=== PATIENT | female | born 1985 | race African-American/Black ===

== ENCOUNTER 2018-01-03 11:06 | Emergency (ER) | payer OTHER ==
[2018-01-03] MEDS ORDERED: METHYLPREDNISOLONE 125 MG INJ ONE (12:24)
[2018-01-03] MEDS ORDERED: LORAZEPAM 1 MG TABLET ONE (12:24)
[2018-01-03] MEDS ORDERED: MECLIZINE HCL 12.5 MG TAB ONE (12:24)
[2018-01-03] MEDS ORDERED: NA CHLORIDE 0.9% 1,000 ML ONE (12:25)
[2018-01-03 12:39] LABS: Absolute Monocytes 0.4 K/uL (0.1-1.3); Absolute Neutrophil 3.3 K/uL (1.8-8.0); Basophils % 0.8 % (0-1.3); Eosinophils % 1.5 % (0-4.4); Hematocrit 39.7 % (36.0-45.0); Lymphocytes % 34.4 % (15.3-44.8); MCH 28.7 pg (27.0-35.0); MPV 7.8 fL (7.6-11.3); Monocytes % 6.8 % (3.3-12.3); RBC Red Blood Cell Count 4.56 M/uL (3.86-4.86)
[2018-01-03 12:57] LABS: Potassium 4.1 mEq/L (3.6-5.0)
[2018-01-03 13:03] LABS: Protime INR 1.14
[2018-01-03 13:04] LABS: Albumin 3.5 g/dL (3.2-5.5); Bilirubin Direct 0.2 mg/dL (0-0.2); Bilirubin Total 0.8 mg/dL (0.3-1.2); Magnesium 1.6 mg/dL (1.8-2.5); Protein, Total 7.7 g/dL (6.0-8.3)
[2018-01-03] MEDS ORDERED: MAGNESIUM SULFATE 1 gm IVPB 1 GM/100 ML BAG IV ONE (13:15)
[2018-01-03] MEDS ORDERED: DIPHENHYDRAMINE 50 MG/ML VIAL ONE (13:47)
[2018-01-03] MEDS ORDERED: KETOROLAC 30 MG/ML INJ ONE (13:48)
[2018-01-03 14:21] LABS: Urine Blood NEGATIVE (NEG); Urine Glucose NEGATIVE (NEG); Urine Protein TRACE (NEG); Urine Specific Gravity 1.015 (1.005-1.030); Urine pH 8.5 (5.0-7.0)
--- NOTE | 2018-01-03 15:12 | EDPHYS ---
Physician Documentation [facility] Name: Alie Gee Age: 32 yrs Sex: Female : 1985 Arrival Date: 01/03/2018 Time: 11:10 Bed 19 Private MD: Karel Davis E ED Physician Behzad Valencia HPI: 01/03 11:56 This 32 yrs old Black Female presents to ER via Wheelchair with complaints of Chest ma2 Pain. 11:56 The patient or guardian reports chest pain that is located primarily in the anterior ma2 chest wall. The pain does not radiate. Associated signs and symptoms: Pertinent positives: vertigo . The chest pain is described as sharp. Duration: The patient or guardian reports a single episode, that is still ongoing, constant for 2 months, chest pain is only when she turn hear to the right, . The patient has experienced similar episodes in the past. hx of bipolar SP, and vertigo here with vertigo . 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 - Social history:: Smoking status: Patient uses tobacco products, smokes one-half pack cigarettes per day, Patient/guardian denies using alcohol, street drugs, The patient lives with family. - Ebola Screening: : Patient negative for fever greater than or equal to 101.5 degrees Fahrenheit, and additional compatible Ebola Virus Disease symptoms Patient denies exposure to infectious person Patient denies travel to an Ebola-affected area in the 21 days before illness onset No symptoms or risks identified at this time. - Family history:: not pertinent. ROS: 11:56 Cardiovascular: Positive for chest pain. ma2 11:56 MS/extremity: Positive for contusion, swelling, Negative for 11:56 All other systems are negative. 16:09 Eyes: Negative for injury, pain, redness, and discharge. ma2 Exam: 11:56 Constitutional: This is a well developed, well nourished patient who is awake, alert, ma2 and in no acute distress. Head/Face: Normocephalic, atraumatic. Chest/axilla: Normal chest wall appearance and motion. Nontender with no deformity. No lesions are appreciated. Cardiovascular: Regular rate and rhythm with a normal S1 and S2. No gallops, murmurs, or rubs. Normal PMI, no JVD. No pulse deficits. Respiratory: Lungs have equal breath sounds bilaterally, clear to auscultation and percussion. No rales, rhonchi or wheezes noted. No increased work of breathing, no retractions or nasal flaring. Abdomen/GI: Soft, non-tender, with normal bowel sounds. No distension or tympany. No guarding or rebound. No evidence of tenderness throughout. MS/ Extremity: Pulses equal, no cyanosis. Neurovascular intact. Full, normal range of motion. Neuro: Awake and alert, GCS 15, oriented to person, place, time, and situation. Cranial nerves II-XII grossly intact. Motor strength 5/5 in all extremities. Sensory grossly intact. Cerebellar exam normal. Normal gait. Vital Signs: 11:25 BP 105 / 80; Pulse 100; Resp 18 S; Temp 98.2; Pulse Ox 98% on R/A; Weight 117.93 kg; iw Height 5 ft. 6 in. (167.64 cm); Pain 8/10; 12:48 BP 114 / 52; Pulse 82; Resp 19; Pulse Ox 99% on R/A; em 13:15 BP 110 / 64; Pulse 93; Resp 18; Pulse Ox 100% on R/A; Pain 7/10; em 14:34 BP 126 / 61; Pulse 84; Resp 16; Pulse Ox 99% on R/A; Pain 5/10; em 15:35 BP 96 / 61; Pulse 88; Resp 18; Pulse Ox 97% on R/A; em 11:25 Body Mass Index 41.96 (117.93 kg, 167.64 cm) iw MDM: 11:42 Patient medically screened. ma2 11:56 Differential diagnosis: abnormal EKG, anxiety, chest wall pain, Cholelithiasis ma2 costochondritis, gastritis, gastroesophageal reflux disease (GERD), myocarditis, peptic ulcer disease, vertigo. HEART Score: History: Slightly Suspicious (0), ECG: Normal (0), Age: > or = 65 years (2), Risk Factors: > or = 3 Risk factors for atherosclerotic disease (2), Troponin:. 15:09 Data reviewed: vital signs, nurses notes, EMS record, retirement records. ED course: ana still having vertigo despite medication will admit to observation. 16:09 ED course: I attempted to Admit to Dr. Gunn for symptomatic BPV, Dr. Gunn saw the ana patient and her symptoms has resolved, able to walk . 01/03 11:55 Order name: Basic Metabolic Panel; Complete Time: 13:11 ak01/03 11:55 Order name: BNP; Complete Time: 13:11 ak01/03 11:55 Order name: CBC with Diff; Complete Time: 12:58 01/03 11:55 Order name: LFT's; Complete Time: 13:11 ak01/03 11:55 Order name: Magnesium; Complete Time: 13:11 01/03 11:55 Order name: PT-INR; Complete Time: 13:11 01/03 11:55 Order name: Ptt, Activated; Complete Time: 13:11 01/03 11:55 Order name: Troponin (emerg Dept Use Only); Complete Time: 14:23 01/03 13:30 Order name: Urine Dipstick--Ancillary (enter results); Complete Time: 14:23 01/03 13:30 Order name: Urine --Ancillary (enter results); Complete Time: 14:23 01/03 11:55 Order name: EKG; Complete Time: 11:56 01/03 11:55 Order name: Cardiac monitoring; Complete Time: 12:13 01/03 11:55 Order name: EKG - Nurse/Tech; Complete Time: 12:13 01/03 11:55 Order name: IV Saline Lock; Complete Time: 12:13 01/03 11:55 Order name: Labs collected and sent; Complete Time: 12:13 ak01/03 11:55 Order name: O2 Per Protocol; Complete Time: 12:13 01/03 11:55 Order name: O2 Sat Monitoring; Complete Time: 12:13 01/03 11:55 Order name: Urine Dipstick-Ancillary (obtain specimen); Complete Time: 12:37 ma2 Administered Medications: 12:37 Drug: NS 0.9% 1000 ml Route: IV; Rate: 1 bolus; Site: right antecubital; iw 16:00 Follow up: IV Status: Completed infusion; IV Intake: 1000ml em 12:37 Drug: Ativan 2 mg Route: PO; iw 14:00 Follow up: Response: No adverse reaction em 12:37 Drug: Meclizine 50 mg Route: PO; iw 14:01 Follow up: Response: No adverse reaction em 12:37 Drug: MethylPrednisoLONE 125 mg Route: IVP; Site: right antecubital; iw 14:01 Follow up: Response: No adverse reaction em 13:19 Drug: Magnesium Sulfate 1 grams Route: IVPB; Infused Over: 1 hrs; Site: right em antecubital; 16:00 Follow up: Response: No adverse reaction; IV Intake: 100ml em 16:00 Follow up: IV Status: Completed infusion; IV Intake: 100ml em 13:50 Drug: TORadol 30 mg Route: IVP; Site: right antecubital; iw 14:41 Follow up: Response: No adverse reaction; Pain is decreased em 13:50 Drug: Benadryl 25 mg Route: IVP; Site: right antecubital; iw 14:40 Follow up: Response: No adverse reaction em Disposition: 16:09 Chart complete. ma2 Disposition: 01/03/18 16:13 Discharged to Home. Impression: Other peripheral vertigo, left ear. - Condition is Stable. - Discharge Instructions: Vertigo, [id number]. - Prescriptions for Meclizine 25 mg Oral Tablet - take 1 tablet by ORAL route every 8 hours As needed; 30 tablet. - Medication Reconciliation Form, Thank You Letter, Antibiotic Education, Prescription Opioid Use form. - Follow up: Private Physician; When: Tomorrow; Reason: Continuance of care. - Problem is new. - Symptoms are resolved. Signatures: Dispatcher [employer] Dick Barron, MANAGER FLOOR MANAGER FLOOR em Ashli Torres, RN RN iw Behzad Valencia MD MD ma2 Corrections: (The following items were deleted from the chart) 16:12 15:11 Hospitalization Ordered by Jez Prezas DO for Observation. Preliminary ma2 diagnosis is Benign paroxysmal vertigo, left ear. Bed requested for Telemetry/MedSurg (observation). Status is Observation. Condition is Stable. Problem is new. Symptoms have improved. UTI on Admission? No. ma2 16:40 16:13 01/03/2018 16:13 Discharged to Home. Impression: Other peripheral vertigo, left em ear. Condition is Stable. Forms are Medication Reconciliation Form, Thank You Letter, Antibiotic Education, Prescription Opioid Use. Follow up: Private Physician; When: Tomorrow; Reason: Continuance of care. Problem is new. Symptoms are resolved. ma2
--- NOTE | 2018-01-03 15:12 | ER ---
Nurse's Notes [facility] Name: Alie Gee Age: 32 yrs Sex: Female : 1985 Arrival Date: 01/03/2018 Time: 11:10 Bed 19 Private MD: Karel Davis E Diagnosis: Other peripheral vertigo, left ear Presentation: 01/03 11:20 Presenting complaint: Patient states: I was diagnosed with vertigo 3 months ago, now iw her head feels "full", hard to breathe, feels pressure in frontal are, stabbing pain in chest, hears humming on left ear, states that her doctor thinks she has a tumor but is supposed to have an MRI on January 08. Transition of care: patient was not received from another setting of care. Onset of symptoms was January 03, 2018. Risk Assessment: Do you want to hurt yourself or someone else? Patient reports no desire to harm self or others. Initial Sepsis Screen: Does the patient meet any 2 criteria? No. Patient's initial sepsis screen is negative. Does the patient have a suspected source of infection? No. Patient's initial sepsis screen is negative. Care prior to arrival: None. 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 - Social history:: Smoking status: Patient uses tobacco products, smokes one-half pack cigarettes per day, Patient/guardian denies using alcohol, street drugs, The patient lives with family. - Ebola Screening: : Patient negative for fever greater than or equal to 101.5 degrees Fahrenheit, and additional compatible Ebola Virus Disease symptoms Patient denies exposure to infectious person Patient denies travel to an Ebola-affected area in the 21 days before illness onset No symptoms or risks identified at this time. - Family history:: not pertinent. Screenin:14 Abuse screen: Denies threats or abuse. Denies injuries from another. Nutritional iw screening: No deficits noted. Tuberculosis screening: No symptoms or risk factors identified. 14:02 Fall Risk None identified. em Assessment: 12:40 General: Appears in no apparent distress. uncomfortable, Behavior is cooperative, flat. em Pain: Complains of pain in chest Pain radiates to right sternocleidomastoid Pain currently is 8 out of 10 on a pain scale. Pain began 1 day ago. Neuro: Level of Consciousness is awake, alert, obeys commands, Oriented to person, place, time, situation. Cardiovascular: Capillary refill < 3 seconds Patient's skin is warm and dry. Respiratory: Airway is patent Respiratory effort is even, unlabored, Respiratory pattern is regular, symmetrical. GI: Abdomen is obese. : No signs and/or symptoms were reported regarding the genitourinary system. EENT: No signs and/or symptoms were reported regarding the EENT system. Derm: Skin is intact, Skin is pink, warm \\T\\ dry. Musculoskeletal: Range of motion: intact in all extremities. 12:55 Reassessment: I agree with above assessment by Dick Hernandez LVN. iw 13:15 Reassessment: Patient appears in no apparent distress at this time. Patient and/or em family updated on plan of care and expected duration. Pain level reassessed. Dr. Valencia at bedside discussing POC Patient states symptoms have not improved. 13:25 Reassessment: Patient appears in no apparent distress at this time. Patient and/or em family updated on plan of care and expected duration. Pain level reassessed. Patient is alert, oriented x 3, equal unlabored respirations, skin warm/dry/pink. ambulated to restroom, tolerated well. 14:30 Reassessment: Patient appears in no apparent distress at this time. Patient and/or em family updated on plan of care and expected duration. Pain level reassessed. Patient is alert, oriented x 3, equal unlabored respirations, skin warm/dry/pink. rates pain 5/10, was resting comfortably, eyes closed and difficult to arouse Patient states feeling better. 15:30 Reassessment: Patient appears in no apparent distress at this time. Patient and/or em family updated on plan of care and expected duration. Pain level reassessed. Patient is alert, oriented x 3, equal unlabored respirations, skin warm/dry/pink. ambulated to restroom, tolerated well. 15:50 Reassessment: Patient appears in no apparent distress at this time. Patient and/or em family updated on plan of care and expected duration. Pain level reassessed. Patient is alert, oriented x 3, equal unlabored respirations, skin warm/dry/pink. Dr. Gunn at bedside discussing POC. 16:15 Reassessment: Patient appears in no apparent distress at this time. pt upset about not em having MRI, refused orthostatics. Vital Signs: 11:25 BP 105 / 80; Pulse 100; Resp 18 S; Temp 98.2; Pulse Ox 98% on R/A; Weight 117.93 kg; iw Height 5 ft. 6 in. (167.64 cm); Pain 8/10; 12:48 BP 114 / 52; Pulse 82; Resp 19; Pulse Ox 99% on R/A; em 13:15 BP 110 / 64; Pulse 93; Resp 18; Pulse Ox 100% on R/A; Pain 7/10; em 14:34 BP 126 / 61; Pulse 84; Resp 16; Pulse Ox 99% on R/A; Pain 5/10; em 15:35 BP 96 / 61; Pulse 88; Resp 18; Pulse Ox 97% on R/A; em 11:25 Body Mass Index 41.96 (117.93 kg, 167.64 cm) iw ED Course: 11:10 Patient arrived in ED. mr 11:10 Karel Davis MD is Private Physician. mr 11:24 Triage completed. iw 11:25 Arm band placed on. iw 11:42 Behzad Valencia MD is Attending Physician. ma2 11:57 Dick Hernandez LVN is Primary Nurse. em 12:13 Initial lab(s) drawn, by me, sent to lab. Inserted saline lock: 20 gauge in right iw antecubital area, using aseptic technique. Blood collected. Patient maintains SpO2 saturation greater than 95% on room air. 12:17 EKG done, by ED staff, reviewed by Behzad Valencia MD. mh5 12:40 Patient has correct armband on for positive identification. Bed in low position. Call em light in reach. scrap drop engineer on. Pulse ox on. NIBP on. 14:02 No provider procedures requiring assistance completed. em 15:10 Jez Gunn DO is Hospitalizing Provider. ma2 16:30 IV discontinued, intact, bleeding controlled, No redness/swelling at site. Pressure em dressing applied. Administered Medications: 12:37 Drug: NS 0.9% 1000 ml Route: IV; Rate: 1 bolus; Site: right antecubital; iw 16:00 Follow up: IV Status: Completed infusion; IV Intake: 1000ml em 12:37 Drug: Ativan 2 mg Route: PO; iw 14:00 Follow up: Response: No adverse reaction em 12:37 Drug: Meclizine 50 mg Route: PO; iw 14:01 Follow up: Response: No adverse reaction em 12:37 Drug: MethylPrednisoLONE 125 mg Route: IVP; Site: right antecubital; iw 14:01 Follow up: Response: No adverse reaction em 13:19 Drug: Magnesium Sulfate 1 grams Route: IVPB; Infused Over: 1 hrs; Site: right em antecubital; 16:00 Follow up: Response: No adverse reaction; IV Intake: 100ml em 16:00 Follow up: IV Status: Completed infusion; IV Intake: 100ml em 13:50 Drug: TORadol 30 mg Route: IVP; Site: right antecubital; iw 14:41 Follow up: Response: No adverse reaction; Pain is decreased em 13:50 Drug: Benadryl 25 mg Route: IVP; Site: right antecubital; iw 14:40 Follow up: Response: No adverse reaction em Intake: 16:00 IV: 1000ml; Total: 1000ml. em 16:00 IV: 100ml; Total: 1100ml. em 16:00 IV: 100ml; Total: 1200ml. em Outcome: 15:11 Decision to Hospitalize by Provider. ma2 16:13 Discharge ordered by MD. ma2 16:31 Discharged to home ambulatory. em 16:31 Condition: good 16:31 Discharge instructions given to patient, Instructed on discharge instructions, follow up and referral plans. Demonstrated understanding of instructions, follow-up care, medications, Prescriptions given X 1. 16:40 Patient left the ED. em Signatures: Lena Carcamo, Dick, MANAGER PROCUREMENT MANAGER PROCUREMENT em Ashli Torres, TOLU RN Lena Franks [facility] Behzad Valencia MD MD ma2 Corrections: (The following items were deleted from the chart) 16:04 14:41 Reassessment: Patient appears in no apparent distress at this time. em em
--- NOTE | 2018-01-04 12:46 | EKG ---
Test Date: 2018-01-03 Test Time: 13:46:19 Support Service Tech: JIMENEZ MEASUREMENT RESULTS: Intervals: Rate: 82 ID: [id number] QRSD: 86 QT: 386 QTc: 450 Jeffrey: P: 60 ID: [id number] QRS: 63 T: 33 INTERPRETIVE STATEMENTS: Normal sinus rhythm Normal ECG Compared to ECG 01/03/2018 12:02:56 No significant changes Electronically Signed On 01-04-18 12:43:48 CDT by Tito Ricardo
--- NOTE | 2018-01-04 12:46 | EKG ---
Test Date: 2018-01-03 Test Time: 12:02:56 Materials And Corrosion Engineer: JIMENEZ MEASUREMENT RESULTS: Intervals: Rate: 90 WI: 146 QRSD: 82 QT: 362 QTc: 442 Gonzales: P: 64 WI: 146 QRS: 62 T: 22 INTERPRETIVE STATEMENTS: Normal sinus rhythm Normal ECG Compared to ECG 09/03/2015 18:38:22 No significant changes Electronically Signed On 01-04-18 12:43:50 CDT by Tito Ricardo
== END 2018-01-03 16:40 | disposition home or self-care (01) ==
LOC: ER 11:06
DX: H81.392 Other peripheral vertigo, left ear (principal); F17.210 Nicotine dependence, cigarettes, uncomplicated; F31.9 Bipolar disorder, unspecified; F20.9 Schizophrenia, unspecified
CPT/HCPCS: 36415; 80048; 80076; 81003; 81025; 83735; 83880; 84484; 85025; 85610; 85730; 93005; 96361; 96365; 96366; 96375; 99285; J2930; J3475; J7030

== ENCOUNTER 2021-11-25 14:48 | Emergency (ER) | payer OTHER ==
--- OUTSIDE RECORDS SUMMARY | 2021-11-25 14:52 | XMS REPORT | Continuity of Care Document ---
:1985 Author Organization [facility] t Address [address] [place] [address] Care Team Providers Name Role Phone Pcp, Does Not Have A Primary Care Physician Deuce WHITMORE Attending Clinician Unavailable Haim RICHARD, S Attending Clinician Simi RICHARD L Attending Clinician Mayra MENDEZ Attending Clinician Unavailable Payers Payer Name Policy Type Policy Number Effective Date Expiration Date Deuce paniagua [facility] [id number] 2017 00:00:00 Problems Condition Condition Condition Status Onset Resolution Last Treating Co mments Source Name Details Category Date Date Treatment Clinician Date Hemorrhagi Hemorrhagi Disease Active U nivers c ovarian c ovarian 3-30 ity of cyst cyst 00:00: [place] [address] Medical Branch Obesity Obesity Disease Active Univers (BMI (BMI 4-27 ity of 30-39.9) 30-39.9) 00:00: [place] [facility] Fibromyalg Fibromyalg Disease Active U nivers ia ia 3-10 ity of syndrome syndrome 00:00: [place] [address] Medical Branch 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 00:00: [place] virus 2) virus 2) 00 Medica l infection infection Bran ch Muscle Muscle Disease Active 2019-08 Univers spasms of spasms of 1-13 ity of both lower [place] extremit[place] extremitie 00 Me dical s s Branch Need for Need for Disease Active 2020-0 Unive rs prophylact prophylact 8- it y of ic ic 00:00: [place] vaccinatio vaccinatio 00 Me dical n against n against Bran ch hepatitis hepatitis A and A and hepatitis hepatitis B B Virilizati Virilizati Disease Active 2020-0 U nivers on on 03-13 ity of 00:00: [place] [facility] Shortness Shortness Disease Active 2020-0 Uni vers of breath of breath 5-01 ity of 00:00: [place] [facility] Acneiform Acneiform Disease Active 2020-0 Uni vers rash rash 4-21 ity of 00:00: [place] [facility] Current Current Disease Active 2020-0 Univers smoker smoker 3-27 ity of 00:00: [place] [facility] Medication Medication Disease Active 2020-0 U nivers care plan care plan 3-24 ity of discussed discussed 00:00: Donna edwards with with 00 Medical patient patient Branch Former Former Disease Active 2020-0 Univers smoker smoker 3-20 ity of 00:00: [place] 00 Medical Branch Menetrier' Menetrier' Disease Active 2020-0 U nivers s disease s disease 3-20 ity of 00:00: [place] [facility] 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, coma, 2-01 ity of chronic chronic 00:00: [place] 00 Medical Branch Right Right Disease Active 2020-0 Univers lower lower 1-22 ity of quadrant quadrant 00:00: [place] abdominal abdominal 00 Medi norma pain pain Branch Bronchitis Bronchitis Disease Active 2020-0 U nivers 1-22 ity of 00:00: [place] 00 Medical Branch Substernal Substernal Disease Active 2020-0 U nivers chest pain chest pain 1-22 it y of 00:00: [place] 00 Medical Branch Cysts of Cysts of Disease Active 2020-0 Unive rs both both 1-08 ity of ovaries ovaries 00:00: [place] 00 Medical Branch Primary Primary Disease Active 2020-0 Univers insomnia insomnia 1-03 ity of 00:00: [place] 00 Medical Branch Bipolar 1 Bipolar 1 Disease Active 2019 Uni vers disorder disorder 2-16 ity of 00:00: [place] 00 Medical Branch Nausea and Nausea and Disease Active 2019- U nivers vomiting vomiting 2-16 ity of in adult in adult 00:00: [place] patient patient 00 Medical Branch Anxiety Anxiety Disease Active 2018-08 Univers 2-16 ity of 00:00: [place] 00 Medical Branch Current Current Disease Active 2018-08 Univers moderate moderate 2-16 ity of episode of episode of [place] major major 00 Medical depressive depressive Br anch disorder, disorder, unspecifie unspecifie d whether d whether recurrent recurrent Cigarette Cigarette Disease Active 2018-08 Uni vers nicotine nicotine 2-16 ity of dependence dependence 00:[place] with other with other 00 Me dical nicotine-i nicotine-i Br anch nduced nduced disorder disorder Schizophre Schizophre Disease Active 2018-08 U nivers era with era with 2-16 ity of prominent prominent 00:[place] negative negative 00 Medica l symptoms symptoms Branch IVDU IVDU Disease Active 2018-08 Univers (intraveno (intraveno 2-16 it y of us drug us drug 00:00: [place] user) user) 00 Medical Branch Morbid Morbid Disease Active 2018-08 Univers obesity obesity 0-17 ity of with body with body 00:[place] mass index mass index 00 Me dical (BMI) of (BMI) of Branch 40.0 to 40.0 to 49.9 49.9 Allergies, Adverse Reactions, Alerts Allergy Allergy Status Severity Reaction(s) Onset Inactive Treating Comm ents Source Name Type Date Date Clinician NO KNOWN Drug Active Univers ALLERGIE Class ity of S [facility] Social History Social Habit Start Date Stop Date Quantity Comments Source History SDNE University o f Alcohol Frequency [facility] edical Branch History [facility] University o f Alcohol Std Drinks [facility] History [facility] University o f Alcohol Binge [place] [facility] History of tobacco Cigarette Smoker [facility] [place] [facility] Exposure to Unable to assess Univers ity of SARS-CoV-2 (event) [facility] Alcohol intake 2021-11-23 2021-11-23 Current drinker Unive rsity of 00:00:00 00:00:00 of alcohol [facility] (finding) [place] Alcohol Comment 2021-10-03 2021-10-03 every weekend Univer sity of 00:00:00 00:00:00 [facility] Tobacco Comment 2021-10-03 2021-10-03 Vape Universit y of 00:00:00 00:00:00 [facility] Cigarettes smoked 2017-08-27 2017-08-27 Univers ity of current (pack per 00:00:00 00:00:00 ) - Reported Branch Cigarette 2017-08-27 2017-08-27 University of pack-years 00:00:00 00:00:00 [facility] Tobacco use and 2017-08-27 2017-08-27 Current user Univers ity of exposure 00:00:00 00:00:00 [facility] Sex [birth year] Universit y of 00:00:00 00:00:00 [facility] Smoking Status Start Date Stop Date Source Current every day smoker 2017-08-27 00:00:00 Uni versity of [facility] Medications Ordered Filled Start Stop Current Ordering Indication Dosage Frequency Signature Comments Components Source Medication Medication Date Date Medication? Clinician (SIG) Name Name ketorolac No 30mg 30 mg, Unive rs (TORADOL) 11-24 Slow IV ity of injection 09:45: 09:19 Push, [place] 30 mg 00 :00 ONCE, 1 Medical dose, On [facility] 11/24/21 at 0445, Routine
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 11/24/21 at 0030, Routine ondansetron 2021- No 4mg 4 mg, Slow Univers (ZOFRAN 11-24 IV Push, ity of (PF)) 04:30: 03:45 ONCE, 1 [place] injection 4 00 :00 dose, On Medi norma mg Sat [place] 11/23/21 at 2330, UZMA FENTanyl PF 2021- No 50ug 50 mcg, Un anju (SUBLIMAZE 11-24- Slow IV ity o f (PF)) 04:30: 03:45 [place], [place] injection 00 :00 ONCE, 1 Medical 50 mcg dose, On Branch 11/23/21 at 2330, Routine iopamidol 2021- No [id number] 100mL 100 mL, Univers (ISOVUE 11-24 Intravenou ity o f 370-500 mL) 04:19: 04:19 s, ONCE, 1 [place] injection 00 :00 dose, On Medica l 100 mL Sat Branch 11/23/21 at 2330, Routine ketorolac Yes [id number] 10mg Take 1 Univers 10 mg - [id number] tablet by ity of tablet 00:00: mouth [place] 00 every 6 Medical (six) Branch hours as needed for Alternate with [place] for pain scale 4-6. HYDROcodone Yes [id number] 1{tbl} Take 1 Un anju -acetaminop 4-17 tablet by ity of hen (NORCO) 00:00: mouth [place] 10-325 mg 00 every 6 Medical tablet (six) Branch hours as needed for Pain (scale 7-10). Indication s: acute pain ibuprofen Yes [id number] 800mg Take 1 Univers 800 mg 3-31 tablet by ity of tablet 00:00: mouth [place] 00 every 8 Medical (eight) Branch hours. oxyCODONE-a 0 Yes [id number] 1{tbl} Take 1 Un anju cetaminophe 3-31 tablet by ity of n 5-325 mg 00:00: mouth [place] per tablet 00 every 6 Medica l (six) Branch hours as needed for Pain (scale 4-6). Indication s: acute pain ibuprofen Yes [id number] 800mg Take 1 Univers 800 mg 3-31 tablet by ity of tablet 00:00: mouth [place] 00 every 8 Medical (eight) Branch hours. oxyCODONE-a 0 Yes [id number] 1{tbl} Take 1 Un anju cetaminophe 3-31 tablet by ity of n 5-325 mg 00:00: mouth [place] per tablet 00 every 6 Medica l (six) Branch hours as needed for Pain (scale 4-6). Indication s: acute pain ibuprofen Yes [id number] 800mg Take 1 Univers 800 mg 3-31 tablet by ity of tablet 00:00: mouth [place] 00 every 8 Medical (eight) Branch hours. oxyCODONE-a Yes [id number] 1{tbl} Take 1 Un anju cetaminophe 3-31 tablet by ity of n 5-325 mg 00:00: mouth [place] per tablet 00 every 6 Medica l (six) Branch hours as needed for Pain (scale 4-6). Indication s: acute pain chlorhexidi Yes Univer s ne 0.12 % 1-03 ity of mouthwash 00:00: [place] [facility] chlorhexidi Yes Univer s ne 0.12 % 1-03 ity of mouthwash 00:00: [place] [facility] chlorhexidi Yes Univer s ne 0.12 % 1-03 ity of mouthwash 00:00: [place] 00 Medical Branch DULOXETINE Yes [id number] TAKE 1 Univers 20 mg 6-22 CAPSULE BY ity of capsule 00:00: MOUTH [place] 00 TWICE Medical DAILY Branch DULOXETINE Yes [id number] TAKE 1 Univers 20 mg 6-22 CAPSULE BY ity of capsule 00:00: MOUTH [place] 00 TWICE Medical DAILY Branch DULOXETINE Yes [id number] TAKE 1 Univers 20 mg 6-22 CAPSULE BY ity of capsule 00:00: MOUTH [place] 00 TWICE Medical DAILY Branch glecaprevir Yes [id number] 3{tbl} Take 3 Univers -pibrentasv 3-21 tablets by it y of ir 00:00: mouth [place] (MAVYRET) 00 daily. Medical 100-40 mg Branch buPROPion Yes [id number] 150mg Take 1 Univers SR 3-21 tablet by ity of (WELLBUTRIN 00:00: mouth [place] SR) 150 mg 00 daily. Medical SR tablet Branch benzoyl Yes [id number] Apply to Univers peroxide 3-21 area(s) 2 ity of (ACNE 00:00: (two) [place] FOAMING 00 times Medical WASH) 10 % daily. Branch external wash albuterol Yes [id number] 2{puff} Inhale 2 Univers 90 3-21 Puffs ity of mcg/actuati 00:00: every 4 [place] as on inhaler 00 (four) Medical hours as Branch needed for Wheezing or Shortness of Breath. albuterol Yes [id number] 2.5mg Inhale 3 Univers 2.5 mg /3 3-21 mL every 4 ity of mL (0.083 00:00: (four) [place] %) 00 hours as Medical nebulizer needed for Bran ch solution Wheezing or Shortness of Breath. valACYclovi Yes [id number] 1g Take 1 Univers r 1 gram 3-21 tablet by ity of tablet 00:00: mouth [place] 00 daily. Medical Branch meclizine Yes [id number] 25mg Take 1 U nivers 25 mg 3-21 tablet by ity of tablet 00:00: mouth 3 [place] 00 (three) Medical times Branch daily as needed for Dizziness. glecaprevir Yes [id number] 3{tbl} Take 3 Univers -pibrentasv 3-21 tablets by it y of ir 00:00: mouth [place] (MAVYRET) 00 daily. Medical 100-40 mg Branch buPROPion Yes [id number] 150mg Take 1 Univers SR 3-21 tablet by ity of (WELLBUTRIN 00:00: mouth [place] SR) 150 mg 00 daily. Medical SR tablet Branch benzoyl Yes [id number] Apply to Univers peroxide 3-21 area(s) 2 ity of (ACNE 00:00: (two) [place] FOAMING 00 times Medical WASH) 10 % daily. Branch external wash albuterol Yes [id number] 2{puff} Inhale 2 Univers 90 3-21 Puffs ity of mcg/actuati 00:00: every 4 [place] as on inhaler 00 (four) Medical hours as Branch needed for Wheezing or Shortness of Breath. albuterol Yes [id number] 2.5mg Inhale 3 Univers 2.5 mg /3 3-21 mL every 4 ity of mL (0.083 00:00: (four) [place] %) 00 hours as Medical nebulizer needed for Bran ch solution Wheezing or Shortness of Breath. valACYclovi Yes [id number] 1g Take 1 Univers r 1 gram 3-21 tablet by ity of tablet 00:00: mouth [place] 00 daily. Medical Branch meclizine Yes [id number] 25mg Take 1 U nivers 25 mg 3-21 tablet by ity of tablet 00:00: mouth 3 [place] 00 (three) Medical times Branch daily as needed for Dizziness. glecaprevir Yes [id number] 3{tbl} Take 3 Univers -pibrentasv 3-21 tablets by it y of ir 00:00: mouth [place] (MAVYRET) 00 daily. Medical 100-40 mg Branch buPROPion Yes [id number] 150mg Take 1 Univers SR 3-21 tablet by ity of (WELLBUTRIN 00:00: mouth [place] SR) 150 mg 00 daily. Medical SR tablet Branch benzoyl Yes [id number] Apply to Univers peroxide 3-21 area(s) 2 ity of (ACNE 00:00: (two) [place] FOAMING 00 times Medical WASH) 10 % daily. Branch external wash albuterol Yes [id number] 2{puff} Inhale 2 Univers 90 3-21 Puffs ity of mcg/actuati 00:00: every 4 [place] as on inhaler 00 (four) Medical hours as Branch needed for Wheezing or Shortness of Breath. albuterol Yes [id number] 2.5mg Inhale 3 Univers 2.5 mg /3 3-21 mL every 4 ity of mL (0.083 00:00: (four) [place] %) 00 hours as Medical nebulizer needed for Bran ch solution Wheezing or Shortness of Breath. valACYclovi Yes [id number] 1g Take 1 Univers r 1 gram 3-21 tablet by ity of tablet 00:00: mouth [place] 00 daily. Medical Branch meclizine Yes [id number] 25mg Take 1 U nivers 25 mg 3-21 tablet by ity of tablet 00:00: mouth 3 [place] 00 (three) Medical times Branch daily as needed for Dizziness. topiramate Yes 50mg Take 1 Unive rs 50 mg 3-18 tablet by ity of tablet 00:00: mouth 2 [place] 00 (two) Medical times Branch daily. topiramate 2021-0 Yes 50mg Take 1 Unive rs 50 mg 3-18 tablet by ity of tablet 00:00: mouth 2 [place] 00 (two) Medical times Branch daily. topiramate 2020-0 Yes 50mg Take 1 Unive rs 50 mg 3-18 tablet by ity of tablet 00:00: mouth 2 [place] 00 (two) Medical times Branch daily. fluticasone 2020-0 Yes [id number] 1{puff} Inhale 1 Univers propionate 1-08 Puff every ity of 110 00:00: 12 [place] mcg/actuati 00 (twelve) Medi norma on inhaler hours. Branch carBAMazepi 2020-0 Yes [id number] 400mg Take 1 Univers ne 400 mg 1-08 tablet by ity o f 12 hr 00:00: mouth 2 [place] tablet 00 (two) Medical times Branch daily. triamcinolo 2020-0 Yes [id number] Apply to Univers ne 1-08 area(s) 2 ity of acetonide 00:00: (two) [place] 0.1 % cream 00 times Medical daily. Branch tretinoin Yes [id number] 1g Apply 1 g Univers 0.075 % 1-08 to area(s) ity of Crea 00:00: at [place] 00 bedtime. Medical Branch doxepin 50 2020-0 Yes [id number] 50mg Take 1 Un anju mg capsule 1-08 capsule by ity of 00:00: mouth at [place] 00 bedtime. Medical Branch ipratropium 0 Yes [id number] .5mg Inhale 2.5 Univers 0.02 % 1-08 mL every 8 ity of nebulizer 00:00: (eight) [place] solution 00 hours as Medical needed for Branch Wheezing or Shortness of Breath. fluticasone 2020-0 Yes [id number] 1{puff} Inhale 1 Univers propionate 1-08 Puff every ity of 110 00:00: 12 [place] mcg/actuati 00 (twelve) Medi norma on inhaler hours. Branch carBAMazepi 2020-0 Yes [id number] 400mg Take 1 Univers ne 400 mg 1-08 tablet by ity o f 12 hr 00:00: mouth 2 [place] tablet 00 (two) Medical times Branch daily. triamcinolo 2020-0 Yes [id number] Apply to Univers ne 1-08 area(s) 2 ity of acetonide 00:00: (two) [place] 0.1 % cream 00 times Medical daily. Branch tretinoin 2020-0 Yes [id number] 1g Apply 1 g Univers 0.075 % 1-08 to area(s) ity of Crea 00:00: at [place] 00 bedtime. Medical Branch doxepin 50 2020-0 Yes [id number] 50mg Take 1 Un anju mg capsule 1-08 capsule by ity of 00:00: mouth at [place] 00 bedtime. Medical Branch ipratropium 2020-0 Yes [id number] .5mg Inhale 2.5 Univers 0.02 % 1-08 mL every 8 ity of nebulizer 00:00: (eight) [place] solution 00 hours as Medical needed for Branch Wheezing or Shortness of Breath. fluticasone 2020-0 Yes [id number] 1{puff} Inhale 1 Univers propionate 1-08 Puff every ity of 110 00:00: 12 [place] mcg/actuati 00 (twelve) Medi norma on inhaler hours. Branch carBAMazepi 0 Yes [id number] 400mg Take 1 Univers ne 400 mg 1-08 tablet by ity o f 12 hr 00:00: mouth 2 [place] tablet 00 (two) Medical times Branch daily. triamcinolo 2020-0 Yes [id number] Apply to Univers ne 1-08 area(s) 2 ity of acetonide 00:00: (two) [place] 0.1 % cream 00 times Medical daily. Branch tretinoin 2020-0 Yes [id number] 1g Apply 1 g Univers 0.075 % 1-08 to area(s) ity of Crea 00:00: at [place] 00 bedtime. Medical Branch doxepin 50 2020-0 Yes [id number] 50mg Take 1 Un anju mg capsule 1-08 capsule by ity of 00:00: mouth at [place] 00 bedtime. Medical Branch ipratropium 2020-0 Yes [id number] .5mg Inhale 2.5 Univers 0.02 % 1-08 mL every 8 ity of nebulizer 00:00: (eight) [place] solution 00 hours as Medical needed for Branch Wheezing or Shortness of Breath. Immunizations Ordered Filled Immunization Date Status Comments [facility] e Immunization Name Name SARS-COV-2 COVID-19 2020-11-14 Completed Unive rsity of MODERNA VACCINE 00:00:00 [facility] ical Branch SARS-COV-2 COVID-19 2020-11-14 Completed Unive rsity of MODERNA VACCINE 00:00:00 [facility] ical Branch SARS-COV-2 COVID-19 2020-11-14 Completed Unive rsity of MODERNA VACCINE 00:00:00 [facility] [place] [facility] SARS-COV-2 COVID-19 2020-10-17 Completed Unive rsity of MODERNA VACCINE 00:00:00 [facility] [place] [facility] SARS-COV-2 COVID-19 2020-10-17 Completed Unive rsity of MODERNA VACCINE 00:00:00 [facility] Branch SARS-COV-2 COVID-19 2020-10-17 Completed Unive rsity of MODERNA VACCINE 00:00:00 [facility] Vital Signs Vital Name Observation Time Observation Value Comments Source Systolic blood 2021-11-24 09:19:00 125 mm[Hg] Univer sity of pressure [facility] Diastolic blood 2021-11-24 09:19:00 81 mm[Hg] Unive rsity of pressure [facility] Heart rate 2021-11-24 09:19:00 67 /min [facility] Respiratory rate 2021-11-24 09:19:00 19 /min [facility] [place] [facility] Oxygen saturation in 2021-11-24 09:19:00 99 /min [facility] Arterial blood by [facility] Pulse oximetry [place] Body temperature 2021-11-24 03:00:00 36.78 Jodi [facility] [place] [facility] Body height 2021-11-24 03:00:00 165.1 cm [facility] Body weight 2021-11-24 03:00:00 97.523 kg [facility] BMI 2021-11-24 03:00:00 35.78 kg/m2 [facility] Systolic blood 2021-11-21 21:13:00 127 mm[Hg] Univer sity of pressure [facility] Diastolic blood 2021-11-21 21:13:00 91 mm[Hg] Unive rsity of pressure [facility] Respiratory rate 2021-11-21 20:50:00 18 /min [facility] Body height 2021-11-21 20:50:00 165.1 cm [facility] Body weight 2021-11-21 20:50:00 97.523 kg [facility] BMI 2021-11-21 20:50:00 35.78 kg/m2 [facility] Heart rate 2021-11-21 20:50:00 81 /min [facility] Body temperature 2021-11-21 20:50:00 37 Jodi [facility] Procedures Procedure Date / Time Performed Performing Clinician Sour e US OVARY TORSION 2021-11-24 08:01:43 Arianna Whitmore [facility] CT ABDOMEN PELVIS W 2021-11-24 04:24:09 Arianna Whitmore [facility] CONTRAST [facility] POCT TEST 2021-11-24 03:18:00 Arianna Whitmore [facility] LIPASE 2021-11-24 03:17:00 Arianna Whitmore [facility] COMP. METABOLIC PANEL 2021-11-24 03:17:00 Arianna Whitmore [facility] ([id number]) [facility] CBC WITH DIFF 2021-11-24 03:17:00 Arianna Whitmore [facility] URINALYSIS 2021-11-24 03:17:00 Arianna Whitmore [facility] NOTICE OF PRIVACY 2021-11-24 02:50:34 Doctor Unassigned, No [facility] PRACTICES Name [facility] CONSENT/REFUSAL FOR 2021-11-24 02:50:13 Doctor Unassigned, [facility] AND [facility] Branch TREATMENT Encounters Start End Encounter Admission Attending Care Care Encounter Source Date/Time Date/Time Type Type Clinicians Facility Department ID 2021-11-23 2021-11-24 Emergency X ASYA WHITMORE ERT [id number] Univers 22:04:00 04:27:00 ARIANNA [facility] [place] [facility] 2021-11-23 2021-11-24 Emergency ASYA Whitmore [id number] Univers 22:04:00 04:27:00 Arianna OROZCO [id number] ity of [facility] [id number] [facility] [id number] [facility] 084 Branch 2021-11-21 2021-11-21 [facility] [id number] Univers 15:30:00 16:15:19 Visit Brittany OROZCO [id number] ity of [facility] [id number] [facility] [id number] Mt dical NAL 134 Branch BUILDING 2021-11-21 2021-11-21 Outpatient R [facility] [id number] [facility] 15:30:00 16:15:19 BRITTANY isaacs [facility] Results Test Description Test Time Test Comments Results Result Comments Source Complete Metabolic Panel 2021-11-24 03:45:37 Test Item Value Reference Range Interpretation Comme nts NA (test code = 7980374312) 140 mmol/L 135-145 K (test code = 8633540946) 3.8 mmol/L 3.5-5.0 CL (test code = 9517451019) 104 mmol/L 98-108 CO2 TOTAL (test code = 24 mmol/L 23-31 3957667503) AGAP (test code = 9557407306) 2-16 BUN (test code = 5197849230) 12 mg/dL 7-23 GLUCOSE (test code = 0612116268) 94 mg/dL 70-110 CREATININE (test code = 0.92 mg/dL 0.50-1.04 3874137847) TOTAL BILI (test code = 1.0 mg/dL 0.1-1.1 6259279854) CALCIUM (test code = 8203455355) 8.9 mg/dL 8.6-10.6 T PROTEIN (test code = 8.1 g/dL 6.3-8.2 9541044846) ALBUMIN (test code = 3800430403) 4.8 g/dL 3.5-5.0 ALK PHOS (test code = 4905288720) 68 U/L 34-122 ALTv (test code = 1742-6) 19 U/L 5-35 AST(SGOT) (test code = 32 U/L 13-40 3298885023) eGFR (test code = 8618281454) mL/min/1.73m2 TYRON (test code = TYRON) Association of Glomerular Filtration Rate (GFR) and Staging of Kidney Disease* + +--------- + ----+| GFR (mL/min/1.73 m2) ?| With Kidney Damage ?| ?Without Kidney Damage+ +--- + +| ?>90 ?| ?Stage one ?| ? Normal ?+ +-------- + -----+| ?60-89 ?| ?Stage two ?| ? Decreased GFR ? + +--------- + ----+| ?30-59 ?| ?Stage three ?| ? Stage three ? + +--------- + ----+| ?15-29 ?| ?Stage four ? | ? Stage four ?+ +-------- + -----+| ?<15 (or dialysis) ? ?| ?Stage five ? | ? Stage five ?+ +-------- + -----+ *Each stage assumes the associated GFR level has been in effect for at least three months. ?Stages 1 to 5, with or without kidney disease, indicate chronic kidney disease. Notes: Determination of stages one and two (with eGFR >59mL/min/1.73 m2) requires estimation of kidney damage for at least three months as defined by structural or functional abnormalities of the kidney, manifested by either:Pathological abnormalities or Markers of kidney damage (including abnormalities in the composition of the blood or urine or abnormalities in imaging tests). [facility] [id number] 03:44:57 Test Item Value Reference Range Interpretation Comments LIPASE (test code = 2534388397) 64 U/L 0-220 Lab Interpretation (test code = Normal 93079-6) [facility] with [id number] 03:36:15 Test Item Value Reference Range Interpretation Comments WBC (test code = See_Comment [Automated 4403-2) message] The sy stem which generated this result transmitted reference range : 4.30 - 11.10 10*3/?L. The reference range was not used to interpret this result as normal/abnormal . RBC (test code = See_Comment [Automated 789-8) message] The sy stem which generated this result transmitted reference range : 3.93 - 5.25 10*6/?L. The reference range was not used to interpret this result as normal/abnormal . HGB (test code = 12.9 g/dL 11.6-15.0 718-7) HCT (test code = 38.1 % 35.7-45.2 4544-3) MCV (test code = 91.4 fL 80.6-95.5 787-2) MCH (test code = 30.9 pg 25.9-32.8 785-6) MCHC (test code = 33.9 g/dL 31.6-35.1 786-4) RDW-SD (test code = 39.5 fL 39.0-49.9 34054-1) RDW-CV (test code = 11.7 % 12.0-15.5 L 788-0) PLT (test code = See_Comment [Automated 777-3) message] The sy stem which generated this result transmitted reference range : 166 - 358 10*3/ ?L. The reference r jose was not used to interpret this result as normal/abnormal . MPV (test code = 9.2 fL 9.5-12.9 L 90347-3) NRBC/100 WBC (test See_Comment [Automat ed code = [id number]) message] The system which generated this result transmitted reference range : 0.0 - 10.0 /100 WBCs. The refer ence range was not u sed to interpret th is result as normal/abnormal . NRBC x10^3 (test code <0.01 See_Comment [Auto mated = [id number]) message] The s ystem which generated this result transmitted reference range : 10*3/?L. The reference range was not used to interpret this result as normal/abnormal . GRAN MAT (NEUT) % 42.4 % (test code = 770-8) IMM GRAN % (test code 0.80 % = [id number]) LYMPH % (test code = 45.8 % 736-9) MONO % (test code = 9.7 % 5905-5) EOS % (test code = 0.5 % 713-8) BASO % (test code = 0.8 % 706-2) GRAN MAT x10^3(ANC) 2.62 10*3/uL 1.88-7.09 (test code = 6774752063) IMM GRAN x10^3 (test 0.05 10*3/uL 0.00-0.06 code = 6203040511) LYMPH x10^3 (test code 2.83 10*3/uL 1.32-3.29 = 731-0) MONO x10^3 (test code 0.60 10*3/uL 0.33-0.92 = 742-7) EOS x10^3 (test code = 0.03 10*3/uL 0.03-0.39 711-2) BASO x10^3 (test code 0.05 10*3/uL 0.01-0.07 = 704-7) Lab Interpretation Abnormal (test code = 50461-1) [id number] Test Item Value Reference Range Interpretation Comments POCT PREG (test code = 1605) negative On board controls acceptable with positive C Line (test code = 3574) POCT PREG LOT # (test code = 3575) [id number] POCT PREG TEST DATE (test 05-09-2023 code = 3576) Lab Interpretation (test code = Normal 18261-0) [facility]"
[2021-11-25] MEDS ORDERED: ONDANSETRON 4 MG/2 ML VIAL ONE (16:22)
[2021-11-25] MEDS ORDERED: NA CHLORIDE 0.9% 1,000 ML ONE (16:22)
[2021-11-25] MEDS ORDERED: MORPHINE 2 MG/ML SYR ONE (16:22)
[2021-11-25 16:37] LABS: Absolute Lymphocytes (CBC) 2.1 K/uL (0.7-4.9); Hematocrit 35.8 % (36.0-45.0); Lymphocytes % 41.8 % (15.3-44.8); MPV 7.6 fL (7.6-11.3); RBC Red Blood Cell Count 3.89 M/uL (3.86-4.86)
[2021-11-25 16:58] LABS: ALT/SGPT 23 U/L (12-78); AST/SGOT 17 U/L (15-37); Albumin 3.5 g/dL (3.4-5.0); Alkaline Phosphatase 60 U/L (45-117); BUN Blood Urea Nitrogen 9 mg/dL (7-18); Bicarbonate 27 mmol/L (21-32); Bilirubin Total 0.4 mg/dL (0.2-1.0); Glucose Level 86 mg/dL (74-106); Lipase 87 U/L (73-393); Potassium 3.8 mmol/L (3.5-5.1); Protein, Total 7.3 g/dL (6.4-8.2); Sodium Level 141 mmol/L (136-145)
[2021-11-25 17:41] LABS: Urine Blood 1+ (Negative); Urine Glucose Trace (Negative); Urine Protein Negative (Negative); Urine Specific Gravity 1.025 (1.005-1.030)
[2021-11-25] MEDS ORDERED: KETOROLAC 30 MG/ML INJ ONE (17:47)
[2021-11-25 17:52] LABS: Urine Bacteria <20 /HPF (<20); Urine Mucus 1+ /HPF (NONE SEEN); Urine RBC <5 /HPF (NONE SEEN)
[2021-11-25 18:12] LABS: Urine Specific Gravity/Preg 1.025 (1.005-1.030)
--- NOTE | 2021-11-25 18:15 | RAD REPORT ---
EXAM DESCRIPTION: CTAbdomen Pelvis W Contrast - 11/25/2021 5:59 pm CLINICAL HISTORY: Abdominal pain. RLQ abdominal pain COMPARISON: No comparisons TECHNIQUE: Biphasic CT imaging of the abdomen and pelvis was performed with 100 ml non-ionic IV cont rast. All CT scans are performed using dose optimization technique as appropriate and may include automated exposure control or mA/KV adjustment according to patient size. FINDINGS: The lung bases are clear. The liver, spleen, pancreas, adrenal glands and kidneys are within normal limits. No bowel obstruction, free air, intra-abdominal free fluid or abscess. The appendix is normal. No e vidence of significant lymphadenopathy. No suspicious bony findings. Mild pelvic free fluid is noted which may be related to recent cyst rupture. Several right ovarian ob long shape cystic structures also noted largest measuring 3.4 cm. IMPRESSION: Small right ovarian oblong shaped cystic structures seen with mild free fluid the pelvis . These findings may indicate recent cyst rupture.
--- NOTE | 2021-11-25 19:20 | RAD REPORT ---
EXAM DESCRIPTION: US - Transvaginal Study Probe - 11/25/2021 7:10 pm CLINICAL HISTORY: right lower abdomen pain Pelvic pain. COMPARISON: No comparisons FINDINGS: The uterus is normal in size, shape and echotexture. The uterus measures 11.4 x 6.5 x 4.6 cm. The endometrial stripe measures 9 mm, normal. Both ovaries are normal in size, shape and echotexture. The right ovary measures 4.9 x 3.1 x 2.5 cm. The left ovary measures 2.9 x 2.0 x 1.7 cm. Several right ovarian follicles are noted the largest m easuring 2.5 cm. No adnexal masses. Normal Doppler blood flow was demonstrated to both ovaries. Mild pelvic free fluid. IMPRESSION: Several right ovarian follicles noted, largest measuring 2.5 cm.
[2021-11-25] MEDS ORDERED: MORPHINE 4 MG/ML SYR ONE (19:57)
[2021-11-25] MEDS ORDERED: CEFTRIAXONE 1000 MG/VIAL ONE (20:32)
[2021-11-25] MEDS ORDERED: AZITHROMYCIN 250 MG TAB ONE (20:32)
[2021-11-25] MEDS ORDERED: NA CHLORIDE 0.9% 50 ML ONE (20:32)
--- NOTE | 2021-11-25 20:35 | ER ---
Nurse's Notes [facility] Name: Alie Gee Age: 36 yrs Sex: Female : 1985 Arrival Date: 11/25/2021 Time: 14:50 Bed 6 Private MD: Diagnosis: Female pelvic inflammatory disease, unspecified Presentation: 11/25 15:56 Chief complaint: Patient states: RLQ pain x 2 days, denies N/V/D or constipation, also ph denies fever or chills. Chief complaint: Patient states: SO states that pt was seen at [facility] 2 days ago and dx w/ ruptured ovarian cyst. Coronavirus screen: Vaccine status: Patient reports receiving the 2nd dose of the covid vaccine. Ebola Screen: No symptoms or risks identified at this time. Initial Sepsis Screen: Does the patient meet any 2 criteria? No. Patient's initial sepsis screen is negative. Does the patient have a suspected source of infection? No. Patient's initial sepsis screen is negative. Risk Assessment: Do you want to hurt yourself or someone else? Patient reports no desire to harm self or others. Onset of symptoms was November 25, 2021. 15:56 Method Of Arrival: Ambulatory ph 15:56 Acuity: CAROLYN 3 ph Triage Assessment: 15:59 General: Appears in no apparent distress. Behavior is calm, cooperative, appropriate ph for age. Pain: Complains of pain in right lower quadrant. Neuro: No deficits noted. Musculoskeletal: No deficits noted. 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 - Social history:: Smoking status: Patient reports the use of cigarette tobacco products, smokes one-half pack cigarettes per day. Screenin:13 Abuse screen: Denies threats or abuse. Nutritional screening: No deficits noted. ap3 Tuberculosis screening: No symptoms or risk factors identified. Fall Risk None identified. Assessment: 16:14 GI: Bowel sounds present X 4 quads. Abd is soft X 4 quads Abdomen is tender to ap3 palpation in right lower quadrant. 17:46 Reassessment: Patient and/or family updated on plan of care and expected duration. Pain ap3 level reassessed. Patient is alert, oriented x 3, equal unlabored respirations, skin warm/dry/pink. Patient states symptoms have not improved. 18:31 Reassessment: Patient and/or family updated on plan of care and expected duration. Pain ap3 level reassessed. Patient is alert, oriented x 3, equal unlabored respirations, skin warm/dry/pink. 18:44 Reassessment: ultrasound at the bedside. ap3 19:35 Reassessment: Patient and/or family updated on plan of care and expected duration. Pain sm5 level reassessed. Patient is alert, oriented x 3, equal unlabored respirations, skin warm/dry/pink. 20:51 Reassessment: No changes from previously documented assessment. sm5 Vital Signs: 15:56 BP 113 / 82; Pulse 68; Resp 18; Temp 99.0; Pulse Ox 100% on R/A; Weight 96.62 kg; ph Height 5 ft. 5 in. (165.10 cm); 17:46 BP 139 / 74; Pulse 71; ap3 19:33 BP 151 / 100; Pulse 55; Resp 17; Pulse Ox 100% on R/A; sm5 20:51 BP 147 / 87; Pulse 56; Resp 16; Pulse Ox 99% on R/A; sm5 15:56 Body Mass Index 35.44 (96.62 kg, 165.10 cm) ph ED Course: 14:50 Patient arrived in ED. ds1 15:07 Eligio Jackson PA is PHCP. cp 15:07 Miky Rashid DO is Attending Physician. cp 15:59 Triage completed. ph 15:59 Arm band placed on Patient placed in an exam room. ph 16:02 Sonal Cuba, TOLU is Primary Nurse. jh6 16:14 Patient has correct armband on for positive identification. Bed in low position. Call ap3 light in reach. Side rails up X 1. Adult w/ patient. 16:25 Inserted saline lock: 20 gauge in right antecubital area, using aseptic technique. ap3 Blood collected. 18:01 CT Abd/Pelvis - IV Contrast Only In Process Unspecified. EDMS 18:32 Nurse Practitioner and/or Physician Ur Coordinator to see patient. ap3 19:11 Transvaginal Study Probe In Process Unspecified. EDMS 20:21 Wet Prep Sent. sm5 20:21 GC (GONORR/CHLAMYDIA) Probe Sent. sm5 20:21 Assist provider with pelvic exam: Set up pelvic tray. Performed by Eligio ALMAGUER 5 Specimens sent to lab. Patient tolerated well. 20:32 Theo Brown MD is Attending Physician. cp 20:32 Roxanna Cox MD is Referral Physician. cp 20:51 IV discontinued, intact, bleeding controlled, No redness/swelling at site. Pressure sm5 dressing applied. Administered Medications: 16:34 Drug: morphine 2 mg Route: IVP; Site: right antecubital; ap3 17:41 Follow up: Response: No adverse reaction; Pain is unchanged, physician notified ap3 16:35 Drug: NS 0.9% 1000 ml Route: IV; Rate: 1 bolus; Site: right antecubital; ap3 16:35 Drug: Zofran (Ondansetron) 4 mg Route: IVP; Site: right antecubital; ap3 17:41 Follow up: Response: No adverse reaction ap3 17:46 Drug: Ketorolac 15 mg Route: IVP; Site: right antecubital; ap3 18:43 Follow up: Response: No adverse reaction ap3 19:56 Drug: morphine 4 mg Route: IVP; Site: right antecubital; sm5 20:52 Follow up: Response: Pain is unchanged, physician notified sm5 20:39 Drug: Rocephin (cefTRIAXone) 1 grams Route: IV; Rate: calculated rate; Site: right sm5 antecubital; 20:49 Follow up: Response: No adverse reaction; IV Status: Completed infusion; IV Intake: [id number] 20:39 Drug: Zithromax (azithromycin) 1 grams Route: PO; sm5 20:52 Follow up: Response: No adverse reaction sm5 20:39 Drug: HYDROcodone-acetaminophen 10 mg-325 mg 1 tabs Route: PO; sm5 20:52 Follow up: Response: Medication administered at discharge. sm5 Intake: 20:49 IV: 50ml; Total: 50ml. sm5 Outcome: 20:34 Discharge ordered by . cp 20:51 Discharged to home ambulatory, with family. sm5 20:51 Condition: stable 20:51 Discharge instructions given to patient, family, Instructed on discharge instructions, follow up and referral plans. no drinking with medication, medication usage, Demonstrated understanding of instructions, follow-up care, medications, Prescriptions given X 4. 20:53 Patient left the ED. sm5 Signatures: Dispatcher [employer] EDWI Esme Graves ds1 Shayy Baires, RN RN Eligio Sol PA PA cp Prokisch, Amanda, RN RN ap3 Sonal Cuba RN RN jh6 Jayda Lopez RN RN sm5 Corrections: (The following items were deleted from the chart) 16:34 16:14 No provider procedures requiring assistance completed. ap3 ap3
--- NOTE | 2021-11-25 20:35 | EDPHYS ---
Physician Documentation [facility] Name: Alie Gee Age: 36 yrs Sex: Female : 1985 Arrival Date: 11/25/2021 Time: 14:50 Bed 6 Private MD: ED Physician Theo Brown HPI: 11/25 16:20 This 36 yrs old Black Female presents to ER via Ambulatory with complaints of Abdominal cp Pain. 16:20 The patient presents with abdominal pain right lower quadrant. cp 16:20 Onset: The symptoms/episode began/occurred 2 day(s) ago. cp 16:20 The symptoms do not radiate. cp 16:20 Associated signs and symptoms: Pertinent positives: vaginal discharge, vaginal cp bleeding, Pertinent negatives: anorexia, blood in stools, constipation, dysuria, fever, hematuria, nausea, vomiting. The symptoms are described as constant. 16:20 The patient has been recently seen by a physician: in [facility], [place], 2 day(s) ago, with cp similar presenting complaints, and apparently given a diagnosis of ruptured ovarian cyst. 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 - Social history:: Smoking status: Patient reports the use of cigarette tobacco products, smokes one-half pack cigarettes per day. ROS: 16:30 Abdomen/GI: Positive for abdominal pain, of the right lower quadrant, Negative for cp vomiting, diarrhea, constipation. 16:30 Eyes: Negative for injury, pain, redness, and discharge. cp 16:30 Constitutional: Negative for body aches, chills, fever, poor PO intake. 16:30 ENT: Negative for drainage from ear(s), ear pain, sore throat, difficulty swallowing, difficulty handling secretions. 16:30 Cardiovascular: Negative for chest pain, palpitations. 16:30 Respiratory: Negative for cough, shortness of breath, wheezing. 16:30 Back: Positive for radiated pain, of the low back area, Negative for injury or acute deformity. 16:30 : Positive for vaginal bleeding, vaginal discharge, Negative for urinary symptoms. 16:30 All other systems are negative. Exam: 16:35 Constitutional: The patient appears in no acute distress, alert, awake, cp non-diaphoretic, non-toxic, well developed, well nourished, uncomfortable. 16:35 Head/Face: Normocephalic, atraumatic. cp 16:35 Eyes: Periorbital structures: appear normal, Conjunctiva: normal, no exudate, no injection, Sclera: no appreciated abnormality, Lids and lashes: appear normal, bilaterally. 16:35 ENT: External ear(s): are unremarkable, Nose: is normal, Mouth: Lips: moist, Oral mucosa: moist, Posterior pharynx: Airway: no evidence of obstruction, patent. 16:35 Chest/axilla: Inspection: normal. 16:35 Cardiovascular: Rate: normal, Rhythm: regular. 16:35 Respiratory: the patient does not display signs of respiratory distress, Respirations: normal, no use of accessory muscles, no retractions, labored breathing, is not present, Breath sounds: are clear throughout, no decreased breath sounds, no stridor, no wheezing. 16:35 Abdomen/GI: Inspection: abdomen appears normal, Bowel sounds: active, all quadrants, Palpation: soft, in all quadrants, severe abdominal tenderness, in the right lower quadrant, rebound tenderness, is not appreciated, voluntary guarding, is elicited in the right lower quadrant. 16:35 Back: pain, that is moderate, of the low back area, ROM is painful, with all movement. 16:35 Neuro: Orientation: to person, place \T\ time. Mentation: is normal, Motor: moves all fours, strength is normal, Sensation: is normal. 19:30 : Pelvic Exam: External exam: is normal, Speculum exam: no bleeding is noted, no cp tissue in cervix is seen, no tissue in vagina is seen, bimanual exam reveals cervical motion tenderness, discharge, white, the nurse was present for the exam, Sexual behavior: the patient is sexually active. 19:30 Skin: cellulitis, is not appreciated, no rash present. cp Vital Signs: 15:56 BP 113 / 82; Pulse 68; Resp 18; Temp 99.0; Pulse Ox 100% on R/A; Weight 96.62 kg; ph Height 5 ft. 5 in. (165.10 cm); 17:46 BP 139 / 74; Pulse 71; ap3 19:33 BP 151 / 100; Pulse 55; Resp 17; Pulse Ox 100% on R/A; sm5 20:51 BP 147 / 87; Pulse 56; Resp 16; Pulse Ox 99% on R/A; sm5 15:56 Body Mass Index 35.44 (96.62 kg, 165.10 cm) ph MDM: 16:11 Patient medically screened. cp 17:00 Differential diagnosis: appendicitis, non-specific abd pain, Ovarian Torsion, Pelvic cp Inflammatory Disease, Pyelonephritis, Tubal Ovarian Abcess, Ureterolithiasis, urinary tract infection. 20:33 Data reviewed: vital signs, nurses notes, lab test result(s), radiologic studies, CT cp scan, ultrasound. 20:33 Counseling: I had a detailed discussion with the patient and/or guardian regarding: the cp historical points, exam findings, and any diagnostic results supporting the discharge/admit diagnosis, lab results, radiology results, the need for outpatient follow up, an OB/Gyne specialist, to return to the emergency department if symptoms worsen or persist or if there are any questions or concerns that arise at home. Response to treatment: the patient's symptoms have markedly improved after treatment, VSS. Radiology studies negative for surgical findings. Pain improved with meds. Will discharge to home for continued monitoring. 11/25 16:14 Order name: CBC with Diff; Complete Time: 17:11 cp 11/25 17:11 Interpretation: Normal except: HCT 35.8; MCV 92.2. cp 11/25 16:14 Order name: CMP; Complete Time: 17:11 cp 11/25 16:14 Order name: Lipase; Complete Time: 17:11 cp 11/25 16:14 Order name: Urine Microscopic Only; Complete Time: 18:30 cp 11/25 18:30 Interpretation: Normal except: SQEPI 5-10. cp 11/25 17:40 Order name: Urine --Ancillary (enter results); Complete Time: 18:30 bd 11/25 17:41 Order name: Urine Dipstick-Ancillary; Complete Time: 18:30 EDMS 11/25 18:30 Interpretation: Normal except: UBLD 1+. cp 11/25 16:14 Order name: CT Abd/Pelvis - IV Contrast Only; Complete Time: 18:30 cp 11/25 18:34 Order name: GC (GONORR/CHLAMYDIA) Probe cp 04/18 18:34 Order name: Wet Prep cp 11/25 18:42 Order name: Transvaginal Study Probe; Complete Time: 19:39 EDMS 11/25 19:39 Interpretation: Report reviewed. 11/25 16:14 Order name: IV Saline Lock; Complete Time: 16:35 cp 11/25 16:14 Order name: Labs collected and sent; Complete Time: 16:35 cp 11/25 16:14 Order name: Urine Dipstick-Ancillary (obtain specimen); Complete Time: 17:41 cp 11/25 16:14 Order name: Urine Test (obtain specimen); Complete Time: 17:41 cp 11/25 18:34 Order name: Pelvic Exam Setup; Complete Time: 18:36 cp Administered Medications: 16:34 Drug: morphine 2 mg Route: IVP; Site: right antecubital; ap3 17:41 Follow up: Response: No adverse reaction; Pain is unchanged, physician notified ap3 16:35 Drug: NS 0.9% 1000 ml Route: IV; Rate: 1 bolus; Site: right antecubital; ap3 16:35 Drug: Zofran (Ondansetron) 4 mg Route: IVP; Site: right antecubital; ap3 17:41 Follow up: Response: No adverse reaction ap3 17:46 Drug: Ketorolac 15 mg Route: IVP; Site: right antecubital; ap3 18:43 Follow up: Response: No adverse reaction ap3 19:56 Drug: morphine 4 mg Route: IVP; Site: right antecubital; sm5 20:52 Follow up: Response: Pain is unchanged, physician notified 5 20:39 Drug: Rocephin (cefTRIAXone) 1 grams Route: IV; Rate: calculated rate; Site: right sm5 antecubital; 20:49 Follow up: Response: No adverse reaction; IV Status: Completed infusion; IV Intake: [id number] 20:39 Drug: Zithromax (azithromycin) 1 grams Route: PO; sm5 20:52 Follow up: Response: No adverse reaction sm5 20:39 Drug: HYDROcodone-acetaminophen 10 mg-325 mg 1 tabs Route: PO; sm5 20:52 Follow up: Response: Medication administered at discharge. cox monett Disposition: 22:30 Co-signature as Attending Physician, Theo Brown MD I agree with the assessment and kdr plan of care. Disposition Summary: 11/25/21 20:34 Discharge Ordered Location: Home cp Problem: new cp Symptoms: have improved cp Condition: Stable cp Diagnosis - Female pelvic inflammatory disease, unspecified cp Followup: cp - With: Roxanna Cox MD - When: 2 - 3 days - Reason: Recheck today's complaints Discharge Instructions: - Pelvic Inflammatory Disease cp - Pelvic Pain, Female cp - Discharge Summary Sheet ap3 Forms: - SBAR form ap3 - Medication Reconciliation Form cp - Thank You Letter cp - Antibiotic Education cp - Prescription Opioid Use cp Prescriptions: - Naprosyn 500 mg Oral Tablet - take 1 tablet by ORAL route 2 times per day take with food; 20 tablet; Refills: cp 0, Product Selection Permitted - Doxycycline Hyclate 100 mg Oral Tablet - take 1 tablet by ORAL route every 12 hours; 20 tablet; Refills: 0, Product cp Selection Permitted - Metronidazole 500 mg Oral Tablet - take 1 tablet by ORAL route every 8 hours; 30 tablet; Refills: 0, Product cp Selection Permitted - Tylenol-Codeine #3 300 mg-30 mg Oral - take 2 tablet by ORAL route every 8-10 hours; 15 tablet; Refills: 0, Product cp Selection Permitted Signatures: Dispatcher [employer] EDMS Theo Brown MD MD kdr Hall, Patricia RN RN ph Eligio Jackson PA PA cp Malena Zayas RN RN ap3 Jayda Lopez RN RN sm5 Corrections: (The following items were deleted from the chart) 18:42 18:31 Transvaginal Ob+US.RAD.BRZ ordered. EDDC EDMS 11/26 20:40 11/25 16:30 Abdomen/GI: Positive for abdominal pain, of the right lower quadrant and cp left lower quadrant, Negative for vomiting, diarrhea, constipation, cp
[2021-11-25] MEDS ORDERED: HYDROCODONE/APAP 10/325 TAB ONE (20:39)
[2021-11-26 03:15] VITALS: TEMP 99
[2021-11-26 03:19] VITALS: BP 147/87; O2SAT 99
== END 2021-11-25 20:53 | disposition home or self-care (01) ==
LOC: ER 14:48
DX: N73.9 Female pelvic inflammatory disease, unspecified (principal); F17.210 Nicotine dependence, cigarettes, uncomplicated
CPT/HCPCS: 85025; 36415; 81025; 87210; 83690; 80053; 87590; 87490; 74177; 76830; 96375; 96374; 99284; Q9967; J2270; J7030; J2405; 81003; 81015

== ENCOUNTER 2023-01-15 20:04 | Emergency (ER) | payer OTHER ==
--- OUTSIDE RECORDS SUMMARY | 2023-01-15 20:22 | XMS REPORT | Continuity of Care Document ---
:1985 Author Organization [facility] t Address [address] [facility] [address] [place] [address] Care Team Providers Name Role Phone PCP, PATIENT DOES NOT HAVE A Primary Care Physician Unavaila CHEIKH Ortiz Attending Clinician Unavailable FRANNIE SMITH Attending Clinician Unavailable DENISE CORTEZ Attending Clinician Unavailable Only, Aurelio Flores Test Attending Clinician Unavailable Unknown, Attending Attending Clinician Unavailable NII BONILLA Attending Clinician Unavailable Nii Bonilla MD Attending Clinician [phone] CIARRA FRANK Attending Clinician Unavailable Ernesto Zhuya S Attending Clinician ADELINE WILLIAM Attending Clinician Unavailable LIZANDRO DEL TORO Attending Clinician Unavailable Lizandro Rodriguez Attending Clinician BRITTANY BELCHER Attending Clinician Unavailable AUGUSTO ESTRADA Attending Clinician Unavailable NATALIE ALMENDAREZ Attending Clinician Unavailable Natalie Mills Attending Clinician Nurse, Aurelio Flores [facility] Attending Clinician Unavailable Francis Valentin Attending Clinician FRANCIS BOWER Attending Clinician Unavailable Xochitl Kaur RN Attending Clinician Unavailable SHANNAN STEWARD Attending Clinician Unavailable Shannan Avina Attending Clinician Provider, Ang [facility] Attending Clinician Unavailable Vaccine, Ang Db Cbc Fam Attending Clinician Unavailable Dominic Peralta DO Attending Clinician DOMINIC PERALTA Attending Clinician Unavailable Sera Martinez Attending Clinician SERA WORTHY Attending Clinician Unavailable ARIANNA WHITMORE Attending Clinician Unavailable Arianna Whitmore MD Attending Clinician Brittany Belcher MD Attending Clinician Micheal Mayer DO Attending Clinician GAMALIEL GREER III Attending Clinician Unavailable Susana DANIELS Attending Clinician Unavailable Susana Avelar Attending Clinician Doctor Unassigned, [facility] [place] Attending Clinician Unavailable Provider, Urgent Care Day Attending Clinician Unavailable JOJO MINOR Attending Clinician Unavailable Iván SHIRLEY, Jojo Attending Clinician Malena Garcia MD Attending Clinician Tomasa Chaidez Attending Clinician Mode MOTLEY, Kaley Roberts Attending Clinician Unavailable TOMASA WILLIAM Attending Clinician Unavailable TRUPTI COOPER Attending Clinician Unavailable VIDYA BUENO Attending Clinician Unavailable VIDYA BUENO Attending Clinician Unavailable TORY SAMPSON Attending Clinician Unavailable KEHINDE PATTERSON Attending Clinician Unavailable RAYO VAUGHN Attending Clinician Unavailable IVAN ROBERTSON Attending Clinician Unavailable AGUSTO DARLING Attending Clinician Unavailable AGUSTO DARLING Attending Clinician Unavailable NEAL OROZCO Attending Clinician Unavailable ANTONETTE ONRMAN Attending Clinician Unavailable ALBA VALENTINE Attending Clinician Unavailable Cheikh Boyle MD Attending Clinician [facility], Adc Cardio Fac Attending Clinician Unavailable 2, Adc Cardio Fac Room Attending Clinician Unavailable Rafael RICHARD, Nicanor Attending Clinician Frannie Smith PA-C Attending Clinician Melisa Perez PT Attending Clinician Unavailable Kyle Ortiz MD Attending Clinician MICHEAL MAYER Attending Clinician Unavailable Gamaliel Johnson MD Attending Clinician Filomena Torres DO Attending Clinician NII BONILLA Admitting Clinician Unavailable CIARRA FRANK Admitting Clinician Unavailable NATALIE ALMENDAREZ Admitting Clinician Unavailable ARIANNA WHITMORE Admitting Clinician Unavailable BRITTANY BELCHER Admitting Clinician Unavailable Brittany Belcher MD Admitting Clinician Susana DANIELS Admitting Clinician Unavailable CHEIKH BOYLE Admitting Clinician Unavailable MICHEAL MAYER Admitting Clinician Unavailable Payers Payer Name Policy Type Policy Number Effective Date Expiration Date Deuce paniagua [facility] NATASHA [id number] 2017 00:00:00 Problems Condition Condition Condition Status Onset Resolution Last Treating Co mments Source Name Details Category Date Date Treatment Clinician Date Hemorrhagi Hemorrhagi Disease Active U nivers c ovarian c ovarian 3-30 ity of cyst cyst 00:00: [place] [address] Medical Branch Obesity Obesity Disease Active Univers (BMI (BMI 4-27 ity of 30-39.9) 30-39.9) 00:00: [address] Branch Fibromyalg Fibromyalg Disease Active U nivers ia ia 3-10 ity of syndrome syndrome 00:00: [address] Branch 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 00:00: [place] virus 2) virus 2) 00 Medica l infection infection Bran ch Muscle Muscle Disease Active 2019-08 Univers spasms of spasms of 1-13 ity of both lower both lower 00:[place] extremit[place] extremitie 00 Me dical s s Branch Need for Need for Disease Active Unive rs prophylact prophylact 03-15 it y of ic ic 00:00: [place] vaccinatio vaccinatio 00 Me dical n against n against Bran ch hepatitis hepatitis A and A and hepatitis hepatitis B B Virilizati Virilizati Disease Active 2020- U nivers on on 03-13 ity of 00:00: [place] 00 Medical Branch Shortness Shortness Disease Active 2020-0 Uni vers of breath of breath 5-01 ity of 00:00: [place] 00 Medical Branch Acneiform Acneiform Disease Active 2020-0 Uni vers rash rash 4-21 ity of 00:00: [place] 00 Medical Branch Current Current Disease Active 2020-0 Univers smoker smoker 3-27 ity of 00:00: [place] 00 Medical Branch Medication Medication Disease Active 2020-0 U nivers care plan care plan 3-24 ity of discussed discussed 00:00: Donna edwards with with 00 Medical patient patient Branch Former Former Disease Active 2020-0 Univers smoker smoker 3-20 ity of 00:00: [place] 00 Medical Branch Menetrier' Menetrier' Disease Active 2020-0 U nivers s disease s disease 3-20 ity of 00:00: [place] Medical Branch 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, coma, 2-01 ity of chronic chronic 00:00: [place] 00 Medical Branch Right Right Disease Active 2020-0 Univers lower lower 1-22 ity of quadrant quadrant 00:00: [place] abdominal abdominal 00 Medi norma pain pain Branch Bronchitis Bronchitis Disease Active 2020-0 U nivers 1-22 ity of 00:00: [place] 00 Medical Branch Substernal Substernal Disease Active 2020-0 U nivers chest pain chest pain 1-22 it y of 00:00: [place] 00 Medical Branch Cysts of Cysts of Disease Active 2020-0 Unive rs both both 1-08 ity of ovaries ovaries 00:00: [place] 00 Medical Branch Primary Primary Disease Active 2020-0 Univers insomnia insomnia 1-03 ity of 00:00: [place] Medical Branch Bipolar 1 Bipolar 1 Disease Active 2019- Uni vers disorder disorder 2-16 ity of 00:00: [place] 00 Medical Branch Nausea and Nausea and Disease Active 2019- U nivers vomiting vomiting 2-16 ity of in adult in adult 00:00: [place] patient patient 00 Medical Branch Anxiety Anxiety Disease Active 2019- Univers 2-16 ity of 00:00: [place] 00 Medical Branch Current Current Disease Active 2019- Univers moderate moderate 2-16 ity of episode [...] Active Univers ALLERGIE Class ity of S [facility] Social History Social Habit Start Date Stop Date Quantity Comments Source History SDWV University o f Alcohol Frequency [facility] Branch History [place] University o f Alcohol Std Drinks [facility] History [facility] University o f Alcohol Binge [facility] Branch History of tobacco Cigarette Smoker University of use [facility] Exposure to 2022-08-06 2022-08-16 Not sure University of SARS-CoV-2 (event) 00:00:00 11:23:00 [facility] Alcohol intake 2022-05-12 2022-05-12 Current drinker Unive rsity of 00:00:00 00:00:00 of alcohol [facility] (finding) [place] Tobacco Comment 2022-02-17 2022-02-17 Vape Universit y of 00:00:00 00:00:00 [facility] Cigarettes smoked 2022-02-17 2022-02-17 Univers ity of current (pack per 00:00:00 00:00:00 [facility] ) - Reported Branch Cigarette 2022-02-17 2022-02-17 University of pack-years 00:00:00 00:00:00 [facility] Tobacco use and 2022-02-17 2022-02-17 User of Universit y of exposure 00:00:00 00:00:00 smokeless [facility] Alcohol Comment 2021-10-03 2021-10-03 every weekend Univer sity of 00:00:00 00:00:00 [facility] Sex [birth year] Universit y of 00:00:00 00:00:00 [facility] Smoking Status Start Date Stop Date Source Smokes tobacco daily 2022-02-17 00:00:00 [facility] ity [facility] Medications Ordered Filled Start Stop Current Ordering Indication Dosage Frequency Signature Comments Components Source Medication Medication Date Date Medication? Clinician (SIG) Name Name neomycin-po Yes [id number] 4[drp] Place 4 Univers lymyxin-hyd 8-15 Drops in ity of rocortisone 00:00: right ear [place] otic 00 4 (four) Medical solution times Branch daily. neomycin-po Yes [id number] 4[drp] Place 4 Univers lymyxin-hyd 8-15 Drops in ity of rocortisone 00:00: right ear [place] otic 00 4 (four) Medical solution times Branch daily. neomycin-po Yes [id number] 4[drp] Place 4 Univers lymyxin-hyd 8-15 Drops in ity of rocortisone 00:00: right ear [place] otic 00 4 (four) Medical solution times Branch daily. neomycin-po Yes [id number] 4[drp] Place 4 Univers lymyxin-hyd 8-15 Drops in ity of rocortisone 00:00: right [place] otic 00 4 (four) Medical solution times Branch daily. amoxicillin 2021- No [id number] 875mg Take 1 Univers 875 mg 8-15 - tablet by ity of tablet 00:00: 04:59 mouth in [place] 00 :00 the [facility] morning Branch and 1 tablet in the evening. Do all this for 7 days. iopamidol 2021- No [id number] 55mL 55 mL, Univers (ISOVUE 02-18 Intravenou ity o f 370-500 mL) 01:45: 01:45 s, ONCE, 1 [place] injection 00 :00 dose, On Medica l 55 mL Mon Branch 02/17/22 at 2045, Routine ketorolac 2021- No 15mg 15 mg, Unive rs (TORADOL) 02-18 Slow IV ity of injection 01:45: 01:15 Push, [place] 15 mg 00 :00 ONCE, 1 Medical dose, On Branch 02/17/22 at 2045, UZMA HYDROcodone 2021- No 1{tbl} 1 tablet, Univers -acetaminop 02-18 Oral, ONCE i ty of hen (NORCO) 01:00: 00:20 NOW, 1 [place] as 10-325 mg 00 :00 dose, On Medica l tablet 1 Mon Branch tablet 02/17/22 at 2000, Routine ibuprofen 2021-0 Yes [id number] 600mg Take 1 Univers 600 mg 7-11 tablet by ity of tablet 00:00: mouth [place] 00 every 6 Medical (six) Branch hours as needed for Pain (scale 4-6). ibuprofen 2021-0 Yes [id number] 600mg Take 1 Univers 600 mg 7-11 tablet by ity of tablet 00:00: mouth [place] 00 every 6 Medical (six) Branch hours as needed for Pain (scale 4-6). ibuprofen 2021-0 Yes [id number] 600mg Take 1 Univers 600 mg 7-11 tablet by ity of tablet 00:00: mouth [place] 00 every 6 Medical (six) Branch hours as needed for Pain (scale 4-6). ibuprofen 2021-0 Yes [id number] 600mg Take 1 Univers 600 mg 7-11 tablet by ity of tablet 00:00: mouth [place] 00 every 6 Medical (six) Branch hours as needed for Pain (scale 4-6). ibuprofen 2021-0 Yes [id number] 600mg Take 1 Univers 600 mg 7-11 tablet by ity of tablet 00:00: mouth [place] 00 every 6 Medical (six) Branch hours as needed for Pain (scale 4-6). ketorolac 0 2021- No 30mg 30 mg, Unive rs (TORADOL) 11-24 Slow IV ity of injection 09:45: 09:19 Push, [place] 30 mg 00 :00 ONCE, 1 Medical dose, On Branch 11/24/21 at 0445, Routine
pricing/signage team member approving Restricted medication : ARIANNA WHITMORE morpHINE 2021-2021- No 4mg 4 mg, Slow Un anju injection 11-24 IV Push, ity of mg 08:15: 08:03 ONCE, 1 [place] 00 :00 dose, On Medical Sun Branch 11/24/21 at 0315, STAT FENTanyl PF 2021- No 50ug 50 mcg, Un anju (SUBLIMAZE 11-24 Slow IV ity o f (PF)) 05:16: 05:20 Push, [place] injection 00 :00 ONCE, 1 Medical 50 mcg dose, On Branch 11/24/21 at 0030, Routine ondansetron 2021- No 4mg 4 mg, Slow Univers (ZOFRAN 11-24 IV Push, ity of (PF)) 04:30: 03:45 ONCE, 1 [place] injection 4 00 :00 dose, On Medi norma mg Sat Branch 11/23/21 at 2330, UZMA FENTanyl PF 2021- No 50ug 50 mcg, Un anju (SUBLIMAZE 11-24 Slow IV ity o f (PF)) 04:30: 03:45 [place], [place] injection 00 :00 ONCE, 1 Medical 50 mcg dose, On Branch 11/23/21 at 2330, Routine iopamidol 2021- No [id number] 100mL 100 mL, Univers (ISOVUE 11-24 Intravenou ity o f 370-500 mL) 04:19: 04:19 s, ONCE, 1 [place] injection 00 :00 dose, On Medica l 100 mL Sat Branch 11/23/21 at 2330, Routine ketorolac 2021-0 Yes [id number] 10mg Take 1 Univers 10 mg 4-17 [id number] tablet by ity of tablet 00:00: mouth [place] 00 every 6 Medical (six) Branch hours as needed for Alternate with [place] for pain scale 4-6. HYDROcodone 2021-0 Yes [id number] 1{tbl} Take 1 Un anju -acetaminop 4-17 tablet by ity of hen (NORCO) 00:00: mouth [place] 10-325 mg 00 every 6 Medical tablet (six) Branch hours as needed for Pain (scale 7-10). Indication s: acute pain ketorolac 2021-0 Yes [id number] 10mg Take 1 Univers 10 mg 4-17 [id number] tablet by ity of tablet 00:00: mouth [place] 00 every 6 Medical (six) Branch hours as needed for Alternate with [place] for pain scale 4-6. HYDROcodone 2022-0 Yes [id number] 1{tbl} Take 1 Un anju -acetaminop 4-17 tablet by ity of hen (NORCO) 00:00: mouth [place] 10-325 mg 00 every 6 Medical tablet (six) Branch hours as needed for Pain (scale 7-10). Indication s: acute pain ketorolac 2022-0 Yes [id number] 10mg Take 1 Univers 10 mg 4-17 [id number] tablet by ity of tablet 00:00: mouth [place] 00 every 6 Medical (six) Branch hours as needed for Alternate with [place] for pain scale 4-6. HYDROcodone 2022-0 Yes [id number] 1{tbl} Take 1 Un anju -acetaminop 4-17 tablet by ity of hen (NORCO) 00:00: mouth [place] 10-325 mg 00 every 6 Medical tablet (six) Branch hours as needed for Pain (scale 7-10). Indication s: acute pain ketorolac 2022-0 Yes [id number] 10mg Take 1 Univers 10 mg 4-17 [id number] tablet by ity of tablet 00:00: mouth [place] 00 every 6 Medical (six) Branch hours as needed for Alternate with [place] for pain scale 4-6. HYDROcodone 2022-0 Yes [id number] 1{tbl} Take 1 Un anju -acetaminop 4-17 tablet by ity of hen (NORCO) 00:00: mouth [place] 10-325 mg 00 every 6 Medical tablet (six) Branch hours as needed for Pain (scale 7-10). Indication s: acute pain ketorolac 2022-0 Yes [id number] 10mg Take 1 Univers 10 mg 4-17 [id number] tablet by ity of tablet 00:00: mouth [place] 00 every 6 Medical (six) Branch hours as needed for Alternate with [place] for pain scale 4-6. HYDROcodone 2022-0 Yes [id number] 1{tbl} Take 1 Un anju -acetaminop 4-17 tablet by ity of hen (NORCO) 00:00: mouth [place] 10-325 mg 00 every 6 Medical tablet (six) Branch hours as needed for Pain (scale 7-10). Indication s: acute pain ketorolac 2022-0 Yes [id number] 10mg Take 1 Univers 10 mg 4-17 [id number] tablet by ity of tablet 00:00: mouth [place] 00 every 6 Medical (six) Branch hours as needed for Alternate with [place] for pain scale 4-6. HYDROcodone 2022-0 Yes [id number] 1{tbl} Take 1 Un anju -acetaminop 4-17 tablet by ity of hen (NORCO) 00:00: mouth [place] 10-325 mg 00 every 6 Medical tablet (six) Branch hours as needed for Pain (scale 7-10). Indication s: acute pain ketorolac 2022-0 Yes [id number] 10mg Take 1 Univers 10 mg 4-17 [id number] tablet by ity of tablet 00:00: mouth [place] 00 every 6 Medical (six) Branch hours as needed for Alternate with [place] for pain scale 4-6. HYDROcodone 2022-0 Yes [id number] 1{tbl} Take 1 Un anju -acetaminop 4-17 tablet by ity of hen (NORCO) 00:00: mouth [place] 10-325 mg 00 every 6 Medical tablet (six) Branch hours as needed for Pain (scale 7-10). Indication s: acute pain ketorolac 2022-0 Yes [id number] 10mg Take 1 Univers 10 mg 4-17 [id number] tablet by ity of tablet 00:00: mouth [place] 00 every 6 Medical (six) Branch hours as needed for Alternate with [place] for pain scale 4-6. HYDROcodone 2022-0 Yes [id number] 1{tbl} Take 1 Un anju -acetaminop 4-17 tablet by ity of hen (NORCO) 00:00: mouth [place] 10-325 mg 00 every 6 Medical tablet (six) Branch hours as needed for Pain (scale 7-10). Indication s: acute pain ketorolac 2022-0 Yes [id number] 10mg Take 1 Univers 10 mg 4-17 [id number] tablet by ity of tablet 00:00: mouth [place] 00 every 6 Medical (six) Branch hours as needed for Alternate with [place] for pain scale 4-6. HYDROcodone 2022-0 Yes [id number] 1{tbl} Take 1 Un anju -acetaminop 4-17 tablet by ity of hen (NORCO) 00:00: mouth [place] 10-325 mg 00 every 6 Medical tablet (six) Branch hours as needed for Pain (scale 7-10). Indication s: acute pain ketorolac 2022-0 Yes [id number] 10mg Take 1 Univers 10 mg 4-17 [id number] tablet by ity of tablet 00:00: mouth [place] 00 every 6 Medical (six) Branch hours as needed for Alternate with [place] for pain scale 4-6. HYDROcodone 2022-0 Yes [id number] 1{tbl} Take 1 Un anju -acetaminop 4-17 tablet by ity of hen (NORCO) 00:00: mouth [place] 10-325 mg 00 every 6 Medical tablet (six) Branch hours as needed for Pain (scale 7-10). Indication s: acute pain ketorolac 2022-0 Yes [id number] 10mg Take 1 Univers 10 mg 4-17 [id number] tablet by ity of tablet 00:00: mouth [place] 00 every 6 Medical (six) Branch hours as needed for Alternate with [place] for pain scale 4-6. HYDROcodone 2022-0 Yes [id number] 1{tbl} Take 1 Un anju -acetaminop 4-17 tablet by ity of hen (NORCO) 00:00: mouth [place] 10-325 mg 00 every 6 Medical tablet (six) Branch hours as needed for Pain (scale 7-10). Indication s: acute pain ketorolac 2022-0 Yes [id number] 10mg Take 1 Univers 10 mg 4-17 [id number] tablet by ity of tablet 00:00: mouth [place] 00 every 6 Medical (six) Branch hours as needed for Alternate with [place] for pain scale 4-6. HYDROcodone 2022-0 Yes [id number] 1{tbl} Take 1 Un anju -acetaminop 4-17 tablet by ity of hen (NORCO) 00:00: mouth [place] 10-325 mg 00 every 6 Medical tablet (six) Branch hours as needed for Pain (scale 7-10). Indication s: acute pain ketorolac 2022-0 Yes [id number] 10mg Take 1 Univers 10 mg 4-17 [id number] tablet by ity of tablet 00:00: mouth [place] 00 every 6 Medical (six) Branch hours as needed for Alternate with [place] for pain scale 4-6. HYDROcodone 2022-0 Yes [id number] 1{tbl} Take 1 Un anju -acetaminop 4-17 tablet by ity of hen (NORCO) 00:00: mouth [place] 10-325 mg 00 every 6 Medical tablet (six) Branch hours as needed for Pain (scale 7-10). Indication s: acute pain ibuprofen 2021-0 Yes [id number] 800mg Take 1 Univers 800 mg 3-31 tablet by ity of tablet 00:00: mouth [place] 00 every 8 Medical (eight) Branch hours. oxyCODONE-a 2021-0 Yes [id number] 1{tbl} Take 1 Un anuj cetaminophe 3-31 tablet by ity of n 5-325 mg 00:00: mouth [place] per tablet 00 every 6 Medica l (six) Branch hours as needed for Pain (scale 4-6). Indication s: acute pain ibuprofen 2021-0 Yes [id number] 800mg Take 1 Univers 800 mg 3-31 tablet by ity of tablet 00:00: mouth [place] 00 every 8 Medical (eight) Branch hours. oxyCODONE-a 2021-0 Yes [id number] 1{tbl} Take 1 Un anju cetaminophe 3-31 tablet by ity of n 5-325 mg 00:00: mouth [place] per tablet 00 every 6 Medica l (six) Branch hours as needed for Pain (scale 4-6). Indication s: acute pain ibuprofen Yes [id number] 800mg Take 1 Univers 800 mg 3-31 tablet by ity of tablet 00:00: mouth [place] 00 every 8 Medical (eight) Branch hours. oxyCODONE-a 2021-0 Yes [id number] 1{tbl} Take 1 Un anju cetaminophe 3-31 tablet by ity of n 5-325 mg 00:00: mouth [place] per tablet 00 every 6 Medica l (six) Branch hours as needed for Pain (scale 4-6). Indication s: acute pain ibuprofen 2021-0 Yes [id number] 800mg Take 1 Univers 800 mg 3-31 tablet by ity of tablet 00:00: mouth [place] 00 every 8 Medical (eight) Branch hours. oxyCODONE-a 2021-0 Yes [id number] 1{tbl} Take 1 Un anju cetaminophe 3-31 tablet by ity of n 5-325 mg 00:00: mouth [place] per tablet 00 every 6 Medica l (six) Branch hours as needed for Pain (scale 4-6). Indication s: acute pain ibuprofen 2022-0 Yes [id number] 800mg Take 1 Univers 800 mg 3-31 [...] 4-6). Indication s: acute pain ibuprofen Yes [id number] 800mg Take 1 Univers 800 mg 3-31 [...] 4-6). Indication s: acute pain ibuprofen Yes [id number] 800mg Take 1 Univers 800 mg 3-31 [...] (scale 4-6). Indication s: acute pain ibuprofen 0 Yes [id number] 800mg Take 1 Univers 800 mg 3-31 tablet by ity of tablet 00:00: mouth [place] 00 every 8 Medical (eight) Branch hours. oxyCODONE-a 2021-0 Yes [id number] 1{tbl} Take 1 Un anju cetaminophe 3-31 tablet by ity of n 5-325 mg 00:00: mouth [place] per tablet 00 every 6 Medica l (six) Branch hours as needed for Pain (scale 4-6). Indication s: acute pain ibuprofen 0 Yes [id number] 800mg Take 1 Univers 800 mg 3-31 [...] 4-6). Indication s: acute pain ibuprofen Yes [id number] 800mg Take 1 Univers 800 mg 3-31 [...] 4-6). Indication s: acute pain ibuprofen Yes [id number] 800mg Take 1 Univers 800 mg 3-31 [...] 4-6). Indication s: acute pain ibuprofen Yes [id number] 800mg Take 1 Univers 800 mg 3-31 [...] 4-6). Indication s: acute pain ibuprofen Yes [id number] 800mg Take 1 Univers 800 mg 3-31 [...] 4-6). Indication s: acute pain ibuprofen Yes [id number] 800mg Take 1 Univers 800 mg 3-31 [...] 4-6). Indication s: acute pain ibuprofen Yes [id number] 800mg Take 1 Univers 800 mg 3-31 [...] 0.12 % 1-03 ity of mouthwash 00:00: Medical Branch chlorhexidi Yes Univer s ne 0.12 % 1-03 ity of mouthwash 00:00: Medical Branch chlorhexidi Yes Univer s ne 0.12 % 1-03 ity of mouthwash 00:00: Medical Branch chlorhexidi Yes Univer s ne 0.12 % 1-03 ity of mouthwash 00:00: Medical Branch chlorhexidi Yes Univer s ne 0.12 % 1-03 ity of mouthwash 00:00: Medical Branch chlorhexidi Yes Univer s ne 0.12 % 1-03 ity of mouthwash 00:00: Medical Branch chlorhexidi Yes Univer s ne 0.12 % 1-03 ity of mouthwash 00:00: [place] 00 Medical Branch chlorhexidi 2021-0 Yes Univer s ne 0.12 % 1-03 ity of mouthwash 00:00: [place] Medical Branch chlorhexidi 2021-0 Yes Univer s ne 0.12 % 1-03 ity of mouthwash 00:00: [place] Medical Branch chlorhexidi 2021-0 Yes Univer s ne 0.12 % 1-03 ity of mouthwash 00:00: [place] Medical Branch chlorhexidi 2021-0 Yes Univer s ne 0.12 % 1-03 ity of mouthwash 00:00: [place] Medical Branch chlorhexidi 2021-0 Yes Univer s ne 0.12 % 1-03 ity of mouthwash 00:00: [place] Medical Branch chlorhexidi 2021-0 Yes Univer s ne 0.12 % 1-03 ity of mouthwash 00:00: [place] Medical Branch chlorhexidi 2021-0 Yes Univer s ne 0.12 % 1-03 ity of mouthwash 00:00: [place] Medical Branch chlorhexidi 0 Yes Univer s ne 0.12 % 1-03 ity of mouthwash 00:00: [place] [facility] Branch DULOXETINE 2020-0 Yes [id number] TAKE 1 Univers 20 mg 6-22 CAPSULE BY ity of capsule 00:00: MOUTH [place] TWICE Medical DAILY Branch DULOXETINE 2020-0 Yes [id number] TAKE 1 Univers 20 mg 6-22 CAPSULE BY ity of capsule 00:00: MOUTH [place] TWICE Medical DAILY Branch DULOXETINE 2020-0 Yes [id number] TAKE 1 Univers 20 mg 6-22 CAPSULE BY ity of capsule 00:00: MOUTH [place] TWICE Medical DAILY Branch DULOXETINE 2020-0 Yes [id number] TAKE 1 Univers 20 mg 6-22 CAPSULE BY ity of capsule 00:00: MOUTH [place] TWICE Medical DAILY Branch DULOXETINE 2020-0 Yes [id number] TAKE 1 Univers 20 mg 6-22 CAPSULE BY ity of capsule 00:00: MOUTH [place] TWICE Medical DAILY Branch DULOXETINE 2020-0 Yes [id number] TAKE 1 Univers 20 mg 6-22 CAPSULE BY ity of capsule 00:00: MOUTH [place] TWICE Medical DAILY Branch DULOXETINE 2020-0 Yes [id number] TAKE 1 Univers 20 mg 6-22 CAPSULE BY ity of capsule 00:00: MOUTH [place] 00 TWICE Medical DAILY Branch DULOXETINE 2020-0 Yes [id number] TAKE 1 Univers 20 mg 6-22 CAPSULE BY ity of capsule 00:00: MOUTH [place] 00 TWICE Medical DAILY Branch DULOXETINE 2020-0 Yes [id number] TAKE 1 Univers 20 mg 6-22 CAPSULE BY ity of capsule 00:00: MOUTH [place] 00 TWICE Medical DAILY Branch DULOXETINE 2020-0 Yes [id number] TAKE 1 Univers 20 mg 6-22 CAPSULE BY ity of capsule 00:00: MOUTH [place] 00 TWICE Medical DAILY Branch DULOXETINE 2020-0 Yes [id number] TAKE 1 Univers 20 mg 6-22 CAPSULE BY ity of capsule 00:00: MOUTH [place] TWICE Medical DAILY Branch DULOXETINE 2020-0 Yes [id number] TAKE 1 Univers 20 mg 6-22 CAPSULE BY ity of capsule 00:00: MOUTH [place] TWICE Medical DAILY Branch DULOXETINE 2020-0 Yes [id number] TAKE 1 Univers 20 mg 6-22 CAPSULE BY ity of capsule 00:00: MOUTH [place] 00 TWICE Medical DAILY Branch DULOXETINE 2020-0 Yes [id number] TAKE 1 Univers 20 mg 6-22 CAPSULE BY ity of capsule 00:00: MOUTH [place] 00 TWICE Medical DAILY Branch DULOXETINE 2020-0 Yes [id number] TAKE 1 [facility] 20 mg 6-22 CAPSULE BY ity of capsule 00:00: MOUTH [place] 00 TWICE Medical DAILY Branch glecaprevir 2020-0 Yes [id number] 3{tbl} Take 3 [facility] -pibrentasv 3-21 tablets by it y of ir 00:00: mouth [place] (MAVYRET) 00 daily. Medical 100-40 mg Branch buPROPion 0 Yes [id number] 150mg Take 1 [facility] SR 3-21 tablet by ity of (WELLBUTRIN 00:00: mouth [place] SR) 150 mg 00 daily. Medical SR tablet Branch benzoyl Yes [id number] Apply to U nivers peroxide 3-21 area(s) 2 ity of (ACNE 00:00: (two) [place] FOAMING 00 times Medical WASH) 10 % daily. Branch external wash albuterol 2020-0 Yes [id number] 2{puff} Inhale 2 [facility] 90 3-21 Puffs ity of mcg/actuati 00:00: every 4 [place] as on inhaler 00 (four) Medical hours as Branch needed for Wheezing or Shortness of Breath. albuterol Yes [id number] 2.5mg Inhale 3 [facility] 2.5 mg /3 3-21 mL every 4 ity of mL (0.083 00:00: (four) [place] %) 00 hours as Medical nebulizer needed for Bran ch solution Wheezing or Shortness of Breath. valACYclovi Yes [id number] 1g Take 1 [facility] r 1 gram 3-21 tablet by ity of tablet 00:00: mouth [place] 00 daily. Medical Branch meclizine Yes [id number] 25mg Take 1 [facility] nivers 25 mg 3-21 tablet by ity of tablet 00:00: mouth 3 [place] 00 (three) Medical times Branch daily as needed for Dizziness. glecaprevir Yes [id number] 3{tbl} Take 3 [facility] -pibrentasv 3-21 tablets by it y of ir 00:00: mouth [place] (MAVYRET) 00 daily. Medical 100-40 mg Branch buPROPion Yes [id number] 150mg Take 1 [facility] SR 3-21 tablet by ity of (WELLBUTRIN 00:00: mouth [place] SR) 150 mg 00 daily. Medical SR tablet Branch benzoyl Yes [id number] Apply to U nivers peroxide 3-21 area(s) 2 ity of (ACNE 00:00: (two) [place] FOAMING 00 times Medical WASH) 10 % daily. Branch external wash albuterol Yes [id number] 2{puff} Inhale 2 [facility] 90 3-21 Puffs ity of mcg/actuati 00:00: every 4 [place] as on inhaler 00 (four) Medical hours as Branch needed for Wheezing or Shortness of Breath. albuterol Yes [id number] 2.5mg Inhale 3 [facility] 2.5 mg /3 3-21 mL every 4 ity of mL (0.083 00:00: (four) [place] %) 00 hours as Medical nebulizer needed for Bran ch solution Wheezing or Shortness of Breath. valACYclovi Yes [id number] 1g Take 1 [facility] r 1 gram 3-21 tablet by ity of tablet 00:00: mouth [place] 00 daily. Medical Branch meclizine Yes [id number] 25mg Take 1 [facility] nivers 25 mg 3-21 tablet by ity of tablet 00:00: mouth 3 [place] 00 (three) Medical times Branch daily as needed for Dizziness. glecaprevir Yes [id number] 3{tbl} Take 3 [facility] -pibrentasv 3-21 tablets by it y of ir 00:00: mouth [place] (MAVYRET) 00 daily. Medical 100-40 mg Branch buPROPion Yes [id number] 150mg Take 1 [facility] SR 3-21 tablet by ity of (WELLBUTRIN 00:00: mouth [place] SR) 150 mg 00 daily. Medical SR tablet Branch benzoyl Yes [id number] Apply to U nivers peroxide 3-21 area(s) 2 ity of (ACNE 00:00: (two) [place] FOAMING 00 times Medical WASH) 10 % daily. Branch external wash albuterol Yes [id number] 2{puff} Inhale 2 [facility] 90 3-21 Puffs ity of mcg/actuati 00:00: every 4 [place] as on inhaler 00 (four) Medical hours as Branch needed for Wheezing or Shortness of Breath. albuterol Yes [id number] 2.5mg Inhale 3 [facility] 2.5 mg /3 3-21 mL every 4 ity of mL (0.083 00:00: (four) [place] %) 00 hours as Medical nebulizer needed for Bran ch solution Wheezing or Shortness of Breath. valACYclovi Yes [id number] 1g Take 1 [facility] r 1 gram 3-21 tablet by ity of tablet 00:00: mouth [place] 00 daily. Medical Branch meclizine Yes [id number] 25mg Take 1 U nivers 25 mg 3-21 tablet by ity of tablet 00:00: mouth 3 [place] 00 (three) Medical times Branch daily as needed for Dizziness. glecaprevir Yes [id number] 3{tbl} Take 3 [facility] -pibrentasv 3-21 tablets by it y of ir 00:00: mouth [place] (MAVYRET) 00 daily. Medical 100-40 mg Branch buPROPion Yes [id number] 150mg Take 1 [facility] SR 3-21 tablet by ity of (WELLBUTRIN 00:00: mouth [place] SR) 150 mg 00 daily. Medical SR tablet Branch benzoyl Yes [id number] Apply to U nivers peroxide 3-21 area(s) 2 ity of (ACNE 00:00: (two) [place] FOAMING 00 times Medical WASH) 10 % daily. Branch external wash albuterol Yes [id number] 2{puff} Inhale 2 [facility] 90 3-21 Puffs ity of mcg/actuati 00:00: every 4 [place] as on inhaler 00 (four) Medical hours as Branch needed for Wheezing or Shortness of Breath. albuterol Yes [id number] 2.5mg Inhale 3 [facility] 2.5 mg /3 3-21 mL every 4 ity of mL (0.083 00:00: (four) [place] %) 00 hours as Medical nebulizer needed for Bran ch solution Wheezing or Shortness of Breath. valACYclovi Yes [id number] 1g Take 1 [facility] r 1 gram 3-21 tablet by ity of tablet 00:00: mouth [place] 00 daily. Medical Branch meclizine Yes [id number] 25mg Take 1 [facility] nivers 25 mg 3-21 tablet by ity of tablet 00:00: mouth 3 [place] 00 (three) Medical times Branch daily as needed for Dizziness. glecaprevir Yes [id number] 3{tbl} Take 3 [facility] -pibrentasv 3-21 tablets by it y of ir 00:00: mouth [place] (MAVYRET) 00 daily. Medical 100-40 mg Branch buPROPion Yes [id number] 150mg Take 1 [facility] SR 3-21 tablet by ity of (WELLBUTRIN 00:00: mouth [place] SR) 150 mg 00 daily. Medical SR tablet Branch benzoyl Yes [id number] Apply to U nivers peroxide 3-21 area(s) 2 ity of (ACNE 00:00: (two) [place] FOAMING 00 times Medical WASH) 10 % daily. Branch external wash albuterol Yes [id number] 2{puff} Inhale 2 [facility] 90 3-21 Puffs ity of mcg/actuati 00:00: every 4 [place] as on inhaler 00 (four) Medical hours as Branch needed for Wheezing or Shortness of Breath. albuterol Yes [id number] 2.5mg Inhale 3 [facility] 2.5 mg /3 3-21 mL every 4 ity of mL (0.083 00:00: (four) [place] %) 00 hours as Medical nebulizer needed for Bran ch solution Wheezing or Shortness of Breath. valACYclovi Yes [id number] 1g Take 1 [facility] r 1 gram 3-21 tablet by ity of tablet 00:00: mouth [place] 00 daily. Medical Branch meclizine Yes [id number] 25mg Take 1 [facility] nivers 25 mg 3-21 tablet by ity of tablet 00:00: mouth 3 [place] 00 (three) Medical times Branch daily as needed for Dizziness. glecaprevir Yes [id number] 3{tbl} Take 3 [facility] -pibrentasv 3-21 tablets by it y of ir 00:00: mouth [place] (MAVYRET) 00 daily. Medical 100-40 mg Branch buPROPion Yes [id number] 150mg Take 1 [facility] SR 3-21 tablet by ity of (WELLBUTRIN 00:00: mouth [place] SR) 150 mg 00 daily. Medical SR tablet Branch benzoyl Yes [id number] Apply to U nivers peroxide 3-21 area(s) 2 ity of (ACNE 00:00: (two) [place] FOAMING 00 times Medical WASH) 10 % daily. Branch external wash albuterol Yes [id number] 2{puff} Inhale 2 [facility] 90 3-21 Puffs ity of mcg/actuati 00:00: every 4 [place] as on inhaler 00 (four) Medical hours as Branch needed for Wheezing or Shortness of Breath. albuterol Yes [id number] 2.5mg Inhale 3 [facility] 2.5 mg /3 3-21 mL every 4 ity of mL (0.083 00:00: (four) [place] %) 00 hours as Medical nebulizer needed for Bran ch solution Wheezing or Shortness of Breath. valACYclovi Yes [id number] 1g Take 1 [facility] r 1 gram 3-21 tablet by ity of tablet 00:00: mouth [place] 00 daily. Medical Branch meclizine Yes [id number] 25mg Take 1 [facility] nivers 25 mg 3-21 tablet by ity of tablet 00:00: mouth 3 [place] 00 (three) Medical times Branch daily as needed for Dizziness. glecaprevir Yes [id number] 3{tbl} Take 3 [facility] -pibrentasv 3-21 tablets by it y of ir 00:00: mouth [place] (MAVYRET) 00 daily. Medical 100-40 mg Branch buPROPion Yes [id number] 150mg Take 1 [facility] SR 3-21 tablet by ity of (WELLBUTRIN 00:00: mouth [place] SR) 150 mg 00 daily. Medical SR tablet Branch benzoyl Yes [id number] Apply to U nivers peroxide 3-21 area(s) 2 ity of (ACNE 00:00: (two) [place] FOAMING 00 times Medical WASH) 10 % daily. Branch external wash albuterol Yes [id number] 2{puff} Inhale 2 [facility] 90 3-21 Puffs ity of mcg/actuati 00:00: every 4 [place] as on inhaler 00 (four) Medical hours as Branch needed for Wheezing or Shortness of Breath. albuterol Yes [id number] 2.5mg Inhale 3 [facility] 2.5 mg /3 3-21 mL every 4 ity of mL (0.083 00:00: (four) [place] %) 00 hours as Medical nebulizer needed for Bran ch solution Wheezing or Shortness of Breath. valACYclovi Yes [id number] 1g Take 1 [facility] r 1 gram 3-21 tablet by ity of tablet 00:00: mouth [place] 00 daily. Medical Branch meclizine Yes [id number] 25mg Take 1 [facility] nivers 25 mg 3-21 tablet by ity of tablet 00:00: mouth 3 [place] 00 (three) Medical times Branch daily as needed for Dizziness. glecaprevir Yes [id number] 3{tbl} Take 3 [facility] -pibrentasv 3-21 tablets by it y of ir 00:00: mouth [place] (MAVYRET) 00 daily. Medical 100-40 mg Branch buPROPion Yes [id number] 150mg Take 1 [facility] SR 3-21 tablet by ity of (WELLBUTRIN 00:00: mouth [place] SR) 150 mg 00 daily. Medical SR tablet Branch benzoyl Yes [id number] Apply to U nivers peroxide 3-21 area(s) 2 ity of (ACNE 00:00: (two) [place] FOAMING 00 times Medical WASH) 10 % daily. Branch external wash albuterol Yes [id number] 2{puff} Inhale 2 [facility] 90 3-21 Puffs ity of mcg/actuati 00:00: every 4 [place] as on inhaler 00 (four) Medical hours as Branch needed for Wheezing or Shortness of Breath. albuterol Yes [id number] 2.5mg Inhale 3 [facility] 2.5 mg /3 3-21 mL every 4 ity of mL (0.083 00:00: (four) [place] %) 00 hours as Medical nebulizer needed for Bran ch solution Wheezing or Shortness of Breath. valACYclovi Yes [id number] 1g Take 1 [facility] r 1 gram 3-21 tablet by ity of tablet 00:00: mouth [place] 00 daily. Medical Branch meclizine Yes [id number] 25mg Take 1 [facility] nivers 25 mg 3-21 tablet by ity of tablet 00:00: mouth 3 [place] 00 (three) Medical times Branch daily as needed for Dizziness. glecaprevir Yes [id number] 3{tbl} Take 3 [facility] -pibrentasv 3-21 tablets by it y of ir 00:00: mouth [place] (MAVYRET) 00 daily. Medical 100-40 mg Branch buPROPion Yes [id number] 150mg Take 1 [facility] SR 3-21 tablet by ity of (WELLBUTRIN 00:00: mouth [place] SR) 150 mg 00 daily. Medical SR tablet Branch benzoyl Yes [id number] Apply to U nivers peroxide 3-21 area(s) 2 ity of (ACNE 00:00: (two) [place] FOAMING 00 times Medical WASH) 10 % daily. Branch external wash albuterol Yes [id number] 2{puff} Inhale 2 [facility] 90 3-21 Puffs ity of mcg/actuati 00:00: every 4 [place] as on inhaler 00 (four) Medical hours as Branch needed for Wheezing or Shortness of Breath. albuterol Yes [id number] 2.5mg Inhale 3 [facility] 2.5 mg /3 3-21 mL every 4 ity of mL (0.083 00:00: (four) [place] %) 00 hours as Medical nebulizer needed for Bran ch solution Wheezing or Shortness of Breath. valACYclovi Yes [id number] 1g Take 1 [facility] r 1 gram 3-21 tablet by ity of tablet 00:00: mouth [place] 00 daily. Medical Branch meclizine Yes [id number] 25mg Take 1 U nivers 25 mg 3-21 tablet by ity of tablet 00:00: mouth 3 [place] 00 (three) Medical times Branch daily as needed for Dizziness. glecaprevir Yes [id number] 3{tbl} Take 3 [facility] -pibrentasv 3-21 tablets by it y of ir 00:00: mouth [place] (MAVYRET) 00 daily. Medical 100-40 mg Branch buPROPion Yes [id number] 150mg Take 1 [facility] SR 3-21 tablet by ity of (WELLBUTRIN 00:00: mouth [place] SR) 150 mg 00 daily. Medical SR tablet Branch benzoyl Yes [id number] Apply to U nivers peroxide 3-21 area(s) 2 ity of (ACNE 00:00: (two) [place] FOAMING 00 times Medical WASH) 10 % daily. Branch external wash albuterol Yes [id number] 2{puff} Inhale 2 [facility] 90 3-21 Puffs ity of mcg/actuati 00:00: every 4 [place] as on inhaler 00 (four) Medical hours as Branch needed for Wheezing or Shortness of Breath. albuterol Yes [id number] 2.5mg Inhale 3 [facility] 2.5 mg /3 3-21 mL every 4 ity of mL (0.083 00:00: (four) [place] %) 00 hours as Medical nebulizer needed for Bran ch solution Wheezing or Shortness of Breath. valACYclovi Yes [id number] 1g Take 1 [facility] r 1 gram 3-21 tablet by ity of tablet 00:00: mouth [place] 00 daily. Medical Branch meclizine Yes [id number] 25mg Take 1 U nivers 25 mg 3-21 tablet by ity of tablet 00:00: mouth 3 [place] 00 (three) Medical times Branch daily as needed for Dizziness. glecaprevir Yes [id number] 3{tbl} Take 3 [facility] -pibrentasv 3-21 tablets by it y of ir 00:00: mouth [place] (MAVYRET) 00 daily. Medical 100-40 mg Branch buPROPion Yes [id number] 150mg Take 1 [facility] SR 3-21 tablet by ity of (WELLBUTRIN 00:00: mouth [place] SR) 150 mg 00 daily. Medical SR tablet Branch benzoyl Yes [id number] Apply to U nivers peroxide 3-21 area(s) 2 ity of (ACNE 00:00: (two) [place] FOAMING 00 times Medical WASH) 10 % daily. Branch external wash albuterol Yes [id number] 2{puff} Inhale 2 [facility] 90 3-21 Puffs ity of mcg/actuati 00:00: every 4 [place] as on inhaler 00 (four) Medical hours as Branch needed for Wheezing or Shortness of Breath. albuterol Yes [id number] 2.5mg Inhale 3 [facility] 2.5 mg /3 3-21 mL every 4 ity of mL (0.083 00:00: (four) [place] %) 00 hours as Medical nebulizer needed for Bran ch solution Wheezing or Shortness of Breath. valACYclovi Yes [id number] 1g Take 1 [facility] r 1 gram 3-21 tablet by ity of tablet 00:00: mouth [place] 00 daily. Medical Branch meclizine Yes [id number] 25mg Take 1 [facility] nivers 25 mg 3-21 tablet by ity of tablet 00:00: mouth 3 [place] 00 (three) Medical times Branch daily as needed for Dizziness. glecaprevir Yes [id number] 3{tbl} Take 3 [facility] -pibrentasv 3-21 tablets by it y of ir 00:00: mouth [place] (MAVYRET) 00 daily. Medical 100-40 mg Branch buPROPion Yes [id number] 150mg Take 1 [facility] SR 3-21 tablet by ity of (WELLBUTRIN 00:00: mouth [place] SR) 150 mg 00 daily. Medical SR tablet Branch benzoyl Yes [id number] Apply to U nivers peroxide 3-21 area(s) 2 ity of (ACNE 00:00: (two) [place] FOAMING 00 times Medical WASH) 10 % daily. Branch external wash albuterol Yes [id number] 2{puff} Inhale 2 [facility] 90 3-21 Puffs ity of mcg/actuati 00:00: every 4 [place] as on inhaler 00 (four) Medical hours as Branch needed for Wheezing or Shortness of Breath. albuterol Yes [id number] 2.5mg Inhale 3 [facility] 2.5 mg /3 3-21 mL every 4 ity of mL (0.083 00:00: (four) [place] %) 00 hours as Medical nebulizer needed for Bran ch solution Wheezing or Shortness of Breath. valACYclovi Yes [id number] 1g Take 1 [facility] r 1 gram 3-21 tablet by ity of tablet 00:00: mouth [place] 00 daily. Medical Branch meclizine Yes [id number] 25mg Take 1 U nivers 25 mg 3-21 tablet by ity of tablet 00:00: mouth 3 [place] 00 (three) Medical times Branch daily as needed for Dizziness. glecaprevir Yes [id number] 3{tbl} Take 3 [facility] -pibrentasv 3-21 tablets by it y of ir 00:00: mouth [place] (MAVYRET) 00 daily. Medical 100-40 mg Branch buPROPion Yes [id number] 150mg Take 1 [facility] SR 3-21 tablet by ity of (WELLBUTRIN 00:00: mouth [place] SR) 150 mg 00 daily. Medical SR tablet Branch benzoyl Yes [id number] Apply to U nivers peroxide 3-21 area(s) 2 ity of (ACNE 00:00: (two) [place] FOAMING 00 times Medical WASH) 10 % daily. Branch external wash albuterol Yes [id number] 2{puff} Inhale 2 [facility] 90 3-21 Puffs ity of mcg/actuati 00:00: every 4 [place] as on inhaler 00 (four) Medical hours as Branch needed for Wheezing or Shortness of Breath. albuterol Yes [id number] 2.5mg Inhale 3 [facility] 2.5 mg /3 3-21 mL every 4 ity of mL (0.083 00:00: (four) [place] %) 00 hours as Medical nebulizer needed for Bran ch solution Wheezing or Shortness of Breath. valACYclovi Yes [id number] 1g Take 1 [facility] r 1 gram 3-21 tablet by ity of tablet 00:00: mouth [place] 00 daily. Medical Branch meclizine Yes [id number] 25mg Take 1 U nivers 25 mg 3-21 tablet by ity of tablet 00:00: mouth 3 [place] 00 (three) Medical times Branch daily as needed for Dizziness. glecaprevir Yes [id number] 3{tbl} Take 3 [facility] -pibrentasv 3-21 tablets by it y of ir 00:00: mouth [place] (MAVYRET) 00 daily. Medical 100-40 mg Branch buPROPion Yes [id number] 150mg Take 1 [facility] SR 3-21 tablet by ity of (WELLBUTRIN 00:00: mouth [place] SR) 150 mg 00 daily. Medical SR tablet Branch benzoyl Yes [id number] Apply to U nivers peroxide 3-21 area(s) 2 ity of (ACNE 00:00: (two) [place] FOAMING 00 times Medical WASH) 10 % daily. Branch external wash albuterol Yes [id number] 2{puff} Inhale 2 [facility] 90 3-21 Puffs ity of mcg/actuati 00:00: every 4 [place] as on inhaler 00 (four) Medical hours as Branch needed for Wheezing or Shortness of Breath. albuterol Yes [id number] 2.5mg Inhale 3 [facility] 2.5 mg /3 3-21 mL every 4 ity of mL (0.083 00:00: (four) [place] %) 00 hours as Medical nebulizer needed for Bran ch solution Wheezing or Shortness of Breath. valACYclovi Yes [id number] 1g Take 1 [facility] r 1 gram 3-21 tablet by ity of tablet 00:00: mouth [place] 00 daily. Medical Branch meclizine Yes [id number] 25mg Take 1 U nivers 25 mg 3-21 tablet by ity of tablet 00:00: mouth 3 [place] 00 (three) Medical times Branch daily as needed for Dizziness. glecaprevir Yes [id number] 3{tbl} Take 3 [facility] -pibrentasv 3-21 tablets by it y of ir 00:00: mouth [place] (MAVYRET) 00 daily. Medical 100-40 mg Branch buPROPion Yes [id number] 150mg Take 1 [facility] SR 3-21 tablet by ity of (WELLBUTRIN 00:00: mouth [place] SR) 150 mg 00 daily. Medical SR tablet Branch benzoyl Yes [id number] Apply to U nivers peroxide 3-21 area(s) 2 ity of (ACNE 00:00: (two) [place] FOAMING 00 times Medical WASH) 10 % daily. Branch external wash albuterol Yes [id number] 2{puff} Inhale 2 [facility] 90 3-21 Puffs ity of mcg/actuati 00:00: every 4 [place] as on inhaler 00 (four) Medical hours as Branch needed for Wheezing or Shortness of Breath. albuterol Yes [id number] 2.5mg Inhale 3 [facility] 2.5 mg /3 3-21 mL every 4 ity of mL (0.083 00:00: (four) [place] %) 00 hours as Medical nebulizer needed for Bran ch solution Wheezing or Shortness of Breath. valACYclovi Yes [id number] 1g Take 1 [facility] r 1 gram 3-21 tablet by ity of tablet 00:00: mouth [place] 00 daily. Medical Branch meclizine Yes [id number] 25mg Take 1 U nivers 25 mg 3-21 tablet by ity of tablet 00:00: mouth 3 [place] 00 (three) Medical times Branch daily as needed for Dizziness. topiramate Yes 50mg Take 1 [facility] rs 50 mg 3-18 tablet by ity of tablet 00:00: mouth 2 00 (two) Medical times Branch daily. topiramate 0 Yes 50mg Take 1 [facility] rs 50 mg 3-18 tablet by ity of tablet 00:00: mouth 2 (two) Medical times Branch daily. topiramate 2021-0 Yes 50mg Take 1 [facility] rs 50 mg 3-18 tablet by ity of tablet 00:00: mouth (two) Medical times Branch daily. topiramate 2021-0 Yes 50mg Take 1 [facility] rs 50 mg 3-18 tablet by ity of tablet 00:00: mouth (two) Medical times Branch daily. topiramate 2021-0 Yes 50mg Take 1 [facility] rs 50 mg 3-18 tablet by ity of tablet 00:00: mouth (two) Medical times Branch daily. topiramate 2021-0 Yes 50mg Take 1 [facility] rs 50 mg 3-18 tablet by ity of tablet 00:00: mouth (two) Medical times Branch daily. topiramate 2021-0 Yes 50mg Take 1 [facility] rs 50 mg 3-18 tablet by ity of tablet 00:00: mouth (two) Medical times Branch daily. topiramate 2021-0 Yes 50mg Take 1 [facility] rs 50 mg 3-18 tablet by ity of tablet 00:00: mouth (two) Medical times Branch daily. topiramate 2021-0 Yes 50mg Take 1 [facility] rs 50 mg 3-18 tablet by ity of tablet 00:00: mouth (two) Medical times Branch daily. topiramate 2021-0 Yes 50mg Take 1 [facility] rs 50 mg 3-18 tablet by ity of tablet 00:00: mouth (two) Medical times Branch daily. topiramate 2021-0 Yes 50mg Take 1 [facility] rs 50 mg 3-18 tablet by ity of tablet 00:00: mouth (two) Medical times Branch daily. topiramate 2021-0 Yes 50mg Take 1 [facility] rs 50 mg 3-18 tablet by ity of tablet 00:00: mouth (two) Medical times Branch daily. topiramate 2021-0 Yes 50mg Take 1 [facility] rs 50 mg 3-18 tablet by ity of tablet 00:00: mouth 2 (two) Medical times Branch daily. topiramate 2021-0 Yes 50mg Take 1 [facility] rs 50 mg 3-18 tablet by ity of tablet 00:00: mouth (two) Medical times Branch daily. topiramate 0 Yes 50mg Take 1 [facility] rs 50 mg 3-18 tablet by ity of tablet 00:00: mouth 2 [place] 00 (two) Medical times Branch daily. fluticasone 2020-0 Yes [id number] 1{puff} Inhale 1 [facility] propionate 1-08 Puff every ity of 110 00:00: 12 [place] mcg/actuati 00 (twelve) Medi norma on inhaler hours. Branch carBAMazepi 2020-0 Yes [id number] 400mg Take 1 [facility] ne 400 mg 1-08 tablet by ity o f 12 hr 00:00: mouth 2 [place] tablet 00 (two) Medical times Branch daily. triamcinolo 2020-0 Yes [id number] Apply to [facility] ne 1-08 area(s) 2 ity of acetonide 00:00: (two) [place] 0.1 % cream 00 times Medical daily. Branch tretinoin 2020-0 Yes [id number] 1g Apply 1 g [facility] 0.075 % 1-08 to area(s) ity of Crea 00:00: at [place] 00 bedtime. Medical Branch doxepin 50 2020-0 Yes [id number] 50mg Take 1 [facility] anju mg capsule 1-08 capsule by ity of 00:00: mouth at [place] 00 bedtime. Medical Branch ipratropium 0 Yes [id number] .5mg Inhale 2.5 [facility] 0.02 % 1-08 mL every 8 ity of nebulizer 00:00: (eight) [place] solution 00 hours as Medical needed for Branch Wheezing or Shortness of Breath. fluticasone 2020-0 Yes [id number] 1{puff} Inhale 1 [facility] propionate 1-08 Puff every ity of 110 00:00: 12 [place] mcg/actuati 00 (twelve) Medi norma on inhaler hours. Branch carBAMazepi 2020-0 Yes [id number] 400mg Take 1 [facility] ne 400 mg 1-08 tablet by ity o f 12 hr 00:00: mouth 2 [place] tablet 00 (two) Medical times Branch daily. triamcinolo 2020-0 Yes [id number] Apply to [facility] ne 1-08 area(s) 2 ity of acetonide 00:00: (two) [place] 0.1 % cream 00 times Medical daily. Branch tretinoin 2020-0 Yes [id number] 1g Apply 1 g [facility] 0.075 % 1-08 to area(s) ity of Crea 00:00: at [place] 00 bedtime. Medical Branch doxepin 50 2020-0 Yes [id number] 50mg Take 1 [facility] anju mg capsule 1-08 capsule by ity of 00:00: mouth at [place] 00 bedtime. Medical Branch ipratropium 2020-0 Yes [id number] .5mg Inhale 2.5 [facility] 0.02 % 1-08 mL every 8 ity of nebulizer 00:00: (eight) [place] solution 00 hours as Medical needed for Branch Wheezing or Shortness of Breath. fluticasone 2020-0 Yes [id number] 1{puff} Inhale 1 [facility] propionate 1-08 Puff every ity of 110 00:00: 12 [place] mcg/actuati 00 (twelve) Medi norma on inhaler hours. Branch carBAMazepi 2020-0 Yes [id number] 400mg Take 1 [facility] ne 400 mg 1-08 tablet by ity o f 12 hr 00:00: mouth 2 [place] tablet 00 (two) Medical times Branch daily. triamcinolo 2020-0 Yes [id number] Apply to [facility] ne 1-08 area(s) 2 ity of acetonide 00:00: (two) [place] 0.1 % cream 00 times Medical daily. Branch tretinoin 2020-0 Yes [id number] 1g Apply 1 g [facility] 0.075 % 1-08 to area(s) ity of Crea 00:00: at [place] 00 bedtime. Medical Branch doxepin 50 2020-0 Yes [id number] 50mg Take 1 [facility] anju mg capsule 1-08 capsule by ity of 00:00: mouth at [place] 00 bedtime. Medical Branch ipratropium 2020-0 Yes [id number] .5mg Inhale 2.5 [facility] 0.02 % 1-08 mL every 8 ity of nebulizer 00:00: (eight) [place] solution 00 hours as Medical needed for Branch Wheezing or Shortness of Breath. fluticasone 2020-0 Yes [id number] 1{puff} Inhale 1 [facility] propionate 1-08 Puff every ity of 110 00:00: 12 [place] mcg/actuati 00 (twelve) Medi norma on inhaler hours. Branch carBAMazepi 2020-0 Yes [id number] 400mg Take 1 [facility] ne 400 mg 1-08 tablet by ity o f 12 hr 00:00: mouth 2 [place] tablet 00 (two) Medical times Branch daily. triamcinolo 2020-0 Yes [id number] Apply to [facility] ne 1-08 area(s) 2 ity of acetonide 00:00: (two) [place] 0.1 % cream 00 times Medical daily. Branch tretinoin 2020-0 Yes [id number] 1g Apply 1 g [facility] 0.075 % 1-08 to area(s) ity of Crea 00:00: at [place] 00 bedtime. Medical Branch doxepin 50 2020-0 Yes [id number] 50mg Take 1 [facility] anju mg capsule 1-08 capsule by ity of 00:00: mouth at [place] 00 bedtime. Medical Branch ipratropium 2020-0 Yes [id number] .5mg Inhale 2.5 [facility] 0.02 % 1-08 mL every 8 ity of nebulizer 00:00: (eight) [place] solution 00 hours as Medical needed for Branch Wheezing or Shortness of Breath. fluticasone 2020-0 Yes [id number] 1{puff} Inhale 1 [facility] propionate 1-08 Puff every ity of 110 00:00: 12 [place] mcg/actuati 00 (twelve) Medi norma on inhaler hours. Branch carBAMazepi 2020-0 Yes [id number] 400mg Take 1 [facility] ne 400 mg 1-08 tablet by ity o f 12 hr 00:00: mouth 2 [place] tablet 00 (two) Medical times Branch daily. triamcinolo 2020-0 Yes [id number] Apply to [facility] ne 1-08 area(s) 2 ity of acetonide 00:00: (two) [place] 0.1 % cream 00 times Medical daily. Branch tretinoin 2020-0 Yes [id number] 1g Apply 1 g [facility] 0.075 % 1-08 to area(s) ity of Crea 00:00: at [place] 00 bedtime. Medical Branch doxepin 50 2020-0 Yes [id number] 50mg Take 1 [facility] anju mg capsule 1-08 capsule by ity of 00:00: mouth at [place] 00 bedtime. Medical Branch ipratropium 2020-0 Yes [id number] .5mg Inhale 2.5 [facility] 0.02 % 1-08 mL every 8 ity of nebulizer 00:00: (eight) [place] solution 00 hours as Medical needed for Branch Wheezing or Shortness of Breath. fluticasone 2020-0 Yes [id number] 1{puff} Inhale 1 [facility] propionate 1-08 Puff every ity of 110 00:00: 12 [place] mcg/actuati 00 (twelve) Medi norma on inhaler hours. Branch carBAMazepi 2020-0 Yes [id number] 400mg Take 1 Univers ne 400 mg 1-08 tablet by ity o f 12 hr 00:00: mouth 2 [place] tablet 00 (two) Medical times Branch daily. triamcinolo 2020-0 Yes [id number] Apply to Univers ne 1-08 area(s) 2 ity of acetonide 00:00: (two) [place] 0.1 % cream 00 times Medical daily. Branch tretinoin 2020-0 Yes [id number] 1g Apply 1 g Univers 0.075 % 1-08 to area(s) ity of Crea 00:00: at [place] 00 bedtime. Medical Branch doxepin 50 2020-0 Yes [id number] 50mg Take 1 Un anju mg capsule 1-08 capsule by ity of 00:00: mouth at [place] 00 bedtime. Medical Branch ipratropium 2020-0 Yes [id number] .5mg Inhale 2.5 Univers 0.02 % 1-08 mL every 8 ity of nebulizer 00:00: (eight) [place] solution 00 hours as Medical needed for Branch Wheezing or Shortness of Breath. fluticasone 2020-0 Yes [id number] 1{puff} Inhale 1 Univers propionate 1-08 Puff every ity of 110 00:00: 12 [place] mcg/actuati 00 (twelve) Medi norma on inhaler hours. Branch carBAMazepi 2020-0 Yes [id number] 400mg Take 1 Univers ne 400 mg 1-08 tablet by ity o f 12 hr 00:00: mouth 2 [place] tablet 00 (two) Medical times Branch daily. triamcinolo 2020-0 Yes [id number] Apply to Univers ne 1-08 area(s) 2 ity of acetonide 00:00: (two) [place] 0.1 % cream 00 times Medical daily. Branch tretinoin 2020-0 Yes [id number] 1g Apply 1 g Univers 0.075 % 1-08 to area(s) ity of Crea 00:00: at [place] 00 bedtime. Medical Branch doxepin 50 2020-0 Yes [id number] 50mg Take 1 Un anju mg capsule 1-08 capsule by ity of 00:00: mouth at [place] 00 bedtime. Medical Branch ipratropium 2020-0 Yes [id number] .5mg Inhale 2.5 Univers 0.02 % 1-08 mL every 8 ity of nebulizer 00:00: (eight) [place] solution 00 hours as Medical needed for Branch Wheezing or Shortness of Breath. fluticasone 2020-0 Yes [id number] 1{puff} Inhale 1 Univers propionate 1-08 Puff every ity of 110 00:00: 12 [place] mcg/actuati 00 (twelve) Medi norma on inhaler hours. Branch carBAMazepi 2020-0 Yes [id number] 400mg Take 1 Univers ne 400 mg 1-08 tablet by ity o f 12 hr 00:00: mouth 2 [place] tablet 00 (two) Medical times Branch daily. triamcinolo 2020-0 Yes [id number] Apply to Univers ne 1-08 area(s) 2 ity of acetonide 00:00: (two) [place] 0.1 % cream 00 times Medical daily. Branch tretinoin 2020-0 Yes [id number] 1g Apply 1 g Univers 0.075 % 1-08 to area(s) ity of Crea 00:00: at [place] 00 bedtime. Medical Branch doxepin 50 2020-0 Yes [id number] 50mg Take 1 Un anju mg capsule 1-08 capsule by ity of 00:00: mouth at [place] 00 bedtime. Medical Branch ipratropium 2020-0 Yes [id number] .5mg Inhale 2.5 Univers 0.02 % 1-08 mL every 8 ity of nebulizer 00:00: (eight) [place] solution 00 hours as Medical needed for Branch Wheezing or Shortness of Breath. fluticasone 2020-0 Yes [id number] 1{puff} Inhale 1 Univers propionate 1-08 Puff every ity of 110 00:00: 12 [place] mcg/actuati 00 (twelve) Medi norma on inhaler hours. Branch carBAMazepi 2021-0 Yes [id number] 400mg Take 1 Univers ne 400 mg 1-08 tablet by ity o f 12 hr 00:00: mouth 2 [place] tablet 00 (two) Medical times Branch daily. triamcinolo 2020-0 Yes [id number] Apply to Univers ne 1-08 area(s) 2 ity of acetonide 00:00: (two) [place] 0.1 % cream 00 times Medical daily. Branch tretinoin 2020-0 Yes [id number] 1g Apply 1 g Univers 0.075 % 1-08 to area(s) ity of Crea 00:00: at [place] 00 bedtime. Medical Branch doxepin 50 2020-0 Yes [id number] 50mg Take 1 Un anju mg capsule 1-08 capsule by ity of 00:00: mouth at [place] 00 bedtime. Medical Branch ipratropium 2020-0 Yes [id number] .5mg Inhale 2.5 Univers 0.02 % 1-08 mL every 8 ity of nebulizer 00:00: (eight) [place] solution 00 hours as Medical needed for Branch Wheezing or Shortness of Breath. fluticasone 2020-0 Yes [id number] 1{puff} Inhale 1 Univers propionate 1-08 Puff every ity of 110 00:00: 12 [place] mcg/actuati 00 (twelve) Medi norma on inhaler hours. Branch carBAMazepi 2020-0 Yes [id number] 400mg Take 1 Univers ne 400 mg 1-08 tablet by ity o f 12 hr 00:00: mouth 2 [place] tablet 00 (two) Medical times Branch daily. triamcinolo 2020-0 Yes [id number] Apply to Univers ne 1-08 area(s) 2 ity of acetonide 00:00: (two) [place] 0.1 % cream 00 times Medical daily. Branch tretinoin 2020-0 Yes [id number] 1g Apply 1 g Univers 0.075 % 1-08 to area(s) ity of Crea 00:00: at [place] 00 bedtime. Medical Branch doxepin 50 2020-0 Yes [id number] 50mg Take 1 Un anju mg capsule 1-08 capsule by ity of 00:00: mouth at [place] 00 bedtime. Medical Branch ipratropium 2020-0 Yes [id number] .5mg Inhale 2.5 Univers 0.02 % 1-08 mL every 8 ity of nebulizer 00:00: (eight) [place] solution 00 hours as Medical needed for Branch Wheezing or Shortness of Breath. fluticasone 2020-0 Yes [id number] 1{puff} Inhale 1 Univers propionate 1-08 Puff every ity of 110 00:00: 12 [place] mcg/actuati 00 (twelve) Medi norma on inhaler hours. Branch carBAMazepi 2020-0 Yes [id number] 400mg Take 1 Univers ne 400 mg 1-08 tablet by ity o f 12 hr 00:00: mouth 2 [place] tablet 00 (two) Medical times Branch daily. triamcinolo 2020-0 Yes [id number] Apply to Univers ne 1-08 area(s) 2 ity of acetonide 00:00: (two) [place] 0.1 % cream 00 times Medical daily. Branch tretinoin 2020-0 Yes [id number] 1g Apply 1 g Univers 0.075 % 1-08 to area(s) ity of Crea 00:00: at [place] 00 bedtime. Medical Branch doxepin 50 2020-0 Yes [id number] 50mg Take 1 Un anju mg capsule 1-08 capsule by ity of 00:00: mouth at [place] 00 bedtime. Medical Branch ipratropium 2020-0 Yes [id number] .5mg Inhale 2.5 Univers 0.02 % 1-08 mL every 8 ity of nebulizer 00:00: (eight) [place] solution 00 hours as Medical needed for Branch Wheezing or Shortness of Breath. fluticasone 2020-0 Yes [id number] 1{puff} Inhale 1 [facility] propionate 1-08 Puff every ity of 110 00:00: 12 [place] mcg/actuati 00 (twelve) Medi norma on inhaler hours. Branch carBAMazepi 2020-0 Yes [id number] 400mg Take 1 Univers ne 400 mg 1-08 tablet by ity o f 12 hr 00:00: mouth 2 [place] tablet 00 (two) Medical times Branch daily. triamcinolo 2020-0 Yes [id number] Apply to Univers ne 1-08 area(s) 2 ity of acetonide 00:00: (two) [place] 0.1 % cream 00 times Medical daily. Branch tretinoin 2020-0 Yes [id number] 1g Apply 1 g Univers 0.075 % 1-08 to area(s) ity of Crea 00:00: at [place] 00 bedtime. Medical Branch doxepin 50 2020-0 Yes [id number] 50mg Take 1 Un anju mg capsule 1-08 capsule by ity of 00:00: mouth at [place] 00 bedtime. Medical Branch ipratropium 2020-0 Yes [id number] .5mg Inhale 2.5 Univers 0.02 % 1-08 mL every 8 ity of nebulizer 00:00: (eight) [place] solution 00 hours as Medical needed for Branch Wheezing or Shortness of Breath. fluticasone 2020-0 Yes [id number] 1{puff} Inhale 1 [facility] propionate 1-08 Puff every ity of 110 00:00: 12 [place] mcg/actuati 00 (twelve) Medi norma on inhaler hours. Branch carBAMazepi 2020-0 Yes [id number] 400mg Take 1 Univers ne 400 mg 1-08 tablet by ity o f 12 hr 00:00: mouth 2 [place] tablet 00 (two) Medical times Branch daily. triamcinolo 2020-0 Yes [id number] Apply to Univers ne 1-08 area(s) 2 ity of acetonide 00:00: (two) [place] 0.1 % cream 00 times Medical daily. Branch tretinoin 2020-0 Yes [id number] 1g Apply 1 g Univers 0.075 % 1-08 to area(s) ity of Crea 00:00: at [place] 00 bedtime. Medical Branch doxepin 50 2020-0 Yes [id number] 50mg Take 1 Un anju mg capsule 1-08 capsule by ity of 00:00: mouth at [place] 00 bedtime. Medical Branch ipratropium 2020-0 Yes [id number] .5mg Inhale 2.5 Univers 0.02 % 1-08 mL every 8 ity of nebulizer 00:00: (eight) [place] solution 00 hours as Medical needed for Branch Wheezing or Shortness of Breath. fluticasone 2020-0 Yes [id number] 1{puff} Inhale 1 Univers propionate 1-08 Puff every ity of 110 00:00: 12 [place] mcg/actuati 00 (twelve) Medi norma on inhaler hours. Branch carBAMazepi 2020-0 Yes [id number] 400mg Take 1 Univers ne 400 mg 1-08 tablet by ity o f 12 hr 00:00: mouth 2 [place] tablet 00 (two) Medical times Branch daily. triamcinolo 2020-0 Yes [id number] Apply to Univers ne 1-08 area(s) 2 ity of acetonide 00:00: (two) [place] 0.1 % cream 00 times Medical daily. Branch tretinoin 2020-0 Yes [id number] 1g Apply 1 g Univers 0.075 % 1-08 to area(s) ity of Crea 00:00: at [place] 00 bedtime. Medical Branch doxepin 50 2020-0 Yes [id number] 50mg Take 1 Un anju mg capsule 1-08 capsule by ity of 00:00: mouth at [place] 00 bedtime. Medical Branch ipratropium 2020-0 Yes [id number] .5mg Inhale 2.5 Univers 0.02 % 1-08 mL every 8 ity of nebulizer 00:00: (eight) [place] solution 00 hours as Medical needed for Branch Wheezing or Shortness of Breath. fluticasone 2020-0 Yes [id number] 1{puff} Inhale 1 Univers propionate 1-08 Puff every ity of 110 00:00: 12 [place] mcg/actuati 00 (twelve) Medi norma on inhaler hours. Branch carBAMazepi 2020-0 Yes [id number] 400mg Take 1 Univers ne 400 mg 1-08 tablet by ity o f 12 hr 00:00: mouth 2 [place] tablet 00 (two) Medical times Branch daily. triamcinolo 2020-0 Yes [id number] Apply to Univers ne 1-08 area(s) 2 ity of acetonide 00:00: (two) [place] 0.1 % cream 00 times Medical daily. Branch tretinoin 2020-0 Yes [id number] 1g Apply 1 g Univers 0.075 % 1-08 to area(s) ity of Crea 00:00: at [place] 00 bedtime. Medical Branch doxepin 50 2020-0 Yes [id number] 50mg Take 1 Un anju mg capsule 1-08 capsule by ity of 00:00: mouth at [place] 00 bedtime. Medical Branch ipratropium 2020-0 Yes [id number] .5mg Inhale 2.5 Univers 0.02 % 1-08 mL every 8 ity of nebulizer 00:00: (eight) [place] solution 00 hours as Medical needed for Branch Wheezing or Shortness of Breath. Immunizations Ordered Filled Immunization Date Status Comments [facility] e Immunization Name Name SARS-COV-2 COVID-19 2022-01-23 Completed Unive rsity of MODERNA 0.25ML 00:00:00 [place] Medi norma BOOSTER VACCINE Branch SARS-COV-2 COVID-19 2022-01-23 Completed Unive rsity of MODERNA 0.25ML 00:00:00 [place] Medi norma BOOSTER VACCINE Branch SARS-COV-2 COVID-19 2022-01-23 Completed Unive rsity of MODERNA 0.25ML 00:00:00 [place] Medi norma BOOSTER VACCINE Branch SARS-COV-2 COVID-19 2022-01-23 Completed Unive rsity of MODERNA 0.25ML 00:00:00 [place] Medi norma BOOSTER VACCINE Branch SARS-COV-2 COVID-19 2022-01-23 Completed Unive rsity of MODERNA 0.25ML 00:00:00 [place] Medi norma BOOSTER VACCINE Branch SARS-COV-2 COVID-19 2022-01-23 Completed Unive rsity of MODERNA 0.25ML 00:00:00 [place] Medi norma BOOSTER VACCINE Branch SARS-COV-2 COVID-19 2022-01-23 Completed Unive rsity of MODERNA 0.25ML 00:00:00 [place] Medi norma BOOSTER VACCINE Branch SARS-COV-2 COVID-19 2022-01-23 Completed Unive rsity of MODERNA 0.25ML 00:00:00 [place] Medi norma BOOSTER VACCINE Branch SARS-COV-2 COVID-19 2022-01-23 Completed Unive rsity of MODERNA 0.25ML 00:00:00 [place] Medi norma BOOSTER VACCINE Branch SARS-COV-2 COVID-19 2022-01-23 Completed Unive rsity of MODERNA 0.25ML 00:00:00 [place] Medi norma BOOSTER VACCINE Branch SARS-COV-2 COVID-19 2020-11-14 Completed Unive rsity of MODERNA VACCINE 00:00:00 [place] Med ical Branch SARS-COV-2 COVID-19 2020-11-14 Completed Unive rsity of MODERNA VACCINE 00:00:00 [place] Med ical Branch SARS-COV-2 COVID-19 2020-11-14 Completed Unive rsity of MODERNA VACCINE 00:00:00 [place] Med ical Branch SARS-COV-2 COVID-19 2020-11-14 Completed Unive rsity of MODERNA VACCINE 00:00:00 [place] Med ical Branch SARS-COV-2 COVID-19 2020-11-14 Completed Unive rsity of MODERNA VACCINE 00:00:00 [place] Med ical Branch SARS-COV-2 COVID-19 2020-11-14 Completed Unive rsity of MODERNA VACCINE 00:00:00 [place] Med ical Branch SARS-COV-2 COVID-19 2020-11-14 Completed Unive rsity of MODERNA VACCINE 00:00:00 [place] Med ical Branch SARS-COV-2 COVID-19 2020-11-14 Completed Unive rsity of MODERNA VACCINE 00:00:00 [place] Med ical Branch SARS-COV-2 COVID-19 2020-11-14 Completed Unive rsity of MODERNA VACCINE 00:00:00 [place] Med ical Branch SARS-COV-2 COVID-19 2020-11-14 Completed Unive rsity of MODERNA VACCINE 00:00:00 [place] Med ical Branch SARS-COV-2 COVID-19 2020-11-14 Completed Unive rsity of MODERNA VACCINE 00:00:00 [place] Med ical Branch SARS-COV-2 COVID-19 2020-11-14 Completed Unive rsity of MODERNA VACCINE 00:00:00 [place] Med ical Branch SARS-COV-2 COVID-19 2020-11-14 Completed Unive rsity of MODERNA 12+ YRS 00:00:00 [place] Med ical VACCINE Branch SARS-COV-2 COVID-19 2020-11-14 Completed Unive rsity of MODERNA 12+ YRS 00:00:00 [place] Med ical VACCINE Branch SARS-COV-2 COVID-19 2020-11-14 Completed Unive rsity of MODERNA 12+ YRS 00:00:00 [place] Med ical VACCINE Branch SARS-COV-2 COVID-19 2020-10-17 Completed Unive rsity of MODERNA VACCINE 00:00:00 [place] Med ical Branch SARS-COV-2 COVID-19 2020-10-17 Completed Unive rsity of MODERNA VACCINE 00:00:00 [place] [facility] ical Branch SARS-COV-2 COVID-19 2020-10-17 Completed Unive rsity of MODERNA VACCINE 00:00:00 [place] Med ical Branch SARS-COV-2 COVID-19 2020-10-17 Completed Unive rsity of MODERNA VACCINE 00:00:00 [place] [facility] ical Branch SARS-COV-2 COVID-19 2020-10-17 Completed Unive rsity of MODERNA VACCINE 00:00:00 [place] [facility] ical Branch SARS-COV-2 COVID-19 2020-10-17 Completed Unive rsity of MODERNA VACCINE 00:00:00 [place] [facility] ical Branch SARS-COV-2 COVID-19 2020-10-17 Completed Unive rsity of MODERNA VACCINE 00:00:00 [place] [facility] ical Branch SARS-COV-2 COVID-19 2020-10-17 Completed Unive rsity of MODERNA VACCINE 00:00:00 [place] [facility] ical Branch SARS-COV-2 COVID-19 2020-10-17 Completed Unive rsity of MODERNA VACCINE 00:00:00 [place] [facility] ical Branch SARS-COV-2 COVID-19 2020-10-17 Completed Unive rsity of MODERNA VACCINE 00:00:00 [place] [facility] ical Branch SARS-COV-2 COVID-19 2020-10-17 Completed Unive rsity of MODERNA VACCINE 00:00:00 [place] [facility] ical Branch SARS-COV-2 COVID-19 2020-10-17 Completed Unive rsity of MODERNA VACCINE 00:00:00 [place] [facility] ical Branch SARS-COV-2 COVID-19 2020-10-17 Completed Unive rsity of MODERNA 12+ YRS 00:00:00 [place] [facility] ical VACCINE Branch SARS-COV-2 COVID-19 2020-10-17 Completed Unive rsity of MODERNA 12+ YRS 00:00:00 [place] Med ical VACCINE Branch SARS-COV-2 COVID-19 2020-10-17 Completed Unive rsity of MODERNA 12+ YRS 00:00:00 [place] [facility] ical VACCINE Branch Vital Signs Vital Name Observation Time Observation Value Comments Source Systolic blood 2022-08-05 00:16:00 126 mm[Hg] Un[facility] sity of pressure [place] [facility] Diastolic blood 2022-08-05 00:16:00 85 mm[Hg] Unive rsity of pressure [place] [facility] Heart rate 2022-08-05 00:16:00 98 /min [facility] [place] [facility] Body temperature 2022-08-05 00:16:00 37.28 Jodi [facility] [place] [facility] Respiratory rate 2022-08-05 00:16:00 20 /min [facility] [place] [facility] Body height 2022-08-05 00:16:00 167.6 cm [facility] [place] [facility] Body weight 2022-08-05 00:16:00 99.791 kg [facility] [place] [facility] BMI 2022-08-05 00:16:00 35.51 kg/m2 [facility] [place] [facility] Oxygen saturation in 2022-08-05 00:16:00 100 /min University of Arterial blood by [place] Medi norma Pulse oximetry Branch Systolic blood 2022-05-12 14:38:00 153 mm[Hg] Univer sity of pressure [place] [facility] Diastolic blood 2022-05-12 14:38:00 102 mm[Hg] Unive rsity of pressure [place] [facility] Heart rate 2022-05-12 14:38:00 79 /min [facility] [place] [facility] Body temperature 2022-05-12 14:38:00 36.17 Jodi [facility] [place] [facility] Respiratory rate 2022-05-12 14:38:00 18 /min [facility] [place] [facility] Body weight 2022-05-12 14:38:00 97.523 kg [facility] [place] [facility] BMI 2022-05-12 14:38:00 34.70 kg/m2 [facility] [place] [facility] Oxygen saturation in 2022-05-12 14:38:00 100 /min University of Arterial blood by [place] Medi norma Pulse oximetry Branch Systolic blood 2022-03-24 14:09:00 145 mm[Hg] Univer sity of pressure [place] [facility] Diastolic blood 2022-03-24 14:09:00 108 mm[Hg] Unive rsity of pressure [place] [facility] Heart rate 2022-03-24 14:09:00 90 /min [facility] [place] [facility] Body temperature 2022-03-24 14:09:00 37.28 Jodi [facility] [place] [facility] Respiratory rate 2022-03-24 14:09:00 14 /min [facility] [place] [facility] Body height 2022-03-24 14:09:00 167.6 cm [facility] [place] [facility] Body weight 2022-03-24 14:09:00 95.255 kg [facility] [place] [facility] BMI 2022-03-24 14:09:00 33.89 kg/m2 [facility] [place] [facility] Oxygen saturation in 2022-03-24 14:09:00 100 /min University of Arterial blood by [facility] Pulse oximetry Branch Systolic blood 2022-02-18 02:00:00 147 mm[Hg] Univer sity of pressure [place] [facility] Diastolic blood 2022-02-18 02:00:00 95 mm[Hg] Unive rsity of pressure [place] [facility] Heart rate 2022-02-18 02:00:00 78 /min [facility] [place] [facility] Respiratory rate 2022-02-18 02:00:00 18 /min [facility] [place] [facility] Oxygen saturation in 2022-02-18 02:00:00 99 /min University of Arterial blood by [facility] Pulse oximetry Branch Body temperature 2022-02-17 23:30:00 37.06 Jodi [facility] [place] [facility] Body weight 2022-02-17 23:30:00 98.158 kg [facility] [place] [facility] BMI 2022-02-17 23:30:00 34.93 kg/m2 [facility] [place] [facility] Systolic blood 2022-02-17 23:10:00 146 mm[Hg] Univer sity of pressure [place] [facility] Diastolic blood 2022-02-17 23:10:00 101 mm[Hg] Unive rsity of pressure [place] [facility] Heart rate 2022-02-17 23:10:00 67 /min [facility] [place] [facility] Body temperature 2022-02-17 23:10:00 37.56 Jodi [facility] [place] [facility] Respiratory rate 2022-02-17 23:10:00 18 /min [facility] [place] [facility] Body height 2022-02-17 23:10:00 167.6 cm [facility] [place] [facility] Body weight 2022-02-17 23:10:00 95.255 kg [facility] [place] [facility] BMI 2022-02-17 23:10:00 33.89 kg/m2 [facility] [place] [facility] Oxygen saturation in 2022-02-17 23:10:00 100 /min University of Arterial blood by [facility] Pulse oximetry Branch Systolic blood 2022-01-26 18:37:00 120 mm[Hg] Univer sity of pressure [place] [facility] Diastolic blood 2022-01-26 18:37:00 77 mm[Hg] Unive rsity of pressure [place] [facility] Heart rate 2022-01-26 18:36:00 88 /min [facility] [place] [facility] Body temperature 2022-01-26 18:36:00 36.67 Jodi [facility] [place] [facility] Respiratory rate 2022-01-26 18:36:00 18 /min [facility] [place] [facility] Body height 2022-01-26 18:36:00 165.1 cm [facility] [place] [facility] Body weight 2022-01-26 18:36:00 96.616 kg [facility] [place] [facility] BMI 2022-01-26 18:36:00 35.45 kg/m2 [facility] [place] [facility] Oxygen saturation in 2022-01-26 18:36:00 100 /min University of Arterial blood by [facility] Pulse oximetry Branch Systolic blood 2021-11-24 09:19:00 125 mm[Hg] Univer sity of pressure [place] [facility] Diastolic blood 2021-11-24 09:19:00 81 mm[Hg] Unive rsity of pressure [place] [facility] Heart rate 2021-11-24 09:19:00 67 /min [facility] [place] [facility] Respiratory rate 2021-11-24 09:19:00 19 /min [facility] [place] [facility] Oxygen saturation in 2021-11-24 09:19:00 99 /min University of Arterial blood by [facility] norma Pulse oximetry Branch Body temperature 2021-11-24 03:00:00 36.78 Jodi [facility] [place] [facility] Body height 2021-11-24 03:00:00 165.1 cm [facility] [place] [facility] Body weight 2021-11-24 03:00:00 97.523 kg [facility] [place] [facility] BMI 2021-11-24 03:00:00 35.78 kg/m2 Universi [facility] Systolic blood 2021-11-21 21:13:00 127 mm[Hg] Univer sity of pressure [facility] Diastolic blood 2021-11-21 21:13:00 91 mm[Hg] Unive rsity of pressure [facility] Heart rate 2021-11-21 20:50:00 81 /min [facility] Body temperature 2021-11-21 20:50:00 37 Jodi [facility] [place] [place] Respiratory rate 2021-11-21 20:50:00 18 /min [facility] [place] [place] Body height 2021-11-21 20:50:00 165.1 cm [facility] Body weight 2021-11-21 20:50:00 97.523 kg [facility] BMI 2021-11-21 20:50:00 35.78 kg/m2 [facility] Procedures Procedure Date / Time Performed Performing Clinician [facility] e XR HAND 3+ VW LEFT 2022-08-05 00:55:28 Nii Bonilla [facility] CONSENT/REFUSAL FOR 2022-08-04 23:55:33 Doctor Unassigned, No [facility] [place] DIAGNOSIS AND Name Medical Branch TREATMENT XR FINGERS 2 VW LEFT 2022-05-12 15:57:11 Ciarra Frank [facility] XR WRIST 3+ VW LEFT 2022-05-12 15:57:11 Ciarra Frank [facility] CONSENT/REFUSAL FOR 2022-05-12 14:32:26 Doctor Unassigned, No [facility] [place] DIAGNOSIS AND Name Medical Branch TREATMENT CONSENT/REFUSAL FOR 2022-03-24 14:06:23 Doctor Unassigned, No [facility] [place] DIAGNOSIS AND Name Medical Branch TREATMENT US PELVIS COMPLETE 2022-02-18 01:07:39 Natalie Almendarez [facility] [place] [facility] NON-OB [facility] CT ABDOMEN PELVIS W 2022-02-18 00:35:22 Natalie Almendarez [facility] [place] [facility] CONTRAST [facility] POCT TEST 2022-02-18 00:22:00 Natalie Almendarez [facility] TEST, SERUM 2022-02-18 00:21:00 Natalie Almendarez [facility] COMP. METABOLIC PANEL 2022-02-18 00:21:00 Natalie Almendarez [facility] ([id number]) [facility] [place] CBC WITH DIFF 2022-02-18 00:21:00 Natalie Almendarez [facility] URINALYSIS 2022-02-18 00:21:00 Natalie Almendarez [facility] CONSENT/REFUSAL FOR 2022-02-17 23:21:20 Doctor Unassigned, No [facility] [place] DIAGNOSIS AND Name [facility] [place] TREATMENT SARS-COV-2 COVID-19 2022-01-23 19:36:51 Doctor Unassigned, No [facility] [place] VACCINE Name [facility] BOOSTER,0.25ML,IM (MODERNA) US OVARY TORSION 2021-11-24 08:01:43 Arianna Whitmore [facility] CT ABDOMEN PELVIS W 2021-11-24 04:24:09 Arianna [facility]more [facility] CONTRAST [facility] POCT TEST 2021-11-24 03:18:00 Airanna Whitmore [facility] LIPASE 2021-11-24 03:17:00 Arianna Whitmore [facility] COMP. METABOLIC PANEL 2021-11-24 03:17:00 Arianna Whitmore [facility] ([id number]) [facility] CBC WITH DIFF 2021-11-24 03:17:00 Arianna Whitmore [facility] URINALYSIS 2021-11-24 03:17:00 Arianna Whitmore [facility] NOTICE OF PRIVACY 2021-11-24 02:50:34 Doctor Unassigned, No [facility] [place] PRACTICES Name [facility] CONSENT/REFUSAL FOR 2021-11-24 02:50:13 Doctor Unassigned, No [facility] [place] DIAGNOSIS AND [facility] TREATMENT Encounters Start End Encounter Admission Attending Care Care Encounter Source Date/Time Date/Time Type Type Clinicians Facility Department ID 2021-06-10 Emergency [facility] [id number] Univers 21:56:[address] [facility] [place] [place] 2021-06-10 Emergency [facility] [id number] Univers 11:43:59 ity of [facility] 2021-06-10 Emergency [facility] [id number] Univers 11:18:46 ity of [facility] 2021-06-10 Emergency [facility] [id number] Univers 09:58:36 ity of [facility] 2021-06-09 Emergency [facility] [id number] Univers 00:40:14 ity of [facility] 2021-06-08 Emergency [facility] [facility] [id number] Univers 04:28:04 ity of [facility] 2021-06-07 Emergency [facility] [id number] Univers 16:30:58 ity of [facility] 2021-06-06 Emergency [facility] [id number] Univers 17:46:29 it of [facility] 2023-01-07 2023-01-07 Outpatient R SARAH [facility] [id number] Univers 09:45:00 09:45:[address] [facility] [place] [place] 2023-01-06 2023-01-06 Outpatient R MONTANA [facility] [id number] Univers 15:20:00 15:20:[address] [facility] [place] [place] 2022-08-16 2022-08-16 Outpatient R DIEGO, [facility] [id number] Univers 11:30:00 11:47:[address] [facility] [place] [place] 2022-08-16 2022-08-16 Laboratory Only, Ang Db Test [facility] 1.2.8 40.114 [id number] Univers 11:30:00 11:45:00 Only Unknown, Attending HEALTH 350.1.13.10 ity of [place] 4.2.7.2.686 Kamran as EMILIO?BLEA [phone] Pa junior [address] MEDICAL OFFICE BUILDING 2022-08-04 2022-08-04 Emergency X AUFDERIDE [facility] ERT [id number] Univers 18:18:00 20:38:00 , NII ity [facility] 2022-08-04 2022-08-[address] [facility] 1.2.840.114 [id number] Univers 18:18:00 20:38:00 , Nii PAM 350.1.13.10 i ty of Sonal [place] 4.2.7.2.686 [facility] [phone] [facility] [address] 2022-05-12 2022-05-12 Emergency X [facility] ERT [id number] Univers 09:39:00 12:15:[address] [facility] [place] [place] 2022-05-12 2022-05-12 Emergency [facility] 1.2.597.065 [id number] Univers 09:39:00 12:15:00 Ciarra OROZCO 350.1.13.10 i ty of [place] 4.2.7.2.686 [facility] [id number] [address] 2022-04-29 2022-04-29 Outpatient Sona SMITH [facility] [id number] Univers 09:30:00 09:30:00 [facility] 2022-04-23 2022-04-23 Outpatient R SARAH [facility] [id number] Univers 14:30:00 14:30:00 [facility] 2022-04-22 [facility] [id number] Univers 11:15:00 11:15:00 [facility] 2022-04-08 2022-04-08 Outpatient Sona WILLIAM [facility] [id number] Univers 10:00:00 10:00:[address] [facility] [place] [place] 2022-04-03 2022-04-03 Outpatient R SARAH [facility] [id number] Univers 08:30:00 08:30:[address] [facility] [place] [place] 2022-03-24 2022-03-24 Emergency X RISHABH, [facility] ERT [id number] Univers 09:13:00 09:37:[address] [facility] [place] [place] 2022-03-24 2022-03-24 [facility] 1.2.840.114 [id number] Univers 09:13:00 09:37:00 Lizandro OROZCO 350.1.13.10 i ty of [facility] 4.2.7.2.686 [facility] [id number] [address] 2022-02-21 2022-02-21 Outpatient R SIMI, [facility] [id number] Univers 00:00:00 00:00:00 BRITTANY juliana [facility] 2022-02-20 2022-02-20 [facility] [id number] Univers 15:30:00 15:30:[address] [facility] [place] [place] 2022-02-18 2022-02-18 Outpatient R SARAH, [facility] [id number] Univers 14:30:00 14:30:[address] [facility] [place] [place] 2022-02-17 2022-02-17 Emergency X [facility] ERT [id number] Univers 18:40:00 21:13:[address] [facility] [place] [place] 2022-02-17 2022-02-17 Emergency [facility] 1.2.975.178 [id number] Univers 18:40:00 21:13:00 Natalie OROZCO 350.1.13.10 i ty of [place] 4.2.7.2.686 [facility] [id number] [address] 2022-02-17 2022-02-17 Nurse Nurse, [facility] 1.2.840.114 [id number] Univers 18:15:00 18:35:00 Visit Francis Bower [facility] 350.1.13.10 ity [facility] 4.2.7.2.686 Kamran as EMILIO?BLEA [id number] [address] MEDICAL OFFICE BUILDING 2022-02-17 2022-02-17 Outpatient R JOSH [facility] [id number] Univers 18:15:00 18:15:00 FRANCIS isaacs o f [facility] 2022-01-28 2022-01-28 [facility] [id number] Univers 15:30:00 15:30:[address] [facility] [place] [place] 2022-01-27 2022-01-27 Letter EDWARD Kaur 1.2.840.114 [id number] Univers 00:00:00 00:00:00 (Out) Xochitl Stanford ASHLEY 350.1.13.10 it y of HOSPITAL 4.2.7.2.686 Kamran as [id number] [address] 2022-01-26 2022-01-26 [facility] [id number] Univers 13:40:00 14:06:12 SHANNAN christyjuliana o f [facility] 2022-01-26 2022-01-26 Urgent [facility] 1.2.840.114 [id number] Univers 13:40:00 14:06:12 Care Shannan [facility] 350.1.13.10 ity of [place] 4.2.7.2.686 Kamran as EMILIO?BLEA [id number] [facility] [address] MEDICAL OFFICE [facility] 2022-01-26 2022-01-26 Letter Provider, [facility] 1.2.272.578 [id number] Univers 00:00:00 00:00:00 (Out) Aurelio Flores HEALTH 350.1.13.10 it y of Urgent Care [place] 4.2.7.2.686 [place] EMILIO?BLEA [id number] [facility] [address] MEDICAL OFFICE [facility] 2022-01-23 2022-01-23 Imm/Inj Vaccine, Ang Db Cbc Fam [facility] 1. 2.840.114 [id number] Univers 14:00:00 14:10:00 Visit Dominic Peralta [facility] 350.1.13. 10 ity of [place] 4.2.7.2.686 Kamran as EMILIO?BLEA [phone] [facility] [address] MEDICAL OFFICE [facility] 2022-01-23 2022-01-23 Outpatient [facility] [id number] Univers 14:00:00 14:00:00 DOMINIC isaacs [facility] 2022-01-22 2022-01-22 [facility] [id number] Univers 14:40:00 14:40:00 CHEIKH isaacs [facility] 2021-12-27 2021-12-27 Outpatient R SIMI [facility] [id number] Univers 00:00:00 00:00:00 BRITTANY ity [facility] 2021-11-28 2021-11-28 Letter VincentEDWARD barahona 1.2.840.114 [id number] Univers 00:00:00 00:00:00 (Out) Xochitl RAMIREZ 350.1.13.10 it y of [facility] 4.2.7.2.686 Kamran as [phone] [facility] [address] 2021-11-27 2021-11-27 Laboratory Only, Ang Db Test [facility] 1.2.8 40.114 [id number] Univers 15:15:00 15:30:00 Only Sera Worthy [facility] 350.1.13.10 ity of [place] 4.2.7.2.686 Kamran as EMILIO?BLEA [id number] [facility] [address] MEDICAL OFFICE BUILDING 2021-11-27 2021-11-27 Outpatient R CORTEZ [facility] [id number] Univers 15:15:00 15:15:[address] [facility] [place] [place] 2021-11-23 2021-11-24 Emergency X YARIWA, [facility] ERT [id number] Univers 22:04:00 04:27:[address] [facility] [place] [place] 2021-11-23 2021-11-24 Emergency [facility], [facility] 1.2.865.533 [id number] Univers 22:04:00 04:27:00 Arianna OROZCO 350.1.13.10 ity of [place] 4.2.7.2.686 [place] [phone] [facility] [address] 2021-11-21 2021-11-21 Office Adum, [facility] 1.2.840.114 [id number] Univers 15:30:00 16:15:19 Visit Brittany OROZCO 350.1.13.10 ity of [place] 4.2.7.2.686 [place] [facility] [phone] [facility] [address] BUILDING 2021-11-21 2021-11-21 Outpatient R AD, [facility] [id number] Univers 15:30:00 16:15:19 BRITTANY isaacs [facility] 2021-11-21 2021-11-21 Outpatient R ADUM, [facility] [id number] Univers 15:30:00 15:30:00 BRITTANY isaacs [facility] 2021-11-21 2021-11-21 Letter [facility] 1.2.840.114 [id number] Univers 00:00:00 00:00:00 (Out) Brittany OROZCO 350.1.13.10 ity [facility] 4.2.7.2.686 [place] [facility] [phone] Pa dical [address] 2021-11-06 2021-11-07 Outpatient X ADJENNIFER, [facility] WANDA [id number] Univers 07:15:00 09:35:00 BRTITANY isaacs [facility] 2021-11-06 2021-11-07 Emergency Micheal Mayer [facility] 1.2.840. 114 [id number] Univers 07:15:00 09:35:00 Brittany Belcher 350.1.13.10 ity [facility] 4.2.7.2.[place] [phone] [facility] [address] 2021-10-04 2021-10-04 Letter EDWARD Kaur 1.2.840.114 [id number] Univers 00:00:00 00:00:00 (Out) Xochitl RAMIREZ 350.1.13.10 it y [facility] 4.2.7.2.686 Kamran as [phone] [facility] [address] 2021-10-03 2021-10-03 Outpatient R ZOEY III, [facility] [id number] Univers 17:20:00 18:22:13 GAMALIEL ity [facility] 2021-09-14 2021-09-14 Emergency X ZAC [facility] ERT [id number] Univers 20:00:00 20:59:00 CIARRA ity [facility] 2021-09-14 2021-09-14 Emergency [facility] 1.2.281.424 [id number] Univers 20:00:00 20:59:00 Ciarra OROZCO 350.1.13.10 i ty [facility] 4.2.7.2.686 [facility] [phone] [facility] [address] 2021-09-09 2021-09-09 Emergency X Susana DANIELS [facility] ERT [id number] Univers 15:35:00 17:06:00 ity of [facility] 2021-09-09 2021-09-09 Emergency Susana Daniels [facility] 1.2.840.114 [id number] Univers 15:35:00 17:06:00 Sarah OROZCO 350.1.13.10 i ty of [place] 4.2.7.2.686 [facility] [phone] [facility] [address] 2021-09-09 2021-09-09 Orders Doctor EDWARD 1.2.840.114 [id number] Univers 00:00:00 00:00:00 Only Unassigned, ASHLEY 350.1.13.10 ity of [place] [facility] 4.2.7.2.686 Kamran as [phone] [facility] [address] 2021-08-27 2021-08-27 Laboratory Only, Ang Db Test [facility] 1.2.8 40.114 [id number] Univers 11:45:00 12:00:00 Only Shannan Steward [facility] 350.1.13.10 ity of [place] 4.2.7.2.686 Kamran as EMILIO?BLEA [phone] [address] MEDICAL OFFICE BUILDING 2021-08-27 2021-08-27 Outpatient R BIN [facility] [id number] Univers 11:45:00 11:59:56 SHANNAN christyy o f [facility] 2021-08-27 2021-08-27 Letter Provider, [facility] 1.2.150.870 [id number] Univers 00:00:00 00:00:00 (Out) Urgent Care HEALTH 350.1.13.10 ity of Day [place] 4.2.7.2.686 Kamran as EMILIO?BLEA [id number] [address] MEDICAL OFFICE BUILDING 2021-08-19 2021-08-19 Outpatient R IVÁN [facility] [id number] Univers 18:20:00 19:19:45 [facility] 2021-08-19 2021-08-19 Urgent Jooj Minor [facility] 1.2.840. 114 [id number] Univers 18:20:00 18:40:00 Care Jose Malena HEALTH 350.1.13.10 ity of [facility] 4.2.7.2.686 Kamran as EMILIO?BLEA [id number] [address] MEDICAL OFFICE BUILDING 2021-08-19 2021-08-19 Orders Doctor EDWARD 1.2.840.114 [id number] Univers 00:00:00 00:00:00 Only Unassigned, ASHLEY 350.1.13.10 ity of [place] [facility] 4.2.7.2.686 Kamran as [id number] [address] 2021-08-01 2021-08-01 Urgent Tomasa William [facility] 1.2.840.114 [id number] Univers 10:20:00 10:40:00 Care TommybrySera [facility] 350.1.13.10 ity of [place] 4.2.7.2.686 Kamran as EMILIO?BLEA [id number] [address] MEDICAL OFFICE [facility] 2021-08-01 2021-08-01 Outpatient R CORTEZ [facility] [id number] Univers 10:20:00 10:20:00 [facility] 2021-06-27 2021-06-27 Outpatient R SARAH [facility] [id number] Univers 09:00:00 09:00:[address] [facility] [place] [place] 2021-06-09 2021-06-09 Urgent Tommyalfredradha [facility] 1.2.840.114 [id number] Univers 14:25:24 14:45:24 Care Stewart [facility] 350.1.13.10 ity of [place] 4.2.7.2.686 Kamran as EMILIO?BLEA [id number] [address] MEDICAL OFFICE BUILDING 2021-06-09 2021-06-09 Outpatient R CORTEZ [facility] [id number] Univers 14:40:00 14:40:[address] [facility] [place] [place] 2021-04-21 2021-04-21 Telephone EDWARD Coello 1.2.245.288 [id number] Univers 00:00:00 00:00:00 Kaley Roberts ASHLEY 350.1.13.10 i ty of [facility] 4.2.7.2.686 Kamran as [phone] [facility] [address] 2021-04-20 2021-04-20 Urgent [facility] 1.2.840.114 [id number] Univers 11:16:01 11:52:08 Care [facility] 350.1.13.10 it y of [place] 4.2.7.2.686 Kmaran as Emilio?Blea [phone] [address] Medical Office Building 2021-04-20 2021-04-20 Outpatient Sona WILLIAM [facility] [id number] Univers 11:20:00 11:20:00 [facility] 2021-04-19 2021-04-19 Emergency [facility] 1.2.853.384 [id number] Univers 18:56:00 19:59:00 Ciarra Edwards [place] 350.1.13.10 i ty of [place] 4.2.7.2.686 [place] [phone] [facility] [address] 2021-04-12 2021-04-12 Outpatient Sona BOYLE [facility] [id number] Univers 15:00:00 15:00:[address] [facility] [place] [place] 2021-03-17 2021-03-17 Outpatient Sona COOPER [facility] [id number] Univers 20:00:00 20:00:00 , TRUPTI [facility] [place] [place] 2021-01-30 2021-01-30 Outpatient Sona ESTRADA [facility] [id number] Univers 11:15:00 11:15:[address] [facility] [place] [place] 2021-01-24 2021-01-24 Outpatient Sona SMITH [facility] [id number] Univers 08:00:00 08:00:[address] [facility] [place] [place] 2021-01-21 2021-01-21 Outpatient Sona SMITH [facility] [id number] Univers 10:00:00 10:00:[address] [facility] [place] [place] 2021-01-17 2021-01-17 Outpatient Sona BOYLE [facility] [id number] Univers 16:00:00 16:00:00 CHEIKH juliana [facility] 2021-01-15 2021-01-15 Outpatient Sona VIDYA BUENO [facility] [id number] Univers 09:20:00 09:20:[address] [facility] [place] [place] 2020-12-25 2020-12-25 Outpatient Sona XIMENA VIDYA [facility] [id number] Univers 10:40:00 10:40:[address] [facility] [place] [place] 2020-12-20 2020-12-20 Outpatient Sona BOYLE [facility] [id number] Univers 11:20:00 11:20:[address] [facility] [place] [place] 2020-12-18 2020-12-18 Outpatient Sona SMITH [facility] [id number] Univers 10:00:00 10:00[facility] 2020-12-10 2020-12-10 Outpatient Sona SMITH [facility] [id number] Univers 00:00:00 00:00:00 [facility] 2020-12-06 2020-12-06 Outpatient Sona ESTRADA [facility] [id number] Univers 15:30:00 15:30:00 [facility] 2020-12-04 2020-12-04 Outpatient Sona SMITH [facility] [id number] Univers 09:45:00 09:45:00 [facility] 2020-11-27 2020-11-27 Outpatient Sona SAMPSON [facility] [id number] Univers 14:30:00 14:30:[address] [facility] [place] [place] 2020-11-27 2020-11-27 Outpatient Sona ESTRADA [facility] [id number] Univers 09:00:00 09:00:00 [facility] 2020-11-22 2020-11-22 Outpatient Sona BOYLE [facility] [id number] Univers 13:20:00 13:20:[address] [facility] [place] [place] 2020-11-15 2020-11-15 Outpatient R SEAN [facility] [id number] Univers 13:30:00 13:30:[address] [facility] [place] [place] 2020-11-14 2020-11-14 Outpatient R YESENIA [facility] [id number] Univers 16:00:00 16:00:00 KEHINDE juliana [facility] 2020-11-08 2020-11-08 Outpatient R SEAN [facility] [id number] Univers 11:00:00 11:00:[address] [facility] [place] [place] 2020-10-17 2020-10-17 Outpatient R MONTANA [facility] [id number] Univers 16:20:00 16:20:[address] [facility] [place] [place] 2020-10-17 2020-10-17 Outpatient R YESENIA [facility] [id number] Univers 16:00:00 16:00:[address] [facility] [place] [place] 2020-10-15 2020-10-15 Outpatient R SARAH [facility] [id number] Univers 10:00:00 10:00:00 [facility] 2020-08-24 2020-08-24 Outpatient R [facility] [id number] Univers 17:20:00 17:20:[address] [facility] [place] [place] 2020-08-06 2020-08-06 Outpatient R SARAH [facility] [id number] Univers 14:15:00 14:15:00 [facility] 2020-07-02 2020-07-02 Outpatient R SARAH [facility] [id number] Univers 10:45:00 10:45:00 [facility] 2020-06-22 2020-06-22 Outpatient R MONTANA [facility] [id number] Univers 11:20:00 11:20:[address] [facility] [place] [place] 2020-06-18 2020-06-18 Outpatient R JOHANA [facility] [id number] Univers 14:40:00 14:40:[address] [facility] [place] [place] 2020-06-15 2020-06-15 Outpatient R MONTANA [facility] [id number] Univers 10:00:00 10:00:00 CHEIKH isaacs [facility] 2020-05-18 2020-05-18 Outpatient R MONTANA [facility] [id number] Univers 15:40:00 15:40:00 CHEIKH isaacs [facility] 2020-03-20 2020-03-20 Outpatient R MARCELO, [facility] [id number] Univers 14:00:00 14:00:00 IVANSRA isaacs [facility] 2020-03-13 2020-03-13 Outpatient R MONTANA [facility] [id number] Univers 10:40:00 10:40:00 CHEIKH isaacs [facility] 2020-03-02 2020-03-02 Outpatient R AGUSTO DARLING [facility] [id number] Univers 11:00:00 11:00:00 AGUSTO DARLING i [facility] 2020-02-29 2020-02-29 Outpatient R MONTANA [facility] [id number] Univers 10:00:00 10:00:00 CHEIKH isaacs [facility] 2020-02-27 2020-02-27 Outpatient R MONTANA [facility] [id number] Univers 13:00:00 13:00:00 CHEIKH juliana [facility] 2020-01-24 2020-01-24 Emergency X AYAKARIMA, [facility] ERT [id number] Univers 07:37:42 12:12:00 ARIANNA shital [facility] 2020-01-11 2020-01-11 Outpatient R ERNESTO [facility] [id number] Univers 13:00:00 13:00:00 NEAL juliana [facility] 2020-01-04 2020-01-04 Outpatient R ERNESTO [facility] [id number] Univers 14:30:00 14:30:00 NEAL juliana [facility] 2020-01-03 2020-01-03 [facility] [id number] Univers 14:00:00 14:00:00 NEAL juliana [facility] 2019-12-20 2019-12-20 Outpatient R MARCELO [facility] [id number] Univers 14:00:00 14:00:00 IVAN isaacs [facility] 2019-12-15 2019-12-15 Outpatient R ESTER [facility] [id number] Univers 12:30:00 12:30:00 ANTONETTE isaacs [facility] 2019-12-12 2019-12-12 Outpatient R AGUSTO DARLING [facility] 10 [id number] Univers 10:00:00 10:00:00 AGUSTO DARLING i ty [facility] 2019-12-09 2019-12-09 Outpatient R JENNIEDEDEMARISADANTE [facility] [id number] Univers 14:20:00 14:20:00 CHEIKH isaacs [facility] 2019-12-02 2019-12-02 Outpatient R VIPUL DARLINGPABLOGwendolyn [facility] 10 [id number] Univers 11:40:00 11:40:00 AGUSTO DARLING i ty [facility] 2019-12-01 2019-12-01 Outpatient R MEME [facility] [id number] Univers 09:00:00 09:00:00 ALBA isaacs [facility] 2019-11-29 2019-11-29 Outpatient R MEME [facility] [id number] Univers 13:00:00 13:00:00 ALBA isaacs [facility] 2019-11-15 2019-11-15 Outpatient R ERNESTO [facility] [id number] Univers 09:45:00 09:45:00 NEAL shital [facility] 2019-11-11 2019-11-11 Outpatient R JENNIEGEORGETTE [facility] [id number] Univers 10:40:00 10:40:00 CHEIKH juliana [facility] 2019-11-04 2019-11-04 Outpatient R JENNIEGEORGETTE [facility] [id number] Univers 13:20:00 13:20:00 CHEIKH juliana [facility] 2019-11-01 2019-11-01 Outpatient R JENNIEGEORGETTE [facility] [id number] Univers 10:00:00 10:00:00 CHEIKH juliana [facility] 2019-10-28 2019-10-28 Outpatient R JENNIEDEDENATALIA [facility] [id number] Univers 12:40:00 12:40:00 CHEIKH isaacs [facility] 2019-10-25 2019-10-25 Outpatient R VIDYA BUENO [facility] [id number] Univers 11:20:00 11:20:00 VIDYA BUENO juliana [facility] 2019-10-21 2019-10-21 Outpatient R AGUSTO DARLING [facility] 10 [id number] Univers 13:00:00 13:00:00 AGUSTO DARLING i ty of [facility] 2019-10-19 2019-10-19 [facility] [id number] Univers 09:50:34 23:59:[address] [facility] [place] [place] 2019-10-17 2019-10-17 Emergency X Susana DANIELS [facility] ERT [id number] Univers 11:34:18 16:01:00 [facility]elyny [facility] [facility] 2019-10-17 2019-10-17 Outpatient R XIMENAVIDYA Hernandez [facility] [id number] Univers 11:20:00 11:20:[address] [facility] [place] [place] 2019-10-14 2019-10-14 Outpatient R LEONIDASDERIAN [facility] [id number] Univers 11:00:00 11:00:[address] [facility] [place] [place] 2019-10-12 2019-10-12 [facility] [id number] Univers 15:40:00 15:40:[address] [facility] [place] [place] 2019-10-11 2019-10-11 [facility] [id number] Univers 13:30:00 13:30:[address] [facility] [place] 2019-10-06 2019-10-06 Outpatient [facility] [id number] Univers 15:40:00 15:40:[address] [facility] [place] [place] 2019-08-31 2019-09-06 [facility] 1.2.840.114 [id number] Univers 14:47:13 18:06:25 Visit Cheikh Orozco 350.1.13.10 i ty of [place] 4.2.7.2.686 Donna Saini [phone] Me dic[address] Building 2019-09-06 2019-09-06 Residence Life Director Karen, Kalyani Cardio Fac [facility] 1. 2.840.114 [id number] Univers 13:53:00 14:53:00 Visit 2, Adc Cardio Fac Room Glennie 350.1. 13.10 ity of Rafael Ambrocioyash Esposito 4.2.7.2.686 [place] Profess[facility] [phone] [facility] [address] [employer] 2019-09-06 2019-09-06 Office Sarah [facility] [id number] [facility] 08:52:38 09:16:32 Visit Frannie Orozco 350.1.13.10 i [place] [phone] [facility] nal [address] [employer] 2019-09-01 2019-09-01 Emergency Aufderheide [facility] 1.2.840.114 [id number] Univers 09:38:47 16:33:00 , Nii Orozco 350.1.13.10 i ty of [place]onal[place] [phone] [facility] [address] 2019-08-25 2019-08-25 Ancillary Melisa Perez [facility] 1 .2.840.114 [id number] [facility] 13:03:52 15:25:05 Visit Kyle Ortiz 350.1.13.10 ity [place] [phone] [facility] nal [address] [employer] 2019-08-25 2019-08-25 [facility] 1.2.840.114 [id number] Univers 00:00:00 00:00:00 Cheikh Orozco 350.1.13.10 i ty [place] [phone] [facility] [address] [employer] 2019-08-23 2019-08-23 Telephone Rafael [facility] [id number] Univers 00:00:00 00:00:00 Nicanor Orozco 350.1.13.10 it[place] [phone] Pa dical nal [address] 2019-08-16 2019-08-16 Emergency X , [facility] ERT [id number] Univers 06:57:53 09:44:00 MICHEAL ity of [facility] 2019-04-22 2019-04-22 Office [facility] 1.2.840.114 [id number] Univers 09:04:40 09:52:08 Visit [facility] 350.1.13.10 it y of [place] Glennie 4.2.7.2.686 Kamran as Professio [phone] Pa dical nal [address] One 2019-04-22 2019-04-22 Orders Doctor EDWARD 1.2.840.114 [id number] Univers 00:00:00 00:00:00 Only Unassigned, ASHLEY 350.1.13.10 ity of [place] [facility] 4.2.7.2.686 Kamran as [phone] [address] 2019-04-11 2019-04-11 Emergency [facility] 1.2.840.114 [id number] Univers 09:18:53 09:57:00 Filomena Orozco 350.1.13.10 it[place] [phone] [facility] [address] 2019-04-11 2019-04-11 Orders Doctor EDWARD 1.2.840.114 [id number] Univers 00:00:00 00:00:00 Only Unassigned, ASHLEY 350.1.13.10 ity of [place] [facility] 4.2.7.2.686 Kamran as [phone] [address] Results Test Description Test Time Test Comments Results Result Comments Source TEST, SERUM 2022-02-18 01:04:20 Test Item Value Reference Range Interpretation Comme nts PREG SERUM (test code = 0784071186) Negative TYRON (test code = TYRON) Less than 10 IU/L. ?If low titer or ectopic is suspected, resubmit specimen in 48-72 hours. [facility]OL[facility] ([id number])2022-02-18 00:59:51 Test Item Value Reference Range Interpretation Comments NA (test code = 139 mmol/L 135-145 7687241120) K (test code = 4.2 mmol/L 3.5-5 8698310507) CL (test code = 104 mmol/L 98-108 7545655805) CO2 TOTAL (test code 27 mmol/L 23-31 = 0859210626) AGAP (test code = 2-16 5655152815) BUN (test code = 9 mg/dL 7-23 9315704841) GLUCOSE (test code = 95 mg/dL 70-110 9779297083) CREATININE (test code 0.78 mg/dL 0.5-1.04 = 2270855196) TOTAL BILI (test code 0.5 mg/dL 0.1-1.1 = 2574725116) CALCIUM (test code = 9.2 mg/dL 8.6-10.6 7024501893) T PROTEIN (test code 7.6 g/dL 6.3-8.2 = 3725550331) ALBUMIN (test code = 4.5 g/dL 3.5-5 5121042871) ALK PHOS (test code = 65 U/L 34-122 6838045354) ALTv (test code = 22 U/L 5-35 1742-6) AST(SGOT) (test code 23 U/L 13-40 = 5149567604) eGFR (test code = mL/min/1.73m2 0097369496) TYRON (test code = TYRON) Association of Glomerular Filtration Rate (GFR) and Staging of Kidney Disease* + + +- +| GFR (mL/min/1.73 m2) ?| With Kidney Damage ?| ?Without Kidney Damage+ ------+ ----+ ------+| ?>90 ?| ?Stage one ?| ? Normal ?+ -+ + -+| ?60-89 ?| ?Stage two ?| ? Decreased GFR ? + + +- +| ?30-59 ?| ?Stage three ?| ? Stage three ? + + +- +| ?15-29 ?| ?Stage four ? | ? Stage four ?+ -+ + -+| ?<15 (or dialysis) ? ?| ?Stage five ? | ? Stage five ?+ -+ + -+ *Each stage assumes the associated GFR level [...] or urine or abnormalities in imaging tests). [facility] WITH [id number] 00:41:49 Test Item Value Reference Range Interpretation Comments WBC (test code = See_Comment [Automated message] 9790-2) The system Designer Material generated this result transmitted ref erence range: 4.30 - 1 1.10 10*3/?L. The re ference range was not u sed to interpret this result as normal/abnor mal. RBC (test code = See_Comment [Automated message] 719-8) The system [employer]er [employer] generated this result transmitted ref erence range: 3.93 - 5 .25 10*6/?L. The re ference range was not u sed to interpret this result as normal/abnor mal. HGB (test code = 12.7 g/dL 11.6-15 718-7) HCT (test code = 37.8 % 35.7-45.2 4544-3) MCV (test code = 91.3 fL 80.6-95.5 787-2) MCH (test code = 30.7 pg 25.9-32.8 785-6) MCHC (test code = 33.6 g/dL 31.6-35.1 786-4) RDW-SD (test code 40.7 fL 39-49.9 = 09940-9) RDW-CV (test code 12.2 % 12-15.5 = 788-0) PLT (test code = See_Comment [Automated message] 037-3) The system Designer [employer] generated this result transmitted ref erence range: 166 - 35 8 10*3/?L. The re ference range was not u sed to interpret this result as normal/abnor mal. MPV (test code = 9.6 fL 9.5-12.9 56461-6) NRBC/100 WBC (test See_Comment [Automat ed message] code = 2033444561) The syste m which generated this result transmitted ref erence range: 0.0 - 10 .0 /100 WBCs. The refer ence range was not u sed to interpret this result as normal/abnor mal. NRBC x10^3 (test See_Comment [Automated message] code = 6883693315) The syste m which generated this result transmitted ref erence range: 10*3/?L. The reference range was not used to interpr et this result as normal/abnormal . GRAN MAT (NEUT) % 37.5 % (test code = 770-8) IMM GRAN % (test 0.20 % code = 7005968853) LYMPH % (test code 50.8 % = 736-9) MONO % (test code 8.7 % = 5905-5) EOS % (test code = 2.1 % 713-8) BASO % (test code 0.7 % = 706-2) GRAN MAT 2.10 10*3/uL 1.88-7.09 x10^3(ANC) (test code = 0156045398) IMM GRAN x10^3 0-0.06 (test code = 0272158033) LYMPH x10^3 (test 2.85 10*3/uL 1.32-3.29 code = 731-0) MONO x10^3 (test 0.49 10*3/uL 0.33-0.92 code = 742-7) EOS x10^3 (test 0.12 10*3/uL 0.03-0.39 code = 711-2) BASO x10^3 (test 0.04 10*3/uL 0.01-0.07 code = 704-7) [facility] [id number] 00:22:00 Test Item Value Reference Range Interpretation Comments POCT PREG (test code = 1605) negative Lab Interpretation (test code = Normal 33386-2) [facility] Metabolic [id number] 03:45:37 Test Item Value Reference Range Interpretation Comments NA (test code = 140 mmol/L 135-145 7298305585) K (test code = 3.8 mmol/L 3.5-5.0 4634699874) CL (test code = 104 mmol/L 98-108 0822098654) CO2 TOTAL (test code 24 mmol/L 23-31 = 8155161471) AGAP (test code = 2-16 4068058279) BUN (test code = 12 mg/dL 7-23 9363250504) GLUCOSE (test code = 94 mg/dL 70-110 9997073982) CREATININE (test code 0.92 mg/dL 0.50-1.04 = 7440277457) TOTAL BILI (test code 1.0 mg/dL 0.1-1.1 = 4354436480) CALCIUM (test code = 8.9 mg/dL 8.6-10.6 6329912293) T PROTEIN (test code 8.1 g/dL 6.3-8.2 = 1504916324) ALBUMIN (test code = 4.8 g/dL 3.5-5.0 1469154465) ALK PHOS (test code = 68 U/L 34-122 6147452532) ALTv (test code = 19 U/L 5-35 1742-6) AST(SGOT) (test code 32 U/L 13-40 = 5051778855) eGFR (test code = mL/min/1.73m2 0836797762) TYRON (test code = TYRON) Association of Glomerular Filtration Rate (GFR) and Staging of Kidney Disease* + + +- +| GFR (mL/min/1.73 m2) ?| With Kidney Damage ?| ?Without Kidney Damage+ ------+ ----+ ------+| ?>90 ?| ?Stage one ?| ? Normal ?+ -+ + -+| ?60-89 ?| ?Stage two ?| ? Decreased GFR ? + + +- +| ?30-59 ?| ?Stage three ?| ? Stage three ? + + +- +| ?15-29 ?| ?Stage four ? | ? Stage four ?+ -+ + -+| ?<15 (or dialysis) ? ?| ?Stage five ? | ? Stage five ?+ -+ + -+ *Each stage assumes the associated GFR level [...] or urine or abnormalities in imaging tests). [facility] Center[facility], [id number] 03:44:57 Test Item Value Reference Range Interpretation Comments LIPASE (test code = 1106243186) 64 U/L 0-220 Lab Interpretation (test code = Normal 76752-4) [facility] Center[facility] with [id number] 03:36:15 Test Item Value Reference Range Interpretation Comments WBC (test code = See_Comment [Automated 8423-2) message] The sy stem which generated this result transmitted reference range : 4.30 - 11.10 10*3/?L. The reference range was not used to interpret this result as normal/abnormal . RBC (test code = See_Comment [Automated 419-8) message] The sy stem which generated this [...] RDW-SD (test code = 39.5 fL 39.0-49.9 15932-8) RDW-CV (test code = 11.7 % 12.0-15.5 L 788-0) PLT (test code = See_Comment [Automated 787-3) message] The sy stem which generated this result transmitted reference range : 166 - 358 10*3/ ?L. The reference r jose was not used to interpret this result as normal/abnormal . MPV (test code = 9.2 fL 9.5-12.9 L 75511-3) NRBC/100 WBC (test See_Comment [Automat ed code = 2221727992) message] The system which generated this result transmitted reference range : 0.0 - 10.0 /100 WBCs. The refer ence range was not u sed to interpret th is result as normal/abnormal . NRBC x10^3 (test code <0.01 See_Comment [Auto mated = 7929215247) message] The s ystem which generated this result transmitted reference range : 10*3/?L. The reference range was not used to interpret this result as normal/abnormal . GRAN MAT (NEUT) % 42.4 % (test code = 770-8) IMM GRAN % (test code 0.80 % = 3279249005) LYMPH % (test code = 45.8 % 736-9) MONO % (test code = 9.7 % 5905-5) EOS % (test code = 0.5 % 713-8) BASO % (test code = 0.8 % 706-2) GRAN MAT x10^3(ANC) 2.62 10*3/uL 1.88-7.09 (test code = 7671725963) IMM GRAN x10^3 (test 0.05 10*3/uL 0.00-0.06 code = 2464650448) LYMPH x10^3 (test code 2.83 10*3/uL 1.32-3.29 = 731-0) MONO x10^3 (test code 0.60 10*3/uL 0.33-0.92 = 742-7) EOS x10^3 (test code = 0.03 10*3/uL 0.03-0.39 711-2) BASO x10^3 (test code 0.05 10*3/uL 0.01-0.07 = 704-7) Lab Interpretation Abnormal (test code = 88083-1) [facility] [id number] 03:18:00 Test Item Value Reference Range Interpretation Comments POCT PREG (test code = 1605) negative On board controls acceptable with positive C Line (test code = 3574) POCT PREG LOT # (test code = 3575) [id number] POCT PREG TEST DATE (test 05-09-2023 code = 3576) Lab Interpretation (test code = Normal 18202-1) [facility]"
[2023-01-15 20:54] LABS: Absolute Lymphocytes (CBC) 3.6 K/uL (0.7-4.9); Hematocrit 36.8 % (36.0-45.0); MCV 92.6 fL (80-100); MPV 7.2 fL (7.6-11.3); RBC Red Blood Cell Count 3.97 M/uL (3.86-4.86)
[2023-01-15 21:00] LABS: Protime INR 1.07
--- NOTE | 2023-01-15 21:08 | RAD REPORT ---
EXAM DESCRIPTION: RAD - Chest Single View - 01/15/2023 9:01 pm CLINICAL HISTORY: CHEST PAIN Chest pain. COMPARISON: OB Complete dated 10/23/2017CHEST PA AND LAT 2 VIEW dated 09/03/2015 FINDINGS: Portable technique limits examination quality. The lungs are grossly clear. The heart is normal in size. No displaced fractures. IMPRESSION: No acute intrathoracic process suspected.
[2023-01-15 21:14] LABS: ALT/SGPT 23 U/L (13-56); AST/SGOT 15 U/L (15-37); Albumin 3.5 g/dL (3.4-5.0); Alkaline Phosphatase 62 U/L (45-117); BUN Blood Urea Nitrogen 9 mg/dL (7-18); Bicarbonate 23 mEq/L (21-32); Bilirubin Total 0.3 mg/dL (0.2-1.0); Glomerular Filtration Rate 93 ml/min (=/>90); Glucose Level 113 mg/dL (74-106); Potassium 3.7 mEq/L (3.5-5.1); Protein, Total 7.5 g/dL (6.4-8.2); Sodium Level 138 mEq/L (136-145); Troponin High Sensitivity 3.2 pg/mL (<58.9)
[2023-01-15 21:21] LABS: Bilirubin Direct < 0.1 mg/dL (0-0.2); Bilirubin Indirect, Calculated ND mg/dL (0.2-0.8)
[2023-01-15 21:42] LABS: Specific Gravity 1.007 (1.005-1.030)
--- NOTE | 2023-01-15 21:54 | ER ---
Nurse's Notes [facility] Name: Alie Gee Age: 38 yrs Sex: Female : 1985 Arrival Date: 01/15/2023 Time: 20:04 Bed 7 Private MD: Diagnosis: Chest pain, unspecified Presentation: 01/15 20:23 Chief complaint: Patient states: I started having chest pain yesterday and now both of vc1 my breast hurt really bad. It's more of a pressure in my chest but a pain in my breast. Coronavirus screen: Vaccine status: Patient reports receiving the 2nd dose of the covid vaccine. Plus one booster; Moderna. 20:23 Method Of Arrival: Ambulatory 1 20:23 Ebola Screen: Patient negative for fever greater than or equal to 101.5 degrees vc1 Fahrenheit, and additional compatible Ebola Virus Disease symptoms Patient denies exposure to infectious person. Patient denies travel to an Ebola-affected area in the 21 days before illness onset. No symptoms or risks identified at this time. Initial Sepsis Screen: Does the patient meet any 2 criteria? RR > 20 per min. No. Patient's initial sepsis screen is negative. Does the patient have a suspected source of infection? No. Patient's initial sepsis screen is negative. Risk Assessment: Do you want to hurt yourself or someone else? Patient reports no desire to harm self or others. 20:23 Acuity: CAROLYN 3 vc1 20:23 Onset of symptoms was January 14, 2023. 1 Triage Assessment: 22:01 General: Appears in no apparent distress. Behavior is calm, cooperative. Pain: kd3 Complains of pain in chest. Cardiovascular: Patient's skin is warm and dry. 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 - Social history:: Smoking status: Patient reports the use of cigarette tobacco products, smokes one-half pack cigarettes per day. Screenin:48 Abuse screen: Denies threats or abuse. Nutritional screening: No deficits noted. vc1 Tuberculosis screening: No symptoms or risk factors identified. 22:04 [facility] Fall Risk Assessment (Adult) History of falling in the last 3 months, kd3 including since admission No falls in past 3 months (0 pts) Confusion or Disorientation No (0 pts) Intoxicated or Sedated No (0 pts) Impaired Gait No (0 pts) Mobility Assist Device Used No (0 pt) Altered Elimination No (0 pt) Score/Fall Risk Level 0 - 2 = Low Risk Maintained a safe environment. Assessment: 22:01 Pain: Pain does not radiate. Pain began suddenly, gradually. kd3 Vital Signs: 20:23 BP 135 / 95; Pulse 84; Resp 23; Temp 98.6(O); Pulse Ox 98% ; Weight 99.79 kg; Height 5 vc1 ft. 5 in. ; Pain 7/10; 22:01 Pulse 82; Resp 19; Pulse Ox 99% on R/A; kd3 20:23 Body Mass Index 36.61 (99.79 kg, 165.1 cm) vc1 20:23 Pain Scale: Adult vc1 ED Course: 20:05 Patient arrived in ED. ja2 20:16 Ronny Mojica MD is Attending Physician. sp3 20:46 Triage completed. vc1 20:47 Arm band placed on right wrist. vc1 20:48 Patient has correct armband on for positive identification. Bed in low position. Call vc1 light in reach. Client placed on continuous cardiac and pulse oximetry monitoring. NIBP monitoring applied. 20:49 Inserted saline lock: 22 gauge in right antecubital area, using aseptic technique. ds4 Blood collected. 21:02 XRAY Chest (1 view) In Process Unspecified. EDMS 22:00 Ольга Patterson, RN is Primary Nurse. kd3 22:01 No provider procedures requiring assistance completed. IV discontinued, intact, kd3 bleeding controlled, No redness/swelling at site. Pressure dressing applied. Patient maintains SpO2 saturation greater than 95% on room air. Administered Medications: 22:00 Drug: Ketorolac IVP 15 mg Route: IVP; Site: right antecubital; kd3 22:03 Follow up: Response: No adverse reaction kd3 Medication: 20:48 VIS not applicable for this client. vc1 Outcome: 21:53 Discharge ordered by . sp3 22:03 Discharged to home ambulatory. kd3 22:03 Condition: stable 22:03 Discharge instructions given to patient, family, Instructed on discharge instructions, follow up and referral plans. Demonstrated understanding of instructions, follow-up care. 22:04 Patient left the ED. kd3 Signatures: Dispatcher [employer] EDMS Binu Gilbert ds4 Ronny Mojica MD MD sp3 Camelia Moon Kyli, RN RN kd3 Steph Roy RN RN vc1
--- NOTE | 2023-01-15 21:54 | EDPHYS ---
Physician Documentation [facility] Name: Alie Gee Age: 38 yrs Sex: Female : 1985 Arrival Date: 01/15/2023 Time: 20:04 Bed 7 Private MD: ED Physician Ronny Mojica HPI: 01/15 20:28 This 38 yrs old Black Female presents to ER via Ambulatory with complaints of Chest sp3 Pain, Breast Pain. 20:28 . sp3 20:29 38-year-old female with no significant past medical history presents with 1.5 days of sp3 diffuse chest pain and mild breast tenderness without any other symptoms. She denies shortness of breath, back pain, abdominal pain, epigastric pain, nipple discharge, (LMP is 2 weeks ago), history of PE or any other significant illness, prolonged immobilization, travel history, on oral contraception, known sick contacts, URI symptoms, any other signs or symptoms on ROS at this time. Pain is described as diffuse and muscular. Denies any extremity involvement, jaw pain, face pain, neurological symptoms, trauma, or any other historical facts at this time.. 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 - Social history:: Smoking status: Patient reports the use of cigarette tobacco products, smokes one-half pack cigarettes per day. ROS: 20:30 Constitutional: Negative for fever, chills, and weight loss, Eyes: Negative for injury, sp3 pain, redness, and discharge, ENT: Negative for injury, pain, and discharge, Neck: Negative for injury, pain, and swelling, Abdomen/GI: Negative for abdominal pain, nausea, vomiting, diarrhea, and constipation, Back: Negative for injury and pain, MS/Extremity: Negative for injury and deformity, Skin: Negative for injury, rash, and discoloration, Neuro: Negative for headache, weakness, numbness, tingling, and seizure, Psych: Negative for depression, anxiety, suicide ideation, homicidal ideation, and hallucinations, Allergy/Immunology: Negative for hives, rash, and allergies, Endocrine: Negative for neck swelling, polydipsia, polyuria, polyphagia, and marked weight changes, Hematologic/Lymphatic: Negative for swollen nodes, abnormal bleeding, and unusual bruising. 20:30 All other systems are negative. Exam: 20:30 Constitutional: This is a well developed, well nourished patient who is awake, alert, sp3 and in no acute distress. Head/Face: Normocephalic, atraumatic. Eyes: Pupils equal round and reactive to light, extra-ocular motions intact. Lids and lashes normal. Conjunctiva and sclera are non-icteric and not injected. Cornea within normal limits. Periorbital areas with no swelling, redness, or edema. ENT: Nares patent. No nasal discharge, no septal abnormalities noted. External auditory canals are clear. Oropharynx with no redness, swelling, or masses, exudates, or evidence of obstruction, uvula midline. Mucous membranes moist. Neck: Trachea midline, no thyromegaly or masses palpated, and no cervical lymphadenopathy. Supple, full range of motion without nuchal rigidity, or vertebral point tenderness. No Meningismus. Cardiovascular: Regular rate and rhythm with a normal S1 and S2. No gallops, murmurs, or rubs. Normal PMI, no JVD. No pulse deficits. Respiratory: Lungs have equal breath sounds bilaterally, clear to auscultation and percussion. No rales, rhonchi or wheezes noted. No increased work of breathing, no retractions or nasal flaring. Abdomen/GI: Soft, non-tender, with normal bowel sounds. No distension or tympany. No guarding or rebound. No evidence of tenderness throughout. Back: No spinal tenderness. No costovertebral tenderness. Full range of motion. Skin: Warm, dry with normal turgor. Normal color with no rashes, no lesions, and no evidence of cellulitis. MS/ Extremity: Pulses equal, no cyanosis. Neurovascular intact. Full, normal range of motion. Neuro: Awake and alert, GCS 15, oriented to person, place, time, and situation. Cranial nerves II-XII grossly intact. Motor strength 5/5 in all extremities. Sensory grossly intact. Cerebellar exam normal. Normal gait. Psych: Awake, alert, with orientation to person, place and time. Behavior, mood, and affect are within normal limits. 20:30 Chest/axilla: Mild tenderness to breast tissue without any masses noted. No nipple discharge. No lymphadenopathy.. 20:42 ECG was reviewed by the Attending Physician. EKG demonstrates normal sinus rhythm at 80 sp3 bpm with normal intervals, normal QRS, normal axis, no ST/T-segment's without evidence of acute ischemia. Vital Signs: 20:23 BP 135 / 95; Pulse 84; Resp 23; Temp 98.6(O); Pulse Ox 98% ; Weight 99.79 kg; Height 5 vc1 ft. 5 in. ; Pain 7/10; 22:01 Pulse 82; Resp 19; Pulse Ox 99% on R/A; kd3 20:23 Body Mass Index 36.61 (99.79 kg, 165.1 cm) vc1 20:23 Pain Scale: Adult vc1 MDM: 20:26 Patient medically screened. sp3 20:31 Data reviewed: vital signs, nurses notes. Data reviewed: old medical records, lab test sp3 result(s), EKG, radiologic studies. ED course: 38-year-old with vague symptoms. Consider musculoskeletal pain, possible although LMP was 2 weeks ago given breast tenderness, URI, viral syndrome. Not highly suspicious for acute coronary syndrome, pulmonary embolism, thoracic aortic dissection or aneurysm, abdominal pathology including pancreatitis or biliary disease, sepsis, shock or any other concerning or critical findings at this time. Will obtain EKG, chest x-ray and lab values including D-dimer and troponin level. Likely discharge if negative to PCP follow-up and general supportive care.. 21:53 ED course: Reviewed entire work-up which is currently negative. is also sp3 negative as is D-dimer, troponin, x-ray and remainder of her labs. We will safely discharge patient home at this time with PCP follow-up.. 01/15 20:27 Order name: Basic Metabolic Panel; Complete Time: 21:43 sp3 01/15 20:27 Order name: CBC with Diff; Complete Time: 21:43 sp3 01/15 20:27 Order name: D-Dimer; Complete Time: 21:43 sp3 01/15 20:27 Order name: LFT's; Complete Time: 21:43 sp3 01/15 20:27 Order name: Magnesium; Complete Time: 21:43 sp3 01/15 20:27 Order name: PT-INR; Complete Time: 21:43 sp3 01/15 20:27 Order name: Troponin HS; Complete Time: 21:43 sp3 01/15 20:27 Order name: Test, Urine sp3 01/15 20:27 Order name: XRAY Chest (1 view); Complete Time: 21:43 sp3 01/15 20:27 Order name: EKG; Complete Time: 20:28 sp3 01/15 20:27 Order name: Cardiac monitoring; Complete Time: 20:36 sp3 01/15 20:27 Order name: EKG - Nurse/Tech; Complete Time: 20:35 sp3 01/15 20:27 Order name: IV Saline Lock; Complete Time: 20:49 sp3 01/15 20:27 Order name: Labs collected and sent; Complete Time: 20:49 sp3 Administered Medications: 22:00 Drug: Ketorolac IVP 15 mg Route: IVP; Site: right antecubital; kd3 22:03 Follow up: Response: No adverse reaction kd3 Disposition Summary: 01/15/23 21:53 Discharge Ordered Location: Home sp3 Condition: Stable sp3 Diagnosis - Chest pain, unspecified sp3 Followup: sp3 - With: Private Physician - When: Upon discharge from the Emergency Department - Reason: Continuance of care Discharge Instructions: - Discharge Summary Sheet sp3 - Nonspecific Chest Pain, Adult, [id number] sp3 Forms: - Medication Reconciliation Form sp3 - Thank You Letter sp3 - Antibiotic Education sp3 - Prescription Opioid Use sp3 Signatures: Dispatcher [employer] Ronny Yarbrough MD MD sp3 Ольга Patterson RN RN kd3 Steph Roy RN RN vc1
[2023-01-15] MEDS ORDERED: KETOROLAC 30 MG/ML INJ ONE ×2 (22:05→22:09)
[2023-01-15 22:16] VITALS: BP 135/95; TEMP 98.6
[2023-01-15 22:22] VITALS: O2SAT 99
--- NOTE | 2023-01-16 14:47 | EKG ---
Test Date: 2023-01-15 Test Time: 20:30:23 Data Warehousing Engineer: SKYLA MEASUREMENT RESULTS: Intervals: Rate: 79 NC: 156 QRSD: 78 QT: 388 QTc: 444 [place]: P: 41 NC: 156 QRS: 70 T: 58 INTERPRETIVE STATEMENTS: Normal sinus rhythm Normal ECG Compared to ECG 01/03/2018 13:46:19 No significant changes Electronically Signed On 01-16-23 14:44:25 CDT by Tito Ricardo
== END 2023-01-15 22:04 | disposition home or self-care (01) ==
LOC: ER 20:04
DX: R07.89 Other chest pain (principal); F17.210 Nicotine dependence, cigarettes, uncomplicated; F20.9 Schizophrenia, unspecified
CPT/HCPCS: 36415; 71045; 80048; 80076; 81025; 83735; 84484; 85025; 85379; 85610; 93005; 96374; 99285

== ENCOUNTER 2023-03-25 13:37 | Emergency (ER) | payer OTHER ==
--- OUTSIDE RECORDS SUMMARY | 2023-03-25 13:47 | XMS REPORT | Continuity of Care Document ---
:1985 Author Organization [facility] t Address [address] [facility] [address] [place] [address] Care Team Providers Name Role Phone PCP, PATIENT DOES NOT HAVE A Primary Care Physician UnavailFRANNIE Kim Attending Clinician Unavailable Kimmy Prieto RN Attending Clinician Unavailable SERA WORTHY Attending Clinician Unavailable Sera Martinez Attending Clinician Unknown, Attending Attending Clinician Unavailable CHEIKH BOYLE Attending Clinician Unavailable Frannie Smith PA-C Attending Clinician Pob, [facility] Main Attending Clinician Unavailable Doctor Unassigned, [place] Attending Clinician Unavailable DENISE CORTEZ Attending Clinician Unavailable Only, Aurelio Flores Test Attending Clinician Unavailable NII BONILLA Attending Clinician Unavailable Nii Bonilla MD Attending Clinician [phone] CIARRA FRANK S Attending Clinician Unavailable Ciarra Zhu S Attending Clinician ADELINE WILLIAM Attending Clinician Unavailable LIZANDRO DEL TORO Attending Clinician Unavailable Lizandro Rodriguez Attending Clinician BRITTANY BELCHER Attending Clinician Unavailable AUGUSTO ESTRADA Attending Clinician Unavailable NATALIE ALMENDAREZ Attending Clinician Unavailable Natalie Mills Attending Clinician Nurse, [facility] Attending Clinician Unavailable Francis Valentin Attending Clinician FRANCIS BOWER Attending Clinician Unavailable Xochitl Kaur RN Attending Clinician Unavailable SHANNAN STEWARD Attending Clinician Unavailable Shannan Avina Attending Clinician Provider, [facility] Attending Clinician Unavailable Vaccine, Ang Db Cbc Fam Attending Clinician Unavailable Dominic Peralta DO Attending Clinician DOMINIC PERALTA Attending Clinician Unavailable ARIANNA WHITMORE Attending Clinician Unavailable Arianna Whitmore MD Attending Clinician Brittany Belcher MD Attending Clinician Micheal Mayer DO Attending Clinician GAMALIEL GREER III Attending Clinician Unavailable Susana DANIELS Attending Clinician Unavailable Susana Avelar Attending Clinician Provider, Urgent Care Day Attending Clinician Unavailable JOJO MINOR Attending Clinician Unavailable Imani SHIRLEY, Jojo Attending Clinician Malena Garcia MD Attending Clinician Tomasa Chaidez Attending Clinician Kaley Coello RN Attending Clinician Unavailable TOMASA WILLIAM Attending Clinician Unavailable TRUPTI COOPER Attending Clinician Unavailable VIDYA BUENO Attending Clinician Unavailable VIDYA BUENO Attending Clinician Unavailable TORY SAMPSON Attending Clinician Unavailable KEHINDE PATTERSON Attending Clinician Unavailable RAYO VAUGHN Attending Clinician Unavailable IVAN ROBERTSON Attending Clinician Unavailable AGUSTO DARLING Attending Clinician Unavailable AGUSTO DARLING Attending Clinician Unavailable NEAL OROZCO Attending Clinician Unavailable ANTONETTE NORMAN Attending Clinician Unavailable ALBA VALENTINE Attending Clinician Unavailable Cheikh Boyle MD Attending Clinician [facility], [facility] Fac Attending Clinician Unavailable 2, [facility] Room Attending Clinician Unavailable Rafael RICHARD, Nicanor Attending Clinician Melisa Perez PT Attending Clinician [...] Clinician Unavailable CHEIKH BOYLE Admitting Clinician Unavailable IMCHEAL MAYER Admitting Clinician Unavailable Payers Payer Name Policy Type Policy Number Effective Date Expiration Date Deuce paniagua [facility] NATASHA [id number] 2017 00:00:00 Problems Condition Condition Condition Status Onset Resolution Last Treating Co mments Source Name Details Category Date Date Treatment Clinician Date Hemorrhagi Hemorrhagi Disease Active U nivers c ovarian c ovarian 3-30 ity of cyst cyst 00:00: [place] [address] Medical Branch Obesity Obesity Disease Active Univers (BMI (BMI 4-27 ity of 30-39.9) 30-39.9) 00:00: [place] [address] Medical Branch Fibromyalg Fibromyalg Disease Active U nivers ia ia 3-10 ity of syndrome syndrome 00:00: [place] [address] Medical Branch 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 00:00: [place] virus 2) virus 2) 00 Medica l infection infection Bran ch Muscle Muscle Disease Active 2019-08 Univers spasms of spasms of 1-13 ity of both lower both lower 00:00: [place] extremitie extremitie 00 Me dical s s Branch Need for Need for Disease Active Unive rs prophylact prophylact 03-15 it y of ic ic 00:00: [place] vaccinatio vaccinatio 00 Me dical n against n against Bran ch hepatitis hepatitis A and A and hepatitis hepatitis B B Virilizati Virilizati Disease Active 2020- U nivers on on 03-13 ity of 00:00: [place] [facility] Shortness Shortness Disease Active 2020-0 Uni vers of breath of breath 5-01 ity of 00:00: [place] [facility] Acneiform Acneiform Disease Active 2020-0 Uni vers rash rash 4-21 ity of 00:00: [place] [address] Medical Branch Current Current Disease Active 2020-0 Univers smoker smoker 3-27 ity of 00:00: [place] [facility] Medication Medication Disease Active 2020-0 U nivers care plan care plan 3-24 ity of discussed discussed 00:00: Kamranpierce edwards with with Medical patient patient Branch Former Former Disease Active 2020-0 Univers smoker smoker 3-20 ity of 00:00: [place] [facility] Menetrier' Menetrier' Disease Active 2020-0 U nivers s disease s disease 3-20 ity of 00:00: [place] [facility] 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, coma, 2-01 ity of chronic chronic 00:00: [place] [facility] Right Right Disease Active 2020-0 Univers lower lower 1-22 ity of quadrant quadrant 00:00: [place] abdominal abdominal 00 Medi norma pain pain Branch Bronchitis Bronchitis Disease Active 2020-0 U nivers 1-22 ity of 00:00: [place] [facility] Substernal Substernal Disease Active 2020-0 U nivers chest pain chest pain 1-22 it y of 00:00: [place] [facility] Cysts of Cysts of Disease Active 2020-0 Unive rs both both 1-08 ity of ovaries ovaries 00:00: [place] [facility] Primary Primary Disease Active 2020-0 Univers insomnia insomnia 1-03 ity of 00:00: [place] [facility] Bipolar 1 Bipolar 1 Disease Active 2019- Uni vers disorder disorder 2-16 ity of 00:00: [place] [facility] Nausea and Nausea and Disease Active 2019- U nivers vomiting vomiting 2-16 ity of in adult in adult 00:00: [place] patient patient 00 Medical Branch Anxiety Anxiety Disease Active 2019- Univers 2-16 ity of 00:00: [place] [address] Medical Branch Current Current Disease Active 2019- [...] Active Univers ALLERGIE Class ity of S [facility] Social History Social Habit Start Date Stop Date Quantity Comments Source History [facility] o f Alcohol Frequency [facility] History [facility] o f Alcohol Std Drinks [facility] History [facility] o f Alcohol Binge [facility] History of tobacco Cigarette Smoker University of use [facility] Gender identity Universit y of [facility] Sexual orientation Univer sity of [facility] Alcohol intake 2023-03-20 2023-03-20 Current drinker Unive rsity of 00:00:00 00:00:[address] [facility] (finding) Branch Exposure to 2022-08-06 2022-08-16 Not sure University of SARS-CoV-2 (event) 00:00:00 11:23:00 [facility] Tobacco Comment 2022-02-17 2022-02-17 Vape Universit y of 00:00:00 00:00:00 [facility] Cigarettes smoked 2022-02-17 2022-02-17 Univers ity of current (pack per 00:00:00 00:00:00 [facility] ) - Reported Branch Cigarette 2022-02-17 2022-02-17 University of pack-years 00:00:00 00:00:00 [facility] Tobacco use and 2022-02-172022-02-17 User of Universit y of exposure 00:00:00 00:00:[address] [facility] tobacco [place] Alcohol Comment 2021-10-03 2021-10-03 every weekend Univer sity of 00:00:00 00:00:00 [facility] History of Social 2020-10-17 2020-10-17 Univers ity of function 00:00:00 00:00:00 [facility] Sex [birth year] Universit y of 00:00:00 00:00:00 [facility] Smoking Status Start Date Stop Date Source Smokes tobacco daily 2022-02-17 00:00:00 Univers ity of [facility] Medications Ordered Filled Start Stop Current Ordering Indication Dosage Frequency Signature Comments Components Source Medication Medication Date Date Medication? Clinician (SIG) Name Name metroNIDAZO Yes [id number] 500mg Take 1 Univers LE 500 mg 6-29 tablet by ity o f tablet 00:00: mouth [place] 00 every 12 Medical (twelve) Branch hours. metroNIDAZO Yes [id number] 500mg Take 1 Univers LE 500 mg 6-29 tablet by ity o f tablet 00:00: mouth [place] 00 every 12 Medical (twelve) Branch hours. metroNIDAZO 0 Yes [id number] 500mg Take 1 Univers LE 500 mg 6-29 tablet by ity o f tablet 00:00: mouth [place] 00 every 12 Medical (twelve) Branch hours. medroxyPROG 2022- No [id number] 150mg Univers ESTERone -02 02- ity of (DEPO-PROVE 22:00: 20:59 [place] RA) syringe 00 :00 Medical 150 mg [place] medroxyPROG 2022- No [id number] 150mg 150 mg, Univers ESTERone -02 02- Intramuscu ity of (DEPO-PROVE 22:00: 20:59 lar, ONCE, [place] RA) syringe 00 :00 1 dose, On Me dical 150 mg Mon Branch 02/02/23 at 1700, Routine valACYclovi Yes [id number] 1g Take 1 Univers r 1 gram 6-26 tablet by ity of tablet 00:00: mouth in [place] 00 the Medical morning. Branch valACYclovi Yes [id number] 1g Take 1 Univers r 1 gram 6-26 tablet by ity of tablet 00:00: mouth in [place] the Medical morning. Branch valACYclovi 2022-0 Yes [id number] 1g Take 1 Univers r 1 gram 6-26 tablet by ity of tablet 00:00: mouth in [place] the morning. Branch valACYclovi 2022-0 Yes [id number] 1g Take 1 Univers r 1 gram 6-26 tablet by ity of tablet 00:00: mouth in [place] the morning. Branch valACYclovi 2022-0 Yes [id number] 1g Take 1 Univers r 1 gram 6-26 tablet by ity of tablet 00:00: mouth in [place] the Medical morning. Branch valACYclovi 2022-0 Yes [id number] 1g Take 1 Univers r 1 gram 6-26 tablet by ity of tablet 00:00: mouth in [place] the morning. Branch valACYclovi 2022-0 Yes [id number] 1g Take 1 Univers r 1 gram 6-26 tablet by ity of tablet 00:00: mouth in [place] the morning. Branch valACYclovi 2022-0 Yes [id number] 1g Take 1 Univers r 1 gram 6-26 tablet by ity of tablet 00:00: mouth in [place] the morning. Branch valACYclovi 2022-0 Yes [id number] 1g Take 1 Univers r 1 gram 6-26 tablet by ity of tablet 00:00: mouth in [place] the morning. Branch valACYclovi 0 Yes [id number] 1g Take 1 Univers r 1 gram 6-26 tablet by ity of tablet 00:00: mouth in [place] the Medical morning. Branch neomycin-po 0 Yes [id number] 4[drp] Place 4 Univers lymyxin-hyd 8-15 Drops in ity of rocortisone 00:00: right ear [place] otic 00 4 (four) Medical solution times [place] daily. neomycin-po 2021-0 Yes [id number] 4[drp] Place 4 Univers lymyxin-hyd 8-15 Drops in ity of rocortisone 00:00: right ear [place] otic 00 4 (four) Medical solution times Branch daily. neomycin-po 2021-0 Yes [id number] 4[drp] Place 4 Univers lymyxin-hyd 8-15 Drops in ity of rocortisone 00:00: right ear [place] otic 00 4 (four) Medical solution times Branch daily. neomycin-po 2022-0 Yes [id number] 4[drp] Place 4 Univers lymyxin-hyd 8-15 Drops in ity of rocortisone 00:00: right ear [place] otic 00 4 (four) Medical solution times Branch daily. neomycin-po 2022-0 Yes [id number] 4[drp] Place 4 Univers lymyxin-hyd 8-15 Drops in ity of rocortisone 00:00: right ear [place] otic 00 4 (four) Medical solution times Branch daily. neomycin-po 2022-0 Yes [id number] 4[drp] Place 4 Univers lymyxin-hyd 8-15 Drops in ity of rocortisone 00:00: right ear [place] otic 00 4 (four) Medical solution times Branch daily. neomycin-po 2022-0 Yes [id number] 4[drp] Place 4 Univers lymyxin-hyd 8-15 Drops in ity of rocortisone 00:00: right ear [place] otic 00 4 (four) Medical solution times Branch daily. neomycin-po 2022-0 Yes [id number] 4[drp] Place 4 Univers lymyxin-hyd 8-15 Drops in ity of rocortisone 00:00: right ear [place] otic 00 4 (four) Medical solution times Branch daily. neomycin-po 2022-0 Yes [id number] 4[drp] Place 4 Univers lymyxin-hyd 8-15 Drops in ity of rocortisone 00:00: right ear [place] otic 00 4 (four) Medical solution times Branch daily. neomycin-po 2022-0 Yes [id number] 4[drp] Place 4 Univers lymyxin-hyd 8-15 Drops in ity of rocortisone 00:00: right ear [place] otic 00 4 (four) Medical solution times Branch daily. neomycin-po 2022-0 Yes [id number] 4[drp] Place 4 Univers lymyxin-hyd 8-15 Drops in ity of rocortisone 00:00: right ear [place] otic 00 4 (four) Medical solution times Branch daily. neomycin-po 2022-0 Yes [id number] 4[drp] Place 4 Univers lymyxin-hyd 8-15 Drops in ity of rocortisone 00:00: right ear [place] otic 00 4 (four) Medical solution times Branch daily. neomycin-po 2021-0 Yes [id number] 4[drp] Place 4 Univers lymyxin-hyd 8-15 Drops in ity of rocortisone 00:00: right ear [place] otic 00 4 (four) Medical solution times Branch daily. neomycin-po 2021-0 Yes [id number] 4[drp] Place 4 Univers lymyxin-hyd 8-15 Drops in ity of rocortisone 00:00: right ear [place] otic 00 4 (four) Medical solution times Branch daily. neomycin-po 2021-0 Yes [id number] 4[drp] Place 4 Univers lymyxin-hyd 8-15 Drops in ity of rocortisone 00:00: right ear [place] otic 00 4 (four) Medical solution times Branch daily. amoxicillin 2021- No [id number] 875mg Take 1 Univers 875 mg 8-15 -23 tablet by ity of tablet 00:00: 04:59 mouth in [place] 00 :00 the Medical morning Branch and 1 tablet in the evening. Do all this for 7 days. iopamidol 2021- No [id number] 55mL 55 mL, Univers (ISOVUE 02-18 Intravenou ity o f 370-500 mL) 01:45: 01:45 s, ONCE, 1 [place] injection 00 :00 dose, On Medica l 55 mL [facility] Branch 02/17/22 at 2045, Routine ketorolac 2021- No 15mg 15 mg, Unive rs (TORADOL) 02-18 Slow IV ity of injection 01:45: 01:15 Push, [place] 15 mg 00 :00 ONCE, 1 Medical dose, On Branch [facility] 02/17/22 at 2045, UZMA HYDROcodone 2021- No 1{tbl} 1 tablet, Univers -acetaminop 02-18 Oral, ONCE i ty of hen (NORCO) 01:00: 00:20 NOW, 1 [place] as 10-325 mg 00 :00 dose, On Medica l tablet 1 Mon [place] tablet 02/17/22 at 2000, Routine ibuprofen Yes [id number] 600mg Take 1 Univers 600 mg 7-11 tablet by ity of tablet 00:00: mouth [place] 00 every 6 Medical (six) Branch hours as needed for Pain (scale 4-6). ibuprofen 2022-0 Yes [id number] 600mg Take 1 Univers 600 mg 7-11 tablet by ity of tablet 00:00: mouth [place] 00 every 6 Medical (six) Branch hours as needed for Pain (scale 4-6). ibuprofen 2022-0 Yes [id number] 600mg Take 1 Univers 600 mg 7-11 tablet by ity of tablet 00:00: mouth [place] 00 every 6 Medical (six) Branch hours as needed for Pain (scale 4-6). ibuprofen 2022-0 Yes [id number] 600mg Take 1 Univers 600 mg 7-11 tablet by ity of tablet 00:00: mouth [place] 00 every 6 Medical (six) Branch hours as needed for Pain (scale 4-6). ibuprofen 2022-0 Yes [id number] 600mg Take 1 Univers 600 mg 7-11 tablet by ity of tablet 00:00: mouth [place] 00 every 6 Medical (six) Branch hours as needed for Pain (scale 4-6). ibuprofen 2022-0 Yes [id number] 600mg Take 1 Univers 600 mg 7-11 tablet by ity of tablet 00:00: mouth [place] 00 every 6 Medical (six) Branch hours as needed for Pain (scale 4-6). ibuprofen 2022-0 Yes [id number] 600mg Take 1 Univers 600 mg 7-11 tablet by ity of tablet 00:00: mouth [place] 00 every 6 Medical (six) Branch hours as needed for Pain (scale 4-6). ibuprofen 2022-0 Yes [id number] 600mg Take 1 Univers 600 mg 7-11 tablet by ity of tablet 00:00: mouth [place] 00 every 6 Medical (six) Branch hours as needed for Pain (scale 4-6). ibuprofen 2022-0 Yes [id number] 600mg Take 1 Univers 600 mg 7-11 tablet by ity of tablet 00:00: mouth [place] 00 every 6 Medical (six) Branch hours as needed for Pain (scale 4-6). ibuprofen 2022-0 Yes [id number] 600mg Take 1 Univers 600 mg 7-11 tablet by ity of tablet 00:00: mouth [place] 00 every 6 Medical (six) Branch hours as needed for Pain (scale 4-6). ibuprofen 2022-0 Yes [id number] 600mg Take 1 Univers 600 mg 7-11 tablet by ity of tablet 00:00: mouth [place] 00 every 6 Medical (six) Branch hours as needed for Pain (scale 4-6). ibuprofen 2021-0 Yes [id number] 600mg Take 1 Univers 600 mg 7-11 tablet by ity of tablet 00:00: mouth [place] 00 every 6 Medical (six) Branch hours as needed for Pain (scale 4-6). ibuprofen 2021-0 Yes [id number] 600mg Take 1 Univers 600 mg 7-11 tablet by ity of tablet 00:00: mouth [place] 00 every 6 Medical (six) Branch hours as needed for Pain (scale 4-6). ibuprofen 2021-0 Yes [id number] 600mg Take 1 Univers 600 mg 7-11 tablet by ity of tablet 00:00: mouth [place] 00 every 6 Medical (six) Branch hours as needed for Pain (scale 4-6). ibuprofen 2021-0 Yes [id number] 600mg Take 1 Univers 600 mg 7-11 tablet by ity of tablet 00:00: mouth [place] 00 every 6 Medical (six) Branch hours as needed for Pain (scale 4-6). ibuprofen 2021-0 Yes [id number] 600mg Take 1 Univers 600 mg 7-11 tablet by ity of tablet 00:00: mouth [place] 00 every 6 Medical (six) Branch hours as needed for Pain (scale 4-6). ketorolac 2021- No 30mg 30 mg, Unive rs (TORADOL) 11-24 Slow IV ity of injection 09:45: 09:19 Push, [place] 30 mg 00 :00 ONCE, 1 Medical dose, On [facility] 11/24/21 at 0445, Routine
aboriginal community council member approving Restricted medication : ARIANNA WHITMORE morpHINE 2021- No 4mg 4 mg, Slow Un anju injection 4 11-24 IV Push, ity of mg 08:15: 08:03 ONCE, 1 [place] 00 :00 dose, On [facility] 11/24/21 at 0315, STAT FENTanyl PF 2021- No 50ug 50 mcg, Un anju (SUBLIMAZE 11-24 Slow IV ity o f (PF)) 05:16: 05:20 Push, [place] injection 00 :00 ONCE, 1 Medical 50 mcg dose, On [facility] 11/24/21 at 0030, Routine ondansetron 2021- [...] 11/23/21 at 2330, Routine iopamidol 2021- No [id number] 100mL 100 mL, Univers (ISOVUE 11-24 Intravenou ity o f 370-500 mL) 04:19: 04:19 s, ONCE, 1 [place] injection 00 :00 dose, On Medica l 100 mL Sat Branch 11/23/21 at 2330, Routine ketorolac 0 Yes [id number] 10mg Take 1 Univers 10 mg 4-17 [id number] tablet by ity of tablet 00:00: mouth [place] 00 every 6 Medical (six) Branch hours as needed for Alternate with [place]el[place] for pain scale 4-6. HYDROcodone 2021-0 Yes [id number] 1{tbl} Take 1 Un anju -acetaminop 4-17 tablet by ity of hen (NORCO) 00:00: mouth [place] 10-325 mg 00 every 6 Medical tablet (six) Branch hours as needed for Pain (scale 7-10). Indication s: acute pain ketorolac 2021-0 Yes [id number] 10mg Take 1 Univers 10 mg 4-17 [id number] tablet by ity of tablet 00:00: mouth [place] 00 every 6 Medical (six) Branch hours as needed for Alternate with [place]el[place] for pain scale 4-6. HYDROcodone 2021-0 Yes [id number] 1{tbl} Take 1 Un anju -acetaminop 4-17 tablet by ity of hen (NORCO) 00:00: mouth [place] 10-325 mg 00 every 6 Medical tablet (six) Branch hours as needed for Pain (scale 7-10). Indication s: acute pain ketorolac 2021-0 Yes [id number] 10mg Take 1 Univers 10 mg 4-17 [id number] tablet by ity of tablet 00:00: mouth [place] 00 every 6 Medical (six) Branch hours as needed for Alternate with [place] for pain scale 4-6. HYDROcodone 2022-0 Yes [id number] 1{tbl} Take 1 Un anju -acetaminop 4-17 tablet by ity of hen (NORCO) 00:00: mouth [place] 10-325 mg 00 every 6 Medical tablet (six) Branch hours as needed for Pain (scale 7-10). Indication s: acute pain ketorolac 2022-0 Yes [id number] 10mg Take 1 Univers 10 mg 4-17 [id number] tablet by ity of tablet 00:00: mouth [place] 00 every 6 Medical (six) Branch hours as needed for Alternate with [place] for pain scale 4-6. HYDROcodone 2022-0 Yes [id number] 1{tbl} Take 1 Un anju -acetaminop 4-17 tablet by ity of hen (NORCO) 00:00: mouth [place] 10-325 mg 00 every 6 Medical tablet (six) Branch hours as needed for Pain (scale 7-10). Indication s: acute pain ketorolac 2022-0 Yes [id number] 10mg Take 1 Univers 10 mg 4-17 [id number] tablet by ity of tablet 00:00: mouth [place] 00 every 6 Medical (six) Branch hours as needed for Alternate with [place]el[place] for pain scale 4-6. HYDROcodone 2022-0 Yes [id number] 1{tbl} Take 1 Un anju -acetaminop 4-17 tablet by ity of hen (NORCO) 00:00: mouth [place] 10-325 mg 00 every 6 Medical tablet (six) Branch hours as needed for Pain (scale 7-10). Indication s: acute pain ketorolac 2022-0 Yes [id number] 10mg Take 1 Univers 10 mg 4-17 [id number] tablet by ity of tablet 00:00: mouth [place] 00 every 6 Medical (six) Branch hours as needed for Alternate with [place]el[place] for pain scale 4-6. HYDROcodone 2022-0 Yes [id number] 1{tbl} Take 1 Un anju -acetaminop 4-17 tablet by ity of hen (NORCO) 00:00: mouth [place] 10-325 mg 00 every 6 Medical tablet (six) Branch hours as needed for Pain (scale 7-10). Indication s: acute pain ketorolac 2022-0 Yes [id number] 10mg Take 1 Univers 10 mg 4-17 [id number] tablet by ity of tablet 00:00: mouth [place] 00 every 6 Medical (six) Branch hours as needed for Alternate with Cornel[place] for pain scale 4-6. HYDROcodone 2022-0 Yes [id number] 1{tbl} Take 1 Un anju -acetaminop 4-17 tablet by ity of hen (NORCO) 00:00: mouth [place] 10-325 mg 00 every 6 Medical tablet (six) Branch hours as needed for Pain (scale 7-10). Indication s: acute pain ketorolac 2022-0 Yes [id number] 10mg Take 1 Univers 10 mg 4-17 [id number] tablet by ity of tablet 00:00: mouth [place] 00 every 6 Medical (six) Branch hours as needed for Alternate with [place]el[place] for pain scale 4-6. HYDROcodone 2022-0 Yes [id number] 1{tbl} Take 1 Un anju -acetaminop 4-17 tablet by ity of hen (NORCO) 00:00: mouth [place] 10-325 mg 00 every 6 Medical tablet (six) Branch hours as needed for Pain (scale 7-10). Indication s: acute pain ketorolac 2022-0 Yes [id number] 10mg Take 1 Univers 10 mg 4-17 [id number] tablet by ity of tablet 00:00: mouth [place] 00 every 6 Medical (six) Branch hours as needed for Alternate with [place]el[place] for pain scale 4-6. HYDROcodone 2022-0 Yes [id number] 1{tbl} Take 1 Un anju -acetaminop 4-17 tablet by ity of hen (NORCO) 00:00: mouth [place] 10-325 mg 00 every 6 Medical tablet (six) Branch hours as needed for Pain (scale 7-10). Indication s: acute pain ketorolac 2022-0 Yes [id number] 10mg Take 1 Univers 10 mg 4-17 [id number] tablet by ity of tablet 00:00: mouth [place] 00 every 6 Medical (six) Branch hours as needed for Alternate with [place] for pain scale 4-6. HYDROcodone 2022-0 Yes [id number] 1{tbl} Take 1 Un anju -acetaminop 4-17 tablet by ity of hen (NORCO) 00:00: mouth [place] 10-325 mg 00 every 6 Medical tablet (six) Branch hours as needed for Pain (scale 7-10). Indication s: acute pain ketorolac 2022-0 Yes [id number] 10mg Take 1 Univers 10 mg 4-17 [id number] tablet by ity of tablet 00:00: mouth [place] 00 every 6 Medical (six) Branch hours as needed for Alternate with [place] for pain scale 4-6. HYDROcodone 2022-0 Yes [id number] 1{tbl} Take 1 Un anju -acetaminop 4-17 tablet by ity of hen (NORCO) 00:00: mouth [place] 10-325 mg 00 every 6 Medical tablet (six) Branch hours as needed for Pain (scale 7-10). Indication s: acute pain ketorolac 2022-0 Yes [id number] 10mg Take 1 Univers 10 mg 4-17 [id number] tablet by ity of tablet 00:00: mouth [place] 00 every 6 Medical (six) Branch hours as needed for Alternate with [place]el[place] for pain scale 4-6. HYDROcodone 2022-0 Yes [id number] 1{tbl} Take 1 Un anju -acetaminop 4-17 tablet by ity of hen (NORCO) 00:00: mouth [place] 10-325 mg 00 every 6 Medical tablet (six) Branch hours as needed for Pain (scale 7-10). Indication s: acute pain ketorolac 2022-0 Yes [id number] 10mg Take 1 Univers 10 mg 4-17 [id number] tablet by ity of tablet 00:00: mouth [place] 00 every 6 Medical (six) Branch hours as needed for Alternate with [place] for pain scale 4-6. HYDROcodone 2022-0 Yes [id number] 1{tbl} Take 1 Un anju -acetaminop 4-17 tablet by ity of hen (NORCO) 00:00: mouth [place] 10-325 mg 00 every 6 Medical tablet (six) Branch hours as needed for Pain (scale 7-10). Indication s: acute pain ketorolac 2022-0 Yes [id number] 10mg Take 1 [facility] 10 mg 4-17 [id number] tablet by [facility]y of tablet 00:00: mouth [place] 00 every 6 Medical (six) Branch hours as needed for Alternate with [facility] for pain scale 4-6. HYDROcodone 2022-0 Yes [id number] 1{tbl} Take 1 [facility] -acetaminop 4-17 tablet by ity of hen (NORCO) 00:00: mouth [place] 10-325 mg 00 every 6 Medical tablet (six) Branch hours as needed for Pain (scale 7-10). Indication s: acute pain ketorolac 2022-0 Yes [id number] 10mg Take 1 [facility] 10 mg 4-17 [id number] tablet by ity of tablet 00:00: mouth [place] 00 every 6 Medical (six) Branch hours as needed for Alternate with [facility] for pain scale 4-6. HYDROcodone 2022-0 Yes [id number] 1{tbl} Take 1 [facility] -acetaminop 4-17 tablet by ity of hen (NORCO) 00:00: mouth [place] 10-325 mg 00 every 6 Medical tablet (six) Branch hours as needed for Pain (scale 7-10). Indication s: acute pain ketorolac 2022-0 Yes [id number] 10mg Take 1 [facility] 10 mg 4-17 [id number] tablet by ity of tablet 00:00: mouth [place] 00 every 6 Medical (six) Branch hours as needed for Alternate with [facility] for pain scale 4-6. HYDROcodone 2022-0 Yes [id number] 1{tbl} Take 1 [facility] -acetaminop 4-17 tablet by ity of hen (NORCO) 00:00: mouth [place] 10-325 mg 00 every 6 Medical tablet (six) Branch hours as needed for Pain (scale 7-10). Indication s: acute pain ketorolac 2022-0 Yes [id number] 10mg Take 1 [facility] 10 mg 4-17 [id number] tablet by ity of tablet 00:00: mouth [place] 00 every 6 Medical (six) Branch hours as needed for Alternate with [facility] for pain scale 4-6. HYDROcodone 2022-0 Yes [id number] 1{tbl} Take 1 [facility] -acetaminop 4-17 tablet by ity of hen (NORCO) 00:00: mouth [place] 10-325 mg 00 every 6 Medical tablet (six) Branch hours as needed for Pain (scale 7-10). Indication s: acute pain ketorolac 2022-0 Yes [id number] 10mg Take 1 [facility] 10 mg 4-17 [id number] tablet by ity of tablet 00:00: mouth [place] 00 every 6 Medical (six) Branch hours as needed for Alternate with [facility] for pain scale 4-6. HYDROcodone 2022-0 Yes [id number] 1{tbl} Take 1 [facility] -acetaminop 4-17 tablet by ity of hen (NORCO) 00:00: mouth [place] 10-325 mg 00 every 6 Medical tablet (six) Branch hours as needed for Pain (scale 7-10). Indication s: acute pain ketorolac 2022-0 Yes [id number] 10mg Take 1 [facility] 10 mg 4-17 [id number] tablet by ity of tablet 00:00: mouth [place] 00 every 6 Medical (six) Branch hours as needed for Alternate with [facility] for pain scale 4-6. HYDROcodone 2022-0 Yes [id number] 1{tbl} Take 1 [facility] -acetaminop 4-17 tablet by [facility]y of hen (NORCO) 00:00: mouth [place] 10-325 mg 00 every 6 Medical tablet (six) Branch hours as needed for Pain (scale 7-10). Indication s: acute pain ketorolac 2022-0 Yes [id number] 10mg Take 1 [facility] 10 mg 4-17 [id number] tablet by ity of tablet 00:00: mouth [place] 00 every 6 Medical (six) Branch hours as needed for Alternate with [facility] for pain scale 4-6. HYDROcodone 2022-0 Yes [id number] 1{tbl} Take 1 [facility] -acetaminop 4-17 tablet by ity of hen (NORCO) 00:00: mouth [place] 10-325 mg 00 every 6 Medical tablet (six) Branch hours as needed for Pain (scale 7-10). Indication s: acute pain ketorolac 2022-0 Yes [id number] 10mg Take 1 [facility] 10 mg 4-17 [id number] tablet by ity of tablet 00:00: mouth [place] 00 every 6 Medical (six) Branch hours as needed for Alternate with [facility] for pain scale 4-6. HYDROcodone 2022-0 Yes [id number] 1{tbl} Take 1 [facility] -acetaminop 4-17 tablet by ity of hen (NORCO) 00:00: mouth [place] 10-325 mg 00 every 6 Medical tablet (six) Branch hours as needed for Pain (scale 7-10). Indication s: acute pain ketorolac 2022-0 Yes [id number] 10mg Take 1 [facility] 10 mg 4-17 [id number] tablet by ity of tablet 00:00: mouth [place] 00 every 6 Medical (six) Branch hours as needed for Alternate with [facility] for pain scale 4-6. HYDROcodone 2022-0 Yes [id number] 1{tbl} Take 1 [facility] -acetaminop 4-17 tablet by [facility]y of hen (NORCO) 00:00: mouth [place] 10-325 mg 00 every 6 Medical tablet (six) Branch hours as needed for Pain (scale 7-10). Indication s: acute pain ketorolac 2022-0 Yes [id number] 10mg Take 1 [facility] 10 mg 4-17 [id number] tablet by ity of tablet 00:00: mouth [place] 00 every 6 Medical (six) Branch hours as needed for Alternate with [facility] for pain scale 4-6. HYDROcodone 2021-0 Yes [id number] 1{tbl} Take 1 [facility] -acetaminop 4-17 tablet by [facility]y of hen (NORCO) 00:00: mouth [place] 10-325 mg 00 every 6 Medical tablet (six) Branch hours as needed for Pain (scale 7-10). Indication s: acute pain ketorolac 2021-0 Yes [id number] 10mg Take 1 [facility] 10 mg 4-17 [id number] tablet by ity of tablet 00:00: mouth [place] 00 every 6 Medical (six) Branch hours as needed for Alternate with [facility] for pain scale 4-6. HYDROcodone 2021-0 Yes [id number] 1{tbl} Take 1 [facility] -acetaminop 4-17 tablet by [facility]y of hen (NORCO) 00:00: mouth [place] 10-325 mg 00 every 6 Medical tablet (six) Branch hours as needed for Pain (scale 7-10). Indication s: acute pain ibuprofen 2-0 Yes [id number] 800mg Take 1 [facility] 800 mg 3-31 tablet by ity of tablet 00:00: mouth [place] 00 every 8 Medical (eight) Branch hours. oxyCODONE-a 2022-0 Yes [id number] 1{tbl} Take 1 [facility] an[facility] cetaminophe 3-31 tablet by ity of n 5-325 mg 00:00: mouth [place] per tablet 00 every 6 Medica l (six) Branch hours as needed for Pain (scale 4-6). Indication s: acute pain ibuprofen 2022-0 Yes [id number] 800mg Take 1 [facility] 800 mg 3-31 [...] Indication s: acute pain ibuprofen 0 Yes [id number] 800mg Take 1 [facility] 800 mg 3-31 [...] 4-6). Indication s: acute pain ibuprofen Yes [id number] 800mg Take 1 [facility] 800 mg 3-31 [...] Indication s: acute pain ibuprofen 0 Yes [id number] 800mg Take 1 [facility] 800 mg 3-31 [...] Indication s: acute pain ibuprofen 0 Yes [id number] 800mg Take 1 [facility] 800 mg 3-31 [...] 4-6). Indication s: acute pain ibuprofen Yes [id number] 800mg Take 1 [facility] 800 mg 3-31 [...] 4-6). Indication s: acute pain ibuprofen Yes [id number] 800mg Take 1 [facility] 800 mg 3-31 [...] 4-6). Indication s: acute pain ibuprofen Yes [id number] 800mg Take 1 [facility] 800 mg 3-31 [...] 4-6). Indication s: acute pain ibuprofen Yes [id number] 800mg Take 1 [facility] 800 mg 3-31 [...] Indication s: acute pain ibuprofen 0 Yes [id number] 800mg Take 1 [facility] 800 mg 3-31 [...] 4-6). Indication s: acute pain ibuprofen Yes [id number] 800mg Take 1 [facility] 800 mg 3-31 [...] 4-6). Indication s: acute pain ibuprofen Yes [id number] 800mg Take 1 [facility] 800 mg 3-31 [...] 4-6). Indication s: acute pain ibuprofen Yes [id number] 800mg Take 1 [facility] 800 mg 3-31 [...] Indication s: acute pain ibuprofen 0 Yes [id number] 800mg Take 1 [facility] 800 mg 3-31 [...] Indication s: acute pain ibuprofen 0 Yes [id number] 800mg Take 1 [facility] 800 mg 3-31 [...] Indication s: acute pain ibuprofen 0 Yes [id number] 800mg Take 1 [facility] 800 mg 3-31 [...] Indication s: acute pain ibuprofen 0 Yes [id number] 800mg Take 1 [facility] 800 mg 3-31 [...] Indication s: acute pain ibuprofen 0 Yes [id number] 800mg Take 1 [facility] 800 mg 3-31 [...] Indication s: acute pain ibuprofen 0 Yes [id number] 800mg Take 1 [facility] 800 mg 3-31 [...] Indication s: acute pain ibuprofen 0 Yes [id number] 800mg Take 1 [facility] 800 mg 3-31 [...] Indication s: acute pain ibuprofen 0 Yes [id number] 800mg Take 1 [facility] 800 mg 3-31 [...] Indication s: acute pain ibuprofen 2021-0 Yes [id number] 800mg Take 1 [facility] 800 mg 3-31 tablet by ity of tablet 00:00: mouth [place] 00 every 8 Medical (eight) Branch hours. oxyCODONE-a Yes [id number] 1{tbl} Take 1 [facility] an[facility] cetaminophe 3-31 tablet by ity of n 5-325 mg 00:00: mouth [place] per tablet 00 every 6 Medica l (six) Branch hours as needed for Pain (scale 4-6). Indication s: acute pain ibuprofen Yes [id number] 800mg Take 1 [facility] 800 mg 3-31 [...] 4-6). Indication s: acute pain ibuprofen Yes [id number] 800mg Take 1 [facility] 800 mg 3-31 [...] 4-6). Indication s: acute pain ibuprofen Yes [id number] 800mg Take 1 [facility] 800 mg 3-31 [...] of mouthwash 00:00: [place] 00 Medical Branch chlorhexidi Yes Univer s ne 0.12 % 1-03 ity of mouthwash 00:00: [place] [facility] chlorhexidi Yes Univer s ne 0.12 % 1-03 ity of mouthwash 00:00: Medical Branch chlorhexidi 2021-0 Yes Univer s ne 0.12 % 1-03 ity of mouthwash 00:00: Medical Branch chlorhexidi 2021-0 Yes Univer s ne 0.12 % 1-03 ity of mouthwash 00:00: Medical Branch chlorhexidi 2021-0 Yes Univer s ne 0.12 % 1-03 ity of mouthwash 00:00: Medical Branch chlorhexidi 2021-0 Yes Univer s ne 0.12 % 1-03 ity of mouthwash 00:00: [place] [facility] chlorhexidi 2021-0 Yes Univer s ne 0.12 % 1-03 ity of mouthwash 00:00: [place] [facility] chlorhexidi 2021-0 Yes Univer s ne 0.12 % 1-03 ity of mouthwash 00:00: [place] [facility] chlorhexidi 2021-0 Yes Univer s ne 0.12 % 1-03 ity of mouthwash 00:00: Medical Branch chlorhexidi 0 Yes Univer s ne 0.12 % 1-03 ity of mouthwash 00:00: Medical Branch chlorhexidi 2021-0 Yes Univer s ne 0.12 % 1-03 ity of mouthwash 00:00: Medical Branch chlorhexidi 2021-0 Yes Univer s ne 0.12 % 1-03 ity of mouthwash 00:00: Medical Branch chlorhexidi 2021-0 Yes Univer s ne 0.12 % 1-03 ity of mouthwash 00:00: [place] [facility] chlorhexidi 2021-0 Yes Univer s ne 0.12 % 1-03 ity of mouthwash 00:00: [place] [facility] chlorhexidi 2021-0 Yes Univer s ne 0.12 % 1-03 ity of mouthwash 00:00: [place] [facility] chlorhexidi 2021-0 Yes Univer s ne 0.12 % 1-03 ity of mouthwash 00:00: [place] [facility] chlorhexidi 2021-0 Yes Univer s ne 0.12 % 1-03 ity of mouthwash 00:00: [place] 00 Medical Branch chlorhexidi 2021-0 Yes Univer s ne 0.12 % 1-03 ity of mouthwash 00:00: [place] [facility] chlorhexidi 2021-0 Yes Univer s ne 0.12 % 1-03 ity of mouthwash 00:00: [place] [facility] chlorhexidi 2021-0 Yes Univer s ne 0.12 % 1-03 ity of mouthwash 00:00: [place] [facility] chlorhexidi 2021-0 Yes Univer s ne 0.12 % 1-03 ity of mouthwash 00:00: [place] [facility] chlorhexidi 2021-0 Yes Univer s ne 0.12 % 1-03 ity of mouthwash 00:00: [place] [facility] chlorhexidi 2021-0 Yes Univer s ne 0.12 % 1-03 ity of mouthwash 00:00: [place] [facility] chlorhexidi 2021-0 Yes Univer s ne 0.12 % 1-03 ity of mouthwash 00:00: [place] [facility] chlorhexidi 2021-0 Yes Univer s ne 0.12 % 1-03 ity of mouthwash 00:00: [place] [facility] DULOXETINE 2020-0 Yes [id number] TAKE 1 [facility] 20 mg 6-22 CAPSULE BY ity of capsule 00:00: MOUTH [place] TWICE Medical DAILY Branch DULOXETINE 2020-0 Yes [id number] TAKE 1 [facility] 20 mg 6-22 CAPSULE BY ity of capsule 00:00: MOUTH [place] TWICE Medical DAILY Branch DULOXETINE 2020-0 Yes [id number] TAKE 1 [facility] 20 mg 6-22 CAPSULE BY ity of capsule 00:00: MOUTH [place] TWICE Medical DAILY Branch DULOXETINE 2020-0 Yes [id number] TAKE 1 [facility] 20 mg 6-22 CAPSULE BY ity of capsule 00:00: MOUTH [place] TWICE Medical DAILY Branch DULOXETINE 2020-0 Yes [id number] TAKE 1 [facility] 20 mg 6-22 CAPSULE BY ity of capsule 00:00: MOUTH [place] TWICE Medical DAILY Branch DULOXETINE 2020-0 Yes [id number] TAKE 1 [facility] 20 mg 6-22 CAPSULE BY ity of capsule 00:00: MOUTH [place] TWICE Medical DAILY Branch DULOXETINE 2020-0 Yes [id number] TAKE 1 [facility] 20 mg 6-22 CAPSULE BY ity of capsule 00:00: MOUTH [place] 00 TWICE Medical DAILY Branch DULOXETINE 2020-0 Yes [id number] TAKE 1 [facility] 20 mg 6-22 CAPSULE BY ity of capsule 00:00: MOUTH [place] 00 TWICE Medical DAILY Branch DULOXETINE 2020-0 Yes [id number] TAKE 1 [facility] 20 mg 6-22 CAPSULE BY ity of capsule 00:00: MOUTH [place] 00 TWICE Medical DAILY Branch DULOXETINE 2020-0 Yes [id number] TAKE 1 [facility] 20 mg 6-22 CAPSULE BY ity of capsule 00:00: MOUTH [place] 00 TWICE Medical DAILY Branch DULOXETINE 2020-0 Yes [id number] TAKE 1 [facility] 20 mg 6-22 CAPSULE BY ity of capsule 00:00: MOUTH [place] TWICE Medical DAILY Branch DULOXETINE 2020-0 Yes [id number] TAKE 1 [facility] 20 mg 6-22 CAPSULE BY ity of capsule 00:00: MOUTH [place] TWICE Medical DAILY Branch DULOXETINE 2020-0 Yes [id number] TAKE 1 [facility] 20 mg 6-22 CAPSULE BY ity of capsule 00:00: MOUTH TWICE Medical DAILY Branch DULOXETINE 2020-0 Yes [id number] TAKE 1 [facility] 20 mg 6-22 CAPSULE BY ity of capsule 00:00: MOUTH [place] 00 TWICE Medical DAILY Branch DULOXETINE 2020-0 Yes [id number] TAKE 1 [facility] 20 mg 6-22 CAPSULE BY ity of capsule 00:00: MOUTH [place] 00 TWICE Medical DAILY Branch DULOXETINE 2020-0 Yes [id number] TAKE 1 [facility] 20 mg 6-22 CAPSULE BY ity of capsule 00:00: MOUTH [place] TWICE Medical DAILY Branch DULOXETINE 2020-0 Yes [id number] TAKE 1 [facility] 20 mg 6-22 CAPSULE BY ity of capsule 00:00: MOUTH [place] 00 TWICE Medical DAILY Branch DULOXETINE 2020-0 Yes [id number] TAKE 1 [facility] 20 mg 6-22 CAPSULE BY ity of capsule 00:00: MOUTH [place] TWICE Medical DAILY Branch DULOXETINE 2020-0 Yes [id number] TAKE 1 [facility] 20 mg 6-22 CAPSULE BY ity of capsule 00:00: MOUTH [place] 00 TWICE Medical DAILY Branch DULOXETINE 2020-0 Yes [id number] TAKE 1 [facility] 20 mg 6-22 CAPSULE BY ity of capsule 00:00: MOUTH [place] TWICE Medical DAILY Branch DULOXETINE 2020-0 Yes [id number] TAKE 1 [facility] 20 mg 6-22 CAPSULE BY ity of capsule 00:00: MOUTH [place] 00 TWICE Medical DAILY Branch DULOXETINE 0 Yes [id number] TAKE 1 [facility] 20 mg 6-22 CAPSULE BY ity of capsule 00:00: MOUTH [place] 00 TWICE Medical DAILY Branch DULOXETINE 2020-0 Yes [id number] TAKE 1 [facility] 20 mg 6-22 CAPSULE BY ity of capsule 00:00: MOUTH [place] 00 TWICE Medical DAILY Branch DULOXETINE 0 Yes [id number] TAKE 1 [facility] 20 mg 6-22 CAPSULE BY ity of capsule 00:00: MOUTH [place] 00 TWICE Medical DAILY Branch DULOXETINE 0 Yes [id number] TAKE 1 [facility] 20 mg 6-22 CAPSULE BY ity of capsule 00:00: MOUTH [place] 00 TWICE Medical DAILY Branch DULOXETINE Yes [id number] TAKE 1 [facility] 20 mg 6-22 CAPSULE BY ity of capsule 00:00: MOUTH [place] 00 TWICE Medical DAILY Branch glecaprevir Yes [id number] 3{tbl} Take 3 [facility] -pibrentasv 3-21 tablets by it y of ir 00:00: mouth [place] (MAVYRET) 00 daily. Medical 100-40 mg Branch buPROPion Yes [id number] 150mg Take 1 [facility] SR 3-21 tablet by ity of (WELLBUTRIN 00:00: mouth [place] SR) 150 mg 00 daily. Medical SR tablet Branch benzoyl Yes [id number] Apply to U nivers peroxide 3-21 area(s) 2 ity of (ACNE 00:00: (two) [place] FOAMING 00 times Medical WASH) 10 % daily. Branch external wash albuterol Yes [id number] 2{puff} Inhale 2 [facility] 90 3-21 Puffs ity of mcg/actuati 00:00: every 4 [place] as on inhaler 00 (four) Medical hours as Branch needed for Wheezing or Shortness of Breath. albuterol Yes [id number] 2.5mg Inhale 3 [facility] 2.5 mg /3 3-21 mL every 4 ity of mL (0.083 00:00: (four) [place] %) 00 hours as Medical nebulizer needed for Bran ch solution Wheezing or Shortness of Breath. valACYclovi Yes [id number] 1g Take 1 [facility] r 1 gram 3-21 tablet by ity of tablet 00:00: mouth [place] 00 daily. Medical Branch meclizine Yes [id number] 25mg Take 1 U nivers 25 mg 3-21 tablet by ity of tablet 00:00: mouth 3 [place] 00 (three) Medical times Branch daily as needed for Dizziness. glecaprevir Yes [id number] 3{tbl} Take 3 [facility] -pibrentasv 3-21 tablets by it y of ir 00:00: mouth [place] (MAVYRET) 00 daily. Medical 100-40 mg Branch buPROPion Yes [id number] 150mg Take 1 [facility] SR 3-21 tablet by ity of (WELLBUTRIN 00:00: mouth [place] SR) 150 mg 00 daily. Medical SR tablet Branch benzoyl Yes [id number] Apply to U nivers peroxide 3-21 area(s) 2 ity of (ACNE 00:00: (two) [place] FOAMING 00 times Medical WASH) 10 % daily. Branch external wash albuterol Yes [id number] 2{puff} Inhale 2 [facility] 90 3-21 Puffs ity of mcg/actuati 00:00: every 4 [place] as on inhaler 00 (four) Medical hours as Branch needed for Wheezing or Shortness of Breath. albuterol Yes [id number] 2.5mg Inhale 3 [facility] 2.5 mg /3 3-21 mL every 4 ity of mL (0.083 00:00: (four) [place] %) 00 hours as Medical nebulizer needed for Bran ch solution Wheezing or Shortness of Breath. valACYclovi Yes [id number] 1g Take 1 [facility] r 1 gram 3-21 tablet by ity of tablet 00:00: mouth [place] 00 daily. Medical Branch meclizine Yes [id number] 25mg Take 1 U nivers 25 mg 3-21 tablet by ity of tablet 00:00: mouth 3 [place] 00 (three) Medical times Branch daily as needed for Dizziness. glecaprevir Yes [id number] 3{tbl} Take 3 [facility] -pibrentasv 3-21 tablets by it y of ir 00:00: mouth [place] (MAVYRET) 00 daily. Medical 100-40 mg Branch buPROPion Yes [id number] 150mg Take 1 [facility] SR 3-21 tablet by ity of (WELLBUTRIN 00:00: mouth [place] SR) 150 mg 00 daily. Medical SR tablet Branch benzoyl Yes [id number] Apply to U nivers peroxide 3-21 area(s) 2 ity of (ACNE 00:00: (two) [place] FOAMING 00 times Medical WASH) 10 % daily. Branch external wash albuterol Yes [id number] 2{puff} Inhale 2 [facility] 90 3-21 Puffs ity of mcg/actuati 00:00: every 4 [place] as on inhaler 00 (four) Medical hours as Branch needed for Wheezing or Shortness of Breath. albuterol Yes [id number] 2.5mg Inhale 3 [facility] 2.5 mg /3 3-21 mL every 4 ity of mL (0.083 00:00: (four) [place] %) 00 hours as Medical nebulizer needed for Bran ch solution Wheezing or Shortness of Breath. valACYclovi Yes [id number] 1g Take 1 [facility] r 1 gram 3-21 tablet by ity of tablet 00:00: mouth [place] 00 daily. Medical Branch meclizine Yes [id number] 25mg Take 1 U nivers 25 mg 3-21 tablet by ity of tablet 00:00: mouth 3 [place] 00 (three) Medical times Branch daily as needed for Dizziness. glecaprevir Yes [id number] 3{tbl} Take 3 [facility] -pibrentasv 3-21 tablets by it y of ir 00:00: mouth [place] (MAVYRET) 00 daily. Medical 100-40 mg Branch buPROPion Yes [id number] 150mg Take 1 [facility] SR 3-21 tablet by ity of (WELLBUTRIN 00:00: mouth [place] SR) 150 mg 00 daily. Medical SR tablet Branch benzoyl Yes [id number] Apply to U nivers peroxide 3-21 area(s) 2 ity of (ACNE 00:00: (two) [place] FOAMING 00 times Medical WASH) 10 % daily. Branch external wash albuterol Yes [id number] 2{puff} Inhale 2 [facility] 90 3-21 Puffs ity of mcg/actuati 00:00: every 4 [place] as on inhaler 00 (four) Medical hours as Branch needed for Wheezing or Shortness of Breath. albuterol Yes [id number] 2.5mg Inhale 3 [facility] 2.5 mg /3 3-21 mL every 4 ity of mL (0.083 00:00: (four) [place] %) 00 hours as Medical nebulizer needed for Bran ch solution Wheezing or Shortness of Breath. valACYclovi Yes [id number] 1g Take 1 [facility] r 1 gram 3-21 tablet by ity of tablet 00:00: mouth [place] 00 daily. Medical Branch meclizine Yes [id number] 25mg Take 1 U nivers 25 mg 3-21 tablet by ity of tablet 00:00: mouth 3 [place] 00 (three) Medical times Branch daily as needed for Dizziness. glecaprevir Yes [id number] 3{tbl} Take 3 [facility] -pibrentasv 3-21 tablets by it y of ir 00:00: mouth [place] (MAVYRET) 00 daily. Medical 100-40 mg Branch buPROPion Yes [id number] 150mg Take 1 [facility] SR 3-21 tablet by ity of (WELLBUTRIN 00:00: mouth [place] SR) 150 mg 00 daily. Medical SR tablet Branch benzoyl Yes [id number] Apply to U nivers peroxide 3-21 area(s) 2 ity of (ACNE 00:00: (two) [place] FOAMING 00 times Medical WASH) 10 % daily. Branch external wash albuterol Yes [id number] 2{puff} Inhale 2 [facility] 90 3-21 Puffs ity of mcg/actuati 00:00: every 4 [place] as on inhaler 00 (four) Medical hours as Branch needed for Wheezing or Shortness of Breath. albuterol Yes [id number] 2.5mg Inhale 3 [facility] 2.5 mg /3 3-21 mL every 4 ity of mL (0.083 00:00: (four) [place] %) 00 hours as Medical nebulizer needed for Bran ch solution Wheezing or Shortness of Breath. valACYclovi Yes [id number] 1g Take 1 [facility] r 1 gram 3-21 tablet by ity of tablet 00:00: mouth [place] 00 daily. Medical Branch meclizine Yes [id number] 25mg Take 1 U nivers 25 mg 3-21 tablet by ity of tablet 00:00: mouth 3 [place] 00 (three) Medical times Branch daily as needed for Dizziness. glecaprevir Yes [id number] 3{tbl} Take 3 [facility] -pibrentasv 3-21 tablets by it y of ir 00:00: mouth [place] (MAVYRET) 00 daily. Medical 100-40 mg Branch buPROPion Yes [id number] 150mg Take 1 [facility] SR 3-21 tablet by ity of (WELLBUTRIN 00:00: mouth [place] SR) 150 mg 00 daily. Medical SR tablet Branch benzoyl Yes [id number] Apply to U nivers peroxide 3-21 area(s) 2 ity of (ACNE 00:00: (two) [place] FOAMING 00 times Medical WASH) 10 % daily. Branch external wash albuterol Yes [id number] 2{puff} Inhale 2 [facility] 90 3-21 Puffs ity of mcg/actuati 00:00: every 4 [place] as on inhaler 00 (four) Medical hours as Branch needed for Wheezing or Shortness of Breath. albuterol Yes [id number] 2.5mg Inhale 3 [facility] 2.5 mg /3 3-21 mL every 4 ity of mL (0.083 00:00: (four) [place] %) 00 hours as Medical nebulizer needed for Bran ch solution Wheezing or Shortness of Breath. valACYclovi Yes [id number] 1g Take 1 [facility] r 1 gram 3-21 tablet by ity of tablet 00:00: mouth [place] 00 daily. Medical Branch meclizine Yes [id number] 25mg Take 1 U nivers 25 mg 3-21 tablet by ity of tablet 00:00: mouth 3 [place] 00 (three) Medical times Branch daily as needed for Dizziness. glecaprevir Yes [id number] 3{tbl} Take 3 [facility] -pibrentasv 3-21 tablets by it y of ir 00:00: mouth [place] (MAVYRET) 00 daily. Medical 100-40 mg Branch buPROPion Yes [id number] 150mg Take 1 [facility] SR 3-21 tablet by ity of (WELLBUTRIN 00:00: mouth [place] SR) 150 mg 00 daily. Medical SR tablet Branch benzoyl Yes [id number] Apply to U nivers peroxide 3-21 area(s) 2 ity of (ACNE 00:00: (two) [place] FOAMING 00 times Medical WASH) 10 % daily. Branch external wash albuterol Yes [id number] 2{puff} Inhale 2 [facility] 90 3-21 Puffs ity of mcg/actuati 00:00: every 4 [place] as on inhaler 00 (four) Medical hours as Branch needed for Wheezing or Shortness of Breath. albuterol Yes [id number] 2.5mg Inhale 3 [facility] 2.5 mg /3 3-21 mL every 4 ity of mL (0.083 00:00: (four) [place] %) 00 hours as Medical nebulizer needed for Bran ch solution Wheezing or Shortness of Breath. valACYclovi Yes [id number] 1g Take 1 [facility] r 1 gram 3-21 tablet by ity of tablet 00:00: mouth [place] 00 daily. Medical Branch meclizine Yes [id number] 25mg Take 1 U nivers 25 mg 3-21 tablet by ity of tablet 00:00: mouth 3 [place] 00 (three) Medical times Branch daily as needed for Dizziness. glecaprevir Yes [id number] 3{tbl} Take 3 [facility] -pibrentasv 3-21 tablets by it y of ir 00:00: mouth [place] (MAVYRET) 00 daily. Medical 100-40 mg Branch buPROPion 2020- Yes [id number] 150mg Take 1 [facility] SR 3-21 tablet by ity of (WELLBUTRIN 00:00: mouth [place] SR) 150 mg 00 daily. Medical SR tablet Branch benzoyl Yes [id number] Apply to U nivers peroxide 3-21 area(s) 2 ity of (ACNE 00:00: (two) [place] FOAMING 00 times Medical WASH) 10 % daily. Branch external wash albuterol Yes [id number] 2{puff} Inhale 2 [facility] 90 3-21 Puffs ity of mcg/actuati 00:00: every 4 [place] as on inhaler 00 (four) Medical hours as Branch needed for Wheezing or Shortness of Breath. albuterol Yes [id number] 2.5mg Inhale 3 [facility] 2.5 mg /3 3-21 mL every 4 ity of mL (0.083 00:00: (four) [place] %) 00 hours as Medical nebulizer needed for Bran ch solution Wheezing or Shortness of Breath. valACYclovi Yes [id number] 1g Take 1 [facility] r 1 gram 3-21 tablet by ity of tablet 00:00: mouth [place] 00 daily. Medical Branch meclizine Yes [id number] 25mg Take 1 U nivers 25 mg 3-21 tablet by ity of tablet 00:00: mouth 3 [place] 00 (three) Medical times Branch daily as needed for Dizziness. glecaprevir Yes [id number] 3{tbl} Take 3 [facility] -pibrentasv 3-21 tablets by it y of ir 00:00: mouth [place] (MAVYRET) 00 daily. Medical 100-40 mg Branch buPROPion Yes [id number] 150mg Take 1 [facility] SR 3-21 tablet by ity of (WELLBUTRIN 00:00: mouth [place] SR) 150 mg 00 daily. Medical SR tablet Branch benzoyl Yes [id number] Apply to U nivers peroxide 3-21 area(s) 2 ity of (ACNE 00:00: (two) [place] FOAMING 00 times Medical WASH) 10 % daily. Branch external wash albuterol Yes [id number] 2{puff} Inhale 2 [facility] 90 3-21 Puffs ity of mcg/actuati 00:00: every 4 [place] as on inhaler 00 (four) Medical hours as Branch needed for Wheezing or Shortness of Breath. albuterol Yes [id number] 2.5mg Inhale 3 [facility] 2.5 mg /3 3-21 mL every 4 ity of mL (0.083 00:00: (four) [place] %) 00 hours as Medical nebulizer needed for Bran ch solution Wheezing or Shortness of Breath. valACYclovi Yes [id number] 1g Take 1 [facility] r 1 gram 3-21 tablet by ity of tablet 00:00: mouth [place] 00 daily. Medical Branch meclizine Yes [id number] 25mg Take 1 U nivers 25 mg 3-21 tablet by ity of tablet 00:00: mouth 3 [place] 00 (three) Medical times Branch daily as needed for Dizziness. glecaprevir Yes [id number] 3{tbl} Take 3 [facility] -pibrentasv 3-21 tablets by [facility] y of ir 00:00: mouth [place] (MAVYRET) 00 daily. Medical 100-40 mg Branch buPROPion Yes [id number] 150mg Take 1 [facility] SR 3-21 tablet by ity of (WELLBUTRIN 00:00: mouth [place] SR) 150 mg 00 daily. Medical SR tablet Branch benzoyl Yes [id number] Apply to U nivers peroxide 3-21 area(s) 2 ity of (ACNE 00:00: (two) [place] FOAMING 00 times Medical WASH) 10 % daily. Branch external wash albuterol Yes [id number] 2{puff} Inhale 2 [facility] 90 3-21 Puffs ity of mcg/actuati 00:00: every 4 [place] as on inhaler 00 (four) Medical hours as Branch needed for Wheezing or Shortness of Breath. albuterol Yes [id number] 2.5mg Inhale 3 [facility] 2.5 mg /3 3-21 mL every 4 ity of mL (0.083 00:00: (four) [place] %) 00 hours as Medical nebulizer needed for Bran ch solution Wheezing or Shortness of Breath. valACYclovi Yes [id number] 1g Take 1 [facility] r 1 gram 3-21 tablet by ity of tablet 00:00: mouth [place] 00 daily. Medical Branch meclizine Yes [id number] 25mg Take 1 U nivers 25 mg 3-21 tablet by ity of tablet 00:00: mouth 3 [place] 00 (three) Medical times Branch daily as needed for Dizziness. glecaprevir Yes [id number] 3{tbl} Take 3 [facility] -pibrentasv 3-21 tablets by it y of ir 00:00: mouth [place] (MAVYRET) 00 daily. Medical 100-40 mg Branch buPROPion Yes [id number] 150mg Take 1 [facility] SR 3-21 tablet by ity of (WELLBUTRIN 00:00: mouth [place] SR) 150 mg 00 daily. Medical SR tablet Branch benzoyl Yes [id number] Apply to U nivers peroxide 3-21 area(s) 2 ity of (ACNE 00:00: (two) [place] FOAMING 00 times Medical WASH) 10 % daily. Branch external wash albuterol Yes [id number] 2{puff} Inhale 2 [facility] 90 3-21 Puffs ity of mcg/actuati 00:00: every 4 [place] as on inhaler 00 (four) Medical hours as Branch needed for Wheezing or Shortness of Breath. albuterol Yes [id number] 2.5mg Inhale 3 [facility] 2.5 mg /3 3-21 mL every 4 ity of mL (0.083 00:00: (four) [place] %) 00 hours as Medical nebulizer needed for Bran ch solution Wheezing or Shortness of Breath. valACYclovi Yes [id number] 1g Take 1 [facility] r 1 gram 3-21 tablet by ity of tablet 00:00: mouth [place] 00 daily. Medical Branch meclizine Yes [id number] 25mg Take 1 U nivers 25 mg 3-21 tablet by ity of tablet 00:00: mouth 3 [place] 00 (three) Medical times Branch daily as needed for Dizziness. glecaprevir Yes [id number] 3{tbl} Take 3 [facility] -pibrentasv 3-21 tablets by it y of ir 00:00: mouth [place] (MAVYRET) 00 daily. Medical 100-40 mg Branch buPROPion Yes [id number] 150mg Take 1 [facility] SR 3-21 tablet by ity of (WELLBUTRIN 00:00: mouth [place] SR) 150 mg 00 daily. Medical SR tablet Branch benzoyl Yes [id number] Apply to U nivers peroxide 3-21 area(s) 2 ity of (ACNE 00:00: (two) [place] FOAMING 00 times Medical WASH) 10 % daily. Branch external wash albuterol Yes [id number] 2{puff} Inhale 2 [facility] 90 3-21 Puffs ity of mcg/actuati 00:00: every 4 [place] as on inhaler 00 (four) Medical hours as Branch needed for Wheezing or Shortness of Breath. albuterol Yes [id number] 2.5mg Inhale 3 [facility] 2.5 mg /3 3-21 mL every 4 ity of mL (0.083 00:00: (four) [place] %) 00 hours as Medical nebulizer needed for Bran ch solution Wheezing or Shortness of Breath. valACYclovi Yes [id number] 1g Take 1 [facility] r 1 gram 3-21 tablet by ity of tablet 00:00: mouth [place] 00 daily. Medical Branch meclizine Yes [id number] 25mg Take 1 U nivers 25 mg 3-21 tablet by ity of tablet 00:00: mouth 3 [place] 00 (three) Medical times Branch daily as needed for Dizziness. glecaprevir Yes [id number] 3{tbl} Take 3 [facility] -pibrentasv 3-21 tablets by it y of ir 00:00: mouth [place] (MAVYRET) 00 daily. Medical 100-40 mg Branch buPROPion Yes [id number] 150mg Take 1 [facility] SR 3-21 tablet by ity of (WELLBUTRIN 00:00: mouth [place] SR) 150 mg 00 daily. Medical SR tablet Branch benzoyl Yes [id number] Apply to U nivers peroxide 3-21 area(s) 2 ity of (ACNE 00:00: (two) [place] FOAMING 00 times Medical WASH) 10 % daily. Branch external wash albuterol Yes [id number] 2{puff} Inhale 2 [facility] 90 3-21 Puffs ity of mcg/actuati 00:00: every 4 [place] as on inhaler 00 (four) Medical hours as Branch needed for Wheezing or Shortness of Breath. albuterol Yes [id number] 2.5mg Inhale 3 [facility] 2.5 mg /3 3-21 mL every 4 ity of mL (0.083 00:00: (four) [place] %) 00 hours as Medical nebulizer needed for Bran ch solution Wheezing or Shortness of Breath. valACYclovi Yes [id number] 1g Take 1 [facility] r 1 gram 3-21 tablet by ity of tablet 00:00: mouth [place] 00 daily. Medical Branch meclizine Yes [id number] 25mg Take 1 U nivers 25 mg 3-21 tablet by ity of tablet 00:00: mouth 3 [place] 00 (three) Medical times Branch daily as needed for Dizziness. glecaprevir Yes [id number] 3{tbl} Take 3 [facility] -pibrentasv 3-21 tablets by it y of ir 00:00: mouth [place] (MAVYRET) 00 daily. Medical 100-40 mg Branch buPROPion Yes [id number] 150mg Take 1 [facility] SR 3-21 tablet by ity of (WELLBUTRIN 00:00: mouth [place] SR) 150 mg 00 daily. Medical SR tablet Branch benzoyl Yes [id number] Apply to U nivers peroxide 3-21 area(s) 2 ity of (ACNE 00:00: (two) [place] FOAMING 00 times Medical WASH) 10 % daily. Branch external wash albuterol Yes [id number] 2{puff} Inhale 2 [facility] 90 3-21 Puffs ity of mcg/actuati 00:00: every 4 [place] as on inhaler 00 (four) Medical hours as Branch needed for Wheezing or Shortness of Breath. albuterol Yes [id number] 2.5mg Inhale 3 [facility] 2.5 mg /3 3-21 mL every 4 ity of mL (0.083 00:00: (four) [place] %) 00 hours as Medical nebulizer needed for Bran ch solution Wheezing or Shortness of Breath. valACYclovi Yes [id number] 1g Take 1 [facility] r 1 gram 3-21 tablet by ity of tablet 00:00: mouth [place] 00 daily. Medical Branch meclizine Yes [id number] 25mg Take 1 U nivers 25 mg 3-21 tablet by ity of tablet 00:00: mouth 3 [place] 00 (three) Medical times Branch daily as needed for Dizziness. glecaprevir Yes [id number] 3{tbl} Take 3 [facility] -pibrentasv 3-21 tablets by it y of ir 00:00: mouth [place] (MAVYRET) 00 daily. Medical 100-40 mg Branch buPROPion Yes [id number] 150mg Take 1 [facility] SR 3-21 tablet by ity of (WELLBUTRIN 00:00: mouth [place] SR) 150 mg 00 daily. Medical SR tablet Branch benzoyl Yes [id number] Apply to U nivers peroxide 3-21 area(s) 2 ity of (ACNE 00:00: (two) [place] FOAMING 00 times Medical WASH) 10 % daily. Branch external wash albuterol Yes [id number] 2{puff} Inhale 2 [facility] 90 3-21 Puffs ity of mcg/actuati 00:00: every 4 [place] as on inhaler 00 (four) Medical hours as Branch needed for Wheezing or Shortness of Breath. albuterol Yes [id number] 2.5mg Inhale 3 [facility] 2.5 mg /3 3-21 mL every 4 ity of mL (0.083 00:00: (four) [place] %) 00 hours as Medical nebulizer needed for Bran ch solution Wheezing or Shortness of Breath. valACYclovi Yes [id number] 1g Take 1 [facility] r 1 gram 3-21 tablet by ity of tablet 00:00: mouth [place] 00 daily. Medical Branch meclizine Yes [id number] 25mg Take 1 U nivers 25 mg 3-21 tablet by ity of tablet 00:00: mouth 3 [place] 00 (three) Medical times Branch daily as needed for Dizziness. glecaprevir Yes [id number] 3{tbl} Take 3 [facility] -pibrentasv 3-21 tablets by it y of ir 00:00: mouth [place] (MAVYRET) 00 daily. Medical 100-40 mg Branch buPROPion Yes [id number] 150mg Take 1 [facility] SR 3-21 tablet by ity of (WELLBUTRIN 00:00: mouth [place] SR) 150 mg 00 daily. Medical SR tablet Branch benzoyl Yes [id number] Apply to U nivers peroxide 3-21 area(s) 2 ity of (ACNE 00:00: (two) [place] FOAMING 00 times Medical WASH) 10 % daily. Branch external wash albuterol Yes [id number] 2{puff} Inhale 2 [facility] 90 3-21 Puffs ity of mcg/actuati 00:00: every 4 [place] as on inhaler 00 (four) Medical hours as Branch needed for Wheezing or Shortness of Breath. albuterol Yes [id number] 2.5mg Inhale 3 [facility] 2.5 mg /3 3-21 mL every 4 ity of mL (0.083 00:00: (four) [place] %) 00 hours as Medical nebulizer needed for Bran ch solution Wheezing or Shortness of Breath. valACYclovi Yes [id number] 1g Take 1 [facility] r 1 gram 3-21 tablet by ity of tablet 00:00: mouth [place] 00 daily. Medical Branch meclizine Yes [id number] 25mg Take 1 U nivers 25 mg 3-21 tablet by ity of tablet 00:00: mouth 3 [place] 00 (three) Medical times Branch daily as needed for Dizziness. glecaprevir Yes [id number] 3{tbl} Take 3 [facility] -pibrentasv 3-21 tablets by it y of ir 00:00: mouth [place] (MAVYRET) 00 daily. Medical 100-40 mg Branch buPROPion Yes [id number] 150mg Take 1 [facility] SR 3-21 tablet by ity of (WELLBUTRIN 00:00: mouth [place] SR) 150 mg 00 daily. Medical SR tablet Branch benzoyl Yes [id number] Apply to U nivers peroxide 3-21 area(s) 2 ity of (ACNE 00:00: (two) [place] FOAMING 00 times Medical WASH) 10 % daily. Branch external wash albuterol Yes [id number] 2{puff} Inhale 2 [facility] 90 3-21 Puffs ity of mcg/actuati 00:00: every 4 [place] as on inhaler 00 (four) Medical hours as Branch needed for Wheezing or Shortness of Breath. albuterol Yes [id number] 2.5mg Inhale 3 [facility] 2.5 mg /3 3-21 mL every 4 ity of mL (0.083 00:00: (four) [place] %) 00 hours as Medical nebulizer needed for Bran ch solution Wheezing or Shortness of Breath. meclizine Yes [id number] 25mg Take 1 U nivers 25 mg 3-21 tablet by ity of tablet 00:00: mouth 3 [place] 00 (three) Medical times Branch daily as needed for Dizziness. glecaprevir 2020- Yes [id number] 3{tbl} Take 3 [facility] -pibrentasv 3-21 tablets by it y of ir 00:00: mouth [place] (MAVYRET) 00 daily. Medical 100-40 mg Branch buPROPion 2020-0 Yes [id number] 150mg Take 1 [facility] SR 3-21 tablet by ity of (WELLBUTRIN 00:00: mouth [place] SR) 150 mg 00 daily. Medical SR tablet Branch benzoyl Yes [id number] Apply to U nivers peroxide 3-21 area(s) 2 ity of (ACNE 00:00: (two) [place] FOAMING 00 times Medical WASH) 10 % daily. Branch external wash albuterol Yes [id number] 2{puff} Inhale 2 [facility] 90 3-21 Puffs ity of mcg/actuati 00:00: every 4 [place] as on inhaler 00 (four) Medical hours as Branch needed for Wheezing or Shortness of Breath. albuterol Yes [id number] 2.5mg Inhale 3 [facility] 2.5 mg /3 3-21 mL every 4 ity of mL (0.083 00:00: (four) [place] %) 00 hours as Medical nebulizer needed for Bran ch solution Wheezing or Shortness of Breath. meclizine Yes [id number] 25mg Take 1 U nivers 25 mg 3-21 tablet by ity of tablet 00:00: mouth 3 [place] 00 (three) Medical times Branch daily as needed for Dizziness. glecaprevir Yes [id number] 3{tbl} Take 3 [facility] -pibrentasv 3-21 tablets by it y of ir 00:00: mouth [place] (MAVYRET) 00 daily. Medical 100-40 mg Branch buPROPion 2020-0 Yes [id number] 150mg Take 1 [facility] SR 3-21 tablet by ity of (WELLBUTRIN 00:00: mouth [place] SR) 150 mg 00 daily. Medical SR tablet Branch benzoyl 0 Yes [id number] Apply to U nivers peroxide 3-21 area(s) 2 ity of (ACNE 00:00: (two) [place] FOAMING 00 times Medical WASH) 10 % daily. Branch external wash albuterol Yes [id number] 2{puff} Inhale 2 [facility] 90 3-21 Puffs ity of mcg/actuati 00:00: every 4 [place] as on inhaler 00 (four) Medical hours as Branch needed for Wheezing or Shortness of Breath. albuterol Yes [id number] 2.5mg Inhale 3 [facility] 2.5 mg /3 3-21 mL every 4 ity of mL (0.083 00:00: (four) [place] %) 00 hours as Medical nebulizer needed for Bran ch solution Wheezing or Shortness of Breath. meclizine Yes [id number] 25mg Take 1 U nivers 25 mg 3-21 tablet by ity of tablet 00:00: mouth 3 [place] 00 (three) Medical times Branch daily as needed for Dizziness. glecaprevir Yes [id number] 3{tbl} Take 3 [facility] -pibrentasv 3-21 tablets by it y of ir 00:00: mouth [place] (MAVYRET) 00 daily. Medical 100-40 mg Branch buPROPion Yes [id number] 150mg Take 1 [facility] SR 3-21 tablet by ity of (WELLBUTRIN 00:00: mouth [place] SR) 150 mg 00 daily. Medical SR tablet Branch benzoyl Yes [id number] Apply to U nivers peroxide 3-21 area(s) 2 ity of (ACNE 00:00: (two) [place] FOAMING 00 times Medical WASH) 10 % daily. Branch external wash albuterol Yes [id number] 2{puff} Inhale 2 [facility] 90 3-21 Puffs ity of mcg/actuati 00:00: every 4 [place] as on inhaler 00 (four) Medical hours as Branch needed for Wheezing or Shortness of Breath. albuterol Yes [id number] 2.5mg Inhale 3 [facility] 2.5 mg /3 3-21 mL every 4 ity of mL (0.083 00:00: (four) [place] %) 00 hours as Medical nebulizer needed for Bran ch solution Wheezing or Shortness of Breath. meclizine Yes [id number] 25mg Take 1 U nivers 25 mg 3-21 tablet by ity of tablet 00:00: mouth 3 [place] 00 (three) Medical times Branch daily as needed for Dizziness. glecaprevir 2020- Yes [id number] 3{tbl} Take 3 [facility] -pibrentasv 3-21 tablets by it y of ir 00:00: mouth [place] (MAVYRET) 00 daily. Medical 100-40 mg Branch buPROPion 2020-0 Yes [id number] 150mg Take 1 [facility] SR 3-21 tablet by ity of (WELLBUTRIN 00:00: mouth [place] SR) 150 mg 00 daily. Medical SR tablet Branch benzoyl Yes [id number] Apply to U nivers peroxide 3-21 area(s) 2 ity of (ACNE 00:00: (two) [place] FOAMING 00 times Medical WASH) 10 % daily. Branch external wash albuterol Yes [id number] 2{puff} Inhale 2 [facility] 90 3-21 Puffs ity of mcg/actuati 00:00: every 4 [place] as on inhaler 00 (four) Medical hours as Branch needed for Wheezing or Shortness of Breath. albuterol Yes [id number] 2.5mg Inhale 3 [facility] 2.5 mg /3 3-21 mL every 4 ity of mL (0.083 00:00: (four) [place] %) 00 hours as Medical nebulizer needed for Bran ch solution Wheezing or Shortness of Breath. meclizine Yes [id number] 25mg Take 1 U nivers 25 mg 3-21 tablet by ity of tablet 00:00: mouth 3 [place] 00 (three) Medical times Branch daily as needed for Dizziness. glecaprevir Yes [id number] 3{tbl} Take 3 [facility] -pibrentasv 3-21 tablets by it y of ir 00:00: mouth [place] (MAVYRET) 00 daily. Medical 100-40 mg Branch buPROPion 2020-0 Yes [id number] 150mg Take 1 [facility] SR 3-21 tablet by ity of (WELLBUTRIN 00:00: mouth [place] SR) 150 mg 00 daily. Medical SR tablet Branch benzoyl 0 Yes [id number] Apply to U nivers peroxide 3-21 area(s) 2 ity of (ACNE 00:00: (two) [place] FOAMING 00 times Medical WASH) 10 % daily. Branch external wash albuterol Yes [id number] 2{puff} Inhale 2 [facility] 90 3-21 Puffs ity of mcg/actuati 00:00: every 4 [place] as on inhaler 00 (four) Medical hours as Branch needed for Wheezing or Shortness of Breath. albuterol Yes [id number] 2.5mg Inhale 3 [facility] 2.5 mg /3 3-21 mL every 4 ity of mL (0.083 00:00: (four) [place] %) 00 hours as Medical nebulizer needed for Bran ch solution Wheezing or Shortness of Breath. meclizine Yes [id number] 25mg Take 1 U nivers 25 mg 3-21 tablet by ity of tablet 00:00: mouth 3 [place] 00 (three) Medical times Branch daily as needed for Dizziness. glecaprevir Yes [id number] 3{tbl} Take 3 [facility] -pibrentasv 3-21 tablets by it y of ir 00:00: mouth [place] (MAVYRET) 00 daily. Medical 100-40 mg Branch buPROPion Yes [id number] 150mg Take 1 [facility] SR 3-21 tablet by ity of (WELLBUTRIN 00:00: mouth [place] SR) 150 mg 00 daily. Medical SR tablet Branch benzoyl Yes [id number] Apply to U nivers peroxide 3-21 area(s) 2 ity of (ACNE 00:00: (two) [place] FOAMING 00 times Medical WASH) 10 % daily. Branch external wash albuterol Yes [id number] 2{puff} Inhale 2 [facility] 90 3-21 Puffs ity of mcg/actuati 00:00: every 4 [place] as on inhaler 00 (four) Medical hours as Branch needed for Wheezing or Shortness of Breath. albuterol Yes [id number] 2.5mg Inhale 3 [facility] 2.5 mg /3 3-21 mL every 4 ity of mL (0.083 00:00: (four) [place] %) 00 hours as Medical nebulizer needed for Bran ch solution Wheezing or Shortness of Breath. meclizine Yes [id number] 25mg Take 1 U nivers 25 mg 3-21 tablet by ity of tablet 00:00: mouth 3 [place] 00 (three) Medical times Branch daily as needed for Dizziness. glecaprevir 2020-0 Yes [id number] 3{tbl} Take 3 [facility] -pibrentasv 3-21 tablets by it y of ir 00:00: mouth [place] (MAVYRET) 00 daily. Medical 100-40 mg Branch buPROPion 2020-0 Yes [id number] 150mg Take 1 [facility] SR 3-21 tablet by ity of (WELLBUTRIN 00:00: mouth [place] SR) 150 mg 00 daily. Medical SR tablet Branch benzoyl Yes [id number] Apply to U nivers peroxide 3-21 area(s) 2 ity of (ACNE 00:00: (two) [place] FOAMING 00 times Medical WASH) 10 % daily. Branch external wash albuterol Yes [id number] 2{puff} Inhale 2 [facility] 90 3-21 Puffs ity of mcg/actuati 00:00: every 4 [place] as on inhaler 00 (four) Medical hours as Branch needed for Wheezing or Shortness of Breath. albuterol Yes [id number] 2.5mg Inhale 3 [facility] 2.5 mg /3 3-21 mL every 4 ity of mL (0.083 00:00: (four) [place] %) 00 hours as Medical nebulizer needed for Bran ch solution Wheezing or Shortness of Breath. meclizine 0 Yes [id number] 25mg Take 1 U nivers 25 mg 3-21 tablet by ity of tablet 00:00: mouth 3 [place] 00 (three) Medical times Branch daily as needed for Dizziness. glecaprevir 2020- Yes [id number] 3{tbl} Take 3 [facility] -pibrentasv 3-21 tablets by it y of ir 00:00: mouth [place] (MAVYRET) 00 daily. Medical 100-40 mg Branch buPROPion 2020-0 Yes [id number] 150mg Take 1 [facility] SR 3-21 tablet by ity of (WELLBUTRIN 00:00: mouth [place] SR) 150 mg 00 daily. Medical SR tablet Branch benzoyl 2020-0 Yes [id number] Apply to U nivers peroxide 3-21 area(s) 2 ity of (ACNE 00:00: (two) [place] FOAMING 00 times Medical WASH) 10 % daily. Branch external wash albuterol Yes [id number] 2{puff} Inhale 2 [facility] 90 3-21 Puffs ity of mcg/actuati 00:00: every 4 [place] as on inhaler 00 (four) Medical hours as Branch needed for Wheezing or Shortness of Breath. albuterol Yes [id number] 2.5mg Inhale 3 [facility] 2.5 mg /3 3-21 mL every 4 ity of mL (0.083 00:00: (four) [place] %) 00 hours as Medical nebulizer needed for Bran ch solution Wheezing or Shortness of Breath. meclizine Yes [id number] 25mg Take 1 U nivers 25 mg 3-21 tablet by ity of tablet 00:00: mouth 3 [place] 00 (three) Medical times Branch daily as needed for Dizziness. glecaprevir Yes [id number] 3{tbl} Take 3 [facility] -pibrentasv 3-21 tablets by it y of ir 00:00: mouth [place] (MAVYRET) 00 daily. Medical 100-40 mg Branch buPROPion Yes [id number] 150mg Take 1 [facility] SR 3-21 tablet by ity of (WELLBUTRIN 00:00: mouth [place] SR) 150 mg 00 daily. Medical SR tablet Branch benzoyl Yes [id number] Apply to U nivers peroxide 3-21 area(s) 2 ity of (ACNE 00:00: (two) [place] FOAMING 00 times Medical WASH) 10 % daily. Branch external wash albuterol Yes [id number] 2{puff} Inhale 2 [facility] 90 3-21 Puffs ity of mcg/actuati 00:00: every 4 [place] as on inhaler 00 (four) Medical hours as Branch needed for Wheezing or Shortness of Breath. albuterol Yes [id number] 2.5mg Inhale 3 [facility] 2.5 mg /3 3-21 mL every 4 ity of mL (0.083 00:00: (four) [place] %) 00 hours as Medical nebulizer needed for Bran ch solution Wheezing or Shortness of Breath. meclizine Yes [id number] 25mg Take 1 U nivers 25 mg 3-21 tablet by ity of tablet 00:00: mouth 3 (three) Medical times Branch daily as needed for Dizziness. valACYclovi 2020-0 3- No [id number] 1g Take 1 [facility] r 1 gram -02-02 tablet by ity o f tablet 00:00: 00:00 mouth [place] 00 :00 daily. Medical Branch valACYclovi 2020-0 3- No [id number] 1g Take 1 [facility] r 1 gram 10-28 tablet by ity o f tablet 00:00: 00:00 mouth [place] 00 :00 daily. Medical Branch valACYclovi 2020-0 3- No [id number] 1g Take 1 [facility] r 1 gram 10-28 tablet by ity o f tablet 00:00: 00:00 mouth [place] 00 :00 daily. Medical Branch topiramate 2021-0 Yes 50mg Take 1 Unive [...] 2 (two) Medical times Branch daily. topiramate 2020-0 Yes 50mg Take 1 Unive rs 50 mg 3-18 tablet by ity of tablet 00:00: mouth 2 (two) Medical times Branch daily. topiramate 2020-0 Yes 50mg Take 1 Unive rs 50 mg 3-18 tablet by ity of tablet 00:00: mouth 2 (two) Medical times Branch daily. topiramate 2020-0 Yes 50mg Take 1 Unive rs 50 mg 3-18 tablet by ity of tablet 00:00: mouth 2 (two) Medical times Branch daily. topiramate 2020-0 Yes 50mg Take 1 Unive rs 50 mg 3-18 tablet by ity of tablet 00:00: mouth 2 [place] (two) Medical times Branch daily. topiramate 2020-0 Yes 50mg Take 1 Unive rs 50 mg 3-18 tablet by ity of tablet 00:00: mouth 2 [place] (two) Medical times Branch daily. topiramate 2020-0 Yes 50mg Take 1 Unive rs 50 mg 3-18 tablet by ity of tablet 00:00: mouth 2 [place] (two) Medical times Branch daily. doxepin 50 2020-0 Yes [id number] 50mg Take 1 Un anju mg capsule 1-08 capsule by ity of 00:00: mouth at [place] 00 bedtime. Medical Branch ipratropium 2020-0 Yes [id number] .5mg Inhale 2.5 [facility] 0.02 % 1-08 mL every 8 ity of nebulizer 00:00: (eight) [place] solution 00 hours as Medical needed for Branch Wheezing or Shortness of Breath. fluticasone 2020-0 Yes [id number] 1{puff} Inhale 1 [facility] propionate 1-08 Puff every ity of 110 00:00: 12 [place] mcg/actuati 00 (twelve) Medi norma on inhaler hours. Branch carBAMazepi 0 Yes [id number] 400mg Take 1 [facility] ne 400 mg 1-08 tablet by ity o f 12 hr 00:00: mouth 2 [place] tablet 00 (two) Medical times Branch daily. triamcinolo 2020-0 Yes [id number] Apply to [facility] ne 1-08 area(s) 2 ity of acetonide 00:00: (two) [place] 0.1 % cream 00 times Medical daily. Branch tretinoin 2020-0 Yes [id number] 1g Apply 1 g [facility] 0.075 % 1-08 to area(s) ity of Crea 00:00: at [place] 00 bedtime. Medical Branch doxepin 50 2020-0 Yes [id number] 50mg Take 1 Un anju mg capsule 1-08 capsule by ity of 00:00: mouth at [place] 00 bedtime. Medical Branch ipratropium 2020-0 Yes [id number] .5mg Inhale 2.5 [facility] 0.02 % 1-08 mL every 8 ity of nebulizer 00:00: (eight) [place] solution 00 hours as Medical needed for Branch Wheezing or Shortness of Breath. fluticasone 2020-0 Yes [id number] 1{puff} Inhale 1 [facility] propionate 1-08 Puff every ity of 110 00:00: 12 [place] mcg/actuati 00 (twelve) Medi norma on inhaler hours. Branch carBAMazepi 2020-0 Yes [id number] 400mg Take 1 [facility] ne 400 mg 1-08 tablet by ity o f 12 hr 00:00: mouth 2 [place] tablet 00 (two) Medical times Branch daily. triamcinolo 2020-0 Yes [id number] Apply to [facility] ne 1-08 area(s) 2 ity of acetonide 00:00: (two) [place] 0.1 % cream 00 times Medical daily. Branch tretinoin 2020-0 Yes [id number] 1g Apply 1 g [facility] 0.075 % 1-08 to area(s) ity of Crea 00:00: at [place] 00 bedtime. Medical Branch doxepin 50 2020-0 Yes [id number] 50mg Take 1 Un anju mg capsule 1-08 capsule by ity of 00:00: mouth at [place] 00 bedtime. Medical Branch ipratropium 2020-0 Yes [id number] .5mg Inhale 2.5 [facility] 0.02 % 1-08 mL every 8 ity of nebulizer 00:00: (eight) [place] solution 00 hours as Medical needed for Branch Wheezing or Shortness of Breath. fluticasone 2020-0 Yes [id number] 1{puff} Inhale 1 [facility] propionate 1-08 Puff every ity of 110 00:00: 12 [place] mcg/actuati 00 (twelve) Medi norma on inhaler hours. Branch carBAMazepi 2020-0 Yes [id number] 400mg Take 1 [facility] ne 400 mg 1-08 tablet by ity o f 12 hr 00:00: mouth 2 [place] tablet 00 (two) Medical times Branch daily. triamcinolo 2020-0 Yes [id number] Apply to [facility] ne 1-08 area(s) 2 ity of acetonide 00:00: (two) [place] 0.1 % cream 00 times Medical daily. Branch tretinoin 2020-0 Yes [id number] 1g Apply 1 g [facility] 0.075 % 1-08 to area(s) ity of Crea 00:00: at [place] 00 bedtime. Medical Branch doxepin 50 2020-0 Yes [id number] 50mg Take 1 Un anju mg capsule 1-08 capsule by ity of 00:00: mouth at [place] 00 bedtime. Medical Branch ipratropium 2020-0 Yes [id number] .5mg Inhale 2.5 [facility] 0.02 % 1-08 mL every 8 ity of nebulizer 00:00: (eight) [place] solution 00 hours as Medical needed for Branch Wheezing or Shortness of Breath. fluticasone 2020-0 Yes [id number] 1{puff} Inhale 1 [facility] propionate 1-08 Puff every ity of 110 00:00: 12 [place] mcg/actuati 00 (twelve) Medi norma on inhaler hours. Branch carBAMazepi 2020-0 Yes [id number] 400mg Take 1 [facility] ne 400 mg 1-08 tablet by ity o f 12 hr 00:00: mouth 2 [place] tablet 00 (two) Medical times Branch daily. triamcinolo 2020-0 Yes [id number] Apply to [facility] ne 1-08 area(s) 2 ity of acetonide 00:00: (two) [place] 0.1 % cream 00 times Medical daily. Branch tretinoin 2020-0 Yes [id number] 1g Apply 1 g [facility] 0.075 % 1-08 to area(s) ity of Crea 00:00: at [place] 00 bedtime. Medical Branch doxepin 50 2020-0 Yes [id number] 50mg Take 1 Un anju mg capsule 1-08 capsule by ity of 00:00: mouth at [place] 00 bedtime. Medical Branch ipratropium 202-0 Yes [id number] .5mg Inhale 2.5 [facility] 0.02 % 1-08 mL every 8 ity of nebulizer 00:00: (eight) [place] solution 00 hours as Medical needed for Branch Wheezing or Shortness of Breath. fluticasone 2020-0 Yes [id number] 1{puff} Inhale 1 [facility] propionate 1-08 Puff every ity of 110 00:00: 12 [place] mcg/actuati 00 (twelve) Medi norma on inhaler hours. Branch carBAMazepi 2020-0 Yes [id number] 400mg Take 1 [facility] ne 400 mg 1-08 tablet by ity o f 12 hr 00:00: mouth 2 [place] tablet 00 (two) Medical times Branch daily. triamcinolo 2020-0 Yes [id number] Apply to [facility] ne 1-08 area(s) 2 ity of acetonide 00:00: (two) [place] 0.1 % cream 00 times Medical daily. Branch tretinoin 2020-0 Yes [id number] 1g Apply 1 g [facility] 0.075 % 1-08 to area(s) ity of Crea 00:00: at [place] 00 bedtime. Medical Branch doxepin 50 2020-0 Yes [id number] 50mg Take 1 Un anju mg capsule 1-08 capsule by ity of 00:00: mouth at [place] 00 bedtime. Medical Branch ipratropium 2020-0 Yes [id number] .5mg Inhale 2.5 [facility] 0.02 % 1-08 mL every 8 ity of nebulizer 00:00: (eight) [place] solution 00 hours as Medical needed for Branch Wheezing or Shortness of Breath. fluticasone 2020-0 Yes [id number] 1{puff} Inhale 1 [facility] propionate 1-08 Puff every ity of 110 00:00: 12 [place] mcg/actuati 00 (twelve) Medi norma on inhaler hours. Branch carBAMazepi 2020-0 Yes [id number] 400mg Take 1 [facility] ne 400 mg 1-08 tablet by ity o f 12 hr 00:00: mouth 2 [place] tablet 00 (two) Medical times Branch daily. triamcinolo 2020-0 Yes [id number] Apply to [facility] ne 1-08 area(s) 2 ity of acetonide 00:00: (two) [place] 0.1 % cream 00 times Medical daily. Branch tretinoin 2020-0 Yes [id number] 1g Apply 1 g [facility] 0.075 % 1-08 to area(s) ity of Crea 00:00: at [place] 00 bedtime. Medical Branch doxepin 50 2020-0 Yes [id number] 50mg Take 1 Un anju mg capsule 1-08 capsule by ity of 00:00: mouth at [place] 00 bedtime. Medical Branch ipratropium 2020-0 Yes [id number] .5mg Inhale 2.5 [facility] 0.02 % 1-08 mL every 8 ity of nebulizer 00:00: (eight) [place] solution 00 hours as Medical needed for Branch Wheezing or Shortness of Breath. fluticasone 2020-0 Yes [id number] 1{puff} Inhale 1 [facility] propionate 1-08 Puff every ity of 110 00:00: 12 [place] mcg/actuati 00 (twelve) Medi norma on inhaler hours. Branch carBAMazepi 2020-0 Yes [id number] 400mg Take 1 [facility] ne 400 mg 1-08 tablet by ity o f 12 hr 00:00: mouth 2 [place] tablet 00 (two) Medical times Branch daily. triamcinolo 2020-0 Yes [id number] Apply to [facility] ne 1-08 area(s) 2 ity of acetonide 00:00: (two) [place] 0.1 % cream 00 times Medical daily. Branch tretinoin 2020-0 Yes [id number] 1g Apply 1 g [facility] 0.075 % 1-08 to area(s) ity of Crea 00:00: at [place] 00 bedtime. Medical Branch doxepin 50 2020-0 Yes [id number] 50mg Take 1 Un anju mg capsule 1-08 capsule by ity of 00:00: mouth at [place] 00 bedtime. Medical Branch ipratropium 2020-0 Yes [id number] .5mg Inhale 2.5 [facility] 0.02 % 1-08 mL every 8 ity of nebulizer 00:00: (eight) [place] solution 00 hours as Medical needed for Branch Wheezing or Shortness of Breath. fluticasone 2020-0 Yes [id number] 1{puff} Inhale 1 [facility] propionate 1-08 Puff every ity of 110 00:00: 12 [place] mcg/actuati 00 (twelve) Medi norma on inhaler hours. Branch carBAMazepi 2020-0 Yes [id number] 400mg Take 1 [facility] ne 400 mg 1-08 tablet by ity o f 12 hr 00:00: mouth 2 [place] tablet 00 (two) Medical times Branch daily. triamcinolo 2020-0 Yes [id number] Apply to [facility] ne 1-08 area(s) 2 ity of acetonide 00:00: (two) [place] 0.1 % cream 00 times Medical daily. Branch tretinoin 2020-0 Yes [id number] 1g Apply 1 g [facility] 0.075 % 1-08 to area(s) ity of Crea 00:00: at [place] 00 bedtime. Medical Branch doxepin 50 2020-0 Yes [id number] 50mg Take 1 Un anju mg capsule 1-08 capsule by ity of 00:00: mouth at [place] 00 bedtime. Medical Branch ipratropium 2020-0 Yes [id number] .5mg Inhale 2.5 [facility] 0.02 % 1-08 mL every 8 ity of nebulizer 00:00: (eight) [place] solution 00 hours as Medical needed for Branch Wheezing or Shortness of Breath. fluticasone 2020-0 Yes [id number] 1{puff} Inhale 1 [facility] propionate 1-08 Puff every ity of 110 00:00: 12 [place] mcg/actuati 00 (twelve) Medi norma on inhaler hours. Branch carBAMazepi 2020-0 Yes [id number] 400mg Take 1 [facility] ne 400 mg 1-08 tablet by ity o f 12 hr 00:00: mouth 2 [place] tablet 00 (two) Medical times Branch daily. triamcinolo 2020-0 Yes [id number] Apply to [facility] ne 1-08 area(s) 2 ity of acetonide 00:00: (two) [place] 0.1 % cream 00 times Medical daily. Branch tretinoin 2020-0 Yes [id number] 1g Apply 1 g [facility] 0.075 % 1-08 to area(s) ity of Crea 00:00: at [place] 00 bedtime. Medical Branch doxepin 50 2020-0 Yes [id number] 50mg Take 1 Un anju mg capsule 1-08 capsule by ity of 00:00: mouth at [place] 00 bedtime. Medical Branch ipratropium 2020-0 Yes [id number] .5mg Inhale 2.5 [facility] 0.02 % 1-08 mL every 8 ity of nebulizer 00:00: (eight) [place] solution 00 hours as Medical needed for Branch Wheezing or Shortness of Breath. fluticasone 2020-0 Yes [id number] 1{puff} Inhale 1 [facility] propionate 1-08 Puff every ity of 110 00:00: 12 [place] mcg/actuati 00 (twelve) Medi norma on inhaler hours. Branch carBAMazepi 2020-0 Yes [id number] 400mg Take 1 [facility] ne 400 mg 1-08 tablet by ity o f 12 hr 00:00: mouth 2 [place] tablet 00 (two) Medical times Branch daily. triamcinolo 2020-0 Yes [id number] Apply to [facility] ne 1-08 area(s) 2 ity of acetonide 00:00: (two) [place] 0.1 % cream 00 times Medical daily. Branch tretinoin 2020-0 Yes [id number] 1g Apply 1 g [facility] 0.075 % 1-08 to area(s) ity of Crea 00:00: at [place] 00 bedtime. Medical Branch doxepin 50 2020-0 Yes [id number] 50mg Take 1 Un anju mg capsule 1-08 capsule by ity of 00:00: mouth at [place] 00 bedtime. Medical Branch ipratropium 2020-0 Yes [id number] .5mg Inhale 2.5 [facility] 0.02 % 1-08 mL every 8 ity of nebulizer 00:00: (eight) [place] solution 00 hours as Medical needed for Branch Wheezing or Shortness of Breath. fluticasone 2020-0 Yes [id number] 1{puff} Inhale 1 [facility] propionate 1-08 Puff every ity of 110 00:00: 12 [place] mcg/actuati 00 (twelve) Medi norma on inhaler hours. Branch carBAMazepi 2020-0 Yes [id number] 400mg Take 1 [facility] ne 400 mg 1-08 tablet by ity o f 12 hr 00:00: mouth 2 [place] tablet 00 (two) Medical times Branch daily. triamcinolo 2020-0 Yes [id number] Apply to [facility] ne 1-08 area(s) 2 ity of acetonide 00:00: (two) [place] 0.1 % cream 00 times Medical daily. Branch tretinoin 2020-0 Yes [id number] 1g Apply 1 g [facility] 0.075 % 1-08 to area(s) ity of Crea 00:00: at [place] 00 bedtime. Medical Branch doxepin 50 2020-0 Yes [id number] 50mg Take 1 Un anju mg capsule 1-08 capsule by ity of 00:00: mouth at [place] 00 bedtime. Medical Branch ipratropium 2020-0 Yes [id number] .5mg Inhale 2.5 [facility] 0.02 % 1-08 mL every 8 ity of nebulizer 00:00: (eight) [place] solution 00 hours as Medical needed for Branch Wheezing or Shortness of Breath. fluticasone 2020-0 Yes [id number] 1{puff} Inhale 1 [facility] propionate 1-08 Puff every ity of 110 00:00: 12 [place] mcg/actuati 00 (twelve) Medi norma on inhaler hours. Branch carBAMazepi 2020-0 Yes [id number] 400mg Take 1 [facility] ne 400 mg 1-08 tablet by ity o f 12 hr 00:00: mouth 2 [place] tablet 00 (two) Medical times Branch daily. triamcinolo 2020-0 Yes [id number] Apply to [facility] ne 1-08 area(s) 2 ity of acetonide 00:00: (two) [place] 0.1 % cream 00 times Medical daily. Branch tretinoin 2020-0 Yes [id number] 1g Apply 1 g [facility] 0.075 % 1-08 to area(s) ity of Crea 00:00: at [place] 00 bedtime. Medical Branch doxepin 50 2020-0 Yes [id number] 50mg Take 1 Un anju mg capsule 1-08 capsule by ity of 00:00: mouth at [place] 00 bedtime. Medical Branch ipratropium 2020-0 Yes [id number] .5mg Inhale 2.5 [facility] 0.02 % 1-08 mL every 8 ity of nebulizer 00:00: (eight) [place] solution 00 hours as Medical needed for Branch Wheezing or Shortness of Breath. fluticasone 2020-0 Yes [id number] 1{puff} Inhale 1 [facility] propionate 1-08 Puff every ity of 110 00:00: 12 [place] mcg/actuati 00 (twelve) Medi norma on inhaler hours. Branch carBAMazepi 2020-0 Yes [id number] 400mg Take 1 [facility] ne 400 mg 1-08 tablet by ity o f 12 hr 00:00: mouth 2 [place] tablet 00 (two) Medical times Branch daily. triamcinolo 2020-0 Yes [id number] Apply to [facility] ne 1-08 area(s) 2 ity of acetonide 00:00: (two) [place] 0.1 % cream 00 times Medical daily. Branch tretinoin 2020-0 Yes [id number] 1g Apply 1 g [facility] 0.075 % 1-08 to area(s) ity of Crea 00:00: at [place] 00 bedtime. Medical Branch doxepin 50 2020-0 Yes [id number] 50mg Take 1 Un anju mg capsule 1-08 capsule by ity of 00:00: mouth at [place] 00 bedtime. Medical Branch ipratropium 2020-0 Yes [id number] .5mg Inhale 2.5 [facility] 0.02 % 1-08 mL every 8 ity of nebulizer 00:00: (eight) [place] solution 00 hours as Medical needed for Branch Wheezing or Shortness of Breath. fluticasone 2020-0 Yes [id number] 1{puff} Inhale 1 [facility] propionate 1-08 Puff every ity of 110 00:00: 12 [place] mcg/actuati 00 (twelve) Medi norma on inhaler hours. Branch carBAMazepi 2020-0 Yes [id number] 400mg Take 1 [facility] ne 400 mg 1-08 tablet by ity o f 12 hr 00:00: mouth 2 [place] tablet 00 (two) Medical times Branch daily. triamcinolo 2020-0 Yes [id number] Apply to [facility] ne 1-08 area(s) 2 ity of acetonide 00:00: (two) [place] 0.1 % cream 00 times Medical daily. Branch tretinoin 2020-0 Yes [id number] 1g Apply 1 g [facility] 0.075 % 1-08 to area(s) ity of Crea 00:00: at [place] 00 bedtime. Medical Branch doxepin 50 2020-0 Yes [id number] 50mg Take 1 Un anju mg capsule 1-08 capsule by ity of 00:00: mouth at [place] 00 bedtime. Medical Branch ipratropium 2020-0 Yes [id number] .5mg Inhale 2.5 [facility] 0.02 % 1-08 mL every 8 ity of nebulizer 00:00: (eight) [place] solution 00 hours as Medical needed for Branch Wheezing or Shortness of Breath. fluticasone 2020-0 Yes [id number] 1{puff} Inhale 1 [facility] propionate 1-08 Puff every ity of 110 00:00: 12 [place] mcg/actuati 00 (twelve) Medi norma on inhaler hours. Branch carBAMazepi 2020-0 Yes [id number] 400mg Take 1 [facility] ne 400 mg 1-08 tablet by ity o f 12 hr 00:00: mouth 2 [place] tablet 00 (two) Medical times Branch daily. triamcinolo 2020-0 Yes [id number] Apply to [facility] ne 1-08 area(s) 2 ity of acetonide 00:00: (two) [place] 0.1 % cream 00 times Medical daily. Branch tretinoin 2020-0 Yes [id number] 1g Apply 1 g [facility] 0.075 % 1-08 to area(s) ity of Crea 00:00: at [place] 00 bedtime. Medical Branch doxepin 50 2020-0 Yes [id number] 50mg Take 1 Un anju mg capsule 1-08 capsule by ity of 00:00: mouth at [place] 00 bedtime. Medical Branch ipratropium 2020-0 Yes [id number] .5mg Inhale 2.5 [facility] 0.02 % 1-08 mL every 8 ity of nebulizer 00:00: (eight) [place] solution 00 hours as Medical needed for Branch Wheezing or Shortness of Breath. fluticasone 2020-0 Yes [id number] 1{puff} Inhale 1 [facility] propionate 1-08 Puff every ity of 110 00:00: 12 [place] mcg/actuati 00 (twelve) Medi norma on inhaler hours. Branch carBAMazepi 2020-0 Yes [id number] 400mg Take 1 [facility] ne 400 mg 1-08 tablet by ity o f 12 hr 00:00: mouth 2 [place] tablet 00 (two) Medical times Branch daily. triamcinolo 2020-0 Yes [id number] Apply to [facility] ne 1-08 area(s) 2 ity of acetonide 00:00: (two) [place] 0.1 % cream 00 times Medical daily. Branch tretinoin 2020-0 Yes [id number] 1g Apply 1 g [facility] 0.075 % 1-08 to area(s) ity of Crea 00:00: at [place] 00 bedtime. Medical Branch doxepin 50 2020-0 Yes [id number] 50mg Take 1 Un anju mg capsule 1-08 capsule by ity of 00:00: mouth at [place] 00 bedtime. Medical Branch ipratropium 1-0 Yes [id number] .5mg Inhale 2.5 [facility] 0.02 % 1-08 mL every 8 ity of nebulizer 00:00: (eight) [place] solution 00 hours as Medical needed for Branch Wheezing or Shortness of Breath. fluticasone 2020-0 Yes [id number] 1{puff} Inhale 1 [facility] propionate 1-08 Puff every ity of 110 00:00: 12 [place] mcg/actuati 00 (twelve) Medi norma on inhaler hours. Branch carBAMazepi 2020-0 Yes [id number] 400mg Take 1 [facility] ne 400 mg 1-08 tablet by ity o f 12 hr 00:00: mouth 2 [place] tablet 00 (two) Medical times Branch daily. triamcinolo 2020-0 Yes [id number] Apply to [facility] ne 1-08 area(s) 2 ity of acetonide 00:00: (two) [place] 0.1 % cream 00 times Medical daily. Branch tretinoin 2020-0 Yes [id number] 1g Apply 1 g [facility] 0.075 % 1-08 to area(s) ity of Crea 00:00: at [place] 00 bedtime. Medical Branch doxepin 50 2020-0 Yes [id number] 50mg Take 1 Un anju mg capsule 1-08 capsule by ity of 00:00: mouth at [place] 00 bedtime. Medical Branch ipratropium 2020-0 Yes [id number] .5mg Inhale 2.5 [facility] 0.02 % 1-08 mL every 8 ity of nebulizer 00:00: (eight) [place] solution 00 hours as Medical needed for Branch Wheezing or Shortness of Breath. fluticasone 1-0 Yes [id number] 1{puff} Inhale 1 [facility] propionate 1-08 Puff every ity of 110 00:00: 12 [place] mcg/actuati 00 (twelve) Medi norma on inhaler hours. Branch carBAMazepi 2020-0 Yes [id number] 400mg Take 1 [facility] ne 400 mg 1-08 tablet by ity o f 12 hr 00:00: mouth 2 [place] tablet 00 (two) Medical times Branch daily. triamcinolo 1-0 Yes [id number] Apply to [facility] ne 1-08 area(s) 2 ity of acetonide 00:00: (two) [place] 0.1 % cream 00 times Medical daily. Branch tretinoin 2020-0 Yes [id number] 1g Apply 1 g [facility] 0.075 % 1-08 to area(s) ity of Crea 00:00: at [place] 00 bedtime. Medical Branch doxepin 50 2020-0 Yes [id number] 50mg Take 1 Un anju mg capsule 1-08 capsule by ity of 00:00: mouth at [place] 00 bedtime. Medical Branch ipratropium 2020-0 Yes [id number] .5mg Inhale 2.5 [facility] 0.02 % 1-08 mL every 8 ity of nebulizer 00:00: (eight) [place] solution 00 hours as Medical needed for Branch Wheezing or Shortness of Breath. fluticasone 2020-0 Yes [id number] 1{puff} Inhale 1 [facility] propionate 1-08 Puff every ity of 110 00:00: 12 [place] mcg/actuati 00 (twelve) Medi norma on inhaler hours. Branch carBAMazepi 2020-0 Yes [id number] 400mg Take 1 [facility] ne 400 mg 1-08 tablet by ity o f 12 hr 00:00: mouth 2 [place] tablet 00 (two) Medical times Branch daily. triamcinolo 2020-0 Yes [id number] Apply to [facility] ne 1-08 area(s) 2 ity of acetonide 00:00: (two) [place] 0.1 % cream 00 times Medical daily. Branch tretinoin 2020-0 Yes [id number] 1g Apply 1 g [facility] 0.075 % 1-08 to area(s) ity of Crea 00:00: at [place] 00 bedtime. Medical Branch doxepin 50 2020-0 Yes [id number] 50mg Take 1 Un anju mg capsule 1-08 capsule by ity of 00:00: mouth at [place] 00 bedtime. Medical Branch ipratropium 2020-0 Yes [id number] .5mg Inhale 2.5 [facility] 0.02 % 1-08 mL every 8 ity of nebulizer 00:00: (eight) [place] solution 00 hours as Medical needed for Branch Wheezing or Shortness of Breath. fluticasone 2020-0 Yes [id number] 1{puff} Inhale 1 [facility] propionate 1-08 Puff every ity of 110 00:00: 12 [place] mcg/actuati 00 (twelve) Medi norma on inhaler hours. Branch carBAMazepi 2020-0 Yes [id number] 400mg Take 1 [facility] ne 400 mg 1-08 tablet by ity o f 12 hr 00:00: mouth 2 [place] tablet 00 (two) Medical times Branch daily. triamcinolo 2020-0 Yes [id number] Apply to [facility] ne 1-08 area(s) 2 ity of acetonide 00:00: (two) [place] 0.1 % cream 00 times Medical daily. Branch tretinoin 2020-0 Yes [id number] 1g Apply 1 g [facility] 0.075 % 1-08 to area(s) ity of Crea 00:00: at [place] 00 bedtime. Medical Branch doxepin 50 2020-0 Yes [id number] 50mg Take 1 Un anju mg capsule 1-08 capsule by ity of 00:00: mouth at [place] 00 bedtime. Medical Branch ipratropium 2020-0 Yes [id number] .5mg Inhale 2.5 [facility] 0.02 % 1-08 mL every 8 ity of nebulizer 00:00: (eight) [place] solution 00 hours as Medical needed for Branch Wheezing or Shortness of Breath. fluticasone 2020-0 Yes [id number] 1{puff} Inhale 1 [facility] propionate 1-08 Puff every ity of 110 00:00: 12 [place] mcg/actuati 00 (twelve) Medi norma on inhaler hours. Branch carBAMazepi 2020-0 Yes [id number] 400mg Take 1 [facility] ne 400 mg 1-08 tablet by ity o f 12 hr 00:00: mouth 2 [place] tablet 00 (two) Medical times Branch daily. triamcinolo 2020-0 Yes [id number] Apply to [facility] ne 1-08 area(s) 2 ity of acetonide 00:00: (two) [place] 0.1 % cream 00 times Medical daily. Branch tretinoin 2020-0 Yes [id number] 1g Apply 1 g [facility] 0.075 % 1-08 to area(s) ity of Crea 00:00: at [place] 00 bedtime. Medical Branch doxepin 50 2020-0 Yes [id number] 50mg Take 1 Un anju mg capsule 1-08 capsule by ity of 00:00: mouth at [place] 00 bedtime. Medical Branch ipratropium 2020-0 Yes [id number] .5mg Inhale 2.5 [facility] 0.02 % 1-08 mL every 8 ity of nebulizer 00:00: (eight) [place] solution 00 hours as Medical needed for Branch Wheezing or Shortness of Breath. fluticasone 2020-0 Yes [id number] 1{puff} Inhale 1 [facility] propionate 1-08 Puff every ity of 110 00:00: 12 [place] mcg/actuati 00 (twelve) Medi norma on inhaler hours. Branch carBAMazepi 2020-0 Yes [id number] 400mg Take 1 [facility] ne 400 mg 1-08 tablet by ity o f 12 hr 00:00: mouth 2 [place] tablet 00 (two) Medical times Branch daily. triamcinolo 2020-0 Yes [id number] Apply to [facility] ne 1-08 area(s) 2 ity of acetonide 00:00: (two) [place] 0.1 % cream 00 times Medical daily. Branch tretinoin 2020-0 Yes [id number] 1g Apply 1 g [facility] 0.075 % 1-08 to area(s) ity of Crea 00:00: at [place] 00 bedtime. Medical Branch doxepin 50 2020-0 Yes [id number] 50mg Take 1 Un anju mg capsule 1-08 capsule by ity of 00:00: mouth at [place] 00 bedtime. Medical Branch ipratropium 2020-0 Yes [id number] .5mg Inhale 2.5 [facility] 0.02 % 1-08 mL every 8 ity of nebulizer 00:00: (eight) [place] solution 00 hours as Medical needed for Branch Wheezing or Shortness of Breath. fluticasone 1-0 Yes [id number] 1{puff} Inhale 1 [facility] propionate 1-08 Puff every ity of 110 00:00: 12 [place] mcg/actuati 00 (twelve) Medi norma on inhaler hours. Branch carBAMazepi 2020-0 Yes [id number] 400mg Take 1 [facility] ne 400 mg 1-08 tablet by ity o f 12 hr 00:00: mouth 2 [place] tablet 00 (two) Medical times Branch daily. triamcinolo 2020-0 Yes [id number] Apply to [facility] ne 1-08 area(s) 2 ity of acetonide 00:00: (two) [place] 0.1 % cream 00 times Medical daily. Branch tretinoin 2020-0 Yes [id number] 1g Apply 1 g [facility] 0.075 % 1-08 to area(s) ity of Crea 00:00: at [place] 00 bedtime. Medical Branch doxepin 50 2020-0 Yes [id number] 50mg Take 1 Un anju mg capsule 1-08 capsule by ity of 00:00: mouth at [place] 00 bedtime. Medical Branch ipratropium 2020-0 Yes [id number] .5mg Inhale 2.5 [facility] 0.02 % 1-08 mL every 8 ity of nebulizer 00:00: (eight) [place] solution 00 hours as Medical needed for Branch Wheezing or Shortness of Breath. fluticasone 2020-0 Yes [id number] 1{puff} Inhale 1 [facility] propionate 1-08 Puff every ity of 110 00:00: 12 [place] mcg/actuati 00 (twelve) Medi norma on inhaler hours. Branch carBAMazepi 2020-0 Yes [id number] 400mg Take 1 [facility] ne 400 mg 1-08 tablet by ity o f 12 hr 00:00: mouth 2 [place] tablet 00 (two) Medical times Branch daily. triamcinolo 2020-0 Yes [id number] Apply to [facility] ne 1-08 area(s) 2 ity of acetonide 00:00: (two) [place] 0.1 % cream 00 times Medical daily. Branch tretinoin 2020-0 Yes [id number] 1g Apply 1 g [facility] 0.075 % 1-08 to area(s) ity of Crea 00:00: at [place] 00 bedtime. Medical Branch doxepin 50 2020-0 Yes [id number] 50mg Take 1 Un anju mg capsule 1-08 capsule by ity of 00:00: mouth at [place] 00 bedtime. Medical Branch ipratropium 1-0 Yes [id number] .5mg Inhale 2.5 [facility] 0.02 % 1-08 mL every 8 ity of nebulizer 00:00: (eight) [place] solution 00 hours as Medical needed for Branch Wheezing or Shortness of Breath. fluticasone 2020-0 Yes [id number] 1{puff} Inhale 1 [facility] propionate 1-08 Puff every ity of 110 00:00: 12 [place] mcg/actuati 00 (twelve) Medi norma on inhaler hours. Branch carBAMazepi 2020-0 Yes [id number] 400mg Take 1 [facility] ne 400 mg 1-08 tablet by ity o f 12 hr 00:00: mouth 2 [place] tablet 00 (two) Medical times Branch daily. triamcinolo 2020-0 Yes [id number] Apply to [facility] ne 1-08 area(s) 2 ity of acetonide 00:00: (two) [place] 0.1 % cream 00 times Medical daily. Branch tretinoin 2020-0 Yes [id number] 1g Apply 1 g [facility] 0.075 % 1-08 to area(s) ity of Crea 00:00: at [place] 00 bedtime. Medical Branch doxepin 50 2020-0 Yes [id number] 50mg Take 1 Un anju mg capsule 1-08 capsule by ity of 00:00: mouth at [place] 00 bedtime. Medical Branch ipratropium 2020-0 Yes [id number] .5mg Inhale 2.5 [facility] 0.02 % 1-08 mL every 8 ity of nebulizer 00:00: (eight) [place] solution 00 hours as Medical needed for Branch Wheezing or Shortness of Breath. fluticasone 2020-0 Yes [id number] 1{puff} Inhale 1 [facility] propionate 1-08 Puff every ity of 110 00:00: 12 [place] mcg/actuati 00 (twelve) Medi norma on inhaler hours. Branch carBAMazepi 2020-0 Yes [id number] 400mg Take 1 [facility] ne 400 mg 1-08 tablet by ity o f 12 hr 00:00: mouth 2 [place] tablet 00 (two) Medical times Branch daily. triamcinolo 2020-0 Yes [id number] Apply to [facility] ne 1-08 area(s) 2 ity of acetonide 00:00: (two) [place] 0.1 % cream 00 times Medical daily. Branch tretinoin 0 Yes [id number] 1g Apply 1 g [facility] 0.075 % 1-08 to area(s) ity of Crea 00:00: at [place] 00 bedtime. Medical Branch Immunizations Ordered Filled Immunization Date Status Comments [facility] e Immunization Name Name SARS-COV-2 COVID-19 2022-01-23 [...] YRS 00:00:00 [place] [facility] ical VACCINE Branch Vital Signs Vital Name Observation Time Observation Value Comments Source Systolic blood 2023-03-20 21:26:00 115 mm[Hg] Univer sity of pressure [place] [facility] Diastolic blood 2023-03-20 21:26:00 78 mm[Hg] Unive rsity of pressure [facility] Heart rate 2023-03-20 21:26:00 86 /min [facility] Body temperature 2023-03-20 21:26:00 37.17 Jodi [facility] Respiratory rate 2023-03-20 21:26:00 20 /min [facility] Body weight 2023-03-20 21:26:00 109.861 kg [facility] BMI 2023-03-20 21:26:00 39.69 kg/m2 [facility] Oxygen saturation in 2023-03-20 21:26:00 96 /min [facility] Arterial blood by [facility] Pulse oximetry Branch Systolic blood 2023-02-02 20:17:00 134 mm[Hg] Univer sity of pressure [facility] Diastolic blood 2023-02-02 20:17:00 85 mm[Hg] Unive rsity of pressure [facility] Heart rate 2023-02-02 20:17:00 73 /min [facility] Body temperature 2023-02-02 20:17:00 36.89 Jodi [facility] [place] [facility] Respiratory rate 2023-02-02 20:17:00 18 /min [facility] [place] [facility] Body height 2023-02-02 20:17:00 166.4 cm [facility] [place] [facility] Body weight 2023-02-02 20:17:00 109.77 kg [facility] [place] [facility] BMI 2023-02-02 20:17:00 39.66 kg/m2 [facility] [place] [facility] Systolic blood 2022-08-05 00:16:00 126 mm[Hg] Univer sity of pressure [place] [facility] Diastolic blood 2022-08-05 00:16:00 85 mm[Hg] Unive rsity of pressure [facility] Heart rate 2022-08-05 00:16:00 98 /min [facility] [place] [facility] Body temperature 2022-08-05 00:16:00 37.28 Jodi [facility] ers[facility] of [facility] Respiratory rate 2022-08-05 00:16:00 20 /min [facility] [place] [facility] Body height 2022-08-05 00:16:00 167.6 cm [facility] [place] [facility] Body weight 2022-08-05 00:16:00 99.791 kg [facility] [place] [facility] BMI 2022-08-05 00:16:00 35.51 kg/m2 Universi ty of [facility] Oxygen saturation in 2022-08-05 00:16:00 100 /min [facility] Arterial blood by [facility] Pulse oximetry Branch Systolic blood 2022-05-12 14:38:00 153 mm[Hg] Univer sity of pressure [place] [facility] Diastolic blood 2022-05-12 14:38:00 102 mm[Hg] Unive rsity of pressure [place] [facility] Heart rate 2022-05-12 14:38:00 79 /min [facility] ty of [facility] Body temperature 2022-05-12 14:38:00 36.17 Jodi [facility] ersity of [facility] Respiratory rate 2022-05-12 14:38:00 18 /min Univ ersity of [facility] Body weight 2022-05-12 14:38:00 97.523 kg [facility] [place] [facility] BMI 2022-05-12 14:38:00 34.70 kg/m2 [facility] [place] [facility] Oxygen saturation in 2022-05-12 14:38:00 100 /min [facility] of Arterial blood by [facility] norma Pulse oximetry Branch Systolic blood 2022-03-24 14:09:00 145 mm[Hg] Univer sity of [facility] Diastolic blood 2022-03-24 14:09:00 108 mm[Hg] Unive rsity of [facility] Heart rate 2022-03-24 14:09:00 90 /min [facility] Body temperature 2022-03-24 14:09:00 37.28 Jodi [facility] Respiratory rate 2022-03-24 14:09:00 14 /min [facility] Body height 2022-03-24 14:09:00 167.6 cm [facility] Body weight 2022-03-24 14:09:00 95.255 kg [facility] BMI 2022-03-24 14:09:00 33.89 kg/m2 [facility] [place] [facility] Oxygen saturation in 2022-03-24 14:09:00 100 /min University of Arterial blood by [facility] Pulse oximetry Branch Systolic blood 2022-02-18 02:00:00 147 mm[Hg] Univer sity of pressure [facility] Diastolic blood 2022-02-18 02:00:00 95 mm[Hg] Unive rsity of [facility] Heart rate 2022-02-18 02:00:00 78 /min [facility] Respiratory rate 2022-02-18 02:00:00 18 /min Univ [facility] Oxygen saturation in 2022-02-18 02:00:00 99 /min University of Arterial blood by [facility] norma Pulse oximetry Branch Body temperature 2022-02-17 23:30:00 37.06 Jodi [facility] Body weight 2022-02-17 23:30:00 98.158 kg [facility] BMI 2022-02-17 23:30:00 34.93 kg/m2 [facility] Systolic blood 2022-02-17 23:10:00 146 mm[Hg] Univer [facility]ity of [facility] Diastolic blood 2022-02-17 23:10:00 101 mm[Hg] Unive rsity of pressure [facility] Heart rate 2022-02-17 23:10:00 67 /min [facility] Body temperature 2022-02-17 23:10:00 37.56 Jodi [facility] Respiratory rate 2022-02-17 23:10:00 18 /min Univ [facility] Body height 2022-02-17 23:10:00 167.6 cm [facility] [place] [facility] Body weight 2022-02-17 23:10:00 95.255 kg [facility] BMI 2022-02-17 23:10:00 33.89 kg/m2 [facility] Oxygen saturation in 2022-02-17 23:10:00 100 /min University of Arterial blood by [place] [facility] norma Pulse oximetry Branch Systolic blood 2022-01-26 18:37:00 120 mm[Hg] Univer sity of [facility] Diastolic blood 2022-01-26 18:37:00 77 mm[Hg] Unive rsity of pressure [facility] Heart rate 2022-01-26 18:36:00 88 /min [facility] Body temperature 2022-01-26 18:36:00 36.67 Jodi [facility] Respiratory rate 2022-01-26 18:36:00 18 /min Univ [facility] Body height 2022-01-26 18:36:00 165.1 cm [facility] Body weight 2022-01-26 18:36:00 96.616 kg [facility] [place] [facility] BMI 2022-01-26 18:36:00 35.45 kg/m2 [facility] Oxygen saturation in 2022-01-26 18:36:00 100 /min University of Arterial blood by [place] [facility] norma Pulse oximetry Branch Systolic blood 2021-11-24 09:19:00 125 mm[Hg] Univer sity of [facility] Diastolic blood 2021-11-24 09:19:00 81 mm[Hg] Unive rsity of [facility] Heart rate 2021-11-24 09:19:00 67 /min [facility] Respiratory rate 2021-11-24 09:19:00 19 /min [facility] Oxygen saturation in 2021-11-24 09:19:00 99 /min [facility] Arterial blood by [facility] Pulse oximetry Branch Body temperature 2021-11-24 03:00:00 36.78 Jodi [facility] Body height 2021-11-24 03:00:00 165.1 cm [facility] Body weight 2021-11-24 03:00:00 97.523 kg [facility] BMI 2021-11-24 03:00:00 35.78 kg/m2 [facility] Systolic blood 2021-11-21 21:13:00 127 mm[Hg] Univer sity of [facility] Diastolic blood 2021-11-21 21:13:00 91 mm[Hg] [facility] Heart rate 2021-11-21 20:50:00 81 /min [facility] Body temperature 2021-11-21 20:50:00 37 Jodi [facility] Respiratory rate 2021-11-21 20:50:00 18 /min [facility] Body height 2021-11-21 20:50:00 165.1 cm [facility] Body weight 2021-11-21 20:50:00 97.523 kg [facility] BMI 2021-11-21 20:50:00 35.78 kg/m2 [facility] Procedures Procedure Date / Time Performed Performing Clinician Sourc e POCT SARS-COV-2 2023-03-20 21:30:00 Sera Worthy [place] ANTIGEN (BINAX NOW) Medical Bran ch ASSIGNMENT OF BENEFITS 2023-02-02 20:09:30 Doctor Unassigned, No [facility] POCT TEST 2023-02-02 00:00:00 Frannie Smith [facility] XR HAND 3+ VW LEFT 2022-08-05 00:55:28 Nii Bonilla juliana [facility] CONSENT/REFUSAL FOR 2022-08-04 23:55:33 Doctor Unassigned, No Un [facility] [place] DIAGNOSIS AND Name Medical Branch TREATMENT XR FINGERS 2 VW LEFT 2022-05-12 15:57:11 Ciarra Frank [facility] XR WRIST 3+ VW LEFT 2022-05-12 15:57:11 Ciarra Frank [facility] CONSENT/REFUSAL FOR 2022-05-12 14:32:26 Doctor Unassigned, No Un [facility] [place] DIAGNOSIS AND Name Medical Branch TREATMENT CONSENT/REFUSAL FOR 2022-03-24 14:06:23 Doctor Unassigned, No Un [facility] [place] DIAGNOSIS AND Name Medical Branch TREATMENT US PELVIS COMPLETE 2022-02-18 01:07:39 [facility] NON-OB [facility] Branch CT ABDOMEN PELVIS W 2022-02-18 00:35:[address] [facility] CONTRAST [facility] POCT TEST 2022-02-18 00:22:00 Natalie Almendarez [facility] TEST, SERUM 2022-02-18 00:21:00 Natalie Almendarez [facility] COMP. METABOLIC PANEL 2022-02-18 00:21:00 Natalie Almendarez [facility] ([id number]) [facility] CBC WITH DIFF 2022-02-18 00:21:00 Natalie Al[facility]arez [facility] URINALYSIS 2022-02-18 00:21:00 Natalie Almendarez [facility] CONSENT/REFUSAL FOR 2022-02-17 23:21:20 Doctor Unassigned, No [facility] [place] DIAGNOSIS AND Name Medical Branch TREATMENT SARS-COV-2 COVID-19 2022-01-23 19:36:51 Doctor Unassigned, No [facility] [place] VACCINE Name [facility] BOOSTER,0.25ML,IM (MODERNA) US OVARY TORSION 2021-11-24 08:01:43 Arianna Whitmore [facility] CT ABDOMEN PELVIS W 2021-11-24 04:24:09 Arianna Whitmore [facility] CONTRAST [facility] POCT TEST 2021-11-24 03:18:00 Arianna Whitmore Univers ity of [facility] LIPASE 2021-11-24 03:17:00 Arianna Whitmore [facility] COMP. METABOLIC PANEL 2021-11-24 03:17:00 Arianna Whitmore [facility] ([id number]) Medical [place] CBC WITH DIFF 2021-11-24 03:17:00 Arianna Whitmore [facility] URINALYSIS 2021-11-24 03:17:00 Arianna Whitmore [facility] NOTICE OF PRIVACY 2021-11-24 02:50:34 Doctor Unassigned, No Univ [facility] PRACTICES Name [facility] CONSENT/REFUSAL FOR 2021-11-24 02:50:13 Doctor Unassigned, No Un [facility] DIAGNOSIS AND Name Medical [place] TREATMENT Encounters Start End Encounter Admission Attending Care Care Encounter Source Date/Time Date/Time Type Type Clinicians Facility Department ID 2021-06-10 Emergency [facility] [id number] Univers 21:56:33 ity of [facility] 2021-06-10 Emergency [facility] [id number] Univers 11:43:59 ity of [facility] 2021-06-10 Emergency [facility] [id number] Univers 11:18:46 ity of [facility] 2021-06-10 Emergency [facility] [id number] Univers 09:58:36 ity of [facility] 2021-06-09 Emergency [facility] [id number] Univers 00:40:14 ity of [facility] 2021-06-08 Emergency [facility] [id number] Univers 04:28:04 ity of [facility] 2021-06-07 Emergency [facility] [id number] Univers 16:30:58 ity of [facility] 2021-06-06 Emergency [facility] [id number] Univers 17:46:29 ity [facility] 2023-04-29 2023-04-29 Outpatient R [facility] [id number] Univers 15:30:00 15:30:00 ity [facility] 2023-03-21 2023-03-21 Telephone Kimmy Prieto 1.2.840.114 [id number] Univers 00:00:00 00:00:00 ASHLEY 350.1.13.10 it y of [facility] 4.2.7.2.686 Kamran as [phone] [address] 2023-03-20 2023-03-20 Outpatient R DAVEHayes [facility] [id number] Univers 15:40:00 16:35:15 SERA juliana [facility] 2023-03-20 2023-03-20 Urgent Zaynab [facility] 1.2.840.114 [id number] Univers 15:40:00 16:35:15 Care Unknown, Attending HEALTH 350.1.13.10 ity [facility] 4.2.7.2.686 Kamran as EMILIO?BLEA [phone] [address] MEDICAL OFFICE BUILDING 2023-02-27 2023-02-27 Outpatient [facility] [id number] Univers 14:40:00 14:40:00 CHEIKH chritsyjuliana [facility] 2023-02-11 2023-02-11 Outpatient [facility] [id number] Univers 11:20:00 11:20:00 CHEIKH juliana [facility] 2023-02-04 2023-02-04 [facility] 1.2.840.114 [id number] Univers 00:00:00 00:00:00 Frannie OROZCO 350.1.13.10 i ty of [place] [phone] [facility] 0[address] [facility] 2023-02-03 2023-02-03 [facility] 1.2.841.260 [id number] Univers 00:00:00 00:00:00 Secure Msg Frannie OROZCO 350.1.13.10 ity of [facility] 4.2.7.2.[place] [phone] [facility] 134 [facility] 2023-02-03 2023-02-03 Patient Sarah [facility] 1.2.412.520 [id number] Univers 00:00:00 00:00:00 Secure Msg Frannie PAM 350.1.13.10 ity of [place] 4.2.7.2.[place] [phone] Ma dical NAL 134 [facility] 2023-02-02 2023-02-02 Workshop Manager Juan Pablo, Adc Lab Main [facility] 1.2.8 40.114 [id number] Univers 16:15:00 16:30:00 Visit Frannie Smith 350.1.13.10 ity of [place] 4.[place].2.[place] [phone] Ma dical NAL 353 [facility] 2023-02-02 2023-02-02 Office Sarah [facility] 1.2.584.058 [id number] Univers 15:45:00 16:15:00 Visit Frannie OROZCO 350.1.13.10 i ty of [place] 4.2.7.2.[place] [phone] Ma dical NAL 134 [facility] 2023-02-02 2023-02-02 Outpatient R SARAH [facility] [id number] Univers 15:45:00 16:02:01 FRANNIE isaacs [facility] 2023-02-02 2023-02-02 Orders Doctor EDWARD 1.2.840.114 [id number] Univers 00:00:00 00:00:00 Only Unassigned, ASHLEY 350.1.13.10 ity of [place] [facility] 4.2.7.2.686 Kamran as [phone] [address] 2023-01-07 2023-01-07 Outpatient R SARAH [facility] [id number] Univers 09:45:00 09:45:00 FRANNIE isaacs [facility] 2023-01-06 2023-01-06 Outpatient R MONTANA [facility] [id number] Univers 15:20:00 15:20:00 CHEIKH isaacs [facility] 2022-08-16 2022-08-16 Outpatient R DIEGO [facility] [id number] Univers 11:30:00 11:47:21 DENISE [facility] 2022-08-16 2022-08-16 Laboratory Only, Ang Db Test [facility] 1.2.8 40.114 [id number] Univers 11:30:00 11:45:00 Only Unknown, Attending HEALTH 350.1.13.10 ity arnold [place] 4.2.7.2.686 Kamran as EMILIO?BLEA [id number] Ma junior [address] MEDICAL OFFICE BUILDING 2022-08-04 2022-08-04 Emergency X AUFDERIDE [facility] ERT [id number] Univers 18:18:00 20:38:00 , NII [facility] 2022-08-04 2022-08-04 Emergency Aufderide [facility] 1.2.840.114 [id number] Univers 18:18:00 20:38:00 , Nii OROZCO 350.1.13.10 i ty of [place]2.7.2.[place] [id number] [address] 2022-05-12 2022-05-12 Emergency X ZAC, [facility] ERT [id number] Univers 09:39:00 12:15:00 [facility] 2022-05-12 2022-05-12 [facility] 1.2.648.652 [id number] Univers 09:39:00 12:15:00 Ciarra OROZCO 350.1.13.10 i ty of [place]2.7.2.[place] [id number] [address] 2022-04-29 2022-04-29 Outpatient Sona SMITH [facility] [id number] Univers 09:30:00 09:30:00 FRANNIE juliana [facility] 2022-04-23 2022-04-23 Outpatient Sona SMITH [facility] [id number] Univers 14:30:00 14:30:00 FRANNIE isaacs [facility] 2022-04-22 2022-04-22 Outpatient Sona SMITH [facility] [id number] Univers 11:15:00 11:15:00 FRANNIE juliana [facility] 2022-04-08 2022-04-08 Outpatient R STEWART, [facility] [id number] Univers 10:00:00 10:00:00 ADELINE [facility] 2022-04-03 2022-04-03 Outpatient R BROCKJESSIE, [facility] [id number] Univers 08:30:00 08:30:00 FRANNIE [facility] 2022-03-24 2022-03-24 Emergency X RISHABH, [facility] ERT [id number] Univers 09:13:00 09:37:00 LIZANDRO [facility] 2022-03-24 2022-03-24 Emergency [facility] ..840.114 [id number] Univers 09:13:00 09:37:00 Lizandro OROZCO 350.1.13.10 i ty of [place] 4.2.7.2.686 [facility] [id number] [address] 2022-02-21 2022-02-21 Outpatient [facility] [id number] Univers 00:00:00 00:00:00 BRTITANY [facility] 2022-02-20 2022-02-20 Outpatient R SEAN, [facility] [id number] Univers 15:30:00 15:30:00 AUGUSTO [facility] 2022-02-18 2022-02-18 Outpatient R BROCKJESSIE, [facility] [id number] Univers 14:30:00 14:30:00 [facility] 2022-02-17 2022-02-17 Emergency X [facility] ERT [id number] Univers 18:40:00 21:13:00 NATALIE [facility] 2022-02-17 2022-02-17 Emergency [facility] 1.2.169.825 [id number] Univers 18:40:00 21:13:00 Natalie OROZCO 350.1.13.10 i ty of [facility] 4.2.7.2.686 [facility] [id number] [address] 2022-02-17 2022-02-17 Nurse Nurse, Aurelio Flores [facility] 1.2.840.114 [id number] Univers 18:15:00 18:35:00 Visit Francis Bower 350.1.13.10 ity of [facility] 4.2.7.2.686 Kamran as EMILIO?BLEA [id number] [address] MEDICAL OFFICE [facility] 2022-02-17 2022-02-17 Outpatient R [facility] [id number] Univers 18:15:00 18:15:00 FRANCIS isaacs o [facility] 2022-01-28 2022-01-28 Outpatient R [facility] [id number] Univers 15:30:00 15:30:00 AUGUSTO ity [facility] 2022-01-27 2022-01-27 Letter EDWARD Kaur 1.2.840.114 [id number] Univers 00:00:00 00:00:00 (Out) Xochitl RAMIREZ 350.1.13.10 it y of HOSPITAL 4.2.7.2.686 Kamran as [id number] [address] 2022-01-26 2022-01-26 [facility] [id number] Univers 13:40:00 14:06:12 SHANNAN covarrubias [facility] 2022-01-26 2022-01-26 Urgent [facility] 1.2.840.114 [id number] Univers 13:40:00 14:06:12 Care Shannan Hunter [employer] 350.1.13.10 ity of [place] 4.2.7.2.686 Kamran as EMILIO?BLEA [id number] [address] MEDICAL OFFICE [facility] 2022-01-26 2022-01-26 Letter Provider, [facility] 1.2.076.512 [id number] Univers 00:00:00 00:00:00 (Out) Ang Db HEALTH 350.1.13.10 it y of Urgent Care [place] 4.2.7.2.686 [place] EMILIO?BLEA [phone] [address] MEDICAL OFFICE [facility] 2022-01-23 2022-01-23 Imm/Inj Vaccine, Ang Db Cbc [facility] 1. 2.840.114 [id number] Univers 14:00:00 14:10:00 Visit Dominic Peralta [facility] 350.1.13. 10 ity of [place] 4.2.7.2.686 Kamran as EMILIO?BLEA [id number] Ma junior [facility] [address] [place] MEDICAL OFFICE BUILDING 2022-01-23 2022-01-23 Outpatient R [facility] [id number] Univers 14:00:00 14:00:00 DOMINIC [facility] 2022-01-22 2022-01-22 Outpatient R JENNIEDEDENATALIAPRE[facility] [id number] Univers 14:40:00 14:40:00 CHEIKH [facility] 2021-12-27 2021-12-27 Outpatient R [facility] [id number] Univers 00:00:00 00:00:00 BRITTANY [facility] 2021-11-28 2021-11-28 Letter EDWARD Kaur 1.2.840.114 [id number] Univers 00:00:00 00:00:00 (Out) Xochitl Stanford KIANA 350.1.13.10 it y of [facility] 4.2.7.2.686 Kamran as [id number] [address] 2021-11-27 2021-11-27 Laboratory Only, Ang Db Test [facility] 1.2.8 40.114 [id number] Univers 15:15:00 15:30:00 Only TommyalfredSera garcia [facility] 350.1.13.10 ity of [place] 4.2.7.2.686 Kamran as EMILIO?BLEA [id number] Ma junior [facility] [address] [place] MEDICAL OFFICE [facility] 2021-11-27 2021-11-27 Outpatient R [facility]BPRE[facility] [id number] Univers 15:15:00 15:15:00 ISAIA [facility] 2021-11-23 2021-11-24 Emergency [facility] ERT [id number] Univers 22:04:00 04:27:00 ARIANNA [facility] 2021-11-23 2021-11-24 Emergency [facility] 1.2.567.647 [id number] Univers 22:04:00 04:27:00 Arianna Edwards [place] 350.1.13.10 ity of [place] 4.2.7.2.[place] [id number] [place] 807764 [place] 2021-11-21 2021-11-21 Office Adum, [facility] 1.2.840.114 [id number] Univers 15:30:00 16:15:19 Visit Brittany OROZCO 350.1.13.10 ity of [place] 4.2.7.2.[place] [id number] Ma dical NAL 134 [facility] 2021-11-21 2021-11-21 Outpatient R ADUM, [facility] [id number] Univers 15:30:00 16:15:19 BRITTANY ity [facility] 2021-11-21 2021-11-21 Outpatient R ADUM, [facility] [id number] Univers 15:30:00 15:30:00 BRITTANY ity [facility] 2021-11-21 2021-11-21 Letter [facility] 1.2.840.114 [id number] Univers 00:00:00 00:00:00 (Out) Brittany Nunez PAM 350.1.13.10 ity of [place] 4.[place].7.2.[place] [phone] Ma dic[address] 2021-11-06 2021-11-07 Outpatient X ADUM, [facility] [id number] Univers 07:15:00 09:35:00 BRITTANY ity [facility] 2021-11-06 2021-11-07 Emergency Micheal Mayer [facility] 1.2.840. 114 [id number] Univers 07:15:00 09:35:00 Adum, Brittany Nunez PAM 350.1.13.10 ity of [place] 4.2.7.2.[place] [id number] [place] 807763 [place] 2021-10-04 2021-10-04 Letter EDWARD Kaur 1.2.840.114 [id number] Univers 00:00:00 00:00:00 (Out) oXchitl RAMIREZ 350.1.13.10 it y of [facility] 4.2.7.2.686 Kamran as [id number] [facility] 019 [place] 2021-10-03 2021-10-03 Outpatient R KING ALEX [facility] [id number] Univers 17:20:00 18:22:13 GAMALIEL [facility] 2021-09-14 2021-09-14 Emergency [facility] [id number] Univers 20:00:00 20:59:00 CIARRA [facility] 2021-09-14 2021-09-14 Emergency [facility] 1.2.263.502 [id number] Univers 20:00:00 20:59:00 Ciarra S PAM 350.1.13.10 i ty of [place] 4.2.7.2.686 [place] [facility] [id number] [place] 807764 [place] 2021-09-09 2021-09-09 Emergency X Susana DANIELS [facility] ERT [id number] Univers 15:35:00 17:06:00 ity [facility] 2021-09-09 2021-09-09 Emergency Susana Daniels [facility] 1.2.840.114 [id number] Univers 15:35:00 17:06:00 Sarah OROZCO 350.1.13.10 i ty of [facility] 4.2.7.2.686 [facility] [phone] [place] [address]7764 [place] 2021-09-09 2021-09-09 Orders Doctor EDWARD 1.2.840.114 [id number] Univers 00:00:00 00:00:00 Only Unassigned, ASHLEY 350.1.13.10 ity of [place] [facility] 4.2.7.2.686 Kamran as [id number] [facility] 00[address] [place] 2021-08-27 2021-08-27 Laboratory Only, Ang Db Test [facility] 1.2.8 40.114 [id number] Univers 11:45:00 12:00:00 Only Shannan Steward [facility] 350.1.13.10 ity of [place] 4.2.7.2.686 Kamran as EMILIO?BLEA [id number] Ma junior [address] MEDICAL OFFICE BUILDING 2021-08-27 2021-08-27 Outpatient R BIN [facility] [id number] Univers 11:45:00 11:59:56 SHANNAN itjuliana o f [facility] 2021-08-27 2021-08-27 Letter Provider, [facility] 1.2.096.772 [id number] Univers 00:00:00 00:00:00 (Out) Urgent Care HEALTH 350.1.13.10 ity of Day [facility] 4.2.7.2.686 Kamran as EMILIO?BLEA [id number] [address] MEDICAL OFFICE [facility] 2021-08-19 2021-08-19 Outpatient R LISFRANCHESCAPREMI[facility] [id number] Univers 18:20:00 19:19:45 OMELIU ity [facility] 2021-08-19 2021-08-19 Urgent Jojo Minor [facility] 1.2.840. 114 [id number] Univers 18:20:00 18:40:00 Care Jose, Malena HEALTH 350.1.13.10 ity of [facility] 4.2.7.2.686 Kamran as EMILIO?BLEA [id number] [address] MEDICAL OFFICE [facility] 2021-08-19 2021-08-19 Orders Doctor EDWARD [id number] Univers 00:00:00 00:00:00 Only Unassigned, ASHLEY [id number] ity of [facility] [id number] Kamran as [phone] [address] 2021-08-01 2021-08-01 Urgent Tomasa William [facility] 1.2.840.114 [id number] Univers 10:20:00 10:40:00 Care Zaynab, Isaia HEALTH [id number] ity of [facility] [id number] Kamran as EMILIO?BLEA [phone] [address] MEDICAL OFFICE [facility] 2021-08-01 2021-08-01 Outpatient R ZAYNAB [facility] [id number] Univers 10:20:00 10:20:00 ISAIA ity [facility] 2021-06-27 2021-06-27 Outpatient R SARAH, [facility] [id number] Univers 09:00:00 09:00:00 FRANNIE juliana [facility] 2021-06-09 2021-06-09 Urgent Sera Worthy [facility] [id number] Univers 14:25:24 14:45:24 Care Stewart, Tomasa [facility] [id number] ity of [place] [id number] Kamran as EMILIO?BLEA [phone] [address] MEDICAL OFFICE [facility] 2021-06-09 2021-06-09 Outpatient R EBONYKHANHHayes [facility] [id number] Univers 14:40:00 14:40:00 SERA [facility] 2021-04-21 2021-04-21 Telephone EDWARD Coello [id number] Univers 00:00:00 00:00:00 Kaley RAMIREZ [id number] i ty of [facility] [id number] Kamran as [phone] [facility] [address] 2021-04-20 2021-04-20 Urgent [facility] 1.2.840.114 [id number] Univers 11:16:01 11:52:08 Care [facility] [id number] it y of [place] [id number] Kamran as Emilio?Blea [phone] [address] Office [facility] 2021-04-20 2021-04-20 Outpatient R STEWART [facility] [id number] Univers 11:20:00 11:20:00 TOMASA [facility] 2021-04-19 2021-04-19 [facility] [id number] Univers 18:56:00 19:59:00 Ciarra [place] 350.1.13.10 i ty of [place] [id number] [place] [facility] [phone] [address] 2021-04-12 2021-04-12 Outpatient R MONTANA [facility] [id number] Univers 15:00:00 15:00:00 CHEIKH juliana [facility] 2021-03-17 2021-03-17 Outpatient R YASEMINCHENG [facility] [id number] Univers 20:00:00 20:00:00 , TRUPTI isaacs [facility] 2021-01-30 2021-01-30 Outpatient Sona ESTRADA [facility] [id number] Univers 11:15:00 11:15:00 AUGUSTO juliana [facility] 2021-01-24 2021-01-24 Outpatient Sona SMITH [facility] [id number] Univers 08:00:00 08:00:00 FRANNIE juliana [facility] 2021-01-21 2021-01-21 Outpatient Sona SMITH [facility] [id number] Univers 10:00:00 10:00:00 [facility] 2021-01-17 2021-01-17 Outpatient Sona BOYLE [facility] [id number] Univers 16:00:00 16:00:00 CHEIKH juliana [facility] 2021-01-15 2021-01-15 Outpatient VIDYA INTERIANO [facility] [id number] Univers 09:20:00 09:20:00 VIDYA BUENO [facility] 2020-12-25 2020-12-25 Outpatient VIDYA INTERIANO [facility] [id number] Univers 10:40:00 10:40:00 VIDYA BUENO [facility] 2020-12-20 2020-12-20 Outpatient Sona BOYLE [facility] [id number] Univers 11:20:00 11:20:00 CHEIKH juliana [facility] 2020-12-18 2020-12-18 Outpatient Sona SMITH [facility] [id number] Univers 10:00:00 10:00:00 FRANNIE juliana [facility] 2020-12-10 2020-12-10 Outpatient Sona SMITH [facility] [id number] Univers 00:00:00 00:00:00 [facility] 2020-12-06 2020-12-06 Outpatient Sona ESTRADA [facility] [id number] Univers 15:30:00 15:30:00 AUGUSTO [facility] 2020-12-04 2020-12-04 Outpatient R SARAH [facility] [id number] Univers 09:45:00 09:45:00 FRANNIE juliana [facility] 2020-11-27 2020-11-27 Outpatient R ADRIÁN [facility] [id number] Univers 14:30:00 14:30:00 TORY juliana [facility] 2020-11-27 2020-11-27 Outpatient R SEAN [facility] [id number] Univers 09:00:00 09:00:00 AUGUSTO [facility] 2020-11-22 2020-11-22 Outpatient R MONTANA [facility] [id number] Univers 13:20:00 13:20:00 CHEIKH [facility] 2020-11-15 2020-11-15 Outpatient Sona ESTRADA [facility] [id number] Univers 13:30:00 13:30:00 AUGUSTO [facility] 2020-11-14 2020-11-14 Outpatient R YESENIA [facility] [id number] Univers 16:00:00 16:00:00 KEHINDE [facility] 2020-11-08 2020-11-08 Outpatient Sona ESTRADA [facility] [id number] Univers 11:00:00 11:00:00 [facility] 2020-10-17 2020-10-17 Outpatient R MONTANA [facility] [id number] Univers 16:20:00 16:20:00 CHEIKH [facility] 2020-10-17 2020-10-17 Outpatient R YESENIA [facility] [id number] Univers 16:00:00 16:00:00 KEHINDE [facility] 2020-10-15 2020-10-15 Outpatient R SARAH [facility] [id number] Univers 10:00:00 10:00:00 FRANNIE [facility] 2020-08-24 2020-08-24 Outpatient R [facility] [id number] Univers 17:20:00 17:20:00 [facility] 2020-08-06 2020-08-06 Outpatient R SARAH [facility] [id number] Univers 14:15:00 14:15:00 FRANNIE isaacs [facility] 2020-07-02 2020-07-02 Outpatient R SARAH [facility] [id number] Univers 10:45:00 10:45:00 FRANNIE isaacs [facility] 2020-06-22 2020-06-22 Outpatient R MONTANA [facility] [id number] Univers 11:20:00 11:20:00 CHEIKH isaacs [facility] 2020-06-18 2020-06-18 Outpatient R ANGELABRENT [facility] [id number] Univers 14:40:00 14:40:00 RAYOSOFIA isaacs [facility] 2020-06-15 2020-06-15 Outpatient R MONTANA [facility] [id number] Univers 10:00:00 10:00:00 CHEIKH isaacs [facility] 2020-05-18 2020-05-18 Outpatient R JENNIEDEDEMARISADANTE [facility] [id number] Univers 15:40:00 15:40:00 CHEIKH isaacs [facility] 2020-03-20 2020-03-20 Outpatient R MARCELO, [facility] [id number] Univers 14:00:00 14:00:00 IVAN ity [facility] 2020-03-13 2020-03-13 Outpatient R MONTANA [facility] [id number] Univers 10:40:00 10:40:00 CHEIKH isaacs [facility] 2020-03-02 2020-03-02 Outpatient R AGUSTO DARLING [facility] [id number] Univers 11:00:00 11:00:00 AGUSTO DARLING i ana [facility] 2020-02-29 2020-02-29 Outpatient R EDGEORGETTE [facility] [id number] Univers 10:00:00 10:00:00 CHEIKH isaacs [facility] 2020-02-27 2020-02-27 [facility] [id number] Univers 13:00:00 13:00:00 CHEIKH shital [facility] 2020-01-24 2020-01-24 Emergency X YARIMA, [facility] ERT [id number] Univers 07:37:42 12:12:00 [facility] 2020-01-11 Outpatient R ERNESTO [facility] [id number] Univers 13:00:00 13:00:00 NEAL juliana [facility] 2020-01-04 2020-01-04 Outpatient R ERNESTO [facility] [id number] Univers 14:30:00 [facility]:30[facility] 2020-01-03 Outpatient R ERNESTO [facility] [id number] Univers 14:00:00 14:00:00 [facility] 2019-12-20 2019-12-20 Outpatient R MARCELO [facility] [id number] Univers 14:00:00 14:00:00 IVAN [facility] 2019-12-15 2019-12-15 Outpatient R ESTER [facility] [id number] Univers 12:30:00 12:30:00 ANTONETTE [facility] 2019-12-12 2019-12-12 Outpatient R AGUSTO DARLING [facility] [id number] Univers 10:00:00 10:00:00 AGUSTO DARLING i ty [facility] 2019-12-09 2019-12-09 Outpatient R MONTANA [facility] [id number] Univers 14:20:00 14:20:00 CHEIKH [facility] 2019-12-02 2019-12-02 Outpatient R AGUSTO DARLING [facility] [id number] Univers 11:40:00 11:40:00 AGUTSO DARLING i ty of [facility] 2019-12-01 2019-12-01 Outpatient R MEME [facility] [id number] Univers 09:00:00 09:00:00 ALBA [facility] 2019-11-29 2019-11-29 Outpatient R MEME [facility] [id number] Univers 13:00:00 13:00:00 ALBA juliana [facility] 2019-11-15 2019-11-15 Outpatient R OROZCO [facility] [id number] Univers 09:45:00 09:45:00 NEAL isaacs [facility] 2019-11-11 2019-11-11 Outpatient R JENNIEGEORGETTE [facility] [id number] Univers 10:40:00 10:40:00 CHEIKH isaacs [facility] 2019-11-04 2019-11-04 Outpatient R MONTANA [facility] [id number] Univers 13:20:00 13:20:00 CHEIKH isaacs [facility] 2019-11-01 2019-11-01 Outpatient R JENNIEGEORGETTE [facility] [id number] Univers 10:00:00 10:00:00 CHEIKH isaacs [facility] 2019-10-28 2019-10-28 Outpatient R JENNIEGEORGETTE [facility] [id number] Univers 12:40:00 12:40:00 CHEIKH isaacs [facility] 2019-10-25 2019-10-25 Outpatient VIDYA INTERIANO [facility] [id number] Univers 11:20:00 11:20:00 VIDYA BUENO shital [facility] 2019-10-21 2019-10-21 Outpatient R AGUSTO DARLING [facility] [id number] Univers 13:00:00 13:00:00 AGUSTO DARLING i [facility] 2019-10-19 2019-10-19 Outpatient R MONTANA [facility] [id number] Univers 09:50:34 23:59:00 CHEIKH juliana [facility] 2019-10-17 2019-10-17 Emergency X KARLY, Susana [facility] ERT [id number] Univers 11:34:18 16:01:00 shital [facility] 2019-10-17 2019-10-17 Outpatient VIDYA INTERIANO [facility] [id number] Univers 11:20:00 11:20:00 VIDYA BUENOjuliana [facility] 2019-10-14 2019-10-14 Outpatient R SARAH [facility] [id number] Univers 11:00:00 11:00:00 FRANNIE shital [facility] 2019-10-12 2019-10-12 Outpatient R MONTANA [facility] [id number] Univers 15:40:00 15:40:00 CHEIKH juliana [facility] 2019-10-11 2019-10-11 Outpatient R SEAN, [facility] [id number] Univers 13:30:00 13:30:00 AUGUSTO [facility] 2019-10-06 2019-10-06 Outpatient R MONTANA [facility] [id number] Univers 15:40:00 15:40:00 CHEIKH juliana [facility] 2019-08-31 2019-09-06 [facility] 1.2.840.114 [id number] Univers 14:47:13 18:06:25 Visit Cheikh Pam 350.1.13.10 i ty of [id number] [phone] Ma dical nal 044 [facility] 2019-09-06 2019-09-06 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 2.840.114 [id number] Univers 13:53:00 14:53:00 Visit 2, Adc Cardio Fac [facility] 350.1. 13.10 ity of [place] 4.2.7.2.686 [place] Professio [phone] Ma dical nal 059 [facility] 2019-09-06 2019-09-06 Office Sarah [facility] [id number] Univers 08:52:38 09:16:32 Visit Frannie Orozco 350.1.13.10 i ty of [id number] [phone] Ma dical nal 134 [facility] 2019-09-01 2019-09-01 Emergency [place]ide [facility] 1.2.840.114 [id number] Univers 09:38:47 16:33:00 , Nii Orozco 350.1.13.10 i ty of [place] [id number] [place] [phone] [facility] norma [address] 2019-08-25 2019-08-25 Ancillary Melisa Perez [facility] 1 .2.840.114 [id number] Univers 13:03:52 15:25:05 Visit Kyle Ortiz 350.1.13.10 ity of [place] [id number] [place] [phone] Ma dical nal 179 [facility] 2019-08-25 2019-08-25 Telephone [facility] 1.2.840.114 [id number] Univers 00:00:00 00:00:00 Cheikh Orozco 350.1.13.10 i ty of [place] [id number] [phone] Ma dical nal 044 [facility] 2019-08-23 2019-08-23 Telephone [facility] [id number] Univers 00:00:00 00:00:00 Nicanor Orozco 350.1.13.10 ity of [place] 4.2.[place].2.[place] [phone] Ma dicnj nal 059 [facility] 2019-08-16 2019-08-16 Emergency X SINGER [facility] ERT [id number] Univers 06:57:53 09:44:00 MICHEAL christyy of [facility] 2019-04-22 2019-04-22 Office [facility] 1.2.840.114 [id number] Univers 09:04:40 09:52:08 Visit [facility] 350.1.13.10 it y of [place] 4.2.7.2.686 Kamran as Professio [phone] [facility] [address] Office [facility] 2019-04-22 2019-04-22 Orders Doctor LEON 1.2.840.114 [id number] Univers 00:00:00 00:00:00 Only Unassigned, ASHLEY 350.1.13.10 ity of [place] [facility] 4.2.7.2.686 Kamran as [phone] [facility] [address] 2019-04-11 2019-04-11 Emergency [facility] 1.2.840.114 [id number] Univers 09:18:53 09:57:00 Filomena Orozco 350.1.13.10 ity of [place] 4.2.7.2.686 [place] [phone] [facility] [address] 2019-04-11 2019-04-11 Orders Doctor LEON 1.2.840.114 [id number] Univers 00:00:00 00:00:00 Only Unassigned, ASHLEY 350.1.13.10 ity of [place] [facility] 4.2.7.2.686 Kamran as [phone] [address] Results Test Description Test Time Test Comments Results Result Comments Source POCT SARS-COV-2 ANTIGEN (BINAX NOW) 2023-03-20 21:30:00 Test Item Value Reference Range Interpretation Comme nts POCT SARS-COV-2 ANTIGEN (test code = 89863-2) Not Detected Not Dete cted On board controls acceptable with C Line (test code = Yes 3574) Lab Interpretation (test code = 82682-1) [id number] 20:54:00 Test Item Value Reference Range Interpretation Comments POCT PREG (test code = 1605) Negative On board controls acceptable with C Yes Line (test code = 3574) POCT PREG LOT # (test code = 3575) POCT PREG TEST DATE (test code = 3576) [facility], [id number] 01:04:20 Test Item Value Reference Range Interpretation Comments PREG SERUM (test code Negative = 2953523172) TYRON (test code = TYRON) Less than 10 IU/L. ?If low titer or ectopic is suspected, resubmit specimen in 48-72 hours. [facility]. METABOLIC PANEL (01592)2022-02-18 00:59:51 Test Item Value Reference Range Interpretation Comments NA (test code = 139 mmol/L 135-145 6951053022) K (test code = 4.2 mmol/L 3.5-5 6770244064) CL (test code = 104 mmol/L 98-108 0671616534) CO2 TOTAL (test code 27 mmol/L 23-31 = 9421736160) AGAP (test code = 2-16 0546110686) BUN (test code = 9 mg/dL 7-23 7221182444) GLUCOSE (test code = 95 mg/dL 70-110 4257531429) CREATININE (test code 0.78 mg/dL 0.5-1.04 = 2280539980) TOTAL BILI (test code 0.5 mg/dL 0.1-1.1 = 9265497707) CALCIUM (test code = 9.2 mg/dL 8.6-10.6 1750867165) T PROTEIN (test code 7.6 g/dL 6.3-8.2 = 1455191689) ALBUMIN (test code = 4.5 g/dL 3.5-5 0190350740) ALK PHOS (test code = 65 U/L 34-122 4867109228) ALTv (test code = 22 U/L 5-35 1742-6) AST(SGOT) (test code 23 U/L 13-40 = 9682595850) eGFR (test code = mL/min/1.73m2 1623790966) TYRON (test code = TYRON) Association of [...] or urine or abnormalities in imaging tests). [facility] WITH [id number] 00:41:49 Test Item Value Reference Range Interpretation Comments WBC (test code = See_Comment [Automated message] 1990-2) The system [employer] generated this result transmitted ref erence range: 4.30 - 1 1.10 10*3/?L. The re ference range was not u sed to interpret this result as normal/abnor mal. RBC (test code = See_Comment [Automated message] 731-8) The system [employer] generated this result transmitted ref erence range: [...] RDW-SD (test code 40.7 fL 39-49.9 = 39911-7) RDW-CV (test code 12.2 % 12-15.5 = 788-0) PLT (test code = See_Comment [Automated message] 997-3) The system [employer] generated this result transmitted ref erence range: 166 - 35 8 10*3/?L. The re ference range was not u sed to interpret this result as normal/abnor mal. MPV (test code = 9.6 fL 9.5-12.9 34334-3) NRBC/100 WBC (test See_Comment [Automat ed message] code = 7119639064) The syste m which generated this result transmitted ref erence range: 0.0 - 10 .0 /100 WBCs. The refer ence range was not u sed to interpret this result as normal/abnor mal. NRBC x10^3 (test See_Comment [Automated message] code = 0538477093) The syste m which generated this result transmitted ref erence range: 10*3/?L. The reference range was not used to interpr et this result as normal/abnormal . GRAN MAT (NEUT) % 37.5 % (test code = 770-8) IMM GRAN % (test 0.20 % code = 7604547890) LYMPH % (test code 50.8 % = 736-9) MONO % (test code 8.7 % = 5905-5) EOS % (test code = 2.1 % 713-8) BASO % (test code 0.7 % = 706-2) GRAN MAT 2.10 10*3/uL 1.88-7.09 x10^3(ANC) (test code = 4555280374) IMM GRAN x10^3 0-0.06 (test code = 4656520691) LYMPH x10^3 (test 2.85 10*3/uL 1.32-3.29 code = 731-0) MONO x10^3 (test 0.49 10*3/uL 0.33-0.92 code = 742-7) EOS x10^3 (test 0.12 10*3/uL 0.03-0.39 code = 711-2) BASO x10^3 (test 0.04 10*3/uL 0.01-0.07 code = 704-7) [facility] [id number] 00:22:00 Test Item Value Reference Range Interpretation Comments POCT PREG (test code = 1605) negative Lab Interpretation (test code = Normal 12792-5) [facility] Met[facility] [id number] 03:45:37 Test Item Value Reference Range Interpretation Comments NA (test code = 140 mmol/L 135-145 5862423422) K (test code = 3.8 mmol/L 3.5-5.0 8120508172) CL (test code = 104 mmol/L 98-108 0431877574) CO2 TOTAL (test code 24 mmol/L 23-31 = 5084035270) AGAP (test code = 2-16 3740842408) BUN (test code = 12 mg/dL 7-23 4135698365) GLUCOSE (test code = 94 mg/dL 70-110 7952291144) CREATININE (test code 0.92 mg/dL 0.50-1.04 = 9037644229) TOTAL BILI (test code 1.0 mg/dL 0.1-1.1 = 9032436861) CALCIUM (test code = 8.9 mg/dL 8.6-10.6 5013555214) T PROTEIN (test code 8.1 g/dL 6.3-8.2 = 5118429575) ALBUMIN (test code = 4.8 g/dL 3.5-5.0 2062951513) ALK PHOS (test code = 68 U/L 34-122 0602017044) ALTv (test code = 19 U/L 5-35 1742-6) AST(SGOT) (test code 32 U/L 13-40 = 4266019289) eGFR (test code = mL/min/1.73m2 0582936685) TYRON (test code = TYRON) Association of [...] or urine or abnormalities in imaging tests). [facility], [id number] 03:44:57 Test Item Value Reference Range Interpretation Comments LIPASE (test code = 8373664241) 64 U/L 0-220 Lab Interpretation (test code = Normal 56300-1) [facility] with [id number] 03:36:15 Test Item Value Reference Range Interpretation Comments WBC (test code = See_Comment [Automated 6690-2) message] The sy stem which generated this [...] RDW-SD (test code = 39.5 fL 39.0-49.9 07774-7) RDW-CV (test code = 11.7 % 12.0-15.5 L 788-0) PLT (test code = See_Comment [Automated 777-3) message] The sy stem which generated this result transmitted reference range : 166 - 358 10*3/ ?L. The reference r jose was not used to interpret this result as normal/abnormal . MPV (test code = 9.2 fL 9.5-12.9 L 48592-6) NRBC/100 WBC (test See_Comment [Automat ed code = 6792266829) message] The system which generated this result transmitted reference range : 0.0 - 10.0 /100 WBCs. The refer ence range was not u sed to interpret th is result as normal/abnormal . NRBC x10^3 (test code <0.01 See_Comment [Auto mated = 3939061108) message] The s ystem which generated this result transmitted reference range : 10*3/?L. The reference range was not used to interpret this result as normal/abnormal . GRAN MAT (NEUT) % 42.4 % (test code = 770-8) IMM GRAN % (test code 0.80 % = 1372322099) LYMPH % (test code = 45.8 % 736-9) MONO % (test code = 9.7 % 5905-5) EOS % (test code = 0.5 % 713-8) BASO % (test code = 0.8 % 706-2) GRAN MAT x10^3(ANC) 2.62 10*3/uL 1.88-7.09 (test code = 7683233890) IMM GRAN x10^3 (test 0.05 10*3/uL 0.00-0.06 code = 6375906057) LYMPH x10^3 (test code 2.83 10*3/uL 1.32-3.29 = 731-0) MONO x10^3 (test code 0.60 10*3/uL 0.33-0.92 = 742-7) EOS x10^3 (test code = 0.03 10*3/uL 0.03-0.39 711-2) BASO x10^3 (test code 0.05 10*3/uL 0.01-0.07 = 704-7) Lab Interpretation Abnormal (test code = 65758-2) [facility] [id number] 03:18:00 Test Item Value Reference Range Interpretation Comments POCT PREG (test code = 1605) negative On board controls acceptable with positive C Line (test code = 3574) POCT PREG LOT # (test code = 3575) [id number] POCT PREG TEST DATE (test 05-09-2023 code = 3576) Lab Interpretation (test code = Normal 77127-7) [facility]"
[2023-03-25] MEDS ORDERED: NA CHLORIDE 0.9% 1,000 ML ONE (15:06)
[2023-03-25 15:28] LABS: Hematocrit 41.5 % (36.0-45.0); Lymphocytes % 53.3 % (15.3-44.8); MCV 90.9 fL (80-100); Platelets 401 thou/uL (152-406); RBC Red Blood Cell Count 4.57 M/uL (3.86-4.86)
[2023-03-25 15:29] LABS: Specific Gravity 1.007 (1.005-1.030)
[2023-03-25 15:32] LABS: Specific Gravity 1.007 (1.005-1.030); Urine Bacteria None Seen /HPF (<20); Urine Bilirubin NEGATIVE (Negative); Urine Blood 1+ (Negative); Urine Clarity Turbid (Clear); Urine Color Colorless (Yellow); Urine Glucose NEGATIVE (Negative); Urine Protein NEGATIVE (Negative); Urine RBC <5 /HPF (None Seen); Urine Urobilinogen Normal (Normal)
[2023-03-25] MEDS ORDERED: MORPHINE 4 MG/ML SYR ONE ×2 (15:39→17:36)
[2023-03-25] MEDS ORDERED: ONDANSETRON 4 MG/2 ML VIAL ONE (15:39)
[2023-03-25 15:49] LABS: BUN Blood Urea Nitrogen 8 mg/dL (7-18); Bicarbonate 20 mEq/L (21-32); Glomerular Filtration Rate 86 ml/min (=/>90); Glucose Level 90 mg/dL (74-106); Potassium 3.6 mEq/L (3.5-5.1); Sodium Level 139 mEq/L (136-145)
[2023-03-25 15:50] LABS: HCG, Quantitative < 1 mIU/mL (1-3)
--- NOTE | 2023-03-25 16:13 | RAD REPORT ---
EXAM DESCRIPTION: US - Pelvis Complete - 03/25/2023 3:08 pm CLINICAL HISTORY: ABD PAIN Pelvic pain. COMPARISON: <Comparisons> FINDINGS: The uterus is mildly enlarged in size measuring 9.0 x 5.8 x 5.0 cm. Uterine echotexture is normal.. The endometrial stripe measures mildly thickened with trace fluid present measuring 5 mm. No evidence of IUP. The right ovary is normal. The right ovary measures 2.2 x 1.8 x 1.6 cm. The left ovary is obscured by bowel gas. Normal blood flow seen to the right ovary. No significant pelvic ascites. IMPRESSION: Mildly thickened endometrium with trace fluid present.No IUP seen. Left ovary is obscured by bowel gas.
--- NOTE | 2023-03-25 17:07 | RAD REPORT ---
EXAM DESCRIPTION: CTAbdomen Pelvis W Contrast - 03/25/2023 4:59 pm CLINICAL HISTORY: Abdominal pain. ABD PAIN COMPARISON: <Comparisons> TECHNIQUE: Biphasic CT imaging of the abdomen and pelvis was performed with 100 ml non-ionic IV cont rast. All CT scans are performed using dose optimization technique as appropriate and may include automated exposure control or mA/KV adjustment according to patient size. FINDINGS: The lung bases are clear. The liver, spleen, pancreas, adrenal glands and kidneys are within normal limits. No bowel obstruction, free air, free fluid or abscess. Moderate stool is present throughout the colon . The appendix is normal. No evidence of significant lymphadenopathy. No suspicious bony findings. IMPRESSION: No acute intra-abdominal or pelvic finding.
--- NOTE | 2023-03-25 17:52 | EDPHYS ---
Physician Documentation [facility] Name: Alie Gee Age: 38 yrs Sex: Female : 1985 Arrival Date: 03/25/2023 Time: 13:37 Bed 12 Private MD: ED Physician HPI: 03/25 16:05 This 38 yrs old Black Female presents to ER via Ambulatory with complaints of Abdominal sb4 Pain. 16:05 The patient presents with abdominal pain in the lower abdomen. Onset: The sb4 symptoms/episode began/occurred yesterday. The symptoms do not radiate. Associated signs and symptoms: Pertinent positives: nausea. 18:05 patient states that last night she was experiencing some lower abdominal pain and then sb4 passed some unknown vaginal contents. she states the pain has gotten worse. she brought the remains into the ed today. she denies , reports a tubal ligation and is on depo provera, however has not had a period since starting the depo 3 months ago. endorses mild vaginal bleeding. 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 - Social history:: Smoking status: Patient reports the use of cigarette tobacco products, smokes one-half pack cigarettes per day. ROS: 18:12 Constitutional: Negative for fever, chills, and weight loss, Eyes: Negative for injury, sb4 pain, redness, and discharge, ENT: Negative for injury, pain, and discharge, Cardiovascular: Negative for chest pain, palpitations, and edema, Respiratory: Negative for shortness of breath, cough, wheezing, and pleuritic chest pain. 18:12 Abdomen/GI: Positive for abdominal pain, nausea, Negative for vomiting, diarrhea. 18:12 : Positive for vaginal bleeding, Negative for urinary symptoms. 18:12 All other systems are negative. Exam: 18:12 Constitutional: This is a well developed, well nourished patient who is awake, alert, sb4 and in no acute distress. Head/Face: Normocephalic, atraumatic. Eyes: Extra-ocular motions intact. Periorbital areas with no swelling, redness, or edema. ENT: Mucous membranes moist. Cardiovascular: Regular rate and rhythm with a normal S1 and S2. Respiratory: Lungs have equal breath sounds bilaterally, clear to auscultation and percussion. No rales, rhonchi or wheezes noted. No increased work of breathing, no retractions or nasal flaring. Abdomen/GI: Soft, non-tender, no distension. Female : Normal external genitalia. Skin: Warm, dry with normal turgor. Normal color with no rashes, no lesions, and no evidence of cellulitis. MS/ Extremity: Pulses equal, no cyanosis. Neurovascular intact. Full, normal range of motion. 18:12 : Pelvic Exam: External exam: is normal, Speculum exam: scant bleeding, no cervicitis, os that is closed, no tissue in cervix is seen, no tissue in vagina is seen. Vital Signs: 14:14 BP 157 / 103; Pulse 102; Resp 18; Temp 98.2(TE); Pulse Ox 100% ; Weight 108.86 kg; cm10 Height 5 ft. 6 in. ; Pain 9/10; 17:30 BP 119 / 67; Pulse 87; Pulse Ox 100% ; ap3 19:26 Pulse 69; Resp 19; Pulse Ox 100% ; kd3 14:14 Body Mass Index 38.74 (108.86 kg, 167.64 cm) cm10 14:14 Pain Scale: Adult cm10 MDM: 14:10 Patient medically screened. sb4 18:12 Differential diagnosis: Dysmenorrhea, Ectopic , Ovarian Torsion, Tubal Ovarian sb4 Abcess, IUP, retained , septic , incomplete . 18:12 Data reviewed: vital signs, nurses notes, lab test result(s), radiologic studies, I sb4 have discussed the patient's presentation/case with the attending Emergency Department Physician; and as a result, I will discharge patient. Consideration of Admission/Observation Escalation of care including admission/observation considered. Historians other than the Patient: Spouse/Significant Other: spouse. Counseling: I had a detailed discussion with the patient and/or guardian regarding the historical points, exam findings, and any diagnostic results supporting the discharge/admit diagnosis, lab results, radiology results, the need for outpatient follow up, an OB/Gyne specialist, to return to the emergency department if symptoms worsen or persist or if there are any questions or concerns that arise at home. ED course: items patient passed have the appearance of some form of products of conception however her quantitative hcg is negative. ultrasound and CT do not show any signs of recent . no retained products noted in cervix or vaginal canal during exam. patient's pain has improved. no lab abnormalities. 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 03/25 14:15 Order name: Basic Metabolic Panel; Complete Time: 15:53 sb4 03/25 14:15 Order name: CBC with Diff; Complete Time: 15:34 sb4 03/25 14:15 Order name: Test, Urine; Complete Time: 15:37 sb4 03/25 14:15 Order name: Quantitative Hcg; Complete Time: 15:53 sb4 03/25 14:15 Order name: Urinalysis w/ reflexes; Complete Time: 15:34 sb4 03/25 14:15 Order name: US Pelvis Complete; Complete Time: 16:16 sb4 03/25 15:10 Order name: Transvaginal Study Probe EDMS 03/25 16:23 Order name: CT Abd/Pelvis - IV Contrast Only; Complete Time: 17:10 sb4 03/25 14:15 Order name: IV Saline Lock; Complete Time: 15:23 sb4 03/25 14:15 Order name: Labs collected and sent; Complete Time: 15:23 sb4 03/25 16:23 Order name: Pelvic Exam Setup; Complete Time: 16:29 sb4 Administered Medications: 15:23 Drug: NS 0.9% IV 1000 ml Route: IV; Rate: 1 bolus; Site: right antecubital; ap3 19:28 Follow up: Response: No adverse reaction; IV Status: Completed infusion kd3 15:32 Drug: morphine IVP or IV 4 mg Route: IVP; Infused Over: 4 mins; Site: right antecubital;ap3 17:24 Follow up: Response: Pain is unchanged, physician notified ap3 15:32 Drug: Ondansetron IVP 4 mg Route: IVP; Site: right antecubital; ap3 17:24 Follow up: Response: No adverse reaction ap3 17:30 Drug: morphine IVP or IV 4 mg Route: IVP; Infused Over: 4 mins; Site: right antecubital;ap3 19:28 Follow up: Response: No adverse reaction; Pain is decreased kd3 Disposition Summary: 03/25/23 17:52 Discharge Ordered Location: Home sb4 Problem: new sb4 Symptoms: have improved sb4 Condition: Stable sb4 Diagnosis - Abnormal uterine and vaginal bleeding, unspecified sb4 Followup: sb4 - With: Roxanna Cox MD - When: 2 - 3 days - Reason: Recheck today's complaints, Continuance of care, Re-evaluation by your physician Discharge Instructions: - Discharge Summary Sheet sb4 - Abnormal Uterine Bleeding sb4 Forms: - Medication Reconciliation Form sb4 - Thank You Letter sb4 - Antibiotic Education sb4 - Prescription Opioid Use sb4 - Patient Portal Instructions sb4 - Leadership Thank You Letter sb4 Signatures: Dispatcher [employer] Malena Irvin RN RN ap3 Izzy Krishnamurthy PA-C PA-C sb4 Gema Franks RN RN cm10 Ольга Patterson RN kd3
--- NOTE | 2023-03-25 17:52 | ER ---
Nurse's Notes [facility] Name: Alie Gee Age: 38 yrs Sex: Female : 1985 Arrival Date: 03/25/2023 Time: 13:37 Bed 12 Private MD: Diagnosis: Abnormal uterine and vaginal bleeding, unspecified Presentation: 03/25 14:14 Chief complaint: Patient states: lower abdominal pain that radiates to her RLQ cm10 abdominal pain onset last night. Pt states that when she went to the restroom yesterday she passed something,unknown what it was. Pt reports nausea. Coronavirus screen: Vaccine status: Patient reports receiving the 2nd dose of the covid vaccine. Client denies travel out of the [place] in the last 14 days. Ebola Screen: Patient denies travel to an Ebola-affected area in the 21 days before illness onset. No symptoms or risks identified at this time. Initial Sepsis Screen: Does the patient meet any 2 criteria? No. Patient's initial sepsis screen is negative. Does the patient have a suspected source of infection? No. Patient's initial sepsis screen is negative. Risk Assessment: Do you want to hurt yourself or someone else? Patient reports no desire to harm self or others. Onset of symptoms was March 25, 2023. 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 - Social history:: Smoking status: Patient reports the use of cigarette tobacco products, smokes one-half pack cigarettes per day. Screenin:23 [facility] ED Fall Risk Assessment (Adult) History of falling in the last 3 months, ap3 including since admission No falls in past 3 months (0 pts). Abuse screen: Denies threats or abuse. Nutritional screening: No deficits noted. Tuberculosis screening: No symptoms or risk factors identified. Assessment: 15:22 General: Appears uncomfortable, Behavior is calm, cooperative, appropriate for age. ap3 Pain: Complains of pain in suprapubic area Pain began 1 day ago. Neuro: Level of Consciousness is awake, alert, obeys commands, Oriented to person, place, time, situation, Gait is steady. Cardiovascular: Patient's skin is warm and dry. Respiratory: Airway is patent Respiratory effort is even, unlabored, Respiratory pattern is regular, symmetrical. GI: Bowel sounds present X 4 quads. Abd is soft X 4 quads Abdomen is tender to palpation in suprapubic area. Vital Signs: 14:14 BP 157 / 103; Pulse 102; Resp 18; Temp 98.2(TE); Pulse Ox 100% ; Weight 108.86 kg; cm10 Height 5 ft. 6 in. ; Pain 9/10; 17:30 BP 119 / 67; Pulse 87; Pulse Ox 100% ; ap3 19:26 Pulse 69; Resp 19; Pulse Ox 100% ; kd3 14:14 Body Mass Index 38.74 (108.86 kg, 167.64 cm) cm10 14:14 Pain Scale: Adult cm10 ED Course: 13:53 Patient arrived in ED. cm10 14:10 Izzy Krishnamurthy PA-C is PHCP. sb4 14:15 Triage completed. cm10 14:16 Arm band placed on Patient placed in waiting room. cm10 15:10 US Pelvis Complete In Process Unspecified. EDMS 15:10 Transvaginal Study Probe In Process Unspecified. EDMS 15:21 Malena Zayas, RN is Primary Nurse. ap3 15:21 Initial lab(s) drawn, by me, sent to lab. Urine collected: clean catch specimen, clear. ap3 Inserted saline lock: 20 gauge in right antecubital area, using aseptic technique. Blood collected. 15:23 Patient has correct armband on for positive identification. Call light in reach. Side ap3 rails up X 1. Adult w/ patient. 17:00 CT Abd/Pelvis - IV Contrast Only In Process Unspecified. EDMS 17:51 Roxanna Cox MD is Referral Physician. sb4 19:23 Provided Education on: . kd3 19:23 No provider procedures requiring assistance completed. IV discontinued, intact, kd3 bleeding controlled, No redness/swelling at site. Pressure dressing applied. Administered Medications: 15:23 Drug: NS 0.9% IV 1000 ml Route: IV; Rate: 1 bolus; Site: right antecubital; ap3 19:28 Follow up: Response: No adverse reaction; IV Status: Completed infusion kd3 15:32 Drug: morphine IVP or IV 4 mg Route: IVP; Infused Over: 4 mins; Site: right antecubital;ap3 17:24 Follow up: Response: Pain is unchanged, physician notified ap3 15:32 Drug: Ondansetron IVP 4 mg Route: IVP; Site: right antecubital; ap3 17:24 Follow up: Response: No adverse reaction ap3 17:30 Drug: morphine IVP or IV 4 mg Route: IVP; Infused Over: 4 mins; Site: right antecubital;ap3 19:28 Follow up: Response: No adverse reaction; Pain is decreased kd3 Medication: 15:23 VIS not applicable for this client. ap3 Outcome: 17:52 Discharge ordered by . sb4 19:23 Discharged to home ambulatory. kd3 19:23 Condition: stable 19:23 Discharge instructions given to patient, Instructed on discharge instructions, follow up and referral plans. Demonstrated understanding of instructions, follow-up care. 19:28 Patient left the ED. kd3 Signatures: Dispatcher [employer] EDMalena Martinez RN RN ap3 Ольга Patterson RN RN kd3 Izzy Krishnamurthy PA-C PAZak stone4 Gema Franks RN RN cm10
[2023-03-25 19:53] VITALS: TEMP 98.2; O2SAT 100
[2023-03-25 19:54] VITALS: BP 119/67
== END 2023-03-25 19:28 | disposition home or self-care (01) ==
LOC: ER 13:37
DX: N93.9 Abnormal uterine and vaginal bleeding, unspecified (principal); R10.30 Lower abdominal pain, unspecified; F17.210 Nicotine dependence, cigarettes, uncomplicated
CPT/HCPCS: 85025; 81001; 80048; 36415; 81025; 84702; 74177; 76856; 76830; Q9967; J2405; J7030; 88305

== ENCOUNTER 2023-11-09 20:38 | Emergency (ER) | payer OTHER, SELFPAY ==
--- OUTSIDE RECORDS SUMMARY | 2023-11-09 21:03 | XMS REPORT | Continuity of Care Document ---
Author Name Unknown Address [address] [facility] [address] [place] [address] [facility] thconnect Address [address] [facility] [place] [address] Care Team Providers Care Cheesemaker Helper Name Role Phone Cheikh Boyle MD Primary Care Physician + [phone] JARROD MERCADO Attending Clinician Unavailable TAIWO ALEGRIA Attending Clinician Unava ilable CHEIKH BOYLE Attending Clinician Unavailable Jarrod Mercado MD Attending Clinician [phone] [facility]ito [facility] Attending Clinician Unavailable Malena Gracia MD Attending Clinician [phone] MALENA GARCIA Attending Clinician Unavailable Unknown, Attending Attending Clinician Unavailab le Doctor Unassigned, Maloy Attending Clinician U Troy Salas MD Attending Clinician [phone] TROY KHAN Attending Clinician Unavailab tommie Pob, [facility] Main Attending Clinician UnavailNICANOR Cancino Attending Clinician Unavailable Nicanor Hall MD Attending Clinician [phone] Cheikh Boyle MD Attending Clinician [phone] Taiwo Bradford Attending Clinician [phone] Sera Martinez Attending Clinician [phone] Frannie Smith PA-C Attending Clinician [phone] FRANNIE SMITH Attending Clinician Unavailable Lab, c Attending Clinician Unavailable ARIANNA WHITMORE Attending Clinician Unavailable Arianna Whitmore MD Attending Clinician [phone] Guajardo RT, Kimberly C Attending Clinician Unavailab ANDRE Kennedy Attending Clinician Unavailable Therapist, [facility] Pulmonary Attending Clinician Shirley vailaSERA Shrestha Attending Clinician Unavailable 2, [facility] Lab Attending Clinician Unavailable Red Cramer MD Attending Clinician + [phone] Nurse, [facility] Women's Health Attending Clinician Un available UNKNOWN, ATTENDING Attending Clinician Unavailab Sabiha Hernandez RN Attending Clinician Unavailable Only, Aurelio Flores Test Attending Clinician Unavailabl Blanka Oneal LVN Attending Clinician Unavail able Kimmy Prieto RN Attending Clinician Unavailable CAMELIA CORTEZ Attending Clinician Unavailable NII BONILLA Attending Clinician Unav ailable Nii Bonilla MD Attending Clinician + FRANK CIARRA S Attending Clinician Unavailable Frank PAC, Ciarra S Attending Clinician [phone] ADELINE WILLIAM Attending Clinician Unavailable LIZANDRO KEATING Attending Clinician Unavailable Lizandro Rodriguez Attending Clinician [phone] BRITTANY BELCHER Attending Clinician Unavailable JAN ESTRADA Attending Clinician Unavailable NATALIE ALMENDAREZ Attending Clinician Unavailable Natalie Mills Attending Clinician +[phone] Nurse, [facility] Attending Clinician Un available Francis Valentin Attending Clinician [phone] FRANCIS BOWER Attending Clinician Unavailzoraida Kaur RN, Xochitl Stanford Attending Clinician Unavailab SHANNAN Morgan Attending Clinician Unavailab Shannan Fox Attending Clinician + [phone] Provider, [facility] Attending Clinician Unavailable Vaccine, Ang Db Cbc Fam Attending Clinician Unav ailable Dominic Peralta DO Attending Clinician [phone] DOMINIC PERALTA Attending Clinician Unavail able Brittany Belcher MD Attending Clinician [phone] Micheal Mayer DO Attending Clinician [phone] GAMALIEL GREER III Attending Clinician UnavailSusana Peterson Attending Clinician Unavailable Susana Avelar Attending Clinician [phone] Provider, Urgent Care Day Attending Clinician Un available OMAGHOMI, OMAYEMI Attending Clinician Unavailzoraida e Omaghomi FORENSIC IDENTIFICATION SPECIALIST, Omayemi Attending Clinician [phone] Stewart FORENSIC IDENTIFICATION SPECIALIST, Tomasa Attending Clinician [phone] Mode MOTLEY, Kaley Roberts Attending Clinician Unavaila TOMASA Agrawal Attending Clinician Unavailable TRUPTI COOPER Attending Clinician Unavail able THIERNO BUENO Attending Clinician Unavail able THIERNO BUENO Attending Clinician Unavail able TORY SAMPSON Attending Clinician Unavailable KEHINDE PATTERSON Attending Clinician Unavailable Jan Estrada MD Attending Clinician [phone] RAYO VAUGHN Attending Clinician Unavailable IVAN ROBERTSON Attending Clinician Unavailable AGUSTO DARLING Attending Clinician Unavailable AGUSTO DARLING Attending Clinician Unavailable NEAL OROZCO Attending Clinician Unavailab RED Cast Attending Clinician Unavaila ALBA Marrero Attending Clinician Unavailable [facility], [facility] Cardio Fac Attending Clinician Unavail able 2, [facility]io Fac Room Attending Clinician Unava ilable Melisa Perez PT Attending Clinician Un available Kyle Ortiz MD Attending Clinician [phone] MICHEAL MAYER Attending Clinician Unavailable Gamaliel Johnson MD Attending Clinician + [phone] Filomena Torres DO Attending Clinician [phone] JARROD MERCADO Admitting Clinician Unavailable Jarrod Mercado MD Admitting Clinician [phone] ARIANNA WHITMORE Admitting Clinician Unavailable CHEIKH BOYLE Admitting Clinician Unavailable NII BONILLA Admitting Clinician Unav CIARRA Blackman Admitting Clinician Unavailable NATALIE ALMENDAREZ Admitting Clinician Unavailable BRITTANY BELCHER Admitting Clinician Unavailable Brittany Belcher MD Admitting Clinician [phone] Susana DANIELS Admitting Clinician Unavailable MICHEAL MAYER Admitting Clinician Unavailable Payers Payer Name Policy Type Policy Number Effective Date Expirati on Date Source [facility] PAUL KAUR [id number] 2017 00:00:00 SERGIO JAVIER FROM [facility] [id number] 2022 00:00:00 Problems Condition Name Condition Details Condition Category Status Onset Date Resolution Date Last Treatment Date Treating Clinician Comments Source Status post laparoscop ic hysterecto my Status post laparoscop ic hysterecto my Disease Active 09-02 00:00: 00 [facility] Status post bilateral salpingect fer Status post bilateral salpingect fer Disease Active 09-02 00:00: 00 [facility] Status post cystoscopy Status post cystoscopy Disease Active 09-02 00:00: 00 [facility] Preop cardiovasc ular exam Preop cardiovasc ular exam Disease Active - 00:00: 00 [facility] PFO (patent foramen ovale) PFO (patent foramen ovale) Disease Active -17 00:00: 00 [facility] Cigarette smoker Cigarette smoker Disease Active -17 00:00: 00 [facility] Moderate episode of recurrent major depressive disorder Moderate episode of recurrent major depressive disorder Disease Active 1- 00:00: 00 [facility] Pre-op examinatio n Pre-op examinatio n Disease Active 1-10 00:00: 00 [facility] Abnormal uterine bleeding Abnormal uterine bleeding Disease Active 2022-08 2-14 00:00: 00 [facility] Tachycardi a Tachycardi a Disease Active 2022-08 0-04 00:00: 00 [facility] Mild intermitte nt asthma without complicati on Mild intermitte nt asthma without complicati on Disease Active 2022-08 0-04 00:00: 00 [facility] Bacterial vaginosis Bacterial vaginosis Disease Active 8-23 00:00: 00 [facility] COVID-19 virus infection COVID-19 virus infection Disease Active 0 8-23 00:00: 00 [facility] Migraine equivalent syndrome Migraine equivalent syndrome Disease Active 8-23 00:00: 00 [facility] Hemorrhagi c ovarian cyst Hemorrhagi c ovarian cyst Disease Active 0 3-30 00:00: 00 [facility] Obesity (BMI 30-39.9) Obesity (BMI 30-39.9) Disease Active 4-27 00:00: 00 [facility] Fibromyalg ia syndrome Fibromyalg ia syndrome Disease Active 3-10 00:00: 00 [facility] 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 simplex virus 2) infection Disease Active 2019-08 1- 00:00: 00 [facility] Muscle spasms of both lower extremitie s Muscle spasms of both lower extremitie s Disease Active 2019-08 1 00:00: 00 [facility] Need for prophylact ic vaccinatio n against hepatitis A and hepatitis B Need for prophylact ic vaccinatio n against hepatitis A and hepatitis B Disease Active 8-06 00:00: 00 [facility] Virilizati on Virilizati on Disease Active 8-04 00:00: 00 [facility] Shortness of breath Shortness of breath Disease Active 5- 00:00: 00 [facility] SOB (shortness of breath) on exertion SOB (shortness of breath) on exertion Disease Active 5- 00:00: 00 [facility] Acneiform rash Acneiform rash Disease Active 4-21 00:00: 00 [facility] Current smoker Current smoker Disease Active 11-03 00:00: 00 [facility] Nicotine dependence with current use Nicotine dependence with current use Disease Active 3-27 00:00: 00 [facility] Medication care plan discussed with patient Medication care plan discussed with patient Disease Active 3-24 00:00: 00 [facility] Former smoker Former smoker Disease Active 3-20 00:00: 00 [facility] Menetrier' s disease Menetrier' s disease Disease Active 20 00:00: 00 [facility] Hep C w/o coma, chronic Hep C w/o coma, chronic Disease Active 2- 00:00: 00 [facility] Right lower quadrant abdominal pain Right lower quadrant abdominal pain Disease Active - 00:00: 00 [facility] Bronchitis Bronchitis Disease Active - 00:00: 00 [facility] Substernal chest pain Substernal chest pain Disease Active 08-31 00:00: 00 [facility] Cysts of both ovaries Cysts of both ovaries Disease Active 1-08 00:00: 00 [facility] Primary insomnia Primary insomnia Disease Active 1-03 00:00: 00 [facility] Bipolar 1 disorder Bipolar 1 disorder Disease Active 2018-08 00:00: 00 [facility] Nausea and vomiting in adult patient Nausea and vomiting in adult patient Disease Active 2018-08 00:00: 00 [facility] Anxiety Anxiety Disease Active 2018-08 00:00: 00 [facility] Current moderate episode of major depressive disorder, unspecifie d whether recurrent Current moderate episode of major depressive disorder, unspecifie d whether recurrent Disease Active 2018-08 00:00: 00 [facility] Cigarette nicotine dependence with other nicotine-i nduced disorder Cigarette nicotine dependence with other nicotine-i nduced disorder Disease Active 2018-08 00:00: 00 [facility] Schizophre era with prominent negative symptoms Schizophre era with prominent negative symptoms Disease Active 2018-08 00:00: 00 [facility] IVDU (intraveno us drug user) IVDU (intraveno us drug user) Disease Active 2018-08 00:00: 00 [facility] Morbid obesity with body mass index (BMI) of 40.0 to 49.9 Morbid obesity with body mass index (BMI) of 40.0 to 49.9 Disease Active 2018-08 0-17 00:00: 00 [facility] Allergies, Adverse Reactions, Alerts Allergy Name Allergy Type Status Severity Reaction(s) Onset Date Inactive Date Treating Clinician Comments Source NO KNOWN ALLERGIE S Drug Class Active [facility] Social History Social Habit Start Date Stop Date Quantity Comments Source History SDOH Alcohol Frequency [facility] History SDOH Alcohol Std Drinks [facility] History SDOH Alcohol Binge [facility] History of tobacco use Passive smoker [facility] Gender identity [facility] Sexual orientation [facility] Alcohol intake 2023-09-15 00:00:00 2023-09-15 00:00:00 Current drinker of alcohol (finding) [facility] History of Social function 2023-09-02 00:00:00 2023-09-02 00:00:00 [facility] Tobacco Comment 2023-08-31 00:00:00 2023-08-31 00:00:00 Stopped vaping ~1 yr ago (only smokes two cigarettes per day) [facility] Cigarettes smoked current (pack per day) - Reported 2023-08-31 00:00:00 2023-08-31 00:00:00 [facility] Cigarette pack-years 2023-08-31 00:00:00 2023-08-31 00:00:00 [facility] Tobacco use and exposure 2023-08-31 00:00:00 2023-08-31 00:00:00 Smokeless tobacco non-user [facility] Exposure to SARS-CoV-2 (event) 2022-08-06 00:00:00 2022-08-16 11:23:00 Not sure [facility] Alcohol Comment 2021-10-03 00:00:00 2021-10-03 00:00:00 every weekend [facility] Sex Assigned At 1985 00:00:00 1985 00:00:00 [facility] Smoking Status Start Date Stop Date Source Smokes tobacco daily 2023-08-31 00:00:00 [facility] Medications Ordered Medication Name Filled Medication Name Start Date Stop Date Current Medication? Ordering Clinician Indication Dosage Frequency Signature (SIG) Comments Components Source glecaprevir -pibrentasv ir (MAVYRET) 100-40 mg 2024-0 2-06 12:19: 10 Yes 3{tbl} Take 3 tablets by mouth in the morning. [facility] glecaprevir -pibrentasv ir (MAVYRET) 100-40 mg 2024-0 2-06 12:19: 10 Yes 3{tbl} Take 3 tablets by mouth in the morning. [facility] glecaprevir -pibrentasv ir (MAVYRET) 100-40 mg 2024-0 2-06 12:19: 10 Yes 3{tbl} Take 3 tablets by mouth in the morning. [facility] glecaprevir -pibrentasv ir (MAVYRET) 100-40 mg 2024-0 2-06 12:19: 10 Yes 3{tbl} Take 3 tablets by mouth in the morning. [facility] glecaprevir -pibrentasv ir (MAVYRET) 100-40 mg 2024-0 2-06 12:19: 10 Yes 3{tbl} Take 3 tablets by mouth in the morning. [facility] glecaprevir -pibrentasv ir (MAVYRET) 100-40 mg 2024-0 2-06 12:19: 10 Yes 3{tbl} Take 3 tablets by mouth in the morning. [facility] glecaprevir -pibrentasv ir (MAVYRET) 100-40 mg 2024-0 2-06 12:19: 10 Yes 3{tbl} Take 3 tablets by mouth in the morning. [facility] glecaprevir -pibrentasv ir (MAVYRET) 100-40 mg 2024-0 2-06 12:19: 10 Yes 3{tbl} Take 3 tablets by mouth in the morning. [facility] glecaprevir -pibrentasv ir (MAVYRET) 100-40 mg 2024-0 2-06 12:19: 10 Yes 3{tbl} Take 3 tablets by mouth in the morning. [facility] benzonatate 100 mg capsule 4-0 2-06 00:00: 00 Yes [id number] 200mg Take 2 capsules by mouth every 8 (eight) hours as needed for Cough. [facility] benzonatate 100 mg capsule 4-0 2-06 00:00: 00 Yes [id number] 200mg Take 2 capsules by mouth every 8 (eight) hours as needed for Cough. [facility] benzonatate 100 mg capsule 4-0 2-06 00:00: 00 Yes [id number] 200mg Take 2 capsules by mouth every 8 (eight) hours as needed for Cough. [facility] benzonatate 100 mg capsule 4-0 2-06 00:00: 00 Yes [id number] 200mg Take 2 capsules by mouth every 8 (eight) hours as needed for Cough. [facility] benzonatate 100 mg capsule 4-0 2-06 00:00: 00 Yes [id number] 200mg Take 2 capsules by mouth every 8 (eight) hours as needed for Cough. [facility] benzonatate 100 mg capsule 4-0 2-06 00:00: 00 Yes [id number] 200mg Take 2 capsules by mouth every 8 (eight) hours as needed for Cough. [facility] benzonatate 100 mg capsule 4-0 2-06 00:00: 00 Yes [id number] 200mg Take 2 capsules by mouth every 8 (eight) hours as needed for Cough. [facility] benzonatate 100 mg capsule 4-0 2-06 00:00: 00 Yes [id number] 200mg Take 2 capsules by mouth every 8 (eight) hours as needed for Cough. [facility] benzonatate 100 mg capsule 4-0 2-06 00:00: 00 Yes [id number] 200mg Take 2 capsules by mouth every 8 (eight) hours as needed for Cough. [facility] acetaminoph en-codeine 300-30 mg tablet 2023-0 2-06 00:00: 00 09-23 05:59 :00 Yes [id number] 1{tbl} Take 1 tablet by mouth every 4 (four) hours as needed for Pain (scale 7-10) for up to 7 days. Indication s: acute pain [facility] acetaminoph en-codeine 300-30 mg tablet 4-0 2-06 00:00: 00 09-23 05:59 :00 Yes [id number] 1{tbl} Take 1 tablet by mouth every 4 (four) hours as needed for Pain (scale 7-10) for up to 7 days. Indication s: acute pain [facility] acetaminoph en-codeine 300-30 mg tablet 4-0 2-06 00:00: 00 09-23 05:59 :00 Yes [id number] 1{tbl} Take 1 tablet by mouth every 4 (four) hours as needed for Pain (scale 7-10) for up to 7 days. Indication s: acute pain [facility] acetaminoph en-codeine 300-30 mg tablet 4-0 2-06 00:00: 00 09-23 05:59 :00 Yes [id number] 1{tbl} Take 1 tablet by mouth every 4 (four) hours as needed for Pain (scale 7-10) for up to 7 days. Indication s: acute pain [facility] acetaminoph en-codeine 300-30 mg tablet 2023-0 2-06 00:00: 00 09-23 05:59 :00 Yes [id number] 1{tbl} Take 1 tablet by mouth every 4 (four) hours as needed for Pain (scale 7-10) for up to 7 days. Indication s: acute pain [facility] acetaminoph en-codeine 300-30 mg tablet 2023-0 2-06 00:00: 00 09-23 05:59 :00 Yes [id number] 1{tbl} Take 1 tablet by mouth every 4 (four) hours as needed for Pain (scale 7-10) for up to 7 days. Indication s: acute pain [facility] acetaminoph en-codeine 300-30 mg tablet 4-0 2-06 00:00: 00 09-23 05:59 :00 Yes [id number] 1{tbl} Take 1 tablet by mouth every 4 (four) hours as needed for Pain (scale 7-10) for up to 7 days. Indication s: acute pain [facility] HYDROcodone -acetaminop hen 5-325 mg tablet 09-08 00:00: 00 09-11 05:59 :00 Yes [id number] 1{tbl} Take 1 tablet by mouth every 6 (six) hours as needed for Pain (scale 7-10) for up to 2 days. Indication s: acute pain [facility] glecaprevir -pibrentasv ir (MAVYRET) 100-40 mg 09-03 10:43: 47 Yes 3{tbl} Take 3 tablets by mouth in the morning. [facility] glecaprevir -pibrentasv ir (MAVYRET) 100-40 mg 09-03 10:43: 47 Yes 3{tbl} Take 3 tablets by mouth in the morning. [facility] glecaprevir -pibrentasv ir (MAVYRET) 100-40 mg 09-03 10:43: 47 Yes 3{tbl} Take 3 tablets by mouth in the morning. [facility] glecaprevir -pibrentasv ir (MAVYRET) 100-40 mg 09-03 10:43: 47 Yes 3{tbl} Take 3 tablets by mouth in the morning. [facility] glecaprevir -pibrentasv ir (MAVYRET) 100-40 mg 09-03 10:43: 47 Yes 3{tbl} Take 3 tablets by mouth in the morning. [facility] glecaprevir -pibrentasv ir (MAVYRET) 100-40 mg 09-03 10:43: 47 Yes 3{tbl} Take 3 tablets by mouth in the morning. [facility] glecaprevir -pibrentasv ir (MAVYRET) 100-40 mg 2023-09-03 10:43: 47 Yes 3{tbl} Take 3 tablets by mouth in the morning. [facility] glecaprevir -pibrentasv ir (MAVYRET) 100-40 mg 202309-03 10:43: 47 Yes 3{tbl} Take 3 tablets by mouth in the morning. [facility] simethicone (GAS RELIEF (SIMETHICON E)) chewable tablet 160 mg 09-03 03:00: 00 Yes 160mg 160 mg, Oral, PC+HS, First dose on Thu09/02/23 at 2100, Until Discontinu ed, Routine [facility] simethicone (GAS RELIEF (SIMETHICON E)) chewable tablet 160 mg 09-03 03:00: 00 Yes 160mg 160 mg, Oral, PC+HS, First dose on Thu09/02/23 at 2100, Until Discontinu ed, Routine [facility] docusate (COLACE) capsule 100 mg 09-03 02:00: 00 Yes 100mg 100 mg, Oral, Q12H, First dose on Thu09/02/23 at 2000, Until Discontinu ed, Routine [facility] docusate (COLACE) capsule 100 mg 09-03 02:00: 00 Yes 100mg 100 mg, Oral, Q12H, First dose on Thu09/02/23 at 2000, Until Discontinu ed, Routine [facility] metroNIDAZO LE (FLAGYL) tablet 500 mg 09-03 02:00: 00 09-10 01:59 :00 Yes 500mg 500 mg, Oral, Q12H, 14 doses, First dose on Thu09/02/23 at 1999, Last dose on Thu09/09/23 at 0800, Routine
Reason for Anti-Infec tive: Surgical Prophylaxi s
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
Duration of therapy: within 24 hours of surgery [facility] metroNIDAZO LE (FLAGYL) tablet 500 mg 09-03 02:00: 00 09-10 01:59 :00 Yes 500mg 500 mg, Oral, Q12H, 14 doses, First dose on Thu09/02/23 at 1999, Last dose on Thu09/09/23 at 0800, Routine
Reason for Anti-Infec tive: Surgical Prophylaxi s
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
Duration of therapy: within 24 hours of surgery [facility] lactated ringers IV infusion 1,000 mL 09-03 01:00: 00 Yes 1000mL at 75 mL/hr, 1,000 mL, IV Infusion, CONTINUOUS , Starting on Thu09/02/23 at 1900, Until Discontinu ed, Routine, PACU [facility] lactated ringers IV infusion 1,000 mL 09-03 01:00: 00 Yes 1000mL at 75 mL/hr, 1,000 mL, IV Infusion, CONTINUOUS , Starting on Thu09/02/23 at 1900, Until Discontinu ed, Routine, PACU [facility] ibuprofen (IBU) tablet 600 mg 09-03 00:52: 14 Yes 600mg 600 mg, Oral, Q6HPRN, Starting on Thu09/02/23 at 1852, Until Discontinu ed, Routine, Pain (scale 4-6) [facility] ibuprofen (IBU) tablet 600 mg 09-03 00:52: 14 Yes 600mg 600 mg, Oral, Q6HPRN, Starting on Thu09/02/23 at 1852, Until Discontinu ed, Routine, Pain (scale 4-6) [facility] hydrOXYzine (ATARAX) tablet 25 mg 09-03 00:50: 18 Yes 25mg 25 mg, Oral, Q8HPRN, Starting on Thu09/02/23 at 1850, Until Discontinu ed, Routine, Itching [facility] hydrOXYzine (ATARAX) tablet 25 mg 09-03 00:50: 18 Yes 25mg 25 mg, Oral, Q8HPRN, Starting on Thu09/02/23 at 1850, Until Discontinu ed, Routine, Itching [facility] ondansetron (ZOFRAN (PF)) injection 4 mg 09-03 00:50: 15 Yes 4mg 4 mg, Slow IV Push, Q4HPRN, Starting on Thu09/02/23 at 1850, Until Discontinu ed, Routine, Nausea and Vomiting (N/V) [facility] ondansetron (ZOFRAN (PF)) injection 4 mg 09-03 00:50: 15 Yes 4mg 4 mg, Slow IV Push, Q4HPRN, Starting on Thu09/02/23 at 1850, Until Discontinu ed, Routine, Nausea and Vomiting (N/V) [facility] HYDROcodone -acetaminop hen (NORCO 5) 5-325 mg tablet 2 tablet 09-03 00:50: 12 Yes 2{tbl} 2 tablet, Oral, Q4HPRN, Starting on Thu09/02/23 at 1850, Until Discontinu ed, Routine, Pain (scale 7-10) [facility] HYDROcodone -acetaminop hen (NORCO 5) 5-325 mg tablet 2 tablet 09-03 00:50: 12 Yes 2{tbl} 2 tablet, Oral, Q4HPRN, Starting on Thu09/02/23 at 1850, Until Discontinu ed, Routine, Pain (scale 7-10) [facility] acetaminoph en (TYLENOL) tablet 650 mg 09-03 00:50: 06 Yes 650mg 650 mg, Oral, Q6HPRN, Starting on Thu09/02/23 at 1850, Until Discontinu ed, Routine, Pain (scale 1-3) [facility] acetaminoph en (TYLENOL) tablet 650 mg 09-03 00:50: 06 Yes 650mg 650 mg, Oral, Q6HPRN, Starting on Thu09/02/23 at 1850, Until Discontinu ed, Routine, Pain (scale 1-3) [facility] HYDROcodone -acetaminop hen (NORCO 5) 5-325 mg tablet 1 tablet 09-03 00:30: 00 09-03 00:53 :00 No 1{tbl} 1 tablet, Oral, ONCE, 1 dose, On Thu09/02/23 at 1830, Routine, PACU [facility] HYDROcodone -acetaminop hen (NORCO 5) 5-325 mg tablet 1 tablet 09-03 00:30: 00 09-03 00:53 :00 No 1{tbl} 1 tablet, Oral, ONCE, 1 dose, On Thu09/02/23 at 1830, Routine, PACU [facility] FENTanyl PF (SUBLIMAZE (PF)) injection 25 mcg 09-03 00:27: 30 09-03 00:50 :00 No 25ug 25 mcg, Slow IV Push, Q5MIN PRN, 4 doses, Starting on Thu09/02/23 at 1827, Until Discontinu ed, Routine, Pain (scale 4-6), PACU [facility] FENTanyl PF (SUBLIMAZE (PF)) injection 25 mcg 09-03 00:27: 30 09-03 00:50 :00 No 25ug 25 mcg, Slow IV Push, Q5MIN PRN, 4 doses, Starting on Thu09/02/23 at 1827, Until Discontinu ed, Routine, Pain (scale 4-6), PACU [facility] sodium chloride 0.9 % irrigation solution 09-02 22:55: 00 09-03 00:41 :54 No PRN, Starting on Thu09/02/23 at 1655, Until Thu09/02/23 at 1841, Intra-op [facility] bupivacaine (preserv free) 0.5% (SENSORCAIN E MPF) injection 09-02 22:55: 00 09-03 00:41 :54 No PRN, Starting on Thu09/02/23 at 1655, Until Thu09/02/23 at 1841, Routine, Intra-op [facility] phenazopyri dine (PYRIDIUM) tablet 200 mg 09-02 19:45: 00 09-02 19:58 :00 No 200mg 200 mg, Oral, ONCE, 1 dose, On Thu09/02/23 at 1345, Routine [facility] lactated ringers IV infusion 1,000 mL 09-02 19:45: 00 09-02 19:58 :00 No 1000mL at 42 mL/hr, 1,000 mL, IV Infusion, ONCE, 1 dose, On Thu09/02/23 at 1345, Routine, DSU Pre-op [facility] phenazopyri dine (PYRIDIUM) tablet 200 mg 09-02 19:45: 00 09-02 19:58 :00 No 200mg 200 mg, Oral, ONCE, 1 dose, On Thu09/02/23 at 1345, Routine [facility] lactated ringers IV infusion 1,000 mL 09-02 19:45: 00 09-02 19:58 :00 No 1000mL at 42 mL/hr, 1,000 mL, IV Infusion, ONCE, 1 dose, On Thu09/02/23 at 1345, Routine, DSU Pre-op [facility] ibuprofen 600 mg tablet 09-02 00:00: 00 Yes [id number] 600mg Take 1 tablet by mouth every 6 (six) hours as needed for Pain (scale 1-3) or Pain (scale 4-6). [facility] simethicone 80 mg chewable tablet 09-02 00:00: 00 Yes [id number] 80mg Take 1 tablet by mouth after meals and at bedtime. [facility] metroNIDAZO LE (FLAGYL) 500 mg tablet 09-02 00:00: 00 Yes [id number] 500mg Take 1 tablet by mouth every 12 (twelve) hours. [facility] ibuprofen 600 mg tablet 09-02 00:00: 00 Yes [id number] 600mg Take 1 tablet by mouth every 6 (six) hours as needed for Pain (scale 1-3) or Pain (scale 4-6). [facility] simethicone 80 mg chewable tablet 09-02 00:00: 00 Yes [id number] 80mg Take 1 tablet by mouth after meals and at bedtime. [facility] metroNIDAZO LE (FLAGYL) 500 mg tablet 09-02 00:00: 00 Yes [id number] 500mg Take 1 tablet by mouth every 12 (twelve) hours. [facility] ibuprofen 600 mg tablet 09-02 00:00: 00 Yes [id number] 600mg Take 1 tablet by mouth every 6 (six) hours as needed for Pain (scale 1-3) or Pain (scale 4-6). [facility] simethicone 80 mg chewable tablet 4-0 -24 00:00: 00 Yes [id number] 80mg Take 1 tablet by mouth after meals and at bedtime. [facility] metroNIDAZO LE (FLAGYL) 500 mg tablet 4-0 -24 00:00: 00 Yes [id number] 500mg Take 1 tablet by mouth every 12 (twelve) hours. [facility] ibuprofen 600 mg tablet 4-0 -24 00:00: 00 Yes [id number] 600mg Take 1 tablet by mouth every 6 (six) hours as needed for Pain (scale 1-3) or Pain (scale 4-6). [facility] simethicone 80 mg chewable tablet 4-0 -24 00:00: 00 Yes [id number] 80mg Take 1 tablet by mouth after meals and at bedtime. [facility] metroNIDAZO LE (FLAGYL) 500 mg tablet 4-0 24 00:00: 00 Yes [id number] 500mg Take 1 tablet by mouth every 12 (twelve) hours. [facility] ibuprofen 600 mg tablet 4-0 24 00:00: 00 Yes [id number] 600mg Take 1 tablet by mouth every 6 (six) hours as needed for Pain (scale 1-3) or Pain (scale 4-6). [facility] simethicone 80 mg chewable tablet 4-0 24 00:00: 00 Yes [id number] 80mg Take 1 tablet by mouth after meals and at bedtime. [facility] metroNIDAZO LE (FLAGYL) 500 mg tablet 4-0 -24 00:00: 00 Yes [id number] 500mg Take 1 tablet by mouth every 12 (twelve) hours. [facility] ibuprofen 600 mg tablet 4-0 -24 00:00: 00 Yes [id number] 600mg Take 1 tablet by mouth every 6 (six) hours as needed for Pain (scale 1-3) or Pain (scale 4-6). [facility] simethicone 80 mg chewable tablet 4-0 -24 00:00: 00 Yes [id number] 80mg Take 1 tablet by mouth after meals and at bedtime. [facility] metroNIDAZO LE (FLAGYL) 500 mg tablet 4-0 -24 00:00: 00 Yes [id number] 500mg Take 1 tablet by mouth every 12 (twelve) hours. [facility] ibuprofen 600 mg tablet 4-0 -24 00:00: 00 Yes [id number] 600mg Take 1 tablet by mouth every 6 (six) hours as needed for Pain (scale 1-3) or Pain (scale 4-6). [facility] simethicone 80 mg chewable tablet 4-0 -24 00:00: 00 Yes [id number] 80mg Take 1 tablet by mouth after meals and at bedtime. [facility] metroNIDAZO LE (FLAGYL) 500 mg tablet 4-0 24 00:00: 00 Yes [id number] 500mg Take 1 tablet by mouth every 12 (twelve) hours. [facility] ibuprofen 600 mg tablet 4-0 24 00:00: 00 Yes [id number] 600mg Take 1 tablet by mouth every 6 (six) hours as needed for Pain (scale 1-3) or Pain (scale 4-6). [facility] simethicone 80 mg chewable tablet 4-0 24 00:00: 00 Yes [id number] 80mg Take 1 tablet by mouth after meals and at bedtime. [facility] metroNIDAZO LE (FLAGYL) 500 mg tablet 4-0 -24 00:00: 00 Yes [id number] 500mg Take 1 tablet by mouth every 12 (twelve) hours. [facility] ibuprofen 600 mg tablet 4-0 1-24 00:00: 00 Yes [id number] 600mg Take 1 tablet by mouth every 6 (six) hours as needed for Pain (scale 1-3) or Pain (scale 4-6). [facility] simethicone 80 mg chewable tablet 4-0 1-24 00:00: 00 Yes [id number] 80mg Take 1 tablet by mouth after meals and at bedtime. [facility] metroNIDAZO LE (FLAGYL) 500 mg tablet 4-0 1-24 00:00: 00 Yes [id number] 500mg Take 1 tablet by mouth every 12 (twelve) hours. [facility] ibuprofen 600 mg tablet 4-0 1-24 00:00: 00 Yes [id number] 600mg Take 1 tablet by mouth every 6 (six) hours as needed for Pain (scale 1-3) or Pain (scale 4-6). [facility] simethicone 80 mg chewable tablet 4-0 1-24 00:00: 00 Yes [id number] 80mg Take 1 tablet by mouth after meals and at bedtime. [facility] metroNIDAZO LE (FLAGYL) 500 mg tablet 4-0 -24 00:00: 00 Yes [id number] 500mg Take 1 tablet by mouth every 12 (twelve) hours. [facility] ibuprofen 600 mg tablet 4-0 -24 00:00: 00 Yes [id number] 600mg Take 1 tablet by mouth every 6 (six) hours as needed for Pain (scale 1-3) or Pain (scale 4-6). [facility] simethicone 80 mg chewable tablet 4-0 -24 00:00: 00 Yes [id number] 80mg Take 1 tablet by mouth after meals and at bedtime. [facility] metroNIDAZO LE (FLAGYL) 500 mg tablet 4-0 24 00:00: 00 Yes [id number] 500mg Take 1 tablet by mouth every 12 (twelve) hours. [facility] ibuprofen 600 mg tablet 4-0 -24 00:00: 00 Yes [id number] 600mg Take 1 tablet by mouth every 6 (six) hours as needed for Pain (scale 1-3) or Pain (scale 4-6). [facility] simethicone 80 mg chewable tablet 4-0 1-24 00:00: 00 Yes [id number] 80mg Take 1 tablet by mouth after meals and at bedtime. [facility] metroNIDAZO LE (FLAGYL) 500 mg tablet 2024-0 1-24 00:00: 00 Yes [id number] 500mg Take 1 tablet by mouth every 12 (twelve) hours. [facility] ibuprofen 600 mg tablet 4-0 1-24 00:00: 00 Yes [id number] 600mg Take 1 tablet by mouth every 6 (six) hours as needed for Pain (scale 1-3) or Pain (scale 4-6). [facility] simethicone 80 mg chewable tablet 4-0 1-24 00:00: 00 Yes [id number] 80mg Take 1 tablet by mouth after meals and at bedtime. [facility] metroNIDAZO LE (FLAGYL) 500 mg tablet 4-0 -24 00:00: 00 Yes [id number] 500mg Take 1 tablet by mouth every 12 (twelve) hours. [facility] ibuprofen 600 mg tablet 4-0 1-24 00:00: 00 Yes [id number] 600mg Take 1 tablet by mouth every 6 (six) hours as needed for Pain (scale 1-3) or Pain (scale 4-6). [facility] simethicone 80 mg chewable tablet 4-0 -24 00:00: 00 Yes [id number] 80mg Take 1 tablet by mouth after meals and at bedtime. [facility] metroNIDAZO LE (FLAGYL) 500 mg tablet 4-0 -24 00:00: 00 Yes [id number] 500mg Take 1 tablet by mouth every 12 (twelve) hours. [facility] ibuprofen 600 mg tablet 4-0 -24 00:00: 00 Yes [id number] 600mg Take 1 tablet by mouth every 6 (six) hours as needed for Pain (scale 1-3) or Pain (scale 4-6). [facility] simethicone 80 mg chewable tablet 4-0 -24 00:00: 00 Yes [id number] 80mg Take 1 tablet by mouth after meals and at bedtime. [facility] metroNIDAZO LE (FLAGYL) 500 mg tablet 4-0 1-24 00:00: 00 Yes [id number] 500mg Take 1 tablet by mouth every 12 (twelve) hours. [facility] ibuprofen 600 mg tablet 2024-0 1-24 00:00: 00 Yes [id number] 600mg Take 1 tablet by mouth every 6 (six) hours as needed for Pain (scale 1-3) or Pain (scale 4-6). [facility] simethicone 80 mg chewable tablet 09-02 00:00: 00 Yes [id number] 80mg Take 1 tablet by mouth after meals and at bedtime. [facility] metroNIDAZO LE (FLAGYL) 500 mg tablet 09-02 00:00: 00 Yes [id number] 500mg Take 1 tablet by mouth every 12 (twelve) hours. [facility] ibuprofen 600 mg tablet 09-02 00:00: 00 Yes [id number] 600mg Take 1 tablet by mouth every 6 (six) hours as needed for Pain (scale 1-3) or Pain (scale 4-6). [facility] simethicone 80 mg chewable tablet 09-02 00:00: 00 Yes [id number] 80mg Take 1 tablet by mouth after meals and at bedtime. [facility] metroNIDAZO LE (FLAGYL) 500 mg tablet 09-02 00:00: 00 Yes [id number] 500mg Take 1 tablet by mouth every 12 (twelve) hours. [facility] HYDROcodone -acetaminop hen 5-325 mg tablet 09-02 00:00: 00 09-05 05:59 :00 Yes [id number] 1{tbl} Take 1 tablet by mouth every 6 (six) hours as needed for Pain (scale 7-10) for up to 2 days. Indication s: acute pain [facility] HYDROcodone -acetaminop hen 5-325 mg tablet 09-02 00:00: 00 09-05 05:59 :00 Yes [id number] 1{tbl} Take 1 tablet by mouth every 6 (six) hours as needed for Pain (scale 7-10) for up to 2 days. Indication s: acute pain [facility] HYDROcodone -acetaminop hen 5-325 mg tablet 09-02 00:00: 00 09-05 05:59 :00 Yes [id number] 1{tbl} Take 1 tablet by mouth every 6 (six) hours as needed for Pain (scale 7-10) for up to 2 days. Indication s: acute pain [facility] HYDROcodone -acetaminop hen 5-325 mg tablet 09-02 00:00: 00 09-05 05:59 :00 Yes [id number] 1{tbl} Take 1 tablet by mouth every 6 (six) hours as needed for Pain (scale 7-10) for up to 2 days. Indication s: acute pain [facility] glecaprevir -pibrentasv ir (MAVYRET) 100-40 mg 08-31 09:40: 53 Yes 3{tbl} Take 3 tablets by mouth in the morning. [facility] glecaprevir -pibrentasv ir (MAVYRET) 100-40 mg 08-31 09:40: 53 Yes 3{tbl} Take 3 tablets by mouth in the morning. [facility] glecaprevir -pibrentasv ir (MAVYRET) 100-40 mg 08-31 09:40: 53 Yes 3{tbl} Take 3 tablets by mouth in the morning. [facility] glecaprevir -pibrentasv ir (MAVYRET) 100-40 mg 08-31 09:40: 53 Yes 3{tbl} Take 3 tablets by mouth in the morning. [facility] glecaprevir -pibrentasv ir (MAVYRET) 100-40 mg 08-31 09:40: 53 Yes 3{tbl} Take 3 tablets by mouth in the morning. [facility] glecaprevir -pibrentasv ir (MAVYRET) 100-40 mg 2023-0 08-31 09:40: 53 Yes 3{tbl} Take 3 tablets by mouth in the morning. [facility] glecaprevir -pibrentasv ir (MAVYRET) 100-40 mg 2023-0 08-31 09:40: 53 Yes 3{tbl} Take 3 tablets by mouth in the morning. [facility] topiramate 50 mg tablet 08-19 00:00: 00 Yes [id number] 50mg Take 1 tablet by mouth in the morning and 1 tablet in the evening. [facility] DULoxetine 20 mg capsule 2023-0 08-19 00:00: 00 Yes [id number] 20mg Take 1 capsule by mouth in the morning and 1 capsule in the evening. [facility] doxepin 100 mg capsule 2023-0 08-19 00:00: 00 Yes [id number] 100mg Take 1 capsule by mouth at bedtime. [facility] buPROPion SR (WELLBUTRIN SR) 150 mg SR tablet 2023-0 08-19 00:00: 00 Yes [id number] 150mg Take 1 tablet by mouth in the morning and 1 tablet in the evening. [facility] ARIPiprazol e (ABILIFY) 5 mg tablet 2023-0 08-19 00:00: 00 Yes [id number] 5mg Take 1 tablet by mouth in the morning. [facility] topiramate 50 mg tablet 2023-0 08-19 00:00: 00 Yes [id number] 50mg Take 1 tablet by mouth in the morning and 1 tablet in the evening. [facility] DULoxetine 20 mg capsule 2023-0 08-19 00:00: 00 Yes [id number] 20mg Take 1 capsule by mouth in the morning and 1 capsule in the evening. [facility] doxepin 100 mg capsule 2023-0 08-19 00:00: 00 Yes [id number] 100mg Take 1 capsule by mouth at bedtime. [facility] buPROPion SR (WELLBUTRIN SR) 150 mg SR tablet 2023-0 08-19 00:00: 00 Yes [id number] 150mg Take 1 tablet by mouth in the morning and 1 tablet in the evening. [facility] ARIPiprazol e (ABILIFY) 5 mg tablet 2023-0 08-19 00:00: 00 Yes [id number] 5mg Take 1 tablet by mouth in the morning. [facility] topiramate 50 mg tablet 2023-0 08-19 00:00: 00 Yes [id number] 50mg Take 1 tablet by mouth in the morning and 1 tablet in the evening. [facility] DULoxetine 20 mg capsule 2023-0 08-19 00:00: 00 Yes [id number] 20mg Take 1 capsule by mouth in the morning and 1 capsule in the evening. [facility] doxepin 100 mg capsule 2023-0 08-19 00:00: 00 Yes [id number] 100mg Take 1 capsule by mouth at bedtime. [facility] buPROPion SR (WELLBUTRIN SR) 150 mg SR tablet 0 08-19 00:00: 00 Yes [id number] 150mg Take 1 tablet by mouth in the morning and 1 tablet in the evening. [facility] ARIPiprazol e (ABILIFY) 5 mg tablet 0 08-19 00:00: 00 Yes [id number] 5mg Take 1 tablet by mouth in the morning. [facility] topiramate 50 mg tablet 0 08-19 00:00: 00 Yes [id number] 50mg Take 1 tablet by mouth in the morning and 1 tablet in the evening. [facility] DULoxetine 20 mg capsule 2023-0 08-19 00:00: 00 Yes [id number] 20mg Take 1 capsule by mouth in the morning and 1 capsule in the evening. [facility] doxepin 100 mg capsule 0 08-19 00:00: 00 Yes [id number] 100mg Take 1 capsule by mouth at bedtime. [facility] buPROPion SR (WELLBUTRIN SR) 150 mg SR tablet 0 08-19 00:00: 00 Yes [id number] 150mg Take 1 tablet by mouth in the morning and 1 tablet in the evening. [facility] ARIPiprazol e (ABILIFY) 5 mg tablet 0 08-19 00:00: 00 Yes [id number] 5mg Take 1 tablet by mouth in the morning. [facility] topiramate 50 mg tablet 2023-0 08-19 00:00: 00 Yes [id number] 50mg Take 1 tablet by mouth in the morning and 1 tablet in the evening. [facility] DULoxetine 20 mg capsule 2023-0 08-19 00:00: 00 Yes [id number] 20mg Take 1 capsule by mouth in the morning and 1 capsule in the evening. [facility] doxepin 100 mg capsule 2023-0 08-19 00:00: 00 Yes [id number] 100mg Take 1 capsule by mouth at bedtime. [facility] buPROPion SR (WELLBUTRIN SR) 150 mg SR tablet 0 08-19 00:00: 00 Yes [id number] 150mg Take 1 tablet by mouth in the morning and 1 tablet in the evening. [facility] ARIPiprazol e (ABILIFY) 5 mg tablet 0 08-19 00:00: 00 Yes [id number] 5mg Take 1 tablet by mouth in the morning. [facility] topiramate 50 mg tablet 08-19 00:00: 00 Yes [id number] 50mg Take 1 tablet by mouth in the morning and 1 tablet in the evening. [facility] DULoxetine 20 mg capsule 08-19 00:00: 00 Yes [id number] 20mg Take 1 capsule by mouth in the morning and 1 capsule in the evening. [facility] doxepin 100 mg capsule 2023-0 08-19 00:00: 00 Yes [id number] 100mg Take 1 capsule by mouth at bedtime. [facility] buPROPion SR (WELLBUTRIN SR) 150 mg SR tablet 2023-0 08-19 00:00: 00 Yes [id number] 150mg Take 1 tablet by mouth in the morning and 1 tablet in the evening. [facility] ARIPiprazol e (ABILIFY) 5 mg tablet 0 08-19 00:00: 00 Yes [id number] 5mg Take 1 tablet by mouth in the morning. [facility] topiramate 50 mg tablet 2023-0 08-19 00:00: 00 Yes [id number] 50mg Take 1 tablet by mouth in the morning and 1 tablet in the evening. [facility] DULoxetine 20 mg capsule 2023-0 08-19 00:00: 00 Yes [id number] 20mg Take 1 capsule by mouth in the morning and 1 capsule in the evening. [facility] doxepin 100 mg capsule 2023-0 08-19 00:00: 00 Yes [id number] 100mg Take 1 capsule by mouth at bedtime. [facility] buPROPion SR (WELLBUTRIN SR) 150 mg SR tablet 0 08-19 00:00: 00 Yes [id number] 150mg Take 1 tablet by mouth in the morning and 1 tablet in the evening. [facility] ARIPiprazol e (ABILIFY) 5 mg tablet 0 08-19 00:00: 00 Yes [id number] 5mg Take 1 tablet by mouth in the morning. [facility] topiramate 50 mg tablet 0 08-19 00:00: 00 Yes [id number] 50mg Take 1 tablet by mouth in the morning and 1 tablet in the evening. [facility] DULoxetine 20 mg capsule 08-19 00:00: 00 Yes [id number] 20mg Take 1 capsule by mouth in the morning and 1 capsule in the evening. [facility] doxepin 100 mg capsule 08-19 00:00: 00 Yes [id number] 100mg Take 1 capsule by mouth at bedtime. [facility] buPROPion SR (WELLBUTRIN SR) 150 mg SR tablet 0 08-19 00:00: 00 Yes [id number] 150mg Take 1 tablet by mouth in the morning and 1 tablet in the evening. [facility] ARIPiprazol e (ABILIFY) 5 mg tablet 0 08-19 00:00: 00 Yes [id number] 5mg Take 1 tablet by mouth in the morning. [facility] topiramate 50 mg tablet 08-19 00:00: 00 Yes [id number] 50mg Take 1 tablet by mouth in the morning and 1 tablet in the evening. [facility] DULoxetine 20 mg capsule 0 08-19 00:00: 00 Yes [id number] 20mg Take 1 capsule by mouth in the morning and 1 capsule in the evening. [facility] doxepin 100 mg capsule 2023-0 08-19 00:00: 00 Yes [id number] 100mg Take 1 capsule by mouth at bedtime. [facility] buPROPion SR (WELLBUTRIN SR) 150 mg SR tablet 08-19 00:00: 00 Yes [id number] 150mg Take 1 tablet by mouth in the morning and 1 tablet in the evening. [facility] ARIPiprazol e (ABILIFY) 5 mg tablet 08-19 00:00: 00 Yes [id number] 5mg Take 1 tablet by mouth in the morning. [facility] topiramate 50 mg tablet 08-19 00:00: 00 Yes [id number] 50mg Take 1 tablet by mouth in the morning and 1 tablet in the evening. [facility] DULoxetine 20 mg capsule 08-19 00:00: 00 Yes [id number] 20mg Take 1 capsule by mouth in the morning and 1 capsule in the evening. [facility] doxepin 100 mg capsule 08-19 00:00: 00 Yes [id number] 100mg Take 1 capsule by mouth at bedtime. [facility] buPROPion SR (WELLBUTRIN SR) 150 mg SR tablet 08-19 00:00: 00 Yes [id number] 150mg Take 1 tablet by mouth in the morning and 1 tablet in the evening. [facility] ARIPiprazol e (ABILIFY) 5 mg tablet 08-19 00:00: 00 Yes [id number] 5mg Take 1 tablet by mouth in the morning. [facility] topiramate 50 mg tablet 08-19 00:00: 00 Yes [id number] 50mg Take 1 tablet by mouth in the morning and 1 tablet in the evening. [facility] DULoxetine 20 mg capsule 08-19 00:00: 00 Yes [id number] 20mg Take 1 capsule by mouth in the morning and 1 capsule in the evening. [facility] doxepin 100 mg capsule 08-19 00:00: 00 Yes [id number] 100mg Take 1 capsule by mouth at bedtime. [facility] buPROPion SR (WELLBUTRIN SR) 150 mg SR tablet 08-19 00:00: 00 Yes [id number] 150mg Take 1 tablet by mouth in the morning and 1 tablet in the evening. [facility] ARIPiprazol e (ABILIFY) 5 mg tablet 08-19 00:00: 00 Yes [id number] 5mg Take 1 tablet by mouth in the morning. [facility] topiramate 50 mg tablet 0 08-19 00:00: 00 Yes [id number] 50mg Take 1 tablet by mouth in the morning and 1 tablet in the evening. [facility] DULoxetine 20 mg capsule 08-19 00:00: 00 Yes [id number] 20mg Take 1 capsule by mouth in the morning and 1 capsule in the evening. [facility] doxepin 100 mg capsule 08-19 00:00: 00 Yes [id number] 100mg Take 1 capsule by mouth at bedtime. [facility] buPROPion SR (WELLBUTRIN SR) 150 mg SR tablet 08-19 00:00: 00 Yes [id number] 150mg Take 1 tablet by mouth in the morning and 1 tablet in the evening. [facility] ARIPiprazol e (ABILIFY) 5 mg tablet 08-19 00:00: 00 Yes [id number] 5mg Take 1 tablet by mouth in the morning. [facility] topiramate 50 mg tablet 08-19 00:00: 00 Yes [id number] 50mg Take 1 tablet by mouth in the morning and 1 tablet in the evening. [facility] DULoxetine 20 mg capsule 0 08-19 00:00: 00 Yes [id number] 20mg Take 1 capsule by mouth in the morning and 1 capsule in the evening. [facility] doxepin 100 mg capsule 0 08-19 00:00: 00 Yes [id number] 100mg Take 1 capsule by mouth at bedtime. [facility] buPROPion SR (WELLBUTRIN SR) 150 mg SR tablet 08-19 00:00: 00 Yes [id number] 150mg Take 1 tablet by mouth in the morning and 1 tablet in the evening. [facility] ARIPiprazol e (ABILIFY) 5 mg tablet 2023-0 08-19 00:00: 00 Yes [id number] 5mg Take 1 tablet by mouth in the morning. [facility] topiramate 50 mg tablet 2023-0 08-19 00:00: 00 Yes [id number] 50mg Take 1 tablet by mouth in the morning and 1 tablet in the evening. [facility] DULoxetine 20 mg capsule 2023-0 08-19 00:00: 00 Yes [id number] 20mg Take 1 capsule by mouth in the morning and 1 capsule in the evening. [facility] doxepin 100 mg capsule 0 08-19 00:00: 00 Yes [id number] 100mg Take 1 capsule by mouth at bedtime. [facility] buPROPion SR (WELLBUTRIN SR) 150 mg SR tablet 08-19 00:00: 00 Yes [id number] 150mg Take 1 tablet by mouth in the morning and 1 tablet in the evening. [facility] ARIPiprazol e (ABILIFY) 5 mg tablet 2023-0 08-19 00:00: 00 Yes [id number] 5mg Take 1 tablet by mouth in the morning. [facility] topiramate 50 mg tablet 0 08-19 00:00: 00 Yes [id number] 50mg Take 1 tablet by mouth in the morning and 1 tablet in the evening. [facility] DULoxetine 20 mg capsule 2023-0 08-19 00:00: 00 Yes [id number] 20mg Take 1 capsule by mouth in the morning and 1 capsule in the evening. [facility] doxepin 100 mg capsule 2023-0 08-19 00:00: 00 Yes [id number] 100mg Take 1 capsule by mouth at bedtime. [facility] buPROPion SR (WELLBUTRIN SR) 150 mg SR tablet 0 08-19 00:00: 00 Yes [id number] 150mg Take 1 tablet by mouth in the morning and 1 tablet in the evening. [facility] ARIPiprazol e (ABILIFY) 5 mg tablet 2023-0 08-19 00:00: 00 Yes [id number] 5mg Take 1 tablet by mouth in the morning. [facility] topiramate 50 mg tablet 2023-0 08-19 00:00: 00 Yes [id number] 50mg Take 1 tablet by mouth in the morning and 1 tablet in the evening. [facility] DULoxetine 20 mg capsule 2023-0 08-19 00:00: 00 Yes [id number] 20mg Take 1 capsule by mouth in the morning and 1 capsule in the evening. [facility] doxepin 100 mg capsule 0 08-19 00:00: 00 Yes [id number] 100mg Take 1 capsule by mouth at bedtime. [facility] buPROPion SR (WELLBUTRIN SR) 150 mg SR tablet 0 08-19 00:00: 00 Yes [id number] 150mg Take 1 tablet by mouth in the morning and 1 tablet in the evening. [facility] ARIPiprazol e (ABILIFY) 5 mg tablet 0 08-19 00:00: 00 Yes [id number] 5mg Take 1 tablet by mouth in the morning. [facility] topiramate 50 mg tablet 2023-0 08-19 00:00: 00 Yes [id number] 50mg Take 1 tablet by mouth in the morning and 1 tablet in the evening. [facility] DULoxetine 20 mg capsule 2023-0 08-19 00:00: 00 Yes [id number] 20mg Take 1 capsule by mouth in the morning and 1 capsule in the evening. [facility] doxepin 100 mg capsule 2023-0 08-19 00:00: 00 Yes [id number] 100mg Take 1 capsule by mouth at bedtime. [facility] buPROPion SR (WELLBUTRIN SR) 150 mg SR tablet 2023-0 08-19 00:00: 00 Yes [id number] 150mg Take 1 tablet by mouth in the morning and 1 tablet in the evening. [facility] ARIPiprazol e (ABILIFY) 5 mg tablet 2023-0 08-19 00:00: 00 Yes [id number] 5mg Take 1 tablet by mouth in the morning. [facility] topiramate 50 mg tablet 2023-0 08-19 00:00: 00 Yes [id number] 50mg Take 1 tablet by mouth in the morning and 1 tablet in the evening. [facility] DULoxetine 20 mg capsule 2023-0 08-19 00:00: 00 Yes [id number] 20mg Take 1 capsule by mouth in the morning and 1 capsule in the evening. [facility] doxepin 100 mg capsule 0 08-19 00:00: 00 Yes [id number] 100mg Take 1 capsule by mouth at bedtime. [facility] buPROPion SR (WELLBUTRIN SR) 150 mg SR tablet 08-19 00:00: 00 Yes [id number] 150mg Take 1 tablet by mouth in the morning and 1 tablet in the evening. [facility] ARIPiprazol e (ABILIFY) 5 mg tablet 08-19 00:00: 00 Yes [id number] 5mg Take 1 tablet by mouth in the morning. [facility] [facility]19 00:00: 00 Yes [id number] 50mg Take 1 tablet by mouth in the morning and 1 tablet in the evening. [facility] DULoxetine 20 mg capsule 2023-0 08-19 00:00: 00 Yes [id number] 20mg Take 1 capsule by mouth in the morning and 1 capsule in the evening. [facility] doxepin 100 mg capsule 2023-08-19 00:00: 00 Yes [id number] 100mg Take 1 capsule by mouth at bedtime. [facility] buPROPion SR (WELLBUTRIN SR) 150 mg SR tablet 0 08-19 00:00: 00 Yes [id number] 150mg Take 1 tablet by mouth in the morning and 1 tablet in the evening. [facility] ARIPiprazol e (ABILIFY) 5 mg tablet 08-19 00:00: 00 Yes [id number] 5mg Take 1 tablet by mouth in the morning. [facility] topiramate 50 mg tablet 2023-0 08-19 00:00: 00 Yes [id number] 50mg Take 1 tablet by mouth in the morning and 1 tablet in the evening. [facility] DULoxetine 20 mg capsule 2023-0 08-19 00:00: 00 Yes [id number] 20mg Take 1 capsule by mouth in the morning and 1 capsule in the evening. [facility] doxepin 100 mg capsule 0 08-19 00:00: 00 Yes [id number] 100mg Take 1 capsule by mouth at bedtime. [facility] buPROPion SR (WELLBUTRIN SR) 150 mg SR tablet 0 08-19 00:00: 00 Yes [id number] 150mg Take 1 tablet by mouth in the morning and 1 tablet in the evening. [facility] ARIPiprazol e (ABILIFY) 5 mg tablet 08-19 00:00: 00 Yes [id number] 5mg Take 1 tablet by mouth in the morning. [facility] topiramate 50 mg tablet 08-19 00:00: 00 Yes [id number] 50mg Take 1 tablet by mouth in the morning and 1 tablet in the evening. [facility] DULoxetine 20 mg capsule 0 08-19 00:00: 00 Yes [id number] 20mg Take 1 capsule by mouth in the morning and 1 capsule in the evening. [facility] doxepin 100 mg capsule 0 08-19 00:00: 00 Yes [id number] 100mg Take 1 capsule by mouth at bedtime. [facility] buPROPion SR (WELLBUTRIN SR) 150 mg SR tablet 0 08-19 00:00: 00 Yes [id number] 150mg Take 1 tablet by mouth in the morning and 1 tablet in the evening. [facility] ARIPiprazol e (ABILIFY) 5 mg tablet 0 08-19 00:00: 00 Yes [id number] 5mg Take 1 tablet by mouth in the morning. [facility] topiramate 50 mg tablet 0 08-19 00:00: 00 Yes [id number] 50mg Take 1 tablet by mouth in the morning and 1 tablet in the evening. [facility] DULoxetine 20 mg capsule 2023-0 08-19 00:00: 00 Yes [id number] 20mg Take 1 capsule by mouth in the morning and 1 capsule in the evening. [facility] doxepin 100 mg capsule 0 08-19 00:00: 00 Yes [id number] 100mg Take 1 capsule by mouth at bedtime. [facility] buPROPion SR (WELLBUTRIN SR) 150 mg SR tablet 0 08-19 00:00: 00 Yes [id number] 150mg Take 1 tablet by mouth in the morning and 1 tablet in the evening. [facility] ARIPiprazol e (ABILIFY) 5 mg tablet 08-19 00:00: 00 Yes [id number] 5mg Take 1 tablet by mouth in the morning. [facility] topiramate 50 mg tablet 0 08-19 00:00: 00 Yes [id number] 50mg Take 1 tablet by mouth in the morning and 1 tablet in the evening. [facility] DULoxetine 20 mg capsule 0 08-19 00:00: 00 Yes [id number] 20mg Take 1 capsule by mouth in the morning and 1 capsule in the evening. [facility] doxepin 100 mg capsule 0 08-19 00:00: 00 Yes [id number] 100mg Take 1 capsule by mouth at bedtime. [facility] buPROPion SR (WELLBUTRIN SR) 150 mg SR tablet 0 08-19 00:00: 00 Yes [id number] 150mg Take 1 tablet by mouth in the morning and 1 tablet in the evening. [facility] ARIPiprazol e (ABILIFY) 5 mg tablet 0 08-19 00:00: 00 Yes [id number] 5mg Take 1 tablet by mouth in the morning. [facility] topiramate 50 mg tablet 0 08-19 00:00: 00 Yes [id number] 50mg Take 1 tablet by mouth in the morning and 1 tablet in the evening. [facility] DULoxetine 20 mg capsule 2023-0 08-19 00:00: 00 Yes [id number] 20mg Take 1 capsule by mouth in the morning and 1 capsule in the evening. [facility] doxepin 100 mg capsule 0 08-19 00:00: 00 Yes [id number] 100mg Take 1 capsule by mouth at bedtime. [facility] buPROPion SR (WELLBUTRIN SR) 150 mg SR tablet 08-19 00:00: 00 Yes [id number] 150mg Take 1 tablet by mouth in the morning and 1 tablet in the evening. [facility] ARIPiprazol e (ABILIFY) 5 mg tablet 08-19 00:00: 00 Yes [id number] 5mg Take 1 tablet by mouth in the morning. [facility] topiramate 50 mg tablet 08-19 00:00: 00 Yes [id number] 50mg Take 1 tablet by mouth in the morning and 1 tablet in the evening. [facility] DULoxetine 20 mg capsule 08-19 00:00: 00 Yes [id number] 20mg Take 1 capsule by mouth in the morning and 1 capsule in the evening. [facility] doxepin 100 mg capsule 08-19 00:00: 00 Yes [id number] 100mg Take 1 capsule by mouth at bedtime. [facility] buPROPion SR (WELLBUTRIN SR) 150 mg SR tablet 08-19 00:00: 00 Yes [id number] 150mg Take 1 tablet by mouth in the morning and 1 tablet in the evening. [facility] ARIPiprazol e (ABILIFY) 5 mg tablet 08-19 00:00: 00 Yes [id number] 5mg Take 1 tablet by mouth in the morning. [facility] topiramate 50 mg tablet 08-19 00:00: 00 Yes [id number] 50mg Take 1 tablet by mouth in the morning and 1 tablet in the evening. [facility] DULoxetine 20 mg capsule 08-19 00:00: 00 Yes [id number] 20mg Take 1 capsule by mouth in the morning and 1 capsule in the evening. [facility] doxepin 100 mg capsule 08-19 00:00: 00 Yes [id number] 100mg Take 1 capsule by mouth at bedtime. [facility] buPROPion SR (WELLBUTRIN SR) 150 mg SR tablet 2023-0 08-19 00:00: 00 Yes [id number] 150mg Take 1 tablet by mouth in the morning and 1 tablet in the evening. [facility] ARIPiprazol e (ABILIFY) 5 mg tablet 2023-0 08-19 00:00: 00 Yes [id number] 5mg Take 1 tablet by mouth in the morning. [facility] topiramate 50 mg tablet 08-19 00:00: 00 Yes [id number] 50mg Take 1 tablet by mouth in the morning and 1 tablet in the evening. [facility] DULoxetine 20 mg capsule 08-19 00:00: 00 Yes [id number] 20mg Take 1 capsule by mouth in the morning and 1 capsule in the evening. [facility] doxepin 100 mg capsule 08-19 00:00: 00 Yes [id number] 100mg Take 1 capsule by mouth at bedtime. [facility] buPROPion SR (WELLBUTRIN SR) 150 mg SR tablet 08-19 00:00: 00 Yes [id number] 150mg Take 1 tablet by mouth in the morning and 1 tablet in the evening. [facility] ARIPiprazol e (ABILIFY) 5 mg tablet 08-19 00:00: 00 Yes [id number] 5mg Take 1 tablet by mouth in the morning. [facility] topiramate 50 mg tablet 08-19 00:00: 00 Yes [id number] 50mg Take 1 tablet by mouth in the morning and 1 tablet in the evening. [facility] DULoxetine 20 mg capsule 08-19 00:00: 00 Yes [id number] 20mg Take 1 capsule by mouth in the morning and 1 capsule in the evening. [facility] doxepin 100 mg capsule 08-19 00:00: 00 Yes [id number] 100mg Take 1 capsule by mouth at bedtime. [facility] buPROPion SR (WELLBUTRIN SR) 150 mg SR tablet 2023-0 08-19 00:00: 00 Yes [id number] 150mg Take 1 tablet by mouth in the morning and 1 tablet in the evening. [facility] ARIPiprazol e (ABILIFY) 5 mg tablet 0 08-19 00:00: 00 Yes [id number] 5mg Take 1 tablet by mouth in the morning. [facility] topiramate 50 mg tablet 0 08-19 00:00: 00 Yes [id number] 50mg Take 1 tablet by mouth in the morning and 1 tablet in the evening. [facility] DULoxetine 20 mg capsule 0 08-19 00:00: 00 Yes [id number] 20mg Take 1 capsule by mouth in the morning and 1 capsule in the evening. [facility] doxepin 100 mg capsule 08-19 00:00: 00 Yes [id number] 100mg Take 1 capsule by mouth at bedtime. [facility] buPROPion SR (WELLBUTRIN SR) 150 mg SR tablet 08-19 00:00: 00 Yes [id number] 150mg Take 1 tablet by mouth in the morning and 1 tablet in the evening. [facility] ARIPiprazol e (ABILIFY) 5 mg tablet 0 08-19 00:00: 00 Yes [id number] 5mg Take 1 tablet by mouth in the morning. [facility] topiramate 50 mg tablet 08-19 00:00: 00 Yes [id number] 50mg Take 1 tablet by mouth in the morning and 1 tablet in the evening. [facility] DULoxetine 20 mg capsule 0 08-19 00:00: 00 Yes [id number] 20mg Take 1 capsule by mouth in the morning and 1 capsule in the evening. [facility] doxepin 100 mg capsule 0 08-19 00:00: 00 Yes [id number] 100mg Take 1 capsule by mouth at bedtime. [facility] buPROPion SR (WELLBUTRIN SR) 150 mg SR tablet 2023-0 08-19 00:00: 00 Yes [id number] 150mg Take 1 tablet by mouth in the morning and 1 tablet in the evening. [facility] ARIPiprazol e (ABILIFY) 5 mg tablet 2023-0 08-19 00:00: 00 Yes [id number] 5mg Take 1 tablet by mouth in the morning. [facility] topiramate 50 mg tablet 0 08-19 00:00: 00 Yes [id number] 50mg Take 1 tablet by mouth in the morning and 1 tablet in the evening. [facility] DULoxetine 20 mg capsule 0 08-19 00:00: 00 Yes [id number] 20mg Take 1 capsule by mouth in the morning and 1 capsule in the evening. [facility] doxepin 100 mg capsule 0 08-19 00:00: 00 Yes [id number] 100mg Take 1 capsule by mouth at bedtime. [facility] buPROPion SR (WELLBUTRIN SR) 150 mg SR tablet 08-19 00:00: 00 Yes [id number] 150mg Take 1 tablet by mouth in the morning and 1 tablet in the evening. [facility] ARIPiprazol e (ABILIFY) 5 mg tablet 08-19 00:00: 00 Yes [id number] 5mg Take 1 tablet by mouth in the morning. [facility] topiramate 50 mg tablet 0 08-19 00:00: 00 Yes [id number] 50mg Take 1 tablet by mouth in the morning and 1 tablet in the evening. [facility] DULoxetine 20 mg capsule 0 08-19 00:00: 00 Yes [id number] 20mg Take 1 capsule by mouth in the morning and 1 capsule in the evening. [facility] doxepin 100 mg capsule 08-19 00:00: 00 Yes [id number] 100mg Take 1 capsule by mouth at bedtime. [facility] buPROPion SR (WELLBUTRIN SR) 150 mg SR tablet 0 08-19 00:00: 00 Yes [id number] 150mg Take 1 tablet by mouth in the morning and 1 tablet in the evening. [facility] ARIPiprazol e (ABILIFY) 5 mg tablet 0 08-19 00:00: 00 Yes [id number] 5mg Take 1 tablet by mouth in the morning. [facility] topiramate 50 mg tablet 2023-0 08-19 00:00: 00 Yes [id number] 50mg Take 1 tablet by mouth in the morning and 1 tablet in the evening. [facility] DULoxetine 20 mg capsule 0 08-19 00:00: 00 Yes [id number] 20mg Take 1 capsule by mouth in the morning and 1 capsule in the evening. [facility] doxepin 100 mg capsule 0 08-19 00:00: 00 Yes [id number] 100mg Take 1 capsule by mouth at bedtime. [facility] buPROPion SR (WELLBUTRIN SR) 150 mg SR tablet 0 08-19 00:00: 00 Yes [id number] 150mg Take 1 tablet by mouth in the morning and 1 tablet in the evening. [facility] ARIPiprazol e (ABILIFY) 5 mg tablet 0 08-19 00:00: 00 Yes [id number] 5mg Take 1 tablet by mouth in the morning. [facility] topiramate 50 mg tablet 0 08-19 00:00: 00 Yes [id number] 50mg Take 1 tablet by mouth in the morning and 1 tablet in the evening. [facility] DULoxetine 20 mg capsule 0 08-19 00:00: 00 Yes [id number] 20mg Take 1 capsule by mouth in the morning and 1 capsule in the evening. [facility] doxepin 100 mg capsule 0 08-19 00:00: 00 Yes [id number] 100mg Take 1 capsule by mouth at bedtime. [facility] buPROPion SR (WELLBUTRIN SR) 150 mg SR tablet 0 08-19 00:00: 00 Yes [id number] 150mg Take 1 tablet by mouth in the morning and 1 tablet in the evening. [facility] ARIPiprazol e (ABILIFY) 5 mg tablet 2023-0 08-19 00:00: 00 Yes [id number] 5mg Take 1 tablet by mouth in the morning. [facility] topiramate 50 mg tablet 2023-0 08-19 00:00: 00 Yes [id number] 50mg Take 1 tablet by mouth in the morning and 1 tablet in the evening. [facility] DULoxetine 20 mg capsule 2023-0 08-19 00:00: 00 Yes [id number] 20mg Take 1 capsule by mouth in the morning and 1 capsule in the evening. [facility] doxepin 100 mg capsule 0 08-19 00:00: 00 Yes [id number] 100mg Take 1 capsule by mouth at bedtime. [facility] buPROPion SR (WELLBUTRIN SR) 150 mg SR tablet 08-19 00:00: 00 Yes [id number] 150mg Take 1 tablet by mouth in the morning and 1 tablet in the evening. [facility] ARIPiprazol e (ABILIFY) 5 mg tablet 08-19 00:00: 00 Yes [id number] 5mg Take 1 tablet by mouth in the morning. [facility] topiramate 50 mg tablet 08-19 00:00: 00 Yes [id number] 50mg Take 1 tablet by mouth in the morning and 1 tablet in the evening. [facility] DULoxetine 20 mg capsule 08-19 00:00: 00 Yes [id number] 20mg Take 1 capsule by mouth in the morning and 1 capsule in the evening. [facility] doxepin 100 mg capsule 08-19 00:00: 00 Yes [id number] 100mg Take 1 capsule by mouth at bedtime. [facility] buPROPion SR (WELLBUTRIN SR) 150 mg SR tablet 08-19 00:00: 00 Yes [id number] 150mg Take 1 tablet by mouth in the morning and 1 tablet in the evening. [facility] ARIPiprazol e (ABILIFY) 5 mg tablet 0 08-19 00:00: 00 Yes [id number] 5mg Take 1 tablet by mouth in the morning. [facility] topiramate 50 mg tablet 2023-0 08-19 00:00: 00 Yes [id number] 50mg Take 1 tablet by mouth in the morning and 1 tablet in the evening. [facility] DULoxetine 20 mg capsule 0 08-19 00:00: 00 Yes [id number] 20mg Take 1 capsule by mouth in the morning and 1 capsule in the evening. [facility] doxepin 100 mg capsule 2023-0 08-19 00:00: 00 Yes [id number] 100mg Take 1 capsule by mouth at bedtime. [facility] buPROPion SR (WELLBUTRIN SR) 150 mg SR tablet 2023-0 08-19 00:00: 00 Yes [id number] 150mg Take 1 tablet by mouth in the morning and 1 tablet in the evening. [facility] ARIPiprazol e (ABILIFY) 5 mg tablet 2023-0 08-19 00:00: 00 Yes [id number] 5mg Take 1 tablet by mouth in the morning. [facility] topiramate 50 mg tablet 2023-0 08-19 00:00: 00 Yes [id number] 50mg Take 1 tablet by mouth in the morning and 1 tablet in the evening. [facility] DULoxetine 20 mg capsule 2023-0 08-19 00:00: 00 Yes [id number] 20mg Take 1 capsule by mouth in the morning and 1 capsule in the evening. [facility] doxepin 100 mg capsule 2023-0 08-19 00:00: 00 Yes [id number] 100mg Take 1 capsule by mouth at bedtime. [facility] buPROPion SR (WELLBUTRIN SR) 150 mg SR tablet 2023-0 08-19 00:00: 00 Yes [id number] 150mg Take 1 tablet by mouth in the morning and 1 tablet in the evening. [facility] ARIPiprazol e (ABILIFY) 5 mg tablet 2023-0 08-19 00:00: 00 Yes [id number] 5mg Take 1 tablet by mouth in the morning. [facility] topiramate 50 mg tablet 2023-0 08-19 00:00: 00 Yes [id number] 50mg Take 1 tablet by mouth in the morning and 1 tablet in the evening. [facility] DULoxetine 20 mg capsule 2023-0 08-19 00:00: 00 Yes [id number] 20mg Take 1 capsule by mouth in the morning and 1 capsule in the evening. [facility] doxepin 100 mg capsule 2023-0 08-19 00:00: 00 Yes [id number] 100mg Take 1 capsule by mouth at bedtime. [facility] buPROPion SR (WELLBUTRIN SR) 150 mg SR tablet 2023-0 08-19 00:00: 00 Yes [id number] 150mg Take 1 tablet by mouth in the morning and 1 tablet in the evening. [facility] ARIPiprazol e (ABILIFY) 5 mg tablet 0 08-19 00:00: 00 Yes [id number] 5mg Take 1 tablet by mouth in the morning. [facility] topiramate 50 mg tablet 0 08-19 00:00: 00 Yes [id number] 50mg Take 1 tablet by mouth in the morning and 1 tablet in the evening. [facility] DULoxetine 20 mg capsule 0 08-19 00:00: 00 Yes [id number] 20mg Take 1 capsule by mouth in the morning and 1 capsule in the evening. [facility] doxepin 100 mg capsule 0 08-19 00:00: 00 Yes [id number] 100mg Take 1 capsule by mouth at bedtime. [facility] buPROPion SR (WELLBUTRIN SR) 150 mg SR tablet 08-19 00:00: 00 Yes [id number] 150mg Take 1 tablet by mouth in the morning and 1 tablet in the evening. [facility] ARIPiprazol e (ABILIFY) 5 mg tablet 0 08-19 00:00: 00 Yes [id number] 5mg Take 1 tablet by mouth in the morning. [facility] topiramate 50 mg tablet 0 08-19 00:00: 00 Yes [id number] 50mg Take 1 tablet by mouth in the morning and 1 tablet in the evening. [facility] DULoxetine 20 mg capsule 2023-0 08-19 00:00: 00 Yes [id number] 20mg Take 1 capsule by mouth in the morning and 1 capsule in the evening. [facility] doxepin 100 mg capsule 2023-0 08-19 00:00: 00 Yes [id number] 100mg Take 1 capsule by mouth at bedtime. [facility] buPROPion SR (WELLBUTRIN SR) 150 mg SR tablet 08-19 00:00: 00 Yes [id number] 150mg Take 1 tablet by mouth in the morning and 1 tablet in the evening. [facility] ARIPiprazol e (ABILIFY) 5 mg tablet 08-19 00:00: 00 Yes [id number] 5mg Take 1 tablet by mouth in the morning. [facility] topiramate 50 mg tablet 08-19 00:00: 00 Yes [id number] 50mg Take 1 tablet by mouth in the morning and 1 tablet in the evening. [facility] DULoxetine 20 mg capsule 08-19 00:00: 00 Yes [id number] 20mg Take 1 capsule by mouth in the morning and 1 capsule in the evening. [facility] doxepin 100 mg capsule 08-19 00:00: 00 Yes [id number] 100mg Take 1 capsule by mouth at bedtime. [facility] buPROPion SR (WELLBUTRIN SR) 150 mg SR tablet 08-19 00:00: 00 Yes [id number] 150mg Take 1 tablet by mouth in the morning and 1 tablet in the evening. [facility] ARIPiprazol e (ABILIFY) 5 mg tablet 08-19 00:00: 00 Yes [id number] 5mg Take 1 tablet by mouth in the morning. [facility] glecaprevir -pibrentasv ir 100-40 mg 2022-08 2-15 00:00: 00 Yes [id number] 3{tbl} Take 3 tablets by mouth in the morning. [facility] glecaprevir -pibrentasv ir 100-40 mg 2022-08 2-15 00:00: 00 Yes [id number] 3{tbl} Take 3 tablets by mouth in the morning. [facility] glecaprevir -pibrentasv ir 100-40 mg 2022-08 2-15 00:00: 00 Yes [id number] 3{tbl} Take 3 tablets by mouth in the morning. [facility] glecaprevir -pibrentasv ir 100-40 mg 3-1 2-15 00:00: 00 Yes [id number] 3{tbl} Take 3 tablets by mouth in the morning. [facility] glecaprevir -pibrentasv ir 100-40 mg 3-1 2-15 00:00: 00 Yes [id number] 3{tbl} Take 3 tablets by mouth in the morning. [facility] glecaprevir -pibrentasv ir 100-40 mg 3-1 2-15 00:00: 00 Yes [id number] 3{tbl} Take 3 tablets by mouth in the morning. [facility] glecaprevir -pibrentasv ir 100-40 mg 3- 2-15 00:00: 00 Yes [id number] 3{tbl} Take 3 tablets by mouth in the morning. [facility] glecaprevir -pibrentasv ir 100-40 mg 3-1 2-15 00:00: 00 Yes [id number] 3{tbl} Take 3 tablets by mouth in the morning. [facility] glecaprevir -pibrentasv ir 100-40 mg 3- 2-15 00:00: 00 Yes [id number] 3{tbl} Take 3 tablets by mouth in the morning. [facility] glecaprevir -pibrentasv ir 100-40 mg 3-1 2-15 00:00: 00 Yes [id number] 3{tbl} Take 3 tablets by mouth in the morning. [facility] glecaprevir -pibrentasv ir 100-40 mg 3-1 2-15 00:00: 00 Yes [id number] 3{tbl} Take 3 tablets by mouth in the morning. [facility] glecaprevir -pibrentasv ir 100-40 mg 3-1 2-15 00:00: 00 Yes [id number] 3{tbl} Take 3 tablets by mouth in the morning. [facility] glecaprevir -pibrentasv ir 100-40 mg 2023-1 2-15 00:00: 00 Yes [id number] 3{tbl} Take 3 tablets by mouth in the morning. [facility] glecaprevir -pibrentasv ir 100-40 mg 2023-1 2-15 00:00: 00 Yes [id number] 3{tbl} Take 3 tablets by mouth in the morning. [facility] glecaprevir -pibrentasv ir 100-40 mg 3-1 2-15 00:00: 00 Yes [id number] 3{tbl} Take 3 tablets by mouth in the morning. [facility] glecaprevir -pibrentasv ir 100-40 mg 3-1 2-15 00:00: 00 Yes [id number] 3{tbl} Take 3 tablets by mouth in the morning. [facility] glecaprevir -pibrentasv ir 100-40 mg 3-1 2-15 00:00: 00 Yes [id number] 3{tbl} Take 3 tablets by mouth in the morning. [facility] glecaprevir -pibrentasv ir 100-40 mg 3-1 2-15 00:00: 00 Yes [id number] 3{tbl} Take 3 tablets by mouth in the morning. [facility] glecaprevir -pibrentasv ir 100-40 mg 3-1 2-15 00:00: 00 Yes [id number] 3{tbl} Take 3 tablets by mouth in the morning. [facility] glecaprevir -pibrentasv ir 100-40 mg 3-1 2-15 00:00: 00 Yes [id number] 3{tbl} Take 3 tablets by mouth in the morning. [facility] glecaprevir -pibrentasv ir 100-40 mg 3-1 2-15 00:00: 00 Yes [id number] 3{tbl} Take 3 tablets by mouth in the morning. [facility] glecaprevir -pibrentasv ir 100-40 mg 3-1 2-15 00:00: 00 Yes [id number] 3{tbl} Take 3 tablets by mouth in the morning. [facility] glecaprevir -pibrentasv ir 100-40 mg 3-1 2-15 00:00: 00 Yes [id number] 3{tbl} Take 3 tablets by mouth in the morning. [facility] glecaprevir -pibrentasv ir 100-40 mg 2023-1 2-15 00:00: 00 Yes [id number] 3{tbl} Take 3 tablets by mouth in the morning. [facility] glecaprevir -pibrentasv ir 100-40 mg 3-1 2-15 00:00: 00 Yes [id number] 3{tbl} Take 3 tablets by mouth in the morning. [facility] glecaprevir -pibrentasv ir 100-40 mg 3-1 2-15 00:00: 00 Yes [id number] 3{tbl} Take 3 tablets by mouth in the morning. [facility] glecaprevir -pibrentasv ir 100-40 mg 3-1 2-15 00:00: 00 Yes [id number] 3{tbl} Take 3 tablets by mouth in the morning. [facility] glecaprevir -pibrentasv ir 100-40 mg 3-1 2-15 00:00: 00 Yes [id number] 3{tbl} Take 3 tablets by mouth in the morning. [facility] glecaprevir -pibrentasv ir 100-40 mg 3-1 2-15 00:00: 00 Yes [id number] 3{tbl} Take 3 tablets by mouth in the morning. [facility] glecaprevir -pibrentasv ir 100-40 mg 3-1 2-15 00:00: 00 Yes [id number] 3{tbl} Take 3 tablets by mouth in the morning. [facility] glecaprevir -pibrentasv ir 100-40 mg 3-1 2-15 00:00: 00 Yes [id number] 3{tbl} Take 3 tablets by mouth in the morning. [facility] glecaprevir -pibrentasv ir 100-40 mg 3-1 2-15 00:00: 00 Yes [id number] 3{tbl} Take 3 tablets by mouth in the morning. [facility] glecaprevir -pibrentasv ir 100-40 mg 3-1 2-15 00:00: 00 Yes [id number] 3{tbl} Take 3 tablets by mouth in the morning. [facility] glecaprevir -pibrentasv ir 100-40 mg 3-1 2-15 00:00: 00 Yes [id number] 3{tbl} Take 3 tablets by mouth in the morning. [facility] glecaprevir -pibrentasv ir 100-40 mg 3-1 2-15 00:00: 00 Yes [id number] 3{tbl} Take 3 tablets by mouth in the morning. [facility] glecaprevir -pibrentasv ir 100-40 mg 3-1 2-15 00:00: 00 Yes [id number] 3{tbl} Take 3 tablets by mouth in the morning. [facility] glecaprevir -pibrentasv ir 100-40 mg 3-1 2-15 00:00: 00 Yes [id number] 3{tbl} Take 3 tablets by mouth in the morning. [facility] glecaprevir -pibrentasv ir 100-40 mg 3-1 2-15 00:00: 00 Yes [id number] 3{tbl} Take 3 tablets by mouth in the morning. [facility] glecaprevir -pibrentasv ir 100-40 mg 3-1 2-15 00:00: 00 Yes [id number] 3{tbl} Take 3 tablets by mouth in the morning. [facility] glecaprevir -pibrentasv ir 100-40 mg 3-1 2-15 00:00: 00 Yes [id number] 3{tbl} Take 3 tablets by mouth in the morning. [facility] glecaprevir -pibrentasv ir 100-40 mg 3-1 2-15 00:00: 00 Yes [id number] 3{tbl} Take 3 tablets by mouth in the morning. [facility] glecaprevir -pibrentasv ir 100-40 mg 2023-1 2-15 00:00: 00 Yes [id number] 3{tbl} Take 3 tablets by mouth in the morning. [facility] glecaprevir -pibrentasv ir 100-40 mg 3-1 2-15 00:00: 00 Yes [id number] 3{tbl} Take 3 tablets by mouth in the morning. [facility] glecaprevir -pibrentasv ir 100-40 mg 3-1 2-15 00:00: 00 Yes [id number] 3{tbl} Take 3 tablets by mouth in the morning. [facility] glecaprevir -pibrentasv ir 100-40 mg 3-1 2-15 00:00: 00 Yes [id number] 3{tbl} Take 3 tablets by mouth in the morning. [facility] glecaprevir -pibrentasv ir 100-40 mg 3-1 2-15 00:00: 00 Yes [id number] 3{tbl} Take 3 tablets by mouth in the morning. [facility] glecaprevir -pibrentasv ir 100-40 mg 3-1 2-15 00:00: 00 Yes [id number] 3{tbl} Take 3 tablets by mouth in the morning. [facility] glecaprevir -pibrentasv ir 100-40 mg 3-1 2-15 00:00: 00 Yes [id number] 3{tbl} Take 3 tablets by mouth in the morning. [facility] glecaprevir -pibrentasv ir 100-40 mg 3-1 2-15 00:00: 00 Yes [id number] 3{tbl} Take 3 tablets by mouth in the morning. [facility] glecaprevir -pibrentasv ir 100-40 mg 3-1 2-15 00:00: 00 Yes [id number] 3{tbl} Take 3 tablets by mouth in the morning. [facility] glecaprevir -pibrentasv ir 100-40 mg 3-1 2-15 00:00: 00 Yes [id number] 3{tbl} Take 3 tablets by mouth in the morning. [facility] glecaprevir -pibrentasv ir 100-40 mg 2022-08 2- 00:00: 00 Yes [id number] 3{tbl} Take 3 tablets by mouth in the morning. [facility] glecaprevir -pibrentasv ir 100-40 mg 2022-08 2- 00:00: 00 Yes [id number] 3{tbl} Take 3 tablets by mouth in the morning. [facility] glecaprevir -pibrentasv ir 100-40 mg 2022-08 2- 00:00: 00 Yes [id number] 3{tbl} Take 3 tablets by mouth in the morning. [facility] glecaprevir -pibrentasv ir 100-40 mg 2022-08 2- 00:00: 00 Yes [id number] 3{tbl} Take 3 tablets by mouth in the morning. [facility] miSOPROStoL 200 mcg tablet 2022-08 00:00: 00 Yes [id number] 100 200ug Take 1 tablet by mouth SEE-INSTRU CTIONS. Take one tab the night before and one tab the morning of procedure [facility] miSOPROStoL 200 mcg tablet 2022-08 00:00: 00 Yes [id number] 100 200ug Take 1 tablet by mouth SEE-INSTRU CTIONS. Take one tab the night before and one tab the morning of procedure [facility] miSOPROStoL 200 mcg tablet 2022-08 00:00: 00 Yes [id number] 100 200ug Take 1 tablet by mouth SEE-INSTRU CTIONS. Take one tab the night before and one tab the morning of procedure [facility] miSOPROStoL 200 mcg tablet 2022-08 00:00: 00 Yes [id number] 100 200ug Take 1 tablet by mouth SEE-INSTRU CTIONS. Take one tab the night before and one tab the morning of procedure [facility] miSOPROStoL 200 mcg tablet 2022-08 00:00: 00 Yes [id number] 100 200ug Take 1 tablet by mouth SEE-INSTRU CTIONS. Take one tab the night before and one tab the morning of procedure [facility] miSOPROStoL 200 mcg tablet 2022-08 2- 00:00: 00 Yes [id number] 100 200ug Take 1 tablet by mouth SEE-INSTRU CTIONS. Take one tab the night before and one tab the morning of procedure [facility] miSOPROStoL 200 mcg tablet 2022-08 2- 00:00: 00 07-30 00:00 :00 No [id number] 100 200ug Take 1 tablet by mouth SEE-INSTRU CTIONS. Take one tab the night before and one tab the morning of procedure [facility] miSOPROStoL 200 mcg tablet 2022-08 00:00: 00 07-30 00:00 :00 No [id number] 100 200ug Take 1 tablet by mouth SEE-INSTRU CTIONS. Take one tab the night before and one tab the morning of procedure [facility] miSOPROStoL 200 mcg tablet 2022-08 00:00: 00 07-30 00:00 :00 No [id number] 100 200ug Take 1 tablet by mouth SEE-INSTRU CTIONS. Take one tab the night before and one tab the morning of procedure [facility] miSOPROStoL 200 mcg tablet 2022-08 00:00: 00 07-30 00:00 :00 No [id number] 100 200ug Take 1 tablet by mouth SEE-INSTRU CTIONS. Take one tab the night before and one tab the morning of procedure [facility] sofosbuvir- velpatasvir 400-100 mg 2022-08 2 00:00: 00 Yes [id number] 1{tbl} Take 1 tablet by mouth in the morning. [facility] sofosbuvir- velpatasvir 400-100 mg 2022-08 2 00:00: 00 Yes [id number] 1{tbl} Take 1 tablet by mouth in the morning. [facility] sofosbuvir- velpatasvir 400-100 mg 2022-08 2- 00:00: 00 Yes [id number] 1{tbl} Take 1 tablet by mouth in the morning. [facility] sofosbuvir- velpatasvir 400-100 mg 2022-08 2- 00:00: 00 Yes [id number] 1{tbl} Take 1 tablet by mouth in the morning. [facility] sofosbuvir- velpatasvir 400-100 mg 2022-08 2- 00:00: 00 Yes [id number] 1{tbl} Take 1 tablet by mouth in the morning. [facility] sofosbuvir- velpatasvir 400-100 mg 2022-08 2- 00:00: 00 Yes [id number] 1{tbl} Take 1 tablet by mouth in the morning. [facility] sofosbuvir- velpatasvir 400-100 mg 2022-08 2- 00:00: 00 Yes [id number] 1{tbl} Take 1 tablet by mouth in the morning. [facility] sofosbuvir- velpatasvir 400-100 mg 2022-08 2 00:00: 00 Yes [id number] 1{tbl} Take 1 tablet by mouth in the morning. [facility] sofosbuvir- velpatasvir 400-100 mg 2022-08 2 00:00: 00 07-24 00:00 :00 No [id number] 1{tbl} Take 1 tablet by mouth in the morning. [facility] amoxicillin 875 mg tablet 2022-08 00:00: 00 07-20 05:59 :00 No [id number] 05 875mg Take 1 tablet by mouth in the morning and 1 tablet in the evening. Do all this for 10 days. [facility] amoxicillin 875 mg tablet 2022-08 00:00: 00 07-20 05:59 :00 No [id number] 05 875mg Take 1 tablet by mouth in the morning and 1 tablet in the evening. Do all this for 10 days. [facility] amoxicillin 875 mg tablet 2022-08 00:00: 00 07-20 05:59 :00 No [id number] 05 875mg Take 1 tablet by mouth in the morning and 1 tablet in the evening. Do all this for 10 days. [facility] iopamidol (ISOVUE 370-500 mL) injection 100 mL 2022-08 08:30: 00 06-29 08:30 :00 No [id number] 100mL 100 mL, Intravenou s, ONCE, 1 dose, On 06/29/23 at 0230, Routine [facility] ondansetron (ZOFRAN (PF)) injection 4 mg 2022-08 05:45: 00 06-29 05:55 :00 No 4mg 4 mg, Slow IV Push, ONCE, 1 dose, On 06/28/23 at 2345, UZMA [facility] morpHINE (4 mg/mL) injection 4 mg 2022-08 05:45: 00 06-29 05:56 :00 No 4mg 4 mg, Slow IV Push, ONCE, 1 dose, On 06/28/23 at 2345, STAT [facility] dicyclomine 20 mg tablet 2022-08 00:00: 00 Yes [id number] 20mg Take 1 tablet by mouth every 6 (six) hours as needed for Abdominal pain. [facility] lactulose 10 gram/15 mL oral solution 2022-08 00:00: 00 Yes [id number] 30mL Take 30 mL by mouth 3 (three) times daily as needed for Constipati on or For bowel movement. [facility] ondansetron (ZOFRAN) 4 mg tablet 2022-08 00:00: 00 Yes [id number] 4mg Take 1 tablet by mouth every 8 (eight) hours as needed for Nausea and Vomiting (N/V). [facility] dicyclomine 20 mg tablet 2022-08 00:00: 00 Yes [id number] 20mg Take 1 tablet by mouth every 6 (six) hours as needed for Abdominal pain. [facility] lactulose 10 gram/15 mL oral solution 2022-08 00:00: 00 Yes [id number] 30mL Take 30 mL by mouth 3 (three) times daily as needed for Constipati on or For bowel movement. [facility] ondansetron (ZOFRAN) 4 mg tablet 2022-08 00:00: 00 Yes [id number] 4mg Take 1 tablet by mouth every 8 (eight) hours as needed for Nausea and Vomiting (N/V). [facility] dicyclomine 20 mg tablet 2022-08 00:00: 00 Yes [id number] 20mg Take 1 tablet by mouth every 6 (six) hours as needed for Abdominal pain. [facility] lactulose 10 gram/15 mL oral solution 2022-08 00:00: 00 Yes [id number] 30mL Take 30 mL by mouth 3 (three) times daily as needed for Constipati on or For bowel movement. [facility] ondansetron (ZOFRAN) 4 mg tablet 2022-08 00:00: 00 Yes [id number] 4mg Take 1 tablet by mouth every 8 (eight) hours as needed for Nausea and Vomiting (N/V). [facility] dicyclomine 20 mg tablet 2022-08 00:00: 00 Yes [id number] 20mg Take 1 tablet by mouth every 6 (six) hours as needed for Abdominal pain. [facility] lactulose 10 gram/15 mL oral solution 2022-08 00:00: 00 Yes [id number] 30mL Take 30 mL by mouth 3 (three) times daily as needed for Constipati on or For bowel movement. [facility] ondansetron (ZOFRAN) 4 mg tablet 2022-08 00:00: 00 Yes [id number] 4mg Take 1 tablet by mouth every 8 (eight) hours as needed for Nausea and Vomiting (N/V). [facility] dicyclomine 20 mg tablet 2022-08 00:00: 00 Yes [id number] 20mg Take 1 tablet by mouth every 6 (six) hours as needed for Abdominal pain. [facility] lactulose 10 gram/15 mL oral solution 2022-08 00:00: 00 Yes [id number] 30mL Take 30 mL by mouth 3 (three) times daily as needed for Constipati on or For bowel movement. [facility] ondansetron (ZOFRAN) 4 mg tablet 2022-08 00:00: 00 Yes [id number] 4mg Take 1 tablet by mouth every 8 (eight) hours as needed for Nausea and Vomiting (N/V). [facility] dicyclomine 20 mg tablet 2022-08 00:00: 00 Yes [id number] 20mg Take 1 tablet by mouth every 6 (six) hours as needed for Abdominal pain. [facility] lactulose 10 gram/15 mL oral solution 2022-08 00:00: 00 Yes [id number] 30mL Take 30 mL by mouth 3 (three) times daily as needed for Constipati on or For bowel movement. [facility] ondansetron (ZOFRAN) 4 mg tablet 2022-08 00:00: 00 Yes [id number] 4mg Take 1 tablet by mouth every 8 (eight) hours as needed for Nausea and Vomiting (N/V). [facility] dicyclomine 20 mg tablet 2022-08 00:00: 00 Yes [id number] 20mg Take 1 tablet by mouth every 6 (six) hours as needed for Abdominal pain. [facility] lactulose 10 gram/15 mL oral solution 2022-08 00:00: 00 Yes [id number] 30mL Take 30 mL by mouth 3 (three) times daily as needed for Constipati on or For bowel movement. [facility] ondansetron (ZOFRAN) 4 mg tablet 2022-08 00:00: 00 Yes [id number] 4mg Take 1 tablet by mouth every 8 (eight) hours as needed for Nausea and Vomiting (N/V). [facility] dicyclomine 20 mg tablet 2022-08 00:00: 00 Yes [id number] 20mg Take 1 tablet by mouth every 6 (six) hours as needed for Abdominal pain. [facility] lactulose 10 gram/15 mL oral solution 2022-08 00:00: 00 Yes [id number] 30mL Take 30 mL by mouth 3 (three) times daily as needed for Constipati on or For bowel movement. [facility] ondansetron (ZOFRAN) 4 mg tablet 2022-08 00:00: 00 Yes [id number] 4mg Take 1 tablet by mouth every 8 (eight) hours as needed for Nausea and Vomiting (N/V). [facility] dicyclomine 20 mg tablet 2022-08 00:00: 00 Yes [id number] 20mg Take 1 tablet by mouth every 6 (six) hours as needed for Abdominal pain. [facility] lactulose 10 gram/15 mL oral solution 2022-08 00:00: 00 Yes [id number] 30mL Take 30 mL by mouth 3 (three) times daily as needed for Constipati on or For bowel movement. [facility] ondansetron (ZOFRAN) 4 mg tablet 2022-08 00:00: 00 Yes [id number] 4mg Take 1 tablet by mouth every 8 (eight) hours as needed for Nausea and Vomiting (N/V). [facility] dicyclomine 20 mg tablet 2022-08 00:00: 00 Yes [id number] 20mg Take 1 tablet by mouth every 6 (six) hours as needed for Abdominal pain. [facility] lactulose 10 gram/15 mL oral solution 2022-08 00:00: 00 Yes [id number] 30mL Take 30 mL by mouth 3 (three) times daily as needed for Constipati on or For bowel movement. [facility] ondansetron (ZOFRAN) 4 mg tablet 2022-08 00:00: 00 Yes [id number] 4mg Take 1 tablet by mouth every 8 (eight) hours as needed for Nausea and Vomiting (N/V). [facility] dicyclomine 20 mg tablet 2022-08 00:00: 00 Yes [id number] 20mg Take 1 tablet by mouth every 6 (six) hours as needed for Abdominal pain. [facility] lactulose 10 gram/15 mL oral solution 2022-08 00:00: 00 Yes [id number] 30mL Take 30 mL by mouth 3 (three) times daily as needed for Constipati on or For bowel movement. [facility] ondansetron (ZOFRAN) 4 mg tablet 2022-08 00:00: 00 Yes [id number] 4mg Take 1 tablet by mouth every 8 (eight) hours as needed for Nausea and Vomiting (N/V). [facility] dicyclomine 20 mg tablet 2022-08 00:00: 00 Yes [id number] 20mg Take 1 tablet by mouth every 6 (six) hours as needed for Abdominal pain. [facility] lactulose 10 gram/15 mL oral solution 2022-08 00:00: 00 Yes [id number] 30mL Take 30 mL by mouth 3 (three) times daily as needed for Constipati on or For bowel movement. [facility] ondansetron (ZOFRAN) 4 mg tablet 2022-08 00:00: 00 Yes [id number] 4mg Take 1 tablet by mouth every 8 (eight) hours as needed for Nausea and Vomiting (N/V). [facility] dicyclomine 20 mg tablet 2022-08 00:00: 00 Yes [id number] 20mg Take 1 tablet by mouth every 6 (six) hours as needed for Abdominal pain. [facility] lactulose 10 gram/15 mL oral solution 2022-08 00:00: 00 Yes [id number] 30mL Take 30 mL by mouth 3 (three) times daily as needed for Constipati on or For bowel movement. [facility] ondansetron (ZOFRAN) 4 mg tablet 2022-08 00:00: 00 Yes [id number] 4mg Take 1 tablet by mouth every 8 (eight) hours as needed for Nausea and Vomiting (N/V). [facility] dicyclomine 20 mg tablet 2022-08 00:00: 00 Yes [id number] 20mg Take 1 tablet by mouth every 6 (six) hours as needed for Abdominal pain. [facility] lactulose 10 gram/15 mL oral solution 2022-08 00:00: 00 Yes [id number] 30mL Take 30 mL by mouth 3 (three) times daily as needed for Constipati on or For bowel movement. [facility] ondansetron (ZOFRAN) 4 mg tablet 2022-08 00:00: 00 Yes [id number] 4mg Take 1 tablet by mouth every 8 (eight) hours as needed for Nausea and Vomiting (N/V). [facility] dicyclomine 20 mg tablet 2022-08 00:00: 00 Yes [id number] 20mg Take 1 tablet by mouth every 6 (six) hours as needed for Abdominal pain. [facility] lactulose 10 gram/15 mL oral solution 2022-08 00:00: 00 Yes [id number] 30mL Take 30 mL by mouth 3 (three) times daily as needed for Constipati on or For bowel movement. [facility] ondansetron (ZOFRAN) 4 mg tablet 2022-08 00:00: 00 Yes [id number] 4mg Take 1 tablet by mouth every 8 (eight) hours as needed for Nausea and Vomiting (N/V). [facility] dicyclomine 20 mg tablet 2022-08 00:00: 00 Yes [id number] 20mg Take 1 tablet by mouth every 6 (six) hours as needed for Abdominal pain. [facility] lactulose 10 gram/15 mL oral solution 2022-08 00:00: 00 Yes [id number] 30mL Take 30 mL by mouth 3 (three) times daily as needed for Constipati on or For bowel movement. [facility] ondansetron (ZOFRAN) 4 mg tablet 2022-08 00:00: 00 Yes [id number] 4mg Take 1 tablet by mouth every 8 (eight) hours as needed for Nausea and Vomiting (N/V). [facility] dicyclomine 20 mg tablet 2022-08 00:00: 00 Yes [id number] 20mg Take 1 tablet by mouth every 6 (six) hours as needed for Abdominal pain. [facility] lactulose 10 gram/15 mL oral solution 2022-08 00:00: 00 Yes [id number] 30mL Take 30 mL by mouth 3 (three) times daily as needed for Constipati on or For bowel movement. [facility] ondansetron (ZOFRAN) 4 mg tablet 2022-08 00:00: 00 Yes [id number] 4mg Take 1 tablet by mouth every 8 (eight) hours as needed for Nausea and Vomiting (N/V). [facility] dicyclomine 20 mg tablet 2022-08 00:00: 00 Yes [id number] 20mg Take 1 tablet by mouth every 6 (six) hours as needed for Abdominal pain. [facility] lactulose 10 gram/15 mL oral solution 2022-08 00:00: 00 Yes [id number] 30mL Take 30 mL by mouth 3 (three) times daily as needed for Constipati on or For bowel movement. [facility] ondansetron (ZOFRAN) 4 mg tablet 2022-08 00:00: 00 Yes [id number] 4mg Take 1 tablet by mouth every 8 (eight) hours as needed for Nausea and Vomiting (N/V). [facility] dicyclomine 20 mg tablet 2022-08 00:00: 00 Yes [id number] 20mg Take 1 tablet by mouth every 6 (six) hours as needed for Abdominal pain. [facility] lactulose 10 gram/15 mL oral solution 2022-08 00:00: 00 Yes [id number] 30mL Take 30 mL by mouth 3 (three) times daily as needed for Constipati on or For bowel movement. [facility] ondansetron (ZOFRAN) 4 mg tablet 2022-08 00:00: 00 Yes [id number] 4mg Take 1 tablet by mouth every 8 (eight) hours as needed for Nausea and Vomiting (N/V). [facility] dicyclomine 20 mg tablet 2022-08 00:00: 00 Yes [id number] 20mg Take 1 tablet by mouth every 6 (six) hours as needed for Abdominal pain. [facility] lactulose 10 gram/15 mL oral solution 2022-08 00:00: 00 Yes [id number] 30mL Take 30 mL by mouth 3 (three) times daily as needed for Constipati on or For bowel movement. [facility] ondansetron (ZOFRAN) 4 mg tablet 2022-08 00:00: 00 Yes [id number] 4mg Take 1 tablet by mouth every 8 (eight) hours as needed for Nausea and Vomiting (N/V). [facility] dicyclomine 20 mg tablet 2022-08 00:00: 00 Yes [id number] 20mg Take 1 tablet by mouth every 6 (six) hours as needed for Abdominal pain. [facility] lactulose 10 gram/15 mL oral solution 2022-08 00:00: 00 Yes [id number] 30mL Take 30 mL by mouth 3 (three) times daily as needed for Constipati on or For bowel movement. [facility] ondansetron (ZOFRAN) 4 mg tablet 2022-08 00:00: 00 Yes [id number] 4mg Take 1 tablet by mouth every 8 (eight) hours as needed for Nausea and Vomiting (N/V). [facility] dicyclomine 20 mg tablet 2022-08 00:00: 00 Yes [id number] 20mg Take 1 tablet by mouth every 6 (six) hours as needed for Abdominal pain. [facility] lactulose 10 gram/15 mL oral solution 2022-08 00:00: 00 Yes [id number] 30mL Take 30 mL by mouth 3 (three) times daily as needed for Constipati on or For bowel movement. [facility] ondansetron (ZOFRAN) 4 mg tablet 2022-08 00:00: 00 Yes [id number] 4mg Take 1 tablet by mouth every 8 (eight) hours as needed for Nausea and Vomiting (N/V). [facility] dicyclomine 20 mg tablet 2022-08 00:00: 00 Yes [id number] 20mg Take 1 tablet by mouth every 6 (six) hours as needed for Abdominal pain. [facility] lactulose 10 gram/15 mL oral solution 2022-08 00:00: 00 Yes [id number] 30mL Take 30 mL by mouth 3 (three) times daily as needed for Constipati on or For bowel movement. [facility] ondansetron (ZOFRAN) 4 mg tablet 2022-08 00:00: 00 Yes [id number] 4mg Take 1 tablet by mouth every 8 (eight) hours as needed for Nausea and Vomiting (N/V). [facility] dicyclomine 20 mg tablet 2022-08 00:00: 00 Yes [id number] 20mg Take 1 tablet by mouth every 6 (six) hours as needed for Abdominal pain. [facility] lactulose 10 gram/15 mL oral solution 2022-08 00:00: 00 Yes [id number] 30mL Take 30 mL by mouth 3 (three) times daily as needed for Constipati on or For bowel movement. [facility] ondansetron (ZOFRAN) 4 mg tablet 2022-08 00:00: 00 Yes [id number] 4mg Take 1 tablet by mouth every 8 (eight) hours as needed for Nausea and Vomiting (N/V). [facility] dicyclomine 20 mg tablet 2022-08 00:00: 00 Yes [id number] 20mg Take 1 tablet by mouth every 6 (six) hours as needed for Abdominal pain. [facility] lactulose 10 gram/15 mL oral solution 2022-08 00:00: 00 Yes [id number] 30mL Take 30 mL by mouth 3 (three) times daily as needed for Constipati on or For bowel movement. [facility] ondansetron (ZOFRAN) 4 mg tablet 2022-08 00:00: 00 Yes [id number] 4mg Take 1 tablet by mouth every 8 (eight) hours as needed for Nausea and Vomiting (N/V). [facility] dicyclomine 20 mg tablet 2022-08 00:00: 00 Yes [id number] 20mg Take 1 tablet by mouth every 6 (six) hours as needed for Abdominal pain. [facility] lactulose 10 gram/15 mL oral solution 2022-08 00:00: 00 Yes [id number] 30mL Take 30 mL by mouth 3 (three) times daily as needed for Constipati on or For bowel movement. [facility] ondansetron (ZOFRAN) 4 mg tablet 2022-08 00:00: 00 Yes [id number] 4mg Take 1 tablet by mouth every 8 (eight) hours as needed for Nausea and Vomiting (N/V). [facility] dicyclomine 20 mg tablet 2022-08 00:00: 00 Yes [id number] 20mg Take 1 tablet by mouth every 6 (six) hours as needed for Abdominal pain. [facility] lactulose 10 gram/15 mL oral solution 2022-08 00:00: 00 Yes [id number] 30mL Take 30 mL by mouth 3 (three) times daily as needed for Constipati on or For bowel movement. [facility] ondansetron (ZOFRAN) 4 mg tablet 2022-08 00:00: 00 Yes [id number] 4mg Take 1 tablet by mouth every 8 (eight) hours as needed for Nausea and Vomiting (N/V). [facility] lactulose 10 gram/15 mL oral solution 2022-08 00:00: 00 Yes [id number] 30mL Take 30 mL by mouth 3 (three) times daily as needed for Constipati on or For bowel movement. [facility] lactulose 10 gram/15 mL oral solution 2022-08 00:00: 00 Yes [id number] 30mL Take 30 mL by mouth 3 (three) times daily as needed for Constipati on or For bowel movement. [facility] lactulose 10 gram/15 mL oral solution 2022-08 00:00: 00 Yes [id number] 30mL Take 30 mL by mouth 3 (three) times daily as needed for Constipati on or For bowel movement. [facility] lactulose 10 gram/15 mL oral solution 2022-08 00:00: 00 Yes [id number] 30mL Take 30 mL by mouth 3 (three) times daily as needed for Constipati on or For bowel movement. [facility] lactulose 10 gram/15 mL oral solution 2022-08 00:00: 00 Yes [id number] 30mL Take 30 mL by mouth 3 (three) times daily as needed for Constipati on or For bowel movement. [facility] lactulose 10 gram/15 mL oral solution 2022-08 00:00: 00 Yes [id number] 30mL Take 30 mL by mouth 3 (three) times daily as needed for Constipati on or For bowel movement. [facility] lactulose 10 gram/15 mL oral solution 2022-08 00:00: 00 Yes [id number] 30mL Take 30 mL by mouth 3 (three) times daily as needed for Constipati on or For bowel movement. [facility] lactulose 10 gram/15 mL oral solution 2022-08 00:00: 00 Yes [id number] 30mL Take 30 mL by mouth 3 (three) times daily as needed for Constipati on or For bowel movement. [facility] lactulose 10 gram/15 mL oral solution 2022-08 00:00: 00 Yes [id number] 30mL Take 30 mL by mouth 3 (three) times daily as needed for Constipati on or For bowel movement. [facility] lactulose 10 gram/15 mL oral solution 2022-08 00:00: 00 Yes [id number] 30mL Take 30 mL by mouth 3 (three) times daily as needed for Constipati on or For bowel movement. [facility] lactulose 10 gram/15 mL oral solution 2022-08 00:00: 00 Yes [id number] 30mL Take 30 mL by mouth 3 (three) times daily as needed for Constipati on or For bowel movement. [facility] lactulose 10 gram/15 mL oral solution 2022-08 00:00: 00 Yes [id number] 30mL Take 30 mL by mouth 3 (three) times daily as needed for Constipati on or For bowel movement. [facility] lactulose 10 gram/15 mL oral solution 2022-08 00:00: 00 Yes [id number] 30mL Take 30 mL by mouth 3 (three) times daily as needed for Constipati on or For bowel movement. [facility] lactulose 10 gram/15 mL oral solution 2022-08 00:00: 00 Yes [id number] 30mL Take 30 mL by mouth 3 (three) times daily as needed for Constipati on or For bowel movement. [facility] lactulose 10 gram/15 mL oral solution 2022-08 00:00: 00 Yes [id number] 30mL Take 30 mL by mouth 3 (three) times daily as needed for Constipati on or For bowel movement. [facility] lactulose 10 gram/15 mL oral solution 2022-08 00:00: 00 Yes [id number] 30mL Take 30 mL by mouth 3 (three) times daily as needed for Constipati on or For bowel movement. [facility] lactulose 10 gram/15 mL oral solution 2022-08 00:00: 00 Yes [id number] 30mL Take 30 mL by mouth 3 (three) times daily as needed for Constipati on or For bowel movement. [facility] lactulose 10 gram/15 mL oral solution 2022-08 00:00: 00 Yes [id number] 30mL Take 30 mL by mouth 3 (three) times daily as needed for Constipati on or For bowel movement. [facility] lactulose 10 gram/15 mL oral solution 2022-08 00:00: 00 Yes [id number] 30mL Take 30 mL by mouth 3 (three) times daily as needed for Constipati on or For bowel movement. [facility] lactulose 10 gram/15 mL oral solution 2022-08 00:00: 00 Yes [id number] 30mL Take 30 mL by mouth 3 (three) times daily as needed for Constipati on or For bowel movement. [facility] lactulose 10 gram/15 mL oral solution 2022-08 00:00: 00 Yes [id number] 30mL Take 30 mL by mouth 3 (three) times daily as needed for Constipati on or For bowel movement. [facility] lactulose 10 gram/15 mL oral solution 2022-08 00:00: 00 Yes [id number] 30mL Take 30 mL by mouth 3 (three) times daily as needed for Constipati on or For bowel movement. [facility] lactulose 10 gram/15 mL oral solution 2022-08 00:00: 00 Yes [id number] 30mL Take 30 mL by mouth 3 (three) times daily as needed for Constipati on or For bowel movement. [facility] lactulose 10 gram/15 mL oral solution 2022-08 00:00: 00 Yes [id number] 30mL Take 30 mL by mouth 3 (three) times daily as needed for Constipati on or For bowel movement. [facility] lactulose 10 gram/15 mL oral solution 2022-08 00:00: 00 Yes [id number] 30mL Take 30 mL by mouth 3 (three) times daily as needed for Constipati on or For bowel movement. [facility] lactulose 10 gram/15 mL oral solution 2022-08 00:00: 00 Yes [id number] 30mL Take 30 mL by mouth 3 (three) times daily as needed for Constipati on or For bowel movement. [facility] lactulose 10 gram/15 mL oral solution 2022-08 00:00: 00 Yes [id number] 30mL Take 30 mL by mouth 3 (three) times daily as needed for Constipati on or For bowel movement. [facility] lactulose 10 gram/15 mL oral solution 2022-08 00:00: 00 Yes [id number] 30mL Take 30 mL by mouth 3 (three) times daily as needed for Constipati on or For bowel movement. [facility] lactulose 10 gram/15 mL oral solution 2022-08 00:00: 00 Yes [id number] 30mL Take 30 mL by mouth 3 (three) times daily as needed for Constipati on or For bowel movement. [facility] lactulose 10 gram/15 mL oral solution 2022-08 00:00: 00 Yes [id number] 30mL Take 30 mL by mouth 3 (three) times daily as needed for Constipati on or For bowel movement. [facility] lactulose 10 gram/15 mL oral solution 2022-08 00:00: 00 Yes [id number] 30mL Take 30 mL by mouth 3 (three) times daily as needed for Constipati on or For bowel movement. [facility] lactulose 10 gram/15 mL oral solution 2022-08 00:00: 00 Yes [id number] 30mL Take 30 mL by mouth 3 (three) times daily as needed for Constipati on or For bowel movement. [facility] lactulose 10 gram/15 mL oral solution 2022-08 00:00: 00 Yes [id number] 30mL Take 30 mL by mouth 3 (three) times daily as needed for Constipati on or For bowel movement. [facility] lactulose 10 gram/15 mL oral solution 2022-08 00:00: 00 Yes [id number] 30mL Take 30 mL by mouth 3 (three) times daily as needed for Constipati on or For bowel movement. [facility] lactulose 10 gram/15 mL oral solution 2022-08 00:00: 00 Yes [id number] 30mL Take 30 mL by mouth 3 (three) times daily as needed for Constipati on or For bowel movement. [facility] lactulose 10 gram/15 mL oral solution 2022-08 00:00: 00 Yes [id number] 30mL Take 30 mL by mouth 3 (three) times daily as needed for Constipati on or For bowel movement. [facility] lactulose 10 gram/15 mL oral solution 2022-08 00:00: 00 Yes [id number] 30mL Take 30 mL by mouth 3 (three) times daily as needed for Constipati on or For bowel movement. [facility] lactulose 10 gram/15 mL oral solution 2022-08 00:00: 00 Yes [id number] 30mL Take 30 mL by mouth 3 (three) times daily as needed for Constipati on or For bowel movement. [facility] lactulose 10 gram/15 mL oral solution 2022-08 00:00: 00 Yes [id number] 30mL Take 30 mL by mouth 3 (three) times daily as needed for Constipati on or For bowel movement. [facility] lactulose 10 gram/15 mL oral solution 2022-08 00:00: 00 Yes [id number] 30mL Take 30 mL by mouth 3 (three) times daily as needed for Constipati on or For bowel movement. [facility] lactulose 10 gram/15 mL oral solution 2022-08 00:00: 00 Yes [id number] 30mL Take 30 mL by mouth 3 (three) times daily as needed for Constipati on or For bowel movement. [facility] lactulose 10 gram/15 mL oral solution 2022-08 00:00: 00 Yes [id number] 30mL Take 30 mL by mouth 3 (three) times daily as needed for Constipati on or For bowel movement. [facility] dicyclomine 20 mg tablet 2022-08 00:00: 00 08-19 00:00 :00 No [id number] 20mg Take 1 tablet by mouth every 6 (six) hours as needed for Abdominal pain. [facility] ondansetron (ZOFRAN) 4 mg tablet 2022-08 00:00: 00 08-19 00:00 :00 No [id number] 4mg Take 1 tablet by mouth every 8 (eight) hours as needed for Nausea and Vomiting (N/V). [facility] dicyclomine 20 mg tablet 2022-08 00:00: 00 08-19 00:00 :00 No [id number] 20mg Take 1 tablet by mouth every 6 (six) hours as needed for Abdominal pain. [facility] ondansetron (ZOFRAN) 4 mg tablet 2022-08 00:00: 00 08-19 00:00 :00 No [id number] 4mg Take 1 tablet by mouth every 8 (eight) hours as needed for Nausea and Vomiting (N/V). [facility] dicyclomine 20 mg tablet 2022-08 00:00: 00 08-19 00:00 :00 No [id number] 20mg Take 1 tablet by mouth every 6 (six) hours as needed for Abdominal pain. [facility] ondansetron (ZOFRAN) 4 mg tablet 2022-08 00:00: 00 08-19 00:00 :00 No [id number] 4mg Take 1 tablet by mouth every 8 (eight) hours as needed for Nausea and Vomiting (N/V). [facility] dicyclomine 20 mg tablet 2022-08 00:00: 00 08-19 00:00 :00 No [id number] 20mg Take 1 tablet by mouth every 6 (six) hours as needed for Abdominal pain. [facility] ondansetron (ZOFRAN) 4 mg tablet 2022-08 00:00: 00 08-19 00:00 :00 No [id number] 4mg Take 1 tablet by mouth every 8 (eight) hours as needed for Nausea and Vomiting (N/V). [facility] ipratropium 0.02 % nebulizer solution 2022-08 00:00: 00 Yes [id number] .5mg Inhale 2.5 mL every 8 (eight) hours as needed for Wheezing or Shortness of Breath. [facility] ipratropium 0.02 % nebulizer solution 2022-08 00:00: 00 Yes [id number] .5mg Inhale 2.5 mL every 8 (eight) hours as needed for Wheezing or Shortness of Breath. [facility] ipratropium 0.02 % nebulizer solution 2022-08 00:00: 00 Yes [id number] .5mg Inhale 2.5 mL every 8 (eight) hours as needed for Wheezing or Shortness of Breath. [facility] ipratropium 0.02 % nebulizer solution 2022-08 00:00: 00 Yes [id number] .5mg Inhale 2.5 mL every 8 (eight) hours as needed for Wheezing or Shortness of Breath. [facility] ipratropium 0.02 % nebulizer solution 2022-08 00:00: 00 Yes [id number] .5mg Inhale 2.5 mL every 8 (eight) hours as needed for Wheezing or Shortness of Breath. [facility] ipratropium 0.02 % nebulizer solution 2022-08 00:00: 00 Yes [id number] .5mg Inhale 2.5 mL every 8 (eight) hours as needed for Wheezing or Shortness of Breath. [facility] ipratropium 0.02 % nebulizer solution 2022-08 00:00: 00 Yes [id number] .5mg Inhale 2.5 mL every 8 (eight) hours as needed for Wheezing or Shortness of Breath. [facility] ipratropium 0.02 % nebulizer solution 2022-08 00:00: 00 Yes [id number] .5mg Inhale 2.5 mL every 8 (eight) hours as needed for Wheezing or Shortness of Breath. [facility] ipratropium 0.02 % nebulizer solution 2022-08 00:00: 00 Yes [id number] .5mg Inhale 2.5 mL every 8 (eight) hours as needed for Wheezing or Shortness of Breath. [facility] ipratropium 0.02 % nebulizer solution 2022-08 00:00: 00 Yes [id number] .5mg Inhale 2.5 mL every 8 (eight) hours as needed for Wheezing or Shortness of Breath. [facility] ipratropium 0.02 % nebulizer solution 2022-08 00:00: 00 Yes [id number] .5mg Inhale 2.5 mL every 8 (eight) hours as needed for Wheezing or Shortness of Breath. [facility] ipratropium 0.02 % nebulizer solution 2022-08 00:00: 00 Yes [id number] .5mg Inhale 2.5 mL every 8 (eight) hours as needed for Wheezing or Shortness of Breath. [facility] ipratropium 0.02 % nebulizer solution 2022-08 00:00: 00 Yes [id number] .5mg Inhale 2.5 mL every 8 (eight) hours as needed for Wheezing or Shortness of Breath. [facility] ipratropium 0.02 % nebulizer solution 2022-08 00:00: 00 Yes [id number] .5mg Inhale 2.5 mL every 8 (eight) hours as needed for Wheezing or Shortness of Breath. [facility] ipratropium 0.02 % nebulizer solution 2022-08 00:00: 00 Yes [id number] .5mg Inhale 2.5 mL every 8 (eight) hours as needed for Wheezing or Shortness of Breath. [facility] ipratropium 0.02 % nebulizer solution 2022-08 00:00: 00 Yes [id number] .5mg Inhale 2.5 mL every 8 (eight) hours as needed for Wheezing or Shortness of Breath. [facility] ipratropium 0.02 % nebulizer solution 2022-08 00:00: 00 Yes [id number] .5mg Inhale 2.5 mL every 8 (eight) hours as needed for Wheezing or Shortness of Breath. [facility] ipratropium 0.02 % nebulizer solution 2022-08 00:00: 00 Yes [id number] .5mg Inhale 2.5 mL every 8 (eight) hours as needed for Wheezing or Shortness of Breath. [facility] ipratropium 0.02 % nebulizer solution 2022-08 00:00: 00 Yes [id number] .5mg Inhale 2.5 mL every 8 (eight) hours as needed for Wheezing or Shortness of Breath. [facility] ipratropium 0.02 % nebulizer solution 2022-08 00:00: 00 Yes [id number] .5mg Inhale 2.5 mL every 8 (eight) hours as needed for Wheezing or Shortness of Breath. [facility] ipratropium 0.02 % nebulizer solution 2022-08 00:00: 00 Yes [id number] .5mg Inhale 2.5 mL every 8 (eight) hours as needed for Wheezing or Shortness of Breath. [facility] ipratropium 0.02 % nebulizer solution 2022-08 00:00: 00 Yes [id number] .5mg Inhale 2.5 mL every 8 (eight) hours as needed for Wheezing or Shortness of Breath. [facility] ipratropium 0.02 % nebulizer solution 2022-08 00:00: 00 Yes [id number] .5mg Inhale 2.5 mL every 8 (eight) hours as needed for Wheezing or Shortness of Breath. [facility] ipratropium 0.02 % nebulizer solution 2022-08 00:00: 00 Yes [id number] .5mg Inhale 2.5 mL every 8 (eight) hours as needed for Wheezing or Shortness of Breath. [facility] ipratropium 0.02 % nebulizer solution 2022-08 00:00: 00 Yes [id number] .5mg Inhale 2.5 mL every 8 (eight) hours as needed for Wheezing or Shortness of Breath. [facility] ipratropium 0.02 % nebulizer solution 2022-08 00:00: 00 Yes [id number] .5mg Inhale 2.5 mL every 8 (eight) hours as needed for Wheezing or Shortness of Breath. [facility] ipratropium 0.02 % nebulizer solution 2022-08 00:00: 00 Yes [id number] .5mg Inhale 2.5 mL every 8 (eight) hours as needed for Wheezing or Shortness of Breath. [facility] ipratropium 0.02 % nebulizer solution 2022-08 00:00: 00 Yes [id number] .5mg Inhale 2.5 mL every 8 (eight) hours as needed for Wheezing or Shortness of Breath. [facility] ipratropium 0.02 % nebulizer solution 2022-08 00:00: 00 Yes [id number] .5mg Inhale 2.5 mL every 8 (eight) hours as needed for Wheezing or Shortness of Breath. [facility] ipratropium 0.02 % nebulizer solution 2022-08 00:00: 00 Yes [id number] .5mg Inhale 2.5 mL every 8 (eight) hours as needed for Wheezing or Shortness of Breath. [facility] ipratropium 0.02 % nebulizer solution 2022-08 00:00: 00 Yes [id number] .5mg Inhale 2.5 mL every 8 (eight) hours as needed for Wheezing or Shortness of Breath. [facility] ipratropium 0.02 % nebulizer solution 2022-08 00:00: 00 Yes [id number] .5mg Inhale 2.5 mL every 8 (eight) hours as needed for Wheezing or Shortness of Breath. [facility] ipratropium 0.02 % nebulizer solution 2022-08 00:00: 00 Yes [id number] .5mg Inhale 2.5 mL every 8 (eight) hours as needed for Wheezing or Shortness of Breath. [facility] ipratropium 0.02 % nebulizer solution 2022-08 00:00: 00 Yes [id number] .5mg Inhale 2.5 mL every 8 (eight) hours as needed for Wheezing or Shortness of Breath. [facility] ipratropium 0.02 % nebulizer solution 2022-08 00:00: 00 Yes [id number] .5mg Inhale 2.5 mL every 8 (eight) hours as needed for Wheezing or Shortness of Breath. [facility] ipratropium 0.02 % nebulizer solution 2022-08 00:00: 00 Yes [id number] .5mg Inhale 2.5 mL every 8 (eight) hours as needed for Wheezing or Shortness of Breath. [facility] ipratropium 0.02 % nebulizer solution 2022-08 00:00: 00 Yes [id number] .5mg Inhale 2.5 mL every 8 (eight) hours as needed for Wheezing or Shortness of Breath. [facility] ipratropium 0.02 % nebulizer solution 2022-08 00:00: 00 Yes [id number] .5mg Inhale 2.5 mL every 8 (eight) hours as needed for Wheezing or Shortness of Breath. [facility] ipratropium 0.02 % nebulizer solution 2022-08 00:00: 00 Yes [id number] .5mg Inhale 2.5 mL every 8 (eight) hours as needed for Wheezing or Shortness of Breath. [facility] ipratropium 0.02 % nebulizer solution 2022-08 00:00: 00 Yes [id number] .5mg Inhale 2.5 mL every 8 (eight) hours as needed for Wheezing or Shortness of Breath. [facility] ipratropium 0.02 % nebulizer solution 2022-08 00:00: 00 Yes [id number] .5mg Inhale 2.5 mL every 8 (eight) hours as needed for Wheezing or Shortness of Breath. [facility] ipratropium 0.02 % nebulizer solution 2022-08 00:00: 00 Yes [id number] .5mg Inhale 2.5 mL every 8 (eight) hours as needed for Wheezing or Shortness of Breath. [facility] ipratropium 0.02 % nebulizer solution 2022-08 00:00: 00 Yes [id number] .5mg Inhale 2.5 mL every 8 (eight) hours as needed for Wheezing or Shortness of Breath. [facility] ipratropium 0.02 % nebulizer solution 2022-08 00:00: 00 Yes [id number] .5mg Inhale 2.5 mL every 8 (eight) hours as needed for Wheezing or Shortness of Breath. [facility] ipratropium 0.02 % nebulizer solution 2022-08 00:00: 00 Yes [id number] .5mg Inhale 2.5 mL every 8 (eight) hours as needed for Wheezing or Shortness of Breath. [facility] ipratropium 0.02 % nebulizer solution 2022-08 00:00: 00 Yes [id number] .5mg Inhale 2.5 mL every 8 (eight) hours as needed for Wheezing or Shortness of Breath. [facility] ipratropium 0.02 % nebulizer solution 2022-08 00:00: 00 Yes [id number] .5mg Inhale 2.5 mL every 8 (eight) hours as needed for Wheezing or Shortness of Breath. [facility] ipratropium 0.02 % nebulizer solution 2022-08 00:00: 00 Yes [id number] .5mg Inhale 2.5 mL every 8 (eight) hours as needed for Wheezing or Shortness of Breath. [facility] ipratropium 0.02 % nebulizer solution 2022-08 00:00: 00 Yes [id number] .5mg Inhale 2.5 mL every 8 (eight) hours as needed for Wheezing or Shortness of Breath. [facility] ipratropium 0.02 % nebulizer solution 2022-08 00:00: 00 Yes [id number] .5mg Inhale 2.5 mL every 8 (eight) hours as needed for Wheezing or Shortness of Breath. [facility] ipratropium 0.02 % nebulizer solution 2022-08 00:00: 00 Yes [id number] .5mg Inhale 2.5 mL every 8 (eight) hours as needed for Wheezing or Shortness of Breath. [facility] ipratropium 0.02 % nebulizer solution 2022-08 00:00: 00 Yes [id number] .5mg Inhale 2.5 mL every 8 (eight) hours as needed for Wheezing or Shortness of Breath. [facility] ipratropium 0.02 % nebulizer solution 2022-08 00:00: 00 Yes [id number] .5mg Inhale 2.5 mL every 8 (eight) hours as needed for Wheezing or Shortness of Breath. [facility] ipratropium 0.02 % nebulizer solution 2022-08 00:00: 00 Yes [id number] .5mg Inhale 2.5 mL every 8 (eight) hours as needed for Wheezing or Shortness of Breath. [facility] ipratropium 0.02 % nebulizer solution 2022-08 00:00: 00 Yes [id number] .5mg Inhale 2.5 mL every 8 (eight) hours as needed for Wheezing or Shortness of Breath. [facility] ipratropium 0.02 % nebulizer solution 2022-08 00:00: 00 Yes [id number] .5mg Inhale 2.5 mL every 8 (eight) hours as needed for Wheezing or Shortness of Breath. [facility] ipratropium 0.02 % nebulizer solution 2022-08 00:00: 00 Yes [id number] .5mg Inhale 2.5 mL every 8 (eight) hours as needed for Wheezing or Shortness of Breath. [facility] ipratropium 0.02 % nebulizer solution 2022-08 00:00: 00 Yes [id number] .5mg Inhale 2.5 mL every 8 (eight) hours as needed for Wheezing or Shortness of Breath. [facility] ipratropium 0.02 % nebulizer solution 2022-08 00:00: 00 Yes [id number] .5mg Inhale 2.5 mL every 8 (eight) hours as needed for Wheezing or Shortness of Breath. [facility] ipratropium 0.02 % nebulizer solution 2022-08 00:00: 00 Yes [id number] .5mg Inhale 2.5 mL every 8 (eight) hours as needed for Wheezing or Shortness of Breath. [facility] ipratropium 0.02 % nebulizer solution 2022-08 00:00: 00 Yes [id number] .5mg Inhale 2.5 mL every 8 (eight) hours as needed for Wheezing or Shortness of Breath. [facility] ipratropium 0.02 % nebulizer solution 2022-08 00:00: 00 Yes [id number] .5mg Inhale 2.5 mL every 8 (eight) hours as needed for Wheezing or Shortness of Breath. [facility] ipratropium 0.02 % nebulizer solution 2022-08 00:00: 00 Yes [id number] .5mg Inhale 2.5 mL every 8 (eight) hours as needed for Wheezing or Shortness of Breath. [facility] ipratropium 0.02 % nebulizer solution 2022-08 00:00: 00 Yes [id number] .5mg Inhale 2.5 mL every 8 (eight) hours as needed for Wheezing or Shortness of Breath. [facility] ipratropium 0.02 % nebulizer solution 2022-08 00:00: 00 Yes [id number] .5mg Inhale 2.5 mL every 8 (eight) hours as needed for Wheezing or Shortness of Breath. [facility] ipratropium 0.02 % nebulizer solution 2022-08 00:00: 00 Yes [id number] .5mg Inhale 2.5 mL every 8 (eight) hours as needed for Wheezing or Shortness of Breath. [facility] ipratropium 0.02 % nebulizer solution 2022-08 00:00: 00 Yes [id number] .5mg Inhale 2.5 mL every 8 (eight) hours as needed for Wheezing or Shortness of Breath. [facility] ipratropium 0.02 % nebulizer solution 2022-08 00:00: 00 Yes [id number] .5mg Inhale 2.5 mL every 8 (eight) hours as needed for Wheezing or Shortness of Breath. [facility] ipratropium 0.02 % nebulizer solution 2022-08 00:00: 00 Yes [id number] .5mg Inhale 2.5 mL every 8 (eight) hours as needed for Wheezing or Shortness of Breath. [facility] ipratropium 0.02 % nebulizer solution 2022-08 00:00: 00 Yes [id number] .5mg Inhale 2.5 mL every 8 (eight) hours as needed for Wheezing or Shortness of Breath. [facility] ipratropium 0.02 % nebulizer solution 2022-08 00:00: 00 Yes [id number] .5mg Inhale 2.5 mL every 8 (eight) hours as needed for Wheezing or Shortness of Breath. [facility] ipratropium 0.02 % nebulizer solution 2022-08 00:00: 00 Yes [id number] .5mg Inhale 2.5 mL every 8 (eight) hours as needed for Wheezing or Shortness of Breath. [facility] ipratropium 0.02 % nebulizer solution 2022-08 00:00: 00 Yes [id number] .5mg Inhale 2.5 mL every 8 (eight) hours as needed for Wheezing or Shortness of Breath. [facility] ipratropium 0.02 % nebulizer solution 2022-08 00:00: 00 Yes [id number] .5mg Inhale 2.5 mL every 8 (eight) hours as needed for Wheezing or Shortness of Breath. [facility] ipratropium 0.02 % nebulizer solution 2022-08 00:00: 00 Yes [id number] .5mg Inhale 2.5 mL every 8 (eight) hours as needed for Wheezing or Shortness of Breath. [facility] ipratropium 0.02 % nebulizer solution 2022-08 00:00: 00 Yes [id number] .5mg Inhale 2.5 mL every 8 (eight) hours as needed for Wheezing or Shortness of Breath. [facility] ipratropium 0.02 % nebulizer solution 2022-08 00:00: 00 Yes [id number] .5mg Inhale 2.5 mL every 8 (eight) hours as needed for Wheezing or Shortness of Breath. [facility] ARIPiprazol e (ABILIFY) 5 mg tablet 2022-08 0 00:00: 00 Yes [id number] 5mg Take 1 tablet by mouth in the morning. [facility] doxepin 100 mg capsule 2022-08 0 00:00: 00 Yes [id number] 100mg Take 1 capsule by mouth at bedtime. [facility] ARIPiprazol e (ABILIFY) 5 mg tablet 2022-08 0 00:00: 00 Yes [id number] 5mg Take 1 tablet by mouth in the morning. [facility] doxepin 100 mg capsule 2022-08 0 00:00: 00 Yes [id number] 100mg Take 1 capsule by mouth at bedtime. [facility] ARIPiprazol e (ABILIFY) 5 mg tablet 2022-08 0 00:00: 00 Yes [id number] 5mg Take 1 tablet by mouth in the morning. [facility] doxepin 100 mg capsule 2022-08 0- 00:00: 00 Yes [id number] 100mg Take 1 capsule by mouth at bedtime. [facility] ARIPiprazol e (ABILIFY) 5 mg tablet 2022-08 0-06 00:00: 00 Yes [id number] 5mg Take 1 tablet by mouth in the morning. [facility] doxepin 100 mg capsule 2022-08 0-06 00:00: 00 Yes [id number] 100mg Take 1 capsule by mouth at bedtime. [facility] ARIPiprazol e (ABILIFY) 5 mg tablet 2022-08 0- 00:00: 00 Yes [id number] 5mg Take 1 tablet by mouth in the morning. [facility] doxepin 100 mg capsule 2022-08 0- 00:00: 00 Yes [id number] 100mg Take 1 capsule by mouth at bedtime. [facility] ARIPiprazol e (ABILIFY) 5 mg tablet 2022-08 0- 00:00: 00 Yes [id number] 5mg Take 1 tablet by mouth in the morning. [facility] doxepin 100 mg capsule 2022-08 0-06 00:00: 00 Yes [id number] 100mg Take 1 capsule by mouth at bedtime. [facility] ARIPiprazol e (ABILIFY) 5 mg tablet 2022-08 0- 00:00: 00 Yes [id number] 5mg Take 1 tablet by mouth in the morning. [facility] doxepin 100 mg capsule 2022-08 0- 00:00: 00 Yes [id number] 100mg Take 1 capsule by mouth at bedtime. [facility] ARIPiprazol e (ABILIFY) 5 mg tablet 2022-08 0-06 00:00: 00 Yes [id number] 5mg Take 1 tablet by mouth in the morning. [facility] doxepin 100 mg capsule 2022-08 0-06 00:00: 00 Yes [id number] 100mg Take 1 capsule by mouth at bedtime. [facility] ARIPiprazol e (ABILIFY) 5 mg tablet 2022- 0-06 00:00: 00 Yes [id number] 5mg Take 1 tablet by mouth in the morning. [facility] doxepin 100 mg capsule 2022-08 0-06 00:00: 00 Yes [id number] 100mg Take 1 capsule by mouth at bedtime. [facility] ARIPiprazol e (ABILIFY) 5 mg tablet 2022-08 0-06 00:00: 00 Yes [id number] 5mg Take 1 tablet by mouth in the morning. [facility] doxepin 100 mg capsule 2022-08 0-06 00:00: 00 Yes [id number] 100mg Take 1 capsule by mouth at bedtime. [facility] ARIPiprazol e (ABILIFY) 5 mg tablet 2022-08 0-06 00:00: 00 Yes [id number] 5mg Take 1 tablet by mouth in the morning. [facility] doxepin 100 mg capsule 2022-08 0-06 00:00: 00 Yes [id number] 100mg Take 1 capsule by mouth at bedtime. [facility] ARIPiprazol e (ABILIFY) 5 mg tablet 2022-08 0-06 00:00: 00 Yes [id number] 5mg Take 1 tablet by mouth in the morning. [facility] doxepin 100 mg capsule 2022-08 0-06 00:00: 00 Yes [id number] 100mg Take 1 capsule by mouth at bedtime. [facility] ARIPiprazol e (ABILIFY) 5 mg tablet 2022-08 0-06 00:00: 00 Yes [id number] 5mg Take 1 tablet by mouth in the morning. [facility] doxepin 100 mg capsule 2022-08 0-06 00:00: 00 Yes [id number] 100mg Take 1 capsule by mouth at bedtime. [facility] ARIPiprazol e (ABILIFY) 5 mg tablet 2022-08 0-06 00:00: 00 Yes [id number] 5mg Take 1 tablet by mouth in the morning. [facility] doxepin 100 mg capsule 2022- 0-06 00:00: 00 Yes [id number] 100mg Take 1 capsule by mouth at bedtime. [facility] ARIPiprazol e (ABILIFY) 5 mg tablet 2022-08 0-06 00:00: 00 Yes [id number] 5mg Take 1 tablet by mouth in the morning. [facility] doxepin 100 mg capsule 2022-08 0-06 00:00: 00 Yes [id number] 100mg Take 1 capsule by mouth at bedtime. [facility] ARIPiprazol e (ABILIFY) 5 mg tablet 2022-08 0-06 00:00: 00 Yes [id number] 5mg Take 1 tablet by mouth in the morning. [facility] doxepin 100 mg capsule 2022-08 0-06 00:00: 00 Yes [id number] 100mg Take 1 capsule by mouth at bedtime. [facility] ARIPiprazol e (ABILIFY) 5 mg tablet 2022-08 0-06 00:00: 00 Yes [id number] 5mg Take 1 tablet by mouth in the morning. [facility] doxepin 100 mg capsule 2022-08 0-06 00:00: 00 Yes [id number] 100mg Take 1 capsule by mouth at bedtime. [facility] ARIPiprazol e (ABILIFY) 5 mg tablet 2022-08 0-06 00:00: 00 Yes [id number] 5mg Take 1 tablet by mouth in the morning. [facility] doxepin 100 mg capsule 2022-08 0-06 00:00: 00 Yes [id number] 100mg Take 1 capsule by mouth at bedtime. [facility] ARIPiprazol e (ABILIFY) 5 mg tablet 2022-08 0-06 00:00: 00 Yes [id number] 5mg Take 1 tablet by mouth in the morning. [facility] doxepin 100 mg capsule 2022-08 0-06 00:00: 00 Yes [id number] 100mg Take 1 capsule by mouth at bedtime. [facility] ARIPiprazol e (ABILIFY) 5 mg tablet 2022-08 0-06 00:00: 00 Yes [id number] 5mg Take 1 tablet by mouth in the morning. [facility] doxepin 100 mg capsule 2022-08 0-06 00:00: 00 Yes [id number] 100mg Take 1 capsule by mouth at bedtime. [facility] ARIPiprazol e (ABILIFY) 5 mg tablet 2022-08 0-06 00:00: 00 Yes [id number] 5mg Take 1 tablet by mouth in the morning. [facility] doxepin 100 mg capsule 2022-08 0-06 00:00: 00 Yes [id number] 100mg Take 1 capsule by mouth at bedtime. [facility] ARIPiprazol e (ABILIFY) 5 mg tablet 2022-08 0-06 00:00: 00 Yes [id number] 5mg Take 1 tablet by mouth in the morning. [facility] doxepin 100 mg capsule 2022-08 0- 00:00: 00 Yes [id number] 100mg Take 1 capsule by mouth at bedtime. [facility] ARIPiprazol e (ABILIFY) 5 mg tablet 2022-08 0- 00:00: 00 Yes [id number] 5mg Take 1 tablet by mouth in the morning. [facility] doxepin 100 mg capsule 2022-08 0- 00:00: 00 Yes [id number] 100mg Take 1 capsule by mouth at bedtime. [facility] ARIPiprazol e (ABILIFY) 5 mg tablet 2022-08 0- 00:00: 00 Yes [id number] 5mg Take 1 tablet by mouth in the morning. [facility] doxepin 100 mg capsule 2022-08 0-06 00:00: 00 Yes [id number] 100mg Take 1 capsule by mouth at bedtime. [facility] ARIPiprazol e (ABILIFY) 5 mg tablet 2022-08 0-06 00:00: 00 Yes [id number] 5mg Take 1 tablet by mouth in the morning. [facility] doxepin 100 mg capsule 2022-08 0-06 00:00: 00 Yes [id number] 100mg Take 1 capsule by mouth at bedtime. [facility] ARIPiprazol e (ABILIFY) 5 mg tablet 2022-08 0-06 00:00: 00 Yes [id number] 5mg Take 1 tablet by mouth in the morning. [facility] doxepin 100 mg capsule 2022-08 0-06 00:00: 00 Yes [id number] 100mg Take 1 capsule by mouth at bedtime. [facility] ARIPiprazol e (ABILIFY) 5 mg tablet 2022-08 0- 00:00: 00 Yes [id number] 5mg Take 1 tablet by mouth in the morning. [facility] doxepin 100 mg capsule 2022-08 0-06 00:00: 00 Yes [id number] 100mg Take 1 capsule by mouth at bedtime. [facility] ARIPiprazol e (ABILIFY) 5 mg tablet 2022-08 0- 00:00: 00 Yes [id number] 5mg Take 1 tablet by mouth in the morning. [facility] doxepin 100 mg capsule 2022-08 0- 00:00: 00 Yes [id number] 100mg Take 1 capsule by mouth at bedtime. [facility] ARIPiprazol e (ABILIFY) 5 mg tablet 2022-08 0- 00:00: 00 Yes [id number] 5mg Take 1 tablet by mouth in the morning. [facility] doxepin 100 mg capsule 2022-08 0- 00:00: 00 Yes [id number] 100mg Take 1 capsule by mouth at bedtime. [facility] ARIPiprazol e (ABILIFY) 5 mg tablet 2022-08 0-06 00:00: 00 Yes [id number] 5mg Take 1 tablet by mouth in the morning. [facility] doxepin 100 mg capsule 2022-08 0-06 00:00: 00 Yes [id number] 100mg Take 1 capsule by mouth at bedtime. [facility] ARIPiprazol e (ABILIFY) 5 mg tablet 2022-08 0-06 00:00: 00 Yes [id number] 5mg Take 1 tablet by mouth in the morning. [facility] doxepin 100 mg capsule 2022-08 0-06 00:00: 00 Yes [id number] 100mg Take 1 capsule by mouth at bedtime. [facility] ARIPiprazol e (ABILIFY) 5 mg tablet 2022-08 0-06 00:00: 00 Yes [id number] 5mg Take 1 tablet by mouth in the morning. [facility] doxepin 100 mg capsule 2022-08 0-06 00:00: 00 Yes [id number] 100mg Take 1 capsule by mouth at bedtime. [facility] ARIPiprazol e (ABILIFY) 5 mg tablet 2022-08 0-06 00:00: 00 Yes [id number] 5mg Take 1 tablet by mouth in the morning. [facility] doxepin 100 mg capsule 2022-08 0- 00:00: 00 Yes [id number] 100mg Take 1 capsule by mouth at bedtime. [facility] ARIPiprazol e (ABILIFY) 5 mg tablet 2022-08 0- 00:00: 00 Yes [id number] 5mg Take 1 tablet by mouth in the morning. [facility] doxepin 100 mg capsule 2022-08 0- 00:00: 00 Yes [id number] 100mg Take 1 capsule by mouth at bedtime. [facility] ARIPiprazol e (ABILIFY) 5 mg tablet 2022-08 0- 00:00: 00 Yes [id number] 5mg Take 1 tablet by mouth in the morning. [facility] doxepin 100 mg capsule 2022-08 0-06 00:00: 00 Yes [id number] 100mg Take 1 capsule by mouth at bedtime. [facility] ARIPiprazol e (ABILIFY) 5 mg tablet 2022-08 0-06 00:00: 00 Yes [id number] 5mg Take 1 tablet by mouth in the morning. [facility] doxepin 100 mg capsule 2022-08 0-06 00:00: 00 Yes [id number] 100mg Take 1 capsule by mouth at bedtime. [facility] ARIPiprazol e (ABILIFY) 5 mg tablet 2022-08 0-06 00:00: 00 Yes [id number] 5mg Take 1 tablet by mouth in the morning. [facility] doxepin 100 mg capsule 2022-08 0-06 00:00: 00 Yes [id number] 100mg Take 1 capsule by mouth at bedtime. [facility] ARIPiprazol e (ABILIFY) 5 mg tablet 2022-08 0- 00:00: 00 Yes [id number] 5mg Take 1 tablet by mouth in the morning. [facility] doxepin 100 mg capsule 2022-08 0-06 00:00: 00 Yes [id number] 100mg Take 1 capsule by mouth at bedtime. [facility] ARIPiprazol e (ABILIFY) 5 mg tablet 2022-08 0- 00:00: 00 Yes [id number] 5mg Take 1 tablet by mouth in the morning. [facility] doxepin 100 mg capsule 2022-08 0- 00:00: 00 Yes [id number] 100mg Take 1 capsule by mouth at bedtime. [facility] ARIPiprazol e (ABILIFY) 5 mg tablet 2022-08 0- 00:00: 00 Yes [id number] 5mg Take 1 tablet by mouth in the morning. [facility] doxepin 100 mg capsule 2022-08 0- 00:00: 00 Yes [id number] 100mg Take 1 capsule by mouth at bedtime. [facility] ARIPiprazol e (ABILIFY) 5 mg tablet 2022-08 0-06 00:00: 00 Yes [id number] 5mg Take 1 tablet by mouth in the morning. [facility] doxepin 100 mg capsule 2022-08 0-06 00:00: 00 Yes [id number] 100mg Take 1 capsule by mouth at bedtime. [facility] ARIPiprazol e (ABILIFY) 5 mg tablet 2022-08 0-06 00:00: 00 Yes [id number] 5mg Take 1 tablet by mouth in the morning. [facility] doxepin 100 mg capsule 2022-08 0-06 00:00: 00 Yes [id number] 100mg Take 1 capsule by mouth at bedtime. [facility] ARIPiprazol e (ABILIFY) 5 mg tablet 2022-08 0-06 00:00: 00 Yes [id number] 5mg Take 1 tablet by mouth in the morning. [facility] doxepin 100 mg capsule 2022-08 0-06 00:00: 00 Yes [id number] 100mg Take 1 capsule by mouth at bedtime. [facility] ARIPiprazol e (ABILIFY) 5 mg tablet 2022-08 0-06 00:00: 00 Yes [id number] 5mg Take 1 tablet by mouth in the morning. [facility] doxepin 100 mg capsule 2022-08 0- 00:00: 00 Yes [id number] 100mg Take 1 capsule by mouth at bedtime. [facility] ARIPiprazol e (ABILIFY) 5 mg tablet 2022-08 0- 00:00: 00 Yes [id number] 5mg Take 1 tablet by mouth in the morning. [facility] doxepin 100 mg capsule 2022-08 0-06 00:00: 00 Yes [id number] 100mg Take 1 capsule by mouth at bedtime. [facility] ARIPiprazol e (ABILIFY) 5 mg tablet 2022-08 0- 00:00: 00 Yes [id number] 5mg Take 1 tablet by mouth in the morning. [facility] doxepin 100 mg capsule 2022-08 0-06 00:00: 00 Yes [id number] 100mg Take 1 capsule by mouth at bedtime. [facility] ARIPiprazol e (ABILIFY) 5 mg tablet 2022-08 0-06 00:00: 00 Yes [id number] 5mg Take 1 tablet by mouth in the morning. [facility] doxepin 100 mg capsule 2022-08 0-06 00:00: 00 Yes [id number] 100mg Take 1 capsule by mouth at bedtime. [facility] ARIPiprazol e (ABILIFY) 5 mg tablet 2022-08 0-06 00:00: 00 08-19 00:00 :00 No [id number] 5mg Take 1 tablet by mouth in the morning. [facility] doxepin 100 mg capsule 2022- 0-06 00:00: 00 08-19 00:00 :00 No [id number] 100mg Take 1 capsule by mouth at bedtime. [facility] ARIPiprazol e (ABILIFY) 5 mg tablet 2022-08 0-06 00:00: 00 08-19 00:00 :00 No [id number] 5mg Take 1 tablet by mouth in the morning. [facility] doxepin 100 mg capsule 2022- 0-06 00:00: 00 08-19 00:00 :00 No [id number] 100mg Take 1 capsule by mouth at bedtime. [facility] ARIPiprazol e (ABILIFY) 5 mg tablet 2022-08 0-06 00:00: 00 08-19 00:00 :00 No [id number] 5mg Take 1 tablet by mouth in the morning. [facility] doxepin 100 mg capsule 2022-08 0-06 00:00: 00 08-19 00:00 :00 No [id number] 100mg Take 1 capsule by mouth at bedtime. [facility] ARIPiprazol e (ABILIFY) 5 mg tablet 2022-08 0-06 00:00: 00 08-19 00:00 :00 No [id number] 5mg Take 1 tablet by mouth in the morning. [facility] doxepin 100 mg capsule 2022-08 0-06 00:00: 00 08-19 00:00 :00 No [id number] 100mg Take 1 capsule by mouth at bedtime. [facility] ARIPiprazol e (ABILIFY) 5 mg tablet 2022-08 0-06 00:00: 00 05-15 00:00 :00 No [id number] 5mg Take 1 tablet by mouth in the morning. [facility] doxepin 100 mg capsule 2022- 0-06 00:00: 00 05-15 00:00 :00 No [id number] 100mg Take 1 capsule by mouth at bedtime. [facility] doxepin 100 mg capsule 2022-08 0- 00:00: 00 Yes [id number] 100mg Take 1 capsule by mouth at bedtime. [facility] ARIPiprazol e (ABILIFY) 5 mg tablet 2022-08 0- 00:00: 00 Yes [id number] 5mg Take 1 tablet by mouth in the morning. [facility] doxepin 100 mg capsule 2022-08 0- 00:00: 00 Yes [id number] 100mg Take 1 capsule by mouth at bedtime. [facility] ARIPiprazol e (ABILIFY) 5 mg tablet 2022-08 0- 00:00: 00 Yes [id number] 5mg Take 1 tablet by mouth in the morning. [facility] doxepin 100 mg capsule 2022-08 0- 00:00: 00 Yes [id number] 100mg Take 1 capsule by mouth at bedtime. [facility] ARIPiprazol e (ABILIFY) 5 mg tablet 2022-08 0-04 00:00: 00 Yes [id number] 5mg Take 1 tablet by mouth in the morning. [facility] doxepin 100 mg capsule 2022-08 0-04 00:00: 00 Yes [id number] 100mg Take 1 capsule by mouth at bedtime. [facility] ARIPiprazol e (ABILIFY) 5 mg tablet 2022-08 0-04 00:00: 00 Yes [id number] 5mg Take 1 tablet by mouth in the morning. [facility] doxepin 100 mg capsule 2022-08 0-04 00:00: 00 Yes [id number] 100mg Take 1 capsule by mouth at bedtime. [facility] ARIPiprazol e (ABILIFY) 5 mg tablet 2022-08 0-04 00:00: 00 Yes [id number] 5mg Take 1 tablet by mouth in the morning. [facility] doxepin 100 mg capsule 2022-08 0-04 00:00: 00 Yes [id number] 100mg Take 1 capsule by mouth at bedtime. [facility] ARIPiprazol e (ABILIFY) 5 mg tablet 2022-08 0-04 00:00: 00 Yes [id number] 5mg Take 1 tablet by mouth in the morning. [facility] doxepin 100 mg capsule 2022-08 0-04 00:00: 00 Yes [id number] 100mg Take 1 capsule by mouth at bedtime. [facility] ARIPiprazol e (ABILIFY) 5 mg tablet 2022-08 0-04 00:00: 00 Yes [id number] 5mg Take 1 tablet by mouth in the morning. [facility] doxepin 100 mg capsule 2022-08 0-04 00:00: 00 Yes [id number] 100mg Take 1 capsule by mouth at bedtime. [facility] ARIPiprazol e (ABILIFY) 5 mg tablet 2022-08 0-04 00:00: 00 Yes [id number] 5mg Take 1 tablet by mouth in the morning. [facility] doxepin 100 mg capsule 2022-08 0-04 00:00: 00 05-15 00:00 :00 No [id number] 100mg Take 1 capsule by mouth at bedtime. [facility] ARIPiprazol e (ABILIFY) 5 mg tablet 2022-08 0-04 00:00: 00 05-15 00:00 :00 No [id number] 5mg Take 1 tablet by mouth in the morning. [facility] doxepin 100 mg capsule 2022-08 0-04 00:00: 00 05-15 00:00 :00 No [id number] 100mg Take 1 capsule by mouth at bedtime. [facility] ARIPiprazol e (ABILIFY) 5 mg tablet 2022-08 0-04 00:00: 00 05-15 00:00 :00 No [id number] 5mg Take 1 tablet by mouth in the morning. [facility] doxepin 100 mg capsule 2022-08 0-04 00:00: 00 05-15 00:00 :00 No [id number] 100mg Take 1 capsule by mouth at bedtime. [facility] ARIPiprazol e (ABILIFY) 5 mg tablet 2022-08 0-04 00:00: 00 05-15 00:00 :00 No [id number] 5mg Take 1 tablet by mouth in the morning. [facility] doxepin 100 mg capsule 2022-08 0-04 00:00: 00 05-15 00:00 :00 No [id number] 100mg Take 1 capsule by mouth at bedtime. [facility] ARIPiprazol e (ABILIFY) 5 mg tablet 2022-08 0-04 00:00: 00 05-15 00:00 :00 No [id number] 5mg Take 1 tablet by mouth in the morning. [facility] doxepin 100 mg capsule 2022-08 0-04 00:00: 00 05-15 00:00 :00 No [id number] 100mg Take 1 capsule by mouth at bedtime. [facility] ARIPiprazol e (ABILIFY) 5 mg tablet 2022-08 0-04 00:00: 00 05-15 00:00 :00 No [id number] 5mg Take 1 tablet by mouth in the morning. [facility] medroxyPROG ESTERone (DEPO-PROVE RA) syringe 150 mg 04-29 21:30: 00 04-29 20:38 :00 No [id number] 150mg [facility] medroxyPROG ESTERone (DEPO-PROVE RA) syringe 150 mg 04-29 21:30: 00 04-29 20:38 :00 No [id number] 150mg 150 mg, Intramuscu lar, ONCE, 1 dose, On Thu04/29/23 at 1630, Routine [facility] valACYclovi r 1 gram tablet 04-28 00:00: 00 Yes [id number] 1g Take 1 tablet by mouth in the morning. [facility] valACYclovi r 1 gram tablet 04-28 00:00: 00 Yes [id number] 1g Take 1 tablet by mouth in the morning. [facility] tretinoin 0.075 % Crea 2022-0 04-28 00:00: 00 Yes [id number] 1g Apply 1 g to area(s) at bedtime. [facility] valACYclovi r 1 gram tablet 0 04-28 00:00: 00 Yes [id number] 1g Take 1 tablet by mouth in the morning. [facility] tretinoin 0.075 % Crea 2022-0 04-28 00:00: 00 Yes [id number] 1g Apply 1 g to area(s) at bedtime. [facility] valACYclovi r 1 gram tablet 0 04-28 00:00: 00 Yes [id number] 1g Take 1 tablet by mouth in the morning. [facility] tretinoin 0.075 % Crea 2022-0 04-28 00:00: 00 Yes [id number] 1g Apply 1 g to area(s) at bedtime. [facility] valACYclovi r 1 gram tablet 0 04-28 00:00: 00 Yes [id number] 1g Take 1 tablet by mouth in the morning. [facility] tretinoin 0.075 % Crea 0 04-28 00:00: 00 Yes [id number] 1g Apply 1 g to area(s) at bedtime. [facility] valACYclovi r 1 gram tablet 0 04-28 00:00: 00 Yes [id number] 1g Take 1 tablet by mouth in the morning. [facility] tretinoin 0.075 % Crea 2022-0 04-28 00:00: 00 Yes [id number] 1g Apply 1 g to area(s) at bedtime. [facility] valACYclovi r 1 gram tablet 2022-0 04-28 00:00: 00 Yes [id number] 1g Take 1 tablet by mouth in the morning. [facility] tretinoin 0.075 % Crea 2022-0 04-28 00:00: 00 Yes [id number] 1g Apply 1 g to area(s) at bedtime. [facility] valACYclovi r 1 gram tablet 0 04-28 00:00: 00 Yes [id number] 1g Take 1 tablet by mouth in the morning. [facility] tretinoin 0.075 % Crea 0 04-28 00:00: 00 Yes [id number] 1g Apply 1 g to area(s) at bedtime. [facility] valACYclovi r 1 gram tablet 0 04-28 00:00: 00 Yes [id number] 1g Take 1 tablet by mouth in the morning. [facility] tretinoin 0.075 % Crea 0 04-28 00:00: 00 Yes [id number] 1g Apply 1 g to area(s) at bedtime. [facility] valACYclovi r 1 gram tablet 0 04-28 00:00: 00 Yes [id number] 1g Take 1 tablet by mouth in the morning. [facility] tretinoin 0.075 % Crea 0 04-28 00:00: 00 Yes [id number] 1g Apply 1 g to area(s) at bedtime. [facility] valACYclovi r 1 gram tablet 0 04-28 00:00: 00 Yes [id number] 1g Take 1 tablet by mouth in the morning. [facility] tretinoin 0.075 % Crea 0 04-28 00:00: 00 Yes [id number] 1g Apply 1 g to area(s) at bedtime. [facility] valACYclovi r 1 gram tablet 2022-0 04-28 00:00: 00 Yes [id number] 1g Take 1 tablet by mouth in the morning. [facility] tretinoin 0.075 % Crea 0 04-28 00:00: 00 Yes [id number] 1g Apply 1 g to area(s) at bedtime. [facility] valACYclovi r 1 gram tablet 2022-0 04-28 00:00: 00 Yes [id number] 1g Take 1 tablet by mouth in the morning. [facility] tretinoin 0.075 % Crea 2022-0 04-28 00:00: 00 Yes [id number] 1g Apply 1 g to area(s) at bedtime. [facility] valACYclovi r 1 gram tablet 2022-0 04-28 00:00: 00 Yes [id number] 1g Take 1 tablet by mouth in the morning. [facility] tretinoin 0.075 % Crea 2022-0 04-28 00:00: 00 Yes [id number] 1g Apply 1 g to area(s) at bedtime. [facility] valACYclovi r 1 gram tablet 2022-0 04-28 00:00: 00 Yes [id number] 1g Take 1 tablet by mouth in the morning. [facility] tretinoin 0.075 % Crea 2022-0 04-28 00:00: 00 Yes [id number] 1g Apply 1 g to area(s) at bedtime. [facility] valACYclovi r 1 gram tablet 2022-0 04-28 00:00: 00 Yes [id number] 1g Take 1 tablet by mouth in the morning. [facility] tretinoin 0.075 % Crea 2022-0 04-28 00:00: 00 Yes [id number] 1g Apply 1 g to area(s) at bedtime. [facility] valACYclovi r 1 gram tablet 2022-0 04-28 00:00: 00 Yes [id number] 1g Take 1 tablet by mouth in the morning. [facility] tretinoin 0.075 % Crea 2022-0 04-28 00:00: 00 Yes [id number] 1g Apply 1 g to area(s) at bedtime. [facility] valACYclovi r 1 gram tablet 2022-0 04-28 00:00: 00 Yes [id number] 1g Take 1 tablet by mouth in the morning. [facility] tretinoin 0.075 % Crea 2022-0 04-28 00:00: 00 Yes [id number] 1g Apply 1 g to area(s) at bedtime. [facility] valACYclovi r 1 gram tablet 2022-0 04-28 00:00: 00 Yes [id number] 1g Take 1 tablet by mouth in the morning. [facility] tretinoin 0.075 % Crea 2022-0 04-28 00:00: 00 Yes [id number] 1g Apply 1 g to area(s) at bedtime. [facility] valACYclovi r 1 gram tablet 2022-0 04-28 00:00: 00 Yes [id number] 1g Take 1 tablet by mouth in the morning. [facility] tretinoin 0.075 % Crea 2022-0 04-28 00:00: 00 Yes [id number] 1g Apply 1 g to area(s) at bedtime. [facility] valACYclovi r 1 gram tablet 2022-0 04-28 00:00: 00 Yes [id number] 1g Take 1 tablet by mouth in the morning. [facility] tretinoin 0.075 % Crea 2022-0 04-28 00:00: 00 Yes [id number] 1g Apply 1 g to area(s) at bedtime. [facility] valACYclovi r 1 gram tablet 2022-0 04-28 00:00: 00 Yes [id number] 1g Take 1 tablet by mouth in the morning. [facility] tretinoin 0.075 % Crea 2022-0 04-28 00:00: 00 Yes [id number] 1g Apply 1 g to area(s) at bedtime. [facility] valACYclovi r 1 gram tablet 0 04-28 00:00: 00 Yes [id number] 1g Take 1 tablet by mouth in the morning. [facility] tretinoin 0.075 % Crea 2022-0 04-28 00:00: 00 Yes [id number] 1g Apply 1 g to area(s) at bedtime. [facility] valACYclovi r 1 gram tablet 2022-0 04-28 00:00: 00 Yes [id number] 1g Take 1 tablet by mouth in the morning. [facility] tretinoin 0.075 % Crea 2022-0 04-28 00:00: 00 Yes [id number] 1g Apply 1 g to area(s) at bedtime. [facility] valACYclovi r 1 gram tablet 2022-0 04-28 00:00: 00 Yes [id number] 1g Take 1 tablet by mouth in the morning. [facility] tretinoin 0.075 % Crea 2022-0 04-28 00:00: 00 Yes [id number] 1g Apply 1 g to area(s) at bedtime. [facility] valACYclovi r 1 gram tablet 0 04-28 00:00: 00 Yes [id number] 1g Take 1 tablet by mouth in the morning. [facility] tretinoin 0.075 % Crea 0 04-28 00:00: 00 Yes [id number] 1g Apply 1 g to area(s) at bedtime. [facility] valACYclovi r 1 gram tablet 0 04-28 00:00: 00 Yes [id number] 1g Take 1 tablet by mouth in the morning. [facility] tretinoin 0.075 % Crea 0 04-28 00:00: 00 Yes [id number] 1g Apply 1 g to area(s) at bedtime. [facility] valACYclovi r 1 gram tablet 2022-0 04-28 00:00: 00 Yes [id number] 1g Take 1 tablet by mouth in the morning. [facility] tretinoin 0.075 % Crea 2022-0 04-28 00:00: 00 Yes [id number] 1g Apply 1 g to area(s) at bedtime. [facility] valACYclovi r 1 gram tablet 0 04-28 00:00: 00 Yes [id number] 1g Take 1 tablet by mouth in the morning. [facility] tretinoin 0.075 % Crea 0 04-28 00:00: 00 Yes [id number] 1g Apply 1 g to area(s) at bedtime. [facility] valACYclovi r 1 gram tablet 0 04-28 00:00: 00 Yes [id number] 1g Take 1 tablet by mouth in the morning. [facility] tretinoin 0.075 % Crea 2022-0 04-28 00:00: 00 Yes [id number] 1g Apply 1 g to area(s) at bedtime. [facility] valACYclovi r 1 gram tablet 2022-0 04-28 00:00: 00 Yes [id number] 1g Take 1 tablet by mouth in the morning. [facility] tretinoin 0.075 % Crea 2022-0 04-28 00:00: 00 Yes [id number] 1g Apply 1 g to area(s) at bedtime. [facility] valACYclovi r 1 gram tablet 2022-0 04-28 00:00: 00 Yes [id number] 1g Take 1 tablet by mouth in the morning. [facility] tretinoin 0.075 % Crea 0 04-28 00:00: 00 Yes [id number] 1g Apply 1 g to area(s) at bedtime. [facility] valACYclovi r 1 gram tablet 2022-0 04-28 00:00: 00 Yes [id number] 1g Take 1 tablet by mouth in the morning. [facility] tretinoin 0.075 % Crea 2022-0 04-28 00:00: 00 Yes [id number] 1g Apply 1 g to area(s) at bedtime. [facility] valACYclovi r 1 gram tablet 2022-0 04-28 00:00: 00 Yes [id number] 1g Take 1 tablet by mouth in the morning. [facility] tretinoin 0.075 % Crea 2022-0 04-28 00:00: 00 Yes [id number] 1g Apply 1 g to area(s) at bedtime. [facility] valACYclovi r 1 gram tablet 2022-0 04-28 00:00: 00 Yes [id number] 1g Take 1 tablet by mouth in the morning. [facility] tretinoin 0.075 % Crea 2022-0 04-28 00:00: 00 Yes [id number] 1g Apply 1 g to area(s) at bedtime. [facility] valACYclovi r 1 gram tablet 2022-0 04-28 00:00: 00 Yes [id number] 1g Take 1 tablet by mouth in the morning. [facility] tretinoin 0.075 % Crea 2022-0 04-28 00:00: 00 Yes [id number] 1g Apply 1 g to area(s) at bedtime. [facility] valACYclovi r 1 gram tablet 2022-0 04-28 00:00: 00 Yes [id number] 1g Take 1 tablet by mouth in the morning. [facility] tretinoin 0.075 % Crea 0 04-28 00:00: 00 Yes [id number] 1g Apply 1 g to area(s) at bedtime. [facility] valACYclovi r 1 gram tablet 2022-0 04-28 00:00: 00 Yes [id number] 1g Take 1 tablet by mouth in the morning. [facility] tretinoin 0.075 % Crea 0 04-28 00:00: 00 Yes [id number] 1g Apply 1 g to area(s) at bedtime. [facility] valACYclovi r 1 gram tablet 0 04-28 00:00: 00 Yes [id number] 1g Take 1 tablet by mouth in the morning. [facility] tretinoin 0.075 % Crea 0 04-28 00:00: 00 Yes [id number] 1g Apply 1 g to area(s) at bedtime. [facility] valACYclovi r 1 gram tablet 0 04-28 00:00: 00 Yes [id number] 1g Take 1 tablet by mouth in the morning. [facility] tretinoin 0.075 % Crea 2022-0 04-28 00:00: 00 Yes [id number] 1g Apply 1 g to area(s) at bedtime. [facility] valACYclovi r 1 gram tablet 2022-0 04-28 00:00: 00 Yes [id number] 1g Take 1 tablet by mouth in the morning. [facility] tretinoin 0.075 % Crea 2022-0 04-28 00:00: 00 Yes [id number] 1g Apply 1 g to area(s) at bedtime. [facility] valACYclovi r 1 gram tablet 2022-0 04-28 00:00: 00 Yes [id number] 1g Take 1 tablet by mouth in the morning. [facility] tretinoin 0.075 % Crea 2022-0 04-28 00:00: 00 Yes [id number] 1g Apply 1 g to area(s) at bedtime. [facility] valACYclovi r 1 gram tablet 2022-0 04-28 00:00: 00 Yes [id number] 1g Take 1 tablet by mouth in the morning. [facility] tretinoin 0.075 % Crea 0 04-28 00:00: 00 Yes [id number] 1g Apply 1 g to area(s) at bedtime. [facility] valACYclovi r 1 gram tablet 2022-0 04-28 00:00: 00 Yes [id number] 1g Take 1 tablet by mouth in the morning. [facility] tretinoin 0.075 % Crea 0 04-28 00:00: 00 Yes [id number] 1g Apply 1 g to area(s) at bedtime. [facility] valACYclovi r 1 gram tablet 2022-0 04-28 00:00: 00 Yes [id number] 1g Take 1 tablet by mouth in the morning. [facility] tretinoin 0.075 % Crea 2022-0 04-28 00:00: 00 Yes [id number] 1g Apply 1 g to area(s) at bedtime. [facility] valACYclovi r 1 gram tablet 2022-0 04-28 00:00: 00 Yes [id number] 1g Take 1 tablet by mouth in the morning. [facility] tretinoin 0.075 % Crea 2022-0 04-28 00:00: 00 Yes [id number] 1g Apply 1 g to area(s) at bedtime. [facility] valACYclovi r 1 gram tablet 2022-0 04-28 00:00: 00 Yes [id number] 1g Take 1 tablet by mouth in the morning. [facility] tretinoin 0.075 % Crea 2022-0 04-28 00:00: 00 Yes [id number] 1g Apply 1 g to area(s) at bedtime. [facility] valACYclovi r 1 gram tablet 2022-0 04-28 00:00: 00 Yes [id number] 1g Take 1 tablet by mouth in the morning. [facility] tretinoin 0.075 % Crea 2022-0 04-28 00:00: 00 Yes [id number] 1g Apply 1 g to area(s) at bedtime. [facility] valACYclovi r 1 gram tablet 2022-0 04-28 00:00: 00 Yes [id number] 1g Take 1 tablet by mouth in the morning. [facility] tretinoin 0.075 % Crea 2022-0 04-28 00:00: 00 Yes [id number] 1g Apply 1 g to area(s) at bedtime. [facility] valACYclovi r 1 gram tablet 2022-0 04-28 00:00: 00 Yes [id number] 1g Take 1 tablet by mouth in the morning. [facility] tretinoin 0.075 % Crea 2022-0 04-28 00:00: 00 Yes [id number] 1g Apply 1 g to area(s) at bedtime. [facility] valACYclovi r 1 gram tablet 2022-0 04-28 00:00: 00 Yes [id number] 1g Take 1 tablet by mouth in the morning. [facility] tretinoin 0.075 % Crea 2022-0 04-28 00:00: 00 Yes [id number] 1g Apply 1 g to area(s) at bedtime. [facility] valACYclovi r 1 gram tablet 0 04-28 00:00: 00 Yes [id number] 1g Take 1 tablet by mouth in the morning. [facility] tretinoin 0.075 % Crea 2022-0 04-28 00:00: 00 Yes [id number] 1g Apply 1 g to area(s) at bedtime. [facility] valACYclovi r 1 gram tablet 2022-0 04-28 00:00: 00 Yes [id number] 1g Take 1 tablet by mouth in the morning. [facility] tretinoin 0.075 % Crea 2022-0 04-28 00:00: 00 Yes [id number] 1g Apply 1 g to area(s) at bedtime. [facility] valACYclovi r 1 gram tablet 2022-0 04-28 00:00: 00 Yes [id number] 1g Take 1 tablet by mouth in the morning. [facility] tretinoin 0.075 % Crea 2022-0 04-28 00:00: 00 Yes [id number] 1g Apply 1 g to area(s) at bedtime. [facility] valACYclovi r 1 gram tablet 2022-0 04-28 00:00: 00 Yes [id number] 1g Take 1 tablet by mouth in the morning. [facility] tretinoin 0.075 % Crea 0 04-28 00:00: 00 Yes [id number] 1g Apply 1 g to area(s) at bedtime. [facility] valACYclovi r 1 gram tablet 0 04-28 00:00: 00 Yes [id number] 1g Take 1 tablet by mouth in the morning. [facility] tretinoin 0.075 % Crea 0 04-28 00:00: 00 Yes [id number] 1g Apply 1 g to area(s) at bedtime. [facility] valACYclovi r 1 gram tablet 0 04-28 00:00: 00 Yes [id number] 1g Take 1 tablet by mouth in the morning. [facility] tretinoin 0.075 % Crea 0 04-28 00:00: 00 Yes [id number] 1g Apply 1 g to area(s) at bedtime. [facility] valACYclovi r 1 gram tablet 0 04-28 00:00: 00 Yes [id number] 1g Take 1 tablet by mouth in the morning. [facility] tretinoin 0.075 % Crea 0 04-28 00:00: 00 Yes [id number] 1g Apply 1 g to area(s) at bedtime. [facility] valACYclovi r 1 gram tablet 0 04-28 00:00: 00 Yes [id number] 1g Take 1 tablet by mouth in the morning. [facility] tretinoin 0.075 % Crea 0 04-28 00:00: 00 Yes [id number] 1g Apply 1 g to area(s) at bedtime. [facility] valACYclovi r 1 gram tablet 2022-0 04-28 00:00: 00 Yes [id number] 1g Take 1 tablet by mouth in the morning. [facility] tretinoin 0.075 % Crea 2022-0 04-28 00:00: 00 Yes [id number] 1g Apply 1 g to area(s) at bedtime. [facility] valACYclovi r 1 gram tablet 2022-0 04-28 00:00: 00 Yes [id number] 1g Take 1 tablet by mouth in the morning. [facility] tretinoin 0.075 % Crea 0 04-28 00:00: 00 Yes [id number] 1g Apply 1 g to area(s) at bedtime. [facility] valACYclovi r 1 gram tablet 2022-0 04-28 00:00: 00 Yes [id number] 1g Take 1 tablet by mouth in the morning. [facility] tretinoin 0.075 % Crea 2022-0 04-28 00:00: 00 Yes [id number] 1g Apply 1 g to area(s) at bedtime. [facility] valACYclovi r 1 gram tablet 2022-0 04-28 00:00: 00 Yes [id number] 1g Take 1 tablet by mouth in the morning. [facility] tretinoin 0.075 % Crea 2022-0 04-28 00:00: 00 Yes [id number] 1g Apply 1 g to area(s) at bedtime. [facility] valACYclovi r 1 gram tablet 0 04-28 00:00: 00 Yes [id number] 1g Take 1 tablet by mouth in the morning. [facility] tretinoin 0.075 % Crea 0 04-28 00:00: 00 Yes [id number] 1g Apply 1 g to area(s) at bedtime. [facility] valACYclovi r 1 gram tablet 2022-0 04-28 00:00: 00 Yes [id number] 1g Take 1 tablet by mouth in the morning. [facility] tretinoin 0.075 % Crea 2022-0 04-28 00:00: 00 Yes [id number] 1g Apply 1 g to area(s) at bedtime. [facility] valACYclovi r 1 gram tablet 2022-0 04-28 00:00: 00 Yes [id number] 1g Take 1 tablet by mouth in the morning. [facility] tretinoin 0.075 % Crea 2022-0 04-28 00:00: 00 Yes [id number] 1g Apply 1 g to area(s) at bedtime. [facility] valACYclovi r 1 gram tablet 2022-0 04-28 00:00: 00 Yes [id number] 1g Take 1 tablet by mouth in the morning. [facility] tretinoin 0.075 % Crea 0 04-28 00:00: 00 Yes [id number] 1g Apply 1 g to area(s) at bedtime. [facility] valACYclovi r 1 gram tablet 2022-0 04-28 00:00: 00 Yes [id number] 1g Take 1 tablet by mouth in the morning. [facility] tretinoin 0.075 % Crea 2022-0 04-28 00:00: 00 Yes [id number] 1g Apply 1 g to area(s) at bedtime. [facility] valACYclovi r 1 gram tablet 2022-0 04-28 00:00: 00 Yes [id number] 1g Take 1 tablet by mouth in the morning. [facility] tretinoin 0.075 % Crea 2022-0 04-28 00:00: 00 Yes [id number] 1g Apply 1 g to area(s) at bedtime. [facility] valACYclovi r 1 gram tablet 2022-0 04-28 00:00: 00 Yes [id number] 1g Take 1 tablet by mouth in the morning. [facility] tretinoin 0.075 % Crea 2022-0 04-28 00:00: 00 Yes [id number] 1g Apply 1 g to area(s) at bedtime. [facility] valACYclovi r 1 gram tablet 2022-0 04-28 00:00: 00 Yes [id number] 1g Take 1 tablet by mouth in the morning. [facility] tretinoin 0.075 % Crea 2022-0 04-28 00:00: 00 Yes [id number] 1g Apply 1 g to area(s) at bedtime. [facility] valACYclovi r 1 gram tablet 2022-0 04-28 00:00: 00 Yes [id number] 1g Take 1 tablet by mouth in the morning. [facility] tretinoin 0.075 % Crea 2022-0 04-28 00:00: 00 Yes [id number] 1g Apply 1 g to area(s) at bedtime. [facility] valACYclovi r 1 gram tablet 2022-0 04-28 00:00: 00 Yes [id number] 1g Take 1 tablet by mouth in the morning. [facility] tretinoin 0.075 % Crea 2022-0 04-28 00:00: 00 Yes [id number] 1g Apply 1 g to area(s) at bedtime. [facility] valACYclovi r 1 gram tablet 2022-0 04-28 00:00: 00 Yes [id number] 1g Take 1 tablet by mouth in the morning. [facility] tretinoin 0.075 % Crea 2022-0 04-28 00:00: 00 Yes [id number] 1g Apply 1 g to area(s) at bedtime. [facility] valACYclovi r 1 gram tablet 2022-0 04-28 00:00: 00 Yes [id number] 1g Take 1 tablet by mouth in the morning. [facility] tretinoin 0.075 % Crea 2022-0 04-28 00:00: 00 Yes [id number] 1g Apply 1 g to area(s) at bedtime. [facility] valACYclovi r 1 gram tablet 2022-0 04-28 00:00: 00 Yes [id number] 1g Take 1 tablet by mouth in the morning. [facility] tretinoin 0.075 % Crea 2022-0 04-28 00:00: 00 Yes [id number] 1g Apply 1 g to area(s) at bedtime. [facility] valACYclovi r 1 gram tablet 2022-0 04-28 00:00: 00 Yes [id number] 1g Take 1 tablet by mouth in the morning. [facility] tretinoin 0.075 % Crea 2022-0 04-28 00:00: 00 Yes [id number] 1g Apply 1 g to area(s) at bedtime. [facility] valACYclovi r 1 gram tablet 2022-0 04-28 00:00: 00 Yes [id number] 1g Take 1 tablet by mouth in the morning. [facility] tretinoin 0.075 % Crea 0 04-28 00:00: 00 Yes [id number] 1g Apply 1 g to area(s) at bedtime. [facility] valACYclovi r 1 gram tablet 2022-0 04-28 00:00: 00 Yes [id number] 1g Take 1 tablet by mouth in the morning. [facility] tretinoin 0.075 % Crea 0 04-28 00:00: 00 Yes [id number] 1g Apply 1 g to area(s) at bedtime. [facility] valACYclovi r 1 gram tablet 2022-0 04-28 00:00: 00 Yes [id number] 1g Take 1 tablet by mouth in the morning. [facility] tretinoin 0.075 % Crea 2022-0 04-28 00:00: 00 Yes [id number] 1g Apply 1 g to area(s) at bedtime. [facility] valACYclovi r 1 gram tablet 2022-0 04-28 00:00: 00 Yes [id number] 1g Take 1 tablet by mouth in the morning. [facility] tretinoin 0.075 % Crea 2022-0 04-28 00:00: 00 Yes [id number] 1g Apply 1 g to area(s) at bedtime. [facility] valACYclovi r 1 gram tablet 2022-0 04-28 00:00: 00 Yes [id number] 1g Take 1 tablet by mouth in the morning. [facility] tretinoin 0.075 % Crea 2022-0 04-28 00:00: 00 Yes [id number] 1g Apply 1 g to area(s) at bedtime. [facility] valACYclovi r 1 gram tablet 2022-0 04-28 00:00: 00 Yes [id number] 1g Take 1 tablet by mouth in the morning. [facility] tretinoin 0.075 % Crea 2022-0 04-28 00:00: 00 Yes [id number] 1g Apply 1 g to area(s) at bedtime. [facility] valACYclovi r 1 gram tablet 0 04-28 00:00: 00 Yes [id number] 1g Take 1 tablet by mouth in the morning. [facility] tretinoin 0.075 % Crea 2022-0 04-28 00:00: 00 Yes [id number] 1g Apply 1 g to area(s) at bedtime. [facility] valACYclovi r 1 gram tablet 0 04-28 00:00: 00 Yes [id number] 1g Take 1 tablet by mouth in the morning. [facility] tretinoin 0.075 % Crea 0 04-28 00:00: 00 Yes [id number] 1g Apply 1 g to area(s) at bedtime. [facility] valACYclovi r 1 gram tablet 0 04-28 00:00: 00 Yes [id number] 1g Take 1 tablet by mouth in the morning. [facility] tretinoin 0.075 % Crea 2022-0 04-28 00:00: 00 Yes [id number] 1g Apply 1 g to area(s) at bedtime. [facility] valACYclovi r 1 gram tablet 0 04-28 00:00: 00 Yes [id number] 1g Take 1 tablet by mouth in the morning. [facility] tretinoin 0.075 % Crea 2022-0 04-28 00:00: 00 Yes [id number] 1g Apply 1 g to area(s) at bedtime. [facility] valACYclovi r 1 gram tablet 2022-0 04-28 00:00: 00 Yes [id number] 1g Take 1 tablet by mouth in the morning. [facility] tretinoin 0.075 % Crea 2022-0 04-28 00:00: 00 Yes [id number] 1g Apply 1 g to area(s) at bedtime. [facility] valACYclovi r 1 gram tablet 2022-0 04-28 00:00: 00 Yes [id number] 1g Take 1 tablet by mouth in the morning. [facility] tretinoin 0.075 % Crea 2022-0 04-28 00:00: 00 Yes [id number] 1g Apply 1 g to area(s) at bedtime. [facility] valACYclovi r 1 gram tablet 0 04-28 00:00: 00 Yes [id number] 1g Take 1 tablet by mouth in the morning. [facility] tretinoin 0.075 % Crea 0 04-28 00:00: 00 Yes [id number] 1g Apply 1 g to area(s) at bedtime. [facility] valACYclovi r 1 gram tablet 0 04-28 00:00: 00 Yes [id number] 1g Take 1 tablet by mouth in the morning. [facility] tretinoin 0.075 % Crea 0 04-28 00:00: 00 Yes [id number] 1g Apply 1 g to area(s) at bedtime. [facility] valACYclovi r 1 gram tablet 0 04-28 00:00: 00 Yes [id number] 1g Take 1 tablet by mouth in the morning. [facility] tretinoin 0.075 % Crea 0 04-28 00:00: 00 Yes [id number] 1g Apply 1 g to area(s) at bedtime. [facility] valACYclovi r 1 gram tablet 0 04-28 00:00: 00 Yes [id number] 1g Take 1 tablet by mouth in the morning. [facility] tretinoin 0.075 % Crea 0 04-28 00:00: 00 Yes [id number] 1g Apply 1 g to area(s) at bedtime. [facility] valACYclovi r 1 gram tablet 2022-0 04-28 00:00: 00 Yes [id number] 1g Take 1 tablet by mouth in the morning. [facility] tretinoin 0.075 % Crea 2022-0 04-28 00:00: 00 Yes [id number] 1g Apply 1 g to area(s) at bedtime. [facility] valACYclovi r 1 gram tablet 2022-0 04-28 00:00: 00 Yes [id number] 1g Take 1 tablet by mouth in the morning. [facility] tretinoin 0.075 % Crea 2022-0 04-28 00:00: 00 Yes [id number] 1g Apply 1 g to area(s) at bedtime. [facility] valACYclovi r 1 gram tablet 0 04-28 00:00: 00 Yes [id number] 1g Take 1 tablet by mouth in the morning. [facility] tretinoin 0.075 % Crea 2022-0 04-28 00:00: 00 Yes [id number] 1g Apply 1 g to area(s) at bedtime. [facility] valACYclovi r 1 gram tablet 0 04-28 00:00: 00 Yes [id number] 1g Take 1 tablet by mouth in the morning. [facility] tretinoin 0.075 % Crea 2022-0 04-28 00:00: 00 Yes [id number] 1g Apply 1 g to area(s) at bedtime. [facility] valACYclovi r 1 gram tablet 0 04-28 00:00: 00 Yes [id number] 1g Take 1 tablet by mouth in the morning. [facility] tretinoin 0.075 % Crea 2022-0 04-28 00:00: 00 Yes [id number] 1g Apply 1 g to area(s) at bedtime. [facility] valACYclovi r 1 gram tablet 0 04-28 00:00: 00 Yes [id number] 1g Take 1 tablet by mouth in the morning. [facility] tretinoin 0.075 % Crea 2022-0 04-28 00:00: 00 Yes [id number] 1g Apply 1 g to area(s) at bedtime. [facility] valACYclovi r 1 gram tablet 2022-0 04-28 00:00: 00 Yes [id number] 1g Take 1 tablet by mouth in the morning. [facility] tretinoin 0.075 % Crea 2022-0 04-28 00:00: 00 Yes [id number] 1g Apply 1 g to area(s) at bedtime. [facility] valACYclovi r 1 gram tablet 0 04-28 00:00: 00 Yes [id number] 1g Take 1 tablet by mouth in the morning. [facility] tretinoin 0.075 % Crea 0 04-28 00:00: 00 Yes [id number] 1g Apply 1 g to area(s) at bedtime. [facility] valACYclovi r 1 gram tablet 0 04-28 00:00: 00 Yes [id number] 1g Take 1 tablet by mouth in the morning. [facility] tretinoin 0.075 % Crea 0 04-28 00:00: 00 Yes [id number] 1g Apply 1 g to area(s) at bedtime. [facility] valACYclovi r 1 gram tablet 0 04-28 00:00: 00 Yes [id number] 1g Take 1 tablet by mouth in the morning. [facility] tretinoin 0.075 % Crea 0 04-28 00:00: 00 Yes [id number] 1g Apply 1 g to area(s) at bedtime. [facility] valACYclovi r 1 gram tablet 0 04-28 00:00: 00 Yes [id number] 1g Take 1 tablet by mouth in the morning. [facility] tretinoin 0.075 % Crea 0 04-28 00:00: 00 Yes [id number] 1g Apply 1 g to area(s) at bedtime. [facility] valACYclovi r 1 gram tablet 0 04-28 00:00: 00 Yes [id number] 1g Take 1 tablet by mouth in the morning. [facility] tretinoin 0.075 % Crea 0 04-28 00:00: 00 Yes [id number] 1g Apply 1 g to area(s) at bedtime. [facility] valACYclovi r 1 gram tablet 0 04-28 00:00: 00 Yes [id number] 1g Take 1 tablet by mouth in the morning. [facility] tretinoin 0.075 % Crea 2022-0 04-28 00:00: 00 Yes [id number] 1g Apply 1 g to area(s) at bedtime. [facility] valACYclovi r 1 gram tablet 2022-0 04-28 00:00: 00 Yes [id number] 1g Take 1 tablet by mouth in the morning. [facility] tretinoin 0.075 % Crea 0 04-28 00:00: 00 Yes [id number] 1g Apply 1 g to area(s) at bedtime. [facility] valACYclovi r 1 gram tablet 0 04-28 00:00: 00 Yes [id number] 1g Take 1 tablet by mouth in the morning. [facility] tretinoin 0.075 % Crea 0 04-28 00:00: 00 Yes [id number] 1g Apply 1 g to area(s) at bedtime. [facility] valACYclovi r 1 gram tablet 0 04-28 00:00: 00 Yes [id number] 1g Take 1 tablet by mouth in the morning. [facility] tretinoin 0.075 % Crea 0 04-28 00:00: 00 Yes [id number] 1g Apply 1 g to area(s) at bedtime. [facility] valACYclovi r 1 gram tablet 2022-0 04-28 00:00: 00 Yes [id number] 1g Take 1 tablet by mouth in the morning. [facility] tretinoin 0.075 % Crea 0 04-28 00:00: 00 Yes [id number] 1g Apply 1 g to area(s) at bedtime. [facility] sofosbuvir- velpatasvir (EPCLUSA) 400-100 mg 3-0 04-21 00:00: 00 Yes [id number] 1{tbl} Take 1 tablet by mouth in the morning. [facility] sofosbuvir- velpatasvir (EPCLUSA) 400-100 mg 3-0 04-21 00:00: 00 Yes [id number] 1{tbl} Take 1 tablet by mouth in the morning. [facility] sofosbuvir- velpatasvir (EPCLUSA) 400-100 mg 3-0 04-21 00:00: 00 Yes [id number] 1{tbl} Take 1 tablet by mouth in the morning. [facility] sofosbuvir- velpatasvir (EPCLUSA) 400-100 mg 2023-0 9-12 00:00: 00 Yes [id number] 1{tbl} Take 1 tablet by mouth in the morning. [facility] sofosbuvir- velpatasvir (EPCLUSA) 400-100 mg 2023-0 9-12 00:00: 00 Yes [id number] 1{tbl} Take 1 tablet by mouth in the morning. [facility] sofosbuvir- velpatasvir (EPCLUSA) 400-100 mg 2023-0 9-12 00:00: 00 Yes [id number] 1{tbl} Take 1 tablet by mouth in the morning. [facility] sofosbuvir- velpatasvir (EPCLUSA) 400-100 mg 2023-0 9-12 00:00: 00 Yes [id number] 1{tbl} Take 1 tablet by mouth in the morning. [facility] sofosbuvir- velpatasvir (EPCLUSA) 400-100 mg 2023-0 9-12 00:00: 00 Yes [id number] 1{tbl} Take 1 tablet by mouth in the morning. [facility] sofosbuvir- velpatasvir (EPCLUSA) 400-100 mg 2023-0 9-12 00:00: 00 Yes [id number] 1{tbl} Take 1 tablet by mouth in the morning. [facility] sofosbuvir- velpatasvir (EPCLUSA) 400-100 mg 2023-0 9-12 00:00: 00 Yes [id number] 1{tbl} Take 1 tablet by mouth in the morning. [facility] sofosbuvir- velpatasvir (EPCLUSA) 400-100 mg 2023-0 9-12 00:00: 00 Yes [id number] 1{tbl} Take 1 tablet by mouth in the morning. [facility] sofosbuvir- velpatasvir (EPCLUSA) 400-100 mg 2023-0 9-12 00:00: 00 Yes [id number] 1{tbl} Take 1 tablet by mouth in the morning. [facility] sofosbuvir- velpatasvir (EPCLUSA) 400-100 mg 2023-0 9-12 00:00: 00 Yes [id number] 1{tbl} Take 1 tablet by mouth in the morning. [facility] sofosbuvir- velpatasvir (EPCLUSA) 400-100 mg 2023-0 9-12 00:00: 00 Yes [id number] 1{tbl} Take 1 tablet by mouth in the morning. [facility] sofosbuvir- velpatasvir (EPCLUSA) 400-100 mg 2023-0 9-12 00:00: 00 Yes [id number] 1{tbl} Take 1 tablet by mouth in the morning. [facility] sofosbuvir- velpatasvir (EPCLUSA) 400-100 mg 2023-0 9-12 00:00: 00 Yes [id number] 1{tbl} Take 1 tablet by mouth in the morning. [facility] sofosbuvir- velpatasvir (EPCLUSA) 400-100 mg 2023-0 9-12 00:00: 00 Yes [id number] 1{tbl} Take 1 tablet by mouth in the morning. [facility] sofosbuvir- velpatasvir (EPCLUSA) 400-100 mg 2023-0 9-12 00:00: 00 Yes [id number] 1{tbl} Take 1 tablet by mouth in the morning. [facility] sofosbuvir- velpatasvir (EPCLUSA) 400-100 mg 2023-0 9-12 00:00: 00 Yes [id number] 1{tbl} Take 1 tablet by mouth in the morning. [facility] sofosbuvir- velpatasvir (EPCLUSA) 400-100 mg 2023-0 9-12 00:00: 00 Yes [id number] 1{tbl} Take 1 tablet by mouth in the morning. [facility] sofosbuvir- velpatasvir (EPCLUSA) 400-100 mg 2023-0 9-12 00:00: 00 Yes [id number] 1{tbl} Take 1 tablet by mouth in the morning. [facility] sofosbuvir- velpatasvir (EPCLUSA) 400-100 mg 2023-0 9-12 00:00: 00 Yes [id number] 1{tbl} Take 1 tablet by mouth in the morning. [facility] sofosbuvir- velpatasvir (EPCLUSA) 400-100 mg 2023-0 9-12 00:00: 00 Yes [id number] 1{tbl} Take 1 tablet by mouth in the morning. [facility] sofosbuvir- velpatasvir (EPCLUSA) 400-100 mg 2023-0 9-12 00:00: 00 Yes [id number] 1{tbl} Take 1 tablet by mouth in the morning. [facility] sofosbuvir- velpatasvir (EPCLUSA) 400-100 mg 2023-0 9-12 00:00: 00 Yes [id number] 1{tbl} Take 1 tablet by mouth in the morning. [facility] sofosbuvir- velpatasvir (EPCLUSA) 400-100 mg 2023-0 9-12 00:00: 00 Yes [id number] 1{tbl} Take 1 tablet by mouth in the morning. [facility] sofosbuvir- velpatasvir (EPCLUSA) 400-100 mg 2023-0 9-12 00:00: 00 Yes [id number] 1{tbl} Take 1 tablet by mouth in the morning. [facility] sofosbuvir- velpatasvir (EPCLUSA) 400-100 mg 2023-0 9-12 00:00: 00 Yes [id number] 1{tbl} Take 1 tablet by mouth in the morning. [facility] sofosbuvir- velpatasvir (EPCLUSA) 400-100 mg 2023-0 9-12 00:00: 00 Yes [id number] 1{tbl} Take 1 tablet by mouth in the morning. [facility] sofosbuvir- velpatasvir (EPCLUSA) 400-100 mg 2023-0 9-12 00:00: 00 Yes [id number] 1{tbl} Take 1 tablet by mouth in the morning. [facility] sofosbuvir- velpatasvir (EPCLUSA) 400-100 mg 2023-0 9-12 00:00: 00 Yes [id number] 1{tbl} Take 1 tablet by mouth in the morning. [facility] sofosbuvir- velpatasvir (EPCLUSA) 400-100 mg 2023-0 9-12 00:00: 00 Yes [id number] 1{tbl} Take 1 tablet by mouth in the morning. [facility] sofosbuvir- velpatasvir (EPCLUSA) 400-100 mg 2023-0 9-12 00:00: 00 Yes [id number] 1{tbl} Take 1 tablet by mouth in the morning. [facility] sofosbuvir- velpatasvir (EPCLUSA) 400-100 mg 2023-0 9-12 00:00: 00 Yes [id number] 1{tbl} Take 1 tablet by mouth in the morning. [facility] sofosbuvir- velpatasvir (EPCLUSA) 400-100 mg 2023-0 9-12 00:00: 00 Yes [id number] 1{tbl} Take 1 tablet by mouth in the morning. [facility] sofosbuvir- velpatasvir (EPCLUSA) 400-100 mg 2023-0 9-12 00:00: 00 Yes [id number] 1{tbl} Take 1 tablet by mouth in the morning. [facility] sofosbuvir- velpatasvir (EPCLUSA) 400-100 mg 2023-0 9-12 00:00: 00 Yes [id number] 1{tbl} Take 1 tablet by mouth in the morning. [facility] sofosbuvir- velpatasvir (EPCLUSA) 400-100 mg 2023-0 9-12 00:00: 00 Yes [id number] 1{tbl} Take 1 tablet by mouth in the morning. [facility] sofosbuvir- velpatasvir (EPCLUSA) 400-100 mg 2023-0 9-12 00:00: 00 Yes [id number] 1{tbl} Take 1 tablet by mouth in the morning. [facility] sofosbuvir- velpatasvir (EPCLUSA) 400-100 mg 2023-0 9-12 00:00: 00 Yes [id number] 1{tbl} Take 1 tablet by mouth in the morning. [facility] sofosbuvir- velpatasvir (EPCLUSA) 400-100 mg 2023-0 9-12 00:00: 00 Yes [id number] 1{tbl} Take 1 tablet by mouth in the morning. [facility] sofosbuvir- velpatasvir (EPCLUSA) 400-100 mg 2023-0 9-12 00:00: 00 Yes [id number] 1{tbl} Take 1 tablet by mouth in the morning. [facility] sofosbuvir- velpatasvir (EPCLUSA) 400-100 mg 2023-0 9-12 00:00: 00 Yes [id number] 1{tbl} Take 1 tablet by mouth in the morning. [facility] sofosbuvir- velpatasvir (EPCLUSA) 400-100 mg 2023-0 9-12 00:00: 00 Yes [id number] 1{tbl} Take 1 tablet by mouth in the morning. [facility] sofosbuvir- velpatasvir (EPCLUSA) 400-100 mg 2023-0 9-12 00:00: 00 Yes [id number] 1{tbl} Take 1 tablet by mouth in the morning. [facility] sofosbuvir- velpatasvir (EPCLUSA) 400-100 mg 2023-0 9-12 00:00: 00 Yes [id number] 1{tbl} Take 1 tablet by mouth in the morning. [facility] sofosbuvir- velpatasvir (EPCLUSA) 400-100 mg 2023-0 9-12 00:00: 00 Yes [id number] 1{tbl} Take 1 tablet by mouth in the morning. [facility] sofosbuvir- velpatasvir (EPCLUSA) 400-100 mg 04-21 00:00: 00 07-10 00:00 :00 No [id number] 1{tbl} Take 1 tablet by mouth in the morning. [facility] sofosbuvir- velpatasvir (EPCLUSA) 400-100 mg 04-21 00:00: 00 07-10 00:00 :00 No [id number] 1{tbl} Take 1 tablet by mouth in the morning. [facility] buPROPion SR (WELLBUTRIN SR) 150 mg SR tablet 04-01 00:00: 00 Yes [id number] 150mg Take 1 tablet by mouth in the morning and 1 tablet in the evening. [facility] doxepin 50 mg capsule 04-01 00:00: 00 Yes [id number] 50mg Take 1 capsule by mouth at bedtime. [facility] DULoxetine 20 mg capsule 04-01 00:00: 00 Yes [id number] 20mg Take 1 capsule by mouth in the morning and 1 capsule in the evening. [facility] nirmatrelvi r-ritonavir (PAXLOVID, EUA,) 300 mg (150 mg x 2)-100 mg tablet 04-01 00:00: 00 Yes [id number] 3{tbl} Take 3 tablets by mouth in the morning and 3 tablets in the evening. [facility] albuterol 90 mcg/actuati on inhaler 04-01 00:00: 00 Yes [id number] 2{puff} Inhale 2 Puffs every 4 (four) hours as needed for Wheezing or Shortness of Breath. [facility] albuterol 2.5 mg /3 mL (0.083 %) nebulizer solution 04-01 00:00: 00 Yes [id number] 2.5mg Inhale 3 mL every 4 (four) hours as needed for Wheezing or Shortness of Breath. [facility] ipratropium 0.02 % nebulizer solution 04-01 00:00: 00 Yes [id number] .5mg Inhale 2.5 mL every 8 (eight) hours as needed for Wheezing or Shortness of Breath. [facility] topiramate 50 mg tablet 04-01 00:00: 00 Yes [id number] 50mg Take 1 tablet by mouth in the morning and 1 tablet in the evening. [facility] glecaprevir -pibrentasv ir (MAVYRET) 100-40 mg 04-01 00:00: 00 Yes [id number] 3{tbl} Take 3 tablets by mouth in the morning. [facility] QUEtiapine (SEROQUEL) 100 mg tablet 04-01 00:00: 00 Yes [id number] 100mg Take 1 tablet by mouth in the morning and 1 tablet in the evening. [facility] buPROPion SR (WELLBUTRIN SR) 150 mg SR tablet 04-01 00:00: 00 Yes [id number] 150mg Take 1 tablet by mouth in the morning and 1 tablet in the evening. [facility] doxepin 50 mg capsule 04-01 00:00: 00 Yes [id number] 50mg Take 1 capsule by mouth at bedtime. [facility] DULoxetine 20 mg capsule 04-01 00:00: 00 Yes [id number] 20mg Take 1 capsule by mouth in the morning and 1 capsule in the evening. [facility] nirmatrelvi r-ritonavir (PAXLOVID, EUA,) 300 mg (150 mg x 2)-100 mg tablet 04-01 00:00: 00 Yes [id number] 3{tbl} Take 3 tablets by mouth in the morning and 3 tablets in the evening. [facility] albuterol 90 mcg/actuati on inhaler 04-01 00:00: 00 Yes [id number] 2{puff} Inhale 2 Puffs every 4 (four) hours as needed for Wheezing or Shortness of Breath. [facility] albuterol 2.5 mg /3 mL (0.083 %) nebulizer solution 04-01 00:00: 00 Yes [id number] 2.5mg Inhale 3 mL every 4 (four) hours as needed for Wheezing or Shortness of Breath. [facility] ipratropium 0.02 % nebulizer solution 04-01 00:00: 00 Yes [id number] .5mg Inhale 2.5 mL every 8 (eight) hours as needed for Wheezing or Shortness of Breath. [facility] topiramate 50 mg tablet 04-01 00:00: 00 Yes [id number] 50mg Take 1 tablet by mouth in the morning and 1 tablet in the evening. [facility] glecaprevir -pibrentasv ir (MAVYRET) 100-40 mg 04-01 00:00: 00 Yes [id number] 3{tbl} Take 3 tablets by mouth in the morning. [facility] QUEtiapine (SEROQUEL) 100 mg tablet 04-01 00:00: 00 Yes [id number] 100mg Take 1 tablet by mouth in the morning and 1 tablet in the evening. [facility] buPROPion SR (WELLBUTRIN SR) 150 mg SR tablet 04-01 00:00: 00 Yes [id number] 150mg Take 1 tablet by mouth in the morning and 1 tablet in the evening. [facility] doxepin 50 mg capsule 04-01 00:00: 00 Yes [id number] 50mg Take 1 capsule by mouth at bedtime. [facility] DULoxetine 20 mg capsule 04-01 00:00: 00 Yes [id number] 20mg Take 1 capsule by mouth in the morning and 1 capsule in the evening. [facility] nirmatrelvi r-ritonavir (PAXLOVID, EUA,) 300 mg (150 mg x 2)-100 mg tablet 04-01 00:00: 00 Yes [id number] 3{tbl} Take 3 tablets by mouth in the morning and 3 tablets in the evening. [facility] albuterol 90 mcg/actuati on inhaler 04-01 00:00: 00 Yes [id number] 2{puff} Inhale 2 Puffs every 4 (four) hours as needed for Wheezing or Shortness of Breath. [facility] albuterol 2.5 mg /3 mL (0.083 %) nebulizer solution 04-01 00:00: 00 Yes [id number] 2.5mg Inhale 3 mL every 4 (four) hours as needed for Wheezing or Shortness of Breath. [facility] ipratropium 0.02 % nebulizer solution 04-01 00:00: 00 Yes [id number] .5mg Inhale 2.5 mL every 8 (eight) hours as needed for Wheezing or Shortness of Breath. [facility] topiramate 50 mg tablet 04-01 00:00: 00 Yes [id number] 50mg Take 1 tablet by mouth in the morning and 1 tablet in the evening. [facility] glecaprevir -pibrentasv ir (MAVYRET) 100-40 mg 04-01 00:00: 00 Yes [id number] 3{tbl} Take 3 tablets by mouth in the morning. [facility] QUEtiapine (SEROQUEL) 100 mg tablet 04-01 00:00: 00 Yes [id number] 100mg Take 1 tablet by mouth in the morning and 1 tablet in the evening. [facility] buPROPion SR (WELLBUTRIN SR) 150 mg SR tablet 04-01 00:00: 00 Yes [id number] 150mg Take 1 tablet by mouth in the morning and 1 tablet in the evening. [facility] doxepin 50 mg capsule 04-01 00:00: 00 Yes [id number] 50mg Take 1 capsule by mouth at bedtime. [facility] DULoxetine 20 mg capsule 04-01 00:00: 00 Yes [id number] 20mg Take 1 capsule by mouth in the morning and 1 capsule in the evening. [facility] nirmatrelvi r-ritonavir (PAXLOVID, EUA,) 300 mg (150 mg x 2)-100 mg tablet 04-01 00:00: 00 Yes [id number] 3{tbl} Take 3 tablets by mouth in the morning and 3 tablets in the evening. [facility] albuterol 90 mcg/actuati on inhaler 04-01 00:00: 00 Yes [id number] 2{puff} Inhale 2 Puffs every 4 (four) hours as needed for Wheezing or Shortness of Breath. [facility] albuterol 2.5 mg /3 mL (0.083 %) nebulizer solution 04-01 00:00: 00 Yes [id number] 2.5mg Inhale 3 mL every 4 (four) hours as needed for Wheezing or Shortness of Breath. [facility] ipratropium 0.02 % nebulizer solution 04-01 00:00: 00 Yes [id number] .5mg Inhale 2.5 mL every 8 (eight) hours as needed for Wheezing or Shortness of Breath. [facility] topiramate 50 mg tablet 04-01 00:00: 00 Yes [id number] 50mg Take 1 tablet by mouth in the morning and 1 tablet in the evening. [facility] glecaprevir -pibrentasv ir (MAVYRET) 100-40 mg 04-01 00:00: 00 Yes [id number] 3{tbl} Take 3 tablets by mouth in the morning. [facility] QUEtiapine (SEROQUEL) 100 mg tablet 04-01 00:00: 00 Yes [id number] 100mg Take 1 tablet by mouth in the morning and 1 tablet in the evening. [facility] buPROPion SR (WELLBUTRIN SR) 150 mg SR tablet 04-01 00:00: 00 Yes [id number] 150mg Take 1 tablet by mouth in the morning and 1 tablet in the evening. [facility] doxepin 50 mg capsule 04-01 00:00: 00 Yes [id number] 50mg Take 1 capsule by mouth at bedtime. [facility] DULoxetine 20 mg capsule 04-01 00:00: 00 Yes [id number] 20mg Take 1 capsule by mouth in the morning and 1 capsule in the evening. [facility] nirmatrelvi r-ritonavir (PAXLOVID, EUA,) 300 mg (150 mg x 2)-100 mg tablet 04-01 00:00: 00 Yes [id number] 3{tbl} Take 3 tablets by mouth in the morning and 3 tablets in the evening. [facility] albuterol 90 mcg/actuati on inhaler 04-01 00:00: 00 Yes [id number] 2{puff} Inhale 2 Puffs every 4 (four) hours as needed for Wheezing or Shortness of Breath. [facility] albuterol 2.5 mg /3 mL (0.083 %) nebulizer solution 04-01 00:00: 00 Yes [id number] 2.5mg Inhale 3 mL every 4 (four) hours as needed for Wheezing or Shortness of Breath. [facility] ipratropium 0.02 % nebulizer solution 04-01 00:00: 00 Yes [id number] .5mg Inhale 2.5 mL every 8 (eight) hours as needed for Wheezing or Shortness of Breath. [facility] topiramate 50 mg tablet 04-01 00:00: 00 Yes [id number] 50mg Take 1 tablet by mouth in the morning and 1 tablet in the evening. [facility] glecaprevir -pibrentasv ir (MAVYRET) 100-40 mg 04-01 00:00: 00 Yes [id number] 3{tbl} Take 3 tablets by mouth in the morning. [facility] QUEtiapine (SEROQUEL) 100 mg tablet 04-01 00:00: 00 Yes [id number] 100mg Take 1 tablet by mouth in the morning and 1 tablet in the evening. [facility] buPROPion SR (WELLBUTRIN SR) 150 mg SR tablet 04-01 00:00: 00 Yes [id number] 150mg Take 1 tablet by mouth in the morning and 1 tablet in the evening. [facility] doxepin 50 mg capsule 04-01 00:00: 00 Yes [id number] 50mg Take 1 capsule by mouth at bedtime. [facility] DULoxetine 20 mg capsule 04-01 00:00: 00 Yes [id number] 20mg Take 1 capsule by mouth in the morning and 1 capsule in the evening. [facility] nirmatrelvi r-ritonavir (PAXLOVID, EUA,) 300 mg (150 mg x 2)-100 mg tablet 04-01 00:00: 00 Yes [id number] 3{tbl} Take 3 tablets by mouth in the morning and 3 tablets in the evening. [facility] albuterol 90 mcg/actuati on inhaler 04-01 00:00: 00 Yes [id number] 2{puff} Inhale 2 Puffs every 4 (four) hours as needed for Wheezing or Shortness of Breath. [facility] albuterol 2.5 mg /3 mL (0.083 %) nebulizer solution 04-01 00:00: 00 Yes [id number] 2.5mg Inhale 3 mL every 4 (four) hours as needed for Wheezing or Shortness of Breath. [facility] ipratropium 0.02 % nebulizer solution 04-01 00:00: 00 Yes [id number] .5mg Inhale 2.5 mL every 8 (eight) hours as needed for Wheezing or Shortness of Breath. [facility] topiramate 50 mg tablet 04-01 00:00: 00 Yes [id number] 50mg Take 1 tablet by mouth in the morning and 1 tablet in the evening. [facility] QUEtiapine (SEROQUEL) 100 mg tablet 04-01 00:00: 00 Yes [id number] 100mg Take 1 tablet by mouth in the morning and 1 tablet in the evening. [facility] buPROPion SR (WELLBUTRIN SR) 150 mg SR tablet 04-01 00:00: 00 Yes [id number] 150mg Take 1 tablet by mouth in the morning and 1 tablet in the evening. [facility] doxepin 50 mg capsule 04-01 00:00: 00 Yes [id number] 50mg Take 1 capsule by mouth at bedtime. [facility] DULoxetine 20 mg capsule 04-01 00:00: 00 Yes [id number] 20mg Take 1 capsule by mouth in the morning and 1 capsule in the evening. [facility] nirmatrelvi r-ritonavir (PAXLOVID, EUA,) 300 mg (150 mg x 2)-100 mg tablet 04-01 00:00: 00 Yes [id number] 3{tbl} Take 3 tablets by mouth in the morning and 3 tablets in the evening. [facility] albuterol 90 mcg/actuati on inhaler 04-01 00:00: 00 Yes [id number] 2{puff} Inhale 2 Puffs every 4 (four) hours as needed for Wheezing or Shortness of Breath. [facility] albuterol 2.5 mg /3 mL (0.083 %) nebulizer solution 04-01 00:00: 00 Yes [id number] 2.5mg Inhale 3 mL every 4 (four) hours as needed for Wheezing or Shortness of Breath. [facility] ipratropium 0.02 % nebulizer solution 04-01 00:00: 00 Yes [id number] .5mg Inhale 2.5 mL every 8 (eight) hours as needed for Wheezing or Shortness of Breath. [facility] topiramate 50 mg tablet 04-01 00:00: 00 Yes [id number] 50mg Take 1 tablet by mouth in the morning and 1 tablet in the evening. [facility] QUEtiapine (SEROQUEL) 100 mg tablet 04-01 00:00: 00 Yes [id number] 100mg Take 1 tablet by mouth in the morning and 1 tablet in the evening. [facility] buPROPion SR (WELLBUTRIN SR) 150 mg SR tablet 04-01 00:00: 00 Yes [id number] 150mg Take 1 tablet by mouth in the morning and 1 tablet in the evening. [facility] doxepin 50 mg capsule 04-01 00:00: 00 Yes [id number] 50mg Take 1 capsule by mouth at bedtime. [facility] DULoxetine 20 mg capsule 04-01 00:00: 00 Yes [id number] 20mg Take 1 capsule by mouth in the morning and 1 capsule in the evening. [facility] nirmatrelvi r-ritonavir (PAXLOVID, EUA,) 300 mg (150 mg x 2)-100 mg tablet 04-01 00:00: 00 Yes [id number] 3{tbl} Take 3 tablets by mouth in the morning and 3 tablets in the evening. [facility] albuterol 90 mcg/actuati on inhaler 04-01 00:00: 00 Yes [id number] 2{puff} Inhale 2 Puffs every 4 (four) hours as needed for Wheezing or Shortness of Breath. [facility] albuterol 2.5 mg /3 mL (0.083 %) nebulizer solution 04-01 00:00: 00 Yes [id number] 2.5mg Inhale 3 mL every 4 (four) hours as needed for Wheezing or Shortness of Breath. [facility] ipratropium 0.02 % nebulizer solution 04-01 00:00: 00 Yes [id number] .5mg Inhale 2.5 mL every 8 (eight) hours as needed for Wheezing or Shortness of Breath. [facility] topiramate 50 mg tablet 04-01 00:00: 00 Yes [id number] 50mg Take 1 tablet by mouth in the morning and 1 tablet in the evening. [facility] QUEtiapine (SEROQUEL) 100 mg tablet 04-01 00:00: 00 Yes [id number] 100mg Take 1 tablet by mouth in the morning and 1 tablet in the evening. [facility] buPROPion SR (WELLBUTRIN SR) 150 mg SR tablet 04-01 00:00: 00 Yes [id number] 150mg Take 1 tablet by mouth in the morning and 1 tablet in the evening. [facility] doxepin 50 mg capsule 04-01 00:00: 00 Yes [id number] 50mg Take 1 capsule by mouth at bedtime. [facility] DULoxetine 20 mg capsule 04-01 00:00: 00 Yes [id number] 20mg Take 1 capsule by mouth in the morning and 1 capsule in the evening. [facility] nirmatrelvi r-ritonavir (PAXLOVID, EUA,) 300 mg (150 mg x 2)-100 mg tablet 04-01 00:00: 00 Yes [id number] 3{tbl} Take 3 tablets by mouth in the morning and 3 tablets in the evening. [facility] albuterol 90 mcg/actuati on inhaler 04-01 00:00: 00 Yes [id number] 2{puff} Inhale 2 Puffs every 4 (four) hours as needed for Wheezing or Shortness of Breath. [facility] albuterol 2.5 mg /3 mL (0.083 %) nebulizer solution 04-01 00:00: 00 Yes [id number] 2.5mg Inhale 3 mL every 4 (four) hours as needed for Wheezing or Shortness of Breath. [facility] ipratropium 0.02 % nebulizer solution 04-01 00:00: 00 Yes [id number] .5mg Inhale 2.5 mL every 8 (eight) hours as needed for Wheezing or Shortness of Breath. [facility] topiramate 50 mg tablet 04-01 00:00: 00 Yes [id number] 50mg Take 1 tablet by mouth in the morning and 1 tablet in the evening. [facility] QUEtiapine (SEROQUEL) 100 mg tablet 04-01 00:00: 00 Yes [id number] 100mg Take 1 tablet by mouth in the morning and 1 tablet in the evening. [facility] buPROPion SR (WELLBUTRIN SR) 150 mg SR tablet 04-01 00:00: 00 Yes [id number] 150mg Take 1 tablet by mouth in the morning and 1 tablet in the evening. [facility] doxepin 50 mg capsule 04-01 00:00: 00 Yes [id number] 50mg Take 1 capsule by mouth at bedtime. [facility] DULoxetine 20 mg capsule 04-01 00:00: 00 Yes [id number] 20mg Take 1 capsule by mouth in the morning and 1 capsule in the evening. [facility] nirmatrelvi r-ritonavir (PAXLOVID, EUA,) 300 mg (150 mg x 2)-100 mg tablet 04-01 00:00: 00 Yes [id number] 3{tbl} Take 3 tablets by mouth in the morning and 3 tablets in the evening. [facility] albuterol 90 mcg/actuati on inhaler 04-01 00:00: 00 Yes [id number] 2{puff} Inhale 2 Puffs every 4 (four) hours as needed for Wheezing or Shortness of Breath. [facility] albuterol 2.5 mg /3 mL (0.083 %) nebulizer solution 04-01 00:00: 00 Yes [id number] 2.5mg Inhale 3 mL every 4 (four) hours as needed for Wheezing or Shortness of Breath. [facility] ipratropium 0.02 % nebulizer solution 04-01 00:00: 00 Yes [id number] .5mg Inhale 2.5 mL every 8 (eight) hours as needed for Wheezing or Shortness of Breath. [facility] topiramate 50 mg tablet 04-01 00:00: 00 Yes [id number] 50mg Take 1 tablet by mouth in the morning and 1 tablet in the evening. [facility] QUEtiapine (SEROQUEL) 100 mg tablet 04-01 00:00: 00 Yes [id number] 100mg Take 1 tablet by mouth in the morning and 1 tablet in the evening. [facility] buPROPion SR (WELLBUTRIN SR) 150 mg SR tablet 04-01 00:00: 00 Yes [id number] 150mg Take 1 tablet by mouth in the morning and 1 tablet in the evening. [facility] doxepin 50 mg capsule 04-01 00:00: 00 Yes [id number] 50mg Take 1 capsule by mouth at bedtime. [facility] DULoxetine 20 mg capsule 04-01 00:00: 00 Yes [id number] 20mg Take 1 capsule by mouth in the morning and 1 capsule in the evening. [facility] nirmatrelvi r-ritonavir (PAXLOVID, EUA,) 300 mg (150 mg x 2)-100 mg tablet 04-01 00:00: 00 Yes [id number] 3{tbl} Take 3 tablets by mouth in the morning and 3 tablets in the evening. [facility] albuterol 90 mcg/actuati on inhaler 04-01 00:00: 00 Yes [id number] 2{puff} Inhale 2 Puffs every 4 (four) hours as needed for Wheezing or Shortness of Breath. [facility] albuterol 2.5 mg /3 mL (0.083 %) nebulizer solution 04-01 00:00: 00 Yes [id number] 2.5mg Inhale 3 mL every 4 (four) hours as needed for Wheezing or Shortness of Breath. [facility] ipratropium 0.02 % nebulizer solution 04-01 00:00: 00 Yes [id number] .5mg Inhale 2.5 mL every 8 (eight) hours as needed for Wheezing or Shortness of Breath. [facility] topiramate 50 mg tablet 04-01 00:00: 00 Yes [id number] 50mg Take 1 tablet by mouth in the morning and 1 tablet in the evening. [facility] QUEtiapine (SEROQUEL) 100 mg tablet 04-01 00:00: 00 Yes [id number] 100mg Take 1 tablet by mouth in the morning and 1 tablet in the evening. [facility] buPROPion SR (WELLBUTRIN SR) 150 mg SR tablet 04-01 00:00: 00 Yes [id number] 150mg Take 1 tablet by mouth in the morning and 1 tablet in the evening. [facility] doxepin 50 mg capsule 04-01 00:00: 00 Yes [id number] 50mg Take 1 capsule by mouth at bedtime. [facility] DULoxetine 20 mg capsule 04-01 00:00: 00 Yes [id number] 20mg Take 1 capsule by mouth in the morning and 1 capsule in the evening. [facility] nirmatrelvi r-ritonavir (PAXLOVID, EUA,) 300 mg (150 mg x 2)-100 mg tablet 04-01 00:00: 00 Yes [id number] 3{tbl} Take 3 tablets by mouth in the morning and 3 tablets in the evening. [facility] albuterol 90 mcg/actuati on inhaler 04-01 00:00: 00 Yes [id number] 2{puff} Inhale 2 Puffs every 4 (four) hours as needed for Wheezing or Shortness of Breath. [facility] albuterol 2.5 mg /3 mL (0.083 %) nebulizer solution 04-01 00:00: 00 Yes [id number] 2.5mg Inhale 3 mL every 4 (four) hours as needed for Wheezing or Shortness of Breath. [facility] ipratropium 0.02 % nebulizer solution 04-01 00:00: 00 Yes [id number] .5mg Inhale 2.5 mL every 8 (eight) hours as needed for Wheezing or Shortness of Breath. [facility] topiramate 50 mg tablet 04-01 00:00: 00 Yes [id number] 50mg Take 1 tablet by mouth in the morning and 1 tablet in the evening. [facility] QUEtiapine (SEROQUEL) 100 mg tablet 04-01 00:00: 00 Yes [id number] 100mg Take 1 tablet by mouth in the morning and 1 tablet in the evening. [facility] buPROPion SR (WELLBUTRIN SR) 150 mg SR tablet 04-01 00:00: 00 Yes [id number] 150mg Take 1 tablet by mouth in the morning and 1 tablet in the evening. [facility] doxepin 50 mg capsule 04-01 00:00: 00 Yes [id number] 50mg Take 1 capsule by mouth at bedtime. [facility] DULoxetine 20 mg capsule 04-01 00:00: 00 Yes [id number] 20mg Take 1 capsule by mouth in the morning and 1 capsule in the evening. [facility] nirmatrelvi r-ritonavir (PAXLOVID, EUA,) 300 mg (150 mg x 2)-100 mg tablet 04-01 00:00: 00 Yes [id number] 3{tbl} Take 3 tablets by mouth in the morning and 3 tablets in the evening. [facility] albuterol 90 mcg/actuati on inhaler 04-01 00:00: 00 Yes [id number] 2{puff} Inhale 2 Puffs every 4 (four) hours as needed for Wheezing or Shortness of Breath. [facility] albuterol 2.5 mg /3 mL (0.083 %) nebulizer solution 04-01 00:00: 00 Yes [id number] 2.5mg Inhale 3 mL every 4 (four) hours as needed for Wheezing or Shortness of Breath. [facility] ipratropium 0.02 % nebulizer solution 04-01 00:00: 00 Yes [id number] .5mg Inhale 2.5 mL every 8 (eight) hours as needed for Wheezing or Shortness of Breath. [facility] topiramate 50 mg tablet 04-01 00:00: 00 Yes [id number] 50mg Take 1 tablet by mouth in the morning and 1 tablet in the evening. [facility] QUEtiapine (SEROQUEL) 100 mg tablet 04-01 00:00: 00 Yes [id number] 100mg Take 1 tablet by mouth in the morning and 1 tablet in the evening. [facility] buPROPion SR (WELLBUTRIN SR) 150 mg SR tablet 04-01 00:00: 00 Yes [id number] 150mg Take 1 tablet by mouth in the morning and 1 tablet in the evening. [facility] doxepin 50 mg capsule 04-01 00:00: 00 Yes [id number] 50mg Take 1 capsule by mouth at bedtime. [facility] DULoxetine 20 mg capsule 04-01 00:00: 00 Yes [id number] 20mg Take 1 capsule by mouth in the morning and 1 capsule in the evening. [facility] nirmatrelvi r-ritonavir (PAXLOVID, EUA,) 300 mg (150 mg x 2)-100 mg tablet 04-01 00:00: 00 Yes [id number] 3{tbl} Take 3 tablets by mouth in the morning and 3 tablets in the evening. [facility] albuterol 90 mcg/actuati on inhaler 04-01 00:00: 00 Yes [id number] 2{puff} Inhale 2 Puffs every 4 (four) hours as needed for Wheezing or Shortness of Breath. [facility] albuterol 2.5 mg /3 mL (0.083 %) nebulizer solution 04-01 00:00: 00 Yes [id number] 2.5mg Inhale 3 mL every 4 (four) hours as needed for Wheezing or Shortness of Breath. [facility] ipratropium 0.02 % nebulizer solution 04-01 00:00: 00 Yes [id number] .5mg Inhale 2.5 mL every 8 (eight) hours as needed for Wheezing or Shortness of Breath. [facility] topiramate 50 mg tablet 04-01 00:00: 00 Yes [id number] 50mg Take 1 tablet by mouth in the morning and 1 tablet in the evening. [facility] QUEtiapine (SEROQUEL) 100 mg tablet 04-01 00:00: 00 Yes [id number] 100mg Take 1 tablet by mouth in the morning and 1 tablet in the evening. [facility] buPROPion SR (WELLBUTRIN SR) 150 mg SR tablet 04-01:00: 00 Yes [id number] 150mg Take 1 tablet by mouth in the morning and 1 tablet in the evening. [facility] doxepin 50 mg capsule 04-01 00:00: 00 Yes [id number] 50mg Take 1 capsule by mouth at bedtime. [facility] DULoxetine 20 mg capsule 04-01 00:00: 00 Yes [id number] 20mg Take 1 capsule by mouth in the morning and 1 capsule in the evening. [facility] nirmatrelvi r-ritonavir (PAXLOVID, EUA,) 300 mg (150 mg x 2)-100 mg tablet 04-01 00:00: 00 Yes [id number] 3{tbl} Take 3 tablets by mouth in the morning and 3 tablets in the evening. [facility] albuterol 90 mcg/actuati on inhaler 04-01 00:00: 00 Yes [id number] 2{puff} Inhale 2 Puffs every 4 (four) hours as needed for Wheezing or Shortness of Breath. [facility] albuterol 2.5 mg /3 mL (0.083 %) nebulizer solution 04-01 00:00: 00 Yes [id number] 2.5mg Inhale 3 mL every 4 (four) hours as needed for Wheezing or Shortness of Breath. [facility] ipratropium 0.02 % nebulizer solution 04-01 00:00: 00 Yes [id number] .5mg Inhale 2.5 mL every 8 (eight) hours as needed for Wheezing or Shortness of Breath. [facility] topiramate 50 mg tablet 04-01 00:00: 00 Yes [id number] 50mg Take 1 tablet by mouth in the morning and 1 tablet in the evening. [facility] QUEtiapine (SEROQUEL) 100 mg tablet 04-01 00:00: 00 Yes [id number] 100mg Take 1 tablet by mouth in the morning and 1 tablet in the evening. [facility] buPROPion SR (WELLBUTRIN SR) 150 mg SR tablet 04-01 00:00: 00 Yes [id number] 150mg Take 1 tablet by mouth in the morning and 1 tablet in the evening. [facility] doxepin 50 mg capsule 04-01 00:00: 00 Yes [id number] 50mg Take 1 capsule by mouth at bedtime. [facility] DULoxetine 20 mg capsule 04-01 00:00: 00 Yes [id number] 20mg Take 1 capsule by mouth in the morning and 1 capsule in the evening. [facility] nirmatrelvi r-ritonavir (PAXLOVID, EUA,) 300 mg (150 mg x 2)-100 mg tablet 04-01 00:00: 00 Yes [id number] 3{tbl} Take 3 tablets by mouth in the morning and 3 tablets in the evening. [facility] albuterol 90 mcg/actuati on inhaler 04-01 00:00: 00 Yes [id number] 2{puff} Inhale 2 Puffs every 4 (four) hours as needed for Wheezing or Shortness of Breath. [facility] albuterol 2.5 mg /3 mL (0.083 %) nebulizer solution 04-01 00:00: 00 Yes [id number] 2.5mg Inhale 3 mL every 4 (four) hours as needed for Wheezing or Shortness of Breath. [facility] ipratropium 0.02 % nebulizer solution 04-01 00:00: 00 Yes [id number] .5mg Inhale 2.5 mL every 8 (eight) hours as needed for Wheezing or Shortness of Breath. [facility] topiramate 50 mg tablet 04-01 00:00: 00 Yes [id number] 50mg Take 1 tablet by mouth in the morning and 1 tablet in the evening. [facility] QUEtiapine (SEROQUEL) 100 mg tablet 04-01 00:00: 00 Yes [id number] 100mg Take 1 tablet by mouth in the morning and 1 tablet in the evening. [facility] buPROPion SR (WELLBUTRIN SR) 150 mg SR tablet 04-01 00:00: 00 Yes [id number] 150mg Take 1 tablet by mouth in the morning and 1 tablet in the evening. [facility] doxepin 50 mg capsule 04-01 00:00: 00 Yes [id number] 50mg Take 1 capsule by mouth at bedtime. [facility] DULoxetine 20 mg capsule 04-01 00:00: 00 Yes [id number] 20mg Take 1 capsule by mouth in the morning and 1 capsule in the evening. [facility] nirmatrelvi r-ritonavir (PAXLOVID, EUA,) 300 mg (150 mg x 2)-100 mg tablet 04-01 00:00: 00 Yes [id number] 3{tbl} Take 3 tablets by mouth in the morning and 3 tablets in the evening. [facility] albuterol 90 mcg/actuati on inhaler 04-01 00:00: 00 Yes [id number] 2{puff} Inhale 2 Puffs every 4 (four) hours as needed for Wheezing or Shortness of Breath. [facility] albuterol 2.5 mg /3 mL (0.083 %) nebulizer solution 04-01 00:00: 00 Yes [id number] 2.5mg Inhale 3 mL every 4 (four) hours as needed for Wheezing or Shortness of Breath. [facility] ipratropium 0.02 % nebulizer solution 04-01 00:00: 00 Yes [id number] .5mg Inhale 2.5 mL every 8 (eight) hours as needed for Wheezing or Shortness of Breath. [facility] topiramate 50 mg tablet 04-01 00:00: 00 Yes [id number] 50mg Take 1 tablet by mouth in the morning and 1 tablet in the evening. [facility] QUEtiapine (SEROQUEL) 100 mg tablet 04-01 00:00: 00 Yes [id number] 100mg Take 1 tablet by mouth in the morning and 1 tablet in the evening. [facility] buPROPion SR (WELLBUTRIN SR) 150 mg SR tablet 04-01 00:00: 00 Yes [id number] 150mg Take 1 tablet by mouth in the morning and 1 tablet in the evening. [facility] DULoxetine 20 mg capsule 04-01 00:00: 00 Yes [id number] 20mg Take 1 capsule by mouth in the morning and 1 capsule in the evening. [facility] albuterol 90 mcg/actuati on inhaler 04-01 00:00: 00 Yes [id number] 2{puff} Inhale 2 Puffs every 4 (four) hours as needed for Wheezing or Shortness of Breath. [facility] albuterol 2.5 mg /3 mL (0.083 %) nebulizer solution 04-01 00:00: 00 Yes [id number] 2.5mg Inhale 3 mL every 4 (four) hours as needed for Wheezing or Shortness of Breath. [facility] ipratropium 0.02 % nebulizer solution 04-01 00:00: 00 Yes [id number] .5mg Inhale 2.5 mL every 8 (eight) hours as needed for Wheezing or Shortness of Breath. [facility] topiramate 50 mg tablet 04-01 00:00: 00 Yes [id number] 50mg Take 1 tablet by mouth in the morning and 1 tablet in the evening. [facility] buPROPion SR (WELLBUTRIN SR) 150 mg SR tablet 04-01 00:00: 00 Yes [id number] 150mg Take 1 tablet by mouth in the morning and 1 tablet in the evening. [facility] DULoxetine 20 mg capsule 04-01 00:00: 00 Yes [id number] 20mg Take 1 capsule by mouth in the morning and 1 capsule in the evening. [facility] albuterol 90 mcg/actuati on inhaler 04-01 00:00: 00 Yes [id number] 2{puff} Inhale 2 Puffs every 4 (four) hours as needed for Wheezing or Shortness of Breath. [facility] albuterol 2.5 mg /3 mL (0.083 %) nebulizer solution 04-01 00:00: 00 Yes [id number] 2.5mg Inhale 3 mL every 4 (four) hours as needed for Wheezing or Shortness of Breath. [facility] ipratropium 0.02 % nebulizer solution 04-01 00:00: 00 Yes [id number] .5mg Inhale 2.5 mL every 8 (eight) hours as needed for Wheezing or Shortness of Breath. [facility] topiramate 50 mg tablet 04-01 00:00: 00 Yes [id number] 50mg Take 1 tablet by mouth in the morning and 1 tablet in the evening. [facility] buPROPion SR (WELLBUTRIN SR) 150 mg SR tablet 04-01 00:00: 00 Yes [id number] 150mg Take 1 tablet by mouth in the morning and 1 tablet in the evening. [facility] DULoxetine 20 mg capsule 04-01 00:00: 00 Yes [id number] 20mg Take 1 capsule by mouth in the morning and 1 capsule in the evening. [facility] albuterol 90 mcg/actuati on inhaler 04-01 00:00: 00 Yes [id number] 2{puff} Inhale 2 Puffs every 4 (four) hours as needed for Wheezing or Shortness of Breath. [facility] albuterol 2.5 mg /3 mL (0.083 %) nebulizer solution 04-01 00:00: 00 Yes [id number] 2.5mg Inhale 3 mL every 4 (four) hours as needed for Wheezing or Shortness of Breath. [facility] ipratropium 0.02 % nebulizer solution 04-01 00:00: 00 Yes [id number] .5mg Inhale 2.5 mL every 8 (eight) hours as needed for Wheezing or Shortness of Breath. [facility] topiramate 50 mg tablet 04-01 00:00: 00 Yes [id number] 50mg Take 1 tablet by mouth in the morning and 1 tablet in the evening. [facility] buPROPion SR (WELLBUTRIN SR) 150 mg SR tablet 04-01 00:00: 00 Yes [id number] 150mg Take 1 tablet by mouth in the morning and 1 tablet in the evening. [facility] DULoxetine 20 mg capsule 04-01 00:00: 00 Yes [id number] 20mg Take 1 capsule by mouth in the morning and 1 capsule in the evening. [facility] albuterol 90 mcg/actuati on inhaler 04-01 00:00: 00 Yes [id number] 2{puff} Inhale 2 Puffs every 4 (four) hours as needed for Wheezing or Shortness of Breath. [facility] albuterol 2.5 mg /3 mL (0.083 %) nebulizer solution 04-01 00:00: 00 Yes [id number] 2.5mg Inhale 3 mL every 4 (four) hours as needed for Wheezing or Shortness of Breath. [facility] ipratropium 0.02 % nebulizer solution 04-01 00:00: 00 Yes [id number] .5mg Inhale 2.5 mL every 8 (eight) hours as needed for Wheezing or Shortness of Breath. [facility] topiramate 50 mg tablet 04-01 00:00: 00 Yes [id number] 50mg Take 1 tablet by mouth in the morning and 1 tablet in the evening. [facility] buPROPion SR (WELLBUTRIN SR) 150 mg SR tablet 04-01 00:00: 00 Yes [id number] 150mg Take 1 tablet by mouth in the morning and 1 tablet in the evening. [facility] DULoxetine 20 mg capsule 04-01 00:00: 00 Yes [id number] 20mg Take 1 capsule by mouth in the morning and 1 capsule in the evening. [facility] albuterol 90 mcg/actuati on inhaler 04-01 00:00: 00 Yes [id number] 2{puff} Inhale 2 Puffs every 4 (four) hours as needed for Wheezing or Shortness of Breath. [facility] albuterol 2.5 mg /3 mL (0.083 %) nebulizer solution 04-01 00:00: 00 Yes [id number] 2.5mg Inhale 3 mL every 4 (four) hours as needed for Wheezing or Shortness of Breath. [facility] ipratropium 0.02 % nebulizer solution 04-01 00:00: 00 Yes [id number] .5mg Inhale 2.5 mL every 8 (eight) hours as needed for Wheezing or Shortness of Breath. [facility] topiramate 50 mg tablet 04-01 00:00: 00 Yes [id number] 50mg Take 1 tablet by mouth in the morning and 1 tablet in the evening. [facility] buPROPion SR (WELLBUTRIN SR) 150 mg SR tablet 04-01 00:00: 00 Yes [id number] 150mg Take 1 tablet by mouth in the morning and 1 tablet in the evening. [facility] DULoxetine 20 mg capsule 04-01 00:00: 00 Yes [id number] 20mg Take 1 capsule by mouth in the morning and 1 capsule in the evening. [facility] albuterol 90 mcg/actuati on inhaler 04-01 00:00: 00 Yes [id number] 2{puff} Inhale 2 Puffs every 4 (four) hours as needed for Wheezing or Shortness of Breath. [facility] albuterol 2.5 mg /3 mL (0.083 %) nebulizer solution 04-01 00:00: 00 Yes [id number] 2.5mg Inhale 3 mL every 4 (four) hours as needed for Wheezing or Shortness of Breath. [facility] ipratropium 0.02 % nebulizer solution 04-01 00:00: 00 Yes [id number] .5mg Inhale 2.5 mL every 8 (eight) hours as needed for Wheezing or Shortness of Breath. [facility] topiramate 50 mg tablet 04-01 00:00: 00 Yes [id number] 50mg Take 1 tablet by mouth in the morning and 1 tablet in the evening. [facility] buPROPion SR (WELLBUTRIN SR) 150 mg SR tablet 04-01 00:00: 00 Yes [id number] 150mg Take 1 tablet by mouth in the morning and 1 tablet in the evening. [facility] DULoxetine 20 mg capsule 04-01 00:00: 00 Yes [id number] 20mg Take 1 capsule by mouth in the morning and 1 capsule in the evening. [facility] albuterol 90 mcg/actuati on inhaler 04-01 00:00: 00 Yes [id number] 2{puff} Inhale 2 Puffs every 4 (four) hours as needed for Wheezing or Shortness of Breath. [facility] albuterol 2.5 mg /3 mL (0.083 %) nebulizer solution 04-01 00:00: 00 Yes [id number] 2.5mg Inhale 3 mL every 4 (four) hours as needed for Wheezing or Shortness of Breath. [facility] ipratropium 0.02 % nebulizer solution 04-01 00:00: 00 Yes [id number] .5mg Inhale 2.5 mL every 8 (eight) hours as needed for Wheezing or Shortness of Breath. [facility] topiramate 50 mg tablet 04-01 00:00: 00 Yes [id number] 50mg Take 1 tablet by mouth in the morning and 1 tablet in the evening. [facility] buPROPion SR (WELLBUTRIN SR) 150 mg SR tablet 04-01 00:00: 00 Yes [id number] 150mg Take 1 tablet by mouth in the morning and 1 tablet in the evening. [facility] DULoxetine 20 mg capsule 04-01 00:00: 00 Yes [id number] 20mg Take 1 capsule by mouth in the morning and 1 capsule in the evening. [facility] albuterol 90 mcg/actuati on inhaler 04-01 00:00: 00 Yes [id number] 2{puff} Inhale 2 Puffs every 4 (four) hours as needed for Wheezing or Shortness of Breath. [facility] albuterol 2.5 mg /3 mL (0.083 %) nebulizer solution 04-01 00:00: 00 Yes [id number] 2.5mg Inhale 3 mL every 4 (four) hours as needed for Wheezing or Shortness of Breath. [facility] ipratropium 0.02 % nebulizer solution 04-01 00:00: 00 Yes [id number] .5mg Inhale 2.5 mL every 8 (eight) hours as needed for Wheezing or Shortness of Breath. [facility] topiramate 50 mg tablet 04-01 00:00: 00 Yes [id number] 50mg Take 1 tablet by mouth in the morning and 1 tablet in the evening. [facility] buPROPion SR (WELLBUTRIN SR) 150 mg SR tablet 04-01 00:00: 00 Yes [id number] 150mg Take 1 tablet by mouth in the morning and 1 tablet in the evening. [facility] DULoxetine 20 mg capsule 04-01 00:00: 00 Yes [id number] 20mg Take 1 capsule by mouth in the morning and 1 capsule in the evening. [facility] albuterol 90 mcg/actuati on inhaler 04-01 00:00: 00 Yes [id number] 2{puff} Inhale 2 Puffs every 4 (four) hours as needed for Wheezing or Shortness of Breath. [facility] albuterol 2.5 mg /3 mL (0.083 %) nebulizer solution 04-01 00:00: 00 Yes [id number] 2.5mg Inhale 3 mL every 4 (four) hours as needed for Wheezing or Shortness of Breath. [facility] ipratropium 0.02 % nebulizer solution 04-01 00:00: 00 Yes [id number] .5mg Inhale 2.5 mL every 8 (eight) hours as needed for Wheezing or Shortness of Breath. [facility] topiramate 50 mg tablet 04-01 00:00: 00 Yes [id number] 50mg Take 1 tablet by mouth in the morning and 1 tablet in the evening. [facility] buPROPion SR (WELLBUTRIN SR) 150 mg SR tablet 04-01 00:00: 00 Yes [id number] 150mg Take 1 tablet by mouth in the morning and 1 tablet in the evening. [facility] DULoxetine 20 mg capsule 04-01 00:00: 00 Yes [id number] 20mg Take 1 capsule by mouth in the morning and 1 capsule in the evening. [facility] albuterol 90 mcg/actuati on inhaler 04-01 00:00: 00 Yes [id number] 2{puff} Inhale 2 Puffs every 4 (four) hours as needed for Wheezing or Shortness of Breath. [facility] albuterol 2.5 mg /3 mL (0.083 %) nebulizer solution 04-01 00:00: 00 Yes [id number] 2.5mg Inhale 3 mL every 4 (four) hours as needed for Wheezing or Shortness of Breath. [facility] ipratropium 0.02 % nebulizer solution 04-01 00:00: 00 Yes [id number] .5mg Inhale 2.5 mL every 8 (eight) hours as needed for Wheezing or Shortness of Breath. [facility] topiramate 50 mg tablet 04-01 00:00: 00 Yes [id number] 50mg Take 1 tablet by mouth in the morning and 1 tablet in the evening. [facility] buPROPion SR (WELLBUTRIN SR) 150 mg SR tablet 04-01 00:00: 00 Yes [id number] 150mg Take 1 tablet by mouth in the morning and 1 tablet in the evening. [facility] DULoxetine 20 mg capsule 04-01 00:00: 00 Yes [id number] 20mg Take 1 capsule by mouth in the morning and 1 capsule in the evening. [facility] albuterol 90 mcg/actuati on inhaler 04-01 00:00: 00 Yes [id number] 2{puff} Inhale 2 Puffs every 4 (four) hours as needed for Wheezing or Shortness of Breath. [facility] albuterol 2.5 mg /3 mL (0.083 %) nebulizer solution 04-01 00:00: 00 Yes [id number] 2.5mg Inhale 3 mL every 4 (four) hours as needed for Wheezing or Shortness of Breath. [facility] ipratropium 0.02 % nebulizer solution 04-01 00:00: 00 Yes [id number] .5mg Inhale 2.5 mL every 8 (eight) hours as needed for Wheezing or Shortness of Breath. [facility] topiramate 50 mg tablet 04-01 00:00: 00 Yes [id number] 50mg Take 1 tablet by mouth in the morning and 1 tablet in the evening. [facility] buPROPion SR (WELLBUTRIN SR) 150 mg SR tablet 04-01 00:00: 00 Yes [id number] 150mg Take 1 tablet by mouth in the morning and 1 tablet in the evening. [facility] DULoxetine 20 mg capsule 04-01 00:00: 00 Yes [id number] 20mg Take 1 capsule by mouth in the morning and 1 capsule in the evening. [facility] albuterol 90 mcg/actuati on inhaler 04-01 00:00: 00 Yes [id number] 2{puff} Inhale 2 Puffs every 4 (four) hours as needed for Wheezing or Shortness of Breath. [facility] albuterol 2.5 mg /3 mL (0.083 %) nebulizer solution 04-01 00:00: 00 Yes [id number] 2.5mg Inhale 3 mL every 4 (four) hours as needed for Wheezing or Shortness of Breath. [facility] ipratropium 0.02 % nebulizer solution 04-01 00:00: 00 Yes [id number] .5mg Inhale 2.5 mL every 8 (eight) hours as needed for Wheezing or Shortness of Breath. [facility] topiramate 50 mg tablet 04-01 00:00: 00 Yes [id number] 50mg Take 1 tablet by mouth in the morning and 1 tablet in the evening. [facility] buPROPion SR (WELLBUTRIN SR) 150 mg SR tablet 04-01 00:00: 00 Yes [id number] 150mg Take 1 tablet by mouth in the morning and 1 tablet in the evening. [facility] DULoxetine 20 mg capsule 04-01 00:00: 00 Yes [id number] 20mg Take 1 capsule by mouth in the morning and 1 capsule in the evening. [facility] albuterol 90 mcg/actuati on inhaler 04-01 00:00: 00 Yes [id number] 2{puff} Inhale 2 Puffs every 4 (four) hours as needed for Wheezing or Shortness of Breath. [facility] albuterol 2.5 mg /3 mL (0.083 %) nebulizer solution 04-01 00:00: 00 Yes [id number] 2.5mg Inhale 3 mL every 4 (four) hours as needed for Wheezing or Shortness of Breath. [facility] ipratropium 0.02 % nebulizer solution 04-01 00:00: 00 Yes [id number] .5mg Inhale 2.5 mL every 8 (eight) hours as needed for Wheezing or Shortness of Breath. [facility] topiramate 50 mg tablet 04-01 00:00: 00 Yes [id number] 50mg Take 1 tablet by mouth in the morning and 1 tablet in the evening. [facility] buPROPion SR (WELLBUTRIN SR) 150 mg SR tablet 04-01 00:00: 00 Yes [id number] 150mg Take 1 tablet by mouth in the morning and 1 tablet in the evening. [facility] DULoxetine 20 mg capsule 04-01 00:00: 00 Yes [id number] 20mg Take 1 capsule by mouth in the morning and 1 capsule in the evening. [facility] albuterol 90 mcg/actuati on inhaler 04-01 00:00: 00 Yes [id number] 2{puff} Inhale 2 Puffs every 4 (four) hours as needed for Wheezing or Shortness of Breath. [facility] albuterol 2.5 mg /3 mL (0.083 %) nebulizer solution 04-01 00:00: 00 Yes [id number] 2.5mg Inhale 3 mL every 4 (four) hours as needed for Wheezing or Shortness of Breath. [facility] ipratropium 0.02 % nebulizer solution 04-01 00:00: 00 Yes [id number] .5mg Inhale 2.5 mL every 8 (eight) hours as needed for Wheezing or Shortness of Breath. [facility] topiramate 50 mg tablet 04-01 00:00: 00 Yes [id number] 50mg Take 1 tablet by mouth in the morning and 1 tablet in the evening. [facility] buPROPion SR (WELLBUTRIN SR) 150 mg SR tablet 04-01 00:00: 00 Yes [id number] 150mg Take 1 tablet by mouth in the morning and 1 tablet in the evening. [facility] DULoxetine 20 mg capsule 04-01 00:00: 00 Yes [id number] 20mg Take 1 capsule by mouth in the morning and 1 capsule in the evening. [facility] albuterol 90 mcg/actuati on inhaler 04-01 00:00: 00 Yes [id number] 2{puff} Inhale 2 Puffs every 4 (four) hours as needed for Wheezing or Shortness of Breath. [facility] albuterol 2.5 mg /3 mL (0.083 %) nebulizer solution 04-01 00:00: 00 Yes [id number] 2.5mg Inhale 3 mL every 4 (four) hours as needed for Wheezing or Shortness of Breath. [facility] ipratropium 0.02 % nebulizer solution 04-01 00:00: 00 Yes [id number] .5mg Inhale 2.5 mL every 8 (eight) hours as needed for Wheezing or Shortness of Breath. [facility] topiramate 50 mg tablet 04-01 00:00: 00 Yes [id number] 50mg Take 1 tablet by mouth in the morning and 1 tablet in the evening. [facility] buPROPion SR (WELLBUTRIN SR) 150 mg SR tablet 04-01 00:00: 00 Yes [id number] 150mg Take 1 tablet by mouth in the morning and 1 tablet in the evening. [facility] DULoxetine 20 mg capsule 04-01 00:00: 00 Yes [id number] 20mg Take 1 capsule by mouth in the morning and 1 capsule in the evening. [facility] albuterol 90 mcg/actuati on inhaler 04-01 00:00: 00 Yes [id number] 2{puff} Inhale 2 Puffs every 4 (four) hours as needed for Wheezing or Shortness of Breath. [facility] albuterol 2.5 mg /3 mL (0.083 %) nebulizer solution 04-01 00:00: 00 Yes [id number] 2.5mg Inhale 3 mL every 4 (four) hours as needed for Wheezing or Shortness of Breath. [facility] ipratropium 0.02 % nebulizer solution 04-01 00:00: 00 Yes [id number] .5mg Inhale 2.5 mL every 8 (eight) hours as needed for Wheezing or Shortness of Breath. [facility] topiramate 50 mg tablet 04-01 00:00: 00 Yes [id number] 50mg Take 1 tablet by mouth in the morning and 1 tablet in the evening. [facility] buPROPion SR (WELLBUTRIN SR) 150 mg SR tablet 04-01 00:00: 00 Yes [id number] 150mg Take 1 tablet by mouth in the morning and 1 tablet in the evening. [facility] DULoxetine 20 mg capsule 04-01 00:00: 00 Yes [id number] 20mg Take 1 capsule by mouth in the morning and 1 capsule in the evening. [facility] albuterol 90 mcg/actuati on inhaler 04-01 00:00: 00 Yes [id number] 2{puff} Inhale 2 Puffs every 4 (four) hours as needed for Wheezing or Shortness of Breath. [facility] albuterol 2.5 mg /3 mL (0.083 %) nebulizer solution 04-01 00:00: 00 Yes [id number] 2.5mg Inhale 3 mL every 4 (four) hours as needed for Wheezing or Shortness of Breath. [facility] ipratropium 0.02 % nebulizer solution 04-01 00:00: 00 Yes [id number] .5mg Inhale 2.5 mL every 8 (eight) hours as needed for Wheezing or Shortness of Breath. [facility] topiramate 50 mg tablet 04-01 00:00: 00 Yes [id number] 50mg Take 1 tablet by mouth in the morning and 1 tablet in the evening. [facility] buPROPion SR (WELLBUTRIN SR) 150 mg SR tablet 04-01 00:00: 00 Yes [id number] 150mg Take 1 tablet by mouth in the morning and 1 tablet in the evening. [facility] DULoxetine 20 mg capsule 04-01 00:00: 00 Yes [id number] 20mg Take 1 capsule by mouth in the morning and 1 capsule in the evening. [facility] albuterol 90 mcg/actuati on inhaler 04-01 00:00: 00 Yes [id number] 2{puff} Inhale 2 Puffs every 4 (four) hours as needed for Wheezing or Shortness of Breath. [facility] albuterol 2.5 mg /3 mL (0.083 %) nebulizer solution 04-01 00:00: 00 Yes [id number] 2.5mg Inhale 3 mL every 4 (four) hours as needed for Wheezing or Shortness of Breath. [facility] ipratropium 0.02 % nebulizer solution 04-01 00:00: 00 Yes [id number] .5mg Inhale 2.5 mL every 8 (eight) hours as needed for Wheezing or Shortness of Breath. [facility] topiramate 50 mg tablet 04-01 00:00: 00 Yes [id number] 50mg Take 1 tablet by mouth in the morning and 1 tablet in the evening. [facility] buPROPion SR (WELLBUTRIN SR) 150 mg SR tablet 04-01 00:00: 00 Yes [id number] 150mg Take 1 tablet by mouth in the morning and 1 tablet in the evening. [facility] DULoxetine 20 mg capsule 04-01 00:00: 00 Yes [id number] 20mg Take 1 capsule by mouth in the morning and 1 capsule in the evening. [facility] albuterol 90 mcg/actuati on inhaler 04-01 00:00: 00 Yes [id number] 2{puff} Inhale 2 Puffs every 4 (four) hours as needed for Wheezing or Shortness of Breath. [facility] albuterol 2.5 mg /3 mL (0.083 %) nebulizer solution 04-01 00:00: 00 Yes [id number] 2.5mg Inhale 3 mL every 4 (four) hours as needed for Wheezing or Shortness of Breath. [facility] ipratropium 0.02 % nebulizer solution 04-01 00:00: 00 Yes [id number] .5mg Inhale 2.5 mL every 8 (eight) hours as needed for Wheezing or Shortness of Breath. [facility] topiramate 50 mg tablet 04-01 00:00: 00 Yes [id number] 50mg Take 1 tablet by mouth in the morning and 1 tablet in the evening. [facility] buPROPion SR (WELLBUTRIN SR) 150 mg SR tablet 04-01 00:00: 00 Yes [id number] 150mg Take 1 tablet by mouth in the morning and 1 tablet in the evening. [facility] DULoxetine 20 mg capsule 04-01 00:00: 00 Yes [id number] 20mg Take 1 capsule by mouth in the morning and 1 capsule in the evening. [facility] albuterol 90 mcg/actuati on inhaler 04-01 00:00: 00 Yes [id number] 2{puff} Inhale 2 Puffs every 4 (four) hours as needed for Wheezing or Shortness of Breath. [facility] albuterol 2.5 mg /3 mL (0.083 %) nebulizer solution 04-01 00:00: 00 Yes [id number] 2.5mg Inhale 3 mL every 4 (four) hours as needed for Wheezing or Shortness of Breath. [facility] ipratropium 0.02 % nebulizer solution 04-01 00:00: 00 Yes [id number] .5mg Inhale 2.5 mL every 8 (eight) hours as needed for Wheezing or Shortness of Breath. [facility] topiramate 50 mg tablet 04-01 00:00: 00 Yes [id number] 50mg Take 1 tablet by mouth in the morning and 1 tablet in the evening. [facility] buPROPion SR (WELLBUTRIN SR) 150 mg SR tablet 04-01 00:00: 00 Yes [id number] 150mg Take 1 tablet by mouth in the morning and 1 tablet in the evening. [facility] DULoxetine 20 mg capsule 04-01 00:00: 00 Yes [id number] 20mg Take 1 capsule by mouth in the morning and 1 capsule in the evening. [facility] albuterol 90 mcg/actuati on inhaler 04-01 00:00: 00 Yes [id number] 2{puff} Inhale 2 Puffs every 4 (four) hours as needed for Wheezing or Shortness of Breath. [facility] albuterol 2.5 mg /3 mL (0.083 %) nebulizer solution 04-01 00:00: 00 Yes [id number] 2.5mg Inhale 3 mL every 4 (four) hours as needed for Wheezing or Shortness of Breath. [facility] topiramate 50 mg tablet 04-01 00:00: 00 Yes [id number] 50mg Take 1 tablet by mouth in the morning and 1 tablet in the evening. [facility] buPROPion SR (WELLBUTRIN SR) 150 mg SR tablet 04-01 00:00: 00 Yes [id number] 150mg Take 1 tablet by mouth in the morning and 1 tablet in the evening. [facility] DULoxetine 20 mg capsule 04-01 00:00: 00 Yes [id number] 20mg Take 1 capsule by mouth in the morning and 1 capsule in the evening. [facility] albuterol 90 mcg/actuati on inhaler 04-01 00:00: 00 Yes [id number] 2{puff} Inhale 2 Puffs every 4 (four) hours as needed for Wheezing or Shortness of Breath. [facility] albuterol 2.5 mg /3 mL (0.083 %) nebulizer solution 04-01 00:00: 00 Yes [id number] 2.5mg Inhale 3 mL every 4 (four) hours as needed for Wheezing or Shortness of Breath. [facility] topiramate 50 mg tablet 04-01 00:00: 00 Yes [id number] 50mg Take 1 tablet by mouth in the morning and 1 tablet in the evening. [facility] buPROPion SR (WELLBUTRIN SR) 150 mg SR tablet 04-01 00:00: 00 Yes [id number] 150mg Take 1 tablet by mouth in the morning and 1 tablet in the evening. [facility] DULoxetine 20 mg capsule 04-01 00:00: 00 Yes [id number] 20mg Take 1 capsule by mouth in the morning and 1 capsule in the evening. [facility] albuterol 90 mcg/actuati on inhaler 04-01 00:00: 00 Yes [id number] 2{puff} Inhale 2 Puffs every 4 (four) hours as needed for Wheezing or Shortness of Breath. [facility] albuterol 2.5 mg /3 mL (0.083 %) nebulizer solution 04-01 00:00: 00 Yes [id number] 2.5mg Inhale 3 mL every 4 (four) hours as needed for Wheezing or Shortness of Breath. [facility] topiramate 50 mg tablet 04-01 00:00: 00 Yes [id number] 50mg Take 1 tablet by mouth in the morning and 1 tablet in the evening. [facility] buPROPion SR (WELLBUTRIN SR) 150 mg SR tablet 04-01 00:00: 00 Yes [id number] 150mg Take 1 tablet by mouth in the morning and 1 tablet in the evening. [facility] DULoxetine 20 mg capsule 04-01 00:00: 00 Yes [id number] 20mg Take 1 capsule by mouth in the morning and 1 capsule in the evening. [facility] albuterol 90 mcg/actuati on inhaler 04-01 00:00: 00 Yes [id number] 2{puff} Inhale 2 Puffs every 4 (four) hours as needed for Wheezing or Shortness of Breath. [facility] albuterol 2.5 mg /3 mL (0.083 %) nebulizer solution 04-01 00:00: 00 Yes [id number] 2.5mg Inhale 3 mL every 4 (four) hours as needed for Wheezing or Shortness of Breath. [facility] topiramate 50 mg tablet 04-01 00:00: 00 Yes [id number] 50mg Take 1 tablet by mouth in the morning and 1 tablet in the evening. [facility] buPROPion SR (WELLBUTRIN SR) 150 mg SR tablet 04-01 00:00: 00 Yes [id number] 150mg Take 1 tablet by mouth in the morning and 1 tablet in the evening. [facility] DULoxetine 20 mg capsule 04-01 00:00: 00 Yes [id number] 20mg Take 1 capsule by mouth in the morning and 1 capsule in the evening. [facility] albuterol 90 mcg/actuati on inhaler 04-01 00:00: 00 Yes [id number] 2{puff} Inhale 2 Puffs every 4 (four) hours as needed for Wheezing or Shortness of Breath. [facility] albuterol 2.5 mg /3 mL (0.083 %) nebulizer solution 04-01 00:00: 00 Yes [id number] 2.5mg Inhale 3 mL every 4 (four) hours as needed for Wheezing or Shortness of Breath. [facility] topiramate 50 mg tablet 04-01 00:00: 00 Yes [id number] 50mg Take 1 tablet by mouth in the morning and 1 tablet in the evening. [facility] buPROPion SR (WELLBUTRIN SR) 150 mg SR tablet 04-01 00:00: 00 Yes [id number] 150mg Take 1 tablet by mouth in the morning and 1 tablet in the evening. [facility] DULoxetine 20 mg capsule 04-01 00:00: 00 Yes [id number] 20mg Take 1 capsule by mouth in the morning and 1 capsule in the evening. [facility] albuterol 90 mcg/actuati on inhaler 04-01 00:00: 00 Yes [id number] 2{puff} Inhale 2 Puffs every 4 (four) hours as needed for Wheezing or Shortness of Breath. [facility] albuterol 2.5 mg /3 mL (0.083 %) nebulizer solution 04-01 00:00: 00 Yes [id number] 2.5mg Inhale 3 mL every 4 (four) hours as needed for Wheezing or Shortness of Breath. [facility] topiramate 50 mg tablet 04-01 00:00: 00 Yes [id number] 50mg Take 1 tablet by mouth in the morning and 1 tablet in the evening. [facility] buPROPion SR (WELLBUTRIN SR) 150 mg SR tablet 04-01 00:00: 00 Yes [id number] 150mg Take 1 tablet by mouth in the morning and 1 tablet in the evening. [facility] DULoxetine 20 mg capsule 04-01 00:00: 00 Yes [id number] 20mg Take 1 capsule by mouth in the morning and 1 capsule in the evening. [facility] albuterol 90 mcg/actuati on inhaler 04-01 00:00: 00 Yes [id number] 2{puff} Inhale 2 Puffs every 4 (four) hours as needed for Wheezing or Shortness of Breath. [facility] albuterol 2.5 mg /3 mL (0.083 %) nebulizer solution 04-01 00:00: 00 Yes [id number] 2.5mg Inhale 3 mL every 4 (four) hours as needed for Wheezing or Shortness of Breath. [facility] topiramate 50 mg tablet 04-01 00:00: 00 Yes [id number] 50mg Take 1 tablet by mouth in the morning and 1 tablet in the evening. [facility] buPROPion SR (WELLBUTRIN SR) 150 mg SR tablet 04-01 00:00: 00 Yes [id number] 150mg Take 1 tablet by mouth in the morning and 1 tablet in the evening. [facility] DULoxetine 20 mg capsule 04-01 00:00: 00 Yes [id number] 20mg Take 1 capsule by mouth in the morning and 1 capsule in the evening. [facility] albuterol 90 mcg/actuati on inhaler 04-01 00:00: 00 Yes [id number] 2{puff} Inhale 2 Puffs every 4 (four) hours as needed for Wheezing or Shortness of Breath. [facility] albuterol 2.5 mg /3 mL (0.083 %) nebulizer solution 04-01 00:00: 00 Yes [id number] 2.5mg Inhale 3 mL every 4 (four) hours as needed for Wheezing or Shortness of Breath. [facility] topiramate 50 mg tablet 04-01 00:00: 00 Yes [id number] 50mg Take 1 tablet by mouth in the morning and 1 tablet in the evening. [facility] buPROPion SR (WELLBUTRIN SR) 150 mg SR tablet 04-01 00:00: 00 Yes [id number] 150mg Take 1 tablet by mouth in the morning and 1 tablet in the evening. [facility] DULoxetine 20 mg capsule 04-01 00:00: 00 Yes [id number] 20mg Take 1 capsule by mouth in the morning and 1 capsule in the evening. [facility] albuterol 90 mcg/actuati on inhaler 04-01 00:00: 00 Yes [id number] 2{puff} Inhale 2 Puffs every 4 (four) hours as needed for Wheezing or Shortness of Breath. [facility] albuterol 2.5 mg /3 mL (0.083 %) nebulizer solution 04-01 00:00: 00 Yes [id number] 2.5mg Inhale 3 mL every 4 (four) hours as needed for Wheezing or Shortness of Breath. [facility] topiramate 50 mg tablet 04-01 00:00: 00 Yes [id number] 50mg Take 1 tablet by mouth in the morning and 1 tablet in the evening. [facility] buPROPion SR (WELLBUTRIN SR) 150 mg SR tablet 04-01 00:00: 00 Yes [id number] 150mg Take 1 tablet by mouth in the morning and 1 tablet in the evening. [facility] DULoxetine 20 mg capsule 04-01 00:00: 00 Yes [id number] 20mg Take 1 capsule by mouth in the morning and 1 capsule in the evening. [facility] albuterol 90 mcg/actuati on inhaler 04-01 00:00: 00 Yes [id number] 2{puff} Inhale 2 Puffs every 4 (four) hours as needed for Wheezing or Shortness of Breath. [facility] albuterol 2.5 mg /3 mL (0.083 %) nebulizer solution 04-01 00:00: 00 Yes [id number] 2.5mg Inhale 3 mL every 4 (four) hours as needed for Wheezing or Shortness of Breath. [facility] topiramate 50 mg tablet 04-01 00:00: 00 Yes [id number] 50mg Take 1 tablet by mouth in the morning and 1 tablet in the evening. [facility] buPROPion SR (WELLBUTRIN SR) 150 mg SR tablet 04-01 00:00: 00 Yes [id number] 150mg Take 1 tablet by mouth in the morning and 1 tablet in the evening. [facility] DULoxetine 20 mg capsule 04-01 00:00: 00 Yes [id number] 20mg Take 1 capsule by mouth in the morning and 1 capsule in the evening. [facility] albuterol 90 mcg/actuati on inhaler 04-01 00:00: 00 Yes [id number] 2{puff} Inhale 2 Puffs every 4 (four) hours as needed for Wheezing or Shortness of Breath. [facility] albuterol 2.5 mg /3 mL (0.083 %) nebulizer solution 04-01 00:00: 00 Yes [id number] 2.5mg Inhale 3 mL every 4 (four) hours as needed for Wheezing or Shortness of Breath. [facility] topiramate 50 mg tablet 04-01 00:00: 00 Yes [id number] 50mg Take 1 tablet by mouth in the morning and 1 tablet in the evening. [facility] buPROPion SR (WELLBUTRIN SR) 150 mg SR tablet 04-01 00:00: 00 Yes [id number] 150mg Take 1 tablet by mouth in the morning and 1 tablet in the evening. [facility] DULoxetine 20 mg capsule 04-01 00:00: 00 Yes [id number] 20mg Take 1 capsule by mouth in the morning and 1 capsule in the evening. [facility] albuterol 90 mcg/actuati on inhaler 04-01 00:00: 00 Yes [id number] 2{puff} Inhale 2 Puffs every 4 (four) hours as needed for Wheezing or Shortness of Breath. [facility] albuterol 2.5 mg /3 mL (0.083 %) nebulizer solution 04-01 00:00: 00 Yes [id number] 2.5mg Inhale 3 mL every 4 (four) hours as needed for Wheezing or Shortness of Breath. [facility] topiramate 50 mg tablet 04-01 00:00: 00 Yes [id number] 50mg Take 1 tablet by mouth in the morning and 1 tablet in the evening. [facility] buPROPion SR (WELLBUTRIN SR) 150 mg SR tablet 04-01 00:00: 00 Yes [id number] 150mg Take 1 tablet by mouth in the morning and 1 tablet in the evening. [facility] DULoxetine 20 mg capsule 04-01 00:00: 00 Yes [id number] 20mg Take 1 capsule by mouth in the morning and 1 capsule in the evening. [facility] albuterol 90 mcg/actuati on inhaler 04-01 00:00: 00 Yes [id number] 2{puff} Inhale 2 Puffs every 4 (four) hours as needed for Wheezing or Shortness of Breath. [facility] albuterol 2.5 mg /3 mL (0.083 %) nebulizer solution 04-01 00:00: 00 Yes [id number] 2.5mg Inhale 3 mL every 4 (four) hours as needed for Wheezing or Shortness of Breath. [facility] topiramate 50 mg tablet 04-01 00:00: 00 Yes [id number] 50mg Take 1 tablet by mouth in the morning and 1 tablet in the evening. [facility] buPROPion SR (WELLBUTRIN SR) 150 mg SR tablet 04-01 00:00: 00 Yes [id number] 150mg Take 1 tablet by mouth in the morning and 1 tablet in the evening. [facility] DULoxetine 20 mg capsule 04-01 00:00: 00 Yes [id number] 20mg Take 1 capsule by mouth in the morning and 1 capsule in the evening. [facility] albuterol 90 mcg/actuati on inhaler 04-01 00:00: 00 Yes [id number] 2{puff} Inhale 2 Puffs every 4 (four) hours as needed for Wheezing or Shortness of Breath. [facility] albuterol 2.5 mg /3 mL (0.083 %) nebulizer solution 04-01 00:00: 00 Yes [id number] 2.5mg Inhale 3 mL every 4 (four) hours as needed for Wheezing or Shortness of Breath. [facility] topiramate 50 mg tablet 04-01 00:00: 00 Yes [id number] 50mg Take 1 tablet by mouth in the morning and 1 tablet in the evening. [facility] buPROPion SR (WELLBUTRIN SR) 150 mg SR tablet 04-01 00:00: 00 Yes [id number] 150mg Take 1 tablet by mouth in the morning and 1 tablet in the evening. [facility] DULoxetine 20 mg capsule 04-01 00:00: 00 Yes [id number] 20mg Take 1 capsule by mouth in the morning and 1 capsule in the evening. [facility] albuterol 90 mcg/actuati on inhaler 04-01 00:00: 00 Yes [id number] 2{puff} Inhale 2 Puffs every 4 (four) hours as needed for Wheezing or Shortness of Breath. [facility] albuterol 2.5 mg /3 mL (0.083 %) nebulizer solution 04-01 00:00: 00 Yes [id number] 2.5mg Inhale 3 mL every 4 (four) hours as needed for Wheezing or Shortness of Breath. [facility] topiramate 50 mg tablet 04-01 00:00: 00 Yes [id number] 50mg Take 1 tablet by mouth in the morning and 1 tablet in the evening. [facility] buPROPion SR (WELLBUTRIN SR) 150 mg SR tablet 04-01 00:00: 00 Yes [id number] 150mg Take 1 tablet by mouth in the morning and 1 tablet in the evening. [facility] DULoxetine 20 mg capsule 04-01 00:00: 00 Yes [id number] 20mg Take 1 capsule by mouth in the morning and 1 capsule in the evening. [facility] albuterol 90 mcg/actuati on inhaler 04-01 00:00: 00 Yes [id number] 2{puff} Inhale 2 Puffs every 4 (four) hours as needed for Wheezing or Shortness of Breath. [facility] albuterol 2.5 mg /3 mL (0.083 %) nebulizer solution 04-01 00:00: 00 Yes [id number] 2.5mg Inhale 3 mL every 4 (four) hours as needed for Wheezing or Shortness of Breath. [facility] topiramate 50 mg tablet 04-01 00:00: 00 Yes [id number] 50mg Take 1 tablet by mouth in the morning and 1 tablet in the evening. [facility] buPROPion SR (WELLBUTRIN SR) 150 mg SR tablet 04-01 00:00: 00 Yes [id number] 150mg Take 1 tablet by mouth in the morning and 1 tablet in the evening. [facility] DULoxetine 20 mg capsule 04-01 00:00: 00 Yes [id number] 20mg Take 1 capsule by mouth in the morning and 1 capsule in the evening. [facility] albuterol 90 mcg/actuati on inhaler 04-01 00:00: 00 Yes [id number] 2{puff} Inhale 2 Puffs every 4 (four) hours as needed for Wheezing or Shortness of Breath. [facility] albuterol 2.5 mg /3 mL (0.083 %) nebulizer solution 04-01 00:00: 00 Yes [id number] 2.5mg Inhale 3 mL every 4 (four) hours as needed for Wheezing or Shortness of Breath. [facility] topiramate 50 mg tablet 04-01 00:00: 00 Yes [id number] 50mg Take 1 tablet by mouth in the morning and 1 tablet in the evening. [facility] buPROPion SR (WELLBUTRIN SR) 150 mg SR tablet 04-01 00:00: 00 Yes [id number] 150mg Take 1 tablet by mouth in the morning and 1 tablet in the evening. [facility] DULoxetine 20 mg capsule 04-01 00:00: 00 Yes [id number] 20mg Take 1 capsule by mouth in the morning and 1 capsule in the evening. [facility] albuterol 90 mcg/actuati on inhaler 04-01 00:00: 00 Yes [id number] 2{puff} Inhale 2 Puffs every 4 (four) hours as needed for Wheezing or Shortness of Breath. [facility] albuterol 2.5 mg /3 mL (0.083 %) nebulizer solution 04-01 00:00: 00 Yes [id number] 2.5mg Inhale 3 mL every 4 (four) hours as needed for Wheezing or Shortness of Breath. [facility] topiramate 50 mg tablet 04-01 00:00: 00 Yes [id number] 50mg Take 1 tablet by mouth in the morning and 1 tablet in the evening. [facility] buPROPion SR (WELLBUTRIN SR) 150 mg SR tablet 04-01 00:00: 00 Yes [id number] 150mg Take 1 tablet by mouth in the morning and 1 tablet in the evening. [facility] DULoxetine 20 mg capsule 04-01 00:00: 00 Yes [id number] 20mg Take 1 capsule by mouth in the morning and 1 capsule in the evening. [facility] albuterol 90 mcg/actuati on inhaler 04-01 00:00: 00 Yes [id number] 2{puff} Inhale 2 Puffs every 4 (four) hours as needed for Wheezing or Shortness of Breath. [facility] albuterol 2.5 mg /3 mL (0.083 %) nebulizer solution 04-01 00:00: 00 Yes [id number] 2.5mg Inhale 3 mL every 4 (four) hours as needed for Wheezing or Shortness of Breath. [facility] topiramate 50 mg tablet 04-01 00:00: 00 Yes [id number] 50mg Take 1 tablet by mouth in the morning and 1 tablet in the evening. [facility] buPROPion SR (WELLBUTRIN SR) 150 mg SR tablet 04-01 00:00: 00 Yes [id number] 150mg Take 1 tablet by mouth in the morning and 1 tablet in the evening. [facility] DULoxetine 20 mg capsule 04-01 00:00: 00 Yes [id number] 20mg Take 1 capsule by mouth in the morning and 1 capsule in the evening. [facility] albuterol 90 mcg/actuati on inhaler 04-01 00:00: 00 Yes [id number] 2{puff} Inhale 2 Puffs every 4 (four) hours as needed for Wheezing or Shortness of Breath. [facility] albuterol 2.5 mg /3 mL (0.083 %) nebulizer solution 04-01 00:00: 00 Yes [id number] 2.5mg Inhale 3 mL every 4 (four) hours as needed for Wheezing or Shortness of Breath. [facility] topiramate 50 mg tablet 04-01 00:00: 00 Yes [id number] 50mg Take 1 tablet by mouth in the morning and 1 tablet in the evening. [facility] buPROPion SR (WELLBUTRIN SR) 150 mg SR tablet 04-01 00:00: 00 Yes [id number] 150mg Take 1 tablet by mouth in the morning and 1 tablet in the evening. [facility] DULoxetine 20 mg capsule 04-01 00:00: 00 Yes [id number] 20mg Take 1 capsule by mouth in the morning and 1 capsule in the evening. [facility] albuterol 90 mcg/actuati on inhaler 04-01 00:00: 00 Yes [id number] 2{puff} Inhale 2 Puffs every 4 (four) hours as needed for Wheezing or Shortness of Breath. [facility] albuterol 2.5 mg /3 mL (0.083 %) nebulizer solution 04-01 00:00: 00 Yes [id number] 2.5mg Inhale 3 mL every 4 (four) hours as needed for Wheezing or Shortness of Breath. [facility] topiramate 50 mg tablet 04-01 00:00: 00 Yes [id number] 50mg Take 1 tablet by mouth in the morning and 1 tablet in the evening. [facility] buPROPion SR (WELLBUTRIN SR) 150 mg SR tablet 04-01 00:00: 00 Yes [id number] 150mg Take 1 tablet by mouth in the morning and 1 tablet in the evening. [facility] DULoxetine 20 mg capsule 04-01 00:00: 00 Yes [id number] 20mg Take 1 capsule by mouth in the morning and 1 capsule in the evening. [facility] albuterol 90 mcg/actuati on inhaler 04-01 00:00: 00 Yes [id number] 2{puff} Inhale 2 Puffs every 4 (four) hours as needed for Wheezing or Shortness of Breath. [facility] albuterol 2.5 mg /3 mL (0.083 %) nebulizer solution 04-01 00:00: 00 Yes [id number] 2.5mg Inhale 3 mL every 4 (four) hours as needed for Wheezing or Shortness of Breath. [facility] topiramate 50 mg tablet 04-01 00:00: 00 Yes [id number] 50mg Take 1 tablet by mouth in the morning and 1 tablet in the evening. [facility] buPROPion SR (WELLBUTRIN SR) 150 mg SR tablet 04-01 00:00: 00 Yes [id number] 150mg Take 1 tablet by mouth in the morning and 1 tablet in the evening. [facility] DULoxetine 20 mg capsule 04-01 00:00: 00 Yes [id number] 20mg Take 1 capsule by mouth in the morning and 1 capsule in the evening. [facility] albuterol 90 mcg/actuati on inhaler 04-01 00:00: 00 Yes [id number] 2{puff} Inhale 2 Puffs every 4 (four) hours as needed for Wheezing or Shortness of Breath. [facility] albuterol 2.5 mg /3 mL (0.083 %) nebulizer solution 04-01 00:00: 00 Yes [id number] 2.5mg Inhale 3 mL every 4 (four) hours as needed for Wheezing or Shortness of Breath. [facility] topiramate 50 mg tablet 04-01 00:00: 00 Yes [id number] 50mg Take 1 tablet by mouth in the morning and 1 tablet in the evening. [facility] buPROPion SR (WELLBUTRIN SR) 150 mg SR tablet 04-01 00:00: 00 Yes [id number] 150mg Take 1 tablet by mouth in the morning and 1 tablet in the evening. [facility] DULoxetine 20 mg capsule 04-01 00:00: 00 Yes [id number] 20mg Take 1 capsule by mouth in the morning and 1 capsule in the evening. [facility] albuterol 90 mcg/actuati on inhaler 04-01 00:00: 00 Yes [id number] 2{puff} Inhale 2 Puffs every 4 (four) hours as needed for Wheezing or Shortness of Breath. [facility] albuterol 2.5 mg /3 mL (0.083 %) nebulizer solution 04-01 00:00: 00 Yes [id number] 2.5mg Inhale 3 mL every 4 (four) hours as needed for Wheezing or Shortness of Breath. [facility] topiramate 50 mg tablet 04-01 00:00: 00 Yes [id number] 50mg Take 1 tablet by mouth in the morning and 1 tablet in the evening. [facility] buPROPion SR (WELLBUTRIN SR) 150 mg SR tablet 04-01 00:00: 00 Yes [id number] 150mg Take 1 tablet by mouth in the morning and 1 tablet in the evening. [facility] DULoxetine 20 mg capsule 04-01 00:00: 00 Yes [id number] 20mg Take 1 capsule by mouth in the morning and 1 capsule in the evening. [facility] albuterol 90 mcg/actuati on inhaler 04-01 00:00: 00 Yes [id number] 2{puff} Inhale 2 Puffs every 4 (four) hours as needed for Wheezing or Shortness of Breath. [facility] albuterol 2.5 mg /3 mL (0.083 %) nebulizer solution 04-01 00:00: 00 Yes [id number] 2.5mg Inhale 3 mL every 4 (four) hours as needed for Wheezing or Shortness of Breath. [facility] topiramate 50 mg tablet 04-01 00:00: 00 Yes [id number] 50mg Take 1 tablet by mouth in the morning and 1 tablet in the evening. [facility] buPROPion SR (WELLBUTRIN SR) 150 mg SR tablet 04-01 00:00: 00 Yes [id number] 150mg Take 1 tablet by mouth in the morning and 1 tablet in the evening. [facility] DULoxetine 20 mg capsule 04-01 00:00: 00 Yes [id number] 20mg Take 1 capsule by mouth in the morning and 1 capsule in the evening. [facility] albuterol 90 mcg/actuati on inhaler 04-01 00:00: 00 Yes [id number] 2{puff} Inhale 2 Puffs every 4 (four) hours as needed for Wheezing or Shortness of Breath. [facility] albuterol 2.5 mg /3 mL (0.083 %) nebulizer solution 04-01 00:00: 00 Yes [id number] 2.5mg Inhale 3 mL every 4 (four) hours as needed for Wheezing or Shortness of Breath. [facility] topiramate 50 mg tablet 04-01 00:00: 00 Yes [id number] 50mg Take 1 tablet by mouth in the morning and 1 tablet in the evening. [facility] buPROPion SR (WELLBUTRIN SR) 150 mg SR tablet 04-01 00:00: 00 Yes [id number] 150mg Take 1 tablet by mouth in the morning and 1 tablet in the evening. [facility] DULoxetine 20 mg capsule 04-01 00:00: 00 Yes [id number] 20mg Take 1 capsule by mouth in the morning and 1 capsule in the evening. [facility] albuterol 90 mcg/actuati on inhaler 04-01 00:00: 00 Yes [id number] 2{puff} Inhale 2 Puffs every 4 (four) hours as needed for Wheezing or Shortness of Breath. [facility] albuterol 2.5 mg /3 mL (0.083 %) nebulizer solution 04-01 00:00: 00 Yes [id number] 2.5mg Inhale 3 mL every 4 (four) hours as needed for Wheezing or Shortness of Breath. [facility] topiramate 50 mg tablet 04-01 00:00: 00 Yes [id number] 50mg Take 1 tablet by mouth in the morning and 1 tablet in the evening. [facility] buPROPion SR (WELLBUTRIN SR) 150 mg SR tablet 04-01 00:00: 00 Yes [id number] 150mg Take 1 tablet by mouth in the morning and 1 tablet in the evening. [facility] DULoxetine 20 mg capsule 04-01 00:00: 00 Yes [id number] 20mg Take 1 capsule by mouth in the morning and 1 capsule in the evening. [facility] albuterol 90 mcg/actuati on inhaler 04-01 00:00: 00 Yes [id number] 2{puff} Inhale 2 Puffs every 4 (four) hours as needed for Wheezing or Shortness of Breath. [facility] albuterol 2.5 mg /3 mL (0.083 %) nebulizer solution 04-01 00:00: 00 Yes [id number] 2.5mg Inhale 3 mL every 4 (four) hours as needed for Wheezing or Shortness of Breath. [facility] topiramate 50 mg tablet 04-01 00:00: 00 Yes [id number] 50mg Take 1 tablet by mouth in the morning and 1 tablet in the evening. [facility] buPROPion SR (WELLBUTRIN SR) 150 mg SR tablet 04-01 00:00: 00 Yes [id number] 150mg Take 1 tablet by mouth in the morning and 1 tablet in the evening. [facility] DULoxetine 20 mg capsule 04-01 00:00: 00 Yes [id number] 20mg Take 1 capsule by mouth in the morning and 1 capsule in the evening. [facility] albuterol 90 mcg/actuati on inhaler 04-01 00:00: 00 Yes [id number] 2{puff} Inhale 2 Puffs every 4 (four) hours as needed for Wheezing or Shortness of Breath. [facility] albuterol 2.5 mg /3 mL (0.083 %) nebulizer solution 04-01 00:00: 00 Yes [id number] 2.5mg Inhale 3 mL every 4 (four) hours as needed for Wheezing or Shortness of Breath. [facility] topiramate 50 mg tablet 04-01 00:00: 00 Yes [id number] 50mg Take 1 tablet by mouth in the morning and 1 tablet in the evening. [facility] buPROPion SR (WELLBUTRIN SR) 150 mg SR tablet 04-01 00:00: 00 Yes [id number] 150mg Take 1 tablet by mouth in the morning and 1 tablet in the evening. [facility] DULoxetine 20 mg capsule 04-01 00:00: 00 Yes [id number] 20mg Take 1 capsule by mouth in the morning and 1 capsule in the evening. [facility] albuterol 90 mcg/actuati on inhaler 04-01 00:00: 00 Yes [id number] 2{puff} Inhale 2 Puffs every 4 (four) hours as needed for Wheezing or Shortness of Breath. [facility] albuterol 2.5 mg /3 mL (0.083 %) nebulizer solution 04-01 00:00: 00 Yes [id number] 2.5mg Inhale 3 mL every 4 (four) hours as needed for Wheezing or Shortness of Breath. [facility] topiramate 50 mg tablet 04-01 00:00: 00 Yes [id number] 50mg Take 1 tablet by mouth in the morning and 1 tablet in the evening. [facility] buPROPion SR (WELLBUTRIN SR) 150 mg SR tablet 04-01 00:00: 00 Yes [id number] 150mg Take 1 tablet by mouth in the morning and 1 tablet in the evening. [facility] DULoxetine 20 mg capsule 04-01 00:00: 00 Yes [id number] 20mg Take 1 capsule by mouth in the morning and 1 capsule in the evening. [facility] albuterol 90 mcg/actuati on inhaler 04-01 00:00: 00 Yes [id number] 2{puff} Inhale 2 Puffs every 4 (four) hours as needed for Wheezing or Shortness of Breath. [facility] albuterol 2.5 mg /3 mL (0.083 %) nebulizer solution 04-01 00:00: 00 Yes [id number] 2.5mg Inhale 3 mL every 4 (four) hours as needed for Wheezing or Shortness of Breath. [facility] topiramate 50 mg tablet 04-01 00:00: 00 Yes [id number] 50mg Take 1 tablet by mouth in the morning and 1 tablet in the evening. [facility] buPROPion SR (WELLBUTRIN SR) 150 mg SR tablet 04-01 00:00: 00 Yes [id number] 150mg Take 1 tablet by mouth in the morning and 1 tablet in the evening. [facility] DULoxetine 20 mg capsule 04-01 00:00: 00 Yes [id number] 20mg Take 1 capsule by mouth in the morning and 1 capsule in the evening. [facility] albuterol 90 mcg/actuati on inhaler 04-01 00:00: 00 Yes [id number] 2{puff} Inhale 2 Puffs every 4 (four) hours as needed for Wheezing or Shortness of Breath. [facility] albuterol 2.5 mg /3 mL (0.083 %) nebulizer solution 04-01 00:00: 00 Yes [id number] 2.5mg Inhale 3 mL every 4 (four) hours as needed for Wheezing or Shortness of Breath. [facility] topiramate 50 mg tablet 04-01 00:00: 00 Yes [id number] 50mg Take 1 tablet by mouth in the morning and 1 tablet in the evening. [facility] buPROPion SR (WELLBUTRIN SR) 150 mg SR tablet 04-01 00:00: 00 Yes [id number] 150mg Take 1 tablet by mouth in the morning and 1 tablet in the evening. [facility] DULoxetine 20 mg capsule 04-01 00:00: 00 Yes [id number] 20mg Take 1 capsule by mouth in the morning and 1 capsule in the evening. [facility] albuterol 90 mcg/actuati on inhaler 04-01 00:00: 00 Yes [id number] 2{puff} Inhale 2 Puffs every 4 (four) hours as needed for Wheezing or Shortness of Breath. [facility] albuterol 2.5 mg /3 mL (0.083 %) nebulizer solution 04-01 00:00: 00 Yes [id number] 2.5mg Inhale 3 mL every 4 (four) hours as needed for Wheezing or Shortness of Breath. [facility] topiramate 50 mg tablet 04-01 00:00: 00 Yes [id number] 50mg Take 1 tablet by mouth in the morning and 1 tablet in the evening. [facility] buPROPion SR (WELLBUTRIN SR) 150 mg SR tablet 04-01 00:00: 00 Yes [id number] 150mg Take 1 tablet by mouth in the morning and 1 tablet in the evening. [facility] DULoxetine 20 mg capsule 04-01 00:00: 00 Yes [id number] 20mg Take 1 capsule by mouth in the morning and 1 capsule in the evening. [facility] albuterol 90 mcg/actuati on inhaler 04-01 00:00: 00 Yes [id number] 2{puff} Inhale 2 Puffs every 4 (four) hours as needed for Wheezing or Shortness of Breath. [facility] albuterol 2.5 mg /3 mL (0.083 %) nebulizer solution 04-01 00:00: 00 Yes [id number] 2.5mg Inhale 3 mL every 4 (four) hours as needed for Wheezing or Shortness of Breath. [facility] topiramate 50 mg tablet 04-01 00:00: 00 Yes [id number] 50mg Take 1 tablet by mouth in the morning and 1 tablet in the evening. [facility] buPROPion SR (WELLBUTRIN SR) 150 mg SR tablet 04-01 00:00: 00 Yes [id number] 150mg Take 1 tablet by mouth in the morning and 1 tablet in the evening. [facility] DULoxetine 20 mg capsule 04-01 00:00: 00 Yes [id number] 20mg Take 1 capsule by mouth in the morning and 1 capsule in the evening. [facility] albuterol 90 mcg/actuati on inhaler 04-01 00:00: 00 Yes [id number] 2{puff} Inhale 2 Puffs every 4 (four) hours as needed for Wheezing or Shortness of Breath. [facility] albuterol 2.5 mg /3 mL (0.083 %) nebulizer solution 04-01 00:00: 00 Yes [id number] 2.5mg Inhale 3 mL every 4 (four) hours as needed for Wheezing or Shortness of Breath. [facility] topiramate 50 mg tablet 04-01 00:00: 00 Yes [id number] 50mg Take 1 tablet by mouth in the morning and 1 tablet in the evening. [facility] buPROPion SR (WELLBUTRIN SR) 150 mg SR tablet 04-01 00:00: 00 Yes [id number] 150mg Take 1 tablet by mouth in the morning and 1 tablet in the evening. [facility] DULoxetine 20 mg capsule 04-01 00:00: 00 Yes [id number] 20mg Take 1 capsule by mouth in the morning and 1 capsule in the evening. [facility] albuterol 90 mcg/actuati on inhaler 04-01 00:00: 00 Yes [id number] 2{puff} Inhale 2 Puffs every 4 (four) hours as needed for Wheezing or Shortness of Breath. [facility] albuterol 2.5 mg /3 mL (0.083 %) nebulizer solution 04-01 00:00: 00 Yes [id number] 2.5mg Inhale 3 mL every 4 (four) hours as needed for Wheezing or Shortness of Breath. [facility] topiramate 50 mg tablet 04-01 00:00: 00 Yes [id number] 50mg Take 1 tablet by mouth in the morning and 1 tablet in the evening. [facility] buPROPion SR (WELLBUTRIN SR) 150 mg SR tablet 04-01 00:00: 00 Yes [id number] 150mg Take 1 tablet by mouth in the morning and 1 tablet in the evening. [facility] DULoxetine 20 mg capsule 04-01 00:00: 00 Yes [id number] 20mg Take 1 capsule by mouth in the morning and 1 capsule in the evening. [facility] albuterol 90 mcg/actuati on inhaler 04-01 00:00: 00 Yes [id number] 2{puff} Inhale 2 Puffs every 4 (four) hours as needed for Wheezing or Shortness of Breath. [facility] albuterol 2.5 mg /3 mL (0.083 %) nebulizer solution 04-01 00:00: 00 Yes [id number] 2.5mg Inhale 3 mL every 4 (four) hours as needed for Wheezing or Shortness of Breath. [facility] topiramate 50 mg tablet 04-01 00:00: 00 Yes [id number] 50mg Take 1 tablet by mouth in the morning and 1 tablet in the evening. [facility] buPROPion SR (WELLBUTRIN SR) 150 mg SR tablet 04-01 00:00: 00 Yes [id number] 150mg Take 1 tablet by mouth in the morning and 1 tablet in the evening. [facility] DULoxetine 20 mg capsule 04-01 00:00: 00 Yes [id number] 20mg Take 1 capsule by mouth in the morning and 1 capsule in the evening. [facility] mcg/actuati on inhaler 04-01 00:00: 00 Yes [id number] 2{puff} Inhale 2 Puffs every 4 (four) hours as needed for Wheezing or Shortness of Breath. [facility] albuterol 2.5 mg /3 mL (0.083 %) nebulizer solution 04-01 00:00: 00 Yes [id number] 2.5mg Inhale 3 mL every 4 (four) hours as needed for Wheezing or Shortness of Breath. [facility] topiramate 50 mg tablet 04-01 00:00: 00 Yes [id number] 50mg Take 1 tablet by mouth in the morning and 1 tablet in the evening. [facility] buPROPion SR (WELLBUTRIN SR) 150 mg SR tablet 04-01 00:00: 00 Yes [id number] 150mg Take 1 tablet by mouth in the morning and 1 tablet in the evening. [facility] DULoxetine 20 mg capsule 04-01 00:00: 00 Yes [id number] 20mg Take 1 capsule by mouth in the morning and 1 capsule in the evening. [facility] albuterol 90 mcg/actuati on inhaler 04-01 00:00: 00 Yes [id number] 2{puff} Inhale 2 Puffs every 4 (four) hours as needed for Wheezing or Shortness of Breath. [facility] albuterol 2.5 mg /3 mL (0.083 %) nebulizer solution 04-01 00:00: 00 Yes [id number] 2.5mg Inhale 3 mL every 4 (four) hours as needed for Wheezing or Shortness of Breath. [facility] topiramate 50 mg tablet 04-01 00:00: 00 Yes [id number] 50mg Take 1 tablet by mouth in the morning and 1 tablet in the evening. [facility] buPROPion SR (WELLBUTRIN SR) 150 mg SR tablet 04-01 00:00: 00 Yes [id number] 150mg Take 1 tablet by mouth in the morning and 1 tablet in the evening. [facility] DULoxetine 20 mg capsule 04-01 00:00: 00 Yes [id number] 20mg Take 1 capsule by mouth in the morning and 1 capsule in the evening. [facility] albuterol 90 mcg/actuati on inhaler 04-01 00:00: 00 Yes [id number] 2{puff} Inhale 2 Puffs every 4 (four) hours as needed for Wheezing or Shortness of Breath. [facility] albuterol 2.5 mg /3 mL (0.083 %) nebulizer solution 04-01 00:00: 00 Yes [id number] 2.5mg Inhale 3 mL every 4 (four) hours as needed for Wheezing or Shortness of Breath. [facility] topiramate 50 mg tablet 04-01 00:00: 00 Yes [id number] 50mg Take 1 tablet by mouth in the morning and 1 tablet in the evening. [facility] buPROPion SR (WELLBUTRIN SR) 150 mg SR tablet 04-01 00:00: 00 Yes [id number] 150mg Take 1 tablet by mouth in the morning and 1 tablet in the evening. [facility] DULoxetine 20 mg capsule 04-01 00:00: 00 Yes [id number] 20mg Take 1 capsule by mouth in the morning and 1 capsule in the evening. [facility] albuterol 90 mcg/actuati on inhaler 04-01 00:00: 00 Yes [id number] 2{puff} Inhale 2 Puffs every 4 (four) hours as needed for Wheezing or Shortness of Breath. [facility] albuterol 2.5 mg /3 mL (0.083 %) nebulizer solution 04-01 00:00: 00 Yes [id number] 2.5mg Inhale 3 mL every 4 (four) hours as needed for Wheezing or Shortness of Breath. [facility] topiramate 50 mg tablet 04-01 00:00: 00 Yes [id number] 50mg Take 1 tablet by mouth in the morning and 1 tablet in the evening. [facility] buPROPion SR (WELLBUTRIN SR) 150 mg SR tablet 04-01 00:00: 00 Yes [id number] 150mg Take 1 tablet by mouth in the morning and 1 tablet in the evening. [facility] DULoxetine 20 mg capsule 04-01 00:00: 00 Yes [id number] 20mg Take 1 capsule by mouth in the morning and 1 capsule in the evening. [facility] albuterol 90 mcg/actuati on inhaler 04-01 00:00: 00 Yes [id number] 2{puff} Inhale 2 Puffs every 4 (four) hours as needed for Wheezing or Shortness of Breath. [facility] albuterol 2.5 mg /3 mL (0.083 %) nebulizer solution 04-01 00:00: 00 Yes [id number] 2.5mg Inhale 3 mL every 4 (four) hours as needed for Wheezing or Shortness of Breath. [facility] topiramate 50 mg tablet 04-01 00:00: 00 Yes [id number] 50mg Take 1 tablet by mouth in the morning and 1 tablet in the evening. [facility] albuterol 90 mcg/actuati on inhaler 04-01 00:00: 00 Yes [id number] 2{puff} Inhale 2 Puffs every 4 (four) hours as needed for Wheezing or Shortness of Breath. [facility] albuterol 2.5 mg /3 mL (0.083 %) nebulizer solution 04-01 00:00: 00 Yes [id number] 2.5mg Inhale 3 mL every 4 (four) hours as needed for Wheezing or Shortness of Breath. [facility] albuterol 90 mcg/actuati on inhaler 04-01 00:00: 00 Yes [id number] 2{puff} Inhale 2 Puffs every 4 (four) hours as needed for Wheezing or Shortness of Breath. [facility] albuterol 2.5 mg /3 mL (0.083 %) nebulizer solution 04-01 00:00: 00 Yes [id number] 2.5mg Inhale 3 mL every 4 (four) hours as needed for Wheezing or Shortness of Breath. [facility] al[facility]erol 90 mcg/actuati on inhaler 04-01 00:00: 00 Yes [id number] 2{puff} Inhale 2 Puffs every 4 (four) hours as needed for Wheezing or Shortness of Breath. [facility] albuterol 2.5 mg /3 mL (0.083 %) nebulizer solution 04-01 00:00: 00 Yes [id number] 2.5mg Inhale 3 mL every 4 (four) hours as needed for Wheezing or Shortness of Breath. [facility] albuterol 90 mcg/actuati on inhaler 04-01 00:00: 00 Yes [id number] 2{puff} Inhale 2 Puffs every 4 (four) hours as needed for Wheezing or Shortness of Breath. [facility] albuterol 2.5 mg /3 mL (0.083 %) nebulizer solution 04-01 00:00: 00 Yes [id number] 2.5mg Inhale 3 mL every 4 (four) hours as needed for Wheezing or Shortness of Breath. [facility] al[facility]erol 90 mcg/actuati on inhaler 04-01 00:00: 00 Yes [id number] 2{puff} Inhale 2 Puffs every 4 (four) hours as needed for Wheezing or Shortness of Breath. [facility] al[facility]erol 2.5 mg /3 mL (0.083 %) nebulizer solution 04-01 00:00: 00 Yes [id number] 2.5mg Inhale 3 mL every 4 (four) hours as needed for Wheezing or Shortness of Breath. [facility] albuterol 90 mcg/actuati on inhaler 04-01 00:00: 00 Yes [id number] 2{puff} Inhale 2 Puffs every 4 (four) hours as needed for Wheezing or Shortness of Breath. [facility] albuterol 2.5 mg /3 mL (0.083 %) nebulizer solution 04-01 00:00: 00 Yes [id number] 2.5mg Inhale 3 mL every 4 (four) hours as needed for Wheezing or Shortness of Breath. [facility] albuterol 90 mcg/actuati on inhaler 04-01 00:00: 00 Yes [id number] 2{puff} Inhale 2 Puffs every 4 (four) hours as needed for Wheezing or Shortness of Breath. [facility] albuterol 2.5 mg /3 mL (0.083 %) nebulizer solution 04-01 00:00: 00 Yes [id number] 2.5mg Inhale 3 mL every 4 (four) hours as needed for Wheezing or Shortness of Breath. [facility] albuterol 90 mcg/actuati on inhaler 04-01 00:00: 00 Yes [id number] 2{puff} Inhale 2 Puffs every 4 (four) hours as needed for Wheezing or Shortness of Breath. [facility] al[facility]erol 2.5 mg /3 mL (0.083 %) nebulizer solution 04-01 00:00: 00 Yes [id number] 2.5mg Inhale 3 mL every 4 (four) hours as needed for Wheezing or Shortness of Breath. [facility] albuterol 90 mcg/actuati on inhaler 04-01 00:00: 00 Yes [id number] 2{puff} Inhale 2 Puffs every 4 (four) hours as needed for Wheezing or Shortness of Breath. [facility] albuterol 2.5 mg /3 mL (0.083 %) nebulizer solution 04-01 00:00: 00 Yes [id number] 2.5mg Inhale 3 mL every 4 (four) hours as needed for Wheezing or Shortness of Breath. [facility] albuterol 90 mcg/actuati on inhaler 04-01 00:00: 00 Yes [id number] 2{puff} Inhale 2 Puffs every 4 (four) hours as needed for Wheezing or Shortness of Breath. [facility] albuterol 2.5 mg /3 mL (0.083 %) nebulizer solution 04-01 00:00: 00 Yes [id number] 2.5mg Inhale 3 mL every 4 (four) hours as needed for Wheezing or Shortness of Breath. [facility] albuterol 90 mcg/actuati on inhaler 04-01 00:00: 00 Yes [id number] 2{puff} Inhale 2 Puffs every 4 (four) hours as needed for Wheezing or Shortness of Breath. [facility] albuterol 2.5 mg /3 mL (0.083 %) nebulizer solution 04-01 00:00: 00 Yes [id number] 2.5mg Inhale 3 mL every 4 (four) hours as needed for Wheezing or Shortness of Breath. [facility] albuterol 90 mcg/actuati on inhaler 04-01 00:00: 00 Yes [id number] 2{puff} Inhale 2 Puffs every 4 (four) hours as needed for Wheezing or Shortness of Breath. [facility] albuterol 2.5 mg /3 mL (0.083 %) nebulizer solution 04-01 00:00: 00 Yes [id number] 2.5mg Inhale 3 mL every 4 (four) hours as needed for Wheezing or Shortness of Breath. [facility] albuterol 90 mcg/actuati on inhaler 04-01 00:00: 00 Yes [id number] 2{puff} Inhale 2 Puffs every 4 (four) hours as needed for Wheezing or Shortness of Breath. [facility] albuterol 2.5 mg /3 mL (0.083 %) nebulizer solution 04-01 00:00: 00 Yes [id number] 2.5mg Inhale 3 mL every 4 (four) hours as needed for Wheezing or Shortness of Breath. [facility] albuterol 90 mcg/actuati on inhaler 04-01 00:00: 00 Yes [id number] 2{puff} Inhale 2 Puffs every 4 (four) hours as needed for Wheezing or Shortness of Breath. [facility] albuterol 2.5 mg /3 mL (0.083 %) nebulizer solution 04-01 00:00: 00 Yes [id number] 2.5mg Inhale 3 mL every 4 (four) hours as needed for Wheezing or Shortness of Breath. [facility] albuterol 90 mcg/actuati on inhaler 04-01 00:00: 00 Yes [id number] 2{puff} Inhale 2 Puffs every 4 (four) hours as needed for Wheezing or Shortness of Breath. [facility] albuterol 2.5 mg /3 mL (0.083 %) nebulizer solution 04-01 00:00: 00 Yes [id number] 2.5mg Inhale 3 mL every 4 (four) hours as needed for Wheezing or Shortness of Breath. [facility] albuterol 90 mcg/actuati on inhaler 04-01 00:00: 00 Yes [id number] 2{puff} Inhale 2 Puffs every 4 (four) hours as needed for Wheezing or Shortness of Breath. [facility] albuterol 2.5 mg /3 mL (0.083 %) nebulizer solution 04-01 00:00: 00 Yes [id number] 2.5mg Inhale 3 mL every 4 (four) hours as needed for Wheezing or Shortness of Breath. [facility] albuterol 90 mcg/actuati on inhaler 04-01 00:00: 00 Yes [id number] 2{puff} Inhale 2 Puffs every 4 (four) hours as needed for Wheezing or Shortness of Breath. [facility] albuterol 2.5 mg /3 mL (0.083 %) nebulizer solution 04-01 00:00: 00 Yes [id number] 2.5mg Inhale 3 mL every 4 (four) hours as needed for Wheezing or Shortness of Breath. [facility] albuterol 90 mcg/actuati on inhaler 04-01 00:00: 00 Yes [id number] 2{puff} Inhale 2 Puffs every 4 (four) hours as needed for Wheezing or Shortness of Breath. [facility] albuterol 2.5 mg /3 mL (0.083 %) nebulizer solution 04-01 00:00: 00 Yes [id number] 2.5mg Inhale 3 mL every 4 (four) hours as needed for Wheezing or Shortness of Breath. [facility] albuterol 90 mcg/actuati on inhaler 04-01 00:00: 00 Yes [id number] 2{puff} Inhale 2 Puffs every 4 (four) hours as needed for Wheezing or Shortness of Breath. [facility] albuterol 2.5 mg /3 mL (0.083 %) nebulizer solution 04-01 00:00: 00 Yes [id number] 2.5mg Inhale 3 mL every 4 (four) hours as needed for Wheezing or Shortness of Breath. [facility] albuterol 90 mcg/actuati on inhaler 04-01 00:00: 00 Yes [id number] 2{puff} Inhale 2 Puffs every 4 (four) hours as needed for Wheezing or Shortness of Breath. [facility] albuterol 2.5 mg /3 mL (0.083 %) nebulizer solution 04-01 00:00: 00 Yes [id number] 2.5mg Inhale 3 mL every 4 (four) hours as needed for Wheezing or Shortness of Breath. [facility] albuterol 90 mcg/actuati on inhaler 04-01 00:00: 00 Yes [id number] 2{puff} Inhale 2 Puffs every 4 (four) hours as needed for Wheezing or Shortness of Breath. [facility] albuterol 2.5 mg /3 mL (0.083 %) nebulizer solution 04-01 00:00: 00 Yes [id number] 2.5mg Inhale 3 mL every 4 (four) hours as needed for Wheezing or Shortness of Breath. [facility] albuterol 90 mcg/actuati on inhaler 04-01 00:00: 00 Yes [id number] 2{puff} Inhale 2 Puffs every 4 (four) hours as needed for Wheezing or Shortness of Breath. [facility] albuterol 2.5 mg /3 mL (0.083 %) nebulizer solution 04-01 00:00: 00 Yes [id number] 2.5mg Inhale 3 mL every 4 (four) hours as needed for Wheezing or Shortness of Breath. [facility] albuterol 90 mcg/actuati on inhaler 04-01 00:00: 00 Yes [id number] 2{puff} Inhale 2 Puffs every 4 (four) hours as needed for Wheezing or Shortness of Breath. [facility] albuterol 2.5 mg /3 mL (0.083 %) nebulizer solution 04-01 00:00: 00 Yes [id number] 2.5mg Inhale 3 mL every 4 (four) hours as needed for Wheezing or Shortness of Breath. [facility] albuterol 90 mcg/actuati on inhaler 04-01 00:00: 00 Yes [id number] 2{puff} Inhale 2 Puffs every 4 (four) hours as needed for Wheezing or Shortness of Breath. [facility] albuterol 2.5 mg /3 mL (0.083 %) nebulizer solution 04-01 00:00: 00 Yes [id number] 2.5mg Inhale 3 mL every 4 (four) hours as needed for Wheezing or Shortness of Breath. [facility] albuterol 90 mcg/actuati on inhaler 04-01 00:00: 00 Yes [id number] 2{puff} Inhale 2 Puffs every 4 (four) hours as needed for Wheezing or Shortness of Breath. [facility] albuterol 2.5 mg /3 mL (0.083 %) nebulizer solution 04-01 00:00: 00 Yes [id number] 2.5mg Inhale 3 mL every 4 (four) hours as needed for Wheezing or Shortness of Breath. [facility] albuterol 90 mcg/actuati on inhaler 04-01 00:00: 00 Yes [id number] 2{puff} Inhale 2 Puffs every 4 (four) hours as needed for Wheezing or Shortness of Breath. [facility] albuterol 2.5 mg /3 mL (0.083 %) nebulizer solution 04-01 00:00: 00 Yes [id number] 2.5mg Inhale 3 mL every 4 (four) hours as needed for Wheezing or Shortness of Breath. [facility] albuterol 90 mcg/actuati on inhaler 04-01 00:00: 00 Yes [id number] 2{puff} Inhale 2 Puffs every 4 (four) hours as needed for Wheezing or Shortness of Breath. [facility] albuterol 2.5 mg /3 mL (0.083 %) nebulizer solution 04-01 00:00: 00 Yes [id number] 2.5mg Inhale 3 mL every 4 (four) hours as needed for Wheezing or Shortness of Breath. [facility] albuterol 90 mcg/actuati on inhaler 04-01 00:00: 00 Yes [id number] 2{puff} Inhale 2 Puffs every 4 (four) hours as needed for Wheezing or Shortness of Breath. [facility] albuterol 2.5 mg /3 mL (0.083 %) nebulizer solution 04-01 00:00: 00 Yes [id number] 2.5mg Inhale 3 mL every 4 (four) hours as needed for Wheezing or Shortness of Breath. [facility] albuterol 90 mcg/actuati on inhaler 04-01 00:00: 00 Yes [id number] 2{puff} Inhale 2 Puffs every 4 (four) hours as needed for Wheezing or Shortness of Breath. [facility] albuterol 2.5 mg /3 mL (0.083 %) nebulizer solution 04-01 00:00: 00 Yes [id number] 2.5mg Inhale 3 mL every 4 (four) hours as needed for Wheezing or Shortness of Breath. [facility] albuterol 90 mcg/actuati on inhaler 04-01 00:00: 00 Yes [id number] 2{puff} Inhale 2 Puffs every 4 (four) hours as needed for Wheezing or Shortness of Breath. [facility] albuterol 2.5 mg /3 mL (0.083 %) nebulizer solution 04-01 00:00: 00 Yes [id number] 2.5mg Inhale 3 mL every 4 (four) hours as needed for Wheezing or Shortness of Breath. [facility] albuterol 90 mcg/actuati on inhaler 04-01 00:00: 00 Yes [id number] 2{puff} Inhale 2 Puffs every 4 (four) hours as needed for Wheezing or Shortness of Breath. [facility] albuterol 2.5 mg /3 mL (0.083 %) nebulizer solution 04-01 00:00: 00 Yes [id number] 2.5mg Inhale 3 mL every 4 (four) hours as needed for Wheezing or Shortness of Breath. [facility] albuterol 90 mcg/actuati on inhaler 04-01 00:00: 00 Yes [id number] 2{puff} Inhale 2 Puffs every 4 (four) hours as needed for Wheezing or Shortness of Breath. [facility] albuterol 2.5 mg /3 mL (0.083 %) nebulizer solution 04-01 00:00: 00 Yes [id number] 2.5mg Inhale 3 mL every 4 (four) hours as needed for Wheezing or Shortness of Breath. [facility] albuterol 90 mcg/actuati on inhaler 04-01 00:00: 00 Yes [id number] 2{puff} Inhale 2 Puffs every 4 (four) hours as needed for Wheezing or Shortness of Breath. [facility] albuterol 2.5 mg /3 mL (0.083 %) nebulizer solution 04-01 00:00: 00 Yes [id number] 2.5mg Inhale 3 mL every 4 (four) hours as needed for Wheezing or Shortness of Breath. [facility] albuterol 90 mcg/actuati on inhaler 04-01 00:00: 00 Yes [id number] 2{puff} Inhale 2 Puffs every 4 (four) hours as needed for Wheezing or Shortness of Breath. [facility] al[facility]erol 2.5 mg /3 mL (0.083 %) nebulizer solution 04-01 00:00: 00 Yes [id number] 2.5mg Inhale 3 mL every 4 (four) hours as needed for Wheezing or Shortness of Breath. [facility] albuterol 90 mcg/actuati on inhaler 04-01 00:00: 00 Yes [id number] 2{puff} Inhale 2 Puffs every 4 (four) hours as needed for Wheezing or Shortness of Breath. [facility] albuterol 2.5 mg /3 mL (0.083 %) nebulizer solution 04-01 00:00: 00 Yes [id number] 2.5mg Inhale 3 mL every 4 (four) hours as needed for Wheezing or Shortness of Breath. [facility] albuterol 90 mcg/actuati on inhaler 04-01 00:00: 00 Yes [id number] 2{puff} Inhale 2 Puffs every 4 (four) hours as needed for Wheezing or Shortness of Breath. [facility]5 [facility] /3 mL (0.083 %) nebulizer solution 04-01 00:00: 00 Yes [id number] 2.5mg Inhale 3 mL every 4 (four) hours as needed for Wheezing or Shortness of Breath. [facility] mcg/actuati on inhaler 04-01 00:00: 00 Yes [id number] 2{puff} Inhale 2 Puffs every 4 (four) hours as needed for Wheezing or Shortness of Breath. [facility] ity [facility] albuterol 2.5 mg /3 mL (0.083 %) nebulizer solution 04-01 00:00: 00 Yes [id number] 2.5mg Inhale 3 mL every 4 (four) hours as needed for Wheezing or Shortness of Breath. [facility] ity [facility] albuterol 90 mcg/actuati on inhaler 04-01 00:00: 00 Yes [id number] 2{puff} Inhale 2 Puffs every 4 (four) hours as needed for Wheezing or Shortness of Breath. [facility] ity [facility] albuterol 2.5 mg /3 mL (0.083 %) nebulizer solution 04-01 00:00: 00 Yes [id number] 2.5mg Inhale 3 mL every 4 (four) hours as needed for Wheezing or Shortness of Breath. [facility] ity [facility] albuterol 90 mcg/actuati on inhaler 04-01 00:00: 00 Yes [id number] 2{puff} Inhale 2 Puffs every 4 (four) hours as needed for Wheezing or Shortness of Breath. [facility] ity [facility] albuterol 2.5 mg /3 mL (0.083 %) nebulizer solution 04-01 00:00: 00 Yes [id number] 2.5mg Inhale 3 mL every 4 (four) hours as needed for Wheezing or Shortness of Breath. [facility]erol 90 mcg/actuati on inhaler 04-01 00:00: 00 Yes [id number] 2{puff} Inhale 2 Puffs every 4 (four) hours as needed for Wheezing or Shortness of Breath. [facility] ity [facility] albuterol 2.5 mg /3 mL (0.083 %) nebulizer solution 04-01 00:00: 00 Yes [id number] 2.5mg Inhale 3 mL every 4 (four) hours as needed for Wheezing or Shortness of Breath. [facility] ity [facility] albuterol 90 mcg/actuati on inhaler 04-01 00:00: 00 Yes [id number] 2{puff} Inhale 2 Puffs every 4 (four) hours as needed for Wheezing or Shortness of Breath. [facility] albuterol 2.5 mg /3 mL (0.083 %) nebulizer solution 04-01 00:00: 00 Yes [id number] 2.5mg Inhale 3 mL every 4 (four) hours as needed for Wheezing or Shortness of Breath. [facility] albuterol 90 mcg/actuati on inhaler 04-01 00:00: 00 Yes [id number] 2{puff} Inhale 2 Puffs every 4 (four) hours as needed for Wheezing or Shortness of Breath. [facility] albuterol 2.5 mg /3 mL (0.083 %) nebulizer solution 04-01 00:00: 00 Yes [id number] 2.5mg Inhale 3 mL every 4 (four) hours as needed for Wheezing or Shortness of Breath. [facility] buPROPion SR (WELLBUTRIN SR) 150 mg SR tablet 04-01 00:00: 00 08-19 00:00 :00 No [id number] 150mg Take 1 tablet by mouth in the morning and 1 tablet in the evening. [facility] DULoxetine 20 mg capsule 04-01 00:00: 00 08-19 00:00 :00 No [id number] 20mg Take 1 capsule by mouth in the morning and 1 capsule in the evening. [facility] topiramate 50 mg tablet 04-01 00:00: 00 08-19 00:00 :00 No [id number] 50mg Take 1 tablet by mouth in the morning and 1 tablet in the evening. [facility] buPROPion SR (WELLBUTRIN SR) 150 mg SR tablet 04-01 00:00: 00 08-19 00:00 :00 No [id number] 150mg Take 1 tablet by mouth in the morning and 1 tablet in the evening. [facility] DULoxetine 20 mg capsule 04-01 00:00: 00 08-19 00:00 :00 No [id number] 20mg Take 1 capsule by mouth in the morning and 1 capsule in the evening. [facility] topiramate 50 mg tablet 04-01 00:00: 00 08-19 00:00 :00 No [id number] 50mg Take 1 tablet by mouth in the morning and 1 tablet in the evening. [facility] buPROPion SR (WELLBUTRIN SR) 150 mg SR tablet 04-01 00:00: 00 08-19 00:00 :00 No [id number] 150mg Take 1 tablet by mouth in the morning and 1 tablet in the evening. [facility] DULoxetine 20 mg capsule 04-01 00:00: 00 08-19 00:00 :00 No [id number] 20mg Take 1 capsule by mouth in the morning and 1 capsule in the evening. [facility] topiramate 50 mg tablet 04-01 00:00: 00 08-19 00:00 :00 No [id number] 50mg Take 1 tablet by mouth in the morning and 1 tablet in the evening. [facility] buPROPion SR (WELLBUTRIN SR) 150 mg SR tablet 04-01 00:00: 00 08-19 00:00 :00 No [id number] 150mg Take 1 tablet by mouth in the morning and 1 tablet in the evening. [facility] DULoxetine 20 mg capsule 04-01 00:00: 00 08-19 00:00 :00 No [id number] 20mg Take 1 capsule by mouth in the morning and 1 capsule in the evening. [facility] topiramate 50 mg tablet 04-01 00:00: 00 08-19 00:00 :00 No [id number] 50mg Take 1 tablet by mouth in the morning and 1 tablet in the evening. [facility] ipratropium 0.02 % nebulizer solution 04-01 00:00: 00 06-10 00:00 :00 No [id number] .5mg Inhale 2.5 mL every 8 (eight) hours as needed for Wheezing or Shortness of Breath. [facility] ipratropium 0.02 % nebulizer solution 04-01 00:00: 06-10 00:00 :00 No [id number] .5mg Inhale 2.5 mL every 8 (eight) hours as needed for Wheezing or Shortness of Breath. [facility] ipratropium 0.02 % nebulizer solution 04-01 00:00: 06-10 00:00 :00 No [id number] .5mg Inhale 2.5 mL every 8 (eight) hours as needed for Wheezing or Shortness of Breath. [facility] ipratropium 0.02 % nebulizer solution 04-01 00:00: 00 06-10 00:00 :00 No [id number] .5mg Inhale 2.5 mL every 8 (eight) hours as needed for Wheezing or Shortness of Breath. [facility] doxepin 50 mg capsule 04-01 00:00: 00 05-13 00:00 :00 No [id number] 50mg Take 1 capsule by mouth at bedtime. [facility] nirmatrelvi r-ritonavir (PAXLOVID, EUA,) 300 mg (150 mg x 2)-100 mg tablet 04-01 00:00: 00 05-13 00:00 :00 No [id number] 3{tbl} Take 3 tablets by mouth in the morning and 3 tablets in the evening. [facility] QUEtiapine (SEROQUEL) 100 mg tablet 04-01 00:00: 00 05-13 00:00 :00 No [id number] 100mg Take 1 tablet by mouth in the morning and 1 tablet in the evening. [facility] doxepin 50 mg capsule 04-01 00:00: 00 05-13 00:00 :00 No [id number] 50mg Take 1 capsule by mouth at bedtime. [facility] nirmatrelvi r-ritonavir (PAXLOVID, EUA,) 300 mg (150 mg x 2)-100 mg tablet 04-01 00:00: 00 05-13 00:00 :00 No [id number] 3{tbl} Take 3 tablets by mouth in the morning and 3 tablets in the evening. [facility] QUEtiapine (SEROQUEL) 100 mg tablet 04-01 00:00: 00 05-13 00:00 :00 No [id number] 100mg Take 1 tablet by mouth in the morning and 1 tablet in the evening. [facility] glecaprevir -pibrentasv ir (MAVYRET) 100-40 mg 04-01 00:00: 00 04-21 00:00 :00 No [id number] 3{tbl} Take 3 tablets by mouth in the morning. [facility] glecaprevir -pibrentasv ir (MAVYRET) 100-40 mg 04-01 00:00: 00 04-21 00:00 :00 No [id number] 3{tbl} Take 3 tablets by mouth in the morning. [facility] glecaprevir -pibrentasv ir (MAVYRET) 100-40 mg 04-01 00:00: 00 04-21 00:00 :00 No [id number] 3{tbl} Take 3 tablets by mouth in the morning. [facility] glecaprevir -pibrentasv ir (MAVYRET) 100-40 mg 04-01 00:00: 00 04-21 00:00 :00 No [id number] 3{tbl} Take 3 tablets by mouth in the morning. [facility] metroNIDAZO LE (FLAGYL) 500 mg tablet 04-01 00:00: 00 04-09 04:59 :00 No [id number] 500mg Take 1 tablet by mouth in the morning and 1 tablet in the evening. Do all this for 7 days. [facility] metroNIDAZO LE (FLAGYL) 500 mg tablet 04-01 00:00: 00 04-09 04:59 :00 No [id number] 500mg Take 1 tablet by mouth in the morning and 1 tablet in the evening. Do all this for 7 days. [facility] metroNIDAZO LE (FLAGYL) 500 mg tablet 2022-0 8 00:00: 00 04-09 04:59 :00 No [id number] 500mg Take 1 tablet by mouth in the morning and 1 tablet in the evening. Do all this for 7 days. [facility] metroNIDAZO LE (FLAGYL) 500 mg tablet 2022-0 04-01 00:00: 00 04-09 04:59 :00 No [id number] 500mg Take 1 tablet by mouth in the morning and 1 tablet in the evening. Do all this for 7 days. [facility] metroNIDAZO LE (FLAGYL) 500 mg tablet 2022-0 04-01 00:00: 00 04-09 04:59 :00 No [id number] 500mg Take 1 tablet by mouth in the morning and 1 tablet in the evening. Do all this for 7 days. [facility] metroNIDAZO LE (FLAGYL) 500 mg tablet 2022-04-01 00:00: 00 04-09 04:59 :00 No [id number] 500mg Take 1 tablet by mouth in the morning and 1 tablet in the evening. Do all this for 7 days. [facility] ibuprofen 600 mg tablet 2022-0 03-30 00:00: 00 Yes [id number] 600mg Take 1 tablet by mouth every 6 (six) hours as needed for Pain (scale 1-3) or Pain (scale 4-6). [facility] ibuprofen 600 mg tablet 2022-0 8 00:00: 00 Yes [id number] 600mg Take 1 tablet by mouth every 6 (six) hours as needed for Pain (scale 1-3) or Pain (scale 4-6). [facility] ibuprofen 600 mg tablet 2022-0 8 00:00: 00 Yes [id number] 600mg Take 1 tablet by mouth every 6 (six) hours as needed for Pain (scale 1-3) or Pain (scale 4-6). [facility] ibuprofen 600 mg tablet 0 8 00:00: 00 Yes [id number] 600mg Take 1 tablet by mouth every 6 (six) hours as needed for Pain (scale 1-3) or Pain (scale 4-6). [facility] ibuprofen 600 mg tablet 0 8 00:00: 00 04-01 00:00 :00 No [id number] 600mg Take 1 tablet by mouth every 6 (six) hours as needed for Pain (scale 1-3) or Pain (scale 4-6). [facility] ibuprofen 600 mg tablet 2022-0 8 00:00: 00 04-01 00:00 :00 No [id number] 600mg Take 1 tablet by mouth every 6 (six) hours as needed for Pain (scale 1-3) or Pain (scale 4-6). [facility] ibuprofen 600 mg tablet 2022-0 03-30 00:00: 00 04-01 00:00 :00 No [id number] 600mg Take 1 tablet by mouth every 6 (six) hours as needed for Pain (scale 1-3) or Pain (scale 4-6). [facility] metroNIDAZO LE 500 mg tablet 0 02-05 00:00: 00 Yes [id number] 500mg Take 1 tablet by mouth every 12 (twelve) hours. [facility] metroNIDAZO LE 500 mg tablet 0 02-05 00:00: 00 Yes [id number] 500mg Take 1 tablet by mouth every 12 (twelve) hours. [facility] metroNIDAZO LE 500 mg tablet 2022-0 02-05 00:00: 00 Yes [id number] 500mg Take 1 tablet by mouth every 12 (twelve) hours. [facility] metroNIDAZO LE 500 mg tablet 2022-0 02-05 00:00: 00 Yes [id number] 500mg Take 1 tablet by mouth every 12 (twelve) hours. [facility] metroNIDAZO LE 500 mg tablet 2022-0 29 00:00: 00 Yes [id number] 500mg Take 1 tablet by mouth every 12 (twelve) hours. [facility] metroNIDAZO LE 500 mg tablet 2022-0 02-05 00:00: 00 Yes [id number] 500mg Take 1 tablet by mouth every 12 (twelve) hours. [facility] metroNIDAZO LE 500 mg tablet 2022-0 02-05 00:00: 00 Yes [id number] 500mg Take 1 tablet by mouth every 12 (twelve) hours. [facility] metroNIDAZO LE 500 mg tablet 2022-0 02-05 00:00: 00 Yes [id number] 500mg Take 1 tablet by mouth every 12 (twelve) hours. [facility] metroNIDAZO LE 500 mg tablet 2022-0 29 00:00: 00 Yes [id number] 500mg Take 1 tablet by mouth every 12 (twelve) hours. [facility] metroNIDAZO LE 500 mg tablet 2022-0 02-05 00:00: 00 Yes [id number] 500mg Take 1 tablet by mouth every 12 (twelve) hours. [facility] metroNIDAZO LE 500 mg tablet 2022-0 02-05 00:00: 00 Yes [id number] 500mg Take 1 tablet by mouth every 12 (twelve) hours. [facility] metroNIDAZO LE 500 mg tablet 2022-0 29 00:00: 00 Yes [id number] 500mg Take 1 tablet by mouth every 12 (twelve) hours. [facility] metroNIDAZO LE 500 mg tablet 2022-0 29 00:00: 00 Yes [id number] 500mg Take 1 tablet by mouth every 12 (twelve) hours. [facility] metroNIDAZO LE 500 mg tablet 2022-0 29 00:00: 00 Yes [id number] 500mg Take 1 tablet by mouth every 12 (twelve) hours. [facility] metroNIDAZO LE 500 mg tablet 2022-0 29 00:00: 00 Yes [id number] 500mg Take 1 tablet by mouth every 12 (twelve) hours. [facility] metroNIDAZO LE 500 mg tablet 2022-0 -29 00:00: 00 Yes [id number] 500mg Take 1 tablet by mouth every 12 (twelve) hours. [facility] metroNIDAZO LE 500 mg tablet 02-05 00:00: 00 Yes [id number] 500mg Take 1 tablet by mouth every 12 (twelve) hours. [facility] metroNIDAZO LE 500 mg tablet 02-05 00:00: 00 04-01 00:00 :00 No [id number] 500mg Take 1 tablet by mouth every 12 (twelve) hours. [facility] medroxyPROG ESTERone (DEPO-PROVE RA) syringe 150 mg 02-02 22:00: 00 02-02 20:59 :00 No [id number] 150mg [facility] medroxyPROG ESTERone (DEPO-PROVE RA) syringe 150 mg 02-02 22:00: 00 02-02 20:59 :00 No [id number] 150mg 150 mg, Intramuscu lar, ONCE, 1 dose, On Thu02/02/23 at 1700, Routine [facility] valACYclovi r 1 gram tablet 02-02 00:00: 00 Yes [id number] 1g Take 1 tablet by mouth in the morning. [facility] valACYclovi r 1 gram tablet 02-02 00:00: 00 Yes [id number] 1g Take 1 tablet by mouth in the morning. [facility] valACYclovi r 1 gram tablet 02-02 00:00: 00 Yes [id number] 1g Take 1 tablet by mouth in the morning. [facility] valACYclovi r 1 gram tablet 02-02 00:00: 00 Yes [id number] 1g Take 1 tablet by mouth in the morning. [facility] valACYclovi r 1 gram tablet 02-02 00:00: 00 Yes [id number] 1g Take 1 tablet by mouth in the morning. [facility] valACYclovi r 1 gram tablet 02-02 00:00: 00 Yes [id number] 1g Take 1 tablet by mouth in the morning. [facility] valACYclovi r 1 gram tablet 02-02 00:00: 00 Yes [id number] 1g Take 1 tablet by mouth in the morning. [facility] valACYclovi r 1 gram tablet 2022-0 02-02 00:00: 00 Yes [id number] 1g Take 1 tablet by mouth in the morning. [facility] valACYclovi r 1 gram tablet 2022-0 02-02 00:00: 00 Yes [id number] 1g Take 1 tablet by mouth in the morning. [facility] valACYclovi r 1 gram tablet 2022-0 02-02 00:00: 00 Yes [id number] 1g Take 1 tablet by mouth in the morning. [facility] valACYclovi r 1 gram tablet 0 02-02 00:00: 00 Yes [id number] 1g Take 1 tablet by mouth in the morning. [facility] valACYclovi r 1 gram tablet 2022-0 02-02 00:00: 00 Yes [id number] 1g Take 1 tablet by mouth in the morning. [facility] valACYclovi r 1 gram tablet 2022-0 02-02 00:00: 00 Yes [id number] 1g Take 1 tablet by mouth in the morning. [facility] valACYclovi r 1 gram tablet 2022-0 02-02 00:00: 00 Yes [id number] 1g Take 1 tablet by mouth in the morning. [facility] valACYclovi r 1 gram tablet 2022-0 02-02 00:00: 00 Yes [id number] 1g Take 1 tablet by mouth in the morning. [facility] valACYclovi r 1 gram tablet 2022-0 02-02 00:00: 00 Yes [id number] 1g Take 1 tablet by mouth in the morning. [facility] valACYclovi r 1 gram tablet 2022-0 02-02 00:00: 00 Yes [id number] 1g Take 1 tablet by mouth in the morning. [facility] valACYclovi r 1 gram tablet 2022-0 02-02 00:00: 00 Yes [id number] 1g Take 1 tablet by mouth in the morning. [facility] valACYclovi r 1 gram tablet 2022-0 02-02 00:00: 00 Yes [id number] 1g Take 1 tablet by mouth in the morning. [facility] valACYclovi r 1 gram tablet 2023-0 6-26 00:00: 00 Yes [id number] 1g Take 1 tablet by mouth in the morning. [facility] valACYclovi r 1 gram tablet 2022-0 02-02 00:00: 00 Yes [id number] 1g Take 1 tablet by mouth in the morning. [facility] valACYclovi r 1 gram tablet 2022-0 02-02 00:00: 00 Yes [id number] 1g Take 1 tablet by mouth in the morning. [facility] valACYclovi r 1 gram tablet 2022-0 02-02 00:00: 00 Yes [id number] 1g Take 1 tablet by mouth in the morning. [facility] valACYclovi r 1 gram tablet 2022-0 02-02 00:00: 00 Yes [id number] 1g Take 1 tablet by mouth in the morning. [facility] valACYclovi r 1 gram tablet 2022-0 02-02 00:00: 00 Yes [id number] 1g Take 1 tablet by mouth in the morning. [facility] valACYclovi r 1 gram tablet 2022-0 02-02 00:00: 00 Yes [id number] 1g Take 1 tablet by mouth in the morning. [facility] valACYclovi r 1 gram tablet 2022-0 02-02 00:00: 00 Yes [id number] 1g Take 1 tablet by mouth in the morning. [facility] valACYclovi r 1 gram tablet 2022-0 02-02 00:00: 00 Yes [id number] 1g Take 1 tablet by mouth in the morning. [facility] valACYclovi r 1 gram tablet 2022-0 02-02 00:00: 00 Yes [id number] 1g Take 1 tablet by mouth in the morning. [facility] valACYclovi r 1 gram tablet 2022-0 02-02 00:00: 00 Yes [id number] 1g Take 1 tablet by mouth in the morning. [facility] valACYclovi r 1 gram tablet 2022-0 02-02 00:00: 00 Yes [id number] 1g Take 1 tablet by mouth in the morning. [facility] valACYclovi r 1 gram tablet 2022-0 02-02 00:00: 00 Yes [id number] 1g Take 1 tablet by mouth in the morning. [facility] valACYclovi r 1 gram tablet 0 02-02 00:00: 00 Yes [id number] 1g Take 1 tablet by mouth in the morning. [facility] valACYclovi r 1 gram tablet 0 02-02 00:00: 00 04-28 00:00 :00 No [id number] 1g Take 1 tablet by mouth in the morning. [facility] valACYclovi r 1 gram tablet 0 02-02 00:00: 00 04-28 00:00 :00 No [id number] 1g Take 1 tablet by mouth in the morning. [facility] valACYclovi r 1 gram tablet 0 02-02 00:00: 00 04-28 00:00 :00 No [id number] 1g Take 1 tablet by mouth in the morning. [facility] neomycin-po lymyxin-hyd rocortisone otic solution 2021-0 8-15 00:00: 00 Yes [id number] 4[drp] Place 4 Drops in right ear 4 (four) times daily. [facility] neomycin-po lymyxin-hyd rocortisone otic solution 2021-0 8-15 00:00: 00 Yes [id number] 4[drp] Place 4 Drops in right ear 4 (four) times daily. [facility] neomycin-po lymyxin-hyd rocortisone otic solution 2021-0 8-15 00:00: 00 Yes [id number] 4[drp] Place 4 Drops in right ear 4 (four) times daily. [facility] neomycin-po lymyxin-hyd rocortisone otic solution 2021-0 8-15 00:00: 00 Yes [id number] 4[drp] Place 4 Drops in right ear 4 (four) times daily. [facility] neomycin-po lymyxin-hyd rocortisone otic solution 2021-0 8-15 00:00: 00 Yes [id number] 4[drp] Place 4 Drops in right ear 4 (four) times daily. [facility] neomycin-po lymyxin-hyd rocortisone otic solution 2021-0 8-15 00:00: 00 Yes [id number] 4[drp] Place 4 Drops in right ear 4 (four) times daily. [facility] neomycin-po lymyxin-hyd rocortisone otic solution 2021-0 8-15 00:00: 00 Yes [id number] 4[drp] Place 4 Drops in right ear 4 (four) times daily. [facility] neomycin-po lymyxin-hyd rocortisone otic solution 2021-0 8-15 00:00: 00 Yes [id number] 4[drp] Place 4 Drops in right ear 4 (four) times daily. [facility] neomycin-po lymyxin-hyd rocortisone otic solution 2021-0 8-15 00:00: 00 Yes [id number] 4[drp] Place 4 Drops in right ear 4 (four) times daily. [facility] neomycin-po lymyxin-hyd rocortisone otic solution 2021-0 8-15 00:00: 00 Yes [id number] 4[drp] Place 4 Drops in right ear 4 (four) times daily. [facility] neomycin-po lymyxin-hyd rocortisone otic solution 2021-0 8-15 00:00: 00 Yes [id number] 4[drp] Place 4 Drops in right ear 4 (four) times daily. [facility] neomycin-po lymyxin-hyd rocortisone otic solution 2021-0 8-15 00:00: 00 Yes [id number] 4[drp] Place 4 Drops in right ear 4 (four) times daily. [facility] neomycin-po lymyxin-hyd rocortisone otic solution 2021-0 8-15 00:00: 00 Yes [id number] 4[drp] Place 4 Drops in right ear 4 (four) times daily. [facility] neomycin-po lymyxin-hyd rocortisone otic solution 2021-0 8-15 00:00: 00 Yes [id number] 4[drp] Place 4 Drops in right ear 4 (four) times daily. [facility] neomycin-po lymyxin-hyd rocortisone otic solution 2021-0 8-15 00:00: 00 Yes [id number] 4[drp] Place 4 Drops in right ear 4 (four) times daily. [facility] neomycin-po lymyxin-hyd rocortisone otic solution 2021-0 8-15 00:00: 00 Yes [id number] 4[drp] Place 4 Drops in right ear 4 (four) times daily. [facility] neomycin-po lymyxin-hyd rocortisone otic solution 2021-0 8-15 00:00: 00 Yes [id number] 4[drp] Place 4 Drops in right ear 4 (four) times daily. [facility] neomycin-po lymyxin-hyd rocortisone otic solution 2021-0 8-15 00:00: 00 Yes [id number] 4[drp] Place 4 Drops in right ear 4 (four) times daily. [facility] neomycin-po lymyxin-hyd rocortisone otic solution 2021-0 8-15 00:00: 00 Yes [id number] 4[drp] Place 4 Drops in right ear 4 (four) times daily. [facility] neomycin-po lymyxin-hyd rocortisone otic solution 2021-0 8-15 00:00: 00 Yes [id number] 4[drp] Place 4 Drops in right ear 4 (four) times daily. [facility] neomycin-po lymyxin-hyd rocortisone otic solution 2021-0 8-15 00:00: 00 Yes [id number] 4[drp] Place 4 Drops in right ear 4 (four) times daily. [facility] neomycin-po lymyxin-hyd rocortisone otic solution 2021-0 8-15 00:00: 00 Yes [id number] 4[drp] Place 4 Drops in right ear 4 (four) times daily. [facility] neomycin-po lymyxin-hyd rocortisone otic solution 2021-0 8-15 00:00: 00 Yes [id number] 4[drp] Place 4 Drops in right ear 4 (four) times daily. [facility] neomycin-po lymyxin-hyd rocortisone otic solution 2021-0 8-15 00:00: 00 Yes [id number] 4[drp] Place 4 Drops in right ear 4 (four) times daily. [facility] neomycin-po lymyxin-hyd rocortisone otic solution 2021-0 8-15 00:00: 00 Yes [id number] 4[drp] Place 4 Drops in right ear 4 (four) times daily. [facility] neomycin-po lymyxin-hyd rocortisone otic solution 8-15 00:00: 00 Yes [id number] 4[drp] Place 4 Drops in right ear 4 (four) times daily. [facility] neomycin-po lymyxin-hyd rocortisone otic solution 0 8-15 00:00: 00 Yes [id number] 4[drp] Place 4 Drops in right ear 4 (four) times daily. [facility] neomycin-po lymyxin-hyd rocortisone otic solution 8-15 00:00: 00 Yes [id number] 4[drp] Place 4 Drops in right ear 4 (four) times daily. [facility] neomycin-po lymyxin-hyd rocortisone otic solution 8-15 00:00: 00 Yes [id number] 4[drp] Place 4 Drops in right ear 4 (four) times daily. [facility] neomycin-po lymyxin-hyd rocortisone otic solution 8-15 00:00: 00 Yes [id number] 4[drp] Place 4 Drops in right ear 4 (four) times daily. [facility] neomycin-po lymyxin-hyd rocortisone otic solution 8-15 00:00: 00 04-01 00:00 :00 No [id number] 4[drp] Place 4 Drops in right ear 4 (four) times daily. [facility] neomycin-po lymyxin-hyd rocortisone otic solution 8-15 00:00: 00 04-01 00:00 :00 No [id number] 4[drp] Place 4 Drops in right ear 4 (four) times daily. [facility] neomycin-po lymyxin-hyd rocortisone otic solution 8-15 00:00: 00 04-01 00:00 :00 No [id number] 4[drp] Place 4 Drops in right ear 4 (four) times daily. [facility] amoxicillin 875 mg tablet 2022-0 8-15 00:00: 00 04-01 04:59 :00 No [id number] 875mg Take 1 tablet by mouth in the morning and 1 tablet in the evening. Do all this for 7 days. [facility] iopamidol (ISOVUE 370-500 mL) injection 55 mL 02-18 01:45: 00 02-18 01:45 :00 No [id number] 55mL 55 mL, Intravenou s, ONCE, 1 dose, On Thu02/17/22 at 2045, Routine [facility] ketorolac (TORADOL) injection 15 mg 02-18 01:45: 00 02-18 01:15 :00 No 15mg 15 mg, Slow IV Push, ONCE, 1 dose, On Thu02/17/22 at 2045, UZMA [facility] HYDROcodone -acetaminop hen (NORCO) 10-325 mg tablet 1 tablet 02-18 01:00: 00 02-18 00:20 :00 No 1{tbl} 1 tablet, Oral, ONCE NOW, 1 dose, On Thu02/17/22 at 2000, Routine [facility] ibuprofen 600 mg tablet 02-17 00:00: 00 Yes [id number] 600mg Take 1 tablet by mouth every 6 (six) hours as needed for Pain (scale 4-6). [facility] ibuprofen 600 mg tablet 02-17 00:00: 00 Yes [id number] 600mg Take 1 tablet by mouth every 6 (six) hours as needed for Pain (scale 4-6). [facility] ibuprofen 600 mg tablet 02-17 00:00: 00 Yes [id number] 600mg Take 1 tablet by mouth every 6 (six) hours as needed for Pain (scale 4-6). [facility] ibuprofen 600 mg tablet 02-17 00:00: 00 Yes [id number] 600mg Take 1 tablet by mouth every 6 (six) hours as needed for Pain (scale 4-6). [facility] ibuprofen 600 mg tablet 02-17 00:00: 00 Yes [id number] 600mg Take 1 tablet by mouth every 6 (six) hours as needed for Pain (scale 4-6). [facility] mg tablet 2-0 7-11 00:00: 00 Yes [id number] 600mg Take 1 tablet by mouth every 6 (six) hours as needed for Pain (scale 4-6). [facility] mg tablet 2-0 7-11 00:00: 00 Yes [id number] 600mg Take 1 tablet by mouth every 6 (six) hours as needed for Pain (scale 4-6). [facility] mg tablet 2-0 7-11 00:00: 00 Yes [id number] 600mg Take 1 tablet by mouth every 6 (six) hours as needed for Pain (scale 4-6). [facility] ibuprofen 600 mg tablet 2021-0 7-11 00:00: 00 Yes [id number] 600mg Take 1 tablet by mouth every 6 (six) hours as needed for Pain (scale 4-6). [facility] ibuprofen 600 mg tablet 2-0 7-11 00:00: 00 Yes [id number] 600mg Take 1 tablet by mouth every 6 (six) hours as needed for Pain (scale 4-6). [facility] ibuprofen 600 mg tablet 2-0 7-11 00:00: 00 Yes [id number] 600mg Take 1 tablet by mouth every 6 (six) hours as needed for Pain (scale 4-6). [facility] ibuprofen 600 mg tablet 2-0 7-11 00:00: 00 Yes [id number] 600mg Take 1 tablet by mouth every 6 (six) hours as needed for Pain (scale 4-6). [facility] ibuprofen 600 mg tablet 2-0 7-11 00:00: 00 Yes [id number] 600mg Take 1 tablet by mouth every 6 (six) hours as needed for Pain (scale 4-6). [facility] ibuprofen 600 mg tablet 2-0 7-11 00:00: 00 Yes [id number] 600mg Take 1 tablet by mouth every 6 (six) hours as needed for Pain (scale 4-6). [facility] mg tablet 2-0 7-11 00:00: 00 Yes [id number] 600mg Take 1 tablet by mouth every 6 (six) hours as needed for Pain (scale 4-6). [facility]fen 600 mg tablet 2-0 7-11 00:00: 00 Yes [id number] 600mg Take 1 tablet by mouth every 6 (six) hours as needed for Pain (scale 4-6). [facility]fen 600 mg tablet 2-0 7-11 00:00: 00 Yes [id number] 600mg Take 1 tablet by mouth every 6 (six) hours as needed for Pain (scale 4-6). [facility]fen 600 mg tablet 2-0 7-11 00:00: 00 Yes [id number] 600mg Take 1 tablet by mouth every 6 (six) hours as needed for Pain (scale 4-6). [facility]fen 600 mg tablet 2-0 7-11 00:00: 00 Yes [id number] 600mg Take 1 tablet by mouth every 6 (six) hours as needed for Pain (scale 4-6). [facility]fen 600 mg tablet 2-0 7-11 00:00: 00 Yes [id number] 600mg Take 1 tablet by mouth every 6 (six) hours as needed for Pain (scale 4-6). [facility]fen 600 mg tablet 2-0 7-11 00:00: 00 Yes [id number] 600mg Take 1 tablet by mouth every 6 (six) hours as needed for Pain (scale 4-6). [facility] ib[facility]fen 600 mg tablet 2-0 7-11 00:00: 00 Yes [id number] 600mg Take 1 tablet by mouth every 6 (six) hours as needed for Pain (scale 4-6). [facility] ib[facility]fen 600 mg tablet 2-0 7-11 00:00: 00 Yes [id number] 600mg Take 1 tablet by mouth every 6 (six) hours as needed for Pain (scale 4-6). [facility] ib[facility]fen 600 mg tablet 2-0 7-11 00:00: 00 Yes [id number] 600mg Take 1 tablet by mouth every 6 (six) hours as needed for Pain (scale 4-6). [facility] ib[facility]fen 600 mg tablet 02-17 00:00: 00 Yes [id number] 600mg Take 1 tablet by mouth every 6 (six) hours as needed for Pain (scale 4-6). [facility] ibuprofen 600 mg tablet 02-17 00:00: 00 Yes [id number] 600mg Take 1 tablet by mouth every 6 (six) hours as needed for Pain (scale 4-6). [facility] ibuprofen 600 mg tablet 02-17 00:00: 00 Yes [id number] 600mg Take 1 tablet by mouth every 6 (six) hours as needed for Pain (scale 4-6). [facility] ibuprofen 600 mg tablet 02-17 00:00: 00 03-30 00:00 :00 No [id number] 600mg Take 1 tablet by mouth every 6 (six) hours as needed for Pain (scale 4-6). [facility] ibuprofen 600 mg tablet 02-17 00:00: 00 03-30 00:00 :00 No [id number] 600mg Take 1 tablet by mouth every 6 (six) hours as needed for Pain (scale 4-6). [facility] ketorolac (TORADOL) injection 30 mg 11-24 09:45: 00 11-24 09:19 :00 No 30mg 30 mg, Slow IV Push, ONCE, 1 dose, On 11/24/21 at 0445, Routine
[employer] team member approving Restricted medication : ARIANNA WHITMORE [facility] morpHINE injection 4 mg 11-24 08:15: 00 11-24 08:03 :00 No 4mg 4 mg, Slow IV Push, ONCE, 1 dose, On 11/24/21 at 0315, STAT [facility] FENTanyl PF (SUBLIMAZE (PF)) injection 50 mcg 11-24 05:16: 00 11-24 05:20 :00 No 50ug 50 mcg, Slow IV Push, ONCE, 1 dose, On 11/24/21 at 0030, Routine [facility] ondansetron (ZOFRAN (PF)) injection 4 mg 11-24 04:30: 00 11-24 03:45 :00 No 4mg 4 mg, Slow IV Push, ONCE, 1 dose, On 11/23/21 at 2330, UZMA [facility] FENTanyl PF (SUBLIMAZE (PF)) injection 50 mcg 11-24 04:30: 00 11-24 03:45 :00 No 50ug 50 mcg, Slow IV Push, ONCE, 1 dose, On 11/23/21 at 2330, Routine [facility] iopamidol (ISOVUE 370-500 mL) injection 100 mL 11-24 04:19: 00 11-24 04:19 :00 No [id number] 100mL 100 mL, Intravenou s, ONCE, 1 dose, On 11/23/21 at 2330, Routine [facility] ketorolac 10 mg tablet 11-24 00:00: 00 Yes [id number] 10mg Take 1 tablet by mouth every 6 (six) hours as needed for Alternate with [place] for pain scale 4-6. [facility] HYDROcodone -acetaminop hen (NORCO) 10-325 mg tablet 11-24 00:00: 00 Yes [id number] 1{tbl} Take 1 tablet by mouth every 6 (six) hours as needed for Pain (scale 7-10). Indication s: acute pain [facility] ketorolac 10 mg tablet 11-24 00:00: 00 Yes [id number] 10mg Take 1 tablet by mouth every 6 (six) hours as needed for Alternate with [place] for pain scale 4-6. [facility] HYDROcodone -acetaminop hen (NORCO) 10-325 mg tablet 11-24 00:00: 00 Yes [id number] 1{tbl} Take 1 tablet by mouth every 6 (six) hours as needed for Pain (scale 7-10). Indication s: acute pain [facility] ketorolac 10 mg tablet 11-24 00:00: 00 Yes [id number] 10mg Take 1 tablet by mouth every 6 (six) hours as needed for Alternate with [place] for pain scale 4-6. [facility] HYDROcodone -acetaminop hen (NORCO) 10-325 mg tablet 2021-0 11-24 00:00: 00 Yes [id number] 1{tbl} Take 1 tablet by mouth every 6 (six) hours as needed for Pain (scale 7-10). Indication s: [facility] 2021-0 11-24 00:00: 00 Yes [id number] 10mg Take 1 tablet by mouth every 6 (six) hours as needed for Alternate with [place] for pain scale 4-6. [facility] HYDROcodone -acetaminop hen (NORCO) 10-325 mg tablet 11-24 00:00: 00 Yes 4647 1{tbl} Take 1 tablet by mouth every 6 (six) hours as needed for Pain (scale 7-10). Indication s: acute pain [facility] ketorolac 10 mg tablet 2021-11-24 00:00: 00 Yes [id number] 10mg Take 1 tablet by mouth every 6 (six) hours as needed for Alternate with [place] for pain scale 4-6. [facility] HYDROcodone -acetaminop hen (NORCO) 10-325 mg tablet 11-24 00:00: 00 Yes [id number] 1{tbl} Take 1 tablet by mouth every 6 (six) hours as needed for Pain (scale 7-10). Indication s: acute pain [facility] ketorolac 10 mg tablet 11-24 00:00: 00 Yes [id number] 10mg Take 1 tablet by mouth every 6 (six) hours as needed for Alternate with [place] for pain scale 4-6. [facility] HYDROcodone -acetaminop hen (NORCO) 10-325 mg tablet 11-24 00:00: 00 Yes [id number] 1{tbl} Take 1 tablet by mouth every 6 (six) hours as needed for Pain (scale 7-10). Indication s: acute pain [facility] ketorolac 10 mg tablet 2021-0 11-24 00:00: 00 Yes [id number] 10mg Take 1 tablet by mouth every 6 (six) hours as needed for Alternate with [place] for pain scale 4-6. [facility] HYDROcodone -acetaminop hen (NORCO) 10-325 mg tablet 11-24 00:00: 00 Yes [id number] 1{tbl} Take 1 tablet by mouth every 6 (six) hours as needed for Pain (scale 7-10). Indication s: acute pain [facility] ketorolac 10 mg tablet 11-24 00:00: 00 Yes [id number] 10mg Take 1 tablet by mouth every 6 (six) hours as needed for Alternate with [place] for pain scale 4-6. [facility] HYDROcodone -acetaminop hen (NORCO) 10-325 mg tablet 11-24 00:00: 00 Yes 4647 1{tbl} Take 1 tablet by mouth every 6 (six) hours as needed for Pain (scale 7-10). Indication s: acute pain [facility] ketorolac 10 mg tablet 11-24 00:00: 00 Yes [id number] 10mg Take 1 tablet by mouth every 6 (six) hours as needed for Alternate with [place] for pain scale 4-6. [facility] HYDROcodone -acetaminop hen (NORCO) 10-325 mg tablet 11-24 00:00: 00 Yes 4647 1{tbl} Take 1 tablet by mouth every 6 (six) hours as needed for Pain (scale 7-10). Indication s: acute pain [facility] ketorolac 10 mg tablet 11-24 00:00: 00 Yes [id number] 10mg Take 1 tablet by mouth every 6 (six) hours as needed for Alternate with [place] for pain scale 4-6. [facility] HYDROcodone -acetaminop hen (NORCO) 10-325 mg tablet 11-24 00:00: 00 Yes 4647 1{tbl} Take 1 tablet by mouth every 6 (six) hours as needed for Pain (scale 7-10). Indication s: acute pain [facility] ketorolac 10 mg tablet 2021-0 11-24 00:00: 00 Yes [id number] 10mg Take 1 tablet by mouth every 6 (six) hours as needed for Alternate with [place] for pain scale 4-6. [facility] HYDROcodone -acetaminop hen (NORCO) 10-325 mg tablet 2021-17 00:00: 00 Yes 4647 1{tbl} Take 1 tablet by mouth every 6 (six) hours as needed for Pain (scale 7-10). Indication s: acute pain [facility] ketorolac 10 mg tablet 2021-11-24 00:00: 00 Yes [id number] 10mg Take 1 tablet by mouth every 6 (six) hours as needed for Alternate with [place] for pain scale 4-6. [facility] HYDROcodone -acetaminop hen (NORCO) 10-325 mg tablet 11-24 00:00: 00 Yes 4647 1{tbl} Take 1 tablet by mouth every 6 (six) hours as needed for Pain (scale 7-10). Indication s: acute pain [facility] ketorolac 10 mg tablet 2021-11-24 00:00: 00 Yes [id number] 10mg Take 1 tablet by mouth every 6 (six) hours as needed for Alternate with [place] for pain scale 4-6. [facility] HYDROcodone -acetaminop hen (NORCO) 10-325 mg tablet 17 00:00: 00 Yes 4647 1{tbl} Take 1 tablet by mouth every 6 (six) hours as needed for Pain (scale 7-10). Indication s: acute pain [facility] ketorolac 10 mg tablet 0 17 00:00: 00 Yes [id number] 10mg Take 1 tablet by mouth every 6 (six) hours as needed for Alternate with [place] for pain scale 4-6. [facility] HYDROcodone -acetaminop hen (NORCO) 10-325 mg tablet 17 00:00: 00 Yes 4647 1{tbl} Take 1 tablet by mouth every 6 (six) hours as needed for Pain (scale 7-10). Indication s: acute pain [facility] ketorolac 10 mg tablet 2021-0 17 00:00: 00 Yes [id number] 10mg Take 1 tablet by mouth every 6 (six) hours as needed for Alternate with [place] for pain scale 4-6. [facility] HYDROcodone -acetaminop hen (NORCO) 10-325 mg tablet 0 17 00:00: 00 Yes 4647 1{tbl} Take 1 tablet by mouth every 6 (six) hours as needed for Pain (scale 7-10). Indication s: acute pain [facility] ketorolac 10 mg tablet 2021-0 17 00:00: 00 Yes [id number] 10mg Take 1 tablet by mouth every 6 (six) hours as needed for Alternate with [place] for pain scale 4-6. [facility] HYDROcodone -acetaminop hen (NORCO) 10-325 mg tablet 11-24 00:00: 00 Yes 4647 1{tbl} Take 1 tablet by mouth every 6 (six) hours as needed for Pain (scale 7-10). Indication s: acute pain [facility] ketorolac 10 mg tablet 11-24 00:00: 00 Yes [id number] 10mg Take 1 tablet by mouth every 6 (six) hours as needed for Alternate with [place] for pain scale 4-6. [facility] HYDROcodone -acetaminop hen (NORCO) 10-325 mg tablet 17 00:00: 00 Yes 4647 1{tbl} Take 1 tablet by mouth every 6 (six) hours as needed for Pain (scale 7-10). Indication s: acute pain [facility] ketorolac 10 mg tablet 2021-0 17 00:00: 00 Yes [id number] 10mg Take 1 tablet by mouth every 6 (six) hours as needed for Alternate with [place] for pain scale 4-6. [facility] HYDROcodone -acetaminop hen (NORCO) 10-325 mg tablet 2021-0 -17 00:00: 00 Yes 4647 1{tbl} Take 1 tablet by mouth every 6 (six) hours as needed for Pain (scale 7-10). Indication s: acute pain [facility] ketorolac 10 mg tablet 0 11-24 00:00: 00 Yes [id number] 10mg Take 1 tablet by mouth every 6 (six) hours as needed for Alternate with [place] for pain scale 4-6. [facility] HYDROcodone -acetaminop hen (NORCO) 10-325 mg tablet 11-24 00:00: 00 Yes 4647 1{tbl} Take 1 tablet by mouth every 6 (six) hours as needed for Pain (scale 7-10). Indication s: acute pain [facility] ketorolac 10 mg tablet 11-24 00:00: 00 Yes [id number] 10mg Take 1 tablet by mouth every 6 (six) hours as needed for Alternate with [place] for pain scale 4-6. [facility] HYDROcodone -acetaminop hen (NORCO) 10-325 mg tablet 11-24 00:00: 00 Yes 4647 1{tbl} Take 1 tablet by mouth every 6 (six) hours as needed for Pain (scale 7-10). Indication s: acute pain [facility] ketorolac 10 mg tablet 11-24 00:00: 00 Yes [id number] 10mg Take 1 tablet by mouth every 6 (six) hours as needed for Alternate with [place] for pain scale 4-6. [facility] HYDROcodone -acetaminop hen (NORCO) 10-325 mg tablet 11-24 00:00: 00 Yes 4647 1{tbl} Take 1 tablet by mouth every 6 (six) hours as needed for Pain (scale 7-10). Indication s: acute pain [facility] ketorolac 10 mg tablet 2021-11-24 00:00: 00 Yes [id number] 10mg Take 1 tablet by mouth every 6 (six) hours as needed for Alternate with [place] for pain scale 4-6. [facility] HYDROcodone -acetaminop hen (NORCO) 10-325 mg tablet 11-24 00:00: 00 Yes 4647 1{tbl} Take 1 tablet by mouth every 6 (six) hours as needed for Pain (scale 7-10). Indication s: acute pain [facility] ketorolac 10 mg tablet 11-24 00:00: 00 Yes [id number] 10mg Take 1 tablet by mouth every 6 (six) hours as needed for Alternate with [place] for pain scale 4-6. [facility] HYDROcodone -acetaminop hen (NORCO) 10-325 mg tablet 11-24 00:00: 00 Yes 4647 1{tbl} Take 1 tablet by mouth every 6 (six) hours as needed for Pain (scale 7-10). Indication s: acute pain [facility] ketorolac 10 mg tablet 11-24 00:00: 00 Yes [id number] 10mg Take 1 tablet by mouth every 6 (six) hours as needed for Alternate with [place] for pain scale 4-6. [facility] HYDROcodone -acetaminop hen (NORCO) 10-325 mg tablet 11-24 00:00: 00 Yes 4647 1{tbl} Take 1 tablet by mouth every 6 (six) hours as needed for Pain (scale 7-10). Indication s: acute pain [facility] ketorolac 10 mg tablet 11-24 00:00: 00 Yes [id number] 10mg Take 1 tablet by mouth every 6 (six) hours as needed for Alternate with [place] for pain scale 4-6. [facility] HYDROcodone -acetaminop hen (NORCO) 10-325 mg tablet 11-24 00:00: 00 Yes 4647 1{tbl} Take 1 tablet by mouth every 6 (six) hours as needed for Pain (scale 7-10). Indication s: acute pain [facility] ketorolac 10 mg tablet 11-24 00:00: 00 Yes [id number] 10mg Take 1 tablet by mouth every 6 (six) hours as needed for Alternate with [place] for pain scale 4-6. [facility] HYDROcodone -acetaminop hen (NORCO) 10-325 mg tablet 2021-0 -17 00:00: 00 Yes 4647 1{tbl} Take 1 tablet by mouth every 6 (six) hours as needed for Pain (scale 7-10). Indication s: acute pain [facility] ketorolac 10 mg tablet 2021-0 -17 00:00: 00 Yes [id number] 10mg Take 1 tablet by mouth every 6 (six) hours as needed for Alternate with [place] for pain scale 4-6. [facility] HYDROcodone -acetaminop hen (NORCO) 10-325 mg tablet 2021-0 -17 00:00: 00 Yes 4647 1{tbl} Take 1 tablet by mouth every 6 (six) hours as needed for Pain (scale 7-10). Indication s: acute pain [facility] ketorolac 10 mg tablet 2021-0 -17 00:00: 00 Yes [id number] 10mg Take 1 tablet by mouth every 6 (six) hours as needed for Alternate with [place] for pain scale 4-6. [facility] HYDROcodone -acetaminop hen (NORCO) 10-325 mg tablet 2021-0 -17 00:00: 00 Yes 4647 1{tbl} Take 1 tablet by mouth every 6 (six) hours as needed for Pain (scale 7-10). Indication s: acute pain [facility] ketorolac 10 mg tablet 2021-0 17 00:00: 00 Yes [id number] 10mg Take 1 tablet by mouth every 6 (six) hours as needed for Alternate with [place] for pain scale 4-6. [facility] HYDROcodone -acetaminop hen (NORCO) 10-325 mg tablet 2021-0 -17 00:00: 00 Yes 4647 1{tbl} Take 1 tablet by mouth every 6 (six) hours as needed for Pain (scale 7-10). Indication s: acute pain [facility] ketorolac 10 mg tablet 2021-0 4-17 00:00: 00 Yes [id number] 10mg Take 1 tablet by mouth every 6 (six) hours as needed for Alternate with [place] for pain scale 4-6. [facility] HYDROcodone -acetaminop hen (NORCO) 10-325 mg tablet 2021-0 17 00:00: 00 Yes 4647 1{tbl} Take 1 tablet by mouth every 6 (six) hours as needed for Pain (scale 7-10). Indication s: acute pain [facility] ketorolac 10 mg tablet 2021-0 17 00:00: 00 Yes [id number] 10mg Take 1 tablet by mouth every 6 (six) hours as needed for Alternate with [place] for pain scale 4-6. [facility] HYDROcodone -acetaminop hen (NORCO) 10-325 mg tablet 2021-0 11-24 00:00: 00 Yes 4647 1{tbl} Take 1 tablet by mouth every 6 (six) hours as needed for Pain (scale 7-10). Indication s: acute pain [facility] ketorolac 10 mg tablet 2021-0 11-24 00:00: 00 Yes [id number] 10mg Take 1 tablet by mouth every 6 (six) hours as needed for Alternate with [place] for pain scale 4-6. [facility] HYDROcodone -acetaminop hen (NORCO) 10-325 mg tablet 11-24 00:00: 00 Yes 4647 1{tbl} Take 1 tablet by mouth every 6 (six) hours as needed for Pain (scale 7-10). Indication s: acute pain [facility] ketorolac 10 mg tablet 2021-17 00:00: 00 Yes [id number] 10mg Take 1 tablet by mouth every 6 (six) hours as needed for Alternate with [place] for pain scale 4-6. [facility] HYDROcodone -acetaminop hen (NORCO) 10-325 mg tablet 2021-17 00:00: 00 Yes 4647 1{tbl} Take 1 tablet by mouth every 6 (six) hours as needed for Pain (scale 7-10). Indication s: acute pain [facility] ketorolac 10 mg tablet 2021-0 -17 00:00: 00 Yes [id number] 10mg Take 1 tablet by mouth every 6 (six) hours as needed for Alternate with [place] for pain scale 4-6. [facility] HYDROcodone -acetaminop hen (NORCO) 10-325 mg tablet 2021-0 -17 00:00: 00 Yes 4647 1{tbl} Take 1 tablet by mouth every 6 (six) hours as needed for Pain (scale 7-10). Indication s: acute pain [facility] ketorolac 10 mg tablet 2021-0 -17 00:00: 00 Yes [id number] 10mg Take 1 tablet by mouth every 6 (six) hours as needed for Alternate with [place] for pain scale 4-6. [facility] HYDROcodone -acetaminop hen (NORCO) 10-325 mg tablet 2021-0 -17 00:00: 00 Yes 4647 1{tbl} Take 1 tablet by mouth every 6 (six) hours as needed for Pain (scale 7-10). Indication s: acute pain [facility] HYDROcodone -acetaminop hen (NORCO) 10-325 mg tablet 2021-0 -17 00:00: 00 Yes 4647 1{tbl} Take 1 tablet by mouth every 6 (six) hours as needed for Pain (scale 7-10). Indication s: acute pain [facility] HYDROcodone -acetaminop hen (NORCO) 10-325 mg tablet 2-0 -17 00:00: 00 Yes 4647 1{tbl} Take 1 tablet by mouth every 6 (six) hours as needed for Pain (scale 7-10). Indication s: acute pain [facility] HYDROcodone -acetaminop hen (NORCO) 10-325 mg tablet 2-0 -17 00:00: 00 Yes 4647 1{tbl} Take 1 tablet by mouth every 6 (six) hours as needed for Pain (scale 7-10). Indication s: acute pain [facility] HYDROcodone -acetaminop hen (NORCO) 10-325 mg tablet 2-0 -17 00:00: 00 Yes 4647 1{tbl} Take 1 tablet by mouth every 6 (six) hours as needed for Pain (scale 7-10). Indication s: acute pain [facility] HYDROcodone -acetaminop hen (NORCO) 10-325 mg tablet 2021-0 4-17 00:00: 00 04-01 00:00 :00 No 4647 1{tbl} Take 1 tablet by mouth every 6 (six) hours as needed for Pain (scale 7-10). Indication s: acute pain [facility] HYDROcodone -acetaminop hen (NORCO) 10-325 mg tablet -17 00:00: 00 04-01 00:00 :00 No 4647 1{tbl} Take 1 tablet by mouth every 6 (six) hours as needed for Pain (scale 7-10). Indication s: acute pain [facility] HYDROcodone -acetaminop hen (NORCO) 10-325 mg tablet - 00:00: 00 04-01 00:00 :00 No 4647 1{tbl} Take 1 tablet by mouth every 6 (six) hours as needed for Pain (scale 7-10). Indication s: acute pain [facility] ketorolac 10 mg tablet -17 00:00: 00 03-30 00:00 :00 No [id number] 10mg Take 1 tablet by mouth every 6 (six) hours as needed for Alternate with [place] for pain scale 4-6. [facility] ketorolac 10 mg tablet -17 00:00: 00 03-30 00:00 :00 No [id number] 10mg Take 1 tablet by mouth every 6 (six) hours as needed for Alternate with [place] [place] for pain scale 4-6. [facility] ibuprofen 800 mg tablet 11-07 00:00: 00 Yes [id number] 800mg Take 1 tablet by mouth every 8 (eight) hours. [facility] oxyCODONE-a cetaminophe n 5-325 mg per tablet 11-07 00:00: 00 Yes [id number] 1{tbl} Take 1 tablet by mouth every 6 (six) hours as needed for Pain (scale 4-6). Indication s: acute pain [facility] ibuprofen 800 mg tablet 11-07 00:00: 00 Yes [id number] 800mg Take 1 tablet by mouth every 8 (eight) hours. [facility] 5-325 mg per tablet 11-07 00:00: 00 Yes [id number] 1{tbl} Take 1 tablet by mouth every 6 (six) hours as needed for Pain (scale 4-6). Indication s: acute pain [facility] ibuprofen 800 mg tablet 11-07 00:00: 00 Yes [id number] 800mg Take 1 tablet by mouth every 8 (eight) hours. [facility] oxyCODONE-a cetaminophe n 5-325 mg per tablet 11-07 00:00: 00 Yes [id number] 1{tbl} Take 1 tablet by mouth every 6 (six) hours as needed for Pain (scale 4-6). Indication s: acute pain [facility] ibuprofen 800 mg tablet 11-07 00:00: 00 Yes [id number] 800mg Take 1 tablet by mouth every 8 (eight) hours. [facility] oxyCODONE-a cetaminophe n 5-325 mg per tablet 11-07 00:00: 00 Yes [id number] 1{tbl} Take 1 tablet by mouth every 6 (six) hours as needed for Pain (scale 4-6). Indication s: acute pain [facility] ibuprofen 800 mg tablet 11-07 00:00: 00 Yes [id number] 800mg Take 1 tablet by mouth every 8 (eight) hours. [facility] oxyCODONE-a cetaminophe n 5-325 mg per tablet 11-07 00:00: 00 Yes [id number] 1{tbl} Take 1 tablet by mouth every 6 (six) hours as needed for Pain (scale 4-6). Indication s: acute pain [facility] ibuprofen 800 mg tablet 11-07 00:00: 00 Yes [id number] 800mg Take 1 tablet by mouth every 8 (eight) hours. [facility] oxyCODONE-a cetaminophe n 5-325 mg per tablet 11-07 00:00: 00 Yes [id number] 1{tbl} Take 1 tablet by mouth every 6 (six) hours as needed for Pain (scale 4-6). Indication s: [facility] 11-07 00:00: 00 Yes [id number] 800mg Take 1 tablet by mouth every 8 (eight) hours. [facility] oxyCODONE-a cetaminophe n 5-325 mg per tablet 11-07 00:00: 00 Yes [id number] 1{tbl} Take 1 tablet by mouth every 6 (six) hours as needed for Pain (scale 4-6). Indication s: acute pain [facility] ibuprofen 800 mg tablet 11-07 00:00: 00 Yes [id number] 800mg Take 1 tablet by mouth every 8 (eight) hours. [facility] oxyCODONE-a cetaminophe n 5-325 mg per tablet 11-07 00:00: 00 Yes 4647 1{tbl} Take 1 tablet by mouth every 6 (six) hours as needed for Pain (scale 4-6). Indication s: acute pain [facility] ibuprofen 800 mg tablet 11-07 00:00: 00 Yes [id number] 800mg Take 1 tablet by mouth every 8 (eight) hours. [facility] oxyCODONE-a cetaminophe n 5-325 mg per tablet 11-07 00:00: 00 Yes 4647 1{tbl} Take 1 tablet by mouth every 6 (six) hours as needed for Pain (scale 4-6). Indication s: acute pain [facility] ibuprofen 800 mg tablet 11-07 00:00: 00 Yes [id number] 800mg Take 1 tablet by mouth every 8 (eight) hours. [facility] oxyCODONE-a cetaminophe n 5-325 mg per tablet 11-07 00:00: 00 Yes 4647 1{tbl} Take 1 tablet by mouth every 6 (six) hours as needed for Pain (scale 4-6). Indication s: acute pain [facility] ibuprofen 800 mg tablet 11-07 00:00: 00 Yes [id number] 800mg Take 1 tablet by mouth every 8 (eight) hours. [facility] cetamin[facility] n 5-325 mg per tablet 11-07 00:00: 00 Yes 4647 1{tbl} Take 1 tablet by mouth every 6 (six) hours as needed for Pain (scale 4-6). Indication s: acute pain [facility] ibuprofen 800 mg tablet 11-07 00:00: 00 Yes [id number] 800mg Take 1 tablet by mouth every 8 (eight) hours. [facility] cetamin[facility] n 5-325 mg per tablet 11-07 00:00: 00 Yes 4647 1{tbl} Take 1 tablet by mouth every 6 (six) hours as needed for Pain (scale 4-6). Indication s: acute pain [facility] ibuprofen 800 mg tablet 11-07 00:00: 00 Yes [id number] 800mg Take 1 tablet by mouth every 8 (eight) hours. [facility] oxyCODONE-a cetaminophe n 5-325 mg per tablet 11-07 00:00: 00 Yes 4647 1{tbl} Take 1 tablet by mouth every 6 (six) hours as needed for Pain (scale 4-6). Indication s: acute pain [facility] ibuprofen 800 mg tablet 11-07 00:00: 00 Yes [id number] 800mg Take 1 tablet by mouth every 8 (eight) hours. [facility] oxyCODONE-a cetaminophe n 5-325 mg per tablet 11-07 00:00: 00 Yes 4647 1{tbl} Take 1 tablet by mouth every 6 (six) hours as needed for Pain (scale 4-6). Indication s: acute pain [facility] ibuprofen 800 mg tablet 11-07 00:00: 00 Yes [id number] 800mg Take 1 tablet by mouth every 8 (eight) hours. [facility] oxyCODONE-a cetaminophe n 5-325 mg per tablet 11-07 00:00: 00 Yes 4647 1{tbl} Take 1 tablet by mouth every 6 (six) hours as needed for Pain (scale 4-6). Indication s: acute pain [facility] ibuprofen 800 mg tablet 11-07 00:00: 00 Yes [id number] 800mg Take 1 tablet by mouth every 8 (eight) hours. [facility] oxyCODONE-a cetaminophe n 5-325 mg per tablet 11-07 00:00: 00 Yes 4647 1{tbl} Take 1 tablet by mouth every 6 (six) hours as needed for Pain (scale 4-6). Indication s: acute pain [facility] ibuprofen 800 mg tablet 11-07 00:00: 00 Yes [id number] 800mg Take 1 tablet by mouth every 8 (eight) hours. [facility] oxyCODONE-a cetaminophe n 5-325 mg per tablet 11-07 00:00: 00 Yes 4647 1{tbl} Take 1 tablet by mouth every 6 (six) hours as needed for Pain (scale 4-6). Indication s: acute pain [facility] ibuprofen 800 mg tablet 11-07 00:00: 00 Yes [id number] 800mg Take 1 tablet by mouth every 8 (eight) hours. [facility] oxyCODONE-a cetaminophe n 5-325 mg per tablet 11-07 00:00: 00 Yes 4647 1{tbl} Take 1 tablet by mouth every 6 (six) hours as needed for Pain (scale 4-6). Indication s: acute pain [facility] ibuprofen 800 mg tablet 11-07 00:00: 00 Yes [id number] 800mg Take 1 tablet by mouth every 8 (eight) hours. [facility] oxyCODONE-a cetaminophe n 5-325 mg per tablet 11-07 00:00: 00 Yes 4647 1{tbl} Take 1 tablet by mouth every 6 (six) hours as needed for Pain (scale 4-6). Indication s: acute pain [facility] ibuprofen 800 mg tablet 11-07 00:00: 00 Yes [id number] 800mg Take 1 tablet by mouth every 8 (eight) hours. [facility] oxyCODONE-a cetaminophe n 5-325 mg per tablet 11-07 00:00: 00 Yes 4647 1{tbl} Take 1 tablet by mouth every 6 (six) hours as needed for Pain (scale 4-6). Indication s: acute pain [facility] ibuprofen 800 mg tablet 11-07 00:00: 00 Yes [id number] 800mg Take 1 tablet by mouth every 8 (eight) hours. [facility] oxyCODONE-a cetaminophe n 5-325 mg per tablet 11-07 00:00: 00 Yes 4647 1{tbl} Take 1 tablet by mouth every 6 (six) hours as needed for Pain (scale 4-6). Indication s: acute pain [facility] ibuprofen 800 mg tablet 11-07 00:00: 00 Yes [id number] 800mg Take 1 tablet by mouth every 8 (eight) hours. [facility] oxyCODONE-a cetaminophe n 5-325 mg per tablet 11-07 00:00: 00 Yes 4647 1{tbl} Take 1 tablet by mouth every 6 (six) hours as needed for Pain (scale 4-6). Indication s: acute pain [facility] ibuprofen 800 mg tablet 11-07 00:00: 00 Yes [id number] 800mg Take 1 tablet by mouth every 8 (eight) hours. [facility] oxyCODONE-a cetaminophe n 5-325 mg per tablet 11-07 00:00: 00 Yes 4647 1{tbl} Take 1 tablet by mouth every 6 (six) hours as needed for Pain (scale 4-6). Indication s: acute pain [facility] ibuprofen 800 mg tablet 11-07 00:00: 00 Yes [id number] 800mg Take 1 tablet by mouth every 8 (eight) hours. [facility] cetaminophe n 5-325 mg per tablet 11-07 00:00: 00 Yes 4647 1{tbl} Take 1 tablet by mouth every 6 (six) hours as needed for Pain (scale 4-6). Indication s: acute pain [facility] ibuprofen 800 mg tablet 11-07 00:00: 00 Yes [id number] 800mg Take 1 tablet by mouth every 8 (eight) hours. [facility] oxyCODONE-a cetaminophe n 5-325 mg per tablet 11-07 00:00: 00 Yes 4647 1{tbl} Take 1 tablet by mouth every 6 (six) hours as needed for Pain (scale 4-6). Indication s: acute pain [facility] ibuprofen 800 mg tablet 11-07 00:00: 00 Yes [id number] 800mg Take 1 tablet by mouth every 8 (eight) hours. [facility] oxyCODONE-a cetaminophe n 5-325 mg per tablet 11-07 00:00: 00 Yes 4647 1{tbl} Take 1 tablet by mouth every 6 (six) hours as needed for Pain (scale 4-6). Indication s: acute pain [facility] ibuprofen 800 mg tablet 11-07 00:00: 00 Yes [id number] 800mg Take 1 tablet by mouth every 8 (eight) hours. [facility] oxyCODONE-a cetaminophe n 5-325 mg per tablet 11-07 00:00: 00 Yes 4647 1{tbl} Take 1 tablet by mouth every 6 (six) hours as needed for Pain (scale 4-6). Indication s: acute pain [facility] ibuprofen 800 mg tablet 11-07 00:00: 00 Yes [id number] 800mg Take 1 tablet by mouth every 8 (eight) hours. [facility] oxyCODONE-a cetaminophe n 5-325 mg per tablet 11-07 00:00: 00 Yes 4647 1{tbl} Take 1 tablet by mouth every 6 (six) hours as needed for Pain (scale 4-6). Indication s: acute pain [facility] ibuprofen 800 mg tablet 11-07 00:00: 00 Yes [id number] 800mg Take 1 tablet by mouth every 8 (eight) hours. [facility] oxyCODONE-a cetaminophe n 5-325 mg per tablet 11-07 00:00: 00 Yes 4647 1{tbl} Take 1 tablet by mouth every 6 (six) hours as needed for Pain (scale 4-6). Indication s: acute pain [facility] ibuprofen 800 mg tablet 11-07 00:00: 00 Yes [id number] 800mg Take 1 tablet by mouth every 8 (eight) hours. [facility] oxyCODONE-a cetaminophe n 5-325 mg per tablet 11-07 00:00: 00 Yes 4647 1{tbl} Take 1 tablet by mouth every 6 (six) hours as needed for Pain (scale 4-6). Indication s: acute pain [facility] ibuprofen 800 mg tablet 11-07 00:00: 00 Yes [id number] 800mg Take 1 tablet by mouth every 8 (eight) hours. [facility] oxyCODONE-a cetaminophe n 5-325 mg per tablet 11-07 00:00: 00 Yes 4647 1{tbl} Take 1 tablet by mouth every 6 (six) hours as needed for Pain (scale 4-6). Indication s: acute pain [facility] ibuprofen 800 mg tablet 11-07 00:00: 00 Yes [id number] 800mg Take 1 tablet by mouth every 8 (eight) hours. [facility] oxyCODONE-a cetaminophe n 5-325 mg per tablet 11-07 00:00: 00 Yes 4647 1{tbl} Take 1 tablet by mouth every 6 (six) hours as needed for Pain (scale 4-6). Indication s: acute pain [facility] ibuprofen 800 mg tablet 11-07 00:00: 00 Yes [id number] 800mg Take 1 tablet by mouth every 8 (eight) hours. [facility] oxyCODONE-a cetaminophe n 5-325 mg per tablet 11-07 00:00: 00 Yes 4647 1{tbl} Take 1 tablet by mouth every 6 (six) hours as needed for Pain (scale 4-6). Indication s: acute pain [facility] ibuprofen 800 mg tablet 11-07 00:00: 00 Yes [id number] 800mg Take 1 tablet by mouth every 8 (eight) hours. [facility] oxyCODONE-a cetaminophe n 5-325 mg per tablet 11-07 00:00: 00 Yes 4647 1{tbl} Take 1 tablet by mouth every 6 (six) hours as needed for Pain (scale 4-6). Indication s: acute pain [facility] ibuprofen 800 mg tablet 11-07 00:00: 00 Yes [id number] 800mg Take 1 tablet by mouth every 8 (eight) hours. [facility] oxyCODONE-a cetaminophe n 5-325 mg per tablet 11-07 00:00: 00 Yes 4647 1{tbl} Take 1 tablet by mouth every 6 (six) hours as needed for Pain (scale 4-6). Indication s: acute pain [facility] ibuprofen 800 mg tablet 11-07 00:00: 00 Yes [id number] 800mg Take 1 tablet by mouth every 8 (eight) hours. [facility] oxyCODONE-a cetaminophe n 5-325 mg per tablet 11-07 00:00: 00 Yes 4647 1{tbl} Take 1 tablet by mouth every 6 (six) hours as needed for Pain (scale 4-6). Indication s: acute pain [facility] ibuprofen 800 mg tablet 11-07 00:00: 00 Yes [id number] 800mg Take 1 tablet by mouth every 8 (eight) hours. [facility] oxyCODONE-a cetaminophe n 5-325 mg per tablet 11-07 00:00: 00 Yes 4647 1{tbl} Take 1 tablet by mouth every 6 (six) hours as needed for Pain (scale 4-6). Indication s: acute pain [facility] ibuprofen 800 mg tablet 11-07 00:00: 00 Yes [id number] 800mg Take 1 tablet by mouth every 8 (eight) hours. [facility] oxyCODONE-a cetaminophe n 5-325 mg per tablet 11-07 00:00: 00 Yes 4647 1{tbl} Take 1 tablet by mouth every 6 (six) hours as needed for Pain (scale 4-6). Indication s: acute pain [facility] ibuprofen 800 mg tablet 11-07 00:00: 00 Yes [id number] 800mg Take 1 tablet by mouth every 8 (eight) hours. [facility] oxyCODONE-a cetaminophe n 5-325 mg per tablet 11-07 00:00: 00 Yes 4647 1{tbl} Take 1 tablet by mouth every 6 (six) hours as needed for Pain (scale 4-6). Indication s: acute pain [facility] ibuprofen 800 mg tablet 11-07 00:00: 00 Yes [id number] 800mg Take 1 tablet by mouth every 8 (eight) hours. [facility] oxyCODONE-a cetaminophe n 5-325 mg per tablet 11-07 00:00: 00 Yes 4647 1{tbl} Take 1 tablet by mouth every 6 (six) hours as needed for Pain (scale 4-6). Indication s: acute pain [facility] ibuprofen 800 mg tablet 11-07 00:00: 00 Yes [id number] 800mg Take 1 tablet by mouth every 8 (eight) hours. [facility] oxyCODONE-a cetaminophe n 5-325 mg per tablet 11-07 00:00: 00 Yes 4647 1{tbl} Take 1 tablet by mouth every 6 (six) hours as needed for Pain (scale 4-6). Indication s: acute pain [facility] ibuprofen 800 mg tablet 11-07 00:00: 00 04-01 00:00 :00 No [id number] 800mg Take 1 tablet by mouth every 8 (eight) hours. [facility] oxyCODONE-a cetaminophe n 5-325 mg per tablet 11-07 00:00: 00 04-01 00:00 :00 No 4647 1{tbl} Take 1 tablet by mouth every 6 (six) hours as needed for Pain (scale 4-6). Indication s: [facility] 11-07 00:00: 00 04-01 00:00 :00 No [id number] 800mg Take 1 tablet by mouth every 8 (eight) hours. [facility] oxyCODONE-a cetaminophe n 5-325 mg per tablet 11-07 00:00: 00 04-01 00:00 :00 No 4647 1{tbl} Take 1 tablet by mouth every 6 (six) hours as needed for Pain (scale 4-6). Indication s: acute pain [facility] 11-07 00:00: 00 04-01 00:00 :00 No [id number] 800mg Take 1 tablet by mouth every 8 (eight) hours. [facility] oxyCODONE-a cetaminophe n 5-325 mg per tablet 11-07 00:00: 00 04-01 00:00 :00 No 4647 1{tbl} Take 1 tablet by mouth every 6 (six) hours as needed for Pain (scale 4-6). Indication s: [facility] mouthwash 1- 00:00: 00 Yes [facility] chlorhexidi ne 0.12 % mouthwash 1-03 00:00: 00 Yes [facility] chlorhexidi ne 0.12 % mouthwash 1-03 00:00: 00 Yes [facility] chlorhexidi ne 0.12 % mouthwash 2022-0 - 00:00: 00 Yes [facility] chlorhexidi ne 0.12 % mouthwash 2-0 08-12 00:00: 00 Yes [facility] chlorhexidi ne 0.12 % mouthwash 2022-0 - 00:00: 00 Yes [facility] chlorhexidi ne 0.12 % mouthwash 2022-0 - 00:00: 00 Yes [facility] chlorhexidi ne 0.12 % mouthwash 2-0 08-12 00:00: 00 Yes [facility] chlorhexidi ne 0.12 % mouthwash 2-0 08-12 00:00: 00 Yes [facility] chlorhexidi ne 0.12 % mouthwash 2022-0 08-12 00:00: 00 Yes [facility] chlorhexidi ne 0.12 % mouthwash 2022-0 08-12 00:00: 00 Yes [facility] chlorhexidi ne 0.12 % mouthwash 2-0 08-12 00:00: 00 Yes [facility] chlorhexidi ne 0.12 % mouthwash 2-0 08-12 00:00: 00 Yes [facility] chlorhexidi ne 0.12 % mouthwash 2022-0 - 00:00: 00 Yes [facility] chlorhexidi ne 0.12 % mouthwash 2022-0 - 00:00: 00 Yes [facility] chlorhexidi ne 0.12 % mouthwash 2022-0 1- 00:00: 00 Yes [facility] chlorhexidi ne 0.12 % mouthwash 2022-0 1- 00:00: 00 Yes [facility] chlorhexidi ne 0.12 % mouthwash 2022-0 1- 00:00: 00 Yes [facility] chlorhexidi ne 0.12 % mouthwash 2022-0 1- 00:00: 00 Yes [facility] chlorhexidi ne 0.12 % mouthwash 2022-0 1-03 00:00: 00 Yes [facility] chlorhexidi ne 0.12 % mouthwash 2022-0 1-03 00:00: 00 Yes [facility] chlorhexidi ne 0.12 % mouthwash 2022-0 1-03 00:00: 00 Yes [facility] chlorhexidi ne 0.12 % mouthwash 2022-0 1-03 00:00: 00 Yes [facility] chlorhexidi ne 0.12 % mouthwash 2022-0 1-03 00:00: 00 Yes [facility] chlorhexidi ne 0.12 % mouthwash 2022-0 1- 00:00: 00 Yes [facility] chlorhexidi ne 0.12 % mouthwash 2022-0 1- 00:00: 00 Yes [facility] chlorhexidi ne 0.12 % mouthwash 2022-0 1-03 00:00: 00 Yes [facility] chlorhexidi ne 0.12 % mouthwash 2022-0 1-03 00:00: 00 Yes [facility] chlorhexidi ne 0.12 % mouthwash 2-0 1- 00:00: 00 Yes [facility] chlorhexidi ne 0.12 % mouthwash 2022-0 1-03 00:00: 00 Yes [facility] chlorhexidi ne 0.12 % mouthwash 2022-0 1-03 00:00: 00 Yes [facility] chlorhexidi ne 0.12 % mouthwash 2022-0 1- 00:00: 00 Yes [facility] chlorhexidi ne 0.12 % mouthwash 2022-0 1-03 00:00: 00 Yes [facility] chlorhexidi ne 0.12 % mouthwash 2022-0 1- 00:00: 00 Yes [facility] chlorhexidi ne 0.12 % mouthwash 2022-0 1-03 00:00: 00 Yes [facility] chlorhexidi ne 0.12 % mouthwash 2021-0 08-12 00:00: 00 Yes [facility] chlorhexidi ne 0.12 % mouthwash 0 08-12 00:00: 00 Yes [facility] chlorhexidi ne 0.12 % mouthwash 0 08-12 00:00: 00 Yes [facility] chlorhexidi ne 0.12 % mouthwash 2021-0 08-12 00:00: 00 Yes [facility] chlorhexidi ne 0.12 % mouthwash 2021-0 08-12 00:00: 00 Yes [facility] chlorhexidi ne 0.12 % mouthwash 2021-0 08-12 00:00: 00 Yes [facility] chlorhexidi ne 0.12 % mouthwash 0 08-12 00:00: 00 04-01 00:00 :00 No [facility] chlorhexidi ne 0.12 % mouthwash 0 08-12 00:00: 00 04-01 00:00 :00 No [facility] chlorhexidi ne 0.12 % mouthwash 0 08-12 00:00: 00 04-01 00:00 :00 No [facility] DULOXETINE 20 mg capsule 0 01-29 00:00: 00 Yes [id number] TAKE 1 CAPSULE BY MOUTH TWICE DAILY [facility] DULOXETINE 20 mg capsule 0 01-29 00:00: 00 Yes [id number] TAKE 1 CAPSULE BY MOUTH TWICE DAILY [facility] DULOXETINE 20 mg capsule 2020-0 01-29 00:00: 00 Yes [id number] TAKE 1 CAPSULE BY MOUTH TWICE DAILY [facility] DULOXETINE 20 mg capsule 0 01-29 00:00: 00 Yes [id number] TAKE 1 CAPSULE BY MOUTH TWICE DAILY [facility] DULOXETINE 20 mg capsule 0 01-29 00:00: 00 Yes [id number] TAKE 1 CAPSULE BY MOUTH TWICE DAILY [facility] DULOXETINE 20 mg capsule 0 01-29 00:00: 00 Yes [id number] TAKE 1 CAPSULE BY MOUTH TWICE DAILY [facility] DULOXETINE 20 mg capsule 2020-0 01-29 00:00: 00 Yes [id number] TAKE 1 CAPSULE BY MOUTH TWICE DAILY [facility] DULOXETINE 20 mg capsule 2020-0 01-29 00:00: 00 Yes [id number] TAKE 1 CAPSULE BY MOUTH TWICE DAILY [facility] DULOXETINE 20 mg capsule 2020-0 01-29 00:00: 00 Yes [id number] TAKE 1 CAPSULE BY MOUTH TWICE DAILY [facility] DULOXETINE 20 mg capsule 2020-0 01-29 00:00: 00 Yes [id number] TAKE 1 CAPSULE BY MOUTH TWICE DAILY [facility] DULOXETINE 20 mg capsule 2020-0 01-29 00:00: 00 Yes [id number] TAKE 1 CAPSULE BY MOUTH TWICE DAILY [facility] DULOXETINE 20 mg capsule 2020-0 01-29 00:00: 00 Yes [id number] TAKE 1 CAPSULE BY MOUTH TWICE DAILY [facility] DULOXETINE 20 mg capsule 2020-0 01-29 00:00: 00 Yes [id number] TAKE 1 CAPSULE BY MOUTH TWICE DAILY [facility] DULOXETINE 20 mg capsule 2020-0 01-29 00:00: 00 Yes [id number] TAKE 1 CAPSULE BY MOUTH TWICE DAILY [facility] DULOXETINE 20 mg capsule 2020-0 01-29 00:00: 00 Yes [id number] TAKE 1 CAPSULE BY MOUTH TWICE DAILY [facility] DULOXETINE 20 mg capsule 2020-0 01-29 00:00: 00 Yes [id number] TAKE 1 CAPSULE BY MOUTH TWICE DAILY [facility] DULOXETINE 20 mg capsule 2020-0 01-29 00:00: 00 Yes [id number] TAKE 1 CAPSULE BY MOUTH TWICE DAILY [facility] DULOXETINE 20 mg capsule 2020-0 01-29 00:00: 00 Yes [id number] TAKE 1 CAPSULE BY MOUTH TWICE DAILY [facility] DULOXETINE 20 mg capsule 2020-0 01-29 00:00: 00 Yes [id number] TAKE 1 CAPSULE BY MOUTH TWICE DAILY [facility] DULOXETINE 20 mg capsule 2020-0 01-29 00:00: 00 Yes [id number] TAKE 1 CAPSULE BY MOUTH TWICE DAILY [facility] DULOXETINE 20 mg capsule 2020-0 01-29 00:00: 00 Yes [id number] TAKE 1 CAPSULE BY MOUTH TWICE DAILY [facility] DULOXETINE 20 mg capsule 2020-0 01-29 00:00: 00 Yes [id number] TAKE 1 CAPSULE BY MOUTH TWICE DAILY [facility] DULOXETINE 20 mg capsule 2020-0 01-29 00:00: 00 Yes [id number] TAKE 1 CAPSULE BY MOUTH TWICE DAILY [facility] DULOXETINE 20 mg capsule 2020-0 01-29 00:00: 00 Yes [id number] TAKE 1 CAPSULE BY MOUTH TWICE DAILY [facility] DULOXETINE 20 mg capsule 2020-0 01-29 00:00: 00 Yes [id number] TAKE 1 CAPSULE BY MOUTH TWICE DAILY [facility] ity [facility] DULOXETINE 20 mg capsule 2020-0 01-29 00:00: 00 Yes [id number] TAKE 1 CAPSULE BY MOUTH TWICE DAILY [facility] DULOXETINE 20 mg capsule 2020-0 01-29 00:00: 00 Yes [id number] TAKE 1 CAPSULE BY MOUTH TWICE DAILY [facility] DULOXETINE 20 mg capsule 2020-0 01-29 00:00: 00 Yes [id number] TAKE 1 CAPSULE BY MOUTH TWICE DAILY [facility] 2020-0 01-29 00:00: 00 Yes [id number] TAKE 1 CAPSULE BY MOUTH TWICE DAILY [facility] ity [facility] DULOXETINE 20 mg capsule 2020-0 01-29 00:00: 00 Yes [id number] TAKE 1 CAPSULE BY MOUTH TWICE DAILY [facility] DULOXETINE 20 mg capsule 2020-0 01-29 00:00: 00 Yes [id number] TAKE 1 CAPSULE BY MOUTH TWICE DAILY [facility] DULOXETINE 20 mg capsule 2020-0 01-29 00:00: 00 Yes [id number] TAKE 1 CAPSULE BY MOUTH TWICE DAILY [facility] DULOXETINE 20 mg capsule 2020-0 01-29 00:00: 00 Yes [id number] TAKE 1 CAPSULE BY MOUTH TWICE DAILY [facility] DULOXETINE 20 mg capsule 2020-0 01-29 00:00: 00 Yes [id number] TAKE 1 CAPSULE BY MOUTH TWICE DAILY [facility] DULOXETINE 20 mg capsule 0 01-29 00:00: 00 Yes [id number] TAKE 1 CAPSULE BY MOUTH TWICE DAILY [facility] DULOXETINE 20 mg capsule 01-29 00:00: 00 Yes [id number] TAKE 1 CAPSULE BY MOUTH TWICE DAILY [facility] DULOXETINE 20 mg capsule 0 01-29 00:00: 00 Yes [id number] TAKE 1 CAPSULE BY MOUTH TWICE DAILY [facility] DULOXETINE 20 mg capsule 01-29 00:00: 00 Yes [id number] TAKE 1 CAPSULE BY MOUTH TWICE DAILY [facility] DULOXETINE 20 mg capsule 01-29 00:00: 00 Yes [id number] TAKE 1 CAPSULE BY MOUTH TWICE DAILY [facility] DULOXETINE 20 mg capsule 01-29 00:00: 00 Yes [id number] TAKE 1 CAPSULE BY MOUTH TWICE DAILY [facility] DULOXETINE 20 mg capsule 01-29 00:00: 00 Yes [id number] TAKE 1 CAPSULE BY MOUTH TWICE DAILY [facility] DULOXETINE 20 mg capsule 01-29 00:00: 00 04-01 00:00 :00 No [id number] TAKE 1 CAPSULE BY MOUTH TWICE DAILY [facility] DULOXETINE 20 mg capsule 01-29 00:00: 00 04-01 00:00 :00 No [id number] TAKE 1 CAPSULE BY MOUTH TWICE DAILY [facility] DULOXETINE 20 mg capsule 01-29 00:00: 00 04-01 00:00 :00 No [id number] TAKE 1 CAPSULE BY MOUTH TWICE DAILY [facility] glecaprevir -pibrentasv ir (MAVYRET) 100-40 mg 10-28 00:00: 00 Yes [id number] 3{tbl} Take 3 tablets by mouth daily. [facility] buPROPion SR (WELLBUTRIN SR) 150 mg SR tablet 10-28 00:00: 00 Yes [id number] 150mg Take 1 tablet by mouth daily. [facility] benzoyl peroxide (ACNE FOAMING WASH) 10 % external wash 10-28 00:00: 00 Yes [id number] Apply to area(s) 2 (two) times daily. [facility] al[facility] 90 mcg/actuati on inhaler 10-28 00:00: 00 Yes [id number] 2{puff} Inhale 2 Puffs every 4 (four) hours as needed for Wheezing or Shortness of Breath. [facility] albuterol 2.5 mg /3 mL (0.083 %) nebulizer solution 10-28 00:00: 00 Yes [id number] 2.5mg Inhale 3 mL every 4 (four) hours as needed for Wheezing or Shortness of Breath. [facility] valACYclovi r 1 gram tablet 10-28 00:00: 00 Yes [id number] 1g Take 1 tablet by mouth daily. [facility] meclizine 25 mg tablet 10-28 00:00: 00 Yes [id number] 25mg Take 1 tablet by mouth 3 (three) times daily as needed for Dizziness. [facility] glecaprevir -pibrentasv ir (MAVYRET) 100-40 mg 10-28 00:00: 00 Yes [id number] 3{tbl} Take 3 tablets by mouth daily. [facility] buPROPion SR (WELLBUTRIN SR) 150 mg SR tablet 10-28 00:00: 00 Yes [id number] 150mg Take 1 tablet by mouth daily. [facility] benzoyl peroxide (ACNE FOAMING WASH) 10 % external wash 10-28 00:00: 00 Yes [id number] Apply to area(s) 2 (two) times daily. [facility] albuterol 90 mcg/actuati on inhaler 10-28 00:00: 00 Yes [id number] 2{puff} Inhale 2 Puffs every 4 (four) hours as needed for Wheezing or Shortness of Breath. [facility] albuterol 2.5 mg /3 mL (0.083 %) nebulizer solution 10-28 00:00: 00 Yes [id number] 2.5mg Inhale 3 mL every 4 (four) hours as needed for Wheezing or Shortness of Breath. [facility] valACYclovi r 1 gram tablet 10-28 00:00: 00 Yes [id number] 1g Take 1 tablet by mouth daily. [facility] meclizine 25 mg tablet 10-28 00:00: 00 Yes [id number] 25mg Take 1 tablet by mouth 3 (three) times daily as needed for Dizziness. [facility] glecaprevir -pibrentasv ir (MAVYRET) 100-40 mg 10-28 00:00: 00 Yes [id number] 3{tbl} Take 3 tablets by mouth daily. [facility] buPROPion SR (WELLBUTRIN SR) 150 mg SR tablet 10-28 00:00: 00 Yes [id number] 150mg Take 1 tablet by mouth daily. [facility] benzoyl peroxide (ACNE FOAMING WASH) 10 % external wash 10-28 00:00: 00 Yes [id number] Apply to area(s) 2 (two) times daily. [facility] albuterol 90 mcg/actuati on inhaler 10-28 00:00: 00 Yes [id number] 2{puff} Inhale 2 Puffs every 4 (four) hours as needed for Wheezing or Shortness of Breath. [facility] albuterol 2.5 mg /3 mL (0.083 %) nebulizer solution 10-28 00:00: 00 Yes [id number] 2.5mg Inhale 3 mL every 4 (four) hours as needed for Wheezing or Shortness of Breath. [facility] valACYclovi r 1 gram tablet 10-28 00:00: 00 Yes [id number] 1g Take 1 tablet by mouth daily. [facility] meclizine 25 mg tablet 10-28 00:00: 00 Yes [id number] 25mg Take 1 tablet by mouth 3 (three) times daily as needed for Dizziness. [facility] glecaprevir -pibrentasv ir (MAVYRET) 100-40 mg 10-28 00:00: 00 Yes [id number] 3{tbl} Take 3 tablets by mouth daily. [facility] buPROPion SR (WELLBUTRIN SR) 150 mg SR tablet 10-28 00:00: 00 Yes [id number] 150mg Take 1 tablet by mouth daily. [facility] benzoyl peroxide (ACNE FOAMING WASH) 10 % external wash 10-28 00:00: 00 Yes [id number] Apply to area(s) 2 (two) times daily. [facility] albuterol 90 mcg/actuati on inhaler 10-28 00:00: 00 Yes [id number] 2{puff} Inhale 2 Puffs every 4 (four) hours as needed for Wheezing or Shortness of Breath. [facility] albuterol 2.5 mg /3 mL (0.083 %) nebulizer solution 10-28 00:00: 00 Yes [id number] 2.5mg Inhale 3 mL every 4 (four) hours as needed for Wheezing or Shortness of Breath. [facility] valACYclovi r 1 gram tablet 10-28 00:00: 00 Yes [id number] 1g Take 1 tablet by mouth daily. [facility] meclizine 25 mg tablet 10-28 00:00: 00 Yes [id number] 25mg Take 1 tablet by mouth 3 (three) times daily as needed for Dizziness. [facility] glecaprevir -pibrentasv ir (MAVYRET) 100-40 mg 10-28 00:00: 00 Yes [id number] 3{tbl} Take 3 tablets by mouth daily. [facility] buPROPion SR (WELLBUTRIN SR) 150 mg SR tablet 10-28 00:00: 00 Yes [id number] 150mg Take 1 tablet by mouth daily. [facility] benzoyl peroxide (ACNE FOAMING WASH) 10 % external wash 10-28 00:00: 00 Yes [id number] Apply to area(s) 2 (two) times daily. [facility] al[facility]erol 90 mcg/actuati on inhaler 10-28 00:00: 00 Yes [id number] 2{puff} Inhale 2 Puffs every 4 (four) hours as needed for Wheezing or Shortness of Breath. [facility] al[facility] 2.5 mg /3 mL (0.083 %) nebulizer solution 10-28 00:00: 00 Yes [id number] 2.5mg Inhale 3 mL every 4 (four) hours as needed for Wheezing or Shortness of Breath. [facility] valACYclovi r 1 gram tablet 10-28 00:00: 00 Yes [id number] 1g Take 1 tablet by mouth daily. [facility] meclizine 25 mg tablet 10-28 00:00: 00 Yes [id number] 25mg Take 1 tablet by mouth 3 (three) times daily as needed for Dizziness. [facility] glecaprevir -pibrentasv ir (MAVYRET) 100-40 mg 10-28 00:00: 00 Yes [id number] 3{tbl} Take 3 tablets by mouth daily. [facility] buPROPion SR (WELLBUTRIN SR) 150 mg SR tablet 10-28 00:00: 00 Yes [id number] 150mg Take 1 tablet by mouth daily. [facility] benzoyl peroxide (ACNE FOAMING WASH) 10 % external wash 10-28 00:00: 00 Yes [id number] Apply to area(s) 2 (two) times daily. [facility] al[facility]erol 90 mcg/actuati on inhaler 10-28 00:00: 00 Yes [id number] 2{puff} Inhale 2 Puffs every 4 (four) hours as needed for Wheezing or Shortness of Breath. [facility] albuterol 2.5 mg /3 mL (0.083 %) nebulizer solution 10-28 00:00: 00 Yes [id number] 2.5mg Inhale 3 mL every 4 (four) hours as needed for Wheezing or Shortness of Breath. [facility] valACYclovi r 1 gram tablet 10-28 00:00: 00 Yes [id number] 1g Take 1 tablet by mouth daily. [facility] meclizine 25 mg tablet 10-28 00:00: 00 Yes [id number] 25mg Take 1 tablet by mouth 3 (three) times daily as needed for Dizziness. [facility] glecaprevir -pibrentasv ir (MAVYRET) 100-40 mg 10-28 00:00: 00 Yes [id number] 3{tbl} Take 3 tablets by mouth daily. [facility] buPROPion SR (WELLBUTRIN SR) 150 mg SR tablet 10-28 00:00: 00 Yes [id number] 150mg Take 1 tablet by mouth daily. [facility] benzoyl peroxide (ACNE FOAMING WASH) 10 % external wash 10-28 00:00: 00 Yes [id number] Apply to area(s) 2 (two) times daily. [facility] albuterol 90 mcg/actuati on inhaler 10-28 00:00: 00 Yes [id number] 2{puff} Inhale 2 Puffs every 4 (four) hours as needed for Wheezing or Shortness of Breath. [facility] albuterol 2.5 mg /3 mL (0.083 %) nebulizer solution 10-28 00:00: 00 Yes [id number] 2.5mg Inhale 3 mL every 4 (four) hours as needed for Wheezing or Shortness of Breath. [facility] valACYclovi r 1 gram tablet 10-28 00:00: 00 Yes [id number] 1g Take 1 tablet by mouth daily. [facility] meclizine 25 mg tablet 10-28 00:00: 00 Yes [id number] 25mg Take 1 tablet by mouth 3 (three) times daily as needed for Dizziness. [facility] glecaprevir -pibrentasv ir (MAVYRET) 100-40 mg 10-28 00:00: 00 Yes [id number] 3{tbl} Take 3 tablets by mouth daily. [facility] buPROPion SR (WELLBUTRIN SR) 150 mg SR tablet 10-28 00:00: 00 Yes [id number] 150mg Take 1 tablet by mouth daily. [facility] benzoyl peroxide (ACNE FOAMING WASH) 10 % external wash 10-28 00:00: 00 Yes [id number] Apply to area(s) 2 (two) times daily. [facility] albuterol 90 mcg/actuati on inhaler 10-28 00:00: 00 Yes [id number] 2{puff} Inhale 2 Puffs every 4 (four) hours as needed for Wheezing or Shortness of Breath. [facility] albuterol 2.5 mg /3 mL (0.083 %) nebulizer solution 10-28 00:00: 00 Yes [id number] 2.5mg Inhale 3 mL every 4 (four) hours as needed for Wheezing or Shortness of Breath. [facility] valACYclovi r 1 gram tablet 10-28 00:00: 00 Yes [id number] 1g Take 1 tablet by mouth daily. [facility] meclizine 25 mg tablet 10-28 00:00: 00 Yes [id number] 25mg Take 1 tablet by mouth 3 (three) times daily as needed for Dizziness. [facility] glecaprevir -pibrentasv ir (MAVYRET) 100-40 mg 10-28 00:00: 00 Yes [id number] 3{tbl} Take 3 tablets by mouth daily. [facility] buPROPion SR (WELLBUTRIN SR) 150 mg SR tablet 10-28 00:00: 00 Yes [id number] 150mg Take 1 tablet by mouth daily. [facility] benzoyl peroxide (ACNE FOAMING WASH) 10 % external wash 10-28 00:00: 00 Yes [id number] Apply to area(s) 2 (two) times daily. [facility] albuterol 90 mcg/actuati on inhaler 10-28 00:00: 00 Yes [id number] 2{puff} Inhale 2 Puffs every 4 (four) hours as needed for Wheezing or Shortness of Breath. [facility] albuterol 2.5 mg /3 mL (0.083 %) nebulizer solution 10-28 00:00: 00 Yes [id number] 2.5mg Inhale 3 mL every 4 (four) hours as needed for Wheezing or Shortness of Breath. [facility] valACYclovi r 1 gram tablet 10-28 00:00: 00 Yes [id number] 1g Take 1 tablet by mouth daily. [facility] meclizine 25 mg tablet 10-28 00:00: 00 Yes [id number] 25mg Take 1 tablet by mouth 3 (three) times daily as needed for Dizziness. [facility] glecaprevir -pibrentasv ir (MAVYRET) 100-40 mg 10-28 00:00: 00 Yes [id number] 3{tbl} Take 3 tablets by mouth daily. [facility] buPROPion SR (WELLBUTRIN SR) 150 mg SR tablet 10-28 00:00: 00 Yes [id number] 150mg Take 1 tablet by mouth daily. [facility] benzoyl peroxide (ACNE FOAMING WASH) 10 % external wash 10-28 00:00: 00 Yes [id number] Apply to area(s) 2 (two) times daily. [facility] albuterol 90 mcg/actuati on inhaler 10-28 00:00: 00 Yes [id number] 2{puff} Inhale 2 Puffs every 4 (four) hours as needed for Wheezing or Shortness of Breath. [facility] albuterol 2.5 mg /3 mL (0.083 %) nebulizer solution 10-28 00:00: 00 Yes [id number] 2.5mg Inhale 3 mL every 4 (four) hours as needed for Wheezing or Shortness of Breath. [facility] valACYclovi r 1 gram tablet 10-28 00:00: 00 Yes [id number] 1g Take 1 tablet by mouth daily. [facility] meclizine 25 mg tablet 10-28 00:00: 00 Yes [id number] 25mg Take 1 tablet by mouth 3 (three) times daily as needed for Dizziness. [facility] glecaprevir -pibrentasv ir (MAVYRET) 100-40 mg 10-28 00:00: 00 Yes [id number] 3{tbl} Take 3 tablets by mouth daily. [facility] buPROPion SR (WELLBUTRIN SR) 150 mg SR tablet 10-28 00:00: 00 Yes [id number] 150mg Take 1 tablet by mouth daily. [facility] benzoyl peroxide (ACNE FOAMING WASH) 10 % external wash 10-28 00:00: 00 Yes [id number] Apply to area(s) 2 (two) times daily. [facility] albuterol 90 mcg/actuati on inhaler 10-28 00:00: 00 Yes [id number] 2{puff} Inhale 2 Puffs every 4 (four) hours as needed for Wheezing or Shortness of Breath. [facility] albuterol 2.5 mg /3 mL (0.083 %) nebulizer solution 10-28 00:00: 00 Yes [id number] 2.5mg Inhale 3 mL every 4 (four) hours as needed for Wheezing or Shortness of Breath. [facility] valACYclovi r 1 gram tablet 10-28 00:00: 00 Yes [id number] 1g Take 1 tablet by mouth daily. [facility] meclizine 25 mg tablet 10-28 00:00: 00 Yes [id number] 25mg Take 1 tablet by mouth 3 (three) times daily as needed for Dizziness. [facility] glecaprevir -pibrentasv ir (MAVYRET) 100-40 mg 10-28 00:00: 00 Yes [id number] 3{tbl} Take 3 tablets by mouth daily. [facility] buPROPion SR (WELLBUTRIN SR) 150 mg SR tablet 10-28 00:00: 00 Yes [id number] 150mg Take 1 tablet by mouth daily. [facility] benzoyl peroxide (ACNE FOAMING WASH) 10 % external wash 10-28 00:00: 00 Yes [id number] Apply to area(s) 2 (two) times daily. [facility] al[facility]erol 90 mcg/actuati on inhaler 10-28 00:00: 00 Yes [id number] 2{puff} Inhale 2 Puffs every 4 (four) hours as needed for Wheezing or Shortness of Breath. [facility] albuterol 2.5 mg /3 mL (0.083 %) nebulizer solution 10-28 00:00: 00 Yes [id number] 2.5mg Inhale 3 mL every 4 (four) hours as needed for Wheezing or Shortness of Breath. [facility] valACYclovi r 1 gram tablet 10-28 00:00: 00 Yes [id number] 1g Take 1 tablet by mouth daily. [facility] meclizine 25 mg tablet 10-28 00:00: 00 Yes [id number] 25mg Take 1 tablet by mouth 3 (three) times daily as needed for Dizziness. [facility] glecaprevir -pibrentasv ir (MAVYRET) 100-40 mg 10-28 00:00: 00 Yes [id number] 3{tbl} Take 3 tablets by mouth daily. [facility] buPROPion SR (WELLBUTRIN SR) 150 mg SR tablet 10-28 00:00: 00 Yes [id number] 150mg Take 1 tablet by mouth daily. [facility] benzoyl peroxide (ACNE FOAMING WASH) 10 % external wash 10-28 00:00: 00 Yes [id number] Apply to area(s) 2 (two) times daily. [facility] al[facility]erol 90 mcg/actuati on inhaler 10-28 00:00: 00 Yes [id number] 2{puff} Inhale 2 Puffs every 4 (four) hours as needed for Wheezing or Shortness of Breath. [facility] albuterol 2.5 mg /3 mL (0.083 %) nebulizer solution 10-28 00:00: 00 Yes [id number] 2.5mg Inhale 3 mL every 4 (four) hours as needed for Wheezing or Shortness of Breath. [facility] valACYclovi r 1 gram tablet 10-28 00:00: 00 Yes [id number] 1g Take 1 tablet by mouth daily. [facility] meclizine 25 mg tablet 10-28 00:00: 00 Yes [id number] 25mg Take 1 tablet by mouth 3 (three) times daily as needed for Dizziness. [facility] glecaprevir -pibrentasv ir (MAVYRET) 100-40 mg 10-28 00:00: 00 Yes [id number] 3{tbl} Take 3 tablets by mouth daily. [facility] buPROPion SR (WELLBUTRIN SR) 150 mg SR tablet 10-28 00:00: 00 Yes [id number] 150mg Take 1 tablet by mouth daily. [facility] benzoyl peroxide (ACNE FOAMING WASH) 10 % external wash 10-28 00:00: 00 Yes [id number] Apply to area(s) 2 (two) times daily. [facility] albuterol 90 mcg/actuati on inhaler 10-28 00:00: 00 Yes [id number] 2{puff} Inhale 2 Puffs every 4 (four) hours as needed for Wheezing or Shortness of Breath. [facility] albuterol 2.5 mg /3 mL (0.083 %) nebulizer solution 10-28 00:00: 00 Yes [id number] 2.5mg Inhale 3 mL every 4 (four) hours as needed for Wheezing or Shortness of Breath. [facility] valACYclovi r 1 gram tablet 10-28 00:00: 00 Yes [id number] 1g Take 1 tablet by mouth daily. [facility] meclizine 25 mg tablet 10-28 00:00: 00 Yes [id number] 25mg Take 1 tablet by mouth 3 (three) times daily as needed for Dizziness. [facility] glecaprevir -pibrentasv ir (MAVYRET) 100-40 mg 10-28 00:00: 00 Yes [id number] 3{tbl} Take 3 tablets by mouth daily. [facility] buPROPion SR (WELLBUTRIN SR) 150 mg SR tablet 10-28 00:00: 00 Yes [id number] 150mg Take 1 tablet by mouth daily. [facility] benzoyl peroxide (ACNE FOAMING WASH) 10 % external wash 10-28 00:00: 00 Yes [id number] Apply to area(s) 2 (two) times daily. [facility] albuterol 90 mcg/actuati on inhaler 10-28 00:00: 00 Yes [id number] 2{puff} Inhale 2 Puffs every 4 (four) hours as needed for Wheezing or Shortness of Breath. [facility] albuterol 2.5 mg /3 mL (0.083 %) nebulizer solution 10-28 00:00: 00 Yes [id number] 2.5mg Inhale 3 mL every 4 (four) hours as needed for Wheezing or Shortness of Breath. [facility] valACYclovi r 1 gram tablet 10-28 00:00: 00 Yes [id number] 1g Take 1 tablet by mouth daily. [facility] meclizine 25 mg tablet 10-28 00:00: 00 Yes [id number] 25mg Take 1 tablet by mouth 3 (three) times daily as needed for Dizziness. [facility] glecaprevir -pibrentasv ir (MAVYRET) 100-40 mg 10-28 00:00: 00 Yes [id number] 3{tbl} Take 3 tablets by mouth daily. [facility] buPROPion SR (WELLBUTRIN SR) 150 mg SR tablet 10-28 00:00: 00 Yes [id number] 150mg Take 1 tablet by mouth daily. [facility] benzoyl peroxide (ACNE FOAMING WASH) 10 % external wash 10-28 00:00: 00 Yes [id number] Apply to area(s) 2 (two) times daily. [facility] albuterol 90 mcg/actuati on inhaler 10-28 00:00: 00 Yes [id number] 2{puff} Inhale 2 Puffs every 4 (four) hours as needed for Wheezing or Shortness of Breath. [facility] albuterol 2.5 mg /3 mL (0.083 %) nebulizer solution 10-28 00:00: 00 Yes [id number] 2.5mg Inhale 3 mL every 4 (four) hours as needed for Wheezing or Shortness of Breath. [facility] valACYclovi r 1 gram tablet 10-28 00:00: 00 Yes [id number] 1g Take 1 tablet by mouth daily. [facility] meclizine 25 mg tablet 10-28 00:00: 00 Yes [id number] 25mg Take 1 tablet by mouth 3 (three) times daily as needed for Dizziness. [facility] glecaprevir -pibrentasv ir (MAVYRET) 100-40 mg 10-28 00:00: 00 Yes [id number] 3{tbl} Take 3 tablets by mouth daily. [facility] buPROPion SR (WELLBUTRIN SR) 150 mg SR tablet 10-28 00:00: 00 Yes [id number] 150mg Take 1 tablet by mouth daily. [facility] benzoyl peroxide (ACNE FOAMING WASH) 10 % external wash 10-28 00:00: 00 Yes [id number] Apply to area(s) 2 (two) times daily. [facility] albuterol 90 mcg/actuati on inhaler 10-28 00:00: 00 Yes [id number] 2{puff} Inhale 2 Puffs every 4 (four) hours as needed for Wheezing or Shortness of Breath. [facility] albuterol 2.5 mg /3 mL (0.083 %) nebulizer solution 10-28 00:00: 00 Yes [id number] 2.5mg Inhale 3 mL every 4 (four) hours as needed for Wheezing or Shortness of Breath. [facility] meclizine 25 mg tablet 10-28 00:00: 00 Yes [id number] 25mg Take 1 tablet by mouth 3 (three) times daily as needed for Dizziness. [facility] glecaprevir -pibrentasv ir (MAVYRET) 100-40 mg 10-28 00:00: 00 Yes [id number] 3{tbl} Take 3 tablets by mouth daily. [facility] buPROPion SR (WELLBUTRIN SR) 150 mg SR tablet 10-28 00:00: 00 Yes [id number] 150mg Take 1 tablet by mouth daily. [facility] benzoyl peroxide (ACNE FOAMING WASH) 10 % external wash 10-28 00:00: 00 Yes [id number] Apply to area(s) 2 (two) times daily. [facility] albuterol 90 mcg/actuati on inhaler 10-28 00:00: 00 Yes [id number] 2{puff} Inhale 2 Puffs every 4 (four) hours as needed for Wheezing or Shortness of Breath. [facility] albuterol 2.5 mg /3 mL (0.083 %) nebulizer solution 10-28 00:00: 00 Yes [id number] 2.5mg Inhale 3 mL every 4 (four) hours as needed for Wheezing or Shortness of Breath. [facility] meclizine 25 mg tablet 10-28 00:00: 00 Yes [id number] 25mg Take 1 tablet by mouth 3 (three) times daily as needed for Dizziness. [facility] glecaprevir -pibrentasv ir (MAVYRET) 100-40 mg 10-28 00:00: 00 Yes [id number] 3{tbl} Take 3 tablets by mouth daily. [facility] buPROPion SR (WELLBUTRIN SR) 150 mg SR tablet 10-28 00:00: 00 Yes [id number] 150mg Take 1 tablet by mouth daily. [facility] benz[facility] (ACNE FOAMING WASH) 10 % external wash 10-28 00:00: 00 Yes [id number] Apply to area(s) 2 (two) times daily. [facility] albuterol 90 mcg/actuati on inhaler 10-28 00:00: 00 Yes [id number] 2{puff} Inhale 2 Puffs every 4 (four) hours as needed for Wheezing or Shortness of Breath. [facility] al[facility]erol 2.5 mg /3 mL (0.083 %) nebulizer solution 10-28 00:00: 00 Yes [id number] 2.5mg Inhale 3 mL every 4 (four) hours as needed for Wheezing or Shortness of Breath. [facility] meclizine 25 mg tablet 10-28 00:00: 00 Yes [id number] 25mg Take 1 tablet by mouth 3 (three) times daily as needed for Dizziness. [facility] glecaprevir -pibrentasv ir (MAVYRET) 100-40 mg 10-28 00:00: 00 Yes [id number] 3{tbl} Take 3 tablets by mouth daily. [facility] buPROPion SR (WELLBUTRIN SR) 150 mg SR tablet 10-28 00:00: 00 Yes [id number] 150mg Take 1 tablet by mouth daily. [facility] benzoyl peroxide (ACNE FOAMING WASH) 10 % external wash 10-28 00:00: 00 Yes [id number] Apply to area(s) 2 (two) times daily. [facility] albuterol 90 mcg/actuati on inhaler 10-28 00:00: 00 Yes [id number] 2{puff} Inhale 2 Puffs every 4 (four) hours as needed for Wheezing or Shortness of Breath. [facility] al[facility]erol 2.5 mg /3 mL (0.083 %) nebulizer solution 10-28 00:00: 00 Yes [id number] 2.5mg Inhale 3 mL every 4 (four) hours as needed for Wheezing or Shortness of Breath. [facility] meclizine 25 mg tablet 10-28 00:00: 00 Yes [id number] 25mg Take 1 tablet by mouth 3 (three) times daily as needed for Dizziness. [facility] glecaprevir -pibrentasv ir (MAVYRET) 100-40 mg 10-28 00:00: 00 Yes [id number] 3{tbl} Take 3 tablets by mouth daily. [facility] buPROPion SR (WELLBUTRIN SR) 150 mg SR tablet 10-28 00:00: 00 Yes [id number] 150mg Take 1 tablet by mouth daily. [facility] benzoyl peroxide (ACNE FOAMING WASH) 10 % external wash 10-28 00:00: 00 Yes [id number] Apply to area(s) 2 (two) times daily. [facility] albuterol 90 mcg/actuati on inhaler 10-28 00:00: 00 Yes [id number] 2{puff} Inhale 2 Puffs every 4 (four) hours as needed for Wheezing or Shortness of Breath. [facility] albuterol 2.5 mg /3 mL (0.083 %) nebulizer solution 10-28 00:00: 00 Yes [id number] 2.5mg Inhale 3 mL every 4 (four) hours as needed for Wheezing or Shortness of Breath. [facility] meclizine 25 mg tablet 10-28 00:00: 00 Yes [id number] 25mg Take 1 tablet by mouth 3 (three) times daily as needed for Dizziness. [facility] glecaprevir -pibrentasv ir (MAVYRET) 100-40 mg 10-28 00:00: 00 Yes [id number] 3{tbl} Take 3 tablets by mouth daily. [facility] buPROPion SR (WELLBUTRIN SR) 150 mg SR tablet 10-28 00:00: 00 Yes [id number] 150mg Take 1 tablet by mouth daily. [facility] benzoyl peroxide (ACNE FOAMING WASH) 10 % external wash 10-28 00:00: 00 Yes [id number] Apply to area(s) 2 (two) times daily. [facility] mcg/actuati on inhaler 10-28 00:00: 00 Yes [id number] 2{puff} Inhale 2 Puffs every 4 (four) hours as needed for Wheezing or Shortness of Breath. [facility] 2.5 mg /3 mL (0.083 %) nebulizer solution 10-28 00:00: 00 Yes [id number] 2.5mg Inhale 3 mL every 4 (four) hours as needed for Wheezing or Shortness of Breath. [facility] meclizine 25 mg tablet 10-28 00:00: 00 Yes [id number] 25mg Take 1 tablet by mouth 3 (three) times daily as needed for Dizziness. [facility] glecaprevir -pibrentasv ir (MAVYRET) 100-40 mg 10-28 00:00: 00 Yes [id number] 3{tbl} Take 3 tablets by mouth daily. [facility] buPROPion SR (WELLBUTRIN SR) 150 mg SR tablet 10-28 00:00: 00 Yes [id number] 150mg Take 1 tablet by mouth daily. [facility] benzoyl peroxide (ACNE FOAMING WASH) 10 % external wash 10-28 00:00: 00 Yes [id number] Apply to area(s) 2 (two) times daily. [facility]erol 90 mcg/actuati on inhaler 10-28 00:00: 00 Yes [id number] 2{puff} Inhale 2 Puffs every 4 (four) hours as needed for Wheezing or Shortness of Breath. [facility]erol 2.5 mg /3 mL (0.083 %) nebulizer solution 10-28 00:00: 00 Yes [id number] 2.5mg Inhale 3 mL every 4 (four) hours as needed for Wheezing or Shortness of Breath. [facility] meclizine 25 mg tablet 10-28 00:00: 00 Yes [id number] 25mg Take 1 tablet by mouth 3 (three) times daily as needed for Dizziness. [facility] glecaprevir -pibrentasv ir (MAVYRET) 100-40 mg 10-28 00:00: 00 Yes [id number] 3{tbl} Take 3 tablets by mouth daily. [facility] buPROPion SR (WELLBUTRIN SR) 150 mg SR tablet 10-28 00:00: 00 Yes [id number] 150mg Take 1 tablet by mouth daily. [facility] benzoyl peroxide (ACNE FOAMING WASH) 10 % external wash 10-28 00:00: 00 Yes [id number] Apply to area(s) 2 (two) times daily. [facility] albuterol 90 mcg/actuati on inhaler 10-28 00:00: 00 Yes [id number] 2{puff} Inhale 2 Puffs every 4 (four) hours as needed for Wheezing or Shortness of Breath. [facility] albuterol 2.5 mg /3 mL (0.083 %) nebulizer solution 10-28 00:00: 00 Yes [id number] 2.5mg Inhale 3 mL every 4 (four) hours as needed for Wheezing or Shortness of Breath. [facility] meclizine 25 mg tablet 10-28 00:00: 00 Yes [id number] 25mg Take 1 tablet by mouth 3 (three) times daily as needed for Dizziness. [facility] glecaprevir -pibrentasv ir (MAVYRET) 100-40 mg 10-28 00:00: 00 Yes [id number] 3{tbl} Take 3 tablets by mouth daily. [facility] buPROPion SR (WELLBUTRIN SR) 150 mg SR tablet 10-28 00:00: 00 Yes [id number] 150mg Take 1 tablet by mouth daily. [facility] benzoyl peroxide (ACNE FOAMING WASH) 10 % external wash 10-28 00:00: 00 Yes [id number] Apply to area(s) 2 (two) times daily. [facility] albuterol 90 mcg/actuati on inhaler 10-28 00:00: 00 Yes [id number] 2{puff} Inhale 2 Puffs every 4 (four) hours as needed for Wheezing or Shortness of Breath. [facility] al[facility]erol 2.5 mg /3 mL (0.083 %) nebulizer solution 10-28 00:00: 00 Yes [id number] 2.5mg Inhale 3 mL every 4 (four) hours as needed for Wheezing or Shortness of Breath. [facility] meclizine 25 mg tablet 10-28 00:00: 00 Yes [id number] 25mg Take 1 tablet by mouth 3 (three) times daily as needed for Dizziness. [facility] glecaprevir -pibrentasv ir (MAVYRET) 100-40 mg 10-28 00:00: 00 Yes [id number] 3{tbl} Take 3 tablets by mouth daily. [facility] buPROPion SR (WELLBUTRIN SR) 150 mg SR tablet 10-28 00:00: 00 Yes [id number] 150mg Take 1 tablet by mouth daily. [facility] benzoyl peroxide (ACNE FOAMING WASH) 10 % external wash 10-28 00:00: 00 Yes [id number] Apply to area(s) 2 (two) times daily. [facility] albuterol 90 mcg/actuati on inhaler 10-28 00:00: 00 Yes [id number] 2{puff} Inhale 2 Puffs every 4 (four) hours as needed for Wheezing or Shortness of Breath. [facility] albuterol 2.5 mg /3 mL (0.083 %) nebulizer solution 10-28 00:00: 00 Yes [id number] 2.5mg Inhale 3 mL every 4 (four) hours as needed for Wheezing or Shortness of Breath. [facility] meclizine 25 mg tablet 10-28 00:00: 00 Yes [id number] 25mg Take 1 tablet by mouth 3 (three) times daily as needed for Dizziness. [facility] glecaprevir -pibrentasv ir (MAVYRET) 100-40 mg 10-28 00:00: 00 Yes [id number] 3{tbl} Take 3 tablets by mouth daily. [facility] buPROPion SR (WELLBUTRIN SR) 150 mg SR tablet 10-28 00:00: 00 Yes [id number] 150mg Take 1 tablet by mouth daily. [facility] benzoyl peroxide (ACNE FOAMING WASH) 10 % external wash 10-28 00:00: 00 Yes [id number] Apply to area(s) 2 (two) times daily. [facility] albuterol 90 mcg/actuati on inhaler 10-28 00:00: 00 Yes [id number] 2{puff} Inhale 2 Puffs every 4 (four) hours as needed for Wheezing or Shortness of Breath. [facility] albuterol 2.5 mg /3 mL (0.083 %) nebulizer solution 10-28 00:00: 00 Yes [id number] 2.5mg Inhale 3 mL every 4 (four) hours as needed for Wheezing or Shortness of Breath. [facility] meclizine 25 mg tablet 10-28 00:00: 00 Yes [id number] 25mg Take 1 tablet by mouth 3 (three) times daily as needed for Dizziness. [facility] glecaprevir -pibrentasv ir (MAVYRET) 100-40 mg 10-28 00:00: 00 Yes [id number] 3{tbl} Take 3 tablets by mouth daily. [facility] buPROPion SR (WELLBUTRIN SR) 150 mg SR tablet 10-28 00:00: 00 Yes [id number] 150mg Take 1 tablet by mouth daily. [facility] benzoyl peroxide (ACNE FOAMING WASH) 10 % external wash 10-28 00:00: 00 Yes [id number] Apply to area(s) 2 (two) times daily. [facility] albuterol 90 mcg/actuati on inhaler 10-28 00:00: 00 Yes [id number] 2{puff} Inhale 2 Puffs every 4 (four) hours as needed for Wheezing or Shortness of Breath. [facility] albuterol 2.5 mg /3 mL (0.083 %) nebulizer solution 10-28 00:00: 00 Yes [id number] 2.5mg Inhale 3 mL every 4 (four) hours as needed for Wheezing or Shortness of Breath. [facility] meclizine 25 mg tablet 10-28 00:00: 00 Yes [id number] 25mg Take 1 tablet by mouth 3 (three) times daily as needed for Dizziness. [facility] glecaprevir -pibrentasv ir (MAVYRET) 100-40 mg 10-28 00:00: 00 Yes [id number] 3{tbl} Take 3 tablets by mouth daily. [facility] buPROPion SR (WELLBUTRIN SR) 150 mg SR tablet 10-28 00:00: 00 Yes [id number] 150mg Take 1 tablet by mouth daily. [facility] benzoyl peroxide (ACNE FOAMING WASH) 10 % external wash 10-28 00:00: 00 Yes [id number] Apply to area(s) 2 (two) times daily. [facility] albuterol 90 mcg/actuati on inhaler 10-28 00:00: 00 Yes [id number] 2{puff} Inhale 2 Puffs every 4 (four) hours as needed for Wheezing or Shortness of Breath. [facility] albuterol 2.5 mg /3 mL (0.083 %) nebulizer solution 10-28 00:00: 00 Yes [id number] 2.5mg Inhale 3 mL every 4 (four) hours as needed for Wheezing or Shortness of Breath. [facility] meclizine 25 mg tablet 10-28 00:00: 00 Yes [id number] 25mg Take 1 tablet by mouth 3 (three) times daily as needed for Dizziness. [facility] glecaprevir -pibrentasv ir (MAVYRET) 100-40 mg 10-28 00:00: 00 Yes [id number] 3{tbl} Take 3 tablets by mouth daily. [facility] buPROPion SR (WELLBUTRIN SR) 150 mg SR tablet 10-28 00:00: 00 Yes [id number] 150mg Take 1 tablet by mouth daily. [facility] benzoyl peroxide (ACNE FOAMING WASH) 10 % external wash 10-28 00:00: 00 Yes [id number] Apply to area(s) 2 (two) times daily. [facility] albuterol 90 mcg/actuati on inhaler 10-28 00:00: 00 Yes [id number] 2{puff} Inhale 2 Puffs every 4 (four) hours as needed for Wheezing or Shortness of Breath. [facility] albuterol 2.5 mg /3 mL (0.083 %) nebulizer solution 10-28 00:00: 00 Yes [id number] 2.5mg Inhale 3 mL every 4 (four) hours as needed for Wheezing or Shortness of Breath. [facility] meclizine 25 mg tablet 10-28 00:00: 00 Yes [id number] 25mg Take 1 tablet by mouth 3 (three) times daily as needed for Dizziness. [facility] glecaprevir -pibrentasv ir (MAVYRET) 100-40 mg 10-28 00:00: 00 Yes [id number] 3{tbl} Take 3 tablets by mouth daily. [facility] buPROPion SR (WELLBUTRIN SR) 150 mg SR tablet 10-28 00:00: 00 Yes [id number] 150mg Take 1 tablet by mouth daily. [facility] benzoyl peroxide (ACNE FOAMING WASH) 10 % external wash 10-28 00:00: 00 Yes [id number] Apply to area(s) 2 (two) times daily. [facility] albuterol 90 mcg/actuati on inhaler 10-28 00:00: 00 Yes [id number] 2{puff} Inhale 2 Puffs every 4 (four) hours as needed for Wheezing or Shortness of Breath. [facility] albuterol 2.5 mg /3 mL (0.083 %) nebulizer solution 10-28 00:00: 00 Yes [id number] 2.5mg Inhale 3 mL every 4 (four) hours as needed for Wheezing or Shortness of Breath. [facility] meclizine 25 mg tablet 10-28 00:00: 00 Yes [id number] 25mg Take 1 tablet by mouth 3 (three) times daily as needed for Dizziness. [facility] glecaprevir -pibrentasv ir (MAVYRET) 100-40 mg 10-28 00:00: 00 Yes [id number] 3{tbl} Take 3 tablets by mouth daily. [facility] buPROPion SR (WELLBUTRIN SR) 150 mg SR tablet 10-28 00:00: 00 Yes [id number] 150mg Take 1 tablet by mouth daily. [facility] benzoyl peroxide (ACNE FOAMING WASH) 10 % external wash 10-28 00:00: 00 Yes [id number] Apply to area(s) 2 (two) times daily. [facility] albuterol 90 mcg/actuati on inhaler 10-28 00:00: 00 Yes [id number] 2{puff} Inhale 2 Puffs every 4 (four) hours as needed for Wheezing or Shortness of Breath. [facility] albuterol 2.5 mg /3 mL (0.083 %) nebulizer solution 10-28 00:00: 00 Yes [id number] 2.5mg Inhale 3 mL every 4 (four) hours as needed for Wheezing or Shortness of Breath. [facility] meclizine 25 mg tablet 10-28 00:00: 00 Yes [id number] 25mg Take 1 tablet by mouth 3 (three) times daily as needed for Dizziness. [facility] glecaprevir -pibrentasv ir (MAVYRET) 100-40 mg 10-28 00:00: 00 Yes [id number] 3{tbl} Take 3 tablets by mouth daily. [facility] buPROPion SR (WELLBUTRIN SR) 150 mg SR tablet 10-28 00:00: 00 Yes [id number] 150mg Take 1 tablet by mouth daily. [facility] benzoyl peroxide (ACNE FOAMING WASH) 10 % external wash 10-28 00:00: 00 Yes [id number] Apply to area(s) 2 (two) times daily. [facility] albuterol 90 mcg/actuati on inhaler 10-28 00:00: 00 Yes [id number] 2{puff} Inhale 2 Puffs every 4 (four) hours as needed for Wheezing or Shortness of Breath. [facility] albuterol 2.5 mg /3 mL (0.083 %) nebulizer solution 10-28 00:00: 00 Yes [id number] 2.5mg Inhale 3 mL every 4 (four) hours as needed for Wheezing or Shortness of Breath. [facility] meclizine 25 mg tablet 10-28 00:00: 00 Yes [id number] 25mg Take 1 tablet by mouth 3 (three) times daily as needed for Dizziness. [facility] glecaprevir -pibrentasv ir (MAVYRET) 100-40 mg 10-28 00:00: 00 Yes [id number] 3{tbl} Take 3 tablets by mouth daily. [facility] buPROPion SR (WELLBUTRIN SR) 150 mg SR tablet 10-28 00:00: 00 Yes [id number] 150mg Take 1 tablet by mouth daily. [facility] benzoyl peroxide (ACNE FOAMING WASH) 10 % external wash 10-28 00:00: 00 Yes [id number] Apply to area(s) 2 (two) times daily. [facility] albuterol 90 mcg/actuati on inhaler 10-28 00:00: 00 Yes [id number] 2{puff} Inhale 2 Puffs every 4 (four) hours as needed for Wheezing or Shortness of Breath. [facility] albuterol 2.5 mg /3 mL (0.083 %) nebulizer solution 10-28 00:00: 00 Yes [id number] 2.5mg Inhale 3 mL every 4 (four) hours as needed for Wheezing or Shortness of Breath. [facility] meclizine 25 mg tablet 10-28 00:00: 00 Yes [id number] 25mg Take 1 tablet by mouth 3 (three) times daily as needed for Dizziness. [facility] glecaprevir -pibrentasv ir (MAVYRET) 100-40 mg 10-28 00:00: 00 Yes [id number] 3{tbl} Take 3 tablets by mouth daily. [facility] buPROPion SR (WELLBUTRIN SR) 150 mg SR tablet 10-28 00:00: 00 Yes [id number] 150mg Take 1 tablet by mouth daily. [facility] benzoyl peroxide (ACNE FOAMING WASH) 10 % external wash 10-28 00:00: 00 Yes [id number] Apply to area(s) 2 (two) times daily. [facility] albuterol 90 mcg/actuati on inhaler 10-28 00:00: 00 Yes [id number] 2{puff} Inhale 2 Puffs every 4 (four) hours as needed for Wheezing or Shortness of Breath. [facility] albuterol 2.5 mg /3 mL (0.083 %) nebulizer solution 10-28 00:00: 00 Yes [id number] 2.5mg Inhale 3 mL every 4 (four) hours as needed for Wheezing or Shortness of Breath. [facility] meclizine 25 mg tablet 10-28 00:00: 00 Yes [id number] 25mg Take 1 tablet by mouth 3 (three) times daily as needed for Dizziness. [facility] glecaprevir -pibrentasv ir (MAVYRET) 100-40 mg 10-28 00:00: 00 Yes [id number] 3{tbl} Take 3 tablets by mouth daily. [facility] buPROPion SR (WELLBUTRIN SR) 150 mg SR tablet 10-28 00:00: 00 Yes [id number] 150mg Take 1 tablet by mouth daily. [facility] benzoyl peroxide (ACNE FOAMING WASH) 10 % external wash 10-28 00:00: 00 Yes [id number] Apply to area(s) 2 (two) times daily. [facility] albuterol 90 mcg/actuati on inhaler 10-28 00:00: 00 Yes [id number] 2{puff} Inhale 2 Puffs every 4 (four) hours as needed for Wheezing or Shortness of Breath. [facility] albuterol 2.5 mg /3 mL (0.083 %) nebulizer solution 10-28 00:00: 00 Yes [id number] 2.5mg Inhale 3 mL every 4 (four) hours as needed for Wheezing or Shortness of Breath. [facility] meclizine 25 mg tablet 10-28 00:00: 00 Yes [id number] 25mg Take 1 tablet by mouth 3 (three) times daily as needed for Dizziness. [facility] glecaprevir -pibrentasv ir (MAVYRET) 100-40 mg 10-28 00:00: 00 Yes [id number] 3{tbl} Take 3 tablets by mouth daily. [facility] buPROPion SR (WELLBUTRIN SR) 150 mg SR tablet 10-28 00:00: 00 Yes [id number] 150mg Take 1 tablet by mouth daily. [facility] benzoyl peroxide (ACNE FOAMING WASH) 10 % external wash 10-28 00:00: 00 Yes [id number] Apply to area(s) 2 (two) times daily. [facility] al[facility]erol 90 mcg/actuati on inhaler 10-28 00:00: 00 Yes [id number] 2{puff} Inhale 2 Puffs every 4 (four) hours as needed for Wheezing or Shortness of Breath. [facility] al[facility]erol 2.5 mg /3 mL (0.083 %) nebulizer solution 10-28 00:00: 00 Yes [id number] 2.5mg Inhale 3 mL every 4 (four) hours as needed for Wheezing or Shortness of Breath. [facility] meclizine 25 mg tablet 10-28 00:00: 00 Yes [id number] 25mg Take 1 tablet by mouth 3 (three) times daily as needed for Dizziness. [facility] glecaprevir -pibrentasv ir (MAVYRET) 100-40 mg 10-28 00:00: 00 Yes [id number] 3{tbl} Take 3 tablets by mouth daily. [facility] buPROPion SR (WELLBUTRIN SR) 150 mg SR tablet 10-28 00:00: 00 Yes [id number] 150mg Take 1 tablet by mouth daily. [facility] benzoyl peroxide (ACNE FOAMING WASH) 10 % external wash 10-28 00:00: 00 Yes [id number] Apply to area(s) 2 (two) times daily. [facility] albuterol 90 mcg/actuati on inhaler 10-28 00:00: 00 Yes [id number] 2{puff} Inhale 2 Puffs every 4 (four) hours as needed for Wheezing or Shortness of Breath. [facility] albuterol 2.5 mg /3 mL (0.083 %) nebulizer solution 10-28 00:00: 00 Yes [id number] 2.5mg Inhale 3 mL every 4 (four) hours as needed for Wheezing or Shortness of Breath. [facility] meclizine 25 mg tablet 10-28 00:00: 00 Yes [id number] 25mg Take 1 tablet by mouth 3 (three) times daily as needed for Dizziness. [facility] glecaprevir -pibrentasv ir (MAVYRET) 100-40 mg 10-28 00:00: 00 Yes [id number] 3{tbl} Take 3 tablets by mouth daily. [facility] buPROPion SR (WELLBUTRIN SR) 150 mg SR tablet 10-28 00:00: 00 Yes [id number] 150mg Take 1 tablet by mouth daily. [facility] benzoyl peroxide (ACNE FOAMING WASH) 10 % external wash 10-28 00:00: 00 Yes [id number] Apply to area(s) 2 (two) times daily. [facility] albuterol 90 mcg/actuati on inhaler 10-28 00:00: 00 Yes [id number] 2{puff} Inhale 2 Puffs every 4 (four) hours as needed for Wheezing or Shortness of Breath. [facility] albuterol 2.5 mg /3 mL (0.083 %) nebulizer solution 10-28 00:00: 00 Yes [id number] 2.5mg Inhale 3 mL every 4 (four) hours as needed for Wheezing or Shortness of Breath. [facility] meclizine 25 mg tablet 10-28 00:00: 00 Yes [id number] 25mg Take 1 tablet by mouth 3 (three) times daily as needed for Dizziness. [facility] glecaprevir -pibrentasv ir (MAVYRET) 100-40 mg 10-28 00:00: 00 Yes [id number] 3{tbl} Take 3 tablets by mouth daily. [facility] buPROPion SR (WELLBUTRIN SR) 150 mg SR tablet 10-28 00:00: 00 Yes [id number] 150mg Take 1 tablet by mouth daily. [facility] benzoyl peroxide (ACNE FOAMING WASH) 10 % external wash 10-28 00:00: 00 Yes [id number] Apply to area(s) 2 (two) times daily. [facility] albuterol 90 mcg/actuati on inhaler 10-28 00:00: 00 Yes [id number] 2{puff} Inhale 2 Puffs every 4 (four) hours as needed for Wheezing or Shortness of Breath. [facility] al[facility]erol 2.5 mg /3 mL (0.083 %) nebulizer solution 10-28 00:00: 00 Yes [id number] 2.5mg Inhale 3 mL every 4 (four) hours as needed for Wheezing or Shortness of Breath. [facility] meclizine 25 mg tablet 10-28 00:00: 00 Yes [id number] 25mg Take 1 tablet by mouth 3 (three) times daily as needed for Dizziness. [facility] glecaprevir -pibrentasv ir (MAVYRET) 100-40 mg 10-28 00:00: 00 Yes [id number] 3{tbl} Take 3 tablets by mouth daily. [facility] buPROPion SR (WELLBUTRIN SR) 150 mg SR tablet 10-28 00:00: 00 Yes [id number] 150mg Take 1 tablet by mouth daily. [facility] benzoyl peroxide (ACNE FOAMING WASH) 10 % external wash 10-28 00:00: 00 Yes [id number] Apply to area(s) 2 (two) times daily. [facility] albuterol 90 mcg/actuati on inhaler 10-28 00:00: 00 Yes [id number] 2{puff} Inhale 2 Puffs every 4 (four) hours as needed for Wheezing or Shortness of Breath. [facility] al[facility]erol 2.5 mg /3 mL (0.083 %) nebulizer solution 10-28 00:00: 00 Yes [id number] 2.5mg Inhale 3 mL every 4 (four) hours as needed for Wheezing or Shortness of Breath. [facility] meclizine 25 mg tablet 10-28 00:00: 00 Yes [id number] 25mg Take 1 tablet by mouth 3 (three) times daily as needed for Dizziness. [facility] glecaprevir -pibrentasv ir (MAVYRET) 100-40 mg 10-28 00:00: 00 04-01 00:00 :00 No [id number] 3{tbl} Take 3 tablets by mouth daily. [facility] buPROPion SR (WELLBUTRIN SR) 150 mg SR tablet 10-28 00:00: 00 04-01 00:00 :00 No [id number] 150mg Take 1 tablet by mouth daily. [facility] benzoyl peroxide (ACNE FOAMING WASH) 10 % external wash 10-28 00:00: 00 04-01 00:00 :00 No [id number] Apply to area(s) 2 (two) times daily. [facility] albuterol 90 mcg/actuati on inhaler 10-28 00:00: 00 04-01 00:00 :00 No [id number] 2{puff} Inhale 2 Puffs every 4 (four) hours as needed for Wheezing or Shortness of Breath. [facility] albuterol 2.5 mg /3 mL (0.083 %) nebulizer solution 10-28 00:00: 00 04-01 00:00 :00 No [id number] 2.5mg Inhale 3 mL every 4 (four) hours as needed for Wheezing or Shortness of Breath. [facility] meclizine 25 mg tablet 10-28 00:00: 00 04-01 00:00 :00 No [id number] 25mg Take 1 tablet by mouth 3 (three) times daily as needed for Dizziness. [facility] glecaprevir -pibrentasv ir (MAVYRET) 100-40 mg 10-28 00:00: 00 04-01 00:00 :00 No [id number] 3{tbl} Take 3 tablets by mouth daily. [facility] buPROPion SR (WELLBUTRIN SR) 150 mg SR tablet 10-28 00:00: 00 04-01 00:00 :00 No [id number] 150mg Take 1 tablet by mouth daily. [facility] benzoyl peroxide (ACNE FOAMING WASH) 10 % external wash 10-28 00:00: 00 04-01 00:00 :00 No [id number] Apply to area(s) 2 (two) times daily. [facility] albuterol 90 mcg/actuati on inhaler 10-28 00:00: 00 04-01 00:00 :00 No [id number] 2{puff} Inhale 2 Puffs every 4 (four) hours as needed for Wheezing or Shortness of Breath. [facility] albuterol 2.5 mg /3 mL (0.083 %) nebulizer solution 10-28 00:00: 00 04-01 00:00 :00 No [id number] 2.5mg Inhale 3 mL every 4 (four) hours as needed for Wheezing or Shortness of Breath. [facility] meclizine 25 mg tablet 10-28 00:00: 00 04-01 00:00 :00 No [id number] 25mg Take 1 tablet by mouth 3 (three) times daily as needed for Dizziness. [facility] glecaprevir -pibrentasv ir (MAVYRET) 100-40 mg 10-28 00:00: 00 04-01 00:00 :00 No [id number] 3{tbl} Take 3 tablets by mouth daily. [facility] bu[facility]ion SR (WELLBUTRIN SR) 150 mg SR tablet 10-28 00:00: 00 04-01 00:00 :00 No [id number] 150mg Take 1 tablet by mouth daily. [facility] benzoyl peroxide (ACNE FOAMING WASH) 10 % external wash 10-28 00:00: 00 04-01 00:00 :00 No [id number] Apply to area(s) 2 (two) times daily. [facility] [facility]/actuati on inhaler 10-28 00:00: 00 04-01 00:00 :00 No [id number] 2{puff} Inhale 2 Puffs every 4 (four) hours as needed for Wheezing or Shortness of Breath. [facility] albuterol 2.5 mg /3 mL (0.083 %) nebulizer solution 10-28 00:00: 00 04-01 00:00 :00 No [id number] 2.5mg Inhale 3 mL every 4 (four) hours as needed for Wheezing or Shortness of Breath. [facility] meclizine 25 mg tablet 10-28 00:00: 00 04-01 00:00 :00 No [id number] 25mg Take 1 tablet by mouth 3 (three) times daily as needed for Dizziness. [facility] glecaprevir -pibrentasv ir (MAVYRET) 100-40 mg 10-28 00:00: 00 04-01 00:00 :00 No [id number] 3{tbl} Take 3 tablets by mouth daily. [facility] buPROPion SR (WELLBUTRIN SR) 150 mg SR tablet 10-28 00:00: 00 04-01 00:00 :00 No [id number] 150mg Take 1 tablet by mouth daily. [facility] benzoyl peroxide (ACNE FOAMING WASH) 10 % external wash 10-28 00:00: 00 04-01 00:00 :00 No [id number] Apply to area(s) 2 (two) times daily. [facility] albuterol 90 mcg/actuati on inhaler 10-28 00:00: 00 04-01 00:00 :00 No [id number] 2{puff} Inhale 2 Puffs every 4 (four) hours as needed for Wheezing or Shortness of Breath. [facility] albuterol 2.5 mg /3 mL (0.083 %) nebulizer solution 10-28 00:00: 00 04-01 00:00 :00 No [id number] 2.5mg Inhale 3 mL every 4 (four) hours as needed for Wheezing or Shortness of Breath. [facility] meclizine 25 mg tablet 10-28 00:00: 00 04-01 00:00 :00 No [id number] 25mg Take 1 tablet by mouth 3 (three) times daily as needed for Dizziness. [facility] valACYclovi r 1 gram tablet 10-28 00:00: 00 02-02 00:00 :00 No [id number] 1g Take 1 tablet by mouth daily. [facility] valACYclovi r 1 gram tablet 10-28 00:00: 00 02-02 00:00 :00 No [id number] 1g Take 1 tablet by mouth daily. [facility] valACYclovi r 1 gram tablet 10-28 00:00: 00 02-02 00:00 :00 No [id number] 1g Take 1 tablet by mouth daily. [facility] valACYclovi r 1 gram tablet 10-28 00:00: 00 02-02 00:00 :00 No [id number] 1g Take 1 tablet by mouth daily. [facility] lidocaine 3 % Crea 10-28 00:00: 00 11-07 00:00 :00 No [id number] 2g Apply 2 g to area(s) 3 (three) times daily as needed for Pain (scale 4-6). [facility] bromphenira mine-pseudo ephedrine-D M (BROMFED DM) 2-30-10 mg/5 mL syrup 10-28 00:00: 00 11-07 00:00 :00 No [id number] 5mL Take 5 mL by mouth 4 (four) times daily as needed for Congestion /Allergies . [facility] dicyclomine 20 mg tablet 10-28 00:00: 00 11-07 00:00 :00 No [id number] 20mg Take 1 tablet by mouth every 6 (six) hours as needed for Abdominal pain. [facility] DULoxetine 20 mg capsule 2020-0 321 00:00: 00 12-20 00:00 :00 No [id number] 20mg Take 1 capsule by mouth 2 (two) times daily. [facility] topiramate 50 mg tablet 2020-0 3-18 00:00: 00 Yes 50mg Take 1 tablet by mouth 2 (two) times daily. [facility] topiramate 50 mg tablet 2020-0 3-18 00:00: 00 Yes 50mg Take 1 tablet by mouth 2 (two) times daily. [facility] topiramate 50 mg tablet 2020-0 18 00:00: 00 Yes 50mg Take 1 tablet by mouth 2 (two) times daily. [facility] topiramate 50 mg tablet 2020-0 -18 00:00: 00 Yes 50mg Take 1 tablet by mouth 2 (two) times daily. [facility] topiramate 50 mg tablet 2020-0 18 00:00: 00 Yes 50mg Take 1 tablet by mouth 2 (two) times daily. [facility] topiramate 50 mg tablet 2020-0 318 00:00: 00 Yes 50mg Take 1 tablet by mouth 2 (two) times daily. [facility] topiramate 50 mg tablet 2020-0 3-18 00:00: 00 Yes 50mg Take 1 tablet by mouth 2 (two) times daily. [facility] topiramate 50 mg tablet 2020-0 3-18 00:00: 00 Yes 50mg Take 1 tablet by mouth 2 (two) times daily. [facility] topiramate 50 mg tablet 2020-0 3-18 00:00: 00 Yes 50mg Take 1 tablet by mouth 2 (two) times daily. [facility] topiramate 50 mg tablet 2020-0 3-18 00:00: 00 Yes 50mg Take 1 tablet by mouth 2 (two) times daily. [facility] topiramate 50 mg tablet 2020-0 3-18 00:00: 00 Yes 50mg Take 1 tablet by mouth 2 (two) times daily. [facility] topiramate 50 mg tablet 1-0 3-18 00:00: 00 Yes 50mg Take 1 tablet by mouth 2 (two) times daily. [facility] topiramate 50 mg tablet 1-0 3-18 00:00: 00 Yes 50mg Take 1 tablet by mouth 2 (two) times daily. [facility] topiramate 50 mg tablet 1-0 3-18 00:00: 00 Yes 50mg Take 1 tablet by mouth 2 (two) times daily. [facility] topiramate 50 mg tablet 1-0 318 00:00: 00 Yes 50mg Take 1 tablet by mouth 2 (two) times daily. [facility] topiramate 50 mg tablet 1-0 3-18 00:00: 00 Yes 50mg Take 1 tablet by mouth 2 (two) times daily. [facility] topiramate 50 mg tablet 1-0 318 00:00: 00 Yes 50mg Take 1 tablet by mouth 2 (two) times daily. [facility] topiramate 50 mg tablet 1-0 318 00:00: 00 Yes 50mg Take 1 tablet by mouth 2 (two) times daily. [facility] topiramate 50 mg tablet 1-0 318 00:00: 00 Yes 50mg Take 1 tablet by mouth 2 (two) times daily. [facility] topiramate 50 mg tablet 1-0 318 00:00: 00 Yes 50mg Take 1 tablet by mouth 2 (two) times daily. [facility] topiramate 50 mg tablet 1-0 3-18 00:00: 00 Yes 50mg Take 1 tablet by mouth 2 (two) times daily. [facility] topiramate 50 mg tablet 1-0 3-18 00:00: 00 Yes 50mg Take 1 tablet by mouth 2 (two) times daily. [facility] topiramate 50 mg tablet 1-0 3-18 00:00: 00 Yes 50mg Take 1 tablet by mouth 2 (two) times daily. [facility] topiramate 50 mg tablet 1-0 3-18 00:00: 00 Yes 50mg Take 1 tablet by mouth 2 (two) times daily. [facility] top[facility] 50 mg tablet 1-0 3-18 00:00: 00 Yes 50mg Take 1 tablet by mouth 2 (two) times daily. [facility] topiramate 50 mg tablet 1-0 3-18 00:00: 00 Yes 50mg Take 1 tablet by mouth 2 (two) times daily. [facility] topiramate 50 mg tablet 1-0 3-18 00:00: 00 Yes 50mg Take 1 tablet by mouth 2 (two) times daily. [facility] topiramate 50 mg tablet 1-0 318 00:00: 00 Yes 50mg Take 1 tablet by mouth 2 (two) times daily. [facility] topiramate 50 mg tablet 1-0 318 00:00: 00 Yes 50mg Take 1 tablet by mouth 2 (two) times daily. [facility] topiramate 50 mg tablet 1-0 318 00:00: 00 Yes 50mg Take 1 tablet by mouth 2 (two) times daily. [facility] topiramate 50 mg tablet 1-0 318 00:00: 00 Yes 50mg Take 1 tablet by mouth 2 (two) times daily. [facility] topiramate 50 mg tablet 1-0 318 00:00: 00 Yes 50mg Take 1 tablet by mouth 2 (two) times daily. [facility] topiramate 50 mg tablet 1-0 318 00:00: 00 Yes 50mg Take 1 tablet by mouth 2 (two) times daily. [facility] topiramate 50 mg tablet 1-0 3-18 00:00: 00 Yes 50mg Take 1 tablet by mouth 2 (two) times daily. [facility] topiramate 50 mg tablet 1-0 3-18 00:00: 00 Yes 50mg Take 1 tablet by mouth 2 (two) times daily. [facility] topiramate 50 mg tablet 1-0 3-18 00:00: 00 Yes 50mg Take 1 tablet by mouth 2 (two) times daily. [facility] topiramate 50 mg tablet 2020-0 318 00:00: 00 Yes 50mg Take 1 tablet by mouth 2 (two) times daily. [facility] topiramate 50 mg tablet 318 00:00: 00 Yes 50mg Take 1 tablet by mouth 2 (two) times daily. [facility] topiramate 50 mg tablet 18 00:00: 00 Yes 50mg Take 1 tablet by mouth 2 (two) times daily. [facility] topiramate 50 mg tablet 18 00:00: 00 Yes 50mg Take 1 tablet by mouth 2 (two) times daily. [facility] topiramate 50 mg tablet 18 00:00: 00 Yes 50mg Take 1 tablet by mouth 2 (two) times daily. [facility] topiramate 50 mg tablet 18 00:00: 00 04-01 00:00 :00 No 50mg Take 1 tablet by mouth 2 (two) times daily. [facility] topiramate 50 mg tablet 18 00:00: 00 04-01 00:00 :00 No 50mg Take 1 tablet by mouth 2 (two) times daily. [facility] topiramate 50 mg tablet 18 00:00: 00 04-01 00:00 :00 No 50mg Take 1 tablet by mouth 2 (two) times daily. [facility] topiramate 50 mg tablet 18 00:00: 00 04-01 00:00 :00 No 50mg Take 1 tablet by mouth 2 (two) times daily. [facility] fluticasone propionate 110 mcg/actuati on inhaler 08-17 00:00: 00 Yes [id number] 1{puff} Inhale 1 Puff every 12 (twelve) hours. [facility] carBAMazepi ne 400 mg 12 hr tablet 08-17 00:00: 00 Yes [id number] 400mg Take 1 tablet by mouth 2 (two) times daily. [facility] triamcinolo ne acetonide 0.1 % cream 08-17 00:00: 00 Yes [id number] Apply to area(s) 2 (two) times daily. [facility] tretinoin 0.075 % Crea 08-17 00:00: 00 Yes [id number] 1g Apply 1 g to area(s) at bedtime. [facility] doxepin 50 mg capsule 08-17 00:00: 00 Yes [id number] 50mg Take 1 capsule by mouth at bedtime. [facility] ipratropium 0.02 % nebulizer solution 08-17 00:00: 00 Yes [id number] .5mg Inhale 2.5 mL every 8 (eight) hours as needed for Wheezing or Shortness of Breath. [facility] fluticasone propionate 110 mcg/actuati on inhaler 08-17 00:00: 00 Yes [id number] 1{puff} Inhale 1 Puff every 12 (twelve) hours. [facility] carBAMazepi ne 400 mg 12 hr tablet 08-17 00:00: 00 Yes [id number] 400mg Take 1 tablet by mouth 2 (two) times daily. [facility] triamcinolo ne acetonide 0.1 % cream 08-17 00:00: 00 Yes [id number] Apply to area(s) 2 (two) times daily. [facility] tretinoin 0.075 % Crea 08-17 00:00: 00 Yes [id number] 1g Apply 1 g to area(s) at bedtime. [facility] doxepin 50 mg capsule 08-17 00:00: 00 Yes [id number] 50mg Take 1 capsule by mouth at bedtime. [facility] ipratropium 0.02 % nebulizer solution 08-17 00:00: 00 Yes [id number] .5mg Inhale 2.5 mL every 8 (eight) hours as needed for Wheezing or Shortness of Breath. [facility] fluticasone propionate 110 mcg/actuati on inhaler 08-17 00:00: 00 Yes [id number] 1{puff} Inhale 1 Puff every 12 (twelve) hours. [facility] carBAMazepi ne 400 mg 12 hr tablet 08-17 00:00: 00 Yes [id number] 400mg Take 1 tablet by mouth 2 (two) times daily. [facility] triamcinolo ne acetonide 0.1 % cream 08-17 00:00: 00 Yes [id number] Apply to area(s) 2 (two) times daily. [facility] tretinoin 0.075 % Crea 08-17 00:00: 00 Yes [id number] 1g Apply 1 g to area(s) at bedtime. [facility] doxepin 50 mg capsule 08-17 00:00: 00 Yes [id number] 50mg Take 1 capsule by mouth at bedtime. [facility] ipratropium 0.02 % nebulizer solution 08-17 00:00: 00 Yes [id number] .5mg Inhale 2.5 mL every 8 (eight) hours as needed for Wheezing or Shortness of Breath. [facility] fluticasone propionate 110 mcg/actuati on inhaler 08-17 00:00: 00 Yes [id number] 1{puff} Inhale 1 Puff every 12 (twelve) hours. [facility] carBAMazepi ne 400 mg 12 hr tablet 08-17 00:00: 00 Yes [id number] 400mg Take 1 tablet by mouth 2 (two) times daily. [facility] triamcinolo ne acetonide 0.1 % cream 08-17 00:00: 00 Yes [id number] Apply to area(s) 2 (two) times daily. [facility] tretinoin 0.075 % Crea 08-17 00:00: 00 Yes [id number] 1g Apply 1 g to area(s) at bedtime. [facility] doxepin 50 mg capsule 08-17 00:00: 00 Yes [id number] 50mg Take 1 capsule by mouth at bedtime. [facility] ipratropium 0.02 % nebulizer solution 08-17 00:00: 00 Yes [id number] .5mg Inhale 2.5 mL every 8 (eight) hours as needed for Wheezing or Shortness of Breath. [facility] fluticasone propionate 110 mcg/actuati on inhaler 08-17 00:00: 00 Yes [id number] 1{puff} Inhale 1 Puff every 12 (twelve) hours. [facility] carBAMazepi ne 400 mg 12 hr tablet 08-17 00:00: 00 Yes [id number] 400mg Take 1 tablet by mouth 2 (two) times daily. [facility] triamcinolo ne acetonide 0.1 % cream 08-17 00:00: 00 Yes [id number] Apply to area(s) 2 (two) times daily. [facility] tretinoin 0.075 % Crea 08-17 00:00: 00 Yes [id number] 1g Apply 1 g to area(s) at bedtime. [facility] doxepin 50 mg capsule 08-17 00:00: 00 Yes [id number] 50mg Take 1 capsule by mouth at bedtime. [facility] ipratropium 0.02 % nebulizer solution 08-17 00:00: 00 Yes [id number] .5mg Inhale 2.5 mL every 8 (eight) hours as needed for Wheezing or Shortness of Breath. [facility] fluticasone propionate 110 mcg/actuati on inhaler 08-17 00:00: 00 Yes [id number] 1{puff} Inhale 1 Puff every 12 (twelve) hours. [facility] carBAMazepi ne 400 mg 12 hr tablet 08-17 00:00: 00 Yes [id number] 400mg Take 1 tablet by mouth 2 (two) times daily. [facility] triamcinolo ne acetonide 0.1 % cream 08-17 00:00: 00 Yes [id number] Apply to area(s) 2 (two) times daily. [facility] tretinoin 0.075 % Crea 08-17 00:00: 00 Yes [id number] 1g Apply 1 g to area(s) at bedtime. [facility] doxepin 50 mg capsule 08-17 00:00: 00 Yes [id number] 50mg Take 1 capsule by mouth at bedtime. [facility] ipratropium 0.02 % nebulizer solution 08-17 00:00: 00 Yes [id number] .5mg Inhale 2.5 mL every 8 (eight) hours as needed for Wheezing or Shortness of Breath. [facility] fluticasone propionate 110 mcg/actuati on inhaler 08-17 00:00: 00 Yes [id number] 1{puff} Inhale 1 Puff every 12 (twelve) hours. [facility] carBAMazepi ne 400 mg 12 hr tablet 08-17 00:00: 00 Yes [id number] 400mg Take 1 tablet by mouth 2 (two) times daily. [facility] triamcinolo ne acetonide 0.1 % cream 08-17 00:00: 00 Yes [id number] Apply to area(s) 2 (two) times daily. [facility] tretinoin 0.075 % Crea 08-17 00:00: 00 Yes [id number] 1g Apply 1 g to area(s) at bedtime. [facility] doxepin 50 mg capsule 08-17 00:00: 00 Yes [id number] 50mg Take 1 capsule by mouth at bedtime. [facility] ipratropium 0.02 % nebulizer solution 08-17 00:00: 00 Yes [id number] .5mg Inhale 2.5 mL every 8 (eight) hours as needed for Wheezing or Shortness of Breath. [facility] fluticasone propionate 110 mcg/actuati on inhaler 08-17 00:00: 00 Yes [id number] 1{puff} Inhale 1 Puff every 12 (twelve) hours. [facility] carBAMazepi ne 400 mg 12 hr tablet 08-17 00:00: 00 Yes [id number] 400mg Take 1 tablet by mouth 2 (two) times daily. [facility] triamcinolo ne acetonide 0.1 % cream 08-17 00:00: 00 Yes [id number] Apply to area(s) 2 (two) times daily. [facility] tretinoin 0.075 % Crea 08-17 00:00: 00 Yes [id number] 1g Apply 1 g to area(s) at bedtime. [facility] doxepin 50 mg capsule 08-17 00:00: 00 Yes [id number] 50mg Take 1 capsule by mouth at bedtime. [facility] ipratropium 0.02 % nebulizer solution 08-17 00:00: 00 Yes [id number] .5mg Inhale 2.5 mL every 8 (eight) hours as needed for Wheezing or Shortness of Breath. [facility] fluticasone propionate 110 mcg/actuati on inhaler 08-17 00:00: 00 Yes [id number] 1{puff} Inhale 1 Puff every 12 (twelve) hours. [facility] carBAMazepi ne 400 mg 12 hr tablet 08-17 00:00: 00 Yes [id number] 400mg Take 1 tablet by mouth 2 (two) times daily. [facility] triamcinolo ne acetonide 0.1 % cream 08-17 00:00: 00 Yes [id number] Apply to area(s) 2 (two) times daily. [facility] tretinoin 0.075 % Crea 08-17 00:00: 00 Yes [id number] 1g Apply 1 g to area(s) at bedtime. [facility] doxepin 50 mg capsule 08-17 00:00: 00 Yes [id number] 50mg Take 1 capsule by mouth at bedtime. [facility] ipratropium 0.02 % nebulizer solution 08-17 00:00: 00 Yes [id number] .5mg Inhale 2.5 mL every 8 (eight) hours as needed for Wheezing or Shortness of Breath. [facility] fluticasone propionate 110 mcg/actuati on inhaler 08-17 00:00: 00 Yes [id number] 1{puff} Inhale 1 Puff every 12 (twelve) hours. [facility] carBAMazepi ne 400 mg 12 hr tablet 08-17 00:00: 00 Yes [id number] 400mg Take 1 tablet by mouth 2 (two) times daily. [facility] triamcinolo ne acetonide 0.1 % cream 08-17 00:00: 00 Yes [id number] Apply to area(s) 2 (two) times daily. [facility] tretinoin 0.075 % Crea 08-17 00:00: 00 Yes [id number] 1g Apply 1 g to area(s) at bedtime. [facility] doxepin 50 mg capsule 08-17 00:00: 00 Yes [id number] 50mg Take 1 capsule by mouth at bedtime. [facility] ipratropium 0.02 % nebulizer solution 08-17 00:00: 00 Yes [id number] .5mg Inhale 2.5 mL every 8 (eight) hours as needed for Wheezing or Shortness of Breath. [facility] fluticasone propionate 110 mcg/actuati on inhaler 08-17 00:00: 00 Yes [id number] 1{puff} Inhale 1 Puff every 12 (twelve) hours. [facility] carBAMazepi ne 400 mg 12 hr tablet 08-17 00:00: 00 Yes [id number] 400mg Take 1 tablet by mouth 2 (two) times daily. [facility] triamcinolo ne acetonide 0.1 % cream 08-17 00:00: 00 Yes [id number] Apply to area(s) 2 (two) times daily. [facility] tretinoin 0.075 % Crea 08-17 00:00: 00 Yes [id number] 1g Apply 1 g to area(s) at bedtime. [facility] doxepin 50 mg capsule 08-17 00:00: 00 Yes [id number] 50mg Take 1 capsule by mouth at bedtime. [facility] ipratropium 0.02 % nebulizer solution 08-17 00:00: 00 Yes [id number] .5mg Inhale 2.5 mL every 8 (eight) hours as needed for Wheezing or Shortness of Breath. [facility] fluticasone propionate 110 mcg/actuati on inhaler 08-17 00:00: 00 Yes [id number] 1{puff} Inhale 1 Puff every 12 (twelve) hours. [facility] carBAMazepi ne 400 mg 12 hr tablet 08-17 00:00: 00 Yes [id number] 400mg Take 1 tablet by mouth 2 (two) times daily. [facility] triamcinolo ne acetonide 0.1 % cream 08-17 00:00: 00 Yes [id number] Apply to area(s) 2 (two) times daily. [facility] tretinoin 0.075 % Crea 08-17 00:00: 00 Yes [id number] 1g Apply 1 g to area(s) at bedtime. [facility] doxepin 50 mg capsule 08-17 00:00: 00 Yes [id number] 50mg Take 1 capsule by mouth at bedtime. [facility] ipratropium 0.02 % nebulizer solution 08-17 00:00: 00 Yes [id number] .5mg Inhale 2.5 mL every 8 (eight) hours as needed for Wheezing or Shortness of Breath. [facility] fluticasone propionate 110 mcg/actuati on inhaler 08-17 00:00: 00 Yes [id number] 1{puff} Inhale 1 Puff every 12 (twelve) hours. [facility] carBAMazepi ne 400 mg 12 hr tablet 08-17 00:00: 00 Yes [id number] 400mg Take 1 tablet by mouth 2 (two) times daily. [facility] triamcinolo ne acetonide 0.1 % cream 08-17 00:00: 00 Yes [id number] Apply to area(s) 2 (two) times daily. [facility] tretinoin 0.075 % Crea 08-17 00:00: 00 Yes [id number] 1g Apply 1 g to area(s) at bedtime. [facility] doxepin 50 mg capsule 08-17 00:00: 00 Yes [id number] 50mg Take 1 capsule by mouth at bedtime. [facility] ipratropium 0.02 % nebulizer solution 08-17 00:00: 00 Yes [id number] .5mg Inhale 2.5 mL every 8 (eight) hours as needed for Wheezing or Shortness of Breath. [facility] fluticasone propionate 110 mcg/actuati on inhaler 08-17 00:00: 00 Yes [id number] 1{puff} Inhale 1 Puff every 12 (twelve) hours. [facility] carBAMazepi ne 400 mg 12 hr tablet 08-17 00:00: 00 Yes [id number] 400mg Take 1 tablet by mouth 2 (two) times daily. [facility] triamcinolo ne acetonide 0.1 % cream 08-17 00:00: 00 Yes [id number] Apply to area(s) 2 (two) times daily. [facility] tretinoin 0.075 % Crea 08-17 00:00: 00 Yes [id number] 1g Apply 1 g to area(s) at bedtime. [facility] doxepin 50 mg capsule 08-17 00:00: 00 Yes [id number] 50mg Take 1 capsule by mouth at bedtime. [facility] ipratropium 0.02 % nebulizer solution 08-17 00:00: 00 Yes [id number] .5mg Inhale 2.5 mL every 8 (eight) hours as needed for Wheezing or Shortness of Breath. [facility] fluticasone propionate 110 mcg/actuati on inhaler 08-17 00:00: 00 Yes [id number] 1{puff} Inhale 1 Puff every 12 (twelve) hours. [facility] carBAMazepi ne 400 mg 12 hr tablet 08-17 00:00: 00 Yes [id number] 400mg Take 1 tablet by mouth 2 (two) times daily. [facility] triamcinolo ne acetonide 0.1 % cream 08-17 00:00: 00 Yes [id number] Apply to area(s) 2 (two) times daily. [facility] tretinoin 0.075 % Crea 08-17 00:00: 00 Yes [id number] 1g Apply 1 g to area(s) at bedtime. [facility] doxepin 50 mg capsule 08-17 00:00: 00 Yes [id number] 50mg Take 1 capsule by mouth at bedtime. [facility] ipratropium 0.02 % nebulizer solution 08-17 00:00: 00 Yes [id number] .5mg Inhale 2.5 mL every 8 (eight) hours as needed for Wheezing or Shortness of Breath. [facility] fluticasone propionate 110 mcg/actuati on inhaler 08-17 00:00: 00 Yes [id number] 1{puff} Inhale 1 Puff every 12 (twelve) hours. [facility] carBAMazepi ne 400 mg 12 hr tablet 08-17 00:00: 00 Yes [id number] 400mg Take 1 tablet by mouth 2 (two) times daily. [facility] triamcinolo ne acetonide 0.1 % cream 08-17 00:00: 00 Yes [id number] Apply to area(s) 2 (two) times daily. [facility] tretinoin 0.075 % Crea 08-17 00:00: 00 Yes [id number] 1g Apply 1 g to area(s) at bedtime. [facility] doxepin 50 mg capsule 08-17 00:00: 00 Yes [id number] 50mg Take 1 capsule by mouth at bedtime. [facility] ipratropium 0.02 % nebulizer solution 08-17 00:00: 00 Yes [id number] .5mg Inhale 2.5 mL every 8 (eight) hours as needed for Wheezing or Shortness of Breath. [facility] fluticasone propionate 110 mcg/actuati on inhaler 08-17 00:00: 00 Yes [id number] 1{puff} Inhale 1 Puff every 12 (twelve) hours. [facility] carBAMazepi ne 400 mg 12 hr tablet 08-17 00:00: 00 Yes [id number] 400mg Take 1 tablet by mouth 2 (two) times daily. [facility] triamcinolo fl acetonide 0.1 % cream 08-17 00:00: 00 Yes [id number] Apply to area(s) 2 (two) times daily. [facility] tretinoin 0.075 % Crea 08-17 00:00: 00 Yes [id number] 1g Apply 1 g to area(s) at bedtime. [facility] doxepin 50 mg capsule 08-17 00:00: 00 Yes [id number] 50mg Take 1 capsule by mouth at bedtime. [facility] ipratropium 0.02 % nebulizer solution 08-17 00:00: 00 Yes [id number] .5mg Inhale 2.5 mL every 8 (eight) hours as needed for Wheezing or Shortness of Breath. [facility] fluticasone propionate 110 mcg/actuati on inhaler 08-17 00:00: 00 Yes [id number] 1{puff} Inhale 1 Puff every 12 (twelve) hours. [facility] carBAMazepi ne 400 mg 12 hr tablet 08-17 00:00: 00 Yes [id number] 400mg Take 1 tablet by mouth 2 (two) times daily. [facility] triamcinolo ne acetonide 0.1 % cream 08-17 00:00: 00 Yes [id number] Apply to area(s) 2 (two) times daily. [facility] tretinoin 0.075 % Crea 08-17 00:00: 00 Yes [id number] 1g Apply 1 g to area(s) at bedtime. [facility] doxepin 50 mg capsule 08-17 00:00: 00 Yes [id number] 50mg Take 1 capsule by mouth at bedtime. [facility] ipratropium 0.02 % nebulizer solution 08-17 00:00: 00 Yes [id number] .5mg Inhale 2.5 mL every 8 (eight) hours as needed for Wheezing or Shortness of Breath. [facility] fluticasone propionate 110 mcg/actuati on inhaler 08-17 00:00: 00 Yes [id number] 1{puff} Inhale 1 Puff every 12 (twelve) hours. [facility] carBAMazepi ne 400 mg 12 hr tablet 08-17 00:00: 00 Yes [id number] 400mg Take 1 tablet by mouth 2 (two) times daily. [facility] triamcinolo ne acetonide 0.1 % cream 08-17 00:00: 00 Yes [id number] Apply to area(s) 2 (two) times daily. [facility] tretinoin 0.075 % Crea 08-17 00:00: 00 Yes [id number] 1g Apply 1 g to area(s) at bedtime. [facility] doxepin 50 mg capsule 08-17 00:00: 00 Yes [id number] 50mg Take 1 capsule by mouth at bedtime. [facility] ipratropium 0.02 % nebulizer solution 08-17 00:00: 00 Yes [id number] .5mg Inhale 2.5 mL every 8 (eight) hours as needed for Wheezing or Shortness of Breath. [facility] fluticasone propionate 110 mcg/actuati on inhaler 08-17 00:00: 00 Yes [id number] 1{puff} Inhale 1 Puff every 12 (twelve) hours. [facility] carBAMazepi ne 400 mg 12 hr tablet 08-17 00:00: 00 Yes [id number] 400mg Take 1 tablet by mouth 2 (two) times daily. [facility] triamcinolo ne acetonide 0.1 % cream 08-17 00:00: 00 Yes [id number] Apply to area(s) 2 (two) times daily. [facility] tretinoin 0.075 % Crea 08-17 00:00: 00 Yes [id number] 1g Apply 1 g to area(s) at bedtime. [facility] doxepin 50 mg capsule 08-17 00:00: 00 Yes [id number] 50mg Take 1 capsule by mouth at bedtime. [facility] ipratropium 0.02 % nebulizer solution 08-17 00:00: 00 Yes [id number] .5mg Inhale 2.5 mL every 8 (eight) hours as needed for Wheezing or Shortness of Breath. [facility] fluticasone propionate 110 mcg/actuati on inhaler 08-17 00:00: 00 Yes [id number] 1{puff} Inhale 1 Puff every 12 (twelve) hours. [facility] carBAMazepi ne 400 mg 12 hr tablet 08-17 00:00: 00 Yes [id number] 400mg Take 1 tablet by mouth 2 (two) times daily. [facility] triamcinolo ne acetonide 0.1 % cream 08-17 00:00: 00 Yes [id number] Apply to area(s) 2 (two) times daily. [facility] tretinoin 0.075 % Crea 08-17 00:00: 00 Yes [id number] 1g Apply 1 g to area(s) at bedtime. [facility] doxepin 50 mg capsule 08-17 00:00: 00 Yes [id number] 50mg Take 1 capsule by mouth at bedtime. [facility] ipratropium 0.02 % nebulizer solution 08-17 00:00: 00 Yes [id number] .5mg Inhale 2.5 mL every 8 (eight) hours as needed for Wheezing or Shortness of Breath. [facility] fluticasone propionate 110 mcg/actuati on inhaler 08-17 00:00: 00 Yes [id number] 1{puff} Inhale 1 Puff every 12 (twelve) hours. [facility] carBAMazepi ne 400 mg 12 hr tablet 08-17 00:00: 00 Yes [id number] 400mg Take 1 tablet by mouth 2 (two) times daily. [facility] triamcinolo ne acetonide 0.1 % cream 08-17 00:00: 00 Yes [id number] Apply to area(s) 2 (two) times daily. [facility] tretinoin 0.075 % Crea 08-17 00:00: 00 Yes [id number] 1g Apply 1 g to area(s) at bedtime. [facility] doxepin 50 mg capsule 08-17 00:00: 00 Yes [id number] 50mg Take 1 capsule by mouth at bedtime. [facility] ipratropium 0.02 % nebulizer solution 08-17 00:00: 00 Yes [id number] .5mg Inhale 2.5 mL every 8 (eight) hours as needed for Wheezing or Shortness of Breath. [facility] fluticasone propionate 110 mcg/actuati on inhaler 08-17 00:00: 00 Yes [id number] 1{puff} Inhale 1 Puff every 12 (twelve) hours. [facility] carBAMazepi ne 400 mg 12 hr tablet 08-17 00:00: 00 Yes [id number] 400mg Take 1 tablet by mouth 2 (two) times daily. [facility] triamcinolo ne acetonide 0.1 % cream 08-17 00:00: 00 Yes [id number] Apply to area(s) 2 (two) times daily. [facility] tretinoin 0.075 % Crea 08-17 00:00: 00 Yes [id number] 1g Apply 1 g to area(s) at bedtime. [facility] doxepin 50 mg capsule 08-17 00:00: 00 Yes [id number] 50mg Take 1 capsule by mouth at bedtime. [facility] ipratropium 0.02 % nebulizer solution 08-17 00:00: 00 Yes [id number] .5mg Inhale 2.5 mL every 8 (eight) hours as needed for Wheezing or Shortness of Breath. [facility] fluticasone propionate 110 mcg/actuati on inhaler 08-17 00:00: 00 Yes [id number] 1{puff} Inhale 1 Puff every 12 (twelve) hours. [facility] carBAMazepi ne 400 mg 12 hr tablet 08-17 00:00: 00 Yes [id number] 400mg Take 1 tablet by mouth 2 (two) times daily. [facility] triamcinolo ne acetonide 0.1 % cream 08-17 00:00: 00 Yes [id number] Apply to area(s) 2 (two) times daily. [facility] tretinoin 0.075 % Crea 08-17 00:00: 00 Yes [id number] 1g Apply 1 g to area(s) at bedtime. [facility] doxepin 50 mg capsule 08-17 00:00: 00 Yes [id number] 50mg Take 1 capsule by mouth at bedtime. [facility] ipratropium 0.02 % nebulizer solution 08-17 00:00: 00 Yes [id number] .5mg Inhale 2.5 mL every 8 (eight) hours as needed for Wheezing or Shortness of Breath. [facility] fluticasone propionate 110 mcg/actuati on inhaler 08-17 00:00: 00 Yes [id number] 1{puff} Inhale 1 Puff every 12 (twelve) hours. [facility] carBAMazepi ne 400 mg 12 hr tablet 08-17 00:00: 00 Yes [id number] 400mg Take 1 tablet by mouth 2 (two) times daily. [facility] triamcinolo ne acetonide 0.1 % cream 08-17 00:00: 00 Yes [id number] Apply to area(s) 2 (two) times daily. [facility] tretinoin 0.075 % Crea 08-17 00:00: 00 Yes [id number] 1g Apply 1 g to area(s) at bedtime. [facility] doxepin 50 mg capsule 08-17 00:00: 00 Yes [id number] 50mg Take 1 capsule by mouth at bedtime. [facility] ipratropium 0.02 % nebulizer solution 08-17 00:00: 00 Yes [id number] .5mg Inhale 2.5 mL every 8 (eight) hours as needed for Wheezing or Shortness of Breath. [facility] fluticasone propionate 110 mcg/actuati on inhaler 08-17 00:00: 00 Yes [id number] 1{puff} Inhale 1 Puff every 12 (twelve) hours. [facility] carBAMazepi ne 400 mg 12 hr tablet 08-17 00:00: 00 Yes [id number] 400mg Take 1 tablet by mouth 2 (two) times daily. [facility] triamcinolo ne acetonide 0.1 % cream 08-17 00:00: 00 Yes [id number] Apply to area(s) 2 (two) times daily. [facility] tretinoin 0.075 % Crea 08-17 00:00: 00 Yes [id number] 1g Apply 1 g to area(s) at bedtime. [facility] doxepin 50 mg capsule 08-17 00:00: 00 Yes [id number] 50mg Take 1 capsule by mouth at bedtime. [facility] ipratropium 0.02 % nebulizer solution 08-17 00:00: 00 Yes [id number] .5mg Inhale 2.5 mL every 8 (eight) hours as needed for Wheezing or Shortness of Breath. [facility] fluticasone propionate 110 mcg/actuati on inhaler 08-17 00:00: 00 Yes [id number] 1{puff} Inhale 1 Puff every 12 (twelve) hours. [facility] carBAMazepi ne 400 mg 12 hr tablet 08-17 00:00: 00 Yes [id number] 400mg Take 1 tablet by mouth 2 (two) times daily. [facility] triamcinolo ne acetonide 0.1 % cream 08-17 00:00: 00 Yes [id number] Apply to area(s) 2 (two) times daily. [facility] tretinoin 0.075 % Crea 08-17 00:00: 00 Yes [id number] 1g Apply 1 g to area(s) at bedtime. [facility] doxepin 50 mg capsule 08-17 00:00: 00 Yes [id number] 50mg Take 1 capsule by mouth at bedtime. [facility] ipratropium 0.02 % nebulizer solution 08-17 00:00: 00 Yes [id number] .5mg Inhale 2.5 mL every 8 (eight) hours as needed for Wheezing or Shortness of Breath. [facility] fluticasone propionate 110 mcg/actuati on inhaler 08-17 00:00: 00 Yes [id number] 1{puff} Inhale 1 Puff every 12 (twelve) hours. [facility] carBAMazepi ne 400 mg 12 hr tablet 08-17 00:00: 00 Yes [id number] 400mg Take 1 tablet by mouth 2 (two) times daily. [facility] triamcinolo ne acetonide 0.1 % cream 08-17 00:00: 00 Yes [id number] Apply to area(s) 2 (two) times daily. [facility] tretinoin 0.075 % Crea 08-17 00:00: 00 Yes [id number] 1g Apply 1 g to area(s) at bedtime. [facility] doxepin 50 mg capsule 08-17 00:00: 00 Yes [id number] 50mg Take 1 capsule by mouth at bedtime. [facility] ipratropium 0.02 % nebulizer solution 08-17 00:00: 00 Yes [id number] .5mg Inhale 2.5 mL every 8 (eight) hours as needed for Wheezing or Shortness of Breath. [facility] fluticasone propionate 110 mcg/actuati on inhaler 08-17 00:00: 00 Yes [id number] 1{puff} Inhale 1 Puff every 12 (twelve) hours. [facility] carBAMazepi ne 400 mg 12 hr tablet 08-17 00:00: 00 Yes [id number] 400mg Take 1 tablet by mouth 2 (two) times daily. [facility] triamcinolo ne acetonide 0.1 % cream 08-17 00:00: 00 Yes [id number] Apply to area(s) 2 (two) times daily. [facility] tretinoin 0.075 % Crea 08-17 00:00: 00 Yes [id number] 1g Apply 1 g to area(s) at bedtime. [facility] doxepin 50 mg capsule 08-17 00:00: 00 Yes [id number] 50mg Take 1 capsule by mouth at bedtime. [facility] ipratropium 0.02 % nebulizer solution 08-17 00:00: 00 Yes [id number] .5mg Inhale 2.5 mL every 8 (eight) hours as needed for Wheezing or Shortness of Breath. [facility] fluticasone propionate 110 mcg/actuati on inhaler 08-17 00:00: 00 Yes [id number] 1{puff} Inhale 1 Puff every 12 (twelve) hours. [facility] carBAMazepi ne 400 mg 12 hr tablet 08-17 00:00: 00 Yes [id number] 400mg Take 1 tablet by mouth 2 (two) times daily. [facility] triamcinolo ne acetonide 0.1 % cream 08-17 00:00: 00 Yes [id number] Apply to area(s) 2 (two) times daily. [facility] tretinoin 0.075 % Crea 08-17 00:00: 00 Yes [id number] 1g Apply 1 g to area(s) at bedtime. [facility] doxepin 50 mg capsule 08-17 00:00: 00 Yes [id number] 50mg Take 1 capsule by mouth at bedtime. [facility] ipratropium 0.02 % nebulizer solution 08-17 00:00: 00 Yes [id number] .5mg Inhale 2.5 mL every 8 (eight) hours as needed for Wheezing or Shortness of Breath. [facility] fluticasone propionate 110 mcg/actuati on inhaler 08-17 00:00: 00 Yes [id number] 1{puff} Inhale 1 Puff every 12 (twelve) hours. [facility] carBAMazepi ne 400 mg 12 hr tablet 08-17 00:00: 00 Yes [id number] 400mg Take 1 tablet by mouth 2 (two) times daily. [facility] triamcinolo ne acetonide 0.1 % cream 08-17 00:00: 00 Yes [id number] Apply to area(s) 2 (two) times daily. [facility] tretinoin 0.075 % Crea 08-17 00:00: 00 Yes [id number] 1g Apply 1 g to area(s) at bedtime. [facility] doxepin 50 mg capsule 08-17 00:00: 00 Yes [id number] 50mg Take 1 capsule by mouth at bedtime. [facility] ipratropium 0.02 % nebulizer solution 08-17 00:00: 00 Yes [id number] .5mg Inhale 2.5 mL every 8 (eight) hours as needed for Wheezing or Shortness of Breath. [facility] fluticasone propionate 110 mcg/actuati on inhaler 08-17 00:00: 00 Yes [id number] 1{puff} Inhale 1 Puff every 12 (twelve) hours. [facility] carBAMazepi ne 400 mg 12 hr tablet 08-17 00:00: 00 Yes [id number] 400mg Take 1 tablet by mouth 2 (two) times daily. [facility] triamcinolo ne acetonide 0.1 % cream 08-17 00:00: 00 Yes [id number] Apply to area(s) 2 (two) times daily. [facility] tretinoin 0.075 % Crea 08-17 00:00: 00 Yes [id number] 1g Apply 1 g to area(s) at bedtime. [facility] doxepin 50 mg capsule 08-17 00:00: 00 Yes [id number] 50mg Take 1 capsule by mouth at bedtime. [facility] ipratropium 0.02 % nebulizer solution 08-17 00:00: 00 Yes [id number] .5mg Inhale 2.5 mL every 8 (eight) hours as needed for Wheezing or Shortness of Breath. [facility] fluticasone propionate 110 mcg/actuati on inhaler 08-17 00:00: 00 Yes [id number] 1{puff} Inhale 1 Puff every 12 (twelve) hours. [facility] carBAMazepi ne 400 mg 12 hr tablet 08-17 00:00: 00 Yes [id number] 400mg Take 1 tablet by mouth 2 (two) times daily. [facility] triamcinolo ne acetonide 0.1 % cream 08-17 00:00: 00 Yes [id number] Apply to area(s) 2 (two) times daily. [facility] tretinoin 0.075 % Crea 08-17 00:00: 00 Yes [id number] 1g Apply 1 g to area(s) at bedtime. [facility] doxepin 50 mg capsule 08-17 00:00: 00 Yes [id number] 50mg Take 1 capsule by mouth at bedtime. [facility] ipratropium 0.02 % nebulizer solution 08-17 00:00: 00 Yes [id number] .5mg Inhale 2.5 mL every 8 (eight) hours as needed for Wheezing or Shortness of Breath. [facility] fluticasone propionate 110 mcg/actuati on inhaler 08-17 00:00: 00 Yes [id number] 1{puff} Inhale 1 Puff every 12 (twelve) hours. [facility] carBAMazepi ne 400 mg 12 hr tablet 08-17 00:00: 00 Yes [id number] 400mg Take 1 tablet by mouth 2 (two) times daily. [facility] triamcinolo ne acetonide 0.1 % cream 08-17 00:00: 00 Yes [id number] Apply to area(s) 2 (two) times daily. [facility] tretinoin 0.075 % Crea 08-17 00:00: 00 Yes [id number] 1g Apply 1 g to area(s) at bedtime. [facility] doxepin 50 mg capsule 08-17 00:00: 00 Yes [id number] 50mg Take 1 capsule by mouth at bedtime. [facility] ipratropium 0.02 % nebulizer solution 08-17 00:00: 00 Yes [id number] .5mg Inhale 2.5 mL every 8 (eight) hours as needed for Wheezing or Shortness of Breath. [facility] fluticasone propionate 110 mcg/actuati on inhaler 08-17 00:00: 00 Yes [id number] 1{puff} Inhale 1 Puff every 12 (twelve) hours. [facility] carBAMazepi ne 400 mg 12 hr tablet 08-17 00:00: 00 Yes [id number] 400mg Take 1 tablet by mouth 2 (two) times daily. [facility] triamcinolo ne acetonide 0.1 % cream 08-17 00:00: 00 Yes [id number] Apply to area(s) 2 (two) times daily. [facility] tretinoin 0.075 % Crea 08-17 00:00: 00 Yes [id number] 1g Apply 1 g to area(s) at bedtime. [facility] doxepin 50 mg capsule 08-17 00:00: 00 Yes [id number] 50mg Take 1 capsule by mouth at bedtime. [facility] ipratropium 0.02 % nebulizer solution 08-17 00:00: 00 Yes [id number] .5mg Inhale 2.5 mL every 8 (eight) hours as needed for Wheezing or Shortness of Breath. [facility] fluticasone propionate 110 mcg/actuati on inhaler 08-17 00:00: 00 Yes [id number] 1{puff} Inhale 1 Puff every 12 (twelve) hours. [facility] carBAMazepi ne 400 mg 12 hr tablet 08-17 00:00: 00 Yes [id number] 400mg Take 1 tablet by mouth 2 (two) times daily. [facility] triamcinolo ne acetonide 0.1 % cream 08-17 00:00: 00 Yes [id number] Apply to area(s) 2 (two) times daily. [facility] tretinoin 0.075 % Crea 08-17 00:00: 00 Yes [id number] 1g Apply 1 g to area(s) at bedtime. [facility] doxepin 50 mg capsule 08-17 00:00: 00 Yes [id number] 50mg Take 1 capsule by mouth at bedtime. [facility] ipratropium 0.02 % nebulizer solution 08-17 00:00: 00 Yes [id number] .5mg Inhale 2.5 mL every 8 (eight) hours as needed for Wheezing or Shortness of Breath. [facility] fluticasone propionate 110 mcg/actuati on inhaler 08-17 00:00: 00 Yes [id number] 1{puff} Inhale 1 Puff every 12 (twelve) hours. [facility] carBAMazepi ne 400 mg 12 hr tablet 08-17 00:00: 00 Yes [id number] 400mg Take 1 tablet by mouth 2 (two) times daily. [facility] triamcinolo ne acetonide 0.1 % cream 08-17 00:00: 00 Yes [id number] Apply to area(s) 2 (two) times daily. [facility] tretinoin 0.075 % Crea 08-17 00:00: 00 Yes [id number] 1g Apply 1 g to area(s) at bedtime. [facility] doxepin 50 mg capsule 08-17 00:00: 00 Yes [id number] 50mg Take 1 capsule by mouth at bedtime. [facility] ipratropium 0.02 % nebulizer solution 08-17 00:00: 00 Yes [id number] .5mg Inhale 2.5 mL every 8 (eight) hours as needed for Wheezing or Shortness of Breath. [facility] fluticasone propionate 110 mcg/actuati on inhaler 08-17 00:00: 00 Yes [id number] 1{puff} Inhale 1 Puff every 12 (twelve) hours. [facility] carBAMazepi ne 400 mg 12 hr tablet 08-17 00:00: 00 Yes [id number] 400mg Take 1 tablet by mouth 2 (two) times daily. [facility] triamcinolo ne acetonide 0.1 % cream 08-17 00:00: 00 Yes [id number] Apply to area(s) 2 (two) times daily. [facility] tretinoin 0.075 % Crea 08-17 00:00: 00 Yes [id number] 1g Apply 1 g to area(s) at bedtime. [facility] doxepin 50 mg capsule 08-17 00:00: 00 Yes [id number] 50mg Take 1 capsule by mouth at bedtime. [facility] ipratropium 0.02 % nebulizer solution 08-17 00:00: 00 Yes [id number] .5mg Inhale 2.5 mL every 8 (eight) hours as needed for Wheezing or Shortness of Breath. [facility] fluticasone propionate 110 mcg/actuati on inhaler 08-17 00:00: 00 Yes [id number] 1{puff} Inhale 1 Puff every 12 (twelve) hours. [facility] carBAMazepi ne 400 mg 12 hr tablet 08-17 00:00: 00 Yes [id number] 400mg Take 1 tablet by mouth 2 (two) times daily. [facility] triamcinolo ne acetonide 0.1 % cream 08-17 00:00: 00 Yes [id number] Apply to area(s) 2 (two) times daily. [facility] tretinoin 0.075 % Crea 08-17 00:00: 00 Yes [id number] 1g Apply 1 g to area(s) at bedtime. [facility] doxepin 50 mg capsule 08-17 00:00: 00 Yes [id number] 50mg Take 1 capsule by mouth at bedtime. [facility] ipratropium 0.02 % nebulizer solution 08-17 00:00: 00 Yes [id number] .5mg Inhale 2.5 mL every 8 (eight) hours as needed for Wheezing or Shortness of Breath. [facility] fluticasone propionate 110 mcg/actuati on inhaler 08-17 00:00: 00 Yes [id number] 1{puff} Inhale 1 Puff every 12 (twelve) hours. [facility] carBAMazepi ne 400 mg 12 hr tablet 08-17 00:00: 00 Yes [id number] 400mg Take 1 tablet by mouth 2 (two) times daily. [facility] triamcinolo ne acetonide 0.1 % cream 08-17 00:00: 00 Yes [id number] Apply to area(s) 2 (two) times daily. [facility] tretinoin 0.075 % Crea 08-17 00:00: 00 Yes [id number] 1g Apply 1 g to area(s) at bedtime. [facility] doxepin 50 mg capsule 08-17 00:00: 00 Yes [id number] 50mg Take 1 capsule by mouth at bedtime. [facility] ipratropium 0.02 % nebulizer solution 08-17 00:00: 00 Yes [id number] .5mg Inhale 2.5 mL every 8 (eight) hours as needed for Wheezing or Shortness of Breath. [facility] fluticasone propionate 110 mcg/actuati on inhaler 08-17 00:00: 00 Yes [id number] 1{puff} Inhale 1 Puff every 12 (twelve) hours. [facility] carBAMazepi ne 400 mg 12 hr tablet 08-17 00:00: 00 Yes [id number] 400mg Take 1 tablet by mouth 2 (two) times daily. [facility] triamcinolo ne acetonide 0.1 % cream 08-17 00:00: 00 Yes [id number] Apply to area(s) 2 (two) times daily. [facility] tretinoin 0.075 % Crea 08-17 00:00: 00 Yes [id number] 1g Apply 1 g to area(s) at bedtime. [facility] doxepin 50 mg capsule 08-17 00:00: 00 Yes [id number] 50mg Take 1 capsule by mouth at bedtime. [facility] ipratropium 0.02 % nebulizer solution 08-17 00:00: 00 Yes [id number] .5mg Inhale 2.5 mL every 8 (eight) hours as needed for Wheezing or Shortness of Breath. [facility] triamcinolo ne acetonide 0.1 % cream 2020-0 08 00:00: 00 Yes [id number] Apply to area(s) 2 (two) times daily. [facility] tretinoin 0.075 % Crea 0 08 00:00: 00 Yes [id number] 1g Apply 1 g to area(s) at bedtime. [facility] triamcinolo ne acetonide 0.1 % cream 0 08 00:00: 00 Yes [id number] Apply to area(s) 2 (two) times daily. [facility] tretinoin 0.075 % Crea 0 08-17 00:00: 00 Yes [id number] 1g Apply 1 g to area(s) at bedtime. [facility] triamcinolo ne acetonide 0.1 % cream 0 08-17 00:00: 00 Yes [id number] Apply to area(s) 2 (two) times daily. [facility] tretinoin 0.075 % Crea 0 08-17 00:00: 00 Yes [id number] 1g Apply 1 g to area(s) at bedtime. [facility] triamcinolo ne acetonide 0.1 % cream 0 08-17 00:00: 00 Yes [id number] Apply to area(s) 2 (two) times daily. [facility] tretinoin 0.075 % Crea 0 08 00:00: 00 Yes [id number] 1g Apply 1 g to area(s) at bedtime. [facility] triamcinolo ne acetonide 0.1 % cream 0 08-17 00:00: 00 Yes [id number] Apply to area(s) 2 (two) times daily. [facility] tretinoin 0.075 % Crea 2020-0 08 00:00: 00 Yes [id number] 1g Apply 1 g to area(s) at bedtime. [facility] triamcinolo ne acetonide 0.1 % cream 0 08 00:00: 00 Yes [id number] Apply to area(s) 2 (two) times daily. [facility] tretinoin 0.075 % Crea 0 08-17 00:00: 00 Yes [id number] 1g Apply 1 g to area(s) at bedtime. [facility] triamcinolo ne acetonide 0.1 % cream 0 08-17 00:00: 00 Yes [id number] Apply to area(s) 2 (two) times daily. [facility] tretinoin 0.075 % Crea 0 08-17 00:00: 00 Yes [id number] 1g Apply 1 g to area(s) at bedtime. [facility] triamcinolo ne acetonide 0.1 % cream 0 08-17 00:00: 00 Yes [id number] Apply to area(s) 2 (two) times daily. [facility] tretinoin 0.075 % Crea 0 08-17 00:00: 00 Yes [id number] 1g Apply 1 g to area(s) at bedtime. [facility] triamcinolo ne acetonide 0.1 % cream 0 08-17 00:00: 00 Yes [id number] Apply to area(s) 2 (two) times daily. [facility] tretinoin 0.075 % Crea 0 08-17 00:00: 00 Yes [id number] 1g Apply 1 g to area(s) at bedtime. [facility] triamcinolo ne acetonide 0.1 % cream 2020-0 08-17 00:00: 00 Yes [id number] Apply to area(s) 2 (two) times daily. [facility] triamcinolo ne acetonide 0.1 % cream 0 08-17 00:00: 00 Yes [id number] Apply to area(s) 2 (two) times daily. [facility] triamcinolo ne acetonide 0.1 % cream 2020-0 08-17 00:00: 00 Yes [id number] Apply to area(s) 2 (two) times daily. [facility] 0.1 % cream 1-0 1-08 00:00: 00 Yes [id number] Apply to area(s) 2 (two) times daily. [facility] triamcinolo ne acetonide 0.1 % cream 2020-0 1-08 00:00: 00 Yes [id number] Apply to area(s) 2 (two) times daily. [facility] triamcinolo ne acetonide 0.1 % cream 2020-0 1-08 00:00: 00 Yes [id number] Apply to area(s) 2 (two) times daily. [facility] triamcinolo ne acetonide 0.1 % cream 2020-0 -08 00:00: 00 Yes [id number] Apply to area(s) 2 (two) times daily. [facility] triamcinolo ne acetonide 0.1 % cream 2020-0 -08 00:00: 00 Yes [id number] Apply to area(s) 2 (two) times daily. [facility] triamcinolo ne acetonide 0.1 % cream 2020-0 1-08 00:00: 00 Yes [id number] Apply to area(s) 2 (two) times daily. [facility] triamcinolo ne acetonide 0.1 % cream 2020-0 1-08 00:00: 00 Yes [id number] Apply to area(s) 2 (two) times daily. [facility] triamcinolo ne acetonide 0.1 % cream 2020-0 1-08 00:00: 00 Yes [id number] Apply to area(s) 2 (two) times daily. [facility] triamcinolo ne acetonide 0.1 % cream 2020-0 1-08 00:00: 00 Yes [id number] Apply to area(s) 2 (two) times daily. [facility] triamcinolo ne acetonide 0.1 % cream 202-0 1-08 00:00: 00 Yes [id number] Apply to area(s) 2 (two) times daily. [facility] triamcinolo ne acetonide 0.1 % cream 2020-0 1-08 00:00: 00 Yes [id number] Apply to area(s) 2 (two) times daily. [facility] triamcinolo ne acetonide 0.1 % cream 2020-0 -08 00:00: 00 Yes [id number] Apply to area(s) 2 (two) times daily. [facility] triamcinolo ne acetonide 0.1 % cream 2020-0 -08 00:00: 00 Yes [id number] Apply to area(s) 2 (two) times daily. [facility] triamcinolo ne acetonide 0.1 % cream 2020-0 08 00:00: 00 Yes [id number] Apply to area(s) 2 (two) times daily. [facility] triamcinolo ne acetonide 0.1 % cream 2020-0 -08 00:00: 00 Yes [id number] Apply to area(s) 2 (two) times daily. [facility] triamcinolo ne acetonide 0.1 % cream 2020-0 08 00:00: 00 Yes [id number] Apply to area(s) 2 (two) times daily. [facility] triamcinolo ne acetonide 0.1 % cream 2020-0 08 00:00: 00 Yes [id number] Apply to area(s) 2 (two) times daily. [facility] triamcinolo ne acetonide 0.1 % cream 2020-0 -08 00:00: 00 Yes [id number] Apply to area(s) 2 (two) times daily. [facility] triamcinolo ne acetonide 0.1 % cream 2020-0 1-08 00:00: 00 Yes [id number] Apply to area(s) 2 (two) times daily. [facility] triamcinolo ne acetonide 0.1 % cream 2020-0 1-08 00:00: 00 Yes [id number] Apply to area(s) 2 (two) times daily. [facility] triamcinolo ne acetonide 0.1 % cream 2020-0 1-08 00:00: 00 Yes [id number] Apply to area(s) 2 (two) times daily. [facility] triamcinolo ne acetonide 0.1 % cream 2020-0 1-08 00:00: 00 Yes [id number] Apply to area(s) 2 (two) times daily. [facility] triamcinolo ne acetonide 0.1 % cream 2020-0 -08 00:00: 00 Yes [id number] Apply to area(s) 2 (two) times daily. [facility] triamcinolo ne acetonide 0.1 % cream 2020-0 -08 00:00: 00 Yes [id number] Apply to area(s) 2 (two) times daily. [facility] triamcinolo ne acetonide 0.1 % cream 2020-0 -08 00:00: 00 Yes [id number] Apply to area(s) 2 (two) times daily. [facility] triamcinolo ne acetonide 0.1 % cream 2020-0 -08 00:00: 00 Yes [id number] Apply to area(s) 2 (two) times daily. [facility] [facility] tri[facility] acetonide 0.1 % cream 2020-0 08 00:00: 00 Yes [id number] Apply to area(s) 2 (two) times daily. [facility] triamcinolo ne acetonide 0.1 % cream 2020-0 -08 00:00: 00 Yes [id number] Apply to area(s) 2 (two) times daily. [facility] triamcinolo ne acetonide 0.1 % cream 2020-0 1-08 00:00: 00 Yes [id number] Apply to area(s) 2 (two) times daily. [facility] triamcinolo ne acetonide 0.1 % cream 2020-0 1-08 00:00: 00 Yes [id number] Apply to area(s) 2 (two) times daily. [facility] triamcinolo ne acetonide 0.1 % cream 2020-0 1-08 00:00: 00 Yes [id number] Apply to area(s) 2 (two) times daily. [facility] triamcinolo ne acetonide 0.1 % cream 0 -08 00:00: 00 Yes [id number] Apply to area(s) 2 (two) times daily. [facility] triamcinolo ne acetonide 0.1 % cream 2020-0 -08 00:00: 00 Yes [id number] Apply to area(s) 2 (two) times daily. [facility] triamcinolo ne acetonide 0.1 % cream 2020-0 08 00:00: 00 Yes [id number] Apply to area(s) 2 (two) times daily. [facility] triamcinolo ne acetonide 0.1 % cream 2020-0 08-17 00:00: 00 Yes [id number] Apply to area(s) 2 (two) times daily. [facility] triamcinolo ne acetonide 0.1 % cream 2020-0 08-17 00:00: 00 Yes [id number] Apply to area(s) 2 (two) times daily. [facility] triamcinolo ne acetonide 0.1 % cream 0 08-17 00:00: 00 Yes [id number] Apply to area(s) 2 (two) times daily. [facility] triamcinolo ne acetonide 0.1 % cream 2020-0 08 00:00: 00 Yes [id number] Apply to area(s) 2 (two) times daily. [facility] triamcinolo ne acetonide 0.1 % cream 2020-0 08 00:00: 00 Yes [id number] Apply to area(s) 2 (two) times daily. [facility] triamcinolo ne acetonide 0.1 % cream 2020-0 -08 00:00: 00 Yes [id number] Apply to area(s) 2 (two) times daily. [facility] triamcinolo ne acetonide 0.1 % cream 2020-0 -08 00:00: 00 Yes [id number] Apply to area(s) 2 (two) times daily. [facility] triamcinolo ne acetonide 0.1 % cream 2020-0 1-08 00:00: 00 Yes [id number] Apply to area(s) 2 (two) times daily. [facility] triamcinolo ne acetonide 0.1 % cream 2020-0 -08 00:00: 00 Yes [id number] Apply to area(s) 2 (two) times daily. [facility] triamcinolo ne acetonide 0.1 % cream 2020-0 1-08 00:00: 00 Yes [id number] Apply to area(s) 2 (two) times daily. [facility] triamcinolo ne acetonide 0.1 % cream 2020-0 -08 00:00: 00 Yes [id number] Apply to area(s) 2 (two) times daily. [facility] triamcinolo ne acetonide 0.1 % cream 2020-0 -08 00:00: 00 Yes [id number] Apply to area(s) 2 (two) times daily. [facility] triamcinolo ne acetonide 0.1 % cream 2020-0 -08 00:00: 00 Yes [id number] Apply to area(s) 2 (two) times daily. [facility] triamcinolo ne acetonide 0.1 % cream 2020-0 -08 00:00: 00 Yes [id number] Apply to area(s) 2 (two) times daily. [facility] triamcinolo ne acetonide 0.1 % cream 2020-0 1-08 00:00: 00 Yes [id number] Apply to area(s) 2 (two) times daily. [facility] triamcinolo ne acetonide 0.1 % cream 2020-0 -08 00:00: 00 Yes [id number] Apply to area(s) 2 (two) times daily. [facility] triamcinolo ne acetonide 0.1 % cream 2020-0 1-08 00:00: 00 Yes [id number] Apply to area(s) 2 (two) times daily. [facility] 0.1 % cream 1-0 1-08 00:00: 00 Yes [id number] Apply to area(s) 2 (two) times daily. [facility] triamcinolo ne acetonide 0.1 % cream 2020-0 1-08 00:00: 00 Yes [id number] Apply to area(s) 2 (two) times daily. [facility] ne acetonide 0.1 % cream 2020-0 1-08 00:00: 00 Yes [id number] Apply to area(s) 2 (two) times daily. [facility] triamcinolo ne acetonide 0.1 % cream 2020-0 -08 00:00: 00 Yes [id number] Apply to area(s) 2 (two) times daily. [facility] triamcinolo ne acetonide 0.1 % cream 2020-0 -08 00:00: 00 Yes [id number] Apply to area(s) 2 (two) times daily. [facility] triamcinolo ne acetonide 0.1 % cream 2020-0 1-08 00:00: 00 Yes [id number] Apply to area(s) 2 (two) times daily. [facility] triamcinolo ne acetonide 0.1 % cream 2020-0 -08 00:00: 00 Yes [id number] Apply to area(s) 2 (two) times daily. [facility] triamcinolo ne acetonide 0.1 % cream 2020-0 1-08 00:00: 00 Yes [id number] Apply to area(s) 2 (two) times daily. [facility] triamcinolo ne acetonide 0.1 % cream 2020-0 1-08 00:00: 00 Yes [id number] Apply to area(s) 2 (two) times daily. [facility] triamcinolo ne acetonide 0.1 % cream 202-0 1-08 00:00: 00 Yes [id number] Apply to area(s) 2 (two) times daily. [facility] triamcinolo ne acetonide 0.1 % cream 2020-0 1-08 00:00: 00 Yes [id number] Apply to area(s) 2 (two) times daily. [facility]am[facility] ne acetonide 0.1 % cream 2020-0 -08 00:00: 00 Yes [id number] Apply to area(s) 2 (two) times daily. [facility] triamcinolo ne acetonide 0.1 % cream 2020-0 -08 00:00: 00 Yes [id number] Apply to area(s) 2 (two) times daily. [facility] triamcinolo ne acetonide 0.1 % cream 2020-0 -08 00:00: 00 Yes [id number] Apply to area(s) 2 (two) times daily. [facility] triamcinolo ne acetonide 0.1 % cream 2020-0 -08 00:00: 00 Yes [id number] Apply to area(s) 2 (two) times daily. [facility] triamcinolo ne acetonide 0.1 % cream 2020-0 -08 00:00: 00 Yes [id number] Apply to area(s) 2 (two) times daily. [facility] triamcinolo ne acetonide 0.1 % cream 2020-0 -08 00:00: 00 Yes [id number] Apply to area(s) 2 (two) times daily. [facility] triamcinolo ne acetonide 0.1 % cream 2020-0 -08 00:00: 00 Yes [id number] Apply to area(s) 2 (two) times daily. [facility] triamcinolo ne acetonide 0.1 % cream 2020-0 1-08 00:00: 00 Yes [id number] Apply to area(s) 2 (two) times daily. [facility] triamcinolo ne acetonide 0.1 % cream 2021-0 1-08 00:00: 00 Yes [id number] Apply to area(s) 2 (two) times daily. [facility] triamcinolo ne acetonide 0.1 % cream 2020-0 -08 00:00: 00 Yes [id number] Apply to area(s) 2 (two) times daily. [facility] triamcinolo ne acetonide 0.1 % cream 2020-0 -08 00:00: 00 Yes [id number] Apply to area(s) 2 (two) times daily. [facility] triamcinolo ne acetonide 0.1 % cream 2020-0 -08 00:00: 00 Yes [id number] Apply to area(s) 2 (two) times daily. [facility] triamcinolo ne acetonide 0.1 % cream 2020-0 -08 00:00: 00 Yes [id number] Apply to area(s) 2 (two) times daily. [facility] triamcinolo ne acetonide 0.1 % cream 2020-0 08 00:00: 00 Yes [id number] Apply to area(s) 2 (two) times daily. [facility] triamcinolo ne acetonide 0.1 % cream 2020-0 08 00:00: 00 Yes [id number] Apply to area(s) 2 (two) times daily. [facility] triamcinolo ne acetonide 0.1 % cream 2020-0 08 00:00: 00 Yes [id number] Apply to area(s) 2 (two) times daily. [facility] triamcinolo ne acetonide 0.1 % cream 2020-0 08 00:00: 00 Yes [id number] Apply to area(s) 2 (two) times daily. [facility] triamcinolo ne acetonide 0.1 % cream 2020-0 08 00:00: 00 Yes [id number] Apply to area(s) 2 (two) times daily. [facility] triamcinolo ne acetonide 0.1 % cream 2020-0 -08 00:00: 00 Yes [id number] Apply to area(s) 2 (two) times daily. [facility] triamcinolo ne acetonide 0.1 % cream 2021-0 1-08 00:00: 00 Yes [id number] Apply to area(s) 2 (two) times daily. [facility] triamcinolo ne acetonide 0.1 % cream 2020-0 1-08 00:00: 00 Yes [id number] Apply to area(s) 2 (two) times daily. [facility]amcinolo ne acetonide 0.1 % cream 2020-0 -08 00:00: 00 Yes [id number] Apply to area(s) 2 (two) times daily. [facility] triamcinolo ne acetonide 0.1 % cream 2020-0 -08 00:00: 00 Yes [id number] Apply to area(s) 2 (two) times daily. [facility] triamcinolo ne acetonide 0.1 % cream 2020-0 -08 00:00: 00 Yes [id number] Apply to area(s) 2 (two) times daily. [facility] triamcinolo ne acetonide 0.1 % cream 2020-0 08 00:00: 00 Yes [id number] Apply to area(s) 2 (two) times daily. [facility] triamcinolo ne acetonide 0.1 % cream 2020-0 08 00:00: 00 Yes [id number] Apply to area(s) 2 (two) times daily. [facility] triamcinolo ne acetonide 0.1 % cream 2020-0 -08 00:00: 00 Yes [id number] Apply to area(s) 2 (two) times daily. [facility] triamcinolo ne acetonide 0.1 % cream 2020-0 -08 00:00: 00 Yes [id number] Apply to area(s) 2 (two) times daily. [facility] triamcinolo ne acetonide 0.1 % cream 2020-0 -08 00:00: 00 Yes [id number] Apply to area(s) 2 (two) times daily. [facility] triamcinolo ne acetonide 0.1 % cream 2020-0 -08 00:00: 00 Yes [id number] Apply to area(s) 2 (two) times daily. [facility] triamcinolo ne acetonide 0.1 % cream 2020-0 1-08 00:00: 00 Yes [id number] Apply to area(s) 2 (two) times daily. [facility] triamcinolo ne acetonide 0.1 % cream 2020-0 -08 00:00: 00 Yes [id number] Apply to area(s) 2 (two) times daily. [facility] triamcinolo ne acetonide 0.1 % cream 2020-0 -08 00:00: 00 Yes [id number] Apply to area(s) 2 (two) times daily. [facility] triamcinolo ne acetonide 0.1 % cream 2020-0 -08 00:00: 00 Yes [id number] Apply to area(s) 2 (two) times daily. [facility] triamcinolo ne acetonide 0.1 % cream 2020-0 -08 00:00: 00 Yes [id number] Apply to area(s) 2 (two) times daily. [facility] triamcinolo ne acetonide 0.1 % cream 2020-0 08 00:00: 00 Yes [id number] Apply to area(s) 2 (two) times daily. [facility] triamcinolo ne acetonide 0.1 % cream 2020-0 -08 00:00: 00 Yes [id number] Apply to area(s) 2 (two) times daily. [facility] triamcinolo ne acetonide 0.1 % cream 2020-0 1-08 00:00: 00 Yes [id number] Apply to area(s) 2 (two) times daily. [facility] triamcinolo ne acetonide 0.1 % cream 2020-0 -08 00:00: 00 Yes [id number] Apply to area(s) 2 (two) times daily. [facility] triamcinolo ne acetonide 0.1 % cream 2020-0 1-08 00:00: 00 Yes [id number] Apply to area(s) 2 (two) times daily. [facility] triamcinolo ne acetonide 0.1 % cream 2020-0 1-08 00:00: 00 Yes [id number] Apply to area(s) 2 (two) times daily. [facility] triamcinolo ne acetonide 0.1 % cream 2020-0 1-08 00:00: 00 Yes [id number] Apply to area(s) 2 (two) times daily. [facility] triamcinolo ne acetonide 0.1 % cream 2020-0 1-08 00:00: 00 Yes [id number] Apply to area(s) 2 (two) times daily. [facility] triamcinolo ne acetonide 0.1 % cream 2020-0 -08 00:00: 00 Yes [id number] Apply to area(s) 2 (two) times daily. [facility] triamcinolo ne acetonide 0.1 % cream 2020-0 -08 00:00: 00 Yes [id number] Apply to area(s) 2 (two) times daily. [facility] triamcinolo ne acetonide 0.1 % cream 2020-0 -08 00:00: 00 Yes [id number] Apply to area(s) 2 (two) times daily. [facility] triamcinolo ne acetonide 0.1 % cream 2020-0 -08 00:00: 00 Yes [id number] Apply to area(s) 2 (two) times daily. [facility] triamcinolo ne acetonide 0.1 % cream 2020-0 1-08 00:00: 00 Yes [id number] Apply to area(s) 2 (two) times daily. [facility] triamcinolo ne acetonide 0.1 % cream 2020-0 1-08 00:00: 00 Yes [id number] Apply to area(s) 2 (two) times daily. [facility] triamcinolo ne acetonide 0.1 % cream 2020-0 1-08 00:00: 00 Yes [id number] Apply to area(s) 2 (two) times daily. [facility] triamcinolo ne acetonide 0.1 % cream 08-17 00:00: 00 Yes [id number] Apply to area(s) 2 (two) times daily. [facility] tretinoin 0.075 % Crea 08-17 00:00: 00 04-28 00:00 :00 No [id number] 1g Apply 1 g to area(s) at bedtime. [facility] tretinoin 0.075 % Crea 08-17 00:00: 00 04-28 00:00 :00 No [id number] 1g Apply 1 g to area(s) at bedtime. [facility] tretinoin 0.075 % Crea 08-17 00:00: 00 04-28 00:00 :00 No [id number] 1g Apply 1 g to area(s) at bedtime. [facility] fluticasone propionate 110 mcg/actuati on inhaler 08-17 00:00: 00 04-01 00:00 :00 No [id number] 1{puff} Inhale 1 Puff every 12 (twelve) hours. [facility] carBAMazepi ne 400 mg 12 hr tablet 08-17 00:00: 00 04-01 00:00 :00 No [id number] 400mg Take 1 tablet by mouth 2 (two) times daily. [facility] doxepin 50 mg capsule 08-17 00:00: 00 04-01 00:00 :00 No [id number] 50mg Take 1 capsule by mouth at bedtime. [facility] ipratropium 0.02 % nebulizer solution 08-17 00:00: 00 04-01 00:00 :00 No [id number] .5mg Inhale 2.5 mL every 8 (eight) hours as needed for Wheezing or Shortness of Breath. [facility] fluticasone propionate 110 mcg/actuati on inhaler 08-17 00:00: 00 04-01 00:00 :00 No [id number] 1{puff} Inhale 1 Puff every 12 (twelve) hours. [facility] carBAMazepi ne 400 mg 12 hr tablet 08-17 00:00: 00 04-01 00:00 :00 No [id number] 400mg Take 1 tablet by mouth 2 (two) times daily. [facility] doxepin 50 mg capsule 08-17 00:00: 00 04-01 00:00 :00 No [id number] 50mg Take 1 capsule by mouth at bedtime. [facility] ipratropium 0.02 % nebulizer solution 08-17 00:00: 00 04-01 00:00 :00 No [id number] .5mg Inhale 2.5 mL every 8 (eight) hours as needed for Wheezing or Shortness of Breath. [facility] fluticasone propionate 110 mcg/actuati on inhaler 08-17 00:00: 00 04-01 00:00 :00 No [id number] 1{puff} Inhale 1 Puff every 12 (twelve) hours. [facility] carBAMazepi ne 400 mg 12 hr tablet 08-17 00:00: 00 04-01 00:00 :00 No [id number] 400mg Take 1 tablet by mouth 2 (two) times daily. [facility] doxepin 50 mg capsule 08-17 00:00: 00 04-01 00:00 :00 No [id number] 50mg Take 1 capsule by mouth at bedtime. [facility] ipratropium 0.02 % nebulizer solution 08-17 00:00: 00 04-01 00:00 :00 No [id number] .5mg Inhale 2.5 mL every 8 (eight) hours as needed for Wheezing or Shortness of Breath. [facility] fluticasone propionate 110 mcg/actuati on inhaler 08-17 00:00: 00 04-01 00:00 :00 No [id number] 1{puff} Inhale 1 Puff every 12 (twelve) hours. [facility] carBAMazepi ne 400 mg 12 hr tablet 08-17 00:00: 00 04-01 00:00 :00 No [id number] 400mg Take 1 tablet by mouth 2 (two) times daily. [facility] doxepin 50 mg capsule 08-17 00:00: 00 04-01 00:00 :00 No [id number] 50mg Take 1 capsule by mouth at bedtime. [facility] ipratropium 0.02 % nebulizer solution 08-17 00:00: 00 04-01 00:00 :00 No [id number] .5mg Inhale 2.5 mL every 8 (eight) hours as needed for Wheezing or Shortness of Breath. [facility] Miscellaneo [facility] Medical Supply Kit 08-17 00:00: 00 11-07 00:00 :00 No [id number] J40: Brochitis - Dispense # 1 Laura Respironic s (okay for alternativ e brand) for nebulizer treatment [facility] azelaic acid 20 % cream 08-17 00:00: 00 11-07 00:00 :00 No [id number] Apply to area(s) 2 (two) times daily. Apply 2g to affected areas BID [facility] ondansetron (ZOFRAN) 4 mg tablet 08-17 00:00: 00 11-07 00:00 :00 No [id number] 4mg Take 1 tablet by mouth every 8 (eight) hours as needed for Nausea and Vomiting (N/V). [facility] proMETHazin e (PHENERGAN) 25 mg suppository 08-17 00:00: 00 11-07 00:00 :00 No [id number] 25mg Insert 1 Suppositor y into rectum every 4 (four) hours as needed for Nausea and Vomiting (N/V). [facility] predniSONE 20 mg tablet 2019-08 00:00: 00 11-07 00:00 :00 No [id number] 60mg Take 3 tablets by mouth every morning. [facility] benzonatate 100 mg capsule 2017-0 9-13 00:00: 00 11-07 00:00 :00 No 100mg Take 1 capsule by mouth 3 (three) times daily as needed for Cough. [facility] Immunizations Ordered Immunization Name Filled Immunization Name Date Status Comments Source SARS-COV-2 COVID-19 MODERNA 0.25ML BOOSTER VACCINE 2022-01-23 00:00:00 Completed [facility] SARS-COV-2 COVID-19 MODERNA 0.25ML BOOSTER VACCINE 2022-01-23 00:00:00 Completed [facility] SARS-COV-2 COVID-19 MODERNA 0.25ML BOOSTER VACCINE 2022-01-23 00:00:00 Completed [facility] SARS-COV-2 COVID-19 MODERNA 0.25ML BOOSTER VACCINE 2022-01-23 00:00:00 Completed [facility] SARS-COV-2 COVID-19 MODERNA 0.25ML BOOSTER VACCINE 2022-01-23 00:00:00 Completed [facility] SARS-COV-2 COVID-19 MODERNA 0.25ML BOOSTER VACCINE 2022-01-23 00:00:00 Completed [facility] SARS-COV-2 COVID-19 MODERNA 0.25ML BOOSTER VACCINE 2022-01-23 00:00:00 Completed [facility] SARS-COV-2 COVID-19 MODERNA 0.25ML BOOSTER VACCINE 2022-01-23 00:00:00 Completed [facility] SARS-COV-2 COVID-19 MODERNA 0.25ML BOOSTER VACCINE 2022-01-23 00:00:00 Completed [facility] SARS-COV-2 COVID-19 MODERNA 0.25ML BOOSTER VACCINE 2022-01-23 00:00:00 Completed [facility] SARS-COV-2 COVID-19 MODERNA 0.25ML BOOSTER VACCINE 2022-01-23 00:00:00 Completed [facility] SARS-COV-2 COVID-19 MODERNA 0.25ML BOOSTER VACCINE 2022-01-23 00:00:00 Completed [facility] SARS-COV-2 COVID-19 MODERNA 0.25ML BOOSTER VACCINE 2022-01-23 00:00:00 Completed [facility] SARS-COV-2 COVID-19 MODERNA 0.25ML BOOSTER VACCINE 2022-01-23 00:00:00 Completed [facility] SARS-COV-2 COVID-19 MODERNA 0.25ML BOOSTER VACCINE 2022-01-23 00:00:00 Completed [facility] SARS-COV-2 COVID-19 MODERNA 0.25ML BOOSTER VACCINE 2022-01-23 00:00:00 Completed [facility] SARS-COV-2 COVID-19 MODERNA 0.25ML BOOSTER VACCINE 2022-01-23 00:00:00 Completed [facility] SARS-COV-2 COVID-19 MODERNA 0.25ML BOOSTER VACCINE 2022-01-23 00:00:00 Completed [facility] SARS-COV-2 COVID-19 MODERNA 0.25ML BOOSTER VACCINE 2022-01-23 00:00:00 Completed [facility] SARS-COV-2 COVID-19 MODERNA 0.25ML BOOSTER VACCINE 2022-01-23 00:00:00 Completed [facility] SARS-COV-2 COVID-19 MODERNA 0.25ML BOOSTER VACCINE 2022-01-23 00:00:00 Completed [facility] SARS-COV-2 COVID-19 MODERNA 0.25ML BOOSTER VACCINE 2022-01-23 00:00:00 Completed [facility] SARS-COV-2 COVID-19 MODERNA 0.25ML BOOSTER VACCINE 2022-01-23 00:00:00 Completed [facility] SARS-COV-2 COVID-19 MODERNA 0.25ML BOOSTER VACCINE 2022-01-23 00:00:00 Completed [facility] SARS-COV-2 COVID-19 MODERNA 0.25ML BOOSTER VACCINE 2022-01-23 00:00:00 Completed [facility] SARS-COV-2 COVID-19 MODERNA 0.25ML BOOSTER VACCINE 2022-01-23 00:00:00 Completed [facility] SARS-COV-2 COVID-19 MODERNA 0.25ML BOOSTER VACCINE 2022-01-23 00:00:00 Completed [facility] SARS-COV-2 COVID-19 MODERNA 0.25ML BOOSTER VACCINE 2022-01-23 00:00:00 Completed [facility] SARS-COV-2 COVID-19 MODERNA 0.25ML BOOSTER VACCINE 2022-01-23 00:00:00 Completed [facility] SARS-COV-2 COVID-19 MODERNA 0.25ML BOOSTER VACCINE 2022-01-23 00:00:00 Completed [facility] SARS-COV-2 COVID-19 MODERNA 0.25ML BOOSTER VACCINE 2022-01-23 00:00:00 Completed [facility] SARS-COV-2 COVID-19 MODERNA 0.25ML BOOSTER VACCINE 2022-01-23 00:00:00 Completed [facility] SARS-COV-2 COVID-19 MODERNA 0.25ML BOOSTER VACCINE 2022-01-23 00:00:00 Completed [facility] SARS-COV-2 COVID-19 MODERNA 0.25ML BOOSTER VACCINE 2022-01-23 00:00:00 Completed [facility] SARS-COV-2 COVID-19 MODERNA 0.25ML BOOSTER VACCINE 2022-01-23 00:00:00 Completed [facility] SARS-COV-2 COVID-19 MODERNA 0.25ML BOOSTER VACCINE 2022-01-23 00:00:00 Completed [facility] SARS-COV-2 COVID-19 MODERNA 0.25ML BOOSTER VACCINE 2022-01-23 00:00:00 Completed [facility] SARS-COV-2 COVID-19 MODERNA 0.25ML BOOSTER VACCINE 2022-01-23 00:00:00 Completed [facility] SARS-COV-2 COVID-19 MODERNA 0.25ML BOOSTER VACCINE 2022-01-23 00:00:00 Completed [facility] SARS-COV-2 COVID-19 MODERNA 0.25ML BOOSTER VACCINE 2022-01-23 00:00:00 Completed [facility] SARS-COV-2 COVID-19 MODERNA 0.25ML BOOSTER VACCINE 2022-01-23 00:00:00 Completed [facility] SARS-COV-2 COVID-19 MODERNA 0.25ML BOOSTER VACCINE 2022-01-23 00:00:00 Completed [facility] SARS-COV-2 COVID-19 MODERNA 0.25ML BOOSTER VACCINE 2022-01-23 00:00:00 Completed [facility] SARS-COV-2 COVID-19 MODERNA 0.25ML BOOSTER VACCINE 2022-01-23 00:00:00 Completed [facility] SARS-COV-2 COVID-19 MODERNA 0.25ML BOOSTER VACCINE 2022-01-23 00:00:00 Completed [facility] SARS-COV-2 COVID-19 MODERNA VACCINE 2020-11-14 00:00:00 Completed [facility] SARS-COV-2 COVID-19 MODERNA VACCINE 2020-11-14 00:00:00 Completed [facility] SARS-COV-2 COVID-19 MODERNA VACCINE 2020-11-14 00:00:00 Completed [facility] SARS-COV-2 COVID-19 MODERNA VACCINE 2020-11-14 00:00:00 Completed [facility] SARS-COV-2 COVID-19 MODERNA VACCINE 2020-11-14 00:00:00 Completed [facility] SARS-COV-2 COVID-19 MODERNA VACCINE 2020-11-14 00:00:00 Completed [facility] SARS-COV-2 COVID-19 MODERNA VACCINE 2020-11-14 00:00:00 Completed [facility] SARS-COV-2 COVID-19 MODERNA VACCINE 2020-11-14 00:00:00 Completed [facility] SARS-COV-2 COVID-19 MODERNA VACCINE 2020-11-14 00:00:00 Completed [facility] SARS-COV-2 COVID-19 MODERNA VACCINE 2020-11-14 00:00:00 Completed [facility] SARS-COV-2 COVID-19 MODERNA VACCINE 2020-11-14 00:00:00 Completed [facility] SARS-COV-2 COVID-19 MODERNA VACCINE 2020-11-14 00:00:00 Completed [facility] SARS-COV-2 COVID-19 MODERNA 12+ YRS VACCINE 2020-11-14 00:00:00 Completed [facility] SARS-COV-2 COVID-19 MODERNA 12+ YRS VACCINE 2020-11-14 00:00:00 Completed [facility] SARS-COV-2 COVID-19 MODERNA 12+ YRS VACCINE 2020-11-14 00:00:00 Completed [facility] SARS-COV-2 COVID-19 MODERNA 12+ YRS VACCINE 2020-11-14 00:00:00 Completed [facility] SARS-COV-2 COVID-19 MODERNA 12+ YRS VACCINE 2020-11-14 00:00:00 Completed [facility] SARS-COV-2 COVID-19 MODERNA 12+ YRS VACCINE 2020-11-14 00:00:00 Completed [facility] SARS-COV-2 COVID-19 MODERNA 12+ YRS VACCINE 2020-11-14 00:00:00 Completed [facility] SARS-COV-2 COVID-19 MODERNA 12+ YRS VACCINE 2020-11-14 00:00:00 Completed [facility] SARS-COV-2 COVID-19 MODERNA 12+ YRS VACCINE 2020-11-14 00:00:00 Completed [facility] SARS-COV-2 COVID-19 MODERNA 12+ YRS VACCINE 2020-11-14 00:00:00 Completed [facility] SARS-COV-2 COVID-19 MODERNA 12+ YRS VACCINE 2020-11-14 00:00:00 Completed [facility] SARS-COV-2 COVID-19 MODERNA 12+ YRS VACCINE 2020-11-14 00:00:00 Completed [facility] SARS-COV-2 COVID-19 MODERNA 12+ YRS VACCINE 2020-11-14 00:00:00 Completed [facility] SARS-COV-2 COVID-19 MODERNA 12+ YRS VACCINE 2020-11-14 00:00:00 Completed [facility] SARS-COV-2 COVID-19 MODERNA 12+ YRS VACCINE 2020-11-14 00:00:00 Completed [facility] SARS-COV-2 COVID-19 MODERNA 12+ YRS VACCINE 2020-11-14 00:00:00 Completed [facility] SARS-COV-2 COVID-19 MODERNA 12+ YRS VACCINE 2020-11-14 00:00:00 Completed [facility] SARS-COV-2 COVID-19 MODERNA 12+ YRS VACCINE 2020-11-14 00:00:00 Completed [facility] SARS-COV-2 COVID-19 MODERNA 12+ YRS VACCINE 2020-11-14 00:00:00 Completed [facility] SARS-COV-2 COVID-19 MODERNA 12+ YRS VACCINE 2020-11-14 00:00:00 Completed [facility] SARS-COV-2 COVID-19 MODERNA 12+ YRS VACCINE 2020-11-14 00:00:00 Completed [facility] SARS-COV-2 COVID-19 MODERNA 12+ YRS VACCINE 2020-11-14 00:00:00 Completed [facility] SARS-COV-2 COVID-19 MODERNA 12+ YRS VACCINE 2020-11-14 00:00:00 Completed [facility] SARS-COV-2 COVID-19 MODERNA 12+ YRS VACCINE 2020-11-14 00:00:00 Completed [facility] SARS-COV-2 COVID-19 MODERNA 12+ YRS VACCINE 2020-11-14 00:00:00 Completed [facility] SARS-COV-2 COVID-19 MODERNA 12+ YRS VACCINE 2020-11-14 00:00:00 Completed [facility] SARS-COV-2 COVID-19 MODERNA 12+ YRS VACCINE 2020-11-14 00:00:00 Completed [facility] SARS-COV-2 COVID-19 MODERNA 12+ YRS VACCINE 2020-11-14 00:00:00 Completed [facility] SARS-COV-2 COVID-19 MODERNA 12+ YRS VACCINE 2020-11-14 00:00:00 Completed [facility] SARS-COV-2 COVID-19 MODERNA 12+ YRS VACCINE 2020-11-14 00:00:00 Completed [facility] SARS-COV-2 COVID-19 MODERNA 12+ YRS VACCINE 2020-11-14 00:00:00 Completed [facility] SARS-COV-2 COVID-19 MODERNA 12+ YRS VACCINE 2020-11-14 00:00:00 Completed [facility] SARS-COV-2 COVID-19 MODERNA 12+ YRS VACCINE 2020-11-14 00:00:00 Completed [facility] SARS-COV-2 COVID-19 MODERNA 12+ YRS VACCINE 2020-11-14 00:00:00 Completed [facility] SARS-COV-2 COVID-19 MODERNA 12+ YRS VACCINE 2020-11-14 00:00:00 Completed [facility] SARS-COV-2 COVID-19 MODERNA 12+ YRS VACCINE 2020-11-14 00:00:00 Completed [facility] SARS-COV-2 COVID-19 MODERNA 12+ YRS VACCINE 2020-11-14 00:00:00 Completed [facility] SARS-COV-2 COVID-19 MODERNA 12+ YRS VACCINE 2020-11-14 00:00:00 Completed [facility] SARS-COV-2 COVID-19 MODERNA VACCINE 2020-10-17 00:00:00 Completed [facility] SARS-COV-2 COVID-19 MODERNA VACCINE 2020-10-17 00:00:00 Completed [facility] SARS-COV-2 COVID-19 MODERNA VACCINE 2020-10-17 00:00:00 Completed [facility] SARS-COV-2 COVID-19 MODERNA VACCINE 2020-10-17 00:00:00 Completed [facility] SARS-COV-2 COVID-19 MODERNA VACCINE 2020-10-17 00:00:00 Completed [facility] SARS-COV-2 COVID-19 MODERNA VACCINE 2020-10-17 00:00:00 Completed [facility] SARS-COV-2 COVID-19 MODERNA VACCINE 2020-10-17 00:00:00 Completed [facility] SARS-COV-2 COVID-19 MODERNA VACCINE 2020-10-17 00:00:00 Completed [facility] SARS-COV-2 COVID-19 MODERNA VACCINE 2020-10-17 00:00:00 Completed [facility] SARS-COV-2 COVID-19 MODERNA VACCINE 2020-10-17 00:00:00 Completed [facility] SARS-COV-2 COVID-19 MODERNA VACCINE 2020-10-17 00:00:00 Completed [facility] SARS-COV-2 COVID-19 MODERNA VACCINE 2020-10-17 00:00:00 Completed [facility] SARS-COV-2 COVID-19 MODERNA 12+ YRS VACCINE 2020-10-17 00:00:00 Completed [facility] SARS-COV-2 COVID-19 MODERNA 12+ YRS VACCINE 2020-10-17 00:00:00 Completed [facility] SARS-COV-2 COVID-19 MODERNA 12+ YRS VACCINE 2020-10-17 00:00:00 Completed [facility] SARS-COV-2 COVID-19 MODERNA 12+ YRS VACCINE 2020-10-17 00:00:00 Completed [facility] SARS-COV-2 COVID-19 MODERNA 12+ YRS VACCINE 2020-10-17 00:00:00 Completed [facility] SARS-COV-2 COVID-19 MODERNA 12+ YRS VACCINE 2020-10-17 00:00:00 Completed [facility] SARS-COV-2 COVID-19 MODERNA 12+ YRS VACCINE 2020-10-17 00:00:00 Completed [facility] SARS-COV-2 COVID-19 MODERNA 12+ YRS VACCINE 2020-10-17 00:00:00 Completed [facility] SARS-COV-2 COVID-19 MODERNA 12+ YRS VACCINE 2020-10-17 00:00:00 Completed [facility] SARS-COV-2 COVID-19 MODERNA 12+ YRS VACCINE 2020-10-17 00:00:00 Completed [facility] SARS-COV-2 COVID-19 MODERNA 12+ YRS VACCINE 2020-10-17 00:00:00 Completed [facility] SARS-COV-2 COVID-19 MODERNA 12+ YRS VACCINE 2020-10-17 00:00:00 Completed [facility] SARS-COV-2 COVID-19 MODERNA 12+ YRS VACCINE 2020-10-17 00:00:00 Completed [facility] SARS-COV-2 COVID-19 MODERNA 12+ YRS VACCINE 2020-10-17 00:00:00 Completed [facility] SARS-COV-2 COVID-19 MODERNA 12+ YRS VACCINE 2020-10-17 00:00:00 Completed [facility] SARS-COV-2 COVID-19 MODERNA 12+ YRS VACCINE 2020-10-17 00:00:00 Completed [facility] SARS-COV-2 COVID-19 MODERNA 12+ YRS VACCINE 2020-10-17 00:00:00 Completed [facility] SARS-COV-2 COVID-19 MODERNA 12+ YRS VACCINE 2020-10-17 00:00:00 Completed [facility] SARS-COV-2 COVID-19 MODERNA 12+ YRS VACCINE 2020-10-17 00:00:00 Completed [facility] SARS-COV-2 COVID-19 MODERNA 12+ YRS VACCINE 2020-10-17 00:00:00 Completed [facility] SARS-COV-2 COVID-19 MODERNA 12+ YRS VACCINE 2020-10-17 00:00:00 Completed [facility] SARS-COV-2 COVID-19 MODERNA 12+ YRS VACCINE 2020-10-17 00:00:00 Completed [facility] SARS-COV-2 COVID-19 MODERNA 12+ YRS VACCINE 2020-10-17 00:00:00 Completed [facility] SARS-COV-2 COVID-19 MODERNA 12+ YRS VACCINE 2020-10-17 00:00:00 Completed [facility] SARS-COV-2 COVID-19 MODERNA 12+ YRS VACCINE 2020-10-17 00:00:00 Completed [facility] SARS-COV-2 COVID-19 MODERNA 12+ YRS VACCINE 2020-10-17 00:00:00 Completed [facility] SARS-COV-2 COVID-19 MODERNA 12+ YRS VACCINE 2020-10-17 00:00:00 Completed [facility] SARS-COV-2 COVID-19 MODERNA 12+ YRS VACCINE 2020-10-17 00:00:00 Completed [facility] SARS-COV-2 COVID-19 MODERNA 12+ YRS VACCINE 2020-10-17 00:00:00 Completed [facility] SARS-COV-2 COVID-19 MODERNA 12+ YRS VACCINE 2020-10-17 00:00:00 Completed [facility] SARS-COV-2 COVID-19 MODERNA 12+ YRS VACCINE 2020-10-17 00:00:00 Completed [facility] SARS-COV-2 COVID-19 MODERNA 12+ YRS VACCINE 2020-10-17 00:00:00 Completed [facility] SARS-COV-2 COVID-19 MODERNA 12+ YRS VACCINE 2020-10-17 00:00:00 Completed [facility] SARS-COV-2 COVID-19 MODERNA 12+ YRS VACCINE 2020-10-17 00:00:00 Completed [facility] SARS-COV-2 COVID-19 MODERNA 12+ YRS VACCINE 2020-10-17 00:00:00 Completed [facility] SARS-COV-2 COVID-19 MODERNA 12+ YRS VACCINE 2020-10-17 00:00:00 Completed [facility] SARS-COV-2 COVID-19 MODERNA 12+ YRS VACCINE 2020-10-17 00:00:00 Completed [facility] SARS-COV-2 COVID-19 MODERNA 12+ YRS VACCINE 2020-10-17 00:00:00 Completed [facility] SARS-COV-2 COVID-19 MODERNA 12+ YRS VACCINE Unknown Completed [facility] SARS-COV-2 COVID-19 MODERNA 12+ YRS VACCINE Unknown Completed [facility] SARS-COV-2 COVID-19 MODERNA 0.25ML BOOSTER VACCINE Unknown Completed [facility] SARS-COV-2 COVID-19 MODERNA 12+ YRS VACCINE Unknown Completed [facility] SARS-COV-2 COVID-19 MODERNA 12+ YRS VACCINE Unknown Completed [facility] SARS-COV-2 COVID-19 MODERNA 0.25ML BOOSTER VACCINE Unknown Completed [facility] SARS-COV-2 COVID-19 MODERNA 12+ YRS VACCINE Unknown Completed [facility] SARS-COV-2 COVID-19 MODERNA 12+ YRS VACCINE Unknown Completed [facility] SARS-COV-2 COVID-19 MODERNA 0.25ML BOOSTER VACCINE Unknown Completed [facility] SARS-COV-2 COVID-19 MODERNA 12+ YRS VACCINE Unknown Completed [facility] SARS-COV-2 COVID-19 MODERNA 12+ YRS VACCINE Unknown Completed [facility] SARS-COV-2 COVID-19 MODERNA 0.25ML BOOSTER VACCINE Unknown Completed [facility] SARS-COV-2 COVID-19 MODERNA 12+ YRS VACCINE Unknown Completed [facility] SARS-COV-2 COVID-19 MODERNA 12+ YRS VACCINE Unknown Completed [facility] SARS-COV-2 COVID-19 MODERNA 0.25ML BOOSTER VACCINE Unknown Completed [facility] SARS-COV-2 COVID-19 MODERNA 12+ YRS VACCINE Unknown Completed [facility] SARS-COV-2 COVID-19 MODERNA 12+ YRS VACCINE Unknown Completed [facility] SARS-COV-2 COVID-19 MODERNA 0.25ML BOOSTER VACCINE Unknown Completed [facility] SARS-COV-2 COVID-19 MODERNA 12+ YRS VACCINE Unknown Completed [facility] SARS-COV-2 COVID-19 MODERNA 12+ YRS VACCINE Unknown Completed [facility] SARS-COV-2 COVID-19 MODERNA 0.25ML BOOSTER VACCINE Unknown Completed [facility] SARS-COV-2 COVID-19 MODERNA 12+ YRS VACCINE Unknown Completed [facility] SARS-COV-2 COVID-19 MODERNA 12+ YRS VACCINE Unknown Completed [facility] SARS-COV-2 COVID-19 MODERNA 0.25ML BOOSTER VACCINE Unknown Completed [facility] SARS-COV-2 COVID-19 MODERNA 12+ YRS VACCINE Unknown Completed [facility] SARS-COV-2 COVID-19 MODERNA 12+ YRS VACCINE Unknown Completed [facility] SARS-COV-2 COVID-19 MODERNA 0.25ML BOOSTER VACCINE Unknown Completed [facility] SARS-COV-2 COVID-19 MODERNA 12+ YRS VACCINE Unknown Completed [facility] SARS-COV-2 COVID-19 MODERNA 12+ YRS VACCINE Unknown Completed [facility] SARS-COV-2 COVID-19 MODERNA 12+ YRS VACCINE Unknown Completed [facility] SARS-COV-2 COVID-19 MODERNA 12+ YRS VACCINE Unknown Completed [facility] SARS-COV-2 COVID-19 MODERNA 12+ YRS VACCINE Unknown Completed [facility] SARS-COV-2 COVID-19 MODERNA 0.25ML BOOSTER VACCINE Unknown Completed [facility] SARS-COV-2 COVID-19 MODERNA 12+ YRS VACCINE Unknown Completed [facility] SARS-COV-2 COVID-19 MODERNA 12+ YRS VACCINE Unknown Completed [facility] SARS-COV-2 COVID-19 MODERNA 0.25ML BOOSTER VACCINE Unknown Completed [facility] SARS-COV-2 COVID-19 MODERNA 12+ YRS VACCINE Unknown Completed [facility] SARS-COV-2 COVID-19 MODERNA 12+ YRS VACCINE Unknown Completed [facility] SARS-COV-2 COVID-19 MODERNA 0.25ML BOOSTER VACCINE Unknown Completed [facility] SARS-COV-2 COVID-19 MODERNA 12+ YRS VACCINE Unknown Completed [facility] SARS-COV-2 COVID-19 MODERNA 12+ YRS VACCINE Unknown Completed [facility] SARS-COV-2 COVID-19 MODERNA 0.25ML BOOSTER VACCINE Unknown Completed [facility] SARS-COV-2 COVID-19 MODERNA 12+ YRS VACCINE Unknown Completed [facility] SARS-COV-2 COVID-19 MODERNA 12+ YRS VACCINE Unknown Completed [facility] SARS-COV-2 COVID-19 MODERNA 0.25ML BOOSTER VACCINE Unknown Completed [facility] SARS-COV-2 COVID-19 MODERNA 12+ YRS VACCINE Unknown Completed [facility] SARS-COV-2 COVID-19 MODERNA 12+ YRS VACCINE Unknown Completed [facility] SARS-COV-2 COVID-19 MODERNA 0.25ML BOOSTER VACCINE Unknown Completed [facility] SARS-COV-2 COVID-19 MODERNA 12+ YRS VACCINE Unknown Completed [facility] SARS-COV-2 COVID-19 MODERNA 12+ YRS VACCINE Unknown Completed [facility] SARS-COV-2 COVID-19 MODERNA 0.25ML BOOSTER VACCINE Unknown Completed [facility] SARS-COV-2 COVID-19 MODERNA 12+ YRS VACCINE Unknown Completed [facility] SARS-COV-2 COVID-19 MODERNA 12+ YRS VACCINE Unknown Completed [facility] SARS-COV-2 COVID-19 MODERNA 0.25ML BOOSTER VACCINE Unknown Completed [facility] SARS-COV-2 COVID-19 MODERNA 12+ YRS VACCINE Unknown Completed [facility] SARS-COV-2 COVID-19 MODERNA 12+ YRS VACCINE Unknown Completed [facility] SARS-COV-2 COVID-19 MODERNA 0.25ML BOOSTER VACCINE Unknown Completed [facility] SARS-COV-2 COVID-19 MODERNA 12+ YRS VACCINE Unknown Completed [facility] SARS-COV-2 COVID-19 MODERNA 12+ YRS VACCINE Unknown Completed [facility] SARS-COV-2 COVID-19 MODERNA 0.25ML BOOSTER VACCINE Unknown Completed [facility] SARS-COV-2 COVID-19 MODERNA 12+ YRS VACCINE Unknown Completed [facility] SARS-COV-2 COVID-19 MODERNA 12+ YRS VACCINE Unknown Completed [facility] SARS-COV-2 COVID-19 MODERNA 0.25ML BOOSTER VACCINE Unknown Completed [facility] SARS-COV-2 COVID-19 MODERNA 12+ YRS VACCINE Unknown Completed [facility] SARS-COV-2 COVID-19 MODERNA 12+ YRS VACCINE Unknown Completed [facility] SARS-COV-2 COVID-19 MODERNA 0.25ML BOOSTER VACCINE Unknown Completed [facility] SARS-COV-2 COVID-19 MODERNA 12+ YRS VACCINE Unknown Completed [facility] SARS-COV-2 COVID-19 MODERNA 12+ YRS VACCINE Unknown Completed [facility] SARS-COV-2 COVID-19 MODERNA 0.25ML BOOSTER VACCINE Unknown Completed [facility] SARS-COV-2 COVID-19 MODERNA 12+ YRS VACCINE Unknown Completed [facility] SARS-COV-2 COVID-19 MODERNA 12+ YRS VACCINE Unknown Completed [facility] SARS-COV-2 COVID-19 MODERNA 0.25ML BOOSTER VACCINE Unknown Completed [facility] SARS-COV-2 COVID-19 MODERNA 12+ YRS VACCINE Unknown Completed [facility] SARS-COV-2 COVID-19 MODERNA 12+ YRS VACCINE Unknown Completed [facility] SARS-COV-2 COVID-19 MODERNA 0.25ML BOOSTER VACCINE Unknown Completed [facility] SARS-COV-2 COVID-19 MODERNA 12+ YRS VACCINE Unknown Completed [facility] SARS-COV-2 COVID-19 MODERNA 12+ YRS VACCINE Unknown Completed [facility] SARS-COV-2 COVID-19 MODERNA 0.25ML BOOSTER VACCINE Unknown Completed [facility] SARS-COV-2 COVID-19 MODERNA 12+ YRS VACCINE Unknown Completed [facility] SARS-COV-2 COVID-19 MODERNA 12+ YRS VACCINE Unknown Completed [facility] SARS-COV-2 COVID-19 MODERNA 0.25ML BOOSTER VACCINE Unknown Completed [facility] SARS-COV-2 COVID-19 MODERNA 12+ YRS VACCINE Unknown Completed [facility] SARS-COV-2 COVID-19 MODERNA 12+ YRS VACCINE Unknown Completed [facility] SARS-COV-2 COVID-19 MODERNA 0.25ML BOOSTER VACCINE Unknown Completed [facility] SARS-COV-2 COVID-19 MODERNA 12+ YRS VACCINE Unknown Completed [facility] SARS-COV-2 COVID-19 MODERNA 12+ YRS VACCINE Unknown Completed [facility] SARS-COV-2 COVID-19 MODERNA 0.25ML BOOSTER VACCINE Unknown Completed [facility] SARS-COV-2 COVID-19 MODERNA 12+ YRS VACCINE Unknown Completed [facility] SARS-COV-2 COVID-19 MODERNA 12+ YRS VACCINE Unknown Completed [facility] SARS-COV-2 COVID-19 MODERNA 0.25ML BOOSTER VACCINE Unknown Completed [facility] SARS-COV-2 COVID-19 MODERNA 12+ YRS VACCINE Unknown Completed [facility] SARS-COV-2 COVID-19 MODERNA 12+ YRS VACCINE Unknown Completed [facility] SARS-COV-2 COVID-19 MODERNA 0.25ML BOOSTER VACCINE Unknown Completed [facility] SARS-COV-2 COVID-19 MODERNA 12+ YRS VACCINE Unknown Completed [facility] SARS-COV-2 COVID-19 MODERNA 12+ YRS VACCINE Unknown Completed [facility] SARS-COV-2 COVID-19 MODERNA 0.25ML BOOSTER VACCINE Unknown Completed [facility] SARS-COV-2 COVID-19 MODERNA 12+ YRS VACCINE Unknown Completed [facility] SARS-COV-2 COVID-19 MODERNA 12+ YRS VACCINE Unknown Completed [facility] SARS-COV-2 COVID-19 MODERNA 0.25ML BOOSTER VACCINE Unknown Completed [facility] SARS-COV-2 COVID-19 MODERNA 12+ YRS VACCINE Unknown Completed [facility] SARS-COV-2 COVID-19 MODERNA 12+ YRS VACCINE Unknown Completed [facility] SARS-COV-2 COVID-19 MODERNA 0.25ML BOOSTER VACCINE Unknown Completed [facility] SARS-COV-2 COVID-19 MODERNA 12+ YRS VACCINE Unknown Completed [facility] SARS-COV-2 COVID-19 MODERNA 12+ YRS VACCINE Unknown Completed [facility] SARS-COV-2 COVID-19 MODERNA 0.25ML BOOSTER VACCINE Unknown Completed [facility] SARS-COV-2 COVID-19 MODERNA 12+ YRS VACCINE Unknown Completed [facility] SARS-COV-2 COVID-19 MODERNA 12+ YRS VACCINE Unknown Completed [facility] SARS-COV-2 COVID-19 MODERNA 0.25ML BOOSTER VACCINE Unknown Completed [facility] SARS-COV-2 COVID-19 MODERNA 12+ YRS VACCINE Unknown Completed [facility] SARS-COV-2 COVID-19 MODERNA 12+ YRS VACCINE Unknown Completed [facility] SARS-COV-2 COVID-19 MODERNA 0.25ML BOOSTER VACCINE Unknown Completed [facility] SARS-COV-2 COVID-19 MODERNA 12+ YRS VACCINE Unknown Completed [facility] SARS-COV-2 COVID-19 MODERNA 12+ YRS VACCINE Unknown Completed [facility] SARS-COV-2 COVID-19 MODERNA 0.25ML BOOSTER VACCINE Unknown Completed [facility] SARS-COV-2 COVID-19 MODERNA 12+ YRS VACCINE Unknown Completed [facility] SARS-COV-2 COVID-19 MODERNA 12+ YRS VACCINE Unknown Completed [facility] SARS-COV-2 COVID-19 MODERNA 0.25ML BOOSTER VACCINE Unknown Completed [facility] SARS-COV-2 COVID-19 MODERNA 12+ YRS VACCINE Unknown Completed [facility] SARS-COV-2 COVID-19 MODERNA 12+ YRS VACCINE Unknown Completed [facility] SARS-COV-2 COVID-19 MODERNA 0.25ML BOOSTER VACCINE Unknown Completed [facility] SARS-COV-2 COVID-19 MODERNA 12+ YRS VACCINE Unknown Completed [facility] SARS-COV-2 COVID-19 MODERNA 12+ YRS VACCINE Unknown Completed [facility] SARS-COV-2 COVID-19 MODERNA 0.25ML BOOSTER VACCINE Unknown Completed [facility] SARS-COV-2 COVID-19 MODERNA 12+ YRS VACCINE Unknown Completed [facility] SARS-COV-2 COVID-19 MODERNA 12+ YRS VACCINE Unknown Completed [facility] SARS-COV-2 COVID-19 MODERNA 0.25ML BOOSTER VACCINE Unknown Completed [facility] SARS-COV-2 COVID-19 MODERNA 12+ YRS VACCINE Unknown Completed [facility] SARS-COV-2 COVID-19 MODERNA 12+ YRS VACCINE Unknown Completed [facility] SARS-COV-2 COVID-19 MODERNA 0.25ML BOOSTER VACCINE Unknown Completed [facility] SARS-COV-2 COVID-19 MODERNA 12+ YRS VACCINE Unknown Completed [facility] SARS-COV-2 COVID-19 MODERNA 12+ YRS VACCINE Unknown Completed [facility] SARS-COV-2 COVID-19 MODERNA 0.25ML BOOSTER VACCINE Unknown Completed [facility] SARS-COV-2 COVID-19 MODERNA 12+ YRS VACCINE Unknown Completed [facility] SARS-COV-2 COVID-19 MODERNA 12+ YRS VACCINE Unknown Completed [facility] SARS-COV-2 COVID-19 MODERNA 0.25ML BOOSTER VACCINE Unknown Completed [facility] SARS-COV-2 COVID-19 MODERNA 12+ YRS VACCINE Unknown Completed [facility] SARS-COV-2 COVID-19 MODERNA 12+ YRS VACCINE Unknown Completed [facility] SARS-COV-2 COVID-19 MODERNA 0.25ML BOOSTER VACCINE Unknown Completed [facility] SARS-COV-2 COVID-19 MODERNA 12+ YRS VACCINE Unknown Completed [facility] SARS-COV-2 COVID-19 MODERNA 12+ YRS VACCINE Unknown Completed [facility] SARS-COV-2 COVID-19 MODERNA 0.25ML BOOSTER VACCINE Unknown Completed [facility] SARS-COV-2 COVID-19 MODERNA 12+ YRS VACCINE Unknown Completed [facility] SARS-COV-2 COVID-19 MODERNA 12+ YRS VACCINE Unknown Completed [facility] SARS-COV-2 COVID-19 MODERNA 0.25ML BOOSTER VACCINE Unknown Completed [facility] SARS-COV-2 COVID-19 MODERNA 12+ YRS VACCINE Unknown Completed [facility] SARS-COV-2 COVID-19 MODERNA 12+ YRS VACCINE Unknown Completed [facility] SARS-COV-2 COVID-19 MODERNA 0.25ML BOOSTER VACCINE Unknown Completed [facility] SARS-COV-2 COVID-19 MODERNA 12+ YRS VACCINE Unknown Completed [facility] SARS-COV-2 COVID-19 MODERNA 12+ YRS VACCINE Unknown Completed [facility] SARS-COV-2 COVID-19 MODERNA 0.25ML BOOSTER VACCINE Unknown Completed [facility] SARS-COV-2 COVID-19 MODERNA 12+ YRS VACCINE Unknown Completed [facility] SARS-COV-2 COVID-19 MODERNA 12+ YRS VACCINE Unknown Completed [facility] SARS-COV-2 COVID-19 MODERNA 0.25ML BOOSTER VACCINE Unknown Completed [facility] SARS-COV-2 COVID-19 MODERNA 12+ YRS VACCINE Unknown Completed [facility] SARS-COV-2 COVID-19 MODERNA 12+ YRS VACCINE Unknown Completed [facility] SARS-COV-2 COVID-19 MODERNA 0.25ML BOOSTER VACCINE Unknown Completed [facility] SARS-COV-2 COVID-19 MODERNA 12+ YRS VACCINE Unknown Completed [facility] SARS-COV-2 COVID-19 MODERNA 12+ YRS VACCINE Unknown Completed [facility] SARS-COV-2 COVID-19 MODERNA 0.25ML BOOSTER VACCINE Unknown Completed [facility] SARS-COV-2 COVID-19 MODERNA 12+ YRS VACCINE Unknown Completed [facility] SARS-COV-2 COVID-19 MODERNA 12+ YRS VACCINE Unknown Completed [facility] SARS-COV-2 COVID-19 MODERNA 0.25ML BOOSTER VACCINE Unknown Completed [facility] SARS-COV-2 COVID-19 MODERNA 12+ YRS VACCINE Unknown Completed [facility] SARS-COV-2 COVID-19 MODERNA 12+ YRS VACCINE Unknown Completed [facility] SARS-COV-2 COVID-19 MODERNA 0.25ML BOOSTER VACCINE Unknown Completed [facility] SARS-COV-2 COVID-19 MODERNA 12+ YRS VACCINE Unknown Completed [facility] SARS-COV-2 COVID-19 MODERNA 12+ YRS VACCINE Unknown Completed [facility] SARS-COV-2 COVID-19 MODERNA 0.25ML BOOSTER VACCINE Unknown Completed [facility] SARS-COV-2 COVID-19 MODERNA 12+ YRS VACCINE Unknown Completed [facility] SARS-COV-2 COVID-19 MODERNA 12+ YRS VACCINE Unknown Completed [facility] SARS-COV-2 COVID-19 MODERNA 0.25ML BOOSTER VACCINE Unknown Completed [facility] SARS-COV-2 COVID-19 MODERNA 12+ YRS VACCINE Unknown Completed [facility] SARS-COV-2 COVID-19 MODERNA 12+ YRS VACCINE Unknown Completed [facility] SARS-COV-2 COVID-19 MODERNA 0.25ML BOOSTER VACCINE Unknown Completed [facility] SARS-COV-2 COVID-19 MODERNA 12+ YRS VACCINE Unknown Completed [facility] SARS-COV-2 COVID-19 MODERNA 12+ YRS VACCINE Unknown Completed [facility] SARS-COV-2 COVID-19 MODERNA 0.25ML BOOSTER VACCINE Unknown Completed [facility] SARS-COV-2 COVID-19 MODERNA 12+ YRS VACCINE Unknown Completed [facility] SARS-COV-2 COVID-19 MODERNA 12+ YRS VACCINE Unknown Completed [facility] SARS-COV-2 COVID-19 MODERNA 0.25ML BOOSTER VACCINE Unknown Completed [facility] SARS-COV-2 COVID-19 MODERNA 12+ YRS VACCINE Unknown Completed [facility] SARS-COV-2 COVID-19 MODERNA 12+ YRS VACCINE Unknown Completed [facility] SARS-COV-2 COVID-19 MODERNA 0.25ML BOOSTER VACCINE Unknown Completed [facility] SARS-COV-2 COVID-19 MODERNA 12+ YRS VACCINE Unknown Completed [facility] SARS-COV-2 COVID-19 MODERNA 12+ YRS VACCINE Unknown Completed [facility] SARS-COV-2 COVID-19 MODERNA 0.25ML BOOSTER VACCINE Unknown Completed [facility] SARS-COV-2 COVID-19 MODERNA 12+ YRS VACCINE Unknown Completed [facility] SARS-COV-2 COVID-19 MODERNA 12+ YRS VACCINE Unknown Completed [facility] SARS-COV-2 COVID-19 MODERNA 0.25ML BOOSTER VACCINE Unknown Completed [facility] SARS-COV-2 COVID-19 MODERNA 12+ YRS VACCINE Unknown Completed [facility] SARS-COV-2 COVID-19 MODERNA 12+ YRS VACCINE Unknown Completed [facility] SARS-COV-2 COVID-19 MODERNA 0.25ML BOOSTER VACCINE Unknown Completed [facility] SARS-COV-2 COVID-19 MODERNA 12+ YRS VACCINE Unknown Completed [facility] SARS-COV-2 COVID-19 MODERNA 12+ YRS VACCINE Unknown Completed [facility] SARS-COV-2 COVID-19 MODERNA 0.25ML BOOSTER VACCINE Unknown Completed [facility] SARS-COV-2 COVID-19 MODERNA 12+ YRS VACCINE Unknown Completed [facility] SARS-COV-2 COVID-19 MODERNA 12+ YRS VACCINE Unknown Completed [facility] SARS-COV-2 COVID-19 MODERNA 0.25ML BOOSTER VACCINE Unknown Completed [facility] SARS-COV-2 COVID-19 MODERNA 12+ YRS VACCINE Unknown Completed [facility] SARS-COV-2 COVID-19 MODERNA 12+ YRS VACCINE Unknown Completed [facility] SARS-COV-2 COVID-19 MODERNA 0.25ML BOOSTER VACCINE Unknown Completed [facility] SARS-COV-2 COVID-19 MODERNA 12+ YRS VACCINE Unknown Completed [facility] SARS-COV-2 COVID-19 MODERNA 12+ YRS VACCINE Unknown Completed [facility] SARS-COV-2 COVID-19 MODERNA 0.25ML BOOSTER VACCINE Unknown Completed [facility] SARS-COV-2 COVID-19 MODERNA 12+ YRS VACCINE Unknown Completed [facility] SARS-COV-2 COVID-19 MODERNA 12+ YRS VACCINE Unknown Completed [facility] SARS-COV-2 COVID-19 MODERNA 0.25ML BOOSTER VACCINE Unknown Completed [facility] SARS-COV-2 COVID-19 MODERNA 12+ YRS VACCINE Unknown Completed [facility] SARS-COV-2 COVID-19 MODERNA 12+ YRS VACCINE Unknown Completed [facility] SARS-COV-2 COVID-19 MODERNA 0.25ML BOOSTER VACCINE Unknown Completed [facility] SARS-COV-2 COVID-19 MODERNA 12+ YRS VACCINE Unknown Completed [facility] SARS-COV-2 COVID-19 MODERNA 12+ YRS VACCINE Unknown Completed [facility] SARS-COV-2 COVID-19 MODERNA 0.25ML BOOSTER VACCINE Unknown Completed [facility] SARS-COV-2 COVID-19 MODERNA 12+ YRS VACCINE Unknown Completed [facility] SARS-COV-2 COVID-19 MODERNA 12+ YRS VACCINE Unknown Completed [facility] SARS-COV-2 COVID-19 MODERNA 0.25ML BOOSTER VACCINE Unknown Completed [facility] SARS-COV-2 COVID-19 MODERNA 12+ YRS VACCINE Unknown Completed [facility] SARS-COV-2 COVID-19 MODERNA 12+ YRS VACCINE Unknown Completed [facility] SARS-COV-2 COVID-19 MODERNA 0.25ML BOOSTER VACCINE Unknown Completed [facility] SARS-COV-2 COVID 19 ALLY SUCROSE VACCINE 2022-2024, 0.3 ML (30 MCG), IM PFIZER (TRAN TOP) Unknown Completed [facility] SARS-COV-2 COVID-19 MODERNA 12+ YRS VACCINE Unknown Completed [facility] SARS-COV-2 COVID-19 MODERNA 12+ YRS VACCINE Unknown Completed [facility] SARS-COV-2 COVID-19 MODERNA 0.25ML BOOSTER VACCINE Unknown Completed [facility] SARS-COV-2 COVID 19 ALLY SUCROSE VACCINE 2022-2024, 0.3 ML (30 MCG), IM PFIZER (TRAN TOP) Unknown Completed [facility] SARS-COV-2 COVID-19 MODERNA 12+ YRS VACCINE Unknown Completed [facility] SARS-COV-2 COVID-19 MODERNA 12+ YRS VACCINE Unknown Completed [facility] SARS-COV-2 COVID-19 MODERNA 0.25ML BOOSTER VACCINE Unknown Completed [facility] SARS-COV-2 COVID 19 ALLY SUCROSE VACCINE 12, , 0.3 ML (30 MCG), IM PFIZER (TRAN TOP) Unknown Completed [facility] SARS-COV-2 COVID-19 MODERNA 12+ YRS VACCINE Unknown Completed [facility] SARS-COV-2 COVID-19 MODERNA 12+ YRS VACCINE Unknown Completed [facility] SARS-COV-2 COVID-19 MODERNA 0.25ML BOOSTER VACCINE Unknown Completed [facility] SARS-COV-2 COVID 19 ALLY SUCROSE VACCINE 12, , 0.3 ML (30 MCG), IM PFIZER (TRAN TOP) Unknown Completed [facility] SARS-COV-2 COVID-19 MODERNA 12+ YRS VACCINE Unknown Completed [facility] SARS-COV-2 COVID-19 MODERNA 12+ YRS VACCINE Unknown Completed [facility] SARS-COV-2 COVID-19 MODERNA 0.25ML BOOSTER VACCINE Unknown Completed [facility] SARS-COV-2 COVID 19 ALLY SUCROSE VACCINE , , 0.3 ML (30 MCG), IM PFIZER (TRAN TOP) Unknown Completed [facility] SARS-COV-2 COVID-19 MODERNA 12+ YRS VACCINE Unknown Completed [facility] SARS-COV-2 COVID-19 MODERNA 12+ YRS VACCINE Unknown Completed [facility] SARS-COV-2 COVID-19 MODERNA 0.25ML BOOSTER VACCINE Unknown Completed [facility] SARS-COV-2 COVID 19 ALLY SUCROSE VACCINE , , 0.3 ML (30 MCG), IM PFIZER (TRAN TOP) Unknown Completed [facility] SARS-COV-2 COVID-19 MODERNA 12+ YRS VACCINE Unknown Completed [facility] SARS-COV-2 COVID-19 MODERNA 12+ YRS VACCINE Unknown Completed [facility] SARS-COV-2 COVID-19 MODERNA 0.25ML BOOSTER VACCINE Unknown Completed [facility] SARS-COV-2 COVID 19 ALLY SUCROSE VACCINE , , 0.3 ML (30 MCG), IM PFIZER (TRAN TOP) Unknown Completed [facility] SARS-COV-2 COVID-19 MODERNA 12+ YRS VACCINE Unknown Completed [facility] SARS-COV-2 COVID-19 MODERNA 12+ YRS VACCINE Unknown Completed [facility] SARS-COV-2 COVID-19 MODERNA 0.25ML BOOSTER VACCINE Unknown Completed [facility] SARS-COV-2 COVID 19 ALLY SUCROSE VACCINE 12+, [id number], 0.3 ML (30 MCG), IM PFIZER (TRAN TOP) Unknown Completed [facility] SARS-COV-2 COVID-19 MODERNA 12+ YRS VACCINE Unknown Completed [facility] SARS-COV-2 COVID-19 MODERNA 12+ YRS VACCINE Unknown Completed [facility] SARS-COV-2 COVID-19 MODERNA 0.25ML BOOSTER VACCINE Unknown Completed [facility] SARS-COV-2 COVID 19 ALLY SUCROSE VACCINE 12+, [id number], 0.3 ML (30 MCG), IM PFIZER (TRAN TOP) Unknown Completed [facility] SARS-COV-2 COVID-19 MODERNA 12+ YRS VACCINE Unknown Completed [facility] SARS-COV-2 COVID-19 MODERNA 12+ YRS VACCINE Unknown Completed [facility] SARS-COV-2 COVID-19 MODERNA 0.25ML BOOSTER VACCINE Unknown Completed [facility] SARS-COV-2 COVID 19 ALLY SUCROSE VACCINE , , 0.3 ML (30 MCG), IM PFIZER (TRAN TOP) Unknown Completed [facility] SARS-COV-2 COVID-19 MODERNA 12+ YRS VACCINE Unknown Completed [facility] SARS-COV-2 COVID-19 MODERNA 12+ YRS VACCINE Unknown Completed [facility] SARS-COV-2 COVID-19 MODERNA 0.25ML BOOSTER VACCINE Unknown Completed [facility] SARS-COV-2 COVID 19 ALLY SUCROSE VACCINE 12+, , 0.3 ML (30 MCG), IM PFIZER (TRAN TOP) Unknown Completed [facility] SARS-COV-2 COVID-19 MODERNA 12+ YRS VACCINE Unknown Completed [facility] SARS-COV-2 COVID-19 MODERNA 12+ YRS VACCINE Unknown Completed [facility] SARS-COV-2 COVID-19 MODERNA 0.25ML BOOSTER VACCINE Unknown Completed [facility] SARS-COV-2 COVID 19 ALLY SUCROSE VACCINE 12, , 0.3 ML (30 MCG), IM PFIZER (TRAN TOP) Unknown Completed [facility] SARS-COV-2 COVID-19 MODERNA 12+ YRS VACCINE Unknown Completed [facility] SARS-COV-2 COVID-19 MODERNA 12+ YRS VACCINE Unknown Completed [facility] SARS-COV-2 COVID-19 MODERNA 0.25ML BOOSTER VACCINE Unknown Completed [facility] SARS-COV-2 COVID 19 ALLY SUCROSE VACCINE 12+, , 0.3 ML (30 MCG), IM PFIZER (TRAN TOP) Unknown Completed [facility] SARS-COV-2 COVID-19 MODERNA 12+ YRS VACCINE Unknown Completed [facility] SARS-COV-2 COVID-19 MODERNA 12+ YRS VACCINE Unknown Completed [facility] SARS-COV-2 COVID-19 MODERNA 0.25ML BOOSTER VACCINE Unknown Completed [facility] SARS-COV-2 COVID 19 ALLY SUCROSE VACCINE 12, , 0.3 ML (30 MCG), IM PFIZER (TRAN TOP) Unknown Completed [facility] SARS-COV-2 COVID-19 MODERNA 12+ YRS VACCINE Unknown Completed [facility] SARS-COV-2 COVID-19 MODERNA 12+ YRS VACCINE Unknown Completed [facility] SARS-COV-2 COVID-19 MODERNA 0.25ML BOOSTER VACCINE Unknown Completed [facility] SARS-COV-2 COVID 19 ALLY SUCROSE VACCINE , , 0.3 ML (30 MCG), IM PFIZER (TRAN TOP) Unknown Completed [facility] SARS-COV-2 COVID-19 MODERNA 12+ YRS VACCINE Unknown Completed [facility] SARS-COV-2 COVID-19 MODERNA 12+ YRS VACCINE Unknown Completed [facility] SARS-COV-2 COVID-19 MODERNA 0.25ML BOOSTER VACCINE Unknown Completed [facility] SARS-COV-2 COVID 19 ALLY SUCROSE VACCINE 12+, , 0.3 ML (30 MCG), IM PFIZER (TRAN TOP) Unknown Completed [facility] SARS-COV-2 COVID-19 MODERNA 12+ YRS VACCINE Unknown Completed [facility] SARS-COV-2 COVID-19 MODERNA 12+ YRS VACCINE Unknown Completed [facility] SARS-COV-2 COVID-19 MODERNA 0.25ML BOOSTER VACCINE Unknown Completed [facility] SARS-COV-2 COVID 19 ALLY SUCROSE VACCINE 12+, , 0.3 ML (30 MCG), IM PFIZER (TRAN TOP) Unknown Completed [facility] SARS-COV-2 COVID-19 MODERNA 12+ YRS VACCINE Unknown Completed [facility] SARS-COV-2 COVID-19 MODERNA 12+ YRS VACCINE Unknown Completed [facility] SARS-COV-2 COVID-19 MODERNA 0.25ML BOOSTER VACCINE Unknown Completed [facility] SARS-COV-2 COVID 19 ALLY SUCROSE VACCINE 12+, , 0.3 ML (30 MCG), IM PFIZER (TRAN TOP) Unknown Completed [facility] SARS-COV-2 COVID-19 MODERNA 12+ YRS VACCINE Unknown Completed [facility] SARS-COV-2 COVID-19 MODERNA 12+ YRS VACCINE Unknown Completed [facility] SARS-COV-2 COVID-19 MODERNA 0.25ML BOOSTER VACCINE Unknown Completed [facility] SARS-COV-2 COVID 19 ALLY SUCROSE VACCINE , , 0.3 ML (30 MCG), IM PFIZER (TRAN TOP) Unknown Completed [facility] SARS-COV-2 COVID-19 MODERNA 12+ YRS VACCINE Unknown Completed [facility] SARS-COV-2 COVID-19 MODERNA 12+ YRS VACCINE Unknown Completed [facility] SARS-COV-2 COVID-19 MODERNA 0.25ML BOOSTER VACCINE Unknown Completed [facility] SARS-COV-2 COVID 19 ALLY SUCROSE VACCINE 12, , 0.3 ML (30 MCG), IM PFIZER (TRAN TOP) Unknown Completed [facility] SARS-COV-2 COVID-19 MODERNA 12+ YRS VACCINE Unknown Completed [facility] SARS-COV-2 COVID-19 MODERNA 12+ YRS VACCINE Unknown Completed [facility] SARS-COV-2 COVID-19 MODERNA 0.25ML BOOSTER VACCINE Unknown Completed [facility] SARS-COV-2 COVID 19 ALLY SUCROSE VACCINE 12, , 0.3 ML (30 MCG), IM PFIZER (TRAN TOP) Unknown Completed [facility] SARS-COV-2 COVID-19 MODERNA 12+ YRS VACCINE Unknown Completed [facility] SARS-COV-2 COVID-19 MODERNA 12+ YRS VACCINE Unknown Completed [facility] SARS-COV-2 COVID-19 MODERNA 0.25ML BOOSTER VACCINE Unknown Completed [facility] SARS-COV-2 COVID 19 ALLY SUCROSE VACCINE 12+, , 0.3 ML (30 MCG), IM PFIZER (TRAN TOP) Unknown Completed [facility] SARS-COV-2 COVID-19 MODERNA 12+ YRS VACCINE Unknown Completed [facility] SARS-COV-2 COVID-19 MODERNA 12+ YRS VACCINE Unknown Completed [facility] SARS-COV-2 COVID-19 MODERNA 0.25ML BOOSTER VACCINE Unknown Completed [facility] SARS-COV-2 COVID 19 ALLY SUCROSE VACCINE 12+, , 0.3 ML (30 MCG), IM PFIZER (TRAN TOP) Unknown Completed [facility] SARS-COV-2 COVID-19 MODERNA 12+ YRS VACCINE Unknown Completed [facility] SARS-COV-2 COVID-19 MODERNA 12+ YRS VACCINE Unknown Completed [facility] SARS-COV-2 COVID-19 MODERNA 0.25ML BOOSTER VACCINE Unknown Completed [facility] SARS-COV-2 COVID 19 ALLY SUCROSE VACCINE 12, , 0.3 ML (30 MCG), IM PFIZER (TRAN TOP) Unknown Completed [facility] SARS-COV-2 COVID-19 MODERNA 12+ YRS VACCINE Unknown Completed [facility] SARS-COV-2 COVID-19 MODERNA 12+ YRS VACCINE Unknown Completed [facility] SARS-COV-2 COVID-19 MODERNA 0.25ML BOOSTER VACCINE Unknown Completed [facility] SARS-COV-2 COVID 19 ALLY SUCROSE VACCINE 12+, , 0.3 ML (30 MCG), IM PFIZER (TRAN TOP) Unknown Completed [facility] SARS-COV-2 COVID-19 MODERNA 12+ YRS VACCINE Unknown Completed [facility] SARS-COV-2 COVID-19 MODERNA 12+ YRS VACCINE Unknown Completed [facility] SARS-COV-2 COVID-19 MODERNA 0.25ML BOOSTER VACCINE Unknown Completed [facility] SARS-COV-2 COVID 19 ALLY SUCROSE VACCINE 12+, , 0.3 ML (30 MCG), IM PFIZER (TRAN TOP) Unknown Completed [facility] SARS-COV-2 COVID-19 MODERNA 12+ YRS VACCINE Unknown Completed [facility] SARS-COV-2 COVID-19 MODERNA 12+ YRS VACCINE Unknown Completed [facility] SARS-COV-2 COVID-19 MODERNA 0.25ML BOOSTER VACCINE Unknown Completed [facility] SARS-COV-2 COVID 19 ALLY SUCROSE VACCINE 12, , 0.3 ML (30 MCG), IM PFIZER (TRAN TOP) Unknown Completed [facility] SARS-COV-2 COVID-19 MODERNA 12+ YRS VACCINE Unknown Completed [facility] SARS-COV-2 COVID-19 MODERNA 12+ YRS VACCINE Unknown Completed [facility] SARS-COV-2 COVID-19 MODERNA 0.25ML BOOSTER VACCINE Unknown Completed [facility] SARS-COV-2 COVID 19 ALLY SUCROSE VACCINE , , 0.3 ML (30 MCG), IM PFIZER (TRAN TOP) Unknown Completed [facility] SARS-COV-2 COVID-19 MODERNA 12+ YRS VACCINE Unknown Completed [facility] SARS-COV-2 COVID-19 MODERNA 12+ YRS VACCINE Unknown Completed [facility] SARS-COV-2 COVID-19 MODERNA 0.25ML BOOSTER VACCINE Unknown Completed [facility] SARS-COV-2 COVID 19 ALLY SUCROSE VACCINE 12, , 0.3 ML (30 MCG), IM PFIZER (TRAN TOP) Unknown Completed [facility] SARS-COV-2 COVID-19 MODERNA 12+ YRS VACCINE Unknown Completed [facility] SARS-COV-2 COVID-19 MODERNA 12+ YRS VACCINE Unknown Completed [facility] SARS-COV-2 COVID-19 MODERNA 0.25ML BOOSTER VACCINE Unknown Completed [facility] SARS-COV-2 COVID 19 ALLY SUCROSE VACCINE 12+, , 0.3 ML (30 MCG), IM PFIZER (TRAN TOP) Unknown Completed [facility] SARS-COV-2 COVID-19 MODERNA 12+ YRS VACCINE Unknown Completed [facility] SARS-COV-2 COVID-19 MODERNA 12+ YRS VACCINE Unknown Completed [facility] SARS-COV-2 COVID-19 MODERNA 0.25ML BOOSTER VACCINE Unknown Completed [facility] SARS-COV-2 COVID 19 ALLY SUCROSE VACCINE 12+, , 0.3 ML (30 MCG), IM PFIZER (TRAN TOP) Unknown Completed [facility] SARS-COV-2 COVID-19 MODERNA 12+ YRS VACCINE Unknown Completed [facility] SARS-COV-2 COVID-19 MODERNA 12+ YRS VACCINE Unknown Completed [facility] SARS-COV-2 COVID-19 MODERNA 0.25ML BOOSTER VACCINE Unknown Completed [facility] SARS-COV-2 COVID 19 ALLY SUCROSE VACCINE 12+, , 0.3 ML (30 MCG), IM PFIZER (TRAN TOP) Unknown Completed [facility] SARS-COV-2 COVID-19 MODERNA 12+ YRS VACCINE Unknown Completed [facility] SARS-COV-2 COVID-19 MODERNA 12+ YRS VACCINE Unknown Completed [facility] SARS-COV-2 COVID-19 MODERNA 0.25ML BOOSTER VACCINE Unknown Completed [facility] SARS-COV-2 COVID 19 ALLY SUCROSE VACCINE 12, , 0.3 ML (30 MCG), IM PFIZER (TRAN TOP) Unknown Completed [facility] SARS-COV-2 COVID-19 MODERNA 12+ YRS VACCINE Unknown Completed [facility] SARS-COV-2 COVID-19 MODERNA 12+ YRS VACCINE Unknown Completed [facility] SARS-COV-2 COVID-19 MODERNA 0.25ML BOOSTER VACCINE Unknown Completed [facility] SARS-COV-2 COVID 19 ALLY SUCROSE VACCINE 12+, , 0.3 ML (30 MCG), IM PFIZER (TRAN TOP) Unknown Completed [facility] SARS-COV-2 COVID-19 MODERNA 12+ YRS VACCINE Unknown Completed [facility] SARS-COV-2 COVID-19 MODERNA 12+ YRS VACCINE Unknown Completed [facility] SARS-COV-2 COVID-19 MODERNA 0.25ML BOOSTER VACCINE Unknown Completed [facility] SARS-COV-2 COVID 19 ALLY SUCROSE VACCINE 12+, , 0.3 ML (30 MCG), IM PFIZER (TRAN TOP) Unknown Completed [facility] SARS-COV-2 COVID-19 MODERNA 12+ YRS VACCINE Unknown Completed [facility] SARS-COV-2 COVID-19 MODERNA 12+ YRS VACCINE Unknown Completed [facility] SARS-COV-2 COVID-19 MODERNA 0.25ML BOOSTER VACCINE Unknown Completed [facility] SARS-COV-2 COVID 19 ALLY SUCROSE VACCINE 12, , 0.3 ML (30 MCG), IM PFIZER (TRAN TOP) Unknown Completed [facility] SARS-COV-2 COVID-19 MODERNA 12+ YRS VACCINE Unknown Completed [facility] SARS-COV-2 COVID-19 MODERNA 12+ YRS VACCINE Unknown Completed [facility] SARS-COV-2 COVID-19 MODERNA 0.25ML BOOSTER VACCINE Unknown Completed [facility] SARS-COV-2 COVID 19 ALLY SUCROSE VACCINE , , 0.3 ML (30 MCG), IM PFIZER (TRAN TOP) Unknown Completed [facility] SARS-COV-2 COVID-19 MODERNA 12+ YRS VACCINE Unknown Completed [facility] SARS-COV-2 COVID-19 MODERNA 12+ YRS VACCINE Unknown Completed [facility] SARS-COV-2 COVID-19 MODERNA 0.25ML BOOSTER VACCINE Unknown Completed [facility] SARS-COV-2 COVID 19 ALLY SUCROSE VACCINE 12, , 0.3 ML (30 MCG), IM PFIZER (TRAN TOP) Unknown Completed [facility] SARS-COV-2 COVID-19 MODERNA 12+ YRS VACCINE Unknown Completed [facility] SARS-COV-2 COVID-19 MODERNA 12+ YRS VACCINE Unknown Completed [facility] SARS-COV-2 COVID-19 MODERNA 0.25ML BOOSTER VACCINE Unknown Completed [facility] SARS-COV-2 COVID 19 ALLY SUCROSE VACCINE 12+, , 0.3 ML (30 MCG), IM PFIZER (TRAN TOP) Unknown Completed [facility] SARS-COV-2 COVID-19 MODERNA 12+ YRS VACCINE Unknown Completed [facility] SARS-COV-2 COVID-19 MODERNA 12+ YRS VACCINE Unknown Completed [facility] SARS-COV-2 COVID-19 MODERNA 0.25ML BOOSTER VACCINE Unknown Completed [facility] SARS-COV-2 COVID 19 ALLY SUCROSE VACCINE 12+, , 0.3 ML (30 MCG), IM PFIZER (TRAN TOP) Unknown Completed [facility] SARS-COV-2 COVID-19 MODERNA 12+ YRS VACCINE Unknown Completed [facility] SARS-COV-2 COVID-19 MODERNA 12+ YRS VACCINE Unknown Completed [facility] SARS-COV-2 COVID-19 MODERNA 0.25ML BOOSTER VACCINE Unknown Completed [facility] SARS-COV-2 COVID 19 ALLY SUCROSE VACCINE 12+, , 0.3 ML (30 MCG), IM PFIZER (TRAN TOP) Unknown Completed [facility] SARS-COV-2 COVID-19 MODERNA 12+ YRS VACCINE Unknown Completed [facility] SARS-COV-2 COVID-19 MODERNA 12+ YRS VACCINE Unknown Completed [facility] SARS-COV-2 COVID-19 MODERNA 0.25ML BOOSTER VACCINE Unknown Completed [facility] SARS-COV-2 COVID 19 ALLY SUCROSE VACCINE , , 0.3 ML (30 MCG), IM PFIZER (TRAN TOP) Unknown Completed [facility] Vital Signs Vital Name Observation Time Observation Value Comments S ource Systolic blood pressure 2023-09-15 18:17:00 123 mm[Hg] [facility] Diastolic blood pressure 2023-09-15 18:17:00 84 mm[Hg] [facility] Heart rate 2023-09-15 18:17:00 84 /min [facility] Body temperature 2023-09-15 18:17:00 37.28 Jodi [facility] Respiratory rate 2023-09-15 18:17:00 18 /min [facility] Body height 2023-09-15 18:17:00 167.6 cm [facility] Body weight 2023-09-15 18:17:00 108.863 kg [facility] BMI 2023-09-15 18:17:00 38.74 kg/m2 [facility] Oxygen saturation in Arterial blood by Pulse oximetry 2023-09-15 18:17:00 100 /min [facility] Systolic blood pressure 2023-09-03 13:15:00 117 mm[Hg] [facility] Diastolic blood pressure 2023-09-03 13:15:00 51 mm[Hg] [facility] Heart rate 2023-09-03 13:15:00 72 /min [facility] Body temperature 2023-09-03 13:15:00 36.89 Jodi [facility] Respiratory rate 2023-09-03 13:15:00 17 /min [facility] Oxygen saturation in Arterial blood by Pulse oximetry 2023-09-03 13:15:00 98 /min [facility] Systolic blood pressure 2023-09-02 19:33:00 122 mm[Hg] [facility] Diastolic blood pressure 2023-09-02 19:33:00 92 mm[Hg] [facility] Heart rate 2023-09-02 19:33:00 81 /min [facility] Body temperature 2023-09-02 19:33:00 36.72 Jodi [facility] Respiratory rate 2023-09-02 19:33:00 21 /min [facility] Oxygen saturation in Arterial blood by Pulse oximetry 2023-09-02 19:33:00 100 /min [facility] Systolic blood pressure 2023-09-01 15:11:00 126 mm[Hg] [facility] Diastolic blood pressure 2023-09-01 15:11:00 89 mm[Hg] [facility] Heart rate 2023-09-01 15:11:00 98 /min [facility] Body temperature 2023-09-01 15:11:00 36.39 Jodi [facility] Body height 2023-09-01 15:11:00 152.4 cm [facility] Body weight 2023-09-01 15:11:00 119.75 kg [facility] BMI 2023-09-01 15:11:00 51.56 kg/m2 [facility] Oxygen saturation in Arterial blood by Pulse oximetry 2023-09-01 15:11:00 98 /min [facility] Systolic blood pressure 2023-08-26 19:07:00 140 mm[Hg] [facility] Diastolic blood pressure 2023-08-26 19:07:00 88 mm[Hg] [facility] Heart rate 2023-08-26 19:07:00 86 /min [facility] Body height 2023-08-26 19:07:00 165.1 cm [facility] Body weight 2023-08-26 19:07:00 120.385 kg [facility] BMI 2023-08-26 19:07:00 44.16 kg/m2 [facility] Oxygen saturation in Arterial blood by Pulse oximetry 2023-08-26 19:07:00 99 /min [facility] Systolic blood pressure 2023-08-19 21:01:00 132 mm[Hg] [facility] Diastolic blood pressure 2023-08-19 21:01:00 85 mm[Hg] [facility] Heart rate 2023-08-19 21:01:00 90 /min [facility] Respiratory rate 2023-08-19 21:01:00 18 /min [facility] Body height 2023-08-19 21:01:00 166.4 cm [facility] Body weight 2023-08-19 21:01:00 120.657 kg [facility] BMI 2023-08-19 21:01:00 43.59 kg/m2 [facility] Oxygen saturation in Arterial blood by Pulse oximetry 2023-08-19 21:01:00 97 /min [facility] Systolic blood pressure 2023-08-13 20:58:00 131 mm[Hg] [facility] Diastolic blood pressure 2023-08-13 20:58:00 75 mm[Hg] [facility] Heart rate 2023-08-13 20:58:00 81 /min [facility] Body temperature 2023-08-13 20:58:00 36.94 Jodi [facility] Respiratory rate 2023-08-13 20:58:00 18 /min [facility] Body height 2023-08-13 20:58:00 165.1 cm [facility] Body weight 2023-08-13 20:58:00 122.018 kg [facility] BMI 2023-08-13 20:58:00 44.76 kg/m2 [facility] Systolic blood pressure 2023-07-30 21:35:00 110 mm[Hg] [facility] Diastolic blood pressure 2023-07-30 21:35:00 78 mm[Hg] [facility] Heart rate 2023-07-30 21:35:00 91 /min [facility] Body temperature 2023-07-30 21:35:00 37 Jodi [facility] Body height 2023-07-30 21:35:00 165.1 cm [facility] Body weight 2023-07-30 21:35:00 119.75 kg [facility] BMI 2023-07-30 21:35:00 43.93 kg/m2 [facility] Systolic blood pressure 2023-07-23 14:15:00 135 mm[Hg] [facility] Diastolic blood pressure 2023-07-23 14:15:00 86 mm[Hg] [facility] Heart rate 2023-07-23 14:15:00 112 /min [facility] Body temperature 2023-07-23 14:15:00 36.22 Jodi [facility] Body height 2023-07-23 14:15:00 165.1 cm [facility] Body weight 2023-07-23 14:15:00 120.112 kg [facility] BMI 2023-07-23 14:15:00 44.07 kg/m2 [facility] Systolic blood pressure 2023-07-09 21:45:00 114 mm[Hg] [facility] Diastolic blood pressure 2023-07-09 21:45:00 79 mm[Hg] [facility] Heart rate 2023-07-09 21:45:00 113 /min [facility] Body temperature 2023-07-09 21:45:00 37.11 Jodi [facility] Respiratory rate 2023-07-09 21:45:00 18 /min [facility] Body height 2023-07-09 21:45:00 165.1 cm [facility] Body weight 2023-07-09 21:45:00 119.886 kg [facility] BMI 2023-07-09 21:45:00 43.98 kg/m2 [facility] Oxygen saturation in Arterial blood by Pulse oximetry 2023-07-09 21:45:00 99 /min [facility] Systolic blood pressure 2023-07-01 18:16:00 129 mm[Hg] [facility] Diastolic blood pressure 2023-07-01 18:16:00 83 mm[Hg] [facility] Heart rate 2023-07-01 18:16:00 86 /min [facility] Body temperature 2023-07-01 18:16:00 36.11 Jodi [facility] Body height 2023-07-01 18:16:00 167.6 cm [facility] Body weight 2023-07-01 18:16:00 117.935 kg [facility] BMI 2023-07-01 18:16:00 41.97 kg/m2 [facility] Oxygen saturation in Arterial blood by Pulse oximetry 2023-07-01 18:16:00 98 /min [facility] Systolic blood pressure 2023-06-29 08:50:00 120 mm[Hg] [facility] Diastolic blood pressure 2023-06-29 08:50:00 83 mm[Hg] [facility] Heart rate 2023-06-29 08:50:00 79 /min [facility] Body temperature 2023-06-29 08:50:00 36.56 Jodi [facility] Respiratory rate 2023-06-29 08:50:00 16 /min [facility] Oxygen saturation in Arterial blood by Pulse oximetry 2023-06-29 08:50:00 100 /min [facility] Body height 2023-06-29 04:06:00 167.6 cm [facility] Body weight 2023-06-29 04:06:00 99.791 kg [facility] BMI 2023-06-29 04:06:00 35.51 kg/m2 [facility] Systolic blood pressure 2023-06-11 19:00:00 112 mm[Hg] manual [facility] Diastolic blood pressure 2023-06-11 19:00:00 40 mm[Hg] manual [facility] Heart rate 2023-06-11 19:00:00 95 /min [facility] Respiratory rate 2023-06-11 19:00:00 20 /min [facility] Body weight 2023-06-11 19:00:00 117.391 kg [facility] BMI 2023-06-11 19:00:00 41.77 kg/m2 [facility] Oxygen saturation in Arterial blood by Pulse oximetry 2023-06-11 19:00:00 100 /min arrived on RA; 6MW on RA [facility] Systolic blood pressure 2023-05-22 20:55:00 145 mm[Hg] [facility] Diastolic blood pressure 2023-05-22 20:55:00 84 mm[Hg] [facility] Heart rate 2023-05-22 20:54:00 100 /min [facility] Body temperature 2023-05-22 20:54:00 36.78 Jodi [facility] Respiratory rate 2023-05-22 20:54:00 17 /min [facility] Body height 2023-05-22 20:54:00 167.6 cm [facility] Body weight 2023-05-22 20:54:00 118.343 kg [facility] BMI 2023-05-22 20:54:00 42.11 kg/m2 [facility] Oxygen saturation in Arterial blood by Pulse oximetry 2023-05-22 20:54:00 98 /min [facility] Systolic blood pressure 2023-05-13 16:03:00 123 mm[Hg] [facility] Diastolic blood pressure 2023-05-13 16:03:00 85 mm[Hg] [facility] Heart rate 2023-05-13 16:03:00 84 /min [facility] Respiratory rate 2023-05-13 16:03:00 19 /min [facility] Body height 2023-05-13 16:03:00 167.6 cm [facility] Body weight 2023-05-13 16:03:00 115.758 kg [facility] BMI 2023-05-13 16:03:00 41.19 kg/m2 [facility] Oxygen saturation in Arterial blood by Pulse oximetry 2023-05-13 16:03:00 98 /min [facility] Systolic blood pressure 2023-05-13 14:12:00 130 mm[Hg] [facility] Diastolic blood pressure 2023-05-13 14:12:00 85 mm[Hg] [facility] Heart rate 2023-05-13 14:12:00 118 /min [facility] Body temperature 2023-05-13 14:10:00 37 Jodi [facility] Respiratory rate 2023-05-13 14:10:00 22 /min [facility] Body height 2023-05-13 14:10:00 167.6 cm [facility] Body weight 2023-05-13 14:10:00 115.803 kg [facility] BMI 2023-05-13 14:10:00 41.21 kg/m2 [facility] Oxygen saturation in Arterial blood by Pulse oximetry 2023-05-13 14:10:00 96 /min [facility] Systolic blood pressure 2023-04-29 20:37:00 121 mm[Hg] [facility] Diastolic blood pressure 2023-04-29 20:37:00 87 mm[Hg] [facility] Heart rate 2023-04-29 20:37:00 108 /min [facility] Respiratory rate 2023-04-29 20:37:00 18 /min [facility] Body height 2023-04-29 20:37:00 167.6 cm [facility] Body weight 2023-04-29 20:37:00 114.306 kg [facility] BMI 2023-04-29 20:37:00 40.67 kg/m2 [facility] Systolic blood pressure 2023-04-03 20:45:00 124 mm[Hg] [facility] Diastolic blood pressure 2023-04-03 20:45:00 88 mm[Hg] [facility] Heart rate 2023-04-03 20:45:00 99 /min [facility] Body temperature 2023-04-03 20:45:00 37.28 Jodi [facility] Respiratory rate 2023-04-03 20:45:00 15 /min [facility] Body height 2023-04-03 20:45:00 167.6 cm [facility] Body weight 2023-04-03 20:45:00 109.09 kg [facility] BMI 2023-04-03 20:45:00 38.82 kg/m2 [facility] Oxygen saturation in Arterial blood by Pulse oximetry 2023-04-03 20:45:00 98 /min [facility] Systolic blood pressure 2023-04-01 18:33:00 130 mm[Hg] [facility] Diastolic blood pressure 2023-04-01 18:33:00 80 mm[Hg] [facility] Heart rate 2023-04-01 18:33:00 87 /min [facility] Body temperature 2023-04-01 18:33:00 36.67 Jodi [facility] Respiratory rate 2023-04-01 18:33:00 20 /min [facility] Body height 2023-04-01 18:33:00 167.6 cm [facility] Body weight 2023-04-01 18:33:00 108.455 kg [facility] BMI 2023-04-01 18:33:00 38.59 kg/m2 [facility] Oxygen saturation in Arterial blood by Pulse oximetry 2023-04-01 18:33:00 99 /min [facility] Systolic blood pressure 2023-04-01 18:33:00 130 mm[Hg] [facility] Diastolic blood pressure 2023-04-01 18:33:00 80 mm[Hg] [facility] Heart rate 2023-04-01 18:33:00 87 /min [facility] Body temperature 2023-04-01 18:33:00 36.67 Jodi [facility] Respiratory rate 2023-04-01 18:33:00 20 /min [facility] Body height 2023-04-01 18:33:00 167.6 cm [facility] Body weight 2023-04-01 18:33:00 108.455 kg [facility] BMI 2023-04-01 18:33:00 38.59 kg/m2 [facility] Oxygen saturation in Arterial blood by Pulse oximetry 2023-04-01 18:33:00 99 /min [facility] Systolic blood pressure 2023-03-30 18:11:00 118 mm[Hg] [facility] Diastolic blood pressure 2023-03-30 18:11:00 83 mm[Hg] [facility] Heart rate 2023-03-30 18:11:00 94 /min [facility] Respiratory rate 2023-03-30 18:11:00 18 /min [facility] Body weight 2023-03-30 18:11:00 108.773 kg [facility] BMI 2023-03-30 18:11:00 39.30 kg/m2 [facility] Systolic blood pressure 2023-03-20 21:26:00 115 mm[Hg] [facility] Diastolic blood pressure 2023-03-20 21:26:00 78 mm[Hg] [facility] Heart rate 2023-03-20 21:26:00 86 /min [facility] Body temperature 2023-03-20 21:26:00 37.17 Jodi [facility] Respiratory rate 2023-03-20 21:26:00 20 /min [facility] Body weight 2023-03-20 21:26:00 109.861 kg [facility] BMI 2023-03-20 21:26:00 39.69 kg/m2 [facility] Oxygen saturation in Arterial blood by Pulse oximetry 2023-03-20 21:26:00 96 /min [facility] Systolic blood pressure 2023-02-02 20:17:00 134 mm[Hg] [facility] Diastolic blood pressure 2023-02-02 20:17:00 85 mm[Hg] [facility] Heart rate 2023-02-02 20:17:00 73 /min [facility] Body temperature 2023-02-02 20:17:00 36.89 Jodi [facility] Respiratory rate 2023-02-02 20:17:00 18 /min [facility] Body height 2023-02-02 20:17:00 166.4 cm [facility] Body weight 2023-02-02 20:17:00 109.77 kg [facility] BMI 2023-02-02 20:17:00 39.66 kg/m2 [facility] Systolic blood pressure 2022-08-05 00:16:00 126 mm[Hg] [facility] Diastolic blood pressure 2022-08-05 00:16:00 85 mm[Hg] [facility] Heart rate 2022-08-05 00:16:00 98 /min [facility] Body temperature 2022-08-05 00:16:00 37.28 Jodi [facility] Respiratory rate 2022-08-05 00:16:00 20 /min [facility] Body height 2022-08-05 00:16:00 167.6 cm [facility] Body weight 2022-08-05 00:16:00 99.791 kg [facility] BMI 2022-08-05 00:16:00 35.51 kg/m2 [facility] Oxygen saturation in Arterial blood by Pulse oximetry 2022-08-05 00:16:00 100 /min [facility] Systolic blood pressure 2022-05-12 14:38:00 153 mm[Hg] [facility] Diastolic blood pressure 2022-05-12 14:38:00 102 mm[Hg] [facility] Heart rate 2022-05-12 14:38:00 79 /min [facility] Body temperature 2022-05-12 14:38:00 36.17 Jodi [facility] Respiratory rate 2022-05-12 14:38:00 18 /min [facility] Body weight 2022-05-12 14:38:00 97.523 kg [facility] BMI 2022-05-12 14:38:00 34.70 kg/m2 [facility] Oxygen saturation in Arterial blood by Pulse oximetry 2022-05-12 14:38:00 100 /min [facility] Systolic blood pressure 2022-03-24 14:09:00 145 mm[Hg] [facility] Diastolic blood pressure 2022-03-24 14:09:00 108 mm[Hg] [facility] Heart rate 2022-03-24 14:09:00 90 /min [facility] Body temperature 2022-03-24 14:09:00 37.28 Jodi [facility] Respiratory rate 2022-03-24 14:09:00 14 /min [facility] Body height 2022-03-24 14:09:00 167.6 cm [facility] Body weight 2022-03-24 14:09:00 95.255 kg [facility] BMI 2022-03-24 14:09:00 33.89 kg/m2 [facility] Oxygen saturation in Arterial blood by Pulse oximetry 2022-03-24 14:09:00 100 /min [facility] Systolic blood pressure 2022-02-18 02:00:00 147 mm[Hg] [facility] Diastolic blood pressure 2022-02-18 02:00:00 95 mm[Hg] [facility] Heart rate 2022-02-18 02:00:00 78 /min [facility] Respiratory rate 2022-02-18 02:00:00 18 /min [facility] Oxygen saturation in Arterial blood by Pulse oximetry 2022-02-18 02:00:00 99 /min [facility] Body temperature 2022-02-17 23:30:00 37.06 Jodi [facility] Body weight 2022-02-17 23:30:00 98.158 kg [facility] BMI 2022-02-17 23:30:00 34.93 kg/m2 [facility] Systolic blood pressure 2022-02-17 23:10:00 146 mm[Hg] [facility] Diastolic blood pressure 2022-02-17 23:10:00 101 mm[Hg] [facility] Heart rate 2022-02-17 23:10:00 67 /min [facility] Body temperature 2022-02-17 23:10:00 37.56 Jodi [facility] Respiratory rate 2022-02-17 23:10:00 18 /min [facility] Body height 2022-02-17 23:10:00 167.6 cm [facility] Body weight 2022-02-17 23:10:00 95.255 kg [facility] BMI 2022-02-17 23:10:00 33.89 kg/m2 [facility] Oxygen saturation in Arterial blood by Pulse oximetry 2022-02-17 23:10:00 100 /min [facility] Systolic blood pressure 2022-01-26 18:37:00 120 mm[Hg] [facility] Diastolic blood pressure 2022-01-26 18:37:00 77 mm[Hg] [facility] Heart rate 2022-01-26 18:36:00 88 /min [facility] Body temperature 2022-01-26 18:36:00 36.67 Jodi [facility] Respiratory rate 2022-01-26 18:36:00 18 /min [facility] Body height 2022-01-26 18:36:00 165.1 cm [facility] Body weight 2022-01-26 18:36:00 96.616 kg [facility] BMI 2022-01-26 18:36:00 35.45 kg/m2 [facility] Oxygen saturation in Arterial blood by Pulse oximetry 2022-01-26 18:36:00 100 /min [facility] Systolic blood pressure 2021-11-24 09:19:00 125 mm[Hg] [facility] Diastolic blood pressure 2021-11-24 09:19:00 81 mm[Hg] [facility] Heart rate 2021-11-24 09:19:00 67 /min [facility] Respiratory rate 2021-11-24 09:19:00 19 /min [facility] Oxygen saturation in Arterial blood by Pulse oximetry 2021-11-24 09:19:00 99 /min [facility] Body temperature 2021-11-24 03:00:00 36.78 Jodi [facility] Body height 2021-11-24 03:00:00 165.1 cm [facility] Body weight 2021-11-24 03:00:00 97.523 kg [facility] BMI 2021-11-24 03:00:00 35.78 kg/m2 [facility] Systolic blood pressure 2021-11-21 21:13:00 127 mm[Hg] [facility] Diastolic blood pressure 2021-11-21 21:13:00 91 mm[Hg] [facility] Heart rate 2021-11-21 20:50:00 81 /min [facility] Body temperature 2021-11-21 20:50:00 37 Jodi [facility] Respiratory rate 2021-11-21 20:50:00 18 /min [facility] Body height 2021-11-21 20:50:00 165.1 cm [facility] Body weight 2021-11-21 20:50:00 97.523 kg [facility] BMI 2021-11-21 20:50:00 35.78 kg/m2 [facility] Procedures Procedure Date / Time Performed Performing Clinician Source POCT SARS-COV-2 ANTIGEN (BINAX NOW) 2023-09-15 18:27:00 Malena Garcia [facility] BASIC METABOLIC PANEL (NA, K, CL, CO2, GLUCOSE, BUN, CREATININE, CA) 2023-09-03 10:22:00 Jarrod Mercado [facility] CBC WITH DIFF 2023-09-03 10:22:00 Jarrod Mercado [facility] BASIC METABOLIC PANEL (NA, K, CL, CO2, GLUCOSE, BUN, CREATININE, CA) 2023-09-03 10:22:00 Jarrod Mercado [facility] CBC WITH DIFF 2023-09-03 10:22:00 Jarrod Mercado [facility] LAPAROSCOPIC TOTAL ABDOMINAL HYSTERECTOMY 2023-09-02 21:56:00 Jarrod Mercado [facility] CYSTOSCOPY 2023-09-02 21:56:00 Jarrod Mercado [facility] SALPINGECTOMY 2023-09-02 21:56:00 Jarrod Mercado [facility] LAPAROSCOPIC TOTAL ABDOMINAL HYSTERECTOMY 2023-09-02 21:56:00 Jarrod Mercado [facility] CYSTOSCOPY 2023-09-02 21:56:00 Jarrod Mercado [facility] SALPINGECTOMY 2023-09-02 21:56:00 Jarrod Mercado [facility] DAY SURGERY - ADC 2023-09-02 06:01:00 Doctor Shirley ssigned, Mal[place] [facility] TOTAL BETA HCG ASSAY 2023-09-01 14:50:00 Jarrod Mercado [facility] INSURANCE CORRESPONDENCE 2023-08-25 06:01:00 Doc tor Unassigned, [place] [facility] INSURANCE CORRESPONDENCE 2023-08-21 06:01:00 Doc tor Unassigned, [place] [facility] CBC WITH DIFF 2023-08-19 23:12:00 Cheikh Boyle [facility] SARS-COV-2 COVID 19 ALLY SUCROSE VACCINE 12+, , 0.3 ML (30 MCG), IM PFIZER (TRAN TOP) 2023-08-19 22:08:51 Cheikh Boyle [facility] DSU PRE-OP 2023-08-14 06:01:00 Doctor Unass igned, [place] [facility] US PELVIS COMPLETE WITH TRANSVAGINAL 2023-07-30 16:55:00 Jarrod Mercado [facility] POCT TEST 2023-07-30 00:00:00 Jarrod Mercado [facility] POCT TEST 2023-07-23 00:00:00 Jarrod Mercado [facility] POCT MOLECULAR STREP 2023-07-09 21:56:00 Unknown, Atte wale [facility] CBC WITH DIFF 2023-07-01 19:02:00 Taiwo Wharton [facility] PROTHROMBIN TIME / INR 2023-07-01 19:02:00 Silverio Wahrton [facility] CT ABDOMEN PELVIS W CONTRAST 2023-06-29 07:44:14 Arianna Whitmore [facility] URINALYSIS 2023-06-29 05:56:00 Arianna Whitmore [facility] LIPASE 2023-06-29 05:51:00 Arianna Whitmore [facility] TROPONIN I 2023-06-29 05:51:00 Arianna Whitmore [facility] COMP. METABOLIC PANEL ([id number]) 2023-06-29 05:51:00 Arianna Whitmore [facility] CBC WITH DIFF 2023-06-29 05:51:00 Arianna Whitmore [facility] D-DIMER 2023-06-29 05:51:00 Arianna Whitmore [facility] RAPID INFLUENZA A/B 2023-06-29 05:51:00 Arianna Whitmore [facility] COVID-19 (ID NOW RAPID TESTING) 2023-06-29 05:51:00 Arianna Whitmore [facility] ASSIGNMENT OF BENEFITS 2023-06-29 04:31:47 Docto r Unassigned, [place] [facility] CONSENT/REFUSAL FOR DIAGNOSIS AND TREATMENT 2023-06-29 03:52:07 Doctor Unassigned, [place] [facility] US LIVER 2023-06-15 15:16:11 Cheikh Boyle [facility] CONSENT/REFUSAL FOR DIAGNOSIS AND TREATMENT 2023-06-11 05:01:00 Doctor Unassigned, [place] [facility] NO SHOW OR MISSED APPOINTMENT POLICY ACKNOWLEDGEMENT 2023-06-11 05:01:00 Doctor Unassigned, [place] [facility] POCT MOLECULAR FLU 2023-05-22 21:09:00 Unknown, Attend [facility] POCT SARS-COV-2 ANTIGEN (BINAX NOW) 2023-05-22 21:01:00 Sera Worthy [facility] INSURANCE CORRESPONDENCE 2023-05-18 05:01:00 Doc tor Unassigned, [place] [facility] TRANSTHORACIC ECHO (TTE) COMPLETE 2023-05-15 15:04:27 Nicanor Hall [facility] INSURANCE CORRESPONDENCE 2023-05-13 05:01:00 Doc tor Unassigned, [place] [facility] EXTERNAL PROVIDER RECORDS 2023-04-14 05:01:00 Do ctor Unassigned, [place] [facility] POCT SARS-COV-2 ANTIGEN (BINAX NOW) 2023-04-03 20:55:00 Sera Worthy [facility] POCT SARS-COV-2 ANTIGEN (BINAX NOW) 2023-03-20 21:30:00 Sera Worthy [facility] ASSIGNMENT OF BENEFITS 2023-02-02 20:09:30 Danielle r Unassigned, [place] [facility] POCT TEST 2023-02-02 00:00:00 Ernesto Smith [facility] XR HAND 3+ VW LEFT 2022-08-05 00:55:28 Nii Abraham [facility] CONSENT/REFUSAL FOR DIAGNOSIS AND TREATMENT 2022-08-04 23:55:33 Doctor Unassigned, [place] [facility] XR FINGERS 2 VW LEFT 2022-05-12 15:57:11 Ciarra Frank [facility] XR WRIST 3+ VW LEFT 2022-05-12 15:57:11 Ciarra Frank [facility] CONSENT/REFUSAL FOR DIAGNOSIS AND TREATMENT 2022-05-12 14:32:26 Doctor Unassigned, [place] [facility] CONSENT/REFUSAL FOR DIAGNOSIS AND TREATMENT 2022-03-24 14:06:23 Doctor Unassigned, [place] [facility] PELVIS COMPLETE NON-OB 2022-02-18 01:07:39 Natalie Almendarez [facility] CT ABDOMEN PELVIS W CONTRAST 2022-02-18 00:35:22 Natalie Almendarez [facility] POCT TEST 2022-02-18 00:22:00 Natalie Almendarez [facility] TEST, SERUM 2022-02-18 00:21:00 Elida Almendarez [facility] COMP. METABOLIC PANEL ([id number]) 2022-02-18 00:21:00 Natalie Almendarez [facility] CBC WITH DIFF 2022-02-18 00:21:00 Natalie Almendarez [facility] URINALYSIS 2022-02-18 00:21:00 Natalie Almendarez [facility] CONSENT/REFUSAL FOR DIAGNOSIS AND TREATMENT 2022-02-17 23:21:20 Doctor Unassigned, [place] [facility] SARS-COV-2 COVID-19 VACCINE BOOSTER,0.25ML,IM (MODERNA) 2022-01-23 19:36:51 Doctor Unassigned, [place] [facility] US OVARY TORSION 2021-11-24 08:01:43 Arianna Whitmore [facility] CT ABDOMEN PELVIS W CONTRAST 2021-11-24 04:24:09 Arianna Whitmore [facility] POCT TEST 2021-11-24 03:18:00 Arianna Whitmore [facility] LIPASE 2021-11-24 03:17:00 Airanna Whitmore [facility] COMP. METABOLIC PANEL ([id number]) 2021-11-24 03:17:00 Arianna Whitmore [facility] CBC WITH DIFF 2021-11-24 03:17:00 Arianna Whitmore [facility] URINALYSIS 2021-11-24 03:17:00 Arianna Whitmore [facility] NOTICE OF PRIVACY PRACTICES 2021-11-24 02:50:34 Doctor Unassigned, [facility] CONSENT/REFUSAL FOR DIAGNOSIS AND TREATMENT 2021-11-24 02:50:13 Doctor Unassigned, [facility] Encounters Start Date/Time End Date/Time Encounter Type Admission Type Attending Clinicians Care Facility Care Department Encounter ID Source 2021-06-10 21:56:33 Emergency [facility] [id number] [facility] 2021-06-10 11:43:59 Emergency [facility] [id number] [facility] 2021-06-10 11:18:46 Emergency [facility] [place] [id number] [facility] 2021-06-10 09:58:36 Emergency [facility] [place] [id number] [facility] 2021-06-09 00:40:14 Emergency [facility] [place] [id number] [facility] 2021-06-08 04:28:04 Emergency [facility] [place] [id number] [facility] 2021-06-07 16:30:58 Emergency [facility] [place] [id number] [facility] 2021-06-06 17:46:29 Emergency [facility] [place] [id number] [facility] 2023-12-10 13:00:00 2023-12-10 13:00:00 Outpatient R CHEIKH BOYLE [facility] [place] [id number] [facility] 2023-10-19 00:00:00 2023-10-19 00:00:00 Telephone Jarrod Mercado [facility] BUILDING 1.2.840.114 350.1.13.10 4.2.7.2.686 [id number] [facility] 2023-09-30 10:45:00 2023-09-30 10:45:00 Outpatient R JARROD MERCADO [facility] [place] [id number] [facility] 2023-09-24 00:00:00 2023-09-24 00:00:00 Telephone Promise Cabezas [facility] 1..840.114 350.1.13.10 4.2.7.2.686 [id number] [facility] 2023-09-17 13:15:00 2023-09-17 13:30:00 Office Visit Jarrod Mercado [facility] 1..840.114 350.1.13.10 4.2.7.2.686 [id number] [facility] 2023-09-17 13:15:00 2023-09-17 13:15:00 Outpatient R JARROD MERCADO [facility] [place] [id number] [facility] 2023-09-16 00:00:00 2023-09-16 00:00:00 Telephone Malena Garcia [facility] 1..840.114 350.1.13.10 4.2.7.2.686 [id number] [facility] 2023-09-15 12:00:00 2023-09-15 13:07:33 Outpatient R MALENA GARCIA [facility] [place] [id number] [facility] 2023-09-15 12:00:00 2023-09-15 12:20:00 Urgent Care Malena Garcia Unknown, Attending [facility] 1.2.840.114 350.1.13.10 4.2.7.2.686 [id number] [facility] 2023-09-08 00:00:00 2023-09-08 00:00:00 Case Management Jarrod Mercado [facility] BUILDING 1.2.840.114 350.1.13.10 4.2.7.2.686 [id number] [facility] 2023-09-07 00:00:00 2023-09-07 00:00:00 Patient Secure Msg Doctor Unassigned, Maloy [facility] 1.2.840.114 350.1.13.10 4.2.7.2.686 [id number] 134 [id number] [facility] 2023-09-04 00:00:00 2023-09-04 00:00:00 Telephone LucioJarrod [facility] BUILDING 1.2.840.114 350.1.13.10 4.2.7.2.686 [id number] 134 [id number] [facility] 2023-09-02 13:20:00 2023-09-03 08:40:00 Outpatient R JARROD MERCADO [facility] 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 [id number] [facility] 2023-09-02 13:20:00 2023-09-03 08:40:00 Hospital Encounter Jarrod Mercado [facility] 1.2.840.114 350.1.13.10 4.2.7.2.686 [id number] [id number] [facility] 2023-09-03 00:00:00 2023-09-03 00:00:00 Telephone Jarrod Mercado [facility] BUILDING 1.2.840.114 350.1.13.10 4.2.7.2.686 [id number] 134 [id number] [facility] 2023-09-02 12:41:00 2023-09-02 17:07:00 Surgery Jarrod Mercado [facility] 1.2.840.114 350.1.13.10 4.2.7.2.686 [id number] [id number] [facility] 2023-09-02 00:00:00 2023-09-02 00:00:00 Orders Only Doctor Unassigned, Maloy [facility] 1.2.840.114 350.1.13.10 4.2.7.2.686 [id number] [facility] 2023-09-01 13:00:00 2023-09-01 13:20:00 Office Visit Troy Khan [facility] 1.2840.114 350.1.13.10 4.2.7.2.686 [id number] 044 [id number] [facility] 2023-09-01 13:00:00 2023-09-01 13:00:00 Outpatient R OBTROY SON [facility] [id number] [facility] 2023-09-01 09:15:00 2023-09-01 09:30:00 Front Maker Visit Pob, Adc Lab Main Jarrod Mercado [facility] BUILDING 1.2840.114 350.1.13.10 4.2.7.2.686 [id number] [facility] 2023-09-01 00:00:00 2023-09-01 00:00:00 Telephone Jarrod Mercado [facility] 1.2840.114 350.1.13.10 4.2.7.2.686 [id number] [facility] 2023-08-28 00:00:00 2023-08-28 00:00:00 Telephone Promise Cabezas [facility] 1.2840.114 350.1.13.10 4.2.7.2.686 [id number] [id number] [facility] 2023-08-26 13:00:00 2023-08-26 13:15:40 [facility] [id number] [facility] 2023-08-26 13:00:00 2023-08-26 13:15:40 [facility] 1.84.114 350.1.13.10 4.2.7.2.686 [id number] [facility] 2023-08-25 00:00:00 2023-08-25 00:00:00 Orders Only Doctor Unassigned, Maloy [facility] 1.20.114 350.1.13.10 4.2.7.2.686 [id number] [facility] 2023-08-21 00:00:00 2023-08-21 00:00:00 Orders Only Doctor Unassigned, Maloy [facility] 1.2840.114 350.1.13.10 4.2.7.2.686 [id number] [facility] 2023-08-20 00:00:00 2023-08-20 00:00:00 Telephone Cheikh Boyle [facility] 1.840.114 350.1.13.10 4.2.7.2.686 [id number] 044 [id number] [facility] 2023-08-19 16:30:00 2023-08-19 16:45:00 Front Maker Visit Pob, Adc Lab Main [facility] BU[facility] 1.2840.114 350.1.13.10 4.2.7.2.686 [id number] [facility] 2023-08-19 15:00:00 2023-08-19 16:36:17 Outpatient R CHEIKH BOYLE [facility] [place] [id number] [facility] 2023-08-19 15:00:00 2023-08-19 16:36:17 Office [facility] BU[facility] 1.840.114 350.1.13.10 4.2.7.2.686 [id number] 044 [id number] [facility] 2023-08-14 00:00:00 2023-08-14 00:00:00 Orders Only Doctor Unassigned, Maloy [facility] 1..114 350.1.13.10 4.2.7.2.686 [id number] [facility] 2023-08-13 14:00:00 2023-08-13 15:13:42 Outpatient R JARROD MERCADO [facility] [place] [id number] [facility] 2023-08-13 14:00:00 2023-08-13 15:13:42 Office Visit Jarrod Mercado [facility] 1.840.114 350.1.13.10 4.2.7.2.686 [id number] 134 [id number] [facility] 2023-08-12 15:30:00 2023-08-12 15:30:00 Outpatient R TAIWO WHARTON [facility] [place] [id number] [facility] 2023-08-12 00:00:00 2023-08-12 00:00:00 Telephone Promise Cabezas [facility] 1..114 350.1.13.10 4.2.7.2.686 [id number] 072 [id number] [facility] 2023-07-30 10:24:56 2023-07-30 23:59:00 Hospital Encounter Jarrod Mercado [facility] 1.2.840.114 350.1.13.10 4.2.7.2.686 [id number] [facility] 2023-07-30 15:00:00 2023-07-30 15:36:01 Outpatient R MERCADO JARROD [facility] [place] [id number] [facility] 2023-07-30 15:00:00 2023-07-30 15:36:01 Office Visit Jarrod Mercado [facility] 1.2.840.114 350.1.13.10 4.2.7.2.686 [id number] 134 [id number] [facility] 2023-07-24 00:00:00 2023-07-24 00:00:00 Case [facility] [place] [facility] 1.2.840.114 350.1.13.10 4.2.7.2.686 [id number] 072 [id number] [facility] 2023-07-24 00:00:00 2023-07-24 00:00:00 Telephone Prem [facility] 1.2.840.114 350.1.13.10 4.2.7.2.686 [id number] 072 [id number] [facility] 2023-07-24 00:00:00 2023-07-24 00:00:[address] [facility] 1.2.840.114 350.1.13.10 4.2.7.2.686 [id number] 072 [id number] [facility] 2023-07-23 08:00:00 2023-07-23 09:04:50 Outpatient R JARROD MERCADO [facility] [place] [id number] [facility] 2023-07-23 08:00:00 2023-07-23 09:04:50 Office Visit Jarrod Mercado [facility] BU[facility] 1..840.114 350.1.13.10 4.2.7.2.686 [id number] 134 [id number] [facility] 2023-07-23 00:00:00 2023-07-23 00:00:00 Prep For Surgery Jarrod Mercado [facility]ILD[facility] 1.2840.114 350.1.13.10 4.2.7.2.686 [id number] 134 [id number] [facility] 2023-07-23 00:00:00 2023-07-23 00:00:00 Telephone Prem [facility] [place] [facility] 1.840.114 350.1.13.10 4.2.7.2.686 [id number] [id number] [facility] 2023-07-22 15:00:00 2023-07-22 15:00:00 Outpatient R [facility] [id number] [facility] 2023-07-22 00:00:00 2023-07-22 00:00:00 Telephone Jarrod Mercado [facility] BUILDING 1.840.114 350.1.13.10 4.2.7.2.686 [id number] [facility] 2023-07-10 00:00:00 2023-07-10 00:00:00 Case Management Prem [facility] [place] [facility] 1.840.114 350.1.13.10 4.2.7.2.686 [id number] 072 [id number] [facility] 2023-07-09 16:00:00 2023-07-09 16:20:00 Urgent Care Sera Worthy Unknown, Attending [facility] 1.84.114 350.1.13.10 4.2.7.2.686 [id number] [facility] 2023-07-09 16:00:00 2023-07-09 16:00:00 Outpatient R FRANNIE SMITH [facility] [place] [id number] [facility] 2023-07-01 13:00:00 2023-07-01 13:15:00 Front Maker Visit Lab, [facility] 1.840.114 350.1.13.10 4.2.7.2.686 [id number] [facility] 2023-07-01 13:00:00 2023-07-01 13:00:00 [facility] [id number] 2023-07-01 12:30:00 2023-07-01 12:39:11 Office Visit Taiwo Wharton [facility] [place] [facility] 1..840.114 350.1.13.10 4.2.7.2.686 [id number] [id number] [facility] 2023-06-29 15:00:00 2023-06-29 15:00:00 Outpatient R OBI-FLOR , TROY OBI-FLOR , TROY [facility] [place] [id number] [facility] 2023-06-28 22:11:00 2023-06-29 02:54:00 Emergency X CINDIFANNYHILARYARIANNA [facility] ERT [id number] [facility] 2023-06-28 22:11:00 2023-06-29 02:54:00 Emergency CindifannyhilaryArianna [facility] 1..840.114 350.1.13.10 4.2.7.2.686 [id number] [facility] 2023-06-24 14:00:00 2023-06-24 14:00:00 Outpatient R OBI-FLOR , TROY OBI-FLOR , TROY [facility] [place] [id number] [facility] 2023-06-23 08:40:00 2023-06-23 08:40:00 Outpatient R OBI-FLOR , TROY OBI-FLOR , TROY [facility] [place] [id number] [facility] 2023-06-23 00:00:00 2023-06-23 00:00:00 Telephone [facility] 1.2.840.114 350.1.13.10 4.2.7.2.686 [id number] [facility] 2023-06-22 00:00:00 2023-06-22 00:00:00 Patient Secure Msg Nicanor Hall [facility] 1.2.840.114 350.1.13.10 4.2.7.2.686 [id number] [id number] [facility] 2023-06-18 11:20:00 2023-06-18 11:20:00 Outpatient R OBI-FLOR , TROY OBI-FLOR , TROY [facility] [place] [id number] [facility] 2023-06-15 08:52:22 2023-06-15 23:59:00 Outpatient R CHEIKH BOYLE [facility] [place] [id number] [facility] 2023-06-15 08:52:22 2023-06-15 23:59:00 Hospital Encounter Cheikh Boyle [facility] .2.840.114 350.1.13.10 4.2.7.2.686 [id number] [facility] 2023-06-15 00:00:00 2023-06-15 00:00:00 Patient Secure Cheikh Boyle [facility] 1.2.840.114 350.1.13.10 4.2.7.2.686 [id number] [facility] 2023-06-11 14:00:00 2023-06-11 15:36:52 [facility] [id number] [facility] 2023-06-11 14:00:00 2023-06-11 15:36:52 Ancillary Visit Therapist, Adc Pulmonary Ambrocio Hallearlene [facility]ILD[facility] 1.2840.114 350.1.13.10 4.2.7.2.686 [id number] [facility] 2023-06-11 00:00:00 2023-06-11 00:00:00 Patient Secure Msg Araceli [facility] BUILDING 1.2.840.114 350.1.13.10 4.2.7.2.686 [id number] 044 [id number] [facility] 2023-06-10 00:00:00 2023-06-10 00:00:00 Refill Cheikh Boyle [facility] 1.2.840.114 350.1.13.10 4.2.7.2.686 [id number] [id number] [facility] 2023-06-03 00:00:00 2023-06-03 00:00:00 Patient Secure Msg Cheikh Boyle [facility] 1.2.840.114 350.1.13.10 4.2.7.2.686 [id number] [id number] [facility] 2023-06-01 00:00:00 2023-06-01 00:00:00 Telephone Kimberly Guajardo [facility] 1.2.840.114 350.1.13.10 4.2.7.2.686 [id number] [facility] 2023-05-22 15:40:00 2023-05-22 16:43:37 Outpatient R SERA WORTHY [facility] [place] [id number] [facility] 2023-05-22 15:40:00 2023-05-22 16:43:37 Urgent Care Sera Worthy Unknown, Attending [facility] 1.2.840.114 350.1.13.10 4.2.7.2.686 [id number] [facility] 2023-05-21 00:00:00 2023-05-21 00:00:00 Telephone Kimberly Guajardo [facility] 1.2.840.114 350.1.13.10 4.2.7.2.686 [id number] [facility] 2023-05-19 00:00:00 2023-05-19 00:00:00 Telephone Cheikh Boyle [facility] 1..840.114 350.1.13.10 4.2.7.2.686 [id number] 044 [id number] [facility] 2023-05-18 00:00:00 2023-05-18 00:00:00 Telephone Kimberly Guajardo [facility] 1..840.114 350.1.13.10 4.2.7.2.686 [id number] [facility] 2023-05-18 00:00:00 2023-05-18 00:00:00 Orders Only Doctor Unassigned, Maloy [facility] 1.284.114 350.1.13.10 4.2.7.2.686 [id number] [facility] 2023-05-17 00:00:00 2023-05-17 00:00:00 Patient Secure Nicanor Downs [facility] 1.2.840.114 350.1.13.10 4.2.7.2.686 [id number] 059 [id number] [facility] 2023-05-15 10:00:59 2023-05-15 23:59:00 Outpatient [facility] [id number] [facility] 2023-05-15 10:00:59 2023-05-15 23:59:00 Hospital Encounter Ambrocio Hallearlene [facility] 1.2.840.114 350.1.13.10 4.2.7.2.686 [id number] [facility] 2023-05-15 08:46:23 2023-05-15 09:59:00 [facility] 1.2.840.114 350.1.13.10 4.2.7.2.686 [id number] [facility] 2023-05-14 00:00:00 2023-05-14 00:00:00 Frannie Boston [facility] 1.2.840.114 350.1.13.10 4.2.7.2.686 [id number] [facility] 2023-05-13 11:20:00 2023-05-13 11:20:00 Office Visit Ambrocio Hallearlene [facility] 1.2.840.114 350.1.13.10 4.2.7.2.686 [id number] [facility] 2023-05-13 10:45:00 2023-05-13 11:00:00 Front Maker Visit 2, Adc Lab Cheikh Boyle [facility]ILD[facility] 1.2.840.114 350.1.13.10 4.2.7.2.686 [id number] [facility] 2023-05-13 08:20:00 2023-05-13 10:20:16 Outpatient R CHEIKH BOYLE [facility] [place] [id number] [facility] 2023-05-13 08:20:00 2023-05-13 10:20:16 Office Visit Cheikh Boyle [facility] 1.2840.114 350.1.13.10 4.2.7.2.686 [id number] [id number] [facility] 2023-05-13 00:00:00 2023-05-13 00:00:00 RefFrannie Peterson [facility] 1.2.84.114 350.1.13.10 4.2.7.2.686 [id number] [facility] 2023-05-13 00:00:00 2023-05-13 00:00:00 Case Management Red Cramer [facility] 1.84.114 350.1.13.10 4.2.7.2.686 [id number] [id number] [facility] 2023-05-13 00:00:00 2023-05-13 00:00:00 Telephone Cheikh Boyle [facility] 1.2.840.114 350.1.13.10 4.2.7.2.686 [id number] [facility] 2023-05-13 00:00:00 2023-05-13 00:00:00 Patient Secure Msg Frannie Smith [facility] 1.2.84.114 350.1.13.10 4.2.7.2.686 [id number] [facility] 2023-05-13 00:00:00 2023-05-13 00:00:00 Patient Secure Msg Doctor Unassigned, Maloy [facility] 1.2840.114 350.1.13.10 4.2.7.2.686 [id number] [facility] 2023-05-13 00:00:00 2023-05-13 00:00:00 Patient Secure Msg Cheikh Boyle [facility] 1.2840.114 350.1.13.10 4.2.7.2.686 [id number] 044 [id number] [facility] 2023-05-13 00:00:00 2023-05-13 00:00:00 Orders Only Doctor Unassigned, Maloy [facility] 1.2840.114 350.1.13.10 4.2.7.2.686 [id number] [facility] 2023-05-12 00:00:00 2023-05-12 00:00:00 Patient Secure Msg Jenniemeredith Cheikh [facility] 1.20.114 350.1.13.10 4.2.7.2.686 [id number] [id number] [facility] 2023-05-08 10:40:00 2023-05-08 10:40:00 Outpatient R JENNIEDEDECHEIKH HOLDER [facility] [id number] [facility] 2023-05-08 00:00:00 2023-05-08 00:00:00 Patient Secure Msg Jenniemeredith Cheikh [facility] 1.2840.114 350.1.13.10 4.2.7.2.686 [id number] [id number] [facility] 2023-05-07 00:00:00 2023-05-07 00:00:00 Telephone Araceli Cheikh [facility] 1.2840.114 350.1.13.10 4.2.7.2.686 [id number] 044 [id number] [facility] 2023-05-04 00:00:00 2023-05-04 00:00:00 Patient Secure Msg Doctor Unassigned, Maloy [facility] 1.2.840.114 350.1.13.10 4.2.7.2.686 [id number] [facility] 2023-05-01 00:00:00 2023-05-01 00:00:00 Patient Secure Msg Doctor Unassigned, Maloy [facility] 1.2.840.114 350.1.13.10 4.2.7.2.686 [id number] [facility] 2023-04-29 15:30:00 2023-04-29 15:38:38 Outpatient R SARAH [facility] [id number] [facility] 2023-04-29 15:30:00 2023-04-29 15:38:38 Nurse Visit Nurse, [facility] 1.2.840.114 350.1.13.10 4.2.7.2.686 [id number] [facility] 2023-04-29 00:00:00 2023-04-29 00:00:00 Patient Secure Msg JenniededeCheikh holder [facility] 1.2.840.114 350.1.13.10 4.2.7.2.686 [id number] [id number] [facility] 2023-04-29 00:00:00 2023-04-29 00:00:00 Telephone Cheikh Boyle [facility] 1.2.840.114 350.1.13.10 4.2.7.2.686 [id number] 044 [id number] [facility] 2023-04-28 00:00:00 2023-04-28 00:00:00 Isa Bostoncy [facility] 1.2.840.114 350.1.13.10 4.2.7.2.686 [id number] 134 [id number] [facility] 2023-04-21 00:00:00 2023-04-21 00:00:00 Telephone CarlosCheikh will [facility] 1.2.840.114 350.1.13.10 4.2.7.2.686 [id number] 044 [id number] [facility] 2023-04-20 00:00:00 2023-04-20 00:00:00 Patient Secure Msg Carlosnicolette Cheikh [facility] 1.2.840.114 350.1.13.10 4.2.7.2.686 [id number] 044 [id number] [facility] 2023-04-14 00:00:00 2023-04-14 00:00:00 Orders Only Doctor Unassigned, Maloy [facility] 1.2.840.114 350.1.13.10 4.2.7.2.686 [id number] [facility] 2023-04-14 00:00:00 2023-04-14 00:00:00 Telephone NickCheikh holder [facility] 1.2.840.114 350.1.13.10 4.2.7.2.686 [id number] 044 [id number] [facility] 2023-04-10 00:00:00 2023-04-10 00:00:00 Telephone Araceli Cheikh [facility] 1.2.840.114 350.1.13.10 4.2.7.2.686 [id number] 044 [id number] [facility] 2023-04-04 15:40:00 2023-04-04 15:40:00 Outpatient R [facility] [place] [id number] [facility] 2023-04-04 15:00:00 2023-04-04 15:00:00 Outpatient R UNKNOWN, ATTENDING [facility] [place] [id number] [facility] 2023-04-03 15:40:00 2023-04-03 16:07:45 Outpatient R SERA WORTHY [facility] [place] [id number] [facility] 2023-04-03 15:40:00 2023-04-03 16:00:00 Urgent Care Srea Worthy Unknown, Attending [facility] 1..840.114 350.1.13.10 4.2.7.2.686 [id number] [facility] 2023-04-03 15:45:00 2023-04-03 15:45:00 Outpatient R UNKNOWN, ATTENDING [facility] [place] [id number] [facility] 2023-04-02 00:00:00 2023-04-02 00:00:00 Patient Secure Msg Doctor Unassigned, Maloy [facility] 1..840.114 350.1.13.10 4.2.7.2.686 [id number] 134 [id number] [facility] 2023-04-01 13:40:00 2023-04-01 14:40:45 Outpatient R CHEIKH BOYLE [facility] [place] [id number] [facility] 2023-04-01 13:40:00 2023-04-01 14:40:45 Office Visit Cheikh Boyle [facility] 1..840.114 350.1.13.10 4.2.7.2.686 [id number] 044 [id number] [facility] 2023-04-01 00:00:00 2023-04-01 00:00:00 Case Management Jarrod Mercado [facility] 1..840.114 350.1.13.10 4.2.7.2.686 [id number] 134 [id number] [facility] 2023-04-01 00:00:00 2023-04-01 00:00:00 Patient Secure Cheikh Cummings [facility] 1.2840.114 350.1.13.10 4.2.7.2.686 [id number] 044 [id number] [facility] 2023-03-31 00:00:00 2023-03-31 00:00:00 Letter (Out) Sabiha Vargsa [facility] 1..114 350.1.13.10 4.2.7.2.686 [id number] [id number] [facility] 2023-03-30 13:00:00 2023-03-30 13:53:48 Outpatient R JARROD MERCADO [facility] [place] [id number] [facility] [facility]30 13:00:00 2023-03-30 13:53:48 Office Visit Jarrod Mercado [facility] 1.84.114 350.1.13.10 4.2.7.2.686 [id number] [facility] 2023-03-30 10:00:00 2023-03-30 10:23:54 Laboratory Only Only, Ang Db Test Unknown, Attending [facility] MEDICAL OFFICE BUILD[facility] 1.84.114 350.1.13.10 4.2.7.2.686 [id number] [facility] 2023-03-30 00:00:00 2023-03-30 00:00:00 Letter (Out) Jose [facility] FELICIANO?[facility] OFFICE BUILDING 1.284.114 350.1.13.10 4.2.7.2.686 [id number] [facility] 2023-03-30 00:00:00 2023-03-30 00:00:00 Refill Blanka Moss [facility] 1.2.840.114 350.1.13.10 4.2.7.2.686 [id number] [facility] 2023-03-27 00:00:00 2023-03-27 00:00:00 Refill Frannie Smith [facility] 1.2.840.114 350.1.13.10 4.2.7.2.686 [id number] [facility] 2023-03-27 00:00:00 2023-03-27 00:00:00 Refill Cheikh Boyle [facility] 1.2.840.114 350.1.13.10 4.2.7.2.686 [id number] [facility] 2023-03-27 00:00:00 2023-03-27 00:00:00 Refill Cheikh Boyle [facility] 1.2.840.114 350.1.13.10 4.2.7.2.686 [id number] [facility] 2023-03-25 00:00:00 2023-03-25 00:00:00 Patient Secure Msg SarahFrannie [facility] 1.2.840.114 350.1.13.10 4.2.7.2.686 [id number] [facility] 2023-03-24 00:00:00 2023-03-24 00:00:00 Telephone SravanFrannie camilo [facility] 1.2.840.114 350.1.13.10 4.2.7.2.686 [id number] [facility] 2023-03-21 00:00:2023-03-21 00:00:00 Telephone Ida Kimmy M [facility] 1.840.114 350.1.13.10 4.2.7.2.686 [id number] [facility] 2023-03-20 15:40:00 2023-03-20 16:35:15 Urgent Care TommySera londono Flaco, Attending [facility] 1..840.114 350.1.13.10 4.2.7.2.686 [id number] [facility] 2023-03-20 16:00:00 2023-03-20 16:00:00 Outpatient R FLACO, SULEIMAN [facility] [id number] [facility] 2023-02-27 14:40:00 2023-02-27 14:40:00 Outpatient R CHEIKH BOYLE [facility] [id number] [facility] 2023-02-18 00:00:00 2023-02-18 00:00:00 Patient Secure Msg Doctor Unassigned, Maloy [facility] 1.840.114 350.1.13.10 4.2.7.2.686 [id number] [facility] 2023-02-11 11:20:00 2023-02-11 11:20:00 Outpatient R CHEIKH BOYLE [facility] [id number] [facility] 2023-02-04 00:00:00 2023-02-04 00:00:00 Telephone Frannie Smith [facility] 1..840.114 350.1.13.10 4.2.7.2.686 [id number] [facility] 2023-02-03 00:00:00 2023-02-03 00:00:00 Patient Secure Msg Sarah [facility] BUILDING 1..840.114 350.1.13.10 4.2.7.2.686 [id number] [facility] 2023-02-03 00:00:00 2023-02-03 00:00:00 Patient Secure Frannie Orellana [facility] 1.2.840.114 350.1.13.10 4.2.7.2.686 [id number] [facility] 2023-02-02 16:15:00 2023-02-02 16:30:00 Front Maker Visit Pob, Adc Lab Main Sarah [facility] 1.2.840.114 350.1.13.10 4.2.7.2.686 [id number] [facility] 2023-02-02 15:45:00 2023-02-02 16:15:00 Office Visit SravanfrancoisFrannie castillo [facility] 1.2.840.114 350.1.13.10 4.2.7.2.686 [id number] [facility] 2023-02-02 15:45:00 2023-02-02 16:02:01 Outpatient FRANNIE JIMENEZ [facility] [id number] [facility] 2023-02-02 00:00:00 2023-02-02 00:00:00 Orders Only Doctor Unassigned, Maloy [facility] 1.2.840.114 350.1.13.10 4.2.7.2.686 [id number] [facility] 2023-01-07 09:45:00 2023-01-07 09:45:00 Outpatient FRANNIE JIMENEZ [facility] [id number] [facility] 2023-01-06 15:20:00 2023-01-06 15:20:00 Outpatient CHEIKH LIZAMA [facility] [id number] [facility] 2022-08-16 11:30:00 2022-08-16 11:47:21 Outpatient Sona CORTEZ CAMELIA [facility] [id number] [facility] 2022-08-16 11:30:00 2022-08-16 11:45:00 Laboratory Only Only, Ang Db Test Unknown, Attending [facility] 1..840.114 350.1.13.10 4.2.7.2.686 [id number] [facility] 2022-08-04 18:18:00 2022-08-04 20:38:00 Emergency X NII BONILLA [facility] ERT [id number] [facility] 2022-08-04 18:18:00 2022-08-04 20:38:00 Emergency Nii Bonilla [facility] 1..840.114 350.1.13.10 4.2.7.2.686 [id number] [facility] 2022-05-12 09:39:00 2022-05-12 12:15:00 Emergency X CIARRA FRANK [facility] ERT [id number] [facility] 2022-05-12 09:39:00 2022-05-12 12:15:00 Emergency Ciarra Frank S [facility] ..840.114 350.1.13.10 4.2.7.2.686 [id number] [facility] 2022-04-29 09:30:00 2022-04-29 09:30:00 Outpatient FRANNIE JIMENEZ [facility] [id number] [facility] 2022-04-23 14:30:00 2022-04-23 14:30:00 Outpatient FRANNIE JIMENEZ [facility] [id number] [facility] 2022-04-22 11:15:00 2022-04-22 11:15:00 Outpatient FRANNIE JIMENEZ [facility] [id number] [facility] 2022-04-08 10:00:00 2022-04-08 10:00:00 Outpatient R ADELINE WILLIAM [facility] [id number] [facility] 2022-04-03 08:30:00 2022-04-03 08:30:00 Outpatient R SARAHFRANNIE [facility] [id number] [facility] 2022-03-24 09:13:00 2022-03-24 09:37:00 Emergency X GARY KEATINGANNE [facility] ERT [id number] [facility] 2022-03-24 09:13:00 2022-03-24 09:37:00 Emergency Lizandro Keating [facility] 1..840.114 350.1.13.10 4.2.7.2.686 [id number] [facility] 2022-02-21 00:00:00 2022-02-21 00:00:00 Outpatient R ANDREABRITTANY [facility] [id number] [facility] 2022-02-20 15:30:00 2022-02-20 15:30:00 Outpatient R SEANJAN [facility] [id number] [facility] 2022-02-18 14:30:00 2022-02-18 14:30:00 Outpatient R SARAHFRANNIE [facility] [id number] [facility] 2022-02-17 18:40:00 2022-02-17 21:13:00 Emergency X ELIDA ALMENDAREZN [facility] ERT [id number] [facility] 2022-02-17 18:40:00 2022-02-17 21:13:00 Emergency Natalie Almendarez R [facility] 1..840.114 350.1.13.10 4.2.7.2.686 [id number] [facility] 2022-02-17 18:15:00 2022-02-17 18:35:00 Nurse Visit Nurse, Aurelio Flores [facility] Lashanda Bowertany [facility] BUILD[facility] 1.840.114 350.1.13.10 4.2.7.2.686 [id number] [facility] 2022-02-17 18:15:00 2022-02-17 18:15:00 Outpatient R LASHANDA BOWERTANY [facility] [id number] [facility] 2022-01-28 15:30:00 2022-01-28 15:30:00 Outpatient R SEAN JAN [facility] [id number] [facility] 2022-01-27 00:00:00 2022-01-27 00:00:00 Letter (Out) Xochitl Kaur [facility] 1.840.114 350.1.13.10 4.2.7.2.686 [id number] [facility] 2022-01-26 13:40:00 2022-01-26 14:06:12 Outpatient R SHANNAN STEWARD [facility] [id number] [facility] 2022-01-26 13:40:00 2022-01-26 14:06:12 Urgent Care Shannan Steward [facility] MEDICAL OFFICE [facility] 1..840.114 350.1.13.10 4.2.7.2.686 [id number] [facility] 2022-01-26 00:00:00 2022-01-26 00:00:00 Letter (Out) Provider, Aurelio Flores Urgent Care [facility] MEDICAL OFFICE BUILDING 1..840.114 350.1.13.10 4.2.7.2.686 [id number] [facility] 2022-01-23 14:00:00 2022-01-23 14:10:00 Imm/Inj Visit Vaccine, Aurelio Flores Cbc Fam Dominic Peralta [facility] 1..840.114 350.1.13.10 4.2.7.2.686 [id number] [facility] 2022-01-23 14:00:00 2022-01-23 14:00:00 Outpatient R DOMINIC PERALTA [facility] [id number] [facility] 2022-01-22 14:40:00 2022-01-22 14:40:00 Outpatient R CHEIKH BOYLE [facility] [id number] [facility] 2021-12-27 00:00:00 2021-12-27 00:00:00 Outpatient R BRITTANY BELCHER [facility] [id number] [facility] 2021-11-28 00:00:00 2021-11-28 00:00:00 Letter (Out) Xochitl Kaur [facility] 1..840.114 350.1.13.10 4.2.7.2.686 [id number] [facility] 2021-11-27 15:15:00 2021-11-27 15:30:00 Laboratory Only Only, Ang Db Test [facility] 1..840.114 350.1.13.10 4.2.7.2.686 [id number] [facility] 2021-11-27 15:15:00 2021-11-27 15:15:00 Outpatient R DAVEHayes ISATYLER [facility] [id number] [facility] 2021-11-23 22:04:00 2021-11-24 04:27:00 Emergency X ARIANNA WHITMORE [facility] ERT [id number] [facility] 2021-11-23 22:04:00 2021-11-24 04:27:00 Emergency Arianna Whitmore [facility] 1.2.840.114 350.1.13.10 4.2.7.2.686 [id number] [facility] 2021-11-21 15:30:00 2021-11-21 16:15:19 Office Visit Brittany Belcher [facility] 1.2.840.114 350.1.13.10 4.2.7.2.686 [id number] [facility] 2021-11-21 15:30:00 2021-11-21 16:15:19 Outpatient R BRITTANY BELCHER [facility] [id number] [facility] 2021-11-21 15:30:00 2021-11-21 15:30:00 Outpatient R BRITTANY BELCHER [facility] [id number] [facility] 2021-11-21 00:00:00 2021-11-21 00:00:00 Letter (Out) Brittany Belcher [facility] 1.2.840.114 350.1.13.10 4.2.7.2.686 [id number] [facility] 2021-11-06 07:15:00 2021-11-07 09:35:00 Outpatient X BRITTANY BELCHER [facility] [id number] [facility] 2021-11-06 07:15:00 2021-11-07 09:35:00 Emergency MayerMicheal Brittany Belcher [facility] 1.2.840.114 350.1.13.10 4.2.7.2.686 [id number] [facility] 2021-10-04 00:00:00 2021-10-04 00:00:00 Letter (Out) Xochitl Kaur [facility] 1.2.840.114 350.1.13.10 4.2.7.2.686 [id number] [facility] 2021-10-03 17:20:00 2021-10-03 18:22:13 Outpatient R ZOEY ALEX GAMALIEL [facility] [id number] [facility] 2021-09-19 00:00:00 2021-09-19 00:00:00 Patient Secure Cheikh Cummings [facility] 1.84.114 350.1.13.10 4.2.7.2.686 [id number] [facility] 2021-09-14 20:00:00 2021-09-14 20:59:00 Emergency X FRANKCIARRA [facility] ERT [id number] [facility] 2021-09-14 20:00:00 2021-09-14 20:59:00 Emergency Ciarra Frnak S [facility] 1.84.114 350.1.13.10 4.2.7.2.686 [id number] [facility] 2021-09-09 15:35:00 2021-09-09 17:06:00 Emergency X KARLY Susana [facility] ERT [id number] [facility] 2021-09-09 15:35:00 2021-09-09 17:06:00 Emergency Susana Daniels Sarah [facility] 1.84.114 350.1.13.10 4.2.7.2.686 [id number] [facility] 2021-09-09 00:00:00 2021-09-09 00:00:00 Orders Only Doctor Unassigned, Maloy [facility] 1.114 350.1.13.10 4.2.7.2.686 [id number] [facility] 2021-08-27 11:45:00 2021-08-27 12:00:00 Laboratory Only Only, Ang Db Test Shannan Steward [facility] MEDICAL OFFICE BUILDING 1.2.840.114 350.1.13.10 4.2.7.2.686 [id number] [facility] 2021-08-27 11:45:00 2021-08-27 11:59:56 Outpatient R SHANNAN STEWARD [facility] [id number] [facility] 2021-08-27 00:00:00 2021-08-27 00:00:00 Letter (Out) Provider, Urgent Care Day [facility] MEDICAL OFFICE BUILDING 1.2840.114 350.1.13.10 4.2.7.2.686 [id number] [facility] 2021-08-19 18:20:00 2021-08-19 19:19:45 Outpatient R JOJO MINOR [facility] [id number] [facility] 2021-08-19 18:20:00 2021-08-19 18:40:00 Urgent Care Jojo Minor Malena Garcia [facility] MEDICAL OFFICE BUILDING 1.840.114 350.1.13.10 4.2.7.2.686 [id number] [facility] 2021-08-19 00:00:00 2021-08-19 00:00:00 Orders Only Doctor Unassigned, Maloy [facility] 1.84.114 350.1.13.10 4.2.7.2.686 [id number] [facility] 2021-08-01 10:20:00 2021-08-01 10:40:00 Urgent Care Tomasa William Rania [facility] MEDICAL OFFICE BUILDING 1.840.114 350.1.13.10 4.2.7.2.686 [id number] [facility] 2021-08-01 10:20:00 2021-08-01 10:20:00 Outpatient R SERA WORTHY [facility] [id number] [facility] 2021-06-27 09:00:00 2021-06-27 09:00:00 Outpatient R FRANNIE SMITH [facility] [id number] [facility] 2021-06-09 14:25:24 2021-06-09 14:45:24 Urgent Care Sera Worthy [facility] 1.2.840.114 350.1.13.10 4.2.7.2.686 [id number] [facility] 2021-06-09 14:40:00 2021-06-09 14:40:00 Outpatient SERA MEI [facility] [id number] [facility] 2021-04-21 00:00:00 2021-04-21 00:00:00 Telephone Kaley Coello [facility] 1..840.114 350.1.13.10 4.2.7.2.686 [id number] [facility] 2021-04-20 11:16:01 2021-04-20 11:52:08 Urgent Care Stewart [facility] 1.2.840.114 350.1.13.10 4.2.7.2.686 [id number] [facility] 2021-04-20 11:20:00 2021-04-20 11:20:00 Outpatient R STEWART TOMASA [facility] [id number] [facility] 2021-04-19 18:56:00 2021-04-19 19:59:00 Emergency Ciarra Frank [facility] 1.2.840.114 350.1.13.10 4.2.7.2.686 [id number] [facility] 2021-04-12 15:00:00 2021-04-12 15:00:00 Outpatient CHEIKH LIZAMA [facility] [id number] [facility] 2021-03-17 20:00:00 2021-03-17 20:00:00 Outpatient Sona COOPER TRUPTI [facility] [id number] [facility] 2021-01-30 11:15:00 2021-01-30 11:15:00 Outpatient JAN IRIZARRY [facility] [id number] [facility] 2021-01-24 08:00:00 2021-01-24 08:00:00 Outpatient FRANNIE JIMENEZ [facility] [id number] [facility] 2021-01-21 10:00:00 2021-01-21 10:00:00 Outpatient FRANNIE JIMENEZ [facility] [id number] [facility] 2021-01-17 16:00:00 2021-01-17 16:00:00 Outpatient CHEIKH LIZAMA [facility] [id number] [facility] 2021-01-15 09:20:00 2021-01-15 09:20:00 Outpatient THIERNO INTERIANO HOWARD [facility] [id number] [facility] 2020-12-25 10:40:00 2020-12-25 10:40:00 Outpatient THIERNO INTERIANO HOWARD [facility] [id number] [facility] 2020-12-20 11:20:00 2020-12-20 11:20:00 Outpatient CHEIKH LIZAMA [facility] [id number] [facility] 2020-12-18 10:00:00 2020-12-18 10:00:00 Outpatient FRANNIE JIMENEZ [facility] [id number] [facility] 2020-12-10 00:00:00 2020-12-10 00:00:00 Outpatient FRANNIE JIMENEZ [facility] [id number] [facility] 2020-12-06 15:30:00 2020-12-06 15:30:00 Outpatient JAN IRIZARRY [facility] [id number] [facility] 2020-12-04 09:45:00 2020-12-04 09:45:00 Outpatient Sona SMITH FRANNIE [facility] [id number] [facility] 2020-11-27 14:30:00 2020-11-27 14:30:00 Outpatient TORY DAVALOS [facility] [id number] [facility] 2020-11-27 09:00:00 2020-11-27 09:00:00 Outpatient JAN IRIZARRY [facility] [id number] [facility] 2020-11-22 13:20:00 2020-11-22 13:20:00 Outpatient CHEIKH LIZAMA [facility] [id number] [facility] 2020-11-15 13:30:00 2020-11-15 13:30:00 Outpatient JAN IRIZARRY [facility] [id number] [facility] 2020-11-14 16:00:00 2020-11-14 16:00:00 Outpatient KEHINDE MORRISSEY [facility] [id number] [facility] 2020-11-08 11:00:00 2020-11-08 11:00:00 Outpatient JAN IRIZARRY [facility] [id number] [facility] 2020-10-25 00:00:00 2020-10-25 00:00:00 [facility] 1.2.840.114 350.1.13.10 4.2.7.2.686 [id number] [facility] 2020-10-17 16:20:00 2020-10-17 16:20:00 Outpatient CHEIKH LIZAMA [facility] [id number] [facility] 2020-10-17 16:00:00 2020-10-17 16:00:00 Outpatient KEHINDE MORRISSEY [facility] [id number] [facility] 2020-10-15 10:00:00 2020-10-15 10:00:00 Outpatient Sona LEONIDASDERIANFRANNIE [facility] [id number] [facility] 2020-08-24 17:20:00 2020-08-24 17:20:00 Outpatient R [facility] [id number] [facility] 2020-08-16 00:00:00 2020-08-16 00:00:00 Patient Secure Msg Doctor Unassigned, Maloy [facility] ..840.114 350.1.13.10 4.2.7.2.686 [id number] [facility] 2020-08-06 14:15:00 2020-08-06 14:15:00 Outpatient FRANNIE JIMENEZ [facility] [id number] [facility] 2020-07-02 10:45:00 2020-07-02 10:45:00 Outpatient R FRANNIE SMITH [facility] [id number] [facility] 2020-06-22 11:20:00 2020-06-22 11:20:00 Outpatient CHEIKH LIZAMA [facility] [id number] [facility] 2020-06-18 14:40:00 2020-06-18 14:40:00 Outpatient RAYO WASHINGTON [facility] [place] [id number] [facility] 2020-06-15 10:00:00 2020-06-15 10:00:00 Outpatient CHEIKH LIZAMA [facility] [place] [id number] [facility] 2020-05-18 15:40:00 2020-05-18 15:40:00 Outpatient CHEIKH LIZAMA [facility] [place] [id number] [facility] 2020-05-14 00:00:00 2020-05-14 00:00:00 Patient Secure Msg Doctor Unassigned, [place] [facility] 1..[id number] [facility] 2020-03-20 14:00:00 2020-03-20 14:00:00 Outpatient R MARCELOIVAN [facility] [place] [id number] [facility] 2020-03-13 10:40:00 2020-03-13 10:40:00 Outpatient R CHEIKH BOYLE [facility] [place] [id number] [facility] 2020-03-02 11:00:00 2020-03-02 11:00:00 Outpatient R AGUSTO DARLING SHIWAN [facility] [place] [id number] [facility] 2020-02-29 10:00:00 2020-02-29 10:00:00 Outpatient R CHEIKH BOYLE [facility] [place] [id number] [facility] 2020-02-27 13:00:00 2020-02-27 13:00:00 Outpatient R CHEIKH BOYLE [facility] [place] [id number] [facility] 2020-01-24 07:37:42 2020-01-24 12:12:00 Emergency X PABLO WHITMOREJODI [facility] ERT [id number] [facility] 2020-01-11 13:00:00 2020-01-11 13:00:00 Outpatient R NEAL OROZCO [facility] [place] [id number] [facility] 2020-01-04 14:30:00 2020-01-04 14:30:00 Outpatient R NEAL OROZCO [facility] [place] [id number] [facility] 2020-01-03 14:00:00 2020-01-03 14:00:00 [id number] 2019-12-20 14:00:00 2019-12-20 14:00:00 Outpatient R MARCELOIVAN [facility] [place] [id number] [facility] 2019-12-15 12:30:00 2019-12-15 12:30:00 Outpatient R RED CRAMER [facility] [place] [id number] [facility] 2019-12-12 10:00:00 2019-12-12 10:00:00 Outpatient R AGUSTO DARLING SHIWAN [facility] [place] [id number] [facility] 2019-12-09 14:20:00 2019-12-09 14:20:00 Outpatient R CHEIKH BOYLE [facility] [place] [id number] [facility] 2019-12-02 11:40:00 2019-12-02 11:40:00 Outpatient R AGUSTO DARLING SHIWAN [facility] [place] [id number] [facility] 2019-12-01 09:00:00 2019-12-01 09:00:00 Outpatient ALBA DELONG [facility] [place] [id number] [facility] 2019-11-29 13:00:00 2019-11-29 13:00:00 Outpatient R ALBA VALENTINE [facility] [place] [id number] [facility] 2019-11-15 09:45:00 2019-11-15 09:45:00 Outpatient NEAL SCHOFIELD [facility] [place] [id number] [facility] 2019-11-11 10:40:00 2019-11-11 10:40:00 Outpatient CHEIKH LIZAMA [facility] [place] [id number] [facility] 2019-11-04 13:20:00 2019-11-04 13:20:00 Outpatient CHEIKH LIZAMA [facility] [place] [id number] [facility] 2019-11-01 10:00:00 2019-11-01 10:00:00 Outpatient CHEIKH LIZAMA [facility] [place] [id number] [facility] 2019-10-28 12:40:00 2019-10-28 12:40:00 Outpatient CHEIKH LIZAMA [facility] [place] [id number] [facility] 2019-10-25 11:20:00 2019-10-25 11:20:00 Outpatient THIERNO INTERIANO HOWARD [facility] [place] [id number] [facility] 2019-10-21 13:00:00 2019-10-21 13:00:00 Outpatient R AGUSTO DARLING SHIWAN [facility] [place] [id number] [facility] 2019-10-19 09:50:34 2019-10-19 23:59:00 Outpatient R CHEIKH BOYLE [facility] [place] [id number] [facility] 2019-10-17 11:34:18 2019-10-17 16:01:00 Emergency X Susana DANIELS [facility] ERT [id number] [facility] 2019-10-17 11:20:00 2019-10-17 11:20:00 Outpatient THIERNO INTERIANO HOWARD [facility] [place] [id number] [facility] 2019-10-14 11:00:00 2019-10-14 11:00:00 Outpatient FRANNIE JIMENEZ [facility] [place] [id number] [facility] 2019-10-12 15:40:00 2019-10-12 15:40:00 Outpatient R CHEIKH BOYLE [facility] [place] [id number] [facility] 2019-10-11 13:30:00 2019-10-11 13:30:00 Outpatient JAN IRIZARRY [facility] [place] [id number] [facility] 2019-10-06 15:40:00 2019-10-06 15:40:00 Outpatient R CHEIKH BOYLE [facility] [place] [id number] [facility] 2019-08-31 14:47:13 2019-09-06 18:06:25 Office Visit Cheikh Boyle [facility] 1..840.114 350.1.13.10 4.2.7.2.686 [id number] [id number] [facility] 2019-09-06 13:53:00 2019-09-06 14:53:00 Front Maker Visit Tech, Adc Cardio Fac 2, Adc Cardio Fac Room [facility] 1..840.114 350.1.13.10 4.2.7.2.686 [id number] 059 [id number] [facility] 2019-09-06 08:52:38 2019-09-06 09:16:32 Office Visit Frannie Smith [facility] 1.2.840.114 350.1.13.10 4.2.7.2.686 [id number] [facility] 2019-09-01 09:38:47 2019-09-01 16:33:00 Emergency Nii Bonilla [facility] 1.2.840.114 350.1.13.10 4.2.7.2.686 [id number] [facility] 2019-08-25 13:03:52 2019-08-25 15:25:05 Ancillary Visit Melisa Perez Craig L [facility] 1.2.840.114 350.1.13.10 4.2.7.2.686 [id number] [facility] 2019-08-25 00:00:00 2019-08-25 00:00:00 Telephone Cheikh Boyle [facility] 1.2.840.114 350.1.13.10 4.2.7.2.686 [id number] [facility] 2019-08-23 00:00:00 2019-08-23 00:00:00 Telephone Rafael Ambrocioyash [facility] Building 1.2.840.114 350.1.13.10 4.2.7.2.686 [id number] 059 [id number] [facility] 2019-08-16 06:57:53 2019-08-16 09:44:00 Emergency X MAYER, MICHEAL [facility] ERT [id number] [facility] 2019-04-22 09:04:40 2019-04-22 09:52:08 Office Visit [facility] 1.2840.114 350.1.13.10 4.2.7.2.686 [id number] 044 [id number] [facility] 2019-04-22 00:00:00 2019-04-22 00:00:00 Orders Only Doctor Unassigned, Maloy [facility] 1.2840.114 350.1.13.10 4.2.7.2.686 [id number] [id number] [facility] 2019-04-11 09:18:53 2019-04-11 09:57:00 Emergency BrianFilomena Elsa [facility] 1.2840.114 350.1.13.10 4.2.7.2.686 [id number] 084 [id number] [facility] 2019-04-11 00:00:00 2019-04-11 00:00:00 Orders Only Doctor Unassigned, Maloy [facility] 1.2840.114 350.1.13.10 4.2.7.2.686 [id number] [id number] [facility] Results Test Description Test Time Test Comments Results Result Co mments Source [facility] SARS-COV-2 ANTIGEN (BINAX NOW)2023-09-15 18:43:00* Test Item Value Reference Range Interpretation Comme nts POCT SARS-COV-2 ANTIGEN (tavon t code = 80148-6) Not Detected Not Detected On board controls acceptable with C Line (test code = 3574) Yes Lab Interpretation (test cod e = 39527-8) Normal [facility] SARS-COV-2 ANTIGEN (BINAX NOW)2023-09-15 18:43:00* Test Item Value Reference Range Interpretation Comme nts POCT SARS-COV-2 ANTIGEN (tavon t code = 01992-4) Not Detected Not Detected On board controls acceptable with C Line (test code = 3574) Yes Lab Interpretation (test cod e = 59837-8) [facility] (NA, K, CL, CO2, GLUCOSE, BUN, CREATININE, CA) - On Postoperative Day # 11:17:22* Test Item Value Reference Range Interpretation Comme nts NA (test code = 6046917053) 138 mmol/L 135-145 K (test code = 0778253575) 4.2 mmol/L 3.5-5.0 CL (test code = 7678702330) 107 mmol/L 98-108 CO2 TOTAL (test code = 1202438715) 20 mmol/L 23-31 L AGAP (test code = 5550900894) 11 2-16 BUN (test code = 0890831369) 7 mg/dL 7-23 GLUCOSE (test code = 1550070211) 110 mg/dL 70-110 CREATININE (test code = 4830006544) 0.62 mg/dL 0.50-1.04 CALCIUM (test code = 6303498900) 9.0 mg/dL 8.6-10.6 eGFR (test code = 24582-4) 117.8 mL/min/1.73m2 CKD-EPI eGFR (2020). Assuming creatinine has been stable day-to-day for at least three months, the eGFR indicates Category G1 (>= 90 mL/min/1.73 m2) Lab Interpretation (test code = 78082-8) Abnormal [facility] Metabolic Panel (NA, K, CL, CO2, GLUCOSE, BUN, CREATININE, CA) - On Postoperative Day # 11:17:22* Test Item Value Reference Range Interpretation Comme nts NA (test code = 5660991848) 138 mmol/L 135-145 K (test code = 8020128579) 4.2 mmol/L 3.5-5.0 CL (test code = 8174147807) 107 mmol/L 98-108 CO2 TOTAL (test code = 9526063130) 20 mmol/L 23-31 L AGAP (test code = 8696791376) 11 2-16 BUN (test code = 6312878840) 7 mg/dL 7-23 GLUCOSE (test code = 9923931922) 110 mg/dL 70-110 CREATININE (test code = 0380048297) 0.62 mg/dL 0.50-1.04 CALCIUM (test code = 5988205962) 9.0 mg/dL 8.6-10.6 eGFR (test code = 63443-6) 117.8 mL/min/1.73m2 CKD-EPI eGFR (2020). Assuming creatinine has been stable day-to-day for at least three months, the eGFR indicates Category G1 (>= 90 mL/min/1.73 m2) Lab Interpretation (test code = 99266-7) Abnormal [facility] with Differential - On Postoperative Day # 69210-13-17 10:49:19* Test Item Value Reference Range Interpretation Comme nts WBC (test code = 6690-2) 11.90 See_Comment H [Automated BoardVitalsa ge] The system which generated this result transmitted reference range: 4.30 - 11.10 10*3/?L. The reference range was not used to interpret this result as normal/abnormal. RBC (test code = 789-8) 4.24 See_Comment [Automated BoardVitalsa ge] The system which generated this result transmitted reference range: 3.93 - 5.25 10*6/?L. The reference range was not used to interpret this result as normal/abnormal. HGB (test code = 718-7) 12.7 g/dL 11.6-15.0 HCT (test code = 4544-3) 37.4 % 35.7-45.2 MCV (test code = 787-2) 88.2 fL 80.6-95.5 MCH (test code = 785-6) 30.0 pg 25.9-32.8 MCHC (test code = 786-4) 34.0 g/dL 31.6-35.1 RDW-SD (test code = 07468-8) 38.8 fL 39.0-49.9 L RDW-CV (test code = 788-0) 12.0 % 12.0-15.5 PLT (test code = 777-3) 339 See_Comment [Automated messa ge] The system which generated this result transmitted reference range: 166 - 358 10*3/?L. The reference range was not used to interpret this result as normal/abnormal. MPV (test code = 53497-2) 9.0 fL 9.5-12.9 L NRBC/100 WBC (test code = 4055176045) 0.0 See_Comment [Automated me ssage] The system which generated this result transmitted reference range: 0.0 - 10.0 /100 WBCs. The reference range was not used to interpret this result as normal/abnormal. NRBC x10^3 (test code = 2470120990) See_Comment [Automated messa ge] The system which generated this result transmitted reference range: 10*3/?L. The reference range was not used to interpret this result as normal/abnormal. GRAN MAT (NEUT) % (test code = 770-8) 82.7 % IMM GRAN % (test code = 0421574877) 0.30 % LYMPH % (test code = 736-9) 11.4 % MONO % (test code = 5905-5) 5.4 % EOS % (test code = 713-8) 0.0 % BASO % (test code = 706-2) 0.2 % GRAN MAT x10^3(ANC) (test code = 8044312296) 9.84 10*3/uL 1.88-7.09 H IMM GRAN x10^3 (test code = 4059422192) 0.04 10*3/uL 0.00-0.06 LYMPH x10^3 (test code = 731-0) 1.36 10*3/uL 1.32-3.29 MONO x10^3 (test code = 742-7) 0.64 10*3/uL 0.33-0.92 EOS x10^3 (test code = 711-2) 0.03-0.39 L BASO x10^3 (test code = 704-7) 0.01-0.07 Lab Interpretation (test code = 00301-8) Abnormal [facility] with Differential - On Postoperative Day # 36199-93-93 10:49:19* Test Item Value Reference Range Interpretation Comme nts WBC (test code = 6690-2) 11.90 See_Comment H [Automated messa ge] The system which generated this result transmitted reference range: 4.30 - 11.10 10*3/?L. The reference range was not used to interpret this result as normal/abnormal. RBC (test code = 789-8) 4.24 See_Comment [Automated messa ge] The system which generated this result transmitted reference range: 3.93 - 5.25 10*6/?L. The reference range was not used to interpret this result as normal/abnormal. HGB (test code = 718-7) 12.7 g/dL 11.6-15.0 HCT (test code = 4544-3) 37.4 % 35.7-45.2 MCV (test code = 787-2) 88.2 fL 80.6-95.5 MCH (test code = 785-6) 30.0 pg 25.9-32.8 MCHC (test code = 786-4) 34.0 g/dL 31.6-35.1 RDW-SD (test code = 32545-3) 38.8 fL 39.0-49.9 L RDW-CV (test code = 788-0) 12.0 % 12.0-15.5 PLT (test code = 777-3) 339 See_Comment [Automated messa ge] The system which generated this result transmitted reference range: 166 - 358 10*3/?L. The reference range was not used to interpret this result as normal/abnormal. MPV (test code = 99576-7) 9.0 fL 9.5-12.9 L NRBC/100 WBC (test code = 6257763212) 0.0 See_Comment [Automated CertificationPoint ssage] The system which generated this result transmitted reference range: 0.0 - 10.0 /100 WBCs. The reference range was not used to interpret this result as normal/abnormal. NRBC x10^3 (test code = 4642020049) See_Comment [Automated BoardVitalsa ge] The system which generated this result transmitted reference range: 10*3/?L. The reference range was not used to interpret this result as normal/abnormal. GRAN MAT (NEUT) % (test code = 770-8) 82.7 % IMM GRAN % (test code = 5264504181) 0.30 % LYMPH % (test code = 736-9) 11.4 % MONO % (test code = 5905-5) 5.4 % EOS % (test code = 713-8) 0.0 % BASO % (test code = 706-2) 0.2 % GRAN MAT x10^3(ANC) (test code = 3059491606) 9.84 10*3/uL 1.88-7.09 H IMM GRAN x10^3 (test code = 1690001629) 0.04 10*3/uL 0.00-0.06 LYMPH x10^3 (test code = 731-0) 1.36 10*3/uL 1.32-3.29 MONO x10^3 (test code = 742-7) 0.64 10*3/uL 0.33-0.92 EOS x10^3 (test code = 711-2) 0.03-0.39 L BASO x10^3 (test code = 704-7) 0.01-0.07 Lab Interpretation (test code = 89906-6) [facility]normal [facility], [id number] 16:26:01BETA HCG<2.39Non- female and male patients: <5 mIU/mL09/01/2023 10:26 AM [facility] Gestational Age ?Range (mIU/mL) 1-10 ?Weeks ?[id number] Weeks ?55397-56935800-28 Weeks ?8310-17980260-79 Weeks ?1531-048300 Biotin has been reported to cause a negative bias, interpret resultsrelative to patient's use of biotin.[facility] HCG, QUANTITATIVE, [id number] 16:26:01BETA HCG<2.39Non- female and male patients: <5 mIU/mL09/01/2023 10:26 AM [facility] Gestational Age ?Range (mIU/mL) 1-10 ?Weeks ?[phone] Weeks ?66207-27430695-08 Weeks ?3524-33599562-51 Weeks ?1531-148052 Biotin has been reported to cause a negative bias, interpret resultsrelative to patient's use of biotin. [facility] Center[facility]bc with [id number] 23:24:46* Test Item Value Reference Range Interpretation Comme nts WBC (test code = 6690-2) 7.16 See_Comment [Automated BoardVitalsa ge] The system which generated this result transmitted reference range: 4.30 - 11.10 10*3/?L. The reference range was not used to interpret this result as normal/abnormal. RBC (test code = 789-8) 4.43 See_Comment [Automated BoardVitalsa ge] The system which generated this result transmitted reference range: 3.93 - 5.25 10*6/?L. The reference range was not used to interpret this result as normal/abnormal. HGB (test code = 718-7) 13.4 g/dL 11.6-15.0 HCT (test code = 4544-3) 39.1 % 35.7-45.2 MCV (test code = 787-2) 88.3 fL 80.6-95.5 MCH (test code = 785-6) 30.2 pg 25.9-32.8 MCHC (test code = 786-4) 34.3 g/dL 31.6-35.1 RDW-SD (test code = 91475-0) 38.7 fL 39.0-49.9 L RDW-CV (test code = 788-0) 12.0 % 12.0-15.5 PLT (test code = 777-3) 343 See_Comment [Automated BoardVitalsa ge] The system which generated this result transmitted reference range: 166 - 358 10*3/?L. The reference range was not used to interpret this result as normal/abnormal. MPV (test code = 49858-8) 8.8 fL 9.5-12.9 L NRBC/100 WBC (test code = 3105844250) 0.0 See_Comment [Automated CertificationPoint ssage] The system which generated this result transmitted reference range: 0.0 - 10.0 /100 WBCs. The reference range was not used to interpret this result as normal/abnormal. NRBC x10^3 (test code = 2412242041) See_Comment [Automated messa ge] The system which generated this result transmitted reference range: 10*3/?L. The reference range was not used to interpret this result as normal/abnormal. GRAN MAT (NEUT) % (test code = 770-8) 43.2 % IMM GRAN % (test code = 1376627770) 0.00 % LYMPH % (test code = 736-9) 47.6 % MONO % (test code = 5905-5) 6.8 % EOS % (test code = 713-8) 2.0 % BASO % (test code = 706-2) 0.4 % GRAN MAT x10^3(ANC) (test code = 2145984988) 3.09 10*3/uL 1.88-7.09 IMM GRAN x10^3 (test code = 7375199979) 0.00-0.06 LYMPH x10^3 (test code = 731-0) 3.41 10*3/uL 1.32-3.29 H MONO x10^3 (test code = 742-7) 0.49 10*3/uL 0.33-0.92 EOS x10^3 (test code = 711-2) 0.14 10*3/uL 0.03-0.39 BASO x10^3 (test code = 704-7) 0.03 10*3/uL 0.01-0.07 Lab Interpretation (test code = 20502-6) Abnormal [facility] [id number] 21:21:00* Test Item Value Reference Range Interpretation Comme nts POCT PREG (test code = 1605) Negative On board controls acceptable with C Line (test code = 3574) Yes POCT PREG LOT # (test code = 3575) POCT PREG TEST DATE ( test code = 3576) [facility] [id number] 21:21:00* Test Item Value Reference Range Interpretation Comme nts POCT PREG (test code = 1605) Negative On board controls acceptable with C Line (test code = 3574) Yes POCT PREG LOT # (test code = 3575) POCT PREG TEST DATE ( test code = 3576) [facility] Center[facility] WITH [id number] 17:16:52EXAM: US PELVIS COMPLETE WITH TRANSVAGINAL HISTORY: 38 years-old Female presenting for AUB LMP = 06/08/2023 TECHNIQUE: Transabdominal and transvaginal ultrasound imaging and colorDoppler evaluation of the pelvis was performed. Saxophone Player images wereobtained for the record. COMPARISON: Ultrasound pelvis on 02/17/2022 FINDINGS: Uterus: The uterus measures 9.5 x 5.6 x 6.4 cm. The myometrium appearsheterogeneous. No focal lesion is detected. The endometrium is normal inappearance and the thickness measures 0.6 cm. Few nabothian cysts arepresent. The cervix is unremarkable. Right Adnexa:Ovary: The right ovary measures 3.5 x 1.6 x 2.7 cm with a volume of 7.7 ml.The right ovary is unremarkable.Few growing follicles are present. Left Adnexa:Ovary: The left ovary measures 2.7 x 2 x 1.9 cm witha volume of 5.5 ml.The left ovary is unremarkable. Few growing follicles are present. Cul-de-sac: Small amount of free fluid is present.[facility] Test 2023-07-23 14:27:00* Test Item Value Reference Range Interpretation Comme [facility] POCT PREG (test code = 1605) Negative On board controls acceptable with C Line (test code = 3574) Yes POCT PREG LOT # (test code = 3575) POCT PREG TEST DATE ( test code = 3576) [facility] [id number] 14:27:00* Test Item Value Reference Range Interpretation Comme [facility] POCT PREG (test code = 1605) Negative On board controls acceptable with C Line (test code = 3574) Yes POCT PREG LOT # (test code = 3575) POCT PREG TEST DATE ( test code = 3576) [facility] MOLECULAR [id number] 22:04:53* Test Item Value Reference Range Interpretation Comme [facility] POCT Molecular Strep (test c ode = 71442-8) Negative Negative Lab Interpretation (test cod e = 06848-1) Normal [facility] CenterD-[id number] 06:58:09* Test Item Value Reference Range Interpretation Comments D-DIMER (test code = 6072042689) See_Comment [Automated message] The system which generated this result transmitted reference range: <0.41 ?g/mL (FEU). The reference range was not used to interpret this result as normal/abnormal. TYRON (test code = TYRON) This test may be used in conjunction with a clinical pretest probability (PTP) assessment model to exclude venous thromboembolism (VTE) in patients suspected of deep venous thrombosis (DVT) and pulmonary embolism (PE) A D-Dimer value less than 0.50 ?g/ml (FEU) has a negative predicative value of 96 to 100% (95% CI)and 97 to 100% (95% CI) as an aid in the diagnosis of deep vein thrombosis (DVT) and pulmonary embolism when there is low or moderate pretest probability of PE or DVT. D-Dimer values are expressed in initial fibrinogen equivalent units (FEU)" The assay results should be used with other information, including the clinical context, in forming a diagnosis. Lab Interpretation (test code = 63840-3) Normal [facility] CenterTROPONIN [id number] 06:32:18* Test Item Value Reference Range Interpretation Comme nts TROPONIN I (test code = 7350280806) 0.004 ng/mL <=0.034 TYRON (test code = TYRON) Reference (Normal) Range (defined by the 99th percentile reference limit): <= 0.034 ng/mL Note: Cardiac troponin begins to rise 3-4 hours after the onset of ischemia. Repeat in 4-6 hours if the sample was drawn within 3-4 hours of the onset of the symptom and found normal. Diagnosis of myocardial injury is made with acute changes in cTn concentrations with at least one serial sample above the 99th percentile upper reference limit (URL), taken together with the patient's clinical presentation. Biotin has been reported to cause a negative bias, interpret results relative to patient's use of biotin. Lab Interpretation (test code = 25443-6) Normal [facility] CenterLIPASE2023-11-20 06:22:17* Test Item Value Reference Range Interpretation Comme nts LIPASE (test code = 4622564187) 105 U/L 0-220 Lab Interpretation (test cod e = 63459-0) Normal [facility] CenterCOMP. METABOLIC PANEL (30367)2023-06-29 06:22:12* Test Item Value Reference Range Interpretation Comme nts NA (test code = 8883126609) 140 mmol/L 135-145 K (test code = 4379553052) 4.1 mmol/L 3.5-5.0 CL (test code = 9161478481) 104 mmol/L 98-108 CO2 TOTAL (test code = 0500918982) 29 mmol/L 23-31 AGAP (test code = 2469066482) 7 2-16 BUN (test code = 8025867482) 10 mg/dL 7-23 GLUCOSE (test code = 4094550886) 102 mg/dL 70-110 CREATININE (test code = 7022429775) 0.70 mg/dL 0.50-1.04 TOTAL BILI (test code = 4323374591) 0.4 mg/dL 0.1-1.1 CALCIUM (test code = 1953734193) 9.3 mg/dL 8.6-10.6 T PROTEIN (test code = 2246622357) 8.4 g/dL 6.3-8.2 H ALBUMIN (test code = 9385103956) 4.3 g/dL 3.5-5.0 ALK PHOS (test code = 1895270048) 82 U/L 34-122 ALTv (test code = 1742-6) 26 U/L 5-35 AST(SGOT) (test code = 1350434896) 27 U/L 13-40 eGFR (test code = 24673-6) 114.4 mL/min/1.73m2 CKD-EPI eGFR (2020). Assuming creatinine has been stable day-to-day for at least three months, the eGFR indicates Category G1 (>= 90 mL/min/1.73 m2) Lab Interpretation (test code = 35868-6) Abnormal [facility] WITH [id number] 06:07:18* Test Item Value Reference Range Interpretation Comme nts WBC (test code = 6690-2) 6.82 See_Comment [Automated BoardVitalsa ge] The system which generated this result transmitted reference range: 4.30 - 11.10 10*3/?L. The reference range was not used to interpret this result as normal/abnormal. RBC (test code = 789-8) 4.39 See_Comment [Automated messa ge] The system which generated this result transmitted reference range: 3.93 - 5.25 10*6/?L. The reference range was not used to interpret this result as normal/abnormal. HGB (test code = 718-7) 13.6 g/dL 11.6-15.0 HCT (test code = 4544-3) 39.1 % 35.7-45.2 MCV (test code = 787-2) 89.1 fL 80.6-95.5 MCH (test code = 785-6) 31.0 pg 25.9-32.8 MCHC (test code = 786-4) 34.8 g/dL 31.6-35.1 RDW-SD (test code = 58260-4) 38.2 fL 39.0-49.9 L RDW-CV (test code = 788-0) 11.8 % 12.0-15.5 L PLT (test code = 777-3) 353 See_Comment [Automated messa ge] The system which generated this result transmitted reference range: 166 - 358 10*3/?L. The reference range was not used to interpret this result as normal/abnormal. MPV (test code = 00971-8) 9.0 fL 9.5-12.9 L NRBC/100 WBC (test code = 9835416878) 0.0 See_Comment [Automated me ssage] The system which generated this result transmitted reference range: 0.0 - 10.0 /100 WBCs. The reference range was not used to interpret this result as normal/abnormal. NRBC x10^3 (test code = 3868691420) See_Comment [Automated messa ge] The system which generated this result transmitted reference range: 10*3/?L. The reference range was not used to interpret this result as normal/abnormal. GRAN MAT (NEUT) % (test code = 770-8) 35.0 % IMM GRAN % (test code = 0822355170) 0.30 % LYMPH % (test code = 736-9) 53.8 % MONO % (test code = 5905-5) 7.6 % EOS % (test code = 713-8) 2.9 % BASO % (test code = 706-2) 0.4 % GRAN MAT x10^3(ANC) (test code = 2688278991) 2.38 10*3/uL 1.88-7.09 IMM GRAN x10^3 (test code = 1009477547) 0.00-0.06 LYMPH x10^3 (test code = 731-0) 3.67 10*3/uL 1.32-3.29 H MONO x10^3 (test code = 742-7) 0.52 10*3/uL 0.33-0.92 EOS x10^3 (test code = 711-2) 0.20 10*3/uL 0.03-0.39 BASO x10^3 (test code = 704-7) 0.03 10*3/uL 0.01-0.07 Lab Interpretation (test code = 66260-0) Abnormal [facility] MOLECULAR [id number] 21:21:49* Test Item Value Reference Range Interpretation Comme nts POCT Molecular FluA (test co de = 33007-1) Negative Negative POCT Molecular FluB (test co de = 00543-6) Negative Negative Lab Interpretation (test cod e = 63789-7) Normal [facility] SARS-COV-2 ANTIGEN (BINAX NOW)2023-05-22 21:02:00* Test Item Value Reference Range Interpretation Comme nts POCT SARS-COV-2 ANTIGEN (test code = 22447-6) Not Detected Not Detected On board controls acceptable with C Line (test code = 3574) Yes TYRON (test code = TYRON) accurate developme nt and interpretation of all internal controls Lab Interpretation (test code = 24829-1) [facility] 01:27:12* Test Item Value Reference Range Interpretation Comme nts Height (test code = 8619964705) 66 in Weight (test code = 7658113057) 255 lbs Systolic BP (test code = 9691138000) 117 mmHg Diastolic BP (test code = 6423275705) 71 mmHg Heart Rate (test code = 7888648108) 93 bpm Ao root diam (test code = 4695777459) 2.80 cm Aortic root (test code = 3403119876) 2.8 cm Ao root annulus (test code = 2769244528) 2.8 cm BSA (test code = 9373549610) 2.22 m2 LVOT diameter (test code = 3475676686) 2.23 cm LVOT area (test code = 9037683805) 3.90 cm2 LA size (test code = 1239747724) 3.1 cm ACS (test code = 6701893320) 2.25 cm LVIDD (test code = 1290595992) 4.20 cm Left Ventricular End Diastolic Volume by Teichholz Method (test code = 1107851) 78.5 mL IVS (test code = 8188105359) 0.86 cm Interventricular Septum Diastolic Thickness by 2D (test code = 0014067) 0.86 cm LVPWD (test code = 7873981286) 0.77 cm PW (test code = 5634806882) 0.77 cm 0.6-1.1 EF(Teich) (test code = 9270580602) 60.00 % LVIDS (test code = 0529922797) 2.90 cm Left Ventricular End Systolic Volume by Teichholz Method (test code = 2731844) 31.4 mL FS (test code = 9006607364) 32 % EF - 2D (test code = 28866931) 60.00 % TR Peak Darek (test code = 2970051479) 275.9 cm/s Triscuspid Valve Regurgitation Peak Gradient (test code = 4721334151) 30.5 mmHg PV PEAK VELOCITY (test code = 0504512881) 104.3 cm/s PV peak gradient (test code = 8728991917) 4.4 mmHg LAV(MOD-sp4) (test code = 6669924238) 28.30 mL MV E-F slope (test code = 2307053240) 47.10 cm/s MV Peak E Darek (test code = 7119155128) 59.7 cm/s MV Peak A Darek (test code = 7204380496) 65.0 cm/s E/A ratio (test code = 7793307343) 0.92 ratio MV valve area p 1/2 method (test code = 9804492039) 4.20 cm2 MV dec slope (test code = 0200704144) 338.50 cm/s2 MV P1/2t max darek (test code = 7886581166) 60.30 cm/s MR max PG (test code = 9843146089) 58.70 mm[Hg] MR max darek (test code = 1013006541) 383.00 cm/s Mr max darek (test code = 9755083380) 383.0 m/s LVOT stroke volume (test code = 5368070324) 79.00 cm3 LVOT peak darek (test code = 5525179400) 128.4 cm/s LVOT mn grad (test code = 7677201557) 2.8 mmHg AV LVOT peak gradient (test code = 9310984614) 6.6 mmHg LVOT peak VTI (test code = 8315981166) 20.2 cm LV V1 mean (test code = 9892822101) 75.70 cm/s Aortic valve mean velocity (test code = 0922436217) 94.9 cm/s Ao peak darek (test code = 6547961878) 158.0 cm/s Ao VTI (test code = 8370282843) 25.8 cm AV area by cont VTI (test code = 7791129290) 3.1 cm2 AV area peak darek (test code = 2859566727) 3.2 cm2 Ao max PG (test code = 0021606882) 10.00 mm[Hg] AV peak gradient (test code = 4799924881) 10.0 mmHg AV valve area (test code = 0938946947) 3.10 cm2 AV mean gradient (test code = 1739654944) 4.3 mmHg LA Volume Index (BP) (test code = 2731594509) 15.3 mL/m2 LA volume (BP) (test code = 3426659111) 33.9 mL LAV(MOD-sp2) (test code = 8384374868) 39.70 mL Radiology Study observation (narrative) (test code = 89865-0) TYRON (test code = TYRON) ?Left?Ventricle: Left ventricle size is normal. Normal wall thickness. Septal motion is consistent with bundle branch block. . Low normal systolic function with a visually estimated EF of 50 - 55%. There is impaired relaxation. ?Right?Ventricle: Right ventricle size is normal. Normal systolic function. ?Tricuspid?Valve: Right ventricular systolic pressure is normal. ?RA pressure is 0-5 mmHg. Left VentricleLeft ventricle size is normal. Normal wall thickness. Septal motion is consistent with bundle branch block. . Low normal systolic function with a visually estimated EF of 50 - 55%. There is impaired relaxation.Right VentricleRight ventricle size is normal. Normal systolic function.Left AtriumLeft atrium size is normal.Right AtriumRight atrium size is normal.IVC/SVCIVC diameter is less than or equal to 21 mm and decreases greater than 50% during inspiration; therefore the estimated right atrial pressure is normal (~0-5 mmHg).Mitral ValveMitral valve structure is normal. Trace transvalvular regurgitation.Tricusp id ValveTricuspid valve structure is normal. Trace transvalvular regurgitation. Right ventricular systolic pressure is normal. RA pressure is 0-5 mmHg.Aortic ValveAortic valve structure is normal.Pulmonic ValveValve structure is normal. Trace transvalvular regurgitation.Ascendi ng AortaNormal sized aorta.PericardiumThe pericardium is normal. No pericardial effusion.Study DetailsStudy quality was adequate. A complete echocardiogram was performed using 2D, color flow Doppler and spectral Doppler. [facility] SARS-COV-2 ANTIGEN (BINAX NOW)2023-04-03 20:55:00* Test Item Value Reference Range Interpretation Comme [facility] POCT SARS-COV-2 ANTIGEN (test code = 46737-2) Not Detected Not Detected On board controls acceptable with C Line (test code = 3574) Yes TYRON (test code = TYRON) accurate developme nt and interpretation of all internal controls Lab Interpretation (test code = 95889-2) Normal [facility] SARS-COV-2 ANTIGEN (BINAX NOW)2023-03-20 21:30:00* Test Item Value Reference Range Interpretation Comme [facility] POCT SARS-COV-2 ANTIGEN (tavon t code = 68559-4) Not Detected Not Detected On board controls acceptable with C Line (test code = 3574) Yes Lab Interpretation (test cod e = 01307-1) Normal [facility] [id number] 20:54:00* Test Item Value Reference Range Interpretation Comme nts POCT PREG (test code = 1605) Negative On board controls acceptable with C Line (test code = 3574) Yes POCT PREG LOT # (test code = 3575) POCT PREG TEST DATE ( test code = 3576) [facility] [id number] 01:04:20* Test Item Value Reference Range Interpretation Comme nts PREG SERUM (test code = 7556712513) Negative TYRON (test code = TYRON) Less than 10 IU/L. ?If low titer or ectopic is suspected, resubmit specimen in 48-72 hours. [facility]. METABOLIC PANEL (53937)2022-02-18 00:59:51* Test Item Value Reference Range Interpretation Comme nts NA (test code = 3231476323) 139 mmol/L 135-145 K (test code = 0281883625) 4.2 mmol/L 3.5-5 CL (test code = 4462588820) 104 mmol/L 98-108 CO2 TOTAL (test code = 1413346488) 27 mmol/L 23-31 AGAP (test code = 5047591929) 2-16 BUN (test code = 1204871055) 9 mg/dL 7-23 GLUCOSE (test code = 4592813766) 95 mg/dL 70-110 CREATININE (test code = 0129267946) 0.78 mg/dL 0.5-1.04 TOTAL BILI (test code = 0731808996) 0.5 mg/dL 0.1-1.1 CALCIUM (test code = 0402622432) 9.2 mg/dL 8.6-10.6 T PROTEIN (test code = 1204621046) 7.6 g/dL 6.3-8.2 ALBUMIN (test code = 0417200208) 4.5 g/dL 3.5-5 ALK PHOS (test code = 8276171985) 65 U/L 34-122 ALTv (test code = 1742-6) 22 U/L 5-35 AST(SGOT) (test code = 4833366367) 23 U/L 13-40 eGFR (test code = 1907644714) mL/min/1.73m2 TYRON (test code = TYRON) Association [...] or urine or abnormalities in imaging tests). [facility] WITH [id number] 00:41:49* Test Item Value Reference Range Interpretation Comme nts WBC (test code = 6690-2) See_Comment [[employer]] The system which generated this result transmitted reference range: 4.30 - 11.10 10*3/?L. The reference range was not used to interpret this result as normal/abnormal. RBC (test code = 789-8) See_Comment [[employer]] The system which generated this result transmitted reference range: 3.93 - 5.25 10*6/?L. The reference range was not used to interpret this result as normal/abnormal. HGB (test code = 718-7) 12.7 g/dL 11.6-15 HCT (test code = 4544-3) 37.8 % 35.7-45.2 MCV (test code = 787-2) 91.3 fL 80.6-95.5 MCH (test code = 785-6) 30.7 pg 25.9-32.8 MCHC (test code = 786-4) 33.6 g/dL 31.6-35.1 RDW-SD (test code = 60213-4) 40.7 fL 39-49.9 RDW-CV (test code = 788-0) 12.2 % 12-15.5 PLT (test code = 777-3) See_Comment [Automated [employer]] The system which generated this result transmitted reference range: 166 - 358 10*3/?L. The reference range was not used to interpret this result as normal/abnormal. MPV (test code = 60309-2) 9.6 fL 9.5-12.9 NRBC/100 WBC (test code = 8342974127) See_Comment [[employer]] The system which generated this result transmitted reference range: 0.0 - 10.0 /100 WBCs. The reference range was not used to interpret this result as normal/abnormal. NRBC x10^3 (test code = 9100178390) See_Comment [Automated me ssage] The system which generated this result transmitted reference range: 10*3/?L. The reference range was not used to interpret this result as normal/abnormal. GRAN MAT (NEUT) % (test code = 770-8) 37.5 % IMM GRAN % (test code = 4656260792) 0.20 % LYMPH % (test code = 736-9) 50.8 % MONO % (test code = 5905-5) 8.7 % EOS % (test code = 713-8) 2.1 % BASO % (test code = 706-2) 0.7 % GRAN MAT x10^3(ANC) (test code = 9192498590) 2.10 10*3/uL 1.88-7.09 IMM GRAN x10^3 (test code = 6445187867) 0-0.06 LYMPH x10^3 (test code = 731-0) 2.85 10*3/uL 1.32-3.29 MONO x10^3 (test code = 742-7) 0.49 10*3/uL 0.33-0.92 EOS x10^3 (test code = 711-2) 0.12 10*3/uL 0.03-0.39 BASO x10^3 (test code = 704-7) 0.04 10*3/uL 0.01-0.07 [facility]PO[facility] [id number] 00:22:00* Test Item Value Reference Range Interpretation Comme nts POCT PREG (test code = 1605) negative Lab Interpretation (test cod e = 14265-5) Normal [facility] CenterComplete Metabolic Irgps0852-10-27 03:45:37* Test Item Value Reference Range Interpretation Comme nts NA (test code = 7615340952) 140 mmol/L 135-145 K (test code = 5323302727) 3.8 mmol/L 3.5-5.0 CL (test code = 0658408914) 104 mmol/L 98-108 CO2 TOTAL (test code = 5731156409) 24 mmol/L 23-31 AGAP (test code = 2773102055) 2-16 BUN (test code = 3472272769) 12 mg/dL 7-23 GLUCOSE (test code = 3292287258) 94 mg/dL 70-110 CREATININE (test code = 7492035406) 0.92 mg/dL 0.50-1.04 TOTAL BILI (test code = 4710457503) 1.0 mg/dL 0.1-1.1 CALCIUM (test code = 6860568433) 8.9 mg/dL 8.6-10.6 T PROTEIN (test code = 4740308785) 8.1 g/dL 6.3-8.2 ALBUMIN (test code = 6446581461) 4.8 g/dL 3.5-5.0 ALK PHOS (test code = 8883342742) 68 U/L 34-122 ALTv (test code = 1742-6) 19 U/L 5-35 AST(SGOT) (test code = 5918125090) 32 U/L 13-40 eGFR (test code = 4314885259) mL/min/1.73m2 TYRON (test code = TYRON) Association [...] or urine or abnormalities in imaging tests). [facility] CenterLip[facility], Nhprw0577-52-93 03:44:57* Test Item Value Reference Range Interpretation Comme nts LIPASE (test code = 0402350446) 64 U/L 0-220 Lab Interpretation (test cod e = 12588-1) Normal [facility] CenterCB with Pidqbzokbynl7929-96-53 03:36:15* Test Item Value Reference Range Interpretation Comme nts WBC (test code = 6690-2) See_Comment [[employer]] The system which generated this result transmitted reference range: 4.30 - 11.10 10*3/?L. The reference range was not used to interpret this result as normal/abnormal. RBC (test code = 789-8) See_Comment [[employer]] The system which generated this result transmitted reference range: 3.93 - 5.25 10*6/?L. The reference range was not used to interpret this result as normal/abnormal. HGB (test code = 718-7) 12.9 g/dL 11.6-15.0 HCT (test code = 4544-3) 38.1 % 35.7-45.2 MCV (test code = 787-2) 91.4 fL 80.6-95.5 MCH (test code = 785-6) 30.9 pg 25.9-32.8 MCHC (test code = 786-4) 33.9 g/dL 31.6-35.1 RDW-SD (test code = 70856-7) 39.5 fL 39.0-49.9 RDW-CV (test code = 788-0) 11.7 % 12.0-15.5 L PLT (test code = 777-3) See_Comment [Automated messa ge] The system which generated this result transmitted reference range: 166 - 358 10*3/?L. The reference range was not used to interpret this result as normal/abnormal. MPV (test code = 73348-7) 9.2 fL 9.5-12.9 L NRBC/100 WBC (test code = 9026889416) See_Comment [[employer]ated [employer] ss[employer]] The system which generated this result transmitted reference range: 0.0 - 10.0 /100 WBCs. The reference range was not used to interpret this result as normal/abnormal. NRBC x10^3 (test code = 7089727566) <0.01 See_Comment [Automated messa ge] The system which generated this result transmitted reference range: 10*3/?L. The reference range was not used to interpret this result as normal/abnormal. GRAN MAT (NEUT) % (test code = 770-8) 42.4 % IMM GRAN % (test code = 3094309097) 0.80 % LYMPH % (test code = 736-9) 45.8 % MONO % (test code = 5905-5) 9.7 % EOS % (test code = 713-8) 0.5 % BASO % (test code = 706-2) 0.8 % GRAN MAT x10^3(ANC) (test code = 7128927880) 2.62 10*3/uL 1.88-7.09 IMM GRAN x10^3 (test code = 9775128597) 0.05 10*3/uL 0.00-0.06 LYMPH x10^3 (test code = 731-0) 2.83 10*3/uL 1.32-3.29 MONO x10^3 (test code = 742-7) 0.60 10*3/uL 0.33-0.92 EOS x10^3 (test code = 711-2) 0.03 10*3/uL 0.03-0.39 BASO x10^3 (test code = 704-7) 0.05 10*3/uL 0.01-0.07 Lab Interpretation (test code = 36982-7) Abnormal [facility] Lsaf9749-47-16 03:18:00* Test Item Value Reference Range Interpretation Comme nts POCT PREG (test code = 1605) negative On board controls acceptable with C Line (test code = 3574) positive POCT PREG LOT # (test code = 3575) [id number] POCT PREG TEST DATE ( test code = 3576) 05-09-2023 Lab Interpretation (test cod e = 80926-6) Normal [facility] History and Physical Notes Date/Time Note Provider Source 2023-09-02 15:53:33 yUlCmMxJrHPM0wbfvDKN [id number] hSyqCG2M7nxm8QkiASo7mO0225-63-29Y54:53:33F ormatting of this note is different from the original.I have seen and examined patient. Denies interval changes.Patient Vitals for the past 24 hrs:BP Temp Temp src Pulse Resp PzA00809/02/23 1333 (!) 122/92 36.7 ?C (98.1 ?F) TEMPORAL ART 81 21 100 %NADRRRBreathing unlaboredSoft, NTTP, no rashNo edemaA/P: Will proceed with TLH/BS/Cysto as planned. Accompanied by her Andrew atkins. All questions answered.Jarrod Mercado MD 09/02/2023 3:54 PM ource Note - Jarrod Mercado MD - 08/13/2023 2:00 PM CST Chief ComplaintPatient presents withPre-op ClearanceHPI: Virgie Frausto is a 38 year old female here for pre-op. Patient desires definitive management with hysterectomy for abnormal uterine bleeding.Past Medical History:Diagnosis DateAcute URI 08/31/2019Anxiety 07/25/2019Bipolar 1 disorderBronchitis 08/31/2019Congenital heart disease with intracardiac shuntingConstipation, unspecified constipation type 08/17/2019Current moderate episode of major depressive disorder, unspecified whether recurrent 07/25/2019Cutaneous abscess of groin 07/25/2019Cysts of both ovaries 08/17/2019DepressionDisequilibriumDizzines s 05/26/2019Hep C w/o coma, chronic age 20- Liver bx - Angelica fibrosis score 1/6Hidradenitis 07/25/2019IVDU (intravenous drug user) 07/25/2019Lower abdominal pain 08/31/2019Morbid obesity with body mass index of 40.0-49.9 05/26/2019Non-intractable vomiting with nausea, unspecified vomiting type 07/25/2019Peripheral vertigo involving left earPrimary insomnia 08/12/2019Pulmonary hypertensionRight ventricular dilationSchizophrenia with prominent negative symptoms 07/25/2019Substernal chest pain 08/31/2019Tobacco dependence 07/25/2019Yeast infection 07/25/2019Past Surgical History:Procedure Laterality DateCESAREAN SECTIONTUBAL LIGATIONOB HistoryGravida Para Term AB Living3 3 3 2SAB IAB Ectopic Multiple Live Births2# Outcome Date GA Lbr Jose/2nd Weight Sex Delivery Anes PTL Lv3 Term 03/03/08 , L2 Term 03/30/07 M , L ND1 Term 08/07/05 , L LIVComplications: Dysfunctional Labor, Failure to Progress in First StageObstetric Comments1 , at 3 months of age- 15 years agoNo Known AllergiesPatient's MedicationsSTART taking these medicationsNo medications on fileCONTINUE taking these medications which have NOT CHANGEDALBUTEROL 2.5 MG /3 ML (0.083 %) NEBULIZER SOLUTION Inhale 3 mL every 4 (four) hours as needed for Wheezing or Shortness of Breath.ALBUTEROL 90 MCG/ACTUATION INHALER Inhale 2 Puffs every 4 (four) hours as needed for Wheezing or Shortness of Breath.ARIPIPRAZOLE (ABILIFY) 5 MG TABLET Take 1 tablet by mouth in the morning.BUPROPION SR (WELLBUTRIN SR) 150 MG SR TABLET Take 1 tablet by mouth in the morning and 1 tablet in the evening.DICYCLOMINE 20 MG TABLET Take 1 tablet by mouth every 6 (six) hours as needed for Abdominal pain.DOXEPIN 100 MG CAPSULE Take 1 capsule by mouth at bedtime.DULOXETINE 20 MG CAPSULE Take 1 capsule by mouth in the morning and 1 capsule in the evening.GLECAPREVIR-PIBRENTASVIR 100-40 MG Take 3 tablets by mouth in the morning.IPRATROPIUM 0.02 % NEBULIZER SOLUTION Inhale 2.5 mL every 8 (eight) hours as needed for Wheezing or Shortness of Breath.LACTULOSE 10 GRAM/15 ML ORAL SOLUTION Take 30 mL by mouth 3 (three) times daily as needed for Constipation or For bowel movement.ONDANSETRON (ZOFRAN) 4 MG TABLET Take 1 tablet by mouth every 8 (eight) hours as needed for Nausea and Vomiting (N/V).TOPIRAMATE 50 MG TABLET Take 1 tablet by mouth in the morning and 1 tablet in the evening.TRETINOIN 0.075 % CREA Apply 1 g to area(s) at bedtime.TRIAMCINOLONE ACETONIDE 0.1 % CREAM Apply to area(s) 2 (two) times daily.VALACYCLOVIR 1 GRAM TABLET Take 1 tablet by mouth in the morning.START taking Modified Medications as PrescribedNo medications on fileSTOP taking these medicationsNo medications on fileFamily HistoryProblem Relation Age of OnsetHypertension MotherHypertension FatherMI (myocardial infarction) Father 56No Significant Medical Problems SisterNo Significant Medical Problems DaughterNo Significant Medical Problems SonSocial HistorySocioeconomic HistoryMarital status: SeparatedNumber of children: 2Occupational HistoryOccupation: Home makerTobacco UseSmoking status: Every DayPacks/day: 0.50Years: 20.00Additional pack years: 0.00Total pack years: 10.00Types: CigarettesPassive exposure: PastSmokeless tobacco: NeverTobacco comments:Stopped vaping ~1 yr agoVaping UseVaping Use: FormerSubstance and Sexual ActivityAlcohol use: YesComment: every weekendDrug use: NoSexual activity: YesBirth control/protection: SurgicalComment: tubal ligationSocial History NarrativeUnemployed, 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, lives with kidsRecently incarceratedReview of SystemsConstitutional: Negative for chills, fatigue and fever.HENT: Negative for congestion, rhinorrhea, sneezing and sore throat.Respiratory: Negative for cough, chest tightness, shortness of breath and wheezing.Cardiovascular: Negative for chest pain and palpitations.Gastrointestinal: Negative for abdominal distention, abdominal pain, anal bleeding, blood in stool, constipation, diarrhea, nausea and vomiting.Genitourinary: Negative for dysuria, urgency, frequency, vaginal bleeding and vaginal discharge.Musculoskeletal: Negative for gait problem.Skin: Negative for rash.Neurological: Negative for syncope, light-headedness and headaches.Psychiatric/Behavioral: Negative for dysphoric mood, self-injury and suicidal ideas.Hematological: Does not bruise/bleed easily.BP: (131)/(75)Temp: [36.9 ?C (98.5 ?F)]Temp source: Oral (08/13 1458)Pulse: [81]Resp: [18]SpO2: --Height: [5' 5" (165.1 cm)]Weight: [269 lb (122 kg)]BMI (calculated): [44.76]Physical ExamVitals reviewed.Constitutional: She is oriented to person, place, and time. Her body habitus is normal.Cardiovascular: Regular rate and rhythm.Pulmonary/Chest: Breath sounds clear to auscultation. Normal inspiratory effort.Abdominal: Abdomen is soft. No tenderness present. No hernia palpated or inspected.Neuro/Psychiatric: She has a normal mood and affect. She is oriented to person, place, and time.A/P:Preop examination (primary encounter diagnosis)- We reviewed hysterectomy, modes, types and the benefits of retaining or removing her ovaries. She understands that this would definitely take care of her bleeding problems. We reviewed the route - which would be a TLH + salpingectomy and cystoscopy. We discussed the risks including but not limited to bleeding, infection, injury to bowels, ureters, bladder, blood vessels, blood transfusion, fistula formation, de viktoriya prolapse, de viktoriya urinary incontinence, and VTE. Benefits and alternatives to surgery were also discussed in details. She would need medical clearance and I will coordinate with her PCP and cardiology. Written instructions provided with detailed instructions on anticoagulation protocol pre and post operatively if applicable. Post op expectations/hospital stay was reviewed and consents signedI counseled the patient regarding removal of her ovaries at the time of surgery. Given her noncontributory family and personal history (no history of breast, colon, ovarian or endometrial cancer), she is not at elevated risk for ovarian cancer. I discussed her lifetime risk of ovarian cancer being 1 in 70. While removal of her ovaries would decrease her lifetime risk of ovarian cancer, I discussed the additional risks of removal including surgical menopause, osteoporosis, increased heart disease and cholesterol levels, and overall decreased lifespan. I discussed the benefits of keeping her ovaries including prevention of cardiovascular disease, prevention of osteoporosis and overall benefits of retaining her natural hormones. I discussed that the risk of re-operation in the future for ovarian pathology is 3.6-7.6% based on ACOG Practice Bulletin. The patient expressed understanding and had her questions answered to her satisfaction. She elects to keep her ovaries unless clinically indicated otherwise.I discussed that some research has suggested that ovarian cancer may arise from the fallopian tubes. We discussed removal of her fallopian tubes and she agrees to bilateral salpingectomy if they are easily accessible.Denies hx of abnormal Pap smear. Pap and HPV negative on 07/30/2023enign endometrial biopsy on 07/30/2023ONSULT/REFERRAL CARDIOLOGY, CONSULT/REFERRALINTERNAL MEDICINEFollow-up 2 wks post opVien Dakota Mercado MD 08/13/2023 2:37 PM [id number] History and physical cpgkZY1698-76-54X41:54:53Attending History and physical [id number] 9|[id number] for patient crpj80619-1Chcluwb and physical noteLNNARRATIVEFormatted C-CDA narrative textUTSAN J[facility] - [address] Jk[id number] MEPETARJPPDUSOET8946-06-80M14:54:531.2.840 .[id number]|[id number]. [id number] [facility] Procedure Notes Date/Time Note Provider Source 2023-09-02 18:30:29 a5vjnQCxpeWXXEw0lej1 a9a1wTaM0opGsq4sLBfua+ /04B7/wCYhUMhPfitfRiKg5293-30-26Y79:30:29P rocedure(s): LAPAROSCOPIC TOTAL ABDOMINAL HYSTERECTOMY; LAPAROSCOPIC SALPINGECTOMY; CYSTOSCOPYPre-Procedure Diagnose(s): Abnormal uterine bleedingPost-Procedure Diagnose(s): Abnormal uterine bleeding; Status post hysterectomy; Status post bilateral salpingectomy; Status post cystoscopy TOTAL LAPAROSCOPIC HYSTERECTOMYProcedure: Total Laparoscopic Hysterectomy, bilateral salpingectomy, and cystoscopyDate of Service: 09/02/2023Faculty Surgeon: Jarrod Mercado MDAssistant Surgeon: Jonathon Braun MD (no qualified resident available)Anesthesia Type: GeneralIV Fluids: 1000 ccColloid Fluids: noneSpecimens Sent to Pathology: Uterus with cervix and Bilateral Fallopian tubesUrine Output: 400 cc of orange urine (patient received pyridium)Complications: noneEstimated Blood Loss: 200 mLPatient Status: Patient in stable condition and taken to recovery roomNarratives: Virgie Frausto is a 38 year old female with abnormal uterine bleeding desiring definitive management with hysterectomy. Risks/benefits discussed and patient desired to proceed with surgery.Description of Findings: Uterus appeared normal, normal appearing ovary and fallopian tube, normal liver edge and stomach edge, no bleeding or injury at trocar sites noted.Filmy adhesions from the liver to the anterior abdominal wall noted. Omental adhesions noted to the anterior abdominal wall near umbilicus.Summary of Procedure:After informed written consent was given, for the above procedure for above indications, the patient was taken to the operating room and general endotracheal anesthesia induced. Patient was placed in the dorsal lithotomy position, and prepped and draped. Uterine manipulator and frank were placed.A half inch incision was made in the umbilicus . The 5 mm laparoscopic trocar and laparoscopic camera were then introduced under direct visualization confirming placement in the peritoneal cavity and CO2 was then allowed to insufflate the peritoneal cavity with attention to adequate pressures. Under direct laparoscopic guidance, 2 skin incisions were made and 5 mm and 8 mm laparoscopic trocars introduced. The inspection of the pelvis then ensued with findings as above.Using the ligasure, bilateral salpingectomy was performed. The uterine ovarian ligament was ligated and transected. Using the ligasure scalpel isolating the round ligament on either side were transected. As the bladder reflection was encountered it was brought down by sharp and blunt dissection using the laparoscopic instruments. The vagina was then entered by incising around the uterine manipulator device. Specimen was delivered through the vagina.The vaginal cuff was then closed with V-lock from both angles with imbrication. Myesha powder placed at the surgical site. Area inspected, good homeostasis achieved.Attention was then turned towards the cystoscopy. The patient received an IV dose of Fluorescein and her frank catheter was removed. A 5mm 70-degree cystoscope was then placed into the bladder with normal bladder mucosa seen, no evidence of surgical injury and bilateral ureteral jets noted. The cystoscope was removed. The bladder was drained prior to leaving OR.Attention was turned to pelvis: Area inspected, good homeostasis achieved. CO2 was allowed to egress through the trocar sites, the skin incision sites were closed with: 4-0 monocryl suture and dermabond.Patient's sponge and needle counts were correct times 2. Urine was draining clear. Patient tolerated the procedure well and was awakened and taken to the PAC-U in stable condition.Jarrod Mercado MD 09/02/2023 6:32 PM 46147-7Kxojeztqh kufwWI2167-82-45A93:20:32Procedure noteTXT1.2.840.552882.1.13.104.2.7.2.92440 9|[id number] for patient ljgy49723-5Fbcyqumbb noteLNNARRATIVEFormatted C-CDA narrative textUTSAN [facility] - [address] Ar[id number] TVASCGSUOIKGGZPF9087-27-06V40:20:321.2.840 .597005.1.72.3.15|1.2.840.602750.1.13.104. 2.7.2.727879_[id number] [facility] Notes Date/Time Note Provider Source 2023-10-19 14:22:30 wTeKFSrtjRXT+dMHQxqa SlYJHamYMpr+Ee vXAG7c1PSezRUPZBA1tkXn/7sOWr5m1717 -03-11T14:22:30 Virgie Frausto is a 38 year old femalePt called requesting to discuss with clinic and have forms of hospital uploaded to [employer] from hospital visit on 09/02/23. Stated that she was not able to find any documentation on chart. Please advise. 94293-7Agndurkdm encounter YcpzLN2325-32-34C54:24:32Telephone encounter NoteTXT1.2.840.292386.1.13.104.2.7 .2.267673|[id number] for patient wjpp58059-1JalnSWKUBLRNMPOFdfwizvy d C-CDA narrative gyuh78205669Uwmapyen I GomezU[address] EhyqKkgsahkrtPazmyyoazYXVI34251936 50JKKHFUMQHZPHHXQITMQGPA1051-89-04 T14:24:321.2.840.163399.1.72.3.15| 1.2.840.900577.1.13.104.2.7.2.7278 79_[id number] Jaspreet Queen [facility] 2023-09-24 11:18:02 8SjUuwUTzprpJ86yk2xe J2cSbssVrOydRY YJdfBFdx0/OO7/OK/FZxbbJGmNvXZR1322 -02-15T11:18:02 Patient Reassessment: Hepatitis C TherapyDATE: 09/24/23Virgie Frausto is a 38 year old y/o Black or female referred to PharmD by Taiwo Wharton NP for medication management.Summary of VisitMsCasper Frausto is doing well today. She denies any side effects or missed doses of Mavyret therapy. Reports having 6 doses remaining, which is suggestive of a few missed doses.Labs completed on 08/19/23 resulted as HCV VL <10, which is suggestive of response to therapy.Reminded patient to complete end of treatment labs in a week. Orders have been placed.SVR12 due on or after 12/22/23. Next appointment with Taiwo on 02/08/24.Start date: 08/03/23Anticipated end date: 09/29/23Appropriateness of Hepatitis C Therapy:The regimen of Mavyret for 8 weeks remains appropriate for Virgie Frausto who has hepatitis C, genotype 1a, is treatment naive and non-cirrhotic.No renal or hepatic adjustments are required for this hepatitis C regimen. At this time there is no planned dose titration.Assessment of Hepatitis C Therapy:Therapeutic Goals:Patient will continue on HCV therapy at this time. Therapeutic benefit will be assessed by obtaining a HCV PCR 12 weeks after completion of HCV therapy.SVR achieved: No - patient is still on treatmentLabs and Diagnostic tests:WBC x10^3 (/CMM)Date Value08/25/2007 7.1WBC (10*3/?L)Date Value09/03/2023 11.90 (H)RBC x10^6 (/CMM)Date Value08/25/2007 3.92RBC (10*6/?L)Date Value09/03/2023 4.24HGBDate Value09/03/2023 12.7 g/dL08/25/2007 11.7 G/DLHCT (%)Date Value09/03/2023 37.401/ 33.6 (L)INR (no units)Date Value07/01/2023 1.2APTT Patient (Seconds)Date Value10/17/2019 30NA (mmol/L)Date Value09/03/2023 138K (mmol/L)Date Value09/03/2023 4.2CL (mmol/L)Date Value09/03/2023 107BUN (mg/dL)Date Value09/03/2023 7CREATININE (mg/dL)Date Value09/03/2023 0.62TOTAL BILI (mg/dL)Date Value08/19/2023 0.6BILI CONJ (mg/dL)Date Value07/01/2023 0.0BILI UNCON (mg/dL)Date Value07/01/2023 0.5T PROTEIN (g/dL)Date Value08/19/2023 8.1ALBUMIN (g/dL)Date Value08/19/2023 4.4ALK PHOS (U/L)Date Value08/19/2023 74ALT(SGPT) (U/L)Date Value11/06/2018 31ALTv (U/L)Date Value08/19/2023 11AST(SGOT) (U/L)Date Value08/19/2023 18Hepatitis C:Genotype: 1ATreatment status: naiveFibrosis score: F1Hep C VL: <10 (08/19/23)Hepatitis B screening:HBsAg (no units)Date Value07/01/2023 NegativeHBsAg Semi-Quantitative (no units)Date Value07/01/2023 0.06Allergies:No Known AllergiesImmunizations:Immunizatio n HistoryAdministered Date(s) FumnrvbtypzuXSJJ-QYR-7 COVID 19 ALLY SUCROSE VACCINE 12+, 1551-8162, 0.3 ML (30 MCG), IM PFIZER (TRAN TOP) 08/19/20231091GHBP-PLZ-3 COVID-19 MODERNA 0.25ML BOOSTER VACCINE 01/23/20227448LBLU-KZO-9 COVID-19 MODERNA 12+ YRS VACCINE 10/17/2020, 11/14/2020Vaccination history was reviewed. The patient was reminded about the importance of completing hepatitis A and B vaccinations if not immune and receiving an annual influenza vaccine as indicated.Medication Reconciliation:A medication history and reconciliation were performed (including prescription medications, supplements, over the counter, and herbal products). The medication list was updated and the patient's current medication list is included below.Prior to Admission medicationsMedication Sig Start Date End Date Taking? Authorizing Providerglecaprevir-pibrentasvir 100-40 mg Take 3 tablets by mouth in the morning. 07/24/23 Prem, Taiwo, FNPdicyclomine 20 mg tablet Take 1 tablet by mouth every 6 (six) hours as needed for Abdominal pain. 06/29/23 Arianna Whitmore MDlactulose 10 gram/15 mL oral solution Take 30 mL by mouth 3 (three) times daily as needed for Constipation or For bowel movement. 06/29/23 Arianna Whitmore MDondansetron (ZOFRAN) 4 mg tablet Take 1 tablet by mouth every 8 (eight) hours as needed for Nausea and Vomiting (N/V). 06/29/23 Arianna Whitmore MDipratropium 0.02 % nebulizer solution Inhale 2.5 mL every 8 (eight) hours as needed for Wheezing or Shortness of Breath. 06/10/23 Cheikh Boyle MDARIPiprazole (ABILIFY) 5 mg tablet Take 1 tablet by mouth in the morning. 05/15/23 Cheikh Boyle MDdoxepin 100 mg capsule Take 1 capsule by mouth at bedtime. 05/15/23 Cheikh Boyle MDtretinoin 0.075 % Crea Apply 1 g to area(s) at bedtime. 04/28/23 Cheikh Boyle MDvalACYclovir 1 gram tablet Take 1 tablet by mouth in the morning. 04/28/23 Frannie Smith PA-Calbuterol 2.5 mg /3 mL (0.083 %) nebulizer solution Inhale 3 mL every 4 (four) hours as needed for Wheezing or Shortness of Breath. 04/01/23 Cheikh Boyle MDalbuterol 90 mcg/actuation inhaler Inhale 2 Puffs every 4 (four) hours as needed for Wheezing or Shortness of Breath. 04/01/23 Cheikh Boyle MDbuPROPion SR (WELLBUTRIN SR) 150 mg SR tablet Take 1 tablet by mouth in the morning and 1 tablet in the evening. 04/01/23 Cheikh Boyle MDDULoxetine 20 mg capsule Take 1 capsule by mouth in the morning and 1 capsule in the evening. 04/01/23 Cheikh Boyle MDtopiramate 50 mg tablet Take 1 tablet by mouth in the morning and 1 tablet in the evening. 04/01/23 Cheikh Boyle MDtriamcinolone acetonide 0.1 % cream Apply to area(s) 2 (two) times daily. 08/17/20 Cheikh Boyle MDThe patient was reminded to speak with their health care provider before starting any new drug, including prescription or over the counter, natural / herbal products, or vitamins. The patient was educated not to start any antacids while on hepatitis C treatment including omeprazole, famotidine, magnesium, and calcium containing agents before consulting with the logistics team leader or hepatology clinical pharmacist.Drug Interactions:There are no significant drug-drug interactionsDrug-Food InteractionsThere are no significant drug-food interactions. This medication should be taken with food.Adverse effects:Virgie Frausto reports having the following drug reactions: headache, right sided crampsAdherence:Refill history was reviewed with the patient. Virgie Frausto states they are adherent with regimen. The patient was reminded about the refill process and re-educated on the importance of adherence.Overall medication adherence status will be discussed with the care team as deemed appropriate.Patient receives their medication from [facility].Safety Precautions: status: female - of childbearing potential (not currently )Risk Evaluation and Mitigation Strategy (REMS) Assessment: No REMS is required for this medication.Contraindications: Virgie Frausto has no contraindications to this medication.Follow up Plan:Virgie Frausto denies having any questions at this time The patient was reminded of the refill process as discussed during the medication education. Virgie Frausto was encouraged to call the hepatology pharmacist at [phone] with questions. The patient will be contacted to complete another reassessment in 1 month.Promise Cabezas PharmDClinical Pharmacist - GI/[phone] madelyn signed by Promise Cabezas [facility] at 09/24/2023 11:22 AM BQT66933-1Bhfnkzfnu encounter MxdvSE4473-64-66V17:22:49Telephone encounter NoteTXT1.2.840.035594.1.13.104.2.7 .2.605894|[id number] for patient lzcc24826-8GapxCRAMROEXDCIDayzlgpf d C-CDA narrative text[address] Jl[id number] 93WFCZIQDCYTYNTICZXNYTQW6737-51-14 T11:22:491.2.840.267175.1.72.3.15| 1.2.840.674587.1.13.104.2.7.2.7278 79_[id number] [facility] 2023-09-16 13:37:55 OZ4GXqmxaXyJhwSMJJlf F6a/5lAuFj3DhC H3Uox/kP9HvmXyyGO711MWrseZ+/dQ50542023T13:37:55 Notified patient of covid test results. Pt voiced understanding with no further concerns at this time 96613-0Ufaqmyiko encounter LjltYS4249-94-83S35:38:47Telephone encounter NoteTXT1.2.840.187777.1.13.104.2.7 .2.417814|[id number] for patient gnrm05300-6MbazYJTXOWDDNGUVpmtmvdr d C-CDA narrative ijie934346746Bswshsy D Knight RN[address]vd[id number] 74VTTYQTOIBKLKOJBRSPWHPS8183-52-11 T13:38:471.2.840.528784.1.72.3.15| 1.2.840.359390.1.13.104.2.7.2.7278 79_[id number] Gabbi Rubi RN [facility] 2023-09-08 11:05:11 ROcXXSr1Wk3lu+2qNjiO HbtWNnTohT5Fb5 6zVGRQytI/NdY7Z2w0tj9RfCMKAJtk1600 -01-30T11:05:[address] Mercado:[10:48 AM] Jarrod Mercado Elizabeth G.she cant come in as her "car is not working at the moment".I will give her another refill. If she still has pain after finishing this, she needs to come in for evaluation (in clinic or ER).[10:49 AM] Jarrod Mercadoplease make sure you document that we advised pt to come in and be seen but she cannot. Also talk to her about Medicaid transportation.[employer] message sent.CARLOTTA ROSADO RN 09/08/2023 11:05 JULIETTE ROSADO RN 09/08/2023 11:05 AM 73172-5Xadckvhiu encounter UichTM9571-74-82A67:06:03Telephone encounter NoteTXT1.2.840.938202.1.13.104.2.7 .2.024605|6597819995LYFdbflvpzi for patient mgzu12137-4IxyxNFWXDXMTDKMUeqopvxt d C-CDA narrative ptai685465440AuuqmarfrCarlotta Rosado RN[address]vd[id number] 97LJAQWETUEVLJGYAKQFJQPQ8398-25-63 T11:06:031.2.840.746906.1.72.3.15| 1.2.840.696525.1.13.104.2.7.2.7278 79_[id number] Carlotta Rosado RN [facility] 2023-09-08 10:17:17 AThO3fk7het8GT7u7eEu DjmfjTz8YbBNOO qaoEhH2tzPLkjWiW/iEFpcTCuzK/8V9210T10:17:17 Pt stated that her pain goes down to a 4 and when it Tylenol/Ibuprofen wears off- it goes to a 7. Explained to pt that she will have some pain after procedure. I will let Dr. Mercado know and will call her back. No drainage or redness at incision sites. Verbalized understanding.CARLOTTA ROSADO RN 09/08/2023 10:24 AM 06517-5Mkcmwnnpq encounter CoxpWJ4188-07-95F54:38:30Telephone encounter NoteTXT1.2.840.140395.1.13.104.2.7 .2.229304|[id number] for patient hzti04004-1OzajLXDFJGGVQNWQvfyyymi d C-CDA narrative text[id number] 56RYKSPAHYVQOQUPVLPAOQKJ8350-50-01 T10:38:301.2.840.288468.1.72.3.15| 1.2.840.337282.1.13.104.2.7.2.7278 79_[id number] [facility] 2023-09-07 15:16:29 SFHoTHADDEUS/Ella/z0aw1qa oG4fCRd+hu80DQ Jn/OR56qrgDsVyMhQsHBjWI1AbyfIc8947 -01-29T15:16:29 [employer] message sent.CARLOTTA ROSADO RN 09/07/2023 3:16 PM 29851-3Ntbfzfjws encounter PfzqTA9519-58-02T12:16:39Telephone encounter NoteTXT1.2.840.899933.1.13.104.2.7 .2.690721|8819341462JQSreezxnpc for patient dkqc71201-6IpjzILWMKNKATKVIrhgaeor d C-CDA narrative bdji985626502OyayleuaoCarlotta VALADEZ[id number] 60YVXERHDENZVIBRPRFMXQTI4273-42-85 T15:16:391.2.840.560340.1.72.3.15| 1.2.840.981986.1.13.104.2.7.2.7278 79_[id number] Carlotta Rosado RN [facility] 2023-09-04 17:15:39 SqFk7ruJA2KZDbNLzc7c B//EEwlB17kB9l rYr5Ez2mSbxY/5cofk75FyTi78dGsg0682 -01-26T17:15:39 @[address] [place] [address] on for pt to return call.CARLOTTA ROSADO RN 09/04/2023 5:16 PM 39996-7Loowjztkj encounter KnwhEU3418-73-73P54:16:07Telephone encounter NoteTXT1.2.840.730843.1.13.104.2.7 .2.267933|7902997402JYSxhuwcxup for patient jbim82770-9ZpqoPOJVRGUXGAVCakdcume d C-CDA narrative text[address]vd[id number] 47LPGXOHQDHFXGPXIREQFMSC0525-09-98 T17:16:071.2.840.425349.1.72.3.15| 1.2.840.201432.1.13.104.2.7.2.7278 79_[id number] [facility] 2023-09-04 16:23:18 gsJ5EkOYh9QQGWoEIvOu D8K0AmE3X+oOSj TSmtQkU9Ri2zjhOCAEzAHVijqP2DzW0052 -01-26T16:23:18 Patient states she is taking the tylenol and ibuprofen and it is not helping. She was told by the nurse to call back today for a follow up.[facility]/pharmacy #[id number] - [place], [place] - [phone] [facility]: Pylbgunputrzwg signed by Lena Merritt at 09/04/2023 4:24 PM WNA44806-2Mwqjqfpre encounter DxvgED6033-22-87X18:24:20Telephone encounter NoteTXT1.2.840.658911.1.13.104.2.7 .2.025099|0267810818PQMgpinnrao for patient xwwo47853-0UnodQABKJRISAMDJbmerhxu d C-CDA narrative lxoq85766159Qqgei S Hernandez[address] Rryd[id number] 47DZRBKNEMXIROEQLPEHXWVM6983-33-57 T16:24:201.2.840.808528.1.72.3.15| 1.2.840.810234.1.13.104.2.7.2.7278 79_[id number] Lena Merritt [facility] 2023-09-03 16:23:50 vVZjrN0Invc+Hx8pFwEw Rd01uh6gjtLyCu sQyHcg6rlY7Zqfhg2FadqHbvSAhNYW7376 -01-25T16:23:50 Name and verified. Per Dr. Belcher:reassured her that her surgery was uncomplicated. Make sure she ambulated so she can minimized gas pain. Take her gas-X BID. Take Ibuprofen with Tylenol 500 mg Q 6 hrs if needed. Take [place] only PRNVerbalized understanding.CARLOTTA ROSADO RN 09/03/2023 4:24 PM 31742-4Ojqswzsbo encounter IbjgJP5548-16-16W90:24:21Telephone encounter NoteTXT1.2.840.414865.1.13.104.2.7 .2.405623|[id number] for patient axkz75093-1RdwiBUNSTTJVCZXUxdmtolg d C-CDA narrative nhxi963013424Vwcrpqimf G Cervantes RNUT[address] [id number] 09MTQKHAPJYVWFSOJQFEXGQT8164-30-42 T16:24:211.2.840.226238.1.72.3.15| 1.2.840.405022.1.13.104.2.7.2.7278 79_[id number] Carlotta Rosado RN [facility] 2023-09-03 16:12:05 AELgWdC8gnl0lif7+aKW iI4sd6v+JRmb3b fd1ew28Y7dIkehpnzS9EhBe6os4z9T8937 -01-25T16:12:05 Name and verified. pt called stating that she is in a lot of pain and feels that [place] # 4 is not enough. Pt last pain was was when DC around 10-11am. Pain went to a 4-5. Four hrs later- it went back up to a 8. Pt took ibuprofen and is still in pain. Pt stated if she "new that it was going to be this bad, I would have stayed at the hospital"Dr. Mercado advised.CARLOTTA ROSADO RN 09/03/2023 4:12 PM 25964-2Wifjqvfqq encounter IemjLK8499-02-07L27:12:31Telephone encounter NoteTXT1.2.840.151313.1.13.104.2.7 .2.307794|5832267578DDRtovipken for patient aqqu54685-3NnnyKQZYRVLUWVYQipexdqq d C-CDA narrative text[id number] 76VFWXDVPQHSQUOHZRXCPDTF6796-06-66 T16:12:311.2.840.106538.1.72.3.15| 1.2.840.843927.1.13.104.2.7.2.7278 79_[id number] [facility] 2023-09-03 15:02:51 3RBKBkg4hkhQsMwBCk/o AqAtKft7aBQive j125r/4wujmEzwHMP9Fz2ePBNXkGk+2023T15:02:51 Pt is calling back says she in pain and want to make sure she has enough pain meds so want to discuss, had hysterectomy yesterday. 41315-4Xadbfrpvc encounter ZswkKL2223-06-08I44:03:49Telephone encounter NoteTXT1.2.840.023324.1.13.104.2.7 .2.146438|8960987280CROdltjucwj for patient gxwo71770-5YraqUUSNMBBUHPOApqlwebz d C-CDA narrative bzjo945495021Gbxqh [address] FhooHfxyogquyEhyatslrbMZWY34202651 39LPWVTHRJESNNFQVPJVUXRH4432-55-91 T15:03:491.2.840.150434.1.72.3.15| 1.2.840.764927.1.13.104.2.7.2.7278 79_[id number] Nata Perdomo [facility] 2023-09-03 13:00:35 iVHaSahYPiVt5u+zCtFx Z5YqbKUBTC/uqW aw37BjJslpaoRl+34hSHI6xhjVSjfo3254 -01-25T13:00:35 Pt want to discuss pain meds that were prescribed says it will not be enough to get her through her pain. Had surgery yesterday. 09857-2Dmathazse encounter KaqxBX8985-24-78I13:01:39Telephone encounter NoteTXT1.2.840.005848.1.13.104.2.7 .2.698454|[id number] for patient qnpj99907-6QacqBSEFDESBULZUjvggjus d C-CDA narrative textUT[address] [id number] 83WJFTMXYQDXYUDMGHHJPFCA0052-37-32 T13:01:391.2.840.013642.1.72.3.15| 1.2.840.853074.1.13.104.2.7.2.7278 79_[id number] [facility] 2023-09-03 08:00:00 1FqU06da9ZBUo3QhsfV9 JBItWSOrNjB5Qv 2IT3QnEMEmKtcTAeTnP5r5rC97K3Ro5940 -01-25T08:00:00 Incision sites x [address] Dr Mercado; pt instructed to sponge bathe for the next few days and remove drsgs once she showers and drsgs get wet; Understanding verbalized 50702-1Ufkzb JcflWY4197-60-39Z95:12:51Nurse NoteTXT1.2.840.424572.1.13.104.2.7 .2.599404|5776655735YMEgnyoirja for patient azfd29569-6DzsnBDCPURUAGYSKhaayrtn d C-CDA narrative xncf396172813Vervhn L Anders RNUT[address] [id number] 08LGTDEQTSUJXVRCTKHZHFLV1951-03-00 T08:12:511.2.840.972260.1.72.3.15| 1.2.840.921480.1.13.104.2.7.2.7278 79_[id number] Kaley Alonzo RN [facility] 2023-09-03 08:00:00 BVK2Xnb37NZHSxx915Yg hjemgta37N0qg6 +7wTkW814zR9+mhL/G8lDDXy9BJqJp7977 -01-25T08:00:[address] Mercado; Instructed by Dr Mercado NO tampons, douching, sex, tub baths, swimming, or lifting more than 10lbs; Understanding Verbalized 81131-8Mxrhi TxfcLY8426-65-48W83:15:38Nurse NoteTXT1.2.840.283147.1.13.104.2.7 .2.248128|0676771423NWGnftyswnx for patient fbqc47840-4TeclLDAWZBLVXXXNdybjxxj d C-CDA narrative textUT[address] GhylQqrtdsolfMqhhibbqbYBBU47914848 48ODKYLIYZKJOBXHAFQNAVJV2531-21-10 T08:15:381.2.840.487957.1.72.3.15| 1.2.840.076842.1.13.104.2.7.2.7278 79_[id number] [facility] 2023-09-02 17:00:02 eMFM3Rx+cdPtVofYQsSP 0u8gIuD9GLlFGa ljPxa6eCkwdJef9SF6Rvrveu2+RxaG7632 -01-24T17:00:02 CALLED AND UPDATED PT'S BHARAT ATKINS, AT 1701. - TOLU GONZALES. 71139-0Tepvg IdrbWM3023-78-59P93:01:23Nurse NoteTXT1.2.840.387026.1.13.104.2.7 .2.393914|5145689195DWMlzhupjaw for patient icxo54622-8UvkhKWOKUBSVCFMXhghdhtl d C-CDA narrative shtw810116888Pozjhm C Damian RNUT[address] [id number] 46SFTYHGMVPQDUGVUFJRUEOB0732-22-40 T17:01:231.2.840.909095.1.72.3.15| 1.2.840.979028.1.13.104.2.7.2.7278 79_[id number] Seanpierce Maurice RN [facility] 2023-09-01 16:11:36 BvDoEJ9fJmI/o+rtuD10 EKM+h+fTzNRgl9 RuPvvrdTH8Xsso5fQ5Lh8SQ6NjlYe18673 -01-23T16:11:36 Patient dropped of pre op clearance form from PCP. Clearance form given to Dr. Mercado. Dr. Mercado states she will perform the scheduled surgery tomorrow 09/02/2023. Camelia Lew with surgery scheduling advised. Patient given number to contact pre op nurse for pre op instructions.Ulices Adler RN 09/01/2023 4:12 PM 51775-3Ytbgikzzv encounter NsqjFF6296-78-61B19:14:11Telephone encounter NoteTXT1.2.840.280359.1.13.104.2.7 .2.747331|2346791053HPMziqaypnk for patient zrgb29633-5VnjuZFIPMYGYSHBBfpagpmt d C-CDA narrative text[id number] 15OWDBQICTYHIRUZMFVHVYIL3270-57-48 T16:14:111.2.840.000186.1.72.3.15| 1.2.840.692299.1.13.104.2.7.2.7278 79_[id number] [facility] 2023-09-01 12:52:20 JW0tC/ug9yTLD+CN6omV zpZIsSOnmTVV+g G6Sd9rPIJnPHou3RRgvg15qdf1Zxi67128 -01-23T12:52:20 Pt called. 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 Hall with lab results to take with her PCP appt today at 3pm. Advised pt to fill out a KULDIP and when her appt is done, she must come by office to either drop off clearance or cancel her procedure. Verbalize understanding.CARLOTTA ROSADO RN 09/01/2023 12:54 PM 12900-3Lfxuzlgzw encounter JqcvYL3494-34-43Z28:54:20Telephone encounter NoteTXT1.2.840.506432.1.13.104.2.7 .2.589032|[id number] for patient dwmy58093-0IiayMOMAFQEZBGIGiscbnpu d C-CDA narrative [id number] Rosado RN[address] Wk[id number] 25ADKAZDYAOMYNPNDKPAEIZP7839-03-27 T12:54:201.2.840.537737.1.72.3.15| 1.2.840.198452.1.13.104.2.7.2.7278 [id number] Carlotta Rosado RN [facility] 2023-09-01 11:39:17 tdYm3ZKLN+x2pppnlVa3 hyLozZptnu/02Z duxAoHwIFhM0WnLOe+5PaQfFgFDa8S1952 -01-23T11:39:17 Pt called. [facility] [phone]. They need to know what exactly needs to be done. If we have a form. Called office. Explained to them that we do not have a form. That she must be cleared by today to have surgery tomorrow. Office stated that they will call pt.CARLOTTA ROSADO RN 09/01/2023 11:42 AM 83670-0Aidlkiooo encounter VzuoYA5750-57-67Q61:42:38Telephone encounter NoteTXT1.2.840.032897.1.13.104.2.7 .2.602543|[id number] for patient urzd01719-8CiquVIWVRUAUBLRZlpjbfvr d C-CDA narrative text[address] Ht[id number] 53EYTSHJMZKMLKZTSZOUYVYF1039-81-37 T11:42:381.2.840.769924.1.72.3.15| 1.2.840.265588.1.13.104.2.7.2.7278 [id number] [facility] 2023-09-01 09:59:32 18xO+37nHg0W5Fz+P+XA 4kRKJNbLUp4z7R lJALp8uQ7QrPWcHx+ijrXn/246tEjB0756 -01-23T09:59:32 Pt called office. Pt stated that she fired Dr. Hernandez has her PCP. Advised pt that she must be cleared by a PCP before surgery to be done. Explained the importance of having clearance and her recovery. Pt stated that she will find a PCP and get cleared today and will call us back.Dr. Mercado advised. Jewel Bearing Turner/Door Fitter also advised. 71423-4Qdwbdqmyi encounter TulgSU0081-89-75O40:03:06Telephone encounter NoteTXT1.2.840.007220.1.13.104.2.7 .2.101099|[id number] for patient orti32820-8KyvnFSUMPKQKANELtjpaqyn d C-CDA narrative text[id number] 48XZQVTCILLPHTVDSDEHLSVU2047-14-72 T10:03:061.2.840.417711.1.72.3.15| 1.2.840.641311.1.13.104.2.7.2.7278 [id number] [facility] 2023-09-01 09:15:00 7nd+/Llj1vdhxb9kRTaH L91NXNPlfA9OXP Tl5OOPvIPNNMIokzclv+wqvf6MOZmJ3482 -01-23T09:15:00 Images from the original note were not included.Venipuncture collection performed by clean technique on the right anticubitus. Total of 1 attempts were made. Slight pressure and a bandage/dressing were applied to the site(s). The patient experienced no complications. The following specimens were processed according to instructions and sent to [facility] laboratories per lab order on 09/01/2023 :LT BLUESST 1REDLAV 3PPTDK GREEN (LiHep)DK GREEN (SodH)GRAYDK BLUE (K2)DK BLUE (S)ACDBlood CultureNIPT/NTD 34958-6Qodxi ZfpvHF3993-25-26D25:52:36Nurse NoteTXT1.2.840.542580.1.13.104.2.7 .2.643559|[id number] for patient lzpc54615-2Vijxr NoteLNNARRATIVEFormatted C-CDA narrative [id number] 31MNLOBWIDKKXXJXIJKCCDTU5253-73-82 T08:52:361.2.840.079411.1.72.3.15| 1.2.840.588568.1.13.104.2.7.2.7278 [id number] [facility] 2023-09-01 09:15:00 jGqoGt3EfLljnFFskv0v mfztXj3UwLlRcF vS23pAPCq29EK1fp4Wq5n2otyesE0c1848 -01-23T09:15:00Addended by: WILLIAMS NEGRO on: 09/01/2023 01:19 PMModules accepted: Orders 40663-7Cwcgsyca CiakjklaOK8185-59-87C19:19:01Adden dum DocumentTXT1.2.840.001901.1.13.104 .2.7.2.963456|[id number] e for patient mlqk60053-6QgowZFPFFKHDKDIBdfpaxet d C-CDA narrative [id number] A Gonzalez[address] Vi[id number] 53PHDAKPNDQJECTDVULJGGEZ9645-26-72 T13:19:011.2.840.309289.1.72.3.15| 1.2.840.854684.1.13.104.2.7.2.7278 79_[id number] Williams Negro [facility] 2023-09-01 08:59:10 3SLNS3kVxlrr2wVRXNQy PW2bN+8hBhvNlJ 0BltQfsy5peDmjFER+ub+LOjktE+7a5671T08:59:[address] Mercado- Unfortunately, she did not get clearance from her PCP. As stated at preop visit- she must have both clearance to proceed with her surgery. Therefore, we must cancel procedure.Named and verified. Pt advised of above. Pt is upset as Dr. Hernandez told her at visit- that if she is not able to get seen by psych- he will clear her base off her lab results. Explained that unfortunately, he did not document that is his notes. Pt stated that she is on her way to his office.Dr. Mercado advised.CARLOTTA ROSADO RN 09/01/2023 9:04 AM 63540-0Erezwqowy encounter BrcxJS0523-96-86N72:04:55Telephone encounter NoteTXT1.2.840.923837.1.13.104.2.7 .2.726283|[id number] for patient yqiy20914-8IefaPCWORRJBPZYSthkrfip d C-CDA narrative sharon[id number] 89SECKPFXRDEXWVTBNDZCRVV6313-36-82 T09:04:551.2.840.370980.1.72.3.15| 1.2.840.569457.1.13.104.2.7.2.7278 79_[id number] [facility] 2023-09-01 07:52:08 DwA3yHG0Cs6awEQSKj0H adB++QyWzsoTOX hbey6npeGkIVoxGVI8Wd3Z2PI6B5Zv6146 -01-23T07:52:08 Pt want to make sure clinic received her clearance for surgery from her other physicians. 38139-5Uqhxzjpts encounter AxssSV6721-57-59O01:52:54Telephone encounter NoteTXT1.2.840.967223.1.13.104.2.7 .2.015999|[id number] for patient mwmw72097-0MigtYEQPGWJBXGGMohnacqv d C-CDA narrative [id number] [id number] 58OVAVKWOZIGNHPJYVJRUYPO1964-26-75 T07:52:541.2.840.906166.1.72.3.15| 1.2.840.860883.1.13.104.2.7.2.7278 79_[id number] Nata Perdomo [facility] 2023-08-31 13:11:37 n9NR/cAf00krlEVJBsKC 4z7JvWbK2XRMlp V41NopTj9+WL5GoNNHI8olkD8L7V7a2508 -01-22T13:11:37 Patient Reassessment: Hepatitis C TherapyDATE: 08/31/23Virgie Frausto is a 38 year old y/o Black or female referred to PharmD by Taiwo Wharton NP for medication management.Summary of VisitMs. Lisbet is doing well today. She denies any missed doses of Mavyret therapy. Reports having ~28 doses remaining, which is suggestive of adherence as patient just started 2nd month of therapy.Patient reports side effects of mild fatigue. Patient is taking with food. Informed patient she make take in evenings to sleep through most of the fatigue. She confirms understanding.Will follow-up with patient in 1 month. Next appointment with Taiwo on 11/16/23.Start date: 08/03/23Anticipated end date: 09/27/23Appropriateness of Hepatitis C Therapy:The regimen of Mavyret for 8 weeks remains appropriate for Virgie Frausto who has hepatitis C, genotype 1a, is treatment naive and non-cirrhotic.No renal or hepatic adjustments are required for this hepatitis C regimen. At this time there is no planned dose titration.Assessment of Hepatitis C Therapy:Therapeutic Goals:Patient will continue on HCV therapy at this time. Therapeutic benefit will be assessed by obtaining a HCV PCR 12 weeks after completion of HCV therapy.SVR achieved: No - patient is still on treatmentLabs and Diagnostic tests:WBC x10^3 (/CMM)Date Value08/25/2007 7.1WBC (10*3/?L)Date Value08/19/2023 7.16RBC x10^6 (/CMM)Date Value08/25/2007 3.92RBC (10*6/?L)Date Value08/19/2023 4.43HGBDate Value08/19/2023 13.4 g/dL08/25/2007 11.7 G/DLHCT (%)Date Value08/19/2023 39.101/ 33.6 (L)INR (no units)Date Value07/01/2023 1.2APTT Patient (Seconds)Date Value10/17/2019 30NA (mmol/L)Date Value08/19/2023 138K (mmol/L)Date Value08/19/2023 4.2CL (mmol/L)Date Value08/19/2023 106BUN (mg/dL)Date Value08/19/2023 8CREATININE (mg/dL)Date Value08/19/2023 0.75TOTAL BILI (mg/dL)Date Value08/19/2023 0.6BILI CONJ (mg/dL)Date Value07/01/2023 0.0BILI UNCON (mg/dL)Date Value07/01/2023 0.5T PROTEIN (g/dL)Date Value08/19/2023 8.1ALBUMIN (g/dL)Date Value08/19/2023 4.4ALK PHOS (U/L)Date Value08/19/2023 74ALT(SGPT) (U/L)Date Value11/06/2018 31ALTv (U/L)Date Value08/19/2023 11AST(SGOT) (U/L)Date Value08/19/2023 18Hepatitis C:Genotype: 1ATreatment status: naiveFibrosis score: F1Hep C VL: 1,248,796 (05/13/23)Hepatitis B screening:HBsAg (no units)Date Value07/01/2023 NegativeHBsAg Semi-Quantitative (no units)Date Value07/01/2023 0.06Allergies:No Known AllergiesImmunizations:Immunizatio n HistoryAdministered Date(s) DsgelfntpyosAFMY-AYG-2 COVID 19 ALLY SUCROSE VACCINE 12+, 2670-1325, 0.3 ML (30 MCG), IM PFIZER (TRAN TOP) 08/19/20232899MZUS-XIA-8 COVID-19 MODERNA 0.25ML BOOSTER VACCINE 01/23/20224933LUIR-GGA-1 COVID-19 MODERNA 12+ YRS VACCINE 10/17/2020, 11/14/2020Vaccination history was reviewed. The patient was reminded about the importance of completing hepatitis A and B vaccinations if not immune and receiving an annual influenza vaccine as indicated.Medication Reconciliation:A medication history and reconciliation were performed (including prescription medications, supplements, over the counter, and herbal products). The medication list was updated and the patient's current medication list is included below.Prior to Admission medicationsMedication Sig Start Date End Date Taking? Authorizing Providerglecaprevir-pibrentasvir 100-40 mg Take 3 tablets by mouth in the morning. 07/24/23 Taiwo Wharton FNPdicyclomine 20 mg tablet Take 1 tablet by mouth every 6 (six) hours as needed for Abdominal pain. 06/29/23 Arianna Whitmore MDlactulose 10 gram/15 mL oral solution Take 30 mL by mouth 3 (three) times daily as needed for Constipation or For bowel movement. 06/29/23 Arianna Whitmore MDondansetron (ZOFRAN) 4 mg tablet Take 1 tablet by mouth every 8 (eight) hours as needed for Nausea and Vomiting (N/V). 06/29/23 Arianna Whitmore MDipratropium 0.02 % nebulizer solution Inhale 2.5 mL every 8 (eight) hours as needed for Wheezing or Shortness of Breath. 06/10/23 Cheikh Boyle MDARIPiprazole (ABILIFY) 5 mg tablet Take 1 tablet by mouth in the morning. 05/15/23 Cheikh Boyle MDdoxepin 100 mg capsule Take 1 capsule by mouth at bedtime. 05/15/23 Cheikh Boyle MDtretinoin 0.075 % Crea Apply 1 g to area(s) at bedtime. 04/28/23 Cheikh Boyle MDvalACYclovir 1 gram tablet Take 1 tablet by mouth in the morning. 04/28/23 Frannie Smith PA-Calbuterol 2.5 mg /3 mL (0.083 %) nebulizer solution Inhale 3 mL every 4 (four) hours as needed for Wheezing or Shortness of Breath. 04/01/23 Cheikh Boyle MDalbuterol 90 mcg/actuation inhaler Inhale 2 Puffs every 4 (four) hours as needed for Wheezing or Shortness of Breath. 04/01/23 Cheikh Boyle MDbuPROPion SR (WELLBUTRIN SR) 150 mg SR tablet Take 1 tablet by mouth in the morning and 1 tablet in the evening. 04/01/23 Cheikh Boyle MDDULoxetine 20 mg capsule Take 1 capsule by mouth in the morning and 1 capsule in the evening. 04/01/23 Cheikh Boyle MDtopiramate 50 mg tablet Take 1 tablet by mouth in the morning and 1 tablet in the evening. 04/01/23 Cheikh Boyle MDtriamcinolone acetonide 0.1 % cream Apply to area(s) 2 (two) times daily. 08/17/20 Cheikh Boyle MDThe patient was reminded to speak with their health care provider before starting any new drug, including prescription or over the counter, natural / herbal products, or vitamins. The patient was educated not to start any antacids while on hepatitis C treatment including omeprazole, famotidine, magnesium, and calcium containing agents before consulting with the logistics team leader or hepatology clinical pharmacist.Drug Interactions:There are no significant drug-drug interactionsDrug-Food InteractionsThere are no significant drug-food interactions. This medication should be taken with food.Adverse effects:Virgie Frausto reports having the following drug reactions: headache, right sided crampsAdherence:Refill history was reviewed with the patient. Virgie Frausto states they are adherent with regimen. The patient was reminded about the refill process and re-educated on the importance of adherence.Overall medication adherence status will be discussed with the care team as deemed appropriate.Patient receives their medication from [facility].Safety Precautions: status: female - of childbearing potential (not currently )Risk Evaluation and Mitigation Strategy (REMS) Assessment: No REMS is required for this medication.Contraindications: Virgie Frausto has no contraindications to this medication.Follow up Plan:Virgie Frausto denies having any questions at this time The patient was reminded of the refill process as discussed during the medication education. Virgie Frausto was encouraged to call the hepatology pharmacist at [phone] with questions. The patient will be contacted to complete another reassessment in 1 month.Promise Cabezas, PharmDClinical Pharmacist - GI/[phone] madelyn signed by Promise CabezasRESEARCH [facility] at 08/31/2023 1:16 PM ZKO00017-5Zyszehkwx encounter CuviYQ9911-23-74Q68:16:04Telephone encounter NoteTXT1.2.840.527502.1.13.104.2.7 .2.335203|[id number] for patient srgz83615-2TvwsJONAFFSTLVPJxaufkaf d C-CDA narrative [id number] Rice [address] EqlbKaalnisecTkzuscxoeNXZK25561145 35SSMHKOJCQZDGSAESLAPOSX2918-57-79 T13:16:041.2.840.669565.1.72.3.15| 1.2.840.452425.1.13.104.2.7.2.7278 [id number] Promise Cabezas [facility] 2023-08-31 09:53:47 eZOGgtxoBZioAJUmJhsi x2m9LUZuRt7jmb eLbw+a0lF+E8YcSvPcsmTn3+ToQN/A2024 T09:53:47 Images from the original note were not included.Your procedure is at [facility] on 09/02/23. The address is [address] [place] [address], [address]. [facility] nursing staff will call you the workday before your procedure to let you know what time to arrive.On the day of your procedure, please go inside that door and check in at the desk.Please note: You may not travel home alone and that includes in a taxi or by bus. We must speak to your Responsible Adult (who will be picking you up) the morning of your procedure, before the start of your procedure. This person must be an adult over the age of 18 years of age.Do not eat any solid food after midnight the night before surgery. You may have sips of clear liquids such as water, gatorade, and sprite up until two hours before your scheduled procedure.You may take your medications with a sip of water as directed by physician.Anticoagulants will be per physician guidance. Medication Note(s)/Instructions:Instructions given to hold topiramate evening before and morning of surgery.Pending screening, we may test for COVID. If a patient tests positive, their cases are cancelled and/or rescheduled. COVID SCREENING NOTE: Denies COVID symptoms, no testing required.Additional requests, questions, concerns:n/a. CB number provided.Patient verbalized understanding of pre-op instructions and voiced no further questions at this time. 93694-7Umgeb EonrIT7044-27-27X99:54:41Nurse NoteTXT1.2.840.798513.1.13.104.2.7 .2.427709|[id number] for patient bzwj36846-1FeylQZVJWBCRYJSUxttakpz d C-CDA narrative text[address] Eb[id number] 47EZCVAWMCBORDXFQSSPQHFW4989-35-41 T09:54:411.2.840.469497.1.72.3.15| 1.2.840.139984.1.13.104.2.7.2.7278 [id number] [facility] 2023-08-28 08:43:12 uQSXzRnvD5M7A+fAMV6m NsPdvcHeItt7oG fLob5kqaADDrFlZCaEQ13mr8PJMytg6071 -01-19T08:43:12 First attempt to contact Virgie Frausto to verify compliance and assess tolerance of her specialty medication, Mavyret. No answer. Left voicemail asking patient to return call to clinical pharmacist at [phone]. If no return call from patient, will attempt again at a later date.Promise Cabezas, PharmDClinical Pharmacist - GI/[phone] madelyn signed by Promise CabezasRESEARCH MED[facility] at 08/28/2023 8:45 AM GTH79433-0Bvpndgdug encounter ZqumFO7901-73-07J07:45:07Telephone encounter NoteTXT1.2.840.629412.1.13.104.2.7 .2.802529|[id number] for patient aecv02340-2WcksZEXPTXPRLYHKnmuxnag d C-CDA narrative uhrm864037455Xbcfh Rice [address]vdG[id number] 54ZZUKDFTCALQEVJCWCSTGYT6757-63-83 T08:45:071.2.840.428938.1.72.3.15| 1.2.840.963303.1.13.104.2.7.2.7278 79_[id number] Promise Cabezas [facility] 2023-08-27 14:50:08 7Y407yX21P17ElrYd3TU vJkwRmgcoZJ1X1 uj3I5xkc7BreTdqK2X5J1QM+qk4j2u9054 -01-18T14:50:[address] Would recommend to await Dr. Boyle's returnPlease let patient know 70429-2Onhhijuxq encounter UxgnXL2931-38-52Y00:50:30Telephone encounter NoteTXT1.2.840.555231.1.13.104.2.7 .2.081661|[id number] for patient hbsi89128-8SeuqBRQCYUKIYYYUemmxjkr d C-CDA narrative textNP-FAMILY MIDLEVEL PROVIDERNP-FAMILY MIDLEVEL PROVIDER[id number] 27AEEOBIQDBVALZZMIKVNAPW8554-55-70 T14:50:301.2.840.552992.1.72.3.15| 1.2.840.994979.1.13.104.2.7.2.7278 79_[id number] TRANSITIONAL LIVING SPECIALIST-FAMILY MIDLEVEL PROVIDER [facility] 2023-08-27 14:10:41 DTprhnVpL4vVU5cM5fbk gAlNipH0U+DqfC xJyYmIiTaQFdFqCHN9rr7HBoTmj4Ch6491 -01-18T14:10:41 Per patient, During OV with Dr. Boyle informed her if she can't get seen for psychiatrist she'll be cleared based on lab results come back normal. Patient is needing a clearance for surgery for Dr. Mercado. 48071-9Ckgyyqfob encounter CqirTN2501-19-99C35:14:06Telephone encounter NoteTXT1.2.840.160234.1.13.104.2.7 .2.618060|[id number] for patient reqx61929-7SlcpAHCIKYPCWLDWlkcpveq d C-CDA narrative sfme887252333Bdscbm M Serrano MA[id number] 04ZPXKHRCQZBBEVGVGVRMMLF4779-27-85 T14:14:061.2.840.248170.1.72.3.15| 1.2.840.567931.1.13.104.2.7.2.7278 79_[id number] Malena Rey MA [facility] 2023-08-27 13:42:59 /ue5bpHqkEaIJiOgpE0S Q64YkRDgCVih+X gMeVdgQf77r43pcc5z2igfJzc1MMMY8409 -01-18T13:42:59 Pcp sent referral for psychiatry and psychological eval . Pending that. Noted in chart for its for Hysterectomy. To follow up on that 13516-3Dmirgdjig encounter LdkdTJ2577-43-23I44:43:55Telephone encounter NoteTXT1.2.840.210652.1.13.104.2.7 .2.208378|[id number] for patient edpm73017-9VbtkDAEKQDDEHRVQttwhpbl d C-CDA narrative text-FAMILY MEDICINE STAFF-FAMILY [id number] 13YJXORRDLSWMWIIKTZYCMMU1926-02-60 T13:43:551.2.840.934080.1.72.3.15| 1.2.840.305883.1.13.104.2.7.2.7278 79_[id number] -FAMILY MEDICINE [facility] 2023-08-27 11:01:07 GFDxZIXoQQz80ksfiJuZ GNx2EKsfF1S7+U iiHWolsKHgVRZQkkFY/4+NUA9IVmNU6668 -01-18T11:01:07 Patient is needing clearance for surgery. 79859-3Eqkcwopgp encounter CbxnKJ6278-40-61Q21:01:21Telephone encounter NoteTXT1.2.840.247198.1.13.104.2.7 .2.845877|[id number] for patient jcfq38720-2NllgPHEEEHLFSWJVwafjytd d C-CDA narrative xtbj023664320Jmsfgsrio CALDERÓN[address]tonTX[place] 68RNWNYPXMWAPAMYLETFUGSK3071-53-06 T11:01:211.2.840.854964.1.72.3.15| 1.2.840.289434.1.13.104.2.7.2.7278 79_[id number] Malena Rey HILARY [facility] 2023-08-27 10:25:21 noufK2o69Xre+eDIjfOF wHxvpMYilZ89l4 A9LBMGNhq8wF/6tbrzkp76FgyfIP5c5112 -01-18T10:25:21 CBC which looks at blood count looks relatively stable. No concernCmp which looks at kidney, liver and electrolytes looks okay. 10697-2Dhvltomde encounter IdocND8603-02-91M52:26:56Telephone encounter NoteTXT1.2.840.806076.1.13.104.2.7 .2.155462|[id number] for patient smnk59876-2IuhfSXZSRJAQUMAWaewgncr d C-CDA narrative text-FAMILY MEDICINE STAFF-FAMILY MEDICINE STAFF[id number] 67STKVFQGVLBRQRAYUMGOPLO1822-42-30 T10:26:561.2.840.442935.1.72.3.15| 1.2.840.735717.1.13.104.2.7.2.7278 79_[id number] -FAMILY MEDICINE STAFF [facility] 2023-08-26 13:21:11 QDcLEsl0giBYCieGksY8 uclIGiLHHZSchk dH0zgt1Fl5fOLzv7zUFjBBrpFklNxk6003 -01-17T13:21:11 Please view labs for patient, patient is wanting lab results due to having procedure on 31-70-7691Ekcryxdnzdgqzy signed by Malena Rey MA at 08/26/2023 1:21 PM PHM33923-0Hzpogtyun encounter UhwtCY9085-74-11J06:21:54Telephone encounter NoteTXT1.2.840.953115.1.13.104.2.7 .2.751841|[id number] for patient qyeq90169-0EeytCZHMUCGWTNILykoxasg d C-CDA narrative knlw901161224Utmpne M Serrano [id number] 92JIYFMYFQLQQMNQYXFXNCEU8963-72-83 T13:21:541.2.840.582415.1.72.3.15| 1.2.840.511200.1.13.104.2.7.2.7278 79_[id number] Malena Rey MA [facility] 2023-08-21 07:43:25 Y29C0NVSXwAX5Ga3Ezb0 qGD8+Bts94ahYt [facility]/iPwCxfxkd3QzgEPmiMdC38KTY9762 -01-12T07:43:25 Spoke with patient and informed her labs have not been reviewed yet by Dr. Boyle. Once they have been reviewed we will give her a call with results. Patient understood and has no further questions. 10950-7Nfthejjua encounter BmybUF2545-28-13E61:46:00Telephone encounter NoteTXT1.2.840.860308.1.13.104.2.7 .2.378753|[id number] for patient crcd62422-2PzzbCUMYWPOXIAVHlzroevj d C-CDA narrative arat223545216Xelbqf M Serrano [id number] 97WWIFQZRUCULJIDOLFUZXER7038-62-47 T07:46:001.2.840.367689.1.72.3.15| 1.2.840.514497.1.13.104.2.7.2.7278 79_[id number] Malena Rey MA [facility] 2023-08-20 11:17:34 fTeQmySb/7GWyjVuh3pe IlVN75bGKpUGSD TCehSd0khegFHb+GC/bteZ5hjh9qv51328 -01-11T11:17:34 Virgie Frausto is a 38 year old femalePatient called stating that she had labs done on 08/19 and would like someone to give her a call to explain those results and to make sure there is not going to be any affect for her surgery that is coming up on 09/02Please advise 69562-3Smmoerrru encounter OqhjUT9871-05-64T73:19:35Telephone encounter NoteTXT1.2.840.682279.1.13.104.2.7 .2.122102|[id number] for patient ppzo74109-8XmqeRFQSWVGTJRZZzmwinif d C-CDA narrative yehv46781751Buqoczgk R Salazar[address] QjeeWriseckcrZegnoprldZNYQ24513719 00RARTTKLQJULMPFDJBJPEMG9389-49-42 T11:19:351.2.840.502391.1.72.3.15| 1.2.840.470691.1.13.104.2.7.2.7278 79_[id number] Harsh Garcia [facility] 2023-08-19 16:30:00 3vJhgAw1aaVoe0zNr8sv GkYR+KBBifJsml 1Sqi+hy81H7zJtep1bK8YVXl/sZKYY33702023T16:30:00 Images from the original note were not included.Venipuncture collection performed by clean technique on the right forearm(s). Total of 1 attempts were made. Slight pressure and a bandage/dressing were applied to the site(s). The patient experienced no complications. The following specimens were processed according to instructions and sent to [facility] laboratories per lab order on 08/19/2023:LT BLUE1 SSTRED1 LAV1 PPTDK GREEN (LiHep)DK GREEN (SodH)GRAYDK BLUE (K2)DK BLUE (S)ACDBlood CultureNIPT/NTD 49528-5Vlcnq TcscKX6542-37-65P22:13:14Nurse NoteTXT1.2.840.212539.1.13.104.2.7 .2.547689|[id number] for patient ptih64111-3Luaqc NoteLNNARRATIVEFormatted C-CDA narrative textUT[address] SnphS[id number] 65YDWHKGBWZCSOXRGLSWEQGD3294-33-76 T17:13:141.2.840.795379.1.72.3.15| 1.2.840.211016.1.13.104.2.7.2.7278 79_[id number] [facility] 2023-08-12 13:13:38 CslHLOq6AY7PtaEoM+aP YgR+Yzs+NSU3/c IoYv1NbFW9e7yAXYNbAaMcZJHnWfXM9709 -01-03T13:13:38 Patient Reassessment: Hepatitis C TherapyDATE: 08/12/23AlieKristina Frausto is a 38 year old y/o Black or female referred to PharmD by Taiwo Wharton NP for medication management.Summary of VisitMs. Lisbet is doing well today. She denies any missed doses of Mavyret therapy. Reports having 19 doses remaining.Patient reports side effects of headache and right sided cramping. Patient is taking with food. Informed her that she may take Tylenol (limit to 2g/daily), Advil, Motrin, or Aleve for pain as recommended by doctor.Will follow-up with patient in 3 months. Next appointment with Taiwo on 11/16/23.Start date: 08/03/23Anticipated end date: 09/27/23Appropriateness of Hepatitis C Therapy:The regimen of Mavyret for 8 weeks remains appropriate for Virgie Frausto who has hepatitis C, genotype 1a, is treatment naive and non-cirrhotic.No renal or hepatic adjustments are required for this hepatitis C regimen. At this time there is no planned dose titration.Assessment of Hepatitis C Therapy:Therapeutic Goals:Patient will continue on HCV therapy at this time. Therapeutic benefit will be assessed by obtaining a HCV PCR 12 weeks after completion of HCV therapy.SVR achieved: No - patient is still on treatmentLabs and Diagnostic tests:WBC x10^3 (/CMM)Date Value08/25/2007 7.1WBC (10*3/?L)Date Value07/01/2023 5.41RBC x10^6 (/CMM)Date Value08/25/2007 3.92RBC (10*6/?L)Date Value07/01/2023 4.45HGBDate Value07/01/2023 13.3 g/dL08/25/2007 11.7 G/DLHCT (%)Date Value07/01/2023 39.101 33.6 (L)INR (no units)Date Value07/01/2023 1.2APTT Patient (Seconds)Date Value10/17/2019 30NA (mmol/L)Date Value07/01/2023 135K (mmol/L)Date Value07/01/2023 4.4CL (mmol/L)Date Value07/01/2023 107BUN (mg/dL)Date Value07/01/2023 7CREATININE (mg/dL)Date Value07/01/2023 0.69TOTAL BILI (mg/dL)Date Value07/01/2023 0.7BILI CONJ (mg/dL)Date Value07/01/2023 0.0BILI UNCON (mg/dL)Date Value07/01/2023 0.5T PROTEIN (g/dL)Date Value07/01/2023 8.0ALBUMIN (g/dL)Date Value07/01/2023 4.2ALK PHOS (U/L)Date Value07/01/2023 86ALT(SGPT) (U/L)Date Value11/06/2018 31ALTv (U/L)Date Value07/01/2023 25AST(SGOT) (U/L)Date Value07/01/2023 26Hepatitis C:Genotype: 1ATreatment status: naiveFibrosis score: F1Hep C VL: 1,248,796 (05/13/23)Hepatitis B screening:HBsAg (no units)Date Value07/01/2023 NegativeHBsAg Semi-Quantitative (no units)Date Value07/01/2023 0.06Allergies:No Known AllergiesImmunizations:Immunizatio n HistoryAdministered Date(s) [id number] COVID-19 MODERNA 0.25ML BOOSTER VACCINE 01/23/[id number] COVID-19 MODERNA 12+ YRS VACCINE 10/17/2020, 11/14/2020Vaccination history was reviewed. The patient was reminded about the importance of completing hepatitis A and B vaccinations if not immune and receiving an annual influenza vaccine as indicated.Medication Reconciliation:A medication history and reconciliation were performed (including prescription medications, supplements, over the counter, and herbal products). The medication list was updated and the patient's current medication list is included below.Prior to Admission medicationsMedication Sig Start Date End Date Taking? Authorizing Providerglecaprevir-pibrentasvir 100-40 mg Take 3 tablets by mouth in the morning. 07/24/23 Prem, Taiwo, FNPdicyclomine 20 mg tablet Take 1 tablet by mouth every 6 (six) hours as needed for Abdominal pain. 06/29/23 Arianna Whitmore MDlactulose 10 gram/15 mL oral solution Take 30 mL by mouth 3 (three) times daily as needed for Constipation or For bowel movement. 06/29/23 Arianna Whitmore MDondansetron (ZOFRAN) 4 mg tablet Take 1 tablet by mouth every 8 (eight) hours as needed for Nausea and Vomiting (N/V). 06/29/23 Arianna Whitmore MDipratropium 0.02 % nebulizer solution Inhale 2.5 mL every 8 (eight) hours as needed for Wheezing or Shortness of Breath. 06/10/23 Cheikh Boyle MDARIPiprazole (ABILIFY) 5 mg tablet Take 1 tablet by mouth in the morning. 05/15/23 Cheikh Boyle MDdoxepin 100 mg capsule Take 1 capsule by mouth at bedtime. 05/15/23 Cheikh Boyle MDtretinoin 0.075 % Crea Apply 1 g to area(s) at bedtime. 04/28/23 Cheikh Boyle MDvalACYclovir 1 gram tablet Take 1 tablet by mouth in the morning. 04/28/23 Frannie Smith PA-Calbuterol 2.5 mg /3 mL (0.083 %) nebulizer solution Inhale 3 mL every 4 (four) hours as needed for Wheezing or Shortness of Breath. 04/01/23 Cheikh Boyle MDalbuterol 90 mcg/actuation inhaler Inhale 2 Puffs every 4 (four) hours as needed for Wheezing or Shortness of Breath. 04/01/23 Cheikh Boyle MDbuPROPion SR (WELLBUTRIN SR) 150 mg SR tablet Take 1 tablet by mouth in the morning and 1 tablet in the evening. 04/01/23 Cheikh Boyle MDDULoxetine 20 mg capsule Take 1 capsule by mouth in the morning and 1 capsule in the evening. 04/01/23 Cheikh Boyle MDtopiramate 50 mg tablet Take 1 tablet by mouth in the morning and 1 tablet in the evening. 04/01/23 Cheikh Boyle MDtriamcinolone acetonide 0.1 % cream Apply to area(s) 2 (two) times daily. 08/17/20 Cheikh Boyle MDThe patient was reminded to speak with their health care provider before starting any new drug, including prescription or over the counter, natural / herbal products, or vitamins. The patient was educated not to start any antacids while on hepatitis C treatment including omeprazole, famotidine, magnesium, and calcium containing agents before consulting with the logistics team leader or hepatology clinical pharmacist.Drug Interactions:There are no significant drug-drug interactionsDrug-Food InteractionsThere are no significant drug-food interactions. This medication should be taken with food.Adverse effects:Virgie Frausto reports having the following drug reactions: headache, right sided crampsAdherence:Refill history was reviewed with the patient. Virgie Frausto states they are adherent with regimen. The patient was reminded about the refill process and re-educated on the importance of adherence.Overall medication adherence status will be discussed with the care team as deemed appropriate.Patient receives their medication from [facility].Safety Precautions: status: female - of childbearing potential (not currently )Risk Evaluation and Mitigation Strategy (REMS) Assessment: No REMS is required for this medication.Contraindications: Virgie Frausto has no contraindications to this medication.Follow up Plan:Virgie Frausto denies having any questions at this time The patient was reminded of the refill process as discussed during the medication education. Virgie Frausto was encouraged to call the hepatology pharmacist at [phone] with questions. The patient will be contacted to complete another reassessment in 1 month.Promise Cabezas, PharmDClinical Pharmacist - GI/[phone] madelyn signed by Promise Cabezas [facility] at 08/12/2023 1:16 PM SBU60331-9Fmfiuiizi encounter JtsjEE9811-69-93F66:16:45Telephone encounter NoteTXT1.2.840.292268.1.13.104.2.7 .2.456523|[id number] for patient qfod39232-7OnotDMNZVMEVRCIAtxydihn d C-CDA narrative [id number] Rice [address] Mh[id number] 86LQYCEJMWGIHQWTZMJLYEFG9031-66-39 T13:16:451.2.840.472260.1.72.3.15| 1.2.840.602416.1.13.104.2.7.2.7278 [id number] Promise Cabezas [facility] 2023-08-12 10:42:47 iPafqPlOgGbSjTQYH1Ro PhbF+svzvIxjxn tTHnqzgtVytSkH39FGPRFfHBhp62Bu2060 -01-03T10:42:47 First attempt to contact Virgie Frausto to verify compliance and assess tolerance of her specialty medication, Mavyret. No answer. Left voicemail asking patient to return call to clinical pharmacist at [phone]. If no return call from patient, will attempt again at a later date.Promise Cabezas, PharmDClinical Pharmacist - GI/[phone] madelyn signed by [facility] at 08/12/2023 10:44 AM MCY86683-4Wrvtkiqwq encounter ZznbKC6171-53-54H61:44:45Telephone encounter NoteTXT1.2.840.704634.1.13.104.2.7 .2.127076|[id number] for patient vqxw92220-2VhmyFDHNFJQKNBMRoechytn d C-CDA narrative [id number] Rice [address] Oz[id number] 64LNWFQCSNOXETTOYGADNITR1901-20-90 T10:44:451.2.840.255855.1.72.3.15| 1.2.840.574255.1.13.104.2.7.2.7278 [id number] Promise Raulito [facility] 2023-07-24 13:49:19 hjidSIOf2RI60h0uqcN1 duAxJwnVZqF98P XKteCAiMrCSWr6FSpd4AVPxWJD3lmm2521 -12-15T13:49:19 Initial Assessment: Hepatitis C Virus TreatmentDATE: 07/24/23Virgie Frausto is a 38 year old y/o Black or female referred to PharmD by Taiwo Wharton NP for medication management.Summary of VisitMsCasper Frausto is doing well today. Counseled on Mavyret. She confirms understanding and denies any questions.Patient is HCV positive, treatment naive, genotype 1A, and non-cirrhotic. HBV/HIV negative. Fibrosure score F1. Viral load 1,248,796 on 05/13/23.No clinically significant drug-drug interaction identified.Patient will receive treatment from [facility].Start date: 08/03/23Anticipated end date: 09/27/23Indication / RegimenThe regimen of Mavyret 3 tablet(s) by mouth once daily for 8 weeks is appropriate for Virgie Frausto who has hepatitis C, genotype 1a, is treatment naive and non-cirrhotic.No renal or hepatic adjustments are required for this hepatitis C regimen. At this time there is no planned dose titration. The patient has the ability to self-administer medicationTherapeutic Goal:Achieve sustained virologic response (SVR) following completion of HCV therapy. The HCV PCR lab should be drawn 12 weeks after completion of HCV therapy.Baseline characteristics:Liver Staging: The patient's hepatic fibrosis staging was assessed. The most recent assessment was F1 which showed mild scarring.Past Medical History:Past Medical History:Diagnosis DateAcute URI 08/31/2019Anxiety 07/25/2019Bipolar 1 disorderBronchitis 08/31/2019Congenital heart disease with intracardiac shuntingConstipation, unspecified constipation type 08/17/2019Current moderate episode of major depressive disorder, unspecified whether recurrent 07/25/2019Cutaneous abscess of groin 07/25/2019Cysts of both ovaries 08/17/2019DepressionDisequilibrium Dizziness 05/26/2019Hep C w/o coma, chronic age 20-203 Liver bx - Angelica fibrosis score 1/6Hidradenitis 07/25/2019IVDU (intravenous drug user) 07/25/2019Lower abdominal pain 08/31/2019Morbid obesity with body mass index of 40.0-49.9 05/26/2019Non-intractable vomiting with nausea, unspecified vomiting type 07/25/2019Peripheral vertigo involving left earPrimary insomnia 08/12/2019Pulmonary hypertensionRight ventricular dilationSchizophrenia with prominent negative symptoms 07/25/2019Substernal chest pain 08/31/2019Tobacco dependence 07/25/2019Yeast infection 07/25/2019Labs and Diagnostic tests:WBC x10^3 (/CMM)Date Value08/25/2007 7.1WBC (10*3/?L)Date Value07/01/2023 5.41RBC x10^6 (/CMM)Date Value08/25/2007 3.92RBC (10*6/?L)Date Value07/01/2023 4.45HGBDate Value07/01/2023 13.3 g/dL08/25/2007 11.7 G/DLHCT (%)Date Value07/01/2023 39. 33.6 (L)INR (no units)Date Value07/01/2023 1.2APTT Patient (Seconds)Date Value10/17/2019 30NA (mmol/L)Date Value07/01/2023 135K (mmol/L)Date Value07/01/2023 4.4CL (mmol/L)Date Value07/01/2023 107BUN (mg/dL)Date Value07/01/2023 7CREATININE (mg/dL)Date Value07/01/2023 0.69TOTAL BILI (mg/dL)Date Value07/01/2023 0.7BILI CONJ (mg/dL)Date Value07/01/2023 0.0BILI UNCON (mg/dL)Date Value07/01/2023 0.5T PROTEIN (g/dL)Date Value07/01/2023 8.0ALBUMIN (g/dL)Date Value07/01/2023 4.2ALK PHOS (U/L)Date Value07/01/2023 86ALT(SGPT) (U/L)Date Value11/06/2018 31ALTv (U/L)Date Value07/01/2023 25AST(SGOT) (U/L)Date Value07/01/2023 26Hepatitis C:Genotype: 1ATreatment status: naiveFibrosis score: F1Hep C VL: 1,248,796 (05/13/23)Hepatitis B screening:HBsAg (no units)Date Value07/01/2023 NegativeHBsAg Semi-Quantitative (no units)Date Value07/01/2023 0.06HBsAB (no units)Date Value07/01/2023 NegativeHIV ScreeningHIV 1/2 Ag-Ab with Reflex (no units)Date Value02/02/2023 NegativeWeight:Wt Readings from Last 1 Encounters:07/23/23 120.1 kg (264 lb 12.8 oz)Allergies:No Known AllergiesImmunizations:Immunizatio n HistoryAdministered Date(s) UlygjlutjujyHLAH-FTC-9 COVID-19 MODERNA 0.25ML BOOSTER VACCINE 01/23/20221203GJPJ-UJY-0 COVID-19 MODERNA 12+ YRS VACCINE 10/17/2020, 11/14/2020Vaccination history was reviewed. The patient will be reminded about the importance of completing hepatitis B vaccination if not immune and receiving an annual influenza vaccine as indicated.Medication Reconciliation:Medication reconciliation is based on the patient's most recent med list in the electronic medical record (EMR) including herbal products and OTC medications. The patients' medication list will be updated during patient education, after speaking with the patient and prior to dispensing the medication.Prior to Admission medicationsMedication Sig Start Date End Date Taking? Authorizing Providerglecaprevir-pibrentasvir 100-40 mg Take 3 tablets by mouth in the morning. 07/24/23 Prem, Taiwo, FNPmiSOPROStoL 200 mcg tablet Take 1 tablet by mouth SEE-INSTRUCTIONS. Take one tab the night before and one tab the morning of procedure 07/23/23 MercadoJarrod, MDdicyclomine 20 mg tablet Take 1 tablet by mouth every 6 (six) hours as needed for Abdominal pain. 06/29/23 Arianna Whitmore MDlactulose 10 gram/15 mL oral solution Take 30 mL by mouth 3 (three) times daily as needed for Constipation or For bowel movement. 06/29/23 Arianna Whitmore MDondansetron (ZOFRAN) 4 mg tablet Take 1 tablet by mouth every 8 (eight) hours as needed for Nausea and Vomiting (N/V). 06/29/23 Arianna Whitmore MDipratropium 0.02 % nebulizer solution Inhale 2.5 mL every 8 (eight) hours as needed for Wheezing or Shortness of Breath. 06/10/23 Cheikh Boyle MDARIPiprazole (ABILIFY) 5 mg tablet Take 1 tablet by mouth in the morning. 05/15/23 Cheikh Boyle MDdoxepin 100 mg capsule Take 1 capsule by mouth at bedtime. 05/15/23 Cheikh Boyle MDtretinoin 0.075 % Crea Apply 1 g to area(s) at bedtime. 04/28/23 Cheikh Boyle MDvalACYclovir 1 gram tablet Take 1 tablet by mouth in the morning. 04/28/23 Frannie Smith PA-Calbuterol 2.5 mg /3 mL (0.083 %) nebulizer solution Inhale 3 mL every 4 (four) hours as needed for Wheezing or Shortness of Breath. 04/01/23 Cheikh Boyle MDalbuterol 90 mcg/actuation inhaler Inhale 2 Puffs every 4 (four) hours as needed for Wheezing or Shortness of Breath. 04/01/23 Cheikh Boyle MDbuPROPion SR (WELLBUTRIN SR) 150 mg SR tablet Take 1 tablet by mouth in the morning and 1 tablet in the evening. 04/01/23 Cheikh Boyle MDDULoxetine 20 mg capsule Take 1 capsule by mouth in the morning and 1 capsule in the evening. 04/01/23 Cheikh Boyle MDtopiramate 50 mg tablet Take 1 tablet by mouth in the morning and 1 tablet in the evening. 04/01/23 Cheikh Boyle MDtriamcinolone acetonide 0.1 % cream Apply to area(s) 2 (two) times daily. 08/17/20 Cheikh Boyle MDDrug Interactions:There are no significant drug-drug interactionsDrug-Food InteractionsThere are no significant drug-food interactions. This medication should be taken with food.Safety Precautions:Hepatitis B reactivation risk: lowPregnancy status: female - of childbearing potential (not currently )Risk Evaluation and Mitigation Strategy (REMS) Assessment: No REMS is required for this medication.Contraindications: Virgie Frausto has no contraindications to this medication.Follow up Plan:Initial therapy assessment has been completed and the patient will be contacted and educated on their regimen. Following education the patient will be reassessed 1 month after starting therapy.Promise Cabezas PharmDClinical Pharmacist - GI/[phone] madelyn signed by [facility]as[facility] at 08/12/2023 1:13 PM CMA16982-0Xtkuwqiac encounter NshgYN7856-90-99L92:13:10Telephone encounter NoteTXT1.2.840.399986.1.13.104.2.7 .2.759554|[id number] for patient sfcy09778-0CsrsMFYTLUKQYXDZclfzkvm d C-CDA narrative [id number] Rice [address] Ib[id number] 66LKVUTPVJODPGPVZGORWQCO0688-57-53 T13:13:101.2.840.317049.1.72.3.15| 1.2.840.316696.1.13.104.2.7.2.7278 [id number] Promise Cabezas [facility] 2023-07-24 13:45:19 2kGf0PY1P0pOtKY8ln5a CTcnD56CPkDMBQ QpwRNdSafMu3HzPexcuEc+ePR2BHer7962 -12-15T13:45:19 Patient Education: Hepatitis C TherapyDATE: 07/24/23Virgie Frausto is a 38 year old y/o Black or female referred to PharmD by Taiwo Wharton NP for medication counseling.Regimen:I spoke with Virgie Frausto today to notify them that Mavyret for 8 weeks has been approved via insurance, and they are ready to begin therapy for hepatitis C.Medication Administration:Virgie Frausto was educated to take Mavyret. The patient was counseled on the medication name (brand and generic), dose, route, frequency, duration, medication class, and indication. The patient was educated on common side effects including fatigue and headache. The patient was instructed that they can take acetaminophen for a headache, no more than 2,000 mg per 24 hours. The patient was instructed to take the medication at the same time every day. The patient was educated not to miss any doses, interrupt therapy and/or stop taking the medication without talking to the hepatology team. The importance of adherence was discussed. The patient's ability to be adherent with the treatment plan was discussed and the patient was provided with tools and resources to promote adherence to therapy. The patient's ability to self-administer medication was assessed. Appropriate safe handling, storage and disposal directions were reviewed with the patient.Safety Precautions:Contraindications: Virgie Frausto has no contraindications to this medication. The patient was instructed to seek medical attention immediately if they experience signs of an allergic reaction, including but not limited to: a rash; hives; itching; red, swollen, blistered, or peeling skin with or without fever. status was assessed and determined to be: female - of childbearing potential (not currently ).Medication Reconciliation:A medication history and reconciliation were performed (including prescription medications, supplements, over the counter, and herbal products). The medication list was updated and the patients' current medication list is included below.Prior to Admission medicationsMedication Sig Start Date End Date Taking? Authorizing Providerglecaprevir-pibrentasvir 100-40 mg Take 3 tablets by mouth in the morning. 07/24/23 Prem, Taiwo, FNPmiSOPROStoL 200 mcg tablet Take 1 tablet by mouth SEE-INSTRUCTIONS. Take one tab the night before and one tab the morning of procedure 07/23/23 Mercado, Jarrod Cam, MDdicyclomine 20 mg tablet Take 1 tablet by mouth every 6 (six) hours as needed for Abdominal pain. 06/29/23 Arianna Whitmore MDlactulose 10 gram/15 mL oral solution Take 30 mL by mouth 3 (three) times daily as needed for Constipation or For bowel movement. 06/29/23 Arianna Whitmore MDondansetron (ZOFRAN) 4 mg tablet Take 1 tablet by mouth every 8 (eight) hours as needed for Nausea and Vomiting (N/V). 06/29/23 Arianna Whitmore MDipratropium 0.02 % nebulizer solution Inhale 2.5 mL every 8 (eight) hours as needed for Wheezing or Shortness of Breath. 06/10/23 Cheikh Boyle MDARIPiprazole (ABILIFY) 5 mg tablet Take 1 tablet by mouth in the morning. 05/15/23 Cheikh Boyle MDdoxepin 100 mg capsule Take 1 capsule by mouth at bedtime. 05/15/23 Cheikh Boyle MDtretinoin 0.075 % Crea Apply 1 g to area(s) at bedtime. 04/28/23 Cheikh Boyle MDvalACYclovir 1 gram tablet Take 1 tablet by mouth in the morning. 04/28/23 Frannie Smith PA-Calbuterol 2.5 mg /3 mL (0.083 %) nebulizer solution Inhale 3 mL every 4 (four) hours as needed for Wheezing or Shortness of Breath. 04/01/23 Cheikh Boyle MDalbuterol 90 mcg/actuation inhaler Inhale 2 Puffs every 4 (four) hours as needed for Wheezing or Shortness of Breath. 04/01/23 Cheikh Boyle MDbuPROPion SR (WELLBUTRIN SR) 150 mg SR tablet Take 1 tablet by mouth in the morning and 1 tablet in the evening. 04/01/23 Cheikh Boyle MDDULoxetine 20 mg capsule Take 1 capsule by mouth in the morning and 1 capsule in the evening. 04/01/23 Cheikh Boyle MDtopiramate 50 mg tablet Take 1 tablet by mouth in the morning and 1 tablet in the evening. 04/01/23 Cheikh Boyle MDtriamcinolone acetonide 0.1 % cream Apply to area(s) 2 (two) times daily. 08/17/20 Cheikh Boyle MDThe patient was instructed to speak with their health care provider before starting any new drug, including prescription or over the counter, natural / herbal products, or vitamins. The patient was educated not to start any antacids while on hepatitis C treatment including omeprazole, famotidine, magnesium, and calcium containing agents before consulting with logistics team leader or hepatology clinical pharmacist. Drug-drug and drug-food interactions with the new therapy were assessed and reviewed with the patient.Appropriate recommended vaccinations were reviewed and discussed with the patient.Pharmacy Information:The patient was notified that their medication will be filled at [facility]. The patient was instructed to notify their clinic nurse coordinator by phone at [phone] when they receive their medication to coordinate a start date. The patient was educated on the refill process.Follow Up:The monitoring and follow-up plan was discussed with the patient. The patient was instructed to contact their health care provider if their symptoms or health problems do not get better or if they become worse. Virgie Torres Lisbet denies having any questions at this time. The patient was encouraged to call the hepatology pharmacist at [phone] with any questions. The patient will be contacted within 21 days after initiation of therapy for a complete medication assessment.Promise Cabezas, PharmDClinical Pharmacist - GI/[phone] madelyn signed by Promise Cabezas [facility] at 07/24/2023 1:55 PM PSY53839-5Gwieebvly encounter OzzhMU7767-34-92F14:55:31Telephone encounter NoteTXT1.2.840.652340.1.13.104.2.7 .2.933576|[id number] for patient blkf51778-9CvybFOYCRCMYIIDEnbomfie d C-CDA narrative textUT[address] Gq[id number] 58VMOKYBPHFNECPKCUUTHCTK3706-27-82 T13:55:311.2.840.263850.1.72.3.15| 1.2.840.545649.1.13.104.2.7.2.7278 [id number] [facility] 2023-04-28 15:51:58 KKwrm6D43gvibl7tUsv5 i0E/f6Ye0oHOjK QPqbWJGpNdlq3Nwke2LeOPrGiwDSdi1512 -09-19T15:51:58 Pt requesting refill. 24268-1Mnnqznoci encounter FfmwTH6852-08-79O92:52:33Telephone encounter NoteTXT1.2.840.314738.1.13.104.2.7 .2.115452|[id number] for patient xemc55147-3LisgVT523536473Bsukwob Salazar RN[id number] 10WXCUEMEFVCUNBFEYZBPGUS1980-67-88 T15:52:331.2.840.187810.1.72.3.15| 1.2.840.878227.1.13.104.2.7.2.7278 [id number] Varsha Garcia RN [facility] 2023-04-22 08:25:36 EGEuVCfz/i/rb+cNE9Bq 7gRuPZOTn5jlao grcBNQSzR5scqkGN12LTNGwvHxEh4A2060 -09-13T08:25:36 No further action needed. 90279-4Jigfixzxh encounter BdkzCH8470-61-84D88:26:06Telephone encounter NoteTXT1.2.840.344703.1.13.104.2.7 .2.618750|[id number] for patient bopn83603-6EkdePX439645843Vevjel M Serrano MA[id number] 15DSRBQXDIFWAYHOJZVJAOHL8259-04-53 T08:26:061.2.840.744203.1.72.3.15| 1.2.840.819833.1.13.104.2.7.2.7278 [id number] Malena Rey MA [facility] 2023-04-22 08:24:57 FrQm/IPI3mIFiXmIKv1J 4I5bRLqMK/Wv9Y /6UGeFfoBXbYe7OrSLqreSUemxfkCU6265 -09-13T08:24:57 No further action needed. 06254-8Auvwtjfcu encounter ZhtyNQ8635-56-03G95:25:23Telephone encounter NoteTXT1.2.840.808753.1.13.104.2.7 .2.114161|[id number] for patient gvqc29885-4RhgpTR490987297Ftptgw M Serrano MA[id number] 24NIZLJQYXGUSXLYCUSEGVGE2446-89-02 T08:25:231.2.840.385617.1.72.3.15| 1.2.840.163055.1.13.104.2.7.2.7278 [id number] Malena Rey MA [facility] 2023-04-21 17:57:48 2bDaWSNADi3mGAYS1lhB 6G4MV3lT3JSnEb BRG4XUMzvFILA9LcwDCpkihSejtAis8342 -09-12T17:57:48 Referral/ConsultHep C w/o coma, chronic- Alternative therapy sent to [facility] pharmacy- Consult/Referral Clinical Answerer 95303-5Zktmzawka encounter FrxgAG6055-30-14E43:58:50Telephone encounter NoteTXT1.2.840.774014.1.13.104.2.7 .2.249627|[id number] for patient nplc87403-5QgiiAAGWSSEDAV[id number] 22DBYYOKXOZSQCMFSKQLJUPZ3426-35-22 T17:58:501.2.840.143472.1.72.3.15| 1.2.840.377128.1.13.104.2.7.2.7278 [id number] [facility] 2023-04-21 17:15:42 4LRFmWJVrY5m6QfI7Aa8 x4YqO8ivWgjyez 9/xA9dNLjKPTzPA3qEozMgtd2BAzXj0226 -09-12T17:15:42 Alternative Medication Hep C w/o coma, chronic- Alternative Rx sent, let patient know, and to follow-up as scheduled.- sofosbuvir-velpatasvir (EPCLUSA) 400-100 mg; Take 1 tablet by mouth in the morning. Dispense: 84 tablet; Refill: 0 Cheikh Boyle MD, MPHAssistant Professor, Department of [facility]Park[facility] [place]04/21/2023 5:16 PMFuture Appointments In 1 week Nurse, [facility] In 2 weeks Cheikh Boyle MD [facility], [facility] 49550-3Zulpvahzk encounter HknpBZ1420-84-26H42:16:49Telephone encounter NoteTXT1.2.840.987076.1.13.104.2.7 .2.760192|[id number] for patient mulx94184-7RycbYKSRYGOBJL[id number] 31ADSUFXYQLNKUAHJPJPHOSR2180-30-39 T17:16:491.2.840.366536.1.72.3.15| 1.2.840.420978.1.13.104.2.7.2.7278 [id number] [facility] 2023-04-21 16:06:22 PW09L1Mj01DEPyOJ6j04 pe6YZIMpODinAt ub1MB4sKWfJYsRr9kDJzlcsH1F5Ajd5085 -09-12T16:06:22Summary: PA denial Images from the original note were not included.Hello, the prior authoirzation has been denied for the following medication:Drug: EpclusaDenial Reason:Since Epclusa is the preferred alternative for the patient's diagnosis, we attempted a PA but received a denial due to more information needed. For criteria #7, is there any documents or information we can provide to the insurance showing that the provider has "expertise in treating HCV based on a certified training program"? This will help in getting the medication approved for the patient.If there are any further questions, please reach out to me.Thank you. 02716-7Wlyamoizl encounter IzskVT4142-33-16Y83:12:17Telephone encounter NoteTXT1.2.840.033482.1.13.104.2.7 .2.711884|[id number] for patient gxgq54166-1VmqnKH888419843Buesi [address] YpkkI[id number] 60QBQVIHBNQCIMSLYPUZXEQZ9802-07-67 T16:12:171.2.840.001923.1.72.3.15| 1.2.840.244577.1.13.104.2.7.2.7278 [id number] Juan M Faria [facility] 2023-04-21 11:23:27 sdojH2h65OJFmfv56a97 0++JQGuBa8jI8x jfWtI5N+VVYcdjiVxJPaSELxvURtFB5372 -09-12T11:23:27 Pt is calling wanting update on med alternative. 97772-6Anfciwjua encounter DxpmOH3085-31-61R87:24:28Telephone encounter NoteTXT1.2.840.202236.1.13.104.2.7 .2.600518|[id number] for patient yaze67420-3KyigFF603326646Bzkrd Conor[id number] 29BAGZEVVIRZVPOHFFANGFIU6841-11-83 T11:24:281.2.840.947165.1.72.3.15| 1.2.840.296479.1.13.104.2.7.2.7278 [id number] Nata Perdomo [facility] 2023-04-20 15:26:40 qsfGxvrfKXbYNPbvMi97 nxdsWCyD3b6tzX qlWsmb55f/yULvNdDnaODZL1ytH+L33301T15:26:40 Spoke with [facility] pharmacy. PA denied for Mavyret, Epclusa is preferred alternative. Can you please change rx to Epclusa? Thank You! 31749-2Wrdbphzzt encounter RwfgJH7715-31-92V77:28:11Telephone encounter NoteTXT1.2.840.035986.1.13.104.2.7 .2.860914|[id number] for patient hcyp08526-9TlrrJR217938952Jyudm A Case RN[id number] 93LVKUJOLATWGSMTONDTHDFN8038-16-97 T15:28:111.2.840.999076.1.72.3.15| 1.2.840.468612.1.13.104.2.7.2.7278 [id number] Sonal Pelayo Case RN [facility] 2023-04-14 11:17:57 38YMguUKAmlj5re84QNY b18JW70UHVDiFF 8ym+dDeKHklSiFst2AW66C/zp5v1+C20T11:17:57 Pt called and states that medication is needing a prior authorization. Please advise.glecaprevir-pibrentasvir (MAVYRET) 100-40 mg 69443-8Pzzqrpqqs encounter JsieGS8158-23-19X06:19:31Telephone encounter NoteTXT1.2.840.389454.1.13.104.2.7 .2.678999|[id number] for patient [id number] R [address] Bx[id number] 82YUHIRTHGSOCJWOWGSLNIGY4621-99-94 T11:19:311.2.840.765038.1.72.3.15| 1.2.840.162739.1.13.104.2.7.2.7278 [id number] Steph Pollard [facility] 2023-03-30 17:06:36 1GpD5IXfZ6V7hokPh6ps nhs2ypQPMxqxZi frNUhTIdok6FqVraMNsp67AJSg49OH9199 -08-21T17:06:36 Refill denied. Pt needs office visit. [facility] 10/25/19. Pt notified in encounter on 12/10/20 that pt needed appt for refills. Pt ended up cancelling that visit.Requested Prescriptions Refused Prescriptions Disp Refills topiramate 50 mg tablet 60 tablet 0 Sig: Take 1 tablet by mouth in the morning and 1 tablet in the evening. Refused By: BLANKA MOSS Reason for Refusal: Patient needs appointment 38974-7Jfbjporuw encounter XknhFJ3746-65-54B41:11:31Telephone encounter NoteTXT1.2.840.125021.1.13.104.2.7 .2.828158|[id number] for patient mdzj72205-1XmnxJB413478787Hagsed Phillips [id number] 56BXGDRRPZMOIFKYQYXACTFI1332-14-51 T17:11:311.2.840.615250.1.72.3.15| 1.2.840.370370.1.13.104.2.7.2.7278 [id number] [facility] 16:59:54 a8P/pxRG8lgZPOyxtTmK jM1kenRHaUfGgY oMeP07HHbpozGaFxbimMdyK8FUIdI20197 -08-21T16:59:54 Message from Ziipa:Refills have been requested for the following medications: topiramate 50 mg tablet [Thierno Bueno]Preferred pharmacy: [id number] method: PickupMedication renewals requested in this message routed separately: carBAMazepine 400 mg 12 hr tablet [Cheikh Boyle] doxepin 50 m g capsule [Cheikh Boyle] buPROPion SR (WELLBUTRIN SR) 150 mg SR tablet [Cheikh Boyle] 84071-4Rpwcosvuq encounter GcrgQP6445-00-84D02:59:54Telephone encounter NoteTXT1.2.840.605870.1.13.104.2.7 .2.702866|[id number] for patient nnmf71623-5QgaiJFDFKTFFVB[id number] 31PVRMATDOXTOLYVVHMFZNFY6924-35-19 T16:59:541.2.840.100938.1.72.3.15| 1.2.840.695155.1.13.104.2.7.2.7278 [id number] [facility] 2023-03-27 14:08:05 mhahzPjmjnLluS79LAC0 6iS/vqr68uEjv2 VtMgc0AB9wQkngyK6IolMu65Z/SM1H1887 -08-18T14:08:05 Spoke with pt to follow up. She states that she did not go back to the er for pain. She states that she is alternating naproxen and tylenol and the pain is slightly improving. Pain scale-6. Bleeding is light spotting.Pt given an appt for Thursday with Dr Mercado, strong er warnings given.ER visit at [facility] on 03/25- pt reports that what she passed in attached picture was sent for pathology and they did a vaginal ultrasound which she does not know the results of. UPT was negative. Pt advised to bring records to visit with her, or she can sign KULDIP to obtain records. It is preferable that records be available for visit on Thursday. Pt verbalizes understanding. 52438-0Gdiylifok encounter NmteED8232-84-02Y81:12:35Telephone encounter NoteTXT1.2.840.449968.1.13.104.2.7 .2.433791|[id number] for patient ivdx68078-1IuxnIU915068654Oyywx A Case RNUT[id number] 97XLWUHGXZVIIQINDJESEBTK6002-68-00 T14:12:351.2.840.873985.1.72.3.15| 1.2.840.406215.1.13.104.2.7.2.7278 [id number] Sonal Pelayo Case RN [facility] 2023-03-26 20:13:24 7rTEZyOv6tmYn/xBjI+H 3WpMqge+S29acA cDDWCd6y9ZEi/H6ltjd5YKtAO/zjVt5766 -08-17T20:13:24 Informed pt per provider she needs to go to the er. 06858-3Oybxdecrn encounter QisoUG7976-76-60P84:14:37Telephone encounter NoteTXT1.2.840.857642.1.13.104.2.7 .2.466080|[id number] for patient [id number] L Minter MA[address] Rm[id number] 26GVDZJRUPSFBQIKYPPNBZJC2629-43-19 T20:14:371.2.840.311001.1.72.3.15| 1.2.840.343036.1.13.104.2.7.2.7278 [id number] Mary Ellen Molina MA [facility] 2023-03-26 19:54:03 sslQhy08MJ4Q22rRc9JN gOcVSXSiGyW7lm PlBuBteRQeO6LfWdgj4mPJhBlpR9cH5830 -08-17T19:54:03 Please advise 92408-0Wkacordsi encounter XedoCT6319-62-48D15:54:13Telephone encounter NoteTXT1.2.840.739209.1.13.104.2.7 .2.881826|[id number] for patient jbkr80049-1DqrwXQFQNUAUCY[id number] 59YLLNRCBDTNLMVOHWSTFGKN1938-44-34 T19:54:131.2.840.257001.1.72.3.15| 1.2.840.144098.1.13.104.2.7.2.7278 [id number] [facility] 2023-03-26 16:52:04 HLtm3KF3DEWyZng15qFS dEx47xG323TdOv hpgyHsvfzHtWRdogZsiGoWiBmaHDEO6704 -08-17T16:52:04 Patient would like a nurse to call her. She is in a lot of pain. 08462-7Muypvnoan encounter EomrWJ7538-42-51E02:53:17Telephone encounter NoteTXT1.2.840.611279.1.13.104.2.7 .2.431649|[id number] for patient bsag74746-2TlqyAU525508380Reaxz K [id number] 00CSPRMWYYHMFUOQIFIAGBXO0324-00-35 T16:53:171.2.840.172061.1.72.3.15| 1.2.840.201734.1.13.104.2.7.2.7278 [id number] Candace Last [facility] 2023-03-26 12:14:32 pa4vxWKskDv+ZTc7Ckb0 8BvQa8Td+KFXYY 0ONG8EFgdioFDik+QIyBYgS0AUb1FW7147 -08-17T12:14:32 Mchart message sent.CARLOTTA ROSADO RN 03/26/2023 12:14 PM 95051-5Xqxfurczy encounter BbhpAQ6690-57-20T04:14:46Telephone encounter NoteTXT1.2.840.691311.1.13.104.2.7 .2.509156|[id number] for patient vwka80211-7FyooQT318405228Twkgnkvd h G Cervantes RN[address] IfvkPhmvdxccrHdlspfvgkNPMA27898833 46VKPKXQCTJGAZVXIHTAYHOC4958-90-14 T12:14:461.2.840.007695.1.72.3.15| 1.2.840.110168.1.13.104.2.7.2.7278 [id number] Carlotta Rosado [facility] 2023-03-26 11:05:17 7IRt77k0vUBmJqJQIQnA r5mArudl9xb5Xd f/Gao0KzdLrIH64qKamTiW1ENvic+e2T11:05:17 Pt called and states that she is taking Naproxen and Tylenol. She states that medication isn't working and is requesting to speak with a nurse to possibly get something called in. She tried getting sooner appointment, but there were no sooner available times. Please advise. Call back number: [phone] signed by Steph Pollard at 03/26/2023 11:06 AM ZLU49190-0Myzdhzdfl encounter ZradFQ7693-95-99W11:06:53Telephone encounter NoteTXT1.2.840.821650.1.13.104.2.7 .2.724761|[id number] for patient oclm24658-8YyovAU87864747Ydgobif R [id number] 07GNLJIPWWSHFXUVTJZXKKAR8769-39-92 T11:06:531.2.840.671273.1.72.3.15| 1.2.840.645813.1.13.104.2.7.2.7278 [id number] Steph Brandtroquin [facility] 2023-03-25 16:09:03 vBW8YLeCdriJpVbYyLiv BieptBtm7q1yGd N0/T1iW5kv+cBBWcWvxBq3RHZZs1fc5989 -08-16T16:09:03 Contacted patient. Patient states she is currently at ER. Patient advised to contact us for any f/u needed after visit. Ulices Adler RN 03/25/2023 4:09 PM 17901-4Auvfzshmr encounter OehcGM6282-18-90J11:10:21Telephone encounter NoteTXT1.2.840.848305.1.13.104.2.7 .2.984595|[id number] for patient bxry23255-4DhukGO327739636Ijfohlv [id number] 18BRMFBZQMEFNXBLOKDJTJCY0923-28-22 T16:10:211.2.840.101279.1.72.3.15| 1.2.840.807413.1.13.104.2.7.2.7278 [id number] Ulices Adler RN [facility] 2023-03-25 09:58:02 dqMWDJyJvB03uWMYxoIT jE56slJh7ooVrg /m7x3R6oPhZOt2AHDvF7YhtW1rqETM1815 -08-16T09:58:02 Attempted to contact patient. No answer, unable to leave VM. VM is full. Ulices Adler RN 03/25/2023 9:58 AM 02688-5Nbhynjivq encounter TuroRV7447-57-41G88:58:39Telephone encounter NoteTXT1.2.840.337192.1.13.104.2.7 .2.233793|[id number] for patient awtu41820-2CeyjQNQDIHWQAG[address] [place], [place] [id number] 18AEWSWPQTHBRLGRKZCVXWPM7112-79-27 T09:58:391.2.840.630866.1.72.3.15| 1.2.840.353199.1.13.104.2.7.2.7278 [id number] [facility] 2023-03-24 16:34:23 xH6EVJF9SWGTrvr6u9Xe ahFCzEZ8Jj2gb6 w1JhQwhuES2fRcn5TWDMxm8u8AZEnR5272 -08-15T16:34:23 Attempted to contact patient. No answer, VM left. Ulices Adler RN 03/24/2023 4:34 PM 42592-0Jbexkramu encounter KnioYI5881-36-06L62:34:49Telephone encounter NoteTXT1.2.840.314265.1.13.104.2.7 .2.262881|[id number] for patient dsvu07604-4XohgFZQPZAPBZV[id number] 34ADGFKUFLLQAKQXPCUVJEKO6503-31-16 T16:34:491.2.840.147938.1.72.3.15| 1.2.840.260003.1.13.104.2.7.2.7278 [id number] [facility] 2023-03-24 16:16:03 cXUDfXMfDFvB235OJslx 8wEdIu2iWRnQCN xuBIO2+SYyyH3+aMCalZMaQjY1Afka6454 -08-15T16:16:03 Per pt she received her depo last month. Pt thinks that she may be having effects from depo. Pt states that she has been bleeding heavily, and is having severe abdominal pain. She rates her pain a 9/10. She is concerned that a cyst has popped and is requesting to speak with a nurse. Please advise. Call back number: [phone] signed by Steph Pollard at 03/24/2023 4:24 PM RJR78612-5Jnytmzcli encounter NozfBF9279-52-50I90:24:54Telephone encounter NoteTXT1.2.840.782281.1.13.104.2.7 .2.948757|[id number] for patient oily70923-8WuarWP63234485Djiuvom R [address] KekpLtruonfqrJonsosnfdKIFW12147934 06TRLONEKUQOTMVVHOFSADSH4066-26-69 T16:24:541.2.840.307366.1.72.3.15| 1.2.840.530270.1.13.104.2.7.2.7278 [id number] Steph Pollard [facility]
--- NOTE | 2023-11-09 22:33 | RAD REPORT ---
EXAM DESCRIPTION: US - Abdomen Exam Limited - 11/09/2023 9:58 pm CLINICAL HISTORY: Abdominal pain. COMPARISON: None. FINDINGS: Gallbladder is contracted. This results in suboptimal evaluation. The gallbladder wall is not thickened. A gallstone is not seen. The biliary tree is normal caliber. IMPRESSION: Contracted gallbladder. Otherwise grossly normal ultrasound
[2023-11-09] MEDS ORDERED: KETOROLAC 30 MG/ML INJ ONE (22:42)
[2023-11-09] MEDS ORDERED: ONDANSETRON 4 MG/2 ML VIAL ONE (22:42)
[2023-11-09] MEDS ORDERED: FAMOTIDINE 20 MG/2 ML VIAL IV ONE (22:42)
[2023-11-09] MEDS ORDERED: NA CHLORIDE 0.9% 1,000 ML ONE (22:43)
[2023-11-09 23:05] LABS: Absolute Basophils 0.1 K/uL (0-0.5); Absolute Eosinophils 0.2 K/uL (0-0.5); Absolute Lymphocytes (CBC) 3.9 K/uL (0.7-4.9); Absolute Monocytes 0.5 K/uL (0.1-1.3); Absolute Neutrophil 3.4 K/uL (1.8-8.0); Basophils % 0.9 % (0-1.3); Eosinophils % 2.1 % (0-4.4); Hematocrit 38.7 % (36.0-45.0); Lymphocytes % 48.3 % (15.3-44.8); MCH 29.7 pg (27.0-35.0); MCHC 33.7 g/dL (32.0-36.0); MCV 88.3 fL (80-100); MPV 7.3 fL (7.6-11.3); Monocytes % 6.3 % (3.3-12.3); Neutrophils % 42.4 % (41.7-73.7); Nucleated Red Blood Cells % 0.1 % (0-0); Platelets 344 thou/uL (152-406); RBC Red Blood Cell Count 4.38 M/uL (3.86-4.86); Red Cell Distribution Width 12.8 % (12.1-15.2)
[2023-11-09 23:23] LABS: Albumin 3.5 g/dL (3.4-5.0); Albumin/Globulin Ratio 0.8 (1.1-1.8); Anion Gap 7.5 mEq/L (5.0-15.0); Bilirubin Total 0.3 mg/dL (0.2-1.0); Globulin 4.4 g/dL (2.3-3.5); Potassium 3.5 mEq/L (3.5-5.1); Protein, Total 7.9 g/dL (6.4-8.2)
--- NOTE | 2023-11-09 23:28 | ER ---
Nurse's Notes [facility] Name: Alie Gee Age: 38 yrs Sex: Female : 1985 Arrival Date: 11/09/2023 Time: 20:38 Bed 18 Private MD: Diagnosis: Upper abdominal pain, unspecified Presentation: 11/08 21:03 Chief complaint: Patient states: right upper abdominal pain. Coronavirus screen: At vc1 this time, the client does not indicate any symptoms associated with coronavirus-19. Ebola Screen: Patient negative for fever greater than or equal to 101.5 degrees Fahrenheit, and additional compatible Ebola Virus Disease symptoms Patient denies exposure to infectious person. Patient denies travel to an Ebola-affected area in the 21 days before illness onset. No symptoms or risks identified at this time. Risk Assessment: Do you want to hurt yourself or someone else? Patient reports no desire to harm self or others. Onset of symptoms was November 08, 2023. 21:03 Method Of Arrival: Ambulatory vc1 21:05 Initial Sepsis Screen: Does the patient meet any 2 criteria? No. Patient's initial vc1 sepsis screen is negative. Does the patient have a suspected source of infection? No. Patient's initial sepsis screen is negative. 21:05 Acuity: CAROLYN 3 vc1 Triage Assessment: 21:05 General: Appears in no apparent distress. uncomfortable, Behavior is calm, cooperative, vc1 appropriate for age. Pain: Complains of pain in right upper quadrant Pain does not radiate. Pain currently is 8 out of 10 on a pain scale. Quality of pain is described as sharp, Pain began 1 day ago. Is continuous, Aggravated by increased activity, breathing. Neuro: Mercer Agitation-Sedation Scale (RASS): 0 - Alert and Calm. Cardiovascular: No deficits noted. Respiratory: Airway is patent Respiratory effort is even, unlabored, Respiratory pattern is regular, symmetrical. GI: Abdomen is round non-distended, Abd is soft Abdomen is tender to palpation in right upper quadrant Reports upper abdominal pain, Patient currently denies diarrhea, nausea. 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 - Infectious Disease History:: Denies. - Social history:: Smoking status: Patient reports the use of cigarette tobacco products, 7 cigs, Reported history of juuling and/or vaping. Screenin:05 Abuse screen: Denies threats or abuse. Nutritional screening: No deficits noted. vc1 Tuberculosis screening: No symptoms or risk factors identified. 22:15 [facility] ED Fall Risk Assessment (Adult) History of falling in the last 3 months, vc1 including since admission No falls in past 3 months (0 pts) Confusion or Disorientation No (0 pts) Intoxicated or Sedated No (0 pts) Impaired Gait No (0 pts) Mobility Assist Device Used No (0 pt) Altered Elimination No (0 pt) Score/Fall Risk Level 0 - 2 = Low Risk Oriented to surroundings, Maintained a safe environment, Educated pt \T\ family on fall prevention, incl call for assistance when getting out of bed. Assessment: 22:15 Reassessment: See triage assessment. vc1 22:15 GI: Bowel sounds present X 4 quads. vc1 23:00 Reassessment: No changes from previously documented assessment. Patient and/or family vc1 updated on plan of care and expected duration. Pain level reassessed. Patient is alert, oriented x 3, equal unlabored respirations, skin warm/dry/pink. 11/09 00:00 Reassessment: Patient appears in no apparent distress at this time. No changes from vc1 previously documented assessment. Patient and/or family updated on plan of care and expected duration. Pain level reassessed. Patient is alert, oriented x 3, equal unlabored respirations, skin warm/dry/pink. Vital Signs: 11/08 21:03 Weight 104.33 kg; Height 5 ft. 5 in. ; Pain 7/10; vc1 21:05 Pain 8/10; vc1 21:06 BP 124 / 89; Pulse 97; Resp 15; Temp 98.3; Pulse Ox 100% ; vc1 22:00 BP 135 / 83; Pulse 80; Resp 14; Pulse Ox 100% ; vc1 23:00 BP 133 / 91; Pulse 78; Resp 14; Pulse Ox 100% ; vc1 0402 00:00 BP 131 / 89; Pulse 66; Resp 15; Pulse Ox 100% ; vc1 11/08 21:03 Body Mass Index 38.27 (104.33 kg, 165.1 cm) vc1 11/08 21:03 Pain Scale: Adult vc1 21:05 Pain Scale: Adult vc1 ED Course: 11/08 20:39 Patient arrived in ED. jj6 20:42 [facility] Dougherty [facility]-C [facility] kb 20:42 Real Flynn MD is Attending Physician. kb 21:04 Arm band placed on right wrist. vc1 21:05 Triage completed. vc1 22:00 Abdomen Limited US In Process Unspecified. EDMS 22:00 Report received from TOLU Irvin. vc1 22:15 Patient has correct armband on for positive identification. Bed in low position. Call vc1 light in reach. Pulse ox on. Sitter at bedside. 22:19 Steph Roy RN is Primary Nurse. vc1 22:58 CBC with Diff Sent. vc1 22:58 CMP Sent. vc1 22:58 Lipase Sent. vc1 22:58 Urinalysis w/ reflexes Sent. vc1 22:59 Initial lab(s) drawn, by wi, sent to lab. Urine collected: clean catch specimen, clear. vc1 Inserted saline lock: 20 gauge in right antecubital area, using aseptic technique. Blood collected. 11/09 00:22 No provider procedures requiring assistance completed. IV discontinued, intact, vc1 bleeding controlled, No redness/swelling at site. Pressure dressing applied. 00:23 Provided Education on: f/u with pcp. vc1 Administered Medications: 11/08 22:58 Drug: NS 0.9% IV 1000 ml IV at 1 bolus Per protocol; 1000 mL bolus Route: IV; Rate: 1 vc1 bolus; Site: right antecubital; 11/09 00:00 Follow up: IV Status: Completed infusion; IV Intake: 1000ml vc1 11/08 22:58 Drug: Famotidine IVP 20 mg IVP once; dilute with 10 mL 0.9% NaCl; give over 2 minutes vc1 Route: IVP; Site: right antecubital; 11/09 00:21 Follow up: Response: No adverse reaction; No change in condition vc1 11/08 22:58 Drug: TORadol - Ketorolac IVP 15 mg IVP once Route: IVP; Site: right antecubital; vc1 11/09 00:00 Follow up: Response: No adverse reaction; No change in condition vc1 11/08 22:58 Drug: Ondansetron IVP 4 mg IVP once; over 2 minutes Route: IVP; Site: right antecubital;vc1 11/09 00:00 Follow up: Response: No adverse reaction; Pain is unchanged, physician notified vc1 00:19 Drug: fentaNYL (PF) IVP 25 mcg IVP once Route: IVP; Site: right antecubital; vc1 00:22 Follow up: Response: Medication administered at discharge. vc1 Medication: 11/08 23:01 VIS not applicable for this client. vc1 Intake: 11/09 00:00 IV: 1000ml; Total: 1000ml. vc1 Outcome: 11/08 23:27 Discharge ordered by . arya 11/09 00:22 Discharged to home ambulatory, vc1 Condition: good Discharge instructions given to patient, Instructed on discharge instructions, follow up and referral plans. medication usage, Demonstrated understanding of instructions, follow-up care, medications, Prescriptions given X 2, 00:24 Patient left the ED. vc1 Signatures: Dispatcher [employer] EDDomi Gloria, JOHN SHIRLEY-Sonal Li jj6 Steph Roy, TOLU RN vc1
--- NOTE | 2023-11-09 23:28 | EDPHYS ---
Physician Documentation [facility] Name: Alie Gee Age: 38 yrs Sex: Female : 1985 Arrival Date: 11/09/2023 Time: 20:38 Bed 18 Private MD: ED Physician Real Flynn HPI: 11/08 22:13 This 38 yrs old Black Female presents to ER via Ambulatory with complaints of Abdominal kb Pain. 22:13 Pt is a 38 year old female who presents for upper abd pain that started last night. kb Denies n/v/d/fever. Pt has not had this pain in the past. . 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 - Infectious Disease History:: Denies. - Social history:: Smoking status: Patient reports the use of cigarette tobacco products, 7 cigs, Reported history of juuling and/or vaping. ROS: 22:13 Constitutional: As per HPI kb Exam: 22:13 Constitutional: This is a well developed, well nourished patient who is awake, alert, kb and in no acute distress. Head/Face: Normocephalic, atraumatic. ENT: Moist Mucous membranes Cardiovascular: Regular rate Respiratory: Respirations even and unlabored. No increased work of breathing. Talking in full sentences Abdomen/GI: Soft, non-tender. No distention Skin: Warm, dry with normal turgor. Normal color. MS/ Extremity: Pulses equal, no cyanosis. Neurovascular intact. Full, normal range of motion. Neuro: Awake and alert, GCS 15, oriented to person, place, time, and situation. Moves all extremities. Normal gait. Vital Signs: 21:03 Weight 104.33 kg; Height 5 ft. 5 in. ; Pain 7/10; vc1 21:05 Pain 8/10; vc1 21:06 BP 124 / 89; Pulse 97; Resp 15; Temp 98.3; Pulse Ox 100% ; vc1 22:00 BP 135 / 83; Pulse 80; Resp 14; Pulse Ox 100% ; vc1 23:00 BP 133 / 91; Pulse 78; Resp 14; Pulse Ox 100% ; vc1 11/09 00:00 BP 131 / 89; Pulse 66; Resp 15; Pulse Ox 100% ; vc1 11/08 21:03 Body Mass Index 38.27 (104.33 kg, 165.1 cm) vc1 11/08 21:03 Pain Scale: Adult vc1 21:05 Pain Scale: Adult vc1 MDM: 11/08 20:43 Patient medically screened. kb 22:13 Differential diagnosis: cholecystitis, Cholelithiasis, non-specific abd pain, kb pancreatitis. Data reviewed: vital signs, nurses notes. 23:27 Counseling: I had a detailed discussion with the patient and/or guardian regarding the kb historical points, exam findings, and any diagnostic results supporting the discharge/admit diagnosis, lab results, radiology results, the need for outpatient follow up, a family practitioner, to return to the emergency department if symptoms worsen or persist or if there are any questions or concerns that arise at home. 11/08 21:05 Order name: CBC with Diff; Complete Time: 23:10 kb 11/08 21:05 Order name: CMP; Complete Time: 23:24 kb 11/08 21:05 Order name: Lipase; Complete Time: 23:24 kb 11/08 21:05 Order name: Urinalysis w/ reflexes; Complete Time: 23:37 kb 11/08 21:05 Order name: Abdomen Limited US; Complete Time: 22:34 kb 11/08 21:05 Order name: IV Saline Lock; Complete Time: 22:58 kb 11/08 21:05 Order name: Labs collected and sent; Complete Time: 22:58 kb Administered Medications: 22:58 Drug: NS 0.9% IV 1000 ml IV at 1 bolus Per protocol; 1000 mL bolus Route: IV; Rate: 1 vc1 bolus; Site: right antecubital; 11/09 00:00 Follow up: IV Status: Completed infusion; IV Intake: 1000ml vc1 11/08 22:58 Drug: Famotidine IVP 20 mg IVP once; dilute with 10 mL 0.9% NaCl; give over 2 minutes vc1 Route: IVP; Site: right antecubital; 11/09 00:21 Follow up: Response: No adverse reaction; No change in condition vc1 11/08 22:58 Drug: TORadol - Ketorolac IVP 15 mg IVP once Route: IVP; Site: right antecubital; vc1 11/09 00:00 Follow up: Response: No adverse reaction; No change in condition vc1 11/08 22:58 Drug: Ondansetron IVP 4 mg IVP once; over 2 minutes Route: IVP; Site: right antecubital;vc1 11/09 00:00 Follow up: Response: No adverse reaction; Pain is unchanged, physician notified vc1 00:19 Drug: fentaNYL (PF) IVP 25 mcg IVP once Route: IVP; Site: right antecubital; vc1 00:22 Follow up: Response: Medication administered at discharge. vc1 Disposition: 04:42 Co-signature as Attending Physician, Real Flynn MD I agree with the assessment sp4 and plan of care. I reviewed the patient's care provided by the Advanced Practice Provider and agree with the diagnosis and treatment plan. Disposition Summary: 11/09/23 23:27 Discharge Ordered Notes: Location: Home kb Condition: Stable kb Diagnosis - Upper abdominal pain, unspecified kb Followup: kb - With: Emergency Department - When: As needed - Reason: Worsening of condition Followup: kb - With: Private Physician - When: 2 - 3 days - Reason: Recheck today's complaints, Continuance of care, Re-evaluation by your physician Discharge Instructions: - Discharge Summary Sheet kb - Abdominal Pain, Adult, Haae-he-Bpyw kb Forms: - Medication Reconciliation Form kb - Thank You Letter kb - Antibiotic Education kb - Prescription Opioid Use kb - Patient Portal Instructions kb - Leadership Thank You Letter kb Prescriptions: - Pepcid 20 mg Oral Tablet - take 1 tablet ORAL route once daily; 20 tablet; Refills: 0, Product Selection kb Permitted - dicyclomine 20 mg Oral tablet - take 1 tablet ORAL route 4 times per day As needed; 20 tablet; Refills: 0, kb Product Selection Permitted Signatures: Dispatcher [employer] Domi Hopson FNP-C FNP-Ckb Calcote, Vanessa, RN RN vc1 Real Flynn MD MD sp4 Corrections: (The following items were deleted from the chart) 04/01 21: 21:06 CBC+H.LAB.BRZ ordered. EDMS EDMS 21: 21:06 COMPREHENSIVE METABOLIC PANEL+C.LAB.BRZ ordered. EDMS EDMS : 21:06 LIPASE+C.LAB.BRZ ordered. EDMS EDMS 21: 21:06 Urinalysis+U.LAB.BRZ ordered. EDMS EDMS 21: 21:06 Abdomen Limited+US.RAD.BRZ ordered. EDMS EDMS
[2023-11-09 23:34] LABS: Specific Gravity 1.025 (1.005-1.030); Sqamous Epithelial <5 /HPF (None Seen); Urine Bacteria <20 /HPF (<20); Urine Bilirubin NEGATIVE (Negative); Urine Blood 1+ (Negative); Urine Clarity Clear (Clear); Urine Color Yellow (Yellow); Urine Culture Reflex Order NOT NEEDED; Urine Glucose NEGATIVE (Negative); Urine Ketones TRACE (Negative); Urine Microscopic Reflex YN ORDER UMIC; Urine Nitrite NEGATIVE (Negative); Urine Protein TRACE (Negative); Urine Urobilinogen 2+ (Normal); Urine WBC <5 /HPF (<5)
[2023-11-10] MEDS ORDERED: FENTANYL CITR 100 MCG/2 ML ONE (00:13)
[2023-11-10 11:18] VITALS: BP 131/89; TEMP 98.3; O2SAT 100
== END 2023-11-10 00:24 | disposition home or self-care (01) ==
LOC: ER 20:38
DX: R10.10 Upper abdominal pain, unspecified (principal)
CPT/HCPCS: 36415; 76705; 80053; 81001; 83690; 85025; 96361; 96374; 96375; 99285; J2405; J3010; J7030

== ENCOUNTER 2023-12-22 18:25 | Emergency (ER) | payer OTHER ==
--- OUTSIDE RECORDS SUMMARY | 2023-12-22 18:34 | XMS REPORT | Continuity of Care Document ---
Author Name Unknown Address [address] [facility] [address] [place] [address] [facility] thconnect Address [address] [facility] [address] [place] [address] Care Team Providers Care Fortune Cookie Maker Name Role Phone Cheikh Boyle MD Primary Care Physician + [phone] JARROD MERCADO Attending Clinician Unavailable TAIWO ALEGRIA Attending Clinician Unabette Cabezas [facility] Clinician Unavailable CHEIKH BOYLE Attending Clinician Unavailable SERGO VIERA Attending Clinician Unavailable Sergo David Attending Clinician [phone] Unknown, Attending Attending Clinician UnavailJarrod Sanchez MD Attending Clinician [phone] Malena Garcia MD Attending Clinician [phone] MALENA GARCIA Attending Clinician Unavailable Doctor Unassigned, [place] Attending Clinician U Troy Salas MD Attending Clinician [phone] TROY KHAN Attending Clinician Unavailab tommie Almeida, Kaly[facility] Main Attending Clinician UnavailNICANOR Cancino Attending Clinician Unavailable Nicanor Hall MD Attending Clinician [phone] Cheikh Boyle MD Attending Clinician [phone] Taiwo Bradford Attending Clinician [phone] Ebrahim TYPE COPY EXAMINER, Kaidenia Attending Clinician [phone] Frannie Smith PA-C Attending Clinician [phone] FRANNIE SMITH Attending Clinician Unavailable Lab, c Attending Clinician Unavailable ARIANNA WHITMORE Attending Clinician Unavailable Arianna Whitmore MD Attending Clinician [phone] Bennett RT, Kimberly C Attending Clinician Unavailab ANDRE Kennedy Attending Clinician Unavailable Therapist, [facility] Pulmonary Attending Clinician Shirley vailable EBSERA AMOS Attending Clinician Unavailable 2, [facility] Lab Attending Clinician Unavailable Red Cramer MD Attending Clinician + [phone] Nurse, [facility] Women's Health Attending Clinician Un available UNKNOWN, ATTENDING Attending Clinician Unavailab Sabiha Hernandez RN Attending Clinician Unavailable Only, Ang Mark Test Attending Clinician UnavailBlanka Vera LVN Attending Clinician Unavail able Ida MOTLEY, Kimmy Koo Attending Clinician Unavailable CAMELIA CORTEZ Attending Clinician Unavailable NII BONILLA Attending Clinician Unav ailable Nii Bonilla MD Attending Clinician + CIARRA FRANK Attending Clinician Unavailable Ciarra Zhu S Attending Clinician [phone] ADELINE WILLIAM Attending Clinician Unavailable LIZANRDO KEATING Attending Clinician Unavailable Lizandro Rodriguez Attending Clinician [phone] BRTITANY BELCHER Attending Clinician Unavailable JAN ESTRADA Attending Clinician Unavailable NATALIE ALMENDAREZ Attending Clinician Unavailable Natalie Mills Attending Clinician [phone] Nurse, [facility] Attending Clinician Un available Francis Valentin Attending Clinician [phone] FRANCIS BOWER Attending Clinician Unavailzoraida Kaur RN, Xochitl Stanford Attending Clinician Unavailab SHANNAN Morgan Attending Clinician Unavailab Shannan Fox Attending Clinician + [phone] Provider, [facility] Attending Clinician Unavailable Vaccine, Ang Db Cbc Fam Attending Clinician Unav ailable Dominic Peralta DO Attending Clinician DOMINIC PERALTA Attending Clinician Unavail able Brittany Belcher MD Attending Clinician [phone] Micheal Mayer DO Attending Clinician [phone] GAMALIEL GREER III Attending Clinician Unavailabl e JEREMIAH, Susana LUO Attending Clinician Unavailable Jeremiahjamal SANCHEZ Susana Sarah Attending Clinician [phone] Provider, Urgent Care Day Attending Clinician Un available OMAGHOMI, OMAYEMI Attending Clinician Unavailabl e Omaghomi TYPE COPY EXAMINER, Omayemi Attending Clinician [phone] Tomasa Chaidez Attending Clinician [phone] Kaley Coello RN Attending Clinician Unavaila TOMASA Agrawal Attending Clinician Unavailable TRUPTI COOPER Attending Clinician Unavail able THIERNO BUENO Attending Clinician Unavail able THIERNO BUENO Attending Clinician Unavail able TORY SAMPSON Attending Clinician Unavailable KEHINDE PATTERSON Attending Clinician Unavailable Jan Estrada MD Attending Clinician [phone] RAYO VAUGHN Attending Clinician Unavailable IVAN ROBERTSON Attending Clinician Unavailable AGUSTO DARLING Attending Clinician Unavailable AGUSTO DARLING Attending Clinician Unavailable NEAL OROZCO Attending Clinician Unavailab RED Cast Attending Clinician Unavaila ALBA Marrero Attending Clinician Unavailable [facility], [facility] Cardio Fac Attending Clinician Unavail able 2, [facility]io [facility] Room Attending Clinician Unava ilable Delmar Ramirez PT, Melisa Attending Clinician Un available Kyle Ortiz MD Attending Clinician [phone] MICHEAL MAYER Attending Clinician Unavailable Gamaliel Johnson MD Attending Clinician + [phone] Filomena Torres DO Attending Clinician [phone] JARROD MERCADO Admitting Clinician Unavailable Jarrod Mercado MD Admitting Clinician +[phone] ARIANNA WHITMORE Admitting Clinician Unavailable CHEIKH BOYLE Admitting Clinician Unavailable NII BONILLA Admitting Clinician Unav ailable CIARRA FRANK Admitting Clinician Unavailable NATALIE ALMENDAREZ Admitting Clinician Unavailable BRITTANY BELCHER Admitting Clinician Unavailable Brittany Belcher MD Admitting Clinician Susana DANIELS Admitting Clinician Unavailable MICHEAL MAYER Admitting Clinician Unavailable Payers Payer Name Policy Type Policy Number Effective Date Expirati on Date Source [facility] [id number] 2017 00:00:00 SERGIO JAVIER FROM [facility] [place] [id number] 2022 00:00:00 Problems Condition Name Condition Details Condition Category Status Onset Date Resolution Date Last Treatment Date Treating Clinician Comments Source Status post laparoscop ic hysterecto my Status post laparoscop ic hysterecto my Disease Active 09-02 00:00: 00 [facility] Status post bilateral salpingect fer Status post bilateral salpingect fer Disease Active 09-02 00:00: 00 [facility] Status post cystoscopy Status post cystoscopy Disease Active 09-02 00:00: 00 [facility] Preop cardiovasc ular exam Preop cardiovasc ular exam Disease Active 08-26 00:00: 00 [facility] PFO (patent foramen ovale) PFO (patent foramen ovale) Disease Active 08-26 00:00: 00 [facility] Cigarette smoker Cigarette smoker Disease Active 08-26 00:00: 00 [facility] Moderate episode of recurrent major depressive disorder Moderate episode of recurrent major depressive disorder Disease Active 1- 00:00: 00 [facility] Pre-op examinatio n Pre-op examinatio n Disease Active 1-10 00:00: 00 [facility] Abnormal uterine bleeding Abnormal uterine bleeding Disease Active 2022-08 2-14 00:00: 00 [facility] Tachycardi a Tachycardi a Disease Active 2022-08 0-04 00:00: 00 [facility] Mild intermitte nt asthma without complicati on Mild intermitte nt asthma without complicati on Disease Active 2022-08 0-04 00:00: 00 [facility] Bacterial vaginosis Bacterial vaginosis Disease Active 8-23 00:00: 00 [facility] COVID-19 virus infection COVID-19 virus infection Disease Active 8-23 00:00: 00 [facility] Migraine equivalent syndrome Migraine equivalent syndrome Disease Active 8-23 00:00: 00 [facility] Hemorrhagi c ovarian cyst Hemorrhagi c ovarian cyst Disease Active 3-30 00:00: 00 [facility] Obesity (BMI 30-39.9) Obesity (BMI 30-39.9) Disease Active 4-27 00:00: 00 [facility] Fibromyalg ia syndrome Fibromyalg ia syndrome Disease Active 3-10 00:00: 00 [facility] 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 simplex virus 2) infection Disease Active 2019-08 1- 00:00: 00 [facility] Muscle spasms of both lower extremitie s Muscle spasms of both lower extremitie s Disease Active 2019-08 1 00:00: 00 [facility] Muscle spasms of both lower extremitie s Muscle spasms of both lower extremitie s Disease Active 2019-08 00:00: 00 [facility] Need for prophylact ic vaccinatio n against hepatitis A and hepatitis B Need for prophylact ic vaccinatio n against hepatitis A and hepatitis B Disease Active 8-06 00:00: 00 [facility] Virilizati on Virilizati on Disease Active 8-04 00:00: 00 [facility] Shortness of breath Shortness of breath Disease Active 5- 00:00: 00 [facility] SOB (shortness of breath) on exertion SOB (shortness of breath) on exertion Disease Active 5- 00:00: 00 [facility] Acneiform rash Acneiform rash Disease Active 4-21 00:00: 00 [facility] Current smoker Current smoker Disease Active 3-27 00:00: 00 [facility] Nicotine dependence with current use Nicotine dependence with current use Disease Active 327 00:00: 00 [facility] Medication care plan discussed with patient Medication care plan discussed with patient Disease Active 3-24 00:00: 00 [facility] Former smoker Former smoker Disease Active 3-20 00:00: 00 [facility] Menetrier' s disease Menetrier' s disease Disease Active 20 00:00: 00 [facility] Hep C w/o coma, chronic Hep C w/o coma, chronic Disease Active 2 00:00: 00 [facility] Right lower quadrant abdominal pain Right lower quadrant abdominal pain Disease Active 08-31 00:00: 00 [facility] Bronchitis Bronchitis Disease Active 08-31 00:00: 00 [facility] Substernal chest pain Substernal chest pain Disease Active 08-31 00:00: 00 [facility] Cysts of both ovaries Cysts of both ovaries Disease Active 1-08 00:00: 00 [facility] Primary insomnia Primary insomnia Disease Active 1-03 00:00: 00 [facility] Bipolar 1 disorder Bipolar 1 disorder Disease Active 2018-08 00:00: 00 [facility] Nausea and vomiting in adult patient Nausea and vomiting in adult patient Disease Active 2018-08 00:00: 00 [facility] Anxiety Anxiety Disease Active 2018-08 00:00: 00 [facility] Current moderate episode of major depressive disorder, unspecifie d whether recurrent Current moderate episode of major depressive disorder, unspecifie d whether recurrent Disease Active 2018-08 00:00: 00 [facility] Cigarette nicotine dependence with other nicotine-i nduced disorder Cigarette nicotine dependence with other nicotine-i nduced disorder Disease Active 2018-08 00:00: 00 [facility] Schizophre era with prominent negative symptoms Schizophre era with prominent negative symptoms Disease Active 2018-08 00:00: 00 [facility] IVDU (intraveno us drug user) IVDU (intraveno us drug user) Disease Active 2018-08 2-16 00:00: 00 [facility] Morbid obesity with body mass index (BMI) of 40.0 to 49.9 Morbid obesity with body mass index (BMI) of 40.0 to 49.9 Disease Active 2018-08 0-17 00:00: 00 [facility] Allergies, Adverse Reactions, Alerts Allergy Name Allergy Type Status Severity Reaction(s) Onset Date Inactive Date Treating Clinician Comments Source NO KNOWN ALLERGIE S Drug Class Active [facility] Social History Social Habit Start Date Stop Date Quantity Comments Source History SDOH Alcohol Frequency [facility] History SDOH Alcohol Std Drinks [facility] History SDOH Alcohol Binge [facility] History of tobacco use Passive smoker [facility] Alcohol intake 2023-09-15 00:00:00 2023-09-15 00:00:00 Current drinker of alcohol (finding) [facility] Alcoholic beverage intake 2023-09-15 00:00:00 2023-09-15 00:00:00 Current drinker of alcohol (finding) [facility] History of Social function 2023-09-02 00:00:00 2023-09-02 00:00:00 [facility] Tobacco Comment 2023-08-31 00:00:00 2023-08-31 00:00:00 Stopped vaping ~1 yr ago (only smokes two cigarettes per day) [facility] Cigarettes smoked current (pack per day) - Reported 2023-08-31 00:00:00 2023-08-31 00:00:00 [facility] Cigarette pack-years 2023-08-31 00:00:00 2023-08-31 00:00:00 [facility] Tobacco use and exposure 2023-08-31 00:00:00 2023-08-31 00:00:00 Smokeless tobacco non-user [facility] Exposure to SARS-CoV-2 (event) 2022-08-06 00:00:00 2022-08-16 11:23:00 Not sure [facility] Alcohol Comment 2021-10-03 00:00:00 2021-10-03 00:00:00 every weekend [facility] Sex assigned at 1985 00:00:00 1985 00:00:00 [facility] Smoking Status Start Date Stop Date Source Smokes tobacco daily 2023-08-31 00:00:00 [facility] Medications Ordered Medication Name Filled Medication Name Start Date Stop Date Current Medication? Ordering Clinician Indication Dosage Frequency Signature (SIG) Comments Components Source benzonatate 200 mg capsule 12-03 00:00: 00 12-14 04:59 :00 Yes [id number] 200mg Take 1 capsule by mouth 3 (three) times daily as needed for Cough for up to 10 days. [facility] glecaprevir -pibrentasv ir (MAVYRET) 100-40 mg - 12:19: 10 Yes 3{tbl} Take 3 tablets by mouth in the morning. [facility] benzonatate 100 mg capsule - 00:00: 00 Yes [id number] 200mg Take 2 capsules by mouth every 8 (eight) hours as needed for Cough. [facility] acetaminoph en-codeine 300-30 mg tablet -06 00:00: 00 09-23 05:59 :00 No [id number] 1{tbl} Take 1 tablet by mouth every 4 (four) hours as needed for Pain (scale 7-10) for up to 7 days. Indication s: acute pain [facility] HYDROcodone -acetaminop hen 5-325 mg tablet 1-30 00:00: 00 09-11 05:59 :00 No [id number] 1{tbl} Take 1 tablet by mouth every 6 (six) hours as needed for Pain (scale 7-10) for up to 2 days. Indication s: acute pain [facility] glecaprevir -pibrentasv ir (MAVYRET) 100-40 mg 1-25 10:43: 47 Yes 3{tbl} Take 3 tablets by mouth in the morning. [facility] simethicone (GAS RELIEF (SIMETHICON E)) chewable tablet 160 mg 09-03 03:00: 00 Yes 160mg 160 mg, Oral, PC+HS, First dose on Thu09/02/23 at 2100, Until Discontinu ed, Routine [facility] docusate (COLACE) capsule 100 mg 09-03 02:00: 00 Yes 100mg 100 mg, Oral, Q12H, First dose on Thu09/02/23 at 2000, Until Discontinu ed, Routine [facility] metroNIDAZO LE (FLAGYL) tablet 500 mg 09-03 02:00: 00 09-10 01:59 :00 No 500mg 500 mg, Oral, Q12H, 14 doses, First dose on Thu09/02/23 at 2000, Last dose on Thu09/09/23 at 0800, Routine
Reason for Anti-Infec tive: Surgical Prophylaxi s
Surgi norma Prophylaxi s: PERIOPERATIVE TECH
Duration of therapy: within 24 hours of surgery [facility] lactated ringers IV infusion 1,000 mL 09-03 01:00: 00 Yes 1000mL at 75 mL/hr, 1,000 mL, IV Infusion, CONTINUOUS , Starting on Thu09/02/23 at 1900, Until Discontinu ed, Routine, PACU [facility] ibuprofen (IBU) tablet 600 mg 09-03 00:52: 14 Yes 600mg 600 mg, Oral, Q6HPRN, Starting on Thu09/02/23 at 1852, Until Discontinu ed, Routine, Pain (scale 4-6) [facility] hydrOXYzine (ATARAX) tablet 25 mg 09-03 00:50: 18 Yes 25mg 25 mg, Oral, Q8HPRN, Starting on Thu09/02/23 at 1850, Until Discontinu ed, Routine, Itching [facility] ondansetron (ZOFRAN (PF)) injection 4 mg 09-03 00:50: 15 Yes 4mg 4 mg, Slow IV Push, Q4HPRN, Starting on Thu09/02/23 at 1850, Until Discontinu ed, Routine, Nausea and Vomiting (N/V) [facility] HYDROcodone -acetaminop hen (NORCO 5) 5-325 mg tablet 2 tablet 09-03 00:50: 12 Yes 2{tbl} 2 tablet, Oral, Q4HPRN, Starting on Thu09/02/23 at 1850, Until Discontinu ed, Routine, Pain (scale 7-10) [facility] acetaminoph en (TYLENOL) tablet 650 mg 09-03 00:50: 06 Yes 650mg 650 mg, Oral, Q6HPRN, Starting on Thu09/02/23 at 1850, Until Discontinu ed, Routine, Pain (scale 1-3) [facility] HYDROcodone -acetaminop hen (NORCO 5) 5-325 mg tablet 1 tablet 09-03 00:30: 00 09-03 00:53 :00 No 1{tbl} 1 tablet, Oral, ONCE, 1 dose, On Thu09/02/23 at 1830, Routine, PACU [facility] FENTanyl PF (SUBLIMAZE (PF)) injection 25 mcg 09-03 00:27: 30 09-03 00:50 :00 No 25ug 25 mcg, Slow IV Push, Q5MIN PRN, 4 doses, Starting on Thu09/02/23 at 1827, Until Discontinu ed, Routine, Pain (scale 4-6), PACU [facility] sodium chloride 0.9 % irrigation solution 09-02 22:55: 00 09-03 00:41 :54 No PRN, Starting on Thu09/02/23 at 1655, Until Thu09/02/23 at 1841, Intra-op [facility] bupivacaine (preserv free) 0.5% (SENSORCAIN E MPF) injection 09-02 22:55: 00 09-03 00:41 :54 No PRN, Starting on Thu09/02/23 at 1655, Until Thu09/02/23 at 1841, Routine, Intra-op [facility] phenazopyri dine (PYRIDIUM) tablet 200 mg 09-02 19:45: 00 09-02 19:58 :00 No 200mg 200 mg, Oral, ONCE, 1 dose, On Thu09/02/23 at 1345, Routine [facility] lactated ringers IV infusion 1,000 mL 09-02 19:45: 00 09-02 19:58 :00 No 1000mL at 42 mL/hr, 1,000 mL, IV Infusion, ONCE, 1 dose, On Thu09/02/23 at 1345, Routine, DSU Pre-op [facility] ibuprofen 600 mg tablet 09-02 00:00: 00 Yes [id number] 600mg Take 1 tablet by mouth every 6 (six) hours as needed for Pain (scale 1-3) or Pain (scale 4-6). [facility] simethicone 80 mg chewable tablet 09-02 00:00: 00 Yes [id number] 80mg Take 1 tablet by mouth after meals and at bedtime. [facility] metroNIDAZO LE (FLAGYL) 500 mg tablet 09-02 00:00: 00 Yes [id number] 500mg Take 1 tablet by mouth every 12 (twelve) hours. [facility] HYDROcodone -acetaminop hen 5-325 mg tablet 09-02 00:00: 00 09-05 05:59 :00 No [id number] 1{tbl} Take 1 tablet by mouth every 6 (six) hours as needed for Pain (scale 7-10) for up to 2 days. Indication s: acute pain [facility] glecaprevir -pibrentasv ir (MAVYRET) 100-40 mg 08-31 09:40: 53 Yes 3{tbl} Take 3 tablets by mouth in the morning. [facility] DULoxetine 20 mg capsule 08-19 00:00: 00 Yes [id number] 20mg Take 1 capsule by mouth in the morning and 1 capsule in the evening. [facility] buPROPion SR (WELLBUTRIN SR) 150 mg SR tablet 08-19 00:00: 00 Yes [id number] 150mg Take 1 tablet by mouth in the morning and 1 tablet in the evening. [facility] topiramate 50 mg tablet 08-19 00:00: 00 Yes [id number] 50mg Take 1 tablet by mouth in the morning and 1 tablet in the evening. [facility] doxepin 100 mg capsule 08-19 00:00: 00 Yes [id number] 100mg Take 1 capsule by mouth at bedtime. [facility] ARIPiprazol e (ABILIFY) 5 mg tablet 08-19 00:00: 00 Yes [id number] 5mg Take 1 tablet by mouth in the morning. [facility] glecaprevir -pibrentasv ir 100-40 mg 2022-08 00:00: 00 Yes [id number] 3{tbl} Take 3 tablets by mouth in the morning. [facility] miSOPROStoL 200 mcg tablet 2022-08 00:00: 00 07-30 00:00 :00 No [id number] 100 200ug Take 1 tablet by mouth SEE-INSTRU CTIONS. Take one tab the night before and one tab the morning of procedure [facility] sofosbuvir- velpatasvir 400-100 mg 2022-08 00:00: 00 07-24 00:00 :00 No [id number] 1{tbl} Take 1 tablet by mouth in the morning. [facility] amoxicillin 875 mg tablet 2022-08 00:00: 00 07-20 05:59 :00 No [id number] 05 875mg Take 1 tablet by mouth in the morning and 1 tablet in the evening. Do all this for 10 days. [facility] iopamidol (ISOVUE 370-500 mL) injection 100 mL 2022-08 08:30: 00 06-29 08:30 :00 No [id number] 100mL 100 mL, Intravenou s, ONCE, 1 dose, On Thu06/29/23 at 0230, Routine [facility] ondansetron (ZOFRAN (PF)) injection 4 mg 2022-08 05:45: 00 06-29 05:55 :00 No 4mg 4 mg, Slow IV Push, ONCE, 1 dose, On 06/28/23 at 2345, UZMA [facility] morpHINE (4 mg/mL) injection 4 mg 2022-08 05:45: 00 06-29 05:56 :00 No 4mg 4 mg, Slow IV Push, ONCE, 1 dose, On 06/28/23 at 2345, STAT [facility] lactulose 10 gram/15 mL oral solution 2022-08 00:00: 00 Yes [id number] 30mL Take 30 mL by mouth 3 (three) times daily as needed for Constipati on or For bowel movement. [facility] dicyclomine 20 mg tablet 2022-08 00:00: 00 08-19 00:00 :00 No [id number] 20mg Take 1 tablet by mouth every 6 (six) hours as needed for Abdominal pain. [facility] ondansetron (ZOFRAN) 4 mg tablet 2022-08 00:00: 00 08-19 00:00 :00 No [id number] 4mg Take 1 tablet by mouth every 8 (eight) hours as needed for Nausea and Vomiting (N/V). [facility] ipratropium 0.02 % nebulizer solution 2022-08 00:00: 00 Yes [id number] .5mg Inhale 2.5 mL every 8 (eight) hours as needed for Wheezing or Shortness of Breath. [facility] ARIPiprazol e (ABILIFY) 5 mg tablet 2022-08 0 00:00: 00 08-19 00:00 :00 No [id number] 5mg Take 1 tablet by mouth in the morning. [facility] doxepin 100 mg capsule 2022-08 0-06 00:00: 00 08-19 00:00 :00 No [id number] 100mg Take 1 capsule by mouth at bedtime. [facility] doxepin 100 mg capsule 2022-08 0- 00:00: 00 05-15 00:00 :00 No [id number] 100mg Take 1 capsule by mouth at bedtime. [facility] ARIPiprazol e (ABILIFY) 5 mg tablet 2022-08 0- 00:00: 00 05-15 00:00 :00 No [id number] 5mg Take 1 tablet by mouth in the morning. [facility] medroxyPROG ESTERone (DEPO-PROVE RA) syringe 150 mg 04-29 21:30: 00 04-29 20:38 :[id number] [facility] valACYclovi r 1 gram tablet 04-28 00:00: 00 Yes [id number] 1g Take 1 tablet by mouth in the morning. [facility] tretinoin 0.075 % Crea 04-28 00:00: 00 Yes [id number] 1g Apply 1 g to area(s) at bedtime. [facility] sofosbuvir- velpatasvir (EPCLUSA) 400-100 mg 04-21 00:00: 00 07-10 00:00 :00 No [id number] 1{tbl} Take 1 tablet by mouth in the morning. [facility] albuterol 90 mcg/actuati on inhaler 04-01 00:00: 00 Yes [id number] 2{puff} Inhale 2 Puffs every 4 (four) hours as needed for Wheezing or Shortness of Breath. [facility] albuterol 2.5 mg /3 mL (0.083 %) nebulizer solution 04-01 00:00: 00 Yes [id number] 2.5mg Inhale 3 mL every 4 (four) hours as needed for Wheezing or Shortness of Breath. [facility] buPROPion SR (WELLBUTRIN SR) 150 mg SR tablet 04-01 00:00: 00 08-19 00:00 :00 No [id number] 150mg Take 1 tablet by mouth in the morning and 1 tablet in the evening. [facility] DULoxetine 20 mg capsule 04-01 00:00: 00 08-19 00:00 :00 No [id number] 20mg Take 1 capsule by mouth in the morning and 1 capsule in the evening. [facility] topiramate 50 mg tablet 04-01 00:00: 00 08-19 00:00 :00 No [id number] 50mg Take 1 tablet by mouth in the morning and 1 tablet in the evening. [facility] ipratropium 0.02 % nebulizer solution 04-01 00:00: 00 06-10 00:00 :00 No [id number] .5mg Inhale 2.5 mL every 8 (eight) hours as needed for Wheezing or Shortness of Breath. [facility] doxepin 50 mg capsule 04-01 00:00: 00 05-13 00:00 :00 No [id number] 50mg Take 1 capsule by mouth at bedtime. [facility] nirmatrelvi r-ritonavir (PAXLOVID, EUA,) 300 mg (150 mg x 2)-100 mg tablet 04-01 00:00: 00 05-13 00:00 :00 No [id number] 3{tbl} Take 3 tablets by mouth in the morning and 3 tablets in the evening. [facility] QUEtiapine (SEROQUEL) 100 mg tablet 04-01 00:00: 00 05-13 00:00 :00 No [id number] 100mg Take 1 tablet by mouth in the morning and 1 tablet in the evening. [facility] glecaprevir -pibrentasv ir (MAVYRET) 100-40 mg 04-01 00:00: 00 04-21 00:00 :00 No [id number] 3{tbl} Take 3 tablets by mouth in the morning. [facility] metroNIDAZO LE (FLAGYL) 500 mg tablet 04-01 00:00: 04-09 04:59 :00 No [id number] 500mg Take 1 tablet by mouth in the morning and 1 tablet in the evening. Do all this for 7 days. [facility] ibuprofen 600 mg tablet 03-30 00:00: 00 04-01 00:00 :00 No [id number] 600mg Take 1 tablet by mouth every 6 (six) hours as needed for Pain (scale 1-3) or Pain (scale 4-6). [facility] metroNIDAZO LE 500 mg tablet 02-05 00:00: 00 04-01 00:00 :00 No [id number] 500mg Take 1 tablet by mouth every 12 (twelve) hours. [facility] medroxyPROG ESTERone (DEPO-PROVE RA) syringe 150 mg 02-02 22:00: 00 02-02 20:59 :00 No [id number] 150mg [facility] valACYclovi r 1 gram tablet 02-02 00:00: 00 04-28 00:00 :00 No [id number] 1g Take 1 tablet by mouth in the morning. [facility] neomycin-po lymyxin-hyd rocortisone otic solution 03-24 00:00: 04-01 00:00 :00 No [id number] 4[drp] Place 4 Drops in right ear 4 (four) times daily. [facility] amoxicillin 875 mg tablet 03-24 00:00: 04-01 04:59 :00 No [id number] 875mg Take 1 tablet by mouth in the morning and 1 tablet in the evening. Do all this for 7 days. [facility] iopamidol (ISOVUE 370-500 mL) injection 55 mL 02-18 01:45: 00 02-18 01:45 :00 No [id number] 55mL 55 mL, Intravenou s, ONCE, 1 dose, On Thu02/17/22 at 2045, Routine [facility] ketorolac (TORADOL) injection 15 mg 02-18 01:45: 00 02-18 01:15 :00 No 15mg 15 mg, Slow IV Push, ONCE, 1 dose, On 02/17/22 at 2045, [facility] HYDROcodone -acetaminop hen (NORCO) 10-325 mg tablet 1 tablet 02-18 01:00: 00 02-18 00:20 :00 No 1{tbl} 1 tablet, Oral, ONCE NOW, 1 dose, On Thu02/17/22 at 2000, Routine [facility] ibuprofen 600 mg tablet 02-17 00:00: 00 03-30 00:00 :00 No [id number] 600mg Take 1 tablet by mouth every 6 (six) hours as needed for Pain (scale 4-6). [facility] ketorolac (TORADOL) injection 30 mg 11-24 09:45: 00 11-24 09:19 :00 No 30mg 30 mg, Slow IV Push, ONCE, 1 dose, On 11/24/21 at 0445, Routine
family member caretaker approving Restricted medication : ARIANNA WHITMORE [facility] morpHINE injection 4 mg 11-24 08:15: 00 11-24 08:03 :00 No 4mg 4 mg, Slow IV Push, ONCE, 1 dose, On 11/24/21 at 0315, STAT [facility] FENTanyl PF (SUBLIMAZE (PF)) injection 50 mcg 11-24 05:16: 00 11-24 05:20 :00 No 50ug 50 mcg, Slow IV Push, ONCE, 1 dose, On 11/24/21 at 0030, Routine [facility] ondansetron (ZOFRAN (PF)) injection 4 mg 11-24 04:30: 00 11-24 03:45 :00 No 4mg 4 mg, Slow IV Push, ONCE, 1 dose, On 11/23/21 at 2330, [facility] FENTanyl PF (SUBLIMAZE (PF)) injection 50 mcg 11-24 04:30: 00 11-24 03:45 :00 No 50ug 50 mcg, Slow IV Push, ONCE, 1 dose, On 11/23/21 at 2330, Routine [facility] iopamidol (ISOVUE 370-500 mL) injection 100 mL 11-24 04:19: 00 11-24 04:19 :00 No [id number] 100mL 100 mL, Intravenou s, ONCE, 1 dose, On 11/23/21 at 2330, [facility] -acet[facility] (NORCO) 10-325 mg tablet 11-24 00:00: 00 04-01 00:00 :00 No [id number] 1{tbl} Take 1 tablet by mouth every 6 (six) hours as needed for Pain (scale 7-10). Indication s: acute pain [facility] ketorolac 10 mg tablet 11-24 00:00: 00 03-30 00:00 :00 No [id number] 10mg Take 1 tablet by mouth every 6 (six) hours as needed for Alternate with [place] for pain scale 4-6. [facility] ibuprofen 800 mg tablet - 00:00: 00 04-01 00:00 :00 No [id number] 800mg Take 1 tablet by mouth every 8 (eight) hours. [facility] oxyCODONE-a cetaminophe n 5-325 mg per tablet 3- 00:00: 00 04-01 00:00 :00 No [id number] 1{tbl} Take 1 tablet by mouth every 6 (six) hours as needed for Pain (scale 4-6). Indication s: acute pain [facility] chlorhexidi ne 0.12 % mouthwash 1-03 00:00: 00 04-01 00:00 :00 No [facility] DULOXETINE 20 mg capsule - 00:00: 00 04-01 00:00 :00 No [id number] TAKE 1 CAPSULE BY MOUTH TWICE DAILY [facility] glecaprevir -pibrentasv ir (MAVYRET) 100-40 mg 10-28 00:00: 00 04-01 00:00 :00 No [id number] 3{tbl} Take 3 tablets by mouth in the morning. [facility] buPROPion SR (WELLBUTRIN SR) 150 mg SR tablet 10-28 00:00: 00 04-01 00:00 :00 No [id number] 150mg Take 1 tablet by mouth daily. [facility] benzoyl peroxide (ACNE FOAMING WASH) 10 % external wash 10-28 00:00: 00 04-01 00:00 :00 No [id number] Apply to area(s) 2 (two) times daily. [facility] albuterol 90 mcg/actuati on inhaler 10-28 00:00: 00 04-01 00:00 :00 No [id number] 2{puff} Inhale 2 Puffs every 4 (four) hours as needed for Wheezing or Shortness of Breath. [facility] albuterol 2.5 mg /3 mL (0.083 %) nebulizer solution 10-28 00:00: 00 04-01 00:00 :00 No [id number] 2.5mg Inhale 3 mL every 4 (four) hours as needed for Wheezing or Shortness of Breath. [facility] meclizine 25 mg tablet 10-28 00:00: 00 04-01 00:00 :00 No [id number] 25mg Take 1 tablet by mouth 3 (three) times daily as needed for Dizziness. [facility] valACYclovi r 1 gram tablet 10-28 00:00: 00 02-02 00:00 :00 No [id number] 1g Take 1 tablet by mouth daily. [facility] lidocaine 3 % Crea 10-28 00:00: 00 11-07 00:00 :00 No [id number] 2g Apply 2 g to area(s) 3 (three) times daily as needed for Pain (scale 4-6). [facility] bromphenira mine-pseudo ephedrine-D M (BROMFED DM) 2-30-10 mg/5 mL syrup 10-28 00:00: 00 11-07 00:00 :00 No [id number] 5mL Take 5 mL by mouth 4 (four) times daily as needed for Congestion /Allergies . [facility] dicyclomine 20 mg tablet 10-28 00:00: 00 11-07 00:00 :00 No [id number] 20mg Take 1 tablet by mouth every 6 (six) hours as needed for Abdominal pain. [facility] DULoxetine 20 mg capsule 10-28 00:00: 00 12-20 00:00 :00 No [id number] 20mg Take 1 capsule by mouth 2 (two) times daily. [facility] topiramate 50 mg tablet 10-25 00:00: 00 04-01 00:00 :00 No 50mg Take 1 tablet by mouth 2 (two) times daily. [facility] triamcinolo ne acetonide 0.1 % cream 08-17 00:00: 00 Yes [id number] Apply to area(s) 2 (two) times daily. [facility] tretinoin 0.075 % Crea 08-17 00:00: 00 04-28 00:00 :00 No [id number] 1g Apply 1 g to area(s) at bedtime. [facility] fluticasone propionate 110 mcg/actuati on inhaler 08-17 00:00: 00 04-01 00:00 :00 No [id number] 1{puff} Inhale 1 Puff every 12 (twelve) hours. [facility] carBAMazepi ne 400 mg 12 hr tablet 08-17 00:00: 00 04-01 00:00 :00 No [id number] 400mg Take 1 tablet by mouth 2 (two) times daily. [facility] doxepin 50 mg capsule 08-17 00:00: 04-01 00:00 :00 No [id number] 50mg Take 1 capsule by mouth at bedtime. [facility] ipratropium 0.02 % nebulizer solution 08-17 00:00: 00 04-01 00:00 :00 No [id number] .5mg Inhale 2.5 mL every 8 (eight) hours as needed for Wheezing or Shortness of Breath. [facility] [employer] Kit 08-17 00:00: 00 11-07 00:00 :00 No [id number] J40: Brochitis - Dispense # 1 Laura Respironic s (okay for alternativ e brand) for nebulizer treatment [facility] azelaic acid 20 % cream 08-17 00:00: 00 11-07 00:00 :00 No [id number] Apply to area(s) 2 (two) times daily. Apply 2g to affected areas BID [facility] ondansetron (ZOFRAN) 4 mg tablet 08-17 00:00: 00 11-07 00:00 :00 No [id number] 4mg Take 1 tablet by mouth every 8 (eight) hours as needed for Nausea and Vomiting (N/V). [facility] proMETHazin e (PHENERGAN) 25 mg suppository 08-17 00:00: 00 11-07 00:00 :00 No [id number] 25mg Insert 1 Suppositor y into rectum every 4 (four) hours as needed for Nausea and Vomiting (N/V). [facility] predniSONE 20 mg tablet 2019-08- 00:00: 00 11-07 00:00 :00 No [id number] 60mg Take 3 tablets by mouth every morning. [facility] benzonatate 100 mg capsule 9-13 00:00: 00 11-07 00:00 :00 No 100mg Take 1 capsule by mouth 3 (three) times daily as needed for Cough. [facility] Immunizations Ordered Immunization Name Filled Immunization Name Date Status Comments Source SARS-COV-2 COVID-19 MODERNA 0.25ML BOOSTER VACCINE 2022-01-23 00:00:00 Completed [facility] SARS-COV-2 COVID-19 MODERNA 0.25ML BOOSTER VACCINE 2022-01-23 00:00:00 Completed [facility] SARS-COV-2 COVID-19 MODERNA 0.25ML BOOSTER VACCINE 2022-01-23 00:00:00 Completed [facility] SARS-COV-2 COVID-19 MODERNA 0.25ML BOOSTER VACCINE 2022-01-23 00:00:00 Completed [facility] SARS-COV-2 COVID-19 MODERNA 0.25ML BOOSTER VACCINE 2022-01-23 00:00:00 Completed [facility] SARS-COV-2 COVID-19 MODERNA 0.25ML BOOSTER VACCINE 2022-01-23 00:00:00 Completed [facility] SARS-COV-2 COVID-19 MODERNA 0.25ML BOOSTER VACCINE 2022-01-23 00:00:00 Completed [facility] SARS-COV-2 COVID-19 MODERNA 0.25ML BOOSTER VACCINE 2022-01-23 00:00:00 Completed [facility] SARS-COV-2 COVID-19 MODERNA 0.25ML BOOSTER VACCINE 2022-01-23 00:00:00 Completed [facility] SARS-COV-2 COVID-19 MODERNA 0.25ML BOOSTER VACCINE 2022-01-23 00:00:00 Completed [facility] SARS-COV-2 COVID-19 MODERNA 0.25ML BOOSTER VACCINE 2022-01-23 00:00:00 Completed [facility] SARS-COV-2 COVID-19 MODERNA 0.25ML BOOSTER VACCINE 2022-01-23 00:00:00 Completed [facility] SARS-COV-2 COVID-19 MODERNA 0.25ML BOOSTER VACCINE 2022-01-23 00:00:00 Completed [facility] SARS-COV-2 COVID-19 MODERNA 0.25ML BOOSTER VACCINE 2022-01-23 00:00:00 Completed [facility] SARS-COV-2 COVID-19 MODERNA 0.25ML BOOSTER VACCINE 2022-01-23 00:00:00 Completed [facility] SARS-COV-2 COVID-19 MODERNA 0.25ML BOOSTER VACCINE 2022-01-23 00:00:00 Completed [facility] SARS-COV-2 COVID-19 MODERNA 0.25ML BOOSTER VACCINE 2022-01-23 00:00:00 Completed [facility] SARS-COV-2 COVID-19 MODERNA 0.25ML BOOSTER VACCINE 2022-01-23 00:00:00 Completed [facility] SARS-COV-2 COVID-19 MODERNA 0.25ML BOOSTER VACCINE 2022-01-23 00:00:00 Completed [facility] SARS-COV-2 COVID-19 MODERNA 0.25ML BOOSTER VACCINE 2022-01-23 00:00:00 Completed [facility] SARS-COV-2 COVID-19 MODERNA 0.25ML BOOSTER VACCINE 2022-01-23 00:00:00 Completed [facility] SARS-COV-2 COVID-19 MODERNA 0.25ML BOOSTER VACCINE 2022-01-23 00:00:00 Completed [facility] SARS-COV-2 COVID-19 MODERNA 0.25ML BOOSTER VACCINE 2022-01-23 00:00:00 Completed [facility] SARS-COV-2 COVID-19 MODERNA 0.25ML BOOSTER VACCINE 2022-01-23 00:00:00 Completed [facility] SARS-COV-2 COVID-19 MODERNA 0.25ML BOOSTER VACCINE 2022-01-23 00:00:00 Completed [facility] SARS-COV-2 COVID-19 MODERNA 0.25ML BOOSTER VACCINE 2022-01-23 00:00:00 Completed [facility] SARS-COV-2 COVID-19 MODERNA 0.25ML BOOSTER VACCINE 2022-01-23 00:00:00 Completed [facility] SARS-COV-2 COVID-19 MODERNA 0.25ML BOOSTER VACCINE 2022-01-23 00:00:00 Completed [facility] SARS-COV-2 COVID-19 MODERNA 0.25ML BOOSTER VACCINE 2022-01-23 00:00:00 Completed [facility] SARS-COV-2 COVID-19 MODERNA 0.25ML BOOSTER VACCINE 2022-01-23 00:00:00 Completed [facility] SARS-COV-2 COVID-19 MODERNA 0.25ML BOOSTER VACCINE 2022-01-23 00:00:00 Completed [facility] SARS-COV-2 COVID-19 MODERNA 0.25ML BOOSTER VACCINE 2022-01-23 00:00:00 Completed [facility] SARS-COV-2 COVID-19 MODERNA 0.25ML BOOSTER VACCINE 2022-01-23 00:00:00 Completed [facility] SARS-COV-2 COVID-19 MODERNA 0.25ML BOOSTER VACCINE 2022-01-23 00:00:00 Completed [facility] SARS-COV-2 COVID-19 MODERNA 0.25ML BOOSTER VACCINE 2022-01-23 00:00:00 Completed [facility] SARS-COV-2 COVID-19 MODERNA 0.25ML BOOSTER VACCINE 2022-01-23 00:00:00 Completed [facility] SARS-COV-2 COVID-19 MODERNA 0.25ML BOOSTER VACCINE 2022-01-23 00:00:00 Completed [facility] SARS-COV-2 COVID-19 MODERNA 0.25ML BOOSTER VACCINE 2022-01-23 00:00:00 Completed [facility] SARS-COV-2 COVID-19 MODERNA 0.25ML BOOSTER VACCINE 2022-01-23 00:00:00 Completed [facility] SARS-COV-2 COVID-19 MODERNA 0.25ML BOOSTER VACCINE 2022-01-23 00:00:00 Completed [facility] SARS-COV-2 COVID-19 MODERNA 0.25ML BOOSTER VACCINE 2022-01-23 00:00:00 Completed [facility] SARS-COV-2 COVID-19 MODERNA 0.25ML BOOSTER VACCINE 2022-01-23 00:00:00 Completed [facility] SARS-COV-2 COVID-19 MODERNA 0.25ML BOOSTER VACCINE 2022-01-23 00:00:00 Completed [facility] SARS-COV-2 COVID-19 MODERNA 0.25ML BOOSTER VACCINE 2022-01-23 00:00:00 Completed [facility] SARS-COV-2 COVID-19 MODERNA 0.25ML BOOSTER VACCINE 2022-01-23 00:00:00 Completed [facility] SARS-COV-2 COVID-19 MODERNA VACCINE 2020-11-14 00:00:00 Completed [facility] SARS-COV-2 COVID-19 MODERNA VACCINE 2020-11-14 00:00:00 Completed [facility] SARS-COV-2 COVID-19 MODERNA VACCINE 2020-11-14 00:00:00 Completed [facility] SARS-COV-2 COVID-19 MODERNA VACCINE 2020-11-14 00:00:00 Completed [facility] SARS-COV-2 COVID-19 MODERNA VACCINE 2020-11-14 00:00:00 Completed [facility] SARS-COV-2 COVID-19 MODERNA VACCINE 2020-11-14 00:00:00 Completed [facility] SARS-COV-2 COVID-19 MODERNA VACCINE 2020-11-14 00:00:00 Completed [facility] SARS-COV-2 COVID-19 MODERNA VACCINE 2020-11-14 00:00:00 Completed [facility] SARS-COV-2 COVID-19 MODERNA VACCINE 2020-11-14 00:00:00 Completed [facility] SARS-COV-2 COVID-19 MODERNA VACCINE 2020-11-14 00:00:00 Completed [facility] SARS-COV-2 COVID-19 MODERNA VACCINE 2020-11-14 00:00:00 Completed [facility] SARS-COV-2 COVID-19 MODERNA VACCINE 2020-11-14 00:00:00 Completed [facility] SARS-COV-2 COVID-19 MODERNA 12+ YRS VACCINE 2020-11-14 00:00:00 Completed [facility] SARS-COV-2 COVID-19 MODERNA 12+ YRS VACCINE 2020-11-14 00:00:00 Completed [facility] SARS-COV-2 COVID-19 MODERNA 12+ YRS VACCINE 2020-11-14 00:00:00 Completed [facility] SARS-COV-2 COVID-19 MODERNA 12+ YRS VACCINE 2020-11-14 00:00:00 Completed [facility] SARS-COV-2 COVID-19 MODERNA 12+ YRS VACCINE 2020-11-14 00:00:00 Completed [facility] SARS-COV-2 COVID-19 MODERNA 12+ YRS VACCINE 2020-11-14 00:00:00 Completed [facility] SARS-COV-2 COVID-19 MODERNA 12+ YRS VACCINE 2020-11-14 00:00:00 Completed [facility] SARS-COV-2 COVID-19 MODERNA 12+ YRS VACCINE 2020-11-14 00:00:00 Completed [facility] SARS-COV-2 COVID-19 MODERNA 12+ YRS VACCINE 2020-11-14 00:00:00 Completed [facility] SARS-COV-2 COVID-19 MODERNA 12+ YRS VACCINE 2020-11-14 00:00:00 Completed [facility] SARS-COV-2 COVID-19 MODERNA 12+ YRS VACCINE 2020-11-14 00:00:00 Completed [facility] SARS-COV-2 COVID-19 MODERNA 12+ YRS VACCINE 2020-11-14 00:00:00 Completed [facility] SARS-COV-2 COVID-19 MODERNA 12+ YRS VACCINE 2020-11-14 00:00:00 Completed [facility] SARS-COV-2 COVID-19 MODERNA 12+ YRS VACCINE 2020-11-14 00:00:00 Completed [facility] SARS-COV-2 COVID-19 MODERNA 12+ YRS VACCINE 2020-11-14 00:00:00 Completed [facility] SARS-COV-2 COVID-19 MODERNA 12+ YRS VACCINE 2020-11-14 00:00:00 Completed [facility] SARS-COV-2 COVID-19 MODERNA 12+ YRS VACCINE 2020-11-14 00:00:00 Completed [facility] SARS-COV-2 COVID-19 MODERNA 12+ YRS VACCINE 2020-11-14 00:00:00 Completed [facility] SARS-COV-2 COVID-19 MODERNA 12+ YRS VACCINE 2020-11-14 00:00:00 Completed [facility] SARS-COV-2 COVID-19 MODERNA 12+ YRS VACCINE 2020-11-14 00:00:00 Completed [facility] SARS-COV-2 COVID-19 MODERNA 12+ YRS VACCINE 2020-11-14 00:00:00 Completed [facility] SARS-COV-2 COVID-19 MODERNA 12+ YRS VACCINE 2020-11-14 00:00:00 Completed [facility] SARS-COV-2 COVID-19 MODERNA 12+ YRS VACCINE 2020-11-14 00:00:00 Completed [facility] SARS-COV-2 COVID-19 MODERNA 12+ YRS VACCINE 2020-11-14 00:00:00 Completed [facility] SARS-COV-2 COVID-19 MODERNA 12+ YRS VACCINE 2020-11-14 00:00:00 Completed [facility] SARS-COV-2 COVID-19 MODERNA 12+ YRS VACCINE 2020-11-14 00:00:00 Completed [facility] SARS-COV-2 COVID-19 MODERNA 12+ YRS VACCINE 2020-11-14 00:00:00 Completed [facility] SARS-COV-2 COVID-19 MODERNA 12+ YRS VACCINE 2020-11-14 00:00:00 Completed [facility] SARS-COV-2 COVID-19 MODERNA 12+ YRS VACCINE 2020-11-14 00:00:00 Completed [facility] SARS-COV-2 COVID-19 MODERNA 12+ YRS VACCINE 2020-11-14 00:00:00 Completed [facility] SARS-COV-2 COVID-19 MODERNA 12+ YRS VACCINE 2020-11-14 00:00:00 Completed [facility] SARS-COV-2 COVID-19 MODERNA 12+ YRS VACCINE 2020-11-14 00:00:00 Completed [facility] SARS-COV-2 COVID-19 MODERNA 12+ YRS VACCINE 2020-11-14 00:00:00 Completed [facility] SARS-COV-2 COVID-19 MODERNA 12+ YRS VACCINE 2020-11-14 00:00:00 Completed [facility] SARS-COV-2 COVID-19 MODERNA 12+ YRS VACCINE 2020-11-14 00:00:00 Completed [facility] SARS-COV-2 COVID-19 MODERNA 12+ YRS VACCINE 2020-11-14 00:00:00 Completed [facility] SARS-COV-2 COVID-19 MODERNA 12+ YRS VACCINE 2020-11-14 00:00:00 Completed [facility] SARS-COV-2 COVID-19 MODERNA 12+ YRS VACCINE 2020-11-14 00:00:00 Completed [facility] SARS-COV-2 COVID-19 MODERNA VACCINE 2020-10-17 00:00:00 Completed [facility] SARS-COV-2 COVID-19 MODERNA VACCINE 2020-10-17 00:00:00 Completed [facility] SARS-COV-2 COVID-19 MODERNA VACCINE 2020-10-17 00:00:00 Completed [facility] SARS-COV-2 COVID-19 MODERNA VACCINE 2020-10-17 00:00:00 Completed [facility] SARS-COV-2 COVID-19 MODERNA VACCINE 2020-10-17 00:00:00 Completed [facility] SARS-COV-2 COVID-19 MODERNA VACCINE 2020-10-17 00:00:00 Completed [facility] SARS-COV-2 COVID-19 MODERNA VACCINE 2020-10-17 00:00:00 Completed [facility] SARS-COV-2 COVID-19 MODERNA VACCINE 2020-10-17 00:00:00 Completed [facility] SARS-COV-2 COVID-19 MODERNA VACCINE 2020-10-17 00:00:00 Completed [facility] SARS-COV-2 COVID-19 MODERNA VACCINE 2020-10-17 00:00:00 Completed [facility] SARS-COV-2 COVID-19 MODERNA VACCINE 2020-10-17 00:00:00 Completed [facility] SARS-COV-2 COVID-19 MODERNA VACCINE 2020-10-17 00:00:00 Completed [facility] SARS-COV-2 COVID-19 MODERNA 12+ YRS VACCINE 2020-10-17 00:00:00 Completed [facility] SARS-COV-2 COVID-19 MODERNA 12+ YRS VACCINE 2020-10-17 00:00:00 Completed [facility] SARS-COV-2 COVID-19 MODERNA 12+ YRS VACCINE 2020-10-17 00:00:00 Completed [facility] SARS-COV-2 COVID-19 MODERNA 12+ YRS VACCINE 2020-10-17 00:00:00 Completed [facility] SARS-COV-2 COVID-19 MODERNA 12+ YRS VACCINE 2020-10-17 00:00:00 Completed [facility] SARS-COV-2 COVID-19 MODERNA 12+ YRS VACCINE 2020-10-17 00:00:00 Completed [facility] SARS-COV-2 COVID-19 MODERNA 12+ YRS VACCINE 2020-10-17 00:00:00 Completed [facility] SARS-COV-2 COVID-19 MODERNA 12+ YRS VACCINE 2020-10-17 00:00:00 Completed [facility] SARS-COV-2 COVID-19 MODERNA 12+ YRS VACCINE 2020-10-17 00:00:00 Completed [facility] SARS-COV-2 COVID-19 MODERNA 12+ YRS VACCINE 2020-10-17 00:00:00 Completed [facility] SARS-COV-2 COVID-19 MODERNA 12+ YRS VACCINE 2020-10-17 00:00:00 Completed [facility] SARS-COV-2 COVID-19 MODERNA 12+ YRS VACCINE 2020-10-17 00:00:00 Completed [facility] SARS-COV-2 COVID-19 MODERNA 12+ YRS VACCINE 2020-10-17 00:00:00 Completed [facility] SARS-COV-2 COVID-19 MODERNA 12+ YRS VACCINE 2020-10-17 00:00:00 Completed [facility] SARS-COV-2 COVID-19 MODERNA 12+ YRS VACCINE 2020-10-17 00:00:00 Completed [facility] SARS-COV-2 COVID-19 MODERNA 12+ YRS VACCINE 2020-10-17 00:00:00 Completed [facility] SARS-COV-2 COVID-19 MODERNA 12+ YRS VACCINE 2020-10-17 00:00:00 Completed [facility] SARS-COV-2 COVID-19 MODERNA 12+ YRS VACCINE 2020-10-17 00:00:00 Completed [facility] SARS-COV-2 COVID-19 MODERNA 12+ YRS VACCINE 2020-10-17 00:00:00 Completed [facility] SARS-COV-2 COVID-19 MODERNA 12+ YRS VACCINE 2020-10-17 00:00:00 Completed [facility] SARS-COV-2 COVID-19 MODERNA 12+ YRS VACCINE 2020-10-17 00:00:00 Completed [facility] SARS-COV-2 COVID-19 MODERNA 12+ YRS VACCINE 2020-10-17 00:00:00 Completed [facility] SARS-COV-2 COVID-19 MODERNA 12+ YRS VACCINE 2020-10-17 00:00:00 Completed [facility] SARS-COV-2 COVID-19 MODERNA 12+ YRS VACCINE 2020-10-17 00:00:00 Completed [facility] SARS-COV-2 COVID-19 MODERNA 12+ YRS VACCINE 2020-10-17 00:00:00 Completed [facility] SARS-COV-2 COVID-19 MODERNA 12+ YRS VACCINE 2020-10-17 00:00:00 Completed [facility] SARS-COV-2 COVID-19 MODERNA 12+ YRS VACCINE 2020-10-17 00:00:00 Completed [facility] SARS-COV-2 COVID-19 MODERNA 12+ YRS VACCINE 2020-10-17 00:00:00 Completed [facility] SARS-COV-2 COVID-19 MODERNA 12+ YRS VACCINE 2020-10-17 00:00:00 Completed [facility] SARS-COV-2 COVID-19 MODERNA 12+ YRS VACCINE 2020-10-17 00:00:00 Completed [facility] SARS-COV-2 COVID-19 MODERNA 12+ YRS VACCINE 2020-10-17 00:00:00 Completed [facility] SARS-COV-2 COVID-19 MODERNA 12+ YRS VACCINE 2020-10-17 00:00:00 Completed [facility] SARS-COV-2 COVID-19 MODERNA 12+ YRS VACCINE 2020-10-17 00:00:00 Completed [facility] SARS-COV-2 COVID-19 MODERNA 12+ YRS VACCINE 2020-10-17 00:00:00 Completed [facility] SARS-COV-2 COVID-19 MODERNA 12+ YRS VACCINE 2020-10-17 00:00:00 Completed [facility] SARS-COV-2 COVID-19 MODERNA 12+ YRS VACCINE 2020-10-17 00:00:00 Completed [facility] SARS-COV-2 COVID-19 MODERNA 12+ YRS VACCINE 2020-10-17 00:00:00 Completed [facility] SARS-COV-2 COVID-19 MODERNA 12+ YRS VACCINE 2020-10-17 00:00:00 Completed [facility] SARS-COV-2 COVID-19 MODERNA 12+ YRS VACCINE Unknown Completed [facility] SARS-COV-2 COVID-19 MODERNA 12+ YRS VACCINE Unknown Completed [facility] SARS-COV-2 COVID-19 MODERNA 0.25ML BOOSTER VACCINE Unknown Completed [facility] SARS-COV-2 COVID-19 MODERNA 12+ YRS VACCINE Unknown Completed [facility] SARS-COV-2 COVID-19 MODERNA 12+ YRS VACCINE Unknown Completed [facility] SARS-COV-2 COVID-19 MODERNA 0.25ML BOOSTER VACCINE Unknown Completed [facility] SARS-COV-2 COVID-19 MODERNA 12+ YRS VACCINE Unknown Completed [facility] SARS-COV-2 COVID-19 MODERNA 12+ YRS VACCINE Unknown Completed [facility] SARS-COV-2 COVID-19 MODERNA 0.25ML BOOSTER VACCINE Unknown Completed [facility] SARS-COV-2 COVID-19 MODERNA 12+ YRS VACCINE Unknown Completed [facility] SARS-COV-2 COVID-19 MODERNA 12+ YRS VACCINE Unknown Completed [facility] SARS-COV-2 COVID-19 MODERNA 0.25ML BOOSTER VACCINE Unknown Completed [facility] SARS-COV-2 COVID-19 MODERNA 12+ YRS VACCINE Unknown Completed [facility] SARS-COV-2 COVID-19 MODERNA 12+ YRS VACCINE Unknown Completed [facility] SARS-COV-2 COVID-19 MODERNA 0.25ML BOOSTER VACCINE Unknown Completed [facility] SARS-COV-2 COVID-19 MODERNA 12+ YRS VACCINE Unknown Completed [facility] SARS-COV-2 COVID-19 MODERNA 12+ YRS VACCINE Unknown Completed [facility] SARS-COV-2 COVID-19 MODERNA 0.25ML BOOSTER VACCINE Unknown Completed [facility] SARS-COV-2 COVID-19 MODERNA 12+ YRS VACCINE Unknown Completed [facility] SARS-COV-2 COVID-19 MODERNA 12+ YRS VACCINE Unknown Completed [facility] SARS-COV-2 COVID-19 MODERNA 0.25ML BOOSTER VACCINE Unknown Completed [facility] SARS-COV-2 COVID-19 MODERNA 12+ YRS VACCINE Unknown Completed [facility] SARS-COV-2 COVID-19 MODERNA 12+ YRS VACCINE Unknown Completed [facility] SARS-COV-2 COVID-19 MODERNA 0.25ML BOOSTER VACCINE Unknown Completed [facility] SARS-COV-2 COVID-19 MODERNA 12+ YRS VACCINE Unknown Completed [facility] SARS-COV-2 COVID-19 MODERNA 12+ YRS VACCINE Unknown Completed [facility] SARS-COV-2 COVID-19 MODERNA 0.25ML BOOSTER VACCINE Unknown Completed [facility] SARS-COV-2 COVID-19 MODERNA 12+ YRS VACCINE Unknown Completed [facility] SARS-COV-2 COVID-19 MODERNA 12+ YRS VACCINE Unknown Completed [facility] SARS-COV-2 COVID-19 MODERNA 12+ YRS VACCINE Unknown Completed [facility] SARS-COV-2 COVID-19 MODERNA 12+ YRS VACCINE Unknown Completed [facility] SARS-COV-2 COVID-19 MODERNA 12+ YRS VACCINE Unknown Completed [facility] SARS-COV-2 COVID-19 MODERNA 0.25ML BOOSTER VACCINE Unknown Completed [facility] SARS-COV-2 COVID-19 MODERNA 12+ YRS VACCINE Unknown Completed [facility] SARS-COV-2 COVID-19 MODERNA 12+ YRS VACCINE Unknown Completed [facility] SARS-COV-2 COVID-19 MODERNA 0.25ML BOOSTER VACCINE Unknown Completed [facility] SARS-COV-2 COVID-19 MODERNA 12+ YRS VACCINE Unknown Completed [facility] SARS-COV-2 COVID-19 MODERNA 12+ YRS VACCINE Unknown Completed [facility] SARS-COV-2 COVID-19 MODERNA 0.25ML BOOSTER VACCINE Unknown Completed [facility] SARS-COV-2 COVID-19 MODERNA 12+ YRS VACCINE Unknown Completed [facility] SARS-COV-2 COVID-19 MODERNA 12+ YRS VACCINE Unknown Completed [facility] SARS-COV-2 COVID-19 MODERNA 0.25ML BOOSTER VACCINE Unknown Completed [facility] SARS-COV-2 COVID-19 MODERNA 12+ YRS VACCINE Unknown Completed [facility] SARS-COV-2 COVID-19 MODERNA 12+ YRS VACCINE Unknown Completed [facility] SARS-COV-2 COVID-19 MODERNA 0.25ML BOOSTER VACCINE Unknown Completed [facility] SARS-COV-2 COVID-19 MODERNA 12+ YRS VACCINE Unknown Completed [facility] SARS-COV-2 COVID-19 MODERNA 12+ YRS VACCINE Unknown Completed [facility] SARS-COV-2 COVID-19 MODERNA 0.25ML BOOSTER VACCINE Unknown Completed [facility] SARS-COV-2 COVID-19 MODERNA 12+ YRS VACCINE Unknown Completed [facility] SARS-COV-2 COVID-19 MODERNA 12+ YRS VACCINE Unknown Completed [facility] SARS-COV-2 COVID-19 MODERNA 0.25ML BOOSTER VACCINE Unknown Completed [facility] SARS-COV-2 COVID-19 MODERNA 12+ YRS VACCINE Unknown Completed [facility] SARS-COV-2 COVID-19 MODERNA 12+ YRS VACCINE Unknown Completed [facility] SARS-COV-2 COVID-19 MODERNA 0.25ML BOOSTER VACCINE Unknown Completed [facility] SARS-COV-2 COVID-19 MODERNA 12+ YRS VACCINE Unknown Completed [facility] SARS-COV-2 COVID-19 MODERNA 12+ YRS VACCINE Unknown Completed [facility] SARS-COV-2 COVID-19 MODERNA 0.25ML BOOSTER VACCINE Unknown Completed [facility] SARS-COV-2 COVID-19 MODERNA 12+ YRS VACCINE Unknown Completed [facility] SARS-COV-2 COVID-19 MODERNA 12+ YRS VACCINE Unknown Completed [facility] SARS-COV-2 COVID-19 MODERNA 0.25ML BOOSTER VACCINE Unknown Completed [facility] SARS-COV-2 COVID-19 MODERNA 12+ YRS VACCINE Unknown Completed [facility] SARS-COV-2 COVID-19 MODERNA 12+ YRS VACCINE Unknown Completed [facility] SARS-COV-2 COVID-19 MODERNA 0.25ML BOOSTER VACCINE Unknown Completed [facility] SARS-COV-2 COVID-19 MODERNA 12+ YRS VACCINE Unknown Completed [facility] SARS-COV-2 COVID-19 MODERNA 12+ YRS VACCINE Unknown Completed [facility] SARS-COV-2 COVID-19 MODERNA 0.25ML BOOSTER VACCINE Unknown Completed [facility] SARS-COV-2 COVID-19 MODERNA 12+ YRS VACCINE Unknown Completed [facility] SARS-COV-2 COVID-19 MODERNA 12+ YRS VACCINE Unknown Completed [facility] SARS-COV-2 COVID-19 MODERNA 0.25ML BOOSTER VACCINE Unknown Completed [facility] SARS-COV-2 COVID-19 MODERNA 12+ YRS VACCINE Unknown Completed [facility] SARS-COV-2 COVID-19 MODERNA 12+ YRS VACCINE Unknown Completed [facility] SARS-COV-2 COVID-19 MODERNA 0.25ML BOOSTER VACCINE Unknown Completed [facility] SARS-COV-2 COVID-19 MODERNA 12+ YRS VACCINE Unknown Completed [facility] SARS-COV-2 COVID-19 MODERNA 12+ YRS VACCINE Unknown Completed [facility] SARS-COV-2 COVID-19 MODERNA 0.25ML BOOSTER VACCINE Unknown Completed [facility] SARS-COV-2 COVID-19 MODERNA 12+ YRS VACCINE Unknown Completed [facility] SARS-COV-2 COVID-19 MODERNA 12+ YRS VACCINE Unknown Completed [facility] SARS-COV-2 COVID-19 MODERNA 0.25ML BOOSTER VACCINE Unknown Completed [facility] SARS-COV-2 COVID-19 MODERNA 12+ YRS VACCINE Unknown Completed [facility] SARS-COV-2 COVID-19 MODERNA 12+ YRS VACCINE Unknown Completed [facility] SARS-COV-2 COVID-19 MODERNA 0.25ML BOOSTER VACCINE Unknown Completed [facility] SARS-COV-2 COVID-19 MODERNA 12+ YRS VACCINE Unknown Completed [facility] SARS-COV-2 COVID-19 MODERNA 12+ YRS VACCINE Unknown Completed [facility] SARS-COV-2 COVID-19 MODERNA 0.25ML BOOSTER VACCINE Unknown Completed [facility] SARS-COV-2 COVID-19 MODERNA 12+ YRS VACCINE Unknown Completed [facility] SARS-COV-2 COVID-19 MODERNA 12+ YRS VACCINE Unknown Completed [facility] SARS-COV-2 COVID-19 MODERNA 0.25ML BOOSTER VACCINE Unknown Completed [facility] SARS-COV-2 COVID-19 MODERNA 12+ YRS VACCINE Unknown Completed [facility] SARS-COV-2 COVID-19 MODERNA 12+ YRS VACCINE Unknown Completed [facility] SARS-COV-2 COVID-19 MODERNA 0.25ML BOOSTER VACCINE Unknown Completed [facility] SARS-COV-2 COVID-19 MODERNA 12+ YRS VACCINE Unknown Completed [facility] SARS-COV-2 COVID-19 MODERNA 12+ YRS VACCINE Unknown Completed [facility] SARS-COV-2 COVID-19 MODERNA 0.25ML BOOSTER VACCINE Unknown Completed [facility] SARS-COV-2 COVID-19 MODERNA 12+ YRS VACCINE Unknown Completed [facility] SARS-COV-2 COVID-19 MODERNA 12+ YRS VACCINE Unknown Completed [facility] SARS-COV-2 COVID-19 MODERNA 0.25ML BOOSTER VACCINE Unknown Completed [facility] SARS-COV-2 COVID-19 MODERNA 12+ YRS VACCINE Unknown Completed [facility] SARS-COV-2 COVID-19 MODERNA 12+ YRS VACCINE Unknown Completed [facility] SARS-COV-2 COVID-19 MODERNA 0.25ML BOOSTER VACCINE Unknown Completed [facility] SARS-COV-2 COVID-19 MODERNA 12+ YRS VACCINE Unknown Completed [facility] SARS-COV-2 COVID-19 MODERNA 12+ YRS VACCINE Unknown Completed [facility] SARS-COV-2 COVID-19 MODERNA 0.25ML BOOSTER VACCINE Unknown Completed [facility] SARS-COV-2 COVID-19 MODERNA 12+ YRS VACCINE Unknown Completed [facility] SARS-COV-2 COVID-19 MODERNA 12+ YRS VACCINE Unknown Completed [facility] SARS-COV-2 COVID-19 MODERNA 0.25ML BOOSTER VACCINE Unknown Completed [facility] SARS-COV-2 COVID-19 MODERNA 12+ YRS VACCINE Unknown Completed [facility] SARS-COV-2 COVID-19 MODERNA 12+ YRS VACCINE Unknown Completed [facility] SARS-COV-2 COVID-19 MODERNA 0.25ML BOOSTER VACCINE Unknown Completed [facility] SARS-COV-2 COVID-19 MODERNA 12+ YRS VACCINE Unknown Completed [facility] SARS-COV-2 COVID-19 MODERNA 12+ YRS VACCINE Unknown Completed [facility] SARS-COV-2 COVID-19 MODERNA 0.25ML BOOSTER VACCINE Unknown Completed [facility] SARS-COV-2 COVID-19 MODERNA 12+ YRS VACCINE Unknown Completed [facility] SARS-COV-2 COVID-19 MODERNA 12+ YRS VACCINE Unknown Completed [facility] SARS-COV-2 COVID-19 MODERNA 0.25ML BOOSTER VACCINE Unknown Completed [facility] SARS-COV-2 COVID-19 MODERNA 12+ YRS VACCINE Unknown Completed [facility] SARS-COV-2 COVID-19 MODERNA 12+ YRS VACCINE Unknown Completed [facility] SARS-COV-2 COVID-19 MODERNA 0.25ML BOOSTER VACCINE Unknown Completed [facility] SARS-COV-2 COVID-19 MODERNA 12+ YRS VACCINE Unknown Completed [facility] SARS-COV-2 COVID-19 MODERNA 12+ YRS VACCINE Unknown Completed [facility] SARS-COV-2 COVID-19 MODERNA 0.25ML BOOSTER VACCINE Unknown Completed [facility] SARS-COV-2 COVID-19 MODERNA 12+ YRS VACCINE Unknown Completed [facility] SARS-COV-2 COVID-19 MODERNA 12+ YRS VACCINE Unknown Completed [facility] SARS-COV-2 COVID-19 MODERNA 0.25ML BOOSTER VACCINE Unknown Completed [facility] SARS-COV-2 COVID-19 MODERNA 12+ YRS VACCINE Unknown Completed [facility] SARS-COV-2 COVID-19 MODERNA 12+ YRS VACCINE Unknown Completed [facility] SARS-COV-2 COVID-19 MODERNA 0.25ML BOOSTER VACCINE Unknown Completed [facility] SARS-COV-2 COVID-19 MODERNA 12+ YRS VACCINE Unknown Completed [facility] SARS-COV-2 COVID-19 MODERNA 12+ YRS VACCINE Unknown Completed [facility] SARS-COV-2 COVID-19 MODERNA 0.25ML BOOSTER VACCINE Unknown Completed [facility] SARS-COV-2 COVID-19 MODERNA 12+ YRS VACCINE Unknown Completed [facility] SARS-COV-2 COVID-19 MODERNA 12+ YRS VACCINE Unknown Completed [facility] SARS-COV-2 COVID-19 MODERNA 0.25ML BOOSTER VACCINE Unknown Completed [facility] SARS-COV-2 COVID-19 MODERNA 12+ YRS VACCINE Unknown Completed [facility] SARS-COV-2 COVID-19 MODERNA 12+ YRS VACCINE Unknown Completed [facility] SARS-COV-2 COVID-19 MODERNA 0.25ML BOOSTER VACCINE Unknown Completed [facility] SARS-COV-2 COVID-19 MODERNA 12+ YRS VACCINE Unknown Completed [facility] SARS-COV-2 COVID-19 MODERNA 12+ YRS VACCINE Unknown Completed [facility] SARS-COV-2 COVID-19 MODERNA 0.25ML BOOSTER VACCINE Unknown Completed [facility] SARS-COV-2 COVID-19 MODERNA 12+ YRS VACCINE Unknown Completed [facility] SARS-COV-2 COVID-19 MODERNA 12+ YRS VACCINE Unknown Completed [facility] SARS-COV-2 COVID-19 MODERNA 0.25ML BOOSTER VACCINE Unknown Completed [facility] SARS-COV-2 COVID-19 MODERNA 12+ YRS VACCINE Unknown Completed [facility] SARS-COV-2 COVID-19 MODERNA 12+ YRS VACCINE Unknown Completed [facility] SARS-COV-2 COVID-19 MODERNA 0.25ML BOOSTER VACCINE Unknown Completed [facility] SARS-COV-2 COVID-19 MODERNA 12+ YRS VACCINE Unknown Completed [facility] SARS-COV-2 COVID-19 MODERNA 12+ YRS VACCINE Unknown Completed [facility] SARS-COV-2 COVID-19 MODERNA 0.25ML BOOSTER VACCINE Unknown Completed [facility] SARS-COV-2 COVID-19 MODERNA 12+ YRS VACCINE Unknown Completed [facility] SARS-COV-2 COVID-19 MODERNA 12+ YRS VACCINE Unknown Completed [facility] SARS-COV-2 COVID-19 MODERNA 0.25ML BOOSTER VACCINE Unknown Completed [facility] SARS-COV-2 COVID-19 MODERNA 12+ YRS VACCINE Unknown Completed [facility] SARS-COV-2 COVID-19 MODERNA 12+ YRS VACCINE Unknown Completed [facility] SARS-COV-2 COVID-19 MODERNA 0.25ML BOOSTER VACCINE Unknown Completed [facility] SARS-COV-2 COVID-19 MODERNA 12+ YRS VACCINE Unknown Completed [facility] SARS-COV-2 COVID-19 MODERNA 12+ YRS VACCINE Unknown Completed [facility] SARS-COV-2 COVID-19 MODERNA 0.25ML BOOSTER VACCINE Unknown Completed [facility] SARS-COV-2 COVID-19 MODERNA 12+ YRS VACCINE Unknown Completed [facility] SARS-COV-2 COVID-19 MODERNA 12+ YRS VACCINE Unknown Completed [facility] SARS-COV-2 COVID-19 MODERNA 0.25ML BOOSTER VACCINE Unknown Completed [facility] SARS-COV-2 COVID-19 MODERNA 12+ YRS VACCINE Unknown Completed [facility] SARS-COV-2 COVID-19 MODERNA 12+ YRS VACCINE Unknown Completed [facility] SARS-COV-2 COVID-19 MODERNA 0.25ML BOOSTER VACCINE Unknown Completed [facility] SARS-COV-2 COVID-19 MODERNA 12+ YRS VACCINE Unknown Completed [facility] SARS-COV-2 COVID-19 MODERNA 12+ YRS VACCINE Unknown Completed [facility] SARS-COV-2 COVID-19 MODERNA 0.25ML BOOSTER VACCINE Unknown Completed [facility] SARS-COV-2 COVID-19 MODERNA 12+ YRS VACCINE Unknown Completed [facility] SARS-COV-2 COVID-19 MODERNA 12+ YRS VACCINE Unknown Completed [facility] SARS-COV-2 COVID-19 MODERNA 0.25ML BOOSTER VACCINE Unknown Completed [facility] SARS-COV-2 COVID-19 MODERNA 12+ YRS VACCINE Unknown Completed [facility] SARS-COV-2 COVID-19 MODERNA 12+ YRS VACCINE Unknown Completed [facility] SARS-COV-2 COVID-19 MODERNA 0.25ML BOOSTER VACCINE Unknown Completed [facility] SARS-COV-2 COVID-19 MODERNA 12+ YRS VACCINE Unknown Completed [facility] SARS-COV-2 COVID-19 MODERNA 12+ YRS VACCINE Unknown Completed [facility] SARS-COV-2 COVID-19 MODERNA 0.25ML BOOSTER VACCINE Unknown Completed [facility] SARS-COV-2 COVID-19 MODERNA 12+ YRS VACCINE Unknown Completed [facility] SARS-COV-2 COVID-19 MODERNA 12+ YRS VACCINE Unknown Completed [facility] SARS-COV-2 COVID-19 MODERNA 0.25ML BOOSTER VACCINE Unknown Completed [facility] SARS-COV-2 COVID-19 MODERNA 12+ YRS VACCINE Unknown Completed [facility] SARS-COV-2 COVID-19 MODERNA 12+ YRS VACCINE Unknown Completed [facility] SARS-COV-2 COVID-19 MODERNA 0.25ML BOOSTER VACCINE Unknown Completed [facility] SARS-COV-2 COVID-19 MODERNA 12+ YRS VACCINE Unknown Completed [facility] SARS-COV-2 COVID-19 MODERNA 12+ YRS VACCINE Unknown Completed [facility] SARS-COV-2 COVID-19 MODERNA 0.25ML BOOSTER VACCINE Unknown Completed [facility] SARS-COV-2 COVID-19 MODERNA 12+ YRS VACCINE Unknown Completed [facility] SARS-COV-2 COVID-19 MODERNA 12+ YRS VACCINE Unknown Completed [facility] SARS-COV-2 COVID-19 MODERNA 0.25ML BOOSTER VACCINE Unknown Completed [facility] SARS-COV-2 COVID-19 MODERNA 12+ YRS VACCINE Unknown Completed [facility] SARS-COV-2 COVID-19 MODERNA 12+ YRS VACCINE Unknown Completed [facility] SARS-COV-2 COVID-19 MODERNA 0.25ML BOOSTER VACCINE Unknown Completed [facility] SARS-COV-2 COVID-19 MODERNA 12+ YRS VACCINE Unknown Completed [facility] SARS-COV-2 COVID-19 MODERNA 12+ YRS VACCINE Unknown Completed [facility] SARS-COV-2 COVID-19 MODERNA 0.25ML BOOSTER VACCINE Unknown Completed [facility] SARS-COV-2 COVID-19 MODERNA 12+ YRS VACCINE Unknown Completed [facility] SARS-COV-2 COVID-19 MODERNA 12+ YRS VACCINE Unknown Completed [facility] SARS-COV-2 COVID-19 MODERNA 0.25ML BOOSTER VACCINE Unknown Completed [facility] SARS-COV-2 COVID-19 MODERNA 12+ YRS VACCINE Unknown Completed [facility] SARS-COV-2 COVID-19 MODERNA 12+ YRS VACCINE Unknown Completed [facility] SARS-COV-2 COVID-19 MODERNA 0.25ML BOOSTER VACCINE Unknown Completed [facility] SARS-COV-2 COVID-19 MODERNA 12+ YRS VACCINE Unknown Completed [facility] SARS-COV-2 COVID-19 MODERNA 12+ YRS VACCINE Unknown Completed [facility] SARS-COV-2 COVID-19 MODERNA 0.25ML BOOSTER VACCINE Unknown Completed [facility] SARS-COV-2 COVID-19 MODERNA 12+ YRS VACCINE Unknown Completed [facility] SARS-COV-2 COVID-19 MODERNA 12+ YRS VACCINE Unknown Completed [facility] SARS-COV-2 COVID-19 MODERNA 0.25ML BOOSTER VACCINE Unknown Completed [facility] SARS-COV-2 COVID-19 MODERNA 12+ YRS VACCINE Unknown Completed [facility] SARS-COV-2 COVID-19 MODERNA 12+ YRS VACCINE Unknown Completed [facility] SARS-COV-2 COVID-19 MODERNA 0.25ML BOOSTER VACCINE Unknown Completed [facility] SARS-COV-2 COVID-19 MODERNA 12+ YRS VACCINE Unknown Completed [facility] SARS-COV-2 COVID-19 MODERNA 12+ YRS VACCINE Unknown Completed [facility] SARS-COV-2 COVID-19 MODERNA 0.25ML BOOSTER VACCINE Unknown Completed [facility] SARS-COV-2 COVID-19 MODERNA 12+ YRS VACCINE Unknown Completed [facility] SARS-COV-2 COVID-19 MODERNA 12+ YRS VACCINE Unknown Completed [facility] SARS-COV-2 COVID-19 MODERNA 0.25ML BOOSTER VACCINE Unknown Completed [facility] SARS-COV-2 COVID-19 MODERNA 12+ YRS VACCINE Unknown Completed [facility] SARS-COV-2 COVID-19 MODERNA 12+ YRS VACCINE Unknown Completed [facility] SARS-COV-2 COVID-19 MODERNA 0.25ML BOOSTER VACCINE Unknown Completed [facility] SARS-COV-2 COVID-19 MODERNA 12+ YRS VACCINE Unknown Completed [facility] SARS-COV-2 COVID-19 MODERNA 12+ YRS VACCINE Unknown Completed [facility] SARS-COV-2 COVID-19 MODERNA 0.25ML BOOSTER VACCINE Unknown Completed [facility] SARS-COV-2 COVID 19 ALLY SUCROSE VACCINE 12+, [id number], 0.3 ML (30 MCG), IM PFIZER (TRAN TOP) Unknown Completed [facility] SARS-COV-2 COVID-19 MODERNA 12+ YRS VACCINE Unknown Completed [facility] SARS-COV-2 COVID-19 MODERNA 12+ YRS VACCINE Unknown Completed [facility] SARS-COV-2 COVID-19 MODERNA 0.25ML BOOSTER VACCINE Unknown Completed [facility] SARS-COV-2 COVID 19 ALLY SUCROSE VACCINE 12+, [id number], 0.3 ML (30 MCG), IM PFIZER (TRAN TOP) Unknown Completed [facility] SARS-COV-2 COVID-19 MODERNA 12+ YRS VACCINE Unknown Completed [facility] SARS-COV-2 COVID-19 MODERNA 12+ YRS VACCINE Unknown Completed [facility] SARS-COV-2 COVID-19 MODERNA 0.25ML BOOSTER VACCINE Unknown Completed [facility] SARS-COV-2 COVID 19 ALLY SUCROSE VACCINE , [id number], 0.3 ML (30 MCG), IM PFIZER (TRAN TOP) Unknown Completed [facility] SARS-COV-2 COVID-19 MODERNA 12+ YRS VACCINE Unknown Completed [facility] SARS-COV-2 COVID-19 MODERNA 12+ YRS VACCINE Unknown Completed [facility] SARS-COV-2 COVID-19 MODERNA 0.25ML BOOSTER VACCINE Unknown Completed [facility] SARS-COV-2 COVID 19 ALLY SUCROSE VACCINE 12, [id number], 0.3 ML (30 MCG), IM PFIZER (TRAN TOP) Unknown Completed [facility] SARS-COV-2 COVID-19 MODERNA 12+ YRS VACCINE Unknown Completed [facility] SARS-COV-2 COVID-19 MODERNA 12+ YRS VACCINE Unknown Completed [facility] SARS-COV-2 COVID-19 MODERNA 0.25ML BOOSTER VACCINE Unknown Completed [facility] SARS-COV-2 COVID 19 ALLY SUCROSE VACCINE 12+, , 0.3 ML (30 MCG), IM PFIZER (TRAN TOP) Unknown Completed [facility] SARS-COV-2 COVID-19 MODERNA 12+ YRS VACCINE Unknown Completed [facility] SARS-COV-2 COVID-19 MODERNA 12+ YRS VACCINE Unknown Completed [facility] SARS-COV-2 COVID-19 MODERNA 0.25ML BOOSTER VACCINE Unknown Completed [facility] SARS-COV-2 COVID 19 ALLY SUCROSE VACCINE 12+, , 0.3 ML (30 MCG), IM PFIZER (TRAN TOP) Unknown Completed [facility] SARS-COV-2 COVID-19 MODERNA 12+ YRS VACCINE Unknown Completed [facility] SARS-COV-2 COVID-19 MODERNA 12+ YRS VACCINE Unknown Completed [facility] SARS-COV-2 COVID-19 MODERNA 0.25ML BOOSTER VACCINE Unknown Completed [facility] SARS-COV-2 COVID 19 ALLY SUCROSE VACCINE 12, , 0.3 ML (30 MCG), IM PFIZER (TRAN TOP) Unknown Completed [facility] SARS-COV-2 COVID-19 MODERNA 12+ YRS VACCINE Unknown Completed [facility] SARS-COV-2 COVID-19 MODERNA 12+ YRS VACCINE Unknown Completed [facility] SARS-COV-2 COVID-19 MODERNA 0.25ML BOOSTER VACCINE Unknown Completed [facility] SARS-COV-2 COVID 19 ALLY SUCROSE VACCINE 12+, , 0.3 ML (30 MCG), IM PFIZER (TRAN TOP) Unknown Completed [facility] SARS-COV-2 COVID-19 MODERNA 12+ YRS VACCINE Unknown Completed [facility] SARS-COV-2 COVID-19 MODERNA 12+ YRS VACCINE Unknown Completed [facility] SARS-COV-2 COVID-19 MODERNA 0.25ML BOOSTER VACCINE Unknown Completed [facility] SARS-COV-2 COVID 19 ALLY SUCROSE VACCINE 12+, , 0.3 ML (30 MCG), IM PFIZER (TRAN TOP) Unknown Completed [facility] SARS-COV-2 COVID-19 MODERNA 12+ YRS VACCINE Unknown Completed [facility] SARS-COV-2 COVID-19 MODERNA 12+ YRS VACCINE Unknown Completed [facility] SARS-COV-2 COVID-19 MODERNA 0.25ML BOOSTER VACCINE Unknown Completed [facility] SARS-COV-2 COVID 19 ALLY SUCROSE VACCINE 12+, , 0.3 ML (30 MCG), IM PFIZER (TRAN TOP) Unknown Completed [facility] SARS-COV-2 COVID-19 MODERNA 12+ YRS VACCINE Unknown Completed [facility] SARS-COV-2 COVID-19 MODERNA 12+ YRS VACCINE Unknown Completed [facility] SARS-COV-2 COVID-19 MODERNA 0.25ML BOOSTER VACCINE Unknown Completed [facility] SARS-COV-2 COVID 19 ALLY SUCROSE VACCINE 12+, , 0.3 ML (30 MCG), IM PFIZER (TRAN TOP) Unknown Completed [facility] SARS-COV-2 COVID-19 MODERNA 12+ YRS VACCINE Unknown Completed [facility] SARS-COV-2 COVID-19 MODERNA 12+ YRS VACCINE Unknown Completed [facility] SARS-COV-2 COVID-19 MODERNA 0.25ML BOOSTER VACCINE Unknown Completed [facility] SARS-COV-2 COVID 19 ALLY SUCROSE VACCINE 12+, , 0.3 ML (30 MCG), IM PFIZER (TRAN TOP) Unknown Completed [facility] SARS-COV-2 COVID-19 MODERNA 12+ YRS VACCINE Unknown Completed [facility] SARS-COV-2 COVID-19 MODERNA 12+ YRS VACCINE Unknown Completed [facility] SARS-COV-2 COVID-19 MODERNA 0.25ML BOOSTER VACCINE Unknown Completed [facility] SARS-COV-2 COVID 19 ALLY SUCROSE VACCINE 12+, [id number], 0.3 ML (30 MCG), IM PFIZER (TRAN TOP) Unknown Completed [facility] SARS-COV-2 COVID-19 MODERNA 12+ YRS VACCINE Unknown Completed [facility] SARS-COV-2 COVID-19 MODERNA 12+ YRS VACCINE Unknown Completed [facility] SARS-COV-2 COVID-19 MODERNA 0.25ML BOOSTER VACCINE Unknown Completed [facility] SARS-COV-2 COVID 19 ALLY SUCROSE VACCINE 12+, , 0.3 ML (30 MCG), IM PFIZER (TRAN TOP) Unknown Completed [facility] SARS-COV-2 COVID-19 MODERNA 12+ YRS VACCINE Unknown Completed [facility] SARS-COV-2 COVID-19 MODERNA 12+ YRS VACCINE Unknown Completed [facility] SARS-COV-2 COVID-19 MODERNA 0.25ML BOOSTER VACCINE Unknown Completed [facility] SARS-COV-2 COVID 19 ALLY SUCROSE VACCINE 12+, , 0.3 ML (30 MCG), IM PFIZER (TRAN TOP) Unknown Completed [facility] SARS-COV-2 COVID-19 MODERNA 12+ YRS VACCINE Unknown Completed [facility] SARS-COV-2 COVID-19 MODERNA 12+ YRS VACCINE Unknown Completed [facility] SARS-COV-2 COVID-19 MODERNA 0.25ML BOOSTER VACCINE Unknown Completed [facility] SARS-COV-2 COVID 19 ALLY SUCROSE VACCINE 12, , 0.3 ML (30 MCG), IM PFIZER (TRAN TOP) Unknown Completed [facility] SARS-COV-2 COVID-19 MODERNA 12+ YRS VACCINE Unknown Completed [facility] SARS-COV-2 COVID-19 MODERNA 12+ YRS VACCINE Unknown Completed [facility] SARS-COV-2 COVID-19 MODERNA 0.25ML BOOSTER VACCINE Unknown Completed [facility] SARS-COV-2 COVID 19 ALLY SUCROSE VACCINE 12+, , 0.3 ML (30 MCG), IM PFIZER (TRAN TOP) Unknown Completed [facility] SARS-COV-2 COVID-19 MODERNA 12+ YRS VACCINE Unknown Completed [facility] SARS-COV-2 COVID-19 MODERNA 12+ YRS VACCINE Unknown Completed [facility] SARS-COV-2 COVID-19 MODERNA 0.25ML BOOSTER VACCINE Unknown Completed [facility] SARS-COV-2 COVID 19 ALLY SUCROSE VACCINE 12+, [id number], 0.3 ML (30 MCG), IM PFIZER (TRAN TOP) Unknown Completed [facility] SARS-COV-2 COVID-19 MODERNA 12+ YRS VACCINE Unknown Completed [facility] SARS-COV-2 COVID-19 MODERNA 12+ YRS VACCINE Unknown Completed [facility] SARS-COV-2 COVID-19 MODERNA 0.25ML BOOSTER VACCINE Unknown Completed [facility] SARS-COV-2 COVID 19 ALLY SUCROSE VACCINE 12+, , 0.3 ML (30 MCG), IM PFIZER (TRAN TOP) Unknown Completed [facility] SARS-COV-2 COVID-19 MODERNA 12+ YRS VACCINE Unknown Completed [facility] SARS-COV-2 COVID-19 MODERNA 12+ YRS VACCINE Unknown Completed [facility] SARS-COV-2 COVID-19 MODERNA 0.25ML BOOSTER VACCINE Unknown Completed [facility] SARS-COV-2 COVID 19 ALLY SUCROSE VACCINE 12+, , 0.3 ML (30 MCG), IM PFIZER (TRAN TOP) Unknown Completed [facility] SARS-COV-2 COVID-19 MODERNA 12+ YRS VACCINE Unknown Completed [facility] SARS-COV-2 COVID-19 MODERNA 12+ YRS VACCINE Unknown Completed [facility] SARS-COV-2 COVID-19 MODERNA 0.25ML BOOSTER VACCINE Unknown Completed [facility] SARS-COV-2 COVID 19 ALLY SUCROSE VACCINE 12, , 0.3 ML (30 MCG), IM PFIZER (TRAN TOP) Unknown Completed [facility] SARS-COV-2 COVID-19 MODERNA 12+ YRS VACCINE Unknown Completed [facility] SARS-COV-2 COVID-19 MODERNA 12+ YRS VACCINE Unknown Completed [facility] SARS-COV-2 COVID-19 MODERNA 0.25ML BOOSTER VACCINE Unknown Completed [facility] SARS-COV-2 COVID 19 ALLY SUCROSE VACCINE 12, , 0.3 ML (30 MCG), IM PFIZER (TRAN TOP) Unknown Completed [facility] SARS-COV-2 COVID-19 MODERNA 12+ YRS VACCINE Unknown Completed [facility] SARS-COV-2 COVID-19 MODERNA 12+ YRS VACCINE Unknown Completed [facility] SARS-COV-2 COVID-19 MODERNA 0.25ML BOOSTER VACCINE Unknown Completed [facility] SARS-COV-2 COVID 19 ALLY SUCROSE VACCINE 12+, , 0.3 ML (30 MCG), IM PFIZER (TRAN TOP) Unknown Completed [facility] SARS-COV-2 COVID-19 MODERNA 12+ YRS VACCINE Unknown Completed [facility] SARS-COV-2 COVID-19 MODERNA 12+ YRS VACCINE Unknown Completed [facility] SARS-COV-2 COVID-19 MODERNA 0.25ML BOOSTER VACCINE Unknown Completed [facility] SARS-COV-2 COVID 19 ALLY SUCROSE VACCINE 12+, , 0.3 ML (30 MCG), IM PFIZER (TRAN TOP) Unknown Completed [facility] SARS-COV-2 COVID-19 MODERNA 12+ YRS VACCINE Unknown Completed [facility] SARS-COV-2 COVID-19 MODERNA 12+ YRS VACCINE Unknown Completed [facility] SARS-COV-2 COVID-19 MODERNA 0.25ML BOOSTER VACCINE Unknown Completed [facility] SARS-COV-2 COVID 19 ALLY SUCROSE VACCINE 12+, , 0.3 ML (30 MCG), IM PFIZER (TRAN TOP) Unknown Completed [facility] SARS-COV-2 COVID-19 MODERNA 12+ YRS VACCINE Unknown Completed [facility] SARS-COV-2 COVID-19 MODERNA 12+ YRS VACCINE Unknown Completed [facility] SARS-COV-2 COVID-19 MODERNA 0.25ML BOOSTER VACCINE Unknown Completed [facility] SARS-COV-2 COVID 19 ALLY SUCROSE VACCINE 12+, , 0.3 ML (30 MCG), IM PFIZER (TRAN TOP) Unknown Completed [facility] SARS-COV-2 COVID-19 MODERNA 12+ YRS VACCINE Unknown Completed [facility] SARS-COV-2 COVID-19 MODERNA 12+ YRS VACCINE Unknown Completed [facility] SARS-COV-2 COVID-19 MODERNA 0.25ML BOOSTER VACCINE Unknown Completed [facility] SARS-COV-2 COVID 19 ALLY SUCROSE VACCINE 12+, [id number], 0.3 ML (30 MCG), IM PFIZER (TRAN TOP) Unknown Completed [facility] SARS-COV-2 COVID-19 MODERNA 12+ YRS VACCINE Unknown Completed [facility] SARS-COV-2 COVID-19 MODERNA 12+ YRS VACCINE Unknown Completed [facility] SARS-COV-2 COVID-19 MODERNA 0.25ML BOOSTER VACCINE Unknown Completed [facility] SARS-COV-2 COVID 19 ALLY SUCROSE VACCINE 12+, , 0.3 ML (30 MCG), IM PFIZER (TRAN TOP) Unknown Completed [facility] SARS-COV-2 COVID-19 MODERNA 12+ YRS VACCINE Unknown Completed [facility] SARS-COV-2 COVID-19 MODERNA 12+ YRS VACCINE Unknown Completed [facility] SARS-COV-2 COVID-19 MODERNA 0.25ML BOOSTER VACCINE Unknown Completed [facility] SARS-COV-2 COVID 19 ALLY SUCROSE VACCINE 12+, , 0.3 ML (30 MCG), IM PFIZER (TRAN TOP) Unknown Completed [facility] SARS-COV-2 COVID-19 MODERNA 12+ YRS VACCINE Unknown Completed [facility] SARS-COV-2 COVID-19 MODERNA 12+ YRS VACCINE Unknown Completed [facility] SARS-COV-2 COVID-19 MODERNA 0.25ML BOOSTER VACCINE Unknown Completed [facility] SARS-COV-2 COVID 19 ALLY SUCROSE VACCINE 12+, , 0.3 ML (30 MCG), IM PFIZER (TRAN TOP) Unknown Completed [facility] SARS-COV-2 COVID-19 MODERNA 12+ YRS VACCINE Unknown Completed [facility] SARS-COV-2 COVID-19 MODERNA 12+ YRS VACCINE Unknown Completed [facility] SARS-COV-2 COVID-19 MODERNA 0.25ML BOOSTER VACCINE Unknown Completed [facility] SARS-COV-2 COVID 19 ALLY SUCROSE VACCINE 12+, , 0.3 ML (30 MCG), IM PFIZER (TRAN TOP) Unknown Completed [facility] SARS-COV-2 COVID-19 MODERNA 12+ YRS VACCINE Unknown Completed [facility] SARS-COV-2 COVID-19 MODERNA 12+ YRS VACCINE Unknown Completed [facility] SARS-COV-2 COVID-19 MODERNA 0.25ML BOOSTER VACCINE Unknown Completed [facility] SARS-COV-2 COVID 19 ALLY SUCROSE VACCINE 12+, , 0.3 ML (30 MCG), IM PFIZER (TRAN TOP) Unknown Completed [facility] SARS-COV-2 COVID-19 MODERNA 12+ YRS VACCINE Unknown Completed [facility] SARS-COV-2 COVID-19 MODERNA 12+ YRS VACCINE Unknown Completed [facility] SARS-COV-2 COVID-19 MODERNA 0.25ML BOOSTER VACCINE Unknown Completed [facility] SARS-COV-2 COVID 19 ALLY SUCROSE VACCINE 12+, , 0.3 ML (30 MCG), IM PFIZER (TRAN TOP) Unknown Completed [facility] SARS-COV-2 COVID-19 MODERNA 12+ YRS VACCINE Unknown Completed [facility] SARS-COV-2 COVID-19 MODERNA 12+ YRS VACCINE Unknown Completed [facility] SARS-COV-2 COVID-19 MODERNA 0.25ML BOOSTER VACCINE Unknown Completed [facility] SARS-COV-2 COVID 19 ALLY SUCROSE VACCINE 12+, , 0.3 ML (30 MCG), IM PFIZER (TRAN TOP) Unknown Completed [facility] SARS-COV-2 COVID-19 MODERNA 12+ YRS VACCINE Unknown Completed [facility] SARS-COV-2 COVID-19 MODERNA 12+ YRS VACCINE Unknown Completed [facility] SARS-COV-2 COVID-19 MODERNA 0.25ML BOOSTER VACCINE Unknown Completed [facility] SARS-COV-2 COVID 19 ALLY SUCROSE VACCINE 12+, , 0.3 ML (30 MCG), IM PFIZER (TRAN TOP) Unknown Completed [facility] SARS-COV-2 COVID-19 MODERNA 12+ YRS VACCINE Unknown Completed [facility] SARS-COV-2 COVID-19 MODERNA 12+ YRS VACCINE Unknown Completed [facility] SARS-COV-2 COVID-19 MODERNA 0.25ML BOOSTER VACCINE Unknown Completed [facility] SARS-COV-2 COVID 19 ALLY SUCROSE VACCINE 12+, [id number], 0.3 ML (30 MCG), IM PFIZER (TRAN TOP) Unknown Completed [facility] SARS-COV-2 COVID-19 MODERNA 12+ YRS VACCINE Unknown Completed [facility] SARS-COV-2 COVID-19 MODERNA 12+ YRS VACCINE Unknown Completed [facility] SARS-COV-2 COVID-19 MODERNA 0.25ML BOOSTER VACCINE Unknown Completed [facility] SARS-COV-2 COVID 19 ALLY SUCROSE VACCINE 12+, , 0.3 ML (30 MCG), IM PFIZER (TRAN TOP) Unknown Completed [facility] SARS-COV-2 COVID-19 MODERNA 12+ YRS VACCINE Unknown Completed [facility] SARS-COV-2 COVID-19 MODERNA 12+ YRS VACCINE Unknown Completed [facility] SARS-COV-2 COVID-19 MODERNA 0.25ML BOOSTER VACCINE Unknown Completed [facility] SARS-COV-2 COVID 19 ALLY SUCROSE VACCINE 12+, , 0.3 ML (30 MCG), IM PFIZER (TRAN TOP) Unknown Completed [facility] SARS-COV-2 COVID-19 MODERNA 12+ YRS VACCINE Unknown Completed [facility] SARS-COV-2 COVID-19 MODERNA 12+ YRS VACCINE Unknown Completed [facility] SARS-COV-2 COVID-19 MODERNA 0.25ML BOOSTER VACCINE Unknown Completed [facility] SARS-COV-2 COVID 19 ALLY SUCROSE VACCINE 12+, , 0.3 ML (30 MCG), IM PFIZER (TRAN TOP) Unknown Completed [facility] SARS-COV-2 COVID-19 MODERNA 12+ YRS VACCINE Unknown Completed [facility] SARS-COV-2 COVID-19 MODERNA 12+ YRS VACCINE Unknown Completed [facility] SARS-COV-2 COVID-19 MODERNA 0.25ML BOOSTER VACCINE Unknown Completed [facility] SARS-COV-2 COVID 19 ALLY SUCROSE VACCINE 12+, , 0.3 ML (30 MCG), IM PFIZER (TRAN TOP) Unknown Completed [facility] SARS-COV-2 COVID-19 MODERNA 12+ YRS VACCINE Unknown Completed [facility] SARS-COV-2 COVID-19 MODERNA 12+ YRS VACCINE Unknown Completed [facility] SARS-COV-2 COVID-19 MODERNA 0.25ML BOOSTER VACCINE Unknown Completed [facility] SARS-COV-2 COVID 19 ALLY SUCROSE VACCINE 12+, , 0.3 ML (30 MCG), IM PFIZER (TRAN TOP) Unknown Completed [facility] SARS-COV-2 COVID-19 MODERNA 12+ YRS VACCINE Unknown Completed [facility] SARS-COV-2 COVID-19 MODERNA 12+ YRS VACCINE Unknown Completed [facility] SARS-COV-2 COVID-19 MODERNA 0.25ML BOOSTER VACCINE Unknown Completed [facility] SARS-COV-2 COVID 19 ALLY SUCROSE VACCINE 12+, , 0.3 ML (30 MCG), IM PFIZER (TRAN TOP) Unknown Completed [facility] SARS-COV-2 COVID-19 MODERNA 12+ YRS VACCINE Unknown Completed [facility] SARS-COV-2 COVID-19 MODERNA 12+ YRS VACCINE Unknown Completed [facility] SARS-COV-2 COVID-19 MODERNA 0.25ML BOOSTER VACCINE Unknown Completed [facility] SARS-COV-2 COVID 19 ALLY SUCROSE VACCINE 12+, , 0.3 ML (30 MCG), IM PFIZER (TRAN TOP) Unknown Completed [facility] SARS-COV-2 COVID-19 MODERNA 12+ YRS VACCINE Unknown Completed [facility] SARS-COV-2 COVID-19 MODERNA 12+ YRS VACCINE Unknown Completed [facility] SARS-COV-2 COVID-19 MODERNA 0.25ML BOOSTER VACCINE Unknown Completed [facility] SARS-COV-2 COVID 19 ALLY SUCROSE VACCINE 12+, , 0.3 ML (30 MCG), IM PFIZER (TRAN TOP) Unknown Completed [facility] Vital Signs Vital Name Observation Time Observation Value Comments S ource Systolic blood pressure 2023-12-04 17:29:00 129 mm[Hg] [facility] Diastolic blood pressure 2023-12-04 17:29:00 93 mm[Hg] [facility] Heart rate 2023-12-04 17:29:00 95 /min [facility] Body temperature 2023-12-04 17:29:00 37.06 Jodi [facility] Respiratory rate 2023-12-04 17:29:00 17 /min [facility] Body weight 2023-12-04 17:29:00 120.067 kg [facility] BMI 2023-12-04 17:29:00 42.72 kg/m2 [facility] Oxygen saturation in Arterial blood by Pulse oximetry 2023-12-04 17:29:00 100 /min [facility] Systolic blood pressure 2023-09-15 18:17:00 123 mm[Hg] [facility] Diastolic blood pressure 2023-09-15 18:17:00 84 mm[Hg] [facility] Heart rate 2023-09-15 18:17:00 84 /min [facility] Body temperature 2023-09-15 18:17:00 37.28 Jodi [facility] Respiratory rate 2023-09-15 18:17:00 18 /min [facility] Body height 2023-09-15 18:17:00 167.6 cm [facility] Body weight 2023-09-15 18:17:00 108.863 kg [facility] BMI 2023-09-15 18:17:00 38.74 kg/m2 [facility] Oxygen saturation in Arterial blood by Pulse oximetry 2023-09-15 18:17:00 100 /min [facility] Systolic blood pressure 2023-09-03 13:15:00 117 mm[Hg] [facility] Diastolic blood pressure 2023-09-03 13:15:00 51 mm[Hg] [facility] Heart rate 2023-09-03 13:15:00 72 /min [facility] Body temperature 2023-09-03 13:15:00 36.89 Jodi [facility] Respiratory rate 2023-09-03 13:15:00 17 /min [facility] Oxygen saturation in Arterial blood by Pulse oximetry 2023-09-03 13:15:00 98 /min [facility] Systolic blood pressure 2023-09-02 19:33:00 122 mm[Hg] [facility] Diastolic blood pressure 2023-09-02 19:33:00 92 mm[Hg] [facility] Heart rate 2023-09-02 19:33:00 81 /min [facility] Body temperature 2023-09-02 19:33:00 36.72 Jodi [facility] Respiratory rate 2023-09-02 19:33:00 21 /min [facility] Oxygen saturation in Arterial blood by Pulse oximetry 2023-09-02 19:33:00 100 /min [facility] Systolic blood pressure 2023-09-01 15:11:00 126 mm[Hg] [facility] Diastolic blood pressure 2023-09-01 15:11:00 89 mm[Hg] [facility] Heart rate 2023-09-01 15:11:00 98 /min [facility] Body temperature 2023-09-01 15:11:00 36.39 Jodi [facility] Body height 2023-09-01 15:11:00 152.4 cm [facility] Body weight 2023-09-01 15:11:00 119.75 kg [facility] BMI 2023-09-01 15:11:00 51.56 kg/m2 [facility] Oxygen saturation in Arterial blood by Pulse oximetry 2023-09-01 15:11:00 98 /min [facility] Systolic blood pressure 2023-08-26 19:07:00 140 mm[Hg] [facility] Diastolic blood pressure 2023-08-26 19:07:00 88 mm[Hg] [facility] Heart rate 2023-08-26 19:07:00 86 /min [facility] Body height 2023-08-26 19:07:00 165.1 cm [facility] Body weight 2023-08-26 19:07:00 120.385 kg [facility] BMI 2023-08-26 19:07:00 44.16 kg/m2 [facility] Oxygen saturation in Arterial blood by Pulse oximetry 2023-08-26 19:07:00 99 /min [facility] Systolic blood pressure 2023-08-19 21:01:00 132 mm[Hg] [facility] Diastolic blood pressure 2023-08-19 21:01:00 85 mm[Hg] [facility] Heart rate 2023-08-19 21:01:00 90 /min [facility] Respiratory rate 2023-08-19 21:01:00 18 /min [facility] Body height 2023-08-19 21:01:00 166.4 cm [facility] Body weight 2023-08-19 21:01:00 120.657 kg [facility] BMI 2023-08-19 21:01:00 43.59 kg/m2 [facility] Oxygen saturation in Arterial blood by Pulse oximetry 2023-08-19 21:01:00 97 /min [facility] Systolic blood pressure 2023-08-13 20:58:00 131 mm[Hg] [facility] Diastolic blood pressure 2023-08-13 20:58:00 75 mm[Hg] [facility] Heart rate 2023-08-13 20:58:00 81 /min [facility] Body temperature 2023-08-13 20:58:00 36.94 Jodi [facility] Respiratory rate 2023-08-13 20:58:00 18 /min [facility] Body height 2023-08-13 20:58:00 165.1 cm [facility] Body weight 2023-08-13 20:58:00 122.018 kg [facility] BMI 2023-08-13 20:58:00 44.76 kg/m2 [facility] Systolic blood pressure 2023-07-30 21:35:00 110 mm[Hg] [facility] Diastolic blood pressure 2023-07-30 21:35:00 78 mm[Hg] [facility] Heart rate 2023-07-30 21:35:00 91 /min [facility] Body temperature 2023-07-30 21:35:00 37 Jodi [facility] Body height 2023-07-30 21:35:00 165.1 cm [facility] Body weight 2023-07-30 21:35:00 119.75 kg [facility] BMI 2023-07-30 21:35:00 43.93 kg/m2 [facility] Systolic blood pressure 2023-07-23 14:15:00 135 mm[Hg] [facility] Diastolic blood pressure 2023-07-23 14:15:00 86 mm[Hg] [facility] Heart rate 2023-07-23 14:15:00 112 /min [facility] Body temperature 2023-07-23 14:15:00 36.22 Jodi [facility] Body height 2023-07-23 14:15:00 165.1 cm [facility] Body weight 2023-07-23 14:15:00 120.112 kg [facility] BMI 2023-07-23 14:15:00 44.07 kg/m2 [facility] Systolic blood pressure 2023-07-09 21:45:00 114 mm[Hg] [facility] Diastolic blood pressure 2023-07-09 21:45:00 79 mm[Hg] [facility] Heart rate 2023-07-09 21:45:00 113 /min [facility] Body temperature 2023-07-09 21:45:00 37.11 Jodi [facility] Respiratory rate 2023-07-09 21:45:00 18 /min [facility] Body height 2023-07-09 21:45:00 165.1 cm [facility] Body weight 2023-07-09 21:45:00 119.886 kg [facility] BMI 2023-07-09 21:45:00 43.98 kg/m2 [facility] Oxygen saturation in Arterial blood by Pulse oximetry 2023-07-09 21:45:00 99 /min [facility] Systolic blood pressure 2023-07-01 18:16:00 129 mm[Hg] [facility] Diastolic blood pressure 2023-07-01 18:16:00 83 mm[Hg] [facility] Heart rate 2023-07-01 18:16:00 86 /min [facility] Body temperature 2023-07-01 18:16:00 36.11 Jodi [facility] Body height 2023-07-01 18:16:00 167.6 cm [facility] Body weight 2023-07-01 18:16:00 117.935 kg [facility] BMI 2023-07-01 18:16:00 41.97 kg/m2 [facility] Oxygen saturation in Arterial blood by Pulse oximetry 2023-07-01 18:16:00 98 /min [facility] Systolic blood pressure 2023-06-29 08:50:00 120 mm[Hg] [facility] Diastolic blood pressure 2023-06-29 08:50:00 83 mm[Hg] [facility] Heart rate 2023-06-29 08:50:00 79 /min [facility] Body temperature 2023-06-29 08:50:00 36.56 Jodi [facility] Respiratory rate 2023-06-29 08:50:00 16 /min [facility] Oxygen saturation in Arterial blood by Pulse oximetry 2023-06-29 08:50:00 100 /min [facility] Body height 2023-06-29 04:06:00 167.6 cm [facility] Body weight 2023-06-29 04:06:00 99.791 kg [facility] BMI 2023-06-29 04:06:00 35.51 kg/m2 [facility] Systolic blood pressure 2023-06-11 19:00:00 112 mm[Hg] manual [facility] Diastolic blood pressure 2023-06-11 19:00:00 40 mm[Hg] manual [facility] Heart rate 2023-06-11 19:00:00 95 /min [facility] Respiratory rate 2023-06-11 19:00:00 20 /min [facility] Body weight 2023-06-11 19:00:00 117.391 kg [facility] BMI 2023-06-11 19:00:00 41.77 kg/m2 [facility] Oxygen saturation in Arterial blood by Pulse oximetry 2023-06-11 19:00:00 100 /min arrived on RA; 6MW on RA [facility] Systolic blood pressure 2023-05-22 20:55:00 145 mm[Hg] [facility] Diastolic blood pressure 2023-05-22 20:55:00 84 mm[Hg] [facility] Heart rate 2023-05-22 20:54:00 100 /min [facility] Body temperature 2023-05-22 20:54:00 36.78 Jodi [facility] Respiratory rate 2023-05-22 20:54:00 17 /min [facility] Body height 2023-05-22 20:54:00 167.6 cm [facility] Body weight 2023-05-22 20:54:00 118.343 kg [facility] BMI 2023-05-22 20:54:00 42.11 kg/m2 [facility] Oxygen saturation in Arterial blood by Pulse oximetry 2023-05-22 20:54:00 98 /min [facility] Systolic blood pressure 2023-05-13 16:03:00 123 mm[Hg] [facility] Diastolic blood pressure 2023-05-13 16:03:00 85 mm[Hg] [facility] Heart rate 2023-05-13 16:03:00 84 /min [facility] Respiratory rate 2023-05-13 16:03:00 19 /min [facility] Body height 2023-05-13 16:03:00 167.6 cm [facility] Body weight 2023-05-13 16:03:00 115.758 kg [facility] BMI 2023-05-13 16:03:00 41.19 kg/m2 [facility] Oxygen saturation in Arterial blood by Pulse oximetry 2023-05-13 16:03:00 98 /min [facility] Systolic blood pressure 2023-05-13 14:12:00 130 mm[Hg] [facility] Diastolic blood pressure 2023-05-13 14:12:00 85 mm[Hg] [facility] Heart rate 2023-05-13 14:12:00 118 /min [facility] Body temperature 2023-05-13 14:10:00 37 Jodi [facility] Respiratory rate 2023-05-13 14:10:00 22 /min [facility] Body height 2023-05-13 14:10:00 167.6 cm [facility] Body weight 2023-05-13 14:10:00 115.803 kg [facility] BMI 2023-05-13 14:10:00 41.21 kg/m2 [facility] Oxygen saturation in Arterial blood by Pulse oximetry 2023-05-13 14:10:00 96 /min [facility] Systolic blood pressure 2023-04-29 20:37:00 121 mm[Hg] [facility] Diastolic blood pressure 2023-04-29 20:37:00 87 mm[Hg] [facility] Heart rate 2023-04-29 20:37:00 108 /min [facility] Respiratory rate 2023-04-29 20:37:00 18 /min [facility] Body height 2023-04-29 20:37:00 167.6 cm [facility] Body weight 2023-04-29 20:37:00 114.306 kg [facility] BMI 2023-04-29 20:37:00 40.67 kg/m2 [facility] Systolic blood pressure 2023-04-03 20:45:00 124 mm[Hg] [facility] Diastolic blood pressure 2023-04-03 20:45:00 88 mm[Hg] [facility] Heart rate 2023-04-03 20:45:00 99 /min [facility] Body temperature 2023-04-03 20:45:00 37.28 Jodi [facility] Respiratory rate 2023-04-03 20:45:00 15 /min [facility] Body height 2023-04-03 20:45:00 167.6 cm [facility] Body weight 2023-04-03 20:45:00 109.09 kg [facility] BMI 2023-04-03 20:45:00 38.82 kg/m2 [facility] Oxygen saturation in Arterial blood by Pulse oximetry 2023-04-03 20:45:00 98 /min [facility] Systolic blood pressure 2023-04-01 18:33:00 130 mm[Hg] [facility] Diastolic blood pressure 2023-04-01 18:33:00 80 mm[Hg] [facility] Heart rate 2023-04-01 18:33:00 87 /min [facility] Body temperature 2023-04-01 18:33:00 36.67 Jodi [facility] Respiratory rate 2023-04-01 18:33:00 20 /min [facility] Body height 2023-04-01 18:33:00 167.6 cm [facility] Body weight 2023-04-01 18:33:00 108.455 kg [facility] BMI 2023-04-01 18:33:00 38.59 kg/m2 [facility] Oxygen saturation in Arterial blood by Pulse oximetry 2023-04-01 18:33:00 99 /min [facility] Systolic blood pressure 2023-04-01 18:33:00 130 mm[Hg] [facility] Diastolic blood pressure 2023-04-01 18:33:00 80 mm[Hg] [facility] Heart rate 2023-04-01 18:33:00 87 /min [facility] Body temperature 2023-04-01 18:33:00 36.67 Jodi [facility] Respiratory rate 2023-04-01 18:33:00 20 /min [facility] Body height 2023-04-01 18:33:00 167.6 cm [facility] Body weight 2023-04-01 18:33:00 108.455 kg [facility] BMI 2023-04-01 18:33:00 38.59 kg/m2 [facility] Oxygen saturation in Arterial blood by Pulse oximetry 2023-04-01 18:33:00 99 /min [facility] Systolic blood pressure 2023-03-30 18:11:00 118 mm[Hg] [facility] Diastolic blood pressure 2023-03-30 18:11:00 83 mm[Hg] [facility] Heart rate 2023-03-30 18:11:00 94 /min [facility] Respiratory rate 2023-03-30 18:11:00 18 /min [facility] Body weight 2023-03-30 18:11:00 108.773 kg [facility] BMI 2023-03-30 18:11:00 39.30 kg/m2 [facility] Systolic blood pressure 2023-03-20 21:26:00 115 mm[Hg] [facility] Diastolic blood pressure 2023-03-20 21:26:00 78 mm[Hg] [facility] Heart rate 2023-03-20 21:26:00 86 /min [facility] Body temperature 2023-03-20 21:26:00 37.17 Jodi [facility] Respiratory rate 2023-03-20 21:26:00 20 /min [facility] Body weight 2023-03-20 21:26:00 109.861 kg [facility] BMI 2023-03-20 21:26:00 39.69 kg/m2 [facility] Oxygen saturation in Arterial blood by Pulse oximetry 2023-03-20 21:26:00 96 /min [facility] Systolic blood pressure 2023-02-02 20:17:00 134 mm[Hg] [facility] Diastolic blood pressure 2023-02-02 20:17:00 85 mm[Hg] [facility] Heart rate 2023-02-02 20:17:00 73 /min [facility] Body temperature 2023-02-02 20:17:00 36.89 Jodi [facility] Respiratory rate 2023-02-02 20:17:00 18 /min [facility] Body height 2023-02-02 20:17:00 166.4 cm [facility] Body weight 2023-02-02 20:17:00 109.77 kg [facility] BMI 2023-02-02 20:17:00 39.66 kg/m2 [facility] Systolic blood pressure 2022-08-05 00:16:00 126 mm[Hg] [facility] Diastolic blood pressure 2022-08-05 00:16:00 85 mm[Hg] [facility] Heart rate 2022-08-05 00:16:00 98 /min [facility] Body temperature 2022-08-05 00:16:00 37.28 Jodi [facility] Respiratory rate 2022-08-05 00:16:00 20 /min [facility] Body height 2022-08-05 00:16:00 167.6 cm [facility] Body weight 2022-08-05 00:16:00 99.791 kg [facility] BMI 2022-08-05 00:16:00 35.51 kg/m2 [facility] Oxygen saturation in Arterial blood by Pulse oximetry 2022-08-05 00:16:00 100 /min [facility] Systolic blood pressure 2022-05-12 14:38:00 153 mm[Hg] [facility] Diastolic blood pressure 2022-05-12 14:38:00 102 mm[Hg] [facility] Heart rate 2022-05-12 14:38:00 79 /min [facility] Body temperature 2022-05-12 14:38:00 36.17 Jodi [facility] Respiratory rate 2022-05-12 14:38:00 18 /min [facility] Body weight 2022-05-12 14:38:00 97.523 kg [facility] BMI 2022-05-12 14:38:00 34.70 kg/m2 [facility] Oxygen saturation in Arterial blood by Pulse oximetry 2022-05-12 14:38:00 100 /min [facility] Systolic blood pressure 2022-03-24 14:09:00 145 mm[Hg] [facility] Diastolic blood pressure 2022-03-24 14:09:00 108 mm[Hg] [facility] Heart rate 2022-03-24 14:09:00 90 /min [facility] Body temperature 2022-03-24 14:09:00 37.28 Jodi [facility] Respiratory rate 2022-03-24 14:09:00 14 /min [facility] Body height 2022-03-24 14:09:00 167.6 cm [facility] Body weight 2022-03-24 14:09:00 95.255 kg [facility] BMI 2022-03-24 14:09:00 33.89 kg/m2 [facility] Oxygen saturation in Arterial blood by Pulse oximetry 2022-03-24 14:09:00 100 /min [facility] Systolic blood pressure 2022-02-18 02:00:00 147 mm[Hg] [facility] Diastolic blood pressure 2022-02-18 02:00:00 95 mm[Hg] [facility] Heart rate 2022-02-18 02:00:00 78 /min [facility] Respiratory rate 2022-02-18 02:00:00 18 /min [facility] Oxygen saturation in Arterial blood by Pulse oximetry 2022-02-18 02:00:00 99 /min [facility] Body temperature 2022-02-17 23:30:00 37.06 Jodi [facility] Body weight 2022-02-17 23:30:00 98.158 kg [facility] BMI 2022-02-17 23:30:00 34.93 kg/m2 [facility] Systolic blood pressure 2022-02-17 23:10:00 146 mm[Hg] [facility] Diastolic blood pressure 2022-02-17 23:10:00 101 mm[Hg] [facility] Heart rate 2022-02-17 23:10:00 67 /min [facility] Body temperature 2022-02-17 23:10:00 37.56 Jodi [facility] Respiratory rate 2022-02-17 23:10:00 18 /min [facility] Body height 2022-02-17 23:10:00 167.6 cm [facility] Body weight 2022-02-17 23:10:00 95.255 kg [facility] BMI 2022-02-17 23:10:00 33.89 kg/m2 [facility] Oxygen saturation in Arterial blood by Pulse oximetry 2022-02-17 23:10:00 100 /min [facility] Systolic blood pressure 2022-01-26 18:37:00 120 mm[Hg] [facility] Diastolic blood pressure 2022-01-26 18:37:00 77 mm[Hg] [facility] Heart rate 2022-01-26 18:36:00 88 /min [facility] Body temperature 2022-01-26 18:36:00 36.67 Jodi [facility] Respiratory rate 2022-01-26 18:36:00 18 /min [facility] Body height 2022-01-26 18:36:00 165.1 cm [facility] Body weight 2022-01-26 18:36:00 96.616 kg [facility] BMI 2022-01-26 18:36:00 35.45 kg/m2 [facility] Oxygen saturation in Arterial blood by Pulse oximetry 2022-01-26 18:36:00 100 /min [facility] Systolic blood pressure 2021-11-24 09:19:00 125 mm[Hg] [facility] Diastolic blood pressure 2021-11-24 09:19:00 81 mm[Hg] [facility] Heart rate 2021-11-24 09:19:00 67 /min [facility] Respiratory rate 2021-11-24 09:19:00 19 /min [facility] Oxygen saturation in Arterial blood by Pulse oximetry 2021-11-24 09:19:00 99 /min [facility] Body temperature 2021-11-24 03:00:00 36.78 Jodi [facility] Body height 2021-11-24 03:00:00 165.1 cm [facility] Body weight 2021-11-24 03:00:00 97.523 kg [facility] BMI 2021-11-24 03:00:00 35.78 kg/m2 [facility] Systolic blood pressure 2021-11-21 21:13:00 127 mm[Hg] [facility] Diastolic blood pressure 2021-11-21 21:13:00 91 mm[Hg] [facility] Heart rate 2021-11-21 20:50:00 81 /min [facility] Body temperature 2021-11-21 20:50:00 37 Jodi [facility] Respiratory rate 2021-11-21 20:50:00 18 /min [facility] Body height 2021-11-21 20:50:00 165.1 cm [facility] Body weight 2021-11-21 20:50:00 97.523 kg [facility] BMI 2021-11-21 20:50:00 35.78 kg/m2 [facility] Procedures Procedure Date / Time Performed Performing Clinician Source POCT SARS-COV-2 ANTIGEN (BINAX NOW) 2023-12-04 17:31[facility]00 [facility] 2023-12-04 17:24:00 Flaco, Wily echevarria [facility] POCT SARS-COV-2 ANTIGEN (BINAX NOW) 2023-09-15 18:27:00 Malena Garcia [facility] BASIC METABOLIC PANEL (NA, K, CL, CO2, GLUCOSE, BUN, CREATININE, CA) 2023-09-03 10:22:00 Jess [facility] CBC WITH DIFF 2023-09-03 10:22:00 Jess [facility] BASIC METABOLIC PANEL (NA, K, CL, CO2, GLUCOSE, BUN, CREATININE, CA) 2023-09-03 10:22:00 Jess [facility] CBC WITH DIFF 2023-09-03 10:22:00 Jess [facility] LAPAROSCOPIC TOTAL ABDOMINAL HYSTERECTOMY 2023-09-02 21:56:00 Jess [facility] CYSTOSCOPY 2023-09-02 21:56:[address] [facility] SALPINGECTOMY 2023-09-02 21:56:00 Mercado [facility] LAPAROSCOPIC TOTAL ABDOMINAL HYSTERECTOMY 2023-09-02 21:56:00 Jess [facility] CYSTOSCOPY 2023-09-02 21:56:[address] [facility] SALPINGECTOMY 2023-09-02 21:56:00 Jess [facility] DAY SURGERY - ADC 2023-09-02 06:01:00 Doctor Shirley ssigned, [place] [facility] TOTAL BETA HCG ASSAY 2023-09-01 14:50:00 Jess [facility] INSURANCE CORRESPONDENCE 2023-08-25 06:01:00 Doc tor Unassigned, [place] [facility] INSURANCE CORRESPONDENCE 2023-08-21 06:01:00 Doc tor Unassigned, [place] [facility] CBC WITH DIFF 2023-08-19 23:12:00 Cheikh Boyle [facility] SARS-COV-2 COVID 19 ALLY SUCROSE VACCINE 12+, , 0.3 ML (30 MCG), IM PFIZER (TRAN TOP) 2023-08-19 22:08:51 Cheikh Boyle [facility] DSU PRE-OP 2023-08-14 06:01:00 Doctor Unachirag igned, [place] [facility] US PELVIS COMPLETE WITH TRANSVAGINAL 2023-07-30 16:55:00 Jarrod Mercado [facility] POCT TEST 2023-07-30 00:00:00 Jarrod Mercado [facility] POCT TEST 2023-07-23 00:00:00 Jarrod Mercado [facility] POCT MOLECULAR STREP 2023-07-09 21:56:00 Unknown, Attroberth echevarria [facility] CBC WITH DIFF 2023-07-01 19:02:00 Taiwo Wharton [facility] PROTHROMBIN TIME / INR 2023-07-01 19:02:00 Silverio Wharton [facility] CT ABDOMEN PELVIS W CONTRAST 2023-06-29 07:44:14 Arianna Whitmore [facility] URINALYSIS 2023-06-29 05:56:00 Arianna Whitmore [facility] LIPASE 2023-06-29 05:51:00 Arianna Whitmore [facility] TROPONIN I 2023-06-29 05:51:00 Arianna Whitmore [facility] COMP. METABOLIC PANEL (23614) 2023-06-29 05:51:00 Arianna Whitmore [facility] CBC WITH DIFF 2023-06-29 05:51:00 Arianna Whitmore [facility] D-DIMER 2023-06-29 05:51:00 Arianna Whitmore [facility] RAPID INFLUENZA A/B 2023-06-29 05:51:00 Arianna Whitmore [facility] COVID-19 (ID NOW RAPID TESTING) 2023-06-29 05:51:00 Arianna Whitmore [facility] ASSIGNMENT OF BENEFITS 2023-06-29 04:31:47 Docto r Unassigned, [place] [facility] CONSENT/REFUSAL FOR DIAGNOSIS AND TREATMENT 2023-06-29 03:52:07 Doctor Unassigned, [place] [facility] US LIVER 2023-06-15 15:16:11 Cheikh Boyle [facility] CONSENT/REFUSAL FOR DIAGNOSIS AND TREATMENT 2023-06-11 05:01:00 Doctor Unassigned, [place] [facility] NO SHOW OR MISSED APPOINTMENT POLICY ACKNOWLEDGEMENT 2023-06-11 05:01:00 Doctor Unassigned, [place] [facility] POCT MOLECULAR FLU 2023-05-22 21:09:00 Unknown, Attend ing [facility] POCT SARS-COV-2 ANTIGEN (BINAX NOW) 2023-05-22 21:01:00 Sera Wotrhy [facility] INSURANCE CORRESPONDENCE 2023-05-18 05:01:00 Doc tor Unassigned, [place] [facility] TRANSTHORACIC ECHO (TTE) COMPLETE 2023-05-15 15:04:27 Nicanor Hall [facility] INSURANCE CORRESPONDENCE 2023-05-13 05:01:00 Doc tor Unassigned, [place] [facility] EXTERNAL PROVIDER RECORDS 2023-04-14 05:01:00 Do ctor Unassigned, [place] [facility] POCT SARS-COV-2 ANTIGEN (BINAX NOW) 2023-04-03 20:55:00 Sera Worthy [facility] POCT SARS-COV-2 ANTIGEN (BINAX NOW) 2023-03-20 21:30:00 Sera Worthy [facility] ASSIGNMENT OF BENEFITS 2023-02-02 20:09:30 Docto r Unassigned, [place] [facility] POCT TEST 2023-02-02 00:00:00 Ernesto Smith [facility] XR HAND 3+ VW LEFT 2022-08-05 00:55:28 Nii Abraham [facility] CONSENT/REFUSAL FOR DIAGNOSIS AND TREATMENT 2022-08-04 23:55:33 Doctor Unassigned, [place] [facility] XR FINGERS 2 VW LEFT 2022-05-12 15:57:11 Ciarra Frank [facility] XR WRIST 3+ VW LEFT 2022-05-12 15:57:11 Ciarra Frank [facility] CONSENT/REFUSAL FOR DIAGNOSIS AND TREATMENT 2022-05-12 14:32:26 Doctor Unassigned, [place] [facility] CONSENT/REFUSAL FOR DIAGNOSIS AND TREATMENT 2022-03-24 14:06:23 Doctor Unassigned, [place] [facility] US PELVIS COMPLETE NON-OB 2022-02-18 01:07:39 Natalie Almendarez [facility] CT ABDOMEN PELVIS W CONTRAST 2022-02-18 00:35:22 Natalie Almendarez [facility] POCT TEST 2022-02-18 00:22:00 Natalie Almendarez [facility] TEST, SERUM 2022-02-18 00:21:00 Terry Almendarez [facility] COMP. METABOLIC PANEL ([id number]) 2022-02-18 00:21:00 Natalie Almendarez [facility] CBC WITH DIFF 2022-02-18 00:21:00 Natalie Almendarez [facility] URINALYSIS 2022-02-18 00:21:00 Natalie Almendarez [facility] CONSENT/REFUSAL FOR DIAGNOSIS AND TREATMENT 2022-02-17 23:21:20 Doctor Unassigned, [place] [facility] SARS-COV-2 COVID-19 VACCINE BOOSTER,0.25ML,IM (MODERNA) 2022-01-23 19:36:51 Doctor Unassigned, [place] [facility] US OVARY TORSION 2021-11-24 08:01:43 Arianna Whitmore [facility] CT ABDOMEN PELVIS W CONTRAST 2021-11-24 04:24:09 Arianna Whitmore [facility] POCT TEST 2021-11-24 03:18:00 Arianna Whitmore [facility] LIPASE 2021-11-24 03:17:00 Arianna Whitmore [facility] COMP. METABOLIC PANEL ([id number]) 2021-11-24 03:17:00 Arianna Whitmore [facility] CBC WITH DIFF 2021-11-24 03:17:00 Arianna Whitmore [facility] URINALYSIS 2021-11-24 03:17:00 Arianna Whitmore [facility] NOTICE OF PRIVACY PRACTICES 2021-11-24 02:50:34 Doctor Unassigned, [place] [facility] CONSENT/REFUSAL FOR DIAGNOSIS AND TREATMENT 2021-11-24 02:50:13 Doctor Unassigned, [place] [facility] Encounters Start Date/Time End Date/Time Encounter Type Admission Type Attending Clinicians Care Facility Care Department Encounter ID Source 2021-06-10 21:56:33 Emergency [facility] [id number] [facility] 2021-06-10 11:43:59 Emergency [facility] [id number] [facility] 2021-06-10 11:18:46 Emergency [facility] [id number] [facility] 2021-06-10 09:58:36 Emergency [facility] [id number] [facility] 2021-06-09 00:40:14 Emergency [facility] [id number] [facility] 2021-06-08 04:28:04 Emergency [facility] [id number] [facility] 2021-06-07 16:30:58 Emergency [facility] [id number] [facility] 2021-06-06 17:46:29 Emergency [facility] [id number] [facility] 2023-12-22 00:00:00 2023-12-22 09:17:07 Telephone Promise Cabezas [facility] 1.2.840.114 350.1.13.10 4.2.7.2.686 [id number] [facility] 2023-12-10 13:00:00 2023-12-10 13:00:00 Outpatient CHEIKH LIZAMA [facility] [id number] [facility] 2023-12-04 12:20:00 2023-12-04 13:14:26 Outpatient R VIERA, SERGO [facility] [id number] [facility] 2023-12-04 12:20:00 2023-12-04 12:40:00 Urgent Care Viera Sergo Unknown, Attending [facility] 1..840.114 350.1.13.10 4.2.7.2.686 [id number] [facility] 2023-10-19 00:00:00 2023-10-19 00:00:00 Telephone Jarrod Mercado [facility] 1..840.114 350.1.13.10 4.2.7.2.686 [id number] [facility] 2023-09-30 10:45:00 2023-09-30 10:45:00 Outpatient R JARROD MERCADO [facility] [id number] [facility] 2023-09-24 00:00:00 2023-09-24 00:00:00 Telephone Promise Cabezas [facility] 1..840.114 350.1.13.10 4.2.7.2.686 [id number] [facility] 2023-09-17 13:15:00 2023-09-17 13:30:00 Office Visit Jarrod Mercado [facility] 1..840.114 350.1.13.10 4.2.7.2.686 [id number] [facility] 2023-09-17 13:15:00 2023-09-17 13:15:00 Outpatient R JARROD MERCADO [facility] [id number] [facility] 2023-09-16 00:00:00 2023-09-16 00:00:00 Telephone Malena Garcia [facility] 1.2.840.114 350.1.13.10 4.2.7.2.686 [id number] [facility] 2023-09-15 12:00:00 2023-09-15 13:07:33 Outpatient R MONIQUE GARCIAANDA [facility] [id number] [facility] 2023-09-15 12:00:00 2023-09-15 12:20:00 Urgent Care Malena Garcia Unknown, Attending [facility] 1.2.840.114 350.1.13.10 4.2.7.2.686 [id number] [facility] 2023-09-08 00:00:00 2023-09-08 00:00:00 Case Management Jarrod Mercado [facility] 1.2.840.114 350.1.13.10 4.2.7.2.686 [id number] [facility] 2023-09-07 00:00:00 2023-09-07 00:00:00 Patient Secure Msg Doctor Unassigned, [place] [facility] 1.2.840.114 350.1.13.10 4.2.7.2.686 [id number] [facility] 2023-09-04 00:00:00 2023-09-04 00:00:00 Telephone Jarrod Mercado [facility] 1.2.840.114 350.1.13.10 4.2.7.2.686 [id number] [facility] 2023-09-02 13:20:00 2023-09-03 08:40:00 Outpatient R JARROD MERCADO [facility] HADOOP ADMIN [id number] [facility] 2023-09-02 13:20:00 2023-09-03 08:40:00 Hospital Encounter Jarrod Mercado [facility] 1.20.114 350.1.13.10 4.2.7.2.686 [id number] [facility] 2023-09-03 00:00:00 2023-09-03 00:00:00 Telephone Jarrod Mercado [facility] 1.20.114 350.1.13.10 4.2.7.2.686 [id number] 134 [id number] [facility] 2023-09-02 12:41:00 2023-09-02 17:07:00 Surgery Jarrod Mercado [facility] 1.2.114 350.1.13.10 4.2.7.2.686 [id number] [facility] 2023-09-02 00:00:00 2023-09-02 00:00:00 Orders Only Doctor Unassigned, [place] [facility] 1..114 350.1.13.10 4.2.7.2.686 [id number] [facility] 2023-09-01 13:00:00 2023-09-01 13:20:00 Office Visit Troy Khan [facility] 1..114 350.1.13.10 4.2.7.2.686 [id number] [facility] 2023-09-01 13:00:00 2023-09-01 13:00:00 [id number] 2023-09-01 09:15:00 2023-09-01 09:30:00 Piece Work Inspector Visit Pob, Adc Lab Main Jarrod Mercado [facility] BU[facility] 1.2.114 350.1.13.10 4.2.7.2.686 [id number] [facility] 2023-09-01 00:00:00 2023-09-01 00:00:00 Telephone [facility] 1.2.840.114 350.1.13.10 4.2.7.2.686 [id number] 134 [id number] [facility] 2023-08-28 00:00:00 2023-08-28 00:00:00 Telephone Promise Cabezas [facility] 1.2840.114 350.1.13.10 4.2.7.2.686 [id number] [facility] 2023-08-26 13:00:00 2023-08-26 13:15:40 [id number] 2023-08-26 13:00:00 2023-08-26 13:15:40 [facility] 1.2840.114 350.1.13.10 4.2.7.2.686 [id number] [facility] 2023-08-25 00:00:00 2023-08-25 00:00:00 Orders Only Doctor Unassigned, [place] [facility] 1.2.840.114 350.1.13.10 4.2.7.2.686 [id number] [facility] 2023-08-21 00:00:00 2023-08-21 00:00:00 Orders Only Doctor Unassigned, [place] [facility] 1.2.840.114 350.1.13.10 4.2.7.2.686 [id number] [facility] 2023-08-20 00:00:00 2023-08-20 00:00:00 Telephone Cheikh Boyle [facility] 1.2.840.114 350.1.13.10 4.2.7.2.686 [id number] [facility] 2023-08-19 16:30:00 2023-08-19 16:45:00 Piece Work Inspector Visit Pob, Adc Lab Main Cheikh Boyle [facility] 1.2840.114 350.1.13.10 4.2.7.2.686 [id number] [facility] 2023-08-19 15:00:00 2023-08-19 16:36:17 Outpatient R CHEIKH BOYLE [facility] [id number] [facility] 2023-08-19 15:00:00 2023-08-19 16:36:17 Office Visit Cheikh Boyle [facility] 1.2.840.114 350.1.13.10 4.2.7.2.686 [id number] [facility] 2023-08-14 00:00:00 2023-08-14 00:00:00 Orders Only Doctor Unassigned, [place] [facility] 1.2840.114 350.1.13.10 4.2.7.2.686 [id number] [facility] 2023-08-13 14:00:00 2023-08-13 15:13:42 Outpatient R JARROD MERCADO [facility] [id number] [facility] 2023-08-13 14:00:00 2023-08-13 15:13:42 Office Visit Jarrod Mercado [facility] 1.2.840.114 350.1.13.10 4.2.7.2.686 [id number] [facility] 2023-08-12 15:30:00 2023-08-12 15:30:00 Outpatient R TAIWO WHARTON [facility] [id number] [facility] 2023-08-12 00:00:00 2023-08-12 00:00:00 Telephone Promise Cabezas [facility] 1.2840.114 350.1.13.10 4.2.7.2.686 [id number] [facility] 2023-07-30 10:24:56 2023-07-30 23:59:00 Hospital Encounter Jarrod Mercado [facility] 1.2840.114 350.1.13.10 4.2.7.2.686 [id number] [facility] 2023-07-30 15:00:00 2023-07-30 15:36:[address] [facility] [id number] [facility] 2023-07-30 15:00:00 2023-07-30 15:36:01 Office Visit Jarrod Mercado [facility] 1.2840.114 350.1.13.10 4.2.7.2.686 [id number] [facility] 2023-07-24 00:00:00 2023-07-24 00:00:00 Case Management Prem [facility] AT [facility] 1.2840.114 350.1.13.10 4.2.7.2.686 [id number] [facility] 2023-07-24 00:00:00 2023-07-24 00:00:00 Telephone Prem Sparrow [facility] SPECIALTY [facility] AT [facility] 1.2840.114 350.1.13.10 4.2.7.2.686 [id number] [facility] 2023-07-24 00:00:00 2023-07-24 00:00:00 Telephone Promise Cabezas [facility] [id number] [id number] [id number] [facility] 2023-07-23 08:00:00 2023-07-23 09:04:50 Outpatient R JARROD MERCADO [facility] [id number] [facility] 2023-07-23 08:00:00 2023-07-23 09:04:50 [facility] [id number] [id number] [id number] [id number] [facility] 2023-07-23 00:00:00 2023-07-23 00:00:00 Prep For Surgery Jarrod Mercado [facility] BUILDING [id number] [id number] [id number] [id number] [facility] 2023-07-23 00:00:00 2023-07-23 00:00:00 Telephone Taiwo Wharton [facility] 1.2840.114 350.1.13.10 4.2.7.2.686 [id number] 072 [id number] [facility] 2023-07-22 15:00:00 2023-07-22 15:00:00 Outpatient R [facility] [id number] [facility] 2023-07-22 00:00:00 2023-07-22 00:00:00 Telephone Jarrod Mercado [facility] 1.2.840.114 350.1.13.10 4.2.7.2.686 [id number] [facility] 2023-07-10 00:00:00 2023-07-10 00:00:00 Case Management Taiwo Wharton [facility] 1.2840.114 350.1.13.10 4.2.7.2.686 [id number] 072 [id number] [facility] 2023-07-09 16:00:00 2023-07-09 16:20:00 Urgent Care Sera Worthy Unknown, Attending Sarah [facility] 1..840.114 350.1.13.10 4.2.7.2.686 [id number] [facility] 2023-07-09 16:00:00 2023-07-09 16:00:00 Outpatient R SARAH FRANNIE [facility] [id number] [facility] 2023-07-01 13:00:00 2023-07-01 13:15:00 Piece Work Inspector Visit Lab, [facility] 1..840.114 350.1.13.10 4.2.7.2.686 [id number] [facility] 2023-07-01 13:00:00 2023-07-01 13:00:00 Outpatient R TAIWO WHARTON [facility] [id number] [facility] 2023-07-01 12:30:00 2023-07-01 12:39:11 Office Visit Prem [facility] 1..840.114 350.1.13.10 4.2.7.2.686 [id number] 072 [id number] [facility] 2023-06-29 15:00:00 2023-06-29 15:00:00 Outpatient R OBI-TROY RAY OBI-TROY RAY [facility] [id number] [facility] 2023-06-28 22:11:00 2023-06-29 02:54:00 Emergency X [facility]ANNA [facility] ERT [id number] [facility] 2023-06-28 22:11:00 2023-06-29 02:54:[address] [facility] 1.2.840.114 350.1.13.10 4.2.7.2.686 [id number] 084 [id number] [facility] 2023-06-24 14:00:00 2023-06-24 14:00:00 Outpatient R OBI-FLOR , TROY OBI-FLOR , TROY [facility] [id number] [facility] 2023-06-23 08:40:00 2023-06-23 08:40:00 Outpatient R OBI-FLOR , TROY OBI-FLOR , TROY [facility] [id number] [facility] 2023-06-23 00:00:00 2023-06-23 00:00:00 Telephone Kimberly Guajardo [facility] 1.2.840.114 350.1.13.10 4.2.7.2.686 [id number] [facility] 2023-06-22 00:00:00 2023-06-22 00:00:00 Patient Secure Nicanor Downs [facility] 1.2.840.114 350.1.13.10 4.2.7.2.686 [id number] 059 [id number] [facility] 2023-06-18 11:20:00 2023-06-18 11:20:00 Outpatient R OBI-FLOR , [facility] [id number] 2023-06-15 08:52:22 2023-06-15 23:59:00 Outpatient R CHEIKH BOYLE [facility] [id number] [facility] 2023-06-15 08:52:22 2023-06-15 23:59:00 Hospital Encounter [place], [facility] 1.2.840.114 350.1.13.10 4.2.7.2.686 [id number] [id number] [facility] 2023-06-15 00:00:00 2023-06-15 00:00:00 Patient [facility] 1.2.840.114 350.1.13.10 4.2.7.2.686 [id number] 044 [id number] [facility] 2023-06-11 14:00:00 2023-06-11 15:36:52 Outpatient R RAFAEL [facility] [id number] [facility] 2023-06-11 14:00:00 2023-06-11 15:36:52 Ancillary Visit Therapist, [facility] 1.2840.114 350.1.13.10 4.2.7.2.686 [id number] 296 [id number] [facility] 2023-06-11 00:00:00 2023-06-11 00:00:00 Patient Secure g Araceli [facility] BU[facility]ING 1.2.840.114 350.1.13.10 4.2.7.2.686 [id number] 044 [id number] [facility] 2023-06-10 00:00:00 2023-06-10 00:00:00 Refill Araceli [facility] BUILDING 1.2840.114 350.1.13.10 4.2.7.2.686 [id number] 044 [id number] [facility] 2023-06-03 00:00:00 2023-06-03 00:00:00 Patient Secure Msg Araceli [facility] BU[facility]ING 1.2.840.114 350.1.13.10 4.2.7.2.686 [id number] 044 [id number] [facility] 2023-06-01 00:00:00 2023-06-01 00:00:00 Telephone Kimberly Guajardo [facility] 1.2.840.114 350.1.13.10 4.2.7.2.686 [id number] [facility] 2023-05-22 15:40:00 2023-05-22 16:43:37 Outpatient R SERA WORTHY [facility] [id number] [facility] 2023-05-22 15:40:00 2023-05-22 16:43:37 Urgent Care Sera Worthy Unknown, Attending [facility] 1.2.840.114 350.1.13.10 4.2.7.2.686 [id number] 370 [id number] [facility] 2023-05-21 00:00:00 2023-05-21 00:00:00 Telephone Kimberly Guajardo [facility] 1.2.840.114 350.1.13.10 4.2.7.2.686 [id number] [facility] 2023-05-19 00:00:00 2023-05-19 00:00:00 Telephone Cheikh Boyle [facility] 1.2.840.114 350.1.13.10 4.2.7.2.686 [id number] 044 [id number] [facility] 2023-05-18 00:00:00 2023-05-18 00:00:00 Telephone Kimberly Guajardo [facility] 1.2.840.114 350.1.13.10 4.2.7.2.686 [id number] [facility] 2023-05-18 00:00:00 2023-05-18 00:00:00 Orders Only Doctor Unassigned, [place] [facility] 1.2.840.114 350.1.13.10 4.2.7.2.686 [id number] [id number] [facility] 2023-05-17 00:00:00 2023-05-17 00:00:00 Patient [facility] 1.2.840.114 350.1.13.10 4.2.7.2.686 [id number] 059 [id number] [facility] 2023-05-15 10:00:59 2023-05-15 23:59:00 [facility] [id number] [facility] 2023-05-15 10:00:59 2023-05-15 23:59:[address] [facility] BUILDING 1.2840.114 350.1.13.10 4.2.7.2.686 [id number] [facility] 2023-05-15 08:46:23 2023-05-15 09:59:00 [facility] 1.2.840.114 350.1.13.10 4.2.7.2.686 [id number] [id number] [facility] 2023-05-14 00:00:00 2023-05-14 00:00:00 Frannie Boston [facility] 1.2.840.114 350.1.13.10 4.2.7.2.686 [id number] 134 [id number] [facility] 2023-05-13 11:20:00 2023-05-13 11:20:00 [facility] 1.2.840.114 350.1.13.10 4.2.7.2.686 [id number] 059 [id number] [facility] 2023-05-13 10:45:00 2023-05-13 11:00:00 Piece Work Inspector Visit 2, Adc Lab Cheikh Boyle [facility] 1.2.840.114 350.1.13.10 4.2.7.2.686 [id number] [facility] 2023-05-13 08:20:00 2023-05-13 10:20:16 Outpatient R CHEIKH BOYLE [facility] [id number] [facility] 2023-05-13 08:20:00 2023-05-13 10:20:16 Office Visit Cheikh Boyle [facility] 1.2.840.114 350.1.13.10 4.2.7.2.686 [id number] 044 [id number] [facility] 2023-05-13 00:00:00 2023-05-13 00:00:00 Frannie Boston [facility] 1..840.114 350.1.13.10 4.2.7.2.686 [id number] 134 [id number] [facility] 2023-05-13 00:00:00 2023-05-13 00:00:00 Case Management Red Cramer [facility] 1.84.114 350.1.13.10 4.2.7.2.686 [id number] 085 [id number] [facility] 2023-05-13 00:00:00 2023-05-13 00:00:00 Telephone Cheikh Boyle [facility] 1.2.840.114 350.1.13.10 4.2.7.2.686 [id number] [facility] 2023-05-13 00:00:00 2023-05-13 00:00:00 Patient Secure Msg Frannie Smith [facility] 1.2.840.114 350.1.13.10 4.2.7.2.686 [id number] 134 [id number] [facility] 2023-05-13 00:00:00 2023-05-13 00:00:00 Patient Secure Msg Doctor Unassigned, [place] [facility] 1.20.114 350.1.13.10 4.2.7.2.686 [id number] 134 [id number] [facility] 2023-05-13 00:00:00 2023-05-13 00:00:00 Patient Secure Msg JennieCheikh palomino [facility] 1.2840.114 350.1.13.10 4.2.7.2.686 [id number] 044 [id number] [facility] 2023-05-13 00:00:00 2023-05-13 00:00:00 Orders Only Doctor Unassigned, [place] [facility] 1.284.114 350.1.13.10 4.2.7.2.686 [id number] [facility] 2023-05-12 00:00:00 2023-05-12 00:00:00 Patient Secure Msg Jenniededegallo Cheikh [facility] 1.2840.114 350.1.13.10 4.2.7.2.686 [id number] 044 [id number] [facility] 2023-05-08 10:40:00 2023-05-08 10:40:00 Outpatient R CHEIKH BOYLE [facility] [id number] [facility] 2023-05-08 00:00:00 2023-05-08 00:00:00 Patient Secure Msg Jenniededegallo Cheikh [facility] 1.2840.114 350.1.13.10 4.2.7.2.686 [id number] 044 [id number] [facility] 2023-05-07 00:00:00 2023-05-07 00:00:00 Telephone Cheikh Boyle [facility] 1..840.114 350.1.13.10 4.2.7.2.686 [id number] 044 [id number] [facility] 2023-05-04 00:00:00 2023-05-04 00:00:00 Patient Secure Msg Doctor Unassigned, [place] [facility] 1.840.114 350.1.13.10 4.2.7.2.686 [id number] 019 [id number] [facility] 2023-05-01 00:00:00 2023-05-01 00:00:00 Patient Secure Msg Doctor Unassigned, [place] [facility] 1.2840.114 350.1.13.10 4.2.7.2.686 [id number] 019 [id number] [facility] 2023-04-29 15:30:00 2023-04-29 15:38:38 Outpatient R SARAH [facility] [id number] [facility] 2023-04-29 15:30:00 2023-04-29 15:38:38 Nurse Visit Nurse, [facility] Sarah [facility] 1..840.114 350.1.13.10 4.2.7.2.686 [id number] 134 [id number] [facility] 2023-04-29 00:00:00 2023-04-29 00:00:00 Patient Secure Msg Cheikh Boyle [facility] 1.2.840.114 350.1.13.10 4.2.7.2.686 [id number] 044 [id number] [facility] 2023-04-29 00:00:00 2023-04-29 00:00:00 Telephone Carlosnicolette Cheikh [facility] 1.2.840.114 350.1.13.10 4.2.7.2.686 [id number] 044 [id number] [facility] 2023-04-28 00:00:00 2023-04-28 00:00:00 Harman Smith Frannie [facility] 1.2.840.114 350.1.13.10 4.2.7.2.686 [id number] 134 [id number] [facility] 2023-04-21 00:00:00 2023-04-21 00:00:00 Telephone CarlosnicoletteCheikh [facility] 1.2.840.114 350.1.13.10 4.2.7.2.686 [id number] 044 [id number] [facility] 2023-04-20 00:00:00 2023-04-20 00:00:00 Patient Secure Msg CarlosnicoletteCheikh [facility] 1.2.840.114 350.1.13.10 4.2.7.2.686 [id number] 044 [id number] [facility] 2023-04-14 00:00:00 2023-04-14 00:00:00 Orders Only Doctor Unassigned, [place] [facility] 1.2.840.114 350.1.13.10 4.2.7.2.686 [id number] [facility] 2023-04-14 00:00:00 2023-04-14 00:00:00 Telephone CarlosCheikh will [facility] 1.2.840.114 350.1.13.10 4.2.7.2.686 [id number] 044 [id number] [facility] 2023-04-10 00:00:00 2023-04-10 00:00:00 Telephone Cheikh Boyle [facility] 1.2.840.114 350.1.13.10 4.2.7.2.686 [id number] 044 [id number] [facility] 2023-04-04 15:40:00 2023-04-04 15:40:00 Outpatient R [facility] [id number] [facility] 2023-04-04 15:00:00 2023-04-04 15:00:00 Outpatient R UNKNOWN, ATTENDING [facility] [id number] [facility] 2023-04-03 15:40:00 2023-04-03 16:07:45 Outpatient R SERA WORTHY [facility] [id number] [facility] 2023-04-03 15:40:00 2023-04-03 16:00:00 Urgent Care Sera Worthy Unknown, [facility]ending [facility] 1.2.840.114 350.1.13.10 4.2.7.2.686 [id number] 370 [id number] [facility] 2023-04-03 15:45:00 2023-04-03 15:45:00 Outpatient R UNKNOWN, ATTENDING [facility] [id number] [facility] 2023-04-02 00:00:00 2023-04-02 00:00:00 Patient Secure Msg Doctor Unassigned, [place] [facility] 1.2.840.114 350.1.13.10 4.2.7.2.686 [id number] 134 [id number] [facility] 2023-04-01 13:40:00 2023-04-01 14:40:45 Outpatient R CHEIKH BOYLE [facility] [id number] [facility] 2023-04-01 13:40:00 2023-04-01 14:40:45 Office Visit Cheikh Boyle [facility] BUILD[facility] 1.2840.114 350.1.13.10 4.2.7.2.686 [id number] 044 [id number] [facility] 2023-04-01 00:00:00 2023-04-01 00:00:00 Case Management Jarrod Mercado [facility] 1.2840.114 350.1.13.10 4.2.7.2.686 [id number] 134 [id number] [facility] 2023-04-01 00:00:00 2023-04-01 00:00:00 Patient Secure Msg Cheikh Boyle [facility] 1..114 350.1.13.10 4.2.7.2.686 [id number] 044 [id number] [facility] 2023-03-31 00:00:00 2023-03-31 00:00:00 Letter (Out) Sabiha Vargas [facility] 1..114 350.1.13.10 4.2.7.2.686 [id number] 019 [id number] [facility] 2023-03-30 13:00:00 2023-03-30 13:53:48 Outpatient R JARROD MERCADO [facility] [id number] [facility] 2023-03-30 13:00:00 2023-03-30 13:53:48 Office Visit Jarrod Mercado [facility] BU[facility] 1.20.114 350.1.13.10 4.2.7.2.686 [id number] 134 [id number] [facility] 2023-03-30 10:00:00 2023-03-30 10:23:54 Laboratory Only Only, Ang Db Test Unknown, Attending Malena Garcia [facility] 1.2840.114 350.1.13.10 4.2.7.2.686 [id number] 370 [id number] [facility] 2023-03-30 00:00:00 2023-03-30 00:00:00 Letter (Out) Malena Garcia [facility] 1.2.840.114 350.1.13.10 4.2.7.2.686 [id number] 370 [id number] [facility] 2023-03-30 00:00:00 2023-03-30 00:00:00 Refill [facility] 1.2.840.114 350.1.13.10 4.2.7.2.686 [id number] 044 [id number] [facility] 2023-03-27 00:00:00 2023-03-27 00:00:00 Refill Frannie Smith [facility] 1.2.840.114 350.1.13.10 4.2.7.2.686 [id number] 134 [id number] [facility] 2023-03-27 00:00:00 2023-03-27 00:00:00 Refill Cheikh Boyle [facility] 1.2.840.114 350.1.13.10 4.2.7.2.686 [id number] 044 [id number] [facility] 2023-03-27 00:00:00 2023-03-27 00:00:00 Refill Cheikh Boyle [facility] 1.2.840.114 350.1.13.10 4.2.7.2.686 [id number] 044 [id number] [facility] 2023-03-25 00:00:00 2023-03-25 00:00:00 Patient Secure Frannie Smith [facility] 1.2.840.114 350.1.13.10 4.2.7.2.686 [id number] 134 [id number] [facility] 2023-03-24 00:00:00 2023-03-24 00:00:00 Telephone Frannie Smith [facility] 1..840.114 350.1.13.10 4.2.7.2.686 [id number] 134 [id number] [facility] 2023-03-21 00:00:00 2023-03-21 00:00:00 Telephone Kimmy Prieto [facility] 1.840.114 350.1.13.10 4.2.7.2.686 [id number] 019 [id number] [facility] 2023-03-20 15:40:00 2023-03-20 16:35:15 Urgent Care Sera Worthy, Attending [facility] 1..840.114 350.1.13.10 4.2.7.2.686 [id number] 370 [id number] [facility] 2023-03-20 16:00:00 2023-03-20 16:00:00 Outpatient R FLACO, ATTENDING [facility] [id number] [facility] 2023-02-27 14:40:00 2023-02-27 14:40:00 Outpatient R CHEIKH BOYLE [facility] [id number] [facility] 2023-02-18 00:00:00 2023-02-18 00:00:00 Patient Secure Msg Doctor Unassigned, [place] [facility] 1.2840.114 350.1.13.10 4.2.7.2.686 [id number] 044 [id number] [facility] 2023-02-11 11:20:00 2023-02-11 11:20:00 Outpatient R CHEIKH BOYLE [facility] [id number] [facility] 2023-02-04 00:00:00 2023-02-04 00:00:00 Telephone SushilFrannie castillo [facility] 1.2.840.114 350.1.13.10 4.2.7.2.686 [id number] 044 [id number] [facility] 2023-02-03 00:00:00 2023-02-03 00:00:00 Patient Secure Frannie Orellana [facility] 1.2.840.114 350.1.13.10 4.2.7.2.686 [id number] 134 [id number] [facility] 2023-02-03 00:00:00 2023-02-03 00:00:00 Patient Secure Frannie Orellana [facility] 1.2.840.114 350.1.13.10 4.2.7.2.686 [id number] 134 [id number] [facility] 2023-02-02 16:15:00 2023-02-02 16:30:00 Piece Work Inspector Visit [place], Adc Lab Main Frannie Smith [facility] 1.2.840.114 350.1.13.10 4.2.7.2.686 [id number] 353 [id number] [facility] 2023-02-02 15:45:00 2023-02-02 16:15:00 Office Visit Frannie Smith [facility] 1.2.840.114 350.1.13.10 4.2.7.2.686 [id number] 134 [id number] [facility] 2023-02-02 15:45:00 2023-02-02 16:02:01 [facility] [id number] [facility] 2023-02-02 00:00:00 2023-02-02 00:00:00 Orders Only Doctor Unassigned, [place] [facility] 1.2.840.114 350.1.13.10 4.2.7.2.686 [id number] [facility] 2023-01-07 09:45:00 2023-01-07 09:45:00 Outpatient FRANNIE JIMENEZ [facility] [id number] [facility] 2023-01-06 15:20:00 2023-01-06 15:20:00 Outpatient CHEIKH LIZAMA [facility] [id number] [facility] 2022-08-16 11:30:00 2022-08-16 11:47:21 Outpatient CAMELIA LONGORIA [facility] [id number] [facility] 2022-08-16 11:30:00 2022-08-16 11:45:00 Laboratory Only Only, Ang Db Test Unknown, Attending [facility] 1..840.114 350.1.13.10 4.2.7.2.686 [id number] 370 [id number] [facility] 2022-08-04 18:18:00 2022-08-04 20:38:00 Emergency X NII [facility] ERT [id number] [facility] 2022-08-04 18:18:00 2022-08-04 20:38:[address] [facility] 1..840.114 350.1.13.10 4.2.7.2.686 [id number] [facility] 2022-05-12 09:39:00 2022-05-12 12:15:00 Emergency X CIARRA [facility] ERT [id number] [facility] 2022-05-12 09:39:00 2022-05-12 12:15:[address] [facility] 1..840.114 350.1.13.10 4.2.7.2.686 [id number] [id number] [facility] 2022-04-29 09:30:00 2022-04-29 09:30:00 Outpatient FRANNIE JIMENEZ [facility] [id number] [facility] 2022-04-23 14:30:00 2022-04-23 14:30:00 Outpatient R SARAH FRANNIE [facility] [id number] [facility] 2022-04-22 11:15:00 2022-04-22 11:15:00 [facility] [id number] [facility] 2022-04-08 10:00:00 2022-04-08 10:00:00 Outpatient R ADELINE WILLIAM [facility] [id number] [facility] 2022-04-03 08:30:00 2022-04-03 08:30:00 Outpatient Sona [facility] [id number] [facility] 2022-03-24 09:13:00 2022-03-24 09:37:00 Emergency X LIZANDRO [facility] ERT [id number] [facility] 2022-03-24 09:13:00 2022-03-24 09:37:[address] [facility] 1.2.840.114 350.1.13.10 4.2.7.2.686 [id number] [facility] 2022-02-21 00:00:00 2022-02-21 00:00:00 Outpatient R BRITTANY BELCHER [facility] [id number] [facility] 2022-02-20 15:30:00 2022-02-20 15:30:00 Outpatient JAN IRIZARRY [facility] [id number] [facility] 2022-02-18 14:30:00 2022-02-18 14:30:00 Outpatient R FRANNIE SMITH [facility] [id number] [facility] 2022-02-17 18:40:00 2022-02-17 21:13:00 Emergency [facility] [id number] [facility] 2022-02-17 18:40:00 2022-02-17 21:13:[address] [facility] 1..840.114 350.1.13.10 4.2.7.2.686 [id number] [facility] 2022-02-17 18:15:00 2022-02-17 18:35:00 Nurse Visit Nurse, [facility] 1..840.114 350.1.13.10 4.2.7.2.686 [id number] [facility] 2022-02-17 18:15:00 2022-02-17 18:15:00 [facility] [id number] [facility] 2022-01-28 15:30:00 2022-01-28 15:30:00 Outpatient R JAN ESTRADA [facility] [id number] [facility] 2022-01-27 00:00:00 2022-01-27 00:00:00 Letter (Out) Xochitl Kaur [facility] 1..840.114 350.1.13.10 4.2.7.2.686 [id number] [facility] 2022-01-26 13:40:00 2022-01-26 14:06:12 Outpatient R SHANNAN STEWARD [facility] [id number] [facility] 2022-01-26 13:40:00 2022-01-26 14:06:12 Urgent Care [facility] 1..840.114 350.1.13.10 4.2.7.2.686 [id number] [facility] 2022-01-26 00:00:00 2022-01-26 00:00:00 Letter (Out) Provider, [facility] 1.84114 350.1.13.10 4.2.7.2.686 [id number] [facility] 2022-01-23 14:00:00 2022-01-23 14:10:00 Imm/Inj Visit Vaccine, Ang Db Cbc Fam Dominic Peralta [facility] 1.114 350.1.13.10 4.2.7.2.686 [id number] [facility] 2022-01-23 14:00:00 2022-01-23 14:00:00 Outpatient R DOMINIC PERALTA [facility] [id number] [facility] 2022-01-22 14:40:00 2022-01-22 14:40:00 Outpatient CHEIKH LIZAMA [facility] [id number] [facility] 2021-12-27 00:00:00 2021-12-27 00:00:00 Outpatient R BRITTANY BELCHER [facility] [id number] [facility] 2021-11-28 00:00:00 2021-11-28 00:00:00 Letter (Out) Xochitl Kaur [facility] 1.114 350.1.13.10 4.2.7.2.686 [id number] [facility] 2021-11-27 15:15:00 2021-11-27 15:30:00 Laboratory Only Only, Ang Db Test Zaynab [facility] 1.84.114 350.1.13.10 4.2.7.2.686 [id number] [facility] 2021-11-27 15:15:00 2021-11-27 15:15:00 Outpatient R SERA WORTHY [facility] [id number] [facility] 2021-11-23 22:04:00 2021-11-24 04:27:00 Emergency X ARIANNA [facility] ERT [id number] [facility] 2021-11-23 22:04:00 2021-11-24 04:27:[address] [facility] 1.840.114 350.1.13.10 4.2.7.2.686 [id number] [facility] 2021-11-21 15:30:00 2021-11-21 16:15:19 Office Visit RoelBrittany rodriguez [facility] 1.84.114 350.1.13.10 4.2.7.2.686 [id number] [facility] 2021-11-21 15:30:00 2021-11-21 16:15:19 Outpatient R ROELJENNIFER BRITTANY [facility] [id number] [facility] 2021-11-21 15:30:00 2021-11-21 15:30:00 Outpatient R SIMI BRITTANY [facility] [id number] [facility] 2021-11-21 00:00:00 2021-11-21 00:00:00 Letter (Out) Simi Brittany [facility] 1..840.114 350.1.13.10 4.2.7.2.686 [id number] [facility] 2021-11-06 07:15:00 2021-11-07 09:35:00 Outpatient X ROELBRITTANY [facility] [id number] [facility] 2021-11-06 07:15:00 2021-11-07 09:35:00 Emergency MayerMicheal Brittany [facility] 1.840.114 350.1.13.10 4.2.7.2.686 [id number] [facility] 2021-10-04 00:00:00 2021-10-04 00:00:00 Letter (Out) Xochitl Kaur [facility] 1.840.114 350.1.13.10 4.2.7.2.686 [id number] [facility] 2021-10-03 17:20:00 2021-10-03 18:22:13 Outpatient R GAMALIEL GREER III [facility] [id number] [facility] 2021-09-19 00:00:00 2021-09-19 00:00:00 Patient Secure Mskindra AraceliCheikh SELF [facility] 1.840.114 350.1.13.10 4.2.7.2.686 [id number] [facility] 2021-09-14 20:00:00 2021-09-14 20:59:00 Emergency X [facility] ERT [id number] [facility] 2021-09-14 20:00:00 2021-09-14 20:59:[address] [facility] 1.840.114 350.1.13.10 4.2.7.2.686 [id number] [facility] 2021-09-09 15:35:00 2021-09-09 17:06:00 Emergency X Susana [facility] ERT [id number] [facility] 2021-09-09 15:35:00 2021-09-09 17:06:[address] [facility] 1.840.114 350.1.13.10 4.2.7.2.686 [id number] [facility] 2021-09-09 00:00:00 2021-09-09 00:00:00 Orders Only Doctor Unassigned, [place] [facility] 1.114 350.1.13.10 4.2.7.2.686 [id number] [facility] 2021-08-27 11:45:00 2021-08-27 12:00:00 Laboratory Only Only, Ang Db Test Shannan Steward [facility] 1.84114 350.1.13.10 4.2.7.2.686 [id number] [facility] 2021-08-27 11:45:00 2021-08-27 11:59:56 Outpatient R SHANNAN STEWARD [facility] [id number] [facility] 2021-08-27 00:00:00 2021-08-27 00:00:00 Letter (Out) Provider, Urgent Care Day [facility] 1.84114 350.1.13.10 4.2.7.2.686 [id number] [facility] 2021-08-19 18:20:00 2021-08-19 19:19:45 Outpatient R JOJO MINOR [facility] [id number] [facility] 2021-08-19 18:20:00 2021-08-19 18:40:00 Urgent Care Jojo Minor Amanda [facility] 1.84114 350.1.13.10 4.2.7.2.686 [id number] [facility] 2021-08-19 00:00:00 2021-08-19 00:00:00 Orders Only Doctor Unassigned, [place] [facility] 1.114 350.1.13.10 4.2.7.2.686 [id number] [facility] 2021-08-01 10:20:00 2021-08-01 10:40:00 Urgent Care Tomasa William Rania [facility] 1.2.840.114 350.1.13.10 4.2.7.2.686 [id number] [facility] 2021-08-01 10:20:00 2021-08-01 10:20:00 Outpatient R SERA WORTHY [facility] [id number] [facility] 2021-06-27 09:00:00 2021-06-27 09:00:00 Outpatient R FRANNIE SMITH [facility] [id number] [facility] 2021-06-09 14:25:24 2021-06-09 14:45:24 Urgent [facility] 1..840.114 350.1.13.10 4.2.7.2.686 [id number] [facility] 2021-06-09 14:40:00 2021-06-09 14:40:00 Outpatient R SERA WORTHY [facility] [id number] [facility] 2021-04-21 00:00:00 2021-04-21 00:00:00 Telephone Kaley Coello [facility] 1..840.114 350.1.13.10 4.2.7.2.686 [id number] [facility] 2021-04-20 11:16:01 2021-04-20 11:52:08 Urgent Care [facility] Medical Office Building 1.2.840.114 350.1.13.10 4.2.7.2.686 [id number] [facility] 2021-04-20 11:20:00 2021-04-20 11:20:00 Outpatient R STEWARTTOMASA [facility] [id number] [facility] 2021-04-19 18:56:00 2021-04-19 19:59:00 Emergency Ciarra Frank [facility] 1.2.840.114 350.1.13.10 4.2.7.2.686 [id number] [facility] 2021-04-12 15:00:00 2021-04-12 15:00:00 Outpatient CHEIKH LIZAMA [facility] [id number] [facility] 2021-03-17 20:00:00 2021-03-17 20:00:00 Outpatient TRUPTI STERLING [facility] [id number] [facility] 2021-01-30 11:15:00 2021-01-30 11:15:00 Outpatient JAN IRIZARRY [facility] [id number] [facility] 2021-01-24 08:00:00 2021-01-24 08:00:00 Outpatient FRANNIE JIMENEZ [facility] [id number] [facility] 2021-01-21 10:00:00 2021-01-21 10:00:00 Outpatient FRANNIE JIMENEZ [facility] [id number] [facility] 2021-01-17 16:00:00 2021-01-17 16:00:00 Outpatient CHEIKH LIZAMA [facility] [id number] [facility] 2021-01-15 09:20:00 2021-01-15 09:20:00 Outpatient THIERNO INTERIANO HOWARD [facility] [id number] [facility] 2020-12-25 10:40:00 2020-12-25 10:40:00 Outpatient THIERNO INTERIANO HOWARD [facility] [id number] [facility] 2020-12-20 11:20:00 2020-12-20 11:20:00 Outpatient CHEIKH LIZAMA [facility] [id number] [facility] 2020-12-18 10:00:00 2020-12-18 10:00:00 Outpatient FRANNIE JIMENEZ [facility] [id number] [facility] 2020-12-10 00:00:00 2020-12-10 00:00:00 Outpatient FRANNIE JIMENEZ [facility] [id number] [facility] 2020-12-06 15:30:00 2020-12-06 15:30:00 Outpatient JAN IRIZARRY [facility] [id number] [facility] 2020-12-04 09:45:00 2020-12-04 09:45:00 Outpatient FRANNIE JIMENEZ [facility] [id number] [facility] 2020-11-27 14:30:00 2020-11-27 14:30:00 Outpatient TORY DAVALOS [facility] [id number] [facility] 2020-11-27 09:00:00 2020-11-27 09:00:00 Outpatient JAN IRIZARRY [facility] [id number] [facility] 2020-11-22 13:20:00 2020-11-22 13:20:00 Outpatient CHEIKH LIZAMA [facility] [id number] [facility] 2020-11-15 13:30:00 2020-11-15 13:30:00 Outpatient JAN IRIZARRY [facility] [id number] [facility] 2020-11-14 16:00:00 2020-11-14 16:00:00 Outpatient KEHINDE MORRISSEY [facility] [id number] [facility] 2020-11-08 11:00:00 2020-11-08 11:00:00 Outpatient JAN IRIZARRY [facility] [id number] [facility] 2020-10-25 00:00:00 2020-10-25 00:00:00 Patient Secure Jan Buck [facility] 1.2.840.114 350.1.13.10 4.2.7.2.686 [id number] [facility] 2020-10-17 16:20:00 2020-10-17 16:20:00 Outpatient R CHEIKH BOYLE [facility] [id number] [facility] 2020-10-17 16:00:00 2020-10-17 16:00:00 Outpatient R KEHINDE PATTERSON [facility] [id number] [facility] 2020-10-15 10:00:00 2020-10-15 10:00:00 Outpatient FRANNIE JIMENEZ [facility] [id number] [facility] 2020-08-24 17:20:00 2020-08-24 17:20:00 Outpatient R [facility] [id number] [facility] 2020-08-16 00:00:00 2020-08-16 00:00:00 Patient Secure Msg Doctor Unassigned, [place] [facility] 1.2.840.114 350.1.13.10 4.2.7.2.686 [id number] [facility] 2020-08-06 14:15:00 2020-08-06 14:15:00 Outpatient FRANNIE JIMENEZ [facility] [id number] [facility] 2020-07-02 10:45:00 2020-07-02 10:45:00 Outpatient FRANNIE JIMENEZ [facility] [id number] [facility] 2020-06-22 11:20:00 2020-06-22 11:20:00 Outpatient R CHEIKH BOYLE [facility] [id number] [facility] 2020-06-18 14:40:00 2020-06-18 14:40:00 Outpatient RAYO WASHINGTON [facility] [id number] [facility] 2020-06-15 10:00:00 2020-06-15 10:00:00 Outpatient CHEIKH LIZAMA [facility] [id number] [facility] 2020-05-18 15:40:00 2020-05-18 15:40:00 Outpatient R JENNIECHEIKH PALOMINO [facility] [id number] [facility] 2020-05-14 00:00:00 2020-05-14 00:00:00 Patient Secure Msg Doctor Unassigned, [place] [facility] 1.2.840.114 350.1.13.10 4.2.7.2.686 [id number] [facility] 2020-03-20 14:00:00 2020-03-20 14:00:00 Outpatient R MARCELOIVAN [facility] [id number] [facility] 2020-03-13 10:40:00 2020-03-13 10:40:00 Outpatient R JENNIEGEORGETTECHEIKH [facility] [id number] [facility] 2020-03-02 11:00:00 2020-03-02 11:00:00 Outpatient R AGUSTO DARLING SHIWAN [facility] [id number] [facility] 2020-02-29 10:00:00 2020-02-29 10:00:00 Outpatient R CHEIKH BOYLE [facility] [id number] [facility] 2020-02-27 13:00:00 2020-02-27 13:00:00 Outpatient R JENNIEDEDECHEIKH FISHER [facility] [id number] [facility] 2020-01-24 07:37:42 2020-01-24 12:12:00 Emergency X BERTIN [facility] ERT [id number] [facility] 2020-01-11 13:00:00 2020-01-11 13:00:00 Outpatient R NEAL OROZCO [facility] [id number] [facility] 2020-01-04 14:30:00 2020-01-04 14:30:00 Outpatient R NEAL OROZCO [facility] [id number] [facility] 2020-01-03 14:00:00 2020-01-03 14:00:00 [facility] [id number] [facility] 2019-12-20 14:00:00 2019-12-20 14:00:00 Outpatient R IVAN ROBERTSON [facility] [id number] [facility] 2019-12-15 12:30:00 2019-12-15 12:30:00 Outpatient R RED CRAMER [facility] [id number] [facility] 2019-12-12 10:00:00 2019-12-12 10:00:00 Outpatient R AGUSTO DARLING SHIWAN [facility] [id number] [facility] 2019-12-09 14:20:00 2019-12-09 14:20:00 Outpatient R CHEIKH BOYLE [facility] [id number] [facility] 2019-12-02 11:40:00 2019-12-02 11:40:00 Outpatient R AGUSTO DARLING SHIWAN [facility] [id number] [facility] 2019-12-01 09:00:00 2019-12-01 09:00:00 Outpatient R ALBA VALENTINE [facility] [id number] [facility] 2019-11-29 13:00:00 2019-11-29 13:00:00 Outpatient R ALBA VALENTINE [facility] [id number] [facility] 2019-11-15 09:45:00 2019-11-15 09:45:00 Outpatient R NEAL OROZCO [facility] [id number] [facility] 2019-11-11 10:40:00 2019-11-11 10:40:00 Outpatient R CHEIKH BOYLE [facility] [id number] [facility] 2019-11-04 13:20:00 2019-11-04 13:20:00 Outpatient CHEIKH LIZAMA [facility] [id number] [facility] 2019-11-01 10:00:00 2019-11-01 10:00:00 Outpatient CHEIKH LIZAMA [facility] [id number] [facility] 2019-10-28 12:40:00 2019-10-28 12:40:00 Outpatient CHEIKH LIZAMA [facility] [id number] [facility] 2019-10-25 11:20:00 2019-10-25 11:20:00 Outpatient THIERNO INTERIANO HOWARD [facility] [id number] [facility] 2019-10-21 13:00:00 2019-10-21 13:00:00 Outpatient R AGUSTO DARLING SHIWAN [facility] [id number] [facility] 2019-10-19 09:50:34 2019-10-19 23:59:00 Outpatient CHEIKH LIZAMA [facility] [id number] [facility] 2019-10-17 11:34:18 2019-10-17 16:01:00 Emergency X Susana [facility] ERT [id number] [facility] 2019-10-17 11:20:00 2019-10-17 11:20:00 Outpatient THIERNO INTERIANO HOWARD [facility] [id number] [facility] 2019-10-14 11:00:00 2019-10-14 11:00:00 Outpatient FRANNIE JIMENEZ [facility] [id number] [facility] 2019-10-12 15:40:00 2019-10-12 15:40:00 Outpatient CHEIKH LIZAMA [facility] [id number] [facility] 2019-10-11 13:30:00 2019-10-11 13:30:00 Outpatient JAN IRIZARRY [facility] [id number] [facility] 2019-10-06 15:40:00 2019-10-06 15:40:00 Outpatient CHEIKH LIZAMA [facility] [id number] [facility] 2019-08-31 14:47:13 2019-09-06 18:06:25 Office Visit Cheikh Boyle [facility] 1.2.840.114 350.1.13.10 4.2.7.2.686 [id number] [facility] 2019-09-06 13:53:00 2019-09-06 14:53:00 Piece Work Inspector Visit Tech, Adc Cardio Fac 2, Adc Cardio Fac [facility] 1.2.840.114 350.1.13.10 4.2.7.2.686 [id number] [facility] 2019-09-06 08:52:38 2019-09-06 09:16:32 Office Visit Sushiljonathan Frannie [facility] 1.2.840.114 350.1.13.10 4.2.7.2.686 [id number] [facility] 2019-09-01 09:38:47 2019-09-01 16:33:00 Emergency AuNii izaguirre [facility] 1.2.840.114 350.1.13.10 4.2.7.2.686 [id number] [facility] 2019-08-25 13:03:52 2019-08-25 15:25:05 Ancillary Visit Melisa Perez Craig L [facility] 1.2.840.114 350.1.13.10 4.2.7.2.686 [id number] [facility] 2019-08-25 00:00:00 2019-08-25 00:00:00 Telephone Cheikh [facility] 1.2.840.114 350.1.13.10 4.2.7.2.686 [id number] [facility] 2019-08-23 00:00:00 2019-08-23 00:00:00 Telephone Nicanor Hall [facility] 1.2.840.114 350.1.13.10 4.2.7.2.686 [id number] [facility] 2019-08-16 06:57:53 2019-08-16 09:44:00 Emergency X [facility] ERT [id number] [facility] 2019-04-22 09:04:40 2019-04-22 09:52:08 Office Visit AlexGamaliel Elfego [facility] Office Building [facility] 1.2.840.114 350.1.13.10 4.2.7.2.686 [id number] [facility] 2019-04-22 00:00:00 2019-04-22 00:00:00 Orders Only Doctor Unassigned, [place] [facility] 1.2.840.114 350.1.13.10 4.2.7.2.686 [id number] [facility] 2019-04-11 09:18:53 2019-04-11 09:57:00 Emergency Filomena Torres [facility] 1.2.840.114 350.1.13.10 4.2.7.2.686 [id number] [facility] 2019-04-11 00:00:00 2019-04-11 00:00:00 Orders Only Doctor Unassigned, [place] [facility] 1.2.840.114 350.1.13.10 4.2.7.2.686 [id number] [facility] Results Test Description Test Time Test Comments Results Result Co mments Source [facility] SARS-COV-2 ANTIGEN (BINAX NOW)2023-12-04 17:31:00* Test Item Value Reference Range Interpretation Comme nts POCT SARS-COV-2 ANTIGEN (test code = 44502-3) Not Detected Not Detected On board controls acceptable with C Line (test code = 3574) Yes TYRON (test code = TYRON) accurate developme nt and interpretation of all internal controls Lab Interpretation (test code = 29512-6) Normal [facility] SARS-COV-2 ANTIGEN (BINAX NOW)2023-09-15 18:43:00* Test Item Value Reference Range Interpretation Comme nts POCT SARS-COV-2 ANTIGEN (tavon t code = 83809-9) Not Detected Not Detected On board controls acceptable with C Line (test code = 3574) Yes Lab Interpretation (test cod e = 78807-6) Normal [facility] SARS-COV-2 ANTIGEN (BINAX NOW)2023-09-15 18:43:00* Test Item Value Reference Range Interpretation Comme nts POCT SARS-COV-2 ANTIGEN (tavon t code = 47598-6) Not Detected Not Detected On board controls acceptable with C Line (test code = 3574) Yes Lab Interpretation (test cod e = 27619-1) Normal [facility] SARS-COV-2 ANTIGEN (BINAX NOW)2023-09-15 18:43:00* Test Item Value Reference Range Interpretation Comme nts POCT SARS-COV-2 ANTIGEN (tavon t code = 13346-8) Not Detected Not Detected On board controls acceptable with C Line (test code = 3574) Yes Lab Interpretation (test cod e = 00656-3) Normal [facility] Metabolic Panel (NA, K, CL, CO2, GLUCOSE, BUN, CREATININE, CA) - On Postoperative Day # 06467-69-78 11:17:22* Test Item Value Reference Range Interpretation Comme nts NA (test code = 6139074755) 138 mmol/L 135-145 K (test code = 5139581064) 4.2 mmol/L 3.5-5.0 CL (test code = 8112056812) 107 mmol/L 98-108 CO2 TOTAL (test code = 0593191763) 20 mmol/L 23-31 L AGAP (test code = 7876752100) 11 2-16 BUN (test code = 9588000697) 7 mg/dL 7-23 GLUCOSE (test code = 8176913323) 110 mg/dL 70-110 CREATININE (test code = 1949365141) 0.62 mg/dL 0.50-1.04 CALCIUM (test code = 3026955116) 9.0 mg/dL 8.6-10.6 eGFR (test code = 66754-5) 117.8 mL/min/1.73m2 CKD-EPI eGFR (2020). Assuming creatinine has been stable day-to-day for at least three months, the eGFR indicates Category G1 (>= 90 mL/min/1.73 m2) Lab Interpretation (test code = 17810-4) Abnormal [facility] Metabolic Panel (NA, K, CL, CO2, GLUCOSE, BUN, CREATININE, CA) - On Postoperative Day # 11:17:22* Test Item Value Reference Range Interpretation Comme nts NA (test code = 0955624053) 138 mmol/L 135-145 K (test code = 7146840524) 4.2 mmol/L 3.5-5.0 CL (test code = 3781842197) 107 mmol/L 98-108 CO2 TOTAL (test code = 6994471628) 20 mmol/L 23-31 L AGAP (test code = 7062666756) 11 2-16 BUN (test code = 3802894162) 7 mg/dL 7-23 GLUCOSE (test code = 0620053747) 110 mg/dL 70-110 CREATININE (test code = 8434731801) 0.62 mg/dL 0.50-1.04 CALCIUM (test code = 9817358057) 9.0 mg/dL 8.6-10.6 eGFR (test code = 10868-5) 117.8 mL/min/1.73m2 CKD-EPI eGFR (2020). Assuming creatinine has been stable day-to-day for at least three months, the eGFR indicates Category G1 (>= 90 mL/min/1.73 m2) Lab Interpretation (test code = 39853-3) Abnormal [facility] with Differential - On Postoperative Day # 10:49:19* Test Item Value Reference Range Interpretation [...] 34.0 g/dL 31.6-35.1 RDW-SD (test code = 43615-1) 38.8 fL 39.0-49.9 L RDW-CV (test code = 788-0) 12.0 % 12.0-15.5 PLT (test code = 777-3) 339 See_Comment [Automated messa ge] The system which generated this result transmitted reference range: 166 - 358 10*3/?L. The reference range was not used to interpret this result as normal/abnormal. MPV (test code = 02627-7) 9.0 fL 9.5-12.9 L NRBC/100 WBC (test code = 9706714236) 0.0 See_Comment [Automated [employer] ssage] The system which generated this result transmitted reference range: 0.0 - 10.0 /100 WBCs. The reference range was not used to interpret this result as normal/abnormal. NRBC x10^3 (test code = 1153478744) See_Comment [Automated 139shopa ge] The system which generated this result transmitted reference range: 10*3/?L. The reference range was not used to interpret this result as normal/abnormal. GRAN MAT (NEUT) % (test code = 770-8) 82.7 % IMM GRAN % (test code = 0181802643) 0.30 % LYMPH % (test code = 736-9) 11.4 % MONO % (test code = 5905-5) 5.4 % EOS % (test code = 713-8) 0.0 % BASO % (test code = 706-2) 0.2 % GRAN MAT x10^3(ANC) (test code = 5970798974) 9.84 10*3/uL 1.88-7.09 H IMM GRAN x10^3 (test code = 6976019467) 0.04 10*3/uL 0.00-0.06 LYMPH x10^3 (test code = 731-0) 1.36 10*3/uL 1.32-3.29 MONO x10^3 (test code = 742-7) 0.64 10*3/uL 0.33-0.92 EOS x10^3 (test code = 711-2) 0.03-0.39 L BASO x10^3 (test code = 704-7) 0.01-0.07 Lab Interpretation (test code = 06288-4) Abnormal [facility] with Differential - On Postoperative Day # 86688-58-10 10:49:19* Test Item Value Reference Range Interpretation [...] 34.0 g/dL 31.6-35.1 RDW-SD (test code = 92519-6) 38.8 fL 39.0-49.9 L RDW-CV (test code = 788-0) 12.0 % 12.0-15.5 PLT (test code = 777-3) 339 See_Comment [Automated messa ge] The system which generated this result transmitted reference range: 166 - 358 10*3/?L. The reference range was not used to interpret this result as normal/abnormal. MPV (test code = 96790-8) 9.0 fL 9.5-12.9 L NRBC/100 WBC (test code = 1677845105) 0.0 See_Comment [Automated me ssage] The system which generated this result transmitted reference range: 0.0 - 10.0 /100 WBCs. The reference range was not used to interpret this result as normal/abnormal. NRBC x10^3 (test code = 1624698066) See_Comment [Automated messa ge] The system which generated this result transmitted reference range: 10*3/?L. The reference range was not used to interpret this result as normal/abnormal. GRAN MAT (NEUT) % (test code = 770-8) 82.7 % IMM GRAN % (test code = 0090220224) 0.30 % LYMPH % (test code = 736-9) 11.4 % MONO % (test code = 5905-5) 5.4 % EOS % (test code = 713-8) 0.0 % BASO % (test code = 706-2) 0.2 % GRAN MAT x10^3(ANC) (test code = 2622573998) 9.84 10*3/uL 1.88-7.09 H IMM GRAN x10^3 (test code = 3156415963) 0.04 10*3/uL 0.00-0.06 LYMPH x10^3 (test code = 731-0) 1.36 10*3/uL 1.32-3.29 MONO x10^3 (test code = 742-7) 0.64 10*3/uL 0.33-0.92 EOS x10^3 (test code = 711-2) 0.03-0.39 L BASO x10^3 (test code = 704-7) 0.01-0.07 Lab Interpretation (test code = 21570-8) [facility] [id number] 16:26:01BETA HCG<2.39Non- female and male patients: <5 mIU/mL09/01/2023 10:26 AM [facility] Gestational Age ?Range (mIU/mL) 1-10 ?Weeks ?11-51979302-64 Weeks ?97574-45174161-27 Weeks ?6433-39357828-63 Weeks ?1531-757857 Biotin has been reported to cause a negative bias, interpret resultsrelative to patient's use of biotin.[facility] HCG, QUANTITATIVE, [id number] 16:26:01BETA HCG<2.39Non- female and male patients: <5 mIU/mL09/01/2023 10:26 AM [facility] Gestational Age ?Range (mIU/mL) 1-10 ?Weeks ?26-98184437-02 Weeks ?04498-00635390-85 Weeks ?6912-44115458-22 Weeks ?1531-461946 Biotin has been reported to cause a negative bias, interpret resultsrelative to patient's use of biotin. [facility] [id number] 23:24:46* Test Item Value Reference Range Interpretation Comme nts WBC (test code = 6690-2) 7.16 See_Comment [Automated [employer]] The system which generated this result transmitted reference range: 4.30 - 11.10 10*3/?L. The reference range was not used to interpret this result as normal/abnormal. RBC (test code = 789-8) 4.43 See_Comment [Automated [employer]sh[employer]] The system which generated this result transmitted [...] 34.3 g/dL 31.6-35.1 RDW-SD (test code = 62667-9) 38.7 fL 39.0-49.9 L RDW-CV (test code = 788-0) 12.0 % 12.0-15.5 PLT (test code = 777-3) 343 See_Comment [Automated 139shopa ge] The system which generated this result transmitted reference range: 166 - 358 10*3/?L. The reference range was not used to interpret this result as normal/abnormal. MPV (test code = 74611-1) 8.8 fL 9.5-12.9 L NRBC/100 WBC (test code = 9616278919) 0.0 See_Comment [Automated [employer] ssage] The system which generated this result transmitted reference range: 0.0 - 10.0 /100 WBCs. The reference range was not used to interpret this result as normal/abnormal. NRBC x10^3 (test code = 8106317942) See_Comment [Automated 139shopa ge] The system which generated this result transmitted reference range: 10*3/?L. The reference range was not used to interpret this result as normal/abnormal. GRAN MAT (NEUT) % (test code = 770-8) 43.2 % IMM GRAN % (test code = 7172272763) 0.00 % LYMPH % (test code = 736-9) 47.6 % MONO % (test code = 5905-5) 6.8 % EOS % (test code = 713-8) 2.0 % BASO % (test code = 706-2) 0.4 % GRAN MAT x10^3(ANC) (test code = 5696055105) 3.09 10*3/uL 1.88-7.09 IMM GRAN x10^3 (test code = [id number]) 0.00-0.06 LYMPH x10^3 (test code = 731-0) 3.41 10*3/uL 1.32-3.29 H MONO x10^3 (test code = 742-7) 0.49 10*3/uL 0.33-0.92 EOS x10^3 (test code = 711-2) 0.14 10*3/uL 0.03-0.39 BASO x10^3 (test code = 704-7) 0.03 10*3/uL 0.01-0.07 Lab Interpretation (test code = 32491-1) [id number]:21[facility]* Test Item Value Reference Range Interpretation Comme nts POCT PREG (test code = 1605) Negative On board controls acceptable with C Line (test code = 3574) Yes POCT PREG LOT # (test code = 3575) PO[facility]REG TEST DATE ( test code = 3576[id number]:21:[facility]* Test Item Value Reference Range Interpretation Comme nts POCT PREG (test code = 1605) Negative On board controls acceptable with C Line (test code = 3574) Yes POCT PREG LOT # (test code = 3575) POCT PREG TEST DATE ( test code = 3576) [facility] PELVIS COMPLETE WITH [id number] 17:16:52EXAM: US PELVIS COMPLETE WITH TRANSVAGINAL HISTORY: 38 years-old Female presenting for AUB LMP = 06/08/2023 TECHNIQUE: Transabdominal and transvaginal ultrasound imaging and colorDoppler evaluation of the pelvis was performed. Pediatric Dietician images wereobtained for the record. COMPARISON: Ultrasound [...] Cul-de-sac: Small amount of free fluid is present.[facility] Test 2023-07-23 14:27:00* Test Item Value Reference Range Interpretation Comme nts POCT PREG (test code = 1605) Negative On board controls acceptable with C Line (test code = 3574) Yes POCT PREG LOT # (test code = 3575) POCT PREG TEST DATE ( test code = 3576) [facility] [id number] 14:27:00* Test Item Value Reference Range Interpretation Comme nts POCT PREG (test code = 1605) Negative On board controls acceptable with C Line (test code = 3574) Yes POCT PREG LOT # (test code = 3575) POCT PREG TEST DATE ( test code = 3576) [facility] MOLECULAR QYYVT0665-22-87 22:04:53* Test Item Value Reference Range Interpretation Comme nts POCT Molecular Strep (test c ode = 22160-2) Negative Negative Lab Interpretation (test cod e = 29910-8) [facility] 06:58:09* Test Item Value Reference Range Interpretation Comments D-DIMER (test code = 6770700991) See_Comment [Automated message] The system which generated [...] a diagnosis. Lab Interpretation (test code = 95845-2) [facility] C4864-33-24 06:32:18* Test Item Value Reference Range Interpretation Comme [facility] TR[facility]ONIN I (test code = 6569667444) 0.004 ng/mL <=0.034 TYRON (test code = [...] of biotin. Lab Interpretation (test code = 54733-2) [facility] 06:22:17* Test Item Value Reference Range Interpretation Comme nts LIPASE (test code = 0790130406) 105 U/L 0-220 Lab Interpretation (test cod e = 13316-2) [facility] METABOLIC PANEL (12293)2023-06-29 06:22:12* Test Item Value Reference Range Interpretation Comme nts NA (test code = 3446220165) 140 mmol/L 135-145 K (test code = 4079058307) 4.1 mmol/L 3.5-5.0 CL (test code = 5583168509) 104 mmol/L 98-108 CO2 TOTAL (test code = 3877652382) 29 mmol/L 23-31 AGAP (test code = 8811640763) 7 2-16 BUN (test code = 0234330440) 10 mg/dL 7-23 GLUCOSE (test code = 7750068380) 102 mg/dL 70-110 CREATININE (test code = 2453720250) 0.70 mg/dL 0.50-1.04 TOTAL BILI (test code = 2314975022) 0.4 mg/dL 0.1-1.1 CALCIUM (test code = 5436764037) 9.3 mg/dL 8.6-10.6 T PROTEIN (test code = 3941212258) 8.4 g/dL 6.3-8.2 H ALBUMIN (test code = 8211271357) 4.3 g/dL 3.5-5.0 ALK PHOS (test code = 9985204576) 82 U/L 34-122 ALTv (test code = 1742-6) 26 U/L 5-35 AST(SGOT) (test code = 0488631120) 27 U/L 13-40 eGFR (test code = 68259-7) 114.4 mL/min/1.73m2 CKD-EPI eGFR (2020). Assuming creatinine has been stable day-to-day for at least three months, the eGFR indicates Category G1 (>= 90 mL/min/1.73 m2) Lab Interpretation (test code = 49733-0) Abnormal [facility] WITH RREZ8209-05-26 06:07:18* Test Item Value Reference Range Interpretation Comme nts WBC (test code = 6690-2) 6.82 See_Comment [Automated 139shopa DueProps] The system which generated this result transmitted reference range: 4.30 - 11.10 10*3/?L. The reference range was not used to interpret this result as normal/abnormal. RBC (test code = 789-8) 4.39 See_Comment [Automated 139shopa DueProps] The system which generated this result transmitted [...] 34.8 g/dL 31.6-35.1 RDW-SD (test code = 57985-4) 38.2 fL 39.0-49.9 L RDW-CV (test code = 788-0) 11.8 % 12.0-15.5 L PLT (test code = 777-3) 353 See_Comment [Automated 139shopa DueProps] The system which generated this result transmitted reference range: 166 - 358 10*3/?L. The reference range was not used to interpret this result as normal/abnormal. MPV (test code = 51479-7) 9.0 fL 9.5-12.9 L NRBC/100 WBC (test code = 3249703468) 0.0 See_Comment [Automated me ssage] The system which generated this result transmitted reference range: 0.0 - 10.0 /100 WBCs. The reference range was not used to interpret this result as normal/abnormal. NRBC x10^3 (test code = 8675434027) See_Comment [Automated messa ge] The system which generated this result transmitted reference range: 10*3/?L. The reference range was not used to interpret this result as normal/abnormal. GRAN MAT (NEUT) % (test code = 770-8) 35.0 % IMM GRAN % (test code = 4626630623) 0.30 % LYMPH % (test code = 736-9) 53.8 % MONO % (test code = 5905-5) 7.6 % EOS % (test code = 713-8) 2.9 % BASO % (test code = 706-2) 0.4 % GRAN MAT x10^3(ANC) (test code = 7500594172) 2.38 10*3/uL 1.88-7.09 IMM GRAN x10^3 (test code = 5093518056) 0.00-0.06 LYMPH x10^3 (test code = 731-0) 3.67 10*3/uL 1.32-3.29 H MONO x10^3 (test code = 742-7) 0.52 10*3/uL 0.33-0.92 EOS x10^3 (test code = 711-2) 0.20 10*3/uL 0.03-0.39 BASO x10^3 (test code = 704-7) 0.03 10*3/uL 0.01-0.07 Lab Interpretation (test code = 19782-9) Abnormal [facility] MOLECULAR EOP4628-70-64 21:21:49* Test Item Value Reference Range Interpretation Comme nts POCT Molecular FluA (test co de = 25996-2) Negative Negative POCT Molecular FluB (test co de = 34260-6) Negative Negative Lab Interpretation (test cod e = 93604-8) Normal [facility] SARS-COV-2 ANTIGEN (BINAX NOW)2023-05-22 21:02:00* Test Item Value Reference Range Interpretation Comme nts POCT SARS-COV-2 ANTIGEN (test code = 93624-7) Not Detected Not Detected On board controls acceptable with C Line (test code = 3574) Yes TYRON (test code = TYRON) accurate developme nt and interpretation of all internal controls Lab Interpretation (test code = 22882-9) [facility]E)2023-05-16 01:27:12* Test Item Value Reference Range Interpretation Comme nts Height (test code = 6720031615) 66 in Weight (test code = 2402991768) 255 lbs Systolic BP (test code = 7999095257) 117 mmHg Diastolic BP (test code = 7128037501) 71 mmHg Heart Rate (test code = 9726689191) 93 bpm Ao root diam (test code = 4460028426) 2.80 cm Aortic root (test code = 9857422921) 2.8 cm Ao root annulus (test code = 0850021795) 2.8 cm BSA (test code = 1971316992) 2.22 m2 LVOT diameter (test code = 8099760155) 2.23 cm LVOT area (test code = 3503412126) 3.90 cm2 LA size (test code = 2445449748) 3.1 cm ACS (test code = 2313202570) 2.25 cm LVIDD (test code = 3597364117) 4.20 cm Left Ventricular End Diastolic Volume by Teichholz Method (test code = 4472693) 78.5 mL IVS (test code = 0228638864) 0.86 cm Interventricular Septum Diastolic Thickness by 2D (test code = 8514537) 0.86 cm LVPWD (test code = 0080849752) 0.77 cm PW (test code = 7294851286) 0.77 cm 0.6-1.1 EF(Teich) (test code = 2058834779) 60.00 % LVIDS (test code = 5432222757) 2.90 cm Left Ventricular End Systolic Volume by Teichholz Method (test code = 5484491) 31.4 mL FS (test code = 5173759408) 32 % EF - 2D (test code = 88713041) 60.00 % TR Peak Darek (test code = 5835526231) 275.9 cm/s Triscuspid Valve Regurgitation Peak Gradient (test code = 8314828568) 30.5 mmHg PV PEAK VELOCITY (test code = 3368958693) 104.3 cm/s PV peak gradient (test code = 7181560489) 4.4 mmHg LAV(MOD-sp4) (test code = 2541065108) 28.30 mL MV E-F slope (test code = 1915940481) 47.10 cm/s MV Peak E Darek (test code = 2333953040) 59.7 cm/s MV Peak A Darek (test code = 1558671939) 65.0 cm/s E/A ratio (test code = 5126973796) 0.92 ratio MV valve area p 1/2 method (test code = 3489058971) 4.20 cm2 MV dec slope (test code = 7387844655) 338.50 cm/s2 MV P1/2t max darek (test code = 2565295469) 60.30 cm/s MR max PG (test code = 6541252132) 58.70 mm[Hg] MR max darek (test code = 7646564218) 383.00 cm/s Mr max darek (test code = 0639458870) 383.0 m/s LVOT stroke volume (test code = 4270121938) 79.00 cm3 LVOT peak darek (test code = 0156543727) 128.4 cm/s LVOT mn grad (test code = 9925098730) 2.8 mmHg AV LVOT peak gradient (test code = 1532319251) 6.6 mmHg LVOT peak VTI (test code = 3016224132) 20.2 cm LV V1 mean (test code = 9022629353) 75.70 cm/s Aortic valve mean velocity (test code = 8144785890) 94.9 cm/s Ao peak darek (test code = 6438652075) 158.0 cm/s Ao VTI (test code = 6338088973) 25.8 cm AV area by cont VTI (test code = 2029192679) 3.1 cm2 AV area peak darek (test code = 4790141285) 3.2 cm2 Ao max PG (test code = 4029381273) 10.00 mm[Hg] AV peak gradient (test code = 0114541490) 10.0 mmHg AV valve area (test code = 5446727324) 3.10 cm2 AV mean gradient (test code = 2740703920) 4.3 mmHg LA Volume Index (BP) (test code = 8715541749) 15.3 mL/m2 LA volume (BP) (test code = 9079150711) 33.9 mL LAV(MOD-sp2) (test code = 2445571716) 39.70 mL Radiology Study observation (narrative) (test code = 41089-3) TYRON (test code = TYRON) ?Left?Ventricle: Left [...] 2D, color flow Doppler and spectral Doppler. [facility] SARS-COV-2 ANTIGEN (BINAX NOW)2023-04-03 20:55:00* Test Item Value Reference Range Interpretation Comme nts POCT SARS-COV-2 ANTIGEN (test code = 83273-5) Not Detected Not Detected On board controls acceptable with C Line (test code = 3574) Yes TYRON (test code = TYRON) accurate developme nt and interpretation of all internal controls Lab Interpretation (test code = 04331-2) Normal [facility] SARS-COV-2 ANTIGEN (BINAX NOW)2023-03-20 21:30:00* Test Item Value Reference Range Interpretation Comme nts POCT SARS-COV-2 ANTIGEN (tavon t code = 96634-3) Not Detected Not Detected On board controls acceptable with C Line (test code = 3574) Yes Lab Interpretation (test cod e = 52364-9) Normal [facility] RHYS7425-21-94 20:54:00* Test Item Value Reference Range Interpretation Comme nts POCT PREG (test code = 1605) Negative On board controls acceptable with C Line (test code = 3574) Yes POCT PREG LOT # (test code = 3575) POCT PREG TEST DATE ( test code = 3576) [facility], NRXPR4781-72-28 01:04:20* Test Item Value Reference Range Interpretation Comme nts PREG SERUM (test code = 5505019858) Negative TYRON (test code = TYRON) Less than 10 IU/L. ?If low titer or ectopic is suspected, resubmit specimen in 48-72 hours. [facility]. METABOLIC PANEL (15481)2022-02-18 00:59:51* Test Item Value Reference Range Interpretation Comme nts NA (test code = 4626953604) 139 mmol/L 135-145 K (test code = 6016357258) 4.2 mmol/L 3.5-5 CL (test code = 1122963160) 104 mmol/L 98-108 CO2 TOTAL (test code = 4384566777) 27 mmol/L 23-31 AGAP (test code = 4069920345) 2-16 BUN (test code = 0131013876) 9 mg/dL 7-23 GLUCOSE (test code = 0840299488) 95 mg/dL 70-110 CREATININE (test code = 5907207456) 0.78 mg/dL 0.5-1.04 TOTAL BILI (test code = 3680353676) 0.5 mg/dL 0.1-1.1 CALCIUM (test code = 8154916344) 9.2 mg/dL 8.6-10.6 T PROTEIN (test code = 0737602174) 7.6 g/dL 6.3-8.2 ALBUMIN (test code = 3473460083) 4.5 g/dL 3.5-5 ALK PHOS (test code = 2841897838) 65 U/L 34-122 ALTv (test code = 1742-6) 22 U/L 5-35 AST(SGOT) (test code = 1980231305) 23 U/L 13-40 eGFR (test code = 7038315514) mL/min/1.73m2 TYRON (test code = TYRON) Association [...] or urine or abnormalities in imaging tests). [facility] WITH HFMO6763-57-65 00:41:49* Test Item Value Reference Range Interpretation Comme nts WBC (test code = 6690-2) See_Comment [Automated messa ge] The system which generated this result transmitted reference range: 4.30 - 11.10 10*3/?L. The reference range was not used to interpret this result as normal/abnormal. RBC (test code = 789-8) See_Comment [Automated 139shopa ge] The system which generated this result [...] 33.6 g/dL 31.6-35.1 RDW-SD (test code = 54118-2) 40.7 fL 39-49.9 RDW-CV (test code = 788-0) 12.2 % 12-15.5 PLT (test code = 777-3) See_Comment [Automated 139shopa ge] The system which generated this result transmitted reference range: 166 - 358 10*3/?L. The reference range was not used to interpret this result as normal/abnormal. MPV (test code = 49393-8) 9.6 fL 9.5-12.9 NRBC/100 WBC (test code = 7820554033) See_Comment [Automated me ssage] The system which generated this result transmitted reference range: 0.0 - 10.0 /100 WBCs. The reference range was not used to interpret this result as normal/abnormal. NRBC x10^3 (test code = 1094831953) See_Comment [Automated me ssage] The system which generated this result transmitted reference range: 10*3/?L. The reference range was not used to interpret this result as normal/abnormal. GRAN MAT (NEUT) % (test code = 770-8) 37.5 % IMM GRAN % (test code = 0771809163) 0.20 % LYMPH % (test code = 736-9) 50.8 % MONO % (test code = 5905-5) 8.7 % EOS % (test code = 713-8) 2.1 % BASO % (test code = 706-2) 0.7 % GRAN MAT x10^3(ANC) (test code = 2082256739) 2.10 10*3/uL 1.88-7.09 IMM GRAN x10^3 (test code = 6108869271) 0-0.06 LYMPH x10^3 (test code = 731-0) 2.85 10*3/uL 1.32-3.29 MONO x10^3 (test code = 742-7) 0.49 10*3/uL 0.33-0.92 EOS x10^3 (test code = 711-2) 0.12 10*3/uL 0.03-0.39 BASO x10^3 (test code = 704-7) 0.04 10*3/uL 0.01-0.07 [facility] TYKY1258-89-43 00:22:00* Test Item Value Reference Range Interpretation Comme nts POCT PREG (test code = 1605) negative Lab Interpretation (test cod e = 79140-7) Normal [facility] Metabolic Wojfs7232-02-02 03:45:37* Test Item Value Reference Range Interpretation Comme nts NA (test code = 7559036805) 140 mmol/L 135-145 K (test code = 1430768156) 3.8 mmol/L 3.5-5.0 CL (test code = 1760989871) 104 mmol/L 98-108 CO2 TOTAL (test code = 8505889567) 24 mmol/L 23-31 AGAP (test code = 7750458381) 2-16 BUN (test code = 4868969112) 12 mg/dL 7-23 GLUCOSE (test code = 4302282639) 94 mg/dL 70-110 CREATININE (test code = 9984946857) 0.92 mg/dL 0.50-1.04 TOTAL BILI (test code = 0010521035) 1.0 mg/dL 0.1-1.1 CALCIUM (test code = 8560652491) 8.9 mg/dL 8.6-10.6 T PROTEIN (test code = 4909814904) 8.1 g/dL 6.3-8.2 ALBUMIN (test code = 4991926069) 4.8 g/dL 3.5-5.0 ALK PHOS (test code = 6672775126) 68 U/L 34-122 ALTv (test code = 1742-6) 19 U/L 5-35 AST(SGOT) (test code = 7028682015) 32 U/L 13-40 eGFR (test code = 2939047771) mL/min/1.73m2 TYRON (test code = TYRON) Association [...] or urine or abnormalities in imaging tests). [facility] Hospital[facility], Zzuow1817-33-62 03:44:57* Test Item Value Reference Range Interpretation Comme nts LIPASE (test code = 2514388736) 64 U/L 0-220 Lab Interpretation (test cod e = 59391-6) Normal [facility] HospitalCB with Gbpimabcklrb1704-24-29 03:36:15* Test Item Value Reference Range Interpretation Comme nts WBC (test code = 6690-2) See_Comment [Automated messa ge] The system which generated this result transmitted reference range: 4.30 - 11.10 10*3/?L. The reference range was not used to interpret this result as normal/abnormal. RBC (test code = 789-8) See_Comment [Automated messa ge] The system which [...] 33.9 g/dL 31.6-35.1 RDW-SD (test code = 73528-7) 39.5 fL 39.0-49.9 RDW-CV (test code = 788-0) 11.7 % 12.0-15.5 L PLT (test code = 777-3) See_Comment [Automated messa ge] The system which generated this result transmitted reference range: 166 - 358 10*3/?L. The reference range was not used to interpret this result as normal/abnormal. MPV (test code = 25929-7) 9.2 fL 9.5-12.9 L NRBC/100 WBC (test code = 9448846615) See_Comment [Automated [employer] ssage] The system which generated this result transmitted reference range: 0.0 - 10.0 /100 WBCs. The reference range was not used to interpret this result as normal/abnormal. NRBC x10^3 (test code = 4498671660) <0.01 See_Comment [Automated messa ge] The system which generated this result transmitted reference range: 10*3/?L. The reference range was not used to interpret this result as normal/abnormal. GRAN MAT (NEUT) % (test code = 770-8) 42.4 % IMM GRAN % (test code = 4962568040) 0.80 % LYMPH % (test code = 736-9) 45.8 % MONO % (test code = 5905-5) 9.7 % EOS % (test code = 713-8) 0.5 % BASO % (test code = 706-2) 0.8 % GRAN MAT x10^3(ANC) (test code = 0070580066) 2.62 10*3/uL 1.88-7.09 IMM GRAN x10^3 (test code = 8006737924) 0.05 10*3/uL 0.00-0.06 LYMPH x10^3 (test code = 731-0) 2.83 10*3/uL 1.32-3.29 MONO x10^3 (test code = 742-7) 0.60 10*3/uL 0.33-0.92 EOS x10^3 (test code = 711-2) 0.03 10*3/uL 0.03-0.39 BASO x10^3 (test code = 704-7) 0.05 10*3/uL 0.01-0.07 Lab Interpretation (test code = 19595-2) [facility] Khgc9458-23-67 03:18:00* Test Item Value Reference Range Interpretation Comme nts POCT PREG (test code = 1605) negative On board controls acceptable with C Line (test code = 3574) positive POCT PREG LOT # (test code = 3575) [id number] POCT PREG TEST DATE ( test code = 3576) 05-09-2023 Lab Interpretation (test cod e = 35184-9) Normal [facility] History and Physical Notes Date/Time Note Provider Source 2023-09-02 15:53:33 iHoCaClOvZLB6uuqtCNK hMI8oxy3N08h4oDKxLcrF8 mLykCS9C7wxp6AomMUu4hO0655-16-73P02:53:33F ormatting of this note is different from the original.I have seen and examined patient. Denies interval changes.Patient Vitals for the past 24 hrs:BP Temp Temp src Pulse Resp YrS993/24/24 1333 (!) 122/92 36.7 ?C (98.1 ?F) TEMPORAL ART 81 21 100 %NADRRRBreathing unlaboredSoft, NTTP, no rashNo edemaA/P: Will proceed with TLH/BS/Cysto as planned. Accompanied by her fianceAndrew. All questions answered.Jarrod Mercado MD 09/02/2023 3:54 [...] home health care provide x 2yrs until March3Divorced, lives with kidsRecently incarceratedReview of SystemsConstitutional: Negative [...] Pap smear. Pap and HPV negative on 3Benign endometrial biopsy on 3CONSULT/REFERRAL CARDIOLOGY, CONSULT/REFERRALINTERNAL MEDICINEFollow-up 2 wks post opVien Dakota Mercado MD 08/13/2023 2:37 PM 90308-2Kydzjpjjz History and physical uyuxBP7167-89-28X59:54:53Attending History and physical noteTXT1.2.840.800683.1.13.104.2.7.2.03005 9|[id number] for patient gujr34383-2Ittxjiz and physical noteLNNARRATIVEFormatted C-CDA narrative text[address] DymtFviejderjVfkhwxzeeIZWV8936159507SJXDVD PVONVAKJIDGYXBNU8720-07-51J77:54:531.2.840 .002696.1.72.3.15|1.2.840.741102.1.13.104. 2.7.2.727879_[id number] [facility] Procedure Notes Date/Time Note Provider Source 2023-09-02 18:30:29 x4uveSQbyaTQVHg5lpl7 c2p2bZyM8rnKux2fVEwsn+ /04B7/vZKiHSlPtepyPvFy0845-32-19D15:30:29P rocedure(s): LAPAROSCOPIC TOTAL ABDOMINAL HYSTERECTOMY; LAPAROSCOPIC SALPINGECTOMY; [...] stable condition.Jarrod Mercado MD 09/02/2023 6:32 PM 39279-9Ngpnylemd lucpOU1175-94-20V98:20:32Procedure noteTXT1.2.840.364504.1.13.104.2.7.2.39726 9|[id number] for patient vqts19526-4Tmmkjvpyv noteLNNARRATIVEFormatted C-CDA narrative text[address] RsakXzigpdgmdTidfgxuyvHEBR6068783586TAWVQD EQPMIGACYPWPVEPK3519-83-81E37:20:321.2.840 .085538.1.72.3.15|1.2.840.749592.1.13.104. 2.7.2.727879_[id number] [facility] Notes Date/Time Note Provider Source 2023-12-22 09:14:54 2ez/syzpJT+1H+fUNncV ad2BCl+o7LzzZi kkD9SxzWu2Gn1+6gRqTkXU/hI64Wv06111 -05-14T09:14:54 First attempt to contact Virgie Frausto to remind to complete SVR12 labs. No answer. Left voicemail asking patient to return call to clinical pharmacist at [phone]. If no return call from patient, will attempt again at a later date.Promise Cabezas, PharmDClinical Pharmacist - GI/[phone] madelyn signed by Promise Cabezas [facility] at 12/22/2023 9:17 AM DKJ50491-5Ikvtmetqc encounter QwjgMD5844-37-45O16:17:07Telephone encounter NoteTXT1.2.840.839763.1.13.104.2.7 .2.401509|[id number] for patient cfka18150-4YxsoGSESRMEXWCDHomqwngp d C-CDA narrative mmfd857443613Dahcl Rice [address] GnwxVyfbpcoivYilasvzhwKLHG36766582 82NMBRFXDMVCWJDYKTUQDZXM1559-52-17 T09:17:071.2.840.341996.1.72.3.15| 1.2.840.497400.1.13.104.2.7.2.7278 79_[id number] Promise Cabezas [facility] 2023-10-19 14:22:30 wTeKFSrtjRXT+dMHQxqa SlYJHamYMpr+Ee lNDD2a6QVsaWTLSSG4loVl/8tCZa8i2274 -03-11T14:22:30 Virgie Frausto is a 38 year old femalePt called requesting to discuss with clinic and have forms of hospital uploaded to [facility] from hospital visit on 09/02/23. Stated that she was not able to find any documentation on chart. Please advise. 90664-7Luetutngk encounter GknjLP2613-73-11O73:24:32Telephone encounter NoteTXT1.2.840.458517.1.13.104.2.7 .2.104475|6441221334YCBwldslqhf for patient rjwv18831-0FzrtDPATVHMOAGLRxjdyqfd d C-CDA narrative scqc68953765Utyskxbq I [address] CllbMejrseeyuDcanbxmoaNMJI57134138 29SAOSHAYXJVRZMETWDFGQBB9581-12-22 T14:24:321.2.840.936349.1.72.3.15| 1.2.840.129922.1.13.104.2.7.2.7278 [id number] Jaspreet Queen [facility] 2023-09-24 11:18:02 7DdRgoLTtnsrH01ce4wo P3zXflaHnMtqSR YJdfBFdx0/OO7/OK/BQayzPXpJqBJB0819 T11:18:02 Patient Reassessment: Hepatitis C TherapyDATE: 09/24/23Virgie Frausto [...] Value07/01/2023 0.06Allergies:No Known AllergiesImmunizations:Immunizatio n HistoryAdministered Date(s) NgssxwthaauuBOCE-LZT-3 COVID 19 ALLY SUCROSE VACCINE 12+, 5456-4428, 0.3 ML (30 MCG), IM [employer] (TRAN TOP) 08/19/20238605TKLG-HLI-0 COVID-19 MODERNA 0.25ML BOOSTER VACCINE 01/23/20227490XRWS-NIJ-4 COVID-19 MODERNA 12+ YRS VACCINE 10/17/2020, 11/14/2020Vaccination [...] calcium containing agents before consulting with the catering director or hepatology clinical pharmacist.Drug Interactions:There are no [...] as deemed appropriate.Patient receives their medication from [facility].Safety Precautions: status: female - of childbearing [...] encouraged to call the hepatology pharmacist at [phone] with questions. The patient will be contacted to complete another reassessment in 1 month.Promise Cabezas, PharmDClinical Pharmacist - GI/[phone] madelyn signed by Promise Cabezas RP at 09/24/2023 11:22 AM SYW41488-7Hxvcpachs encounter FhxoCD5263-83-94K17:22:49Telephone encounter NoteTXT1.2.840.721172.1.13.104.2.7 .2.679628|[id number] for patient bkej25273-7RlqfHIHHQZADMFDKigtuqll d C-CDA narrative textUT69 Smith [id number] 03PVSKRWVHOVWZIJAVHPLNWO2621-68-20 T11:22:491.2.840.544614.1.72.3.15| 1.2.840.504178.1.13.104.2.7.2.7278 79_[id number] [facility] 2023-09-16 13:37:55 FF8HUghetRxCzrHVDGhk F6a/6tFjOa3OsO H3Uox/xN7NtsZabOI469PFeokY+/jE77012023T13:37:55 Notified patient of covid test results. Pt voiced understanding with no further concerns at this time 54411-1Pelfojzgq encounter AwtiXL7464-29-63Q73:38:47Telephone encounter NoteTXT1.2.840.976032.1.13.104.2.7 .2.707772|[id number] for patient rkxr53189-7MjfvSFXJHLKGGKFAvuzpyee d C-CDA narrative dian991825849Zrpmepm D Knight RNUT69 Smith [id number] 97PPWCAZYQFJJFOWHMYANMFN5520-13-58 T13:38:471.2.840.042397.1.72.3.15| 1.2.840.774922.1.13.104.2.7.2.7278 79_[id number] Gabbi Rubi RN [facility] 2023-09-08 11:05:11 FOnCQBy4El4wh+2qNjiO FrbSNhIjyC1Io9 6zVGRQytI/JjS2W5a0sm2MaPXAVKwa8609 -01-30T11:05:[address] Mercado:[10:48 AM] Jarrod Mercado [...] cannot. Also talk to her about Medicaid transportation.[facility] message sent.CARLOTTA ROSADO RN 09/08/2023 11:05 JULIETTE ROSADO RN 09/08/2023 11:05 AM 03371-7Yawgqxcck encounter DdwfHY2972-91-70R31:06:03Telephone encounter NoteTXT1.2.840.596962.1.13.104.2.7 .2.332553|[id number] for patient rcxu84563-2LrzmVQSFSSICEERWorqscrp d C-CDA narrative [id number] Rosado RN[address] Ud[id number] 22MRJLTHEISDMLXZOUEHUSCM1322-74-10 T11:06:031.2.840.335836.1.72.3.15| 1.2.840.258403.1.13.104.2.7.2.7278 79_[id number] Carlotta Rosado RN [facility] 2023-09-08 10:17:17 MEnN6oq0zys6WV7u0xEn ZiqvyFh8EyRIUG cjeIjS2wsRLskToN/iEFpcTCuzK/5K8508T10:17:17 Pt stated that her pain goes down to a 4 and when it Tylenol/Ibuprofen wears off- it goes to a 7. Explained to pt that she will have some pain after procedure. I will let Dr. Mercado know and will call her back. No drainage or redness at incision sites. Verbalized understanding.CARLOTTA ROSADO RN 09/08/2023 10:24 AM 23541-8Bxohssnyz encounter XprzJQ4887-70-61S42:38:30Telephone encounter NoteTXT1.2.840.251602.1.13.104.2.7 .2.582078|[id number] for patient jxsu36370-7WkdzXGSGYEQIZYLEkmkukdw d C-CDA narrative text[address] Ty[id number] 91VNIDSFNCHOWGLWKQXRPKGZ5830-26-81 T10:38:301.2.840.500930.1.72.3.15| 1.2.840.323302.1.13.104.2.7.2.7278 79_[id number] [facility] 2023-09-07 15:16:29 Janna/Ella/x2bo3jn aB1pUCy+hu80DQ Jn/PL69uxpYhQbDrDjUXzNY1LnjkYp6541 -01-29T15:16:29 Mychart message sent.CARLOTTA ROSADO RN 09/07/2023 3:16 PM 01082-2Stpelqobz encounter YelvMI2517-56-85L84:16:39Telephone encounter NoteTXT1.2.840.562802.1.13.104.2.7 .2.529340|[id number] for patient lzky64955-5AqtuITKCIZTXFHMEkraroro d C-CDA narrative [id number] G Cervantes RN[id number] 01YRRSCHVDBPRTCNKPZHWNSV2060-82-72 T15:16:391.2.840.845596.1.72.3.15| 1.2.840.960758.1.13.104.2.7.2.7278 79_[id number] Carlotta Rosado RN [facility] 2023-09-04 17:15:39 ZeXn4kiIB0TSJyAMok5l B//DGchR35gB3g bNe0Ts7oWxwJ/9vzhf34LiTn37vWpi6805 -01-26T17:15:39 @[address] [place] [address] on for pt to return call.CARLOTTA ROSADO RN 09/04/2023 5:16 PM 17841-1Orourmnok encounter JzgtWL5896-59-11G07:16:07Telephone encounter NoteTXT1.2.840.985070.1.13.104.2.7 .2.692508|4143803452JCCjkvpunsr for patient jxcb04544-0SjzsPYFMCGZSEHTMvpwsttx d C-CDA narrative text[id number] 57TTUAXYOKKCAZAPZRDBKDFA8508-35-31 T17:16:071.2.840.980845.1.72.3.15| 1.2.840.372274.1.13.104.2.7.2.7278 79_[id number] [facility] 2023-09-04 16:23:18 uiA4AjJWd6TKAEoUKyDd G9V4MpF3Z+oOSj RNwgItH3Ro8xlvGCTZvASNtapY2PoO4982 -01-26T16:23:18 Patient states she is taking the tylenol and ibuprofen and it is not helping. She was told by the nurse to call back today for a follow up.[facility]/pharmacy #[id number] - [place], [place] - [address] [place] [address] [facility] Ocerrmtdkyrhqh signed by Lena Merritt at 09/04/2023 4:24 PM NPQ80550-6Azftzkeaj encounter VxdbMC7357-70-32K77:24:20Telephone encounter NoteTXT1.2.840.849708.1.13.104.2.7 .2.804334|6363313250HHAidyxuygg for patient xmvk11081-8QulmJSBIKBFNRUQCyaqcqmz d C-CDA narrative qasp42358662Kezlv [address] Ek[id number] 47FBMHCTYDGFDOBBYYYIWNPM0994-49-67 T16:24:201.2.840.969277.1.72.3.15| 1.2.840.497075.1.13.104.2.7.2.7278 79_[id number] Lena Yoonandez [facility] 2023-09-03 16:23:50 fHZtjX7Htoj+Dn9bPnEu Ep35xj8mreEhZd qDgExj9irV5Fmzol3YdcjCqbVBlAUM5713 -01-25T16:23:50 Name and verified. Per Dr. Belcher:reassured her that her surgery was uncomplicated. Make sure she ambulated so she can minimized gas pain. Take her gas-X BID. Take Ibuprofen with Tylenol 500 mg Q 6 hrs if needed. Take Matheny only PRNVerbalized understanding.CARLOTTA ROSADO RN 09/03/2023 4:24 PM 69220-4Gxittstnn encounter TfguSV8743-18-61F15:24:21Telephone encounter NoteTXT1.2.840.198512.1.13.104.2.7 .2.053156|8676753763TJQpguvbauf for patient xzzf27641-8LgxcSAAQSKTEGBSFqhayhbq d C-CDA narrative opde041171253MhybkppmmCarlotta Rosado RN[address]vd[id number] 82MYAJYNGOFACQFQPWZPQGSF3142-20-97 T16:24:211.2.840.845508.1.72.3.15| 1.2.840.242993.1.13.104.2.7.2.7278 79_[id number] Carlotta Rosado RN [facility] 2023-09-03 16:12:05 BMMrDnU5ynl1umq1+aKW fZ9dv7b+JRmb3b pu3tg83J6xCgohlddS3NxWp6ba0b0I4604 -01-25T16:12:05 Name and verified. pt called stating that she is in a lot of pain and feels that Matheny # 4 is not enough. Pt last [...] Mercado advised.CARLOTTA ROSADO RN 09/03/2023 4:12 PM 37704-5Txyttbswj encounter NtpyDP8591-53-62H27:12:31Telephone encounter NoteTXT1.2.840.223084.1.13.104.2.7 .2.188794|6921892733ZGHxiqrbujf for patient lmhe35420-9SdiaFOPJRFJZMJWNmhqqpid d C-CDA narrative sharon[id number] 88FFIUNKJXZBRQJRGKTHZWUO3356-48-48 T16:12:311.2.840.673030.1.72.3.15| 1.2.840.689629.1.13.104.2.7.2.7278 79_[id number] [facility] 2023-09-03 15:02:51 4MLVXph2nflOdApKGo/o FrOqPmd9pWXrcy j125r/2cwcrXaoQLY5Gv2nONHEnDz+2023T15:02:51 Pt is calling back says she in pain and want to make sure she has enough pain meds so want to discuss, had hysterectomy yesterday. 81771-1Rdesahbbb encounter IfwqOU4234-18-93P08:03:49Telephone encounter NoteTXT1.2.840.024327.1.13.104.2.7 .2.720573|2198444974MOThewcegtv for patient dnye19633-1KngdGJUOZABPFPDLxhggwam d C-CDA narrative lxsz123662099Wayyi Rodriguez[id number] 74TGRQCOZUPEWVOEWNESKKRA0769-24-36 T15:03:491.2.840.940150.1.72.3.15| 1.2.840.687105.1.13.104.2.7.2.7278 79_[id number] Nata Conor [facility] 2023-09-03 13:00:35 qCQpOdnUZnFs6s+zCtFx W1YlaFOSWA/uqW jg93VtMbbbwhFs+45xYLO4sskNDqjm1999 -01-25T13:00:35 Pt want to discuss pain meds that were prescribed says it will not be enough to get her through her pain. Had surgery yesterday. 73105-1Evwsecmbk encounter MdxiPZ6055-51-09E32:01:39Telephone encounter NoteTXT1.2.840.568072.1.13.104.2.7 .2.260583|3414860555CAMeayztcmj for patient hfju40020-5DjsyAPRZMCWHEFAEuneunxy d C-CDA narrative textUT[address] GyjsTssknbmiiQfowzxxytQCMT04982839 31EOFAKLGGUJIQWXSEQURGVT0163-99-67 T13:01:391.2.840.730235.1.72.3.15| 1.2.840.306907.1.13.104.2.7.2.7278 79_[id number] [facility] 2023-09-03 08:00:00 5WrP32nr1GDHq0KwbiO7 NZPrFOPlAyU5If 4YB2IdWHXzGecVIiFxR0w0aK19M0Yk4907 -01-25T08:00:00 Incision sites x [address] observed by Dr Mercado; pt instructed to sponge bathe for the next few days and remove drsgs once she showers and drsgs get wet; Understanding verbalized 80717-6Ovwpd EnmrNQ6452-85-39Q45:12:51Nurse NoteTXT1.2.840.744720.1.13.104.2.7 .2.144214|7764723822FKTcbhhvdbs for patient vyur64095-9RdxzTLUBQIAGFGMHlsfqnvr d C-CDA narrative rwcv178384675Gyqmbw L Anders RNUT[address] [id number] 08CRSZAPTSDKRKKQGWKJWGKR0061-59-96 T08:12:511.2.840.929244.1.72.3.15| 1.2.840.814512.1.13.104.2.7.2.7278 79_[id number] Kaley Alonzo RN [facility] 2023-09-03 08:00:00 DGJ1Kmb24WGVQyb554Hu jaqfzsi01E4ck2 +2zMmT362qD4+mhL/J8hBRAm8CWjYz0299 -01-25T08:00:[address] Mercado; Instructed by Dr Mercado NO tampons, douching, sex, tub baths, swimming, or lifting more than 10lbs; Understanding Verbalized 07212-4Daynv YpwzEB9795-84-26M70:15:38Nurse NoteTXT1.2.840.694560.1.13.104.2.7 .2.250375|6855368838CJEzatzjjid for patient cpos75697-4FjdwCBQZVOBCFKEGptggtmi d C-CDA narrative text[id number] 52GKUASMACIFMLVZREQLTGFY8777-31-76 T08:15:381.2.840.160366.1.72.3.15| 1.2.840.036996.1.13.104.2.7.2.7278 79_[id number] [facility] 2023-09-02 17:00:02 zTFD9Fg+cdPtVofYQsSP 4q4wSiZ9RNnUVa smSew8xLieuXot7JU0Tlarmz4+EomT14672023T17:00:02 CALLED AND UPDATED PT'S BHARAT ATKINS, AT 1701. - TOLU GONZALES. 57599-3Ttrti WmjmFN3037-50-85V42:01:23Nurse NoteTXT1.2.840.524574.1.13.104.2.7 .2.489741|7736376515XKCnwxmajqb for patient czok70045-2BxgqYANKYNRNRQJNddpgpmd d C-CDA narrative vcvo186045385Osgnwp C Damian RN[id number] 66UOHOSOTTPVHGKIRJAEGQFB7260-06-15 T17:01:231.2.840.745085.1.72.3.15| 1.2.840.042576.1.13.104.2.7.2.7278 79_[id number] Sean Maurice RN [facility] 2023-09-01 16:11:36 JzVwDC3sRfB/o+rtuD10 EKM+h+fTzNRgl9 KvZyxxhSO2Inxv0jZ3Wg8IC1FhgXs63430 -01-23T16:11:36 Patient dropped of pre op clearance form from PCP. Clearance form given to Dr. Mercado. Dr. Mercado states she will perform the scheduled surgery tomorrow 09/02/2023. Camelia Lew with surgery scheduling advised. Patient given number to contact pre op nurse for pre op instructions.Ulices Adler RN 09/01/2023 4:12 PM 08687-3Zqkyabihf encounter HjhpNZ4894-35-11N94:14:11Telephone encounter NoteTXT1.2.840.818383.1.13.104.2.7 .2.903915|0399326013OXAkjjyodwy for patient jtyd50410-2XzzhXLXAMYOLMUBKgfxspfq d C-CDA narrative text[id number] 50XWKDERKFCHRYENKRQQUCCB7489-75-48 T16:14:111.2.840.022259.1.72.3.15| 1.2.840.543889.1.13.104.2.7.2.7278 79_[id number] [facility] 2023-09-01 12:52:20 JW0tC/np4vKEV+CN6omV zpZIsSOnmTVV+g N0Ta6eOOJeSPvb6DJvdh22tsj2Lum19680 -01-23T12:52:20 Pt called. She will cotton picker last OV with Dr. Mercado and Dr. Hall with lab results to take with her PCP appt today at 3pm. Advised pt to fill out a KULDIP and when her appt is done, she must come by office to either drop off clearance or cancel her procedure. Verbalize understanding.CARLOTTA ROSADO RN 09/01/2023 12:54 PM 19965-0Trsadqzco encounter QeosYW5484-46-34O59:54:20Telephone encounter NoteTXT1.2.840.273913.1.13.104.2.7 .2.452092|1688331216FNGwkcwwtkg for patient ihol14602-6PnbvBCSHZBUUGHZEqnvjzzb d C-CDA narrative gnwv403549737LdrxsbchpCarlotta Rosado RNUT[address] StreetXssgZbwuctqwlVkzaludllSERE55817534 82IMULMLVEMNDUNCHJSNEUUS7991-92-61 T12:54:201.2.840.286897.1.72.3.15| 1.2.840.832139.1.13.104.2.7.2.7278 79_[id number] Carlotta Rosado RN [facility] 2023-09-01 11:39:17 wyRl9POAC+h7hrpgxPc4 hyLozZptnu/02Z eefWyEgTUoM6OlUEn+9MpAlLnWFh5L3625 -01-23T11:39:17 Pt called. Family [facility] [phone]. They need to know what exactly needs to be done. If we have a form. Called office. Explained to them that we do not have a form. That she must be cleared by today to have surgery tomorrow. Office stated that they will call pt.CARLOTTA ROSADO RN 09/01/2023 11:42 AM 03501-9Ipqtupixq encounter JcjsCP5512-05-55I47:42:38Telephone encounter NoteTXT1.2.840.128686.1.13.104.2.7 .2.075387|6533408169VASwdqyjqac for patient cuxa00233-6KtnkKZUMRKOVSNIRxtfihyn d C-CDA narrative textUT[address] ZkblPuytfczncAeqonueobHHEC99066357 83MEDNQCAAFUTHEYZEXDIFZJ5787-72-48 T11:42:381.2.840.701036.1.72.3.15| 1.2.840.643651.1.13.104.2.7.2.7278 79_[id number] [facility] 2023-09-01 09:59:32 18xO+47rWr4I6Ed+P+XA 9lYYSIxWLa9f3H aUNRu9zI8IsXDwXi+ijrXn/930bTuY0975 -01-23T09:59:32 Pt called office. Pt stated that she fired Dr. Hernandez has her PCP. Advised pt that she must be cleared by a PCP before surgery to be done. Explained the importance of having clearance and her recovery. Pt stated that she will find a PCP and get cleared today and will call us back.Dr. Mercado advised. Surgery Manager/Event Lighting Specialist also advised. 91817-8Jumrkislo encounter SeuoXY7534-85-77O44:03:06Telephone encounter NoteTXT1.2.840.097362.1.13.104.2.7 .2.398213|2346218721YWSwkqensul for patient mctl00911-0WiiwPUGSVYWXUVLBbsxbnxa d C-CDA narrative textUT[address] BtciWkpqcbdtaYqwukticwVDUH89767754 94CTNDEEUCEOCFEEMJAMPXSH5289-46-41 T10:03:061.2.840.014924.1.72.3.15| 1.2.840.351430.1.13.104.2.7.2.7278 79_[id number] [facility] 2023-09-01 09:15:00 7nd+/Tib1eppjj7hRGgS I72DUBQfuG4YNY Py7PXKsRRIEJLujwkfb+vyed9DNZoE0983 -01-23T09:15:00 Images from the original note were not included.Venipuncture collection performed by clean technique on the right anticubitus. Total of 1 attempts were made. Slight pressure and a bandage/dressing were applied to the site(s). The patient experienced no complications. The following specimens were processed according to instructions and sent to [facility] laboratories per lab order on 09/01/2023 :LT BLUESST 1REDLAV 3PPTDK GREEN (LiHep)DK GREEN (SodH)GRAYDK BLUE (K2)DK BLUE (S)ACDBlood CultureNIPT/NTD 08266-6Nbnuf ObxhYZ7844-32-68Y81:52:36Nurse NoteTXT1.2.840.054855.1.13.104.2.7 .2.231635|2430529189ZHQgmupmvrf for patient ugvh74711-2Owigq NoteLNNARRATIVEFormatted C-CDA narrative text[id number] 06AJQNYLCWSZBULIESXCAWGG4377-40-55 T08:52:361.2.840.871224.1.72.3.15| 1.2.840.443361.1.13.104.2.7.2.7278 79_[id number] [facility] 2023-09-01 09:15:00 jDflUl5OyImttVUjvx0i azqwAj1DeGrYnK pI69sGLMp22BU5ed5Fh1x5xjcokF2d1862 -01-23T09:15:00Addended by: WILLIAMS NEGRO on: 09/01/2023 01:19 PMModules accepted: Orders 05074-7Wcljeeru SmitcipiFO3285-31-06S55:19:01Adden dum DocumentTXT1.2.840.844560.1.13.104 .2.7.2.558216|[id number] e for patient tenw17167-5ZsxtCHSACBENAVQFgrxplms d C-CDA narrative yhmv426539506Wdybndd A [address] 27MFWGULQQBXLOKFUTFMRDEL5522-91-53 T13:19:011.2.840.292133.1.72.3.15| 1.2.840.508325.1.13.104.2.7.2.7278 79_[id number] Williams Negro [facility] 2023-09-01 08:59:10 2DFRM2vLlvsz1lCMWEQp PW2bN+8hBhvNlJ 5KzjImkg4xeYhmESO+ub+LOjktE+4k4151T08:59:[address] Mercado- Unfortunately, she did not [...] Mercado advised.CARLOTTA ROSADO RN 09/01/2023 9:04 AM 12662-2Wjdqzcdlb encounter KxoeYN3871-32-56X50:04:55Telephone encounter NoteTXT1.2.840.919266.1.13.104.2.7 .2.453163|0865251754TQFtwfkhcaw for patient jgif98109-3QyxcDFGCVJGAKDNOacfajmw d C-CDA narrative textUT[address] SvszPhgnlephtEahvnrcwzLXII54654787 41PGHSXTVZDIPRZKBCHFTDRC0445-86-87 T09:04:551.2.840.723384.1.72.3.15| 1.2.840.191436.1.13.104.2.7.2.7278 79_[id number] [facility] 2023-09-01 07:52:08 WzW2jYW5Kh8joRLHGj9H adB++QyWzsoTOX azws5mzmDzDYgkRYY1Ba9V1SG9Y8Uj5635 -01-23T07:52:08 Pt want to make sure clinic received her clearance for surgery from her other physicians. 88073-5Qwugfgyfj encounter GpwpSR5625-56-89A69:52:54Telephone encounter NoteTXT1.2.840.413297.1.13.104.2.7 .2.975818|8269851916HMJgcwhkvdo for patient kdhb65105-3JxvgTGMWJWIGRJTSlvctzog d C-CDA narrative talw747129534Ewoyv Conor[address] BhpxPnuimnmtxCazlnywhpPOPZ55258366 95YFVDYPLMKRSDJWHXYZIOKO5445-81-83 T07:52:541.2.840.701355.1.72.3.15| 1.2.840.262953.1.13.104.2.7.2.7278 79_[id number] Nata Perdomo [facility] 2023-08-31 13:11:37 n9NR/xHu56wctXOGKoMJ 4d3FlVeY0YVIqr M21QewMf9+BI9RgYVOP4jyuN8Z1J7s6991 -01-22T13:11:37 Patient Reassessment: Hepatitis C TherapyDATE: 08/31/23AlieKristina Frausto is a 38 year old y/o [...] Value08/19/2023 13.4 g/dL08/25/2007 11.7 G/DLHCT (%)Date Value08/19/2023 39. 33.6 (L)INR (no units)Date Value07/01/2023 1.2APTT [...] Value07/01/2023 0.06Allergies:No Known AllergiesImmunizations:Immunizatio n HistoryAdministered Date(s) GyndtywaabytBFES-SCG-7 COVID 19 ALLY SUCROSE VACCINE 12+, 6490-7622, 0.3 ML (30 MCG), IM PFIZER (TRAN TOP) 08/19/20234538SNIE-AQC-5 COVID-19 MODERNA 0.25ML BOOSTER VACCINE 01/23/20226785DPZI-CWP-0 COVID-19 MODERNA 12+ YRS VACCINE 10/17/2020, 11/14/2020Vaccination [...] tablets by mouth in the morning. 07/24/23 PremTaiwo gonzalez, Srinivasanicyclomine 20 mg tablet Take 1 tablet by [...] calcium containing agents before consulting with the catering director or hepatology clinical pharmacist.Drug Interactions:There are no [...] as deemed appropriate.Patient receives their medication from [facility].Safety Precautions: status: female - of childbearing [...] encouraged to call the hepatology pharmacist at [phone] with questions. The patient will be contacted to complete another reassessment in 1 month.Promise Cabezas, PharmDClinical Pharmacist - [place]/[phone] madelyn signed by [facility] CabezasCAR[facility] at 08/31/2023 1:16 PM MDE70062-6Hbgjxjwxd encounter XrqtAE9352-83-34G62:16:04Telephone encounter NoteTXT1.2.840.986602.1.13.104.2.7 .2.537078|1407431142MHXzjjndeci for patient kgtd39783-1YkrkUIQXSMPIUHEPhnexzxc d C-CDA narrative uehx344396543Aaasp Rice [address] UuecFnlzpjgmbFwwkrgqurHZDH84656809 32GPOATFHNOPXYIZKMAXSUBL5360-70-84 T13:16:041.2.840.526185.1.72.3.15| 1.2.840.554874.1.13.104.2.7.2.7278 79_[id number] Promise Cabezas [facility] 2023-08-31 09:53:47 eZOGgtxoBZioAJUmJhsi h5f3ZFSlEk0hvs eLbw+a0lF+G1MoCtAqttKa4+ToQN/A2024 -08-31T09:53:47 Images from the original note were not included.Your procedure is at [facility] on 09/02/23. The address is [address] [place] [address], [address]. [facility] nursing staff will call you the [...] voiced no further questions at this time. 54033-9Mqalm RzvqPF2032-45-20N26:54:41Nurse NoteTXT1.2.840.556920.1.13.104.2.7 .2.715016|8125620231QFDyvlodufw for patient jnrd55546-9CermBLFXOKOTEWGIfydsumx d C-CDA narrative text[address] CgufDuikompvbXlcnsehdfMCRL79029693 65UNBYKKPKVIILCSZICLQTYK5290-48-54 T09:54:411.2.840.530694.1.72.3.15| 1.2.840.903089.1.13.104.2.7.2.7278 79_[id number] [facility] 2023-08-28 08:43:12 bJXDvGktN8E3X+fAMV6m AaEnzkPxKiq6uE xIxe6pltBZLdAmLVsGY34gt3QWJgia5634 -01-19T08:43:12 First attempt to contact Virgie Martinezker to verify compliance and assess tolerance of her specialty medication, Mavyret. No answer. Left voicemail asking patient to return call to clinical pharmacist at [phone]. If no return call from patient, will attempt again at a later date.Promise Cabezas, PharmDClinical Pharmacist - GI/[phone] madelyn signed by Promise CabezasCAR[facility]DELET [facility] at 08/28/2023 8:45 AM KBW11835-4Kxepkhvwl encounter HnjxNF7928-60-44H71:45:07Telephone encounter NoteTXT1.2.840.020632.1.13.104.2.7 .2.080437|8989488404OCOdgihdpvc for patient hmdf17358-0ButgIUHQQIISUDBWmqfwlvh d C-CDA narrative bqja456299275Hyilp Rice [address] VdmzImmunckbfEtrkqjwfsYDRA02841702 74BODALEBXKFBRMERCHHOEIL7222-54-54 T08:45:071.2.840.562501.1.72.3.15| 1.2.840.758429.1.13.104.2.7.2.7278 79_[id number] Promise Cabezas [facility] 2023-08-27 14:50:08 8V061kR02E02IpfWk2SK hXldWagepGA7M3 op0K8dmt9SghRwtW4B6J4XI+ue8w8o1951 -01-18T14:50:08 Would recommend to await Dr. Boyle's returnPlease let patient know 16267-7Mpezcgwty encounter VlshXN1144-53-23Q39:50:30Telephone encounter NoteTXT1.2.840.248476.1.13.104.2.7 .2.805198|9161227161JNOihzupluo for patient rzmz98040-2SuhqJTWBPSEMKHVXbrnhwea d C-CDA narrative textNP-FAMILY MIDLEVEL PROVIDERNP-FAMILY MIDLEVEL PROVIDER[address] IgddSmtvgbmqxJvsjicoovCUJN43264972 29DFHCWLMEKUSPNNMFROTKSZ2660-16-07 T14:50:301.2.840.130912.1.72.3.15| 1.2.840.085894.1.13.104.2.7.2.7278 79_[id number] LOADING UNIT TOOL SETTER-FAMILY MIDLEVEL PROVIDER [facility] 2023-08-27 14:10:41 YMltcfKoW2cLJ4vG3avu hQlHshD4B+DqfC aIeXdEoWhZPcUpRQD2hx4XHiXbm6La4388 -01-18T14:10:41 Per patient, During OV with Dr. Boyle informed her if she can't get seen for psychiatrist she'll be cleared based on lab results come back normal. Patient is needing a clearance for surgery for Dr. Mercado. 76901-7Vlparlkky encounter MjgyXD8185-87-81M84:14:06Telephone encounter NoteTXT1.2.840.561688.1.13.104.2.7 .2.831496|9814382471XMMrygnwkzh for patient eudj89238-0MwozLECTVZZWZYNLxasocbf d C-CDA narrative zljw480213270Ybzfjc M Serrano [address]TXTX[address] 73FUIFUUZVFJMEGOFDIIGBLB0639-17-05 T14:14:061.2.840.152485.1.72.3.15| 1.2.840.825779.1.13.104.2.7.2.7278 79_[id number] Malena Rey [facility] 2023-08-27 13:42:59 /md6ndDmrAfUOjWssC7Q J19KzRUnNZhb+X tMaHojLb40e76lat3r2oiuJqa1GGCE9583 -01-18T13:42:59 Pcp sent referral for psychiatry and psychological eval . Pending that. Noted in chart for its for Hysterectomy. To follow up on that 28422-1Zjetuzdvt encounter MsblGN8741-19-48Q89:43:55Telephone encounter NoteTXT1.2.840.901926.1.13.104.2.7 .2.253995|9473061952QHYmyfdifni for patient yyhn54527-6StgtLGPXZHCIPXYEqozafja d C-CDA narrative text-FAMILY MEDICINE STAFF-FAMILY [id number] 17HBDFAGCXOXZYEXXAOJFKHP4321-10-98 T13:43:551.2.840.609811.1.72.3.15| 1.2.840.442966.1.13.104.2.7.2.7278 79_[id number] -FAMILY MEDICINE [facility] 2023-08-27 11:01:07 SGUeBTEcXMt91ruguSsT NUi3JPiwQ5A3+U iiHWolsKHgVRZQkkFY/4+LJI3HRdNS5256 -01-18T11:01:07 Patient is needing clearance for surgery. 63654-7Qjwbgwhsl encounter TfuzMM6172-18-87D66:01:21Telephone encounter NoteTXT1.2.840.665396.1.13.104.2.7 .2.765662|[id number] for patient siau44685-5CsebOTESCLOKXNTPmeheuqi d C-CDA narrative [id number] M Candido ALEXANDRE[id number] 86TZDXJUIEJZSEZVDCEYEHSL5168-61-11 T11:01:211.2.840.651123.1.72.3.15| 1.2.840.857322.1.13.104.2.7.2.7278 79_[id number] Malena Rey MA [facility] 2023-08-27 10:25:21 kcpzC3j00Sdm+eDIjfOF tMqleZUagH75j3 L4AYHSNmo6xA/1ikhrjh55QhpaLD4s8627 -01-18T10:25:21 CBC which looks at blood count looks relatively stable. No concernCmp which looks at kidney, liver and electrolytes looks okay. 04504-9Tqzcsubyr encounter CljeFM4101-73-27W16:26:56Telephone encounter NoteTXT1.2.840.569050.1.13.104.2.7 .2.612531|[id number] for patient dggw43934-1ZmmqCUHSXEJZSKAOsqqozzg d C-CDA narrative textFM-FAMILY MEDICINE STAFFFM-FAMILY [facility] STAFF[id number] 16STFFWYYAAHFQLSZECGLTYN5237-79-92 T10:26:561.2.840.285525.1.72.3.15| 1.2.840.321712.1.13.104.2.7.2.7278 79_[id number] -FAMILY MEDICINE STAFF [facility] 2023-08-26 13:21:11 RPkZDyv1lvBUXbdLgfN7 uclIGiLHHZSchk xF0ulv9As4fWDdm8oQTrFVscPkhUyn0515 -01-17T13:21:11 Please view labs for patient, patient is wanting lab results due to having procedure on 68-26-0160Opqbqancjpinun signed by Malena Rey MA at 08/26/2023 1:21 PM SYA34419-3Sgunxwzro encounter PmzeYV1985-62-17D74:21:54Telephone encounter NoteTXT1.2.840.101658.1.13.104.2.7 .2.257674|[id number] for patient cakb24980-8RkycBHMZPEIICJRUiplgobe d C-CDA narrative [id number] M Serrano MA[address] Uk[id number] 49KHFDHCXHDXFJGSCVDACVSP3093-61-02 T13:21:541.2.840.252637.1.72.3.15| 1.2.840.738569.1.13.104.2.7.2.7278 79_[id number] Malena Rey MA [facility] 2023-08-21 07:43:25 Y43U7RMCThYX6Jr1Kkn6 qGD8+Sqw07pzZu 7E/bFiUyqvfu4YqzUWjeQuN29SKB8380 -01-12T07:43:25 Spoke with patient and informed her labs have not been reviewed yet by Dr. Boyle. Once they have been reviewed we will give her a call with results. Patient understood and has no further questions. 90062-8Vjmgwnqyt encounter OlccSM1653-13-20G28:46:00Telephone encounter NoteTXT1.2.840.155571.1.13.104.2.7 .2.111525|[id number] for patient yozy16632-7PssqONCXEVROOJUYdhdfxaw d C-CDA narrative [id number] M Serrano MA[address] Ra[id number] 54XYTDJCNJQTZCOJYZDVGXDO9517-19-51 T07:46:001.2.840.869993.1.72.3.15| 1.2.840.098262.1.13.104.2.7.2.7278 79_[id number] Malena Rey MA [facility] 2023-08-20 11:17:34 fTeQmySb/7OZeaZxo5nm CjNK48nJIhVUNY TMzqNd3eaiaUEt+GC/pwfZ5syi4yy43794 -01-11T11:17:34 Virgie Frausto is a 38 year old femalePatient called stating that she had labs done on 08/19 and would like someone to give her a call to explain those results and to make sure there is not going to be any affect for her surgery that is coming up on 09/02Please advise 07952-7Xrmoqmomb encounter HczvJV3933-76-96M77:19:35Telephone encounter NoteTXT1.2.840.075572.1.13.104.2.7 .2.942484|[id number] for patient vyfr52877-0QmhyNMZMJNGLMROHxsiyhjy d C-CDA narrative [id number] R Salmdaubrey[address][id number] 25WZJANKAPJPMAUYNCLPIRIU0545-81-28 T11:19:351.2.840.296153.1.72.3.15| 1.2.840.979270.1.13.104.2.7.2.7278 79_[id number] Harsh Garcia [facility] 2023-08-19 16:30:00 1vUrcEi3frGvo6wFk5ic GkYR+KBBifJsml 1Sqi+ju02O3wKxdo2iZ4TSWf/jPIIP75332023T16:30:00 Images from the original note were not included.Venipuncture collection performed by clean technique on the right forearm(s). Total of 1 attempts were made. Slight pressure and a bandage/dressing were applied to the site(s). The patient experienced no complications. The following specimens were processed according to instructions and sent to [facility] laboratories per lab order on 08/19/2023:LT BLUE1 SSTRED1 LAV1 PPTDK GREEN (LiHep)DK GREEN (SodH)GRAYDK BLUE (K2)DK BLUE (S)ACDBlood CultureNIPT/NTD 06564-2Spkuh SomdMS6156-26-07E28:13:14Nurse NoteTXT1.2.840.690970.1.13.104.2.7 .2.861024|[id number] for patient vlnc77062-6Plxev NoteLNNARRATIVEFormatted C-CDA narrative text[address] Gu[id number] 73WAFBGBRGXBSHDCIUBVVGXX7449-63-91 T17:13:141.2.840.274368.1.72.3.15| 1.2.840.933816.1.13.104.2.7.2.7278 79_[id number] [facility] 2023-08-12 13:13:38 TiiMCQf8XK1LqvHwN+aP YgR+Yzs+NSU3/c ZzQi6DkAQ6c1kMPPToIaJdPMFhWfCX5726 -01-03T13:13:38 Patient Reassessment: Hepatitis C TherapyDATE: 08/12/23Virgie Frausto is a 38 year old y/o [...] Value07/01/2023 13.3 g/dL08/25/2007 11.7 G/DLHCT (%)Date Value07/01/2023 39.101/ 33.6 (L)INR (no units)Date Value07/01/2023 1.2APTT [...] Value07/01/2023 0.06Allergies:No Known AllergiesImmunizations:Immunizatio n HistoryAdministered Date(s) PvvsslktguuiIWIL-NHS-7 COVID-19 MODERNA 0.25ML BOOSTER VACCINE 01/23/20222357HMKX-EUN-4 COVID-19 MODERNA 12+ YRS VACCINE 10/17/2020, 11/14/2020Vaccination [...] calcium containing agents before consulting with the catering director or hepatology clinical pharmacist.Drug Interactions:There are no significant drug-drug interactionsDrug-Food InteractionsThere are no significant drug-food interactions. This medication should be taken with food.Adverse effects:Virgie Farusto reports having the following drug reactions: headache, right sided crampsAdherence:Refill history was reviewed with the patient. Virgie Frausto states they are adherent with regimen. The patient was reminded about the refill process and re-educated on the importance of adherence.Overall medication adherence status will be discussed with the care team as deemed appropriate.Patient receives their medication from [facility].Safety Precautions: status: female - of childbearing potential (not currently )Risk Evaluation and Mitigation Strategy (REMS) Assessment: No REMS is required for this medication.Contraindications: VirgieKristina Torres Lisbet has no contraindications to this medication.Follow up Plan:Virgie Frausto denies having any questions at this time The patient was reminded of the refill process as discussed during the medication education. Virgie Frausto was encouraged to call the hepatology pharmacist at [phone] with questions. The patient will be contacted to complete another reassessment in 1 month.Promise Cabezas, PharmDClinical Pharmacist - GI/[phone] madelyn signed by Promise Cabezas [facility] at 08/12/2023 1:16 PM TFY11579-1Aeadtkloo encounter KxwgDC2110-53-26A03:16:45Telephone encounter NoteTXT1.2.840.416192.1.13.104.2.7 .2.821542|7440824107VPXqijnqvtb for patient yoyq47942-8OoveYGVDQZWKDNCNlewqoho d C-CDA narrative [id number] Rice [id number] 73SUYZZBHCPYAYDDVBYTWLPF1235-42-94 T13:16:451.2.840.415662.1.72.3.15| 1.2.840.269151.1.13.104.2.7.2.7278 [id number] Promise Cabezas [facility] 2023-08-12 10:42:47 wEjkjHxOwUhQhFPQP0Ke PhbF+svzvIxjxn lYWltrkyIbjWzV91KEOAHkQLma36Ic0788 -01-03T10:42:47 First attempt to contact Virgie Brian Frausto to verify compliance and assess tolerance of her specialty medication, Mavyret. No answer. Left voicemail asking patient to return call to clinical pharmacist at [phone]. If no return call from patient, will attempt again at a later date.Promise Cabezas, PharmDClinical Pharmacist - GI/[phone] madelyn [facility] at 08/12/2023 10:44 AM SEE70651-5Meezcpllm encounter BajfJF2061-85-65O18:44:45Telephone encounter NoteTXT1.2.840.299079.1.13.104.2.7 .2.642178|[id number] for patient xbpt58946-5WkbdQEASPEMIALAAcgmmpqa d C-CDA narrative [id number] Rice [id number] 71WRSADGKLFEAGZSZPERAFRX5133-44-73 T10:44:451.2.840.372623.1.72.3.15| 1.2.840.176861.1.13.104.2.7.2.7278 [id number] Promise Cabezas [facility] 2023-07-24 13:49:19 ruaqXULa5RC20v6ztwR7 juPhEtuRZaW05N QLfdUVtTbFPTy0JXnp8GDHwZSF9vmd7516 -12-15T13:49:19 Initial Assessment: Hepatitis C Virus TreatmentDATE: 07/24/23Virgie Frausto is a 38 year old y/o Black or female referred to PharmD by Taiwo Wharton NP for medication management.Summary of VisitMs. Lisbet is doing well today. Counseled on Mavyret. She confirms understanding and denies any questions.Patient is HCV positive, treatment naive, genotype 1A, and non-cirrhotic. HBV/HIV negative. Fibrosure score F1. Viral load 1,248,796 on 05/13/23.No clinically significant drug-drug interaction identified.Patient will receive treatment from [facility].Start date: 08/03/23Anticipated end date: 09/27/23Indication / [...] Dizziness 05/26/2019Hep C w/o coma, chronic age 20- [...] Value07/01/2023 13.3 g/dL08/25/2007 11.7 G/DLHCT (%)Date Value07/01/2023 39.101/ 33.6 (L)INR (no units)Date Value07/01/2023 1.2APTT [...] 12.8 oz)Allergies:No Known AllergiesImmunizations:Immunizatio n HistoryAdministered Date(s) AggliarmklpdPXFJ-PZS-5 COVID-19 MODERNA 0.25ML BOOSTER VACCINE 01/23/20226516GWRG-IQF-7 COVID-19 MODERNA 12+ YRS VACCINE 10/17/2020, 11/14/2020Vaccination [...] one tab the morning of procedure 07/23/23 Jarrod Mercado MDdicyclomine 20 mg tablet Take 1 tablet [...] REMS is required for this medication.Contraindications: Virgie Brian Lisbet has no contraindications to this medication.Follow up Plan:Initial therapy assessment has been completed and the patient will be contacted and educated on their regimen. Following education the patient will be reassessed 1 month after starting therapy.Promise Cabezas, PharmDClinical Pharmacist - GI/[phone] madelyn [facility] at 08/12/2023 1:13 PM LIA84313-7Mrnxpepfl encounter QmykOQ2203-80-13N37:13:10Telephone encounter NoteTXT1.2.840.778738.1.13.104.2.7 .2.996735|[id number] for patient buev63213-9GnaxWRXTDATWSTDNjaesosu d C-CDA narrative ttim144976008Kgkku Rice [address] WtggGunmucydyIdadfjuwoYSBD30856262 68QXFHXTGOVEOWUOBAGCCQFY0651-27-61 T13:13:101.2.840.148844.1.72.3.15| 1.2.840.223752.1.13.104.2.7.2.7278 79_[id number] Promise Cabezas [facility] 2023-07-24 13:45:19 5zQn4OP1Q0wAaLT6lr9v XIdyV67MUjOQEM DjwHNmQknFr0JbSfcicRd+dWR6NLcc7465 -12-15T13:45:19 Patient Education: Hepatitis C TherapyDATE: 07/24/23Virgie [...] by mouth in the morning. 07/24/23 Taiwo Wharton, FNPmiSOPROStoL 200 mcg tablet Take 1 tablet by mouth SEE-INSTRUCTIONS. Take one tab the night before and one tab the morning of procedure 07/23/23 Jarrod Mercado MDdicyclomine 20 mg tablet Take 1 tablet [...] and calcium containing agents before consulting with catering director or hepatology clinical pharmacist. Drug-drug and drug-food interactions with the new therapy were assessed and reviewed with the patient.Appropriate recommended vaccinations were reviewed and discussed with the patient.Pharmacy Information:The patient was notified that their medication will be filled at [facility]. The patient was instructed to notify their clinic nurse coordinator by phone at [phone] when they receive their medication to coordinate a start date. The patient was educated on the refill process.Follow Up:The monitoring and follow-up plan was discussed with the patient. The patient was instructed to contact their health care provider if their symptoms or health problems do not get better or if they become worse. Virgie Frausto denies having any questions at this time. The patient was encouraged to call the hepatology pharmacist at [phone] with any questions. The patient will be contacted within 21 days after initiation of therapy for a complete medication assessment.Promise Cabezas, PharmDClinical Pharmacist - GI/[phone] madelyn signed by Promise Cabezas [facility] at 07/24/2023 1:55 PM TXM03165-7Zcctvatvt encounter ItaaPM5193-33-14I41:55:31Telephone encounter NoteTXT1.2.840.278541.1.13.104.2.7 .2.307178|9092254347RRRpelommws for patient mzwl47490-5MmhiNBBXYBUZBVBEqgfmadl d C-CDA narrative text[address] SeinFwfgycyxqOddlvrksdVKRE87909063 47OUQYRRIEWZNQXALJTLRGDD6221-13-81 T13:55:311.2.840.949678.1.72.3.15| 1.2.840.209412.1.13.104.2.7.2.7278 79_[id number] [facility] 2023-04-28 15:51:58 PBokz7R54lbnma9iIoa1 i0E/s9Fl5nDGuZ MOcgCRIcZijd6Ggcn3BiFHpJcpRAzm4451 -09-19T15:51:58 Pt requesting refill. 91766-4Bsfjbtidp encounter ZwfsAS7431-39-67J81:52:33Telephone encounter NoteTXT1.2.840.722007.1.13.104.2.7 .2.648478|5314119844UKWwinmjeit for patient aspn76088-7ImhbAQ690140143Suxtbys Salazar RN[address] UwmbPsqgrkbvlYwksopxsfRLMQ81930789 67OUIPAGHCLPHTBOHJEDIYHE5643-60-25 T15:52:331.2.840.264689.1.72.3.15| 1.2.840.110630.1.13.104.2.7.2.7278 [id number] Varsha Garcia RN [facility] 2023-04-22 08:25:36 EGEuVCfz/i/rb+cNE9Bq 7nPfWYESl2gstw sbhGRETxV1teekGL17BBGNlgZqLk8S9742 -09-13T08:25:36 No further action needed. 47865-7Suztplanu encounter AlwnNL9400-89-50R50:26:06Telephone encounter NoteTXT1.2.840.835134.1.13.104.2.7 .2.825433|9357800123ZVFhjntasgf for patient uizt42252-4OgdbGI460464062Zcryza Hayes Rey [address]TXTX[address] 66UONROXBYZKGMTBDQKIKHRJ3141-17-14 T08:26:061.2.840.944443.1.72.3.15| 1.2.840.174714.1.13.104.2.7.2.7278 79_[id number] Malena Rey MA [facility] 2023-04-22 08:24:57 FrQm/LBK8bOMkScENm4X 2O2xJByVQ/Wv9Y /4MHoWtmIQtDs3QqLGxzeQTmxzfmDW8956 -09-13T08:24:57 No further action needed. 06307-7Tdblfuoav encounter CxicOD4537-72-32K82:25:23Telephone encounter NoteTXT1.2.840.661821.1.13.104.2.7 .2.912930|6544627129JPLecxfbgqk for patient afzk01120-3GiftHO485361534Cswufn Hayes Candido [address]TXTX[address] 41EYVJKCRIYDDGCOAUCOBHPU2335-08-94 T08:25:231.2.840.761926.1.72.3.15| 1.2.840.933125.1.13.104.2.7.2.7278 [id number] Malena Rey [facility] 2023-04-21 17:57:48 5gDpWUUHQf1sFTJQ4xtG 3A8VY5qY2KHuMz CYQ8QGPugRJVY5OkjYIqzwtCwncHoz8047 -09-12T17:57:48 Referral/ConsultHep C w/o coma, chronic- Alternative therapy sent to [facility] pharmacy- Consult/Referral Clinical Pmo Project Manager 54831-3Glvmjjrsc encounter NkpeSG9604-07-21X69:58:50Telephone encounter NoteTXT1.2.840.160641.1.13.104.2.7 .2.898213|7447594844RRQekdxtsua for patient jbkb95518-2NjktDBXEGYOWVP[address] TrrgXaoadqatmFprkeqvqhJAIA06462644 46XUNLRUVVQTHZRMSRUVOVTD5598-38-34 T17:58:501.2.840.015170.1.72.3.15| 1.2.840.531028.1.13.104.2.7.2.7278 79_[id number] [facility] 2023-04-21 17:15:42 2QCXjEEZyU8p9MsA5Kj4 r0UnB1wlVqtlcx 9/tQ5dLSrKDTqMW7cXsnKjrj8DWeOr2253 -09-12T17:15:42 Alternative Medication Hep C w/o coma, chronic- Alternative Rx sent, let patient know, and to follow-up as scheduled.- sofosbuvir-velpatasvir (EPCLUSA) 400-100 mg; Take 1 tablet by mouth in the morning. Dispense: 84 tablet; Refill: 0 Cheikh Boyle MD, MPHAssistant Professor, Department of [facility] [place]04/21/2023 5:16 PMFuture Appointments In 1 week Nurse, [facility] In 2 weeks Cheikh Boyle MD [facility] [place], [facility] 34894-0Trdvogxod encounter EvyoAL4504-64-06P51:16:49Telephone encounter NoteTXT1.2.840.409404.1.13.104.2.7 .2.314775|4645986545AGBanskfbuy for patient juxo06046-4ApnjWEWZRKRLJG[address] PivyXnjkqehnoZkdxcsfbvKAEE45787978 30SJFCXCGCYIGESGNUYQAFON8358-86-47 T17:16:491.2.840.902919.1.72.3.15| 1.2.840.662695.1.13.104.2.7.2.7278 79_[id number] [facility] 2023-04-21 16:06:22 BJ70T3Ys36GYDjCA2u93 fy1EQNOjTHygHp jy1IH8oRMrOFrVy0mSCdpppT7N6Ohz3443 -09-12T16:06:22Summary: PA denial Images from the original [...] questions, please reach out to me.Thank you. 32383-8Rqudgtlhi encounter LnyyKG7914-29-45R18:12:17Telephone encounter NoteTXT1.2.840.707651.1.13.104.2.7 .2.042721|0455049351JRFtpenybsb for patient qqcd15890-9PbolOA259073197Pfmco [id number] 07XXOFOMAOIZTYNPLMRNZQHD4137-38-18 T16:12:171.2.840.181054.1.72.3.15| 1.2.840.539470.1.13.104.2.7.2.7278 79_[id number] [facility] 2023-04-21 11:23:27 jrcxB6j32CHOeei75k28 0++NPNrVy5yK0n ahOtC8B+OHQsbqiAaPHdCKDroFEgKG3824 -09-12T11:23:27 Pt is calling wanting update on med alternative. 15333-8Mzjpwsvmi encounter SxgnZW8966-91-20E15:24:28Telephone encounter NoteTXT1.2.840.009480.1.13.104.2.7 .2.738633|0029916525PLSdqwsemmb for patient bujo10005-9TkwkQV444259971Izgxa [address]TX[address] 69YGXOUFHXQQAZLPTFCVAXYC2641-01-65 T11:24:281.2.840.726918.1.72.3.15| 1.2.840.977480.1.13.104.2.7.2.7278 79_[id number] Nata Perdomo [facility] 2023-04-20 15:26:40 vseDrgbyDMqGTUyfUi26 prteXXuQ5m6ouW gjTeyo40q/qSFxHoKxpPWYV6neO+C01152T15:26:40 Spoke with [facility] pharmacy. PA denied for Mavyret, Epclusa is preferred alternative. Can you please change rx to Epclusa? Thank You! 29412-1Cukdjdacf encounter ZfpoCQ6566-20-50K39:28:11Telephone encounter NoteTXT1.2.840.466858.1.13.104.2.7 .2.094582|3850558523YAVeatwxynp for patient wocj85794-5BdxmVR351457356Ivfyq A Case RN[id number] 06BTCSXXHGMPKTHZRNWPEKDE0417-09-89 T15:28:111.2.840.176280.1.72.3.15| 1.2.840.359192.1.13.104.2.7.2.7278 79_[id number] Sonal Pelayo Case [facility] 2023-04-14 11:17:57 67BCltEHRvam9hl98MNG s39IP38BTSEdUI 8ym+qElGJhjXaQch1SG05F/zp5v1+C20T11:17:57 Pt called and states that medication is needing a prior authorization. Please advise.glecaprevir-pibrentasvir (MAVYRET) 100-40 mg 04083-7Magxseoxq encounter MclqST7383-21-52D63:19:31Telephone encounter NoteTXT1.2.840.467392.1.13.104.2.7 .2.520337|0808428109EEGhptdynbd for patient cwwt52919-2PnrfTR62792940Pcpnail R MarroquinUT[address] [id number] 48YGAPUCAFOMOHBKGNBVPTNW0078-15-17 T11:19:311.2.840.609414.1.72.3.15| 1.2.840.876645.1.13.104.2.7.2.7278 79_[id number] Steph Pollard [facility] 2023-03-30 17:06:36 0RuN8YBwL9E2qknPp7aj vzu7ebLZFegmUp tkYAxPLsux1WjZmfNHme16EOTi79WO0622 -08-21T17:06:36 Refill denied. Pt needs office visit. [...] MOSS Reason for Refusal: Patient needs appointment 48932-7Fefqjxfut encounter TmlnXX1924-61-72S97:11:31Telephone encounter NoteTXT1.2.840.767195.1.13.104.2.7 .2.765635|6485733560HTQbrfdeldq for patient ngoi28120-1TuakQL725115141Ehayee Phillips [address] DdxxYrwnkmhxuBwgunquocAVEU76818940 60HYKCDTDCWMHNXIQNTCHCXV7384-08-76 T17:11:311.2.840.277775.1.72.3.15| 1.2.840.967445.1.13.104.2.7.2.7278 79_[id number] Blanka Moss LVN [facility] 2023-03-30 16:59:54 a8P/eyZM9umGIScboYeY eK7ubvBQoInJbM xSlB19TKrovgPhCxdylPzqT0HBRsJ09308 -08-21T16:59:54 Message from [employer]:Refills have been requested for the following medications: topiramate 50 mg tablet [Thierno Bueno]Preferred pharmacy: [id number] - [place], [place] - [address] [place] [address] [facility] method: PickupMedication renewals requested in this message routed separately: carBAMazepine 400 mg 12 hr tablet [Cheikh Boyle] doxepin 50 m g capsule [Cheikh Boyle] buPROPion SR (WELLBUTRIN SR) 150 mg SR tablet [Cheikh Boyle] 72027-0Mtvivdjum encounter JkayFB2905-65-24O01:59:54Telephone encounter NoteTXT1.2.840.803116.1.13.104.2.7 .2.294196|3230092674DAPbaoxpkow for patient urtt74382-0CyrvUGAUASSUVX[address]vdGalvestonGalvestonTXTX[address] 59ENTVZYEREVOSKVWQSTPWPU0695-23-50 T16:59:541.2.840.342821.1.72.3.15| 1.2.840.895648.1.13.104.2.7.2.7278 79_[id number] [facility] 2023-03-27 14:08:05 avpsjJoplkLpuB94AHM1 6iS/bot94qIxl5 StYxb1YK8nZqcioA7MygKl52J/XV2R1790 -08-18T14:08:05 Spoke with pt to follow up. She states that she did not go back to the er for pain. She states that she is alternating naproxen and tylenol and the pain is slightly improving. Pain scale-6. Bleeding is light spotting.Pt given an appt for Thursday with Dr Mercado, strong er warnings given.ER visit at [facility] on 03/25- pt reports that [...] for visit on Thursday. Pt verbalizes understanding. 63555-8Rcdwpttsh encounter FvxqIM0501-20-71S27:12:35Telephone encounter NoteTXT1.2.840.081381.1.13.104.2.7 .2.005579|2068945654BUYubfntnnh for patient yuud32069-0BzceQP609653495Zqeup A Case [address]TXTX[address] 76XHIQCAMXWCPAUXLGSHOIZW4590-17-20 T14:12:351.2.840.432543.1.72.3.15| 1.2.840.681941.1.13.104.2.7.2.7278 79_[id number] Sonal Espinoza [facility] 2023-03-26 20:13:24 4rODOgWk6atCn/xBjI+H 3WpMqge+S29acA mXVWNa8i8PKr/P1atzd7KFtVE/cpPz6967 -08-17T20:13:24 Informed pt per provider she needs to go to the er. 37800-6Mkpuhwayr encounter QiyhHZ1162-96-08O40:14:37Telephone encounter NoteTXT1.2.840.739732.1.13.104.2.7 .2.440412|0846303173KESjugffyls for patient vawa26738-5GchaYM881807664Kgprx L Minter MA[address]TXTX[address] 37WJJDELJWSUOKJBLBSQPSDV1802-74-77 T20:14:371.2.840.750467.1.72.3.15| 1.2.840.612192.1.13.104.2.7.2.7278 79_[id number] Mary Ellen Molina MA [facility] 2023-03-26 19:54:03 mydFby16FX7Q03dPh4DH hDfSRWEgShL6he GxQzSovCKbJ7LsBhxm7mMFsCinO8uS8476 -08-17T19:54:03 Please advise 51178-3Ogocmalne encounter VgieUV3804-84-02F25:54:13Telephone encounter NoteTXT1.2.840.198432.1.13.104.2.7 .2.816991|3392429538QVSnihwvlee for patient lqxi30858-1PtiqFTMIBTABPZ[address]vdGal[address]onGalvestonTXTX[address] 31RIMLVXSEXBMQLPDHQBKFKM8748-58-05 T19:54:131.2.840.837554.1.72.3.15| 1.2.840.529685.1.13.104.2.7.2.7278 79_[id number] [facility] 2023-03-26 16:52:04 QGch0JI1SMJxUju92yRS eTh98eT951WhIp ozkqMpxghOzRMpybGjzHfOvEgxKJFA8703 -08-17T16:52:04 Patient would like a nurse to call her. She is in a lot of pain. 88203-5Temxuymcj encounter TisrCM5723-71-01I45:53:17Telephone encounter NoteTXT1.2.840.845094.1.13.104.2.7 .2.547692|3799750483VYPjfrutdjn for patient fted59494-4SjvvOD416935011Nzppc K [address] 21OCCIEKGMIIHLLFFZXEYSXJ2967-37-58 T16:53:171.2.840.548420.1.72.3.15| 1.2.840.731706.1.13.104.2.7.2.7278 79_[id number] Candace Last [facility] 2023-03-26 12:14:32 qg7ehTUppQk+LZm2Xuf1 5FtYh4Fh+KFXYY 0AAL8RQzdtaTCfw+CZwDMrN6HPe7DP2175 -08-17T12:14:32 Mchart message sent.CARLOTTA ROSADO RN 03/26/2023 12:14 PM 11649-1Caxqaefmq encounter YgjaIH0647-90-35S75:14:46Telephone encounter NoteTXT1.2.840.105043.1.13.104.2.7 .2.817145|1036584758ODKvyossrpb for patient xyvx38582-0VpekCX594686921Xpnkifjw h G Cervantes [address]TXTX[address] 70BBUWLOZDLLXIHCWPJUBNVS1535-58-67 T12:14:461.2.840.525173.1.72.3.15| 1.2.840.986528.1.13.104.2.7.2.7278 79_[id number] Carlotta Rosado [facility] 2023-03-26 11:05:17 7VZo60y9yONgDyCNWOaW n7zTbcrm9bj9Tr f/Xkb9RqgHpSI43nCxpLwC7UBzdh+e202T11:05:17 Pt called and states that she is taking Naproxen and Tylenol. She states that medication isn't working and is requesting to speak with a nurse to possibly get something called in. She tried getting sooner appointment, but there were no sooner available times. Please advise. Call back number: [phone] signed by Steph Pollard at 03/26/2023 11:06 AM WZP48554-5Ucqpgcqoo encounter EygaII8300-20-00U48:06:53Telephone encounter NoteTXT1.2.840.413618.1.13.104.2.7 .2.710684|2967742294SDVdtztujyc for patient lcrb26380-3XvvrSK17363396Jhtutgi R Marroquin[address] KtylTgqcddpeoUaydalwhgZXHC80231069 67KCADRVWLABLFFLQXXISMOL5767-96-39 T11:06:531.2.840.775908.1.72.3.15| 1.2.840.028674.1.13.104.2.7.2.7278 79_[id number] Steph Pollard [facility] 2023-03-25 16:09:03 wSP4MXoMfmdGfItEpKxr MxteiPlb3s4aEi N0/E0kW0oj+eMDYaHtiWz8GVVXy7ck4701 -08-16T16:09:03 Contacted patient. Patient states she is currently at ER. Patient advised to contact us for any f/u needed after visit. Ulices Adler RN 03/25/2023 4:09 PM 16683-6Ftuibtwqw encounter KscfZJ0269-04-54W89:10:21Telephone encounter NoteTXT1.2.840.110362.1.13.104.2.7 .2.021854|8026717893EWJyrxfidmf for patient yqdz41271-5XjwcXE594027469Tudmckt Collins RNUT[address]TXTX[address] 57OMSDQULHADVMVCRBCEMIIQ2003-84-57 T16:10:211.2.840.770284.1.72.3.15| 1.2.840.676675.1.13.104.2.7.2.7278 79_[id number] Ulices Adler RN [facility] 2023-03-25 09:58:02 jmUAMAuPaY64uBJVicTC iC28ccEe4gjEwq /x3w4Z8qMdEHt7FGGbN8RirM9pvYUI6198 -08-16T09:58:02 Attempted to contact patient. No answer, unable to leave . is full. Ulices Adler RN 03/25/2023 9:58 AM 26189-5Vcyoqyamn encounter ZdtgTN2473-56-81T02:58:39Telephone encounter NoteTXT1.2.840.964145.1.13.104.2.7 .2.229691|8770221769MEVuywnvexq for patient dxga33454-5AioxKLQHTVOJPY[address]TXTX[address] 44LRUAQYHXSWKGDEOVAKNKCR6557-63-06 T09:58:391.2.840.461551.1.72.3.15| 1.2.840.674650.1.13.104.2.7.2.7278 79_[id number] [facility] 2023-03-24 16:34:23 fV0YDWF9YPILkuk8g2Yd hlUNaQK1On1ss1 v4UuBgtrXX7tLkx6YWEFpn4y8TRTdR7238 -08-15T16:34:23 Attempted to contact patient. No answer, VM left. Ulices Adler RN 03/24/2023 4:34 PM 17080-3Befnkhkhc encounter YiitRJ2033-67-45R12:34:49Telephone encounter NoteTXT1.2.840.256330.1.13.104.2.7 .2.400610|[id number] for patient epbk64569-9UgayJCPGCRGIKE[address] Mp[id number] 62SHRPOLLQESPLZUBJQMORXG6601-36-81 T16:34:491.2.840.268908.1.72.3.15| 1.2.840.780350.1.13.104.2.7.2.7278 [id number] [facility] 2023-03-24 16:16:03 qGUMgMBhCYjA235VYfsx 0hNvVo1dFWqGKM xuBIO2+SYyyH3+aOFpwLWxQsE7Nwvb5936 -08-15T16:16:03 Per pt she received her depo last month. Pt thinks that she may be having effects from depo. Pt states that she has been bleeding heavily, and is having severe abdominal pain. She rates her pain a 9/10. She is concerned that a cyst has popped and is requesting to speak with a nurse. Please advise. Call back number: [phone] signed by Steph Pollard at 03/24/2023 4:24 PM OBB89032-1Luqtonlmx encounter VlpgCW6245-70-87G55:24:54Telephone encounter NoteTXT1.2.840.911968.1.13.104.2.7 .2.682908|[id number] for patient grqp70777-6CpsfWR23124019Skxsgem R [address] Ff[id number] 04OKKVFTPXFCZXRKASTDIFZC3967-89-01 T16:24:541.2.840.668500.1.72.3.15| 1.2.840.403008.1.13.104.2.7.2.7278 [id number] Steph Pollard [facility]
--- NOTE | 2023-12-22 18:54 | EDPHYS ---
Physician Documentation [facility] Name: Alie Gee Age: 38 yrs Sex: Female : 1985 Arrival Date: 12/22/2023 Time: 18:25 Bed 12 Private MD: ED Physician Eligio Verma HPI: 12/21 18:49 This 38 yrs old Black Female presents to ER via Unassigned with complaints of Ear Pain, kb Sore Throat, Headache. 18:49 Pt is a 38 year old female who presents for bilateral ear pain, headache, sore throat kb that started 3 days ago. Unknown fever. Denies cough, congestion. . Historical: - Allergies: 18:52 NKA; iw - Home Meds: 18:52 None [Active]; iw - PMHx: 18:52 Bipolar disorder; Heart Murmur; Schizophrenia; iw - PSHx: 18:52 section; x3; Ligation of fallopian tube; Total abdominal hysterectomy; iw - Immunization history:: Adult Immunizations not up to date. - Infectious Disease History:: Denies. - Social history:: Smoking status: Patient reports the use of cigarette tobacco products. ROS: 18:49 Constitutional: As per HPI kb Exam: 18:53 Constitutional: This is a well developed, well nourished patient who is awake, alert, kb and in no acute distress. Head/Face: Normocephalic, atraumatic. Cardiovascular: Regular rate Respiratory: Respirations even and unlabored. No increased work of breathing. Talking in full sentences Skin: Warm, dry with normal turgor. Normal color. MS/ Extremity: Pulses equal, no cyanosis. Neurovascular intact. Full, normal range of motion. Neuro: Awake and alert, GCS 15, oriented to person, place, time, and situation. Moves all extremities. Normal gait. 18:53 ENT: Ear canal(s): purulent discharge, that is minimal, in the right canal, swelling, that is moderate, of the right canal, Posterior pharynx: is normal, Vital Signs: 18:51 BP 139 / 93; Pulse 91; Resp 16; Temp 98.2; Pulse Ox 100% on R/A; Weight 106.14 kg; iw Height 5 ft. 5 in. ; Pain 8/10; 18:51 Body Mass Index 38.94 (106.14 kg, 165.1 cm) iw 18:51 Pain Scale: Adult iw MDM: 18:31 Patient medically screened. kb 18:53 Differential diagnosis: otitis media, otitis externa, ruptured TM, foreign body, acute kb otalgia. Data reviewed: vital signs, nurses notes. Test considered but Not performed: Labs: strep test considered, but no redness, swelling or exudate on exam. Pt reports pain in throat is intermittent. Counseling: I had a detailed discussion with the patient and/or guardian regarding the historical points, exam findings, and any diagnostic results supporting the discharge/admit diagnosis, the need for outpatient follow up, a family practitioner, to return to the emergency department if symptoms worsen or persist or if there are any questions or concerns that arise at home. Administered Medications: 18:56 Drug: Ibuprofen PO 800 mg PO once Route: PO; ko1 Disposition Summary: 12/22/23 18:54 Discharge Ordered Notes: Location: Home kb Condition: Stable kb Diagnosis - Other otitis externa, right ear kb Followup: kb - With: Emergency Department - When: As needed - Reason: Worsening of condition Followup: kb - With: Private Physician - When: 2 - 3 days - Reason: Recheck today's complaints, Continuance of care, Re-evaluation by your physician Discharge Instructions: - Discharge Summary Sheet kb - Otitis Externa, [id number] kb - Ear Drops, Adult, [id number] kb Forms: - Medication Reconciliation Form kb - Antibiotic Education kb - Prescription Opioid Use kb - Patient Portal Instructions kb - Leadership Thank You Letter kb Prescriptions: - Ciprodex 0.3-0.1 % Otic drops, suspension - instill 4 drops OTIC route every 12 hours for 7 days , for ears ONLY; 1 unit; kb Refills: 0, Product Selection Permitted Signatures: Domi Dougherty, JOHN SHIRLEY-Ashli Corrales, RN RN iw Rachel Pacheco RN RN ko1
--- NOTE | 2023-12-22 18:54 | ER ---
Nurse's Notes [facility] Name: Alie Gee Age: 38 yrs Sex: Female : 1985 Arrival Date: 12/22/2023 Time: 18:25 Bed 12 Private MD: Diagnosis: Other otitis externa, right ear Presentation: 12/21 18:51 Chief complaint: Patient states: headache, sore throat, jace ear pain X 3 days. iw Coronavirus screen: Client presents with at least one sign or symptom that may indicate coronavirus-19. Ebola Screen: Patient negative for fever greater than or equal to 101.5 degrees Fahrenheit, and additional compatible Ebola Virus Disease symptoms Patient denies exposure to infectious person. Patient denies travel to an Ebola-affected area in the 21 days before illness onset. No symptoms or risks identified at this time. Initial Sepsis Screen: Does the patient meet any 2 criteria? No. Patient's initial sepsis screen is negative. Does the patient have a suspected source of infection? No. Patient's initial sepsis screen is negative. Risk Assessment: Do you want to hurt yourself or someone else? Patient reports no desire to harm self or others. Onset of symptoms was December 19, 2023. 18:51 Method Of Arrival: Ambulatory iw 18:51 Acuity: CAROLYN 4 iw Historical: - Allergies: 18:52 NKA; iw - Home Meds: 18:52 None [Active]; iw - PMHx: 18:52 Bipolar disorder; Heart Murmur; Schizophrenia; iw - PSHx: 18:52 section; x3; Ligation of fallopian tube; Total abdominal hysterectomy; iw - Immunization history:: Adult Immunizations not up to date. - Infectious Disease History:: Denies. - Social history:: Smoking status: Patient reports the use of cigarette tobacco products. Screenin:01 [facility] ED Fall Risk Assessment (Adult) History of falling in the last 3 months, ko1 including since admission No falls in past 3 months (0 pts) Confusion or Disorientation No (0 pts) Intoxicated or Sedated No (0 pts) Impaired Gait No (0 pts) Mobility Assist Device Used No (0 pt) Altered Elimination Yes (1 pt) Score/Fall Risk Level 0 - 2 = Low Risk Oriented to surroundings, Maintained a safe environment, Educated pt \T\ family on fall prevention, incl call for assistance when getting out of bed, Assessed \T\ reinforced patient's understanding of fall precautions, Provided non-skid footwear, Hourly rounding (assess needs \T\ fall precautionary measures) done, Used ambulatory aids as needed (educated on \T\ assisted with), Used gait belt as appropriate. Abuse screen: Denies threats or abuse. Denies injuries from another. Nutritional screening: No deficits noted. Tuberculosis screening: No symptoms or risk factors identified. Assessment: 19:01 General: Appears in no apparent distress. Behavior is calm, cooperative, appropriate ko1 for age. Pain: Complains of pain in headache and ear pain. Neuro: No deficits noted. Cardiovascular: No deficits noted. Respiratory: No deficits noted. GI: No signs and/or symptoms were reported involving the gastrointestinal system. : No deficits noted. EENT: Reports difficulty swallowing. Derm: No deficits noted. Musculoskeletal: No deficits noted. Vital Signs: 18:51 BP 139 / 93; Pulse 91; Resp 16; Temp 98.2; Pulse Ox 100% on R/A; Weight 106.14 kg; iw Height 5 ft. 5 in. ; Pain 8/10; 18:51 Body Mass Index 38.94 (106.14 kg, 165.1 cm) iw 18:51 Pain Scale: Adult iw ED Course: 18:28 Patient arrived in ED. mr 18:30 Domi Dougherty, [facility] kb 18:30 Eligio Verma MD is Attending Physician. kb 18:52 Arm band placed on. iw 18:53 Triage completed. iw 19:01 Patient has correct armband on for positive identification. Bed in low position. Call ko1 light in reach. Provided Education on: call light. 19:01 No provider procedures requiring assistance completed. Patient did not have IV access ko1 during this emergency room visit. Administered Medications: 18:56 Drug: Ibuprofen PO 800 mg PO once Route: PO; ko1 Medication: 19:01 VIS not applicable for this client. ko1 Outcome: 18:54 Discharge ordered by . kb 19:12 Discharged to home ambulatory, with significant other, vc1 19:12 Condition: good 19:12 Discharge instructions given to patient, significant other, Instructed on discharge instructions, follow up and referral plans. medication usage, Demonstrated understanding of instructions, follow-up care, medications, Prescriptions given X 1, 19:12 Patient left the ED. vc1 Signatures: Domi Dougherty, DIETETIC TECHNICIAN REGISTERED-C DIETETIC TECHNICIAN REGISTERED-CkSunita Galvan, Reg Reg mr Ashli Torres, TOLU RN iw Steph Roy RN RN vc1 Rachel Pacheco RN RN ko1 Corrections: (The following items were deleted from the chart) 18:53 18:51 BP 139 / 93; Pulse 91bpm; Resp 16bpm; Pulse Ox 100% RA; Temp 98.2F; iw iw
[2023-12-22] MEDS ORDERED: IBUPROFEN 400 MG TAB ONE (18:56)
[2023-12-22 19:36] VITALS: BP 139/93; TEMP 98.2; O2SAT 100
== END 2023-12-22 19:12 | disposition home or self-care (01) ==
LOC: ER 18:25
DX: H60.8X1 Other otitis externa, right ear (principal); Z72.0 Tobacco use
CPT/HCPCS: 99283

== ENCOUNTER 2024-03-14 01:40 | Emergency (ER) | payer OTHER ==
--- OUTSIDE RECORDS SUMMARY | 2024-03-14 01:50 | XMS REPORT | Continuity of Care Document ---
Author Name Unknown Address [address] [facility] [place] [address] [facility] thconnect Address [address] [facility] [address] [place] [address] Care Team Providers Care Assistant Buyer Name Role Phone Cheikh Boyle MD Primary Care Physician + [phone] JAN ESTRADA Attending Clinician Unavailable Cheikh Boyle MD Attending Clinician [phone] Frannie Smith PA-C Attending Clinician [phone] JARROD MERCADO Attending Clinician Unavailable JARROD MERCADO Attending Clinician Unavailable TAIWO ALEGRIA Attending Clinician Unabette iljerad Doctor Unassigned, Cash Attending Clinician U Jan Mina MD Attending Clinician [phone] Raulito Promise Merrill Attending Clinician Unavailable CHEIKH BOYLE Attending Clinician Unavailable SERGO VIERA Attending Clinician Unavailable Sergo David Attending Clinician [phone] Unknown, Attending Attending Clinician UnavailMalena Carter MD Attending Clinician [phone] MALENA GARCIA Attending Clinician Unavailable Troy Khan MD Attending Clinician [phone] TROY KHAN Attending Clinician Unavailab tommie Almeida, Kalyani Lab Main Attending Clinician UnavailNICANOR Cancino Attending Clinician Unavailable Rafael RICHARD, Nicanor Attending Clinician [phone] Akiko [facility] LIAISONTaiwo Corona Attending Clinician [phone] Ebrahim [facility] LIAISONSera Corona Attending Clinician [phone] FRANNIE SMITH Attending Clinician Unavailable Lab, c Attending Clinician Unavailable ARIANNA WHITMORE Attending Clinician Unavailable Arianna Whitmore MD Attending Clinician [phone] Guajardo RT, Kimberly C Attending Clinician Unavailab ANDRE Kennedy Attending Clinician Unavailable Therapist, [facility] Pulmonary Attending Clinician Shirley vailable SERA WORTHY Attending Clinician Unavailable 2, [facility] Lab Attending Clinician Unavailable Red Cramer MD Attending Clinician + [phone] Nurse, [facility] Women's Health Attending Clinician Un available UNKNOWN, ATTENDING Attending Clinician Unavailab Sabiha Hernandez RN Attending Clinician Unavailable Only, Ang Mark Test Attending Clinician UnavailBlanka Vera LVN Attending Clinician Unavail able Kimmy Prieto RN Attending Clinician Unavailable CAMELIA CORTEZ Attending Clinician Unavailable NII BONILLA Attending Clinician Unav ailable Chad RICHARD, Nii Pruitt Attending Clinician + CIARRA FRANK Attending Clinician Unavailable Ciarra Zhu Attending Clinician [phone] ADELINE WILLIAM Attending Clinician Unavailable LIZANDRO KEATING Attending Clinician Unavailable Lizandro Rodriguez Attending Clinician [phone] BRITTANY BELCHER Attending Clinician Unavailable NATALIE ALMENDAREZ Attending Clinician Unavailable Natalie Mills Attending Clinician [phone] Nurse, [facility] Attending Clinician Un available Francis Valentin Attending Clinician [phone] FRANCIS MORENO Attending Clinician Unavailzoraida Kaur RN, Xochitl Stanford Attending Clinician Unavailab SHANNAN Morgan Attending Clinician Unavailab Shannan Fox Attending Clinician + [phone] Provider, [facility] Attending Clinician Unavailable Vaccine, [facility] Fam Attending Clinician Unav ailable Dominic Peralta DO Attending Clinician [phone] DOMINIC PERALTA Attending Clinician Unavail able Brittany Belcher MD Attending Clinician [phone] Micheal Mayer DO Attending Clinician [phone] GAMALIEL GREER III Attending Clinician Unavailabl Susana Sandoval Attending Clinician Unavailable Jeremiah PACSusana Attending Clinician [phone] Provider, Urgent Care Day Attending Clinician Un available OMAGHOMI, OMAYEMI Attending Clinician Unavailabl e [facility], Omayemi Attending Clinician +[phone] Tomasa Chaidez Attending Clinician [phone] Kaley Coello RN Attending Clinician Unavaila TOMASA [...] Clinician Unavaila ALBA Marrero Attending Clinician Unavailable [facility], [facility] Cardio Fac Attending Clinician Unavail able 2, [facility] Cardio Fac Room Attending Clinician Unava ilable Delmar Ramirez PT, Melisa Attending Clinician Un available Kyle Ortiz MD Attending Clinician [phone] MICHEAL MAYER Attending Clinician Unavailable Gamaliel Johnson MD Attending Clinician + [phone] Filomena Torres DO Attending Clinician +[phone] JARROD MERCADO Admitting Clinician Unavailable Jarrod Mercado MD Admitting Clinician [phone] ARIANNA WHITMORE Admitting Clinician Unavailable CHEIKH BOYLE Admitting Clinician Unavailable NII BONILLA Admitting Clinician Unav ailable CIARRA FRANK Admitting Clinician Unavailable NATALIE ALMENDAREZ Admitting Clinician Unavailable BRITTANY BELCHER Admitting Clinician Unavailable Brittany Belcher MD Admitting Clinician Susana DANIELS Admitting Clinician Unavailable MICHEAL MAYER Admitting Clinician Unavailable Payers Payer Name Policy Type Policy Number Effective Date Expirati on Date Source [facility] PAUL KAUR [id number] 2017 00:00:00 SERGIO JAVIER FROM [facility] [id number] 2022 00:00:00 Problems Condition Name Condition Details Condition Category Status Onset Date Resolution Date Last Treatment Date Treating Clinician Comments Source Status post laparoscop ic hysterecto my Status post laparoscop ic hysterecto my Disease Active 09-02 00:00: 00 [facility] Status post bilateral salpingect fer Status post bilateral salpingect fer Disease Active 09-02 00:00: 00 [facility] Status post cystoscopy Status post cystoscopy Disease Active 09-02 00:00: 00 [facility] Preop cardiovasc ular exam Preop cardiovasc ular exam Disease Active 08-26 00:00: 00 [facility] PFO (patent foramen ovale) PFO (patent foramen ovale) Disease Active 08-26 00:00: 00 [facility] Cigarette smoker Cigarette smoker Disease Active 08-26 00:00: 00 [facility] Moderate episode of recurrent major depressive disorder Moderate episode of recurrent major depressive disorder Disease Active - 00:00: 00 [facility] Pre-op examinatio n Pre-op examinatio n Disease Active - 00:00: 00 [facility] Abnormal uterine bleeding Abnormal uterine bleeding Disease Active 2022-08 2-14 00:00: 00 [facility] Tachycardi a Tachycardi a Disease Active 2022-08 0-04 00:00: 00 [facility] Mild intermitte nt asthma without complicati on Mild intermitte nt asthma without complicati on Disease Active 2022-08 0-04 00:00: 00 [facility] Bacterial vaginosis Bacterial vaginosis Disease Active 8-23 00:00: 00 [facility] COVID-19 virus infection COVID-19 virus infection Disease Active 8-23 00:00: 00 [facility] Migraine equivalent syndrome Migraine equivalent syndrome Disease Active 8-23 00:00: 00 [facility] Hemorrhagi c ovarian cyst Hemorrhagi c ovarian cyst Disease Active 3-30 00:00: 00 [facility] Obesity (BMI 30-39.9) Obesity (BMI 30-39.9) Disease Active 4-27 00:00: 00 [facility] Fibromyalg ia syndrome Fibromyalg ia syndrome Disease Active 3-10 00:00: 00 [facility] 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 simplex virus 2) infection Disease Active 2019-08 00:00: 00 [facility] Muscle spasms of both lower extremitie s Muscle spasms of both lower extremitie s Disease Active 2019-08 00:00: 00 [facility] Muscle spasms of both lower extremitie s Muscle spasms of both lower extremitie s Disease Active 2019-08 00:00: 00 [facility] Need for prophylact ic vaccinatio n against hepatitis A and hepatitis B Need for prophylact ic vaccinatio n against hepatitis A and hepatitis B Disease Active 8-06 00:00: 00 [facility] Virilizati on Virilizati on Disease Active 8-04 00:00: 00 [facility] Shortness of breath Shortness of breath Disease Active 5- 00:00: 00 [facility] SOB (shortness of breath) on exertion SOB (shortness of breath) on exertion Disease Active 5- 00:00: 00 [facility] Acneiform rash Acneiform rash Disease Active 4-21 00:00: 00 [facility] Current smoker Current smoker Disease Active 3-27 00:00: 00 [facility] Nicotine dependence with current use Nicotine dependence with current use Disease Active 3 00:00: 00 [facility] Medication care plan discussed with patient Medication care plan discussed with patient Disease Active 324 00:00: 00 [facility] Former smoker Former smoker Disease Active 3-20 00:00: 00 [facility] Menetrier' s disease Menetrier' s disease Disease Active 320 00:00: 00 [facility] Hep C w/o coma, chronic Hep C w/o coma, chronic Disease Active 2- 00:00: 00 [facility] Right lower quadrant abdominal pain Right lower quadrant abdominal pain Disease Active 1-22 00:00: 00 [facility] Bronchitis Bronchitis Disease Active - 00:00: 00 [facility] Substernal chest pain Substernal chest pain Disease Active 1- 00:00: 00 [facility] Cysts of both ovaries Cysts of both ovaries Disease Active 1-08 00:00: 00 [facility] Primary insomnia Primary insomnia Disease Active 1-03 00:00: 00 [facility] Bipolar 1 disorder Bipolar 1 disorder Disease Active 2018-08 00:00: 00 [facility] Nausea and vomiting in adult patient Nausea and vomiting in adult patient Disease Active 2018-08 00:00: 00 [facility] Anxiety Anxiety Disease Active 2018-08 00:00: 00 [facility] Current moderate episode of major depressive disorder, unspecifie d whether recurrent Current moderate episode of major depressive disorder, unspecifie d whether recurrent Disease Active 2018-08 00:00: 00 [facility] Cigarette nicotine dependence with other nicotine-i nduced disorder Cigarette nicotine dependence with other nicotine-i nduced disorder Disease Active 2018-08 00:00: 00 [facility] Schizophre era with prominent negative symptoms Schizophre era with prominent negative symptoms Disease Active 2018-08 00:00: 00 [facility] IVDU (intraveno us drug user) IVDU (intraveno us drug user) Disease Active 2018-08 2-16 00:00: 00 [facility] Morbid obesity with body mass index (BMI) of 40.0 to 49.9 Morbid obesity with body mass index (BMI) of 40.0 to 49.9 Disease Active 2018-08 0-17 00:00: 00 [facility] Furuncle of right thigh Furuncle of right thigh Disease Resolve d 7-20 00:00: 00 2020-03-15 00:00:00 2020-03-15 14:12:28 [facility] Carbuncle of thigh Carbuncle of thigh Disease Resolve d 7-20 00:00: 00 2020-03-15 00:00:00 2020-03-15 14:12:22 [facility] Itching Itching Disease Resolve d 4-21 00:00: 00 2020-03-15 00:00:00 2020-03-15 14:12:32 [facility] Vertigo Vertigo Disease Resolve d 2018-08 017 00:00: 00 2020-02-27 00:00:00 2020-02-27 13:45:00 [facility] Chest pain Chest pain Disease Resolve d 5-27 00:00: 00 2020-02-27 00:00:00 2020-02-27 13:44:59 [facility] Chest pain, atypical Chest pain, atypical Disease Resolve d 3-03 00:00: 00 2020-02-27 00:00:00 2020-02-27 13:44:56 [facility] Acute URI Acute URI Disease Resolve d 1-22 00:00: 00 2019-09-10 00:00:00 2019-09-10 21:57:18 [facility] Constipati on, unspecifie d constipati on type Constipati on, unspecifie d constipati on type Disease Resolve d 1-08 00:00: 00 2019-09-10 00:00:00 2019-09-10 21:57:46 [facility] Yeast infection Yeast infection Disease Resolve d 2018-08 2-16 00:00: 00 2019-09-10 00:00:00 2019-09-10 21:59:37 [facility] Cutaneous abscess of groin Cutaneous abscess of groin Disease Resolve d 2018-08 00:00: 00 2019-09-10 00:00:00 2019-09-10 21:59:20 [facility] Hidradenit is Hidradenit is Disease Resolve d 2018-08 00:00: 00 2019-09-10 00:00:00 2019-09-10 21:59:02 [facility] Allergies, Adverse Reactions, Alerts Allergy Name Allergy Type Status Severity Reaction(s) Onset Date Inactive Date Treating Clinician Comments Source NO KNOWN ALLERGIE S Drug Class Active [facility] Social History Social Habit Start Date Stop Date Quantity Comments Source History SDOH Alcohol Frequency [facility] History SDOH Alcohol Std Drinks [facility] History SDOH Alcohol Binge [facility] History of tobacco use Passive smoker [facility] Alcohol intake 2023-09-15 00:00:00 2023-09-15 00:00:00 Current drinker of alcohol (finding) [facility] Alcoholic beverage intake 2023-09-15 00:00:00 2023-09-15 00:00:00 Current drinker of alcohol (finding) [facility] History of Social function 2023-09-02 00:00:00 2023-09-02 00:00:00 [facility] Tobacco Comment 2023-08-31 00:00:00 2023-08-31 00:00:00 Stopped vaping ~1 yr ago (only smokes two cigarettes per day) [facility] Cigarettes smoked current (pack per day) - Reported 2023-08-31 00:00:00 2023-08-31 00:00:00 [facility] Cigarette pack-years 2023-08-31 00:00:00 2023-08-31 00:00:00 [facility] Tobacco use and exposure 2023-08-31 00:00:00 2023-08-31 00:00:00 Smokeless tobacco non-user [facility] Exposure to SARS-CoV-2 (event) 2022-08-06 00:00:00 2022-08-16 11:23:00 Not sure [facility] Alcohol Comment 2021-10-03 00:00:00 2021-10-03 00:00:00 every weekend [facility] Sex assigned at 1985 00:00:00 1985 00:00:00 [facility] Smoking Status Start Date Stop Date Source Smokes tobacco daily 2023-08-31 00:00:00 [facility] Medications Ordered Medication Name Filled Medication Name Start Date Stop Date Current Medication? Ordering Clinician Indication Dosage Frequency Signature (SIG) Comments Components Source benzonatate 200 mg capsule 12-03 00:00: 00 12-14 04:59 :00 No [id number] 200mg Take 1 capsule by mouth 3 (three) times daily as needed for Cough for up to 10 days. [facility] glecaprevir -pibrentasv ir (MAVYRET) 100-40 mg 09-15 12:19: 10 Yes 3{tbl} Take 3 tablets by mouth in the morning. [facility] benzonatate 100 mg capsule 09-15 00:00: 00 Yes [id number] 200mg Take 2 capsules by mouth every 8 (eight) hours as needed for Cough. [facility] acetaminoph en-codeine 300-30 mg tablet 09-15 00:00: 00 09-23 05:59 :00 No [id number] 1{tbl} Take 1 tablet by mouth every 4 (four) hours as needed for Pain (scale 7-10) for up to 7 days. Indication s: acute pain [facility] HYDROcodone -acetaminop hen 5-325 mg tablet 09-08 00:00: 00 09-11 05:59 :00 No [id number] 1{tbl} Take 1 tablet by mouth every 6 (six) hours as needed for Pain (scale 7-10) for up to 2 days. Indication s: acute pain [facility] glecaprevir -pibrentasv ir (MAVYRET) 100-40 mg 09-03 10:43: 47 Yes 3{tbl} Take 3 tablets by mouth in the morning. [facility] simethicone (GAS RELIEF (SIMETHICON E)) chewable tablet 160 mg 09-03 03:00: 00 Yes 160mg 160 mg, Oral, PC+HS, First dose on Thu09/02/23 at 2100, Until Discontinu ed, Routine [facility] docusate (COLACE) capsule 100 mg 09-03 02:00: 00 Yes 100mg 100 mg, Oral, Q12H, First dose on Thu09/02/23 at 2000, Until Discontinu ed, Routine [facility] metroNIDAZO LE (FLAGYL) tablet 500 mg 09-03 02:00: 00 09-10 01:59 :00 No 500mg 500 mg, Oral, Q12H, 14 doses, First dose on Thu09/02/23 at 2000, Last dose on Thu09/09/23 at 0800, Routine
Reason for Anti-Infec tive: Surgical Prophylaxi s
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
Duration of therapy: within 24 hours of surgery [facility] lactated ringers IV infusion 1,000 mL 09-03 01:00: 00 Yes 1000mL at 75 mL/hr, 1,000 mL, IV Infusion, CONTINUOUS , Starting on Thu09/02/23 at 1900, Until Discontinu ed, Routine, PACU [facility] ibuprofen (IBU) tablet 600 mg 09-03 00:52: 14 Yes 600mg 600 mg, Oral, Q6HPRN, Starting on Thu09/02/23 at 1852, Until Discontinu ed, Routine, Pain (scale 4-6) [facility] hydrOXYzine (ATARAX) tablet 25 mg 09-03 00:50: 18 Yes 25mg 25 mg, Oral, Q8HPRN, Starting on Thu09/02/23 at 1850, Until Discontinu ed, Routine, Itching [facility] ondansetron (ZOFRAN (PF)) injection 4 mg 09-03 00:50: 15 Yes 4mg 4 mg, Slow IV Push, Q4HPRN, Starting on Thu09/02/23 at 1850, Until Discontinu ed, Routine, Nausea and Vomiting (N/V) [facility] HYDROcodone -acetaminop hen (NORCO 5) 5-325 mg tablet 2 tablet 09-03 00:50: 12 Yes 2{tbl} 2 tablet, Oral, Q4HPRN, Starting on Thu09/02/23 at 1850, Until Discontinu ed, Routine, Pain (scale 7-10) [facility] acetaminoph en (TYLENOL) tablet 650 mg 09-03 00:50: 06 Yes 650mg 650 mg, Oral, Q6HPRN, Starting on Thu09/02/23 at 1850, Until Discontinu ed, Routine, Pain (scale 1-3) [facility] HYDROcodone -acetaminop hen (NORCO 5) 5-325 mg tablet 1 tablet 09-03 00:30: 00 09-03 00:53 :00 No 1{tbl} 1 tablet, Oral, ONCE, 1 dose, On Thu09/02/23 at 1830, Routine, PACU [facility] FENTanyl PF (SUBLIMAZE (PF)) injection 25 mcg 09-03 00:27: 30 09-03 00:50 :00 No 25ug 25 mcg, Slow IV Push, Q5MIN PRN, 4 doses, Starting on Thu09/02/23 at 1827, Until Discontinu ed, Routine, Pain (scale 4-6), PACU [facility] sodium chloride 0.9 % irrigation solution 09-02 22:55: 00 09-03 00:41 :54 No PRN, Starting on Thu09/02/23 at 1655, Until Thu09/02/23 at 1841, Intra-op [facility] bupivacaine (preserv free) 0.5% (SENSORCAIN E MPF) injection 09-02 22:55: 00 09-03 00:41 :54 No PRN, Starting on Thu09/02/23 at 1655, Until Thu09/02/23 at 1841, Routine, Intra-op [facility] phenazopyri dine (PYRIDIUM) tablet 200 mg 09-02 19:45: 00 09-02 19:58 :00 No 200mg 200 mg, Oral, ONCE, 1 dose, On Thu09/02/23 at 1345, Routine [facility] lactated ringers IV infusion 1,000 mL 09-02 19:45: 00 09-02 19:58 :00 No 1000mL at 42 mL/hr, 1,000 mL, IV Infusion, ONCE, 1 dose, On Thu09/02/23 at 1345, Routine, DSU Pre-op [facility] ibuprofen 600 mg tablet 09-02 00:00: 00 Yes [id number] 600mg Take 1 tablet by mouth every 6 (six) hours as needed for Pain (scale 1-3) or Pain (scale 4-6). [facility] simethicone 80 mg chewable tablet 09-02 00:00: 00 Yes [id number] 80mg Take 1 tablet by mouth after meals and at bedtime. [facility] metroNIDAZO LE (FLAGYL) 500 mg tablet 09-02 00:00: 00 Yes [id number] 500mg Take 1 tablet by mouth every 12 (twelve) hours. [facility] HYDROcodone -acetaminop hen 5-325 mg tablet 09-02 00:00: 00 09-05 05:59 :00 No [id number] 1{tbl} Take 1 tablet by mouth every 6 (six) hours as needed for Pain (scale 7-10) for up to 2 days. Indication s: acute pain [facility] glecaprevir -pibrentasv ir (MAVYRET) 100-40 mg 08-31 09:40: 53 Yes 3{tbl} Take 3 tablets by mouth in the morning. [facility] topiramate 50 mg tablet 08-19 00:00: 00 Yes [id number] 50mg Take 1 tablet by mouth in the morning and 1 tablet in the evening. [facility] DULoxetine 20 mg capsule 08-19 00:00: 00 Yes [id number] 20mg Take 1 capsule by mouth in the morning and 1 capsule in the evening. [facility] doxepin 100 mg capsule 08-19 00:00: 00 Yes [id number] 100mg Take 1 capsule by mouth at bedtime. [facility] buPROPion SR (WELLBUTRIN SR) 150 mg SR tablet 08-19 00:00: 00 Yes [id number] 150mg Take 1 tablet by mouth in the morning and 1 tablet in the evening. [facility] ARIPiprazol e (ABILIFY) 5 mg tablet 08-19 00:00: 00 Yes [id number] 5mg Take 1 tablet by mouth in the morning. [facility] glecaprevir -pibrentasv ir 100-40 mg 2022-08 00:00: 00 Yes [id number] 3{tbl} Take 3 tablets by mouth in the morning. [facility] miSOPROStoL 200 mcg tablet 2022-08 00:00: 00 07-30 00:00 :00 No [id number] 100 200ug Take 1 tablet by mouth SEE-INSTRU CTIONS. Take one tab the night before and one tab the morning of procedure [facility] sofosbuvir- velpatasvir 400-100 mg 2022-08 00:00: 00 07-24 00:00 :00 No [id number] 1{tbl} Take 1 tablet by mouth in the morning. [facility] amoxicillin 875 mg tablet 2022-08 00:00: 00 07-20 05:59 :00 No [id number] 05 875mg Take 1 tablet by mouth in the morning and 1 tablet in the evening. Do all this for 10 days. [facility] iopamidol (ISOVUE 370-500 mL) injection 100 mL 2022-08 08:30: 00 06-29 08:30 :00 No [id number] 100mL 100 mL, Intravenou s, ONCE, 1 dose, On 06/29/23 at 0230, Routine [facility] ondansetron (ZOFRAN (PF)) injection 4 mg 2022-08 05:45: 00 06-29 05:55 :00 No 4mg 4 mg, Slow IV Push, ONCE, 1 dose, On 06/28/23 at 2345, UZMA [facility] morpHINE (4 mg/mL) injection 4 mg 2022-08 05:45: 00 06-29 05:56 :00 No 4mg 4 mg, Slow IV Push, ONCE, 1 dose, On 06/28/23 at 2345, STAT [facility] lactulose 10 gram/15 mL oral solution 2022-08 00:00: 00 Yes [id number] 30mL Take 30 mL by mouth 3 (three) times daily as needed for Constipati on or For bowel movement. [facility] dicyclomine 20 mg tablet 2022-08 00:00: 00 08-19 00:00 :00 No [id number] 20mg Take 1 tablet by mouth every 6 (six) hours as needed for Abdominal pain. [facility] ondansetron (ZOFRAN) 4 mg tablet 2022-08 00:00: 00 08-19 00:00 :00 No [id number] 4mg Take 1 tablet by mouth every 8 (eight) hours as needed for Nausea and Vomiting (N/V). [facility] ipratropium 0.02 % nebulizer solution 2022-08 00:00: 00 Yes [id number] .5mg Inhale 2.5 mL every 8 (eight) hours as needed for Wheezing or Shortness of Breath. [facility] ARIPiprazol e (ABILIFY) 5 mg tablet 2022-08 00:00: 00 08-19 00:00 :00 No [id number] 5mg Take 1 tablet by mouth in the morning. [facility] doxepin 100 mg capsule 2022-08 00:00: 00 08-19 00:00 :00 No [id number] 100mg Take 1 capsule by mouth at bedtime. [facility] doxepin 100 mg capsule 2022-08 0 00:00: 00 05-15 00:00 :00 No [id number] 100mg Take 1 capsule by mouth at bedtime. [facility] ARIPiprazol e (ABILIFY) 5 mg tablet 2022-08 00:00: 00 05-15 00:00 :00 No [id number] 5mg Take 1 tablet by mouth in the morning. [facility] medroxyPROG ESTERone (DEPO-PROVE RA) syringe 150 mg 04-29 21:30: 00 04-29 20:38 :00 No [id number] 150mg [facility] tretinoin 0.075 % Crea 04-28 00:00: 00 Yes [id number] 1g Apply 1 g to area(s) at bedtime. [facility] valACYclovi r 1 gram tablet 04-28 00:00: 00 Yes [id number] 1g Take 1 tablet by mouth in the morning. [facility] sofosbuvir- velpatasvir (EPCLUSA) 400-100 mg 04-21 00:00: 00 07-10 00:00 :00 No [id number] 1{tbl} Take 1 tablet by mouth in the morning. [facility] albuterol 2.5 mg /3 mL (0.083 %) nebulizer solution 04-01 00:00: 00 Yes [id number] 2.5mg Inhale 3 mL every 4 (four) hours as needed for Wheezing or Shortness of Breath. [facility] albuterol 90 mcg/actuati on inhaler 04-01 00:00: 00 Yes [id number] 2{puff} Inhale 2 Puffs every 4 (four) hours as needed for Wheezing or Shortness of Breath. [facility] buPROPion SR (WELLBUTRIN SR) 150 mg SR tablet 04-01 00:00: 00 08-19 00:00 :00 No [id number] 150mg Take 1 tablet by mouth in the morning and 1 tablet in the evening. [facility] DULoxetine 20 mg capsule 04-01 00:00: 00 08-19 00:00 :00 No [id number] 20mg Take 1 capsule by mouth in the morning and 1 capsule in the evening. [facility] topiramate 50 mg tablet 04-01 00:00: 00 08-19 00:00 :00 No [id number] 50mg Take 1 tablet by mouth in the morning and 1 tablet in the evening. [facility] ipratropium 0.02 % nebulizer solution 04-01 00:00: 00 06-10 00:00 :00 No [id number] .5mg Inhale 2.5 mL every 8 (eight) hours as needed for Wheezing or Shortness of Breath. [facility] [facility] do[facility]epin [facility] mg capsule 04-01 00:00: 00 05-13 00:00 :00 No [id number] 50mg Take 1 capsule by mouth at bedtime. [facility] nirmatrelvi r-ritonavir (PAXLOVID, EUA,) 300 mg (150 mg x 2)-100 mg tablet 04-01 00:00: 00 05-13 00:00 :00 No [id number] 3{tbl} Take 3 tablets by mouth in the morning and 3 tablets in the evening. [facility] QUEtiapine (SEROQUEL) 100 mg tablet 04-01 00:00: 00 05-13 00:00 :00 No [id number] 100mg Take 1 tablet by mouth in the morning and 1 tablet in the evening. [facility] glecaprevir -pibrentasv ir (MAVYRET) 100-40 mg 04-01 00:00: 00 04-21 00:00 :00 No [id number] 3{tbl} Take 3 tablets by mouth in the morning. [facility] metroNIDAZO LE (FLAGYL) 500 mg tablet 04-01 00:00: 00 04-09 04:59 :00 No [id number] 500mg Take 1 tablet by mouth in the morning and 1 tablet in the evening. Do all this for 7 days. [facility] ibuprofen 600 mg tablet 03-30 00:00: 00 04-01 00:00 :00 No [id number] 600mg Take 1 tablet by mouth every 6 (six) hours as needed for Pain (scale 1-3) or Pain (scale 4-6). [facility] metroNIDAZO LE 500 mg tablet 02-05 00:00: 00 04-01 00:00 :00 No [id number] 500mg Take 1 tablet by mouth every 12 (twelve) hours. [facility] medroxyPROG ESTERone (DEPO-PROVE RA) syringe 150 mg 02-02 22:00: 00 02-02 20:59 :00 No [id number] 150mg [facility] valACYclovi r 1 gram tablet 02-02 00:00: 00 04-28 00:00 :00 No [id number] 1g Take 1 tablet by mouth in the morning. [facility] neomycin-po lymyxin-hyd rocortisone otic solution 03-24 00:00: 00 04-01 00:00 :00 No [id number] 4[drp] Place 4 Drops in right ear 4 (four) times daily. [facility] amoxicillin 875 mg tablet 03-24 00:00: 00 04-01 04:59 :00 No [id number] 875mg Take 1 tablet by mouth in the morning and 1 tablet in the evening. Do all this for 7 days. [facility] iopamidol (ISOVUE 370-500 mL) injection 55 mL 02-18 01:45: 00 02-18 01:45 :00 No [id number] 55mL 55 mL, Intravenou s, ONCE, 1 dose, On Thu02/17/22 at 2045, Routine [facility] ketorolac (TORADOL) injection 15 mg 02-18 01:45: 00 02-18 01:15 :00 No 15mg 15 mg, Slow IV Push, ONCE, 1 dose, On Thu02/17/22 at 2045, UZMA [facility] HYDROcodone -acetaminop hen (NORCO) 10-325 mg tablet 1 tablet 02-18 01:00: 00 02-18 00:20 :00 No 1{tbl} 1 tablet, Oral, ONCE NOW, 1 dose, On Thu02/17/22 at 2000, Routine [facility] ibuprofen 600 mg tablet 02-17 00:00: 00 03-30 00:00 :00 No [id number] 600mg Take 1 tablet by mouth every 6 (six) hours as needed for Pain (scale 4-6). [facility] ketorolac (TORADOL) injection 30 mg 11-24 09:45: 00 11-24 09:19 :00 No 30mg 30 mg, Slow IV Push, ONCE, 1 dose, On 11/24/21 at 0445, Routine
food court team member approving Restricted medication : ARIANNA WHITMORE [facility] morpHINE injection 4 mg 11-24 08:15: 00 11-24 08:03 :00 No 4mg 4 mg, Slow IV Push, ONCE, 1 dose, On Thu11/24/21 at 0315, STAT [facility] FENTanyl PF (SUBLIMAZE (PF)) injection 50 mcg 11-24 05:16: 00 11-24 05:20 :00 No 50ug 50 mcg, Slow IV Push, ONCE, 1 dose, On 11/24/21 at 0030, Routine [facility] ondansetron (ZOFRAN (PF)) injection 4 mg 11-24 04:30: 00 11-24 03:45 :00 No 4mg 4 mg, Slow IV Push, ONCE, 1 dose, On 11/23/21 at 2330, UZMA [facility] FENTanyl PF (SUBLIMAZE (PF)) injection 50 mcg 11-24 04:30: 00 11-24 03:45 :00 No 50ug 50 mcg, Slow IV Push, ONCE, 1 dose, On 11/23/21 at 2330, Routine [facility] iopamidol (ISOVUE 370-500 mL) injection 100 mL 11-24 04:19: 00 11-24 04:19 :00 No [id number] 100mL 100 mL, Intravenou s, ONCE, 1 dose, On 11/23/21 at 2330, Routine [facility] HYDROcodone -acetaminop hen (NORCO) 10-325 mg tablet 11-24 00:00: 00 04-01 00:00 :00 No [id number] 1{tbl} Take 1 tablet by mouth every 6 (six) hours as needed for Pain (scale 7-10). Indication s: acute pain [facility] ketorolac 10 mg tablet 11-24 00:00: 00 03-30 00:00 :00 No [id number] 10mg Take 1 tablet by mouth every 6 (six) hours as needed for Alternate with [place] for pain scale 4-6. [facility] ibuprofen 800 mg tablet 11-07 00:00: 00 04-01 00:00 :00 No [id number] 800mg Take 1 tablet by mouth every 8 (eight) hours. [facility] oxyCODONE-a cetaminophe n 5-325 mg per tablet 11-07 00:00: 00 04-01 00:00 :00 No [id number] 1{tbl} Take 1 tablet by mouth every 6 (six) hours as needed for Pain (scale 4-6). Indication s: acute pain [facility] chlorhexidi ne 0.12 % mouthwash 1-03 00:00: 00 04-01 00:00 :00 No [facility] DULOXETINE 20 mg capsule 01-29 00:00: 00 04-01 00:00 :00 No [id number] TAKE 1 CAPSULE BY MOUTH TWICE DAILY [facility] glecaprevir -pibrentasv ir (MAVYRET) 100-40 mg 10-28 00:00: 00 04-01 00:00 :00 No [id number] 3{tbl} Take 3 tablets by mouth in the morning. [facility] buPROPion SR (WELLBUTRIN SR) 150 mg SR tablet 10-28 00:00: 00 04-01 00:00 :00 No [id number] 150mg Take 1 tablet by mouth daily. [facility] benzoyl peroxide (ACNE FOAMING WASH) 10 % external wash 10-28 00:00: 00 04-01 00:00 :00 No [id number] Apply to area(s) 2 (two) times daily. [facility] albuterol 90 mcg/actuati on inhaler 10-28 00:00: 00 04-01 00:00 :00 No [id number] 2{puff} Inhale 2 Puffs every 4 (four) hours as needed for Wheezing or Shortness of Breath. [facility] albuterol 2.5 mg /3 mL (0.083 %) nebulizer solution 10-28 00:00: 00 04-01 00:00 :00 No [id number] 2.5mg Inhale 3 mL every 4 (four) hours as needed for Wheezing or Shortness of Breath. [facility] meclizine 25 mg tablet 10-28 00:00: 00 04-01 00:00 :00 No [id number] 25mg Take 1 tablet by mouth 3 (three) times daily as needed for Dizziness. [facility] valACYclovi r 1 gram tablet 10-28 00:00: 00 02-02 00:00 :00 No [id number] 1g Take 1 tablet by mouth daily. [facility] lidocaine 3 % Crea 10-28 00:00: 00 11-07 00:00 :00 No [id number] 2g Apply 2 g to area(s) 3 (three) times daily as needed for Pain (scale 4-6). [facility] bromphenira mine-pseudo ephedrine-D M (BROMFED DM) 2-30-10 mg/5 mL syrup 10-28 00:00: 00 11-07 00:00 :00 No [id number] 5mL Take 5 mL by mouth 4 (four) times daily as needed for Congestion /Allergies . [facility] dicyclomine 20 mg tablet 10-28 00:00: 00 11-07 00:00 :00 No [id number] 20mg Take 1 tablet by mouth every 6 (six) hours as needed for Abdominal pain. [facility] DULoxetine 20 mg capsule 10-28 00:00: 00 12-20 00:00 :00 No [id number] 20mg Take 1 capsule by mouth 2 (two) times daily. [facility] topiramate 50 mg tablet 10-25 00:00: 00 04-01 00:00 :00 No 50mg Take 1 tablet by mouth 2 (two) times daily. [facility] triamcinolo ne acetonide 0.1 % cream 08-17 00:00: 00 Yes [id number] Apply to area(s) 2 (two) times daily. [facility] tretinoin 0.075 % Crea 08-17 00:00: 00 04-28 00:00 :00 No [id number] 1g Apply 1 g to area(s) at bedtime. [facility] fluticasone propionate 110 mcg/actuati on inhaler 08-17 00:00: 00 04-01 00:00 :00 No [id number] 1{puff} Inhale 1 Puff every 12 (twelve) hours. [facility] carBAMazepi ne 400 mg 12 hr tablet 08-17 00:00: 00 04-01 00:00 :00 No [id number] 400mg Take 1 tablet by mouth 2 (two) times daily. [facility] doxepin 50 mg capsule 08-17 00:00: 04-01 00:00 :00 No [id number] 50mg Take 1 capsule by mouth at bedtime. [facility] ipratropium 0.02 % nebulizer solution 08-17 00:00: 00 04-01 00:00 :00 No [id number] .5mg Inhale 2.5 mL every 8 (eight) hours as needed for Wheezing or Shortness of Breath. [facility] M[employer]ellane[employer] Antib[employer] Medical Supply Kit 08-17 00:00: 00 11-07 00:00 :00 No [id number] J40: Claudia - Dispense # 1 Laura Respironic s (okay for alternativ e brand) for nebulizer treatment [facility] azelaic acid 20 % cream 08-17 00:00: 00 11-07 00:00 :00 No [id number] Apply to area(s) 2 (two) times daily. Apply 2g to affected areas BID [facility] ondansetron (ZOFRAN) 4 mg tablet 08-17 00:00: 00 11-07 00:00 :00 No [id number] 4mg Take 1 tablet by mouth every 8 (eight) hours as needed for Nausea and Vomiting (N/V). [facility] proMETHazin e (PHENERGAN) 25 mg suppository 08-17 00:00: 00 11-07 00:00 :00 No [id number] 25mg Insert 1 Suppositor y into rectum every 4 (four) hours as needed for Nausea and Vomiting (N/V). [facility] predniSONE 20 mg tablet 2019-08 00:00: 00 11-07 00:00 :00 No [id number] 60mg Take 3 tablets by mouth every morning. [facility] benzonatate 100 mg capsule 9-13 00:00: 00 11-07 00:00 :00 No 100mg Take 1 capsule by mouth 3 (three) times daily as needed for Cough. [facility] Immunizations Ordered Immunization Name Filled Immunization Name Date Status Comments Source SARS-COV-2 COVID-19 MODERNA 0.25ML BOOSTER VACCINE 2022-01-23 00:00:00 Completed [facility] SARS-COV-2 COVID-19 MODERNA 0.25ML BOOSTER VACCINE 2022-01-23 00:00:00 Completed [facility] SARS-COV-2 COVID-19 MODERNA 0.25ML BOOSTER VACCINE 2022-01-23 00:00:00 Completed [facility] SARS-COV-2 COVID-19 MODERNA 0.25ML BOOSTER VACCINE 2022-01-23 00:00:00 Completed [facility] SARS-COV-2 COVID-19 MODERNA 0.25ML BOOSTER VACCINE 2022-01-23 00:00:00 Completed [facility] SARS-COV-2 COVID-19 MODERNA 0.25ML BOOSTER VACCINE 2022-01-23 00:00:00 Completed [facility] SARS-COV-2 COVID-19 MODERNA 0.25ML BOOSTER VACCINE 2022-01-23 00:00:00 Completed [facility] SARS-COV-2 COVID-19 MODERNA 0.25ML BOOSTER VACCINE 2022-01-23 00:00:00 Completed [facility] SARS-COV-2 COVID-19 MODERNA 0.25ML BOOSTER VACCINE 2022-01-23 00:00:00 Completed [facility] SARS-COV-2 COVID-19 MODERNA 0.25ML BOOSTER VACCINE 2022-01-23 00:00:00 Completed [facility] SARS-COV-2 COVID-19 MODERNA 0.25ML BOOSTER VACCINE 2022-01-23 00:00:00 Completed [facility] SARS-COV-2 COVID-19 MODERNA 0.25ML BOOSTER VACCINE 2022-01-23 00:00:00 Completed [facility] SARS-COV-2 COVID-19 MODERNA 0.25ML BOOSTER VACCINE 2022-01-23 00:00:00 Completed [facility] SARS-COV-2 COVID-19 MODERNA 0.25ML BOOSTER VACCINE 2022-01-23 00:00:00 Completed [facility] SARS-COV-2 COVID-19 MODERNA 0.25ML BOOSTER VACCINE 2022-01-23 00:00:00 Completed [facility] SARS-COV-2 COVID-19 MODERNA 0.25ML BOOSTER VACCINE 2022-01-23 00:00:00 Completed [facility] SARS-COV-2 COVID-19 MODERNA 0.25ML BOOSTER VACCINE 2022-01-23 00:00:00 Completed [facility] SARS-COV-2 COVID-19 MODERNA 0.25ML BOOSTER VACCINE 2022-01-23 00:00:00 Completed [facility] SARS-COV-2 COVID-19 MODERNA 0.25ML BOOSTER VACCINE 2022-01-23 00:00:00 Completed [facility] SARS-COV-2 COVID-19 MODERNA 0.25ML BOOSTER VACCINE 2022-01-23 00:00:00 Completed [facility] SARS-COV-2 COVID-19 MODERNA 0.25ML BOOSTER VACCINE 2022-01-23 00:00:00 Completed [facility] SARS-COV-2 COVID-19 MODERNA 0.25ML BOOSTER VACCINE 2022-01-23 00:00:00 Completed [facility] SARS-COV-2 COVID-19 MODERNA 0.25ML BOOSTER VACCINE 2022-01-23 00:00:00 Completed [facility] SARS-COV-2 COVID-19 MODERNA 0.25ML BOOSTER VACCINE 2022-01-23 00:00:00 Completed [facility] SARS-COV-2 COVID-19 MODERNA 0.25ML BOOSTER VACCINE 2022-01-23 00:00:00 Completed [facility] SARS-COV-2 COVID-19 MODERNA 0.25ML BOOSTER VACCINE 2022-01-23 00:00:00 Completed [facility] SARS-COV-2 COVID-19 MODERNA 0.25ML BOOSTER VACCINE 2022-01-23 00:00:00 Completed [facility] SARS-COV-2 COVID-19 MODERNA 0.25ML BOOSTER VACCINE 2022-01-23 00:00:00 Completed [facility] SARS-COV-2 COVID-19 MODERNA 0.25ML BOOSTER VACCINE 2022-01-23 00:00:00 Completed [facility] SARS-COV-2 COVID-19 MODERNA 0.25ML BOOSTER VACCINE 2022-01-23 00:00:00 Completed [facility] SARS-COV-2 COVID-19 MODERNA 0.25ML BOOSTER VACCINE 2022-01-23 00:00:00 Completed [facility] SARS-COV-2 COVID-19 MODERNA 0.25ML BOOSTER VACCINE 2022-01-23 00:00:00 Completed [facility] SARS-COV-2 COVID-19 MODERNA 0.25ML BOOSTER VACCINE 2022-01-23 00:00:00 Completed [facility] SARS-COV-2 COVID-19 MODERNA 0.25ML BOOSTER VACCINE 2022-01-23 00:00:00 Completed [facility] SARS-COV-2 COVID-19 MODERNA 0.25ML BOOSTER VACCINE 2022-01-23 00:00:00 Completed [facility] SARS-COV-2 COVID-19 MODERNA 0.25ML BOOSTER VACCINE 2022-01-23 00:00:00 Completed [facility] SARS-COV-2 COVID-19 MODERNA 0.25ML BOOSTER VACCINE 2022-01-23 00:00:00 Completed [facility] SARS-COV-2 COVID-19 MODERNA 0.25ML BOOSTER VACCINE 2022-01-23 00:00:00 Completed [facility] SARS-COV-2 COVID-19 MODERNA 0.25ML BOOSTER VACCINE 2022-01-23 00:00:00 Completed [facility] SARS-COV-2 COVID-19 MODERNA 0.25ML BOOSTER VACCINE 2022-01-23 00:00:00 Completed [facility] SARS-COV-2 COVID-19 MODERNA 0.25ML BOOSTER VACCINE 2022-01-23 00:00:00 Completed [facility] SARS-COV-2 COVID-19 MODERNA 0.25ML BOOSTER VACCINE 2022-01-23 00:00:00 Completed [facility] SARS-COV-2 COVID-19 MODERNA 0.25ML BOOSTER VACCINE 2022-01-23 00:00:00 Completed [facility] SARS-COV-2 COVID-19 MODERNA 0.25ML BOOSTER VACCINE 2022-01-23 00:00:00 Completed [facility] SARS-COV-2 COVID-19 MODERNA 0.25ML BOOSTER VACCINE 2022-01-23 00:00:00 Completed [facility] SARS-COV-2 COVID-19 MODERNA VACCINE 2020-11-14 00:00:00 Completed [facility] SARS-COV-2 COVID-19 MODERNA VACCINE 2020-11-14 00:00:00 Completed [facility] SARS-COV-2 COVID-19 MODERNA VACCINE 2020-11-14 00:00:00 Completed [facility] SARS-COV-2 COVID-19 MODERNA VACCINE 2020-11-14 00:00:00 Completed [facility] SARS-COV-2 COVID-19 MODERNA VACCINE 2020-11-14 00:00:00 Completed [facility] SARS-COV-2 COVID-19 MODERNA VACCINE 2020-11-14 00:00:00 Completed [facility] SARS-COV-2 COVID-19 MODERNA VACCINE 2020-11-14 00:00:00 Completed [facility] SARS-COV-2 COVID-19 MODERNA VACCINE 2020-11-14 00:00:00 Completed [facility] SARS-COV-2 COVID-19 MODERNA VACCINE 2020-11-14 00:00:00 Completed [facility] SARS-COV-2 COVID-19 MODERNA VACCINE 2020-11-14 00:00:00 Completed [facility] SARS-COV-2 COVID-19 MODERNA VACCINE 2020-11-14 00:00:00 Completed [facility] SARS-COV-2 COVID-19 MODERNA VACCINE 2020-11-14 00:00:00 Completed [facility] SARS-COV-2 COVID-19 MODERNA 12+ YRS VACCINE 2020-11-14 00:00:00 Completed [facility] SARS-COV-2 COVID-19 MODERNA 12+ YRS VACCINE 2020-11-14 00:00:00 Completed [facility] SARS-COV-2 COVID-19 MODERNA 12+ YRS VACCINE 2020-11-14 00:00:00 Completed [facility] SARS-COV-2 COVID-19 MODERNA 12+ YRS VACCINE 2020-11-14 00:00:00 Completed [facility] SARS-COV-2 COVID-19 MODERNA 12+ YRS VACCINE 2020-11-14 00:00:00 Completed [facility] SARS-COV-2 COVID-19 MODERNA 12+ YRS VACCINE 2020-11-14 00:00:00 Completed [facility] SARS-COV-2 COVID-19 MODERNA 12+ YRS VACCINE 2020-11-14 00:00:00 Completed [facility] SARS-COV-2 COVID-19 MODERNA 12+ YRS VACCINE 2020-11-14 00:00:00 Completed [facility] SARS-COV-2 COVID-19 MODERNA 12+ YRS VACCINE 2020-11-14 00:00:00 Completed [facility] SARS-COV-2 COVID-19 MODERNA 12+ YRS VACCINE 2020-11-14 00:00:00 Completed [facility] SARS-COV-2 COVID-19 MODERNA 12+ YRS VACCINE 2020-11-14 00:00:00 Completed [facility] SARS-COV-2 COVID-19 MODERNA 12+ YRS VACCINE 2020-11-14 00:00:00 Completed [facility] SARS-COV-2 COVID-19 MODERNA 12+ YRS VACCINE 2020-11-14 00:00:00 Completed [facility] SARS-COV-2 COVID-19 MODERNA 12+ YRS VACCINE 2020-11-14 00:00:00 Completed [facility] SARS-COV-2 COVID-19 MODERNA 12+ YRS VACCINE 2020-11-14 00:00:00 Completed [facility] SARS-COV-2 COVID-19 MODERNA 12+ YRS VACCINE 2020-11-14 00:00:00 Completed [facility] SARS-COV-2 COVID-19 MODERNA 12+ YRS VACCINE 2020-11-14 00:00:00 Completed [facility] SARS-COV-2 COVID-19 MODERNA 12+ YRS VACCINE 2020-11-14 00:00:00 Completed [facility] SARS-COV-2 COVID-19 MODERNA 12+ YRS VACCINE 2020-11-14 00:00:00 Completed [facility] SARS-COV-2 COVID-19 MODERNA 12+ YRS VACCINE 2020-11-14 00:00:00 Completed [facility] SARS-COV-2 COVID-19 MODERNA 12+ YRS VACCINE 2020-11-14 00:00:00 Completed [facility] SARS-COV-2 COVID-19 MODERNA 12+ YRS VACCINE 2020-11-14 00:00:00 Completed [facility] SARS-COV-2 COVID-19 MODERNA 12+ YRS VACCINE 2020-11-14 00:00:00 Completed [facility] SARS-COV-2 COVID-19 MODERNA 12+ YRS VACCINE 2020-11-14 00:00:00 Completed [facility] SARS-COV-2 COVID-19 MODERNA 12+ YRS VACCINE 2020-11-14 00:00:00 Completed [facility] SARS-COV-2 COVID-19 MODERNA 12+ YRS VACCINE 2020-11-14 00:00:00 Completed [facility] SARS-COV-2 COVID-19 MODERNA 12+ YRS VACCINE 2020-11-14 00:00:00 Completed [facility] SARS-COV-2 COVID-19 MODERNA 12+ YRS VACCINE 2020-11-14 00:00:00 Completed [facility] SARS-COV-2 COVID-19 MODERNA 12+ YRS VACCINE 2020-11-14 00:00:00 Completed [facility] SARS-COV-2 COVID-19 MODERNA 12+ YRS VACCINE 2020-11-14 00:00:00 Completed [facility] SARS-COV-2 COVID-19 MODERNA 12+ YRS VACCINE 2020-11-14 00:00:00 Completed [facility] SARS-COV-2 COVID-19 MODERNA 12+ YRS VACCINE 2020-11-14 00:00:00 Completed [facility] SARS-COV-2 COVID-19 MODERNA 12+ YRS VACCINE 2020-11-14 00:00:00 Completed [facility] SARS-COV-2 COVID-19 MODERNA 12+ YRS VACCINE 2020-11-14 00:00:00 Completed [facility] SARS-COV-2 COVID-19 MODERNA 12+ YRS VACCINE 2020-11-14 00:00:00 Completed [facility] SARS-COV-2 COVID-19 MODERNA 12+ YRS VACCINE 2020-11-14 00:00:00 Completed [facility] SARS-COV-2 COVID-19 MODERNA 12+ YRS VACCINE 2020-11-14 00:00:00 Completed [facility] SARS-COV-2 COVID-19 MODERNA 12+ YRS VACCINE 2020-11-14 00:00:00 Completed [facility] SARS-COV-2 COVID-19 MODERNA VACCINE 2020-10-17 00:00:00 Completed [facility] SARS-COV-2 COVID-19 MODERNA VACCINE 2020-10-17 00:00:00 Completed [facility] SARS-COV-2 COVID-19 MODERNA VACCINE 2020-10-17 00:00:00 Completed [facility] SARS-COV-2 COVID-19 MODERNA VACCINE 2020-10-17 00:00:00 Completed [facility] SARS-COV-2 COVID-19 MODERNA VACCINE 2020-10-17 00:00:00 Completed [facility] SARS-COV-2 COVID-19 MODERNA VACCINE 2020-10-17 00:00:00 Completed [facility] SARS-COV-2 COVID-19 MODERNA VACCINE 2020-10-17 00:00:00 Completed [facility] SARS-COV-2 COVID-19 MODERNA VACCINE 2020-10-17 00:00:00 Completed [facility] SARS-COV-2 COVID-19 MODERNA VACCINE 2020-10-17 00:00:00 Completed [facility] SARS-COV-2 COVID-19 MODERNA VACCINE 2020-10-17 00:00:00 Completed [facility] SARS-COV-2 COVID-19 MODERNA VACCINE 2020-10-17 00:00:00 Completed [facility] SARS-COV-2 COVID-19 MODERNA VACCINE 2020-10-17 00:00:00 Completed [facility] SARS-COV-2 COVID-19 MODERNA 12+ YRS VACCINE 2020-10-17 00:00:00 Completed [facility] SARS-COV-2 COVID-19 MODERNA 12+ YRS VACCINE 2020-10-17 00:00:00 Completed [facility] SARS-COV-2 COVID-19 MODERNA 12+ YRS VACCINE 2020-10-17 00:00:00 Completed [facility] SARS-COV-2 COVID-19 MODERNA 12+ YRS VACCINE 2020-10-17 00:00:00 Completed [facility] SARS-COV-2 COVID-19 MODERNA 12+ YRS VACCINE 2020-10-17 00:00:00 Completed [facility] SARS-COV-2 COVID-19 MODERNA 12+ YRS VACCINE 2020-10-17 00:00:00 Completed [facility] SARS-COV-2 COVID-19 MODERNA 12+ YRS VACCINE 2020-10-17 00:00:00 Completed [facility] SARS-COV-2 COVID-19 MODERNA 12+ YRS VACCINE 2020-10-17 00:00:00 Completed [facility] SARS-COV-2 COVID-19 MODERNA 12+ YRS VACCINE 2020-10-17 00:00:00 Completed [facility] SARS-COV-2 COVID-19 MODERNA 12+ YRS VACCINE 2020-10-17 00:00:00 Completed [facility] SARS-COV-2 COVID-19 MODERNA 12+ YRS VACCINE 2020-10-17 00:00:00 Completed [facility] SARS-COV-2 COVID-19 MODERNA 12+ YRS VACCINE 2020-10-17 00:00:00 Completed [facility] SARS-COV-2 COVID-19 MODERNA 12+ YRS VACCINE 2020-10-17 00:00:00 Completed [facility] SARS-COV-2 COVID-19 MODERNA 12+ YRS VACCINE 2020-10-17 00:00:00 Completed [facility] SARS-COV-2 COVID-19 MODERNA 12+ YRS VACCINE 2020-10-17 00:00:00 Completed [facility] SARS-COV-2 COVID-19 MODERNA 12+ YRS VACCINE 2020-10-17 00:00:00 Completed [facility] SARS-COV-2 COVID-19 MODERNA 12+ YRS VACCINE 2020-10-17 00:00:00 Completed [facility] SARS-COV-2 COVID-19 MODERNA 12+ YRS VACCINE 2020-10-17 00:00:00 Completed [facility] SARS-COV-2 COVID-19 MODERNA 12+ YRS VACCINE 2020-10-17 00:00:00 Completed [facility] SARS-COV-2 COVID-19 MODERNA 12+ YRS VACCINE 2020-10-17 00:00:00 Completed [facility] SARS-COV-2 COVID-19 MODERNA 12+ YRS VACCINE 2020-10-17 00:00:00 Completed [facility] SARS-COV-2 COVID-19 MODERNA 12+ YRS VACCINE 2020-10-17 00:00:00 Completed [facility] SARS-COV-2 COVID-19 MODERNA 12+ YRS VACCINE 2020-10-17 00:00:00 Completed [facility] SARS-COV-2 COVID-19 MODERNA 12+ YRS VACCINE 2020-10-17 00:00:00 Completed [facility] SARS-COV-2 COVID-19 MODERNA 12+ YRS VACCINE 2020-10-17 00:00:00 Completed [facility] SARS-COV-2 COVID-19 MODERNA 12+ YRS VACCINE 2020-10-17 00:00:00 Completed [facility] SARS-COV-2 COVID-19 MODERNA 12+ YRS VACCINE 2020-10-17 00:00:00 Completed [facility] SARS-COV-2 COVID-19 MODERNA 12+ YRS VACCINE 2020-10-17 00:00:00 Completed [facility] SARS-COV-2 COVID-19 MODERNA 12+ YRS VACCINE 2020-10-17 00:00:00 Completed [facility] SARS-COV-2 COVID-19 MODERNA 12+ YRS VACCINE 2020-10-17 00:00:00 Completed [facility] SARS-COV-2 COVID-19 MODERNA 12+ YRS VACCINE 2020-10-17 00:00:00 Completed [facility] SARS-COV-2 COVID-19 MODERNA 12+ YRS VACCINE 2020-10-17 00:00:00 Completed [facility] SARS-COV-2 COVID-19 MODERNA 12+ YRS VACCINE 2020-10-17 00:00:00 Completed [facility] SARS-COV-2 COVID-19 MODERNA 12+ YRS VACCINE 2020-10-17 00:00:00 Completed [facility] SARS-COV-2 COVID-19 MODERNA 12+ YRS VACCINE 2020-10-17 00:00:00 Completed [facility] SARS-COV-2 COVID-19 MODERNA 12+ YRS VACCINE 2020-10-17 00:00:00 Completed [facility] SARS-COV-2 COVID-19 MODERNA 12+ YRS VACCINE 2020-10-17 00:00:00 Completed [facility] SARS-COV-2 COVID-19 MODERNA 12+ YRS VACCINE 2020-10-17 00:00:00 Completed [facility] SARS-COV-2 COVID-19 MODERNA 12+ YRS VACCINE Unknown Completed [facility] SARS-COV-2 COVID-19 MODERNA 12+ YRS VACCINE Unknown Completed [facility] SARS-COV-2 COVID-19 MODERNA 0.25ML BOOSTER VACCINE Unknown Completed [facility] SARS-COV-2 COVID-19 MODERNA 12+ YRS VACCINE Unknown Completed [facility] SARS-COV-2 COVID-19 MODERNA 12+ YRS VACCINE Unknown Completed [facility] SARS-COV-2 COVID-19 MODERNA 0.25ML BOOSTER VACCINE Unknown Completed [facility] SARS-COV-2 COVID-19 MODERNA 12+ YRS VACCINE Unknown Completed [facility] SARS-COV-2 COVID-19 MODERNA 12+ YRS VACCINE Unknown Completed [facility] SARS-COV-2 COVID-19 MODERNA 0.25ML BOOSTER VACCINE Unknown Completed [facility] SARS-COV-2 COVID-19 MODERNA 12+ YRS VACCINE Unknown Completed [facility] SARS-COV-2 COVID-19 MODERNA 12+ YRS VACCINE Unknown Completed [facility] SARS-COV-2 COVID-19 MODERNA 0.25ML BOOSTER VACCINE Unknown Completed [facility] SARS-COV-2 COVID-19 MODERNA 12+ YRS VACCINE Unknown Completed [facility] SARS-COV-2 COVID-19 MODERNA 12+ YRS VACCINE Unknown Completed [facility] SARS-COV-2 COVID-19 MODERNA 0.25ML BOOSTER VACCINE Unknown Completed [facility] SARS-COV-2 COVID-19 MODERNA 12+ YRS VACCINE Unknown Completed [facility] SARS-COV-2 COVID-19 MODERNA 12+ YRS VACCINE Unknown Completed [facility] SARS-COV-2 COVID-19 MODERNA 0.25ML BOOSTER VACCINE Unknown Completed [facility] SARS-COV-2 COVID-19 MODERNA 12+ YRS VACCINE Unknown Completed [facility] SARS-COV-2 COVID-19 MODERNA 12+ YRS VACCINE Unknown Completed [facility] SARS-COV-2 COVID-19 MODERNA 0.25ML BOOSTER VACCINE Unknown Completed [facility] SARS-COV-2 COVID-19 MODERNA 12+ YRS [facility] [facility] SARS-[facility]OV[facility]2 COVID-19 MODERNA 12+ YRS VACCINE Unknown Completed [facility] SARS-COV-2 COVID-19 MODERNA 0.25ML BOOSTER VACCINE Unknown Completed [facility] SARS-COV-2 COVID-19 MODERNA 12+ YRS VACCINE Unknown Completed [facility] SARS-COV-2 COVID-19 MODERNA 12+ YRS VACCINE Unknown Completed [facility] SARS-COV-2 COVID-19 MODERNA 0.25ML BOOSTER VACCINE Unknown Completed [facility] SARS-COV-2 COVID-19 MODERNA 12+ YRS VACCINE Unknown Completed [facility] SARS-COV-2 COVID-19 MODERNA 12+ YRS VACCINE Unknown Completed [facility] SARS-COV-2 COVID-19 MODERNA 12+ YRS VACCINE Unknown Completed [facility] SARS-COV-2 COVID-19 MODERNA 12+ YRS VACCINE Unknown Completed [facility] SARS-COV-2 COVID-19 MODERNA 12+ YRS VACCINE Unknown Completed [facility] SARS-COV-2 COVID-19 MODERNA 0.25ML BOOSTER VACCINE Unknown Completed [facility] SARS-COV-2 COVID-19 MODERNA 12+ YRS VACCINE Unknown Completed [facility] SARS-COV-2 COVID-19 MODERNA 12+ YRS VACCINE Unknown Completed [facility] SARS-COV-2 COVID-19 MODERNA 0.25ML BOOSTER VACCINE Unknown Completed [facility] SARS-COV-2 COVID-19 MODERNA 12+ YRS VACCINE Unknown Completed [facility] SARS-COV-2 COVID-19 MODERNA 12+ YRS VACCINE Unknown Completed [facility] SARS-COV-2 COVID-19 MODERNA 0.25ML BOOSTER VACCINE Unknown Completed [facility] SARS-COV-2 COVID-19 MODERNA 12+ YRS VACCINE Unknown Completed [facility] SARS-COV-2 COVID-19 MODERNA 12+ YRS VACCINE Unknown Completed [facility] SARS-COV-2 COVID-19 MODERNA 0.25ML BOOSTER VACCINE Unknown Completed [facility] SARS-COV-2 COVID-19 MODERNA 12+ YRS VACCINE Unknown Completed [facility] SARS-COV-2 COVID-19 MODERNA 12+ YRS VACCINE Unknown Completed [facility] SARS-COV-2 COVID-19 MODERNA 0.25ML BOOSTER VACCINE Unknown Completed [facility] SARS-COV-2 COVID-19 MODERNA 12+ YRS VACCINE Unknown Completed [facility] SARS-COV-2 COVID-19 MODERNA 12+ YRS VACCINE Unknown Completed [facility] SARS-COV-2 COVID-19 MODERNA 0.25ML BOOSTER VACCINE Unknown Completed [facility] SARS-COV-2 COVID-19 MODERNA 12+ YRS VACCINE Unknown Completed [facility] SARS-COV-2 COVID-19 MODERNA 12+ YRS VACCINE Unknown Completed [facility] SARS-COV-2 COVID-19 MODERNA 0.25ML BOOSTER VACCINE Unknown Completed [facility] SARS-COV-2 COVID-19 MODERNA 12+ YRS VACCINE Unknown Completed [facility] SARS-COV-2 COVID-19 MODERNA 12+ YRS VACCINE Unknown Completed [facility] SARS-COV-2 COVID-19 MODERNA 0.25ML BOOSTER VACCINE Unknown Completed [facility] SARS-COV-2 COVID-19 MODERNA 12+ YRS VACCINE Unknown Completed [facility] SARS-COV-2 COVID-19 MODERNA 12+ YRS VACCINE Unknown Completed [facility] SARS-COV-2 COVID-19 MODERNA 0.25ML BOOSTER VACCINE Unknown Completed [facility] SARS-COV-2 COVID-19 MODERNA 12+ YRS VACCINE Unknown Completed [facility] SARS-COV-2 COVID-19 MODERNA 12+ YRS VACCINE Unknown Completed [facility] SARS-COV-2 COVID-19 MODERNA 0.25ML BOOSTER VACCINE Unknown Completed [facility] SARS-COV-2 COVID-19 MODERNA 12+ YRS VACCINE Unknown Completed [facility] SARS-COV-2 COVID-19 MODERNA 12+ YRS VACCINE Unknown Completed [facility] SARS-COV-2 COVID-19 MODERNA 0.25ML BOOSTER VACCINE Unknown Completed [facility] SARS-COV-2 COVID-19 MODERNA 12+ YRS VACCINE Unknown Completed [facility] SARS-COV-2 COVID-19 MODERNA 12+ YRS VACCINE Unknown Completed [facility] SARS-COV-2 COVID-19 MODERNA 0.25ML BOOSTER VACCINE Unknown Completed [facility] SARS-COV-2 COVID-19 MODERNA 12+ YRS VACCINE Unknown Completed [facility] SARS-COV-2 COVID-19 MODERNA 12+ YRS VACCINE Unknown Completed [facility] SARS-COV-2 COVID-19 MODERNA 0.25ML BOOSTER VACCINE Unknown Completed [facility] SARS-COV-2 COVID-19 MODERNA 12+ YRS VACCINE Unknown Completed [facility] SARS-COV-2 COVID-19 MODERNA 12+ YRS VACCINE Unknown Completed [facility] SARS-COV-2 COVID-19 MODERNA 0.25ML BOOSTER VACCINE Unknown Completed [facility] SARS-COV-2 COVID-19 MODERNA 12+ YRS VACCINE Unknown Completed [facility] SARS-COV-2 COVID-19 MODERNA 12+ YRS VACCINE Unknown Completed [facility] SARS-COV-2 COVID-19 MODERNA 0.25ML BOOSTER VACCINE Unknown Completed [facility] SARS-COV-2 COVID-19 MODERNA 12+ YRS VACCINE Unknown Completed [facility] SARS-COV-2 COVID-19 MODERNA 12+ YRS VACCINE Unknown Completed [facility] SARS-COV-2 COVID-19 MODERNA 0.25ML BOOSTER VACCINE Unknown Completed [facility] SARS-COV-2 COVID-19 MODERNA 12+ YRS VACCINE Unknown Completed [facility] SARS-COV-2 COVID-19 MODERNA 12+ YRS VACCINE Unknown Completed [facility] SARS-COV-2 COVID-19 MODERNA 0.25ML BOOSTER VACCINE Unknown Completed [facility] SARS-COV-2 COVID-19 MODERNA 12+ YRS VACCINE Unknown Completed [facility] SARS-COV-2 COVID-19 MODERNA 12+ YRS VACCINE Unknown Completed [facility] SARS-COV-2 COVID-19 MODERNA 0.25ML BOOSTER VACCINE Unknown Completed [facility] SARS-COV-2 COVID-19 MODERNA 12+ YRS VACCINE Unknown Completed [facility] SARS-COV-2 COVID-19 MODERNA 12+ YRS VACCINE Unknown Completed [facility] SARS-COV-2 COVID-19 MODERNA 0.25ML BOOSTER VACCINE Unknown Completed [facility] SARS-COV-2 COVID-19 MODERNA 12+ YRS VACCINE Unknown Completed [facility] SARS-COV-2 COVID-19 MODERNA 12+ YRS VACCINE Unknown Completed [facility] SARS-COV-2 COVID-19 MODERNA 0.25ML BOOSTER VACCINE Unknown Completed [facility] SARS-COV-2 COVID-19 MODERNA 12+ YRS VACCINE Unknown Completed [facility] SARS-COV-2 COVID-19 MODERNA 12+ YRS VACCINE Unknown Completed [facility] SARS-COV-2 COVID-19 MODERNA 0.25ML BOOSTER VACCINE Unknown Completed [facility] SARS-COV-2 COVID-19 MODERNA 12+ YRS VACCINE Unknown Completed [facility] SARS-COV-2 COVID-19 MODERNA 12+ YRS VACCINE Unknown Completed [facility] SARS-COV-2 COVID-19 MODERNA 0.25ML BOOSTER VACCINE Unknown Completed [facility] SARS-COV-2 COVID-19 MODERNA 12+ YRS VACCINE Unknown Completed [facility] SARS-COV-2 COVID-19 MODERNA 12+ YRS VACCINE Unknown Completed [facility] SARS-COV-2 COVID-19 MODERNA 0.25ML BOOSTER VACCINE Unknown Completed [facility] SARS-COV-2 COVID-19 MODERNA 12+ YRS VACCINE Unknown Completed [facility] SARS-COV-2 COVID-19 MODERNA 12+ YRS VACCINE Unknown Completed [facility] SARS-COV-2 COVID-19 MODERNA 0.25ML BOOSTER VACCINE Unknown Completed [facility] SARS-COV-2 COVID-19 MODERNA 12+ YRS VACCINE Unknown Completed [facility] SARS-COV-2 COVID-19 MODERNA 12+ YRS VACCINE Unknown Completed [facility] SARS-COV-2 COVID-19 MODERNA 0.25ML BOOSTER VACCINE Unknown Completed [facility] SARS-COV-2 COVID-19 MODERNA 12+ YRS VACCINE Unknown Completed [facility] SARS-COV-2 COVID-19 MODERNA 12+ YRS VACCINE Unknown Completed [facility] SARS-COV-2 COVID-19 MODERNA 0.25ML BOOSTER VACCINE Unknown Completed [facility] SARS-COV-2 COVID-19 MODERNA 12+ YRS VACCINE Unknown Completed [facility] SARS-COV-2 COVID-19 MODERNA 12+ YRS VACCINE Unknown Completed [facility] SARS-COV-2 COVID-19 MODERNA 0.25ML BOOSTER VACCINE Unknown Completed [facility] SARS-COV-2 COVID-19 MODERNA 12+ YRS VACCINE Unknown Completed [facility] SARS-COV-2 COVID-19 MODERNA 12+ YRS VACCINE Unknown Completed [facility] SARS-COV-2 COVID-19 MODERNA 0.25ML BOOSTER VACCINE Unknown Completed [facility] SARS-COV-2 COVID-19 MODERNA 12+ YRS VACCINE Unknown Completed [facility] SARS-COV-2 COVID-19 MODERNA 12+ YRS VACCINE Unknown Completed [facility] SARS-COV-2 COVID-19 MODERNA 0.25ML BOOSTER VACCINE Unknown Completed [facility] SARS-COV-2 COVID-19 MODERNA 12+ YRS VACCINE Unknown Completed [facility] SARS-COV-2 COVID-19 MODERNA 12+ YRS VACCINE Unknown Completed [facility] SARS-COV-2 COVID-19 MODERNA 0.25ML BOOSTER VACCINE Unknown Completed [facility] SARS-COV-2 COVID-19 MODERNA 12+ YRS VACCINE Unknown Completed [facility] SARS-COV-2 COVID-19 MODERNA 12+ YRS VACCINE Unknown Completed [facility] SARS-COV-2 COVID-19 MODERNA 0.25ML BOOSTER VACCINE Unknown Completed [facility] SARS-COV-2 COVID-19 MODERNA 12+ YRS VACCINE Unknown Completed [facility] SARS-COV-2 COVID-19 MODERNA 12+ YRS VACCINE Unknown Completed [facility] SARS-COV-2 COVID-19 MODERNA 0.25ML BOOSTER VACCINE Unknown Completed [facility] SARS-COV-2 COVID-19 MODERNA 12+ YRS VACCINE Unknown Completed [facility] SARS-COV-2 COVID-19 MODERNA 12+ YRS VACCINE Unknown Completed [facility] SARS-COV-2 COVID-19 MODERNA 0.25ML BOOSTER VACCINE Unknown Completed [facility] SARS-COV-2 COVID-19 MODERNA 12+ YRS VACCINE Unknown Completed [facility] SARS-COV-2 COVID-19 MODERNA 12+ YRS VACCINE Unknown Completed [facility] SARS-COV-2 COVID-19 MODERNA 0.25ML BOOSTER VACCINE Unknown Completed [facility] SARS-COV-2 COVID-19 MODERNA 12+ YRS VACCINE Unknown Completed [facility] SARS-COV-2 COVID-19 MODERNA 12+ YRS VACCINE Unknown Completed [facility] SARS-COV-2 COVID-19 MODERNA 0.25ML BOOSTER VACCINE Unknown Completed [facility] SARS-COV-2 COVID-19 MODERNA 12+ YRS VACCINE Unknown Completed [facility] SARS-COV-2 COVID-19 MODERNA 12+ YRS VACCINE Unknown Completed [facility] SARS-COV-2 COVID-19 MODERNA 0.25ML BOOSTER VACCINE Unknown Completed [facility] SARS-COV-2 COVID-19 MODERNA 12+ YRS VACCINE Unknown Completed [facility] SARS-COV-2 COVID-19 MODERNA 12+ YRS VACCINE Unknown Completed [facility] SARS-COV-2 COVID-19 MODERNA 0.25ML BOOSTER VACCINE Unknown Completed [facility] SARS-COV-2 COVID-19 MODERNA 12+ YRS VACCINE Unknown Completed [facility] SARS-COV-2 COVID-19 MODERNA 12+ YRS VACCINE Unknown Completed [facility] SARS-COV-2 COVID-19 MODERNA 0.25ML BOOSTER VACCINE Unknown Completed [facility] SARS-COV-2 COVID-19 MODERNA 12+ YRS VACCINE Unknown Completed [facility] SARS-COV-2 COVID-19 MODERNA 12+ YRS VACCINE Unknown Completed [facility] SARS-COV-2 COVID-19 MODERNA 0.25ML BOOSTER VACCINE Unknown Completed [facility] SARS-COV-2 COVID-19 MODERNA 12+ YRS VACCINE Unknown Completed [facility] SARS-COV-2 COVID-19 MODERNA 12+ YRS VACCINE Unknown Completed [facility] SARS-COV-2 COVID-19 MODERNA 0.25ML BOOSTER VACCINE Unknown Completed [facility] SARS-COV-2 COVID-19 MODERNA 12+ YRS VACCINE Unknown Completed [facility] SARS-COV-2 COVID-19 MODERNA 12+ YRS VACCINE Unknown Completed [facility] SARS-COV-2 COVID-19 MODERNA 0.25ML BOOSTER VACCINE Unknown Completed [facility] SARS-COV-2 COVID-19 MODERNA 12+ YRS VACCINE Unknown Completed [facility] SARS-COV-2 COVID-19 MODERNA 12+ YRS VACCINE Unknown Completed [facility] SARS-COV-2 COVID-19 MODERNA 0.25ML BOOSTER VACCINE Unknown Completed [facility] SARS-COV-2 COVID-19 MODERNA 12+ YRS VACCINE Unknown Completed [facility] SARS-COV-2 COVID-19 MODERNA 12+ YRS VACCINE Unknown Completed [facility] SARS-COV-2 COVID-19 MODERNA 0.25ML BOOSTER VACCINE Unknown Completed [facility] SARS-COV-2 COVID-19 MODERNA 12+ YRS VACCINE Unknown Completed [facility] SARS-COV-2 COVID-19 MODERNA 12+ YRS VACCINE Unknown Completed [facility] SARS-COV-2 COVID-19 MODERNA 0.25ML BOOSTER VACCINE Unknown Completed [facility] SARS-COV-2 COVID-19 MODERNA 12+ YRS VACCINE Unknown Completed [facility] SARS-COV-2 COVID-19 MODERNA 12+ YRS VACCINE Unknown Completed [facility] SARS-COV-2 COVID-19 MODERNA 0.25ML BOOSTER VACCINE Unknown Completed [facility] SARS-COV-2 COVID-19 MODERNA 12+ YRS VACCINE Unknown Completed [facility] SARS-COV-2 COVID-19 MODERNA 12+ YRS VACCINE Unknown Completed [facility] SARS-COV-2 COVID-19 MODERNA 0.25ML BOOSTER VACCINE Unknown Completed [facility] SARS-COV-2 COVID-19 MODERNA 12+ YRS VACCINE Unknown Completed [facility] SARS-COV-2 COVID-19 MODERNA 12+ YRS VACCINE Unknown Completed [facility] SARS-COV-2 COVID-19 MODERNA 0.25ML BOOSTER VACCINE Unknown Completed [facility] SARS-COV-2 COVID-19 MODERNA 12+ YRS VACCINE Unknown Completed [facility] SARS-COV-2 COVID-19 MODERNA 12+ YRS VACCINE Unknown Completed [facility] SARS-COV-2 COVID-19 MODERNA 0.25ML BOOSTER VACCINE Unknown Completed [facility] SARS-COV-2 COVID-19 MODERNA 12+ YRS VACCINE Unknown Completed [facility] SARS-COV-2 COVID-19 MODERNA 12+ YRS VACCINE Unknown Completed [facility] SARS-COV-2 COVID-19 MODERNA 0.25ML BOOSTER VACCINE Unknown Completed [facility] SARS-COV-2 COVID-19 MODERNA 12+ YRS VACCINE Unknown Completed [facility] SARS-COV-2 COVID-19 MODERNA 12+ YRS VACCINE Unknown Completed [facility] SARS-COV-2 COVID-19 MODERNA 0.25ML BOOSTER VACCINE Unknown Completed [facility] SARS-COV-2 COVID-19 MODERNA 12+ YRS VACCINE Unknown Completed [facility] SARS-COV-2 COVID-19 MODERNA 12+ YRS VACCINE Unknown Completed [facility] SARS-COV-2 COVID-19 MODERNA 0.25ML BOOSTER VACCINE Unknown Completed [facility] SARS-COV-2 COVID-19 MODERNA 12+ YRS VACCINE Unknown Completed [facility] SARS-COV-2 COVID-19 MODERNA 12+ YRS VACCINE Unknown Completed [facility] SARS-COV-2 COVID-19 MODERNA 0.25ML BOOSTER VACCINE Unknown Completed [facility] SARS-COV-2 COVID-19 MODERNA 12+ YRS VACCINE Unknown Completed [facility] SARS-COV-2 COVID-19 MODERNA 12+ YRS VACCINE Unknown Completed [facility] SARS-COV-2 COVID-19 MODERNA 0.25ML BOOSTER VACCINE Unknown Completed [facility] SARS-COV-2 COVID-19 MODERNA 12+ YRS VACCINE Unknown Completed [facility] SARS-COV-2 COVID-19 MODERNA 12+ YRS VACCINE Unknown Completed [facility] SARS-COV-2 COVID-19 MODERNA 0.25ML BOOSTER VACCINE Unknown Completed [facility] SARS-COV-2 COVID-19 MODERNA 12+ YRS VACCINE Unknown Completed [facility] SARS-COV-2 COVID-19 MODERNA 12+ YRS VACCINE Unknown Completed [facility] SARS-COV-2 COVID-19 MODERNA 0.25ML BOOSTER VACCINE Unknown Completed [facility] SARS-COV-2 COVID-19 MODERNA 12+ YRS VACCINE Unknown Completed [facility] SARS-COV-2 COVID-19 MODERNA 12+ YRS VACCINE Unknown Completed [facility] SARS-COV-2 COVID-19 MODERNA 0.25ML BOOSTER VACCINE Unknown Completed [facility] SARS-COV-2 COVID-19 MODERNA 12+ YRS VACCINE Unknown Completed [facility] SARS-COV-2 COVID-19 MODERNA 12+ YRS VACCINE Unknown Completed [facility] SARS-COV-2 COVID-19 MODERNA 0.25ML BOOSTER VACCINE Unknown Completed [facility] SARS-COV-2 COVID-19 MODERNA 12+ YRS VACCINE Unknown Completed [facility] SARS-COV-2 COVID-19 MODERNA 12+ YRS VACCINE Unknown Completed [facility] SARS-COV-2 COVID-19 MODERNA 0.25ML BOOSTER VACCINE Unknown Completed [facility] SARS-COV-2 COVID-19 MODERNA 12+ YRS VACCINE Unknown Completed [facility] SARS-COV-2 COVID-19 MODERNA 12+ YRS VACCINE Unknown Completed [facility] SARS-COV-2 COVID-19 MODERNA 0.25ML BOOSTER VACCINE Unknown Completed [facility] SARS-COV-2 COVID-19 MODERNA 12+ YRS VACCINE Unknown Completed [facility] SARS-COV-2 COVID-19 MODERNA 12+ YRS VACCINE Unknown Completed [facility] SARS-COV-2 COVID-19 MODERNA 0.25ML BOOSTER VACCINE Unknown Completed [facility] SARS-COV-2 COVID-19 MODERNA 12+ YRS VACCINE Unknown Completed [facility] SARS-COV-2 COVID-19 MODERNA 12+ YRS VACCINE Unknown Completed [facility] SARS-COV-2 COVID-19 MODERNA 0.25ML BOOSTER VACCINE Unknown Completed [facility] SARS-COV-2 COVID-19 MODERNA 12+ YRS VACCINE Unknown Completed [facility] SARS-COV-2 COVID-19 MODERNA 12+ YRS VACCINE Unknown Completed [facility] SARS-COV-2 COVID-19 MODERNA 0.25ML BOOSTER VACCINE Unknown Completed [facility] SARS-COV-2 COVID-19 MODERNA 12+ YRS VACCINE Unknown Completed [facility] SARS-COV-2 COVID-19 MODERNA 12+ YRS VACCINE Unknown Completed [facility] SARS-COV-2 COVID-19 MODERNA 0.25ML BOOSTER VACCINE Unknown Completed [facility] SARS-COV-2 COVID 19 ALLY SUCROSE VACCINE , , 0.3 ML (30 MCG), IM PFIZER (TRAN TOP) Unknown Completed [facility] SARS-COV-2 COVID-19 MODERNA 12+ YRS VACCINE Unknown Completed [facility] SARS-COV-2 COVID-19 MODERNA 12+ YRS VACCINE Unknown Completed [facility] SARS-COV-2 COVID-19 MODERNA 0.25ML BOOSTER VACCINE Unknown Completed [facility] SARS-COV-2 COVID 19 ALLY SUCROSE VACCINE , , 0.3 ML (30 MCG), IM PFIZER (TRAN TOP) Unknown Completed [facility] SARS-COV-2 COVID-19 MODERNA 12+ YRS VACCINE Unknown Completed [facility] SARS-COV-2 COVID-19 MODERNA 12+ YRS VACCINE Unknown Completed [facility] SARS-COV-2 COVID-19 MODERNA 0.25ML BOOSTER VACCINE Unknown Completed [facility] SARS-COV-2 COVID 19 ALLY SUCROSE VACCINE 12, , 0.3 ML (30 MCG), IM PFIZER (TRAN TOP) Unknown Completed [facility] SARS-COV-2 COVID-19 MODERNA 12+ YRS VACCINE Unknown Completed [facility] SARS-COV-2 COVID-19 MODERNA 12+ YRS VACCINE Unknown Completed [facility] SARS-COV-2 COVID-19 MODERNA 0.25ML BOOSTER VACCINE Unknown Completed [facility] SARS-COV-2 COVID 19 ALLY SUCROSE VACCINE 12+, , 0.3 ML (30 MCG), IM PFIZER (TRAN TOP) Unknown Completed [facility] SARS-COV-2 COVID-19 MODERNA 12+ YRS VACCINE Unknown Completed [facility] SARS-COV-2 COVID-19 MODERNA 12+ YRS VACCINE Unknown Completed [facility] SARS-COV-2 COVID-19 MODERNA 0.25ML BOOSTER VACCINE Unknown Completed [facility] SARS-COV-2 COVID 19 ALLY SUCROSE VACCINE 12+, , 0.3 ML (30 MCG), IM PFIZER (TRAN TOP) Unknown Completed [facility] SARS-COV-2 COVID-19 MODERNA 12+ YRS VACCINE Unknown Completed [facility] SARS-COV-2 COVID-19 MODERNA 12+ YRS VACCINE Unknown Completed [facility] SARS-COV-2 COVID-19 MODERNA 0.25ML BOOSTER VACCINE Unknown Completed [facility] SARS-COV-2 COVID 19 ALLY SUCROSE VACCINE , , 0.3 ML (30 MCG), IM PFIZER (TRAN TOP) Unknown Completed [facility] SARS-COV-2 COVID-19 MODERNA 12+ YRS VACCINE Unknown Completed [facility] SARS-COV-2 COVID-19 MODERNA 12+ YRS VACCINE Unknown Completed [facility] SARS-COV-2 COVID-19 MODERNA 0.25ML BOOSTER VACCINE Unknown Completed [facility] SARS-COV-2 COVID 19 ALLY SUCROSE VACCINE 12, , 0.3 ML (30 MCG), IM PFIZER (TRAN TOP) Unknown Completed [facility] SARS-COV-2 COVID-19 MODERNA 12+ YRS VACCINE Unknown Completed [facility] SARS-COV-2 COVID-19 MODERNA 12+ YRS VACCINE Unknown Completed [facility] SARS-COV-2 COVID-19 MODERNA 0.25ML BOOSTER VACCINE Unknown Completed [facility] SARS-COV-2 COVID 19 ALLY SUCROSE VACCINE 12, , 0.3 ML (30 MCG), IM PFIZER (TRAN TOP) Unknown Completed [facility] SARS-COV-2 COVID-19 MODERNA 12+ YRS VACCINE Unknown Completed [facility] SARS-COV-2 COVID-19 MODERNA 12+ YRS VACCINE Unknown Completed [facility] SARS-COV-2 COVID-19 MODERNA 0.25ML BOOSTER VACCINE Unknown Completed [facility] SARS-COV-2 COVID 19 ALLY SUCROSE VACCINE 12+, , 0.3 ML (30 MCG), IM PFIZER (TRAN TOP) Unknown Completed [facility] SARS-COV-2 COVID-19 MODERNA 12+ YRS VACCINE Unknown Completed [facility] SARS-COV-2 COVID-19 MODERNA 12+ YRS VACCINE Unknown Completed [facility] SARS-COV-2 COVID-19 MODERNA 0.25ML BOOSTER VACCINE Unknown Completed [facility] SARS-COV-2 COVID 19 ALLY SUCROSE VACCINE 12+, , 0.3 ML (30 MCG), IM PFIZER (TRAN TOP) Unknown Completed [facility] SARS-COV-2 COVID-19 MODERNA 12+ YRS VACCINE Unknown Completed [facility] SARS-COV-2 COVID-19 MODERNA 12+ YRS VACCINE Unknown Completed [facility] SARS-COV-2 COVID-19 MODERNA 0.25ML BOOSTER VACCINE Unknown Completed [facility] SARS-COV-2 COVID 19 ALLY SUCROSE VACCINE 12, , 0.3 ML (30 MCG), IM PFIZER (TRAN TOP) Unknown Completed [facility] SARS-COV-2 COVID-19 MODERNA 12+ YRS VACCINE Unknown Completed [facility] SARS-COV-2 COVID-19 MODERNA 12+ YRS VACCINE Unknown Completed [facility] SARS-COV-2 COVID-19 MODERNA 0.25ML BOOSTER VACCINE Unknown Completed [facility] SARS-COV-2 COVID 19 ALLY SUCROSE VACCINE 12+, , 0.3 ML (30 MCG), IM PFIZER (TRAN TOP) Unknown Completed [facility] SARS-COV-2 COVID-19 MODERNA 12+ YRS VACCINE Unknown Completed [facility] SARS-COV-2 COVID-19 MODERNA 12+ YRS VACCINE Unknown Completed [facility] SARS-COV-2 COVID-19 MODERNA 0.25ML BOOSTER VACCINE Unknown Completed [facility] SARS-COV-2 COVID 19 ALLY SUCROSE VACCINE 12+, , 0.3 ML (30 MCG), IM PFIZER (TRAN TOP) Unknown Completed [facility] SARS-COV-2 COVID-19 MODERNA 12+ YRS VACCINE Unknown Completed [facility] SARS-COV-2 COVID-19 MODERNA 12+ YRS VACCINE Unknown Completed [facility] SARS-COV-2 COVID-19 MODERNA 0.25ML BOOSTER VACCINE Unknown Completed [facility] SARS-COV-2 COVID 19 ALLY SUCROSE VACCINE 12, , 0.3 ML (30 MCG), IM PFIZER (TRAN TOP) Unknown Completed [facility] SARS-COV-2 COVID-19 MODERNA 12+ YRS VACCINE Unknown Completed [facility] SARS-COV-2 COVID-19 MODERNA 12+ YRS VACCINE Unknown Completed [facility] SARS-COV-2 COVID-19 MODERNA 0.25ML BOOSTER VACCINE Unknown Completed [facility] SARS-COV-2 COVID 19 ALLY SUCROSE VACCINE , , 0.3 ML (30 MCG), IM PFIZER (TRAN TOP) Unknown Completed [facility] SARS-COV-2 COVID-19 MODERNA 12+ YRS VACCINE Unknown Completed [facility] SARS-COV-2 COVID-19 MODERNA 12+ YRS VACCINE Unknown Completed [facility] SARS-COV-2 COVID-19 MODERNA 0.25ML BOOSTER VACCINE Unknown Completed [facility] SARS-COV-2 COVID 19 ALLY SUCROSE VACCINE 12, , 0.3 ML (30 MCG), IM PFIZER (TRAN TOP) Unknown Completed [facility] SARS-COV-2 COVID-19 MODERNA 12+ YRS VACCINE Unknown Completed [facility] SARS-COV-2 COVID-19 MODERNA 12+ YRS VACCINE Unknown Completed [facility] SARS-COV-2 COVID-19 MODERNA 0.25ML BOOSTER VACCINE Unknown Completed [facility] SARS-COV-2 COVID 19 ALLY SUCROSE VACCINE 12+, , 0.3 ML (30 MCG), IM PFIZER (TRAN TOP) Unknown Completed [facility] SARS-COV-2 COVID-19 MODERNA 12+ YRS VACCINE Unknown Completed [facility] SARS-COV-2 COVID-19 MODERNA 12+ YRS VACCINE Unknown Completed [facility] SARS-COV-2 COVID-19 MODERNA 0.25ML BOOSTER VACCINE Unknown Completed [facility] SARS-COV-2 COVID 19 ALLY SUCROSE VACCINE 12+, , 0.3 ML (30 MCG), IM PFIZER (TRAN TOP) Unknown Completed [facility] SARS-COV-2 COVID-19 MODERNA 12+ YRS VACCINE Unknown Completed [facility] SARS-COV-2 COVID-19 MODERNA 12+ YRS VACCINE Unknown Completed [facility] SARS-COV-2 COVID-19 MODERNA 0.25ML BOOSTER VACCINE Unknown Completed [facility] SARS-COV-2 COVID 19 ALLY SUCROSE VACCINE 12+, , 0.3 ML (30 MCG), IM PFIZER (TRAN TOP) Unknown Completed [facility] SARS-COV-2 COVID-19 MODERNA 12+ YRS VACCINE Unknown Completed [facility] SARS-COV-2 COVID-19 MODERNA 12+ YRS VACCINE Unknown Completed [facility] SARS-COV-2 COVID-19 MODERNA 0.25ML BOOSTER VACCINE Unknown Completed [facility] SARS-COV-2 COVID 19 ALLY SUCROSE VACCINE 12, , 0.3 ML (30 MCG), IM PFIZER (TRAN TOP) Unknown Completed [facility] SARS-COV-2 COVID-19 MODERNA 12+ YRS VACCINE Unknown Completed [facility] SARS-COV-2 COVID-19 MODERNA 12+ YRS VACCINE Unknown Completed [facility] SARS-COV-2 COVID-19 MODERNA 0.25ML BOOSTER VACCINE Unknown Completed [facility] SARS-COV-2 COVID 19 ALLY SUCROSE VACCINE 12+, , 0.3 ML (30 MCG), IM PFIZER (TRAN TOP) Unknown Completed [facility] SARS-COV-2 COVID-19 MODERNA 12+ YRS VACCINE Unknown Completed [facility] SARS-COV-2 COVID-19 MODERNA 12+ YRS VACCINE Unknown Completed [facility] SARS-COV-2 COVID-19 MODERNA 0.25ML BOOSTER VACCINE Unknown Completed [facility] SARS-COV-2 COVID 19 ALLY SUCROSE VACCINE 12+, , 0.3 ML (30 MCG), IM PFIZER (TRAN TOP) Unknown Completed [facility] SARS-COV-2 COVID-19 MODERNA 12+ YRS VACCINE Unknown Completed [facility] SARS-COV-2 COVID-19 MODERNA 12+ YRS VACCINE Unknown Completed [facility] SARS-COV-2 COVID-19 MODERNA 0.25ML BOOSTER VACCINE Unknown Completed [facility] SARS-COV-2 COVID 19 ALLY SUCROSE VACCINE 12, , 0.3 ML (30 MCG), IM PFIZER (TRAN TOP) Unknown Completed [facility] SARS-COV-2 COVID-19 MODERNA 12+ YRS VACCINE Unknown Completed [facility] SARS-COV-2 COVID-19 MODERNA 12+ YRS VACCINE Unknown Completed [facility] SARS-COV-2 COVID-19 MODERNA 0.25ML BOOSTER VACCINE Unknown Completed [facility] SARS-COV-2 COVID 19 ALLY SUCROSE VACCINE , , 0.3 ML (30 MCG), IM PFIZER (TRAN TOP) Unknown Completed [facility] SARS-COV-2 COVID-19 MODERNA 12+ YRS VACCINE Unknown Completed [facility] SARS-COV-2 COVID-19 MODERNA 12+ YRS VACCINE Unknown Completed [facility] SARS-COV-2 COVID-19 MODERNA 0.25ML BOOSTER VACCINE Unknown Completed [facility] SARS-COV-2 COVID 19 ALLY SUCROSE VACCINE 12, , 0.3 ML (30 MCG), IM PFIZER (TRAN TOP) Unknown Completed [facility] SARS-COV-2 COVID-19 MODERNA 12+ YRS VACCINE Unknown Completed [facility] SARS-COV-2 COVID-19 MODERNA 12+ YRS VACCINE Unknown Completed [facility] SARS-COV-2 COVID-19 MODERNA 0.25ML BOOSTER VACCINE Unknown Completed [facility] SARS-COV-2 COVID 19 ALLY SUCROSE VACCINE 12+, [id number], 0.3 ML (30 MCG), IM PFIZER (TRAN TOP) Unknown Completed [facility] SARS-COV-2 COVID-19 MODERNA 12+ YRS VACCINE Unknown Completed [facility] SARS-COV-2 COVID-19 MODERNA 12+ YRS VACCINE Unknown Completed [facility] SARS-COV-2 COVID-19 MODERNA 0.25ML BOOSTER VACCINE Unknown Completed [facility] SARS-COV-2 COVID 19 ALLY SUCROSE VACCINE 12+, , 0.3 ML (30 MCG), IM PFIZER (TRAN TOP) Unknown Completed [facility] SARS-COV-2 COVID-19 MODERNA 12+ YRS VACCINE Unknown Completed [facility] SARS-COV-2 COVID-19 MODERNA 12+ YRS VACCINE Unknown Completed [facility] SARS-COV-2 COVID-19 MODERNA 0.25ML BOOSTER VACCINE Unknown Completed [facility] SARS-COV-2 COVID 19 ALLY SUCROSE VACCINE 12, , 0.3 ML (30 MCG), IM PFIZER (TRAN TOP) Unknown Completed [facility] SARS-COV-2 COVID-19 MODERNA 12+ YRS VACCINE Unknown Completed [facility] SARS-COV-2 COVID-19 MODERNA 12+ YRS VACCINE Unknown Completed [facility] SARS-COV-2 COVID-19 MODERNA 0.25ML BOOSTER VACCINE Unknown Completed [facility] SARS-COV-2 COVID 19 ALLY SUCROSE VACCINE 12, , 0.3 ML (30 MCG), IM PFIZER (TRAN TOP) Unknown Completed [facility] SARS-COV-2 COVID-19 MODERNA 12+ YRS VACCINE Unknown Completed [facility] SARS-COV-2 COVID-19 MODERNA 12+ YRS VACCINE Unknown Completed [facility] SARS-COV-2 COVID-19 MODERNA 0.25ML BOOSTER VACCINE Unknown Completed [facility] SARS-COV-2 COVID 19 ALLY SUCROSE VACCINE 12+, , 0.3 ML (30 MCG), IM PFIZER (TRAN TOP) Unknown Completed [facility] SARS-COV-2 COVID-19 MODERNA 12+ YRS VACCINE Unknown Completed [facility] SARS-COV-2 COVID-19 MODERNA 12+ YRS VACCINE Unknown Completed [facility] SARS-COV-2 COVID-19 MODERNA 0.25ML BOOSTER VACCINE Unknown Completed [facility] SARS-COV-2 COVID 19 ALLY SUCROSE VACCINE 12+, [id number], 0.3 ML (30 MCG), IM PFIZER (TRAN TOP) Unknown Completed [facility] SARS-COV-2 COVID-19 MODERNA 12+ YRS VACCINE Unknown Completed [facility] SARS-COV-2 COVID-19 MODERNA 12+ YRS VACCINE Unknown Completed [facility] SARS-COV-2 COVID-19 MODERNA 0.25ML BOOSTER VACCINE Unknown Completed [facility] SARS-COV-2 COVID 19 ALLY SUCROSE VACCINE 12+, , 0.3 ML (30 MCG), IM PFIZER (TRAN TOP) Unknown Completed [facility] SARS-COV-2 COVID-19 MODERNA 12+ YRS VACCINE Unknown Completed [facility] SARS-COV-2 COVID-19 MODERNA 12+ YRS VACCINE Unknown Completed [facility] SARS-COV-2 COVID-19 MODERNA 0.25ML BOOSTER VACCINE Unknown Completed [facility] SARS-COV-2 COVID 19 ALLY SUCROSE VACCINE , , 0.3 ML (30 MCG), IM PFIZER (TRAN TOP) Unknown Completed [facility] SARS-COV-2 COVID-19 MODERNA 12+ YRS VACCINE Unknown Completed [facility] SARS-COV-2 COVID-19 MODERNA 12+ YRS VACCINE Unknown Completed [facility] SARS-COV-2 COVID-19 MODERNA 0.25ML BOOSTER VACCINE Unknown Completed [facility] SARS-COV-2 COVID 19 ALLY SUCROSE VACCINE 12, , 0.3 ML (30 MCG), IM PFIZER (TRAN TOP) Unknown Completed [facility] SARS-COV-2 COVID-19 MODERNA 12+ YRS VACCINE Unknown Completed [facility] SARS-COV-2 COVID-19 MODERNA 12+ YRS VACCINE Unknown Completed [facility] SARS-COV-2 COVID-19 MODERNA 0.25ML BOOSTER VACCINE Unknown Completed [facility] SARS-COV-2 COVID 19 ALLY SUCROSE VACCINE 12+, , 0.3 ML (30 MCG), IM PFIZER (TRAN TOP) Unknown Completed [facility] SARS-COV-2 COVID-19 MODERNA 12+ YRS VACCINE Unknown Completed [facility] SARS-COV-2 COVID-19 MODERNA 12+ YRS VACCINE Unknown Completed [facility] SARS-COV-2 COVID-19 MODERNA 0.25ML BOOSTER VACCINE Unknown Completed [facility] SARS-COV-2 COVID 19 ALLY SUCROSE VACCINE 12+, , 0.3 ML (30 MCG), IM PFIZER (TRAN TOP) Unknown Completed [facility] SARS-COV-2 COVID-19 MODERNA 12+ YRS VACCINE Unknown Completed [facility] SARS-COV-2 COVID-19 MODERNA 12+ YRS VACCINE Unknown Completed [facility] SARS-COV-2 COVID-19 MODERNA 0.25ML BOOSTER VACCINE Unknown Completed [facility] SARS-COV-2 COVID 19 ALLY SUCROSE VACCINE 12, , 0.3 ML (30 MCG), IM PFIZER (TRAN TOP) Unknown Completed [facility] SARS-COV-2 COVID-19 MODERNA 12+ YRS VACCINE Unknown Completed [facility] SARS-COV-2 COVID-19 MODERNA 12+ YRS VACCINE Unknown Completed [facility] SARS-COV-2 COVID-19 MODERNA 0.25ML BOOSTER VACCINE Unknown Completed [facility] SARS-COV-2 COVID 19 ALLY SUCROSE VACCINE 12, , 0.3 ML (30 MCG), IM PFIZER (TRAN TOP) Unknown Completed [facility] SARS-COV-2 COVID-19 MODERNA 12+ YRS VACCINE Unknown Completed [facility] SARS-COV-2 COVID-19 MODERNA 12+ YRS VACCINE Unknown Completed [facility] SARS-COV-2 COVID-19 MODERNA 0.25ML BOOSTER VACCINE Unknown Completed [facility] SARS-COV-2 COVID 19 ALLY SUCROSE VACCINE 12+, , 0.3 ML (30 MCG), IM PFIZER (TRAN TOP) Unknown Completed [facility] SARS-COV-2 COVID-19 MODERNA 12+ YRS VACCINE Unknown Completed [facility] SARS-COV-2 COVID-19 MODERNA 12+ YRS VACCINE Unknown Completed [facility] SARS-COV-2 COVID-19 MODERNA 0.25ML BOOSTER VACCINE Unknown Completed [facility] SARS-COV-2 COVID 19 ALLY SUCROSE VACCINE 12+, [id number], 0.3 ML (30 MCG), IM PFIZER (TRAN TOP) Unknown Completed [facility] SARS-COV-2 COVID-19 MODERNA 12+ YRS VACCINE Unknown Completed [facility] SARS-COV-2 COVID-19 MODERNA 12+ YRS VACCINE Unknown Completed [facility] SARS-COV-2 COVID-19 MODERNA 0.25ML BOOSTER VACCINE Unknown Completed [facility] SARS-COV-2 COVID 19 ALLY SUCROSE VACCINE 12+, [id number], 0.3 ML (30 MCG), IM PFIZER (TRAN TOP) Unknown Completed [facility] SARS-COV-2 COVID-19 MODERNA 12+ YRS VACCINE Unknown Completed [facility] SARS-COV-2 COVID-19 MODERNA 12+ YRS VACCINE Unknown Completed [facility] SARS-COV-2 COVID-19 MODERNA 0.25ML BOOSTER VACCINE Unknown Completed [facility] SARS-COV-2 COVID 19 ALLY SUCROSE VACCINE , , 0.3 ML (30 MCG), IM PFIZER (TRAN TOP) Unknown Completed [facility] SARS-COV-2 COVID-19 MODERNA 12+ YRS VACCINE Unknown Completed [facility] SARS-COV-2 COVID-19 MODERNA 12+ YRS VACCINE Unknown Completed [facility] SARS-COV-2 COVID-19 MODERNA 0.25ML BOOSTER VACCINE Unknown Completed [facility] SARS-COV-2 COVID 19 ALLY SUCROSE VACCINE 12+, , 0.3 ML (30 MCG), IM PFIZER (TRAN TOP) Unknown Completed [facility] SARS-COV-2 COVID-19 MODERNA 12+ YRS VACCINE Unknown Completed [facility] SARS-COV-2 COVID-19 MODERNA 12+ YRS VACCINE Unknown Completed [facility] SARS-COV-2 COVID-19 MODERNA 0.25ML BOOSTER VACCINE Unknown Completed [facility] SARS-COV-2 COVID 19 ALLY SUCROSE VACCINE 12+, [id number], 0.3 ML (30 MCG), IM PFIZER (TRAN TOP) Unknown Completed [facility] SARS-COV-2 COVID-19 MODERNA 12+ YRS VACCINE Unknown Completed [facility] SARS-COV-2 COVID-19 MODERNA 12+ YRS VACCINE Unknown Completed [facility] SARS-COV-2 COVID-19 MODERNA 0.25ML BOOSTER VACCINE Unknown Completed [facility] SARS-COV-2 COVID 19 ALLY SUCROSE VACCINE 12+, , 0.3 ML (30 MCG), IM PFIZER (TRAN TOP) Unknown Completed [facility] SARS-COV-2 COVID-19 MODERNA 12+ YRS VACCINE Unknown Completed [facility] SARS-COV-2 COVID-19 MODERNA 12+ YRS VACCINE Unknown Completed [facility] SARS-COV-2 COVID-19 MODERNA 0.25ML BOOSTER VACCINE Unknown Completed [facility] SARS-COV-2 COVID 19 ALLY SUCROSE VACCINE , , 0.3 ML (30 MCG), IM PFIZER (TRAN TOP) Unknown Completed [facility] SARS-COV-2 COVID-19 MODERNA 12+ YRS VACCINE Unknown Completed [facility] SARS-COV-2 COVID-19 MODERNA 12+ YRS VACCINE Unknown Completed [facility] SARS-COV-2 COVID-19 MODERNA 0.25ML BOOSTER VACCINE Unknown Completed [facility] SARS-COV-2 COVID 19 ALLY SUCROSE VACCINE 12, , 0.3 ML (30 MCG), IM PFIZER (TRAN TOP) Unknown Completed [facility] SARS-COV-2 COVID-19 MODERNA 12+ YRS VACCINE Unknown Completed [facility] SARS-COV-2 COVID-19 MODERNA 12+ YRS VACCINE Unknown Completed [facility] SARS-COV-2 COVID-19 MODERNA 0.25ML BOOSTER VACCINE Unknown Completed [facility] SARS-COV-2 COVID 19 ALLY SUCROSE VACCINE 12+, , 0.3 ML (30 MCG), IM PFIZER (TRAN TOP) Unknown Completed [facility] SARS-COV-2 COVID-19 MODERNA 12+ YRS VACCINE Unknown Completed [facility] SARS-COV-2 COVID-19 MODERNA 12+ YRS VACCINE Unknown Completed [facility] SARS-COV-2 COVID-19 MODERNA 0.25ML BOOSTER VACCINE Unknown Completed [facility] SARS-COV-2 COVID 19 ALLY SUCROSE VACCINE 12+, [id number], 0.3 ML (30 MCG), IM PFIZER (TRAN TOP) Unknown Completed [facility] SARS-COV-2 COVID-19 MODERNA 12+ YRS VACCINE Unknown Completed [facility] SARS-COV-2 COVID-19 MODERNA 12+ YRS VACCINE Unknown Completed [facility] SARS-COV-2 COVID-19 MODERNA 0.25ML BOOSTER VACCINE Unknown Completed [facility] SARS-COV-2 COVID 19 ALLY SUCROSE VACCINE +, [id number], 0.3 ML (30 MCG), IM PFIZER (TRAN TOP) Unknown Completed [facility] Vital Signs Vital Name Observation Time Observation Value Comments S ource Systolic blood pressure 2023-12-04 17:29:00 129 mm[Hg] [facility] Diastolic blood pressure 2023-12-04 17:29:00 93 mm[Hg] [facility] Heart rate 2023-12-04 17:29:00 95 /min [facility] Body temperature 2023-12-04 17:29:00 37.06 Jodi [facility] Respiratory rate 2023-12-04 17:29:00 17 /min [facility] Body weight 2023-12-04 17:29:00 120.067 kg [facility] BMI 2023-12-04 17:29:00 42.72 kg/m2 [facility] Oxygen saturation in Arterial blood by Pulse oximetry 2023-12-04 17:29:00 100 /min [facility] Systolic blood pressure 2023-09-15 18:17:00 123 mm[Hg] [facility] Diastolic blood pressure 2023-09-15 18:17:00 84 mm[Hg] [facility] Heart rate 2023-09-15 18:17:00 84 /min [facility] Body temperature 2023-09-15 18:17:00 37.28 Jodi [facility] Respiratory rate 2023-09-15 18:17:00 18 /min [facility] Body height 2023-09-15 18:17:00 167.6 cm [facility] Body weight 2023-09-15 18:17:00 108.863 kg [facility] BMI 2023-09-15 18:17:00 38.74 kg/m2 [facility] Oxygen saturation in Arterial blood by Pulse oximetry 2023-09-15 18:17:00 100 /min [facility] Systolic blood pressure 2023-09-03 13:15:00 117 mm[Hg] [facility] Diastolic blood pressure 2023-09-03 13:15:00 51 mm[Hg] [facility] Heart rate 2023-09-03 13:15:00 72 /min [facility] Body temperature 2023-09-03 13:15:00 36.89 Jodi [facility] Respiratory rate 2023-09-03 13:15:00 17 /min [facility] Oxygen saturation in Arterial blood by Pulse oximetry 2023-09-03 13:15:00 98 /min [facility] Systolic blood pressure 2023-09-02 19:33:00 122 mm[Hg] [facility] Diastolic blood pressure 2023-09-02 19:33:00 92 mm[Hg] [facility] Heart rate 2023-09-02 19:33:00 81 /min [facility] Body temperature 2023-09-02 19:33:00 36.72 Jodi [facility] Respiratory rate 2023-09-02 19:33:00 21 /min [facility] Oxygen saturation in Arterial blood by Pulse oximetry 2023-09-02 19:33:00 100 /min [facility] Systolic blood pressure 2023-09-01 15:11:00 126 mm[Hg] [facility] Diastolic blood pressure 2023-09-01 15:11:00 89 mm[Hg] [facility] Heart rate 2023-09-01 15:11:00 98 /min [facility] Body temperature 2023-09-01 15:11:00 36.39 Jodi [facility] Body height 2023-09-01 15:11:00 152.4 cm [facility] Body weight 2023-09-01 15:11:00 119.75 kg [facility] BMI 2023-09-01 15:11:00 51.56 kg/m2 [facility] Oxygen saturation in Arterial blood by Pulse oximetry 2023-09-01 15:11:00 98 /min [facility] Systolic blood pressure 2023-08-26 19:07:00 140 mm[Hg] [facility] Diastolic blood pressure 2023-08-26 19:07:00 88 mm[Hg] [facility] Heart rate 2023-08-26 19:07:00 86 /min [facility] Body height 2023-08-26 19:07:00 165.1 cm [facility] Body weight 2023-08-26 19:07:00 120.385 kg [facility] BMI 2023-08-26 19:07:00 44.16 kg/m2 [facility] Oxygen saturation in Arterial blood by Pulse oximetry 2023-08-26 19:07:00 99 /min [facility] Systolic blood pressure 2023-08-19 21:01:00 132 mm[Hg] [facility] Diastolic blood pressure 2023-08-19 21:01:00 85 mm[Hg] [facility] Heart rate 2023-08-19 21:01:00 90 /min [facility] Respiratory rate 2023-08-19 21:01:00 18 /min [facility] Body height 2023-08-19 21:01:00 166.4 cm [facility] Body weight 2023-08-19 21:01:00 120.657 kg [facility] BMI 2023-08-19 21:01:00 43.59 kg/m2 [facility] Oxygen saturation in Arterial blood by Pulse oximetry 2023-08-19 21:01:00 97 /min [facility] Systolic blood pressure 2023-08-13 20:58:00 131 mm[Hg] [facility] Diastolic blood pressure 2023-08-13 20:58:00 75 mm[Hg] [facility] Heart rate 2023-08-13 20:58:00 81 /min [facility] Body temperature 2023-08-13 20:58:00 36.94 Jodi [facility] Respiratory rate 2023-08-13 20:58:00 18 /min [facility] Body height 2023-08-13 20:58:00 165.1 cm [facility] Body weight 2023-08-13 20:58:00 122.018 kg [facility] BMI 2023-08-13 20:58:00 44.76 kg/m2 [facility] Systolic blood pressure 2023-07-30 21:35:00 110 mm[Hg] [facility] Diastolic blood pressure 2023-07-30 21:35:00 78 mm[Hg] [facility] Heart rate 2023-07-30 21:35:00 91 /min [facility] Body temperature 2023-07-30 21:35:00 37 Jodi [facility] Body height 2023-07-30 21:35:00 165.1 cm [facility] Body weight 2023-07-30 21:35:00 119.75 kg [facility] BMI 2023-07-30 21:35:00 43.93 kg/m2 [facility] Systolic blood pressure 2023-07-23 14:15:00 135 mm[Hg] [facility] Diastolic blood pressure 2023-07-23 14:15:00 86 mm[Hg] [facility] Heart rate 2023-07-23 14:15:00 112 /min [facility] Body temperature 2023-07-23 14:15:00 36.22 Jodi [facility] Body height 2023-07-23 14:15:00 165.1 cm [facility] Body weight 2023-07-23 14:15:00 120.112 kg [facility] BMI 2023-07-23 14:15:00 44.07 kg/m2 [facility] Systolic blood pressure 2023-07-09 21:45:00 114 mm[Hg] [facility] Diastolic blood pressure 2023-07-09 21:45:00 79 mm[Hg] [facility] Heart rate 2023-07-09 21:45:00 113 /min [facility] Body temperature 2023-07-09 21:45:00 37.11 Jodi [facility] Respiratory rate 2023-07-09 21:45:00 18 /min [facility] Body height 2023-07-09 21:45:00 165.1 cm [facility] Body weight 2023-07-09 21:45:00 119.886 kg [facility] BMI 2023-07-09 21:45:00 43.98 kg/m2 [facility] Oxygen saturation in Arterial blood by Pulse oximetry 2023-07-09 21:45:00 99 /min [facility] Systolic blood pressure 2023-07-01 18:16:00 129 mm[Hg] [facility] Diastolic blood pressure 2023-07-01 18:16:00 83 mm[Hg] [facility] Heart rate 2023-07-01 18:16:00 86 /min [facility] Body temperature 2023-07-01 18:16:00 36.11 Jodi [facility] Body height 2023-07-01 18:16:00 167.6 cm [facility] Body weight 2023-07-01 18:16:00 117.935 kg [facility] BMI 2023-07-01 18:16:00 41.97 kg/m2 [facility] Oxygen saturation in Arterial blood by Pulse oximetry 2023-07-01 18:16:00 98 /min [facility] Systolic blood pressure 2023-06-29 08:50:00 120 mm[Hg] [facility] Diastolic blood pressure 2023-06-29 08:50:00 83 mm[Hg] [facility] Heart rate 2023-06-29 08:50:00 79 /min [facility] Body temperature 2023-06-29 08:50:00 36.56 Jodi [facility] Respiratory rate 2023-06-29 08:50:00 16 /min [facility] Oxygen saturation in Arterial blood by Pulse oximetry 2023-06-29 08:50:00 100 /min [facility] Body height 2023-06-29 04:06:00 167.6 cm [facility] Body weight 2023-06-29 04:06:00 99.791 kg [facility] BMI 2023-06-29 04:06:00 35.51 kg/m2 [facility] Systolic blood pressure 2023-06-11 19:00:00 112 mm[Hg] manual [facility] Diastolic blood pressure 2023-06-11 19:00:00 40 mm[Hg] manual [facility] Heart rate 2023-06-11 19:00:00 95 /min [facility] Respiratory rate 2023-06-11 19:00:00 20 /min [facility] Body weight 2023-06-11 19:00:00 117.391 kg [facility] BMI 2023-06-11 19:00:00 41.77 kg/m2 [facility] Oxygen saturation in Arterial blood by Pulse oximetry 2023-06-11 19:00:00 100 /min arrived on RA; 6MW on RA [facility] Systolic blood pressure 2023-05-22 20:55:00 145 mm[Hg] [facility] Diastolic blood pressure 2023-05-22 20:55:00 84 mm[Hg] [facility] Heart rate 2023-05-22 20:54:00 100 /min [facility] Body temperature 2023-05-22 20:54:00 36.78 Jodi [facility] Respiratory rate 2023-05-22 20:54:00 17 /min [facility] Body height 2023-05-22 20:54:00 167.6 cm [facility] Body weight 2023-05-22 20:54:00 118.343 kg [facility] BMI 2023-05-22 20:54:00 42.11 kg/m2 [facility] Oxygen saturation in Arterial blood by Pulse oximetry 2023-05-22 20:54:00 98 /min [facility] Systolic blood pressure 2023-05-13 16:03:00 123 mm[Hg] [facility] Diastolic blood pressure 2023-05-13 16:03:00 85 mm[Hg] [facility] Heart rate 2023-05-13 16:03:00 84 /min [facility] Respiratory rate 2023-05-13 16:03:00 19 /min [facility] Body height 2023-05-13 16:03:00 167.6 cm [facility] Body weight 2023-05-13 16:03:00 115.758 kg [facility] BMI 2023-05-13 16:03:00 41.19 kg/m2 [facility] Oxygen saturation in Arterial blood by Pulse oximetry 2023-05-13 16:03:00 98 /min [facility] Systolic blood pressure 2023-05-13 14:12:00 130 mm[Hg] [facility] Diastolic blood pressure 2023-05-13 14:12:00 85 mm[Hg] [facility] Heart rate 2023-05-13 14:12:00 118 /min [facility] Body temperature 2023-05-13 14:10:00 37 Jodi [facility] Respiratory rate 2023-05-13 14:10:00 22 /min [facility] Body height 2023-05-13 14:10:00 167.6 cm [facility] Body weight 2023-05-13 14:10:00 115.803 kg [facility] BMI 2023-05-13 14:10:00 41.21 kg/m2 [facility] Oxygen saturation in Arterial blood by Pulse oximetry 2023-05-13 14:10:00 96 /min [facility] Systolic blood pressure 2023-04-29 20:37:00 121 mm[Hg] [facility] Diastolic blood pressure 2023-04-29 20:37:00 87 mm[Hg] [facility] Heart rate 2023-04-29 20:37:00 108 /min [facility] Respiratory rate 2023-04-29 20:37:00 18 /min [facility] Body height 2023-04-29 20:37:00 167.6 cm [facility] Body weight 2023-04-29 20:37:00 114.306 kg [facility] BMI 2023-04-29 20:37:00 40.67 kg/m2 [facility] Systolic blood pressure 2023-04-03 20:45:00 124 mm[Hg] [facility] Diastolic blood pressure 2023-04-03 20:45:00 88 mm[Hg] [facility] Heart rate 2023-04-03 20:45:00 99 /min [facility] Body temperature 2023-04-03 20:45:00 37.28 Jodi [facility] Respiratory rate 2023-04-03 20:45:00 15 /min [facility] Body height 2023-04-03 20:45:00 167.6 cm [facility] Body weight 2023-04-03 20:45:00 109.09 kg [facility] BMI 2023-04-03 20:45:00 38.82 kg/m2 [facility] Oxygen saturation in Arterial blood by Pulse oximetry 2023-04-03 20:45:00 98 /min [facility] Systolic blood pressure 2023-04-01 18:33:00 130 mm[Hg] [facility] Diastolic blood pressure 2023-04-01 18:33:00 80 mm[Hg] [facility] Heart rate 2023-04-01 18:33:00 87 /min [facility] Body temperature 2023-04-01 18:33:00 36.67 Jodi [facility] Respiratory rate 2023-04-01 18:33:00 20 /min [facility] Body height 2023-04-01 18:33:00 167.6 cm [facility] Body weight 2023-04-01 18:33:00 108.455 kg [facility] BMI 2023-04-01 18:33:00 38.59 kg/m2 [facility] Oxygen saturation in Arterial blood by Pulse oximetry 2023-04-01 18:33:00 99 /min [facility] Systolic blood pressure 2023-04-01 18:33:00 130 mm[Hg] [facility] Diastolic blood pressure 2023-04-01 18:33:00 80 mm[Hg] [facility] Heart rate 2023-04-01 18:33:00 87 /min [facility] Body temperature 2023-04-01 18:33:00 36.67 Jodi [facility] Respiratory rate 2023-04-01 18:33:00 20 /min [facility] Body height 2023-04-01 18:33:00 167.6 cm [facility] Body weight 2023-04-01 18:33:00 108.455 kg [facility] BMI 2023-04-01 18:33:00 38.59 kg/m2 [facility] Oxygen saturation in Arterial blood by Pulse oximetry 2023-04-01 18:33:00 99 /min [facility] Systolic blood pressure 2023-03-30 18:11:00 118 mm[Hg] [facility] Diastolic blood pressure 2023-03-30 18:11:00 83 mm[Hg] [facility] Heart rate 2023-03-30 18:11:00 94 /min [facility] Respiratory rate 2023-03-30 18:11:00 18 /min [facility] Body weight 2023-03-30 18:11:00 108.773 kg [facility] BMI 2023-03-30 18:11:00 39.30 kg/m2 [facility] Systolic blood pressure 2023-03-20 21:26:00 115 mm[Hg] [facility] Diastolic blood pressure 2023-03-20 21:26:00 78 mm[Hg] [facility] Heart rate 2023-03-20 21:26:00 86 /min [facility] Body temperature 2023-03-20 21:26:00 37.17 Jodi [facility] Respiratory rate 2023-03-20 21:26:00 20 /min [facility] Body weight 2023-03-20 21:26:00 109.861 kg [facility] BMI 2023-03-20 21:26:00 39.69 kg/m2 [facility] Oxygen saturation in Arterial blood by Pulse oximetry 2023-03-20 21:26:00 96 /min [facility] Systolic blood pressure 2023-02-02 20:17:00 134 mm[Hg] [facility] Diastolic blood pressure 2023-02-02 20:17:00 85 mm[Hg] [facility] Heart rate 2023-02-02 20:17:00 73 /min [facility] Body temperature 2023-02-02 20:17:00 36.89 Jodi [facility] Respiratory rate 2023-02-02 20:17:00 18 /min [facility] Body height 2023-02-02 20:17:00 166.4 cm [facility] Body weight 2023-02-02 20:17:00 109.77 kg [facility] BMI 2023-02-02 20:17:00 39.66 kg/m2 [facility] Systolic blood pressure 2022-08-05 00:16:00 126 mm[Hg] [facility] Diastolic blood pressure 2022-08-05 00:16:00 85 mm[Hg] [facility] Heart rate 2022-08-05 00:16:00 98 /min [facility] Body temperature 2022-08-05 00:16:00 37.28 Jodi [facility] Respiratory rate 2022-08-05 00:16:00 20 /min [facility] Body height 2022-08-05 00:16:00 167.6 cm [facility] Body weight 2022-08-05 00:16:00 99.791 kg [facility] BMI 2022-08-05 00:16:00 35.51 kg/m2 [facility] Oxygen saturation in Arterial blood by Pulse oximetry 2022-08-05 00:16:00 100 /min [facility] Systolic blood pressure 2022-05-12 14:38:00 153 mm[Hg] [facility] [facility] Diastolic blood pressure 2022-05-12 14:38:00 102 mm[Hg] [facility] Heart rate 2022-05-12 14:38:00 79 /min [facility] Body temperature 2022-05-12 14:38:00 36.17 Jodi [facility] Respiratory rate 2022-05-12 14:38:00 18 /min [facility] Body weight 2022-05-12 14:38:00 97.523 kg [facility] BMI 2022-05-12 14:38:00 34.70 kg/m2 [facility] Oxygen saturation in Arterial blood by Pulse oximetry 2022-05-12 14:38:00 100 /min [facility] Systolic blood pressure 2022-03-24 14:09:00 145 mm[Hg] [facility] Diastolic blood pressure 2022-03-24 14:09:00 108 mm[Hg] [facility] Heart rate 2022-03-24 14:09:00 90 /min [facility] Body temperature 2022-03-24 14:09:00 37.28 Jodi [facility] Respiratory rate 2022-03-24 14:09:00 14 /min [facility] Body height 2022-03-24 14:09:00 167.6 cm [facility] Body weight 2022-03-24 14:09:00 95.255 kg [facility] BMI 2022-03-24 14:09:00 33.89 kg/m2 [facility] Oxygen saturation in Arterial blood by Pulse oximetry 2022-03-24 14:09:00 100 /min [facility] Systolic blood pressure 2022-02-18 02:00:00 147 mm[Hg] [facility] Diastolic blood pressure 2022-02-18 02:00:00 95 mm[Hg] [facility] Heart rate 2022-02-18 02:00:00 78 /min [facility] Respiratory rate 2022-02-18 02:00:00 18 /min [facility] Oxygen saturation in Arterial blood by Pulse oximetry 2022-02-18 02:00:00 99 /min [facility] Body temperature 2022-02-17 23:30:00 37.06 Jodi [facility] Body weight 2022-02-17 23:30:00 98.158 kg [facility] BMI 2022-02-17 23:30:00 34.93 kg/m2 [facility] Systolic blood pressure 2022-02-17 23:10:00 146 mm[Hg] [facility] Diastolic blood pressure 2022-02-17 23:10:00 101 mm[Hg] [facility] Heart rate 2022-02-17 23:10:00 67 /min [facility] Body temperature 2022-02-17 23:10:00 37.56 Jodi [facility] Respiratory rate 2022-02-17 23:10:00 18 /min [facility] Body height 2022-02-17 23:10:00 167.6 cm [facility] Body weight 2022-02-17 23:10:00 95.255 kg [facility] BMI 2022-02-17 23:10:00 33.89 kg/m2 [facility] Oxygen saturation in Arterial blood by Pulse oximetry 2022-02-17 23:10:00 100 /min [facility] Systolic blood pressure 2022-01-26 18:37:00 120 mm[Hg] [facility] Diastolic blood pressure 2022-01-26 18:37:00 77 mm[Hg] [facility] Heart rate 2022-01-26 18:36:00 88 /min [facility] Body temperature 2022-01-26 18:36:00 36.67 Jodi [facility] Respiratory rate 2022-01-26 18:36:00 18 /min [facility] Body height 2022-01-26 18:36:00 165.1 cm [facility] Body weight 2022-01-26 18:36:00 96.616 kg [facility] BMI 2022-01-26 18:36:00 35.45 kg/m2 [facility] Oxygen saturation in Arterial blood by Pulse oximetry 2022-01-26 18:36:00 100 /min [facility] Systolic blood pressure 2021-11-24 09:19:00 125 mm[Hg] [facility] Diastolic blood pressure 2021-11-24 09:19:00 81 mm[Hg] [facility] Heart rate 2021-11-24 09:19:00 67 /min [facility] Respiratory rate 2021-11-24 09:19:00 19 /min [facility] Oxygen saturation in Arterial blood by Pulse oximetry 2021-11-24 09:19:00 99 /min [facility] Body temperature 2021-11-24 03:00:00 36.78 Jodi [facility] Body height 2021-11-24 03:00:00 165.1 cm [facility] Body weight 2021-11-24 03:00:00 97.523 kg [facility] BMI 2021-11-24 03:00:00 35.78 kg/m2 [facility] Systolic blood pressure 2021-11-21 21:13:00 127 mm[Hg] [facility] Diastolic blood pressure 2021-11-21 21:13:00 91 mm[Hg] [facility] Heart rate 2021-11-21 20:50:00 81 /min [facility] Body temperature 2021-11-21 20:50:00 37 Jodi [facility] Respiratory rate 2021-11-21 20:50:00 18 /min [facility] Body height 2021-11-21 20:50:00 165.1 cm [facility] Body weight 2021-11-21 20:50:00 97.523 kg [facility] BMI 2021-11-21 20:50:00 35.78 kg/m2 [facility] Procedures Procedure Date / Time Performed Performing Clinician Source POCT SARS-COV-2 ANTIGEN (BINAX NOW) 2023-12-04 17:31:00 Malena Garcia [facility] POCT MOLECULAR STREP 2023-12-04 17:24:00 Unknown, Atte wale [facility] POCT SARS-COV-2 ANTIGEN (BINAX NOW) 2023-09-15 18:27:00 Malena Garcia [facility] BASIC METABOLIC PANEL (NA, K, CL, CO2, GLUCOSE, BUN, CREATININE, CA) 2023-09-03 10:22:00 Jarrod Mercado [facility] CBC WITH DIFF 2023-09-03 10:22:00 Jarrod Mercado [facility] BASIC METABOLIC PANEL (NA, K, CL, CO2, GLUCOSE, BUN, CREATININE, CA) 2023-09-03 10:22:00 Jarrod Mercado [facility] CBC WITH DIFF 2023-09-03 10:22:00 Jarrod Mercado [facility] LAPAROSCOPIC TOTAL ABDOMINAL HYSTERECTOMY 2023-09-02 21:56:00 Jarrod Mercado [facility] CYSTOSCOPY 2023-09-02 21:56:00 Jarrod Mercado [facility] SALPINGECTOMY 2023-09-02 21:56:00 Jarrod Mercado [facility] LAPAROSCOPIC TOTAL ABDOMINAL HYSTERECTOMY 2023-09-02 21:56:00 Jarrod Mercado [facility] CYSTOSCOPY 2023-09-02 21:56:00 Jarrod Mercado [facility] SALPINGECTOMY 2023-09-02 21:56:00 Jarrod Mercado [facility] DAY SURGERY - ADC 2023-09-02 06:01:00 Doctor Shirley ssigned, Cash [facility] TOTAL BETA HCG ASSAY 2023-09-01 14:50:00 Jarrod Mercado [facility] INSURANCE CORRESPONDENCE 2023-08-25 06:01:00 Doc tor Unassigned, Cash [facility] INSURANCE CORRESPONDENCE 2023-08-21 06:01:00 Doc tor Unassigned, Cash [facility] CBC WITH DIFF 2023-08-19 23:12:00 Cheikh Boyle [facility] SARS-COV-2 COVID 19 ALLY SUCROSE VACCINE 12+, , 0.3 ML (30 MCG), IM PFIZER (TRAN TOP) 2023-08-19 22:08:51 Cheikh Byole [facility] DSU PRE-OP 2023-08-14 06:01:00 Doctor Unass igned, Cash [facility] US PELVIS COMPLETE WITH TRANSVAGINAL 2023-07-30 16:55:00 Jarrod Mercado [facility] POCT TEST 2023-07-30 00:00:00 Jarrod Mercado [facility] POCT TEST 2023-07-23 00:00:00 Jarrod Mercado [facility] POCT MOLECULAR STREP 2023-07-09 21:56:00 Unknown, Atte wale [facility] CBC WITH DIFF 2023-07-01 19:02:00 Taiwo Wharton [facility] PROTHROMBIN TIME / INR 2023-07-01 19:02:00 Silverio Wharton [facility] CT ABDOMEN PELVIS W CONTRAST 2023-06-29 07:44:14 Arianna Whitmore [facility] URINALYSIS 2023-06-29 05:56:00 Arianna Whitmore [facility] LIPASE 2023-06-29 05:51:00 Arianna Whitmore [facility] TROPONIN I 2023-06-29 05:51:00 Arianna Whitmore [facility] COMP. METABOLIC PANEL (10675) 2023-06-29 05:51:00 Arianna Whitmore [facility] CBC WITH DIFF 2023-06-29 05:51:00 [facility] 2023-06-29 05:51:00 rAianna Whitmore [facility] RAPID INFLUENZA A/B 2023-06-29 05:51:00 Arianna Whitmore [facility] COVID-19 (ID NOW RAPID TESTING) 2023-06-29 05:51:00 Arianna Whitmore [facility] ASSIGNMENT OF BENEFITS 2023-06-29 04:31:47 Docto r Unassigned, Cash [facility] CONSENT/REFUSAL FOR DIAGNOSIS AND TREATMENT 2023-06-29 03:52:07 Doctor Unassigned, Cash [facility] US LIVER 2023-06-15 15:16:11 Cheikh Boyle [facility] CONSENT/REFUSAL FOR DIAGNOSIS AND TREATMENT 2023-06-11 05:01:00 Doctor Unassigned, Cash [facility] NO SHOW OR MISSED APPOINTMENT POLICY ACKNOWLEDGEMENT 2023-06-11 05:01:00 Doctor Unassigned, Cash [facility] POCT MOLECULAR FLU 2023-05-22 21:09:00 Unknown, Attend ing [facility] POCT SARS-COV-2 ANTIGEN (BINAX NOW) 2023-05-22 21:01:00 Sera Worthy [facility] INSURANCE CORRESPONDENCE 2023-05-18 05:01:00 Doc tor Unassigned, Cash [facility] TRANSTHORACIC ECHO (TTE) COMPLETE 2023-05-15 15:04:27 Nicanor Hall [facility] INSURANCE CORRESPONDENCE 2023-05-13 05:01:00 Doc tor Unassigned, Cash [facility] EXTERNAL PROVIDER RECORDS 2023-04-14 05:01:00 Do ctor Unassigned, Cash [facility] POCT SARS-COV-2 ANTIGEN (BINAX NOW) 2023-04-03 20:55:00 Sera Worthy [facility] POCT SARS-COV-2 ANTIGEN (BINAX NOW) 2023-03-20 21:30:00 Sera Worthy [facility] ASSIGNMENT OF BENEFITS 2023-02-02 20:09:30 Christo r Unassigned, Cash [facility] POCT TEST 2023-02-02 00:00:00 Ernesto Smith [facility] XR HAND 3+ VW LEFT 2022-08-05 00:55:28 Nii Abraham [facility] CONSENT/REFUSAL FOR DIAGNOSIS AND TREATMENT 2022-08-04 23:55:33 Doctor Unassigned, Cash [facility] XR FINGERS 2 VW LEFT 2022-05-12 15:57:11 Ciarra Frank [facility] XR WRIST 3+ VW LEFT 2022-05-12 15:57:11 Ciarra Frank [facility] CONSENT/REFUSAL FOR DIAGNOSIS AND TREATMENT 2022-05-12 14:32:26 Doctor Unassigned, Cash [facility] CONSENT/REFUSAL FOR DIAGNOSIS AND TREATMENT 2022-03-24 14:06:23 Doctor Unassigned, Cash [facility] US PELVIS COMPLETE NON-OB 2022-02-18 01:07:39 [address] [facility] CT ABDOMEN PELVIS W CONTRAST 2022-02-18 00:35:22 Natalie Almendarez [facility] POCT TEST 2022-02-18 00:22:00 Natalie Almendarez [facility] TEST, SERUM 2022-02-18 00:21:00 Terry Almendarez [facility] COMP. METABOLIC PANEL ([id number]) 2022-02-18 00:21:00 Natalie Almendarez [facility] CBC WITH DIFF 2022-02-18 00:21:[address] [facility] URINALYSIS 2022-02-18 00:21[facility]AG[facility]IS [facility] TREATMENT 2022-02-17 23:21:20 Doctor Unassigned, Cash [facility] SARS-COV-2 COVID-19 VACCINE BOOSTER,0.25ML,IM (MODERNA) 2022-01-23 19:36:51 Doctor Unassigned, Cash [facility] US OVARY TORSION 2021-11-24 08:01:43 Arianna Whitmore [facility] CT ABDOMEN PELVIS W CONTRAST 2021-11-24 04:24:09 Arianna Whitmore [facility] POCT TEST 2021-11-24 03:18:00 Arianna Whitmore [facility] LIPASE 2021-11-24 03:17:00 Arianna Whitmore [facility] COMP. METABOLIC PANEL ([id number]) 2021-11-24 03:17:00 Arianna Whitmore [facility] CBC WITH DIFF 2021-11-24 03:17:00 Arianna Whitmore [facility] URINALYSIS 2021-11-24 03:17:00 Arianna Whitmore [facility] NOTICE OF PRIVACY PRACTICES 2021-11-24 02:50:34 Doctor Unassigned, Cash [facility] CONSENT/REFUSAL FOR DIAGNOSIS AND TREATMENT 2021-11-24 02:50:13 Doctor Unassigned, Cash [facility] Encounters Start Date/Time End Date/Time Encounter Type Admission Type Attending Clinicians Care Facility Care Department Encounter ID Source 2021-06-10 21:56:33 Emergency [facility] [id number] [facility] 2021-06-10 11:43:59 Emergency [facility] [id number] [facility] 2021-06-10 11:18:46 Emergency [facility] [id number] [facility] 2021-06-10 09:58:36 Emergency [facility] [id number] [facility] 2021-06-09 00:40:14 Emergency [facility] [id number] [facility] 2021-06-08 04:28:04 Emergency [facility] [id number] [facility] 2021-06-07 16:30:58 Emergency [facility] [id number] [facility] 2021-06-06 17:46:29 Emergency [facility] [id number] [facility] 2024-03-09 00:00:00 2024-03-10 09:58:48 RefCheikh Maloney [facility] 1.2.840.114 350.1.13.10 4.2.7.2.686 [id number] [facility] 2024-03-09 00:00:00 2024-03-09 19:55:42 Frannie Boston [facility] 1.2.840.114 350.1.13.10 4.2.7.2.686 [id number] [facility] 2024-03-03 10:30:00 2024-03-03 10:30:00 Outpatient R JARROD MERCADO VIEN [facility] [id number] [facility] 2024-02-08 10:30:00 2024-02-08 10:30:00 Outpatient TAIWO LOU [facility] [id number] [facility] 2023-12-28 00:00:00 2024-01-30 18:21:31 Patient Secure Msg Doctor Unassigned, Cash [facility] 1.2840.114 350.1.13.10 4.2.7.2.686 [id number] [facility] 2023-11-28 00:00:00 2024-01-02 18:09:38 Patient Secure Msg Jan Estrada [facility] FRANCIS MAGALLANES 1.2840.114 350.1.13.10 4.2.7.2.686 [id number] [facility] 2023-12-22 00:00:00 2023-12-22 09:17:07 Telephone Promise Mullen [facility] 1..840.114 350.1.13.10 4.2.7.2.686 [id number] [facility] 2023-12-10 13:00:00 2023-12-10 13:00:00 Outpatient R CHEIKH BOYLE [facility] [id number] [facility] 2023-12-04 12:20:00 2023-12-04 13:14:26 Outpatient R SERGO VIERA [facility] [id number] [facility] 2023-12-04 12:20:00 2023-12-04 12:40:00 Urgent Care Sergo Viera Unknown, Attending [facility] 1..840.114 350.1.13.10 4.2.7.2.686 [id number] [facility] 2023-10-19 00:00:00 2023-10-19 00:00:00 Telephone [facility] 1..840.114 350.1.13.10 4.2.7.2.686 [id number] [facility] 2023-09-30 10:45:00 2023-09-30 10:45:00 Outpatient R JARROD MERCADO [facility] [id number] [facility] 2023-09-24 00:00:00 2023-09-24 00:00:00 Telephone Promise Mullen [facility] 1..840.114 350.1.13.10 4.2.7.2.686 [id number] [facility] 2023-09-17 13:15:00 2023-09-17 13:30:00 Office Visit Jarrod Mercado [facility] 1..840.114 350.1.13.10 4.2.7.2.686 [id number] [facility] 2023-09-17 13:15:00 2023-09-17 13:15:00 Outpatient R JESS JARROD [facility] [id number] [facility] 2023-09-16 00:00:00 2023-09-16 00:00:00 Telephone Malena Garcia [facility] 1..840.114 350.1.13.10 4.2.7.2.686 [id number] [facility] 2023-09-15 12:00:00 2023-09-15 13:07:33 Outpatient R MALENA GARCIA [facility] [id number] [facility] 2023-09-15 12:00:00 2023-09-15 12:20:00 Urgent Care Malena Garcia Unknown, Attending [facility] 1..840.114 350.1.13.10 4.2.7.2.686 [id number] [facility] 2023-09-08 00:00:00 2023-09-08 00:00:00 Case Management Jarrod Mercado [facility] 1..840.114 350.1.13.10 4.2.7.2.686 [id number] [facility] 2023-09-07 00:00:00 2023-09-07 00:00:00 Patient Secure Msg Doctor Unassigned, Cash [facility] 1..840.114 350.1.13.10 4.2.7.2.686 [id number] [facility] 2023-09-04 00:00:00 2023-09-04 00:00:00 Telephone Jarrod Mercado [facility] 1.2.840.114 350.1.13.10 4.2.7.2.686 [id number] [facility] 2023-09-02 13:20:00 2023-09-03 08:40:00 Outpatient R JARROD MERCADO [facility] 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 [id number] [facility] 2023-09-02 13:20:00 2023-09-03 08:40:00 Hospital Encounter Jarrod Mercado [facility] 1.2.840.114 350.1.13.10 4.2.7.2.686 [id number] [facility] 2023-09-03 00:00:00 2023-09-03 00:00:00 Telephone [facility] 1.2.840.114 350.1.13.10 4.2.7.2.686 [id number] [facility] 2023-09-02 12:41:00 2023-09-02 17:07:00 Surgery Jarrod Mercado [facility] 1.2.840.114 350.1.13.10 4.2.7.2.686 [id number] [facility] 2023-09-02 00:00:00 2023-09-02 00:00:00 Orders Only Doctor Unassigned, Cash [facility] 1.2.840.114 350.1.13.10 4.2.7.2.686 [id number] [facility] 2023-09-01 13:00:00 2023-09-01 13:20:00 Office Visit Oscar-Troy Vicente [facility] 1.2.840.114 350.1.13.10 4.2.7.2.686 [id number] [facility] 2023-09-01 13:00:00 2023-09-01 13:00:00 Outpatient R OBI-FLOR , TROY OBI-FLOR LorenzoTROY [facility] [id number] [facility] 2023-09-01 09:15:00 2023-09-01 09:30:00 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 Visit Pob, Adc Lab Main Jarrod Mercado [facility] BUILDING 1.20.114 350.1.13.10 4.2.7.2.686 [id number] [facility] 2023-09-01 00:00:00 2023-09-01 00:00:00 Telephone Jarrod Mercado [facility] BUILDING 1.2840.114 350.1.13.10 4.2.7.2.686 [id number] [facility] 2023-08-28 00:00:00 2023-08-28 00:00:00 Telephone Promise Mullen [facility] 1..114 350.1.13.10 4.2.7.2.686 [id number] [facility] 2023-08-26 13:00:00 2023-08-26 13:15:40 Outpatient R NICANOR HALL [facility] [id number] [facility] 2023-08-26 13:00:00 2023-08-26 13:15:40 [facility]..114 350.1.13.10 4.2.7.2.686 [id number] [facility] 2023-08-25 00:00:00 2023-08-25 00:00:00 Orders Only Doctor Unassigned, Cash [facility] 1.0.114 350.1.13.10 4.2.7.2.686 [id number] [facility] 2023-08-21 00:00:00 2023-08-21 00:00:00 Orders Only Doctor Unassigned, Cash [facility] 1.2.840.114 350.1.13.10 4.2.7.2.686 [id number] [facility] 2023-08-20 00:00:00 2023-08-20 00:00:00 Telephone Jenniededegallo Cheikh [facility] 1.2.840.114 350.1.13.10 4.2.7.2.686 [id number] [facility] 2023-08-19 16:30:00 2023-08-19 16:45:00 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 Visit Pob, Adc Lab Main [place] [facility] 1.2840.114 350.1.13.10 4.2.7.2.686 [id number] [facility] 2023-08-19 15:00:00 2023-08-19 16:36:17 Outpatient R CHEIKH BOYLE [facility] [id number] [facility] 2023-08-19 15:00:00 2023-08-19 16:36:17 Office Visit [place] [facility] 1.2.840.114 350.1.13.10 4.2.7.2.686 [id number] [facility] 2023-08-14 00:00:00 2023-08-14 00:00:00 Orders Only Doctor Unassigned, Cash [facility] 1.2840.114 350.1.13.10 4.2.7.2.686 [id number] [facility] 2023-08-13 14:00:00 2023-08-13 15:13:42 Outpatient R JARROD MERCADO [facility] [id number] [facility] 2023-08-13 14:00:00 2023-08-13 15:13:42 Office Visit Jarrod Mercado [facility] 1.2.840.114 350.1.13.10 4.2.7.2.686 [id number] [facility] 2023-08-12 15:30:00 2023-08-12 15:30:00 Outpatient R AKIKO TAIWO [facility] [id number] [facility] 2023-08-12 00:00:00 2023-08-12 00:00:00 Telephone Promise Mullen [facility] SPECIALTY [facility] 1.840.114 350.1.13.10 4.2.7.2.686 [id number] [facility] 2023-07-30 10:24:56 2023-07-30 23:59:00 Hospital Encounter Jarrod Mercado [facility] 1.840.114 350.1.13.10 4.2.7.2.686 [id number] [facility] 2023-07-30 15:00:00 2023-07-30 15:36:01 Outpatient R JESS [facility] [id number] [facility] 2023-07-30 15:00:00 2023-07-30 15:36:01 Office Visit Jarrod Mercado [facility] 1..840.114 350.1.13.10 4.2.7.2.686 [id number] [facility] 2023-07-24 00:00:00 2023-07-24 00:00:00 Case Management Taiwo Wharton [facility] 1.2840.114 350.1.13.10 4.2.7.2.686 [id number] [facility] 2023-07-24 00:00:00 2023-07-24 00:00:00 Telephone Taiwo Wharton [facility] [place] [facility] 1.2.840.114 350.1.13.10 4.2.7.2.686 [id number] [facility] 2023-07-24 00:00:00 2023-07-24 00:00:00 Telephone Promise Mullen [facility] 1.2.840.114 350.1.13.10 4.2.7.2.686 [id number] [facility] 2023-07-23 08:00:00 2023-07-23 09:04:50 Outpatient R JESS JARROD [facility] [id number] [facility] 2023-07-23 08:00:00 2023-07-23 09:04:50 Office Visit Jarrod Mercado [facility] 1.2.840.114 350.1.13.10 4.2.7.2.686 [id number] [facility] 2023-07-23 00:00:00 2023-07-23 00:00:00 Prep For Surgery Jarrod Mercado [facility] BUILDING 1.2.840.114 350.1.13.10 4.2.7.2.686 [id number] [facility] 2023-07-23 00:00:00 2023-07-23 00:00:00 Telephone Taiwo Wharton [facility] SPECIALTY [facility] 1.2.840.114 350.1.13.10 4.2.7.2.686 [id number] [facility] 2023-07-22 15:00:00 2023-07-22 15:00:00 Outpatient R [facility] [id number] [facility] 2023-07-22 00:00:00 2023-07-22 00:00:00 Telephone Mercado, Jarrod Cam [facility] PROFESSIO NAL BUILDING 1.84.114 350.1.13.10 4.2.7.2.686 [id number] [facility] 2023-07-10 00:00:00 2023-07-10 00:00:00 [facility] [place] [facility] 1.84.114 350.1.13.10 4.2.7.2.686 [id number] [facility] 2023-07-09 16:00:00 2023-07-09 16:20:00 Urgent Care Sera Worthy Unknown, [facility] 1.84.114 350.1.13.10 4.2.7.2.686 [id number] [facility] 2023-07-09 16:00:00 2023-07-09 16:00:00 Outpatient Sona SMITH [facility] [id number] [facility] 2023-07-01 13:00:00 2023-07-01 13:15:00 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 Visit Lab, [facility] Akiko [facility] AT [facility] .840.114 350.1.13.10 4.2.7.2.686 [id number] [facility] 2023-07-01 13:00:00 2023-07-01 13:00:00 Outpatient R TAIWO WHARTON [facility] [id number] [facility] 2023-07-01 12:30:00 2023-07-01 12:39:11 Office Visit Taiwo Wharton [facility] [place] [facility] .840.114 350.1.13.10 4.2.7.2.686 [id number] [facility] 2023-06-29 15:00:00 2023-06-29 15:00:00 Outpatient R OBI-FLOR , TROY OBI-FLOR , TROY [facility] [id number] [facility] 2023-06-28 22:11:00 2023-06-29 02:54:00 Emergency X ARIANNA WHITMORE [facility] ERT [id number] [facility] 2023-06-28 22:11:00 2023-06-29 02:54:00 Emergency Arianna Whitmore [facility] 1..840.114 350.1.13.10 4.2.7.2.686 [id number] [facility] 2023-06-24 14:00:00 2023-06-24 14:00:00 Outpatient R OBI-FLOR , TROY OBI-FLOR , TROY [facility] [id number] [facility] 2023-06-23 08:40:00 2023-06-23 08:40:00 Outpatient R OBI-FLOR , TROY OBI-FLOR , TROY [facility] [id number] [facility] 2023-06-23 00:00:00 2023-06-23 00:00:00 Telephone Kimberly Guajardo [facility] 1..840.114 350.1.13.10 4.2.7.2.686 [id number] [facility] 2023-06-22 00:00:00 2023-06-22 00:00:00 Patient Secure Rafael Nicanor [facility] 1..840.114 350.1.13.10 4.2.7.2.686 [id number] [facility] 2023-06-18 11:20:00 2023-06-18 11:20:00 Outpatient R OBI-FLOR , TROY OBI-FLOR , TROY [facility] [id number] [facility] 2023-06-15 08:52:22 2023-06-15 23:59:00 Outpatient R [place] [facility] [id number] [facility] 2023-06-15 08:52:22 2023-06-15 23:59:00 Hospital Encounter Cheikh Boyle [facility] 1..840.114 350.1.13.10 4.2.7.2.686 [id number] [facility] 2023-06-15 00:00:00 2023-06-15 00:00:00 Patient Secure Msg [place] [facility] 1..840.114 350.1.13.10 4.2.7.2.686 [id number] [id number] [facility] 2023-06-11 14:00:00 2023-06-11 15:36:52 Outpatient R NICANOR HALL [facility] [id number] [facility] 2023-06-11 14:00:00 2023-06-11 15:36:52 Ancillary Visit Therapist, Adc Pulmonary Rafael [facility] 1..840.114 350.1.13.10 4.2.7.2.686 [id number] [facility] 2023-06-11 00:00:00 2023-06-11 00:00:00 Patient Secure g [place] [facility]ILD[facility] 1..840.114 350.1.13.10 4.2.7.2.686 [id number] 044 [id number] [facility] 2023-06-10 00:00:00 2023-06-10 00:00:00 RefCheikh Maloney [facility] 1.2.840.114 350.1.13.10 4.2.7.2.686 [id number] 044 [id number] [facility] 2023-06-03 00:00:00 2023-06-03 00:00:00 Patient Secure Msg Gonzaleznicolette hCeikh [facility] 1.2840.114 350.1.13.10 4.2.7.2.686 [id number] 044 [id number] [facility] 2023-06-01 00:00:00 2023-06-01 00:00:00 Telephone Kimberly Guajardo [facility] 1.2840.114 350.1.13.10 4.2.7.2.686 [id number] [facility] 2023-05-22 15:40:00 2023-05-22 16:43:37 Outpatient R SERA WORTHY [facility] [id number] [facility] 2023-05-22 15:40:00 2023-05-22 16:43:37 Urgent Care Sera Worthy Unknown, Attending [facility] 1.2840.114 350.1.13.10 4.2.7.2.686 [id number] [facility] 2023-05-21 00:00:00 2023-05-21 00:00:00 Telephone Kimberly Guajardo [facility] 1.2840.114 350.1.13.10 4.2.7.2.686 [id number] [facility] 2023-05-19 00:00:00 2023-05-19 00:00:00 Telephone Cheikh Boyle [facility] 1.2840.114 350.1.13.10 4.2.7.2.686 [id number] 044 [id number] [facility] 2023-05-18 00:00:00 2023-05-18 00:00:00 Telephone Kimberly Guajardo [facility] 1.2.840.114 350.1.13.10 4.2.7.2.686 [id number] [facility] 2023-05-18 00:00:00 2023-05-18 00:00:00 Orders Only Doctor Unassigned, Cash [facility] 1.2.840.114 350.1.13.10 4.2.7.2.686 [id number] [facility] 2023-05-17 00:00:00 2023-05-17 00:00:00 Patient Secure Msg Rafael [facility] 1.2.840.114 350.1.13.10 4.2.7.2.686 [id number] [facility] 2023-05-15 10:00:59 2023-05-15 23:59:00 Outpatient R AMBROCIO [facility]ALLFORMERLY [facility] [id number] [facility] 2023-05-15 10:00:59 2023-05-15 23:59:00 [facility] 1.2.840.114 350.1.13.10 4.2.7.2.686 [id number] [facility] 2023-05-15 08:46:23 2023-05-15 09:59:00 [facility] 1.2.840.114 350.1.13.10 4.2.7.2.686 [id number] [facility] 2023-05-14 00:00:00 2023-05-14 00:00:00 Harman Smith Frannie [facility] 1.2840.114 350.1.13.10 4.2.7.2.686 [id number] 134 [id number] [facility] 2023-05-13 11:20:00 2023-05-13 11:20:00 Office Visit RafaelNicanor [facility] 1.2840.114 350.1.13.10 4.2.7.2.686 [id number] [id number] [facility] 2023-05-13 10:45:00 2023-05-13 11:00:00 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 Visit 2, Adc Lab JenniededeconornicoletteCheikh [facility] 1.2840.114 350.1.13.10 4.2.7.2.686 [id number] [facility] 2023-05-13 08:20:00 2023-05-13 10:20:16 Outpatient R JENNIEGEORGETTECHEIKH [facility] [id number] [facility] 2023-05-13 08:20:00 2023-05-13 10:20:16 Office Visit JenniegeorgetteCheikh [facility] 1.20.114 350.1.13.10 4.2.7.2.686 [id number] [id number] [facility] 2023-05-13 00:00:00 2023-05-13 00:00:00 Harman Frannie Smith [facility] 1.2840.114 350.1.13.10 4.2.7.2.686 [id number] 134 [id number] [facility] 2023-05-13 00:00:00 2023-05-13 00:00:00 Case Management Red Cramer [facility] 1..114 350.1.13.10 4.2.7.2.686 [id number] [facility] 2023-05-13 00:00:00 2023-05-13 00:00:00 Telephone Cheikh Boyle [facility] 1.2.840.114 350.1.13.10 4.2.7.2.686 [id number] [facility] 2023-05-13 00:00:00 2023-05-13 00:00:00 Patient Secure Msg Frannie Smith [facility] 1.2.840.114 350.1.13.10 4.2.7.2.686 [id number] [facility] 2023-05-13 00:00:00 2023-05-13 00:00:00 Patient Secure Msg Doctor Unassigned, Cash [facility] 1.2.840.114 350.1.13.10 4.2.7.2.686 [id number] 134 [id number] [facility] 2023-05-13 00:00:00 2023-05-13 00:00:00 Patient Secure Msg Cheikh Boyle [facility] 1.2.840.114 350.1.13.10 4.2.7.2.686 [id number] [id number] [facility] 2023-05-13 00:00:00 2023-05-13 00:00:00 Orders Only Doctor Unassigned, Cash [facility] 1.2.840.114 350.1.13.10 4.2.7.2.686 [id number] [facility] 2023-05-12 00:00:00 2023-05-12 00:00:00 Patient Secure Msg Cheikh Boyle [facility] 1.2.840.114 350.1.13.10 4.2.7.2.686 [id number] 044 [id number] [facility] 2023-05-08 10:40:00 2023-05-08 10:40:00 Outpatient R CHEIKH BOYLE [facility] [id number] [facility] 2023-05-08 00:00:00 2023-05-08 00:00:00 Patient Secure Msg Cheikh Boyle [facility] 1.2.840.114 350.1.13.10 4.2.7.2.686 [id number] 044 [id number] [facility] 2023-05-07 00:00:00 2023-05-07 00:00:00 Telephone Cheikh Boyle [facility] 1..840.114 350.1.13.10 4.2.7.2.686 [id number] 044 [id number] [facility] 2023-05-04 00:00:00 2023-05-04 00:00:00 Patient Secure Msg Doctor Unassigned, Cash [facility] 1.2840.114 350.1.13.10 4.2.7.2.686 [id number] [facility] 2023-05-01 00:00:00 2023-05-01 00:00:00 Patient Secure Msg Doctor Unassigned, Cash [facility] 1.2840.114 350.1.13.10 4.2.7.2.686 [id number] [facility] 2023-04-29 15:30:00 2023-04-29 15:38:38 Outpatient R FRANNIE SMITH [facility] [id number] [facility] 2023-04-29 15:30:00 2023-04-29 15:38:38 Nurse Visit [facility], [facility] 1.2.840.114 350.1.13.10 4.2.7.2.686 [id number] [facility] 2023-04-29 00:00:00 2023-04-29 00:00:00 Patient Secure Msg Cheikh Boyle [facility] 1.2.840.114 350.1.13.10 4.2.7.2.686 [id number] 044 [id number] [facility] 2023-04-29 00:00:00 2023-04-29 00:00:00 Telephone Cheikh Boyle [facility] 1.2.840.114 350.1.13.10 4.2.7.2.686 [id number] 044 [id number] [facility] 2023-04-28 00:00:00 2023-04-28 00:00:00 Frannie Boston [facility] 1.2.840.114 350.1.13.10 4.2.7.2.686 [id number] 134 [id number] [facility] 2023-04-21 00:00:00 2023-04-21 00:00:00 Telephone Cheikh Boyle [facility] 1.2.840.114 350.1.13.10 4.2.7.2.686 [id number] 044 [id number] [facility] 2023-04-20 00:00:00 2023-04-20 00:00:00 Patient Secure Msg Cheikh Boyle [facility] 1.2.840.114 350.1.13.10 4.2.7.2.686 [id number] 044 [id number] [facility] 2023-04-14 00:00:00 2023-04-14 00:00:00 Orders Only Doctor Unassigned, Cash [facility] 1.2.840.114 350.1.13.10 4.2.7.2.686 [id number] [id number] [facility] 2023-04-14 00:00:00 2023-04-14 00:00:00 Telephone Cheikh Boyle [facility] 1..840.114 350.1.13.10 4.2.7.2.686 [id number] 044 [id number] [facility] 2023-04-10 00:00:00 2023-04-10 00:00:00 Telephone Cheikh Boyle [facility] 1..840.114 350.1.13.10 4.2.7.2.686 [id number] 044 [id number] [facility] 2023-04-04 15:40:00 2023-04-04 15:40:00 Outpatient R [facility] [id number] [facility] 2023-04-04 15:00:00 2023-04-04 15:00:00 Outpatient R UNKNOWN, ATTENDING [facility] [id number] [facility] 2023-04-03 15:40:00 2023-04-03 16:07:45 Outpatient R SERA WORTHY [facility] [id number] [facility] 2023-04-03 15:40:00 2023-04-03 16:00:00 Urgent Care Sera Worthy Unknown, Attending [facility] 1..840.114 350.1.13.10 4.2.7.2.686 [id number] 370 [id number] [facility] 2023-04-03 15:45:00 2023-04-03 15:45:00 Outpatient R UNKNOWN, ATTENDING [facility] [id number] [facility] 2023-04-02 00:00:00 2023-04-02 00:00:00 Patient Secure Msg Doctor Unassigned, Cash [facility] 1.2.840.114 350.1.13.10 4.2.7.2.686 [id number] 134 [id number] [facility] 2023-04-01 13:40:00 2023-04-01 14:40:45 Outpatient R CHEIKH BOYLE [facility] [id number] [facility] 2023-04-01 13:40:00 2023-04-01 14:40:45 Office Visit Cheikh Boyle [facility] 1.2.840.114 350.1.13.10 4.2.7.2.686 [id number] [id number] [facility] 2023-04-01 00:00:00 2023-04-01 00:00:00 Case Management Jarrod Mercado [facility] 1.2.840.114 350.1.13.10 4.2.7.2.686 [id number] 134 [id number] [facility] 2023-04-01 00:00:00 2023-04-01 00:00:00 Patient Secure Msg Cheikh Boyle [facility] 1.2.840.114 350.1.13.10 4.2.7.2.686 [id number] 044 [id number] [facility] 2023-03-31 00:00:00 2023-03-31 00:00:00 Letter (Out) Sabiha Vargas [facility] 1.2.840.114 350.1.13.10 4.2.7.2.686 [id number] [facility] 2023-03-30 13:00:00 2023-03-30 13:53:48 Outpatient R JARROD MERCADO [facility] [id number] [facility] 2023-03-30 13:00:00 2023-03-30 13:53:48 Office Visit Jarrod Mercado [facility] 1.2840.114 350.1.13.10 4.2.7.2.686 [id number] 134 [id number] [facility] 2023-03-30 10:00:00 2023-03-30 10:23:54 Laboratory Only Only, Ang Db Test Unknown, [facility] 1.20.114 350.1.13.10 4.2.7.2.686 [id number] 370 [id number] [facility] 2023-03-30 00:00:00 2023-03-30 00:00:00 Letter (Out) Jose Malena [facility] 1.2.114 350.1.13.10 4.2.7.2.686 [id number] 370 [id number] [facility] 2023-03-30 00:00:00 2023-03-30 00:00:00 Refill Bayron [facility] 1.2840.114 350.1.13.10 4.2.7.2.686 [id number] 044 [id number] [facility] 2023-03-27 00:00:00 2023-03-27 00:00:00 Refill Frannie Smith [facility] 1.2840.114 350.1.13.10 4.2.7.2.686 [id number] 134 [id number] [facility] 2023-03-27 00:00:00 2023-03-27 00:00:00 Refill Cheikh Boyle [facility] 1.284.114 350.1.13.10 4.2.7.2.686 [id number] 044 [id number] [facility] 2023-03-27 00:00:00 2023-03-27 00:00:00 Refill Cheikh Boyle [facility] 1.20.114 350.1.13.10 4.2.7.2.686 [id number] 044 [id number] [facility] 2023-03-25 00:00:00 2023-03-25 00:00:00 Patient Secure Msg Frannie Smith [facility] 1.2.840.114 350.1.13.10 4.2.7.2.686 [id number] 134 [id number] [facility] 2023-03-24 00:00:00 2023-03-24 00:00:00 Telephone Gladys Frannie [facility] 1.2.840.114 350.1.13.10 4.2.7.2.686 [id number] 134 [id number] [facility] 2023-03-21 00:00:00 2023-03-21 00:00:00 Telephone Kimmy Prieto [facility] 1.284.114 350.1.13.10 4.2.7.2.686 [id number] [facility] 2023-03-20 15:40:00 2023-03-20 16:35:15 Urgent Care Sera Worthy Unknown, Attending [facility] 1.2.840.114 350.1.13.10 4.2.7.2.686 [id number] 370 [id number] [facility] 2023-03-20 16:00:00 2023-03-20 16:00:00 Outpatient R AMERICO, ATTENDING [facility] [id number] [facility] 2023-02-27 14:40:00 2023-02-27 14:40:00 Outpatient R CHEIKH BOYLE [facility] [id number] [facility] 2023-02-18 00:00:00 2023-02-18 00:00:00 Patient Secure Msg Doctor Unassigned, Cash [facility] 1.2.840.114 350.1.13.10 4.2.7.2.686 [id number] 044 [id number] [facility] 2023-02-11 11:20:00 2023-02-11 11:20:00 Outpatient Sona SCHNEIDERDEDECHEIKH FISHER [facility] [id number] [facility] 2023-02-04 00:00:00 2023-02-04 00:00:00 Telephone Gladys Frannie [facility] 1.2.840.114 350.1.13.10 4.2.7.2.686 [id number] 044 [id number] [facility] 2023-02-03 00:00:00 2023-02-03 00:00:00 Patient Secure Msg Gladys [facility] BUILDING 1.2.840.114 350.1.13.10 4.2.7.2.686 [id number] 134 [id number] [facility] 2023-02-03 00:00:00 2023-02-03 00:00:00 Patient Secure Msg Gladys [facility] BUILDING 1.2.840.114 350.1.13.10 4.2.7.2.686 [id number] 134 [id number] [facility] 2023-02-02 16:15:00 2023-02-02 16:30:00 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 Visit Pob, Adc Lab Main Gladys [facility] BUILDING 1.2.840.114 350.1.13.10 4.2.7.2.686 [id number] 353 [id number] [facility] 2023-02-02 15:45:00 2023-02-02 16:15:00 Office Visit Gladys [facility] BUILD[facility] 1.2.840.114 350.1.13.10 4.2.7.2.686 [id number] 134 [id number] [facility] 2023-02-02 15:45:00 2023-02-02 16:02:01 Outpatient FRANNIE JIMENEZ [facility] [id number] [facility] 2023-02-02 00:00:00 2023-02-02 00:00:00 Orders Only Doctor Unassigned, Cash [facility] 1.840.114 350.1.13.10 4.2.7.2.686 [id number] [facility] 2023-01-07 09:45:00 2023-01-07 09:45:00 Outpatient Sona SMITH FRANNIE [facility] [id number] [facility] 2023-01-06 15:20:00 2023-01-06 15:20:00 Outpatient CHEIKH LIZAMA [facility] [id number] [facility] 2022-08-16 11:30:00 2022-08-16 11:47:21 Outpatient CAMELIA LONGORIA [facility] [id number] [facility] 2022-08-16 11:30:00 2022-08-16 11:45:00 Laboratory Only Only, Ang Db Test Unknown, Attending [facility] 1..840.114 350.1.13.10 4.2.7.2.686 [id number] 370 [id number] [facility] 2022-08-04 18:18:00 2022-08-04 20:38:00 Emergency X NII BONILLA [facility] ERT [id number] [facility] 2022-08-04 18:18:00 2022-08-04 20:38:00 Emergency AuNii izaguirre [facility] 1..840.114 350.1.13.10 4.2.7.2.686 [id number] [facility] 2022-05-12 09:39:00 2022-05-12 12:15:00 Emergency X CIARRA FRANK [facility] ERT [id number] [facility] 2022-05-12 09:39:00 2022-05-12 12:15:00 Emergency Ciarra Frank [facility] 1.2.840.114 350.1.13.10 4.2.7.2.686 [id number] [facility] 2022-04-29 09:30:00 2022-04-29 09:30:00 Outpatient Sona SMITH FRANNIE [facility] [id number] [facility] 2022-04-23 14:30:00 2022-04-23 14:30:00 Outpatient Sona SMITH [facility] [id number] [facility] 2022-04-22 11:15:00 2022-04-22 11:15:00 Outpatient Sona SMITH [facility] [id number] [facility] 2022-04-08 10:00:00 2022-04-08 10:00:00 Outpatient ADELINE HARRIS [facility] [id number] [facility] 2022-04-03 08:30:00 2022-04-03 08:30:00 Outpatient Sona SMITH FRANNIE [facility] [id number] [facility] 2022-03-24 09:13:00 2022-03-24 09:37:00 Emergency X LIZANDRO KEATING [facility] ERT [id number] [facility] 2022-03-24 09:13:00 2022-03-24 09:37:00 Emergency Lizandro Keating [facility] 1..840.114 350.1.13.10 4.2.7.2.686 [id number] [facility] 2022-02-21 00:00:00 2022-02-21 00:00:00 Outpatient R BRITTANY BELCHER [facility] [id number] [facility] 2022-02-20 15:30:00 2022-02-20 15:30:00 Outpatient R SEANJAN [facility] [id number] [facility] 2022-02-18 14:30:00 2022-02-18 14:30:00 Outpatient R FRANNIE SMITH [facility] [id number] [facility] 2022-02-17 18:40:00 2022-02-17 21:13:00 Emergency X NATALIE ALMENDAREZ [facility] ERT [id number] [facility] 2022-02-17 18:40:00 2022-02-17 21:13:00 Emergency Natalie Almendarez R [facility] 1..840.114 350.1.13.10 4.2.7.2.686 [id number] [facility] 2022-02-17 18:15:00 2022-02-17 18:35:00 Nurse Visit Nurse, [facility] 1..840.114 350.1.13.10 4.2.7.2.686 [id number] 370 [id number] [facility] 2022-02-17 18:15:00 2022-02-17 18:15:00 [facility] [id number] [facility] 2022-01-28 15:30:00 2022-01-28 15:30:00 Outpatient R JAN ESTRADA [facility] [id number] [facility] 2022-01-27 00:00:00 2022-01-27 00:00:00 Letter (Out) Xochitl Kaur [facility] 1.840.114 350.1.13.10 4.2.7.2.686 [id number] [facility] 2022-01-26 13:40:00 2022-01-26 14:06:12 Outpatient R SHANNAN STEWARD [facility] [id number] [facility] 2022-01-26 13:40:00 2022-01-26 14:06:12 Urgent Care Shannan Steward [facility] 1.84.114 350.1.13.10 4.2.7.2.686 [id number] [facility] 2022-01-26 00:00:00 2022-01-26 00:00:00 Letter (Out) Provider, Aurelio Flores [facility] Care [facility] 1.84.114 350.1.13.10 4.2.7.2.686 [id number] 370 [id number] [facility] 2022-01-23 14:00:00 2022-01-23 14:10:00 Imm/Inj Visit Vaccine, Aurelio Flores Cbc Fam Dominic Peralta [facility] OFF[facility] 1.84.114 350.1.13.10 4.2.7.2.686 [id number] [facility] 2022-01-23 14:00:00 2022-01-23 14:00:00 Outpatient DOMINIC BAL [facility] [id number] [facility] 2022-01-22 14:40:00 2022-01-22 14:40:00 Outpatient CHEIKH LIZAMA [facility] [id number] [facility] 2021-12-27 00:00:00 2021-12-27 00:00:00 Outpatient BRITTANY UMAÑA [facility] [id number] [facility] 2021-11-28 00:00:00 2021-11-28 00:00:00 Letter (Out) Xochitl Kaur [facility] 1.84.114 350.1.13.10 4.2.7.2.686 [id number] [facility] 2021-11-27 15:15:00 2021-11-27 15:30:00 Laboratory Only Only, Ang Db Test Isa Worthytyler [facility] 1.84.114 350.1.13.10 4.2.7.2.686 [id number] [facility] 2021-11-27 15:15:00 2021-11-27 15:15:00 Outpatient R EBONYKHANHSERA Koo [facility] [id number] [facility] 2021-11-23 22:04:00 2021-11-24 04:27:00 Emergency X ARIANNA WHITMORE [facility] ERT [id number] [facility] 2021-11-23 22:04:00 2021-11-24 04:27:00 Emergency Arianna Whitmore [facility] 1.84.114 350.1.13.10 4.2.7.2.686 [id number] [facility] 2021-11-21 15:30:00 2021-11-21 16:15:19 Office Visit Simi Brittany Mayra [facility] 1.84.114 350.1.13.10 4.2.7.2.686 [id number] [facility] 2021-11-21 15:30:00 2021-11-21 16:15:19 Outpatient R BRITTANY BELCHER [facility] [id number] [facility] 2021-11-21 15:30:00 2021-11-21 15:30:00 Outpatient R SIMI [facility] [id number] [facility] 2021-11-21 00:00:00 2021-11-21 00:00:00 Letter (Out) Simi Brittany Nunez [facility] 1.84.114 350.1.13.10 4.2.7.2.686 [id number] [facility] 2021-11-06 07:15:00 2021-11-07 09:35:00 Outpatient X BRITTANY BELCHER [facility] WANDA [id number] [facility] 2021-11-06 07:15:00 2021-11-07 09:35:00 Emergency Micheal Mayer Vivian L [facility] 1.84.114 350.1.13.10 4.2.7.2.686 [id number] [facility] 2021-10-04 00:00:00 2021-10-04 00:00:00 Letter (Out) Xochitl Kaur [facility] 1..114 350.1.13.10 4.2.7.2.686 [id number] [facility] 2021-10-03 17:20:00 2021-10-03 18:22:13 Outpatient R GAMALIEL GREER III [facility] [id number] [facility] 2021-09-19 00:00:00 2021-09-19 00:00:00 Patient Secure Cheikh Cummings [facility] 1.84.114 350.1.13.10 4.2.7.2.686 [id number] [facility] 2021-09-14 20:00:00 2021-09-14 20:59:00 Emergency X CIARRA FRANK [facility] ERT [id number] [facility] 2021-09-14 20:00:00 2021-09-14 20:59:00 Emergency Ciarra Frank [facility] 1..114 350.1.13.10 4.2.7.2.686 [id number] [facility] 2021-09-09 15:35:00 2021-09-09 17:06:00 Emergency X Susana DANIELS [facility] ERT [id number] [facility] 2021-09-09 15:35:00 2021-09-09 17:06:00 Emergency Susana Daniels [facility] 1.84.114 350.1.13.10 4.2.7.2.686 [id number] [facility] 2021-09-09 00:00:00 2021-09-09 00:00:00 Orders Only Doctor Unassigned, Cash [facility] 1.84.114 350.1.13.10 4.2.7.2.686 [id number] [facility] 2021-08-27 11:45:00 2021-08-27 12:00:00 Laboratory Only Only, Ang Db Shannan Solares [facility] 1.840.114 350.1.13.10 4.2.7.2.686 [id number] [facility] 2021-08-27 11:45:00 2021-08-27 11:59:56 Outpatient R SHANNAN STEWARD [facility] [id number] [facility] 2021-08-27 00:00:00 2021-08-27 00:00:00 Letter (Out) Provider, Urgent Care Day [facility] 1.840.114 350.1.13.10 4.2.7.2.686 [id number] [facility] 2021-08-19 18:20:00 2021-08-19 19:19:45 Outpatient R JOJO MINOR [facility] [id number] [facility] 2021-08-19 18:20:00 2021-08-19 18:40:00 Urgent Care Jojo Minor Amanda [facility] 1..84.114 350.1.13.10 4.2.7.2.686 [id number] [facility] 2021-08-19 00:00:00 2021-08-19 00:00:00 Orders Only Doctor Unassigned, Cash [facility] 1.114 350.1.13.10 4.2.7.2.686 [id number] [facility] 2021-08-01 10:20:00 2021-08-01 10:40:00 Urgent Care Tomasa William [facility] 1.84114 350.1.13.10 4.2.7.2.686 [id number] [facility] 2021-08-01 10:20:00 2021-08-01 10:20:00 Outpatient R SERA WORTHY [facility] [id number] [facility] 2021-06-27 09:00:00 2021-06-27 09:00:00 Outpatient R FRANNIE SMITH [facility] [id number] [facility] 2021-06-09 14:25:24 2021-06-09 14:45:24 Urgent Care Sera Worthy [facility] 1.84.114 350.1.13.10 4.2.7.2.686 [id number] [facility] 2021-06-09 14:40:00 2021-06-09 14:40:00 Outpatient R CORTEZ ISATYLER [facility] [id number] [facility] 2021-04-21 00:00:00 2021-04-21 00:00:00 Telephone Kaley Coello [facility] 1.84.114 350.1.13.10 4.2.7.2.686 [id number] [facility] 2021-04-20 11:16:01 2021-04-20 11:52:08 [facility] 1.2.840.114 350.1.13.10 4.2.7.2.686 [id number] [facility] 2021-04-20 11:20:00 2021-04-20 11:20:00 Outpatient R TOMASA WILLIAM [facility] [id number] [facility] 2021-04-19 18:56:00 2021-04-19 19:59:00 Emergency Ciarra Frank [facility] 1.2.840.114 350.1.13.10 4.2.7.2.686 [id number] [facility] 2021-04-12 15:00:00 2021-04-12 15:00:00 Outpatient CHEIKH LIZAMA [facility] [id number] [facility] 2021-03-17 20:00:00 2021-03-17 20:00:00 Outpatient TRUPTI STERLING [facility] [id number] [facility] 2021-01-30 11:15:00 2021-01-30 11:15:00 Outpatient JAN IRIZARRY [facility] [id number] [facility] 2021-01-24 08:00:00 2021-01-24 08:00:00 Outpatient FRANNIE JIMENEZ [facility] [id number] [facility] 2021-01-21 10:00:00 2021-01-21 10:00:00 Outpatient FRANNIE JIMENEZ [facility] [id number] [facility] 2021-01-17 16:00:00 2021-01-17 16:00:00 Outpatient CHEIKH LIZAMA [facility] [id number] [facility] 2021-01-15 09:20:00 2021-01-15 09:20:00 Outpatient THIERNO INTERIANO HOWARD [facility] [id number] [facility] 2020-12-25 10:40:00 2020-12-25 10:40:00 Outpatient THIERNO INTERIANO HOWARD [facility] [id number] [facility] 2020-12-20 11:20:00 2020-12-20 11:20:00 Outpatient CHEIKH LIZAMA [facility] [id number] [facility] 2020-12-18 10:00:00 2020-12-18 10:00:00 Outpatient FRANNIE JIMENEZ [facility] [id number] [facility] 2020-12-10 00:00:00 2020-12-10 00:00:00 Outpatient FRANNIE JIMENEZ [facility] [id number] [facility] 2020-12-06 15:30:00 2020-12-06 15:30:00 Outpatient JAN IRIZARRY [facility] [id number] [facility] 2020-12-04 09:45:00 2020-12-04 09:45:00 Outpatient FRANNIE JIMENEZ [facility] [id number] [facility] 2020-11-27 14:30:00 2020-11-27 14:30:00 Outpatient TORY DAVALOS [facility] [id number] [facility] 2020-11-27 09:00:00 2020-11-27 09:00:00 Outpatient JAN IRIZARRY [facility] [id number] [facility] 2020-11-22 13:20:00 2020-11-22 13:20:00 Outpatient CHEIKH LIZAMA [facility] [id number] [facility] 2020-11-15 13:30:00 2020-11-15 13:30:00 Outpatient JAN IRIZARRY [facility] [id number] [facility] 2020-11-14 16:00:00 2020-11-14 16:00:00 Outpatient KEHINDE OMRRISSEY [facility] [id number] [facility] 2020-11-08 11:00:00 2020-11-08 11:00:00 Outpatient Sona SEAN JAN [facility] [id number] [facility] 2020-10-25 00:00:00 2020-10-25 00:00:00 Patient Secure g Jan Estrada [facility] [address] 1..840.114 350.1.13.10 4.2.7.2.686 [id number] [facility] 2020-10-17 16:20:00 2020-10-17 16:20:00 Outpatient CHEIKH LIZAMA [facility] [id number] [facility] 2020-10-17 16:00:00 2020-10-17 16:00:00 Outpatient KEHINDE MORRISSEY [facility] [id number] [facility] 2020-10-15 10:00:00 2020-10-15 10:00:00 Outpatient FRANNIE JIMENEZ [facility] [id number] [facility] 2020-08-24 17:20:00 2020-08-24 17:20:00 Outpatient R [facility] [id number] [facility] 2020-08-16 00:00:00 2020-08-16 00:00:00 Patient Secure g Doctor Unassigned, Cash [facility] ..840.114 350.1.13.10 4.2.7.2.686 [id number] [facility] 2020-08-06 14:15:00 2020-08-06 14:15:00 Outpatient FRANNIE JIMENEZ [facility] [id number] [facility] 2020-07-02 10:45:00 2020-07-02 10:45:00 Outpatient FRANNIE JIMENEZ [facility] [id number] [facility] 2020-06-22 11:20:2020-06-22 11:20:00 Outpatient R CHEIKH BOYLE [facility] [id number] [facility] 2020-06-18 14:40:00 2020-06-18 14:40:00 Outpatient R RAYO VAUGHN [facility] [id number] [facility] 2020-06-15 10:00:00 2020-06-15 10:00:00 Outpatient R CHEIKH BOYLE [facility] [id number] [facility] 2020-05-18 15:40:00 2020-05-18 15:40:00 Outpatient R CHEIKH BOYLE [facility] [id number] [facility] 2020-05-14 00:00:00 2020-05-14 00:00:00 Patient Secure Msg Doctor Unassigned, Cash [facility] 1.2.840.114 350.1.13.10 4.2.7.2.686 [id number] [facility] 2020-03-20 14:00:00 2020-03-20 14:00:00 Outpatient R MARCELOIVAN KNIGHT [facility] [id number] [facility] 2020-03-13 10:40:00 2020-03-13 10:40:00 Outpatient R CHEIKH BOYLE [facility] [id number] [facility] 2020-03-02 11:00:00 2020-03-02 11:00:00 Outpatient R AGUSTO DARLING SHIWAN [facility] [id number] [facility] 2020-02-29 10:00:00 2020-02-29 10:00:00 Outpatient R CHEIKH BOYLE [facility] [id number] [facility] 2020-02-27 13:00:00 2020-02-27 13:00:00 Outpatient R CHEIKH BOYLE [facility] [id number] [facility] 2020-01-24 07:37:42 2020-01-24 12:12:00 Emergency X ARIANNA WHITMORE [facility] ERT [id number] [facility] 2020-01-11 13:00:00 2020-01-11 13:00:00 Outpatient R OROZCO NEAL [facility] [id number] [facility] 2020-01-04 14:30:00 2020-01-04 14:30:00 Outpatient R ERNESTO [facility]ALF [facility] [id number] [facility] 2020-01-03 14:00:00 2020-01-03 14:00:00 [facility] [id number] [facility] 2019-12-20 14:00:00 2019-12-20 14:00:00 Outpatient R IVAN ROBERTSON [facility] [id number] [facility] 2019-12-15 12:30:00 2019-12-15 12:30:00 Outpatient R RED CRAMER [facility] [id number] [facility] 2019-12-12 10:00:00 2019-12-12 10:00:00 Outpatient R AGUSTO DARLING SHIWAN [facility] [id number] [facility] 2019-12-09 14:20:00 2019-12-09 14:20:00 Outpatient R CHEIKH BOYLE [facility] [id number] [facility] 2019-12-02 11:40:00 2019-12-02 11:40:00 Outpatient R AGUSTO DARLING SHIWAN [facility] [id number] [facility] 2019-12-01 09:00:00 2019-12-01 09:00:00 Outpatient R ALBA VALENTINE [facility] [id number] [facility] 2019-11-29 13:00:00 2019-11-29 13:00:00 Outpatient R ALBA VALETNINE [facility] [id number] [facility] 2019-11-15 09:45:00 2019-11-15 09:45:00 Outpatient R KATHLEEN [facility]ORZCOF [facility] [id number] [facility] 2019-11-11 10:40:00 2019-11-11 10:40:00 Outpatient CHEIKH LIZAMA [facility] [id number] [facility] 2019-11-04 13:20:00 2019-11-04 13:20:00 Outpatient CHEIKH LIZAMA [facility] [id number] [facility] 2019-11-01 10:00:00 2019-11-01 10:00:00 Outpatient CHEIKH LIZAMA [facility] [id number] [facility] 2019-10-28 12:40:00 2019-10-28 12:40:00 Outpatient CHEIKH LIZAMA [facility] [id number] [facility] 2019-10-25 11:20:00 2019-10-25 11:20:00 Outpatient THIERNO INTERIANO HOWARD [facility] [id number] [facility] 2019-10-21 13:00:00 2019-10-21 13:00:00 Outpatient AGUSTO DAO SHIWAN [facility] [id number] [facility] 2019-10-19 09:50:34 2019-10-19 23:59:00 Outpatient CHEIKH LIZAMA [facility] [id number] [facility] 2019-10-17 11:34:18 2019-10-17 16:01:00 Emergency X Susana DANIELS [facility] ERT [id number] [facility] 2019-10-17 11:20:00 2019-10-17 11:20:00 Outpatient THIERNO INTERIANO HOWARD [facility] [id number] [facility] 2019-10-14 11:00:00 2019-10-14 11:00:00 Outpatient FRANNIE JIMENEZ [facility] [id number] [facility] 2019-10-12 15:40:00 2019-10-12 15:40:00 Outpatient CHEIKH LIZAMA [facility] [id number] [facility] 2019-10-11 13:30:00 2019-10-11 13:30:00 Outpatient R JAN ESTRADA [facility] [id number] [facility] 2019-10-06 15:40:00 2019-10-06 15:40:00 Outpatient R CHEIKH BOYLE [facility] [id number] [facility] 2019-08-31 14:47:13 2019-09-06 18:06:25 Office Visit Cheikh Boyle [facility] 1.2.840.114 350.1.13.10 4.2.7.2.686 [id number] [facility] 2019-09-06 13:53:00 2019-09-06 14:53:00 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 Visit Tech, Adc Cardio Fac 2, Adc Cardio Fac Room RafaelNicanor [facility] 1.2.840.114 350.1.13.10 4.2.7.2.686 [id number] [facility] 2019-09-06 08:52:38 2019-09-06 09:16:32 Office Visit Sushiljonathan Frannie [facility] 1.2.840.114 350.1.13.10 4.2.7.2.686 [id number] [facility] 2019-09-01 09:38:47 2019-09-01 16:33:00 Emergency Nii Bonilla [facility] 1.2.840.114 350.1.13.10 4.2.7.2.686 [id number] [facility] 2019-08-25 13:03:52 2019-08-25 15:25:05 Ancillary Visit Melisa Perez Craig L [facility] 1.2.840.114 350.1.13.10 4.2.7.2.686 [id number] [facility] 2019-08-25 00:00:00 2019-08-25 00:00:00 Telephone Cheikh Boyle [facility] 1.2.840.114 350.1.13.10 4.2.7.2.686 [id number] [facility] 2019-08-23 00:00:00 2019-08-23 00:00:00 Telephone Nicanor Hall [facility] 1.2.840.114 350.1.13.10 4.2.7.2.686 [id number] [facility] 2019-08-16 06:57:53 2019-08-16 09:44:00 Emergency X MICHEAL [facility] [id number] [facility] 2019-04-22 09:04:40 2019-04-22 09:52:08 Office Visit Gamaliel Johnson [facility] Office Building [facility] 1.2.840.114 350.1.13.10 4.2.7.2.686 [id number] [facility] 2019-04-22 00:00:00 2019-04-22 00:00:00 Orders Only Doctor Unassigned, Cash [facility] 1.2.840.114 350.1.13.10 4.2.7.2.686 [id number] [facility] 2019-04-11 09:18:53 2019-04-11 09:57:00 Emergency Brian Filomena J [facility] 1.2.840.114 350.1.13.10 4.2.7.2.686 [id number] [facility] 2019-04-11 00:00:00 2019-04-11 00:00:00 Orders Only Doctor Unassigned, Cash [facility] 1.2.840.114 350.1.13.10 4.2.7.2.[id number] [place] [address] Results Test Description Test Time Test Comments Results Result Co mments Source [facility] SARS-COV-2 ANTIGEN (BINAX NOW)2023-12-04 17:31:00* Test Item Value Reference Range Interpretation Comme nts POCT SARS-COV-2 ANTIGEN (test code = 37038-8) Not Detected Not Detected On board controls acceptable with C Line (test code = 3574) Yes TYRON (test code = TYRON) accurate developme nt and interpretation of all internal controls Lab Interpretation (test code = 50314-4) Normal [facility] SARS-COV-2 ANTIGEN (BINAX NOW)2023-09-15 18:43:00* Test Item Value Reference Range Interpretation Comme nts POCT SARS-COV-2 ANTIGEN (tavon t code = 42727-5) Not Detected Not Detected On board controls acceptable with C Line (test code = 3574) Yes Lab Interpretation (test cod e = 84170-0) Normal [facility] SARS-COV-2 ANTIGEN (BINAX NOW)2023-09-15 18:43:00* Test Item Value Reference Range Interpretation Comme nts POCT SARS-COV-2 ANTIGEN (tavon t code = 90097-2) Not Detected Not Detected On board controls acceptable with C Line (test code = 3574) Yes Lab Interpretation (test cod e = 84391-7) Normal [facility] SARS-COV-2 ANTIGEN (BINAX NOW)2023-09-15 18:43:00* Test Item Value Reference Range Interpretation Comme nts POCT SARS-COV-2 ANTIGEN (tavon t code = 87517-5) Not Detected Not Detected On board controls acceptable with C Line (test code = 3574) Yes Lab Interpretation (test cod e = 08208-6) [facility] (NA, K, CL, CO2, GLUCOSE, BUN, CREATININE, CA) - On Postoperative Day # 02397-12-90 11:17:22* Test Item Value Reference Range Interpretation Comme nts NA (test code = 4411757664) 138 mmol/L 135-145 K (test code = 8362739907) 4.2 mmol/L 3.5-5.0 CL (test code = 6328152040) 107 mmol/L 98-108 CO2 TOTAL (test code = 7181748663) 20 mmol/L 23-31 L AGAP (test code = 4066846037) 11 2-16 BUN (test code = 4717102374) 7 mg/dL 7-23 GLUCOSE (test code = 3510812730) 110 mg/dL 70-110 CREATININE (test code = 3945390688) 0.62 mg/dL 0.50-1.04 CALCIUM (test code = 2700235725) 9.0 mg/dL 8.6-10.6 eGFR (test code = 14538-5) 117.8 mL/min/1.73m2 CKD-EPI eGFR (2020). Assuming creatinine has been stable day-to-day for at least three months, the eGFR indicates Category G1 (>= 90 mL/min/1.73 m2) Lab Interpretation (test code = 60869-3) Abnormal [facility] Metabolic Panel (NA, K, CL, CO2, GLUCOSE, BUN, CREATININE, CA) - On Postoperative Day # 42981-58-47 11:17:22* Test Item Value Reference Range Interpretation Comme nts NA (test code = 0289905556) 138 mmol/L 135-145 K (test code = 8617708803) 4.2 mmol/L 3.5-5.0 CL (test code = 2394405333) 107 mmol/L 98-108 CO2 TOTAL (test code = 9338314103) 20 mmol/L 23-31 L AGAP (test code = 1169888871) 11 2-16 BUN (test code = 2301147410) 7 mg/dL 7-23 GLUCOSE (test code = 7659963068) 110 mg/dL 70-110 CREATININE (test code = 7115472329) 0.62 mg/dL 0.50-1.04 CALCIUM (test code = 4786759833) 9.0 mg/dL 8.6-10.6 eGFR (test code = 32533-0) 117.8 mL/min/1.73m2 CKD-EPI eGFR (2020). Assuming creatinine has been stable day-to-day for at least three months, the eGFR indicates Category G1 (>= 90 mL/min/1.73 m2) Lab Interpretation (test code = 22237-4) [facility] - On [facility] Day # 88952-40-91 10:49:19* Test Item Value Reference Range Interpretation [...] 34.0 g/dL 31.6-35.1 RDW-SD (test code = 14233-4) 38.8 fL 39.0-49.9 L RDW-CV (test code = 788-0) 12.0 % 12.0-15.5 PLT (test code = 777-3) 339 See_Comment [Automated messa ge] The system which generated this result transmitted reference range: 166 - 358 10*3/?L. The reference range was not used to interpret this result as normal/abnormal. MPV (test code = 16679-3) 9.0 fL 9.5-12.9 L NRBC/100 WBC (test code = 4056243150) 0.0 See_Comment [Automated [employer] ssage] The system which generated this result transmitted reference range: 0.0 - 10.0 /100 WBCs. The reference range was not used to interpret this result as normal/abnormal. NRBC x10^3 (test code = 0005747721) See_Comment [Automated messa ge] The system which generated this result transmitted reference range: 10*3/?L. The reference range was not used to interpret this result as normal/abnormal. GRAN MAT (NEUT) % (test code = 770-8) 82.7 % IMM GRAN % (test code = 9346133596) 0.30 % LYMPH % (test code = 736-9) 11.4 % MONO % (test code = 5905-5) 5.4 % EOS % (test code = 713-8) 0.0 % BASO % (test code = 706-2) 0.2 % GRAN MAT x10^3(ANC) (test code = 5812347046) 9.84 10*3/uL 1.88-7.09 H IMM GRAN x10^3 (test code = 0561418742) 0.04 10*3/uL 0.00-0.06 LYMPH x10^3 (test code = 731-0) 1.36 10*3/uL 1.32-3.29 MONO x10^3 (test code = 742-7) 0.64 10*3/uL 0.33-0.92 EOS x10^3 (test code = 711-2) 0.03-0.39 L BASO x10^3 (test code = 704-7) 0.01-0.07 Lab Interpretation (test code = 23192-9) Abnormal [facility] with Differential - On Postoperative Day # 35313-08-57 10:49:19* Test Item Value Reference Range Interpretation [...] 34.0 g/dL 31.6-35.1 RDW-SD (test code = 00361-0) 38.8 fL 39.0-49.9 L RDW-CV (test code = 788-0) 12.0 % 12.0-15.5 PLT (test code = 777-3) 339 See_Comment [Automated [employer]] The system which generated this result transmitted reference range: 166 - 358 10*3/?L. The reference range was not used to interpret this result as normal/abnormal. MPV (test code = 79447-8) 9.0 fL 9.5-12.9 L NRBC/100 WBC (test code = 4579877974) 0.0 See_Comment [Automated [employer] ssage] The system which generated this result transmitted reference range: 0.0 - 10.0 /100 WBCs. The reference range was not used to interpret this result as normal/abnormal. NRBC x10^3 (test code = 6165273593) See_Comment [Automated [employer]] The system which generated this result transmitted reference range: 10*3/?L. The reference range was not used to interpret this result as normal/abnormal. GRAN MAT (NEUT) % (test code = 770-8) 82.7 % IMM GRAN % (test code = 2101022197) 0.30 % LYMPH % (test code = 736-9) 11.4 % MONO % (test code = 5905-5) 5.4 % EOS % (test code = 713-8) 0.0 % BASO % (test code = 706-2) 0.2 % GRAN MAT x10^3(ANC) (test code = 6508500597) 9.84 10*3/uL 1.88-7.09 H IMM GRAN x10^3 (test code = 5337932586) 0.04 10*3/uL 0.00-0.06 LYMPH x10^3 (test code = 731-0) 1.36 10*3/uL 1.32-3.29 MONO x10^3 (test code = 742-7) 0.64 10*3/uL 0.33-0.92 EOS x10^3 (test code = 711-2) 0.03-0.39 L BASO x10^3 (test code = 704-7) 0.01-0.07 Lab Interpretation (test code = 33208-2) [facility], [id number] 16:26:01BETA HCG<2.39Non- female and male patients: <5 mIU/mL09/01/2023 10:26 AM [facility] Gestational Age ?Range (mIU/mL) 1-10 ?Weeks ?25-03467395-06 Weeks ?77070-00349052-32 Weeks ?9889-72184127-99 Weeks ?1531-800895 Biotin has been reported to cause a negative bias, interpret resultsrelative to patient's use of biotin.[facility] HCG, QUANTITATIVE, [id number] 16:26:01BETA HCG<2.39Non- female and male patients: <5 mIU/mL09/01/2023 10:26 AM [facility] Gestational Age ?Range (mIU/mL) 1-10 ?Weeks ?26-62267026-03 Weeks ?16998-16857485-26 Weeks ?6510-68381753-74 Weeks ?1531-420398 Biotin has been reported to cause a negative bias, interpret resultsrelative to patient's use of biotin. [facility] [id number] 23:24:46* Test Item Value Reference Range Interpretation Comme nts WBC (test code = 6690-2) 7.16 See_Comment [Automated [employer]] The system which generated this result transmitted reference range: 4.30 - 11.10 10*3/?L. The reference range was not used to interpret this result as normal/abnormal. RBC (test code = 789-8) 4.43 See_Comment [Automated messa ge] The system which [...] 34.3 g/dL 31.6-35.1 RDW-SD (test code = 83339-5) 38.7 fL 39.0-49.9 L RDW-CV (test code = 788-0) 12.0 % 12.0-15.5 PLT (test code = 777-3) 343 See_Comment [Automated messa ge] The system which generated this result transmitted reference range: 166 - 358 10*3/?L. The reference range was not used to interpret this result as normal/abnormal. MPV (test code = 17098-4) 8.8 fL 9.5-12.9 L NRBC/100 WBC (test code = 7225532421) 0.0 See_Comment [Automated [employer] ssage] The system which generated this result transmitted reference range: 0.0 - 10.0 /100 WBCs. The reference range was not used to interpret this result as normal/abnormal. NRBC x10^3 (test code = 6092494636) See_Comment [Automated messa ge] The system which generated this result transmitted reference range: 10*3/?L. The reference range was not used to interpret this result as normal/abnormal. GRAN MAT (NEUT) % (test code = 770-8) 43.2 % IMM GRAN % (test code = 4716921289) 0.00 % LYMPH % (test code = 736-9) 47.6 % MONO % (test code = 5905-5) 6.8 % EOS % (test code = 713-8) 2.0 % BASO % (test code = 706-2) 0.4 % GRAN MAT x10^3(ANC) (test code = 5163545442) 3.09 10*3/uL 1.88-7.09 IMM GRAN x10^3 (test code = 4723187628) 0.00-0.06 LYMPH x10^3 (test code = 731-0) 3.41 10*3/uL 1.32-3.29 H MONO x10^3 (test code = 742-7) 0.49 10*3/uL 0.33-0.92 EOS x10^3 (test code = 711-2) 0.14 10*3/uL 0.03-0.39 BASO x10^3 (test code = 704-7) 0.03 10*3/uL 0.01-0.07 Lab Interpretation (test code = 77593-0) Abnormal [facility] [id number] 21:21:00* Test Item Value Reference Range Interpretation Comme nts POCT PREG (test code = 1605) Negative On board controls acceptable with C Line (test code = 3574) Yes POCT PREG LOT # (test code = 3575) POCT PREG TEST DATE ( test code = 3576) [facility] [id number] 21:21:00* Test Item Value Reference Range Interpretation Comme nts POCT PREG (test code = 1605) Negative On board controls acceptable with C Line (test code = 3574) Yes POCT PREG LOT # (test code = 3575) POCT PREG TEST DATE ( test code = 3576) [facility] PELVIS COMPLETE WITH [id number] 17:16:52EXAM: US PELVIS COMPLETE WITH TRANSVAGINAL HISTORY: 38 years-old Female presenting for AUB LMP = 06/08/2023 TECHNIQUE: Transabdominal and transvaginal ultrasound imaging and colorDoppler evaluation of the pelvis was performed. [employer] Operator images wereobtained for the record. COMPARISON: Ultrasound [...] Cul-de-sac: Small amount of free fluid is present.[facility] Test 2023-07-23 14:27:00* Test Item Value Reference Range Interpretation Comme [facility] POCT PREG (test code = 1605) Negative On board controls acceptable with C Line (test code = 3574) Yes POCT PREG LOT # (test code = 3575) POCT PREG TEST DATE ( test code = 3576) [facility] [id number] 14:27:00* Test Item Value Reference Range Interpretation Comme [facility] POCT PREG (test code = 1605) Negative On board controls acceptable with C Line (test code = 3574) Yes POCT PREG LOT # (test code = 3575) POCT PREG TEST DATE ( test code = 3576) [facility] MOLECULAR [id number] 22:04:53* Test Item Value Reference Range Interpretation Comme [facility] POCT Molecular Strep (test c ode = 64280-7) Negative Negative Lab Interpretation (test cod e = 74487-6) [id number]* Test Item Value Reference Range Interpretation Comments D-DIMER (test code = 7438353671) See_Comment [Automated message] The system which generated [...] a diagnosis. Lab Interpretation (test code = 50779-9) [facility] [id number] 06:32:18* Test Item Value Reference Range Interpretation Comme nts TROPONIN I (test code = 8704391063) 0.004 ng/mL <=0.034 TYRON (test code = [...] of biotin. Lab Interpretation (test code = 12606-2) [facility]22[facility]17* Test Item Value Reference Range Interpretation Comme nts LIPASE (test code = 0944238052) 105 U/L 0-220 Lab Interpretation (test cod e = 45938-4) [facility]OLIC PAN[facility] (72910)2023-06-29 06:22:12* Test Item Value Reference Range Interpretation Comme nts NA (test code = 3367517882) 140 mmol/L 135-145 K (test code = 9986019484) 4.1 mmol/L 3.5-5.0 CL (test code = 3899018964) 104 mmol/L 98-108 CO2 TOTAL (test code = 2411695408) 29 mmol/L 23-31 AGAP (test code = 7029845289) 7 2-16 BUN (test code = 6360275588) 10 mg/dL 7-23 GLUCOSE (test code = 3697294941) 102 mg/dL 70-110 CREATININE (test code = 0157697579) 0.70 mg/dL 0.50-1.04 TOTAL BILI (test code = 2837411569) 0.4 mg/dL 0.1-1.1 CALCIUM (test code = 3505212184) 9.3 mg/dL 8.6-10.6 T PROTEIN (test code = 6392501371) 8.4 g/dL 6.3-8.2 H ALBUMIN (test code = 5947544140) 4.3 g/dL 3.5-5.0 ALK PHOS (test code = 4669144143) 82 U/L 34-122 ALTv (test code = 1742-6) 26 U/L 5-35 AST(SGOT) (test code = 1873940351) 27 U/L 13-40 eGFR (test code = 65947-5) 114.4 mL/min/1.73m2 CKD-EPI eGFR (2020). Assuming creatinine has been stable day-to-day for at least three months, the eGFR indicates Category G1 (>= 90 mL/min/1.73 m2) Lab Interpretation (test code = 87449-3) Abnormal [facility] WITH [id number] 06:07:18* Test Item Value Reference Range Interpretation Comme nts WBC (test code = 6690-2) 6.82 See_Comment [Automated [employer]] The system which generated this result transmitted reference range: 4.30 - 11.10 10*3/?L. The reference range was not used to interpret this result as normal/abnormal. RBC (test code = 789-8) 4.39 See_Comment [Automated [employer]] The system which generated this result transmitted [...] 34.8 g/dL 31.6-35.1 RDW-SD (test code = 89504-8) 38.2 fL 39.0-49.9 L RDW-CV (test code = 788-0) 11.8 % 12.0-15.5 L PLT (test code = 777-3) 353 See_Comment [Automated messa ge] The system which generated this result transmitted reference range: 166 - 358 10*3/?L. The reference range was not used to interpret this result as normal/abnormal. MPV (test code = 12771-5) 9.0 fL 9.5-12.9 L NRBC/100 WBC (test code = 7308375388) 0.0 See_Comment [Automated [employer] ssage] The system which generated this result transmitted reference range: 0.0 - 10.0 /100 WBCs. The reference range was not used to interpret this result as normal/abnormal. NRBC x10^3 (test code = 8829321148) See_Comment [Automated messa ge] The system which generated this result transmitted reference range: 10*3/?L. The reference range was not used to interpret this result as normal/abnormal. GRAN MAT (NEUT) % (test code = 770-8) 35.0 % IMM GRAN % (test code = 2908405913) 0.30 % LYMPH % (test code = 736-9) 53.8 % MONO % (test code = 5905-5) 7.6 % EOS % (test code = 713-8) 2.9 % BASO % (test code = 706-2) 0.4 % GRAN MAT x10^3(ANC) (test code = 1237068311) 2.38 10*3/uL 1.88-7.09 IMM GRAN x10^3 (test code = 1112725858) 0.00-0.06 LYMPH x10^3 (test code = 731-0) 3.67 10*3/uL 1.32-3.29 H MONO x10^3 (test code = 742-7) 0.52 10*3/uL 0.33-0.92 EOS x10^3 (test code = 711-2) 0.20 10*3/uL 0.03-0.39 BASO x10^3 (test code = 704-7) 0.03 10*3/uL 0.01-0.07 Lab Interpretation (test code = 26578-0) Ab[facility] MOLECULAR [id number] 21:21:49* Test Item Value Reference Range Interpretation Comme nts POCT Molecular FluA (test co de = 27935-8) Negative Negative POCT Molecular FluB (test co de = 44618-4) Negative Negative Lab Interpretation (test cod e = 64452-1) [facility] SARS-COV-2 ANTIGEN (BINAX NOW)2023-05-22 21:02:00* Test Item Value Reference Range Interpretation Comme [facility] POCT SARS-COV-2 ANTIGEN (test code = 97768-3) Not Detected Not Detected On board controls acceptable with C Line (test code = 3574) Yes TYRON (test code = TYRON) accurate developme nt and interpretation of all internal controls Lab Interpretation (test code = 58270-4) [facility] (TTE)2023-05-16 01:27:12* Test Item Value Reference Range Interpretation Comme nts Height (test code = 8308252399) 66 in Weight (test code = 5358882152) 255 lbs Systolic BP (test code = 3389648693) 117 mmHg Diastolic BP (test code = 2771643052) 71 mmHg Heart Rate (test code = 8216384627) 93 bpm Ao root diam (test code = 5292898576) 2.80 cm Aortic root (test code = 1252680741) 2.8 cm Ao root annulus (test code = 9244211137) 2.8 cm BSA (test code = 3096150002) 2.22 m2 LVOT diameter (test code = 2682700345) 2.23 cm LVOT area (test code = 7366115185) 3.90 cm2 LA size (test code = 7044663807) 3.1 cm ACS (test code = 6158193394) 2.25 cm LVIDD (test code = 1502274085) 4.20 cm Left Ventricular End Diastolic Volume by Teichholz Method (test code = 1920442) 78.5 mL IVS (test code = 8290011686) 0.86 cm Interventricular Septum Diastolic Thickness by 2D (test code = 9622611) 0.86 cm LVPWD (test code = 0015898937) 0.77 cm PW (test code = 0207174401) 0.77 cm 0.6-1.1 EF(Teich) (test code = 7165443708) 60.00 % LVIDS (test code = 3781517728) 2.90 cm Left Ventricular End Systolic Volume by Teichholz Method (test code = 4170715) 31.4 mL FS (test code = 7747208078) 32 % EF - 2D (test code = 84149439) 60.00 % TR Peak Darek (test code = 7502548927) 275.9 cm/s Triscuspid Valve Regurgitation Peak Gradient (test code = 3472377777) 30.5 mmHg PV PEAK VELOCITY (test code = 6164077618) 104.3 cm/s PV peak gradient (test code = 2431696539) 4.4 mmHg LAV(MOD-sp4) (test code = 1560177436) 28.30 mL MV E-F slope (test code = 1219753426) 47.10 cm/s MV Peak E Darek (test code = 4324506266) 59.7 cm/s MV Peak A Darek (test code = 6446261310) 65.0 cm/s E/A ratio (test code = 2764979761) 0.92 ratio MV valve area p 1/2 method (test code = 8426478128) 4.20 cm2 MV dec slope (test code = 8519047483) 338.50 cm/s2 MV P1/2t max darek (test code = 4240840225) 60.30 cm/s MR max PG (test code = 3415081937) 58.70 mm[Hg] MR max darek (test code = 4893407438) 383.00 cm/s Mr max darek (test code = 9336547654) 383.0 m/s LVOT stroke volume (test code = 2504662333) 79.00 cm3 LVOT peak darek (test code = 0648443657) 128.4 cm/s LVOT mn grad (test code = 3136744804) 2.8 mmHg AV LVOT peak gradient (test code = 4926478449) 6.6 mmHg LVOT peak VTI (test code = 2022666316) 20.2 cm LV V1 mean (test code = 7949426107) 75.70 cm/s Aortic valve mean velocity (test code = 2261688169) 94.9 cm/s Ao peak darek (test code = 9205088329) 158.0 cm/s Ao VTI (test code = 0550007776) 25.8 cm AV area by cont VTI (test code = 1811917354) 3.1 cm2 AV area peak darek (test code = 1803827582) 3.2 cm2 Ao max PG (test code = 3637084369) 10.00 mm[Hg] AV peak gradient (test code = 5180167499) 10.0 mmHg AV valve area (test code = 3863158691) 3.10 cm2 AV mean gradient (test code = 4638714578) 4.3 mmHg LA Volume Index (BP) (test code = 1229719612) 15.3 mL/m2 LA volume (BP) (test code = 7987209554) 33.9 mL LAV(MOD-sp2) (test code = 2948896818) 39.70 mL Radiology Study observation (narrative) (test code = 46142-5) TYRON (test code = TYRON) ?Left?Ventricle: Left [...] 2D, color flow Doppler and spectral Doppler. [facility] SARS-COV-2 ANTIGEN (BINAX NOW)2023-04-03 20:55:00* Test Item Value Reference Range Interpretation Comme [facility] POCT SARS-COV-2 ANTIGEN (test code = 26774-5) Not Detected Not Detected On board controls acceptable with C Line (test code = 3574) Yes TYRON (test code = TYRON) accurate developme nt and interpretation of all internal controls Lab Interpretation (test code = 56492-0) [facility] SARS-COV-2 ANTIGEN (BINAX NOW)2023-03-20 21:30:00* Test Item Value Reference Range Interpretation Comme [facility] POCT SARS-COV-2 ANTIGEN (tavon t code = 46502-6) Not Detected Not Detected On board controls acceptable with C Line (test code = 3574) Yes Lab Interpretation (test cod e = 12333-0) [facility] [id number] 20:54:00* Test Item Value Reference Range Interpretation Comme nts POCT PREG (test code = 1605) Negative On board controls acceptable with C Line (test code = 3574) Yes POCT PREG LOT # (test code = 3575) POCT PREG TEST DATE ( test code = 3576) [facility], [id number] 01:04:20* Test Item Value Reference Range Interpretation Comme nts PREG SERUM (test code = 8006846922) Negative TYRON (test code = TYRON) Less than 10 IU/L. ?If low titer or ectopic is suspected, resubmit specimen in 48-72 hours. [facility]. METABOLIC PANEL (92253)2022-02-18 00:59:51* Test Item Value Reference Range Interpretation Comme nts NA (test code = 0218030093) 139 mmol/L 135-145 K (test code = 2490680458) 4.2 mmol/L 3.5-5 CL (test code = 9408789918) 104 mmol/L 98-108 CO2 TOTAL (test code = 1690868225) 27 mmol/L 23-31 AGAP (test code = 1726562564) 2-16 BUN (test code = 9274278757) 9 mg/dL 7-23 GLUCOSE (test code = 7138267243) 95 mg/dL 70-110 CREATININE (test code = 9033430702) 0.78 mg/dL 0.5-1.04 TOTAL BILI (test code = 9996094128) 0.5 mg/dL 0.1-1.1 CALCIUM (test code = 3544406004) 9.2 mg/dL 8.6-10.6 T PROTEIN (test code = 3749942912) 7.6 g/dL 6.3-8.2 ALBUMIN (test code = 4747312771) 4.5 g/dL 3.5-5 ALK PHOS (test code = 4907491099) 65 U/L 34-122 ALTv (test code = 1742-6) 22 U/L 5-35 AST(SGOT) (test code = 1084881999) 23 U/L 13-40 eGFR (test code = 9161138824) mL/min/1.73m2 TYRON (test code = TYRON) Association [...] or urine or abnormalities in imaging tests). [facility] WITH [id number] 00:41:49* Test Item Value Reference Range Interpretation Comme nts WBC (test code = 6690-2) See_Comment [Automated [employer]] The system which generated this result transmitted reference range: 4.30 - 11.10 10*3/?L. The reference range was not used to interpret this result as normal/abnormal. RBC (test code = 789-8) See_Comment [Automated [employer]] The system which generated this result [...] 33.6 g/dL 31.6-35.1 RDW-SD (test code = 87904-0) 40.7 fL 39-49.9 RDW-CV (test code = 788-0) 12.2 % 12-15.5 PLT (test code = 777-3) See_Comment [Automated [employer]] The system which generated this result transmitted reference range: 166 - 358 10*3/?L. The reference range was not used to interpret this result as normal/abnormal. MPV (test code = 95881-1) 9.6 fL 9.5-12.9 NRBC/100 WBC (test code = 7721594250) See_Comment [Automated [employer] ssage] The system which generated this result transmitted reference range: 0.0 - 10.0 /100 WBCs. The reference range was not used to interpret this result as normal/abnormal. NRBC x10^3 (test code = 7735824873) See_Comment [Automated me ssage] The system which generated this result transmitted reference range: 10*3/?L. The reference range was not used to interpret this result as normal/abnormal. GRAN MAT (NEUT) % (test code = 770-8) 37.5 % IMM GRAN % (test code = 4864575648) 0.20 % LYMPH % (test code = 736-9) 50.8 % MONO % (test code = 5905-5) 8.7 % EOS % (test code = 713-8) 2.1 % BASO % (test code = 706-2) 0.7 % GRAN MAT x10^3(ANC) (test code = 9242975729) 2.10 10*3/uL 1.88-7.09 IMM GRAN x10^3 (test code = 9627906650) 0-0.06 LYMPH x10^3 (test code = 731-0) 2.85 10*3/uL 1.32-3.29 MONO x10^3 (test code = 742-7) 0.49 10*3/uL 0.33-0.92 EOS x10^3 (test code = 711-2) 0.12 10*3/uL 0.03-0.39 BASO x10^3 (test code = 704-7) 0.04 10*3/uL 0.01-0.07 [facility] [id number] 00:22:00* Test Item Value Reference Range Interpretation Comme nts POCT PREG (test code = 1605) negative Lab Interpretation (test cod e = 53289-1) [facility] Metabolic [id number] 03:45:37* Test Item Value Reference Range Interpretation Comme nts NA (test code = 7661483229) 140 mmol/L 135-145 K (test code = 7765302210) 3.8 mmol/L 3.5-5.0 CL (test code = 4682167101) 104 mmol/L 98-108 CO2 TOTAL (test code = 2623605814) 24 mmol/L 23-31 AGAP (test code = 0896768134) 2-16 BUN (test code = 2109480202) 12 mg/dL 7-23 GLUCOSE (test code = 1968072479) 94 mg/dL 70-110 CREATININE (test code = 4638165329) 0.92 mg/dL 0.50-1.04 TOTAL BILI (test code = 1876236489) 1.0 mg/dL 0.1-1.1 CALCIUM (test code = 4797671425) 8.9 mg/dL 8.6-10.6 T PROTEIN (test code = 2452193477) 8.1 g/dL 6.3-8.2 ALBUMIN (test code = 2836388684) 4.8 g/dL 3.5-5.0 ALK PHOS (test code = 3863618957) 68 U/L 34-122 ALTv (test code = 1742-6) 19 U/L 5-35 AST(SGOT) (test code = 8852190429) 32 U/L 13-40 eGFR (test code = 6873636227) mL/min/1.73m2 TYRON (test code = TYRON) Association [...] or urine or abnormalities in imaging tests). [facility]Lipase, [id number] 03:44:57* Test Item Value Reference Range Interpretation Comme nts LIPASE (test code = 7126237266) 64 U/L 0-220 Lab Interpretation (test cod e = 02320-7) [facility] with [id number] 03:36:15* Test Item Value Reference Range Interpretation Comme nts WBC (test code = 6690-2) See_Comment [Automated [employer]] The system which generated this result transmitted reference range: 4.30 - 11.10 10*3/?L. The reference range was not used to interpret this result as normal/abnormal. RBC (test code = 789-8) See_Comment [Automated [employer]] The system which generated this result transmitted [...] 33.9 g/dL 31.6-35.1 RDW-SD (test code = 20931-9) 39.5 fL 39.0-49.9 RDW-CV (test code = 788-0) 11.7 % 12.0-15.5 L PLT (test code = 777-3) See_Comment [Automated [employer]] The system which generated this result transmitted reference range: 166 - 358 10*3/?L. The reference range was not used to interpret this result as normal/abnormal. MPV (test code = 14913-5) 9.2 fL 9.5-12.9 L NRBC/100 WBC (test code = 1249260681) See_Comment [Automated me ssage] The system which generated this result transmitted reference range: 0.0 - 10.0 /100 WBCs. The reference range was not used to interpret this result as normal/abnormal. NRBC x10^3 (test code = 6787347346) <0.01 See_Comment [Automated messa ge] The system which generated this result transmitted reference range: 10*3/?L. The reference range was not used to interpret this result as normal/abnormal. GRAN MAT (NEUT) % (test code = 770-8) 42.4 % IMM GRAN % (test code = 7079385957) 0.80 % LYMPH % (test code = 736-9) 45.8 % MONO % (test code = 5905-5) 9.7 % EOS % (test code = 713-8) 0.5 % BASO % (test code = 706-2) 0.8 % GRAN MAT x10^3(ANC) (test code = 9201623178) 2.62 10*3/uL 1.88-7.09 IMM GRAN x10^3 (test code = 7897231704) 0.05 10*3/uL 0.00-0.06 LYMPH x10^3 (test code = 731-0) 2.83 10*3/uL 1.32-3.29 MONO x10^3 (test code = 742-7) 0.60 10*3/uL 0.33-0.92 EOS x10^3 (test code = 711-2) 0.03 10*3/uL 0.03-0.39 BASO x10^3 (test code = 704-7) 0.05 10*3/uL 0.01-0.07 Lab Interpretation (test code = 82237-6) [facility] [id number] 03:18:00* Test Item Value Reference Range Interpretation Comme nts POCT PREG (test code = 1605) negative On board controls acceptable with C Line (test code = 3574) positive POCT PREG LOT # (test code = 3575) [id number] POCT PREG TEST DATE ( test code = 3576) 05-09-2023 Lab Interpretation (test cod e = 77549-8) [facility] History and Physical Notes Date/Time Note Provider Source 2023-09-02 15:53:33 I have seen and examined patient. Denies interval changes. Patient Vitals for the past 24 hrs: BP Temp Temp src Pulse Resp SpO2 09/02/23 1333 (!) 122/92 36.7 ?C (98.1 ?F) TEMPORAL ART 81 21 100 % NAD RRR Breathing unlabored Soft, NTTP, no rash No edema A/P: Will proceed with TLH/BS/Cysto as planned. Accompanied by her Andrew atkins. All questions answered. Jarrod Mercado MD 09/02/2023 3:54 PM STRY SEGMENT SPECIALIST Source Note - Jarrod Mercado MD - 08/13/2023 2:00 PM INDUSTRY SEGMENT SPECIALIST Chief Complaint Patient presents with Pre-op Clearance HPI: Virgie Frausto is a 38 year old female here for pre-op. Patient desires definitive management with hysterectomy for abnormal uterine bleeding. Past Medical History: Diagnosis Date Acute URI 08/31/2019 Anxiety 07/25/2019 Bipolar 1 disorder Bronchitis 08/31/2019 Congenital heart disease with intracardiac shunting Constipation, unspecified constipation type 08/17/2019 Current moderate episode of major depressive disorder, unspecified whether recurrent 07/25/2019 Cutaneous abscess of groin 07/25/2019 Cysts of both ovaries 08/17/2019 Depression Disequilibrium Dizziness 05/26/2019 Hep C w/o coma, chronic age 19-20 10/19/19 Liver bx - Angelica fibrosis score 1/6 Hidradenitis 07/25/2019 IVDU (intravenous drug user) 07/25/2019 Lower abdominal pain 08/31/2019 Morbid obesity with body mass index of 40.0-49.9 05/26/2019 Non-intractable vomiting with nausea, unspecified vomiting type 07/25/2019 Peripheral vertigo involving left ear Primary insomnia 08/12/2019 Pulmonary hypertension Right ventricular dilation Schizophrenia with prominent negative symptoms 07/25/2019 Substernal chest pain 08/31/2019 Tobacco dependence 07/25/2019 Yeast infection 07/25/2019 Past Surgical History: Procedure Laterality Date SECTION TUBAL LIGATION OB History Para Term AB Living 3 3 3 2 SAB IAB Ectopic Multiple Live Births 2 # Outcome Date GA Lbr Jose/2nd Weight Sex Delivery Anes PTL Lv 3 Term 03/03/08 , L 2 Term 03/30/07 M , L ND 1 Term 08/07/05 , L KALLIE Complications: Dysfunctional Labor, Failure to Progress in First Stage Obstetric Comments 1 , at 3 months of age- 15 years ago No Known Allergies Patient's Medications START taking these medications No medications on file CONTINUE taking these medications which have NOT CHANGED ALBUTEROL 2.5 MG /3 ML (0.083 %) NEBULIZER SOLUTION Inhale 3 mL every 4 (four) hours as needed for Wheezing or Shortness of Breath. ALBUTEROL 90 MCG/ACTUATION INHALER Inhale 2 Puffs every 4 (four) hours as needed for Wheezing or Shortness of Breath. ARIPIPRAZOLE (ABILIFY) 5 MG TABLET Take 1 tablet by mouth in the morning. BUPROPION SR (WELLBUTRIN SR) 150 MG SR TABLET Take 1 tablet by mouth in the morning and 1 tablet in the evening. DICYCLOMINE 20 MG TABLET Take 1 tablet by mouth every 6 (six) hours as needed for Abdominal pain. DOXEPIN 100 MG CAPSULE Take 1 capsule by mouth at bedtime. DULOXETINE 20 MG CAPSULE Take 1 capsule by mouth in the morning and 1 capsule in the evening. GLECAPREVIR-PIBRENTASVIR 100-40 MG Take 3 tablets by mouth in the morning. IPRATROPIUM 0.02 % NEBULIZER SOLUTION Inhale 2.5 mL every 8 (eight) hours as needed for Wheezing or Shortness of Breath. LACTULOSE 10 GRAM/15 ML ORAL SOLUTION Take 30 mL by mouth 3 (three) times daily as needed for Constipation or For bowel movement. ONDANSETRON (ZOFRAN) 4 MG TABLET Take 1 tablet by mouth every 8 (eight) hours as needed for Nausea and Vomiting (N/V). TOPIRAMATE 50 MG TABLET Take 1 tablet by mouth in the morning and 1 tablet in the evening. TRETINOIN 0.075 % CREA Apply 1 g to area(s) at bedtime. TRIAMCINOLONE ACETONIDE 0.1 % CREAM Apply to area(s) 2 (two) times daily. VALACYCLOVIR 1 GRAM TABLET Take 1 tablet by mouth in the morning. 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 Tobacco Use Smoking status: Every Day Packs/day: 0.50 Years: 20.00 Additional pack years: 0.00 Total pack years: 10.00 Types: Cigarettes Passive exposure: Past Smokeless tobacco: Never Tobacco comments: Stopped vaping ~1 yr ago Vaping Use Vaping Use: Former Substance and Sexual Activity Alcohol use: Yes Comment: every weekend Drug use: No Sexual activity: Yes control/protection: Surgical Comment: tubal ligation Social History Narrative 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 HENT: Negative for congestion, rhinorrhea, sneezing and sore throat. Respiratory: Negative for cough, chest tightness, shortness of breath and wheezing. Cardiovascular: Negative for chest pain and palpitations. Gastrointestinal: Negative for abdominal distention, abdominal pain, anal bleeding, blood in stool, constipation, diarrhea, nausea and vomiting. Genitourinary: Negative for dysuria, urgency, frequency, vaginal bleeding and vaginal discharge. Musculoskeletal: Negative for gait problem. Skin: Negative for rash. Neurological: Negative for syncope, light-headedness and headaches. Psychiatric/Behavioral: Negative for dysphoric mood, self-injury and suicidal ideas. Hematological: Does not bruise/bleed easily. BP: (131)/(75) Temp: [36.9 ?C (98.5 ?F)] Temp source: Oral (08/13 1458) Pulse: [81] Resp: [18] SpO2: -- Height: [5' 5" (165.1 cm)] Weight: [269 lb (122 kg)] BMI (calculated): [44.76] Physical Exam Vitals reviewed. Constitutional: She is oriented to person, place, and time. Her body habitus is normal. Cardiovascular: Regular rate and rhythm. Pulmonary/Chest: Breath sounds clear to auscultation. Normal inspiratory effort. Abdominal: Abdomen is soft. No tenderness present. No hernia palpated or inspected. Neuro/Psychiatric: She has a normal mood and affect. She is oriented to person, place, and time. A/P: Preop examination (primary encounter diagnosis) - We reviewed hysterectomy, modes, types and the [...] op expectations/hospital stay was reviewed and consents signed I counseled the patient regarding removal of her [...] to keep her ovaries unless clinically indicated otherwise. I discussed that some research has suggested that ovarian cancer may arise from the fallopian tubes. We discussed removal of her fallopian tubes and she agrees to bilateral salpingectomy if they are easily accessible. Denies hx of abnormal Pap smear. Pap and HPV negative on 07/30/2023 Benign endometrial biopsy on 07/30/2023 CONSULT/REFERRAL CARDIOLOGY, CONSULT/REFERRAL INTERNAL MEDICINE Follow-up 2 wks post op Jarrod Mercado MD 08/13/2023 2:37 PM [facility] Procedure Notes Date/Time Note Provider Source 2023-09-02 18:30:29 Procedure(s): LAPAROSCOPIC TOTAL ABDOMINAL HYSTERECTOMY; LAPAROSCOPIC SALPINGECTOMY; CYSTOSCOPY Pre-Procedure Diagnose(s): Abnormal uterine bleeding Post-Procedure Diagnose(s): Abnormal uterine bleeding; Status post hysterectomy; Status post bilateral salpingectomy; Status post cystoscopy TOTAL LAPAROSCOPIC HYSTERECTOMY Procedure: Total Laparoscopic Hysterectomy, bilateral salpingectomy, and cystoscopy Date of Service: 09/02/2023 Faculty Surgeon: Jarrod Mercado MD Disability Aide Surgeon: Jonathon Braun MD (no qualified resident available) Anesthesia Type: General IV Fluids: 1000 cc Colloid Fluids: none Specimens Sent to Pathology: Uterus with cervix and Bilateral Fallopian tubes Urine Output: 400 cc of orange urine (patient received pyridium) Complications: none Estimated Blood Loss: 200 mL Patient Status: Patient in stable condition and taken to recovery room Narratives: Virgie Frausto is a 38 year old female with abnormal uterine bleeding desiring definitive management with hysterectomy. Risks/benefits discussed and patient desired to proceed with surgery. Description of Findings: Uterus appeared normal, normal appearing ovary and fallopian tube, normal liver edge and stomach edge, no bleeding or injury at trocar sites noted. Filmy adhesions from the liver to the anterior abdominal wall noted. Omental adhesions noted to the anterior abdominal wall near umbilicus. Summary of Procedure: After informed written consent was given, for the above procedure for above indications, the patient was taken to the operating room and general endotracheal anesthesia induced. Patient was placed in the dorsal lithotomy position, and prepped and draped. Uterine manipulator and frank were placed. A half inch incision was made in the [...] the pelvis then ensued with findings as above. Using the ligasure, bilateral salpingectomy was performed. The uterine ovarian ligament was ligated and transected. Using the ligasure scalpel isolating the round ligament on either side were transected. As the bladder reflection was encountered it was brought down by sharp and blunt dissection using the laparoscopic instruments. The vagina was then entered by incising around the uterine manipulator device. Specimen was delivered through the vagina. The vaginal cuff was then closed with V-lock from both angles with imbrication. Myesha powder placed at the surgical site. Area inspected, good homeostasis achieved. Attention was then turned towards the cystoscopy. The patient received an IV dose of Fluorescein and her frank catheter was removed. A 5mm 70-degree cystoscope was then placed into the bladder with normal bladder mucosa seen, no evidence of surgical injury and bilateral ureteral jets noted. The cystoscope was removed. The bladder was drained prior to leaving OR. Attention was turned to pelvis: Area inspected, good homeostasis achieved. CO2 was allowed to egress through the trocar sites, the skin incision sites were closed with: 4-0 monocryl suture and dermabond. Patient's sponge and needle counts were correct times 2. Urine was draining clear. Patient tolerated the procedure well and was awakened and taken to the PAC-U in stable condition. Jarrod Mercado MD 09/02/2023 6:32 PM [facility] Notes Date/Time Note Provider Source 2024-03-10 09:51:06 Images from the original note were not included. Appt follow up-Return in about 10 weeks (around 10/28/2023), or if symptoms worsen or fail to improve. Notes: triamcinolone acetonide 0.1 % cream Sig: Apply to area(s) 2 (two) times daily. Disp: 15 g Refills: 2 Start: 03/09/2024 Class: eRX For: Acneiform rash Last ordered: 3 years ago (08/17/2020) by Cheikh Boyle MD Provider Review Required [id number]/09/2024 07:44 PM Protocol Details This refill cannot be delegated Valid encounter within last 12 months To be filled at: [facility] - [address], [place] Last Refilled: 08/17/2020 Recent Visits Date Type Provider Dept 08/19/23 Office Visit Cheikh Boyle MD [facility] 05/13/23 Office Visit Cheikh Boyle MD [facility] 04/01/23 Office Visit Cheikh Boyle MD [facility] Showing recent visits within past 540 days with a meds authorizing provider and meeting all other requirements Future Appointments No visits were found meeting these conditions. Showing future appointments within next 150 days with a meds authorizing provider and meeting all other requirements Camelia Franks MA [facility] 2023-12-28 14:01:43 Addended by: PROMISE MULLEN RPH on: 12/28/2023 02:01 PM Modules accepted: Orders [facility] 2023-12-22 09:14:54 12/21: First attempt to contact Virgie Frausto to remind to complete SVR12 labs. No answer. Left voicemail asking patient to return call to clinical pharmacist at [phone]. If no return call from patient, will attempt again at a later date. 12/27: Second attempt to contact Virgie Frausto to remind to complete SVR12 labs. No answer. Left voicemail asking patient to return call to clinical pharmacist at [phone]. If no return call from patient, will attempt again at a later date. Additionally, sent [employer] message. 01/05: Third attempt to contact Virgie Frausto to remind to complete SVR12 labs. No answer. Left voicemail asking patient to return call to clinical pharmacist at [phone]. If no return call from patient, will attempt again at a later date. [email or web address] message read, but no response. Promise Mullen PharmD Clinical Pharmacist - GI/Hepatology [phone] Promise Mullen RPH [facility] 2023-12-03 23:30:37 53 dB. Hearing loss is not measured in percentages. If there are any questions pt. Should schedule an appt. To discuss. BRIDGET-OTOLARYNGOLOGY STAFF [facility] 2023-10-19 14:22:30 Virgie Frausto is a 38 year old female Pt called requesting to discuss with clinic and have forms of hospital uploaded to [facility] from hospital visit on 09/02/23. Stated that she was not able to find any documentation on chart. Please advise. Jaspreet Marisabel Bret [facility] 2023-09-24 11:18:02 Patient Reassessment: Hepatitis C Therapy DATE: 09/24/23 Virgie Frausto is a 38 year old y/o Black or female referred to PharmD by Taiwo Wharton NP for medication management. Summary of Visit Ms. Frausto is doing well today. She denies any side effects or missed doses of Mavyret therapy. Reports having 6 doses remaining, which is suggestive of a few missed doses. Labs completed on 08/19/23 resulted as HCV VL <10, which is suggestive of response to therapy. Reminded patient to complete end of treatment labs in a week. Orders have been placed. SVR12 due on or after 12/22/23. Next appointment with Taiwo on 02/08/24. Start date: 08/03/23 Anticipated end date: 09/29/23 Appropriateness of Hepatitis C Therapy: The regimen of Mavyret for 8 weeks remains appropriate for Virgie Frausto who has hepatitis C, genotype 1a, is treatment naive and non-cirrhotic. No renal or hepatic adjustments are required for this hepatitis C regimen. At this time there is no planned dose titration. Assessment of Hepatitis C Therapy: Therapeutic Goals: Patient will continue on HCV therapy at this time. Therapeutic benefit will be assessed by obtaining a HCV PCR 12 weeks after completion of HCV therapy. SVR achieved: No - patient is still on treatment Labs and Diagnostic tests: WBC x10 3 (/CMM) Date Value 08/25/2007 7.1 WBC (10*3/?L) Date Value 09/03/2023 11.90 (H) RBC x10 6 (/CMM) Date Value 08/25/2007 3.92 RBC (10*6/?L) Date Value 09/03/2023 4.24 HGB Date Value 09/03/2023 12.7 g/dL 08/25/2007 11.7 G/DL HCT (%) Date Value 09/03/2023 37.4 08/25/2007 33.6 (L) INR (no units) Date Value 07/01/2023 1.2 APTT Patient (Seconds) Date Value 10/17/2019 30 NA (mmol/L) Date Value 09/03/2023 138 K (mmol/L) Date Value 09/03/2023 4.2 CL (mmol/L) Date Value 09/03/2023 107 BUN (mg/dL) Date Value 09/03/2023 7 CREATININE (mg/dL) Date Value 09/03/2023 0.62 TOTAL BILI (mg/dL) Date Value 08/19/2023 0.6 BILI CONJ (mg/dL) Date Value 07/01/2023 0.0 BILI UNCON (mg/dL) Date Value 07/01/2023 0.5 T PROTEIN (g/dL) Date Value 08/19/2023 8.1 ALBUMIN (g/dL) Date Value 08/19/2023 4.4 ALK PHOS (U/L) Date Value 08/19/2023 74 ALT(SGPT) (U/L) Date Value 11/06/2018 31 ALTv (U/L) Date Value 08/19/2023 11 AST(SGOT) (U/L) Date Value 08/19/2023 18 Hepatitis C: Genotype: 1A Treatment status: naive Fibrosis score: F1 Hep C VL: <10 (08/19/23) Hepatitis B screening: HBsAg (no units) Date Value 07/01/2023 Negative HBsAg Semi-Quantitative (no units) Date Value 07/01/2023 0.06 Allergies: No Known Allergies Immunizations: Immunization History Administered Date(s) Administered SARS-COV-2 COVID 19 ALLY SUCROSE VACCINE 12+, [id number], 0.3 ML (30 MCG), IM PFIZER (TRAN TOP) 08/19/2023 SARS-COV-2 COVID-19 MODERNA 0.25ML BOOSTER VACCINE 01/23/2022 SARS-COV-2 COVID-19 MODERNA 12+ YRS VACCINE 10/17/2020, 11/14/2020 Vaccination history was reviewed. The patient was reminded about the importance of completing hepatitis A and B vaccinations if not immune and receiving an annual influenza vaccine as indicated. Medication Reconciliation: A medication history and reconciliation were performed (including prescription medications, supplements, over the counter, and herbal products). The medication list was updated and the patient's current medication list is included below. Prior to Admission medications Medication Sig Start Date End Date Taking? Authorizing Provider glecaprevir-pibrentasvir 100-40 mg Take 3 tablets by mouth in the morning. 07/24/23 Taiwo Wharton FNP dicyclomine 20 mg tablet Take 1 tablet by mouth every 6 (six) hours as needed for Abdominal pain. 06/29/23 Arianna Whitmore MD lactulose 10 gram/15 mL oral solution Take 30 mL by mouth 3 (three) times daily as needed for Constipation or For bowel movement. 06/29/23 Arianna Whitmore MD ondansetron (ZOFRAN) 4 mg tablet Take 1 tablet by mouth every 8 (eight) hours as needed for Nausea and Vomiting (N/V). 06/29/23 Arianna Whitmore MD ipratropium 0.02 % nebulizer solution Inhale 2.5 mL every 8 (eight) hours as needed for Wheezing or Shortness of Breath. 06/10/23 Cheikh Boyle MD ARIPiprazole (ABILIFY) 5 mg tablet Take 1 tablet by mouth in the morning. 05/15/23 Cheikh Boyle MD doxepin 100 mg capsule Take 1 capsule by mouth at bedtime. 05/15/23 Cheikh Boyle MD tretinoin 0.075 % Crea Apply 1 g to area(s) at bedtime. 04/28/23 Cheikh Boyle MD valACYclovir 1 gram tablet Take 1 tablet by mouth in the morning. 04/28/23 Frannie Smith PA-C albuterol 2.5 mg /3 mL (0.083 %) nebulizer solution Inhale 3 mL every 4 (four) hours as needed for Wheezing or Shortness of Breath. 04/01/23 Cheikh Boyle MD albuterol 90 mcg/actuation inhaler Inhale 2 Puffs every 4 (four) hours as needed for Wheezing or Shortness of Breath. 04/01/23 Cheikh Boyle MD buPROPion SR (WELLBUTRIN SR) 150 mg SR tablet Take 1 tablet by mouth in the morning and 1 tablet in the evening. 04/01/23 Cheikh Boyle MD DULoxetine 20 mg capsule Take 1 capsule by mouth in the morning and 1 capsule in the evening. 04/01/23 Cheikh Boyle MD topiramate 50 mg tablet Take 1 tablet by mouth in the morning and 1 tablet in the evening. 04/01/23 Cheikh Boyle MD triamcinolone acetonide 0.1 % cream Apply to area(s) 2 (two) times daily. 08/17/20 Cheikh Boyle MD The patient was reminded to speak with their health care provider before starting any new drug, including prescription or over the counter, natural / herbal products, or vitamins. The patient was educated not to start any antacids while on hepatitis C treatment including omeprazole, famotidine, magnesium, and calcium containing agents before consulting with the quality lead or hepatology clinical pharmacist. Drug Interactions: There are no significant drug-drug interactions Drug-Food Interactions There are no significant drug-food interactions. This medication should be taken with food. Adverse effects: Virgie Frausto reports having the following drug reactions: headache, right sided cramps Adherence: Refill history was reviewed with the patient. Virgie Frausto states they are adherent with regimen. The patient was reminded about the refill process and re-educated on the importance of adherence. Overall medication adherence status will be discussed with the care team as deemed appropriate. Patient receives their medication from [facility]. Safety Precautions: status: female - of childbearing potential (not currently ) Risk Evaluation and Mitigation Strategy (REMS) Assessment: No REMS is required for this medication. Contraindications: Virgie Frausto has no contraindications to this medication. Follow up Plan: Virgie Frausto denies having any questions at this time The patient was reminded of the refill process as discussed during the medication education. Virgie Frausto was encouraged to call the hepatology pharmacist at [phone] with questions. The patient will be contacted to complete another reassessment in 1 month. Promise Mullen PharmD Clinical Pharmacist - GI/Hepatology [phone] [facility] 2023-09-16 13:37:55 Notified patient of covid test results. Pt voiced understanding with no further concerns at this time [facility] Gabbi Rubi RN [facility] 2023-09-08 11:05:[address] Mercado: [10:48 AM] Jarrod Mercado. aCrlotta Rosado. she cant come in as her "car is not working at the moment". I will give her another refill. If she still has pain after finishing this, she needs to come in for evaluation (in clinic or ER). [10:49 AM] Jarrod Mercado. please make sure you document that we advised pt to come in and be seen but she cannot. Also talk to her about Medicaid transportation. [email or web address] message sent. CARLOTTA ROSADO RN 09/08/2023 11:05 AM CARLOTTA ROSADO RN 09/08/2023 11:05 AM STRY SEGMENT SPECIALIST Carlotta Rosado RN [facility] 2023-09-08 10:17:17 Pt stated that her pain goes down to a 4 and when it Tylenol/Ibuprofen wears off- it goes to a 7. Explained to pt that she will have some pain after procedure. I will let Dr. Mercado know and will call her back. No drainage or redness at incision sites. Verbalized understanding. CARLOTTA ROSADO RN 09/08/2023 10:24 AM [facility] 2023-09-07 15:16:29 gBoxhart message sent. CARLOTTA ROSADO RN 09/07/2023 3:16 PM STRY SEGMENT SPECIALIST Carlotta Rosado RN [facility] 2023-09-04 17:15:39 @[address] [place] [address] on for pt to return call. CARLOTTA ROSADO RN 09/04/2023 5:16 PM [facility] 2023-09-04 16:23:18 Patient states she is taking the tylenol and ibuprofen and it is not helping. She was told by the nurse to call back today for a follow up. [facility]/pharmacy #[id number] STRY SEGMENT SPECIALIST Lena Merritt [facility] 2023-09-03 16:23:[address] Per Dr. Belcher: reassured her that her surgery was uncomplicated. Make sure she ambulated so she can minimized gas pain. Take her gas-X BID. Take Ibuprofen with Tylenol 500 mg Q 6 hrs if needed. Take Corinth only PRN Verbalized understanding. CARLOTTA ROSADO RN 09/03/2023 4:24 PM [facility] Carlotta Rosado RN [facility] 2023-09-03 16:12:05 Name and verified. pt called stating that she is in a lot of pain and feels that Corinth # 4 is not enough. Pt last pain was was when DC around 10-11am. Pain went to a 4-5. Four hrs later- it went back up to a 8. Pt took ibuprofen and is still in pain. Pt stated if she "new that it was going to be this bad, I would have stayed at the hospital" Dr. Mercado advised. CARLOTTA ROSADO RN 09/03/2023 4:12 PM [facility] 2023-09-03 15:02:51 Pt is calling back says she in pain and want to make sure she has enough pain meds so want to discuss, had hysterectomy yesterday. [facility] Nata Perdomo [facility] 2023-09-03 13:00:35 Pt want to discuss pain meds that were prescribed says it will not be enough to get her through her pain. Had surgery yesterday. [facility] 2023-09-03 08:00:00 Incision sites x [address] Mercado; pt instructed to sponge bathe for the next few days and remove drsgs once she showers and drsgs get wet; Understanding verbalized FINA Alonzo RN [facility] 2023-09-03 08:00:[address] Mercado; Instructed by Dr Mercado NO tampons, douching, sex, tub baths, swimming, or lifting more than 10lbs; Understanding Verbalized [facility] 2023-09-02 17:00:02 CALLED AND UPDATED PT'S BHARAT ATKINS, AT 1701. - TOLU GONZALES. STRY SEGMENT SPECIALIST Sean Maurice RN [facility] 2023-09-01 16:11:36 Patient dropped of pre op clearance form from PCP. Clearance form given to Dr. Mercado. Dr. Mercado states she will perform the scheduled surgery tomorrow 09/02/2023. Camelia Lew with surgery scheduling advised. Patient given number to contact pre op nurse for pre op instructions. Ulices Adler RN 09/01/2023 4:12 PM [facility] 2023-09-01 12:52:20 Pt called. She will picking supervisor last OV with Dr. Mercado and Dr. Hall with lab results to take with her PCP appt today at 3pm. Advised pt to fill out a KULDIP and when her appt is done, she must come by office to either drop off clearance or cancel her procedure. Verbalize understanding. CARLOTTA ROSADO RN 09/01/2023 12:54 PM STRY SEGMENT SPECIALIST Carlotta Rosado RN [facility] 2023-09-01 11:39:17 Pt called. [facility] [phone]. They need to know what exactly needs to be done. If we have a form. Called office. Explained to them that we do not have a form. That she must be cleared by today to have surgery tomorrow. Office stated that they will call pt. CARLOTTA ROSADO RN 09/01/2023 11:42 AM [facility] 2023-09-01 09:59:32 Pt called office. Pt stated that she fired Dr. Hernandez has her PCP. Advised pt that she must be cleared by a PCP before surgery to be done. Explained the importance of having clearance and her recovery. Pt stated that she will find a PCP and get cleared today and will call us back. Dr. Mercado advised. Engineer R[employer] Deployment/Benefits Clerk also advised. [facility] 2023-09-01 09:15:00 Images from the original note were not included. Venipuncture collection performed by clean technique on the right anticubitus. Total of 1 attempts were made. Slight pressure and a bandage/dressing were applied to the site(s). The patient experienced no complications. The following specimens were processed according to instructions and sent to [facility] laboratories per lab order on 09/01/2023 : LT BLUE SST 1 RED LAV 3 PPT DK GREEN (LiHep) DK GREEN (SodH) TRAN DK BLUE (K2) DK BLUE (S) ACD Blood Culture NIPT/NTD [facility] 2023-09-01 09:15:00 Addended by: WILLIAMS NEGRO on: 09/01/2023 01:19 PM Modules accepted: Orders [facility] Williams Negro [facility] 2023-09-01 08:59:[address] Mercado- Unfortunately, she did not get clearance from her PCP. As stated at preop visit- she must have both clearance to proceed with her surgery. Therefore, we must cancel procedure. Named and verified. Pt advised of above. Pt is upset as Dr. Hernandez told her at visit- that if she is not able to get seen by psych- he will clear her base off her lab results. Explained that unfortunately, he did not document that is his notes. Pt stated that she is on her way to his office. Dr. Mercado advised. CARLOTTA ROSADO RN 09/01/2023 9:04 AM [facility] 2023-09-01 07:52:08 Pt want to make sure clinic received her clearance for surgery from her other physicians. FINA Perdomo [facility] 2023-08-31 13:11:37 Patient Reassessment: Hepatitis C Therapy DATE: 08/31/23 Virgie Frausto is a 38 year old y/o Black or female referred to PharmD by Taiwo Wharton NP for medication management. Summary of Visit Ms. Frausto is doing well today. She denies any missed doses of Mavyret therapy. Reports having ~28 doses remaining, which is suggestive of adherence as patient just started 2nd month of therapy. Patient reports side effects of mild fatigue. Patient is taking with food. Informed patient she make take in evenings to sleep through most of the fatigue. She confirms understanding. Will follow-up with patient in 1 month. Next appointment with Taiwo on 11/16/23. Start date: 08/03/23 Anticipated end date: 09/27/23 Appropriateness of Hepatitis C Therapy: The regimen of Mavyret for 8 weeks remains appropriate for Virgie Frausto who has hepatitis C, genotype 1a, is treatment naive and non-cirrhotic. No renal or hepatic adjustments are required for this hepatitis C regimen. At this time there is no planned dose titration. Assessment of Hepatitis C Therapy: Therapeutic Goals: Patient will continue on HCV therapy at this time. Therapeutic benefit will be assessed by obtaining a HCV PCR 12 weeks after completion of HCV therapy. SVR achieved: No - patient is still on treatment Labs and Diagnostic tests: WBC x10 3 (/CMM) Date Value 08/25/2007 7.1 WBC (10*3/?L) Date Value 08/19/2023 7.16 RBC x10 6 (/CMM) Date Value 08/25/2007 3.92 RBC (10*6/?L) Date Value 08/19/2023 4.43 HGB Date Value 08/19/2023 13.4 g/dL 08/25/2007 11.7 G/DL HCT (%) Date Value 08/19/2023 39.1 08/25/2007 33.6 (L) INR (no units) Date Value 07/01/2023 1.2 APTT Patient (Seconds) Date Value 10/17/2019 30 NA (mmol/L) Date Value 08/19/2023 138 K (mmol/L) Date Value 08/19/2023 4.2 CL (mmol/L) Date Value 08/19/2023 106 BUN (mg/dL) Date Value 08/19/2023 8 CREATININE (mg/dL) Date Value 08/19/2023 0.75 TOTAL BILI (mg/dL) Date Value 08/19/2023 0.6 BILI CONJ (mg/dL) Date Value 07/01/2023 0.0 BILI UNCON (mg/dL) Date Value 07/01/2023 0.5 T PROTEIN (g/dL) Date Value 08/19/2023 8.1 ALBUMIN (g/dL) Date Value 08/19/2023 4.4 ALK PHOS (U/L) Date Value 08/19/2023 74 ALT(SGPT) (U/L) Date Value 11/06/2018 31 ALTv (U/L) Date Value 08/19/2023 11 AST(SGOT) (U/L) Date Value 08/19/2023 18 Hepatitis C: Genotype: 1A Treatment status: naive Fibrosis score: F1 Hep C VL: 1,248,796 (05/13/23) Hepatitis B screening: HBsAg (no units) Date Value 07/01/2023 Negative HBsAg Semi-Quantitative (no units) Date Value 07/01/2023 0.06 Allergies: No Known Allergies Immunizations: Immunization History Administered Date(s) Administered SARS-COV-2 COVID 19 ALLY SUCROSE VACCINE 12+, [id number], 0.3 ML (30 MCG), IM PFIZER (TRAN TOP) 08/19/2023 SARS-COV-2 COVID-19 MODERNA 0.25ML BOOSTER VACCINE 01/23/2022 SARS-COV-2 COVID-19 MODERNA 12+ YRS VACCINE 10/17/2020, 11/14/2020 Vaccination history was reviewed. The patient was reminded about the importance of completing hepatitis A and B vaccinations if not immune and receiving an annual influenza vaccine as indicated. Medication Reconciliation: A medication history and reconciliation were performed (including prescription medications, supplements, over the counter, and herbal products). The medication list was updated and the patient's current medication list is included below. Prior to Admission medications Medication Sig Start Date End Date Taking? Authorizing Provider glecaprevir-pibrentasvir 100-40 mg Take 3 tablets by mouth in the morning. 07/24/23 Taiwo Wharton FNP dicyclomine 20 mg tablet Take 1 tablet by mouth every 6 (six) hours as needed for Abdominal pain. 06/29/23 Arianna Whitmore MD lactulose 10 gram/15 mL oral solution Take 30 mL by mouth 3 (three) times daily as needed for Constipation or For bowel movement. 06/29/23 Arianna Whitmore MD ondansetron (ZOFRAN) 4 mg tablet Take 1 tablet by mouth every 8 (eight) hours as needed for Nausea and Vomiting (N/V). 06/29/23 Arianna Whitmore MD ipratropium 0.02 % nebulizer solution Inhale 2.5 mL every 8 (eight) hours as needed for Wheezing or Shortness of Breath. 06/10/23 Cheikh Boyle MD ARIPiprazole (ABILIFY) 5 mg tablet Take 1 tablet by mouth in the morning. 05/15/23 Cheikh Boyle MD doxepin 100 mg capsule Take 1 capsule by mouth at bedtime. 05/15/23 Cheikh Boyle MD tretinoin 0.075 % Crea Apply 1 g to area(s) at bedtime. 04/28/23 Cheikh Boyle MD valACYclovir 1 gram tablet Take 1 tablet by mouth in the morning. 04/28/23 Frannie Smith PA-C albuterol 2.5 mg /3 mL (0.083 %) nebulizer solution Inhale 3 mL every 4 (four) hours as needed for Wheezing or Shortness of Breath. 04/01/23 Cheikh Boyle MD albuterol 90 mcg/actuation inhaler Inhale 2 Puffs every 4 (four) hours as needed for Wheezing or Shortness of Breath. 04/01/23 Cheikh Boyle MD buPROPion SR (WELLBUTRIN SR) 150 mg SR tablet Take 1 tablet by mouth in the morning and 1 tablet in the evening. 04/01/23 Cheikh Boyle MD DULoxetine 20 mg capsule Take 1 capsule by mouth in the morning and 1 capsule in the evening. 04/01/23 Cheikh Boyle MD topiramate 50 mg tablet Take 1 tablet by mouth in the morning and 1 tablet in the evening. 04/01/23 Cheikh Boyle MD triamcinolone acetonide 0.1 % cream Apply to area(s) 2 (two) times daily. 08/17/20 Cheikh Boyle MD The patient was reminded to speak with their health care provider before starting any new drug, including prescription or over the counter, natural / herbal products, or vitamins. The patient was educated not to start any antacids while on hepatitis C treatment including omeprazole, famotidine, magnesium, and calcium containing agents before consulting with the quality lead or hepatology clinical pharmacist. Drug Interactions: There are no significant drug-drug interactions Drug-Food Interactions There are no significant drug-food interactions. This medication should be taken with food. Adverse effects: Virgie Frausto reports having the following drug reactions: headache, right sided cramps Adherence: Refill history was reviewed with the patient. Virgie Frausto states they are adherent with regimen. The patient was reminded about the refill process and re-educated on the importance of adherence. Overall medication adherence status will be discussed with the care team as deemed appropriate. Patient receives their medication from [facility]. Safety Precautions: status: female - of childbearing potential (not currently ) Risk Evaluation and Mitigation Strategy (REMS) Assessment: No REMS is required for this medication. Contraindications: Virgie Frausto has no contraindications to this medication. Follow up Plan: Virgie Frausto denies having any questions at this time The patient was reminded of the refill process as discussed during the medication education. Virgie Frausto was encouraged to call the hepatology pharmacist at [phone] with questions. The patient will be contacted to complete another reassessment in 1 month. Promise Mullen PharmD Clinical Pharmacist - GI/Hepatology [phone] FINA Mullen [facility] 2023-08-31 09:53:47 Images from the original note were not included. Your procedure is at [facility] on 09/02/23. The address is [address] [place] [address], [id number]. [facility] nursing staff will call you the workday before your procedure to let you know what time to arrive.On the day of your procedure, please go inside that door and check in at the desk. Please note: You may not travel home alone and that includes in a taxi or by bus. We must speak to your Responsible Adult (who will be picking you up) the morning of your procedure, before the start of your procedure. This person must be an adult over the age of 18 years of age. Do not eat any solid food after midnight the night before surgery. You may have sips of clear liquids such as water, gatorade, and sprite up until two hours before your scheduled procedure. You may take your medications with a sip of water as directed by physician. Anticoagulants will be per physician guidance. Medication Note(s)/Instructions:Instructi ons given to hold topiramate evening before and morning of surgery. Pending screening, we may test for COVID. If a patient tests positive, their cases are cancelled and/or rescheduled. COVID SCREENING NOTE: Denies COVID symptoms, no testing required. Additional requests, questions, concerns:n/a. CB number provided. Patient verbalized understanding of pre-op instructions and voiced no further questions at this time. [facility] 2023-08-28 08:43:12 First attempt to contact Virgie Brian Frausto to verify compliance and assess tolerance of her specialty medication, Mavyret. No answer. Left voicemail asking patient to return call to clinical pharmacist at [phone]. If no return call from patient, will attempt again at a later date. Promise Mullen PharmD Clinical Pharmacist - GI/Hepatology [phone] FINA Mullen [facility] 2023-08-27 14:50:08 Would recommend to await Dr. Boyle's return Please let patient know [facility] 2023-08-27 14:10:41 Per patient, During OV with Dr. Boyle informed her if she can't get seen for psychiatrist she'll be cleared based on lab results come back normal. Patient is needing a clearance for surgery for Dr. Mercado. [facility] Malena Rey MA [facility] 2023-08-27 13:42:59 Pcp sent referral for psychiatry and psychological eval . Pending that. Noted in chart for its for Hysterectomy. To follow up on that LD [facility] 2023-08-27 11:01:07 Patient is needing clearance for surgery. FINA Rey MA [facility] 2023-08-27 10:25:21 CBC which looks at blood count looks relatively stable. No concern Cmp which looks at kidney, liver and electrolytes looks okay. [facility] 2023-08-26 13:21:11 Please view labs for patient, patient is wanting lab results due to having procedure on 09-02-2023 [facility] Malena Rey MA [facility] 2023-08-21 07:43:25 Spoke with patient and informed her labs have not been reviewed yet by Dr. Boyle. Once they have been reviewed we will give her a call with results. Patient understood and has no further questions. [facility] Malena Rey MA [facility] 2023-08-20 11:17:34 Virgie Frausto is a 38 year old female Patient called stating that she had labs done on 08/19 and would like someone to give her a call to explain those results and to make sure there is not going to be any affect for her surgery that is coming up on 09/02 Please advise [facility] SPECIALIST Harsh Garcia [facility] 2023-08-19 16:30:00 Images from the original note were not included. Venipuncture collection performed by clean technique on the right forearm(s). Total of 1 attempts were made. Slight pressure and a bandage/dressing were applied to the site(s). The patient experienced no complications. The following specimens were processed according to instructions and sent to [facility] laboratories per lab order on 08/19/2023 : LT BLUE 1 SST RED 1 LAV 1 PPT DK GREEN (LiHep) DK GREEN (SodH) TRAN DK BLUE (K2) DK BLUE (S) ACD Blood Culture NIPT/NTD [facility] 2023-08-12 13:13:38 Patient Reassessment: Hepatitis C Therapy DATE: 08/12/23 Virgie Frausto is a 38 year old y/o Black or female referred to PharmD by Taiwo Wharton NP for medication management. Summary of Visit Ms. Frausto is doing well today. She denies any missed doses of Mavyret therapy. Reports having 19 doses remaining. Patient reports side effects of headache and right sided cramping. Patient is taking with food. Informed her that she may take Tylenol (limit to 2g/daily), Advil, Motrin, or Aleve for pain as recommended by doctor. Will follow-up with patient in 3 months. Next appointment with Taiwo on 11/16/23. Start date: 08/03/23 Anticipated end date: 09/27/23 Appropriateness of Hepatitis C Therapy: The regimen of Mavyret for 8 weeks remains appropriate for Virgie Frausto who has hepatitis C, genotype 1a, is treatment naive and non-cirrhotic. No renal or hepatic adjustments are required for this hepatitis C regimen. At this time there is no planned dose titration. Assessment of Hepatitis C Therapy: Therapeutic Goals: Patient will continue on HCV therapy at this time. Therapeutic benefit will be assessed by obtaining a HCV PCR 12 weeks after completion of HCV therapy. SVR achieved: No - patient is still on treatment Labs and Diagnostic tests: WBC x10 3 (/CMM) Date Value 08/25/2007 7.1 WBC (10*3/?L) Date Value 07/01/2023 5.41 RBC x10 6 (/CMM) Date Value 08/25/2007 3.92 RBC (10*6/?L) Date Value 07/01/2023 4.45 HGB Date Value 07/01/2023 13.3 g/dL 08/25/2007 11.7 G/DL HCT (%) Date Value 07/01/2023 39.1 08/25/2007 33.6 (L) INR (no units) Date Value 07/01/2023 1.2 APTT Patient (Seconds) Date Value 10/17/2019 30 NA (mmol/L) Date Value 07/01/2023 135 K (mmol/L) Date Value 07/01/2023 4.4 CL (mmol/L) Date Value 07/01/2023 107 BUN (mg/dL) Date Value 07/01/2023 7 CREATININE (mg/dL) Date Value 07/01/2023 0.69 TOTAL BILI (mg/dL) Date Value 07/01/2023 0.7 BILI CONJ (mg/dL) Date Value 07/01/2023 0.0 BILI UNCON (mg/dL) Date Value 07/01/2023 0.5 T PROTEIN (g/dL) Date Value 07/01/2023 8.0 ALBUMIN (g/dL) Date Value 07/01/2023 4.2 ALK PHOS (U/L) Date Value 07/01/2023 86 ALT(SGPT) (U/L) Date Value 11/06/2018 31 ALTv (U/L) Date Value 07/01/2023 25 AST(SGOT) (U/L) Date Value 07/01/2023 26 Hepatitis C: Genotype: 1A Treatment status: naive Fibrosis score: F1 Hep C VL: 1,248,796 (05/13/23) Hepatitis B screening: HBsAg (no units) Date Value 07/01/2023 Negative HBsAg Semi-Quantitative (no units) Date Value 07/01/2023 0.06 Allergies: No Known Allergies Immunizations: Immunization History Administered Date(s) Administered SARS-COV-2 COVID-19 MODERNA 0.25ML BOOSTER VACCINE 01/23/2022 SARS-COV-2 COVID-19 MODERNA 12+ YRS VACCINE 10/17/2020, 11/14/2020 Vaccination history was reviewed. The patient was reminded about the importance of completing hepatitis A and B vaccinations if not immune and receiving an annual influenza vaccine as indicated. Medication Reconciliation: A medication history and reconciliation were performed (including prescription medications, supplements, over the counter, and herbal products). The medication list was updated and the patient's current medication list is included below. Prior to Admission medications Medication Sig Start Date End Date Taking? Authorizing Provider glecaprevir-pibrentasvir 100-40 mg Take 3 tablets by mouth in the morning. 07/24/23 Taiwo Wharton FNP dicyclomine 20 mg tablet Take 1 tablet by mouth every 6 (six) hours as needed for Abdominal pain. 06/29/23 Arianna Whitmore MD lactulose 10 gram/15 mL oral solution Take 30 mL by mouth 3 (three) times daily as needed for Constipation or For bowel movement. 06/29/23 Arianna Whitmore MD ondansetron (ZOFRAN) 4 mg tablet Take 1 tablet by mouth every 8 (eight) hours as needed for Nausea and Vomiting (N/V). 06/29/23 Arianna Whitmore MD ipratropium 0.02 % nebulizer solution Inhale 2.5 mL every 8 (eight) hours as needed for Wheezing or Shortness of Breath. 06/10/23 Cheikh Boyle MD ARIPiprazole (ABILIFY) 5 mg tablet Take 1 tablet by mouth in the morning. 05/15/23 Cheikh Boyle MD doxepin 100 mg capsule Take 1 capsule by mouth at bedtime. 05/15/23 Cheikh Boyle MD tretinoin 0.075 % Crea Apply 1 g to area(s) at bedtime. 04/28/23 Cheikh Boyle MD valACYclovir 1 gram tablet Take 1 tablet by mouth in the morning. 04/28/23 Frannie Smith PA-C albuterol 2.5 mg /3 mL (0.083 %) nebulizer solution Inhale 3 mL every 4 (four) hours as needed for Wheezing or Shortness of Breath. 04/01/23 Cheikh Boyle MD albuterol 90 mcg/actuation inhaler Inhale 2 Puffs every 4 (four) hours as needed for Wheezing or Shortness of Breath. 04/01/23 Cheikh Byole MD buPROPion SR (WELLBUTRIN SR) 150 mg SR tablet Take 1 tablet by mouth in the morning and 1 tablet in the evening. 04/01/23 Cheikh Boyle MD DULoxetine 20 mg capsule Take 1 capsule by mouth in the morning and 1 capsule in the evening. 04/01/23 Cheikh Boyle MD topiramate 50 mg tablet Take 1 tablet by mouth in the morning and 1 tablet in the evening. 04/01/23 Cheikh Boyle MD triamcinolone acetonide 0.1 % cream Apply to area(s) 2 (two) times daily. 08/17/20 Cheikh Boyle MD The patient was reminded to speak with their health care provider before starting any new drug, including prescription or over the counter, natural / herbal products, or vitamins. The patient was educated not to start any antacids while on hepatitis C treatment including omeprazole, famotidine, magnesium, and calcium containing agents before consulting with the quality lead or hepatology clinical pharmacist. Drug Interactions: There are no significant drug-drug interactions Drug-Food Interactions There are no significant drug-food interactions. This medication should be taken with food. Adverse effects: Virgie Frausto reports having the following drug reactions: headache, right sided cramps Adherence: Refill history was reviewed with the patient. Virgie Frausto states they are adherent with regimen. The patient was reminded about the refill process and re-educated on the importance of adherence. Overall medication adherence status will be discussed with the care team as deemed appropriate. Patient receives their medication from [facility]. Safety Precautions: status: female - of childbearing potential (not currently ) Risk Evaluation and Mitigation Strategy (REMS) Assessment: No REMS is required for this medication. Contraindications: Virgie Frausto has no contraindications to this medication. Follow up Plan: Virgie Frausto denies having any questions at this time The patient was reminded of the refill process as discussed during the medication education. Virgie Frausto was encouraged to call the hepatology pharmacist at [phone] with questions. The patient will be contacted to complete another reassessment in 1 month. Promise Mullen PharmD Clinical Pharmacist - GI/Hepatology [phone] FINA Mullen [facility] 2023-08-12 10:42:47 First attempt to contact Virgie Frausto to verify compliance and assess tolerance of her specialty medication, Mavyret. No answer. Left voicemail asking patient to return call to clinical pharmacist at [phone]. If no return call from patient, will attempt again at a later date. Promise Mullen PharmD Clinical Pharmacist - GI/Hepatology [phone] FINA Mullen [facility] 2023-07-24 13:49:19 Initial Assessment: Hepatitis C Virus Treatment DATE: 07/24/23 Virgie Frausto is a 38 year old y/o Black or female referred to PharmD by Taiwo Wharton NP for medication management. Summary of Visit Ms. Frausto is doing well today. Counseled on Mavyret. She confirms understanding and denies any questions. Patient is HCV positive, treatment naive, genotype 1A, and non-cirrhotic. HBV/HIV negative. Fibrosure score F1. Viral load 1,248,796 on 05/13/23. No clinically significant drug-drug interaction identified. Patient will receive treatment from [facility]. Start date: 08/03/23 Anticipated end date: 09/27/23 Indication / Regimen The regimen of Mavyret 3 tablet(s) by mouth once daily for 8 weeks is appropriate for Virgie Frausto who has hepatitis C, genotype 1a, is treatment naive and non-cirrhotic. No renal or hepatic adjustments are required for this hepatitis C regimen. At this time there is no planned dose titration. The patient has the ability to self-administer medication Therapeutic Goal: Achieve sustained virologic response (SVR) following completion of HCV therapy. The HCV PCR lab should be drawn 12 weeks after completion of HCV therapy. Baseline characteristics: Liver Staging: The patient's hepatic fibrosis staging was assessed. The most recent assessment was F1 which showed mild scarring. Past Medical History: Past Medical History: Diagnosis Date Acute URI 08/31/2019 Anxiety 07/25/2019 Bipolar 1 disorder Bronchitis 08/31/2019 Congenital heart disease with intracardiac shunting Constipation, unspecified constipation type 08/17/2019 Current moderate episode of major depressive disorder, unspecified whether recurrent 07/25/2019 Cutaneous abscess of groin 07/25/2019 Cysts of both ovaries 08/17/2019 Depression Disequilibrium Dizziness 05/26/2019 Hep C w/o coma, chronic age 19-20 10/19/19 Liver bx - Angelica fibrosis score 1/6 Hidradenitis 07/25/2019 IVDU (intravenous drug user) 07/25/2019 Lower abdominal pain 08/31/2019 Morbid obesity with body mass index of 40.0-49.9 05/26/2019 Non-intractable vomiting with nausea, unspecified vomiting type 07/25/2019 Peripheral vertigo involving left ear Primary insomnia 08/12/2019 Pulmonary hypertension Right ventricular dilation Schizophrenia with prominent negative symptoms 07/25/2019 Substernal chest pain 08/31/2019 Tobacco dependence 07/25/2019 Yeast infection 07/25/2019 Labs and Diagnostic tests: WBC x10 3 (/CMM) Date Value 08/25/2007 7.1 WBC (10*3/?L) Date Value 07/01/2023 5.41 RBC x10 6 (/CMM) Date Value 08/25/2007 3.92 RBC (10*6/?L) Date Value 07/01/2023 4.45 HGB Date Value 07/01/2023 13.3 g/dL 08/25/2007 11.7 G/DL HCT (%) Date Value 07/01/2023 39.1 08/25/2007 33.6 (L) INR (no units) Date Value 07/01/2023 1.2 APTT Patient (Seconds) Date Value 10/17/2019 30 NA (mmol/L) Date Value 07/01/2023 135 K (mmol/L) Date Value 07/01/2023 4.4 CL (mmol/L) Date Value 07/01/2023 107 BUN (mg/dL) Date Value 07/01/2023 7 CREATININE (mg/dL) Date Value 07/01/2023 0.69 TOTAL BILI (mg/dL) Date Value 07/01/2023 0.7 BILI CONJ (mg/dL) Date Value 07/01/2023 0.0 BILI UNCON (mg/dL) Date Value 07/01/2023 0.5 T PROTEIN (g/dL) Date Value 07/01/2023 8.0 ALBUMIN (g/dL) Date Value 07/01/2023 4.2 ALK PHOS (U/L) Date Value 07/01/2023 86 ALT(SGPT) (U/L) Date Value 11/06/2018 31 ALTv (U/L) Date Value 07/01/2023 25 AST(SGOT) (U/L) Date Value 07/01/2023 26 Hepatitis C: Genotype: 1A Treatment status: naive Fibrosis score: F1 Hep C VL: 1,248,796 (05/13/23) Hepatitis B screening: HBsAg (no units) Date Value 07/01/2023 Negative HBsAg Semi-Quantitative (no units) Date Value 07/01/2023 0.06 HBsAB (no units) Date Value 07/01/2023 Negative HIV Screening HIV 1/2 Ag-Ab with Reflex (no units) Date Value 02/02/2023 Negative Weight: Wt Readings from Last 1 Encounters: 07/23/23 120.1 kg (264 lb 12.8 oz) Allergies: No Known Allergies Immunizations: Immunization History Administered Date(s) Administered SARS-COV-2 COVID-19 MODERNA 0.25ML BOOSTER VACCINE 01/23/2022 SARS-COV-2 COVID-19 MODERNA 12+ YRS VACCINE 10/17/2020, 11/14/2020 Vaccination history was reviewed. The patient will be reminded about the importance of completing hepatitis B vaccination if not immune and receiving an annual influenza vaccine as indicated. Medication Reconciliation: Medication reconciliation is based on the patient's most recent med list in the electronic medical record (EMR) including herbal products and OTC medications. The patients' medication list will be updated during patient education, after speaking with the patient and prior to dispensing the medication. Prior to Admission medications Medication Sig Start Date End Date Taking? Authorizing Provider glecaprevir-pibrentasvir 100-40 mg Take 3 tablets by mouth in the morning. 07/24/23 Taiwo Wharton FNP miSOPROStoL 200 mcg tablet Take 1 tablet by mouth SEE-INSTRUCTIONS. Take one tab the night before and one tab the morning of procedure 07/23/23 Jarrod Mercado MD dicyclomine 20 mg tablet Take 1 tablet by mouth every 6 (six) hours as needed for Abdominal pain. 06/29/23 Arianna Whitmore MD lactulose 10 gram/15 mL oral solution Take 30 mL by mouth 3 (three) times daily as needed for Constipation or For bowel movement. 06/29/23 Arianna Whitmore MD ondansetron (ZOFRAN) 4 mg tablet Take 1 tablet by mouth every 8 (eight) hours as needed for Nausea and Vomiting (N/V). 06/29/23 Arianna Whitmore MD ipratropium 0.02 % nebulizer solution Inhale 2.5 mL every 8 (eight) hours as needed for Wheezing or Shortness of Breath. 06/10/23 Cheikh Boyle MD ARIPiprazole (ABILIFY) 5 mg tablet Take 1 tablet by mouth in the morning. 05/15/23 Cheikh Boyle MD doxepin 100 mg capsule Take 1 capsule by mouth at bedtime. 05/15/23 Cheikh Boyle MD tretinoin 0.075 % Crea Apply 1 g to area(s) at bedtime. 04/28/23 Cheikh Boyle MD valACYclovir 1 gram tablet Take 1 tablet by mouth in the morning. 04/28/23 Frannie Smith PA-C albuterol 2.5 mg /3 mL (0.083 %) nebulizer solution Inhale 3 mL every 4 (four) hours as needed for Wheezing or Shortness of Breath. 04/01/23 Cheikh Boyle MD albuterol 90 mcg/actuation inhaler Inhale 2 Puffs every 4 (four) hours as needed for Wheezing or Shortness of Breath. 04/01/23 Cheikh Boyle MD buPROPion SR (WELLBUTRIN SR) 150 mg SR tablet Take 1 tablet by mouth in the morning and 1 tablet in the evening. 04/01/23 Cheikh Boyle MD DULoxetine 20 mg capsule Take 1 capsule by mouth in the morning and 1 capsule in the evening. 04/01/23 Cheikh Boyle MD topiramate 50 mg tablet Take 1 tablet by mouth in the morning and 1 tablet in the evening. 04/01/23 Cheikh Boyle MD triamcinolone acetonide 0.1 % cream Apply to area(s) 2 (two) times daily. 08/17/20 Cheikh Boyle MD Drug Interactions: There are no significant drug-drug interactions Drug-Food Interactions There are no significant drug-food interactions. This medication should be taken with food. Safety Precautions: Hepatitis B reactivation risk: low status: female - of childbearing potential (not currently ) Risk Evaluation and Mitigation Strategy (REMS) Assessment: No REMS is required for this medication. Contraindications: Virgie Brian Frausto has no contraindications to this medication. Follow up Plan: Initial therapy assessment has been completed and the patient will be contacted and educated on their regimen. Following education the patient will be reassessed 1 month after starting therapy. Promise Mullen PharmD Clinical Pharmacist - GI/Hepatology [phone] FINA Mullen [facility] 2023-07-24 13:45:19 Patient Education: Hepatitis C Therapy DATE: 07/24/23 Virgie Frausto is a 38 year old y/o Black or female referred to PharmD by Taiwo Wharton NP for medication counseling. Regimen: I spoke with Virgie Frausto today to notify them that Mavyret for 8 weeks has been approved via insurance, and they are ready to begin therapy for hepatitis C. Medication Administration: Virgie Frausto was educated to take Mavyret. The [...] and disposal directions were reviewed with the patient. Safety Precautions: Contraindications: Virgie Frausto has no contraindications to this medication. The patient was instructed to seek medical attention immediately if they experience signs of an allergic reaction, including but not limited to: a rash; hives; itching; red, swollen, blistered, or peeling skin with or without fever. status was assessed and determined to be: female - of childbearing potential (not currently ). Medication Reconciliation: A medication history and reconciliation were performed (including prescription medications, supplements, over the counter, and herbal products). The medication list was updated and the patients' current medication list is included below. Prior to Admission medications Medication Sig Start Date End Date Taking? Authorizing Provider glecaprevir-pibrentasvir 100-40 mg Take 3 tablets by mouth in the morning. 07/24/23 Taiwo Wharton FNP miSOPROStoL 200 mcg tablet Take 1 tablet by mouth SEE-INSTRUCTIONS. Take one tab the night before and one tab the morning of procedure 07/23/23 Jarrod Mercado MD dicyclomine 20 mg tablet Take 1 tablet by mouth every 6 (six) hours as needed for Abdominal pain. 06/29/23 Arianna Whitmore MD lactulose 10 gram/15 mL oral solution Take 30 mL by mouth 3 (three) times daily as needed for Constipation or For bowel movement. 06/29/23 Arianna Whitmore MD ondansetron (ZOFRAN) 4 mg tablet Take 1 tablet by mouth every 8 (eight) hours as needed for Nausea and Vomiting (N/V). 06/29/23 Arianna Whitmore MD ipratropium 0.02 % nebulizer solution Inhale 2.5 mL every 8 (eight) hours as needed for Wheezing or Shortness of Breath. 06/10/23 Cheikh Boyle MD ARIPiprazole (ABILIFY) 5 mg tablet Take 1 tablet by mouth in the morning. 05/15/23 Cheikh Boyle MD doxepin 100 mg capsule Take 1 capsule by mouth at bedtime. 05/15/23 Cheikh Boyle MD tretinoin 0.075 % Crea Apply 1 g to area(s) at bedtime. 04/28/23 Cheikh Boyle MD valACYclovir 1 gram tablet Take 1 tablet by mouth in the morning. 04/28/23 Frannie Smith PA-C albuterol 2.5 mg /3 mL (0.083 %) nebulizer solution Inhale 3 mL every 4 (four) hours as needed for Wheezing or Shortness of Breath. 04/01/23 Cheikh Boyle MD albuterol 90 mcg/actuation inhaler Inhale 2 Puffs every 4 (four) hours as needed for Wheezing or Shortness of Breath. 04/01/23 Cheikh Boyle MD buPROPion SR (WELLBUTRIN SR) 150 mg SR tablet Take 1 tablet by mouth in the morning and 1 tablet in the evening. 04/01/23 Cheikh Boyle MD DULoxetine 20 mg capsule Take 1 capsule by mouth in the morning and 1 capsule in the evening. 04/01/23 Cheikh Boyle MD topiramate 50 mg tablet Take 1 tablet by mouth in the morning and 1 tablet in the evening. 04/01/23 Cheikh Boyle MD triamcinolone acetonide 0.1 % cream Apply to area(s) 2 (two) times daily. 08/17/20 Cheikh Boyle MD The patient was instructed to speak with their health care provider before starting any new drug, including prescription or over the counter, natural / herbal products, or vitamins. The patient was educated not to start any antacids while on hepatitis C treatment including omeprazole, famotidine, magnesium, and calcium containing agents before consulting with quality lead or hepatology clinical pharmacist. Drug-drug and drug-food interactions with the new therapy were assessed and reviewed with the patient. Appropriate recommended vaccinations were reviewed and discussed with the patient. Pharmacy Information: The patient was notified that their medication will be filled at [facility]. The patient was instructed to notify their clinic nurse coordinator by phone at [phone] when they receive their medication to coordinate a start date. The patient was educated on the refill process. Follow Up: The monitoring and follow-up plan was discussed with the patient. The patient was instructed to contact their health care provider if their symptoms or health problems do not get better or if they become worse. Virgie Frausto denies having any questions at this time. The patient was encouraged to call the hepatology pharmacist at [phone] with any questions. The patient will be contacted within 21 days after initiation of therapy for a complete medication assessment. Promise Mullen PharmD Clinical Pharmacist - GI/Hepatology [phone] STRY SEGMENT SPECIALIST [facility] 2023-04-28 15:51:58 Formatting of this n ote might be different from the original. Pt requesting refill. Varsha Garcia RN [facility] 2023-04-22 08:25:36 Formatting of this n ote might be different from the original. No further action needed. Malena Rey MA [facility] 2023-04-22 08:24:57 Formatting of this n ote might be different from the original. No further action needed. Malena Rey MA [facility] 2023-04-21 17:57:48 Formatting of this n ote might be different from the original. Referral/Consult Hep C w/o coma, chronic - Alternative therapy sent to [facility] pharmacy - Consult/Referral Clinical Assembler Convertible Top [facility] 2023-04-21 17:15:42 Formatting of this n ote is different from the original. Alternative Medication Hep C w/o coma, chronic - Alternative Rx sent, let patient know, and to follow-up as scheduled. - sofosbuvir-velpatasvir (EPCLUSA) 400-100 mg; Take 1 tablet by mouth in the morning. Dispense: 84 tablet; Refill: 0 Cheikh Boyle MD, MPH Culinary Intern, Department of Family Medicine [facility]23 5:16 PM Future Appointments In 1 week Nurse, [facility] In 2 weeks Cheikh Boyle MD [facility] Primary Care, [facility] 2023-04-21 16:06:22 Summary: PA denial Images from the original note were not included. Hello, the prior authoirzation has been denied for the following medication: Drug: Epclusa Denial Reason: Since Epclusa is the preferred alternative for the patient's diagnosis, we attempted a PA but received a denial due to more information needed. For criteria #7, is there any documents or information we can provide to the insurance showing that the provider has "expertise in treating HCV based on a certified training program"? This will help in getting the medication approved for the patient. If there are any further questions, please reach out to me. Thank you. Juan M Faria [facility] 2023-04-21 11:23:27 Formatting of this n ote might be different from the original. Pt is calling wanting update on med alternative. Nata Perdomo [facility] 2023-04-20 15:26:40 Formatting of this n ote might be different from the original. Spoke with [facility] pharmacy. PA denied for Mavyret, Epclusa is preferred alternative. Can you please change rx to Epclusa? Thank You! Sonal Espinoza RN [facility] 2023-04-14 11:17:57 Formatting of this n ote might be different from the original. Pt called and states that medication is needing a prior authorization. Please advise. glecaprevir-pibrentasvir (MAVYRET) 100-40 mg Steph Pollard [facility] 2023-03-30 17:06:36 Formatting of this n ote is different from the original. Refill denied. Pt needs office visit. [facility] 10/25/19. Pt notified in encounter on 12/10/20 that pt needed appt for refills. Pt ended up cancelling that visit. Requested Prescriptions Refused Prescriptions Disp Refills topiramate 50 mg tablet 60 tablet 0 Sig: Take 1 tablet by mouth in the morning and 1 tablet in the evening. Refused By: BLANKA MOSS Reason for Refusal: Patient needs appointment Blanka Moss LVN [facility] 2023-03-30 16:59:54 Message from [employer] : Refills have been requested for the following medications: topiramate 50 mg tablet [Thierno Bueno] Preferred pharmacy: [id number] Delivery method: Pickup Medication renewals requested in this message routed separately: carBAMazepine 400 mg 12 hr tablet [Cheikh Boyle] doxepin 50 m g capsule [Cheikh Boyle] buPROPion SR (WELLBUTRIN SR) 150 mg SR tablet [Cheikh Boyle] [facility] 2023-03-27 14:08:05 Formatting of this n ote might be different from the original. Spoke with pt to follow up. She states that she did not go back to the er for pain. She states that she is alternating naproxen and tylenol and the pain is slightly improving. Pain scale-6. Bleeding is light spotting. Pt given an appt for Thursday with Dr Mercado, strong er warnings given. ER visit at [facility] on 03/25- pt reports that what she passed in attached picture was sent for pathology and they did a vaginal ultrasound which she does not know the results of. UPT was negative. Pt advised to bring records to visit with her, or she can sign KULDIP to obtain records. It is preferable that records be available for visit on Thursday. Pt verbalizes understanding. Sonal Espinoza RN [facility] 2023-03-26 20:13:24 Formatting of this n ote might be different from the original. Informed pt per provider she needs to go to the er. Mary Ellen Molina MA [facility] 2023-03-26 19:54:03 Formatting of this n ote might be different from the original. Please advise [facility] 2023-03-26 16:52:04 Formatting of this n ote might be different from the original. Patient would like a nurse to call her. She is in a lot of pain. Candace Last [facility] 2023-03-26 12:14:32 Formatting of this n ote might be different from the original. Mchart message sent. CARLOTTA ROSADO RN 03/26/2023 12:14 PM Carlotta Rosado RN [facility] 2023-03-26 11:05:17 Formatting of this n ote might be different from the original. Pt called and states that she is taking Naproxen and Tylenol. She states that medication isn't working and is requesting to speak with a nurse to possibly get something called in. She tried getting sooner appointment, but there were no sooner available times. Please advise. Call back number: [phone] Steph Pollard [facility] 2023-03-25 16:09:03 Formatting of this n ote might be different from the original. Contacted patient. Patient states she is currently at ER. Patient advised to contact us for any f/u needed after visit. Ulices Adler RN 03/25/2023 4:09 PM Ulices Adler RN [facility] 2023-03-25 09:58:02 Formatting of this n ote might be different from the original. Attempted to contact patient. No answer, unable to leave VM. VM is full. Ulices Adler RN 03/25/2023 9:58 AM [facility] 2023-03-24 16:34:23 Formatting of this n ote might be different from the original. Attempted to contact patient. No answer, VM left. Ulices Adler RN 03/24/2023 4:34 PM [facility] 2023-03-24 16:16:03 Formatting of this n ote might be different from the original. Per pt she received her depo last month. Pt thinks that she may be having effects from depo. Pt states that she has been bleeding heavily, and is having severe abdominal pain. She rates her pain a 9/10. She is concerned that a cyst has popped and is requesting to speak with a nurse. Please advise. Call back number: [phone] Steph Pollard [facility]
[2024-03-14] MEDS ORDERED: CEFTRIAXONE 1000 MG/VIAL ONE (02:14)
[2024-03-14] MEDS ORDERED: LIDOCAINE 1% MPF 2 ML AMPULE ONE (02:14)
[2024-03-14] MEDS ORDERED: KETOROLAC 30 MG/ML INJ ONE (02:15)
[2024-03-14] MEDS ORDERED: CODEINE 30MG/APAP 300MG TAB ONE (02:15)
[2024-03-14] MEDS ORDERED: ONDANSETRON 4 MG (ODT) TAB ONE (02:15)
--- NOTE | 2024-03-14 02:17 | EDPHYS ---
Physician Documentation [facility] Name: Alie Gee Age: 39 yrs Sex: Female : 1985 Arrival Date: 03/14/2024 Time: 01:40 Bed 6 Private MD: ED Physician Real Flynn HPI: 03/14 01:59 This 39 yrs old Black Female presents to ER via Unassigned with complaints of Ear Pain, sp4 Toothache, Breast Lump. 05:23 39-year-old female presents with left lower dental pain left lower molar cavity, with sp4 associated dental and ear pain on the left side. Also complaining of the right chest wall lump directly underneath the right breast. 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 - Infectious Disease History:: Denies. - Social history:: Smoking status: Patient reports the use of cigarette tobacco products, 7/day, Reported history of juuling and/or vaping. - Family history:: not pertinent. ROS: 05:23 Constitutional: Negative for fever, chills, and weight loss, Eyes: Negative for injury, sp4 pain, redness, and discharge, ENT: Negative for injury, pain, and discharge, dental pain positive left ear pain positive for lump underneath the right breast 05:23 All other systems are negative, Exam: 05:23 Constitutional: This is a well developed, well nourished patient who is awake, alert, sp4 and in no acute distress. Head/Face: Normocephalic, atraumatic. Eyes: Pupils equal round and reactive to light, extra-ocular motions intact. Lids and lashes normal. Conjunctiva and sclera are not injected. Cornea within normal limits. Periorbital areas with no swelling, redness, or edema. ENT: Nares patent. No nasal discharge, no septal abnormalities noted. Tympanic membranes are normal and external auditory canals are clear. Oropharynx with no redness, swelling, or masses, exudates, or evidence of obstruction, uvula midline. Mucous membranes moist. Dental tenderness and cavity of tooth #18 Neck: Trachea midline, no thyromegaly or masses palpated, and no cervical lymphadenopathy. Supple, full range of motion without nuchal rigidity, or vertebral point tenderness. Chest/axilla: Normal chest wall appearance and motion. Nontender with no deformity. No lesions are appreciated. There is mild tenderness and lump directly underneath the right breast consistent with developing abscess Cardiovascular: Regular rate and rhythm with a normal S1 and S2. No gallops, murmurs, or rubs. Normal PMI, no JVD. No pulse deficits. Respiratory: Lungs have equal breath sounds bilaterally, clear to auscultation and percussion. No rales, rhonchi or wheezes noted. No increased work of breathing, no retractions or nasal flaring. Abdomen/GI: Soft, with normal bowel sounds. No distension or tympany. No guarding or rebound. No evidence of tenderness throughout. Back: No spinal tenderness. No costovertebral tenderness. Skin: Warm, dry with normal turgor. Normal color with no rashes, no lesions, and no evidence of cellulitis. MS/ Extremity: Pulses equal, no cyanosis. Neurovascular intact. Full, normal range of motion. Neuro: Awake and alert, GCS 15, oriented to person, place, time, and situation. Cranial nerves II-XII grossly intact. Motor strength 5/5 in all extremities. Sensory grossly intact. Psych: Awake, alert, with orientation to person, place and time. Behavior, mood, and affect are within normal limits Vital Signs: 02:08 Weight 108.86 kg; Height 5 ft. 5 in. ; Pain 10/10; vc1 02:16 BP 122 / 83; Pulse 63; Resp 14; Temp 98.2; Pulse Ox 100% ; Weight 108.86 kg; Height 5 jm12 ft. 5 in. ; 02:46 BP 114 / 66; Pulse 74; Resp 16 S; Temp 98.3(O); Pulse Ox 99% on R/A; jw7 02:16 Body Mass Index 39.94 (108.86 kg, 165.1 cm) jm12 02:08 Pain Scale: Adult vc1 [place] Coma Score: 05:23 Eye Response: spontaneous(4). Motor Response: obeys commands(6). Verbal Response: sp4 oriented(5). Total: 15. MDM: 02:05 Patient medically screened. sp4 05:23 Differential diagnosis: otitis media, otitis externa, barotrauma , serotympanum. Data sp4 reviewed: vital signs, nurses notes. Administered Medications: 02:18 Drug: Ondansetron PO 4 mg PO once Route: PO; jm12 02:47 Follow up: Response: No adverse reaction; Medication administered at discharge. jw7 02:38 Drug: Ketorolac IM 60 mg IM once Route: IM; Site: left ventrogluteal; jw7 02:48 Follow up: Response: No adverse reaction; Medication administered at discharge. jw7 02:38 Drug: Rocephin (cefTRIAXone) IM 1 grams IM once Route: IM; Site: right ventrogluteal; jw7 02:47 Follow up: Response: No adverse reaction; Medication administered at discharge. jw7 02:38 Drug: Acetaminophen-Codeine PO (300 mg-30 mg) 2 tabs PO once; RASS on ADMIN: Combtv4, jw7 Very Agttd3, Agttd2, Rstlss1, AlertClm0, Drwsy-1, Lt Sdtn-2, Mod Sdtn-3, Dp Sdtn-4, UnArsble-5 Route: PO; 02:47 Follow up: Response: No adverse reaction; Medication administered at discharge. jw7 02:47 Drug: Trimethoprim-Sulfamethoxazole PO (160 mg-800 mg (DS) 1 tablet PO once Route: PO; jw7 02:47 Follow up: Response: No adverse reaction; Medication administered at discharge. jw7 Disposition Summary: 03/14/24 02:17 Discharge Ordered Notes: Location: Home sp4 Problem: new sp4 Symptoms: have improved sp4 Condition: Stable sp4 Diagnosis - Dental root caries sp4 - Dental caries, unspecified sp4 - Sebaceous cyst with infection, acute pulpitis tooth #18 sp4 Followup: sp4 - With: Nathaniel Snyder DDS - When: 7 - 10 days - Reason: Recheck today's complaints Discharge Instructions: - Discharge Summary Sheet sp4 - Dental Pain, [id number] sp4 Forms: - Patient Portal Instructions sp4 Prescriptions: - Cephalexin 250 mg Oral Capsule - take 1 capsule ORAL route every 8 hours for 10 days; 30 capsule; Refills: 0, sp4 Product Selection Permitted - Ibuprofen 800 mg Oral Tablet - take 1 tablet ORAL route every 8 hours As needed take with food; 30 tablet; sp4 Refills: 0, Product Selection Permitted - Tramadol 50 mg Oral Tablet - take 1 tablet ORAL route every 8 hours as needed; 12 tablet; Refills: 0, sp4 Product Selection Permitted - Bactrim DS 800-160 mg Oral Tablet - take 1 tablet ORAL route every 12 hours for 10 days; 20 tablet; Refills: 0, sp4 Product Selection Permitted Signatures: Dispatcher [employer] EDSC Steph Roy RN RN vc1 Zohra Yang RN RN jw7 Real Flynn MD MD sp4 Camelia Plummer RN RN jm12
--- NOTE | 2024-03-14 02:17 | ER ---
Nurse's Notes [facility] Name: Alie Gee Age: 39 yrs Sex: Female : 1985 Arrival Date: 03/14/2024 Time: 01:40 Bed 6 Private MD: Diagnosis: Dental root caries;Dental caries, unspecified;Sebaceous cyst with infection, acute pulpitis tooth #18 Presentation: 03/14 02:08 Chief complaint: Patient states: bilateral ear pain, left lower back tooth pain, wound vc1 under right breast. Coronavirus screen: Client denies travel out of the [place] in the last 14 days. At this time, the client does not indicate any symptoms associated with coronavirus-19. Ebola Screen: Patient negative for fever greater than or equal to 101.5 degrees Fahrenheit, and additional compatible Ebola Virus Disease symptoms Patient denies exposure to infectious person. Patient denies travel to an Ebola-affected area in the 21 days before illness onset. No symptoms or risks identified at this time. Initial Sepsis Screen: Does the patient meet any 2 criteria? No. Patient's initial sepsis screen is negative. Does the patient have a suspected source of infection? No. Patient's initial sepsis screen is negative. Risk Assessment: Do you want to hurt yourself or someone else? Patient reports no desire to harm self or others. Onset of symptoms was March 02, 2024. 02:08 Method Of Arrival: Ambulatory vc1 02:08 Acuity: CAROLYN 3 vc1 Triage Assessment: 02:13 General: Appears in no apparent distress. Behavior is calm, cooperative, appropriate vc1 for age. Pain: Complains of pain in lower left third molar, bilateral ears, under right breast Pain does not radiate. Pain currently is 10 out of 10 on a pain scale. Quality of pain is described as sharp. EENT: Reports pain in right ear and left ear. Neuro: Level of Consciousness is awake, alert, obeys commands, Oriented to person, place, time, situation, Appropriate for age. Cardiovascular: No deficits noted. Respiratory: Airway is patent Respiratory effort is even, unlabored, Respiratory pattern is regular, symmetrical, Breath sounds are clear. GI: Abdomen is round. : No deficits noted. No signs and/or symptoms were reported regarding the genitourinary system. Derm: Skin is intact, is healthy with good turgor, Skin is dry, Skin is normal, Skin temperature is warm. Derm: Wound noted under right breast. Musculoskeletal: Circulation, motion, and sensation intact. 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 - Infectious Disease History:: Denies. - Social history:: Smoking status: Patient reports the use of cigarette tobacco products, 7/day, Reported history of juuling and/or vaping. - Family history:: not pertinent. Screenin:11 [facility] ED Fall Risk Assessment (Adult) History of falling in the last 3 months, vc1 including since admission No falls in past 3 months (0 pts) Confusion or Disorientation No (0 pts) Intoxicated or Sedated No (0 pts) Impaired Gait No (0 pts) Mobility Assist Device Used No (0 pt) Altered Elimination No (0 pt) Score/Fall Risk Level 0 - 2 = Low Risk Oriented to surroundings, Maintained a safe environment, Educated pt \T\ family on fall prevention, incl call for assistance when getting out of bed. Abuse screen: Denies threats or abuse. Nutritional screening: No deficits noted. Tuberculosis screening: No symptoms or risk factors identified. Assessment: 02:17 General: Appears in no apparent distress. Behavior is calm, cooperative. Pain: jm12 Complains of pain in chest and mouth. Neuro: No deficits noted. Cardiovascular: No deficits noted. Respiratory: No deficits noted. GI: No deficits noted. No signs and/or symptoms were reported involving the gastrointestinal system. : No deficits noted. No signs and/or symptoms were reported regarding the genitourinary system. EENT: No deficits noted. No signs and/or symptoms were reported regarding the EENT system. Derm: No deficits noted. No signs and/or symptoms reported regarding the dermatologic system. Musculoskeletal: No deficits noted. No signs and/or symptoms reported regarding the musculoskeletal system. 02:46 Reassessment: Patient appears in no apparent distress at this time. No changes from jw7 previously documented assessment. Patient and/or family updated on plan of care and expected duration. Pain level reassessed. Patient is alert, oriented x 3, equal unlabored respirations, skin warm/dry/pink. Vital Signs: 02:08 Weight 108.86 kg; Height 5 ft. 5 in. ; Pain 10/10; vc1 02:16 BP 122 / 83; Pulse 63; Resp 14; Temp 98.2; Pulse Ox 100% ; Weight 108.86 kg; Height 5 jm12 ft. 5 in. ; 02:46 BP 114 / 66; Pulse 74; Resp 16 S; Temp 98.3(O); Pulse Ox 99% on R/A; jw7 02:16 Body Mass Index 39.94 (108.86 kg, 165.1 cm) jm12 02:08 Pain Scale: Adult vc1 [place] Coma Score: 05:23 Eye Response: spontaneous(4). Motor Response: obeys commands(6). Verbal Response: sp4 oriented(5). Total: 15. ED Course: 01:43 Patient arrived in ED. gm2 01:59 Real Flynn MD is Attending Physician. sp4 02:01 Camelia Plummer, TOLU is Primary Nurse. jm12 02:10 Triage completed. vc1 02:11 Arm band placed on right wrist. vc1 02:12 Patient has correct armband on for positive identification. Bed in low position. Call vc1 light in reach. 02:15 Provided Education on: use of call light. jw7 02:16 Nathaniel Snyder DDS is Referral Physician. sp4 02:48 No provider procedures requiring assistance completed. Patient did not have IV access jw7 during this emergency room visit. Administered Medications: 02:18 Drug: Ondansetron PO 4 mg PO once Route: PO; jm12 02:47 Follow up: Response: No adverse reaction; Medication administered at discharge. jw7 02:38 Drug: Ketorolac IM 60 mg IM once Route: IM; Site: left ventrogluteal; jw7 02:48 Follow up: Response: No adverse reaction; Medication administered at discharge. jw7 02:38 Drug: Rocephin (cefTRIAXone) IM 1 grams IM once Route: IM; Site: right ventrogluteal; jw7 02:47 Follow up: Response: No adverse reaction; Medication administered at discharge. jw7 02:38 Drug: Acetaminophen-Codeine PO (300 mg-30 mg) 2 tabs PO once; RASS on ADMIN: Combtv4, jw7 Very Agttd3, Agttd2, Rstlss1, AlertClm0, Drwsy-1, Lt Sdtn-2, Mod Sdtn-3, Dp Sdtn-4, UnArsble-5 Route: PO; 02:47 Follow up: Response: No adverse reaction; Medication administered at discharge. jw7 02:47 Drug: Trimethoprim-Sulfamethoxazole PO (160 mg-800 mg (DS) 1 tablet PO once Route: PO; jw7 02:47 Follow up: Response: No adverse reaction; Medication administered at discharge. jw7 Medication: 02:12 VIS not applicable for this client. vc1 Outcome: 02:17 Discharge ordered by . vilma 02:48 Discharged to home ambulatory, jw7 02:48 Condition: stable 02:48 Discharge instructions given to patient, Instructed on discharge instructions, follow up and referral plans. medication usage, Demonstrated understanding of instructions, follow-up care, medications, Prescriptions given X 4, 02:49 Patient left the ED. jw7 Signatures: Steph Roy RN RN vc1 Zohra Yang RN RN jw7 Real Flynn MD MD sp4 Corrie Rivera Jessica RN RN jm12
[2024-03-14] MEDS ORDERED: SMZ./TMP. 800/160 MG TABLET ONE (02:43)
[2024-03-14 07:19] VITALS: BP 114/66; TEMP 98.3; O2SAT 99
== END 2024-03-14 02:49 | disposition home or self-care (01) ==
LOC: ER 01:40
DX: K02.7 Dental root caries (principal); K04.01 Reversible pulpitis; L72.3 Sebaceous cyst; L08.9 Local infection of the skin and subcutaneous tissue, unspecified
CPT/HCPCS: 96372; 99284; Q0162; J0696

== ENCOUNTER 2024-07-03 19:31 | Emergency (ER) | payer OTHER, SELFPAY ==
--- NOTE | 2024-07-03 20:34 | EDPHYS ---
Physician Documentation [facility] Name: Alie Gee Age: 39 yrs Sex: Female : 1985 Arrival Date: 07/03/2024 Time: 19:31 Bed 11 Private MD: ED Physician Scottie Mcguire HPI: 07/03 20:40 This 39 yrs old Black Female presents to ER via Ambulatory with complaints of Ear Pain. rt 20:40 Patient with previous episodes of otitis externa presents to the ED with drainage, pain rt from the right ear starting about 2 to 3 days ago. She has been using Ciprodex drops from a previous prescription to no relief. Denies other acute complaints at this time, symptoms are moderate in severity, no other aggravating relieving factors.. 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 - Infectious Disease History:: Denies. - Social history:: Smoking status: Patient reports the use of cigarette tobacco products, smokes one-half pack cigarettes per day, Reported history of juuling and/or vaping. - Family history:: not pertinent. ROS: 20:40 Constitutional: Negative for fever, chills, and weight loss, Cardiovascular: Negative rt for chest pain, palpitations, and edema, Respiratory: Negative for shortness of breath, cough, wheezing, and pleuritic chest pain, Abdomen/GI: Negative for abdominal pain, nausea, vomiting, diarrhea, and constipation, Skin: Negative for injury, rash, and discoloration, Neuro: Negative for headache, weakness, numbness, tingling, and seizure, 20:40 ENT: Positive for drainage from ear(s), ear pain, Exam: 20:40 ENT: Right otitis externa noted, TM is difficult to visualize due to discharge, left TM rt and EAC are clear. 20:40 Constitutional: This is a well developed, well nourished patient who is awake, alert, rt and in no acute distress. Head/Face: Normocephalic, atraumatic. Skin: Warm, dry with normal turgor. Normal color with no rashes, no lesions, and no evidence of cellulitis. MS/ Extremity: Pulses equal, no cyanosis. Neurovascular intact. Full, normal range of motion. Neuro: Awake and alert, GCS 15, oriented to person, place, time, and situation. Cranial nerves II-XII grossly intact. Motor strength 5/5 in all extremities. Sensory grossly intact. Cerebellar exam normal. Normal gait. Vital Signs: 20:25 BP 142 / 95; Pulse 85; Resp 16; Temp 98.4; Pulse Ox 100% ; Weight 113.4 kg; Height 5 me1 ft. 5 in. ; Pain 6/10; 20:56 BP 147 / 95; Pulse 72; Resp 16; Temp 98.4; Pulse Ox 98% ; me1 20:25 Body Mass Index 41.60 (113.40 kg, 165.1 cm) me1 20:25 Pain Scale: Adult me1 MDM: 20:27 Medical Screening Exam initiated rt 20:40 Differential diagnosis: otitis media, otitis externa. Data reviewed: vital signs, rt nurses notes. Test considered but Not performed: CT: No clinical evidence to suggest mastoiditis, malignant OE, CT scan not indicated. Counseling: I had a detailed discussion with the patient and/or guardian regarding the historical points, exam findings, and any diagnostic results supporting the discharge/admit diagnosis, the need for outpatient follow up. Response to treatment: There is no appreciated change of the patient's symptoms at this time. Administered Medications: 20:56 Drug: Ketorolac IM 30 mg IM once Route: IM; Site: right gluteus; me1 20:56 Follow up: Response: No adverse reaction; Pain is decreased me1 Disposition Summary: 07/03/24 20:33 Discharge Ordered Notes: Location: Home rt Problem: new rt Symptoms: are unchanged rt Condition: Stable rt Diagnosis - Other otitis externa, right ear rt Followup: rt - With: Ivana Fernandez MD - When: 2 - 3 days - Reason: Discharge Instructions: - Discharge Summary Sheet rt - Otitis Externa rt Forms: - Medication Reconciliation Form rt - Antibiotic Education rt - Prescription Opioid Use rt - Patient Portal Instructions rt - Leadership Thank You Letter rt Prescriptions: - ofloxacin 0.3 % Otic drops - instill 5 drop OTIC route every 24 hours for 7 days; 1 Each; Refills: 0, rt Product Selection Permitted - Augmentin 875-125 mg Oral Tablet - take 1 tablet ORAL route every 12 hours for 10 days; 20 tablet; Refills: 0, rt Product Selection Permitted Signatures: Scottie Mcguire MD MD rt Sara Rodarte, RN RN me1
--- NOTE | 2024-07-03 20:34 | ER ---
Nurse's Notes [facility] Name: Alie Gee Age: 39 yrs Sex: Female : 1985 Arrival Date: 07/03/2024 Time: 19:31 Bed 11 Private MD: Diagnosis: Other otitis externa, right ear Presentation: 07/03 20:25 Chief complaint: Patient states: right ear pain x 2-3 days. Has been putting cipro ear me1 drops in for 2 days but pain is worse. Coronavirus screen: Vaccine status: Patient reports receiving the 2nd dose of the covid vaccine. Ebola Screen: No symptoms or risks identified at this time. Initial Sepsis Screen: Does the patient meet any 2 criteria? No. Patient's initial sepsis screen is negative. Does the patient have a suspected source of infection? No. Patient's initial sepsis screen is negative. Risk Assessment: Do you want to hurt yourself or someone else? Patient reports no desire to harm self or others. Onset of symptoms was June 30, 2024. 20:25 Method Of Arrival: Amb[place] [facility] [place] 20:25 Acuity: CAROLYN 5 me1 Triage Assessment: 20:26 General: Appears uncomfortable, ill, obese, well groomed, well developed, Behavior is me1 calm, cooperative, appropriate for age. Pain: Complains of pain in left ear Pain does not radiate. Pain currently is 6 out of 10 on a pain scale. Quality of pain is described as pressure, Pain began 2-3 days ago. Is continuous. EENT: Reports pain in left ear. Neuro: Level of Consciousness is awake, alert, obeys commands, Oriented to person, place, time, situation, Appropriate for age. Cardiovascular: Patient's skin is warm and dry. Respiratory: Airway is patent Respiratory effort is even, unlabored, Respiratory pattern is regular, symmetrical. GI: No signs and/or symptoms were reported involving the gastrointestinal system. : No signs and/or symptoms were reported regarding the genitourinary system. Derm: Skin is intact, is healthy with good turgor, Skin is pink, warm \T\ dry. Musculoskeletal: No signs and/or symptoms reported regarding the musculoskeletal system. 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 - Infectious Disease History:: Denies. - Social history:: Smoking status: Patient reports the use of cigarette tobacco products, smokes one-half pack cigarettes per day, Reported history of juuling and/or vaping. - Family history:: not pertinent. Screenin:27 [facility] ED Fall Risk Assessment (Adult) History of falling in the last 3 months, me1 including since admission No falls in past 3 months (0 pts) Confusion or Disorientation No (0 pts) Intoxicated or Sedated No (0 pts) Impaired Gait No (0 pts) Mobility Assist Device Used No (0 pt) Altered Elimination No (0 pt) Score/Fall Risk Level 0 - 2 = Low Risk Maintained a safe environment, Provided non-skid footwear, Hourly rounding (assess needs \T\ fall precautionary measures) done. Abuse screen: Denies threats or abuse. Nutritional screening: No deficits noted. Tuberculosis screening: No symptoms or risk factors identified. Assessment: 20:27 General: See triage assessment. . me1 Vital Signs: 20:25 BP 142 / 95; Pulse 85; Resp 16; Temp 98.4; Pulse Ox 100% ; Weight 113.4 kg; Height 5 me1 ft. 5 in. ; Pain 6/10; 20:56 BP 147 / 95; Pulse 72; Resp 16; Temp 98.4; Pulse Ox 98% ; me1 20:25 Body Mass Index 41.60 (113.40 kg, 165.1 cm) me1 20:25 Pain Scale: Adult mo1 ED Course: 19:35 Patient arrived in ED. gm2 19:52 Scottie Mcguire MD is Attending Physician. rt 20:24 Sara Rodarte RN is Primary Nurse. me1 20:26 Triage completed. me1 20:26 Arm band placed on Patient placed in an exam room. me1 20:27 Patient has correct armband on for positive identification. Bed in low position. Call mo1 light in reach. Side rails up X 1. Provided Education on: POC. Verbalized understanding. . Client placed on continuous cardiac and pulse oximetry monitoring. NIBP monitoring applied. Pulse ox on. NIBP on. 20:27 No provider procedures requiring assistance completed. me1 20:33 Ivana Fernandez MD is Referral Physician. rt 20:57 Patient did not have IV access during this emergency room visit. me1 Administered Medications: 20:56 Drug: Ketorolac IM 30 mg IM once Route: IM; Site: right gluteus; me1 20:56 Follow up: Response: No adverse reaction; Pain is decreased me1 Medication: 20:27 VIS not applicable for this client. me1 Outcome: 20:33 Discharge ordered by MD. rt 20:57 Discharged to home ambulatory, with significant other, me1 20:57 Condition: stable 20:57 Discharge instructions given to patient, significant other, Instructed on discharge instructions, follow up and referral plans. medication usage, Demonstrated understanding of instructions, follow-up care, medications, Prescriptions given X 2, 20:58 Patient left the ED. me1 Signatures: Scottie Mcguire MD MD rt Sara Rodarte RN RN me1 Corrie Rivera 2
[2024-07-03] MEDS ORDERED: KETOROLAC 30 MG/ML INJ ONE (20:48)
[2024-07-04 00:18] VITALS: TEMP 98.4
[2024-07-04 00:19] VITALS: BP 147/95; O2SAT 98
== END 2024-07-03 20:58 | disposition home or self-care (01) ==
LOC: ER 19:31
DX: H60.8X1 Other otitis externa, right ear (principal); F17.210 Nicotine dependence, cigarettes, uncomplicated
CPT/HCPCS: 96372; 99284

== ENCOUNTER 2024-08-12 14:11 | Emergency (ER) | payer OTHER ==
[2024-08-12] MEDS ORDERED: ONDANSETRON 4 MG/2 ML VIAL ONE (14:36)
[2024-08-12] MEDS ORDERED: NA CHLORIDE 0.9% 1,000 ML ONE (14:37)
[2024-08-12] MEDS ORDERED: ASPIRIN 81 MG CHEWABLE TABLET ONE (14:37)
[2024-08-12] MEDS ORDERED: MORPHINE 4 MG/ML SYR ONE (14:37)
[2024-08-12 14:42] LABS: Absolute Basophils 0.1 K/uL (0-0.5); Absolute Eosinophils 0.1 K/uL (0-0.5); Absolute Lymphocytes (CBC) 3.3 K/uL (0.7-4.9); Absolute Monocytes 0.5 K/uL (0.1-1.3); Absolute Neutrophil 2.8 K/uL (1.8-8.0); Basophils % 1.4 % (0-1.3); Eosinophils % 1.9 % (0-4.4); Hematocrit 37.3 % (36.0-45.0); Hemoglobin 12.6 g/dL (12.0-15.0); Lymphocytes % 48.3 % (15.3-44.8); MCH 30.5 pg (27.0-35.0); MCHC 33.7 g/dL (32.0-36.0); MCV 90.6 fL (80-100); MPV 7.1 fL (7.6-11.3); Monocytes % 6.9 % (3.3-12.3); Neutrophils % 41.5 % (41.7-73.7); Nucleated Red Blood Cells % 0.2 % (0-0); Platelets 366 thou/uL (152-406); RBC Red Blood Cell Count 4.12 M/uL (3.86-4.86); Red Cell Distribution Width 12.4 % (12.1-15.2)
[2024-08-12 15:00] LABS: AST/SGOT 12 U/L (15-37); Albumin 3.4 g/dL (3.4-5.0); Albumin/Globulin Ratio 0.9 (1.1-1.8); Alkaline Phosphatase 61 U/L (45-117); Anion Gap 9.8 mEq/L (5.0-15.0); BUN Blood Urea Nitrogen 8 mg/dL (7-18); Bicarbonate 23 mEq/L (21-32); Bilirubin Total 0.2 mg/dL (0.2-1.0); Glomerular Filtration Rate 90 ml/min (=/>90); Glucose Level 84 mg/dL (74-106); Lipase 26 U/L (13-75); NT PRO-BNP 82 pg/mL (<125); Potassium 3.8 mEq/L (3.5-5.1); Protein, Total 7.4 g/dL (6.4-8.2); Sodium Level 138 mEq/L (136-145)
[2024-08-12 15:03] LABS: ALT/SGPT < 14 U/L (13-56); Troponin High Sensitivity < 3.0 pg/mL (<58.9)
--- NOTE | 2024-08-12 15:14 | RAD REPORT ---
Procedure: Chest Single View HISTORY: Chest pain COMPARISON: 2022 FINDINGS: The lungs appear clear of acute infiltrate. No significant pleural effusion noted. The heart is mildly enlarged. IMPRESSION: No acute abnormality is displayed.
[2024-08-12] MEDS ORDERED: MAGNES/ALUMIN/SIMET 30ML UCUP ONE (16:09)
[2024-08-12] MEDS ORDERED: LIDOCAINE VISCOUS 2% 10ML ORAL SOLN ONE (16:10)
--- NOTE | 2024-08-12 16:46 | ER ---
Nurse's Notes [facility] Name: Alie Gee Age: 39 yrs Sex: Female : 1985 Arrival Date: 08/12/2024 Time: 14:11 Bed 5 Private MD: Diagnosis: Chest pain, unspecified Presentation: 08/12 14:14 Chief complaint: Chief complaint: Patient states: STATES WAS AT WORK STARTED VOMITING iw AND THEN MIDDLE LOWER "CHEST PAIN" POINTS TO EPIGASTRIC AREA. 14:14 Coronavirus screen: Client denies travel out of the [place] in the last 14 days. At this iw time, the client does not indicate any symptoms associated with coronavirus-19. Ebola Screen: Patient negative for fever greater than or equal to 101.5 degrees Fahrenheit, and additional compatible Ebola Virus Disease symptoms Patient denies exposure to infectious person. Patient denies travel to an Ebola-affected area in the 21 days before illness onset. No symptoms or risks identified at this time. Initial Sepsis Screen: Does the patient meet any 2 criteria? No. Patient's initial sepsis screen is negative. Does the patient have a suspected source of infection? No. Patient's initial sepsis screen is negative. Risk Assessment: Do you want to hurt yourself or someone else? Patient reports no desire to harm self or others. Onset of symptoms was August 12, 2024. 14:14 Method Of Arrival: Ambulatory iw 14:14 Acuity: CAROLYN 3 iw Triage Assessment: 14:16 General: Appears in no apparent distress. comfortable, Behavior is calm, cooperative. iw Pain: Complains of pain in xiphoid area. Neuro: Level of Consciousness is awake, alert, obeys commands, Oriented to person, place, time, situation. Cardiovascular: Reports chest pain, nausea, vomiting. Respiratory: Airway is patent Respiratory effort is even, unlabored, Respiratory pattern is regular, symmetrical. GI: Abdomen is non-distended. 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 - Infectious Disease History:: Denies. - Social history:: Smoking status: Patient reports the use of cigarette tobacco products, smokes one-half pack cigarettes per day, Reported history of juuling and/or vaping. Screenin:01 [facility] ED Fall Risk Assessment (Adult) History of falling in the last 3 months, ph including since admission No falls in past 3 months (0 pts) Confusion or Disorientation No (0 pts) Intoxicated or Sedated No (0 pts) Impaired Gait No (0 pts) Mobility Assist Device Used No (0 pt) Altered Elimination No (0 pt) Score/Fall Risk Level 0 - 2 = Low Risk Oriented to surroundings, Maintained a safe environment, Hourly rounding (assess needs \\T\\ fall precautionary measures) done. Abuse screen: Denies threats or abuse. Denies injuries from another. Nutritional screening: No deficits noted. Tuberculosis screening: No symptoms or risk factors identified. Assessment: 15:02 General: Appears in no apparent distress. Behavior is calm, cooperative, appropriate ph for age. Pain: Complains of pain in xiphoid area and mid-sternal area Pain radiates to back Pain began 2 hours ago. Neuro: Mercer Agitation-Sedation Scale (RASS): 0 - Alert and Calm Level of Consciousness is awake, alert, obeys commands, Oriented to person, place, time, situation. Cardiovascular: Reports chest pain, lightheadedness, nausea, shortness of breath, vomiting. GI: Abdomen is non-distended. Derm: Skin is pink, warm \\T\\ dry. Musculoskeletal: Circulation, motion, and sensation intact. Range of motion: intact in all extremities. 16:19 Reassessment: Patient appears in no apparent distress at this time. Patient and/or iw family updated on plan of care and expected duration. Pain level reassessed. Patient is alert, oriented x 3, equal unlabored respirations, skin warm/dry/pink. 17:44 Reassessment: Patient appears in no apparent distress at this time. Patient and/or iw family updated on plan of care and expected duration. Pain level reassessed. Patient states feeling better. Patient states symptoms have improved. Vital Signs: 14:14 Pulse 73; Resp 18; Temp 97.6; Pulse Ox 100% ; Weight 108.86 kg; Height 5 ft. 6 in. ; iw Pain 7/10; 16:20 BP 120 / 76; Pulse 69; Resp 19; Pulse Ox 100% on R/A; iw 17:44 BP 125 / 79; Pulse 71; Resp 16; Pulse Ox 97% ; Pain 0/10; iw 14:14 Body Mass Index 38.74 (108.86 kg, 167.64 cm) iw 14:14 Pain Scale: Adult iw 17:44 Pain Scale: Adult iw ED Course: 14:13 Patient arrived in ED. ra3 14:13 [facility] Me[facility] F[facility]-C [facility]. [facility]5 14:13 Donte Swann MD is Attending Physician. dr5 14:16 Triage completed. iw 14:16 Arm band placed on Patient placed in an exam room. iw 14:19 Shayy Baires, TOLU is Primary Nurse. ph 14:45 Initial lab(s) drawn, by me, sent to lab. EKG done, by ED staff, reviewed by Petar LOPEZ. Inserted saline lock: 22 gauge in right antecubital area, using aseptic technique. Blood collected. Flushed with 10 mL NS. 14:47 CBC with Diff Sent. ph 14:47 NT PRO-BNP Sent. ph 14:47 Troponin HS Sent. ph 14:51 XRAY Chest (1 view) In Process Unspecified. EDMS 15:02 Patient has correct armband on for positive identification. Placed in gown. Call light ph in reach. Side rails up X 1. Client placed on continuous cardiac and pulse oximetry monitoring. NIBP monitoring applied. manager monitoring on. Door closed. Noise minimized. Warm blanket given. Pillow given. 15:03 Patient maintains SpO2 saturation greater than 95% on room air. ph 17:44 No provider procedures requiring assistance completed. IV discontinued, intact, iw bleeding controlled, No redness/swelling at site. Pressure dressing applied. 17:45 Provided Education on: . iw Administered Medications: 14:47 Drug: Aspirin PO Chewable Tablet 324 mg PO once; 81 mg tablets x 4 Route: PO; ph 17:15 Follow up: Response: No adverse reaction iw 14:47 Drug: NS 0.9% IV 1000 ml IV at 1000 ml once; to be given as a bolus over 60 minutes ph Route: IV; Rate: 1000 ml; Site: right antecubital; 16:00 Follow up: IV Status: Completed infusion iw 14:47 Drug: Ondansetron IVP 4 mg IVP once; over 2 minutes Route: IVP; Site: right antecubital;ph 16:19 Follow up: Response: No adverse reaction iw 14:47 Drug: morphine IVP or IV 2 mg IVP once over 4 mins Route: IVP; Infused Over: 4 mins; ph Site: right antecubital; 16:19 Follow up: Response: No adverse reaction iw 16:19 Drug: GI Cocktail without - (Maalox PO 30 ml, Lidocaine Mucous Membrane 2 % 15 iw ml) PO once Route: PO; 17:00 Follow up: Response: No adverse reaction iw Medication: 15:02 VIS not applicable for this client. ph Outcome: 16:46 Discharge ordered by MD. dr5 17:44 Discharged to home ambulatory, iw 17:44 Condition: good 17:44 Discharge instructions given to patient, Instructed on discharge instructions, follow up and referral plans. medication usage, Demonstrated understanding of instructions, follow-up care, medications, Prescriptions given X 1, 17:45 Patient left the ED. iw Signatures: Dispatcher [employer] EDMS Ashli Torres, TOLU RN Shayy Baires RN RN Maria T Valdivia ra3 Petar Meza, ASSISTANT OPERATOR-C ASSISTANT OPERATOR-[id number] Corrections: (The following items were deleted from the chart) 14:16 14:14 Chief complaint: iw iw 14:18 14:14 Chief complaint: Patient states: STATES WAS AT WORK STARTED VOMITING AND THEN iw EPIGASTRIC PAIN STARTED. Chief complaint: Patient states: STATES WAS AT WORK STARTED VOMITING AND THEN EPIGASTRIC PAIN STARTED. iw 17:46 17:46 Reassessment: Patient appears in no apparent distress at this time. Patient iw and/or family updated on plan of care and expected duration. Pain level reassessed. Patient states feeling better. Patient states symptoms have improved. iw
--- NOTE | 2024-08-12 16:46 | EDPHYS ---
Physician Documentation [facility] Name: Alie Gee Age: 39 yrs Sex: Female : 1985 Arrival Date: 08/12/2024 Time: 14:11 Bed 5 Private MD: ED Physician Donte Swann HPI: 08/12 14:19 This 39 yrs old Black Female presents to ER via Ambulatory with complaints of Chest dr5 Pain, Vomiting. 14:19 Onset: The symptoms/episode began/occurred acutely, today. Patient is a 31-year-old dr5 female with history of bipolar disorder and schizophrenia coming in with midsternal chest pain / epigastric abdominal pain that started about 3 hours ago. Patient reports this has happened before in the past that resolved on its own. Patient reports that she did not take a medication prior to arrival for pain. Patient denies radiating pain. Pt states she vomited once this morning.. 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 - Infectious Disease History:: Denies. - Social history:: Smoking status: Patient reports the use of cigarette tobacco products, smokes one-half pack cigarettes per day, Reported history of juuling and/or vaping. ROS: 14:19 Constitutional: as per hpi dr5 Exam: 14:19 Constitutional: This is a well developed, well nourished patient who is awake, alert, dr5 and in no acute distress. Head/Face: Normocephalic, atraumatic. Eyes: Pupils equal round and reactive to light, extra-ocular motions intact. Lids and lashes normal. Conjunctiva and sclera are non-icteric and not injected. Cornea within normal limits. Periorbital areas with no swelling, redness, or edema. ENT: Nares patent. No nasal discharge, no septal abnormalities noted. Tympanic membranes are normal and external auditory canals are clear. Oropharynx with no redness, swelling, or masses, exudates, or evidence of obstruction, uvula midline. Mucous membranes moist. Chest/axilla: Normal chest wall appearance and motion. Nontender with no deformity. No lesions are appreciated. Cardiovascular: Regular rate and rhythm with a normal S1 and S2. Normal PMI, no JVD. No pulse deficits. Respiratory: Lungs have equal breath sounds bilaterally, clear to auscultation. No rales, rhonchi or wheezes noted. No increased work of breathing, no retractions or nasal flaring. Abdomen/GI: Soft, non-tender, non-distended Back: No spinal tenderness. No costovertebral tenderness. Full range of motion. Skin: Warm, dry with normal turgor. Normal color with no rashes, no lesions, and no evidence of cellulitis. Neuro: Awake and alert, GCS 15, oriented to person, place, time, and situation. Cranial nerves II-XII grossly intact. Motor strength 5/5 in all extremities. Sensory grossly intact. Cerebellar exam normal. Normal gait. Vital Signs: 14:14 Pulse 73; Resp 18; Temp 97.6; Pulse Ox 100% ; Weight 108.86 kg; Height 5 ft. 6 in. ; iw Pain 7/10; 16:20 BP 120 / 76; Pulse 69; Resp 19; Pulse Ox 100% on R/A; iw 17:44 BP 125 / 79; Pulse 71; Resp 16; Pulse Ox 97% ; Pain 0/10; iw 14:14 Body Mass Index 38.74 (108.86 kg, 167.64 cm) iw 14:14 Pain Scale: Adult iw 17:44 Pain Scale: Adult iw MDM: 14:21 Medical Screening Exam initiated dr5 15:10 ED course: Reviewed blood work with no acute abnormality. Pending x-ray results and dr5 re-evaluation.. 19:34 Differential diagnosis: viral Infection, bacterial infection, URI, STEMI, NSTEMI, GERD. dr5 Data reviewed: vital signs, nurses notes, lab test result(s). I considered the following discharge prescriptions or medication management in the emergency department Medications were administered in the Emergency Department. See MAR. Care significantly affected by the following chronic conditions: Bipolar, Schizophrenia, Heart Murmur. Care significantly affected by the following Social Determinants of Health: Poor access to healthcare and/or lack of insurance, Poor access to transportation, Problems related to employment. Counseling: I had a detailed discussion with the patient and/or guardian regarding the historical points, exam findings, and any diagnostic results supporting the discharge/admit diagnosis, the presence of at least one elevated blood pressure reading (>120/80) during this emergency department visit, lab results, radiology results, the need for outpatient follow up, for definitive care, a family practitioner, to return to the emergency department if symptoms worsen or persist or if there are any questions or concerns that arise at home. Medication response: Response to treatment: the patient's symptoms have resolved after treatment. ED course: Patient is feeling better on discharge. Second troponin was not elevated. Patient feeling better. Will trial patient on PPI and have her follow up with PCP this week. All questions answered.. 08/12 14:18 Order name: CBC with Diff; Complete Time: 14:55 [facility] 08/12 14:18 Order name: NT PRO-BNP; Complete Time: 15:05 [facility] 08/12 14:18 Order name: Troponin HS; Complete Time: 15:05 [facility] 08/12 14:18 Order name: CMP; Complete Time: 15:05 [facility] 08/12 14:19 Order name: Lipase; Complete Time: 15:05 [facility] 08/12 16:04 Order name: Troponin HS; Complete Time: 16:45 dr5 08/12 14:18 Order name: XRAY Chest (1 view); Complete Time: 15:25 [facility] 08/12 14:18 Order name: EKG; Complete Time: 14:19 dr5 08/12 14:18 Order name: Cardiac monitoring; Complete Time: 14:47 [facility] 08/12 14:18 Order name: EKG - Nurse/Tech; Complete Time: 14:47 [facility] 08/12 14:18 Order name: IV Saline Lock; Complete Time: 14:47 [facility] 08/12 14:18 Order name: Labs collected and sent; Complete Time: 14:47 [facility] 08/12 14:18 Order name: O2 Per Protocol; Complete Time: 14:47 [facility] 08/12 14:18 Order name: O2 Sat Monitoring; Complete Time: 14:47 dr5 EC:29 Rate is 74 beats/min. Rhythm is regular. QRS Friend is Normal. RI interval is normal at dr5 148 msec. QRS interval is normal at 76 msec. QT interval is normal at 386 msec. Administered Medications: 14:47 Drug: Aspirin PO Chewable Tablet 324 mg PO once; 81 mg tablets x 4 Route: PO; ph 17:15 Follow up: Response: No adverse reaction iw 14:47 Drug: NS 0.9% IV 1000 ml IV at 1000 ml once; to be given as a bolus over 60 minutes ph Route: IV; Rate: 1000 ml; Site: right antecubital; 16:00 Follow up: IV Status: Completed infusion iw 14:47 Drug: Ondansetron IVP 4 mg IVP once; over 2 minutes Route: IVP; Site: right antecubital;ph 16:19 Follow up: Response: No adverse reaction iw 14:47 Drug: morphine IVP or IV 2 mg IVP once over 4 mins Route: IVP; Infused Over: 4 mins; ph Site: right antecubital; 16:19 Follow up: Response: No adverse reaction iw 16:19 Drug: GI Cocktail without - (Maalox PO 30 ml, Lidocaine Mucous Membrane 2 % 15 iw ml) PO once Route: PO; 17:00 Follow up: Response: No adverse reaction iw Disposition Summary: 08/12/24 16:46 Discharge Ordered Notes: Location: Home dr5 Condition: Stable dr5 Diagnosis - Chest pain, unspecified dr5 Followup: dr5 - With: Emergency Department - When: As needed - Reason: Worsening of condition Followup: dr5 - With: Private Physician - When: 1 - 2 days - Reason: Recheck today's complaints, Continuance of care, Re-evaluation by your physician Discharge Instructions: - Discharge Summary Sheet dr5 - Nonspecific Chest Pain, Adult dr5 - Gastroesophageal Reflux Disease, Adult dr5 Forms: - Work release form iw - Medication Reconciliation Form dr5 - Patient Portal Instructions dr5 - Leadership Thank You Letter dr5 Prescriptions: - omeprazole 20 mg Oral tablet, delayed release (enteric coated) - take 1 tablet ORAL route daily for 4 wks; 30 tablet; Refills: 0, Product dr5 Selection Permitted Addendum: 08/15/2024 07:42 I was immediately available for consultation during this patient's visit. I did not e c2 personally see the patient or discuss the patient with the MIGUELINA. . Signatures: Dispatcher [employer] Ashli Rich RN RN iw Shayy Baires RN RN ph Donte Swann MD MD ec2 Petar Meza, DAUB COLOR MIXER-C DAUB COLOR MIXER-Cdr5 Corrections: (The following items were deleted from the chart) 08/12 14:19 14:19 LIPASE+[id number].LAB.BRZ ordered. EDMS EDMS
[2024-08-12 17:59] VITALS: TEMP 97.6; O2SAT 100
[2024-08-12 18:04] VITALS: BP 120/76
--- NOTE | 2024-08-22 11:21 | EKG ---
Test Date: 2024-08-12 Test Time: 14:29:49 Geodetic Engineer: PH MEASUREMENT RESULTS: Intervals: Rate: 74 PA: 148 QRSD: 76 QT: 386 QTc: 428 [place]: P: 35 PA: 148 QRS: 60 T: 28 INTERPRETIVE STATEMENTS: Normal sinus rhythm Normal ECG Compared to ECG 01/15/2023 20:30:23 No significant changes Electronically Signed On 08-22-24 11:06:34 MANAGER CAREER by Armando Webber
== END 2024-08-12 17:45 | disposition home or self-care (01) ==
LOC: ER 14:11
DX: R07.9 Chest pain, unspecified (principal); R10.13 Epigastric pain; R11.10 Vomiting, unspecified; F17.210 Nicotine dependence, cigarettes, uncomplicated
CPT/HCPCS: 96361; 93005; 85025; 36415; 84484 ×2; 83690; 80053; 83880; 71045; 96375; 96374; 99285; J2405; J7030

== ENCOUNTER 2024-11-07 20:52 | Emergency (ER) | payer OTHER ==
--- OUTSIDE RECORDS SUMMARY | 2024-11-07 21:02 | XMS REPORT | Continuity of Care Document ---
Author Name Unknown Address [address] [place] [address] [facility] [place] Address [address] [place] [address] Care Team Providers Care Leadlighter Name Role Phone CHEIKH OBYLE Primary Care Physician Unavaila JARROD Borjas Attending Clinician Unavailable JARROD MERCADO Attending Clinician Unavailable RU ACEVEDO Attending Clinician Unavailable Sergo David Attending Clinician [phone] Unknown, Attending Attending Clinician Unavailab SERGO Feliciano Attending Clinician Unavailable JAN ESTRADA Attending Clinician Unavailable Cheikh Boyle MD Attending Clinician [phone] Frannie Smith PA-C Attending Clinician [phone] TAIWO ALEGRIA Attending Clinician Unabette elmore Doctor Unassigned, [place] Attending Clinician U Jan Mina MD Attending Clinician [phone] Raulito Promise Merrill Attending Clinician Unavailable CHEIKH BOYLE Attending Clinician Unavailable Sergo David Attending Clinician [phone] Unknown, Attending Attending Clinician UnavailMalena Carter MD Attending Clinician [phone] MALENA GARCIA Attending Clinician Unavailable Troy Khan MD Attending Clinician [phone] OBI-FLOR, TROY Attending Clinician Unavailab le Pob, [facility] Attending Clinician Unavailzoraida HALL, NICANOR Attending Clinician Unavailable Rafael RICHARD, Nicanor Attending Clinician [phone] PremTaiwo Herman Attending Clinician [phone] Ebhiradha MICA INSPECTORSera Corona Attending Clinician [phone] FRANNIE SMITH Attending Clinician Unavailable Lab, [facility] Attending Clinician Unavailable ARIANNA WHITMORE Attending Clinician Unavailable Arianna Whitmore MD Attending Clinician [phone] Guajardo RT, Kimberly C Attending Clinician Unavailab ANDRE Kennedy Attending Clinician Unavailable Therapist, [facility] Pulmonary Attending Clinician Shirley vailable SERA WORTHY Attending Clinician Unavailable 2, [facility] Attending Clinician Unavailable Red Cramer MD Attending Clinician + [phone] Nurse, [facility] Attending Clinician Un available UNKNOWN, ATTENDING Attending Clinician Unavailab Sabiha Hernandez RN Attending Clinician Unavailable Only, Ang Mark Test Attending Clinician UnavailBlanka Vera LVN Attending Clinician Unavail able Kimmy Prieto RN Attending Clinician Unavailable CAMELIA ZURITA Attending Clinician Unavailable NII GUZMAN Attending Clinician Unav ailable Chad RICHARD, Nii Pruitt Attending Clinician + CIARRA FRANK Attending Clinician Unavailable Ernesto Zhuya S Attending Clinician [phone] ADELINE WILLIAM Attending Clinician Unavailable LIZANDRO KEATING Attending Clinician Unavailable Lizandro Rodriguez Attending Clinician [phone] BRITTANY BELCHER Attending Clinician Unavailable NATALIE ALMENDAREZ Attending Clinician Unavailable Natalie [place] Attending Clinician [phone] Nurse, [facility] Attending Clinician Un available Francis Valentin Attending Clinician [phone] FRANCIS BOWER Attending Clinician Unavailzoraida Kaur RN, Xochitl Stanford Attending Clinician Unavailab SHANNAN Morgan Attending Clinician Unavailab Shannan Fox Attending Clinician + [phone] Provider, [facility] Attending Clinician Unavailable Vaccine, [facility] Attending Clinician Unav ailable Dominic Peralta DO Attending Clinician [phone] DOMINIC PERALTA Attending Clinician Unavail able Brittany Belcher MD Attending Clinician [phone] Micheal Mayer DO Attending Clinician [phone] GAMALIEL GREER III Attending Clinician Unavailabl Susana Sandoval Attending Clinician Unavailable Susana Avelar Attending Clinician [phone] Provider, Urgent Care Day Attending Clinician Un available OMAGARTI OMAYEMI Attending Clinician Unavailzoraida hernandez Omaghomi MICA INSPECTORJojo Attending Clinician [phone] Tomasa Chaidez Attending Clinician [phone] Kaley Coello RN Attending Clinician Unavaila TOMASA [...] Clinician Unavaila ALBA Marrero Attending Clinician Unavailable [facility], [facility] Attending Clinician Unavail able 2, [facility] Room Attending Clinician Unava ilable Melisa Perez PT Attending Clinician Un available Kyle Ortiz MD Attending Clinician [phone] MICHEAL MAYER Attending Clinician Unavailable Gamaliel Johnson MD Attending Clinician + [phone] Filomena Torres DO Attending Clinician +[phone] JARROD MERCADO Admitting Clinician Unavailable Jarrod Mercado MD Admitting Clinician [phone] ARIANNA WHITMORE Admitting Clinician Unavailable CHEIKH BOYLE Admitting Clinician Unavailable NII GUZMAN Admitting Clinician Unav ailable CIARRA FRANK Admitting Clinician Unavailable NATALIE ALMENDAREZ Admitting Clinician Unavailable BRITTANY BELCHER Admitting Clinician Unavailable Brittany Belcher MD Admitting Clinician Susana DANIELS Admitting Clinician Unavailable MICHEAL MAYER Admitting Clinician Unavailable Payers Payer Name Policy Type Policy Number Effective Date Expirati on Date Source [facility] PAUL STAR [id number] 2017 00:00:00 [facility] [place] [facility] [id number] 2024 00:00:00 SERGIO JAVIER [facility] [id number] 2022 00:00:00 Problems Condition Name Condition Details Condition Category Status Onset Date Resolution Date Last Treatment Date Treating Clinician Comments Source Status post laparoscop ic hysterecto my Status post laparoscop ic hysterecto my Disease Active 09-02 00:00: 00 [facility] Status post bilateral salpingect fer Status post bilateral salpingect fre Disease Active 09-02 00:00: 00 [facility] Status post cystoscopy Status post cystoscopy Disease Active 09-02 00:00: 00 [facility] Preop cardiovasc ular exam Preop cardiovasc ular exam Disease Active 08-26 00:00: 00 [facility] PFO (patent foramen ovale) PFO (patent foramen ovale) Disease Active 08-26 00:00: 00 [facility] Cigarette smoker Cigarette smoker Disease Active - 00:00: 00 [facility] Moderate episode of recurrent major depressive disorder Moderate episode of recurrent major depressive disorder Disease Active - 00:00: 00 [facility] Pre-op examinatio n Pre-op examinatio n Disease Active - 00:00: 00 [facility] Abnormal uterine bleeding Abnormal uterine bleeding Disease Active 2022-08 2-14 00:00: 00 [facility] Tachycardi a Tachycardi a Disease Active 2022-08 0-04 00:00: 00 [facility] Mild intermitte nt asthma without complicati on Mild intermitte nt asthma without complicati on Disease Active 2022-08 0-04 00:00: 00 [facility] Bacterial vaginosis Bacterial vaginosis Disease Active 8-23 00:00: 00 [facility] COVID-19 virus infection COVID-19 virus infection Disease Active 8-23 00:00: 00 [facility] Migraine equivalent syndrome Migraine equivalent syndrome Disease Active 8-23 00:00: 00 [facility] Hemorrhagi c ovarian cyst Hemorrhagi c ovarian cyst Disease Active 3-30 00:00: 00 [facility] Obesity (BMI 30-39.9) Obesity (BMI 30-39.9) Disease Active 4-27 00:00: 00 [facility] Fibromyalg ia syndrome Fibromyalg ia syndrome Disease Active 3-10 00:00: 00 [facility] 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 simplex virus 2) infection Disease Active 2019-08 00:00: 00 [facility] Muscle spasms of both lower extremitie s Muscle spasms of both lower extremitie s Disease Active 2019-08 00:00: 00 [facility] Muscle spasms of both lower extremitie s Muscle spasms of both lower extremitie s Disease Active 2019-08 00:00: 00 [facility] Need for prophylact ic vaccinatio n against hepatitis A and hepatitis B Need for prophylact ic vaccinatio n against hepatitis A and hepatitis B Disease Active 8-06 00:00: 00 [facility] Virilizati on Virilizati on Disease Active 8-04 00:00: 00 [facility] Shortness of breath Shortness of breath Disease Active 5- 00:00: 00 [facility] SOB (shortness of breath) on exertion SOB (shortness of breath) on exertion Disease Active 5- 00:00: 00 [facility] Acneiform rash Acneiform rash Disease Active 2020-0 4-21 00:00: 00 [facility] Current smoker Current smoker Disease Active 3- 00:00: 00 [facility] Nicotine dependence with current use Nicotine dependence with current use Disease Active 327 00:00: 00 [facility] Medication care plan discussed with patient Medication care plan discussed with patient Disease Active 3-24 00:00: 00 [facility] Former smoker Former smoker Disease Active 3-20 00:00: 00 [facility] Menetrier' s disease Menetrier' s disease Disease Active 320 00:00: 00 [facility] Hep C w/o coma, chronic Hep C w/o coma, chronic Disease Active 2- 00:00: 00 [facility] Right lower quadrant abdominal pain Right lower quadrant abdominal pain Disease Active 1-22 00:00: 00 [facility] Bronchitis Bronchitis Disease Active 1- 00:00: 00 [facility] Substernal chest pain Substernal chest pain Disease Active 0 1-22 00:00: 00 [facility] Cysts of both ovaries Cysts of both ovaries Disease Active 1-08 00:00: 00 [facility] Primary insomnia Primary insomnia Disease Active 1-03 00:00: 00 [facility] Bipolar 1 disorder Bipolar 1 disorder Disease Active 2018-0816 00:00: 00 [facility] Nausea and vomiting in adult patient Nausea and vomiting in adult patient Disease Active 2018-0816 00:00: 00 [facility] Anxiety Anxiety Disease Active 2018-0816 00:00: 00 [facility] Current moderate episode of major depressive disorder, unspecifie d whether recurrent Current moderate episode of major depressive disorder, unspecifie d whether recurrent Disease Active 2018-0816 00:00: 00 [facility] Cigarette nicotine dependence with other nicotine-i nduced disorder Cigarette nicotine dependence with other nicotine-i nduced disorder Disease Active 2018-08 00:00: 00 [facility] Schizophre era with prominent negative symptoms Schizophre era with prominent negative symptoms Disease Active 2018-08 216 00:00: 00 [facility] IVDU (intraveno us drug user) IVDU (intraveno us drug user) Disease Active 2018-08 216 00:00: 00 [facility] Morbid obesity with body mass index (BMI) of 40.0 to 49.9 Morbid obesity with body mass index (BMI) of 40.0 to 49.9 Disease Active 2018-08 0-17 00:00: 00 [facility] Furuncle of right thigh Furuncle of right thigh Disease Resolve d 0 7-20 00:00: 00 2020-03-15 00:00:00 2020-03-15 14:12:28 [facility] Carbuncle of thigh Carbuncle of thigh Disease Resolve d 7-20 00:00: 00 2020-03-15 00:00:00 2020-03-15 14:12:22 [facility] Itching Itching Disease Resolve d 4-21 00:00: 00 2020-03-15 00:00:00 2020-03-15 14:12:32 [facility] Vertigo Vertigo Disease Resolve d 2018-08 017 00:00: 00 2020-02-27 00:00:00 2020-02-27 13:45:00 [facility] Chest pain Chest pain Disease Resolve d 5-27 00:00: 00 2020-02-27 00:00:00 2020-02-27 13:44:59 [facility] Chest pain, atypical Chest pain, atypical Disease Resolve d 0 3-03 00:00: 00 2020-02-27 00:00:00 2020-02-27 13:44:56 [facility] Acute URI Acute URI Disease Resolve d 1-22 00:00: 00 2019-09-10 00:00:00 2019-09-10 21:57:18 [facility] Constipati on, unspecifie d constipati on type Constipati on, unspecifie d constipati on type Disease Resolve d 1-08 00:00: 00 2019-09-10 00:00:00 2019-09-10 21:57:46 [facility] Yeast infection Yeast infection Disease Resolve d 2018-08 2-16 00:00: 00 2019-09-10 00:00:00 2019-09-10 21:59:37 [facility] Cutaneous abscess of groin Cutaneous abscess of groin Disease Resolve d 2018-08 00:00: 00 2019-09-10 00:00:00 2019-09-10 21:59:20 [facility] Hidradenit is Hidradenit is Disease Resolve d 2018-0816 00:00: 00 2019-09-10 00:00:00 2019-09-10 21:59:02 [facility] Allergies, Adverse Reactions, Alerts Allergy Name Allergy Type Status Severity Reaction(s) Onset Date Inactive Date Treating Clinician Comments Source NO KNOWN ALLERGIE S Drug Class Active [facility] Social History Social Habit Start Date Stop Date Quantity Comments Source History SDOH Alcohol Frequency [facility] History SDOH Alcohol Std Drinks [facility] History SDOH Alcohol Binge [facility] History of tobacco use Passive smoker [facility] Alcohol intake 2023-09-15 00:00:00 2023-09-15 00:00:00 Current drinker of alcohol (finding) [facility] Alcoholic beverage intake 2023-09-15 00:00:00 2023-09-15 00:00:00 Current drinker of alcohol (finding) [facility] History of Social function 2023-09-02 00:00:00 2023-09-02 00:00:00 [facility] Tobacco Comment 2023-08-31 00:00:00 2023-08-31 00:00:00 Stopped vaping ~1 yr ago (only smokes two cigarettes per day) [facility] Cigarettes smoked current (pack per day) - Reported 2023-08-31 00:00:00 2023-08-31 00:00:00 [facility] Cigarette pack-years 2023-08-31 00:00:00 2023-08-31 00:00:00 [facility] Tobacco use and exposure 2023-08-31 00:00:00 2023-08-31 00:00:00 Smokeless tobacco non-user [facility] Exposure to SARS-CoV-2 (event) 2022-08-06 00:00:00 2022-08-16 11:23:00 Not sure [facility] Alcohol Comment 2021-10-03 00:00:00 2021-10-03 00:00:00 every weekend [facility] Sex assigned at 1985 00:00:00 1985 00:00:00 [facility] Smoking Status Start Date Stop Date Source Smokes tobacco daily 2023-08-31 00:00:00 [facility] Medications Ordered Medication Name Filled Medication Name Start Date Stop Date Current Medication? Ordering Clinician Indication Dosage Frequency Signature (SIG) Comments Components Source ondansetron 4 mg disintegrat ing tablet 03-31 00:00: 00 04-06 04:59 :00 No [id number] 4mg Take 1 tablet by mouth every 8 (eight) hours as needed for Nausea and Vomiting (N/V) for up to 5 days. [facility] benzonatate 200 mg capsule 12-03 00:00: 00 12-14 04:59 :00 No [id number] 200mg Take 1 capsule by mouth 3 (three) times daily as needed for Cough for up to 10 days. [facility] glecaprevir -pibrentasv ir (MAVYRET) 100-40 mg 09-15 12:19: 10 Yes 3{tbl} Take 3 tablets by mouth in the morning. [facility] benzonatate 100 mg capsule 09-15 00:00: 00 Yes [id number] 200mg Take 2 capsules by mouth every 8 (eight) hours as needed for Cough. [facility] acetaminoph en-codeine 300-30 mg tablet - 00:00: 00 09-23 05:59 :00 No [id number] 1{tbl} Take 1 tablet by mouth every 4 (four) hours as needed for Pain (scale 7-10) for up to 7 days. Indication s: acute pain [facility] HYDROcodone -acetaminop hen 5-325 mg tablet 09-08 00:00: 00 09-11 05:59 :00 No [id number] 1{tbl} Take 1 tablet by mouth every 6 (six) hours as needed for Pain (scale 7-10) for up to 2 days. Indication s: acute pain [facility] glecaprevir -pibrentasv ir (MAVYRET) 100-40 mg 09-03 10:43: 47 Yes 3{tbl} Take 3 tablets by mouth in the morning. [facility] simethicone (GAS RELIEF (SIMETHICON E)) chewable tablet 160 mg 09-03 03:00: 00 Yes 160mg 160 mg, Oral, PC+HS, First dose on Thu09/02/23 at 2100, Until Discontinu ed, Routine [facility] docusate (COLACE) capsule 100 mg 09-03 02:00: 00 Yes 100mg 100 mg, Oral, Q12H, First dose on Thu09/02/23 at 2000, Until Discontinu ed, Routine [facility] metroNIDAZO LE (FLAGYL) tablet 500 mg 09-03 02:00: 00 09-10 01:59 :00 No 500mg 500 mg, Oral, Q12H, 14 doses, First dose on Thu09/02/23 at 2000, Last dose on Thu09/09/23 at 0800, Routine
Reason for Anti-Infec tive: Surgical Prophylaxi s
Surgi norma Prophylaxi s: [employer]
Duration of therapy: within 24 hours of surgery [facility] lactated ringers IV infusion 1,000 mL 09-03 01:00: 00 Yes 1000mL at 75 mL/hr, 1,000 mL, IV Infusion, CONTINUOUS , Starting on Thu09/02/23 at 1900, Until Discontinu ed, Routine, PACU [facility] ibuprofen (IBU) tablet 600 mg 09-03 00:52: 14 Yes 600mg 600 mg, Oral, Q6HPRN, Starting on Thu09/02/23 at 1852, Until Discontinu ed, Routine, Pain (scale 4-6) [facility] hydrOXYzine (ATARAX) tablet 25 mg 09-03 00:50: 18 Yes 25mg 25 mg, Oral, Q8HPRN, Starting on Thu09/02/23 at 1850, Until Discontinu ed, Routine, Itching [facility] ondansetron (ZOFRAN (PF)) injection 4 mg 09-03 00:50: 15 Yes 4mg 4 mg, Slow IV Push, Q4HPRN, Starting on Thu09/02/23 at 1850, Until Discontinu ed, Routine, Nausea and Vomiting (N/V) [facility] HYDROcodone -acetaminop hen (NORCO 5) 5-325 mg tablet 2 tablet 09-03 00:50: 12 Yes 2{tbl} 2 tablet, Oral, Q4HPRN, Starting on Thu09/02/23 at 1850, Until Discontinu ed, Routine, Pain (scale 7-10) [facility] acetaminoph en (TYLENOL) tablet 650 mg 09-03 00:50: 06 Yes 650mg 650 mg, Oral, Q6HPRN, Starting on Thu09/02/23 at 1850, Until Discontinu ed, Routine, Pain (scale 1-3) [facility] HYDROcodone -acetaminop hen (NORCO 5) 5-325 mg tablet 1 tablet 09-03 00:30: 00 09-03 00:53 :00 No 1{tbl} 1 tablet, Oral, ONCE, 1 dose, On Thu09/02/23 at 1830, Routine, PACU [facility] FENTanyl PF (SUBLIMAZE (PF)) injection 25 mcg 09-03 00:27: 30 09-03 00:50 :00 No 25ug 25 mcg, Slow IV Push, Q5MIN PRN, 4 doses, Starting on Thu09/02/23 at 1827, Until Discontinu ed, Routine, Pain (scale 4-6), PACU [facility] sodium chloride 0.9 % irrigation solution 09-02 22:55: 00 09-03 00:41 :54 No PRN, Starting on Thu09/02/23 at 1655, Until Thu09/02/23 at 1841, Intra-op [facility] bupivacaine (preserv free) 0.5% (SENSORCAIN E MPF) injection 09-02 22:55: 00 09-03 00:41 :54 No PRN, Starting on Thu09/02/23 at 1655, Until Thu09/02/23 at 1841, Routine, Intra-op [facility] phenazopyri dine (PYRIDIUM) tablet 200 mg 09-02 19:45: 00 09-02 19:58 :00 No 200mg 200 mg, Oral, ONCE, 1 dose, On Thu09/02/23 at 1345, Routine [facility] lactated ringers IV infusion 1,000 mL 09-02 19:45: 00 09-02 19:58 :00 No 1000mL at 42 mL/hr, 1,000 mL, IV Infusion, ONCE, 1 dose, On Thu09/02/23 at 1345, Routine, DSU Pre-op [facility] ibuprofen 600 mg tablet 09-02 00:00: 00 Yes [id number] 600mg Take 1 tablet by mouth every 6 (six) hours as needed for Pain (scale 1-3) or Pain (scale 4-6). [facility] simethicone 80 mg chewable tablet 09-02 00:00: 00 Yes [id number] 80mg Take 1 tablet by mouth after meals and at bedtime. [facility] metroNIDAZO LE (FLAGYL) 500 mg tablet 09-02 00:00: 00 Yes [id number] 500mg Take 1 tablet by mouth every 12 (twelve) hours. [facility] HYDROcodone -acetaminop hen 5-325 mg tablet 09-02 00:00: 00 09-05 05:59 :00 No [id number] 1{tbl} Take 1 tablet by mouth every 6 (six) hours as needed for Pain (scale 7-10) for up to 2 days. Indication s: acute pain [facility] glecaprevir -pibrentasv ir (MAVYRET) 100-40 mg 08-31 09:40: 53 Yes 3{tbl} Take 3 tablets by mouth in the morning. [facility] topiramate 50 mg tablet 08-19 00:00: 00 Yes [id number] 50mg Take 1 tablet by mouth in the morning and 1 tablet in the evening. [facility] DULoxetine 20 mg capsule 08-19 00:00: 00 Yes [id number] 20mg Take 1 capsule by mouth in the morning and 1 capsule in the evening. [facility] doxepin 100 mg capsule 08-19 00:00: 00 Yes [id number] 100mg Take 1 capsule by mouth at bedtime. [facility] buPROPion SR (WELLBUTRIN SR) 150 mg SR tablet 08-19 00:00: 00 Yes [id number] 150mg Take 1 tablet by mouth in the morning and 1 tablet in the evening. [facility] ARIPiprazol e (ABILIFY) 5 mg tablet 08-19 00:00: 00 Yes [id number] 5mg Take 1 tablet by mouth in the morning. [facility] glecaprevir -pibrentasv ir 100-40 mg 2022-08 00:00: 00 Yes [id number] 3{tbl} Take 3 tablets by mouth in the morning. [facility] miSOPROStoL 200 mcg tablet 2022-08 2-14 00:00: 00 07-30 00:00 :00 No [id number] 100 200ug Take 1 tablet by mouth SEE-INSTRU CTIONS. Take one tab the night before and one tab the morning of procedure [facility] sofosbuvir- velpatasvir 400-100 mg 2022-08 2- 00:00: 00 07-24 00:00 :00 No [id number] 1{tbl} Take 1 tablet by mouth in the morning. [facility] amoxicillin 875 mg tablet 2022-08 00:00: 00 07-20 05:59 :00 No [id number] 05 875mg Take 1 tablet by mouth in the morning and 1 tablet in the evening. Do all this for 10 days. [facility] iopamidol (ISOVUE 370-500 mL) injection 100 mL 2022-08 08:30: 00 06-29 08:30 :00 No [id number] 100mL 100 mL, Intravenou s, ONCE, 1 dose, On 06/29/23 at 0230, Routine [facility] ondansetron (ZOFRAN (PF)) injection 4 mg 2022-08 05:45: 00 06-29 05:55 :00 No 4mg 4 mg, Slow IV Push, ONCE, 1 dose, On 06/28/23 at 2345, UZMA [facility] morpHINE (4 mg/mL) injection 4 mg 2022-08 05:45: 00 06-29 05:56 :00 No 4mg 4 mg, Slow IV Push, ONCE, 1 dose, On 06/28/23 at 2345, STAT [facility] lactulose 10 gram/15 mL oral solution 2022-08 00:00: 00 Yes [id number] 30mL Take 30 mL by mouth 3 (three) times daily as needed for Constipati on or For bowel movement. [facility] dicyclomine 20 mg tablet 2022-08 00:00: 00 08-19 00:00 :00 No [id number] 20mg Take 1 tablet by mouth every 6 (six) hours as needed for Abdominal pain. [facility] ondansetron (ZOFRAN) 4 mg tablet 2022-08 00:00: 00 08-19 00:00 :00 No [id number] 4mg Take 1 tablet by mouth every 8 (eight) hours as needed for Nausea and Vomiting (N/V). [facility] ipratropium 0.02 % nebulizer solution 2022-08 00:00: 00 Yes [id number] .5mg Inhale 2.5 mL every 8 (eight) hours as needed for Wheezing or Shortness of Breath. [facility] ARIPiprazol e (ABILIFY) 5 mg tablet 2022-08 0- 00:00: 00 08-19 00:00 :00 No [id number] 5mg Take 1 tablet by mouth in the morning. [facility] doxepin 100 mg capsule 2022-08 0 00:00: 00 08-19 00:00 :00 No [id number] 100mg Take 1 capsule by mouth at bedtime. [facility] doxepin 100 mg capsule 2022-08 0 00:00: 00 05-15 00:00 :00 No [id number] 100mg Take 1 capsule by mouth at bedtime. [facility] ARIPiprazol e (ABILIFY) 5 mg tablet 2022-08 0 00:00: 00 05-15 00:00 :00 No [id number] 5mg Take 1 tablet by mouth in the morning. [facility] medroxyPROG ESTERone (DEPO-PROVE RA) syringe 150 mg 04-29 21:30: 00 04-29 20:38 :00 No [id number] 150mg [facility] tretinoin 0.075 % Crea 04-28 00:00: 00 Yes [id number] 1g Apply 1 g to area(s) at bedtime. [facility] valACYclovi r 1 gram tablet 04-28 00:00: 00 Yes [id number] 1g Take 1 tablet by mouth in the morning. [facility] sofosbuvir- velpatasvir (EPCLUSA) 400-100 mg 04-21 00:00: 00 07-10 00:00 :00 No [id number] 1{tbl} Take 1 tablet by mouth in the morning. [facility] albuterol 2.5 mg /3 mL (0.083 %) nebulizer solution 04-01 00:00: 00 Yes [id number] 2.5mg Inhale 3 mL every 4 (four) hours as needed for Wheezing or Shortness of Breath. [facility] albuterol 90 mcg/actuati on inhaler 04-01 00:00: 00 Yes [id number] 2{puff} Inhale 2 Puffs every 4 (four) hours as needed for Wheezing or Shortness of Breath. [facility] buPROPion SR (WELLBUTRIN SR) 150 mg SR tablet 04-01 00:00: 00 08-19 00:00 :00 No [id number] 150mg Take 1 tablet by mouth in the morning and 1 tablet in the evening. [facility] DULoxetine 20 mg capsule 04-01 00:00: 00 08-19 00:00 :00 No [id number] 20mg Take 1 capsule by mouth in the morning and 1 capsule in the evening. [facility] topiramate 50 mg tablet 04-01 00:00: 00 08-19 00:00 :00 No [id number] 50mg Take 1 tablet by mouth in the morning and 1 tablet in the evening. [facility] ipratropium 0.02 % nebulizer solution 04-01 00:00: 00 06-10 00:00 :00 No [id number] .5mg Inhale 2.5 mL every 8 (eight) hours as needed for Wheezing or Shortness of Breath. [facility] doxepin 50 mg capsule 04-01 00:00: 00 05-13 00:00 :00 No [id number] 50mg Take 1 capsule by mouth at bedtime. [facility] nirmatrelvi r-ritonavir (PAXLOVID, EUA,) 300 mg (150 mg x 2)-100 mg tablet 04-01 00:00: 00 05-13 00:00 :00 No [id number] 3{tbl} Take 3 tablets by mouth in the morning and 3 tablets in the evening. [facility] QUEtiapine (SEROQUEL) 100 mg tablet 04-01 00:00: 00 05-13 00:00 :00 No [id number] 100mg Take 1 tablet by mouth in the morning and 1 tablet in the evening. [facility] glecaprevir -pibrentasv ir (MAVYRET) 100-40 mg 04-01 00:00: 00 04-21 00:00 :00 No [id number] 3{tbl} Take 3 tablets by mouth in the morning. [facility] metroNIDAZO LE (FLAGYL) 500 mg tablet 04-01 00:00: 00 04-09 04:59 :00 No [id number] 500mg Take 1 tablet by mouth in the morning and 1 tablet in the evening. Do all this for 7 days. [facility] ibuprofen 600 mg tablet 03-30 00:00: 00 04-01 00:00 :00 No [id number] 600mg Take 1 tablet by mouth every 6 (six) hours as needed for Pain (scale 1-3) or Pain (scale 4-6). [facility] metroNIDAZO LE 500 mg tablet 02-05 00:00: 00 04-01 00:00 :00 No [id number] 500mg Take 1 tablet by mouth every 12 (twelve) hours. [facility] medroxyPROG ESTERone (DEPO-PROVE RA) syringe 150 mg 02-02 22:00: 00 02-02 20:59 :00 No [id number] 150mg [facility] valACYclovi r 1 gram tablet 02-02 00:00: 00 04-28 00:00 :00 No [id number] 1g Take 1 tablet by mouth in the morning. [facility] neomycin-po lymyxin-hyd rocortisone otic solution 03-24 00:00: 00 04-01 00:00 :00 No [id number] 4[drp] Place 4 Drops in right ear 4 (four) times daily. [facility] amoxicillin 875 mg tablet 2022-0 8-15 00:00: 00 04-01 04:59 :00 No [id number] 875mg Take 1 tablet by mouth in the morning and 1 tablet in the evening. Do all this for 7 days. [facility] iopamidol (ISOVUE 370-500 mL) injection 55 mL 02-18 01:45: 00 02-18 01:45 :00 No [id number] 55mL 55 mL, Intravenou s, ONCE, 1 dose, On Thu02/17/22 at 2045, Routine [facility] ketorolac (TORADOL) injection 15 mg 02-18 01:45: 00 02-18 01:15 :00 No 15mg 15 mg, Slow IV Push, ONCE, 1 dose, On Thu02/17/22 at 2045, UZMA [facility] HYDROcodone -acetaminop hen (NORCO) 10-325 mg tablet 1 tablet 02-18 01:00: 00 02-18 00:20 :00 No 1{tbl} 1 tablet, Oral, ONCE NOW, 1 dose, On Thu02/17/22 at 2000, Routine [facility] ibuprofen 600 mg tablet 02-17 00:00: 00 03-30 00:00 :00 No [id number] 600mg Take 1 tablet by mouth every 6 (six) hours as needed for Pain (scale 4-6). [facility] ketorolac (TORADOL) injection 30 mg 11-24 09:45: 00 11-24 09:19 :00 No 30mg 30 mg, Slow IV Push, ONCE, 1 dose, On Thu11/24/21 at 0445, Routine
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 Restricted medication : ARIANNA WHITMORE [facility] morpHINE injection 4 mg 11-24 08:15: 00 11-24 08:03 :00 No 4mg 4 mg, Slow IV Push, ONCE, 1 dose, On Thu11/24/21 at 0315, STAT [facility] FENTanyl PF (SUBLIMAZE (PF)) injection 50 mcg 11-24 05:16: 00 11-24 05:20 :00 No 50ug 50 mcg, Slow IV Push, ONCE, 1 dose, On 11/24/21 at 0030, Routine [facility] ondansetron (ZOFRAN (PF)) injection 4 mg 11-24 04:30: 00 11-24 03:45 :00 No 4mg 4 mg, Slow IV Push, ONCE, 1 dose, On 11/23/21 at 2330, UZMA [facility] FENTanyl PF (SUBLIMAZE (PF)) injection 50 mcg 11-24 04:30: 00 11-24 03:45 :00 No 50ug 50 mcg, Slow IV Push, ONCE, 1 dose, On 11/23/21 at 2330, Routine [facility] iopamidol (ISOVUE 370-500 mL) injection 100 mL 11-24 04:19: 00 11-24 04:19 :00 No [id number] 100mL 100 mL, Intravenou s, ONCE, 1 dose, On 11/23/21 at 2330, Routine [facility] HYDROcodone -acetaminop hen (NORCO) 10-325 mg tablet 11-24 00:00: 00 04-01 00:00 :00 No [id number] 1{tbl} Take 1 tablet by mouth every 6 (six) hours as needed for Pain (scale 7-10). Indication s: acute pain [facility] ketorolac 10 mg tablet 11-24 00:00: 00 03-30 00:00 :00 No [id number] 10mg Take 1 tablet by mouth every 6 (six) hours as needed for Alternate with [place] for pain scale 4-6. [facility] ibuprofen 800 mg tablet 11-07 00:00: 00 04-01 00:00 :00 No [id number] 800mg Take 1 tablet by mouth every 8 (eight) hours. [facility] oxyCODONE-a cetaminophe n 5-325 mg per tablet 2022-0 3-31 00:00: 00 04-01 00:00 :00 No [id number] 1{tbl} Take 1 tablet by mouth every 6 (six) hours as needed for Pain (scale 4-6). Indication s: acute pain [facility] chlorhexidi ne 0.12 % mouthwash 1-03 00:00: 00 04-01 00:00 :00 No [facility] DULOXETINE 20 mg capsule 01-29 00:00: 00 04-01 00:00 :00 No [id number] TAKE 1 CAPSULE BY MOUTH TWICE DAILY [facility] glecaprevir -pibrentasv ir (MAVYRET) 100-40 mg 10-28 00:00: 00 04-01 00:00 :00 No [id number] 3{tbl} Take 3 tablets by mouth in the morning. [facility] buPROPion SR (WELLBUTRIN SR) 150 mg SR tablet 10-28 00:00: 00 04-01 00:00 :00 No [id number] 150mg Take 1 tablet by mouth daily. [facility] benzoyl peroxide (ACNE FOAMING WASH) 10 % external wash 10-28 00:00: 00 04-01 00:00 :00 No [id number] Apply to area(s) 2 (two) times daily. [facility] albuterol 90 mcg/actuati on inhaler 10-28 00:00: 00 04-01 00:00 :00 No [id number] 2{puff} Inhale 2 Puffs every 4 (four) hours as needed for Wheezing or Shortness of Breath. [facility] albuterol 2.5 mg /3 mL (0.083 %) nebulizer solution 10-28 00:00: 00 04-01 00:00 :00 No [id number] 2.5mg Inhale 3 mL every 4 (four) hours as needed for Wheezing or Shortness of Breath. [facility] meclizine 25 mg tablet 10-28 00:00: 00 04-01 00:00 :00 No [id number] 25mg Take 1 tablet by mouth 3 (three) times daily as needed for Dizziness. [facility] valACYclovi r 1 gram tablet 10-28 00:00: 00 02-02 00:00 :00 No [id number] 1g Take 1 tablet by mouth daily. [facility] lidocaine 3 % Crea 10-28 00:00: 00 11-07 00:00 :00 No [id number] 2g Apply 2 g to area(s) 3 (three) times daily as needed for Pain (scale 4-6). [facility] bromphenira mine-pseudo ephedrine-D M (BROMFED DM) 2-30-10 mg/5 mL syrup 10-28 00:00: 00 11-07 00:00 :00 No [id number] 5mL Take 5 mL by mouth 4 (four) times daily as needed for Congestion /Allergies . [facility] dicyclomine 20 mg tablet 10-28 00:00: 00 11-07 00:00 :00 No [id number] 20mg Take 1 tablet by mouth every 6 (six) hours as needed for Abdominal pain. [facility] DULoxetine 20 mg capsule 10-28 00:00: 00 12-20 00:00 :00 No [id number] 20mg Take 1 capsule by mouth 2 (two) times daily. [facility] topiramate 50 mg tablet 10-25 00:00: 00 04-01 00:00 :00 No 50mg Take 1 tablet by mouth 2 (two) times daily. [facility] triamcinolo ne acetonide 0.1 % cream 08-17 00:00: 00 Yes [id number] Apply to area(s) 2 (two) times daily. [facility] tretinoin 0.075 % Crea 08-17 00:00: 00 04-28 00:00 :00 No [id number] 1g Apply 1 g to area(s) at bedtime. [facility] fluticasone propionate 110 mcg/actuati on inhaler 08-17 00:00: 00 04-01 00:00 :00 No [id number] 1{puff} Inhale 1 Puff every 12 (twelve) hours. [facility] carBAMazepi ne 400 mg 12 hr tablet 08-17 00:00: 00 04-01 00:00 :00 No [id number] 400mg Take 1 tablet by mouth 2 (two) times daily. [facility] doxepin 50 mg capsule 08-17 00:00: 00 04-01 00:00 :00 No [id number] 50mg Take 1 capsule by mouth at bedtime. [facility] ipratropium 0.02 % nebulizer solution 08-17 00:00: 00 04-01 00:00 :00 No [id number] .5mg Inhale 2.5 mL every 8 (eight) hours as needed for Wheezing or Shortness of Breath. [facility] Miscellaneo us Medical Supply Kit 08-17 00:00: 00 11-07 00:00 :00 No [id number] J40: Rochelletis - Dispense # 1 Laura Respironic s (okay for alternativ e brand) for nebulizer treatment [facility] azelaic acid 20 % cream 08-17 00:00: 00 11-07 00:00 :00 No [id number] Apply to area(s) 2 (two) times daily. Apply 2g to affected areas BID [facility] ondansetron (ZOFRAN) 4 mg tablet 08-17 00:00: 00 11-07 00:00 :00 No [id number] 4mg Take 1 tablet by mouth every 8 (eight) hours as needed for Nausea and Vomiting (N/V). [facility] proMETHazin e (PHENERGAN) 25 mg suppository 08-17 00:00: 00 11-07 00:00 :00 No [id number] 25mg Insert 1 Suppositor y into rectum every 4 (four) hours as needed for Nausea and Vomiting (N/V). [facility] predniSONE 20 mg tablet 2019-08 1-10 00:00: 00 11-07 00:00 :00 No [id number] 60mg Take 3 tablets by mouth every morning. [facility] benzonatate 100 mg capsule 0 9-13 00:00: 00 11-07 00:00 :00 No 100mg Take 1 capsule by mouth 3 (three) times daily as needed for Cough. [facility] Immunizations Ordered Immunization Name Filled Immunization Name Date Status Comments Source SARS-COV-2 COVID-19 MODERNA 0.25ML BOOSTER VACCINE 2022-01-23 00:00:00 Completed [facility] SARS-COV-2 COVID-19 MODERNA 0.25ML BOOSTER VACCINE 2022-01-23 00:00:00 Completed [facility] SARS-COV-2 COVID-19 MODERNA 0.25ML BOOSTER VACCINE 2022-01-23 00:00:00 Completed [facility] SARS-COV-2 COVID-19 MODERNA 0.25ML BOOSTER VACCINE 2022-01-23 00:00:00 Completed [facility] SARS-COV-2 COVID-19 MODERNA 0.25ML BOOSTER VACCINE 2022-01-23 00:00:00 Completed [facility] SARS-COV-2 COVID-19 MODERNA 0.25ML BOOSTER VACCINE 2022-01-23 00:00:00 Completed [facility] SARS-COV-2 COVID-19 MODERNA 0.25ML BOOSTER VACCINE 2022-01-23 00:00:00 Completed [facility] SARS-COV-2 COVID-19 MODERNA 0.25ML BOOSTER VACCINE 2022-01-23 00:00:00 Completed [facility] SARS-COV-2 COVID-19 MODERNA 0.25ML BOOSTER VACCINE 2022-01-23 00:00:00 Completed [facility] SARS-COV-2 COVID-19 MODERNA 0.25ML BOOSTER VACCINE 2022-01-23 00:00:00 Completed [facility] SARS-COV-2 COVID-19 MODERNA 0.25ML BOOSTER VACCINE 2022-01-23 00:00:00 Completed [facility] SARS-COV-2 COVID-19 MODERNA 0.25ML BOOSTER VACCINE 2022-01-23 00:00:00 Completed [facility] SARS-COV-2 COVID-19 MODERNA 0.25ML BOOSTER VACCINE 2022-01-23 00:00:00 Completed [facility] SARS-COV-2 COVID-19 MODERNA 0.25ML BOOSTER VACCINE 2022-01-23 00:00:00 Completed [facility] SARS-COV-2 COVID-19 MODERNA 0.25ML BOOSTER VACCINE 2022-01-23 00:00:00 Completed [facility] SARS-COV-2 COVID-19 MODERNA 0.25ML BOOSTER VACCINE 2022-01-23 00:00:00 Completed [facility] SARS-COV-2 COVID-19 MODERNA 0.25ML BOOSTER VACCINE 2022-01-23 00:00:00 Completed [facility] SARS-COV-2 COVID-19 MODERNA 0.25ML BOOSTER VACCINE 2022-01-23 00:00:00 Completed [facility] SARS-COV-2 COVID-19 MODERNA 0.25ML BOOSTER VACCINE 2022-01-23 00:00:00 Completed [facility] SARS-COV-2 COVID-19 MODERNA 0.25ML BOOSTER VACCINE 2022-01-23 00:00:00 Completed [facility] SARS-COV-2 COVID-19 MODERNA 0.25ML BOOSTER VACCINE 2022-01-23 00:00:00 Completed [facility] SARS-COV-2 COVID-19 MODERNA 0.25ML BOOSTER VACCINE 2022-01-23 00:00:00 Completed [facility] SARS-COV-2 COVID-19 MODERNA 0.25ML BOOSTER VACCINE 2022-01-23 00:00:00 Completed [facility] SARS-COV-2 COVID-19 MODERNA 0.25ML BOOSTER VACCINE 2022-01-23 00:00:00 Completed [facility] SARS-COV-2 COVID-19 MODERNA 0.25ML BOOSTER VACCINE 2022-01-23 00:00:00 Completed [facility] SARS-COV-2 COVID-19 MODERNA 0.25ML BOOSTER VACCINE 2022-01-23 00:00:00 Completed [facility] SARS-COV-2 COVID-19 MODERNA 0.25ML BOOSTER VACCINE 2022-01-23 00:00:00 Completed [facility] SARS-COV-2 COVID-19 MODERNA 0.25ML BOOSTER VACCINE 2022-01-23 00:00:00 Completed [facility] SARS-COV-2 COVID-19 MODERNA 0.25ML BOOSTER VACCINE 2022-01-23 00:00:00 Completed [facility] SARS-COV-2 COVID-19 MODERNA 0.25ML BOOSTER VACCINE 2022-01-23 00:00:00 Completed [facility] SARS-COV-2 COVID-19 MODERNA 0.25ML BOOSTER VACCINE 2022-01-23 00:00:00 Completed [facility] SARS-COV-2 COVID-19 MODERNA 0.25ML BOOSTER VACCINE 2022-01-23 00:00:00 Completed [facility] SARS-COV-2 COVID-19 MODERNA 0.25ML BOOSTER VACCINE 2022-01-23 00:00:00 Completed [facility] SARS-COV-2 COVID-19 MODERNA 0.25ML BOOSTER VACCINE 2022-01-23 00:00:00 Completed [facility] SARS-COV-2 COVID-19 MODERNA 0.25ML BOOSTER VACCINE 2022-01-23 00:00:00 Completed [facility] SARS-COV-2 COVID-19 MODERNA 0.25ML BOOSTER VACCINE 2022-01-23 00:00:00 Completed [facility] SARS-COV-2 COVID-19 MODERNA VACCINE 2020-11-14 00:00:00 Completed [facility] SARS-COV-2 COVID-19 MODERNA VACCINE 2020-11-14 00:00:00 Completed [facility] SARS-COV-2 COVID-19 MODERNA VACCINE 2020-11-14 00:00:00 Completed [facility] SARS-COV-2 COVID-19 MODERNA VACCINE 2020-11-14 00:00:00 Completed [facility] SARS-COV-2 COVID-19 MODERNA VACCINE 2020-11-14 00:00:00 Completed [facility] SARS-COV-2 COVID-19 MODERNA VACCINE 2020-11-14 00:00:00 Completed [facility] SARS-COV-2 COVID-19 MODERNA VACCINE 2020-11-14 00:00:00 Completed [facility] SARS-COV-2 COVID-19 MODERNA VACCINE 2020-11-14 00:00:00 Completed [facility] SARS-COV-2 COVID-19 MODERNA VACCINE 2020-11-14 00:00:00 Completed [facility] SARS-COV-2 COVID-19 MODERNA VACCINE 2020-11-14 00:00:00 Completed [facility] SARS-COV-2 COVID-19 MODERNA VACCINE 2020-11-14 00:00:00 Completed [facility] SARS-COV-2 COVID-19 MODERNA 12+ YRS VACCINE 2020-11-14 00:00:00 Completed [facility] SARS-COV-2 COVID-19 MODERNA 12+ YRS VACCINE 2020-11-14 00:00:00 Completed [facility] SARS-COV-2 COVID-19 MODERNA 12+ YRS VACCINE 2020-11-14 00:00:00 Completed [facility] SARS-COV-2 COVID-19 MODERNA 12+ YRS VACCINE 2020-11-14 00:00:00 Completed [facility] SARS-COV-2 COVID-19 MODERNA 12+ YRS VACCINE 2020-11-14 00:00:00 Completed [facility] SARS-COV-2 COVID-19 MODERNA 12+ YRS VACCINE 2020-11-14 00:00:00 Completed [facility] SARS-COV-2 COVID-19 MODERNA 12+ YRS VACCINE 2020-11-14 00:00:00 Completed [facility] SARS-COV-2 COVID-19 MODERNA 12+ YRS VACCINE 2020-11-14 00:00:00 Completed [facility] SARS-COV-2 COVID-19 MODERNA 12+ YRS VACCINE 2020-11-14 00:00:00 Completed [facility] SARS-COV-2 COVID-19 MODERNA 12+ YRS VACCINE 2020-11-14 00:00:00 Completed [facility] SARS-COV-2 COVID-19 MODERNA 12+ YRS VACCINE 2020-11-14 00:00:00 Completed [facility] SARS-COV-2 COVID-19 MODERNA 12+ YRS VACCINE 2020-11-14 00:00:00 Completed [facility] SARS-COV-2 COVID-19 MODERNA 12+ YRS VACCINE 2020-11-14 00:00:00 Completed [facility] SARS-COV-2 COVID-19 MODERNA 12+ YRS VACCINE 2020-11-14 00:00:00 Completed [facility] SARS-COV-2 COVID-19 MODERNA 12+ YRS VACCINE 2020-11-14 00:00:00 Completed [facility] SARS-COV-2 COVID-19 MODERNA 12+ YRS VACCINE 2020-11-14 00:00:00 Completed [facility] SARS-COV-2 COVID-19 MODERNA 12+ YRS VACCINE 2020-11-14 00:00:00 Completed [facility] SARS-COV-2 COVID-19 MODERNA 12+ YRS VACCINE 2020-11-14 00:00:00 Completed [facility] SARS-COV-2 COVID-19 MODERNA 12+ YRS VACCINE 2020-11-14 00:00:00 Completed [facility] SARS-COV-2 COVID-19 MODERNA 12+ YRS VACCINE 2020-11-14 00:00:00 Completed [facility] SARS-COV-2 COVID-19 MODERNA 12+ YRS VACCINE 2020-11-14 00:00:00 Completed [facility] SARS-COV-2 COVID-19 MODERNA 12+ YRS VACCINE 2020-11-14 00:00:00 Completed [facility] SARS-COV-2 COVID-19 MODERNA 12+ YRS VACCINE 2020-11-14 00:00:00 Completed [facility] SARS-COV-2 COVID-19 MODERNA 12+ YRS VACCINE 2020-11-14 00:00:00 Completed [facility] SARS-COV-2 COVID-19 MODERNA 12+ YRS VACCINE 2020-11-14 00:00:00 Completed [facility] SARS-COV-2 COVID-19 MODERNA 12+ YRS VACCINE 2020-11-14 00:00:00 Completed [facility] SARS-COV-2 COVID-19 MODERNA 12+ YRS VACCINE 2020-11-14 00:00:00 Completed [facility] SARS-COV-2 COVID-19 MODERNA 12+ YRS VACCINE 2020-11-14 00:00:00 Completed [facility] SARS-COV-2 COVID-19 MODERNA 12+ YRS VACCINE 2020-11-14 00:00:00 Completed [facility] SARS-COV-2 COVID-19 MODERNA 12+ YRS VACCINE 2020-11-14 00:00:00 Completed [facility] SARS-COV-2 COVID-19 MODERNA VACCINE 2020-10-17 00:00:00 Completed [facility] SARS-COV-2 COVID-19 MODERNA VACCINE 2020-10-17 00:00:00 Completed [facility] SARS-COV-2 COVID-19 MODERNA VACCINE 2020-10-17 00:00:00 Completed [facility] SARS-COV-2 COVID-19 MODERNA VACCINE 2020-10-17 00:00:00 Completed [facility] SARS-COV-2 COVID-19 MODERNA VACCINE 2020-10-17 00:00:00 Completed [facility] SARS-COV-2 COVID-19 MODERNA VACCINE 2020-10-17 00:00:00 Completed [facility] SARS-COV-2 COVID-19 MODERNA VACCINE 2020-10-17 00:00:00 Completed [facility] SARS-COV-2 COVID-19 MODERNA VACCINE 2020-10-17 00:00:00 Completed [facility] SARS-COV-2 COVID-19 MODERNA VACCINE 2020-10-17 00:00:00 Completed [facility] SARS-COV-2 COVID-19 MODERNA VACCINE 2020-10-17 00:00:00 Completed [facility] SARS-COV-2 COVID-19 MODERNA VACCINE 2020-10-17 00:00:00 Completed [facility] SARS-COV-2 COVID-19 MODERNA 12+ YRS VACCINE 2020-10-17 00:00:00 Completed [facility] SARS-COV-2 COVID-19 MODERNA 12+ YRS VACCINE 2020-10-17 00:00:00 Completed [facility] SARS-COV-2 COVID-19 MODERNA 12+ YRS VACCINE 2020-10-17 00:00:00 Completed [facility] SARS-COV-2 COVID-19 MODERNA 12+ YRS VACCINE 2020-10-17 00:00:00 Completed [facility] SARS-COV-2 COVID-19 MODERNA 12+ YRS VACCINE 2020-10-17 00:00:00 Completed [facility] SARS-COV-2 COVID-19 MODERNA 12+ YRS VACCINE 2020-10-17 00:00:00 Completed [facility] SARS-COV-2 COVID-19 MODERNA 12+ YRS VACCINE 2020-10-17 00:00:00 Completed [facility] SARS-COV-2 COVID-19 MODERNA 12+ YRS VACCINE 2020-10-17 00:00:00 Completed [facility] SARS-COV-2 COVID-19 MODERNA 12+ YRS VACCINE 2020-10-17 00:00:00 Completed [facility] SARS-COV-2 COVID-19 MODERNA 12+ YRS VACCINE 2020-10-17 00:00:00 Completed [facility] SARS-COV-2 COVID-19 MODERNA 12+ YRS VACCINE 2020-10-17 00:00:00 Completed [facility] SARS-COV-2 COVID-19 MODERNA 12+ YRS VACCINE 2020-10-17 00:00:00 Completed [facility] SARS-COV-2 COVID-19 MODERNA 12+ YRS VACCINE 2020-10-17 00:00:00 Completed [facility] SARS-COV-2 COVID-19 MODERNA 12+ YRS VACCINE 2020-10-17 00:00:00 Completed [facility] SARS-COV-2 COVID-19 MODERNA 12+ YRS VACCINE 2020-10-17 00:00:00 Completed [facility] SARS-COV-2 COVID-19 MODERNA 12+ YRS VACCINE 2020-10-17 00:00:00 Completed [facility] SARS-COV-2 COVID-19 MODERNA 12+ YRS VACCINE 2020-10-17 00:00:00 Completed [facility] SARS-COV-2 COVID-19 MODERNA 12+ YRS VACCINE 2020-10-17 00:00:00 Completed [facility] SARS-COV-2 COVID-19 MODERNA 12+ YRS VACCINE 2020-10-17 00:00:00 Completed [facility] SARS-COV-2 COVID-19 MODERNA 12+ YRS VACCINE 2020-10-17 00:00:00 Completed [facility] SARS-COV-2 COVID-19 MODERNA 12+ YRS VACCINE 2020-10-17 00:00:00 Completed [facility] SARS-COV-2 COVID-19 MODERNA 12+ YRS VACCINE 2020-10-17 00:00:00 Completed [facility] SARS-COV-2 COVID-19 MODERNA 12+ YRS VACCINE 2020-10-17 00:00:00 Completed [facility] SARS-COV-2 COVID-19 MODERNA 12+ YRS VACCINE 2020-10-17 00:00:00 Completed [facility] SARS-COV-2 COVID-19 MODERNA 12+ YRS VACCINE 2020-10-17 00:00:00 Completed [facility] SARS-COV-2 COVID-19 MODERNA 12+ YRS VACCINE 2020-10-17 00:00:00 Completed [facility] SARS-COV-2 COVID-19 MODERNA 12+ YRS VACCINE 2020-10-17 00:00:00 Completed [facility] SARS-COV-2 COVID-19 MODERNA 12+ YRS VACCINE 2020-10-17 00:00:00 Completed [facility] SARS-COV-2 COVID-19 MODERNA 12+ YRS VACCINE 2020-10-17 00:00:00 Completed [facility] SARS-COV-2 COVID-19 MODERNA 12+ YRS VACCINE Unknown Completed [facility] SARS-COV-2 COVID-19 MODERNA 0.25ML BOOSTER VACCINE Unknown Completed [facility] SARS-COV-2 COVID-19 MODERNA 0.25ML BOOSTER VACCINE Unknown Completed [facility] SARS-COV-2 COVID-19 MODERNA 12+ YRS VACCINE Unknown Completed [facility] SARS-COV-2 COVID-19 MODERNA 0.25ML BOOSTER VACCINE Unknown Completed [facility] SARS-COV-2 COVID-19 MODERNA 12+ YRS VACCINE Unknown Completed [facility] SARS-COV-2 COVID-19 MODERNA 0.25ML BOOSTER VACCINE Unknown Completed [facility] SARS-COV-2 COVID-19 MODERNA 12+ YRS VACCINE Unknown Completed [facility] SARS-COV-2 COVID-19 MODERNA 0.25ML BOOSTER VACCINE Unknown Completed [facility] SARS-COV-2 COVID-19 MODERNA 12+ YRS VACCINE Unknown Completed [facility] SARS-COV-2 COVID-19 MODERNA 0.25ML BOOSTER VACCINE Unknown Completed [facility] SARS-COV-2 COVID-19 MODERNA 12+ YRS VACCINE Unknown Completed [facility] SARS-COV-2 COVID-19 MODERNA 0.25ML BOOSTER VACCINE Unknown Completed [facility] SARS-COV-2 COVID-19 MODERNA 12+ YRS VACCINE Unknown Completed [facility] SARS-COV-2 COVID-19 MODERNA 0.25ML BOOSTER VACCINE Unknown Completed [facility] SARS-COV-2 COVID-19 MODERNA 12+ YRS VACCINE Unknown Completed [facility] SARS-COV-2 COVID-19 MODERNA 0.25ML BOOSTER VACCINE Unknown Completed [facility] SARS-COV-2 COVID-19 MODERNA 12+ YRS VACCINE Unknown Completed [facility] SARS-COV-2 COVID-19 MODERNA 12+ YRS VACCINE Unknown Completed [facility] SARS-COV-2 COVID-19 MODERNA 12+ YRS VACCINE Unknown Completed [facility] SARS-COV-2 COVID-19 MODERNA 0.25ML BOOSTER VACCINE Unknown Completed [facility] SARS-COV-2 COVID-19 MODERNA 12+ YRS VACCINE Unknown Completed [facility] SARS-COV-2 COVID-19 MODERNA 0.25ML BOOSTER VACCINE Unknown Completed [facility] [facility]2 COVID-19 MODERNA 12+ YRS VACCINE Unknown Completed [facility] SARS-COV-2 COVID-19 MODERNA 0.25ML BOOSTER VACCINE Unknown Completed [facility] SARS-COV-2 COVID-19 MODERNA 12+ YRS VACCINE Unknown Completed [facility] SARS-COV-2 COVID-19 MODERNA 0.25ML BOOSTER VACCINE Unknown Completed [facility] SARS-COV-2 COVID-19 MODERNA 12+ YRS VACCINE Unknown Completed [facility] SARS-COV-2 COVID-19 MODERNA 0.25ML BOOSTER VACCINE Unknown Completed [facility] SARS-COV-2 COVID-19 MODERNA 12+ YRS VACCINE Unknown Completed [facility] SARS-COV-2 COVID-19 MODERNA 0.25ML BOOSTER VACCINE Unknown Completed [facility] SARS-COV-2 COVID-19 MODERNA 12+ YRS VACCINE Unknown Completed [facility] SARS-COV-2 COVID-19 MODERNA 0.25ML BOOSTER VACCINE Unknown Completed [facility] SARS-COV-2 COVID-19 MODERNA 12+ YRS VACCINE Unknown Completed [facility] SARS-COV-2 COVID-19 MODERNA 0.25ML BOOSTER VACCINE Unknown Completed [facility] SARS-COV-2 COVID-19 MODERNA 12+ YRS VACCINE Unknown Completed [facility] SARS-COV-2 COVID-19 MODERNA 0.25ML BOOSTER VACCINE Unknown Completed [facility] SARS-COV-2 COVID-19 MODERNA 12+ YRS VACCINE Unknown Completed [facility] SARS-COV-2 COVID-19 MODERNA 0.25ML BOOSTER VACCINE Unknown Completed [facility] SARS-COV-2 COVID-19 MODERNA 12+ YRS VACCINE Unknown Completed [facility] SARS-COV-2 COVID-19 MODERNA 0.25ML BOOSTER VACCINE Unknown Completed [facility] SARS-COV-2 COVID-19 MODERNA 12+ YRS VACCINE Unknown Completed [facility] SARS-COV-2 COVID-19 MODERNA 0.25ML BOOSTER VACCINE Unknown Completed [facility] SARS-COV-2 COVID-19 MODERNA 12+ YRS VACCINE Unknown Completed [facility] SARS-COV-2 COVID-19 MODERNA 0.25ML BOOSTER VACCINE Unknown Completed [facility] SARS-COV-2 COVID-19 MODERNA 12+ YRS VACCINE Unknown Completed [facility] SARS-COV-2 COVID-19 MODERNA 0.25ML BOOSTER VACCINE Unknown Completed [facility] SARS-COV-2 COVID-19 MODERNA 12+ YRS VACCINE Unknown Completed [facility] SARS-COV-2 COVID-19 MODERNA 0.25ML BOOSTER VACCINE Unknown Completed [facility] SARS-COV-2 COVID-19 MODERNA 12+ YRS VACCINE Unknown Completed [facility] SARS-COV-2 COVID-19 MODERNA 0.25ML BOOSTER VACCINE Unknown Completed [facility] SARS-COV-2 COVID-19 MODERNA 12+ YRS VACCINE Unknown Completed [facility] SARS-COV-2 COVID-19 MODERNA 0.25ML BOOSTER VACCINE Unknown Completed [facility] SARS-COV-2 COVID-19 MODERNA 12+ YRS VACCINE Unknown Completed [facility] SARS-COV-2 COVID-19 MODERNA 0.25ML BOOSTER VACCINE Unknown Completed [facility] SARS-COV-2 COVID-19 MODERNA 0.25ML BOOSTER VACCINE Unknown Completed [facility] SARS-COV-2 COVID-19 MODERNA 12+ YRS VACCINE Unknown Completed [facility] SARS-COV-2 COVID-19 MODERNA 12+ YRS VACCINE Unknown Completed [facility] SARS-COV-2 COVID-19 MODERNA 0.25ML BOOSTER VACCINE Unknown Completed [facility] SARS-COV-2 COVID-19 MODERNA 12+ YRS VACCINE Unknown Completed [facility] SARS-COV-2 COVID-19 MODERNA 0.25ML BOOSTER VACCINE Unknown Completed [facility] SARS-COV-2 COVID-19 MODERNA 12+ YRS VACCINE Unknown Completed [facility] SARS-COV-2 COVID-19 MODERNA 0.25ML BOOSTER VACCINE Unknown Completed [facility] SARS-COV-2 COVID-19 MODERNA 12+ YRS VACCINE Unknown Completed [facility] SARS-COV-2 COVID-19 MODERNA 0.25ML BOOSTER VACCINE Unknown Completed [facility] SARS-COV-2 COVID-19 MODERNA 12+ YRS VACCINE Unknown Completed [facility] SARS-COV-2 COVID-19 MODERNA 0.25ML BOOSTER VACCINE Unknown Completed [facility] SARS-COV-2 COVID-19 MODERNA 12+ YRS VACCINE Unknown Completed [facility] SARS-COV-2 COVID-19 MODERNA 0.25ML BOOSTER VACCINE Unknown Completed [facility] SARS-COV-2 COVID-19 MODERNA 12+ YRS VACCINE Unknown Completed [facility] SARS-COV-2 COVID-19 MODERNA 0.25ML BOOSTER VACCINE Unknown Completed [facility] SARS-COV-2 COVID-19 MODERNA 12+ YRS VACCINE Unknown Completed [facility] SARS-COV-2 COVID-19 MODERNA 0.25ML BOOSTER VACCINE Unknown Completed [facility] SARS-COV-2 COVID-19 MODERNA 12+ YRS VACCINE Unknown Completed [facility] SARS-COV-2 COVID-19 MODERNA 0.25ML BOOSTER VACCINE Unknown Completed [facility] SARS-COV-2 COVID-19 MODERNA 12+ YRS VACCINE Unknown Completed [facility] SARS-COV-2 COVID-19 MODERNA 0.25ML BOOSTER VACCINE Unknown Completed [facility] SARS-COV-2 COVID-19 MODERNA 12+ YRS VACCINE Unknown Completed [facility] SARS-COV-2 COVID-19 MODERNA 0.25ML BOOSTER VACCINE Unknown Completed [facility] SARS-COV-2 COVID-19 MODERNA 12+ YRS VACCINE Unknown Completed [facility] SARS-COV-2 COVID-19 MODERNA 0.25ML BOOSTER VACCINE Unknown Completed [facility] SARS-COV-2 COVID-19 MODERNA 12+ YRS VACCINE Unknown Completed [facility] SARS-COV-2 COVID-19 MODERNA 0.25ML BOOSTER VACCINE Unknown Completed [facility] SARS-COV-2 COVID-19 MODERNA 0.25ML BOOSTER VACCINE Unknown Completed [facility] SARS-COV-2 COVID-19 MODERNA 12+ YRS VACCINE Unknown Completed [facility] SARS-COV-2 COVID-19 MODERNA 12+ YRS VACCINE Unknown Completed [facility] SARS-COV-2 COVID-19 MODERNA 0.25ML BOOSTER VACCINE Unknown Completed [facility] SARS-COV-2 COVID-19 MODERNA 0.25ML BOOSTER VACCINE Unknown Completed [facility] SARS-COV-2 COVID-19 MODERNA 12+ YRS VACCINE Unknown Completed [facility] SARS-COV-2 COVID-19 MODERNA 12+ YRS VACCINE Unknown Completed [facility] SARS-COV-2 COVID-19 MODERNA 0.25ML BOOSTER VACCINE Unknown Completed [facility] SARS-COV-2 COVID-19 MODERNA 12+ YRS VACCINE Unknown Completed [facility] SARS-COV-2 COVID-19 MODERNA 0.25ML BOOSTER VACCINE Unknown Completed [facility] SARS-COV-2 COVID-19 MODERNA 0.25ML BOOSTER VACCINE Unknown Completed [facility] SARS-COV-2 COVID-19 MODERNA 12+ YRS VACCINE Unknown Completed [facility] SARS-COV-2 COVID-19 MODERNA 12+ YRS VACCINE Unknown Completed [facility] SARS-COV-2 COVID-19 MODERNA 0.25ML BOOSTER VACCINE Unknown Completed [facility] SARS-COV-2 COVID-19 MODERNA 12+ YRS VACCINE Unknown Completed [facility] SARS-COV-2 COVID-19 MODERNA 0.25ML BOOSTER VACCINE Unknown Completed [facility] SARS-COV-2 COVID-19 MODERNA 12+ YRS VACCINE Unknown Completed [facility] SARS-COV-2 COVID-19 MODERNA 0.25ML BOOSTER VACCINE Unknown Completed [facility] SARS-COV-2 COVID-19 MODERNA 12+ YRS VACCINE Unknown Completed [facility] SARS-COV-2 COVID-19 MODERNA 0.25ML BOOSTER VACCINE Unknown Completed [facility] SARS-COV-2 COVID-19 MODERNA 0.25ML BOOSTER VACCINE Unknown Completed [facility] SARS-COV-2 COVID-19 MODERNA 12+ YRS VACCINE Unknown Completed [facility] SARS-COV-2 COVID-19 MODERNA 12+ YRS VACCINE Unknown Completed [facility] SARS-COV-2 COVID-19 MODERNA 0.25ML BOOSTER VACCINE Unknown Completed [facility] SARS-COV-2 COVID-19 MODERNA 0.25ML BOOSTER VACCINE Unknown Completed [facility] SARS-COV-2 COVID-19 MODERNA 12+ YRS VACCINE Unknown Completed [facility] SARS-COV-2 COVID-19 MODERNA 0.25ML BOOSTER VACCINE Unknown Completed [facility] SARS-COV-2 COVID-19 MODERNA 12+ YRS VACCINE Unknown Completed [facility] SARS-COV-2 COVID-19 MODERNA 0.25ML BOOSTER VACCINE Unknown Completed [facility] SARS-COV-2 COVID-19 MODERNA 12+ YRS VACCINE Unknown Completed [facility] SARS-COV-2 COVID-19 MODERNA 12+ YRS VACCINE Unknown Completed [facility] SARS-COV-2 COVID-19 MODERNA 0.25ML BOOSTER VACCINE Unknown Completed [facility] SARS-COV-2 COVID-19 MODERNA 0.25ML BOOSTER VACCINE Unknown Completed [facility] SARS-COV-2 COVID 19 ALLY SUCROSE VACCINE 12+, , 0.3 ML (30 MCG), IM PFIZER (TRAN TOP) Unknown Completed [facility] SARS-COV-2 COVID-19 MODERNA 12+ YRS VACCINE Unknown Completed [facility] SARS-COV-2 COVID-19 MODERNA 0.25ML BOOSTER VACCINE Unknown Completed [facility] SARS-COV-2 COVID 19 ALLY SUCROSE VACCINE 12, , 0.3 ML (30 MCG), IM PFIZER (TRAN TOP) Unknown Completed [facility] SARS-COV-2 COVID-19 MODERNA 12+ YRS VACCINE Unknown Completed [facility] SARS-COV-2 COVID-19 MODERNA 12+ YRS VACCINE Unknown Completed [facility] SARS-COV-2 COVID-19 MODERNA 0.25ML BOOSTER VACCINE Unknown Completed [facility] SARS-COV-2 COVID 19 ALLY SUCROSE VACCINE , , 0.3 ML (30 MCG), IM PFIZER (TRAN TOP) Unknown Completed [facility] SARS-COV-2 COVID-19 MODERNA 0.25ML BOOSTER VACCINE Unknown Completed [facility] SARS-COV-2 COVID 19 ALLY SUCROSE VACCINE 12, , 0.3 ML (30 MCG), IM PFIZER (TRAN TOP) Unknown Completed [facility] SARS-COV-2 COVID-19 MODERNA 12+ YRS VACCINE Unknown Completed [facility] SARS-COV-2 COVID-19 MODERNA 0.25ML BOOSTER VACCINE Unknown Completed [facility] SARS-COV-2 COVID 19 ALLY SUCROSE VACCINE 12, , 0.3 ML (30 MCG), IM PFIZER (TRAN TOP) Unknown Completed [facility] SARS-COV-2 COVID-19 MODERNA 12+ YRS VACCINE Unknown Completed [facility] SARS-COV-2 COVID-19 MODERNA 0.25ML BOOSTER VACCINE Unknown Completed [facility] SARS-COV-2 COVID 19 ALLY SUCROSE VACCINE 12+, [id number], 0.3 ML (30 MCG), IM PFIZER (TRAN TOP) Unknown Completed [facility] SARS-COV-2 COVID-19 MODERNA 12+ YRS VACCINE Unknown Completed [facility] SARS-COV-2 COVID-19 MODERNA 12+ YRS VACCINE Unknown Completed [facility] SARS-COV-2 COVID-19 MODERNA 0.25ML BOOSTER VACCINE Unknown Completed [facility] SARS-COV-2 COVID 19 ALLY SUCROSE VACCINE , , 0.3 ML (30 MCG), IM PFIZER (TRAN TOP) Unknown Completed [facility] SARS-COV-2 COVID-19 MODERNA 12+ YRS VACCINE Unknown Completed [facility] SARS-COV-2 COVID-19 MODERNA 0.25ML BOOSTER VACCINE Unknown Completed [facility] SARS-COV-2 COVID 19 ALLY SUCROSE VACCINE 12, , 0.3 ML (30 MCG), IM PFIZER (TRAN TOP) Unknown Completed [facility] SARS-COV-2 COVID-19 MODERNA 12+ YRS VACCINE Unknown Completed [facility] SARS-COV-2 COVID-19 MODERNA 0.25ML BOOSTER VACCINE Unknown Completed [facility] SARS-COV-2 COVID 19 ALLY SUCROSE VACCINE 12, , 0.3 ML (30 MCG), IM PFIZER (TRAN TOP) Unknown Completed [facility] SARS-COV-2 COVID-19 MODERNA 12+ YRS VACCINE Unknown Completed [facility] SARS-COV-2 COVID-19 MODERNA 0.25ML BOOSTER VACCINE Unknown Completed [facility] SARS-COV-2 COVID 19 ALLY SUCROSE VACCINE 12+, , 0.3 ML (30 MCG), IM PFIZER (TRAN TOP) Unknown Completed [facility] SARS-COV-2 COVID-19 MODERNA 12+ YRS VACCINE Unknown Completed [facility] SARS-COV-2 COVID-19 MODERNA 0.25ML BOOSTER VACCINE Unknown Completed [facility] SARS-COV-2 COVID 19 ALLY SUCROSE VACCINE 12, , 0.3 ML (30 MCG), IM PFIZER (TRAN TOP) Unknown Completed [facility] SARS-COV-2 COVID-19 MODERNA 12+ YRS VACCINE Unknown Completed [facility] SARS-COV-2 COVID-19 MODERNA 0.25ML BOOSTER VACCINE Unknown Completed [facility] SARS-COV-2 COVID 19 ALLY SUCROSE VACCINE 12, , 0.3 ML (30 MCG), IM PFIZER (TRAN TOP) Unknown Completed [facility] SARS-COV-2 COVID-19 MODERNA 12+ YRS VACCINE Unknown Completed [facility] SARS-COV-2 COVID-19 MODERNA 0.25ML BOOSTER VACCINE Unknown Completed [facility] SARS-COV-2 COVID 19 ALLY SUCROSE VACCINE , , 0.3 ML (30 MCG), IM PFIZER (TRAN TOP) Unknown Completed [facility] SARS-COV-2 COVID-19 MODERNA 12+ YRS VACCINE Unknown Completed [facility] SARS-COV-2 COVID-19 MODERNA 0.25ML BOOSTER VACCINE Unknown Completed [facility] SARS-COV-2 COVID 19 ALLY SUCROSE VACCINE , , 0.3 ML (30 MCG), IM PFIZER (TRAN TOP) Unknown Completed [facility] SARS-COV-2 COVID-19 MODERNA 12+ YRS VACCINE Unknown Completed [facility] SARS-COV-2 COVID-19 MODERNA 0.25ML BOOSTER VACCINE Unknown Completed [facility] SARS-COV-2 COVID 19 ALLY SUCROSE VACCINE , , 0.3 ML (30 MCG), IM PFIZER (TRAN TOP) Unknown Completed [facility] SARS-COV-2 COVID-19 MODERNA 12+ YRS VACCINE Unknown Completed [facility] SARS-COV-2 COVID-19 MODERNA 0.25ML BOOSTER VACCINE Unknown Completed [facility] SARS-COV-2 COVID 19 LALY SUCROSE VACCINE , , 0.3 ML (30 MCG), IM PFIZER (TRAN TOP) Unknown Completed [facility] SARS-COV-2 COVID-19 MODERNA 12+ YRS VACCINE Unknown Completed [facility] SARS-COV-2 COVID-19 MODERNA 0.25ML BOOSTER VACCINE Unknown Completed [facility] SARS-COV-2 COVID 19 ALLY SUCROSE VACCINE 12, , 0.3 ML (30 MCG), IM PFIZER (TRAN TOP) Unknown Completed [facility] SARS-COV-2 COVID-19 MODERNA 12+ YRS VACCINE Unknown Completed [facility] SARS-COV-2 COVID-19 MODERNA 0.25ML BOOSTER VACCINE Unknown Completed [facility] SARS-COV-2 COVID 19 ALLY SUCROSE VACCINE , , 0.3 ML (30 MCG), IM PFIZER (TRAN TOP) Unknown Completed [facility] SARS-COV-2 COVID-19 MODERNA 12+ YRS VACCINE Unknown Completed [facility] SARS-COV-2 COVID-19 MODERNA 0.25ML BOOSTER VACCINE Unknown Completed [facility] SARS-COV-2 COVID 19 ALLY SUCROSE VACCINE , , 0.3 ML (30 MCG), IM PFIZER (TRAN TOP) Unknown Completed [facility] SARS-COV-2 COVID-19 MODERNA 12+ YRS VACCINE Unknown Completed [facility] SARS-COV-2 COVID-19 MODERNA 0.25ML BOOSTER VACCINE Unknown Completed [facility] SARS-COV-2 COVID 19 ALLY SUCROSE VACCINE , , 0.3 ML (30 MCG), IM PFIZER (TRAN TOP) Unknown Completed [facility] SARS-COV-2 COVID-19 MODERNA 12+ YRS VACCINE Unknown Completed [facility] SARS-COV-2 COVID-19 MODERNA 0.25ML BOOSTER VACCINE Unknown Completed [facility] SARS-COV-2 COVID 19 ALLY SUCROSE VACCINE , , 0.3 ML (30 MCG), IM PFIZER (TRAN TOP) Unknown Completed [facility] SARS-COV-2 COVID-19 MODERNA 12+ YRS VACCINE Unknown Completed [facility] SARS-COV-2 COVID-19 MODERNA 0.25ML BOOSTER VACCINE Unknown Completed [facility] SARS-COV-2 COVID 19 ALLY SUCROSE VACCINE 12, , 0.3 ML (30 MCG), IM PFIZER (TRAN TOP) Unknown Completed [facility] SARS-COV-2 COVID-19 MODERNA 12+ YRS VACCINE Unknown Completed [facility] SARS-COV-2 COVID-19 MODERNA 0.25ML BOOSTER VACCINE Unknown Completed [facility] SARS-COV-2 COVID 19 ALLY SUCROSE VACCINE 12+, , 0.3 ML (30 MCG), IM PFIZER (TRAN TOP) Unknown Completed [facility] SARS-COV-2 COVID-19 MODERNA 12+ YRS VACCINE Unknown Completed [facility] SARS-COV-2 COVID-19 MODERNA 0.25ML BOOSTER VACCINE Unknown Completed [facility] SARS-COV-2 COVID 19 ALLY SUCROSE VACCINE , , 0.3 ML (30 MCG), IM PFIZER (TRAN TOP) Unknown Completed [facility] SARS-COV-2 COVID-19 MODERNA 12+ YRS VACCINE Unknown Completed [facility] SARS-COV-2 COVID-19 MODERNA 0.25ML BOOSTER VACCINE Unknown Completed [facility] SARS-COV-2 COVID 19 ALLY SUCROSE VACCINE , , 0.3 ML (30 MCG), IM PFIZER (TRAN TOP) Unknown Completed [facility] SARS-COV-2 COVID-19 MODERNA 12+ YRS VACCINE Unknown Completed [facility] SARS-COV-2 COVID-19 MODERNA 0.25ML BOOSTER VACCINE Unknown Completed [facility] SARS-COV-2 COVID 19 ALLY SUCROSE VACCINE 12, , 0.3 ML (30 MCG), IM PFIZER (TRAN TOP) Unknown Completed [facility] SARS-COV-2 COVID-19 MODERNA 12+ YRS VACCINE Unknown Completed [facility] SARS-COV-2 COVID-19 MODERNA 0.25ML BOOSTER VACCINE Unknown Completed [facility] SARS-COV-2 COVID 19 ALLY SUCROSE VACCINE , , 0.3 ML (30 MCG), IM PFIZER (TRAN TOP) Unknown Completed [facility] SARS-COV-2 COVID-19 MODERNA 12+ YRS VACCINE Unknown Completed [facility] SARS-COV-2 COVID-19 MODERNA 0.25ML BOOSTER VACCINE Unknown Completed [facility] SARS-COV-2 COVID 19 ALLY SUCROSE VACCINE +, , 0.3 ML (30 MCG), IM PFIZER (TRAN TOP) Unknown Completed [facility] SARS-COV-2 COVID-19 MODERNA 12+ YRS VACCINE Unknown Completed [facility] SARS-COV-2 COVID-19 MODERNA 0.25ML BOOSTER VACCINE Unknown Completed [facility] SARS-COV-2 COVID 19 ALLY SUCROSE VACCINE , , 0.3 ML (30 MCG), IM PFIZER (TRAN TOP) Unknown Completed [facility] Vital Signs Vital Name Observation Time Observation Value Comments S ource Systolic blood pressure 2024-03-31 15:36:00 133 mm[Hg] [facility] Diastolic blood pressure 2024-03-31 15:36:00 88 mm[Hg] [facility] Heart rate 2024-03-31 15:33:00 85 /min [facility] Body temperature 2024-03-31 15:33:00 36.78 Jodi [facility] Respiratory rate 2024-03-31 15:33:00 16 /min [facility] Body weight 2024-03-31 15:33:00 117.482 kg [facility] BMI 2024-03-31 15:33:00 41.80 kg/m2 [facility] Oxygen saturation in Arterial blood by Pulse oximetry 2024-03-31 15:33:00 98 /min [facility] Systolic blood pressure 2023-12-04 17:29:00 129 mm[Hg] [facility] Diastolic blood pressure 2023-12-04 17:29:00 93 mm[Hg] [facility] Heart rate 2023-12-04 17:29:00 95 /min [facility] Body temperature 2023-12-04 17:29:00 37.06 J[facility] Respiratory rate 2023-12-04 17:29:00 17 /min [facility] Body weight 2023-12-04 17:29:00 120.067 kg [facility] BMI 2023-12-04 17:29:00 42.72 kg/m2 [facility] Oxygen saturation in Arterial blood by Pulse oximetry 2023-12-04 17:29:00 100 /min [facility] Systolic blood pressure 2023-09-15 18:17:00 123 mm[Hg] [facility] Diastolic blood pressure 2023-09-15 18:17:00 84 mm[Hg] [facility] Heart rate 2023-09-15 18:17:00 84 /min [facility] Body temperature 2023-09-15 18:17:00 37.28 [facility] Respiratory rate 2023-09-15 18:17:00 18 /min [facility] Body height 2023-09-15 18:17:00 167.6 cm [facility] Body weight 2023-09-15 18:17:00 108.863 kg [facility] BMI 2023-09-15 18:17:00 38.74 kg/m2 [facility] Oxygen saturation in Arterial blood by Pulse oximetry 2023-09-15 18:17:00 100 /min [facility] Systolic blood pressure 2023-09-03 13:15:00 117 mm[Hg] [facility] Diastolic blood pressure 2023-09-03 13:15:00 51 mm[Hg] [facility] Heart rate 2023-09-03 13:15:00 72 /min [facility] Body temperature 2023-09-03 13:15:00 36.89 [facility] Respiratory rate 2023-09-03 13:15:00 17 /min [facility] Oxygen saturation in Arterial blood by Pulse oximetry 2023-09-03 13:15:00 98 /min [facility] Systolic blood pressure 2023-09-02 19:33:00 122 mm[Hg] [facility] Diastolic blood pressure 2023-09-02 19:33:00 92 mm[Hg] [facility] Heart rate 2023-09-02 19:33:00 81 /min [facility] Body temperature 2023-09-02 19:33:00 36.72 [facility] Respiratory rate 2023-09-02 19:33:00 21 /min [facility] Oxygen saturation in Arterial blood by Pulse oximetry 2023-09-02 19:33:00 100 /min [facility] Systolic blood pressure 2023-09-01 15:11:00 126 mm[Hg] [facility] Diastolic blood pressure 2023-09-01 15:11:00 89 mm[Hg] [facility] Heart rate 2023-09-01 15:11:00 98 /min [facility] Body temperature 2023-09-01 15:11:00 36.39 [facility] Body height 2023-09-01 15:11:00 152.4 cm [facility] Body weight 2023-09-01 15:11:00 119.75 kg [facility] BMI 2023-09-01 15:11:00 51.56 kg/m2 [facility] Oxygen saturation in Arterial blood by Pulse oximetry 2023-09-01 15:11:00 98 /min [facility] Systolic blood pressure 2023-08-26 19:07:00 140 mm[Hg] [facility] Diastolic blood pressure 2023-08-26 19:07:00 88 mm[Hg] [facility] Heart rate 2023-08-26 19:07:00 86 /min [facility] Body height 2023-08-26 19:07:00 165.1 cm [facility] Body weight 2023-08-26 19:07:00 120.385 kg [facility] BMI 2023-08-26 19:07:00 44.16 kg/m2 [facility] Oxygen saturation in Arterial blood by Pulse oximetry 2023-08-26 19:07:00 99 /min [facility] Systolic blood pressure 2023-08-19 21:01:00 132 mm[Hg] [facility] Diastolic blood pressure 2023-08-19 21:01:00 85 mm[Hg] [facility] Heart rate 2023-08-19 21:01:00 90 /min [facility] Respiratory rate 2023-08-19 21:01:00 18 /min [facility] Body height 2023-08-19 21:01:00 166.4 cm [facility] Body weight 2023-08-19 21:01:00 120.657 kg [facility] BMI 2023-08-19 21:01:00 43.59 kg/m2 [facility] Oxygen saturation in Arterial blood by Pulse oximetry 2023-08-19 21:01:00 97 /min [facility] Systolic blood pressure 2023-08-13 20:58:00 131 mm[Hg] [facility] Diastolic blood pressure 2023-08-13 20:58:00 75 mm[Hg] [facility] Heart rate 2023-08-13 20:58:00 81 /min [facility] Body temperature 2023-08-13 20:58:00 36.94 [facility] Respiratory rate 2023-08-13 20:58:00 18 /min [facility] Body height 2023-08-13 20:58:00 165.1 cm [facility] Body weight 2023-08-13 20:58:00 122.018 kg [facility] BMI 2023-08-13 20:58:00 44.76 kg/m2 [facility] Systolic blood pressure 2023-07-30 21:35:00 110 mm[Hg] [facility] Diastolic blood pressure 2023-07-30 21:35:00 78 mm[Hg] [facility] Heart rate 2023-07-30 21:35:00 91 /min [facility] Body temperature 2023-07-30 21:35:00 37 J[facility] Body height 2023-07-30 21:35:00 165.1 cm [facility] Body weight 2023-07-30 21:35:00 119.75 kg [facility] BMI 2023-07-30 21:35:00 43.93 kg/m2 [facility] Systolic blood pressure 2023-07-23 14:15:00 135 mm[Hg] [facility] Diastolic blood pressure 2023-07-23 14:15:00 86 mm[Hg] [facility] Heart rate 2023-07-23 14:15:00 112 /min [facility] Body temperature 2023-07-23 14:15:00 36.22 [facility] Body height 2023-07-23 14:15:00 165.1 cm [facility] Body weight 2023-07-23 14:15:00 120.112 kg [facility] BMI 2023-07-23 14:15:00 44.07 kg/m2 [facility] Systolic blood pressure 2023-07-09 21:45:00 114 mm[Hg] [facility] Diastolic blood pressure 2023-07-09 21:45:00 79 mm[Hg] [facility] Heart rate 2023-07-09 21:45:00 113 /min [facility] Body temperature 2023-07-09 21:45:00 37.11 [facility] Respiratory rate 2023-07-09 21:45:00 18 /min [facility] Body height 2023-07-09 21:45:00 165.1 cm [facility] Body weight 2023-07-09 21:45:00 119.886 kg [facility] BMI 2023-07-09 21:45:00 43.98 kg/m2 [facility] Oxygen saturation in Arterial blood by Pulse oximetry 2023-07-09 21:45:00 99 /min [facility] Systolic blood pressure 2023-07-01 18:16:00 129 mm[Hg] [facility] Diastolic blood pressure 2023-07-01 18:16:00 83 mm[Hg] [facility] Heart rate 2023-07-01 18:16:00 86 /min [facility] Body temperature 2023-07-01 18:16:00 36.11 Jodi [facility] Body height 2023-07-01 18:16:00 167.6 cm [facility] Body weight 2023-07-01 18:16:00 117.935 kg [facility] BMI 2023-07-01 18:16:00 41.97 kg/m2 [facility] Oxygen saturation in Arterial blood by Pulse oximetry 2023-07-01 18:16:00 98 /min [facility] Systolic blood pressure 2023-06-29 08:50:00 120 mm[Hg] [facility] Diastolic blood pressure 2023-06-29 08:50:00 83 mm[Hg] [facility] Heart rate 2023-06-29 08:50:00 79 /min [facility] Body temperature 2023-06-29 08:50:00 36.56 Jodi [facility] Respiratory rate 2023-06-29 08:50:00 16 /min [facility] Oxygen saturation in Arterial blood by Pulse oximetry 2023-06-29 08:50:00 100 /min [facility] Body height 2023-06-29 04:06:00 167.6 cm [facility] Body weight 2023-06-29 04:06:00 99.791 kg [facility] BMI 2023-06-29 04:06:00 35.51 kg/m2 [facility] Systolic blood pressure 2023-06-11 19:00:00 112 mm[Hg] manual [facility] Diastolic blood pressure 2023-06-11 19:00:00 40 mm[Hg] manual [facility] Heart rate 2023-06-11 19:00:00 95 /min [facility] Respiratory rate 2023-06-11 19:00:00 20 /min [facility] Body weight 2023-06-11 19:00:00 117.391 kg [facility] BMI 2023-06-11 19:00:00 41.77 kg/m2 [facility] Oxygen saturation in Arterial blood by Pulse oximetry 2023-06-11 19:00:00 100 /min arrived on RA; 6MW on RA [facility] Systolic blood pressure 2023-05-22 20:55:00 145 mm[Hg] [facility] Diastolic blood pressure 2023-05-22 20:55:00 84 mm[Hg] [facility] Heart rate 2023-05-22 20:54:00 100 /min [facility] Body temperature 2023-05-22 20:54:00 36.78 Jodi [facility] Respiratory rate 2023-05-22 20:54:00 17 /min [facility] Body height 2023-05-22 20:54:00 167.6 cm [facility] Body weight 2023-05-22 20:54:00 118.343 kg [facility] BMI 2023-05-22 20:54:00 42.11 kg/m2 [facility] Oxygen saturation in Arterial blood by Pulse oximetry 2023-05-22 20:54:00 98 /min [facility] Systolic blood pressure 2023-05-13 16:03:00 123 mm[Hg] [facility] Diastolic blood pressure 2023-05-13 16:03:00 85 mm[Hg] [facility] Heart rate 2023-05-13 16:03:00 84 /min [facility] Respiratory rate 2023-05-13 16:03:00 19 /min [facility] Body height 2023-05-13 16:03:00 167.6 cm [facility] Body weight 2023-05-13 16:03:00 115.758 kg [facility] BMI 2023-05-13 16:03:00 41.19 kg/m2 [facility] Oxygen saturation in Arterial blood by Pulse oximetry 2023-05-13 16:03:00 98 /min [facility] Systolic blood pressure 2023-05-13 14:12:00 130 mm[Hg] [facility] Diastolic blood pressure 2023-05-13 14:12:00 85 mm[Hg] [facility] Heart rate 2023-05-13 14:12:00 118 /min [facility] Body temperature 2023-05-13 14:10:00 37 Jodi [facility] Respiratory rate 2023-05-13 14:10:00 22 /min [facility] Body height 2023-05-13 14:10:00 167.6 cm [facility] Body weight 2023-05-13 14:10:00 115.803 kg [facility] BMI 2023-05-13 14:10:00 41.21 kg/m2 [facility] Oxygen saturation in Arterial blood by Pulse oximetry 2023-05-13 14:10:00 96 /min [facility] Systolic blood pressure 2023-04-29 20:37:00 121 mm[Hg] [facility] Diastolic blood pressure 2023-04-29 20:37:00 87 mm[Hg] [facility] Heart rate 2023-04-29 20:37:00 108 /min [facility] Respiratory rate 2023-04-29 20:37:00 18 /min [facility] Body height 2023-04-29 20:37:00 167.6 cm [facility] Body weight 2023-04-29 20:37:00 114.306 kg [facility] BMI 2023-04-29 20:37:00 40.67 kg/m2 [facility] Systolic blood pressure 2023-04-03 20:45:00 124 mm[Hg] [facility] Diastolic blood pressure 2023-04-03 20:45:00 88 mm[Hg] [facility] Heart rate 2023-04-03 20:45:00 99 /min [facility] Body temperature 2023-04-03 20:45:00 37.28 Jodi [facility] Respiratory rate 2023-04-03 20:45:00 15 /min [facility] Body height 2023-04-03 20:45:00 167.6 cm [facility] Body weight 2023-04-03 20:45:00 109.09 kg [facility] BMI 2023-04-03 20:45:00 38.82 kg/m2 [facility] Oxygen saturation in Arterial blood by Pulse oximetry 2023-04-03 20:45:00 98 /min [facility] Systolic blood pressure 2023-04-01 18:33:00 130 mm[Hg] [facility] Diastolic blood pressure 2023-04-01 18:33:00 80 mm[Hg] [facility] Heart rate 2023-04-01 18:33:00 87 /min [facility] Body temperature 2023-04-01 18:33:00 36.67 Jodi [facility] Respiratory rate 2023-04-01 18:33:00 20 /min [facility] Body height 2023-04-01 18:33:00 167.6 cm [facility] Body weight 2023-04-01 18:33:00 108.455 kg [facility] BMI 2023-04-01 18:33:00 38.59 kg/m2 [facility] Oxygen saturation in Arterial blood by Pulse oximetry 2023-04-01 18:33:00 99 /min [facility] Systolic blood pressure 2023-04-01 18:33:00 130 mm[Hg] [facility] Diastolic blood pressure 2023-04-01 18:33:00 80 mm[Hg] [facility] Heart rate 2023-04-01 18:33:00 87 /min [facility] Body temperature 2023-04-01 18:33:00 36.67 Jodi [facility] Respiratory rate 2023-04-01 18:33:00 20 /min [facility] Body height 2023-04-01 18:33:00 167.6 cm [facility] Body weight 2023-04-01 18:33:00 108.455 kg [facility] BMI 2023-04-01 18:33:00 38.59 kg/m2 [facility] Oxygen saturation in Arterial blood by Pulse oximetry 2023-04-01 18:33:00 99 /min [facility] Systolic blood pressure 2023-03-30 18:11:00 118 mm[Hg] [facility] Diastolic blood pressure 2023-03-30 18:11:00 83 mm[Hg] [facility] Heart rate 2023-03-30 18:11:00 94 /min [facility] Respiratory rate 2023-03-30 18:11:00 18 /min [facility] Body weight 2023-03-30 18:11:00 108.773 kg [facility] BMI 2023-03-30 18:11:00 39.30 kg/m2 [facility] Systolic blood pressure 2023-03-20 21:26:00 115 mm[Hg] [facility] Diastolic blood pressure 2023-03-20 21:26:00 78 mm[Hg] [facility] Heart rate 2023-03-20 21:26:00 86 /min [facility] Body temperature 2023-03-20 21:26:00 37.17 Jodi [facility] Respiratory rate 2023-03-20 21:26:00 20 /min [facility] Body weight 2023-03-20 21:26:00 109.861 kg [facility] BMI 2023-03-20 21:26:00 39.69 kg/m2 [facility] Oxygen saturation in Arterial blood by Pulse oximetry 2023-03-20 21:26:00 96 /min [facility] Systolic blood pressure 2023-02-02 20:17:00 134 mm[Hg] [facility] Diastolic blood pressure 2023-02-02 20:17:00 85 mm[Hg] [facility] Heart rate 2023-02-02 20:17:00 73 /min [facility] Body temperature 2023-02-02 20:17:00 36.89 Jodi [facility] Respiratory rate 2023-02-02 20:17:00 18 /min [facility] Body height 2023-02-02 20:17:00 166.4 cm [facility] Body weight 2023-02-02 20:17:00 109.77 kg [facility] BMI 2023-02-02 20:17:00 39.66 kg/m2 [facility] Systolic blood pressure 2022-08-05 00:16:00 126 mm[Hg] [facility] Diastolic blood pressure 2022-08-05 00:16:00 85 mm[Hg] [facility] Heart rate 2022-08-05 00:16:00 98 /min [facility] Body temperature 2022-08-05 00:16:00 37.28 Jodi [facility] Respiratory rate 2022-08-05 00:16:00 20 /min [facility] Body height 2022-08-05 00:16:00 167.6 cm [facility] Body weight 2022-08-05 00:16:00 99.791 kg [facility] BMI 2022-08-05 00:16:00 35.51 kg/m2 [facility] Oxygen saturation in Arterial blood by Pulse oximetry 2022-08-05 00:16:00 100 /min [facility] Systolic blood pressure 2022-05-12 14:38:00 153 mm[Hg] [facility] Diastolic blood pressure 2022-05-12 14:38:00 102 mm[Hg] [facility] Heart rate 2022-05-12 14:38:00 79 /min [facility] Body temperature 2022-05-12 14:38:00 36.17 Jodi [facility] Respiratory rate 2022-05-12 14:38:00 18 /min [facility] Body weight 2022-05-12 14:38:00 97.523 kg [facility] BMI 2022-05-12 14:38:00 34.70 kg/m2 [facility] Oxygen saturation in Arterial blood by Pulse oximetry 2022-05-12 14:38:00 100 /min [facility] Systolic blood pressure 2022-03-24 14:09:00 145 mm[Hg] [facility] Diastolic blood pressure 2022-03-24 14:09:00 108 mm[Hg] [facility] Heart rate 2022-03-24 14:09:00 90 /min [facility] Body temperature 2022-03-24 14:09:00 37.28 Jodi [facility] Respiratory rate 2022-03-24 14:09:00 14 /min [facility] Body height 2022-03-24 14:09:00 167.6 cm [facility] Body weight 2022-03-24 14:09:00 95.255 kg [facility] BMI 2022-03-24 14:09:00 33.89 kg/m2 [facility] Oxygen saturation in Arterial blood by Pulse oximetry 2022-03-24 14:09:00 100 /min [facility] Systolic blood pressure 2022-02-18 02:00:00 147 mm[Hg] [facility] Diastolic blood pressure 2022-02-18 02:00:00 95 mm[Hg] [facility] Heart rate 2022-02-18 02:00:00 78 /min [facility] Respiratory rate 2022-02-18 02:00:00 18 /min [facility] Oxygen saturation in Arterial blood by Pulse oximetry 2022-02-18 02:00:00 99 /min [facility] Body temperature 2022-02-17 23:30:00 37.06 Jodi [facility] Body weight 2022-02-17 23:30:00 98.158 kg [facility] BMI 2022-02-17 23:30:00 34.93 kg/m2 [facility] Systolic blood pressure 2022-02-17 23:10:00 146 mm[Hg] [facility] Diastolic blood pressure 2022-02-17 23:10:00 101 mm[Hg] [facility] Heart rate 2022-02-17 23:10:00 67 /min [facility] Body temperature 2022-02-17 23:10:00 37.56 Jodi [facility] Respiratory rate 2022-02-17 23:10:00 18 /min [facility] Body height 2022-02-17 23:10:00 167.6 cm [facility] Body weight 2022-02-17 23:10:00 95.255 kg [facility] BMI 2022-02-17 23:10:00 33.89 kg/m2 [facility] Oxygen saturation in Arterial blood by Pulse oximetry 2022-02-17 23:10:00 100 /min [facility] Systolic blood pressure 2022-01-26 18:37:00 120 mm[Hg] [facility] Diastolic blood pressure 2022-01-26 18:37:00 77 mm[Hg] [facility] Heart rate 2022-01-26 18:36:00 88 /min [facility] Body temperature 2022-01-26 18:36:00 36.67 Jodi [facility] Respiratory rate 2022-01-26 18:36:00 18 /min [facility] Body height 2022-01-26 18:36:00 165.1 cm [facility] Body weight 2022-01-26 18:36:00 96.616 kg [facility] BMI 2022-01-26 18:36:00 35.45 kg/m2 [facility] Oxygen saturation in Arterial blood by Pulse oximetry 2022-01-26 18:36:00 100 /min [facility] Systolic blood pressure 2021-11-24 09:19:00 125 mm[Hg] [facility] Diastolic blood pressure 2021-11-24 09:19:00 81 mm[Hg] [facility] Heart rate 2021-11-24 09:19:00 67 /min [facility] Respiratory rate 2021-11-24 09:19:00 19 /min [facility] Oxygen saturation in Arterial blood by Pulse oximetry 2021-11-24 09:19:00 99 /min [facility] Body temperature 2021-11-24 03:00:00 36.78 Jodi [facility] Body height 2021-11-24 03:00:00 165.1 cm [facility] Body weight 2021-11-24 03:00:00 97.523 kg [facility] BMI 2021-11-24 03:00:00 35.78 kg/m2 [facility] Systolic blood pressure 2021-11-21 21:13:00 127 mm[Hg] [facility] Diastolic blood pressure 2021-11-21 21:13:00 91 mm[Hg] [facility] Heart rate 2021-11-21 20:50:00 81 /min [facility] Body temperature 2021-11-21 20:50:00 37 Jodi [facility] Respiratory rate 2021-11-21 20:50:00 18 /min [facility] Body height 2021-11-21 20:50:00 165.1 cm [facility] Body weight 2021-11-21 20:50:00 97.523 kg [facility] BMI 2021-11-21 20:50:00 35.78 kg/m2 [facility] Procedures Procedure Date / Time Performed Performing Clinician Source POCT MOLECULAR STREP 2024-03-31 15:37:00 Unknown, Wily echevarria [facility] POCT SARS-COV-2 ANTIGEN (BINAX NOW) 2024-03-31 00:00:00 Sergo Viera [facility] POCT SARS-COV-2 ANTIGEN (BINAX NOW) 2023-12-04 17:31:00 Malena Garcia [facility] POCT MOLECULAR STREP 2023-12-04 17:24:00 Flaco, Wily echevarria [facility] POCT SARS-COV-2 ANTIGEN (BINAX NOW) 2023-09-15 18:27:00 Malena Garcia [facility] BASIC METABOLIC PANEL (NA, K, CL, CO2, GLUCOSE, BUN, CREATININE, CA) 2023-09-03 10:22:00 Jarrod Mercado [facility] CBC WITH DIFF 2023-09-03 10:22:00 Jarrod Mercado [facility] BASIC METABOLIC PANEL (NA, K, CL, CO2, GLUCOSE, BUN, CREATININE, CA) 2023-09-03 10:22:00 Jarrod Mercado [facility] CBC WITH DIFF 2023-09-03 10:22:00 Jarrod Mercado [facility] LAPAROSCOPIC TOTAL ABDOMINAL HYSTERECTOMY 2023-09-02 21:56:00 Jarrod Mercado [facility] CYSTOSCOPY 2023-09-02 21:56:00 Jarrod Mercado [facility] SALPINGECTOMY 2023-09-02 21:56:00 Jarrod Mercado [facility] LAPAROSCOPIC TOTAL ABDOMINAL HYSTERECTOMY 2023-09-02 21:56:00 Jarrod Mercado [facility] CYSTOSCOPY 2023-09-02 21:56:00 Jarrod Mercado [facility] SALPINGECTOMY 2023-09-02 21:56:00 Jarrod Mercado [facility] DAY SURGERY - ADC 2023-09-02 06:01:00 Doctor Shirley ssigned, [place] TOTAL BETA HCG ASSAY 2023-09-01 14:50:00 Jarrod Mercado [facility] INSURANCE CORRESPONDENCE 2023-08-25 06:01:00 Doc tor Unassigned, [place] [facility] INSURANCE CORRESPONDENCE 2023-08-21 06:01:00 Doc tor Unassigned, [place] [facility] CBC WITH DIFF 2023-08-19 23:12:00 Cheikh Boyle [facility] SARS-COV-2 COVID 19 ALLY SUCROSE VACCINE 12+, , 0.3 ML (30 MCG), IM PFIZER (TRAN TOP) 2023-08-19 22:08:51 Cheikh Boyle [facility] DSU PRE-OP 2023-08-14 06:01:00 Doctor Unass igned, [facility] US PELVIS COMPLETE WITH TRANSVAGINAL 2023-07-30 16:55:00 MercadoJarrod [facility] POCT TEST 2023-07-30 00:00:00 MercadoJarrod [facility] POCT TEST 2023-07-23 00:00:00 Jarrod Mercado [facility] POCT MOLECULAR STREP 2023-07-09 21:56:00 Unknown, Atte wale [facility] CBC WITH DIFF 2023-07-01 19:02:00 Taiwo Wharton [facility] PROTHROMBIN TIME / INR 2023-07-01 19:02:00 Silverio Wharton [facility] CT ABDOMEN PELVIS W CONTRAST 2023-06-29 07:44:14 Arianna Whitmore [facility] URINALYSIS 2023-06-29 05:56:00 Arianna Whitmore [facility] LIPASE 2023-06-29 05:51:00 Arianna Whitmore [facility] TROPONIN I 2023-06-29 05:51:00 Arianna Whitmore [facility] COMP. METABOLIC PANEL (37331) 2023-06-29 05:51:00 Arianna Whitmore [facility] CBC WITH DIFF 2023-06-29 05:51:00 Arianna Whitmore [facility] D-DIMER 2023-06-29 05:51:00 Arianna Whitmore [facility] RAPID INFLUENZA A/B 2023-06-29 05:51:00 Arianna Whitmore [facility] COVID-19 (ID NOW RAPID TESTING) 2023-06-29 05:51:00 Arianna Whitmore [facility] ASSIGNMENT OF BENEFITS 2023-06-29 04:31:47 Docto r Unassigned, [facility] CONSENT/REFUSAL FOR DIAGNOSIS AND TREATMENT 2023-06-29 03:52:07 Doctor Unassigned, [facility] US LIVER 2023-06-15 15:16:11 Cheikh Boyle [facility] CONSENT/REFUSAL FOR DIAGNOSIS AND TREATMENT 2023-06-11 05:01:00 Doctor Unassigned, [facility] NO SHOW OR MISSED APPOINTMENT POLICY ACKNOWLEDGEMENT 2023-06-11 05:01:00 Doctor Unassigned, [facility] POCT MOLECULAR FLU 2023-05-22 21:09:00 Unknown, Attend ing [facility] POCT SARS-COV-2 ANTIGEN (BINAX NOW) 2023-05-22 21:01:00 Sera Worthy [facility] INSURANCE CORRESPONDENCE 2023-05-18 05:01:00 Doc tor Unassigned, [facility] TRANSTHORACIC ECHO (TTE) COMPLETE 2023-05-15 15:04:27 Nicanor Hall [facility] INSURANCE CORRESPONDENCE 2023-05-13 05:01:00 Doc tor Unassigned, [facility] EXTERNAL PROVIDER RECORDS 2023-04-14 05:01:00 Do ctor Unassigned, [facility] POCT SARS-COV-2 ANTIGEN (BINAX NOW) 2023-04-03 20:55:00 Sera Worthy [facility] POCT SARS-COV-2 ANTIGEN (BINAX NOW) 2023-03-20 21:30:00 Sera Worthy [facility] ASSIGNMENT OF BENEFITS 2023-02-02 20:09:30 Docto r Unassigned, [facility] POCT TEST 2023-02-02 00:00:00 Ernesto Smith [facility] XR HAND 3+ VW LEFT 2022-08-05 00:55:28 Nii Abraham [facility] CONSENT/REFUSAL FOR DIAGNOSIS AND TREATMENT 2022-08-04 23:55:33 Doctor Unassigned, [place] XR FINGERS 2 VW LEFT 2022-05-12 15:57:11 Ciarra Frank [facility] XR WRIST 3+ VW LEFT 2022-05-12 15:57:11 Ciarra Frank [facility] CONSENT/REFUSAL FOR DIAGNOSIS AND TREATMENT 2022-05-12 14:32:26 Doctor Unassigned, [place] CONSENT/REFUSAL FOR DIAGNOSIS AND TREATMENT 2022-03-24 14:06:23 Doctor Unassigned, [place] [facility] US PELVIS COMPLETE NON-OB 2022-02-18 01:07:39 Natalie Almendarez [facility] CT ABDOMEN PELVIS W CONTRAST 2022-02-18 00:35:22 Natalie Almendarez [facility] POCT TEST 2022-02-18 00:22:00 Natalie Almendarez [facility] TEST, SERUM 2022-02-18 00:21:00 Terry Almendarez [facility] COMP. METABOLIC PANEL (74449) 2022-02-18 00:21:00 Natalie Almendarez [facility] CBC WITH DIFF 2022-02-18 00:21:00 Natalie Almendarez [facility] URINALYSIS 2022-02-18 00:21:00 Natalie Almendarez [facility] CONSENT/REFUSAL FOR DIAGNOSIS AND TREATMENT 2022-02-17 23:21:20 Doctor Unassigned, [place] [facility] SARS-COV-2 COVID-19 VACCINE BOOSTER,0.25ML,IM (MODERNA) 2022-01-23 19:36:51 Doctor Unassigned, [place] [facility] US OVARY TORSION 2021-11-24 08:01:43 Arianna Whitmore [facility] CT ABDOMEN PELVIS W CONTRAST 2021-11-24 04:24:09 Arianna Whitmore [facility] POCT TEST 2021-11-24 03:18:00 Arianna Whitmore [facility] LIPASE 2021-11-24 03:17:00 Arianna Whitmore [facility] COMP. METABOLIC PANEL ([id number]) 2021-11-24 03:17:00 Arianna Whitmore [facility] CBC WITH DIFF 2021-11-24 03:17:00 Arianna Whitmore [facility] URINALYSIS 2021-11-24 03:17:00 Arianna Whitmore [facility] NOTICE OF PRIVACY PRACTICES 2021-11-24 02:50:34 Doctor Unassigned, [place] [facility] CONSENT/REFUSAL FOR DIAGNOSIS AND TREATMENT 2021-11-24 02:50:13 Doctor Unassigned, [place] [facility] Encounters Start Date/Time End Date/Time Encounter Type Admission Type Attending [facility] Care Facility Care Department Encounter ID Source 2021-06-10 21:56:33 Emergency [facility] [id number] [facility] 2021-06-10 11:43:59 Emergency [facility] [id number] [facility] 2021-06-10 11:18:46 Emergency [facility] [id number] [facility] 2021-06-10 09:58:36 Emergency [facility] [id number] [facility] 2021-06-09 00:40:14 Emergency [facility] [id number] [facility] 2021-06-08 04:28:04 Emergency [facility] [id number] [facility] 2021-06-07 16:30:58 Emergency [facility] [id number] [facility] 2021-06-06 17:46:29 Emergency [facility] [id number] [facility] 2024-11-02 14:00:00 2024-11-02 14:00:00 Outpatient R JARROD MERCADO VIEN [facility] [id number] [facility] 2024-04-06 13:40:00 2024-04-06 13:40:00 Outpatient RU ARCHULETA [facility] [id number] [facility] 2024-03-31 10:20:00 2024-03-31 10:40:00 Urgent Care Sergo Viera Unknown, Attending [facility] [id number] [id number] [id number] [facility] 2024-03-31 10:20:00 2024-03-31 10:20:00 Outpatient R SERGO VIERA [facility] [id number] [facility] 2024-03-09 00:00:00 2024-03-10 09:58:48 Refill Araceli Cheikh [facility] 1.20.114 350.1.13.10 4.2.7.2.686 [id number] [facility] 2024-03-09 00:00:00 2024-03-09 19:55:42 Refill SravanfrancoisFrannie castillo [facility] 1.0.114 350.1.13.10 4.2.7.2.686 [id number] [facility] 2024-03-03 10:30:00 2024-03-03 10:30:00 Outpatient R JARROD MERCADO VIEN [facility] [id number] [facility] 2024-02-08 10:30:00 2024-02-08 10:30:00 Outpatient R TAIWO ALEGRIA [facility] [id number] [facility] 2023-12-28 00:00:00 2024-01-30 18:21:31 Patient Secure Msg Doctor Unassigned, [place] [facility] ..114 350.1.13.10 4.2.7.2.686 [id number] [facility] 2023-11-28 00:00:00 2024-01-02 18:09:38 Patient Secure Msg Jan Estrada [facility] 1.0.114 350.1.13.10 [id number] [id number] [facility] 2023-12-22 00:00:00 2023-12-22 09:17:07 Telephone Promise Mullen [facility] 1.0.114 350.1.13.10 4.2.7.2.686 [id number] [facility] 2023-12-10 13:00:00 2023-12-10 13:00:00 Outpatient R JENNIEGEORGETTECHEIKH [facility] [id number] [facility] 2023-12-04 12:20:00 2023-12-04 13:14:26 Outpatient R SERGO VIERA [facility] [id number] [facility] 2023-12-04 12:20:00 2023-12-04 12:40:00 Urgent Care Sergo Viera Unknown, Attending [facility] 1..840.114 350.1.13.10 4.2.7.2.686 [id number] [facility] 2023-10-19 00:00:00 2023-10-19 00:00:00 Telephone Jarrod Mercado [facility] [facility] 1..840.114 350.1.13.10 4.2.7.2.686 [id number] 134 [id number] [facility] 2023-09-30 10:45:00 2023-09-30 10:45:00 Outpatient R JARROD MERCADO [facility] [id number] [facility] 2023-09-24 00:00:00 2023-09-24 00:00:00 Telephone Promise Mullen [facility] 1..840.114 350.1.13.10 4.2.7.2.686 [id number] 072 [id number] [facility] 2023-09-17 13:15:00 2023-09-17 13:30:00 Office Visit Jarrod Mercado [facility] BUILD[facility] 1.2.840.114 350.1.13.10 4.2.7.2.686 [id number] [facility] 2023-09-17 13:15:00 2023-09-17 13:15:00 Outpatient R JARROD MERCADO [facility] [id number] [facility] 2023-09-16 00:00:00 2023-09-16 00:00:00 Telephone Malena Garcia [facility] 1..840.114 350.1.13.10 4.2.7.2.686 [id number] [facility] 2023-09-15 12:00:00 2023-09-15 13:07:33 Outpatient R MALENA GARCIA [facility] [id number] [facility] 2023-09-15 12:00:00 2023-09-15 12:20:00 Urgent Care Malena Garcia Unknown, Attending [facility]EL DANIEL [facility] 1..840.114 350.1.13.10 4.2.7.2.686 [id number] 370 [id number] [facility] 2023-09-08 00:00:00 2023-09-08 00:00:00 Case Management Jarrod Mercado [facility] 1..840.114 350.1.13.10 4.2.7.2.686 [id number] 134 [id number] [facility] 2023-09-07 00:00:00 2023-09-07 00:00:00 Patient Secure Msg Doctor Unassigned, [place] [facility] 1..840.114 350.1.13.10 4.2.7.2.686 [id number] 134 [id number] [facility] 2023-09-04 00:00:00 2023-09-04 00:00:00 Telephone Jarrod Mercado [facility] 1..840.114 350.1.13.10 4.2.7.2.686 [id number] 134 [id number] [facility] 2023-09-02 13:20:00 2023-09-03 08:40:00 Outpatient R JARROD MERCADO [facility] LINE [facility] [id number] [facility] 2023-09-02 13:20:00 2023-09-03 08:40:00 Hospital Encounter Jarrod Mercado [facility] 1.2.840.114 350.1.13.10 4.2.7.2.686 [id number] [id number] [facility] 2023-09-03 00:00:00 2023-09-03 00:00:00 Telephone Jarrod Mercado [facility] BUILDING 1.2.840.114 350.1.13.10 4.2.7.2.686 [id number] 134 [id number] [facility] 2023-09-02 12:41:00 2023-09-02 17:07:00 Surgery Jarrod Mercado [facility] 1.2.840.114 350.1.13.10 4.2.7.2.686 [id number] [id number] [facility] 2023-09-02 00:00:00 2023-09-02 00:00:00 Orders Only Doctor Unassigned, [place] [facility] 1.2.840.114 350.1.13.10 4.2.7.2.686 [id number] [id number] [facility] 2023-09-01 13:00:00 2023-09-01 13:20:00 Office Visit Troy Khan [facility] 1.2840.114 350.1.13.10 4.2.7.2.686 [id number] 044 [id number] [facility] 2023-09-01 13:00:00 2023-09-01 13:00:00 Outpatient R TROY KHAN [facility] [id number] [facility] 2023-09-01 09:15:00 2023-09-01 09:30:00 Color Specialist Visit Pob, Adc Lab Main Jarrod Mercado [facility] 1.840.114 350.1.13.10 4.2.7.2.686 [id number] [facility] 2023-09-01 00:00:00 2023-09-01 00:00:00 Telephone Jarrod Mercado [facility] 1.840.114 350.1.13.10 4.2.7.2.686 [id number] 134 [id number] [facility] 2023-08-28 00:00:00 2023-08-28 00:00:00 Telephone Promise Mullen [facility] 1.84.114 350.1.13.10 4.2.7.2.686 [id number] [id number] [facility] 2023-08-26 13:00:00 2023-08-26 13:15:40 [facility] [id number] [facility] 2023-08-26 13:00:00 2023-08-26 13:15:40 [facility] 1.840.114 350.1.13.10 4.2.7.2.686 [id number] 059 [id number] [facility] 2023-08-25 00:00:00 2023-08-25 00:00:00 Orders Only Doctor Unassigned, [place] [facility] 1.2.114 350.1.13.10 4.2.7.2.686 [id number] 009 [id number] [facility] 2023-08-21 00:00:00 2023-08-21 00:00:00 Orders Only Doctor Unassigned, [place] [facility] 1.2.840.114 350.1.13.10 4.2.7.2.686 [id number] 009 [id number] [facility] 2023-08-20 00:00:00 2023-08-20 00:00:00 Telephone Cheikh Boyle [facility] 1.2.840.114 350.1.13.10 4.2.7.2.686 [id number] 044 [id number] [facility] 2023-08-19 16:30:00 2023-08-19 16:45:00 Color Specialist Visit Pob, Adc Lab Main Cheikh Boyle [facility] 1.2.840.114 350.1.13.10 4.2.7.2.686 [id number] 353 [id number] [facility] 2023-08-19 15:00:00 2023-08-19 16:36:17 Outpatient R CHEIKH BOYLE [facility] [id number] [facility] 2023-08-19 15:00:00 2023-08-19 16:36:17 Office Visit Cheikh Boyle [facility] 1.2.840.114 350.1.13.10 4.2.7.2.686 [id number] 044 [id number] [facility] 2023-08-14 00:00:00 2023-08-14 00:00:00 Orders Only Doctor Unassigned, [place] [facility] 1.2.840.114 350.1.13.10 4.2.7.2.686 [id number] 009 [id number] [facility] 2023-08-13 14:00:00 2023-08-13 15:13:42 Outpatient R JARROD MERCADO [facility] [id number] [facility] 2023-08-13 14:00:00 2023-08-13 15:13:42 Office Visit Jarrod Mercado [facility] 1.840.114 350.1.13.10 4.2.7.2.686 [id number] 134 [id number] [facility] 2023-08-12 15:30:00 2023-08-12 15:30:00 Outpatient R TAIWO WHARTON [facility] [id number] [facility] 2023-08-12 00:00:00 2023-08-12 00:00:00 Telephone Promise Mullen [facility] [place] [facility] 1.840.114 350.1.13.10 4.2.7.2.686 [id number] 072 [id number] [facility] 2023-07-30 10:24:56 2023-07-30 23:59:00 Hospital Encounter Jarrod Mercado [place] [facility] 1.840.114 350.1.13.10 4.2.7.2.686 [id number] [id number] [facility] 2023-07-30 15:00:00 2023-07-30 15:36:01 Outpatient R JARROD MERCADO [facility] [id number] [facility] 2023-07-30 15:00:00 2023-07-30 15:36:01 Office Visit MercadoAminaen [place] [facility] 1.840.114 350.1.13.10 4.2.7.2.686 [id number] 134 [id number] [facility] 2023-07-24 00:00:00 2023-07-24 00:00:00 Case Management Taiwo Wharton [facility] 1.2840.114 350.1.13.10 4.2.7.2.686 [id number] [id number] [facility] 2023-07-24 00:00:00 2023-07-24 00:00:00 Telephone Taiwo Wharton [facility] [place] [facility] 1.2840.114 350.1.13.10 4.2.7.2.686 [id number] 072 [id number] [facility] 2023-07-24 00:00:00 2023-07-24 00:00:00 Telephone Promise Mullen [facility] [place] [facility] 1.2.840.114 350.1.13.10 4.2.7.2.686 [id number] 072 [id number] [facility] 2023-07-23 08:00:00 2023-07-23 09:04:50 Outpatient R JARROD MERCADO [facility] [id number] [facility] 2023-07-23 08:00:00 2023-07-23 09:04:50 [facility] 1.2840.114 350.1.13.10 4.2.7.2.686 [id number] 134 [id number] [facility] 2023-07-23 00:00:00 2023-07-23 00:00:00 Telephone Taiwo Wharton [facility] 1.2840.114 350.1.13.10 4.2.7.2.686 [id number] 072 [id number] [facility] 2023-07-23 00:00:00 2023-07-23 00:00:00 Prep For Surgery Jarrod Mercado [facility] 1.2840.114 350.1.13.10 4.2.7.2.686 [id number] 134 [id number] [facility] 2023-07-22 15:00:00 2023-07-22 15:00:00 Outpatient R [facility] [id number] [facility] 2023-07-22 00:00:00 2023-07-22 00:00:00 Telephone Jarrod Mercado [facility] PROFESS[facility] NAL BUILDING 1.2840.114 350.1.13.10 4.2.7.2.686 [id number] 134 [id number] [facility] 2023-07-10 00:00:00 2023-07-10 00:00:00 [facility] [place] [facility] 1..840.114 350.1.13.10 4.2.7.2.686 [id number] 072 [id number] [facility] 2023-07-09 16:00:00 2023-07-09 16:20:00 Urgent Care Sera Worthy Unknown, [facility] .840.114 350.1.13.10 4.2.7.2.686 [id number] 370 [id number] [facility] 2023-07-09 16:00:00 2023-07-09 16:00:00 Outpatient Sona SMITH [facility] [id number] [facility] 2023-07-01 13:00:00 2023-07-01 13:15:00 Color Specialist Visit Lab, [facility] Prem [facility] 840.114 350.1.13.10 4.2.7.2.686 [id number] [facility] 2023-07-01 13:00:00 2023-07-01 13:00:00 Outpatient R TAIWO WHARTON [facility] [id number] [facility] 2023-07-01 12:30:00 2023-07-01 12:39:11 Office Visit Prem [facility] [place] [facility] 840.114 350.1.13.10 4.2.7.2.686 [id number] 072 [id number] [facility] 2023-06-29 15:00:00 2023-06-29 15:00:00 Outpatient R ALFREDAI-TROY RAY [facility]OMA [facility] [id number] [facility] 2023-06-28 22:11:00 2023-06-29 02:54:00 Emergency X ARIANNA WHITMORE [facility] ERT [id number] [facility] 2023-06-28 22:11:00 2023-06-29 02:54:00 Emergency Arianna Whitmore [facility] 1..840.114 350.1.13.10 4.2.7.2.686 [id number] [id number] [facility] 2023-06-24 14:00:00 2023-06-24 14:00:00 Outpatient R OBI-FLOR , TROY OBI-FLOR , TROY [facility] [id number] [facility] 2023-06-23 08:40:00 2023-06-23 08:40:00 Outpatient R OBI-FLOR , TROY OBI-FLOR , TROY [facility] [id number] [facility] 2023-06-23 00:00:00 2023-06-23 00:00:00 Telephone [facility] 1..840.114 350.1.13.10 4.2.7.2.686 [id number] [facility] 2023-06-22 00:00:00 2023-06-22 00:00:00 Patient Secure Nicanor Downs [facility] 1.2.840.114 350.1.13.10 4.2.7.2.686 [id number] 059 [id number] [facility] 2023-06-18 11:20:00 2023-06-18 11:20:00 Outpatient R OBI-FLOR , TROY OBI-FLOR , TROY [facility] [id number] [facility] 2023-06-15 08:52:22 2023-06-15 23:59:00 Outpatient R CHEIKH BOYLE [facility] [id number] [facility] 2023-06-15 08:52:22 2023-06-15 23:59:00 Hospital Encounter Cheikh Boyle [facility] 1.2.840.114 350.1.13.10 4.2.7.2.686 [id number] [facility] 2023-06-15 00:00:00 2023-06-15 00:00:00 Patient Secure g [facility] BUILDING 1.2.840.114 350.1.13.10 4.2.7.2.686 [id number] 044 [id number] [facility] 2023-06-11 14:00:00 2023-06-11 15:36:52 [id number] 2023-06-11 14:00:00 2023-06-11 15:36:52 Ancillary Visit Therapist, [facility] 1.2840.114 350.1.13.10 4.2.7.2.686 [id number] [facility] 2023-06-11 00:00:00 2023-06-11 00:00:00 Patient Secure Msg [facility] BUILDING 1.2.840.114 350.1.13.10 4.2.7.2.686 [id number] 044 [id number] [facility] 2023-06-10 00:00:00 2023-06-10 00:00:00 Refill [facility] 1.2.840.114 350.1.13.10 4.2.7.2.686 [id number] 044 [id number] [facility] 2023-06-03 00:00:00 2023-06-03 00:00:00 Patient Secure Msg Cheikh Boyle [facility] 1.2.840.114 350.1.13.10 4.2.7.2.686 [id number] 044 [id number] [facility] 2023-06-01 00:00:00 2023-06-01 00:00:00 Telephone Kimberly Guajardo [facility] 1.2.840.114 350.1.13.10 4.2.7.2.686 [id number] [facility] 2023-05-22 15:40:00 2023-05-22 16:43:37 Outpatient R SERA WORTHY [facility] [id number] [facility] 2023-05-22 15:40:00 2023-05-22 16:43:37 Urgent Care Sera Worthy Unknown, Attending [facility] 1.2.840.114 350.1.13.10 4.2.7.2.686 [id number] [facility] 2023-05-21 00:00:00 2023-05-21 00:00:00 Telephone Kimberly Guajardo [facility] 1.2.840.114 350.1.13.10 4.2.7.2.686 [id number] [facility] 2023-05-19 00:00:00 2023-05-19 00:00:00 Telephone Cheikh Boyle [facility] 1.2.840.114 350.1.13.10 4.2.7.2.686 [id number] 044 [id number] [facility] 2023-05-18 00:00:00 2023-05-18 00:00:00 Telephone Kimberly Guajardo [facility] 1.2.840.114 350.1.13.10 4.2.7.2.686 [id number] [facility] 2023-05-18 00:00:00 2023-05-18 00:00:00 Orders Only Doctor Unassigned, [place] [facility] 1.2.840.114 350.1.13.10 4.2.7.2.686 [id number] [id number] [facility] 2023-05-17 00:00:00 2023-05-17 00:00:00 Patient Secure MsAmbrocio FloresThe [facility] 1.2.840.114 350.1.13.10 4.2.7.2.686 [id number] 059 [id number] [facility] 2023-05-15 10:00:59 2023-05-15 23:59:00 Outpatient [facility] [id number] [facility] 2023-05-15 10:00:59 2023-05-15 23:59:00 Hospital Encounter Ambrocio Hallearlene [facility]ILD[facility] 1.2.840.114 350.1.13.10 4.2.7.2.686 [id number] [facility] 2023-05-15 08:46:23 2023-05-15 09:59:00 Hospital Encounter Nicanor Hall [facility] 1.2.840.114 350.1.13.10 4.2.7.2.686 [id number] [facility] 2023-05-14 00:00:00 2023-05-14 00:00:00 Frannie Boston [facility] 1.2.840.114 350.1.13.10 4.2.7.2.686 [id number] 134 [id number] [facility] 2023-05-13 11:20:00 2023-05-13 11:20:00 Office Visit Nicanor Hall [facility] 1.2.840.114 350.1.13.10 4.2.7.2.686 [id number] 059 [id number] [facility] 2023-05-13 10:45:00 2023-05-13 11:00:00 Color Specialist Visit 2, Adc Lab Cheikh Boyle [facility] BUILD[facility] 1.2840.114 350.1.13.10 4.2.7.2.686 [id number] [facility] 2023-05-13 08:20:00 2023-05-13 10:20:16 Outpatient R CHEIKH BOYLE [facility] [id number] [facility] 2023-05-13 08:20:00 2023-05-13 10:20:16 Office Visit Cheikh Boyle [facility] 1.20.114 350.1.13.10 4.2.7.2.686 [id number] 044 [id number] [facility] 2023-05-13 00:00:00 2023-05-13 00:00:00 Frannie Boston [facility] 1.20.114 350.1.13.10 4.2.7.2.686 [id number] 134 [id number] [facility] 2023-05-13 00:00:00 2023-05-13 00:00:00 Case Management Red Cramer [facility] 1.20.114 350.1.13.10 4.2.7.2.686 [id number] [facility] 2023-05-13 00:00:00 2023-05-13 00:00:00 Telephone Cheikh Boyle [facility] 1.2.840.114 350.1.13.10 4.2.7.2.686 [id number] [facility] 2023-05-13 00:00:00 2023-05-13 00:00:00 Patient Secure Msg Frannie Smith [facility] 1.2.840.114 350.1.13.10 4.2.7.2.686 [id number] 134 [id number] [facility] 2023-05-13 00:00:00 2023-05-13 00:00:00 Patient Secure Msg Doctor Unassigned, [place] [facility] 1.2.840.114 350.1.13.10 4.2.7.2.686 [id number] 134 [id number] [facility] 2023-05-13 00:00:00 2023-05-13 00:00:00 Patient Secure Msg Jenniegeorgette Cheikh [facility] 1.2.840.114 350.1.13.10 4.2.7.2.686 [id number] 044 [id number] [facility] 2023-05-13 00:00:00 2023-05-13 00:00:00 Orders Only Doctor Unassigned, [place] [facility] 1.2840.114 350.1.13.10 4.2.7.2.686 [id number] [id number] [facility] 2023-05-12 00:00:00 2023-05-12 00:00:00 Patient Secure Msg Jennieforeigngallo Cheikh [facility] 1.2.840.114 350.1.13.10 4.2.7.2.686 [id number] 044 [id number] [facility] 2023-05-08 10:40:00 2023-05-08 10:40:00 Outpatient R CHEIKH BOYLE [facility] [id number] [facility] 2023-05-08 00:00:00 2023-05-08 00:00:00 Patient Secure Msg Cheikh Boyle [facility] 1.2.840.114 350.1.13.10 4.2.7.2.686 [id number] 044 [id number] [facility] 2023-05-07 00:00:00 2023-05-07 00:00:00 Telephone Cheikh Boyle [facility] 1.2.840.114 350.1.13.10 4.2.7.2.686 [id number] 044 [id number] [facility] 2023-05-04 00:00:00 2023-05-04 00:00:00 Patient Secure Msg Doctor Unassigned, [place] [facility] 1.2.840.114 350.1.13.10 4.2.7.2.686 [id number] 019 [id number] [facility] 2023-05-01 00:00:00 2023-05-01 00:00:00 Patient Secure Msg Doctor Unassigned, [place] [facility] 1.2.840.114 350.1.13.10 4.2.7.2.686 [id number] 019 [id number] [facility] 2023-04-29 15:30:00 2023-04-29 15:38:38 Outpatient FRANNIE JIMENEZ [facility] [id number] [facility] 2023-04-29 15:30:00 2023-04-29 15:38:38 Nurse Visit Nurse, [facility] Frannie Smith [facility] 1.2.840.114 350.1.13.10 4.2.7.2.686 [id number] [facility] 2023-04-29 00:00:00 2023-04-29 00:00:00 Patient Secure Msg [place], Peter [facility] 1.2.840.114 350.1.13.10 4.2.7.2.686 [id number] 044 [id number] [facility] 2023-04-29 00:00:00 2023-04-29 00:00:00 Telephone Cheikh Boyle [facility] 1.2.840.114 350.1.13.10 4.2.7.2.686 [id number] 044 [id number] [facility] 2023-04-28 00:00:00 2023-04-28 00:00:00 Frannie Boston [facility] 1.2.840.114 350.1.13.10 4.2.7.2.686 [id number] 134 [id number] [facility] 2023-04-21 00:00:00 2023-04-21 00:00:00 Telephone Cheikh Boyle [facility] 1.2.840.114 350.1.13.10 4.2.7.2.686 [id number] 044 [id number] [facility] 2023-04-20 00:00:00 2023-04-20 00:00:00 Patient Secure Msg Cheikh Boyle [facility] 1.2.840.114 350.1.13.10 4.2.7.2.686 [id number] 044 [id number] [facility] 2023-04-14 00:00:00 2023-04-14 00:00:00 Orders Only Doctor Unassigned, [place] [facility] 1.2.840.114 350.1.13.10 4.2.7.2.686 [id number] [id number] [facility] 2023-04-14 00:00:00 2023-04-14 00:00:00 Telephone Cheikh Boyle [facility] 1..840.114 350.1.13.10 4.2.7.2.686 [id number] 044 [id number] [facility] 2023-04-10 00:00:00 2023-04-10 00:00:00 Telephone Cheikh Boyle [facility] 1..840.114 350.1.13.10 4.2.7.2.686 [id number] [id number] [facility] 2023-04-04 15:40:00 2023-04-04 15:40:00 Outpatient R [facility] [id number] [facility] 2023-04-04 15:00:00 2023-04-04 15:00:00 Outpatient R UNKNOWN, ATTENDING [facility] [id number] [facility] 2023-04-03 15:40:00 2023-04-03 16:07:45 Outpatient R DAVERadha ISATYLER [facility] [id number] [facility] 2023-04-03 15:40:00 2023-04-03 16:00:00 Urgent Care Sera Worthy Unknown, Attending [facility] 1..840.114 350.1.13.10 4.2.7.2.686 [id number] [facility] 2023-04-03 15:45:00 2023-04-03 15:45:00 Outpatient R UNKNOWN, ATTENDING [facility] [id number] [facility] 2023-04-02 00:00:00 2023-04-02 00:00:00 Patient Secure Msg Doctor Unassigned, [place] [facility] 1..840.114 350.1.13.10 4.2.7.2.686 [id number] [facility] 2023-04-01 13:40:00 2023-04-01 14:40:45 Outpatient R CHEIKH BOYLE [facility] [id number] [facility] 2023-04-01 13:40:00 2023-04-01 14:40:45 Office Visit Cheikh Boyle [facility] 1.2.840.114 350.1.13.10 4.2.7.2.686 [id number] [facility] 2023-04-01 00:00:00 2023-04-01 00:00:00 Case Management MercdaoJarrod [facility] 1.2.840.114 350.1.13.10 4.2.7.2.686 [id number] [facility] 2023-04-01 00:00:00 2023-04-01 00:00:00 Patient Secure Msg Cheikh Boyle [facility] 1.2.840.114 350.1.13.10 4.2.7.2.686 [id number] [id number] [facility] 2023-03-31 00:00:00 2023-03-31 00:00:00 Letter (Out) Sabiha Vargas [facility] 1.2.840.114 350.1.13.10 4.2.7.2.686 [id number] [facility] 2023-03-30 13:00:00 2023-03-30 13:53:48 Outpatient R JARROD MERCADO [facility] [id number] [facility] 2023-03-30 13:00:00 2023-03-30 13:53:48 Office Visit Jarrod Mercado [facility] 1.2.840.114 350.1.13.10 4.2.7.2.686 [id number] 134 [id number] [facility] 2023-03-30 10:00:00 2023-03-30 10:23:54 Laboratory Only Only, Ang Db Test Unknown, [facility] 1.2.840.114 350.1.13.10 4.2.7.2.686 [id number] 370 [id number] [facility] 2023-03-30 00:00:00 2023-03-30 00:00:00 Letter (Out) [facility] 1.2.840.114 350.1.13.10 4.2.7.2.686 [id number] [facility] 2023-03-30 00:00:00 2023-03-30 00:00:00 Refill Bayron [facility] 1.2.840.114 350.1.13.10 4.2.7.2.686 [id number] [id number] [facility] 2023-03-27 00:00:00 2023-03-27 00:00:00 Refill Frannie Smith [facility] 1.2840.114 350.1.13.10 4.2.7.2.686 [id number] [facility] 2023-03-27 00:00:00 2023-03-27 00:00:00 Refill Cheikh Boyle [facility] 1.2.840.114 350.1.13.10 4.2.7.2.686 [id number] [id number] [facility] 2023-03-27 00:00:00 2023-03-27 00:00:00 Refill Cheikh Boyle [facility] 1.2840.114 350.1.13.10 4.2.7.2.686 [id number] [facility] 2023-03-25 00:00:00 2023-03-25 00:00:00 Patient Secure Msg Frannie Smith [facility] 1.2840.114 350.1.13.10 4.2.7.2.686 [id number] [facility] 2023-03-24 00:00:00 2023-03-24 00:00:00 Telephone Frannie Smith [facility] 1.20.114 350.1.13.10 4.2.7.2.686 [id number] [facility] 2023-03-21 00:00:00 2023-03-21 00:00:00 Telephone IdaKimmy [facility] 1..114 350.1.13.10 4.2.7.2.686 [id number] [facility] 2023-03-20 15:40:00 2023-03-20 16:35:15 Urgent Care Sera Worthy Unknown, Attending [facility] 1.84.114 350.1.13.10 4.2.7.2.686 [id number] [facility] 2023-03-20 16:00:00 2023-03-20 16:00:00 Outpatient R UNKNOWN, ATTENDING [facility] [id number] [facility] 2023-02-27 14:40:00 2023-02-27 14:40:00 Outpatient R CHEIKH BOYLE [facility] [id number] [facility] 2023-02-18 00:00:00 2023-02-18 00:00:00 Patient Secure Msg Doctor Unassigned, [place] [facility] 1.2.114 350.1.13.10 4.2.7.2.686 [id number] [facility] 2023-02-11 11:20:00 2023-02-11 11:20:00 Outpatient CHEIKH LIZAMA [facility] [id number] [facility] 2023-02-04 00:00:00 2023-02-04 00:00:00 Telephone Frannie Smith [facility] 1.2.840.114 350.1.13.10 4.2.7.2.686 [id number] [facility] [id number] [facility] 2023-02-03 00:00:00 2023-02-03 00:00:00 Patient Secure Msg Frannie Smith [facility] 1.2.840.114 350.1.13.10 4.2.7.2.686 [id number] [facility] 2023-02-03 00:00:00 2023-02-03 00:00:00 Patient Secure Msg Sarah Frannie [facility] 1.2.840.114 350.1.13.10 4.2.7.2.686 [id number] [facility] 2023-02-02 16:15:00 2023-02-02 16:30:00 Color Specialist Visit Pob, Adc Lab Main Frannie Smith [facility] 1.2.840.114 350.1.13.10 4.2.7.2.686 [id number] [facility] 2023-02-02 15:45:00 2023-02-02 16:15:00 Office Visit Frannie Smith [facility] 1.2.840.114 350.1.13.10 4.2.7.2.686 [id number] [facility] 2023-02-02 15:45:00 2023-02-02 16:02:01 Outpatient Sona SARAH FRANNIE [facility] [id number] [facility] 2023-02-02 00:00:00 2023-02-02 00:00:00 Orders Only Doctor Unassigned, [place] [facility] 1.2.840.114 350.1.13.10 4.2.7.2.686 [id number] [facility] 2023-01-07 09:45:00 2023-01-07 09:45:00 Outpatient FRANNIE JIMENEZ [facility] [id number] [facility] 2023-01-06 15:20:00 2023-01-06 15:20:00 Outpatient CHEIKH LIZAMA [facility] [id number] [facility] 2022-08-16 11:30:00 2022-08-16 11:47:21 Outpatient CAMELIA LONGORIA [facility] [id number] [facility] 2022-08-16 11:30:00 2022-08-16 11:45:00 Laboratory Only Only, Ang Db Test Unknown, Attending [facility] 1.2.840.114 350.1.13.10 4.2.7.2.686 [id number] [facility] 2022-08-04 18:18:00 2022-08-04 20:38:00 Emergency X NII GUZMAN [facility] ERT [id number] [facility] 2022-08-04 18:18:00 2022-08-04 20:38:00 Emergency Chad Nii Sonal [facility] 1.2.840.114 350.1.13.10 4.2.7.2.686 [id number] [facility] 2022-05-12 09:39:00 2022-05-12 12:15:00 Emergency X CIARRA FRANK [facility] ERT [id number] [facility] 2022-05-12 09:39:00 2022-05-12 12:15:00 Emergency Ciarra Frank [facility] 1.2.840.114 350.1.13.10 4.2.7.2.686 [id number] [facility] 2022-04-29 09:30:00 2022-04-29 09:30:00 Outpatient R SARAH [facility] [id number] [facility] 2022-04-23 14:30:00 2022-04-23 14:30:00 Outpatient R SARAH [facility] [id number] [facility] 2022-04-22 11:15:00 2022-04-22 11:15:00 Outpatient R SARAH [facility] [id number] [facility] 2022-04-08 10:00:00 2022-04-08 10:00:00 Outpatient ADELINE HARRIS [facility] [id number] [facility] 2022-04-03 08:30:00 2022-04-03 08:30:00 Outpatient R SARAH [facility] [id number] [facility] 2022-03-24 09:13:00 2022-03-24 09:37:00 Emergency X GARY KEATINGANNE [facility] ERT [id number] [facility] 2022-03-24 09:13:00 2022-03-24 09:37:00 Emergency Lizandro Keating [facility] 1.2.840.114 350.1.13.10 4.2.7.2.686 [id number] [facility] 2022-02-21 00:00:00 2022-02-21 00:00:00 Outpatient R BRITTANY BELCHER [facility] [id number] [facility] 2022-02-20 15:30:00 2022-02-20 15:30:00 Outpatient JAN IRIZARRY [facility] [id number] [facility] 2022-02-18 14:30:00 2022-02-18 14:30:00 Outpatient R FRANNIE SMITH [facility] [id number] [facility] 2022-02-17 18:40:00 2022-02-17 21:13:00 Emergency X NATALIE ALMENDAREZ [facility] ERT [id number] [facility] 2022-02-17 18:40:00 2022-02-17 21:13:00 Emergency Natalie Almendarez [facility] 1..840.114 350.1.13.10 4.2.7.2.686 [id number] [facility] 2022-02-17 18:15:00 2022-02-17 18:35:00 Nurse Visit Nurse, Aurelio Flores [facility] 1..840.114 350.1.13.10 4.2.7.2.686 [id number] [facility] 2022-02-17 18:15:00 2022-02-17 18:15:00 Outpatient R [facility] [id number] [facility] 2022-01-28 15:30:00 2022-01-28 15:30:00 Outpatient R SEANJAN [facility] [id number] [facility] 2022-01-27 00:00:00 2022-01-27 00:00:00 Letter (Out) Xochitl Kaur [facility] 1..840.114 350.1.13.10 4.2.7.2.686 [id number] [facility] 2022-01-26 13:40:00 2022-01-26 14:06:12 Outpatient R SHANNAN STEWARD [facility] [id number] [facility] 2022-01-26 13:40:00 2022-01-26 14:06:12 Urgent Care Shannan Steward [facility] 1.114 350.1.13.10 4.2.7.2.686 [id number] [facility] 2022-01-26 00:00:00 2022-01-26 00:00:00 Letter (Out) Provider, Aurelio Flores Urgent Care [facility] 1.114 350.1.13.10 4.2.7.2.686 [id number] [facility] 2022-01-23 14:00:00 2022-01-23 14:10:00 Imm/Inj Visit Vaccine, Ang Db Cbc Fam Fabian Dominic Capo [facility] 1.114 350.1.13.10 4.2.7.2.686 [id number] [facility] 2022-01-23 14:00:00 2022-01-23 14:00:00 Outpatient R DOMINIC PERALTA [facility] [id number] [facility] 2022-01-22 14:40:00 2022-01-22 14:40:00 Outpatient R CHEIKH BOYLE [facility] [id number] [facility] 2021-12-27 00:00:00 2021-12-27 00:00:00 Outpatient R BRITTANY BELCHER [facility] [id number] [facility] 2021-11-28 00:00:00 2021-11-28 00:00:00 Letter (Out) Xochitl Kaur [facility] 1.114 350.1.13.10 4.2.7.2.686 [id number] [facility] 2021-11-27 15:15:00 2021-11-27 15:30:00 Laboratory Only Only, Ang Db Test Sera Worthy [facility] 1.114 350.1.13.10 4.2.7.2.686 [id number] [facility] 2021-11-27 15:15:00 2021-11-27 15:15:00 Outpatient R SERA WORTHY [facility] [id number] [facility] 2021-11-23 22:04:00 2021-11-24 04:27:00 Emergency X ARIANNA WHITMORE [facility] ERT [id number] [facility] 2021-11-23 22:04:00 2021-11-24 04:27:00 Emergency Arianna Whitmore [facility] 1..840.114 350.1.13.10 4.2.7.2.686 [id number] [facility] 2021-11-21 15:30:00 2021-11-21 16:15:19 Office Visit Brittany Belcher [facility] 1.2.840.114 350.1.13.10 4.2.7.2.686 [id number] [facility] 2021-11-21 15:30:00 2021-11-21 16:15:19 Outpatient R ANDREA BRITTANY [facility] [id number] [facility] 2021-11-21 15:30:00 2021-11-21 15:30:00 Outpatient R BRITTANY BELCHER [facility] [id number] [facility] 2021-11-21 00:00:00 2021-11-21 00:00:00 Letter (Out) Brittany Belcher [facility] 1.2.840.114 350.1.13.10 4.2.7.2.686 [id number] [facility] 2021-11-06 07:15:00 2021-11-07 09:35:00 Outpatient X BRITTANY BELCHER [facility] [id number] [facility] 2021-11-06 07:15:00 2021-11-07 09:35:00 Emergency Mayer Micheal Andreamary Brittany Nunez [facility] 1.284.114 350.1.13.10 4.2.7.2.686 [id number] [facility] 2021-10-04 00:00:00 2021-10-04 00:00:00 Letter (Out) Xochitl Kaur [facility] 1.2.114 350.1.13.10 4.2.7.2.686 [id number] [facility] 2021-10-03 17:20:00 2021-10-03 18:22:13 Outpatient R GAMALIEL GREER III [facility] [id number] [facility] 2021-09-19 00:00:00 2021-09-19 00:00:00 Patient Secure Msg AraceliCheikh [facility] PROFESSIO NAL [facility] 1.840.114 350.1.13.10 4.2.7.2.686 [id number] [facility] 2021-09-14 20:00:00 2021-09-14 20:59:00 Emergency X CIARRA FRANK [facility] ERT [id number] [facility] 2021-09-14 20:00:00 2021-09-14 20:59:00 Emergency Ciarra Frank [facility] 1.284.114 350.1.13.10 4.2.7.2.686 [id number] [facility] 2021-09-09 15:35:00 2021-09-09 17:06:00 Emergency X Susana DANIELS [facility] ERT [id number] [facility] 2021-09-09 15:35:00 2021-09-09 17:06:00 Emergency Susana Daniels [facility] 1.284.114 350.1.13.10 4.2.7.2.686 [id number] [facility] 2021-09-09 00:00:00 2021-09-09 00:00:00 Orders Only Doctor Unassigned, [place] [facility] 1.114 350.1.13.10 4.2.7.2.686 [id number] [facility] 2021-08-27 11:45:00 2021-08-27 12:00:00 Laboratory Only Only, Ang Db Test Shannan Steward [facility] 1.84.114 350.1.13.10 4.2.7.2.686 [id number] [facility] 2021-08-27 11:45:00 2021-08-27 11:59:56 Outpatient R SHANNAN STEWARD [facility] [id number] [facility] 2021-08-27 00:00:00 2021-08-27 00:00:00 Letter (Out) Provider, Urgent Care Day [facility] 1.84.114 350.1.13.10 4.2.7.2.686 [id number] [facility] 2021-08-19 18:20:00 2021-08-19 19:19:45 Outpatient R JOJO MINOR [facility] [id number] [facility] 2021-08-19 18:20:00 2021-08-19 18:40:00 Urgent Care Jojo Minor Amanda [facility] 1.84.114 350.1.13.10 4.2.7.2.686 [id number] [facility] 2021-08-19 00:00:00 2021-08-19 00:00:00 Orders Only Doctor Unassigned, [place] [facility] 1..840.114 350.1.13.10 4.2.7.2.686 [id number] [facility] 2021-08-01 10:20:00 2021-08-01 10:40:00 Urgent [facility] D[facility] 1..840.114 350.1.13.10 4.2.7.2.686 [id number] [facility] 2021-08-01 10:20:00 2021-08-01 10:20:00 Outpatient R CORTEZ [facility] [id number] [facility] 2021-06-27 09:00:00 2021-06-27 09:00:00 Outpatient R FRANNIE SMITH [facility] [id number] [facility] 2021-06-09 14:25:24 2021-06-09 14:45:24 Urgent Care Sera Worthy [facility] 1..840.114 350.1.13.10 4.2.7.2.686 [id number] [facility] 2021-06-09 14:40:00 2021-06-09 14:40:00 Outpatient R DAVERadha SERA [facility] [id number] [facility] 2021-04-21 00:00:00 2021-04-21 00:00:00 Telephone Kaley Coello [facility] 1..840.114 350.1.13.10 4.2.7.2.686 [id number] [facility] 2021-04-20 11:16:01 2021-04-20 11:52:08 Urgent Care Stewart [facility] 1.2.840.114 350.1.13.10 4.2.7.2.686 [id number] [facility] 2021-04-20 11:20:00 2021-04-20 11:20:00 Outpatient Sona WILLIAM TOMASA [facility] [id number] [facility] 2021-04-19 18:56:00 2021-04-19 19:59:00 Emergency Ciarra [facility] 1..840.114 350.1.13.10 4.2.7.2.686 [id number] [facility] 2021-04-12 15:00:00 2021-04-12 15:00:00 Outpatient CHEIKH LIZAMA [facility] [id number] [facility] 2021-03-17 20:00:00 2021-03-17 20:00:00 Outpatient TRUPTI STERLING [facility] [id number] [facility] 2021-01-30 11:15:00 2021-01-30 11:15:00 Outpatient JAN IRIZARRY [facility] [id number] [facility] 2021-01-24 08:00:00 2021-01-24 08:00:00 Outpatient FRANNIE JIMENEZ [facility] [id number] [facility] 2021-01-21 10:00:00 2021-01-21 10:00:00 Outpatient FRANNIE JIMENEZ [facility] [id number] [facility] 2021-01-17 16:00:00 2021-01-17 16:00:00 Outpatient CHEIKH LIZAMA [facility] [id number] [facility] 2021-01-15 09:20:00 2021-01-15 09:20:00 Outpatient THIERNO INTERIANO HOWARD [facility] [id number] [facility] 2020-12-25 10:40:00 2020-12-25 10:40:00 Outpatient THIERNO INTERIANO HOWARD [facility] [id number] [facility] 2020-12-20 11:20:00 2020-12-20 11:20:00 Outpatient CHEIKH LIZAMA [facility] [id number] [facility] 2020-12-18 10:00:00 2020-12-18 10:00:00 Outpatient FRANNIE JIMENEZ [facility] [id number] [facility] 2020-12-10 00:00:00 2020-12-10 00:00:00 Outpatient Sona SMITH FRANNIE [facility] [id number] [facility] 2020-12-06 15:30:00 2020-12-06 15:30:00 Outpatient JAN IRIZARRY [facility] [id number] [facility] 2020-12-04 09:45:00 2020-12-04 09:45:00 Outpatient FRANNIE JIMENEZ [facility] [id number] [facility] 2020-11-27 14:30:00 2020-11-27 14:30:00 Outpatient TORY DAVALOS [facility] [id number] [facility] 2020-11-27 09:00:00 2020-11-27 09:00:00 Outpatient JAN IRIZARRY [facility] [id number] [facility] 2020-11-22 13:20:00 2020-11-22 13:20:00 Outpatient CHEIKH LIZAMA [facility] [id number] [facility] 2020-11-15 13:30:00 2020-11-15 13:30:00 Outpatient JAN IRIZARRY [facility] [id number] [facility] 2020-11-14 16:00:00 2020-11-14 16:00:00 Outpatient KEHINDE MORRISSEY [facility] [id number] [facility] 2020-11-08 11:00:00 2020-11-08 11:00:00 Outpatient R YOUNG, [facility] [id number] [facility] 2020-10-25 00:00:00 2020-10-25 00:00:00 Patient Secure Msg Estrada [facility] FRANCIS MAGALLANES 1..840.114 350.1.13.10 4.2.7.2.686 [id number] [facility] 2020-10-17 16:20:00 2020-10-17 16:20:00 Outpatient CHEIKH LIZAMA [facility] [id number] [facility] 2020-10-17 16:00:00 2020-10-17 16:00:00 Outpatient KEHINDE MORRISSEY [facility] [id number] [facility] 2020-10-15 10:00:00 2020-10-15 10:00:00 Outpatient FRANNIE JIMENEZ [facility] [id number] [facility] 2020-08-24 17:20:00 2020-08-24 17:20:00 Outpatient Sona [facility] [id number] [facility] 2020-08-16 00:00:00 2020-08-16 00:00:00 Patient Secure Doctor Unassigned, [place] [facility] 1..840.114 350.1.13.10 4.2.7.2.686 [id number] [facility] 2020-08-06 14:15:00 2020-08-06 14:15:00 Outpatient FRANNIE JIMENEZ [facility] [id number] [facility] 2020-07-02 10:45:00 2020-07-02 10:45:00 Outpatient FRANNIE JIMENEZ [facility] [id number] [facility] 2020-06-22 11:20:00 2020-06-22 11:20:00 Outpatient CHEIKH LIZAMA [facility] [id number] [facility] 2020-06-18 14:40:00 2020-06-18 14:40:00 Outpatient GEORGE WASHINGTONA [facility] [id number] [facility] 2020-06-15 10:00:00 2020-06-15 10:00:00 Outpatient R CHEIKH BOYLE [facility] [id number] [facility] 2020-05-18 15:40:00 2020-05-18 15:40:00 Outpatient R CHEIKH BOYLE [facility] [id number] [facility] 2020-05-14 00:00:00 2020-05-14 00:00:00 Patient Secure Msg Doctor Unassigned, [place] [facility] 1.2.840.114 350.1.13.10 4.2.7.2.686 [id number] [facility] 2020-03-20 14:00:00 2020-03-20 14:00:00 Outpatient R IVAN ROBERTSON [facility] [id number] [facility] 2020-03-13 10:40:00 2020-03-13 10:40:00 Outpatient R CHEIKH BOYLE [facility] [id number] [facility] 2020-03-02 11:00:00 2020-03-02 11:00:00 Outpatient R AGUSTO DARLING SHIWAN [facility] [id number] [facility] 2020-02-29 10:00:00 2020-02-29 10:00:00 Outpatient R CHEIKH BOYLE [facility] [id number] [facility] 2020-02-27 13:00:00 2020-02-27 13:00:00 Outpatient R CHEIKH BOYLE [facility] [id number] [facility] 2020-01-24 07:37:42 2020-01-24 12:12:00 Emergency X ANNALEEBALDOMEROARIANNA [facility] ERT [id number] [facility] 2020-01-11 13:00:00 2020-01-11 13:00:00 Outpatient R NEAL OROZCO [facility] [id number] [facility] 2020-01-04 14:30:00 2020-01-04 14:30:00 [id number] 2020-01-03 14:00:00 2020-01-03 14:00:00 Outpatient R NEAL OROZCO [facility] [id number] [facility] 2019-12-20 14:00:00 2019-12-20 14:00:00 Outpatient R MARCELO IVAN [facility] [id number] [facility] 2019-12-15 12:30:00 2019-12-15 12:30:00 Outpatient R RED CRAMER [facility] [id number] [facility] 2019-12-12 10:00:00 2019-12-12 10:00:00 Outpatient R AGUSTO DARLING SHIWAN [facility] [id number] [facility] 2019-12-09 14:20:00 2019-12-09 14:20:00 Outpatient R CHEIKH BOYLE [facility] [id number] [facility] 2019-12-02 11:40:00 2019-12-02 11:40:00 Outpatient R AGUSTO DARLING SHIWAN [facility] [id number] [facility] 2019-12-01 09:00:00 2019-12-01 09:00:00 Outpatient R ALBA VALENTINE [facility] [id number] [facility] 2019-11-29 13:00:00 2019-11-29 13:00:00 Outpatient R ALBA VALENTINE [facility] [id number] [facility] 2019-11-15 09:45:00 2019-11-15 09:45:00 Outpatient R NEAL OROZCO [facility] [id number] [facility] 2019-11-11 10:40:00 2019-11-11 10:40:00 Outpatient R CHEIKH BOYLE [facility] [id number] [facility] 2019-11-04 13:20:00 2019-11-04 13:20:00 Outpatient CHEIKH LIZAMA [facility] [id number] [facility] 2019-11-01 10:00:00 2019-11-01 10:00:00 Outpatient CHEIKH LIZAMA [facility] [id number] [facility] 2019-10-28 12:40:00 2019-10-28 12:40:00 Outpatient CHEIKH LIZAMA [facility] [id number] [facility] 2019-10-25 11:20:00 2019-10-25 11:20:00 Outpatient THIERNO INTERIANO [facility] [id number] [facility] 2019-10-21 13:00:00 2019-10-21 13:00:00 Outpatient AGUSTO DAO [facility]AN [facility] [id number] [facility] 2019-10-19 09:50:34 2019-10-19 23:59:00 Outpatient CHEIKH LIZAMA [facility] [id number] [facility] 2019-10-17 11:34:18 2019-10-17 16:01:00 Emergency X Susana DANIELS [facility] ERT [id number] [facility] 2019-10-17 11:20:00 2019-10-17 11:20:00 Outpatient THIERNO INTERIANO [facility] [id number] [facility] 2019-10-14 11:00:00 2019-10-14 11:00:00 Outpatient FRANNIE JIMENEZ [facility] [id number] [facility] 2019-10-12 15:40:00 2019-10-12 15:40:00 Outpatient CHEIKH LIZAMA [facility] [id number] [facility] 2019-10-11 13:30:00 2019-10-11 13:30:00 Outpatient JAN IRIZARRY [facility] [id number] [facility] 2019-10-06 15:40:00 2019-10-06 15:40:00 Outpatient CHEIKH LIZAMA [facility] [id number] [facility] 2019-08-31 14:47:13 2019-09-06 18:06:25 Office Visit Cheikh Boyle [facility] [id number] 350.1.13.10 4.2.7.2.686 [id number] [facility] 2019-09-06 13:53:00 2019-09-06 14:53:00 Color Specialist Visit Tech, Adc Cardio Fac 2, Adc Cardio Fac Room Nicanor Hall [facility] [id number] 350.1.13.10 4.2.7.2.686 [id number] [facility] 2019-09-06 08:52:38 2019-09-06 09:16:32 Office Visit Sarah Frannie [facility] [id number] 350.1.13.10 4.2.7.2.686 [id number] [facility] 2019-09-01 09:38:47 2019-09-01 16:33:00 Emergency AufamiliaNii choudhary [facility] [id number] 350.1.13.10 4.2.7.2.686 [id number] [facility] 2019-08-25 13:03:52 2019-08-25 15:25:05 Ancillary Visit Melisa Perez [facility] [id number] 350.1.13.10 4.2.7.2.686 [id number] [facility] 2019-08-25 00:00:00 2019-08-25 00:00:00 Telephone Cheikh Boyle [facility] [id number] 350.1.13.10 4.2.7.2.686 [id number] [facility] 2019-08-23 00:00:00 2019-08-23 00:00:00 Telephone Nicanor Hall [facility] [facility] 1.2.840.114 350.1.13.10 4.2.7.2.686 [id number] [id number] [facility] 2019-08-16 06:57:53 2019-08-16 09:44:00 Emergency X [facility] ERT [id number] [facility] 2019-04-22 09:04:40 2019-04-22 09:52:08 Office Visit AlexGamaliel [facility] Office Building One 1.2.840.114 350.1.13.10 4.2.7.2.686 [id number] [facility] 2019-04-22 00:00:00 2019-04-22 00:00:00 Orders Only Doctor Unassigned, [place] [facility] 1.2840.114 350.1.13.10 4.2.7.2.686 [id number] [id number] [facility] 2019-04-11 09:18:53 2019-04-11 09:57:00 Emergency [facility] 1.2840.114 350.1.13.10 4.2.7.2.686 [id number] [facility] 2019-04-11 00:00:00 2019-04-11 00:00:00 Orders Only Doctor Unassigned, [place] [facility] 1.2840.114 350.1.13.10 4.2.7.2.686 [id number] [id number] [facility] Results Test Description Test Time Test Comments Results Result [id number] 15:44:53* Test Item Value Reference Range Interpretation Comme nts POCT Molecular Strep (test c ode = 59716-7) Negative Negative Lab Interpretation (test cod e = 24835-0) Normal [facility] MOLECULAR [id number] 17:32:27* Test Item Value Reference Range Interpretation Comme nts POCT Molecular Strep (test c ode = 02820-2) Negative Negative Lab Interpretation (test cod e = 25085-3) [facility] SARS-COV-2 ANTIGEN (BINAX NOW)2023-12-04 17:31:00* Test Item Value Reference Range Interpretation Comme nts POCT SARS-COV-2 ANTIGEN (test code = 79308-3) Not Detected Not Detected On board controls acceptable with C Line (test code = 3574) Yes TYRON (test code = TYRON) accurate developme nt and interpretation of all internal controls Lab Interpretation (test code = 99524-5) [facility] SARS-COV-2 ANTIGEN (BINAX NOW)2023-09-15 18:43:00* Test Item Value Reference Range Interpretation Comme nts POCT SARS-COV-2 ANTIGEN (tavon t code = 22601-0) Not Detected Not Detected On board controls acceptable with C Line (test code = 3574) Yes Lab Interpretation (test cod e = 59969-5) [facility] SARS-COV-2 ANTIGEN (BINAX NOW)2023-09-15 18:43:00* Test Item Value Reference Range Interpretation Comme nts POCT SARS-COV-2 ANTIGEN (tavon t code = 36560-3) Not Detected Not Detected On board controls acceptable with C Line (test code = 3574) Yes Lab Interpretation (test cod e = 16311-8) [facility] SARS-COV-2 ANTIGEN (BINAX NOW)2023-09-15 18:43:00* Test Item Value Reference Range Interpretation Comme nts POCT SARS-COV-2 ANTIGEN (tavon t code = 53231-2) Not Detected Not Detected On board controls acceptable with C Line (test code = 3574) Yes Lab Interpretation (test cod e = 34135-9) Normal [facility] Metabolic Panel (NA, K, CL, CO2, GLUCOSE, BUN, CREATININE, CA) - On Postoperative Day # [id number] 11:17:22* Test Item Value Reference Range Interpretation Comme nts NA (test code = 6446774076) 138 mmol/L 135-145 K (test code = 8904434238) 4.2 mmol/L 3.5-5.0 CL (test code = 1697095790) 107 mmol/L 98-108 CO2 TOTAL (test code = 7995064532) 20 mmol/L 23-31 L AGAP (test code = 4687190223) 11 2-16 BUN (test code = 8058870423) 7 mg/dL 7-23 GLUCOSE (test code = 7330581689) 110 mg/dL 70-110 CREATININE (test code = 6579545988) 0.62 mg/dL 0.50-1.04 CALCIUM (test code = 6736270067) 9.0 mg/dL 8.6-10.6 eGFR (test code = 01713-2) 117.8 mL/min/1.73m2 CKD-EPI eGFR (2020). Assuming creatinine has been stable day-to-day for at least three months, the eGFR indicates Category G1 (>= 90 mL/min/1.73 m2) Lab Interpretation (test code = 23522-0) Abnormal [facility] Metabolic Panel (NA, K, CL, CO2, GLUCOSE, BUN, CREATININE, CA) - On Postoperative Day # 30850-55-06 11:17:22* Test Item Value Reference Range Interpretation Comme nts NA (test code = 2143878617) 138 mmol/L 135-145 K (test code = 9517758863) 4.2 mmol/L 3.5-5.0 CL (test code = 9143762448) 107 mmol/L 98-108 CO2 TOTAL (test code = 3755948794) 20 mmol/L 23-31 L AGAP (test code = 5393388965) 11 2-16 BUN (test code = 9057657469) 7 mg/dL 7-23 GLUCOSE (test code = 0813370281) 110 mg/dL 70-110 CREATININE (test code = 8546460851) 0.62 mg/dL 0.50-1.04 CALCIUM (test code = 7544589680) 9.0 mg/dL 8.6-10.6 eGFR (test code = 54083-8) 117.8 mL/min/1.73m2 CKD-EPI eGFR (2020). Assuming creatinine has been stable day-to-day for at least three months, the eGFR indicates Category G1 (>= 90 mL/min/1.73 m2) Lab Interpretation (test code = 14043-5) Abnormal [facility] with Differential - On Postoperative Day # 08464-96-81 10:49:19* Test Item Value Reference Range Interpretation Comme nts WBC (test code = 6690-2) 11.90 See_Comment H [Automated [employer]oss[employer] ge] The system which generated this result transmitted reference range: 4.30 - 11.10 10*3/?L. The reference range was not used to interpret this result as normal/abnormal. RBC (test code = 789-8) 4.24 See_Comment [Automated [employer]oss[employer] ge] The system which generated this result [...] 34.0 g/dL 31.6-35.1 RDW-SD (test code = 68905-8) 38.8 fL 39.0-49.9 L RDW-CV (test code = 788-0) 12.0 % 12.0-15.5 PLT (test code = 777-3) 339 See_Comment [Automated messa ge] The system which generated this result transmitted reference range: 166 - 358 10*3/?L. The reference range was not used to interpret this result as normal/abnormal. MPV (test code = 72262-3) 9.0 fL 9.5-12.9 L NRBC/100 WBC (test code = 0651745916) 0.0 See_Comment [Automated Codementor ssage] The system which generated this result transmitted reference range: 0.0 - 10.0 /100 WBCs. The reference range was not used to interpret this result as normal/abnormal. NRBC x10^3 (test code = 0735472004) See_Comment [Automated messa ge] The system which generated this result transmitted reference range: 10*3/?L. The reference range was not used to interpret this result as normal/abnormal. GRAN MAT (NEUT) % (test code = 770-8) 82.7 % IMM GRAN % (test code = 0785877515) 0.30 % LYMPH % (test code = 736-9) 11.4 % MONO % (test code = 5905-5) 5.4 % EOS % (test code = 713-8) 0.0 % BASO % (test code = 706-2) 0.2 % GRAN MAT x10^3(ANC) (test code = 9184597339) 9.84 10*3/uL 1.88-7.09 H IMM GRAN x10^3 (test code = 1007986485) 0.04 10*3/uL 0.00-0.06 LYMPH x10^3 (test code = 731-0) 1.36 10*3/uL 1.32-3.29 MONO x10^3 (test code = 742-7) 0.64 10*3/uL 0.33-0.92 EOS x10^3 (test code = 711-2) 0.03-0.39 L BASO x10^3 (test code = 704-7) 0.01-0.07 Lab Interpretation (test code = 84302-7) Abnormal [facility] with Differential - On Postoperative Day # 57164-16-29 10:49:19* Test Item Value Reference Range Interpretation [...] 34.0 g/dL 31.6-35.1 RDW-SD (test code = 88737-8) 38.8 fL 39.0-49.9 L RDW-CV (test code = 788-0) 12.0 % 12.0-15.5 PLT (test code = 777-3) 339 See_Comment [Automated messa ge] The system which generated this result transmitted reference range: 166 - 358 10*3/?L. The reference range was not used to interpret this result as normal/abnormal. MPV (test code = 94912-3) 9.0 fL 9.5-12.9 L NRBC/100 WBC (test code = 3034622386) 0.0 See_Comment [Automated Codementor ssage] The system which generated this result transmitted reference range: 0.0 - 10.0 /100 WBCs. The reference range was not used to interpret this result as normal/abnormal. NRBC x10^3 (test code = 9637378380) See_Comment [Automated messa ge] The system which generated this result transmitted reference range: 10*3/?L. The reference range was not used to interpret this result as normal/abnormal. GRAN MAT (NEUT) % (test code = 770-8) 82.7 % IMM GRAN % (test code = 0045772089) 0.30 % LYMPH % (test code = 736-9) 11.4 % MONO % (test code = 5905-5) 5.4 % EOS % (test code = 713-8) 0.0 % BASO % (test code = 706-2) 0.2 % GRAN MAT x10^3(ANC) (test code = 0425844482) 9.84 10*3/uL 1.88-7.09 H IMM GRAN x10^3 (test code = 8569149359) 0.04 10*3/uL 0.00-0.06 LYMPH x10^3 (test code = 731-0) 1.36 10*3/uL 1.32-3.29 MONO x10^3 (test code = 742-7) 0.64 10*3/uL 0.33-0.92 EOS x10^3 (test code = 711-2) 0.03-0.39 L BASO x10^3 (test code = 704-7) 0.01-0.07 Lab Interpretation (test code = 91246-1) [facility], [id number] 16:26:01BETA HCG<2.39Non- female and male patients: <5 mIU/mL09/01/2023 10:26 AM [facility] Gestational Age ?Range (mIU/mL) 1-10 ?Weeks ?13-73632414-02 Weeks ?82840-53840734-37 Weeks ?5270-32057062-19 Weeks ?1531-111670 Biotin has been reported to cause a negative bias, interpret resultsrelative to patient's use of biotin.[facility] HCG, QUANTITATIVE, [id number] 16:26:01BETA HCG<2.39Non- female and male patients: <5 mIU/mL09/01/2023 10:26 AM [facility] Gestational Age ?Range (mIU/mL) 1-10 ?Weeks ?[id number] Weeks ?29211-48727099-92 Weeks ?3203-22611848-39 Weeks ?1531-633628 Biotin has been reported to cause a negative bias, interpret resultsrelative to patient's use of biotin. [facility]bc with [id number] 23:24:46* Test Item Value Reference Range Interpretation Comme nts WBC (test code = 6690-2) 7.16 See_Comment [Automated messa ge] The system which [...] 34.3 g/dL 31.6-35.1 RDW-SD (test code = 28680-0) 38.7 fL 39.0-49.9 L RDW-CV (test code = 788-0) 12.0 % 12.0-15.5 PLT (test code = 777-3) 343 See_Comment [Automated messa ge] The system which generated this result transmitted reference range: 166 - 358 10*3/?L. The reference range was not used to interpret this result as normal/abnormal. MPV (test code = 42428-4) 8.8 fL 9.5-12.9 L NRBC/100 WBC (test code = 7760420552) 0.0 See_Comment [Automated Codementor ssage] The system which generated this result transmitted reference range: 0.0 - 10.0 /100 WBCs. The reference range was not used to interpret this result as normal/abnormal. NRBC x10^3 (test code = 5215091079) See_Comment [Automated messa ge] The system which generated this result transmitted reference range: 10*3/?L. The reference range was not used to interpret this result as normal/abnormal. GRAN MAT (NEUT) % (test code = 770-8) 43.2 % IMM GRAN % (test code = 4579233045) 0.00 % LYMPH % (test code = 736-9) 47.6 % MONO % (test code = 5905-5) 6.8 % EOS % (test code = 713-8) 2.0 % BASO % (test code = 706-2) 0.4 % GRAN MAT x10^3(ANC) (test code = 6133565191) 3.09 10*3/uL 1.88-7.09 IMM GRAN x10^3 (test code = 4897024806) 0.00-0.06 LYMPH x10^3 (test code = 731-0) 3.41 10*3/uL 1.32-3.29 H MONO x10^3 (test code = 742-7) 0.49 10*3/uL 0.33-0.92 EOS x10^3 (test code = 711-2) 0.14 10*3/uL 0.03-0.39 BASO x10^3 (test code = 704-7) 0.03 10*3/uL 0.01-0.07 Lab Interpretation (test code = 56758-2) [facility] [id number] 21:21:00* Test Item Value Reference Range Interpretation Comme nts POCT PREG (test code = 1605) Negative On board controls acceptable with C Line (test code = 3574) Yes POCT PREG LOT # (test code = 3575) POCT PREG TEST DATE ( test code = 3576) [facility] [id number] 21:21:00* Test Item Value Reference Range Interpretation Comme nts POCT PREG (test code = 1605) Negative On board controls acceptable with C Line (test code = 3574) Yes POCT PREG LOT # (test code = 3575) POCT PREG TEST DATE ( test code = 3576) [facility] WITH [id number] 17:16:52EXAM: US PELVIS COMPLETE WITH TRANSVAGINAL HISTORY: 38 years-old Female presenting for AUB LMP = 06/08/2023 TECHNIQUE: Transabdominal and transvaginal ultrasound imaging and colorDoppler evaluation of the pelvis was performed. Electrical Prospecting Supervisor images wereobtained for the record. COMPARISON: Ultrasound [...] [place]-sac: Small amount of free fluid is present.[facility] Test 2023-07-23 14:27:00* Test Item Value Reference Range Interpretation Comme [facility] POCT PREG (test code = 1605) Negative On board controls acceptable with C Line (test code = 3574) Yes POCT PREG LOT # (test code = 3575) POCT PREG TEST DATE ( test code = 3576) [facility] [id number] 14:27:00* Test Item Value Reference Range Interpretation Comme [facility] POCT PREG (test code = 1605) Negative On board controls acceptable with C Line (test code = 3574) Yes POCT PREG LOT # (test code = 3575) POCT PREG TEST DATE ( test code = 3576) [facility] MOLECULAR [id number] 22:04:53* Test Item Value Reference Range Interpretation Comme [facility] POCT Molecular Strep (test c ode = 74270-7) Negative Negative Lab Interpretation (test cod e = 11145-1) Normal [facility] CenterD-[id number] 06:58:09* Test Item Value Reference Range Interpretation Comments D-DIMER (test code = 3728993576) See_Comment [Automated message] The system which generated [...] a diagnosis. Lab Interpretation (test code = 48079-0) Normal [facility] CenterTR[facility]IN [id number] 06:32:18* Test Item Value Reference Range Interpretation Comme nts TROPONIN I (test code = 4113807721) 0.004 ng/mL <=0.034 TYRON (test code = [...] of biotin. Lab Interpretation (test code = 34090-8) Normal [facility]IPASE2023-[facility] 06:22:17* Test Item Value Reference Range Interpretation Comme nts LIPASE (test code = 6601726456) 105 U/L 0-220 Lab Interpretation (test cod e = 98474-3) Normal [facility]. METABOLIC PANEL (47300)2023-06-29 06:22:12* Test Item Value Reference Range Interpretation Comme nts NA (test code = 8351692997) 140 mmol/L 135-145 K (test code = 7015108570) 4.1 mmol/L 3.5-5.0 CL (test code = 4744820111) 104 mmol/L 98-108 CO2 TOTAL (test code = 2775229686) 29 mmol/L 23-31 AGAP (test code = 8565939146) 7 2-16 BUN (test code = 6380166103) 10 mg/dL 7-23 GLUCOSE (test code = 5223954691) 102 mg/dL 70-110 CREATININE (test code = 9540561599) 0.70 mg/dL 0.50-1.04 TOTAL BILI (test code = 1793720622) 0.4 mg/dL 0.1-1.1 CALCIUM (test code = 1998582348) 9.3 mg/dL 8.6-10.6 T PROTEIN (test code = 8818043922) 8.4 g/dL 6.3-8.2 H ALBUMIN (test code = 7571839509) 4.3 g/dL 3.5-5.0 ALK PHOS (test code = 9605263446) 82 U/L 34-122 ALTv (test code = 1742-6) 26 U/L 5-35 AST(SGOT) (test code = 2051307676) 27 U/L 13-40 eGFR (test code = 12448-5) 114.4 mL/min/1.73m2 CKD-EPI eGFR (2020). Assuming creatinine has been stable day-to-day for at least three months, the eGFR indicates Category G1 (>= 90 mL/min/1.73 m2) Lab Interpretation (test code = 30419-0) Abnormal [facility] WITH [id number] 06:07:18* Test Item Value Reference Range Interpretation Comme nts WBC (test code = 6690-2) 6.82 See_Comment [Automated [employer]oss[employer] CleanMyCRM] The system which generated this result transmitted reference range: 4.30 - 11.10 10*3/?L. The reference range was not used to interpret this result as normal/abnormal. RBC (test code = 789-8) 4.39 See_Comment [Automated [employer] CleanMyCRM] The system which generated this result transmitted [...] 34.8 g/dL 31.6-35.1 RDW-SD (test code = 38363-4) 38.2 fL 39.0-49.9 L RDW-CV (test code = 788-0) 11.8 % 12.0-15.5 L PLT (test code = 777-3) 353 See_Comment [Automated Blossoma ge] The system which generated this result transmitted reference range: 166 - 358 10*3/?L. The reference range was not used to interpret this result as normal/abnormal. MPV (test code = 63337-6) 9.0 fL 9.5-12.9 L NRBC/100 WBC (test code = 9635099961) 0.0 See_Comment [Automated Codementor ssage] The system which generated this result transmitted reference range: 0.0 - 10.0 /100 WBCs. The reference range was not used to interpret this result as normal/abnormal. NRBC x10^3 (test code = 9514158340) See_Comment [Automated Blossoma ge] The system which generated this result transmitted reference range: 10*3/?L. The reference range was not used to interpret this result as normal/abnormal. GRAN MAT (NEUT) % (test code = 770-8) 35.0 % IMM GRAN % (test code = 5788867996) 0.30 % LYMPH % (test code = 736-9) 53.8 % MONO % (test code = 5905-5) 7.6 % EOS % (test code = 713-8) 2.9 % BASO % (test code = 706-2) 0.4 % GRAN MAT x10^3(ANC) (test code = 4945651290) 2.38 10*3/uL 1.88-7.09 IMM GRAN x10^3 (test code = 9537334957) 0.00-0.06 LYMPH x10^3 (test code = 731-0) 3.67 10*3/uL 1.32-3.29 H MONO x10^3 (test code = 742-7) 0.52 10*3/uL 0.33-0.92 EOS x10^3 (test code = 711-2) 0.20 10*3/uL 0.03-0.39 BASO x10^3 (test code = 704-7) 0.03 10*3/uL 0.01-0.07 Lab Interpretation (test code = 80570-6) Abnormal [facility] MOLECULAR [id number] 21:21:49* Test Item Value Reference Range Interpretation Comme nts POCT Molecular FluA (test co de = 27518-5) Negative Negative POCT Molecular FluB (test co de = 77289-0) Negative Negative Lab Interpretation (test cod e = 75651-9) Normal [facility] SARS-COV-2 ANTIGEN (BINAX NOW)2023-05-22 21:02:00* Test Item Value Reference Range Interpretation Comme nts POCT SARS-COV-2 ANTIGEN (test code = 94587-2) Not Detected Not Detected On board controls acceptable with C Line (test code = 3574) Yes TYRON (test code = TYRON) accurate developme nt and interpretation of all internal controls Lab Interpretation (test code = 55693-8) Normal [facility]2023-05-16 01:27:12* Test Item Value Reference Range Interpretation Comme nts Height (test code = 1920269863) 66 in Weight (test code = 3827252831) 255 lbs Systolic BP (test code = 6218266912) 117 mmHg Diastolic BP (test code = 4025633335) 71 mmHg Heart Rate (test code = 2010839137) 93 bpm Ao root diam (test code = 7065054072) 2.80 cm Aortic root (test code = 9044283502) 2.8 cm Ao root annulus (test code = 3925464416) 2.8 cm BSA (test code = 1962097872) 2.22 m2 LVOT diameter (test code = 7874642086) 2.23 cm LVOT area (test code = 8516860161) 3.90 cm2 LA size (test code = 6251401095) 3.1 cm ACS (test code = 5033564443) 2.25 cm LVIDD (test code = 2292673755) 4.20 cm Left Ventricular End Diastolic Volume by Teichholz Method (test code = 0187899) 78.5 mL IVS (test code = 3680733172) 0.86 cm Interventricular Septum Diastolic Thickness by 2D (test code = 8970973) 0.86 cm LVPWD (test code = 9956415207) 0.77 cm PW (test code = 6613576463) 0.77 cm 0.6-1.1 EF(Teich) (test code = 9346504733) 60.00 % LVIDS (test code = 9259896957) 2.90 cm Left Ventricular End Systolic Volume by Teichholz Method (test code = 0301070) 31.4 mL FS (test code = 2658570759) 32 % EF - 2D (test code = 46467412) 60.00 % TR Peak Darek (test code = 2941297200) 275.9 cm/s Triscuspid Valve Regurgitation Peak Gradient (test code = 9898152668) 30.5 mmHg PV PEAK VELOCITY (test code = 1730117341) 104.3 cm/s PV peak gradient (test code = 8199635284) 4.4 mmHg LAV(MOD-sp4) (test code = 2769555886) 28.30 mL MV E-F slope (test code = 9570832081) 47.10 cm/s MV Peak E Darek (test code = 6290252470) 59.7 cm/s MV Peak A Darek (test code = 3760468219) 65.0 cm/s E/A ratio (test code = 0196690358) 0.92 ratio MV valve area p 1/2 method (test code = 4185313726) 4.20 cm2 MV dec slope (test code = 8005022891) 338.50 cm/s2 MV P1/2t max darek (test code = 3895883109) 60.30 cm/s MR max PG (test code = 3239330868) 58.70 mm[Hg] MR max darek (test code = 2109089617) 383.00 cm/s Mr max darek (test code = 0840117784) 383.0 m/s LVOT stroke volume (test code = 3703177822) 79.00 cm3 LVOT peak darek (test code = 7379867787) 128.4 cm/s LVOT mn grad (test code = 4133881689) 2.8 mmHg AV LVOT peak gradient (test code = 7853044167) 6.6 mmHg LVOT peak VTI (test code = 2093844068) 20.2 cm LV V1 mean (test code = 3213474835) 75.70 cm/s Aortic valve mean velocity (test code = 6480077728) 94.9 cm/s Ao peak darek (test code = 3777468155) 158.0 cm/s Ao VTI (test code = 3633608854) 25.8 cm AV area by cont VTI (test code = 3280165849) 3.1 cm2 AV area peak darek (test code = 8793917289) 3.2 cm2 Ao max PG (test code = 0148643211) 10.00 mm[Hg] AV peak gradient (test code = 1792384374) 10.0 mmHg AV valve area (test code = 4755870989) 3.10 cm2 AV mean gradient (test code = 4545795718) 4.3 mmHg LA Volume Index (BP) (test code = 9046574642) 15.3 mL/m2 LA volume (BP) (test code = 2395867327) 33.9 mL LAV(MOD-sp2) (test code = 2820618042) 39.70 mL Radiology Study observation (narrative) (test code = 81350-5) TYRON (test code = TYRON) ?Left?Ventricle: Left [...] 2D, color flow Doppler and spectral Doppler. [facility] SARS-COV-2 ANTIGEN (BINAX NOW)2023-04-03 20:55:00* Test Item Value Reference Range Interpretation Comme [facility] POCT SARS-COV-2 ANTIGEN (test code = 94048-2) Not Detected Not Detected On board controls acceptable with C Line (test code = 3574) Yes TYRON (test code = TYRON) accurate developme nt and interpretation of all internal controls Lab Interpretation (test code = 41318-6) Normal [facility] SARS-COV-2 ANTIGEN (BINAX NOW)2023-03-20 21:30:00* Test Item Value Reference Range Interpretation Comme [facility] POCT SARS-COV-2 ANTIGEN (tavon t code = 64417-4) Not Detected Not Detected On board controls acceptable with C Line (test code = 3574) Yes Lab Interpretation (test cod e = 17585-5) Normal [facility] [id number] 20:54:00* Test Item Value Reference Range Interpretation Comme nts POCT PREG (test code = 1605) Negative On board controls acceptable with C Line (test code = 3574) Yes POCT PREG LOT # (test code = 3575) POCT PREG TEST DATE ( test code = 3576) [facility] [id number] 01:04:20* Test Item Value Reference Range Interpretation Comme nts PREG SERUM (test code = 3512697949) Negative TYRON (test code = TYRON) Less than 10 IU/L. ?If low titer or ectopic is suspected, resubmit specimen in 48-72 hours. [facility]. METABOLIC PANEL (11424)2022-02-18 00:59:51* Test Item Value Reference Range Interpretation Comme nts NA (test code = 7906543451) 139 mmol/L 135-145 K (test code = 4118399854) 4.2 mmol/L 3.5-5 CL (test code = 9874564218) 104 mmol/L 98-108 CO2 TOTAL (test code = 5400302493) 27 mmol/L 23-31 AGAP (test code = 8623453806) 2-16 BUN (test code = 0269748268) 9 mg/dL 7-23 GLUCOSE (test code = 0761254690) 95 mg/dL 70-110 CREATININE (test code = 8053143217) 0.78 mg/dL 0.5-1.04 TOTAL BILI (test code = 6684667934) 0.5 mg/dL 0.1-1.1 CALCIUM (test code = 9753778588) 9.2 mg/dL 8.6-10.6 T PROTEIN (test code = 3012183656) 7.6 g/dL 6.3-8.2 ALBUMIN (test code = 7453492857) 4.5 g/dL 3.5-5 ALK PHOS (test code = 5243090302) 65 U/L 34-122 ALTv (test code = 1742-6) 22 U/L 5-35 AST(SGOT) (test code = 7472057863) 23 U/L 13-40 eGFR (test code = 0195270437) mL/min/1.73m2 TYRON (test code = TYRON) Association [...] or urine or abnormalities in imaging tests). [facility] WITH [id number] 00:41:49* Test Item Value Reference Range Interpretation Comme nts WBC (test code = 6690-2) See_Comment [[employer] The system which generated this result transmitted reference range: 4.30 - 11.10 10*3/?L. The reference range was not used to interpret this result as normal/abnormal. RBC (test code = 789-8) See_Comment [[employer] The system which generated this result transmitted [...] 33.6 g/dL 31.6-35.1 RDW-SD (test code = 08152-7) 40.7 fL 39-49.9 RDW-CV (test code = 788-0) 12.2 % 12-15.5 PLT (test code = 777-3) See_Comment [[employer] The system which generated this result transmitted reference range: 166 - 358 10*3/?L. The reference range was not used to interpret this result as normal/abnormal. MPV (test code = 26043-1) 9.6 fL 9.5-12.9 NRBC/100 WBC (test code = [id number]) See_Comment [[employer]] The system which generated this result transmitted reference range: 0.0 - 10.0 /100 WBCs. The reference range was not used to interpret this result as normal/abnormal. NRBC x10^3 (test code = [id number]) See_Comment [Automated me ssage] The system which generated this result transmitted reference range: 10*3/?L. The reference range was not used to interpret this result as normal/abnormal. GRAN MAT (NEUT) % (test code = 770-8) 37.5 % IMM GRAN % (test code = 3991709130) 0.20 % LYMPH % (test code = 736-9) 50.8 % MONO % (test code = 5905-5) 8.7 % EOS % (test code = 713-8) 2.1 % BASO % (test code = 706-2) 0.7 % GRAN MAT x10^3(ANC) (test code = 9370940285) 2.10 10*3/uL 1.88-7.09 IMM GRAN x10^3 (test code = 4627854799) 0-0.06 LYMPH x10^3 (test code = 731-0) 2.85 10*3/uL 1.32-3.29 MONO x10^3 (test code = 742-7) 0.49 10*3/uL 0.33-0.92 EOS x10^3 (test code = 711-2) 0.12 10*3/uL 0.03-0.39 BASO x10^3 (test code = 704-7) 0.04 10*3/uL 0.01-0.07 [id number]:22:00* Test Item Value Reference Range Interpretation Comme nts POCT PREG (test code = 1605) negative Lab Interpretation (test cod e = 97187-3) [facility] [id number] 03:45:37* Test Item Value Reference Range Interpretation Comme nts NA (test code = 3280569086) 140 mmol/L 135-145 K (test code = 6975502190) 3.8 mmol/L 3.5-5.0 CL (test code = 3253294535) 104 mmol/L 98-108 CO2 TOTAL (test code = 9003928003) 24 mmol/L 23-31 AGAP (test code = 8302185199) 2-16 BUN (test code = 7995650575) 12 mg/dL 7-23 GLUCOSE (test code = 6517039244) 94 mg/dL 70-110 CREATININE (test code = 3459977409) 0.92 mg/dL 0.50-1.04 TOTAL BILI (test code = 0496954381) 1.0 mg/dL 0.1-1.1 CALCIUM (test code = 8386918100) 8.9 mg/dL 8.6-10.6 T PROTEIN (test code = 4588050125) 8.1 g/dL 6.3-8.2 ALBUMIN (test code = 5100842478) 4.8 g/dL 3.5-5.0 ALK PHOS (test code = 4091424331) 68 U/L 34-122 ALTv (test code = 1742-6) 19 U/L 5-35 AST(SGOT) (test code = 0551898786) 32 U/L 13-40 eGFR (test code = 3939937290) mL/min/1.73m2 TYRON (test code = TYRON) Association [...] or urine or abnormalities in imaging tests). [facility], [id number] 03:44:57* Test Item Value Reference Range Interpretation Comme nts LIPASE (test code = 2776023844) 64 U/L 0-220 Lab Interpretation (test cod e = 09575-8) [facility] Center[facility] with [id number] 03:36:15* Test Item Value Reference Range Interpretation Comme nts WBC (test code = 6690-2) See_Comment [Automated ActionPlanner] The system which generated this result transmitted reference range: 4.30 - 11.10 10*3/?L. The reference range was not used to interpret this result as normal/abnormal. RBC (test code = 789-8) See_Comment [Automated ActionPlanner] The system which generated this result transmitted [...] 33.9 g/dL 31.6-35.1 RDW-SD (test code = 64193-6) 39.5 fL 39.0-49.9 RDW-CV (test code = 788-0) 11.7 % 12.0-15.5 L PLT (test code = 777-3) See_Comment [Automated messa ge] The system which generated this result transmitted reference range: 166 - 358 10*3/?L. The reference range was not used to interpret this result as normal/abnormal. MPV (test code = 11026-5) 9.2 fL 9.5-12.9 L NRBC/100 WBC (test code = 3883276294) See_Comment [Automated me ssage] The system which generated this result transmitted reference range: 0.0 - 10.0 /100 WBCs. The reference range was not used to interpret this result as normal/abnormal. NRBC x10^3 (test code = 4623561586) <0.01 See_Comment [Automated messa ge] The system which generated this result transmitted reference range: 10*3/?L. The reference range was not used to interpret this result as normal/abnormal. GRAN MAT (NEUT) % (test code = 770-8) 42.4 % IMM GRAN % (test code = 8276301913) 0.80 % LYMPH % (test code = 736-9) 45.8 % MONO % (test code = 5905-5) 9.7 % EOS % (test code = 713-8) 0.5 % BASO % (test code = 706-2) 0.8 % GRAN MAT x10^3(ANC) (test code = 9239124060) 2.62 10*3/uL 1.88-7.09 IMM GRAN x10^3 (test code = 0796966262) 0.05 10*3/uL 0.00-0.06 LYMPH x10^3 (test code = 731-0) 2.83 10*3/uL 1.32-3.29 MONO x10^3 (test code = 742-7) 0.60 10*3/uL 0.33-0.92 EOS x10^3 (test code = 711-2) 0.03 10*3/uL 0.03-0.39 BASO x10^3 (test code = 704-7) 0.05 10*3/uL 0.01-0.07 Lab Interpretation (test code = 38454-1) Abnormal [facility] [id number] 03:18:00* Test Item Value Reference Range Interpretation Comme nts POCT PREG (test code = 1605) negative On board controls acceptable with C Line (test code = 3574) positive POCT PREG LOT # (test code = 3575) [id number] POCT PREG TEST DATE ( test code = 3576) 05-09-2023 Lab Interpretation (test cod e = 41689-7) [facility] History and Physical Notes Date/Time [...] answered. 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 Tobacco Use Smoking status: Every Day [...] op Jarrod Mercado MD 08/13/2023 2:37 PM [facility] Procedure Notes Date/Time Note Provider Source 2023-09-02 18:30:29 Procedure(s): LAPAROSCOPIC TOTAL ABDOMINAL HYSTERECTOMY; LAPAROSCOPIC SALPINGECTOMY; CYSTOSCOPY Pre-Procedure Diagnose(s): Abnormal uterine bleeding Post-Procedure Diagnose(s): Abnormal uterine bleeding; Status post hysterectomy; Status post bilateral salpingectomy; Status post cystoscopy TOTAL LAPAROSCOPIC HYSTERECTOMY Procedure: Total Laparoscopic Hysterectomy, bilateral salpingectomy, and cystoscopy Date of Service: 09/02/2023 Faculty Surgeon: Jarrod Mercado MD Marine Radio Installer And Servicer Surgeon: Jonathon Braun MD (no qualified resident [...] condition. Jarrod Mercado MD 09/02/2023 6:32 PM [facility] Notes Date/Time Note Provider Source 2024-03-10 09:51:06 [...] by Cheikh Boyle MD Provider Review Required Hfnfhx1703/09/2024 07:44 PM Protocol Details This refill cannot be delegated Valid encounter within last 12 months To be filled at: [facility] - [address], [place] Last Refilled: 08/17/2020 Recent Visits Date Type Provider Dept 08/19/23 Office Visit Cheikh Boyle MD [facility] Family Medicine 05/13/23 Office Visit Cheikh Boyle MD [facility] Family Medicine 04/01/23 Office Visit Cheikh Boyle MD [facility] Showing recent visits within past 540 days with a meds authorizing provider and meeting all other requirements Future Appointments No visits were found meeting these conditions. Showing future appointments within next 150 days with a meds authorizing provider and meeting all other requirements Camelia Franks MA [facility] 2023-12-28 14:01:43 Addended by: PROIMSE MULLEN RPH on: 12/28/2023 02:01 PM Modules accepted: Orders [facility] 2023-12-22 09:14:54 12/21: First attempt to contact Virgie Frausto to remind to complete SVR12 labs. No answer. Left voicemail asking patient to return call to clinical pharmacist at [phone]. If no return call from patient, will attempt again at a later date. 12/27: Second attempt to contact Virgie Frausto to remind to complete SVR12 labs. No answer. Left voicemail asking patient to return call to clinical pharmacist at [phone]. If no return call from patient, will attempt again at a later date. Additionally, sent [employer] message. 01/05: Third attempt to contact Virgie Frausto to remind to complete SVR12 labs. No answer. Left voicemail asking patient to return call to clinical pharmacist at [phone]. If no return call from patient, will attempt again at a later date. [employer] message read, but no response. Promise Mullen PharmD Clinical Pharmacist - GI/Hepatology [phone] Promise Mullen [facility] 2023-12-03 23:30:37 53 dB. Hearing loss is not measured in percentages. If there are any questions pt. Should schedule an appt. To discuss. BRIDGET-OTOLARYNGOLOGY STAFF [facility] 2023-10-19 14:22:30 Virgie Frausto is a 38 year old female Pt called requesting to discuss with clinic and have forms of hospital uploaded to [employer] from hospital visit on 09/02/23. Stated that she was not able to find any documentation on chart. Please advise. Jaspreet Queen [facility] 2023-09-24 11:18:02 Patient Reassessment: Hepatitis C Therapy [...] Fibrosis score: F1 Hep C VL: <10 (1/10/24) Hepatitis B screening: HBsAg (no units) Date Value 07/01/2023 Negative HBsAg Semi-Quantitative (no units) Date Value 07/01/2023 0.06 Allergies: No Known Allergies Immunizations: Immunization History Administered Date(s) Administered SARS-COV-2 COVID 19 ALLY SUCROSE VACCINE 12+, [id number], 0.3 ML (30 MCG), IM PFIZER (TRAN [...] calcium containing agents before consulting with the photographic technician or hepatology clinical pharmacist. Drug Interactions: There [...] deemed appropriate. Patient receives their medication from [facility] Pharmacy. Safety Precautions: status: female - of [...] encouraged to call the hepatology pharmacist at [phone] with questions. The patient will be contacted to complete another reassessment in 1 month. Promise Mullen PharmD Clinical Pharmacist - GI/Hepatology [phone] [facility] 2023-09-16 13:37:55 Notified patient of covid test results. Pt voiced understanding with no further concerns at this time FINA Rubi RN [facility] 2023-09-08 11:05:[address] Mercado: [10:48 AM] Jarrod Mercado Elizabeth G. she cant come in as her "car is not working at the moment". I will give her another refill. If she still has pain after finishing this, she needs to come in for evaluation (in clinic or ER). [10:49 AM] Jarrod Mercado please make sure you document that we advised pt to come in and be seen but she cannot. Also talk to her about Medicaid transportation. [employer] message sent. CARLOTTA ROSADO RN 09/08/2023 11:05 AM CARLOTTA ROSADO RN 09/08/2023 11:05 AM OW SHADE ESTIMATOR Carlotta Rosado RN [facility] 2023-09-08 10:17:17 Pt stated that her pain goes down to a 4 and when it Tylenol/Ibuprofen wears off- it goes to a 7. Explained to pt that she will have some pain after procedure. I will let Dr. Mercado know and will call her back. No drainage or redness at incision sites. Verbalized understanding. CARLOTTA ROSADO RN 09/08/2023 10:24 AM [facility] 2023-09-07 15:16:29 [employer] message sent. CARLOTTA ROSADO RN 09/07/2023 3:16 PM -[facility] Carlotta Rosado RN [facility] 2023-09-04 17:15:39 @[address] [place] [address] on for pt to return call. CARLOTTA ROSADO RN 09/04/2023 5:16 PM [facility] 2023-09-04 16:23:18 Patient states she is taking the tylenol and ibuprofen and it is not helping. She was told by the nurse to call back today for a follow up. [facility]/pharmacy #[id number] -[facility] Lena Merritt [facility] 2023-09-03 16:23:50 Name and verified. Per Dr. Belcher: reassured her that her surgery was uncomplicated. Make sure she ambulated so she can minimized gas pain. Take her gas-X BID. Take Ibuprofen with Tylenol 500 mg Q 6 hrs if needed. Take [place] only PRN Verbalized understanding. CARLOTTA ROSADO RN 09/03/2023 4:24 PM OW SHADE ESTIMATOR Carlotta Rosado RN [facility] 2023-09-03 16:12:05 Name and verified. pt called stating that she is in a lot of pain and feels that [place] # 4 is not enough. Pt last [...] advised. CARLOTTA ROSADO RN 09/03/2023 4:12 PM [facility] 2023-09-03 15:02:51 Pt is calling back says she in pain and want to make sure she has enough pain meds so want to discuss, had hysterectomy yesterday. FINA Perdomo [facility] 2023-09-03 13:00:35 Pt want to discuss pain meds that were prescribed says it will not be enough to get her through her pain. Had surgery yesterday. [facility] 2023-09-03 08:00:00 Incision sites x [address] Mercado; pt instructed to sponge bathe for the next few days and remove drsgs once she showers and drsgs get wet; Understanding verbalized FINA Alonzo RN [facility] 2023-09-03 08:00:[address] Mercado; Instructed by Dr Mercado NO tampons, douching, sex, tub baths, swimming, or lifting more than 10lbs; Understanding Verbalized OW SHADE ESTIMATOR [facility] 2023-09-02 17:00:02 CALLED AND UPDATED PT'S BHARAT ATKINS, AT 1701. - TOLU GONZALES. OW SHADE ESTIMATOR Sean Maurice RN [facility] 2023-09-01 16:11:36 Patient dropped of pre op clearance form from PCP. Clearance form given to Dr. Mercado. Dr. Mercado states she will perform the scheduled surgery tomorrow 09/02/2023. Camelia Lew with surgery scheduling advised. Patient given number to contact pre op nurse for pre op instructions. Ulices Adler RN 09/01/2023 4:12 PM [facility] 2023-09-01 12:52:20 Pt called. She will fruit or nut picker last OV with Dr. Mercado and Dr. Hall with lab results to take with her PCP appt today at 3pm. Advised pt to fill out a KULDIP and when her appt is done, she must come by office to either drop off clearance or cancel her procedure. Verbalize understanding. CARLOTTA ROSADO RN 09/01/2023 12:54 PM OW SHADE ESTIMATOR Carlotta Rosado RN [facility] 2023-09-01 11:39:17 Pt called. [facility] [phone]. They need to know what exactly needs to be done. If we have a form. Called office. Explained to them that we do not have a form. That she must be cleared by today to have surgery tomorrow. Office stated that they will call pt. CARLOTTA ROSADO RN 09/01/2023 11:42 AM [facility] 2023-09-01 09:59:32 Pt called office. Pt stated that she fired Dr. Hernandez has her PCP. Advised pt that she must be cleared by a PCP before surgery to be done. Explained the importance of having clearance and her recovery. Pt stated that she will find a PCP and get cleared today and will call us back. Dr. Mercado advised. Supervisor Prep/Site Safety Representative also advised. [facility] 2023-09-01 09:15:00 Images from the original note were not included. Venipuncture collection performed by clean technique on the right anticubitus. Total of 1 attempts were made. Slight pressure and a bandage/dressing were applied to the site(s). The patient experienced no complications. The following specimens were processed according to instructions and sent to [facility] laboratories per lab order on 09/01/2023 : LT BLUE SST 1 RED LAV 3 PPT DK GREEN (LiHep) DK GREEN (SodH) TRAN DK BLUE (K2) DK BLUE (S) ACD Blood Culture NIPT/NTD [facility] 2023-09-01 09:15:00 Addended by: WILLIAMS NEGRO on: 09/01/2023 01:19 PM Modules accepted: Orders -[facility] Williams Negro [facility] 2023-09-01 08:59:[address] Mercado- Unfortunately, she [...] advised. CARLOTTA ROSADO RN 09/01/2023 9:04 AM [facility] 2023-09-01 07:52:08 Pt want to make sure clinic received her clearance for surgery from her other physicians. -[facility] Nata Perdomo [facility] 2023-08-31 13:11:37 Patient Reassessment: Hepatitis C Therapy [...] SARS-COV-2 COVID 19 ALLY SUCROSE VACCINE 12+, [id number], 0.3 ML (30 MCG), IM PFIZER (TRAN [...] calcium containing agents before consulting with the photographic technician or hepatology clinical pharmacist. Drug Interactions: There [...] deemed appropriate. Patient receives their medication from [facility] Pharmacy. Safety Precautions: status: female - of [...] encouraged to call the hepatology pharmacist at [phone] with questions. The patient will be contacted to complete another reassessment in 1 month. Promise Mullen PharmD Clinical Pharmacist - GI/Hepatology [phone] -[facility] Promise Mullen [facility] 2023-08-31 09:53:47 Images from the original note were not included. Your procedure is at [facility] on 09/02/23. The address is [address] [place] [address], [address]. [facility] nursing staff will call you [...] voiced no further questions at this time. [facility] 2023-08-28 08:43:12 First attempt to contact Virgie Frausto to verify compliance and assess tolerance of her specialty medication, Mavyret. No answer. Left voicemail asking patient to return call to clinical pharmacist at [phone]. If no return call from patient, will attempt again at a later date. Promise Mullen PharmD Clinical Pharmacist - GI/Hepatology [phone] OW SHADE ESTIMATOR Promise Mullen [facility] 2023-08-27 14:50:08 Would recommend to await Dr. Boyle's return Please let patient know OW SHADE ESTIMATOR GEODUCK DIVER-FAMILY MIDLEVEL PROVIDER [facility] 2023-08-27 14:10:41 Per patient, During OV with Dr. Boyle informed her if she can't get seen for psychiatrist she'll be cleared based on lab results come back normal. Patient is needing a clearance for surgery for Dr. Mercado. OW SHADE ESTIMATOR Malena Rey MA [facility] 2023-08-27 13:42:59 Pcp sent referral for psychiatry and psychological eval . Pending that. Noted in chart for its for Hysterectomy. To follow up on that OW SHADE ESTIMATOR FM-FAMILY MEDICINE STAFF [facility] 2023-08-27 11:01:07 Patient is needing clearance for surgery. FINA Rey MA [facility] 2023-08-27 10:25:21 CBC which looks at blood count looks relatively stable. No concern Cmp which looks at kidney, liver and electrolytes looks okay. OW SHADE ESTIMATOR -FAMILY MEDICINE STAFF [facility] 2023-08-26 13:21:11 Please view labs for patient, patient is wanting lab results due to having procedure on 09-02-2023 OW SHADE ESTIMATOR Malena Rey MA [facility] 2023-08-21 07:43:25 Spoke with patient and informed her labs have not been reviewed yet by Dr. Boyle. Once they have been reviewed we will give her a call with results. Patient understood and has no further questions. FINA Rey MA [facility] 2023-08-20 11:17:34 Virgie Frausto is a 38 year old female Patient called stating that she had labs done on 08/19 and would like someone to give her a call to explain those results and to make sure there is not going to be any affect for her surgery that is coming up on 09/02 Please advise OW SHADE ESTIMATOR Harsh Garcia [facility] 2023-08-19 16:30:00 Images from the original note were not included. Venipuncture collection performed by clean technique on the right forearm(s). Total of 1 attempts were made. Slight pressure and a bandage/dressing were applied to the site(s). The patient experienced no complications. The following specimens were processed according to instructions and sent to [facility] laboratories per lab order on 08/19/2023 : LT BLUE 1 SST RED 1 LAV 1 PPT DK GREEN (LiHep) DK GREEN (SodH) TARN DK BLUE (K2) DK BLUE (S) ACD Blood Culture NIPT/NTD [facility] 2023-08-12 13:13:38 Patient Reassessment: Hepatitis C Therapy DATE: 08/12/23 Virgie Frausto is a 38 year old y/o Black or female referred to PharmD by Tawio Wharton NP for medication management. Summary of [...] mouth in the morning. 07/24/23 Prem, Taiwo, MICA INSPECTOR dicyclomine 20 mg tablet Take 1 tablet [...] 1 tablet in the evening. 04/01/23 Cheikh Byole MD triamcinolone acetonide 0.1 % cream Apply [...] calcium containing agents before consulting with the photographic technician or hepatology clinical pharmacist. Drug Interactions: There are no significant drug-drug interactions Drug-Food Interactions There are no significant drug-food interactions. This medication should be taken with food. Adverse effects: Virgie Brian Frausto reports having the following drug reactions: headache, right sided cramps Adherence: Refill history was reviewed with the patient. Virgie Brian Frausto states they are adherent with regimen. The patient was reminded about the refill process and re-educated on the importance of adherence. Overall medication adherence status will be discussed with the care team as deemed appropriate. Patient receives their medication from [facility] Pharmacy. Safety Precautions: status: female - of [...] encouraged to call the hepatology pharmacist at [phone] with questions. The patient will be contacted to complete another reassessment in 1 month. Promise Mullen PharmD Clinical Pharmacist - GI/Hepatology [phone] OW SHADE ESTIMATOR Promise Mullen [facility] - Health 2023-08-12 10:42:47 First attempt to contact Virgie Frausto to verify compliance and assess tolerance of her specialty medication, Mavyret. No answer. Left voicemail asking patient to return call to clinical pharmacist at [phone]. If no return call from patient, will attempt again at a later date. Promise Mullen PharmD Clinical Pharmacist - GI/Hepatology [phone] FINA Mullen [facility] - Health 2023-07-24 13:49:19 Initial Assessment: Hepatitis C Virus [...] interaction identified. Patient will receive treatment from [facility] Pharmacy. Start date: 08/03/23 Anticipated end date: [...] Promise Mullen PharmD Clinical Pharmacist - GI/Hepatology [phone] OW SHADE ESTIMATOR Promise Mullen [facility] 2023-07-24 13:45:19 Patient Education: Hepatitis C Therapy [...] and calcium containing agents before consulting with photographic technician or hepatology clinical pharmacist. Drug-drug and drug-food interactions with the new therapy were assessed and reviewed with the patient. Appropriate recommended vaccinations were reviewed and discussed with the patient. Pharmacy Information: The patient was notified that their medication will be filled at [facility] Pharmacy. The patient was instructed to notify their clinic nurse coordinator by phone at [phone] when they receive their medication to coordinate [...] encouraged to call the hepatology pharmacist at [phone] with any questions. The patient will be contacted within 21 days after initiation of therapy for a complete medication assessment. Promise Mullen PharmD Clinical Pharmacist - GI/Hepatology [phone] [facility] 2023-04-28 15:51:58 Formatting of this n ote might be different from the original. Pt requesting refill. Varsha Garcia RN [facility] 2023-04-22 08:25:36 Formatting of this n ote might be different from the original. No further action needed. Malena Rey MA [facility] 2023-04-22 08:24:57 Formatting of this n ote might be different from the original. No further action needed. Malena Rey MA [facility] 2023-04-21 17:57:48 Formatting of this n ote might be different from the original. Referral/Consult Hep C w/o coma, chronic - Alternative therapy sent to [facility] pharmacy - Consult/Referral Clinical Manager Environmental Affairs [facility] 2023-04-21 17:15:42 Formatting of this n ote is different from the original. Alternative Medication Hep C w/o coma, chronic - Alternative Rx sent, let patient know, and to follow-up as scheduled. - sofosbuvir-velpatasvir (EPCLUSA) 400-100 mg; Take 1 tablet by mouth in the morning. Dispense: 84 tablet; Refill: 0 Cheikh Boyle MD, MPH Civil Engineering Project Manager, Department of Family Medicine [facility] [place] 04/21/2023 5:16 PM Future Appointments In 1 week Nurse, [facility] [place] In 2 weeks Cheikh Boyle MD [facility], [facility] 2023-04-21 16:06:22 Summary: PA denial Images from the original note were not included. Nenita, the prior authoirzation has been denied for [...] to me. Thank you. Juan M Faria [facility] 2023-04-21 11:23:27 Formatting of this n ote might be different from the original. Pt is calling wanting update on med alternative. Nata Perdomo [facility] 2023-04-20 15:26:40 Formatting of this n ote might be different from the original. Spoke with [facility] pharmacy. [place] denied for Mavyret, Epclusa is preferred alternative. Can you please change rx to Epclusa? Thank You! Sonal Espinoza RN [facility] 2023-04-14 11:17:57 Formatting of this n ote might be different from the original. Pt called and states that medication is needing a prior authorization. Please advise. glecaprevir-pibrentasvir (MAVYRET) 100-40 mg Steph Pollard [facility] 2023-03-30 17:06:36 Formatting of this n ote [...] Refusal: Patient needs appointment Blanka Moss LVN [facility] 2023-03-30 16:59:54 Message from [employer] : Refills have been requested for the following medications: topiramate 50 mg tablet [Thierno Bueno] Preferred pharmacy: [id number] Delivery method: Pickup Medication renewals requested in this message routed separately: carBAMazepine 400 mg 12 hr tablet [Cheikh Boyle] doxepin 50 m g capsule [Cheikh Boyle] buPROPion SR (WELLBUTRIN SR) 150 mg SR tablet [Cheikh Boyle] [facility] 2023-03-27 14:08:05 Formatting of this n ote [...] strong er warnings given. ER visit at [facility] on 03/25- pt reports that what she [...] Thursday. Pt verbalizes understanding. Sonal Espinoza RN [facility] 2023-03-26 20:13:24 Formatting of this n ote might be different from the original. Informed pt per provider she needs to go to the er. Mary Ellen Molina MA [facility] 2023-03-26 19:54:03 Formatting of this n ote might be different from the original. Please advise [facility] 2023-03-26 16:52:04 Formatting of this n ote might be different from the original. Patient would like a nurse to call her. She is in a lot of pain. Candace Last [facility] 2023-03-26 12:14:32 Formatting of this n ote might be different from the original. [employer] message sent. CARLOTTA ROSADO RN 03/26/2023 12:14 PM Carlotta Rosado RN [facility] 2023-03-26 11:05:17 Formatting of this n ote might be different from the original. Pt called and states that she is taking Naproxen and Tylenol. She states that medication isn't working and is requesting to speak with a nurse to possibly get something called in. She tried getting sooner appointment, but there were no sooner available times. Please advise. Call back number: [phone] Steph Pollard [facility] 2023-03-25 16:09:03 Formatting of this n ote might be different from the original. Contacted patient. Patient states she is currently at ER. Patient advised to contact us for any f/u needed after visit. Ulices Adler RN 03/25/2023 4:09 PM Ulices Adler RN [facility] 2023-03-25 09:58:02 Formatting of this n ote might be different from the original. Attempted to contact patient. No answer, unable to leave . is full. Ulices Adler RN 03/25/2023 9:58 AM T [facility] 2023-03-24 16:34:23 Formatting of this n ote might be different from the original. Attempted to contact patient. No answer, VM left. Ulices Adler RN 03/24/2023 4:34 PM [facility] 2023-03-24 16:16:03 Formatting of this n ote [...] a nurse. Please advise. Call back number: [phone] Steph Pollard [facility]
[2024-11-07] MEDS ORDERED: methocarbamoL 750 MG TAB ONE (23:37)
[2024-11-07] MEDS ORDERED: KETOROLAC 30 MG/ML INJ ONE (23:38)
[2024-11-08 00:48] LABS: Calcium Oxalate Crystals- Ur Moderate /HPF (None Seen); Specific Gravity > 1.030 (1.005-1.030); Sqamous Epithelial <5 /HPF (None Seen); Urine Bacteria None Seen /HPF (<20); Urine Bilirubin NEGATIVE (Negative); Urine Blood 1+ (Negative); Urine Clarity Turbid (Clear); Urine Color Yellow (Yellow); Urine Culture Reflex Order NOT NEEDED; Urine Glucose NEGATIVE (Negative); Urine Ketones NEGATIVE (Negative); Urine Micro Reflex YN NO BILL MICROSCOPIC; Urine Mucus Slight /HPF (None Seen); Urine Nitrite NEGATIVE (Negative); Urine Protein TRACE (Negative); Urine RBC 21-50 /HPF (None Seen); Urine Urobilinogen 2+ (Normal); Urine WBC <5 /HPF (<5)
[2024-11-08] MEDS ORDERED: FENTANYL CITR 100 MCG/2 ML ONE (01:14)
--- NOTE | 2024-11-08 03:24 | RAD REPORT ---
EXAM: CT Abdomen and Pelvis Without Intravenous Contrast CLINICAL HISTORY: back pain, hematuria TECHNIQUE: Axial computed tomography images of the abdomen and pelvis without intravenous contrast. Sagittal a nd coronal reformatted images were created and reviewed. This CT exam was performed using one or more of the following dose reduction techniques: automated exposure control, adjustment of the mA a nd/or kV according to patient size, and/or use of iterative reconstruction technique. COMPARISON: CT Abdomen Pelvis dated 03/25/2023 FINDINGS: Lung bases: Bilateral subsegmental atelectasis/pleural parenchymal scar. ABDOMEN: Liver: Unremarkable. Gallbladder and bile ducts: Unremarkable. No calcified stones. No ductal dilation. Pancreas: Unremarkable. No ductal dilation. Spleen: Unremarkable. No splenomegaly. Adrenals: Unremarkable. No mass. Kidneys and ureters: Unremarkable. No obstructing stones. No hydronephrosis. Stomach and bowel: Moderate stool. No bowel obstruction. No appreciable mucosal thickening. PELVIS: Appendix: Normal caliber appendix. No findings to suggest acute appendicitis. Bladder: Unremarkable. No stones. Reproductive: There has been a hysterectomy. No adnexal cysts or masses are identified. ABDOMEN and PELVIS: Intraperitoneal space: Unremarkable. No free air. No significant fluid collection. Bones/joints: Mild multilevel spondylosis. No acute fracture. No dislocation. Soft tissues: Unremarkable. Vasculature: Unremarkable. No abdominal aortic aneurysm. Lymph nodes: Unremarkable. No enlarged lymph nodes. IMPRESSION: 1. No renal, ureteral or bladder calculi. No evidence for renal obstruction. 2. Other findings as above. Electronically signed by: Yobany Gamboa MD 11/08/2024 03:01 AM CDT Due to temporary technical issues with the [employer] reporting system, reports are being allan d by the in-house radiologist without review as a courtesy to ensure prompt reporting the interpreting radiologist is fully responsible for the content of the report. Transcribed Date/Time: 11/08/2024 3:23 AM
[2024-11-08] MEDS ORDERED: methocarbamoL 750 MG TAB ONE (04:07)
[2024-11-08] MEDS ORDERED: HYDROCODONE/APAP 5/325 MG TAB ONE (04:07)
--- NOTE | 2024-11-08 04:11 | EDPHYS ---
Physician Documentation [facility] Name: Alie Gee Age: 39 yrs Sex: Female : 1985 Arrival Date: 11/07/2024 Time: 20:52 Bed 19 Private MD: ED Physician Real Flynn HPI: 11/07 21:45 This 39 yrs old Black Female presents to ER via Ambulatory with complaints of Low Back cp Pain. 21:45 The patient presents with pain that is acute. The symptoms are located in the low back, cp right side worse than left. The pain does not radiate. The problem was sustained pain started after lifting heavy object at work today. Associated signs and symptoms: Pertinent negatives: abdominal pain, dysuria, fever, incontinence, numbness, urinary retention, weakness. Severity of symptoms: in the emergency department the symptoms are unchanged, despite home interventions. 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 - Infectious Disease History:: Denies. - Social history:: Smoking status: Patient denies any tobacco usage or history of. ROS: 21:50 Constitutional: Negative for body aches, chills, fever, poor PO intake, cp 21:50 Eyes: Negative for injury, pain, redness, and discharge, cp 21:50 ENT: Negative for drainage from ear(s), ear pain, sore throat, difficulty swallowing, difficulty handling secretions, 21:50 Cardiovascular: Negative for chest pain, edema, palpitations, 21:50 Respiratory: Negative for cough, shortness of breath, wheezing, 21:50 Abdomen/GI: Negative for abdominal pain, vomiting, diarrhea, constipation, bowel incontinence, 21:50 Back: Positive for pain at rest, pain with movement, of the low back, 21:50 : Negative for urinary symptoms, difficulty urinating, bladder incontinence, vaginal bleeding, 21:50 Neuro: Negative for numbness, tingling, weakness, 21:50 All other systems are negative, Exam: 21:55 Constitutional: The patient appears in no acute distress, alert, awake, non-toxic, well cp developed, well nourished, obese, uncomfortable, 21:55 Head/Face: Normocephalic, atraumatic. cp 21:55 Eyes: Periorbital structures: appear normal, Conjunctiva: normal, no exudate, no injection, Sclera: no appreciated abnormality, Lids and lashes: appear normal, bilaterally, 21:55 ENT: External ear(s): are unremarkable, Nose: is normal, Mouth: Lips: moist, Oral mucosa: moist, Posterior pharynx: Airway: no evidence of obstruction, patent, 21:55 Chest/axilla: Inspection: normal, 21:55 Cardiovascular: Rate: normal, Rhythm: regular, 21:55 Respiratory: the patient does not display signs of respiratory distress, Respirations: normal, 21:55 Abdomen/GI: Inspection: abdomen appears normal, Palpation: abdomen is soft and non-tender, in all quadrants, 21:55 Back: pain, that is moderate, of the low back, ROM is painful, with all movement, 21:55 Neuro: Motor: moves all fours, strength is normal, Sensation: is normal, 11/08 20:29 Constitutional: This is a well developed, well nourished patient who is awake, alert, sp4 and in no acute distress. Head/Face: Normocephalic, atraumatic. Eyes: Pupils equal round and reactive to light, extra-ocular motions intact. Lids and lashes normal. Conjunctiva and sclera are not injected. Cornea within normal limits. Periorbital areas with no swelling, redness, or edema. ENT: Nares patent. No nasal discharge, no septal abnormalities noted. Tympanic membranes are normal and external auditory canals are clear. Oropharynx with no redness, swelling, or masses, exudates, or evidence of obstruction, uvula midline. Mucous membranes moist. Neck: Trachea midline, no thyromegaly or masses palpated, and no cervical lymphadenopathy. Supple, full range of motion without nuchal rigidity, or vertebral point tenderness. Chest/axilla: Normal chest wall appearance and motion. Nontender with no deformity. No lesions are appreciated. Cardiovascular: Regular rate and rhythm with a normal S1 and S2. No gallops, murmurs, or rubs. Normal PMI, no JVD. No pulse deficits. Respiratory: Lungs have equal breath sounds bilaterally, clear to auscultation and percussion. No rales, rhonchi or wheezes noted. No increased work of breathing, no retractions or nasal flaring. Abdomen/GI: Soft, with normal bowel sounds. No distension or tympany. No guarding or rebound. No evidence of tenderness throughout. Back: No spinal tenderness. No costovertebral tenderness. Skin: Warm, dry with normal turgor. Normal color with no rashes, no lesions, and no evidence of cellulitis. MS/ Extremity: Pulses equal, no cyanosis. Neurovascular intact. Full, normal range of motion. Neuro: Awake and alert, GCS 15, oriented to person, place, time, and situation. Cranial nerves II-XII grossly intact. Motor strength 5/5 in all extremities. Sensory grossly intact. Psych: Awake, alert, with orientation to person, place and time. Behavior, mood, and affect are within normal limits Vital Signs: 11/07 21:32 BP 142 / 89; Pulse 79; Resp 16; Temp 97.3(TE); Pulse Ox 99% on R/A; Weight 108.86 kg jb4 (R); Height 5 ft. 5 in. (R); Pain 7/10; 11/08 01:17 BP 146 / 90; Pulse 60; Resp 18; Temp 98.5(O); Pulse Ox 100% on R/A; al5 03:07 BP 133 / 88; Pulse 68; Resp 16; Temp 98.1; Pulse Ox 100% ; mm11 04:20 BP 144 / 88; Pulse 65; Resp 16; Pulse Ox 100% ; al5 11/07 21:32 Body Mass Index 39.94 (108.86 kg, 165.1 cm) jb4 11/07 21:32 Pain Scale: Adult jb4 [place] Coma Score: 20:29 Eye Response: spontaneous(4). Motor Response: obeys commands(6). Verbal Response: sp4 oriented(5). Total: 15. MDM: 11/07 21:18 Medical Screening Exam initiated cp 11/08 04:08 ED course: EXAM: CTAbdomen and Pelvis Without Intravenous Contrast CLINICAL HISTORY: sp4 back pain, hematuria TECHNIQUE: Axial computed tomography images of the abdomen and pelvis without intravenous contrast. Sagittal and coronal reformatted images were created and reviewed. This CT exam was performed using one or more of the following dose reduction techniques: automated exposure control, adjustment of the mA and/or kV according to patient size, and/or use of iterative reconstruction technique. COMPARISON: CTAbdomen Pelvis dated 03/25/2023 FINDINGS: Lung bases: Bilateral subsegmental atelectasis/pleural parenchymal scar. ABDOMEN: Liver: Unremarkable. Gallbladder and bile ducts: Unremarkable. No calcified stones. No ductal dilation. Pancreas: Unremarkable. No ductal dilation. Spleen: Unremarkable. No splenomegaly. Adrenals: Unremarkable. No mass. Kidneys and ureters: Unremarkable. No obstructing stones. No hydronephrosis. Stomach and bowel: Moderate stool. No bowel obstruction. No appreciable mucosal thickening. PELVIS: Appendix: Normal caliber appendix. No findings to suggest acute appendicitis. Bladder: Unremarkable. No stones. Reproductive: There has been a hysterectomy. No adnexal cysts or masses are identified. ABDOMEN and PELVIS: Intraperitoneal space: Unremarkable. No free air. No significant fluid collection. Bones/joints: Mild multilevel spondylosis. No acute fracture. No dislocation. Soft tissues: Unremarkable. Vasculature: Unremarkable. No abdominal aortic aneurysm. Lymph nodes: Unremarkable. No enlarged lymph nodes. IMPRESSION: 1. No renal, ureteral or bladder calculi. No evidence for renal obstruction. 2. Other findings as above.. 20:29 Differential diagnosis: arthritis, strain, fracture, sciatica, contusion, Herniated sp4 disc UTI. Data reviewed: vital signs, nurses notes, lab test result(s), urinalysis, radiologic studies, CT scan. Consideration of Admission/Observation Escalation of care including admission/observation considered. ED course: Today unremarkable, unremarkable CT scan, urine contains microscopic hematuria. Advise repeat urinalysis and 2 to 4 weeks. 11/07 21:35 Order name: Urinalysis W/Microscopic; Complete Time: 00:49 cp 11/08 00:49 Interpretation: Normal except: [facility] Turbid; Urine SG > 1.030; UBLD 1+; UPROT TRACE; cp UUROB 2+; URBC 21-50; CAOX Cx Moderate. 11/08 00:51 Order name: CT Stone Protocol; Complete Time: 03:59 cp Administered Medications: 11/07 23:45 Drug: Ketorolac IM 60 mg IM once Route: IM; Site: left ventrogluteal; ha1 04/01 01:22 Follow up: Response: No adverse reaction; Pain is unchanged, physician notified al5 11/07 23:45 Drug: Methocarbamol PO 750 mg PO once Route: PO; ha1 11/08 01:22 Follow up: Response: No adverse reaction; Pain is unchanged, physician notified al5 01:26 Drug: fentaNYL (PF) IM 50 mcg IM once Route: IM; Site: left deltoid; al5 02:10 Follow up: Response: No adverse reaction; Pain is decreased al5 04:10 Drug: HYDROcodone-acetaminophen PO 5 mg-325 mg 2 tabs PO once Route: PO; al5 04:20 Follow up: Response: No adverse reaction al5 04:10 Drug: Methocarbamol PO 1500 mg PO once Route: PO; al5 04:19 Follow up: Response: No adverse reaction al5 Disposition: 04:09 Co-signature as Attending Physician, Real Flynn MD I agree with the assessment sp4 and plan of care. I reviewed the patient's care provided by Advanced Practice Provider \T\ agree w/ the diagnosis \T\ care plan. I personally saw the pt \T\ performed a substantive portion of the visit, incldng all aspects of the (History/Exam/Medical Decision Making). Disposition Summary: 11/08/24 04:10 Discharge Ordered Problem: new sp4 Symptoms: have improved sp4 Condition: Stable sp4 Diagnosis - Hematuria, unspecified sp4 - Acute lower back sprain, acute microscopic hematuria sp4 Followup: sp4 - With: Roxanna Cox MD - When: 7 - 10 days - Reason: Recheck today's complaints Discharge Instructions: - Discharge Summary Sheet sp4 - Hematuria, Adult sp4 Forms: - Work release form sp4 - Patient Portal Instructions sp4 Prescriptions: - Ibuprofen 800 mg Oral Tablet - take 1 tablet ORAL route every 8 hours As needed take with food; 30 tablet; sp4 Refills: 0, Product Selection Permitted - Tramadol 50 mg Oral tablet - take 1 tablet ORAL route every 8 hours as needed; 20 tablet; Refills: 0, sp4 Product Selection Permitted - methocarbamol 750 mg Oral tablet - take 2 tablets ORAL route every 8 hours for 10 days PRN back pain; 60 tablet; sp4 Refills: 0, Product Selection Permitted Signatures: Dispatcher [employer] Eligio Rojas PA PA cp Bryson, James RN RN jb4 Rsahmi Rosenberg RN RN ha1 Real Flynn MD MD sp4 Malena Faustin RN RN al5
--- NOTE | 2024-11-08 04:11 | ER ---
Nurse's Notes [facility] Name: Alie Gee Age: 39 yrs Sex: Female : 1985 Arrival Date: 11/07/2024 Time: 20:52 Bed 19 Private MD: Diagnosis: Hematuria, unspecified;Acute lower back sprain, acute microscopic hematuria Presentation: 11/07 21:32 Chief complaint: Patient states: I am having lower back pain and right side pain. It jb4 feels like spasms and a sharp pain. It all started 2pm today after I picked up something heavy at work. Coronavirus screen: At this time, the client does not indicate any symptoms associated with coronavirus-19. Ebola Screen: No symptoms or risks identified at this time. Initial Sepsis Screen: Does the patient meet any 2 criteria? No. Patient's initial sepsis screen is negative. Does the patient have a suspected source of infection? No. Patient's initial sepsis screen is negative. Risk Assessment: Do you want to hurt yourself or someone else? Patient reports no desire to harm self or others. Onset of symptoms was November 07, 2024. Transition of care: patient was not received from another setting of care. 21:32 Method Of Arrival: Ambulatory jb4 21:32 Acuity: CAROLYN 4 jb4 Triage Assessment: 21:33 General: Appears in no apparent distress. uncomfortable, Behavior is calm, cooperative, jb4 appropriate for age. Pain: Complains of pain in right low back Pain does not radiate. Pain currently is 7 out of 10 on a pain scale. Quality of pain is described as sharp, spasms. Neuro: Level of Consciousness is awake, alert, obeys commands, Oriented to person, place, time, situation. Cardiovascular: Patient's skin is warm and dry. Respiratory: Airway is patent Respiratory effort is even, unlabored, Respiratory pattern is regular. Derm: Skin is intact, Skin is dry, Skin is normal, Skin temperature is warm. Musculoskeletal: Circulation, motion, and sensation intact. Range of motion: intact in all extremities. 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 - Infectious Disease History:: Denies. - Social history:: Smoking status: Patient denies any tobacco usage or history of. Screenin:35 [facility] ED Fall Risk Assessment (Adult) History of falling in the last 3 months, jb4 including since admission No falls in past 3 months (0 pts) Confusion or Disorientation No (0 pts) Intoxicated or Sedated No (0 pts) Impaired Gait No (0 pts) Mobility Assist Device Used No (0 pt) Altered Elimination No (0 pt) Score/Fall Risk Level 0 - 2 = Low Risk Oriented to surroundings, Maintained a safe environment. Abuse screen: Denies threats or abuse. Nutritional screening: No deficits noted. Tuberculosis screening: No symptoms or risk factors identified. Assessment: 11/08 00:00 Reassessment: assumed care of patient at this time. al5 00:00 General: Appears in no apparent distress. uncomfortable, Behavior is calm, cooperative. al5 Pain: Complains of pain in back and right low back Pain currently is 8 out of 10 on a pain scale. Neuro: Level of Consciousness is awake, alert, obeys commands, Oriented to person, place, time, situation. Cardiovascular: Capillary refill < 3 seconds Patient's skin is warm and dry. Respiratory: Airway is patent Respiratory effort is even, unlabored, Respiratory pattern is regular, symmetrical. GI: No signs and/or symptoms were reported involving the gastrointestinal system. : No signs and/or symptoms were reported regarding the genitourinary system. EENT: No signs and/or symptoms were reported regarding the EENT system. Derm: Skin is intact, is healthy with good turgor, Skin is pink, warm \T\ dry. normal. Musculoskeletal: Reports pain in back and right low back Pain is 8 out of 10 on a pain scale. 01:23 Reassessment: Patient appears in no apparent distress at this time. No changes from al5 previously documented assessment. Patient and/or family updated on plan of care and expected duration. Pain level reassessed. Patient is alert, oriented x 3, equal unlabored respirations, skin warm/dry/pink. 02:06 Reassessment: Patient appears in no apparent distress at this time. Patient and/or al5 family updated on plan of care and expected duration. Pain level reassessed. Patient is alert, oriented x 3, equal unlabored respirations, skin warm/dry/pink. pain decreased with pain medicine Patient states symptoms have improved. 03:11 Reassessment: Patient appears in no apparent distress at this time. No changes from al5 previously documented assessment. Patient and/or family updated on plan of care and expected duration. Pain level reassessed. Patient is alert, oriented x 3, equal unlabored respirations, skin warm/dry/pink. 04:10 Reassessment: Patient appears in no apparent distress at this time. Patient and/or al5 family updated on plan of care and expected duration. Pain level reassessed. Patient is alert, oriented x 3, equal unlabored respirations, skin warm/dry/pink. pain starting to increase, MD placed pain medications orders and medications given at this time. Vital Signs: 11/07 21:32 BP 142 / 89; Pulse 79; Resp 16; Temp 97.3(TE); Pulse Ox 99% on R/A; Weight 108.86 kg jb4 (R); Height 5 ft. 5 in. (R); Pain 7/10; 04/ 01:17 BP 146 / 90; Pulse 60; Resp 18; Temp 98.5(O); Pulse Ox 100% on R/A; al5 03:07 BP 133 / 88; Pulse 68; Resp 16; Temp 98.1; Pulse Ox 100% ; mm11 04:20 BP 144 / 88; Pulse 65; Resp 16; Pulse Ox 100% ; al5 11/07 21:32 Body Mass Index 39.94 (108.86 kg, 165.1 cm) jb4 11/07 21:32 Pain Scale: Adult jb4 Demond Coma Score: 20:29 Eye Response: spontaneous(4). Motor Response: obeys commands(6). Verbal Response: sp4 oriented(5). Total: 15. ED Course: 11/07 20:55 Patient arrived in ED. im 20:57 Eligio Jackson PA is PHCP. cp 20:57 Real Flynn MD is Attending Physician. cp 21:33 Triage completed. jb4 21:33 Arm band placed on right wrist. jb4 21:35 Patient has correct armband on for positive identification. Provided Education on: plan jb4 of care. 23:55 Malena Faustin, RN is Primary Nurse. al5 11/08 01:17 No provider procedures requiring assistance completed. al5 01:22 CT Stone Protocol In Process Unspecified. EDMS 04:09 Roxanna Cox MD is Referral Physician. sp4 04:20 Patient did not have IV access during this emergency room visit. al5 Administered Medications: 11/07 23:45 Drug: Ketorolac IM 60 mg IM once Route: IM; Site: left ventrogluteal; ha1 11/08 01:22 Follow up: Response: No adverse reaction; Pain is unchanged, physician notified al5 11/07 23:45 Drug: Methocarbamol PO 750 mg PO once Route: PO; ha1 11/08 01:22 Follow up: Response: No adverse reaction; Pain is unchanged, physician notified al5 01:26 Drug: fentaNYL (PF) IM 50 mcg IM once Route: IM; Site: left deltoid; al5 02:10 Follow up: Response: No adverse reaction; Pain is decreased al5 04:10 Drug: HYDROcodone-acetaminophen PO 5 mg-325 mg 2 tabs PO once Route: PO; al5 04:20 Follow up: Response: No adverse reaction al5 04:10 Drug: Methocarbamol PO 1500 mg PO once Route: PO; al5 04:19 Follow up: Response: No adverse reaction al5 Medication: 11/07 21:35 VIS not applicable for this client. jb4 Outcome: 11/08 04:10 Discharge ordered by . sp4 04:20 Discharged to home ambulatory, al5 04:20 Condition: good 04:20 Discharge instructions given to patient, Instructed on discharge instructions, follow up and referral plans. medication usage, Demonstrated understanding of instructions, follow-up care, medications, Prescriptions given X 3, 04:20 Patient left the ED. al5 Signatures: Dispatcher GenaroHo EDMT Eligio Jackson PA PA cp Bryson, James, RN RN jb4 Rashmi Rosenberg RN RN ha1 Real Flynn MD MD sp4 Charis Vasquez im Malena Faustin RN RN al5 jose enrique koch [id number] Corrections: (The following items were deleted from the chart) 04:11 04:10 Reassessment: Patient appears in no apparent distress at this time. No changes al5 from previously documented assessment. Patient and/or family updated on plan of care and expected duration. Pain level reassessed. Patient is alert, oriented x 3, equal unlabored respirations, skin warm/dry/pink. al5
[2024-11-08 04:35] VITALS: O2SAT 100
[2024-11-08 04:40] VITALS: TEMP 98.1
[2024-11-08 04:41] VITALS: BP 144/88
== END 2024-11-08 04:20 | disposition home or self-care (01) ==
LOC: ER 20:52
DX: S39.012A Strain of muscle, fascia and tendon of lower back, initial encounter (principal); R31.29 Other microscopic hematuria
CPT/HCPCS: 81001; 76377; 74176; 96372; 99284; J3010

== ENCOUNTER 2024-12-07 14:24 | Emergency (ER) | payer OTHER ==
--- OUTSIDE RECORDS SUMMARY | 2024-12-07 14:37 | XMS REPORT | Continuity of Care Document ---
Author Name Unknown Address [address] [facility] [place] [address] Organization [facility] [place] Address [address] [facility] [place] [address] Care Team Providers Care Padded Box Sewer Name Role Phone Cheikh Boyle MD Primary Care Physician + [phone] JARROD MERCADO Attending Clinician Unavailable JARROD MERCADO Attending Clinician Unavailable Doctor Unassigned, [place] Attending Clinician U RU Jordan Attending Clinician Unavailable Sergo David Attending Clinician [phone] Unknown, Attending Attending Clinician Unavailab SERGO Feliciano Attending Clinician Unavailable JAN ESTRADA Attending Clinician Unavailable Cheikh Boyle MD Attending Clinician [phone] Frannie Smith PA-C Attending Clinician [phone] TAIWO ALEGRIA Attending Clinician Unava iljerad Doctor Unassigned, [place] Attending Clinician U Jan Mina MD Attending Clinician [phone] Raulito Promise Merrill Attending Clinician Unavailable CHEIKH BOYLE Attending Clinician Unavailable Sergo David Attending Clinician [phone] Unknown, Attending Attending Clinician UnavailMalena Carter MD Attending Clinician [phone] MALENA GARCIA Attending Clinician Unavailable ObTroy Carbajal MD Attending Clinician [phone] TROY KHAN Attending Clinician Unavailab tommie Almeida, [facility] Main Attending Clinician UnavailNICANOR Cancino Attending Clinician Unavailable Rafael RICHARD, Nicanor Attending Clinician [phone] Akiko ELECTRONICS INSTRUCTOR, Taiwo Attending Clinician [phone] Ebrahim Sera SHIRLEY Attending Clinician [phone] FRANNIE SMITH Attending Clinician Unavailable Lab, [facility] Attending Clinician Unavailable ARIANNA WHITMORE Attending Clinician Unavailable Arianna Whitmore MD Attending Clinician [phone] Bennett RT, Kimberly C Attending Clinician Unavailab ANDRE Kennedy Attending Clinician Unavailable Therapist, [facility] Attending Clinician Shirley vailable EBSERA AMOS Attending Clinician Unavailable 2, [facility] Attending Clinician Unavailable Red Cramer MD Attending Clinician + [phone] Nurse, [facility] Attending Clinician Un available UNKNOWN, ATTENDING Attending Clinician Unavailab Sabiha Hernandez RN Attending Clinician Unavailable Only, Aurelio Flores Test Attending Clinician UnavailBlanka Vera LVN Attending Clinician Unavail able Kimmy Prieto RN Attending Clinician Unavailable CAMELIA CORTEZ Attending Clinician Unavailable NII BONILLA Attending Clinician Unav ailable Nii Bonilla MD Attending Clinician + CIARRA FRANK Attending Clinician Unavailable Steffany Zhuya S Attending Clinician [phone] ADELINE WILLIAM Attending Clinician Unavailable LIZANDRO KEATING Attending Clinician Unavailable Lizandro Rodriguez Attending Clinician [phone] BRITTANY BELCHER Attending Clinician Unavailable NATALIE ALMENDAREZ Attending Clinician Unavailable Natalie Mills Attending Clinician [phone] Nurse, [facility] Attending Clinician Un available Francis Valentin Attending Clinician [phone] FRANCIS BOWER Attending Clinician Unavailzoraida Kaur RN, Xochitl Stanford Attending Clinician Unavailab SHANNAN Morgan Attending Clinician Unavailab tommie Lloyd ELECTRONICS INSTRUCTOR, Shannan Hunter Attending Clinician + [phone] Provider, [facility] Attending Clinician Unavailable Vaccine, [facility] Attending Clinician Unav ailable Dominic Peralta DO Attending Clinician [phone] DOMINIC PERALTA Attending Clinician Unavail able Brittany Belcher MD Attending Clinician [phone] Micheal Mayer DO Attending Clinician [phone] GAMALIEL GREER III Attending Clinician Unavailabl Susana Sandoval Attending Clinician Unavailable Jeremiah PACSusana Attending Clinician +[phone] Provider, Urgent Care Day Attending Clinician Un available JOJO MINOR Attending Clinician Unavailzoraida Minor ELECTRONICS INSTRUCTOR, Jojo Attending Clinician +[phone] Tomasa Chaidez Attending Clinician +[phone] Kaley Coello RN Attending Clinician Unavaila TOMASA [...] Clinician Unavaila ALBA Marrero Attending Clinician Unavailable Tech, [facility] Attending Clinician Unavail able 2, [facility] Room Attending Clinician Unava ilable Melisa Perez PT Attending Clinician Un available Kyle Ortiz MD Attending Clinician [phone] MICHEAL MAYER Attending Clinician Unavailable Gamaliel Johnson MD Attending Clinician +- [phone] Filomena Torres DO Attending Clinician +[phone] JARROD MERCADO Admitting Clinician Unavailable Jarrod Mercado MD Admitting Clinician +[phone] ARIANNA WHITMORE Admitting Clinician Unavailable CHEIKH BOYLE Admitting Clinician Unavailable NII BONILLA Admitting Clinician Unav ailable FRANKSTEFFANYYA S Admitting Clinician Unavailable NATALIE ALMENDAREZ Admitting Clinician Unavailable BRITTANY BELCHER Admitting Clinician Unavailable Brittany Belcher MD Admitting Clinician Susana DANIELS Admitting Clinician Unavailable MICHEAL MAYER Admitting Clinician Unavailable Payers Payer Name Policy Type Policy Number Effective Date Expirati on Date Source [facility] [id number] 2017 00:00:00 [facility] [place] [facility] [id number] 2024 00:00:00 SERGIO JAVIER FROM [facility] [id number] 2022 00:00:00 Problems Condition Name Condition Details Condition Category Status Onset Date Resolution Date Last Treatment Date Treating Clinician Comments Source Status post laparoscop ic hysterecto my Status post laparoscop ic hysterecto my Disease Active 09-02 00:00: 00 [facility] acute hospital Status post bilateral salpingect fer Status post bilateral salpingect fer Disease Active 09-02 00:00: 00 [facility] acute hospital Status post cystoscopy Status post cystoscopy Disease Active 09-02 00:00: 00 [facility] acute hospital Preop cardiovasc ular exam Preop cardiovasc ular exam Disease Active 08-26 00:00: 00 [facility] acute hospital PFO (patent foramen ovale) PFO (patent foramen ovale) Disease Active 08-26 00:00: 00 [facility] acute hospital Cigarette smoker Cigarette smoker Disease Active 08-26 00:00: 00 [facility] acute hospital Moderate episode of recurrent major depressive disorder Moderate episode of recurrent major depressive disorder Disease Active - 00:00: 00 [facility] acute hospital Pre-op examinatio n Pre-op examinatio n Disease Active 08-19 00:00: 00 [facility] acute hospital Moderate episode of recurrent major depressive disorder Moderate episode of recurrent major depressive disorder Disease Active 08-19 00:00: 00 [facility] acute hospital Abnormal uterine bleeding Abnormal uterine bleeding Disease Active 2022-08 2-14 00:00: 00 [facility] acute hospital Tachycardi a Tachycardi a Disease Active 2022-08 0-04 00:00: 00 [facility] acute hospital Mild intermitte nt asthma without complicati on Mild intermitte nt asthma without complicati on Disease Active 2022-08 0-04 00:00: 00 [facility] acute hospital Bacterial vaginosis Bacterial vaginosis Disease Active 8-23 00:00: 00 [facility] acute hospital COVID-19 virus infection COVID-19 virus infection Disease Active 8-23 00:00: 00 [facility] acute hospital Migraine equivalent syndrome Migraine equivalent syndrome Disease Active 8-23 00:00: 00 [facility] acute hospital Hemorrhagi c ovarian cyst Hemorrhagi c ovarian cyst Disease Active 3-30 00:00: 00 [facility] acute hospital Obesity (BMI 30-39.9) Obesity (BMI 30-39.9) Disease Active 4-27 00:00: 00 [facility] acute hospital Fibromyalg ia syndrome Fibromyalg ia syndrome Disease Active 3-10 00:00: 00 [facility] acute hospital 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 simplex virus 2) infection Disease Active 2019-08 1-13 00:00: 00 [facility] acute hospital Muscle spasms of both lower extremitie s Muscle spasms of both lower extremitie s Disease Active 2019-08 1-13 00:00: 00 [facility] acute hospital Muscle spasms of both lower extremitie s Muscle spasms of both lower extremitie s Disease Active 2019-08 1-13 00:00: 00 [facility] acute hospital Need for prophylact ic vaccinatio n against hepatitis A and hepatitis B Need for prophylact ic vaccinatio n against hepatitis A and hepatitis B Disease Active 8-06 00:00: 00 General acute hospital Virilizati on Virilizati on Disease Active 8-04 00:00: 00 [facility] acute hospital Shortness of breath Shortness of breath Disease Active 5- 00:00: 00 [facility] SOB (shortness of breath) on exertion SOB (shortness of breath) on exertion Disease Active 20200 5-01 00:00: 00 [facility] acute hospital Acneiform rash Acneiform rash Disease Active 20200 4-21 00:00: 00 [facility] acute hospital Current smoker Current smoker Disease Active 3-27 00:00: 00 [facility] acute hospital Nicotine dependence with current use Nicotine dependence with current use Disease Active 327 00:00: 00 [facility] acute hospital Medication care plan discussed with patient Medication care plan discussed with patient Disease Active 0 3-24 00:00: 00 [facility] acute hospital Former smoker Former smoker Disease Active 3-20 00:00: 00 [facility] acute hospital Menetrier' s disease Menetrier' s disease Disease Active 3-20 00:00: 00 [facility] acute hospital Hep C w/o coma, chronic Hep C w/o coma, chronic Disease Active 2- 00:00: 00 [facility] acute hospital Right lower quadrant abdominal pain Right lower quadrant abdominal pain Disease Active 0 1-22 00:00: 00 [facility] acute hospital Bronchitis Bronchitis Disease Active 1-22 00:00: 00 [facility] acute hospital Substernal chest pain Substernal chest pain Disease Active 20200 1-22 00:00: 00 [facility] acute hospital Cysts of both ovaries Cysts of both ovaries Disease Active 1-08 00:00: 00 [facility] acute hospital Primary insomnia Primary insomnia Disease Active 1-03 00:00: 00 [facility] acute hospital Bipolar 1 disorder Bipolar 1 disorder Disease Active 2018-08 2-16 00:00: 00 [facility] acute hospital Nausea and vomiting in adult patient Nausea and vomiting in adult patient Disease Active 2018-0816 00:00: 00 [facility] acute hospital Anxiety Anxiety Disease Active 2018-0816 00:00: 00 [facility] acute hospital Current moderate episode of major depressive disorder, unspecifie d whether recurrent Current moderate episode of major depressive disorder, unspecifie d whether recurrent Disease Active 2018-08 00:00: 00 [facility] acute hospital Cigarette nicotine dependence with other nicotine-i nduced disorder Cigarette nicotine dependence with other nicotine-i nduced disorder Disease Active 2018-08 00:00: 00 [facility] acute hospital Schizophre era with prominent negative symptoms Schizophre era with prominent negative symptoms Disease Active 2018-08 00:00: 00 [facility] acute hospital IVDU (intraveno us drug user) IVDU (intraveno us drug user) Disease Active 2018-08 00:00: 00 [facility] acute hospital Morbid obesity with body mass index (BMI) of 40.0 to 49.9 Morbid obesity with body mass index (BMI) of 40.0 to 49.9 Disease Active 2018-08 017 00:00: 00 [facility] acute hospital Furuncle of right thigh Furuncle of right thigh Disease Resolve d 2019-0 7-20 00:00: 00 2020-03-15 00:00:00 2020-03-15 14:12:28 General acute hospital Carbuncle of thigh Carbuncle of thigh Disease Resolve d 0 7-20 00:00: 00 2020-03-15 00:00:00 2020-03-15 14:12:22 General acute hospital Itching Itching Disease Resolve d 2019-0 4-21 00:00: 00 2020-03-15 00:00:00 2020-03-15 14:12:32 General acute hospital Vertigo Vertigo Disease Resolve d 2018-08 0-17 00:00: 00 2020-02-27 00:00:00 2020-02-27 13:45:00 General acute hospital Chest pain Chest pain Disease Resolve d 2017-0 5-27 00:00: 00 2020-02-27 00:00:00 2020-02-27 13:44:59 General acute hospital Chest pain, atypical Chest pain, atypical Disease Resolve d 2017-0 3-03 00:00: 00 2020-02-27 00:00:00 2020-02-27 13:44:56 General acute hospital Acute URI Acute URI Disease Resolve d 2019-0 1-22 00:00: 00 2019-09-10 00:00:00 2019-09-10 21:57:18 General acute hospital Constipati on, unspecifie d constipati on type Constipati on, unspecifie d constipati on type Disease Resolve d 1-08 00:00: 00 2019-09-10 00:00:00 2019-09-10 21:57:46 [facility] acute hospital Yeast infection Yeast infection Disease Resolve d 2018-08 2-16 00:00: 00 2019-09-10 00:00:00 2019-09-10 21:59:37 General acute hospital Cutaneous abscess of groin Cutaneous abscess of groin Disease Resolve d 2018-08 00:00: 00 2019-09-10 00:00:00 2019-09-10 21:59:20 General acute hospital Hidradenit is Hidradenit is Disease Resolve d 2018-08 216 00:00: 00 2019-09-10 00:00:00 2019-09-10 21:59:02 General acute hospital Allergies, Adverse Reactions, Alerts Allergy Name Allergy Type Status Severity Reaction(s) Onset Date Inactive Date Treating Clinician Comments Source NO KNOWN ALLERGIE S Drug Class Active General acute hospital Social History Social Habit Start Date Stop Date Quantity Comments Source History SDOH Alcohol Frequency [facility] History SDOH Alcohol Std Drinks [facility] History SDOH Alcohol Binge [facility] History of tobacco use Cigarette Smoker [facility] Gender identity [facility] History of Occupation [facility] Alcohol intake 2023-09-15 00:00:00 2023-09-15 00:00:00 Current drinker of alcohol (finding) [facility] History of Social function 2023-09-02 00:00:00 2023-09-02 00:00:00 [facility] Tobacco Comment 2023-08-31 00:00:00 2023-08-31 00:00:00 Stopped vaping ~1 yr ago (only smokes two cigarettes per day) [facility] Exposure to SARS-CoV-2 (event) 2022-08-06 00:00:00 2022-08-16 11:23:00 Not sure [facility] Alcohol Comment 2021-10-03 00:00:00 2021-10-03 00:00:00 every weekend [facility] Alcoholic beverage intake 2020-03-15 00:00:00 2020-03-15 00:00:00 Current non-drinker of alcohol (finding) [facility] Cigarettes smoked current (pack per day) - Reported 2017-08-27 00:00:00 2017-08-27 00:00:00 [facility] Cigarette pack-years 2017-08-27 00:00:00 2017-08-27 00:00:00 [facility] Tobacco use and exposure 2017-08-27 00:00:00 2017-08-27 00:00:00 Smokeless tobacco non-user [facility] Sex assigned at 1985 00:00:00 1985 00:00:00 [facility] Smoking Status Start Date Stop Date Source Smokes tobacco daily 2017-08-27 00:00:00 [facility] Medications Ordered Medication Name Filled Medication Name Start Date Stop Date Current Medication? Ordering Clinician Indication Dosage Frequency Signature (SIG) Comments Components Source ondansetron 4 mg disintegrat ing tablet 03-31 00:00: 00 04-06 04:59 :00 No [id number] 4mg Take 1 tablet by mouth every 8 (eight) hours as needed for Nausea and Vomiting (N/V) for up to 5 days. [facility] acute hospital benzonatate 200 mg capsule 12-03 00:00: 00 12-14 04:59 :00 No [id number] 200mg Take 1 capsule by mouth 3 (three) times daily as needed for Cough for up to 10 days. General acute hospital glecaprevir -pibrentasv ir (MAVYRET) 100-40 mg 09-15 12:19: 10 Yes 3{tbl} Take 3 tablets by mouth in the morning. [facility] acute hospital benzonatate 100 mg capsule 09-15 00:00: 00 Yes [id number] 200mg Take 2 capsules by mouth every 8 (eight) hours as needed for Cough. [facility] acute hospital acetaminoph en-codeine 300-30 mg tablet 2-06 00:00: 00 09-23 05:59 :00 No [id number] 1{tbl} Take 1 tablet by mouth every 4 (four) hours as needed for Pain (scale 7-10) for up to 7 days. Indication s: acute pain [facility] acute hospital HYDROcodone -acetaminop hen 5-325 mg tablet 09-08 00:00: 00 09-11 05:59 :00 No [id number] 1{tbl} Take 1 tablet by mouth every 6 (six) hours as needed for Pain (scale 7-10) for up to 2 days. Indication s: acute pain [facility] acute hospital glecaprevir -pibrentasv ir (MAVYRET) 100-40 mg 09-03 10:43: 47 Yes 3{tbl} Take 3 tablets by mouth in the morning. [facility] acute hospital simethicone (GAS RELIEF (SIMETHICON E)) chewable tablet 160 mg 09-03 03:00: 00 Yes 160mg 160 mg, Oral, PC+HS, First dose on Thu09/02/23 at 2100, Until Discontinu ed, Routine [facility] acute hospital docusate (COLACE) capsule 100 mg 09-03 02:00: 00 Yes 100mg 100 mg, Oral, Q12H, First dose on Thu09/02/23 at 2000, Until Discontinu ed, Routine [facility] acute hospital metroNIDAZO LE (FLAGYL) tablet 500 mg 09-03 02:00: 00 09-10 01:59 :00 No 500mg 500 mg, Oral, Q12H, 14 doses, First dose on Thu09/02/23 at 2000, Last dose on Thu09/09/23 at 0800, Routine
Reason for Anti-Infec tive: Surgical Prophylaxi s
Surgi norma Prophylaxi s: SLEEVE TAILOR
Duration of therapy: within 24 hours of surgery [facility] acute hospital lactated ringers IV infusion 1,000 mL 09-03 01:00: 00 Yes 1000mL at 75 mL/hr, 1,000 mL, IV Infusion, CONTINUOUS , Starting on Thu09/02/23 at 1900, Until Discontinu ed, Routine, PACU [facility] ibuprofen (IBU) tablet 600 mg 09-03 00:52: 14 Yes 600mg 600 mg, Oral, Q6HPRN, Starting on Thu09/02/23 at 1852, Until Discontinu ed, Routine, Pain (scale 4-6) [facility] hydrOXYzine (ATARAX) tablet 25 mg 09-03 00:50: 18 Yes 25mg 25 mg, Oral, Q8HPRN, Starting on Thu09/02/23 at 1850, Until Discontinu ed, Routine, Itching [facility] ondansetron (ZOFRAN (PF)) injection 4 mg 09-03 00:50: 15 Yes 4mg 4 mg, Slow IV Push, Q4HPRN, Starting on Thu09/02/23 at 1850, Until Discontinu ed, Routine, Nausea and Vomiting (N/V) [facility] HYDROcodone -acetaminop hen (NORCO 5) 5-325 mg tablet 2 tablet 09-03 00:50: 12 Yes 2{tbl} 2 tablet, Oral, Q4HPRN, Starting on Thu09/02/23 at 1850, Until Discontinu ed, Routine, Pain (scale 7-10) [facility] acetaminoph en (TYLENOL) tablet 650 mg 09-03 00:50: 06 Yes 650mg 650 mg, Oral, Q6HPRN, Starting on Thu09/02/23 at 1850, Until Discontinu ed, Routine, Pain (scale 1-3) [facility] HYDROcodone -acetaminop hen (NORCO 5) 5-325 mg tablet 1 tablet 09-03 00:30: 00 09-03 00:53 :00 No 1{tbl} 1 tablet, Oral, ONCE, 1 dose, On Thu09/02/23 at 1830, Routine, PACU [facility] FENTanyl PF (SUBLIMAZE (PF)) injection 25 mcg 09-03 00:27: 30 09-03 00:50 :00 No 25ug 25 mcg, Slow IV Push, Q5MIN PRN, 4 doses, Starting on Thu09/02/23 at 1827, Until Discontinu ed, Routine, Pain (scale 4-6), PACU [facility] acute hospital sodium chloride 0.9 % irrigation solution 09-02 22:55: 00 09-03 00:41 :54 No PRN, Starting on Thu09/02/23 at 1655, Until Thu09/02/23 at 1841, Intra-op [facility] acute hospital bupivacaine (preserv free) 0.5% (SENSORCAIN E MPF) injection 09-02 22:55: 00 09-03 00:41 :54 No PRN, Starting on Thu09/02/23 at 1655, Until Thu09/02/23 at 1841, Routine, Intra-op [facility] acute hospital phenazopyri dine (PYRIDIUM) tablet 200 mg 09-02 19:45: 00 09-02 19:58 :00 No 200mg 200 mg, Oral, ONCE, 1 dose, On Thu09/02/23 at 1345, Routine [facility] acute hospital lactated ringers IV infusion 1,000 mL 09-02 19:45: 00 09-02 19:58 :00 No 1000mL at 42 mL/hr, 1,000 mL, IV Infusion, ONCE, 1 dose, On Thu09/02/23 at 1345, Routine, DSU Pre-op [facility] acute hospital ibuprofen 600 mg tablet 09-02 00:00: 00 Yes [id number] 600mg Take 1 tablet by mouth every 6 (six) hours as needed for Pain (scale 1-3) or Pain (scale 4-6). [facility] acute hospital simethicone 80 mg chewable tablet 09-02 00:00: 00 Yes [id number] 80mg Take 1 tablet by mouth after meals and at bedtime. [facility] acute hospital metroNIDAZO LE (FLAGYL) 500 mg tablet 09-02 00:00: 00 Yes [id number] 500mg Take 1 tablet by mouth every 12 (twelve) hours. [facility] acute hospital HYDROcodone -acetaminop hen 5-325 mg tablet 09-02 00:00: 00 09-05 05:59 :00 No [id number] 1{tbl} Take 1 tablet by mouth every 6 (six) hours as needed for Pain (scale 7-10) for up to 2 days. Indication s: acute pain General acute hospital glecaprevir -pibrentasv ir (MAVYRET) 100-40 mg 08-31 09:40: 53 Yes 3{tbl} Take 3 tablets by mouth in the morning. [facility] acute hospital topiramate 50 mg tablet 08-19 00:00: 00 Yes [id number] 50mg Take 1 tablet by mouth in the morning and 1 tablet in the evening. [facility] acute hospital DULoxetine 20 mg capsule 08-19 00:00: 00 Yes [id number] 20mg Take 1 capsule by mouth in the morning and 1 capsule in the evening. [facility] acute hospital doxepin 100 mg capsule 08-19 00:00: 00 Yes [id number] 100mg Take 1 capsule by mouth at bedtime. [facility] acute hospital buPROPion SR (WELLBUTRIN SR) 150 mg SR tablet 08-19 00:00: 00 Yes [id number] 150mg Take 1 tablet by mouth in the morning and 1 tablet in the evening. [facility] acute hospital ARIPiprazol e (ABILIFY) 5 mg tablet 08-19 00:00: 00 Yes [id number] 5mg Take 1 tablet by mouth in the morning. [facility] acute hospital glecaprevir -pibrentasv ir 100-40 mg 2022-08-15 00:00: 00 Yes [id number] 3{tbl} Take 3 tablets by mouth in the morning. [facility] acute hospital miSOPROStoL 200 mcg tablet 2022-08 2-14 00:00: 00 07-30 00:00 :00 No [id number] 100 200ug Take 1 tablet by mouth SEE-INSTRU CTIONS. Take one tab the night before and one tab the morning of procedure [facility] acute hospital sofosbuvir- velpatasvir 400-100 mg 2022-08 00:00: 00 07-24 00:00 :00 No [id number] 1{tbl} Take 1 tablet by mouth in the morning. [facility] acute hospital amoxicillin 875 mg tablet 2022-08 00:00: 00 07-20 05:59 :00 No [id number] 05 875mg Take 1 tablet by mouth in the morning and 1 tablet in the evening. Do all this for 10 days. [facility] acute hospital iopamidol (ISOVUE 370-500 mL) injection 100 mL 2022-08 08:30: 00 06-29 08:30 :00 No [id number] 100mL 100 mL, Intravenou s, ONCE, 1 dose, On 06/29/23 at 0230, Routine [facility] acute hospital ondansetron (ZOFRAN (PF)) injection 4 mg 2022-08 05:45: 00 06-29 05:55 :00 No 4mg 4 mg, Slow IV Push, ONCE, 1 dose, On 06/28/23 at 2345, UZMA General acute hospital morpHINE (4 mg/mL) injection 4 mg 2022-08 05:45: 00 06-29 05:56 :00 No 4mg 4 mg, Slow IV Push, ONCE, 1 dose, On 06/28/23 at 2345, STAT [facility] acute hospital lactulose 10 gram/15 mL oral solution 2022-08 00:00: 00 Yes [id number] 30mL Take 30 mL by mouth 3 (three) times daily as needed for Constipati on or For bowel movement. [facility] acute hospital dicyclomine 20 mg tablet 2022-08 00:00: 00 08-19 00:00 :00 No [id number] 20mg Take 1 tablet by mouth every 6 (six) hours as needed for Abdominal pain. [facility] acute hospital ondansetron (ZOFRAN) 4 mg tablet 2022-08 00:00: 08-19 00:00 :00 No [id number] 4mg Take 1 tablet by mouth every 8 (eight) hours as needed for Nausea and Vomiting (N/V). [facility] acute hospital ipratropium 0.02 % nebulizer solution 2022-08 00:00: 00 Yes [id number] .5mg Inhale 2.5 mL every 8 (eight) hours as needed for Wheezing or Shortness of Breath. [facility] acute hospital ARIPiprazol e (ABILIFY) 5 mg tablet 2022-08 0 00:00: 00 08-19 00:00 :00 No [id number] 5mg Take 1 tablet by mouth in the morning. [facility] acute hospital doxepin 100 mg capsule 2022-08 00:00: 00 08-19 00:00 :00 No [id number] 100mg Take 1 capsule by mouth at bedtime. [facility] acute hospital doxepin 100 mg capsule 2022-08 0 00:00: 00 05-15 00:00 :00 No [id number] 100mg Take 1 capsule by mouth at bedtime. [facility] acute hospital ARIPiprazol e (ABILIFY) 5 mg tablet 2022-08 0 00:00: 00 05-15 00:00 :00 No [id number] 5mg Take 1 tablet by mouth in the morning. [facility] acute hospital medroxyPROG ESTERone (DEPO-PROVE RA) syringe 150 mg 04-29 21:30: 00 04-29 20:38 :00 No [id number] [facility] % Crea 04-28 00:00: 00 Yes [id number] 1g Apply 1 g to area(s) at bedtime. [facility] acute hospital valACYclovi r 1 gram tablet 04-28 00:00: 00 Yes [id number] 1g Take 1 tablet by mouth in the morning. [facility] acute hospital sofosbuvir- velpatasvir (EPCLUSA) 400-100 mg 04-21 00:00: 00 07-10 00:00 :00 No [id number] 1{tbl} Take 1 tablet by mouth in the morning. General acute hospital albuterol 2.5 mg /3 mL (0.083 %) nebulizer solution 04-01 00:00: 00 Yes [id number] 2.5mg Inhale 3 mL every 4 (four) hours as needed for Wheezing or Shortness of Breath. [facility] acute [facility] albuterol 90 mcg/actuati on inhaler 04-01 00:00: 00 Yes [id number] 2{puff} Inhale 2 Puffs every 4 (four) hours as needed for Wheezing or Shortness of Breath. [facility] acute hospital buPROPion SR (WELLBUTRIN SR) 150 mg SR tablet 04-01 00:00: 00 08-19 00:00 :00 No [id number] 150mg Take 1 tablet by mouth in the morning and 1 tablet in the evening. [facility] acute hospital DULoxetine 20 mg capsule 04-01 00:00: 00 08-19 00:00 :00 No [id number] 20mg Take 1 capsule by mouth in the morning and 1 capsule in the evening. [facility] acute hospital topiramate 50 mg tablet 04-01 00:00: 00 08-19 00:00 :00 No [id number] 50mg Take 1 tablet by mouth in the morning and 1 tablet in the evening. [facility] acute hospital ipratropium 0.02 % nebulizer solution 04-01 00:00: 00 06-10 00:00 :00 No [id number] .5mg Inhale 2.5 mL every 8 (eight) hours as needed for Wheezing or Shortness of Breath. [facility] hospital doxepin 50 mg capsule 04-01 00:00: 00 05-13 00:00 :00 No [id number] 50mg Take 1 capsule by mouth at bedtime. [facility] acute hospital nirmatrelvi r-ritonavir (PAXLOVID, EUA,) 300 mg (150 mg x 2)-100 mg tablet 04-01 00:00: 00 05-13 00:00 :00 No [id number] 3{tbl} Take 3 tablets by mouth in the morning and 3 tablets in the evening. [facility] acute hospital QUEtiapine (SEROQUEL) 100 mg tablet 04-01 00:00: 00 05-13 00:00 :00 No [id number] 100mg Take 1 tablet by mouth in the morning and 1 tablet in the evening. [facility] acute hospital glecaprevir -pibrentasv ir (MAVYRET) 100-40 mg 04-01 00:00: 00 04-21 00:00 :00 No [id number] 3{tbl} Take 3 tablets by mouth in the morning. [facility] acute hospital metroNIDAZO LE (FLAGYL) 500 mg tablet 04-01 00:00: 00 04-09 04:59 :00 No [id number] 500mg Take 1 tablet by mouth in the morning and 1 tablet in the evening. Do all this for 7 days. [facility] acute hospital ibuprofen 600 mg tablet 03-30 00:00: 00 04-01 00:00 :00 No [id number] 600mg Take 1 tablet by mouth every 6 (six) hours as needed for Pain (scale 1-3) or Pain (scale 4-6). [facility] acute hospital metroNIDAZO LE 500 mg tablet 02-05 00:00: 00 04-01 00:00 :00 No [id number] 500mg Take 1 tablet by mouth every 12 (twelve) hours. [facility] acute hospital medroxyPROG ESTERone (DEPO-PROVE RA) syringe 150 mg 02-02 22:00: 00 02-02 20:59 :00 No [id number] 150mg [facility] valACYclovi r 1 gram tablet 02-02 00:00: 00 04-28 00:00 :00 No [id number] 1g Take 1 tablet by mouth in the morning. [facility] acute hospital neomycin-po lymyxin-hyd rocortisone otic solution 03-24 00:00: 00 04-01 00:00 :00 No [id number] 4[drp] Place 4 Drops in right ear 4 (four) times daily. [facility] acute hospital amoxicillin 875 mg tablet 03-24 00:00: 00 04-01 04:59 :00 No [id number] 875mg Take 1 tablet by mouth in the morning and 1 tablet in the evening. Do all this for 7 days. [facility] acute hospital iopamidol (ISOVUE 370-500 mL) injection 55 mL 02-18 01:45: 00 02-18 01:45 :00 No [id number] 55mL 55 mL, Intravenou s, ONCE, 1 dose, On Thu02/17/22 at 2045, Routine [facility] acute hospital ketorolac (TORADOL) injection 15 mg 02-18 01:45: 00 02-18 01:15 :00 No 15mg 15 mg, Slow IV Push, ONCE, 1 dose, On Thu02/17/22 at 2045, UZMA [facility] acute hospital HYDROcodone -acetaminop hen (NORCO) 10-325 mg tablet 1 tablet 02-18 01:00: 00 02-18 00:20 :00 No 1{tbl} 1 tablet, Oral, ONCE NOW, 1 dose, On Thu02/17/22 at 2000, Routine [facility] acute hospital ibuprofen 600 mg tablet 02-17 00:00: 00 03-30 00:00 :00 No [id number] 600mg Take 1 tablet by mouth every 6 (six) hours as needed for Pain (scale 4-6). [facility] acute hospital ketorolac (TORADOL) injection 30 mg 11-24 09:45: 00 11-24 09:19 :00 No 30mg 30 mg, Slow IV Push, ONCE, 1 dose, On Thu11/24/21 at 0445, Routine
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 Restricted medication : ARIANNA WHITMORE General acute hospital morpHINE injection 4 mg 11-24 08:15: 00 11-24 08:03 :00 No 4mg 4 mg, Slow IV Push, ONCE, 1 dose, On 11/24/21 at 0315, [facility] F[facility] (SUBLIMAZE (PF)) injection 50 mcg 11-24 05:16: 00 11-24 05:20 :00 No 50ug 50 mcg, Slow IV Push, ONCE, 1 dose, On 11/24/21 at 0030, Routine [facility] ondansetron (ZOFRAN (PF)) injection 4 mg 11-24 04:30: 00 11-24 03:45 :00 No 4mg 4 mg, Slow IV Push, ONCE, 1 dose, On 11/23/21 at 2330, [facility]ZMA [facility] FENTanyl PF (SUBLIMAZE (PF)) injection 50 mcg 11-24 04:30: 00 11-24 03:45 :00 No 50ug 50 mcg, Slow IV Push, ONCE, 1 dose, On 11/23/21 at 2330, Routine [facility] iopamidol (ISOVUE 370-500 mL) injection 100 mL 11-24 04:19: 00 11-24 04:19 :00 No [id number] 100mL 100 mL, Intravenou s, ONCE, 1 dose, On 11/23/21 at 2330, Routine [facility] HYDROcodone -acetaminop hen (NORCO) 10-325 mg tablet 11-24 00:00: 00 04-01 00:00 :00 No [id number] 1{tbl} Take 1 tablet by mouth every 6 (six) hours as needed for Pain (scale 7-10). Indication s: acute pain Univers [facility] ketorolac 10 mg tablet 11-24 00:00: 00 03-30 00:00 :00 No [id number] 10mg Take 1 tablet by mouth every 6 (six) hours as needed for Alternate with [place] for pain scale 4-6. [facility] ibuprofen 800 mg tablet 11-07 00:00: 00 04-01 00:00 :00 No [id number] 800mg Take 1 tablet by mouth every 8 (eight) hours. [facility] acute hospital oxyCODONE-a cetaminophe n 5-325 mg per tablet 11-07 00:00: 00 04-01 00:00 :00 No [id number] 1{tbl} Take 1 tablet by mouth every 6 (six) hours as needed for Pain (scale 4-6). Indication s: acute pain [facility] acute hospital chlorhexidi ne 0.12 % mouthwash 1- 00:00: 00 04-01 00:00 :00 No [facility] acute hospital DULOXETINE 20 mg capsule 01-29 00:00: 00 04-01 00:00 :00 No [id number] TAKE 1 CAPSULE BY MOUTH TWICE DAILY [facility] acute hospital glecaprevir -pibrentasv ir (MAVYRET) 100-40 mg 10-28 00:00: 00 04-01 00:00 :00 No [id number] 3{tbl} Take 3 tablets by mouth in the morning. [facility] acute hospital buPROPion SR (WELLBUTRIN SR) 150 mg SR tablet 10-28 00:00: 00 04-01 00:00 :00 No [id number] 150mg Take 1 tablet by mouth daily. [facility] acute hospital benzoyl peroxide (ACNE FOAMING WASH) 10 % external wash 10-28 00:00: 00 04-01 00:00 :00 No [id number] Apply to area(s) 2 (two) times daily. [facility] acute hospital albuterol 90 mcg/actuati on inhaler 10-28 00:00: 00 04-01 00:00 :00 No [id number] 2{puff} Inhale 2 Puffs every 4 (four) hours as needed for Wheezing or Shortness of Breath. [facility] acute hospital albuterol 2.5 mg /3 mL (0.083 %) nebulizer solution 10-28 00:00: 00 04-01 00:00 :00 No [id number] 2.5mg Inhale 3 mL every 4 (four) hours as needed for Wheezing or Shortness of Breath. [facility] acute hospital meclizine 25 mg tablet 10-28 00:00: 00 04-01 00:00 :00 No [id number] 25mg Take 1 tablet by mouth 3 (three) times daily as needed for Dizziness. [facility] acute hospital valACYclovi r 1 gram tablet 10-28 00:00: 00 02-02 00:00 :00 No [id number] 1g Take 1 tablet by mouth daily. [facility] acute hospital lidocaine 3 % Crea 10-28 00:00: 00 11-07 00:00 :00 No [id number] 2g Apply 2 g to area(s) 3 (three) times daily as needed for Pain (scale 4-6). [facility] acute hospital bromphenira mine-pseudo ephedrine-D M (BROMFED DM) 2-30-10 mg/5 mL syrup 10-28 00:00: 00 11-07 00:00 :00 No [id number] 5mL Take 5 mL by mouth 4 (four) times daily as needed for Congestion /Allergies . [facility] acute hospital dicyclomine 20 mg tablet 10-28 00:00: 00 11-07 00:00 :00 No [id number] 20mg Take 1 tablet by mouth every 6 (six) hours as needed for Abdominal pain. [facility] acute hospital DULoxetine 20 mg capsule 10-28 00:00: 00 12-20 00:00 :00 No [id number] 20mg Take 1 capsule by mouth 2 (two) times daily. [facility] acute hospital topiramate 50 mg tablet 10-25 00:00: 00 04-01 00:00 :00 No 50mg Take 1 tablet by mouth 2 (two) times daily. [facility] acute hospital triamcinolo ne acetonide 0.1 % cream 08-17 00:00: 00 Yes [id number] Apply to area(s) 2 (two) times daily. [facility] acute hospital tretinoin 0.075 % Crea 08-17 00:00: 00 04-28 00:00 :00 No [id number] 1g Apply 1 g to area(s) at bedtime. [facility] acute hospital fluticasone propionate 110 mcg/actuati on inhaler 08-17 00:00: 00 04-01 00:00 :00 No [id number] 1{puff} Inhale 1 Puff every 12 (twelve) hours. [facility] acute hospital carBAMazepi ne 400 mg 12 hr tablet 08-17 00:00: 00 04-01 00:00 :00 No [id number] 400mg Take 1 tablet by mouth 2 (two) times daily. [facility] acute hospital doxepin 50 mg capsule 08-17 00:00: 00 04-01 00:00 :00 No [id number] 50mg Take 1 capsule by mouth at bedtime. [facility] acute hospital ipratropium 0.02 % nebulizer solution 08-17 00:00: 00 04-01 00:00 :00 No [id number] .5mg Inhale 2.5 mL every 8 (eight) hours as needed for Wheezing or Shortness of Breath. [facility] acute hospital Miscellaneo [employer] Kit 08-17 00:00: 00 11-07 00:00 :00 No [id number] J40: Rochelletis - Dispense # 1 Laura Respironic s (okay for alternativ e brand) for nebulizer treatment [facility] acute hospital azelaic acid 20 % cream 08-17 00:00: 00 11-07 00:00 :00 No [id number] Apply to area(s) 2 (two) times daily. Apply 2g to affected areas BID [facility] acute hospital ondansetron (ZOFRAN) 4 mg tablet 08-17 00:00: 00 11-07 00:00 :00 No [id number] 4mg Take 1 tablet by mouth every 8 (eight) hours as needed for Nausea and Vomiting (N/V). [facility] acute hospital proMETHazin e (PHENERGAN) 25 mg suppository 08-17 00:00: 11-07 00:00 :00 No [id number] 25mg Insert 1 Suppositor y into rectum every 4 (four) hours as needed for Nausea and Vomiting (N/V). [facility] acute hospital predniSONE 20 mg tablet 2019-08 1- 00:00: 11-07 00:00 :00 No [id number] 60mg Take 3 tablets by mouth every morning. [facility] acute hospital topiramate 50 mg tablet 04-10 00:00: 08-15 00:00 :00 No 50mg Take 1 tablet by mouth 2 (two) times daily. [facility] acute hospital benzoyl peroxide (ACNE FOAMING WASH) 10 % external wash 03-13 00:00: 04-08 00:00 :00 No [id number] Apply to area(s) 2 (two) times daily. [facility] acute hospital proMETHazin e (PHENERGAN) 25 mg suppository 03-13 00:00: 04-08 00:00 :00 No [id number] 25mg Insert 1 Suppositor y into rectum every 4 (four) hours as needed for Nausea and Vomiting (N/V). [facility] acute hospital ondansetron (ZOFRAN) 4 mg tablet 03-13 00:00: 04-08 00:00 :00 No [id number] 4mg Take 1 tablet by mouth every 8 (eight) hours as needed for Nausea and Vomiting (N/V). [facility] acute hospital dicyclomine 20 mg tablet 03-13 00:00: 04-08 00:00 :00 No [id number] 20mg Take 1 tablet by mouth every 6 (six) hours as needed for Abdominal pain. [facility] acute hospital azelaic acid 20 % cream 03-13 00:00: 04-08 00:00 :00 No [id number] Apply to area(s) 2 (two) times daily. Apply 2g to affected areas BID [facility] acute hospital tretinoin 0.075 % Crea 8-04 00:0004-08 00:00 :00 No [id number] 1g Apply 1 g to area(s) at bedtime. [facility] acute hospital doxycycline hyclate 100 mg tablet 02-26 00:00: 04-08 00:00 :00 No [id number] 100mg Take 1 tablet by mouth 2 (two) times daily. [facility] acute hospital bromphenira mine-pseudo ephedrine-D M (BROMFED DM) 2-30-10 mg/5 mL syrup 02-26 00:0004-08 00:00 :00 No [id number] 10mL Take 10 mL by mouth 4 (four) times daily as needed for Congestion /Allergies . [facility] acute hospital albuterol 2.5 mg /3 mL (0.083 %) nebulizer solution 02-26 00:00: 04-08 00:00 :00 No [id number] 2.5mg Inhale 3 mL every 4 (four) hours as needed for Wheezing or Shortness of Breath. [facility] acute hospital ipratropium 0.02 % nebulizer solution 02-26 00:00: 04-08 00:00 :00 No [id number] .5mg Inhale 2.5 mL every 4 (four) hours as needed for Wheezing or Shortness of Breath. [facility] acute hospital triamcinolo ne acetonide 0.1 % cream 4-21 00:00: 04-08 00:00 :00 No [id number] Apply to area(s) 2 (two) times daily. [facility] acute hospital traMADol 50 mg tablet 4-12 00:00: 04-12 00:00 :00 No [id number] 50mg Take 1 tablet by mouth every 6 (six) hours as needed for Pain (scale 4-6). [facility] acute hospital topiramate 25 mg tablet 3-17 00:00: 04-10 00:00 :00 No [id number] 25mg Take 1 tablet by mouth 2 (two) times daily. For 5 days, then 2 PO BID. [facility] acute hospital glecaprevir -pibrentasv ir (MAVYRET) 100-40 mg 10-06 00:00: 04-08 00:00 :00 No [id number] 3{tbl} Take 3 tablets by mouth daily. [facility] acute hospital Miscellaneo [employer] Kit 08-31 00:00: 00 08-15 00:00 :00 No [id number] J40: Brochitis - Dispense # 1 Laura Respironic s (okay for alternativ e brand) for nebulizer treatment [facility] acute hospital fluticasone propionate 110 mcg/actuati on inhaler 08-31 00:00: 00 04-08 00:00 :00 No [id number] 1{puff} Inhale 1 Puff every 12 (twelve) hours. [facility] acute hospital buPROPion SR (WELLBUTRIN SR) 150 mg SR tablet 08-12 00:00: 04-08 00:00 :00 No [id number] 150mg Take 1 tablet by mouth daily. [facility] acute hospital doxepin 50 mg capsule 2018-08 00:00: 04-08 00:00 :00 No [id number] 50mg Take 1 capsule by mouth at bedtime. [facility] acute hospital carBAMazepi ne 400 mg 12 hr tablet 2018-08 00:00: 06-22 00:00 :00 No [id number] 400mg Take 1 tablet by mouth 2 (two) times daily. [facility] acute hospital benzonatate 100 mg capsule 9 00:00: 00 11-07 00:00 :00 No 100mg Take 1 capsule by mouth 3 (three) times daily as needed for Cough. [facility] acute hospital Immunizations Ordered Immunization Name Filled Immunization Name Date Status Comments Source SARS-COV-2 COVID-19 MODERNA 0.25ML BOOSTER VACCINE 2022-01-23 00:00:00 Completed [facility] SARS-COV-2 COVID-19 MODERNA 0.25ML BOOSTER VACCINE 2022-01-23 00:00:00 Completed [facility] SARS-COV-2 COVID-19 MODERNA 0.25ML BOOSTER VACCINE 2022-01-23 00:00:00 Completed [facility] SARS-COV-2 COVID-19 MODERNA 0.25ML BOOSTER VACCINE 2022-01-23 00:00:00 Completed [facility] SARS-COV-2 COVID-19 MODERNA 0.25ML BOOSTER VACCINE 2022-01-23 00:00:00 Completed [facility] SARS-COV-2 COVID-19 MODERNA 0.25ML BOOSTER VACCINE 2022-01-23 00:00:00 Completed [facility] SARS-COV-2 COVID-19 MODERNA 0.25ML BOOSTER VACCINE 2022-01-23 00:00:00 Completed [facility] SARS-COV-2 COVID-19 MODERNA 0.25ML BOOSTER VACCINE 2022-01-23 00:00:00 Completed [facility] SARS-COV-2 COVID-19 MODERNA 0.25ML BOOSTER VACCINE 2022-01-23 00:00:00 Completed [facility] SARS-COV-2 COVID-19 MODERNA 0.25ML BOOSTER VACCINE 2022-01-23 00:00:00 Completed [facility] SARS-COV-2 COVID-19 MODERNA 0.25ML BOOSTER VACCINE 2022-01-23 00:00:00 Completed [facility] SARS-COV-2 COVID-19 MODERNA 0.25ML BOOSTER VACCINE 2022-01-23 00:00:00 Completed [facility] SARS-COV-2 COVID-19 MODERNA 0.25ML BOOSTER VACCINE 2022-01-23 00:00:00 Completed [facility] SARS-COV-2 COVID-19 MODERNA 0.25ML BOOSTER VACCINE 2022-01-23 00:00:00 Completed [facility] SARS-COV-2 COVID-19 MODERNA 0.25ML BOOSTER VACCINE 2022-01-23 00:00:00 Completed [facility] SARS-COV-2 COVID-19 MODERNA 0.25ML BOOSTER VACCINE 2022-01-23 00:00:00 Completed [facility] SARS-COV-2 COVID-19 MODERNA 0.25ML BOOSTER VACCINE 2022-01-23 00:00:00 Completed [facility] SARS-COV-2 COVID-19 MODERNA 0.25ML BOOSTER VACCINE 2022-01-23 00:00:00 Completed [facility] SARS-COV-2 COVID-19 MODERNA 0.25ML BOOSTER VACCINE 2022-01-23 00:00:00 Completed [facility] SARS-COV-2 COVID-19 MODERNA 0.25ML BOOSTER VACCINE 2022-01-23 00:00:00 Completed [facility] SARS-COV-2 COVID-19 MODERNA 0.25ML BOOSTER VACCINE 2022-01-23 00:00:00 Completed [facility] SARS-COV-2 COVID-19 MODERNA 0.25ML BOOSTER VACCINE 2022-01-23 00:00:00 Completed [facility] SARS-COV-2 COVID-19 MODERNA 0.25ML BOOSTER VACCINE 2022-01-23 00:00:00 Completed [facility] SARS-COV-2 COVID-19 MODERNA 0.25ML BOOSTER VACCINE 2022-01-23 00:00:00 Completed [facility] SARS-COV-2 COVID-19 MODERNA 0.25ML BOOSTER VACCINE 2022-01-23 00:00:00 Completed [facility] SARS-COV-2 COVID-19 MODERNA 0.25ML BOOSTER VACCINE 2022-01-23 00:00:00 Completed [facility] SARS-COV-2 COVID-19 MODERNA 0.25ML BOOSTER VACCINE 2022-01-23 00:00:00 Completed [facility] SARS-COV-2 COVID-19 MODERNA 0.25ML BOOSTER VACCINE 2022-01-23 00:00:00 Completed [facility] SARS-COV-2 COVID-19 MODERNA 0.25ML BOOSTER VACCINE 2022-01-23 00:00:00 Completed [facility] SARS-COV-2 COVID-19 MODERNA 0.25ML BOOSTER VACCINE 2022-01-23 00:00:00 Completed [facility] SARS-COV-2 COVID-19 MODERNA 0.25ML BOOSTER VACCINE 2022-01-23 00:00:00 Completed [facility] SARS-COV-2 COVID-19 MODERNA 0.25ML BOOSTER VACCINE 2022-01-23 00:00:00 Completed [facility] SARS-COV-2 COVID-19 MODERNA 0.25ML BOOSTER VACCINE 2022-01-23 00:00:00 Completed [facility] SARS-COV-2 COVID-19 MODERNA 0.25ML BOOSTER VACCINE 2022-01-23 00:00:00 Completed [facility] SARS-COV-2 COVID-19 MODERNA 0.25ML BOOSTER VACCINE 2022-01-23 00:00:00 Completed [facility] SARS-COV-2 COVID-19 MODERNA 0.25ML BOOSTER VACCINE 2022-01-23 00:00:00 Completed [facility] SARS-COV-2 COVID-19 MODERNA VACCINE 2020-11-14 00:00:00 Completed [facility] SARS-COV-2 COVID-19 MODERNA VACCINE 2020-11-14 00:00:00 Completed [facility] SARS-COV-2 COVID-19 MODERNA VACCINE 2020-11-14 00:00:00 Completed [facility] SARS-COV-2 COVID-19 MODERNA VACCINE 2020-11-14 00:00:00 Completed [facility] SARS-COV-2 COVID-19 MODERNA VACCINE 2020-11-14 00:00:00 Completed [facility] SARS-COV-2 COVID-19 MODERNA VACCINE 2020-11-14 00:00:00 Completed [facility] SARS-COV-2 COVID-19 MODERNA VACCINE 2020-11-14 00:00:00 Completed [facility] SARS-COV-2 COVID-19 MODERNA VACCINE 2020-11-14 00:00:00 Completed [facility] SARS-COV-2 COVID-19 MODERNA VACCINE 2020-11-14 00:00:00 Completed [facility] SARS-COV-2 COVID-19 MODERNA VACCINE 2020-11-14 00:00:00 Completed [facility] SARS-COV-2 COVID-19 MODERNA VACCINE 2020-11-14 00:00:00 Completed [facility] SARS-COV-2 COVID-19 MODERNA 12+ YRS VACCINE 2020-11-14 00:00:00 Completed [facility] SARS-COV-2 COVID-19 MODERNA 12+ YRS VACCINE 2020-11-14 00:00:00 Completed [facility] SARS-COV-2 COVID-19 MODERNA 12+ YRS VACCINE 2020-11-14 00:00:00 Completed [facility] SARS-COV-2 COVID-19 MODERNA 12+ YRS VACCINE 2020-11-14 00:00:00 Completed [facility] SARS-COV-2 COVID-19 MODERNA 12+ YRS VACCINE 2020-11-14 00:00:00 Completed [facility] SARS-COV-2 COVID-19 MODERNA 12+ YRS VACCINE 2020-11-14 00:00:00 Completed [facility] SARS-COV-2 COVID-19 MODERNA 12+ YRS VACCINE 2020-11-14 00:00:00 Completed [facility] SARS-COV-2 COVID-19 MODERNA 12+ YRS VACCINE 2020-11-14 00:00:00 Completed [facility] SARS-COV-2 COVID-19 MODERNA 12+ YRS VACCINE 2020-11-14 00:00:00 Completed [facility] SARS-COV-2 COVID-19 MODERNA 12+ YRS VACCINE 2020-11-14 00:00:00 Completed [facility] SARS-COV-2 COVID-19 MODERNA 12+ YRS VACCINE 2020-11-14 00:00:00 Completed [facility] SARS-COV-2 COVID-19 MODERNA 12+ YRS VACCINE 2020-11-14 00:00:00 Completed [facility] SARS-COV-2 COVID-19 MODERNA 12+ YRS VACCINE 2020-11-14 00:00:00 Completed [facility] SARS-COV-2 COVID-19 MODERNA 12+ YRS VACCINE 2020-11-14 00:00:00 Completed [facility] SARS-COV-2 COVID-19 MODERNA 12+ YRS VACCINE 2020-11-14 00:00:00 Completed [facility] SARS-COV-2 COVID-19 MODERNA 12+ YRS VACCINE 2020-11-14 00:00:00 Completed [facility] SARS-COV-2 COVID-19 MODERNA 12+ YRS VACCINE 2020-11-14 00:00:00 Completed [facility] SARS-COV-2 COVID-19 MODERNA 12+ YRS VACCINE 2020-11-14 00:00:00 Completed [facility] SARS-COV-2 COVID-19 MODERNA 12+ YRS VACCINE 2020-11-14 00:00:00 Completed [facility] SARS-COV-2 COVID-19 MODERNA 12+ YRS VACCINE 2020-11-14 00:00:00 Completed [facility] SARS-COV-2 COVID-19 MODERNA 12+ YRS VACCINE 2020-11-14 00:00:00 Completed [facility] SARS-COV-2 COVID-19 MODERNA 12+ YRS VACCINE 2020-11-14 00:00:00 Completed [facility] SARS-COV-2 COVID-19 MODERNA 12+ YRS VACCINE 2020-11-14 00:00:00 Completed [facility] SARS-COV-2 COVID-19 MODERNA 12+ YRS VACCINE 2020-11-14 00:00:00 Completed [facility] SARS-COV-2 COVID-19 MODERNA 12+ YRS VACCINE 2020-11-14 00:00:00 Completed [facility] SARS-COV-2 COVID-19 MODERNA 12+ YRS VACCINE 2020-11-14 00:00:00 Completed [facility] SARS-COV-2 COVID-19 MODERNA 12+ YRS VACCINE 2020-11-14 00:00:00 Completed [facility] SARS-COV-2 COVID-19 MODERNA 12+ YRS VACCINE 2020-11-14 00:00:00 Completed [facility] SARS-COV-2 COVID-19 MODERNA 12+ YRS VACCINE 2020-11-14 00:00:00 Completed [facility] SARS-COV-2 COVID-19 MODERNA 12+ YRS VACCINE 2020-11-14 00:00:00 Completed [facility] SARS-COV-2 COVID-19 MODERNA VACCINE 2020-10-17 00:00:00 Completed [facility] SARS-COV-2 COVID-19 MODERNA VACCINE 2020-10-17 00:00:00 Completed [facility] SARS-COV-2 COVID-19 MODERNA VACCINE 2020-10-17 00:00:00 Completed [facility] SARS-COV-2 COVID-19 MODERNA VACCINE 2020-10-17 00:00:00 Completed [facility] SARS-COV-2 COVID-19 MODERNA VACCINE 2020-10-17 00:00:00 Completed [facility] SARS-COV-2 COVID-19 MODERNA VACCINE 2020-10-17 00:00:00 Completed [facility] SARS-COV-2 COVID-19 MODERNA VACCINE 2020-10-17 00:00:00 Completed [facility] SARS-COV-2 COVID-19 MODERNA VACCINE 2020-10-17 00:00:00 Completed [facility] SARS-COV-2 COVID-19 MODERNA VACCINE 2020-10-17 00:00:00 Completed [facility] SARS-COV-2 COVID-19 MODERNA VACCINE 2020-10-17 00:00:00 Completed [facility] SARS-COV-2 COVID-19 MODERNA VACCINE 2020-10-17 00:00:00 Completed [facility] SARS-COV-2 COVID-19 MODERNA 12+ YRS VACCINE 2020-10-17 00:00:00 Completed [facility] SARS-COV-2 COVID-19 MODERNA 12+ YRS VACCINE 2020-10-17 00:00:00 Completed [facility] SARS-COV-2 COVID-19 MODERNA 12+ YRS VACCINE 2020-10-17 00:00:00 Completed [facility] SARS-COV-2 COVID-19 MODERNA 12+ YRS VACCINE 2020-10-17 00:00:00 Completed [facility] SARS-COV-2 COVID-19 MODERNA 12+ YRS VACCINE 2020-10-17 00:00:00 Completed [facility] SARS-COV-2 COVID-19 MODERNA 12+ YRS VACCINE 2020-10-17 00:00:00 Completed [facility] SARS-COV-2 COVID-19 MODERNA 12+ YRS VACCINE 2020-10-17 00:00:00 Completed [facility] SARS-COV-2 COVID-19 MODERNA 12+ YRS VACCINE 2020-10-17 00:00:00 Completed [facility] SARS-COV-2 COVID-19 MODERNA 12+ YRS VACCINE 2020-10-17 00:00:00 Completed [facility] SARS-COV-2 COVID-19 MODERNA 12+ YRS VACCINE 2020-10-17 00:00:00 Completed [facility] SARS-COV-2 COVID-19 MODERNA 12+ YRS VACCINE 2020-10-17 00:00:00 Completed [facility] SARS-COV-2 COVID-19 MODERNA 12+ YRS VACCINE 2020-10-17 00:00:00 Completed [facility] SARS-COV-2 COVID-19 MODERNA 12+ YRS VACCINE 2020-10-17 00:00:00 Completed [facility] SARS-COV-2 COVID-19 MODERNA 12+ YRS VACCINE 2020-10-17 00:00:00 Completed [facility] SARS-COV-2 COVID-19 MODERNA 12+ YRS VACCINE 2020-10-17 00:00:00 Completed [facility] SARS-COV-2 COVID-19 MODERNA 12+ YRS VACCINE 2020-10-17 00:00:00 Completed [facility] SARS-COV-2 COVID-19 MODERNA 12+ YRS VACCINE 2020-10-17 00:00:00 Completed [facility] SARS-COV-2 COVID-19 MODERNA 12+ YRS VACCINE 2020-10-17 00:00:00 Completed [facility] SARS-COV-2 COVID-19 MODERNA 12+ YRS VACCINE 2020-10-17 00:00:00 Completed [facility] SARS-COV-2 COVID-19 MODERNA 12+ YRS VACCINE 2020-10-17 00:00:00 Completed [facility] SARS-COV-2 COVID-19 MODERNA 12+ YRS VACCINE 2020-10-17 00:00:00 Completed [facility] SARS-COV-2 COVID-19 MODERNA 12+ YRS VACCINE 2020-10-17 00:00:00 Completed [facility] SARS-COV-2 COVID-19 MODERNA 12+ YRS VACCINE 2020-10-17 00:00:00 Completed [facility] SARS-COV-2 COVID-19 MODERNA 12+ YRS VACCINE 2020-10-17 00:00:00 Completed [facility] SARS-COV-2 COVID-19 MODERNA 12+ YRS VACCINE 2020-10-17 00:00:00 Completed [facility] SARS-COV-2 COVID-19 MODERNA 12+ YRS VACCINE 2020-10-17 00:00:00 Completed [facility] SARS-COV-2 COVID-19 MODERNA 12+ YRS VACCINE 2020-10-17 00:00:00 Completed [facility] SARS-COV-2 COVID-19 MODERNA 12+ YRS VACCINE 2020-10-17 00:00:00 Completed [facility] SARS-COV-2 COVID-19 MODERNA 12+ YRS VACCINE 2020-10-17 00:00:00 Completed [facility] SARS-COV-2 COVID-19 MODERNA 12+ YRS VACCINE Unknown Completed [facility] SARS-COV-2 COVID-19 MODERNA 0.25ML BOOSTER VACCINE Unknown Completed [facility] SARS-COV-2 COVID-19 MODERNA 0.25ML BOOSTER VACCINE Unknown Completed [facility] SARS-COV-2 COVID-19 MODERNA 12+ YRS VACCINE Unknown Completed [facility] SARS-COV-2 COVID-19 MODERNA 0.25ML BOOSTER VACCINE Unknown Completed [facility] SARS-COV-2 COVID-19 MODERNA 12+ YRS VACCINE Unknown Completed [facility] SARS-COV-2 COVID-19 MODERNA 0.25ML BOOSTER VACCINE Unknown Completed [facility] SARS-COV-2 COVID-19 MODERNA 12+ YRS VACCINE Unknown Completed [facility] SARS-COV-2 COVID-19 MODERNA 0.25ML BOOSTER VACCINE Unknown Completed [facility] SARS-COV-2 COVID-19 MODERNA 12+ YRS VACCINE Unknown Completed [facility] SARS-COV-2 COVID-19 MODERNA 0.25ML BOOSTER VACCINE Unknown Completed [facility] SARS-COV-2 COVID-19 MODERNA 12+ YRS VACCINE Unknown Completed [facility] SARS-COV-2 COVID-19 MODERNA 0.25ML BOOSTER VACCINE Unknown Completed [facility] SARS-COV-2 COVID-19 MODERNA 12+ YRS VACCINE Unknown Completed [facility] SARS-COV-2 COVID-19 MODERNA 0.25ML BOOSTER VACCINE Unknown Completed [facility] SARS-COV-2 COVID-19 MODERNA 12+ YRS VACCINE Unknown Completed [facility] SARS-COV-2 COVID-19 MODERNA 0.25ML BOOSTER VACCINE Unknown Completed [facility] SARS-COV-2 COVID-19 MODERNA 12+ YRS VACCINE Unknown Completed [facility] SARS-COV-2 COVID-19 MODERNA 12+ YRS VACCINE Unknown Completed [facility] SARS-COV-2 COVID-19 MODERNA 12+ YRS VACCINE Unknown Completed [facility] SARS-COV-2 COVID-19 MODERNA 0.25ML BOOSTER VACCINE Unknown Completed [facility] SARS-COV-2 COVID-19 MODERNA 12+ YRS VACCINE Unknown Completed [facility] SARS-COV-2 COVID-19 MODERNA 0.25ML BOOSTER VACCINE Unknown Completed [facility] SARS-COV-2 COVID-19 MODERNA 12+ YRS VACCINE Unknown Completed [facility] SARS-COV-2 COVID-19 MODERNA 0.25ML BOOSTER VACCINE Unknown Completed [facility] SARS-COV-2 COVID-19 MODERNA 12+ YRS VACCINE Unknown Completed [facility] SARS-COV-2 COVID-19 MODERNA 0.25ML BOOSTER VACCINE Unknown Completed [facility] SARS-COV-2 COVID-19 MODERNA 12+ YRS VACCINE Unknown Completed [facility] SARS-COV-2 COVID-19 MODERNA 0.25ML BOOSTER VACCINE Unknown Completed [facility] SARS-COV-2 COVID-19 MODERNA 12+ YRS VACCINE Unknown Completed [facility] SARS-COV-2 COVID-19 MODERNA 0.25ML BOOSTER VACCINE Unknown Completed [facility] SARS-COV-2 COVID-19 MODERNA 12+ YRS VACCINE Unknown Completed [facility] SARS-COV-2 COVID-19 MODERNA 0.25ML BOOSTER VACCINE Unknown Completed [facility] SARS-COV-2 COVID-19 MODERNA 12+ YRS VACCINE Unknown Completed [facility] SARS-COV-2 COVID-19 MODERNA 0.25ML BOOSTER VACCINE Unknown Completed [facility] SARS-COV-2 COVID-19 MODERNA 12+ YRS VACCINE Unknown Completed [facility] SARS-COV-2 COVID-19 MODERNA 0.25ML BOOSTER VACCINE Unknown Completed [facility] SARS-COV-2 COVID-19 MODERNA 12+ YRS VACCINE Unknown Completed [facility] SARS-COV-2 COVID-19 MODERNA 0.25ML BOOSTER VACCINE Unknown Completed [facility] SARS-COV-2 COVID-19 MODERNA 12+ YRS VACCINE Unknown Completed [facility] SARS-COV-2 COVID-19 MODERNA 0.25ML BOOSTER VACCINE Unknown Completed [facility] SARS-COV-2 COVID-19 MODERNA 12+ YRS VACCINE Unknown Completed [facility] SARS-COV-2 COVID-19 MODERNA 0.25ML BOOSTER VACCINE Unknown Completed [facility] SARS-COV-2 COVID-19 MODERNA 12+ YRS VACCINE Unknown Completed [facility] SARS-COV-2 COVID-19 MODERNA 0.25ML BOOSTER VACCINE Unknown Completed [facility] SARS-COV-2 COVID-19 MODERNA 12+ YRS VACCINE Unknown Completed [facility] SARS-COV-2 COVID-19 MODERNA 0.25ML BOOSTER VACCINE Unknown Completed [facility] SARS-COV-2 COVID-19 MODERNA 12+ YRS VACCINE Unknown Completed [facility] SARS-COV-2 COVID-19 MODERNA 0.25ML BOOSTER VACCINE Unknown Completed [facility] SARS-COV-2 COVID-19 MODERNA 12+ YRS VACCINE Unknown Completed [facility] SARS-COV-2 COVID-19 MODERNA 0.25ML BOOSTER VACCINE Unknown Completed [facility] SARS-COV-2 COVID-19 MODERNA 12+ YRS VACCINE Unknown Completed [facility] SARS-COV-2 COVID-19 MODERNA 0.25ML BOOSTER VACCINE Unknown Completed [facility] SARS-COV-2 COVID-19 MODERNA 12+ YRS VACCINE Unknown Completed [facility] SARS-COV-2 COVID-19 MODERNA 0.25ML BOOSTER VACCINE Unknown Completed [facility] SARS-COV-2 COVID-19 MODERNA 0.25ML BOOSTER VACCINE Unknown Completed [facility] SARS-COV-2 COVID-19 MODERNA 12+ YRS VACCINE Unknown Completed [facility] SARS-COV-2 COVID-19 MODERNA 12+ YRS VACCINE Unknown Completed [facility] SARS-COV-2 COVID-19 MODERNA 0.25ML BOOSTER VACCINE Unknown Completed [facility] SARS-COV-2 COVID-19 MODERNA 12+ YRS VACCINE Unknown Completed [facility] SARS-COV-2 COVID-19 MODERNA 0.25ML BOOSTER VACCINE Unknown Completed [facility] SARS-COV-2 COVID-19 MODERNA 12+ YRS VACCINE Unknown Completed [facility] SARS-COV-2 COVID-19 MODERNA 0.25ML BOOSTER VACCINE Unknown Completed [facility] SARS-COV-2 COVID-19 MODERNA 12+ YRS VACCINE Unknown Completed [facility] SARS-COV-2 COVID-19 MODERNA 0.25ML BOOSTER VACCINE Unknown Completed [facility] SARS-COV-2 COVID-19 MODERNA 12+ YRS VACCINE Unknown Completed [facility] SARS-COV-2 COVID-19 MODERNA 0.25ML BOOSTER VACCINE Unknown Completed [facility] SARS-COV-2 COVID-19 MODERNA 12+ YRS VACCINE Unknown Completed [facility] SARS-COV-2 COVID-19 MODERNA 0.25ML BOOSTER VACCINE Unknown Completed [facility] SARS-COV-2 COVID-19 MODERNA 12+ YRS VACCINE Unknown Completed [facility] SARS-COV-2 COVID-19 MODERNA 0.25ML BOOSTER VACCINE Unknown Completed [facility] SARS-COV-2 COVID-19 MODERNA 12+ YRS VACCINE Unknown Completed [facility] SARS-COV-2 COVID-19 MODERNA 0.25ML BOOSTER VACCINE Unknown Completed [facility] SARS-COV-2 COVID-19 MODERNA 12+ YRS VACCINE Unknown Completed [facility] SARS-COV-2 COVID-19 MODERNA 0.25ML BOOSTER VACCINE Unknown Completed [facility] SARS-COV-2 COVID-19 MODERNA 12+ YRS VACCINE Unknown Completed [facility] SARS-COV-2 COVID-19 MODERNA 0.25ML BOOSTER VACCINE Unknown Completed [facility] SARS-COV-2 COVID-19 MODERNA 12+ YRS VACCINE Unknown Completed [facility] SARS-COV-2 COVID-19 MODERNA 0.25ML BOOSTER VACCINE Unknown Completed [facility] SARS-COV-2 COVID-19 MODERNA 12+ YRS VACCINE Unknown Completed [facility] SARS-COV-2 COVID-19 MODERNA 0.25ML BOOSTER VACCINE Unknown Completed [facility] SARS-COV-2 COVID-19 MODERNA 12+ YRS VACCINE Unknown Completed [facility] SARS-COV-2 COVID-19 MODERNA 0.25ML BOOSTER VACCINE Unknown Completed [facility] SARS-COV-2 COVID-19 MODERNA 0.25ML BOOSTER VACCINE Unknown Completed [facility] SARS-COV-2 COVID-19 MODERNA 12+ YRS VACCINE Unknown Completed [facility] SARS-COV-2 COVID-19 MODERNA 12+ YRS VACCINE Unknown Completed [facility] SARS-COV-2 COVID-19 MODERNA 0.25ML BOOSTER VACCINE Unknown Completed [facility] SARS-COV-2 COVID-19 MODERNA 0.25ML BOOSTER VACCINE Unknown Completed [facility] SARS-COV-2 COVID-19 MODERNA 12+ YRS VACCINE Unknown Completed [facility] SARS-COV-2 COVID-19 MODERNA 12+ YRS VACCINE Unknown Completed [facility] SARS-COV-2 COVID-19 MODERNA 0.25ML BOOSTER VACCINE Unknown Completed [facility] SARS-COV-2 COVID-19 MODERNA 12+ YRS VACCINE Unknown Completed [facility] SARS-COV-2 COVID-19 MODERNA 0.25ML BOOSTER VACCINE Unknown Completed [facility] SARS-COV-2 COVID-19 MODERNA 0.25ML BOOSTER VACCINE Unknown Completed [facility] SARS-COV-2 COVID-19 MODERNA 12+ YRS VACCINE Unknown Completed [facility] SARS-COV-2 COVID-19 MODERNA 12+ YRS VACCINE Unknown Completed [facility] SARS-COV-2 COVID-19 MODERNA 0.25ML BOOSTER VACCINE Unknown Completed [facility] SARS-COV-2 COVID-19 MODERNA 12+ YRS VACCINE Unknown Completed [facility] SARS-COV-2 COVID-19 MODERNA 0.25ML BOOSTER VACCINE Unknown Completed [facility] SARS-COV-2 COVID-19 MODERNA 12+ YRS VACCINE Unknown Completed [facility] SARS-COV-2 COVID-19 MODERNA 0.25ML BOOSTER VACCINE Unknown Completed [facility] SARS-COV-2 COVID-19 MODERNA 12+ YRS VACCINE Unknown Completed [facility] SARS-COV-2 COVID-19 MODERNA 0.25ML BOOSTER VACCINE Unknown Completed [facility] SARS-COV-2 COVID-19 MODERNA 0.25ML BOOSTER VACCINE Unknown Completed [facility] SARS-COV-2 COVID-19 MODERNA 12+ YRS VACCINE Unknown Completed [facility] SARS-COV-2 COVID-19 MODERNA 12+ YRS VACCINE Unknown Completed [facility] SARS-COV-2 COVID-19 MODERNA 0.25ML BOOSTER VACCINE Unknown Completed [facility] SARS-COV-2 COVID-19 MODERNA 0.25ML BOOSTER VACCINE Unknown Completed [facility] SARS-COV-2 COVID-19 MODERNA 12+ YRS VACCINE Unknown Completed [facility] SARS-COV-2 COVID-19 MODERNA 0.25ML BOOSTER VACCINE Unknown Completed [facility] SARS-COV-2 COVID-19 MODERNA 12+ YRS VACCINE Unknown Completed [facility] SARS-COV-2 COVID-19 MODERNA 0.25ML BOOSTER VACCINE Unknown Completed [facility] SARS-COV-2 COVID-19 MODERNA 12+ YRS VACCINE Unknown Completed [facility] SARS-COV-2 COVID-19 MODERNA 12+ YRS VACCINE Unknown Completed [facility] SARS-COV-2 COVID-19 MODERNA 0.25ML BOOSTER VACCINE Unknown Completed [facility] SARS-COV-2 COVID-19 MODERNA 0.25ML BOOSTER VACCINE Unknown Completed [facility] SARS-COV-2 COVID 19 ALLY SUCROSE VACCINE 12+, [id number], 0.3 ML (30 MCG), IM PFIZER (TRAN TOP) Unknown Completed [facility] SARS-COV-2 COVID-19 MODERNA 12+ YRS VACCINE Unknown Completed [facility] SARS-COV-2 COVID-19 MODERNA 0.25ML BOOSTER VACCINE Unknown Completed [facility] SARS-COV-2 COVID 19 ALLY SUCROSE VACCINE 12, , 0.3 ML (30 MCG), IM PFIZER (TRAN TOP) Unknown Completed [facility] SARS-COV-2 COVID-19 MODERNA 12+ YRS VACCINE Unknown Completed [facility] SARS-COV-2 COVID-19 MODERNA 12+ YRS VACCINE Unknown Completed [facility] SARS-COV-2 COVID-19 MODERNA 0.25ML BOOSTER VACCINE Unknown Completed [facility] SARS-COV-2 COVID 19 ALLY SUCROSE VACCINE , , 0.3 ML (30 MCG), IM PFIZER (TRAN TOP) Unknown Completed [facility] SARS-COV-2 COVID-19 MODERNA 0.25ML BOOSTER VACCINE Unknown Completed [facility] SARS-COV-2 COVID 19 ALLY SUCROSE VACCINE , , 0.3 ML (30 MCG), IM PFIZER (TRAN TOP) Unknown Completed [facility] SARS-COV-2 COVID-19 MODERNA 12+ YRS VACCINE Unknown Completed [facility] SARS-COV-2 COVID-19 MODERNA 0.25ML BOOSTER VACCINE Unknown Completed [facility] SARS-COV-2 COVID 19 ALLY SUCROSE VACCINE , , 0.3 ML (30 MCG), IM PFIZER (TRAN TOP) Unknown Completed [facility] SARS-COV-2 COVID-19 MODERNA 12+ YRS VACCINE Unknown Completed [facility] SARS-COV-2 COVID-19 MODERNA 0.25ML BOOSTER VACCINE Unknown Completed [facility] SARS-COV-2 COVID 19 ALLY SUCROSE VACCINE 12, , 0.3 ML (30 MCG), IM PFIZER (RTAN TOP) Unknown Completed [facility] SARS-COV-2 COVID-19 MODERNA 12+ YRS VACCINE Unknown Completed [facility] SARS-COV-2 COVID-19 MODERNA 12+ YRS VACCINE Unknown Completed [facility] SARS-COV-2 COVID-19 MODERNA 0.25ML BOOSTER VACCINE Unknown Completed [facility] SARS-COV-2 COVID 19 ALLY SUCROSE VACCINE 12, , 0.3 ML (30 MCG), IM PFIZER (TRAN TOP) Unknown Completed [facility] SARS-COV-2 COVID-19 MODERNA 12+ YRS VACCINE Unknown Completed [facility] SARS-COV-2 COVID-19 MODERNA 0.25ML BOOSTER VACCINE Unknown Completed [facility] SARS-COV-2 COVID 19 ALLY SUCROSE VACCINE 12, , 0.3 ML (30 MCG), IM PFIZER (TRAN TOP) Unknown Completed [facility] SARS-COV-2 COVID-19 MODERNA 12+ YRS VACCINE Unknown Completed [facility] SARS-COV-2 COVID-19 MODERNA 0.25ML BOOSTER VACCINE Unknown Completed [facility] SARS-COV-2 COVID 19 ALLY SUCROSE VACCINE , , 0.3 ML (30 MCG), IM PFIZER (TRAN TOP) Unknown Completed [facility] SARS-COV-2 COVID-19 MODERNA 12+ YRS VACCINE Unknown Completed [facility] SARS-COV-2 COVID-19 MODERNA 0.25ML BOOSTER VACCINE Unknown Completed [facility] SARS-COV-2 COVID 19 ALLY SUCROSE VACCINE 12, , 0.3 ML (30 MCG), IM PFIZER (TRAN TOP) Unknown Completed [facility] SARS-COV-2 COVID-19 MODERNA 12+ YRS VACCINE Unknown Completed [facility] SARS-COV-2 COVID-19 MODERNA 0.25ML BOOSTER VACCINE Unknown Completed [facility] SARS-COV-2 COVID 19 ALLY SUCROSE VACCINE 12, , 0.3 ML (30 MCG), IM PFIZER (TRAN TOP) Unknown Completed [facility] SARS-COV-2 COVID-19 MODERNA 12+ YRS VACCINE Unknown Completed [facility] SARS-COV-2 COVID-19 MODERNA 0.25ML BOOSTER VACCINE Unknown Completed [facility] SARS-COV-2 COVID 19 ALLY SUCROSE VACCINE 12, , 0.3 ML (30 MCG), IM PFIZER (TRAN TOP) Unknown Completed [facility] SARS-COV-2 COVID-19 MODERNA 12+ YRS VACCINE Unknown Completed [facility] SARS-COV-2 COVID-19 MODERNA 0.25ML BOOSTER VACCINE Unknown Completed [facility] SARS-COV-2 COVID 19 ALYL SUCROSE VACCINE , , 0.3 ML (30 MCG), IM PFIZER (TRAN TOP) Unknown Completed [facility] SARS-COV-2 COVID-19 MODERNA 12+ YRS VACCINE Unknown Completed [facility] SARS-COV-2 COVID-19 MODERNA 0.25ML BOOSTER VACCINE Unknown Completed [facility] SARS-COV-2 COVID 19 ALLY SUCROSE VACCINE , , 0.3 ML (30 MCG), IM PFIZER (TRAN TOP) Unknown Completed [facility] SARS-COV-2 COVID-19 MODERNA 12+ YRS VACCINE Unknown Completed [facility] SARS-COV-2 COVID-19 MODERNA 0.25ML BOOSTER VACCINE Unknown Completed [facility] SARS-COV-2 COVID 19 ALLY SUCROSE VACCINE , 0.3 ML (30 MCG), IM PFIZER (TRAN TOP) Unknown Completed [facility] SARS-COV-2 COVID-19 MODERNA 12+ YRS VACCINE Unknown Completed [facility] SARS-COV-2 COVID-19 MODERNA 0.25ML BOOSTER VACCINE Unknown Completed [facility] SARS-COV-2 COVID 19 ALLY SUCROSE VACCINE , , 0.3 ML (30 MCG), IM PFIZER (TRAN TOP) Unknown Completed [facility] SARS-COV-2 COVID-19 MODERNA 12+ YRS VACCINE Unknown Completed [facility] SARS-COV-2 COVID-19 MODERNA 0.25ML BOOSTER VACCINE Unknown Completed [facility] SARS-COV-2 COVID 19 ALLY SUCROSE VACCINE , , 0.3 ML (30 MCG), IM PFIZER (TRAN TOP) Unknown Completed [facility] SARS-COV-2 COVID-19 MODERNA 12+ YRS VACCINE Unknown Completed [facility] SARS-COV-2 COVID-19 MODERNA 0.25ML BOOSTER VACCINE Unknown Completed [facility] SARS-COV-2 COVID 19 ALLY SUCROSE VACCINE , , 0.3 ML (30 MCG), IM PFIZER (TRAN TOP) Unknown Completed [facility] SARS-COV-2 COVID-19 MODERNA 12+ YRS VACCINE Unknown Completed [facility] SARS-COV-2 COVID-19 MODERNA 0.25ML BOOSTER VACCINE Unknown Completed [facility] SARS-COV-2 COVID 19 ALLY SUCROSE VACCINE 12+, [id number], 0.3 ML (30 MCG), IM PFIZER (TRAN TOP) Unknown Completed [facility] SARS-COV-2 COVID-19 MODERNA 12+ YRS VACCINE Unknown Completed [facility] SARS-COV-2 COVID-19 MODERNA 0.25ML BOOSTER VACCINE Unknown Completed [facility] SARS-COV-2 COVID 19 ALLY SUCROSE VACCINE 12, , 0.3 ML (30 MCG), IM PFIZER (TRAN TOP) Unknown Completed [facility] SARS-COV-2 COVID-19 MODERNA 12+ YRS VACCINE Unknown Completed [facility] SARS-COV-2 COVID-19 MODERNA 0.25ML BOOSTER VACCINE Unknown Completed [facility] SARS-COV-2 COVID 19 ALLY SUCROSE VACCINE 12, , 0.3 ML (30 MCG), IM PFIZER (TRAN TOP) Unknown Completed [facility] SARS-COV-2 COVID-19 MODERNA 12+ YRS VACCINE Unknown Completed [facility] SARS-COV-2 COVID-19 MODERNA 0.25ML BOOSTER VACCINE Unknown Completed [facility] SARS-COV-2 COVID 19 ALLY SUCROSE VACCINE , , 0.3 ML (30 MCG), IM PFIZER (TRAN TOP) Unknown Completed [facility] SARS-COV-2 COVID-19 MODERNA 12+ YRS VACCINE Unknown Completed [facility] SARS-COV-2 COVID-19 MODERNA 0.25ML BOOSTER VACCINE Unknown Completed [facility] SARS-COV-2 COVID 19 ALLY SUCROSE VACCINE 12, , 0.3 ML (30 MCG), IM PFIZER (TRAN TOP) Unknown Completed [facility] SARS-COV-2 COVID-19 MODERNA 12+ YRS VACCINE Unknown Completed [facility] SARS-COV-2 COVID-19 MODERNA 0.25ML BOOSTER VACCINE Unknown Completed [facility] SARS-COV-2 COVID 19 ALLY SUCROSE VACCINE 12, , 0.3 ML (30 MCG), IM PFIZER (TRAN TOP) Unknown Completed [facility] SARS-COV-2 COVID-19 MODERNA 12+ YRS VACCINE Unknown Completed [facility] SARS-COV-2 COVID-19 MODERNA 0.25ML BOOSTER VACCINE Unknown Completed [facility] SARS-COV-2 COVID 19 ALLY SUCROSE VACCINE , , 0.3 ML (30 MCG), IM PFIZER (TRAN TOP) Unknown Completed [facility] SARS-COV-2 COVID-19 MODERNA 12+ YRS VACCINE Unknown Completed [facility] SARS-COV-2 COVID-19 MODERNA 0.25ML BOOSTER VACCINE Unknown Completed [facility] SARS-COV-2 COVID 19 ALLY SUCROSE VACCINE , , 0.3 ML (30 MCG), IM PFIZER (TRAN TOP) Unknown Completed [facility] SARS-COV-2 COVID-19 MODERNA 12+ YRS VACCINE Unknown Completed [facility] SARS-COV-2 COVID-19 MODERNA 0.25ML BOOSTER VACCINE Unknown Completed [facility] SARS-COV-2 COVID 19 ALLY SUCROSE VACCINE , , 0.3 ML (30 MCG), IM PFIZER (TRAN TOP) Unknown Completed [facility] SARS-COV-2 COVID-19 MODERNA 12+ YRS VACCINE Unknown Completed [facility] SARS-COV-2 COVID-19 MODERNA 0.25ML BOOSTER VACCINE Unknown Completed [facility] SARS-COV-2 COVID 19 ALLY SUCROSE VACCINE , , 0.3 ML (30 MCG), IM PFIZER (TRAN TOP) Unknown Completed [facility] SARS-COV-2 COVID-19 MODERNA 12+ YRS VACCINE Unknown Completed [facility] SARS-COV-2 COVID-19 MODERNA 0.25ML BOOSTER VACCINE Unknown Completed [facility] SARS-COV-2 COVID 19 ALLY SUCROSE VACCINE , , 0.3 ML (30 MCG), IM PFIZER (TRAN TOP) Unknown Completed [facility] Vital Signs Vital Name Observation Time Observation Value Comments S ource Systolic blood pressure 2024-03-31 15:36:00 133 mm[Hg] [facility] Diastolic blood pressure 2024-03-31 15:36:00 88 mm[Hg] [facility] [facility] 2024-03-31 15:33:00 85 /min [facility] Body temperature 2024-03-31 15:33:00 36.78 Jodi [facility] Respiratory rate 2024-03-31 15:33:00 16 /min [facility] Body weight 2024-03-31 15:33:00 117.482 kg [facility] BMI 2024-03-31 15:33:00 41.80 kg/m2 [facility] Oxygen saturation in Arterial blood by Pulse oximetry 2024-03-31 15:33:00 98 /min [facility] Systolic blood pressure 2023-12-04 17:29:00 129 mm[Hg] [facility] Diastolic blood pressure 2023-12-04 17:29:00 93 mm[Hg] [facility] Heart rate 2023-12-04 17:29:00 95 /min [facility] Body temperature 2023-12-04 17:29:00 37.06 Jodi [facility] Respiratory rate 2023-12-04 17:29:00 17 /min [facility] Body weight 2023-12-04 17:29:00 120.067 kg [facility] BMI 2023-12-04 17:29:00 42.72 kg/m2 [facility] Oxygen saturation in Arterial blood by Pulse oximetry 2023-12-04 17:29:00 100 /min [facility] Systolic blood pressure 2023-09-15 18:17:00 123 mm[Hg] [facility] Diastolic blood pressure 2023-09-15 18:17:00 84 mm[Hg] [facility] Heart rate 2023-09-15 18:17:00 84 /min [facility] Body temperature 2023-09-15 18:17:00 37.28 Jodi [facility] Respiratory rate 2023-09-15 18:17:00 18 /min [facility] Body height 2023-09-15 18:17:00 167.6 cm [facility] Body weight 2023-09-15 18:17:00 108.863 kg [facility] BMI 2023-09-15 18:17:00 38.74 kg/m2 [facility] Oxygen saturation in Arterial blood by Pulse oximetry 2023-09-15 18:17:00 100 /min [facility] Systolic blood pressure 2023-09-03 13:15:00 117 mm[Hg] [facility] Diastolic blood pressure 2023-09-03 13:15:00 51 mm[Hg] [facility] Heart rate 2023-09-03 13:15:00 72 /min [facility] Body temperature 2023-09-03 13:15:00 36.89 Jodi [facility] Respiratory rate 2023-09-03 13:15:00 17 /min [facility] Oxygen saturation in Arterial blood by Pulse oximetry 2023-09-03 13:15:00 98 /min [facility] Systolic blood pressure 2023-09-02 19:33:00 122 mm[Hg] [facility] Diastolic blood pressure 2023-09-02 19:33:00 92 mm[Hg] [facility] Heart rate 2023-09-02 19:33:00 81 /min [facility] Body temperature 2023-09-02 19:33:00 36.72 Jodi [facility] Respiratory rate 2023-09-02 19:33:00 21 /min [facility] Oxygen saturation in Arterial blood by Pulse oximetry 2023-09-02 19:33:00 100 /min [facility] Systolic blood pressure 2023-09-01 15:11:00 126 mm[Hg] [facility] Diastolic blood pressure 2023-09-01 15:11:00 89 mm[Hg] [facility] Heart rate 2023-09-01 15:11:00 98 /min [facility] Body temperature 2023-09-01 15:11:00 36.39 Jodi [facility] Body height 2023-09-01 15:11:00 152.4 cm [facility] Body weight 2023-09-01 15:11:00 119.75 kg [facility] BMI 2023-09-01 15:11:00 51.56 kg/m2 [facility] Oxygen saturation in Arterial blood by Pulse oximetry 2023-09-01 15:11:00 98 /min [facility] Systolic blood pressure 2023-08-26 19:07:00 140 mm[Hg] [facility] Diastolic blood pressure 2023-08-26 19:07:00 88 mm[Hg] [facility] Heart rate 2023-08-26 19:07:00 86 /min [facility] Body height 2023-08-26 19:07:00 165.1 cm [facility] Body weight 2023-08-26 19:07:00 120.385 kg [facility] BMI 2023-08-26 19:07:00 44.16 kg/m2 [facility] Oxygen saturation in Arterial blood by Pulse oximetry 2023-08-26 19:07:00 99 /min [facility] Systolic blood pressure 2023-08-19 21:01:00 132 mm[Hg] [facility] Diastolic blood pressure 2023-08-19 21:01:00 85 mm[Hg] [facility] Heart rate 2023-08-19 21:01:00 90 /min [facility] Respiratory rate 2023-08-19 21:01:00 18 /min [facility] Body height 2023-08-19 21:01:00 166.4 cm [facility] Body weight 2023-08-19 21:01:00 120.657 kg [facility] BMI 2023-08-19 21:01:00 43.59 kg/m2 [facility] Oxygen saturation in Arterial blood by Pulse oximetry 2023-08-19 21:01:00 97 /min [facility] Systolic blood pressure 2023-08-13 20:58:00 131 mm[Hg] [facility] Diastolic blood pressure 2023-08-13 20:58:00 75 mm[Hg] [facility] Heart rate 2023-08-13 20:58:00 81 /min [facility] Body temperature 2023-08-13 20:58:00 36.94 Jodi [facility] Respiratory rate 2023-08-13 20:58:00 18 /min [facility] Body height 2023-08-13 20:58:00 165.1 cm [facility] Body weight 2023-08-13 20:58:00 122.018 kg [facility] BMI 2023-08-13 20:58:00 44.76 kg/m2 [facility] Systolic blood pressure 2023-07-30 21:35:00 110 mm[Hg] [facility] Diastolic blood pressure 2023-07-30 21:35:00 78 mm[Hg] [facility] Heart rate 2023-07-30 21:35:00 91 /min [facility] Body temperature 2023-07-30 21:35:00 37 Jodi [facility] Body height 2023-07-30 21:35:00 165.1 cm [facility] Body weight 2023-07-30 21:35:00 119.75 kg [facility] BMI 2023-07-30 21:35:00 43.93 kg/m2 [facility] Systolic blood pressure 2023-07-23 14:15:00 135 mm[Hg] [facility] Diastolic blood pressure 2023-07-23 14:15:00 86 mm[Hg] [facility] Heart rate 2023-07-23 14:15:00 112 /min [facility] Body temperature 2023-07-23 14:15:00 36.22 Jodi [facility] Body height 2023-07-23 14:15:00 165.1 cm [facility] Body weight 2023-07-23 14:15:00 120.112 kg [facility] BMI 2023-07-23 14:15:00 44.07 kg/m2 [facility] Systolic blood pressure 2023-07-09 21:45:00 114 mm[Hg] [facility] Diastolic blood pressure 2023-07-09 21:45:00 79 mm[Hg] [facility] Heart rate 2023-07-09 21:45:00 113 /min [facility] Body temperature 2023-07-09 21:45:00 37.11 Jodi [facility] Respiratory rate 2023-07-09 21:45:00 18 /min [facility] Body height 2023-07-09 21:45:00 165.1 cm [facility] Body weight 2023-07-09 21:45:00 119.886 kg [facility] BMI 2023-07-09 21:45:00 43.98 kg/m2 [facility] Oxygen saturation in Arterial blood by Pulse oximetry 2023-07-09 21:45:00 99 /min [facility] Systolic blood pressure 2023-07-01 18:16:00 129 mm[Hg] [facility] Diastolic blood pressure 2023-07-01 18:16:00 83 mm[Hg] [facility] Heart rate 2023-07-01 18:16:00 86 /min [facility] Body temperature 2023-07-01 18:16:00 36.11 Jodi [facility] Body height 2023-07-01 18:16:00 167.6 cm [facility] Body weight 2023-07-01 18:16:00 117.935 kg [facility] BMI 2023-07-01 18:16:00 41.97 kg/m2 [facility] Oxygen saturation in Arterial blood by Pulse oximetry 2023-07-01 18:16:00 98 /min [facility] Systolic blood pressure 2023-06-29 08:50:00 120 mm[Hg] [facility] Diastolic blood pressure 2023-06-29 08:50:00 83 mm[Hg] [facility] Heart rate 2023-06-29 08:50:00 79 /min [facility] Body temperature 2023-06-29 08:50:00 36.56 Jodi [facility] Respiratory rate 2023-06-29 08:50:00 16 /min [facility] Oxygen saturation in Arterial blood by Pulse oximetry 2023-06-29 08:50:00 100 /min [facility] Body height 2023-06-29 04:06:00 167.6 cm [facility] Body weight 2023-06-29 04:06:00 99.791 kg [facility] BMI 2023-06-29 04:06:00 35.51 kg/m2 [facility] Systolic blood pressure 2023-06-11 19:00:00 112 mm[Hg] manual [facility] Diastolic blood pressure 2023-06-11 19:00:00 40 mm[Hg] manual [facility] Heart rate 2023-06-11 19:00:00 95 /min [facility] Respiratory rate 2023-06-11 19:00:00 20 /min [facility] Body weight 2023-06-11 19:00:00 117.391 kg [facility] BMI 2023-06-11 19:00:00 41.77 kg/m2 [facility] Oxygen saturation in Arterial blood by Pulse oximetry 2023-06-11 19:00:00 100 /min arrived on RA; 6MW on RA [facility] Systolic blood pressure 2023-05-22 20:55:00 145 mm[Hg] [facility] Diastolic blood pressure 2023-05-22 20:55:00 84 mm[Hg] [facility] Heart rate 2023-05-22 20:54:00 100 /min [facility] Body temperature 2023-05-22 20:54:00 36.78 Jodi [facility] Respiratory rate 2023-05-22 20:54:00 17 /min [facility] Body height 2023-05-22 20:54:00 167.6 cm [facility] Body weight 2023-05-22 20:54:00 118.343 kg [facility] BMI 2023-05-22 20:54:00 42.11 kg/m2 [facility] Oxygen saturation in Arterial blood by Pulse oximetry 2023-05-22 20:54:00 98 /min [facility] Systolic blood pressure 2023-05-13 16:03:00 123 mm[Hg] [facility] Diastolic blood pressure 2023-05-13 16:03:00 85 mm[Hg] [facility] Heart rate 2023-05-13 16:03:00 84 /min [facility] Respiratory rate 2023-05-13 16:03:00 19 /min [facility] Body height 2023-05-13 16:03:00 167.6 cm [facility] Body weight 2023-05-13 16:03:00 115.758 kg [facility] BMI 2023-05-13 16:03:00 41.19 kg/m2 [facility] Oxygen saturation in Arterial blood by Pulse oximetry 2023-05-13 16:03:00 98 /min [facility] Systolic blood pressure 2023-05-13 14:12:00 130 mm[Hg] [facility] Diastolic blood pressure 2023-05-13 14:12:00 85 mm[Hg] [facility] Heart rate 2023-05-13 14:12:00 118 /min [facility] Body temperature 2023-05-13 14:10:00 37 Jodi [facility] Respiratory rate 2023-05-13 14:10:00 22 /min [facility] Body height 2023-05-13 14:10:00 167.6 cm [facility] Body weight 2023-05-13 14:10:00 115.803 kg [facility] BMI 2023-05-13 14:10:00 41.21 kg/m2 [facility] Oxygen saturation in Arterial blood by Pulse oximetry 2023-05-13 14:10:00 96 /min [facility] Systolic blood pressure 2023-04-29 20:37:00 121 mm[Hg] [facility] Diastolic blood pressure 2023-04-29 20:37:00 87 mm[Hg] [facility] Heart rate 2023-04-29 20:37:00 108 /min [facility] Respiratory rate 2023-04-29 20:37:00 18 /min [facility] Body height 2023-04-29 20:37:00 167.6 cm [facility] Body weight 2023-04-29 20:37:00 114.306 kg [facility] BMI 2023-04-29 20:37:00 40.67 kg/m2 [facility] Systolic blood pressure 2023-04-03 20:45:00 124 mm[Hg] [facility] Diastolic blood pressure 2023-04-03 20:45:00 88 mm[Hg] [facility] Heart rate 2023-04-03 20:45:00 99 /min [facility] Body temperature 2023-04-03 20:45:00 37.28 Jodi [facility] Respiratory rate 2023-04-03 20:45:00 15 /min [facility] Body height 2023-04-03 20:45:00 167.6 cm [facility] Body weight 2023-04-03 20:45:00 109.09 kg [facility] BMI 2023-04-03 20:45:00 38.82 kg/m2 [facility] Oxygen saturation in Arterial blood by Pulse oximetry 2023-04-03 20:45:00 98 /min [facility] Systolic blood pressure 2023-04-01 18:33:00 130 mm[Hg] [facility] Diastolic blood pressure 2023-04-01 18:33:00 80 mm[Hg] [facility] Heart rate 2023-04-01 18:33:00 87 /min [facility] Body temperature 2023-04-01 18:33:00 36.67 Jodi [facility] Respiratory rate 2023-04-01 18:33:00 20 /min [facility] Body height 2023-04-01 18:33:00 167.6 cm [facility] Body weight 2023-04-01 18:33:00 108.455 kg [facility] BMI 2023-04-01 18:33:00 38.59 kg/m2 [facility] Oxygen saturation in Arterial blood by Pulse oximetry 2023-04-01 18:33:00 99 /min [facility] Systolic blood pressure 2023-04-01 18:33:00 130 mm[Hg] [facility] Diastolic blood pressure 2023-04-01 18:33:00 80 mm[Hg] [facility] Heart rate 2023-04-01 18:33:00 87 /min [facility] Body temperature 2023-04-01 18:33:00 36.67 Jodi [facility] Respiratory rate 2023-04-01 18:33:00 20 /min [facility] Body height 2023-04-01 18:33:00 167.6 cm [facility] Body weight 2023-04-01 18:33:00 108.455 kg [facility] BMI 2023-04-01 18:33:00 38.59 kg/m2 [facility] Oxygen saturation in Arterial blood by Pulse oximetry 2023-04-01 18:33:00 99 /min [facility] Systolic blood pressure 2023-03-30 18:11:00 118 mm[Hg] [facility] Diastolic blood pressure 2023-03-30 18:11:00 83 mm[Hg] [facility] Heart rate 2023-03-30 18:11:00 94 /min [facility] Respiratory rate 2023-03-30 18:11:00 18 /min [facility] Body weight 2023-03-30 18:11:00 108.773 kg [facility] BMI 2023-03-30 18:11:00 39.30 kg/m2 [facility] Systolic blood pressure 2023-03-20 21:26:00 115 mm[Hg] [facility] Diastolic blood pressure 2023-03-20 21:26:00 78 mm[Hg] [facility] Heart rate 2023-03-20 21:26:00 86 /min [facility] Body temperature 2023-03-20 21:26:00 37.17 Jodi [facility] Respiratory rate 2023-03-20 21:26:00 20 /min [facility] Body weight 2023-03-20 21:26:00 109.861 kg [facility] BMI 2023-03-20 21:26:00 39.69 kg/m2 [facility] Oxygen saturation in Arterial blood by Pulse oximetry 2023-03-20 21:26:00 96 /min [facility] Systolic blood pressure 2023-02-02 20:17:00 134 mm[Hg] [facility] Diastolic blood pressure 2023-02-02 20:17:00 85 mm[Hg] [facility] Heart rate 2023-02-02 20:17:00 73 /min [facility] Body temperature 2023-02-02 20:17:00 36.89 Jodi [facility] Respiratory rate 2023-02-02 20:17:00 18 /min [facility] Body height 2023-02-02 20:17:00 166.4 cm [facility] Body weight 2023-02-02 20:17:00 109.77 kg [facility] BMI 2023-02-02 20:17:00 39.66 kg/m2 [facility] Systolic blood pressure 2022-08-05 00:16:00 126 mm[Hg] [facility] Diastolic blood pressure 2022-08-05 00:16:00 85 mm[Hg] [facility] Heart rate 2022-08-05 00:16:00 98 /min [facility] Body temperature 2022-08-05 00:16:00 37.28 Jodi [facility] Respiratory rate 2022-08-05 00:16:00 20 /min [facility] Body height 2022-08-05 00:16:00 167.6 cm [facility] Body weight 2022-08-05 00:16:00 99.791 kg [facility] BMI 2022-08-05 00:16:00 35.51 kg/m2 [facility] Oxygen saturation in Arterial blood by Pulse oximetry 2022-08-05 00:16:00 100 /min [facility] Systolic blood pressure 2022-05-12 14:38:00 153 mm[Hg] [facility] Diastolic blood pressure 2022-05-12 14:38:00 102 mm[Hg] [facility] Heart rate 2022-05-12 14:38:00 79 /min [facility] Body temperature 2022-05-12 14:38:00 36.17 Jodi [facility] Respiratory rate 2022-05-12 14:38:00 18 /min [facility] Body weight 2022-05-12 14:38:00 97.523 kg [facility] BMI 2022-05-12 14:38:00 34.70 kg/m2 [facility] Oxygen saturation in Arterial blood by Pulse oximetry 2022-05-12 14:38:00 100 /min [facility] Systolic blood pressure 2022-03-24 14:09:00 145 mm[Hg] [facility] Diastolic blood pressure 2022-03-24 14:09:00 108 mm[Hg] [facility] Heart rate 2022-03-24 14:09:00 90 /min [facility] Body temperature 2022-03-24 14:09:00 37.28 Jodi [facility] Respiratory rate 2022-03-24 14:09:00 14 /min [facility] Body height 2022-03-24 14:09:00 167.6 cm [facility] Body weight 2022-03-24 14:09:00 95.255 kg [facility] BMI 2022-03-24 14:09:00 33.89 kg/m2 [facility] Oxygen saturation in Arterial blood by Pulse oximetry 2022-03-24 14:09:00 100 /min [facility] Systolic blood pressure 2022-02-18 02:00:00 147 mm[Hg] [facility] Diastolic blood pressure 2022-02-18 02:00:00 95 mm[Hg] [facility] Heart rate 2022-02-18 02:00:00 78 /min [facility] Respiratory rate 2022-02-18 02:00:00 18 /min [facility] Oxygen saturation in Arterial blood by Pulse oximetry 2022-02-18 02:00:00 99 /min [facility] Body temperature 2022-02-17 23:30:00 37.06 Jodi [facility] Body weight 2022-02-17 23:30:00 98.158 kg [facility] BMI 2022-02-17 23:30:00 34.93 kg/m2 [facility] Systolic blood pressure 2022-02-17 23:10:00 146 mm[Hg] [facility] Diastolic blood pressure 2022-02-17 23:10:00 101 mm[Hg] [facility] Heart rate 2022-02-17 23:10:00 67 /min [facility] Body temperature 2022-02-17 23:10:00 37.56 Jodi [facility] Respiratory rate 2022-02-17 23:10:00 18 /min [facility] Body height 2022-02-17 23:10:00 167.6 cm [facility] Body weight 2022-02-17 23:10:00 95.255 kg [facility] BMI 2022-02-17 23:10:00 33.89 kg/m2 [facility] Oxygen saturation in Arterial blood by Pulse oximetry 2022-02-17 23:10:00 100 /min [facility] Systolic blood pressure 2022-01-26 18:37:00 120 mm[Hg] [facility] Diastolic blood pressure 2022-01-26 18:37:00 77 mm[Hg] [facility] Heart rate 2022-01-26 18:36:00 88 /min [facility] Body temperature 2022-01-26 18:36:00 36.67 Jodi [facility] Respiratory rate 2022-01-26 18:36:00 18 /min [facility] Body height 2022-01-26 18:36:00 165.1 cm [facility] Body weight 2022-01-26 18:36:00 96.616 kg [facility] BMI 2022-01-26 18:36:00 35.45 kg/m2 [facility] Oxygen saturation in Arterial blood by Pulse oximetry 2022-01-26 18:36:00 100 /min [facility] Systolic blood pressure 2021-11-24 09:19:00 125 mm[Hg] [facility] Diastolic blood pressure 2021-11-24 09:19:00 81 mm[Hg] [facility] Heart rate 2021-11-24 09:19:00 67 /min [facility] Respiratory rate 2021-11-24 09:19:00 19 /min [facility] Oxygen saturation in Arterial blood by Pulse oximetry 2021-11-24 09:19:00 99 /min [facility] Body temperature 2021-11-24 03:00:00 36.78 Jodi [facility] Body height 2021-11-24 03:00:00 165.1 cm [facility] Body weight 2021-11-24 03:00:00 97.523 kg [facility] BMI 2021-11-24 03:00:00 35.78 kg/m2 [facility] Systolic blood pressure 2021-11-21 21:13:00 127 mm[Hg] [facility] Diastolic blood pressure 2021-11-21 21:13:00 91 mm[Hg] [facility] Heart rate 2021-11-21 20:50:00 81 /min [facility] Body temperature 2021-11-21 20:50:00 37 Jodi [facility] Respiratory rate 2021-11-21 20:50:00 18 /min [facility] Body height 2021-11-21 20:50:00 165.1 cm [facility] Body weight 2021-11-21 20:50:00 97.523 kg [facility] BMI 2021-11-21 20:50:00 35.78 kg/m2 [facility] Procedures Procedure Date / Time Performed Performing Clinician Source POCT MOLECULAR STREP 2024-03-31 15:37:00 Unknown, Wily echevarria [facility] POCT SARS-COV-2 ANTIGEN (BINAX NOW) 2024-03-31 00:00:00 Sergo Viera [facility] POCT SARS-COV-2 ANTIGEN (BINAX NOW) 2023-12-04 17:31:00 Malena Garcia [facility] POCT MOLECULAR STREP 2023-12-04 17:24:00 [facility] (BINAX NOW) 2023-09-15 18:27:00 Malena Garcia [facility] BASIC METABOLIC PANEL (NA, K, CL, CO2, GLUCOSE, BUN, CREATININE, CA) 2023-09-03 10:22:00 Jarrod Mercado [facility] CBC WITH DIFF 2023-09-03 10:22:00 Jarrod Mercado [facility] BASIC METABOLIC PANEL (NA, K, CL, CO2, GLUCOSE, BUN, CREATININE, CA) 2023-09-03 [facility]23-09-03 10:22:00 Jarrod Mercado [facility] LAPAROSCOPIC TOTAL ABDOMINAL HYSTERECTOMY 2023-09-02 21:56:00 Jarrod Mercado [facility] CYSTOSCOPY 2023-09-02 21:56:00 Jar[facility]ado [facility] SALPINGECTOMY 2023-09-02 21:56:00 Jarrod Mercado [facility] LAPAROSCOPIC TOTAL ABDOMINAL HYSTERECTOMY 2023-09-02 21:56:00 Jarrod Mercado [facility] CYSTOSCOPY 2023-09-02 21:56:00 Lucio Jarrod [facility] SALPINGECTOMY 2023-09-02 21:56:00 MercadoJarrod [facility] DAY SURGERY - ADC 2023-09-02 06:01:00 Doctor Shirley ssigned, [place] [facility] TOTAL BETA HCG ASSAY 2023-09-01 14:50:00 LucioIwonablayne Duncan [facility] INSURANCE CORRESPONDENCE 2023-08-25 06:01:00 Doc tor Unassigned, [place] [facility] INSURANCE CORRESPONDENCE 2023-08-21 06:01:00 Doc tor Unassigned, [place] [facility] CBC WITH DIFF 2023-08-19 23:12:00 Cheikh Boyle [facility] SARS-COV-2 COVID 19 ALLY SUCROSE VACCINE 12+, , 0.3 ML (30 MCG), IM PFIZER (TRAN TOP) 2023-08-19 22:08:51 Cheikh Boyle [facility] DSU PRE-OP 2023-08-14 06:01:00 Doctor Unass igned, [place] [facility] US PELVIS COMPLETE WITH TRANSVAGINAL 2023-07-30 16:55:00 Jarrod Mercado [facility] POCT TEST 2023-07-30 00:00:00 Jarrod Mercado [facility] POCT TEST 2023-07-23 00:00:00 Jarrod Mercado [facility] POCT MOLECULAR STREP 2023-07-09 21:56:00 Unknown, Wily echevarria [facility] CBC WITH DIFF 2023-07-01 19:02:00 Taiwo Wharton [facility] PROTHROMBIN TIME / INR 2023-07-01 19:02:00 Silverio Wharton [facility] CT ABDOMEN PELVIS W CONTRAST 2023-06-29 07:44:14 Arianna Whitmore [facility] URINALYSIS 2023-06-29 05:56:00 Arianna Whitmore [facility] LIPASE 2023-06-29 05:51:00 Arianna Whitmore [facility] TROPONIN I 2023-06-29 05:51:00 Arianna Whitmore [facility] COMP. METABOLIC PANEL (81275) 2023-06-29 05:51:00 Arianna Whitmore [facility] CBC WITH DIFF 2023-06-29 05:51:00 Arianna Whitmore [facility] D-DIMER 2023-06-29 05:51:00 Arianna Whitmore [facility] RAPID INFLUENZA A/B 2023-06-29 05:51:00 Arianna Whitmore [facility] COVID-19 (ID NOW RAPID TESTING) 2023-06-29 05:51:00 Arianna Whitmore [facility] ASSIGNMENT OF BENEFITS 2023-06-29 04:31:47 Docto r Unassigned, [place] [facility] CONSENT/REFUSAL FOR DIAGNOSIS AND TREATMENT 2023-06-29 03:52:07 Doctor Unassigned, [place] [facility] US LIVER 2023-06-15 15:16:11 Cheikh Boyle [facility] CONSENT/REFUSAL FOR DIAGNOSIS AND TREATMENT 2023-06-11 05:01:00 Doctor Unassigned, [place] [facility] NO SHOW OR MISSED APPOINTMENT POLICY ACKNOWLEDGEMENT 2023-06-11 05:01:00 Doctor Unassigned, [place] [facility] POCT MOLECULAR FLU 2023-05-22 21:09:00 Unknown, Attend ing [facility] POCT SARS-COV-2 ANTIGEN (BINAX NOW) 2023-05-22 21:01:00 Sera Worthy [facility] INSURANCE CORRESPONDENCE 2023-05-18 05:01:00 Doc tor Unassigned, [place] [facility] TRANSTHORACIC ECHO (TTE) COMPLETE 2023-05-15 15:04:27 Nicanor Hall [facility] INSURANCE CORRESPONDENCE 2023-05-13 05:01:00 Doc tor Unassigned, [place] [facility] EXTERNAL PROVIDER RECORDS 2023-04-14 05:01:00 Do ctor Unassigned, [place] [facility] POCT SARS-COV-2 ANTIGEN (BINAX NOW) 2023-04-03 20:55:00 Sera Worthy [facility] POCT SARS-COV-2 ANTIGEN (BINAX NOW) 2023-03-20 21:30:00 Sera Worthy [facility] ASSIGNMENT OF BENEFITS 2023-02-02 20:09:30 Docto r Unassigned, [place] [facility] POCT TEST 2023-02-02 00:00:00 Ernesto Smith [facility] XR HAND 3+ VW LEFT 2022-08-05 00:55:28 Nii Abraham [facility] CONSENT/REFUSAL FOR DIAGNOSIS AND TREATMENT 2022-08-04 23:55:33 Doctor Unassigned, [place] [facility] XR FINGERS 2 VW LEFT 2022-05-12 15:57:11 Ciarra Frank [facility] XR WRIST 3+ VW LEFT 2022-05-12 15:57:11 Ciarra Frank [facility] CONSENT/REFUSAL FOR DIAGNOSIS AND TREATMENT 2022-05-12 14:32:26 Doctor Unassigned, [place] [facility] CONSENT/REFUSAL FOR DIAGNOSIS AND TREATMENT 2022-03-24 14:06:23 Doctor Unassigned, [place] [facility] US PELVIS COMPLETE NON-OB 2022-02-18 01:07:39 Natalie Almendarez [facility] CT ABDOMEN PELVIS W CONTRAST 2022-02-18 00:35:22 Natalie Almendarez [facility] POCT TEST 2022-02-18 00:22:00 Natalie Almendarez [facility] TEST, SERUM 2022-02-18 00:21:00 Terry Almendarez [facility] COMP. METABOLIC PANEL ([id number]) 2022-02-18 00:21:00 Natalie Almendarez [facility] CBC WITH DIFF 2022-02-18 00:21:00 Natalie Almendarez [facility] URINALYSIS 2022-02-18 00:21:00 Natalie Almendarez [facility] CONSENT/REFUSAL FOR DIAGNOSIS AND TREATMENT 2022-02-17 23:21:20 Doctor Unassigned, [place] [facility] SARS-COV-2 COVID-19 VACCINE BOOSTER,0.25ML,IM (MODERNA) 2022-01-23 19:36:51 Doctor Unassigned, [place] [facility] US OVARY TORSION 2021-11-24 08:01:43 Arianna Whitmore [facility] CT ABDOMEN PELVIS W CONTRAST 2021-11-24 04:24:09 Arianna Whitmore [facility] POCT TEST 2021-11-24 03:18:00 Arianna Whitmore [facility] LIPASE 2021-11-24 03:17:00 Arianna Whitmore [facility] COMP. METABOLIC PANEL ([id number]) 2021-11-24 03:17:00 Arianna Whitmore [facility] CBC WITH DIFF 2021-11-24 03:17:00 Arianna Whitmore [facility] URINALYSIS 2021-11-24 03:17:00 Arianna Whitmore [facility] NOTICE OF PRIVACY PRACTICES 2021-11-24 02:50:34 Doctor Unassigned, [place] [facility] CONSENT/REFUSAL FOR DIAGNOSIS AND TREATMENT 2021-11-24 02:50:13 Doctor Unassigned, [place] [facility] Encounters Start Date/Time End Date/Time Encounter Type Admission Type Attending Clinicians Care Facility Care Department Encounter ID Source 2021-06-10 21:56:33 Emergency [facility] [id number] General acute hospital 2021-06-10 11:43:59 Emergency [facility] [id number] General acute hospital 2021-06-10 11:18:46 Emergency [facility] [id number] General acute hospital 2021-06-10 09:58:36 Emergency [facility] [id number] General acute hospital 2021-06-09 00:40:14 Emergency [facility] [id number] General acute hospital 2021-06-08 04:28:04 Emergency [facility] [id number] General acute hospital 2021-06-07 16:30:58 Emergency [facility] [id number] General acute hospital 2021-06-06 17:46:29 Emergency [facility] [id number] General acute hospital 2020-04-08 00:00:00 2024-12-01 21:55:07 Refill Doctor Unassigned, [place] Doctor Unassigned, [place] [facility] ..840.114 350.1.13.10 4.2.7.2.686 [id number] General acute hospital 2024-11-02 14:00:00 2024-11-02 14:00:00 Outpatient R JARROD MERCADO VIEN [facility] [id number] General acute hospital 2024-04-06 13:40:00 2024-04-06 13:40:00 Outpatient R RU ACEVEDO [facility] [id number] General acute hospital 2024-03-31 10:20:00 2024-03-31 10:40:00 Urgent Care Sergo Viera Unknown, Attending [facility] 1..840.114 350.1.13.10 4.2.7.2.686 [id number] General acute hospital 2024-03-31 10:20:00 2024-03-31 10:20:00 Outpatient R SERGO VIERA [facility] [id number] General acute hospital 2024-03-09 00:00:00 2024-03-10 09:58:48 Refill Cheikh Boyle [facility] 1..840.114 350.1.13.10 4.2.7.2.686 [id number] General acute hospital 2024-03-09 00:00:00 2024-03-09 19:55:42 Frannie Boston [facility] PAM MENENDEZ [facility] 1.2.840.114 350.1.13.10 4.2.7.2.686 [id number] General acute hospital 2024-03-03 10:30:00 2024-03-03 10:30:00 Outpatient JARROD FLORES VIEN [facility] [id number] General acute hospital 2024-02-08 10:30:00 2024-02-08 10:30:00 Outpatient TAIWO LOU [facility] [id number] General acute hospital 2023-12-28 00:00:00 2024-01-30 18:21:31 Patient Secure Msg Doctor Unassigned, [place] [facility] 1.2.840.114 350.1.13.10 4.2.7.2.686 [id number] General acute hospital 2023-11-28 00:00:00 2024-01-02 18:09:38 Patient Secure g Jan Estrada [facility] 1.2.840.114 350.1.13.10 4.2.7.2.686 [id number] General acute hospital 2023-12-22 00:00:00 2023-12-22 09:17:07 Telephone Promise Mullen [facility] 1.2.840.114 350.1.13.10 4.2.7.2.686 [id number] General acute hospital 2023-12-10 13:00:00 2023-12-10 13:00:00 Outpatient CHEIKH LIZAMA [facility] [id number] General acute hospital 2023-12-04 12:20:00 2023-12-04 13:14:26 Outpatient R SERGO VIERA [facility] [id number] General acute hospital 2023-12-04 12:20:00 2023-12-04 12:40:00 Urgent Care Sergo Viera Unknown, Attending [facility] 1..840.114 350.1.13.10 4.2.7.2.686 [id number] General acute hospital 2023-10-19 00:00:00 2023-10-19 00:00:00 Telephone Jarrod Mercado [facility] 1..840.114 350.1.13.10 4.2.7.2.686 [id number] 134 [id number] General acute hospital 2023-09-30 10:45:00 2023-09-30 10:45:00 Outpatient R JARROD MERCADO [facility] [id number] General acute hospital 2023-09-24 00:00:00 2023-09-24 00:00:00 Telephone Promise Mullen [facility] ..840.114 350.1.13.10 4.2.7.2.686 [id number] General acute hospital 2023-09-17 13:15:00 2023-09-17 13:30:00 Office Visit Jarrod Mercado [facility] 1..840.114 350.1.13.10 4.2.7.2.686 [id number] General acute hospital 2023-09-17 13:15:00 2023-09-17 13:15:00 Outpatient R JARROD MERCADO [facility] [id number] General acute hospital 2023-09-16 00:00:00 2023-09-16 00:00:00 Telephone Malena Garcia [facility] 1..840.114 350.1.13.10 4.2.7.2.686 [id number] General acute hospital 2023-09-15 12:00:00 2023-09-15 13:07:33 Outpatient R MALENA GARCIA [facility] [id number] General acute hospital 2023-09-15 12:00:00 2023-09-15 12:20:00 Urgent Care Jose Malena Unknown, Attending [facility] 1.2.840.114 350.1.13.10 4.2.7.2.686 [id number] General acute hospital 2023-09-08 00:00:00 2023-09-08 00:00:00 Case Management Jarrod Mercado [facility] 1.2.840.114 350.1.13.10 4.2.7.2.686 [id number] General acute hospital 2023-09-07 00:00:00 2023-09-07 00:00:00 Patient Secure Msg Doctor Unassigned, [place] [facility] 1.2.840.114 350.1.13.10 4.2.7.2.686 [id number] General acute hospital 2023-09-04 00:00:00 2023-09-04 00:00:00 Telephone Jarrod Mercado [facility] 1.2.840.114 350.1.13.10 4.2.7.2.686 [id number] General acute hospital 2023-09-02 13:20:00 2023-09-03 08:40:00 Outpatient R JARROD MERCADO [facility] [employer] [id number] General acute hospital 2023-09-02 13:20:00 2023-09-03 08:40:00 Hospital Encounter Jarrod Mercado [facility] 1.2840.114 350.1.13.10 4.2.7.2.686 [id number] General acute hospital 2023-09-03 00:00:00 2023-09-03 00:00:00 Telephone Jarrod Mercado [facility] 1.20.114 350.1.13.10 4.2.7.2.686 [id number] 134 [id number] General acute hospital 2023-09-02 12:41:00 2023-09-02 17:07:00 Surgery Jarrod Mercado [facility] 1.20.114 350.1.13.10 4.2.7.2.686 [id number] General acute hospital 2023-09-02 00:00:00 2023-09-02 00:00:00 Orders Only Doctor Unassigned, [place] [facility] 1.20.114 350.1.13.10 4.2.7.2.686 [id number] General acute hospital 2023-09-01 13:00:00 2023-09-01 13:20:00 Office Visit Troy Khan [facility] 1.2.114 350.1.13.10 4.2.7.2.686 [id number] General acute hospital 2023-09-01 13:00:00 2023-09-01 13:00:00 Outpatient R [facility] [id number] General acute hospital 2023-09-01 09:15:00 2023-09-01 09:30:00 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, 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 Main Jarrod Mercado [facility] 1.20.114 350.1.13.10 4.2.7.2.686 [id number] General acute hospital 2023-09-01 00:00:00 2023-09-01 00:00:00 Telephone Jarrod Mercado [facility] 1.2840.114 350.1.13.10 4.2.7.2.686 [id number] General acute hospital 2023-08-28 00:00:00 2023-08-28 00:00:00 Telephone Promise Mullen [facility] 1.2840.114 350.1.13.10 4.2.7.2.686 [id number] General acute hospital 2023-08-26 13:00:00 2023-08-26 13:15:40 [id number] General acute hospital 2023-08-26 13:00:00 2023-08-26 13:15:40 Office Visit Ambrocio Hallearlene [facility] 1.20.114 350.1.13.10 4.2.7.2.686 [id number] General acute hospital 2023-08-25 00:00:00 2023-08-25 00:00:00 Orders Only Doctor Unassigned, [place] [facility] 1.2840.114 350.1.13.10 4.2.7.2.686 [id number] General acute hospital 2023-08-21 00:00:00 2023-08-21 00:00:00 Orders Only Doctor Unassigned, [place] [facility] 1.2840.114 350.1.13.10 4.2.7.2.686 [id number] General acute hospital 2023-08-20 00:00:00 2023-08-20 00:00:00 Telephone Cheikh Boyle [facility] 1.20.114 350.1.13.10 4.2.7.2.686 [id number] General acute hospital 2023-08-19 16:30:00 2023-08-19 16:45:00 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, Adc Lab Main Cheikh Boy[facility] 1.2.840.114 350.1.13.10 4.2.7.2.686 [id number] General acute hospital 2023-08-19 15:00:00 2023-08-19 16:36:17 Outpatient R CHEIKH BOYLE [facility] [id number] General acute hospital 2023-08-19 15:00:00 2023-08-19 16:36:17 Office Visit Cheikh Boyle [facility] 1.2.840.114 350.1.13.10 4.2.7.2.686 [id number] General acute hospital 2023-08-14 00:00:00 2023-08-14 00:00:00 Orders Only Doctor Unassigned, [place] [facility] 1.284.114 350.1.13.10 4.2.7.2.686 [id number] General acute hospital 2023-08-13 14:00:00 2023-08-13 15:13:42 Outpatient R JARROD MERCADO [facility] [id number] General acute hospital 2023-08-13 14:00:00 2023-08-13 15:13:42 Office Visit Jarrod Mercado [facility] 1.2.840.114 350.1.13.10 4.2.7.2.686 [id number] General acute hospital 2023-08-12 15:30:00 2023-08-12 15:30:00 Outpatient R TAIWO WHARTON [facility] [id number] General acute hospital 2023-08-12 00:00:00 2023-08-12 00:00:00 Telephone Promise Mullen [facility] [place] [facility] 1.2.840.114 350.1.13.10 4.2.7.2.686 [id number] General acute hospital 2023-07-30 10:24:56 2023-07-30 23:59:00 Hospital Encounter Jarrod Mercado [facility] 1.2.840.114 350.1.13.10 4.2.7.2.686 [id number] General acute hospital 2023-07-30 15:00:00 2023-07-30 15:36:01 Outpatient R IWONA MERCADOEN [facility] [id number] General acute hospital 2023-07-30 15:00:00 2023-07-30 15:36:01 Office Visit Jarrod Mercado [place] [facility] 1.2.840.114 350.1.13.10 4.2.7.2.686 [id number] General acute hospital 2023-07-24 00:00:00 2023-07-24 00:00:00 Case Management Akiko, [facility] 1.2.840.114 350.1.13.10 4.2.7.2.686 [id number] General acute hospital 2023-07-24 00:00:00 2023-07-24 00:00:00 Telephone Akiko [facility] 1.2.840.114 350.1.13.10 4.2.7.2.686 [id number] General acute hospital 2023-07-24 00:00:00 2023-07-24 00:00:00 Telephone Promise Mullen [facility] 1.2.840.114 350.1.13.10 4.2.7.2.686 [id number] General acute hospital 2023-07-23 08:00:00 2023-07-23 09:04:50 Outpatient R JARROD MERCADO [facility] [id number] General acute hospital 2023-07-23 08:00:00 2023-07-23 09:04:50 [facility] 1.2.840.114 350.1.13.10 4.2.7.2.686 [id number] General acute hospital 2023-07-23 00:00:00 2023-07-23 00:00:00 Prep For Surgery Jarrod Mercado [facility] 1.2.840.114 350.1.13.10 4.2.7.2.686 [id number] General acute hospital 2023-07-23 00:00:00 2023-07-23 00:00:00 Telephone Akiko [facility] [place] [facility] 1.2.840.114 350.1.13.10 4.2.7.2.686 [id number] General acute hospital 2023-07-22 15:00:00 2023-07-22 15:00:00 Outpatient R [facility] [id number] General acute hospital 2023-07-22 00:00:00 2023-07-22 00:00:00 Telephone Jarrod Mercado [facility] 1.2.840.114 350.1.13.10 4.2.7.2.686 [id number] General acute hospital 2023-07-10 00:00:00 2023-07-10 00:00:00 Case Management [facility] [place] [facility] 1.2.840.114 350.1.13.10 4.2.7.2.686 [id number] General acute hospital 2023-07-09 16:00:00 2023-07-09 16:20:00 Urgent Care Sera Worthy Unknown, Attending [facility] 1..840.114 350.1.13.10 4.2.7.2.686 [id number] General acute hospital 2023-07-09 16:00:00 2023-07-09 16:00:00 Outpatient R SARAH [facility] [id number] General acute hospital 2023-07-01 13:00:00 2023-07-01 13:15:00 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, [facility] Akiko [facility] [place] [facility] 1..840.114 350.1.13.10 4.2.7.2.686 [id number] General acute hospital 2023-07-01 13:00:00 2023-07-01 13:00:00 Outpatient R AKIKO [facility] [id number] General acute hospital 2023-07-01 12:30:00 2023-07-01 12:39:11 Office Visit Akiko [facility] 1..840.114 350.1.13.10 4.2.7.2.686 [id number] General acute hospital 2023-06-29 15:00:00 2023-06-29 15:00:00 Outpatient R OBI-FLOR , TROY OBI-FLOR TROY [facility] [id number] General acute hospital 2023-06-28 22:11:00 2023-06-29 02:54:00 Emergency X ARIANNA WHITMORE [facility] ERT [id number] General acute hospital 2023-06-28 22:11:00 2023-06-29 02:54:00 Emergency Arianna Whitmore [facility] 1.2.840.114 350.1.13.10 4.2.7.2.686 [id number] General acute hospital 2023-06-24 14:00:00 2023-06-24 14:00:00 Outpatient R OBI-FLOR , TROY OBI-FLOR , TROY [facility] [id number] General acute hospital 2023-06-23 08:40:00 2023-06-23 08:40:00 Outpatient R OBI-FLOR , TROY OBI-FLOR , TROY [facility] [id number] General acute hospital 2023-06-23 00:00:00 2023-06-23 00:00:00 Telephone Kimberly Guajardo [facility] 1.2.840.114 350.1.13.10 4.2.7.2.686 [id number] General acute hospital 2023-06-22 00:00:00 2023-06-22 00:00:00 Patient Secure Nicanor Downs [facility] 1.2.840.114 350.1.13.10 4.2.7.2.686 [id number] General acute hospital 2023-06-18 11:20:00 2023-06-18 11:20:00 Outpatient R OBI-FLOR , TROY OBI-FLOR , TROY [facility] [id number] General acute hospital 2023-06-15 08:52:22 2023-06-15 23:59:00 Outpatient R CHEIKH BOYLE [facility] [id number] General acute hospital 2023-06-15 08:52:22 2023-06-15 23:59:00 Hospital Encounter Cheikh Boyle [facility] 1.2.840.114 350.1.13.10 4.2.7.2.686 [id number] General acute hospital 2023-06-15 00:00:00 2023-06-15 00:00:00 Patient Secure Cheikh Cummings [facility] 1.2.840.114 350.1.13.10 4.2.7.2.686 [id number] General acute hospital 2023-06-11 14:00:00 2023-06-11 15:36:52 Outpatient R RAFAEL [facility] [id number] General acute hospital 2023-06-11 14:00:00 2023-06-11 15:36:52 Ancillary Visit Therap[facility] 1.2.840.114 350.1.13.10 4.2.7.2.686 [id number] General acute hospital 2023-06-11 00:00:00 2023-06-11 00:00:00 Patient Secure Cheikh Cummings [facility] 1.2.840.114 350.1.13.10 4.2.7.2.686 [id number] General acute hospital 2023-06-10 00:00:00 2023-06-10 00:00:00 Refill Cheikh Boyle [facility] 1.2.840.114 350.1.13.10 4.2.7.2.686 [id number] General acute hospital 2023-06-03 00:00:00 2023-06-03 00:00:00 Patient Secure g Cheikh Boyle [facility] 1.2.840.114 350.1.13.10 4.2.7.2.686 [id number] General acute hospital 2023-06-01 00:00:00 2023-06-01 00:00:00 Telephone Kimberly Guajardo [facility] 1.2.840.114 350.1.13.10 4.2.7.2.686 [id number] General acute hospital 2023-05-22 15:40:00 2023-05-22 16:43:37 Outpatient R SERA WORTHY [facility] [id number] General acute hospital 2023-05-22 15:40:00 2023-05-22 16:43:37 Urgent Care Sera Worthy Unknown, Attending [facility] 1.2840.114 350.1.13.10 4.2.7.2.686 [id number] General acute hospital 2023-05-21 00:00:00 2023-05-21 00:00:00 Telephone Kimberly Guajardo [facility] 1.2.840.114 350.1.13.10 4.2.7.2.686 [id number] General acute hospital 2023-05-19 00:00:00 2023-05-19 00:00:00 Telephone Cheikh Boyle [facility] 1.2.840.114 350.1.13.10 4.2.7.2.686 [id number] [id number] General acute hospital 2023-05-18 00:00:00 2023-05-18 00:00:00 Telephone Kimberly Guajardo [facility] 1.2840.114 350.1.13.10 4.2.7.2.686 [id number] General acute hospital 2023-05-18 00:00:00 2023-05-18 00:00:00 Orders Only Doctor Unassigned, [place] [facility] 1.2.840.114 350.1.13.10 4.2.7.2.686 [id number] General acute hospital 2023-05-17 00:00:00 2023-05-17 00:00:00 Patient Secure [facility] [facility] 1.2.840.114 350.1.13.10 4.2.7.2.686 [id number] [id number] General acute hospital 2023-05-15 10:00:59 2023-05-15 23:59:00 Outpatient R RAFAEL [facility] [id number] General acute hospital 2023-05-15 10:00:59 2023-05-15 23:59:00 Hospital Encounter Rafael [facility] BUILDING 1.2.840.114 350.1.13.10 4.2.7.2.686 [id number] General acute hospital 2023-05-15 08:46:23 2023-05-15 09:59:00 [facility] 1.2.840.114 350.1.13.10 4.2.7.2.686 [id number] General acute hospital 2023-05-14 00:00:00 2023-05-14 00:00:00 Frannie Boston [facility] 1.2.840.114 350.1.13.10 4.2.7.2.686 [id number] 134 [id number] General acute hospital 2023-05-13 11:20:00 2023-05-13 11:20:00 Office Visit [facility] 1.2.840.114 350.1.13.10 4.2.7.2.686 [id number] 059 [id number] General acute hospital 2023-05-13 10:45:00 2023-05-13 11:00:00 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 Manager Visit 2, Adc Lab Cheikh Boyle [facility] 1.2.840.114 350.1.13.10 4.2.7.2.686 [id number] General acute hospital 2023-05-13 08:20:00 2023-05-13 10:20:16 Outpatient R CHEIKH BOYLE [facility] [id number] General acute hospital 2023-05-13 08:20:00 2023-05-13 10:20:16 Office Visit Cheikh Boyle [facility] 1.2.840.114 350.1.13.10 4.2.7.2.686 [id number] 044 [id number] General acute hospital 2023-05-13 00:00:00 2023-05-13 00:00:00 RefFrannie Peterson [facility] 1.2.840.114 350.1.13.10 4.2.7.2.686 [id number] 134 [id number] General acute hospital 2023-05-13 00:00:00 2023-05-13 00:00:00 Case Management Red Cramer [facility] 1..840.114 350.1.13.10 4.2.7.2.686 [id number] 085 [id number] General acute hospital 2023-05-13 00:00:00 2023-05-13 00:00:00 Telephone Cheikh Boyle [facility] 1.2.840.114 350.1.13.10 4.2.7.2.686 [id number] General acute hospital 2023-05-13 00:00:00 2023-05-13 00:00:00 Patient Secure Frannie Orellana [facility] 1.2840.114 350.1.13.10 4.2.7.2.686 [id number] 134 [id number] General acute hospital 2023-05-13 00:00:00 2023-05-13 00:00:00 Patient Secure Msg Doctor Unassigned, [place] [facility] 1.2840.114 350.1.13.10 4.2.7.2.686 [id number] 134 [id number] General acute hospital 2023-05-13 00:00:00 2023-05-13 00:00:00 Patient Secure Msg Cheikh Boyle [facility] 1.2840.114 350.1.13.10 4.2.7.2.686 [id number] 044 [id number] General acute hospital 2023-05-13 00:00:00 2023-05-13 00:00:00 Orders Only Doctor Unassigned, [place] [facility] 1.2840.114 350.1.13.10 4.2.7.2.686 [id number] General acute hospital 2023-05-12 00:00:00 2023-05-12 00:00:00 Patient Secure Msg Cheikh Boyle [facility] 1.2840.114 350.1.13.10 4.2.7.2.686 [id number] 044 [id number] General acute hospital 2023-05-08 10:40:00 2023-05-08 10:40:00 Outpatient R CHEIKH BOYLE [facility] [id number] General acute hospital 2023-05-08 00:00:00 2023-05-08 00:00:00 Patient Secure Msg Cheikh Boyle [facility] 1.2840.114 350.1.13.10 4.2.7.2.686 [id number] 044 [id number] General acute hospital 2023-05-07 00:00:00 2023-05-07 00:00:00 Telephone [facility] 1..840.114 350.1.13.10 4.2.7.2.686 [id number] 044 [id number] General acute hospital 2023-05-04 00:00:00 2023-05-04 00:00:00 Patient Secure Msg Doctor Unassigned, [place] [facility] 1..114 350.1.13.10 4.2.7.2.686 [id number] 019 [id number] General acute hospital 2023-05-01 00:00:00 2023-05-01 00:00:00 Patient Secure Msg Doctor Unassigned, [place] [facility] 1.84.114 350.1.13.10 4.2.7.2.686 [id number] 019 [id number] General acute hospital 2023-04-29 15:30:00 2023-04-29 15:38:38 Outpatient R SARAH [facility] [id number] General acute hospital 2023-04-29 15:30:00 2023-04-29 15:38:38 Nurse Visit Nurse, [facility] 1..840.114 350.1.13.10 4.2.7.2.686 [id number] 134 [id number] General acute hospital 2023-04-29 00:00:00 2023-04-29 00:00:00 Patient Secure Msg Cheikh Boyle [facility] 1.840.114 350.1.13.10 4.2.7.2.686 [id number] 044 [id number] General acute hospital 2023-04-29 00:00:00 2023-04-29 00:00:00 Telephone Cheikh Boyle [facility] 1.2.840.114 350.1.13.10 4.2.7.2.686 [id number] 044 [id number] General acute hospital 2023-04-28 00:00:00 2023-04-28 00:00:00 Frannie Boston [facility] 1.2.840.114 350.1.13.10 4.2.7.2.686 [id number] 134 [id number] General acute hospital 2023-04-21 00:00:00 2023-04-21 00:00:00 Telephone Cheikh Boyle [facility] 1.2.840.114 350.1.13.10 4.2.7.2.686 [id number] 044 [id number] General acute hospital 2023-04-20 00:00:00 2023-04-20 00:00:00 Patient Secure Msg Cheikh Boyle [facility] 1.2.840.114 350.1.13.10 4.2.7.2.686 [id number] 044 [id number] General acute hospital 2023-04-14 00:00:00 2023-04-14 00:00:00 Orders Only Doctor Unassigned, [place] [facility] 1.2.840.114 350.1.13.10 4.2.7.2.686 [id number] [id number] General acute hospital 2023-04-14 00:00:00 2023-04-14 00:00:00 Telephone Cheikh Boyle [facility] 1.2.840.114 350.1.13.10 4.2.7.2.686 [id number] 044 [id number] General acute hospital 2023-04-10 00:00:00 2023-04-10 00:00:00 Telephone Cheikh Boyle [facility] 1.2.840.114 350.1.13.10 4.2.7.2.686 [id number] 044 [id number] General acute hospital 2023-04-04 15:40:00 2023-04-04 15:40:00 Outpatient R [facility] [id number] General acute hospital 2023-04-04 15:00:00 2023-04-04 15:00:00 Outpatient R UNKNOWN, ATTENDING [facility] [id number] General acute hospital 2023-04-03 15:40:00 2023-04-03 16:07:45 Outpatient R SERA WORTHY [facility] [id number] General acute hospital 2023-04-03 15:40:00 2023-04-03 16:00:00 Urgent Care PatriciaSera garcia Unknown, Attending [facility] 1..840.114 350.1.13.10 4.2.7.2.686 [id number] General acute hospital 2023-04-03 15:45:00 2023-04-03 15:45:00 Outpatient R UNKNOWN, ATTENDING [facility] [id number] General acute hospital 2023-04-02 00:00:00 2023-04-02 00:00:00 Patient Secure Msg Doctor Unassigned, [place] [facility] ..840.114 350.1.13.10 4.2.7.2.686 [id number] 134 [id number] General acute hospital 2023-04-01 13:40:00 2023-04-01 14:40:45 Outpatient R CHEIKH BOYLE [facility] [id number] General acute hospital 2023-04-01 13:40:00 2023-04-01 14:40:45 Office Visit Cheikh Boyle [facility] ..840.114 350.1.13.10 4.2.7.2.686 [id number] 044 [id number] General acute hospital 2023-04-01 00:00:00 2023-04-01 00:00:00 Case Management Jarrod Mercado [facility] 1.84.114 350.1.13.10 4.2.7.2.686 [id number] 134 [id number] General acute hospital 2023-04-01 00:00:00 2023-04-01 00:00:00 Patient Secure Msg Cheikh Boyle [facility] 1.84.114 350.1.13.10 4.2.7.2.686 [id number] 044 [id number] General acute hospital 2023-03-31 00:00:00 2023-03-31 00:00:00 Letter (Out) Sabiha Vargas [facility] 1..114 350.1.13.10 4.2.7.2.686 [id number] 019 [id number] General acute hospital 2023-03-30 13:00:00 2023-03-30 13:53:48 Outpatient R JARROD MERCADO [facility] [id number] General acute hospital 2023-03-30 13:00:00 2023-03-30 13:53:48 Office Visit Jarrod Mercado [facility] 1.84.114 350.1.13.10 4.2.7.2.686 [id number] 134 [id number] General acute hospital 2023-03-30 10:00:00 2023-03-30 10:23:54 Laboratory Only Only, Ang Db Test Unknown, Attending Malena Garcia [facility] 1.84.114 350.1.13.10 4.2.7.2.686 [id number] General acute hospital 2023-03-30 00:00:00 2023-03-30 00:00:00 Letter (Out) Malena Garcia [facility] 1.2.840.114 350.1.13.10 4.2.7.2.686 [id number] 370 [id number] General acute hospital 2023-03-30 00:00:00 2023-03-30 00:00:00 Refill Bayron [facility] 1.2.840.114 350.1.13.10 4.2.7.2.686 [id number] 044 [id number] General acute hospital 2023-03-27 00:00:00 2023-03-27 00:00:00 Refill Frannie Smith [facility] 1.2.840.114 350.1.13.10 4.2.7.2.686 [id number] 134 [id number] General acute hospital 2023-03-27 00:00:00 2023-03-27 00:00:00 Refill Cheikh Boyle [facility] 1.2.840.114 350.1.13.10 4.2.7.2.686 [id number] 044 [id number] General acute hospital 2023-03-27 00:00:00 2023-03-27 00:00:00 Refill Cheikh Boyle [facility] 1.2.840.114 350.1.13.10 4.2.7.2.686 [id number] 044 [id number] General acute hospital 2023-03-25 00:00:00 2023-03-25 00:00:00 Patient Secure MsFrannie Torres [facility] 1.2.840.114 350.1.13.10 4.2.7.2.686 [id number] 134 [id number] General acute hospital 2023-03-24 00:00:00 2023-03-24 00:00:00 Telephone Frannie Smith [facility] 1.84.114 350.1.13.10 4.2.7.2.686 [id number] 134 [id number] General acute hospital 2023-03-21 00:00:00 2023-03-21 00:00:00 Telephone Kimmy Prieto [facility] 1.114 350.1.13.10 4.2.7.2.686 [id number] 019 [id number] General acute hospital 2023-03-20 15:40:00 2023-03-20 16:35:15 Urgent Care Sera Worthy, Attending [facility] 1..114 350.1.13.10 4.2.7.2.686 [id number] 370 [id number] General acute hospital 2023-03-20 16:00:00 2023-03-20 16:00:00 Outpatient Sona DRISCOLL, ATTENDING [facility] [id number] General acute hospital 2023-02-27 14:40:00 2023-02-27 14:40:00 Outpatient R CHEIKH BOYLE [facility] [id number] General acute hospital 2023-02-18 00:00:00 2023-02-18 00:00:00 Patient Secure Msg Doctor Unassigned, [place] [facility] 1.114 350.1.13.10 4.2.7.2.686 [id number] 044 [id number] General acute hospital 2023-02-11 11:20:00 2023-02-11 11:20:00 Outpatient R CHEIKH BOYLE [facility] [id number] General acute hospital 2023-02-04 00:00:00 2023-02-04 00:00:00 Telephone Sarah [facility] BUILDING 1.84.114 350.1.13.10 4.2.7.2.686 [id number] 044 [id number] General acute hospital 2023-02-03 00:00:00 2023-02-03 00:00:00 Patient Secure Msg Frannie Smith [facility] 1.2.840.114 350.1.13.10 4.2.7.2.686 [id number] 134 [id number] General acute hospital 2023-02-03 00:00:00 2023-02-03 00:00:00 Patient Secure Msg Frannie Smith [facility] 1.2.840.114 350.1.13.10 4.2.7.2.686 [id number] 134 [id number] General acute hospital 2023-02-02 16:15:00 2023-02-02 16:30:00 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, Adc Lab Main Frannie Smith [facility] 1.2.840.114 350.1.13.10 4.2.7.2.686 [id number] 353 [id number] General acute hospital 2023-02-02 15:45:00 2023-02-02 16:15:00 Office Visit Frannie Smith [facility] 1.2.840.114 350.1.13.10 4.2.7.2.686 [id number] 134 [id number] General acute hospital 2023-02-02 15:45:00 2023-02-02 16:02:01 Outpatient R FRANNIE SMITH [facility] [id number] General acute hospital 2023-02-02 00:00:00 2023-02-02 00:00:00 Orders Only Doctor Unassigned, [place] [facility] 1.2.840.114 350.1.13.10 4.2.7.2.686 [id number] General acute hospital 2023-01-07 09:45:00 2023-01-07 09:45:00 Outpatient FRANNIE JIMENEZ [facility] [id number] General acute hospital 2023-01-06 15:20:00 2023-01-06 15:20:00 Outpatient CHEIKH LIZAMA [facility] [id number] General acute hospital 2022-08-16 11:30:00 2022-08-16 11:47:21 Outpatient CAMELIA LONGORIA [facility] [id number] General acute hospital 2022-08-16 11:30:00 2022-08-16 11:45:00 Laboratory Only Only, Ang Db Test Unknown, Attending [facility] 1.2.840.114 350.1.13.10 4.2.7.2.686 [id number] General acute hospital 2022-08-04 18:18:00 2022-08-04 20:38:00 Emergency X NII BONILLA [facility] ERT [id number] General acute hospital 2022-08-04 18:18:00 2022-08-04 20:38:00 Emergency Nii Bonilla [facility] 1..840.114 350.1.13.10 4.2.7.2.686 [id number] 084 [id number] General acute hospital 2022-05-12 09:39:00 2022-05-12 12:15:00 Emergency X CIARRA FRANK [facility] ERT [id number] General acute hospital 2022-05-12 09:39:00 2022-05-12 12:15:00 Emergency Ciarra Frank S [facility] 1..840.114 350.1.13.10 4.2.7.2.686 [id number] 084 [id number] General acute hospital 2022-04-29 09:30:00 2022-04-29 09:30:00 Outpatient FRANNIE JIMENEZ [facility] [id number] General acute hospital 2022-04-23 14:30:00 2022-04-23 14:30:00 Outpatient Sona SMITH FRANNIE [facility] [id number] General acute hospital 2022-04-22 11:15:00 2022-04-22 11:15:00 Outpatient FRANNIE JIMENEZ [facility] [id number] General acute hospital 2022-04-08 10:00:00 2022-04-08 10:00:00 Outpatient R ADELINE WILLIAM [facility] [id number] General acute hospital 2022-04-03 08:30:00 2022-04-03 08:30:00 Outpatient FRANNIE JIMENEZ [facility] [id number] General acute hospital 2022-03-24 09:13:00 2022-03-24 09:37:00 Emergency X LIZANDRO KEATING [facility] ERT [id number] General acute hospital 2022-03-24 09:13:00 2022-03-24 09:37:00 Emergency Lizandro Keating [facility] 1.2.840.114 350.1.13.10 4.2.7.2.686 [id number] General acute hospital 2022-02-21 00:00:00 2022-02-21 00:00:00 Outpatient BRITTANY UMAÑA [facility] [id number] General acute hospital 2022-02-20 15:30:00 2022-02-20 15:30:00 Outpatient JAN IRIZARRY [facility] [id number] General acute hospital 2022-02-18 14:30:00 2022-02-18 14:30:00 Outpatient FRANNIE JIMENEZ [facility] [id number] General acute hospital 2022-02-17 18:40:00 2022-02-17 21:13:00 Emergency X NATALIE ALMENDAREZ [facility] ERT [id number] General acute hospital 2022-02-17 18:40:00 2022-02-17 21:13:00 Emergency Almendarez, Natalie R [facility] 1.840.114 350.1.13.10 4.2.7.2.686 [id number] [id number] General acute hospital 2022-02-17 18:15:00 2022-02-17 18:35:00 Nurse Visit Nurse, Aurelio [facility] Lashanda Bowertany [facility] 1.840.114 350.1.13.10 4.2.7.2.686 [id number] General acute hospital 2022-02-17 18:15:00 2022-02-17 18:15:00 [facility] [id number] General acute hospital 2022-01-28 15:30:00 2022-01-28 15:30:00 Outpatient R JAN ESTRADA [facility] [id number] General acute hospital 2022-01-27 00:00:00 2022-01-27 00:00:00 Letter (Out) VincentXochitl hernandez [facility] 1.840.114 350.1.13.10 4.2.7.2.686 [id number] General acute hospital 2022-01-26 13:40:00 2022-01-26 14:06:12 Outpatient R SHANNAN STEWARD [facility] [id number] General acute hospital 2022-01-26 13:40:00 2022-01-26 14:06:12 Urgent Care Shannan Steward [facility] 1.840.114 350.1.13.10 4.2.7.2.686 [id number] 370 [id number] General acute hospital 2022-01-26 00:00:00 2022-01-26 00:00:00 Letter (Out) Provider, Aurelio [facility] 1.2.84.114 350.1.13.10 4.2.7.2.686 [id number] 370 [id number] General acute hospital 2022-01-23 14:00:00 2022-01-23 14:10:00 Imm/Inj Visit Vaccine, Ang Db Cbc Fam Dominic Peralta [facility] 1.84.114 350.1.13.10 4.2.7.2.686 [id number] 044 [id number] General acute hospital 2022-01-23 14:00:00 2022-01-23 14:00:00 Outpatient R DOMINIC PERALTA [facility] [id number] General acute hospital 2022-01-22 14:40:00 2022-01-22 14:40:00 Outpatient R CHEIKH BOYLE [facility] [id number] General acute hospital 2021-12-27 00:00:00 2021-12-27 00:00:00 Outpatient R BRITTANY BELCHER [facility] [id number] General acute hospital 2021-11-28 00:00:00 2021-11-28 00:00:00 Letter (Out) Xochitl Kaur [facility] 1.84.114 350.1.13.10 4.2.7.2.686 [id number] [id number] General acute hospital 2021-11-27 15:15:00 2021-11-27 15:30:00 Laboratory Only Only, Ang Db Test Zaynab [facility] 1.84.114 350.1.13.10 4.2.7.2.686 [id number] General acute hospital 2021-11-27 15:15:00 2021-11-27 15:15:00 Outpatient R SERA WORTHY [facility] [id number] General acute hospital 2021-11-23 22:04:00 2021-11-24 04:27:00 Emergency X ARIANNA WHITMORE [facility] ERT [id number] General acute hospital 2021-11-23 22:04:00 2021-11-24 04:27:00 Emergency Arianna Whitmore [facility] 1.2.840.114 350.1.13.10 4.2.7.2.686 [id number] 084 [id number] General acute hospital 2021-11-21 15:30:00 2021-11-21 16:15:19 Office Visit Brittany Belcher [facility] 1.2840.114 350.1.13.10 4.2.7.2.686 [id number] 134 [id number] General acute hospital 2021-11-21 15:30:00 2021-11-21 16:15:19 Outpatient R ANDREA BRITTANY [facility] [id number] General acute hospital 2021-11-21 15:30:00 2021-11-21 15:30:00 Outpatient R ANDREA BRITTANY [facility] [id number] General acute hospital 2021-11-21 00:00:00 2021-11-21 00:00:00 Letter (Out) Brittany Belcher [facility] 1.2.840.114 350.1.13.10 4.2.7.2.686 [id number] 134 [id number] General acute hospital 2021-11-06 07:15:00 2021-11-07 09:35:00 Outpatient X BRITTANY BELCHER [facility] [id number] General acute hospital 2021-11-06 07:15:00 2021-11-07 09:35:00 Emergency MayerMicheal Vivian [facility] 1.2.840.114 350.1.13.10 4.2.7.2.686 [id number] General acute hospital 2021-10-04 00:00:00 2021-10-04 00:00:00 Letter (Out) Xochitl Kaur [facility] 1.114 350.1.13.10 4.2.7.2.686 [id number] [id number] General acute hospital 2021-10-03 17:20:00 2021-10-03 18:22:13 Outpatient R GAMALIEL GREER III [facility] [id number] General acute hospital 2021-09-19 00:00:00 2021-09-19 00:00:00 Patient Secure Mskindra Boyle Cheikh [facility] 1.114 350.1.13.10 4.2.7.2.686 [id number] 044 [id number] General acute hospital 2021-09-14 20:00:00 2021-09-14 20:59:00 Emergency X CIARRA FRANK [facility] ERT [id number] General acute hospital 2021-09-14 20:00:00 2021-09-14 20:59:00 Emergency Ciarra Frank [facility] 1.114 350.1.13.10 4.2.7.2.686 [id number] 084 [id number] General acute hospital 2021-09-09 15:35:00 2021-09-09 17:06:00 Emergency X Susana DANIELS [facility] ERT [id number] General acute hospital 2021-09-09 15:35:00 2021-09-09 17:06:00 Emergency Susana Daniels [facility] 1.114 350.1.13.10 4.2.7.2.686 [id number] 084 [id number] General acute hospital 2021-09-09 00:00:00 2021-09-09 00:00:00 Orders Only Doctor Unassigned, [place] [facility] 1.2114 350.1.13.10 4.2.7.2.686 [id number] General acute hospital 2021-08-27 11:45:00 2021-08-27 12:00:00 Laboratory Only Only, Ang Db Test Shannan Steward [facility] 1.84.114 350.1.13.10 4.2.7.2.686 [id number] General acute hospital 2021-08-27 11:45:00 2021-08-27 11:59:56 Outpatient R SHANNAN STEWARD [facility] [id number] General acute hospital 2021-08-27 00:00:00 2021-08-27 00:00:00 Letter (Out) Provider, Urgent Care Day [facility] 1.84.114 350.1.13.10 4.2.7.2.686 [id number] General acute hospital 2021-08-19 18:20:00 2021-08-19 19:19:45 Outpatient R ASHELY MINORMarisabel [facility] [id number] General acute hospital 2021-08-19 18:20:00 2021-08-19 18:40:00 Urgent Care Ashely MinorMalena Arriola [facility] 1.84.114 350.1.13.10 4.2.7.2.686 [id number] General acute hospital 2021-08-19 00:00:00 2021-08-19 00:00:00 Orders Only Doctor Unassigned, [place] [facility] 1.114 350.1.13.10 4.2.7.2.686 [id number] General acute hospital 2021-08-01 10:20:00 2021-08-01 10:40:00 Urgent Care Tomasa William Rania [facility] 1.2.840.114 350.1.13.10 4.2.7.2.686 [id number] General acute hospital 2021-08-01 10:20:00 2021-08-01 10:20:00 Outpatient R SERA WORTHY [facility] [id number] General acute hospital 2021-06-27 09:00:00 2021-06-27 09:00:00 Outpatient R FRANNIE SMITH [facility] [id number] General acute hospital 2021-06-09 14:25:24 2021-06-09 14:45:24 [facility] 1.2.840.114 350.1.13.10 4.2.7.2.686 [id number] General acute hospital 2021-06-09 14:40:00 2021-06-09 14:40:00 Outpatient R SERA WORTHY [facility] [id number] General acute hospital 2021-04-21 00:00:00 2021-04-21 00:00:00 Telephone Kaley Coello [facility] 1.2.840.114 350.1.13.10 4.2.7.2.686 [id number] General acute hospital 2021-04-20 11:16:01 2021-04-20 11:52:08 Urgent [facility] 1.2.840.114 350.1.13.10 4.2.7.2.686 [id number] General acute hospital 2021-04-20 11:20:00 2021-04-20 11:20:00 Outpatient R TOMASA WILLIAM [facility] [id number] General acute hospital 2021-04-19 18:56:00 2021-04-19 19:59:00 Emergency Ciarra Frank [facility] 1.2.840.114 350.1.13.10 4.2.7.2.686 [id number] General acute hospital 2021-04-12 15:00:00 2021-04-12 15:00:00 Outpatient CHEIKH LIZAMA [facility] [id number] General acute hospital 2021-03-17 20:00:00 2021-03-17 20:00:00 Outpatient TRUPTI STERLING [facility] [id number] General acute hospital 2021-01-30 11:15:00 2021-01-30 11:15:00 Outpatient JAN IRIZARRY [facility] [id number] General acute hospital 2021-01-24 08:00:00 2021-01-24 08:00:00 Outpatient FRANNIE JIMENEZ [facility] [id number] General acute hospital 2021-01-21 10:00:00 2021-01-21 10:00:00 Outpatient FRANNIE JIMENEZ [facility] [id number] General acute hospital 2021-01-17 16:00:00 2021-01-17 16:00:00 Outpatient CHEIKH LIZAMA [facility] [id number] General acute hospital 2021-01-15 09:20:00 2021-01-15 09:20:00 Outpatient THIERNO INTERIANO HOWARD [facility] [id number] General acute hospital 2020-12-25 10:40:00 2020-12-25 10:40:00 Outpatient THIERNO INTERIANO HOWARD [facility] [id number] General acute hospital 2020-12-20 11:20:00 2020-12-20 11:20:00 Outpatient CHEIKH LIZAMA [facility] [id number] General acute hospital 2020-12-18 10:00:00 2020-12-18 10:00:00 Outpatient FRANNIE JIMENEZ [facility] [id number] General acute hospital 2020-12-10 00:00:00 2020-12-10 00:00:00 Outpatient Sona SMITH FRANNIE [facility] [id number] General acute hospital 2020-12-06 15:30:00 2020-12-06 15:30:00 Outpatient JAN IRIZARRY [facility] [id number] General acute hospital 2020-12-04 09:45:00 2020-12-04 09:45:00 Outpatient Sona SMITH [facility] [id number] General acute hospital 2020-11-27 14:30:00 2020-11-27 14:30:00 Outpatient TORY DAVALOS [facility] [id number] General acute hospital 2020-11-27 09:00:00 2020-11-27 09:00:00 Outpatient JAN IRIZARRY [facility] [id number] General acute hospital 2020-11-22 13:20:00 2020-11-22 13:20:00 Outpatient CHEIKH LIZAMA [facility] [id number] General acute hospital 2020-11-15 13:30:00 2020-11-15 13:30:00 Outpatient AJN IRIZARRY [facility] [id number] General acute hospital 2020-11-14 16:00:00 2020-11-14 16:00:00 Outpatient KEHINDE MORRISSEY [facility] [id number] General acute hospital 2020-11-08 11:00:00 2020-11-08 11:00:00 Outpatient JAN IRIZARRY [facility] [id number] General acute hospital 2020-10-25 00:00:00 2020-10-25 00:00:00 Patient Secure Jan Anthony [facility] 1.2.840.114 350.1.13.10 4.2.7.2.686 [id number] General acute hospital 2020-10-17 16:20:00 2020-10-17 16:20:00 Outpatient CHEIKH LIZAMA [facility] [id number] General acute hospital 2020-10-17 16:00:00 2020-10-17 16:00:00 Outpatient KEHINDE MORRISSEY [facility] [id number] General acute hospital 2020-10-15 10:00:00 2020-10-15 10:00:00 Outpatient FRANNIE JIMENEZ [facility] [id number] General acute hospital 2020-08-24 17:20:00 2020-08-24 17:20:00 Outpatient R [facility] [id number] General acute hospital 2020-08-16 00:00:00 2020-08-16 00:00:00 Patient Secure Msg Doctor Unassigned, [place] [facility] 1.2.840.114 350.1.13.10 4.2.7.2.686 [id number] General acute hospital 2020-08-06 14:15:00 2020-08-06 14:15:00 Outpatient FRANNIE JIMENEZ [facility] [id number] General acute hospital 2020-07-02 10:45:00 2020-07-02 10:45:00 Outpatient FRANNIE JIMENEZ [facility] [id number] General acute hospital 2020-06-22 11:20:00 2020-06-22 11:20:00 Outpatient R CHEIKH BOYLE [facility] [id number] General acute hospital 2020-06-18 14:40:00 2020-06-18 14:40:00 Outpatient RAYO WASHINGTON [facility] [id number] General acute hospital 2020-06-15 10:00:00 2020-06-15 10:00:00 Outpatient CHEIKH LIZAMA [facility] [id number] General acute hospital 2020-05-18 15:40:00 2020-05-18 15:40:00 Outpatient CHEIKH LIZAMA [facility] [id number] General acute hospital 2020-05-14 00:00:00 2020-05-14 00:00:00 Patient Secure Msg Doctor Unassigned, [place] [facility] 1.2.840.114 350.1.13.10 4.2.7.2.686 [id number] General acute hospital 2020-03-20 14:00:00 2020-03-20 14:00:00 Outpatient R IVAN ROBERTSON [facility] [id number] General acute hospital 2020-03-13 10:40:00 2020-03-13 10:40:00 Outpatient R CHEIKH BOYLE [facility] [id number] General acute hospital 2020-03-02 11:00:00 2020-03-02 11:00:00 Outpatient R AGUSTO DARLING SHIWAN [facility] [id number] General acute hospital 2020-02-29 10:00:00 2020-02-29 10:00:00 Outpatient R CHEIKH BOYLE [facility] [id number] General acute hospital 2020-02-27 13:00:00 2020-02-27 13:00:00 Outpatient CHEIKH LIZAMA [facility] [id number] General acute hospital 2020-01-24 07:37:42 2020-01-24 12:12:00 Emergency X ANNALEEBALDOMEROARIANNA [facility] ERT [id number] General acute hospital 2020-01-11 13:00:00 2020-01-11 13:00:00 Outpatient NEAL SCHOFIELD [facility] [id number] General acute hospital 2020-01-04 14:30:00 2020-01-04 14:30:00 Outpatient NEAL SCHOFIELD [facility] [id number] General acute hospital 2020-01-03 14:00:00 2020-01-03 14:00:00 [id number] General acute hospital 2019-12-20 14:00:00 2019-12-20 14:00:00 Outpatient R IVAN ROBERTSON [facility] [id number] General acute hospital 2019-12-15 12:30:00 2019-12-15 12:30:00 Outpatient R RED CRAMER [facility] [id number] General acute hospital 2019-12-12 10:00:00 2019-12-12 10:00:00 Outpatient R AGUSTO DARLING SHIWAN [facility] [id number] General acute hospital 2019-12-09 14:20:00 2019-12-09 14:20:00 Outpatient R CHEIKH BOYLE [facility] [id number] General acute hospital 2019-12-02 11:40:00 2019-12-02 11:40:00 Outpatient R AGUSTO DARLING SHIWAN [facility] [id number] General acute hospital 2019-12-01 09:00:00 2019-12-01 09:00:00 Outpatient R ALBA VALENTINE [facility] [id number] General acute hospital 2019-11-29 13:00:00 2019-11-29 13:00:00 Outpatient R ALBA VALENTINE [facility] [id number] General acute hospital 2019-11-15 09:45:00 2019-11-15 09:45:00 Outpatient R NEAL OROZCO [facility] [id number] General acute hospital 2019-11-11 10:40:00 2019-11-11 10:40:00 Outpatient R CHEIKH BOYLE [facility] [id number] General acute hospital 2019-11-04 13:20:00 2019-11-04 13:20:00 Outpatient R CHEIKH BOYLE [facility] [id number] General acute hospital 2019-11-01 10:00:00 2019-11-01 10:00:00 Outpatient R CHEIKH BOYLE [facility] [id number] General acute hospital 2019-10-28 12:40:00 2019-10-28 12:40:00 Outpatient R CHEIKH BOYLE [facility] [id number] General acute hospital 2019-10-25 11:20:00 2019-10-25 11:20:00 Outpatient THIERNO INTERIANO HOWARD [facility] [id number] General acute hospital 2019-10-21 13:00:00 2019-10-21 13:00:00 Outpatient R AGUSTO DARLING SHIWAN [facility] [id number] General acute hospital 2019-10-19 09:50:34 2019-10-19 23:59:00 Outpatient R CHEIKH BOYLE [facility] [id number] General acute hospital 2019-10-17 11:34:18 2019-10-17 16:01:00 Emergency X JEREMIAH, K [facility] ERT [id number] General acute hospital 2019-10-17 11:20:00 2019-10-17 11:20:00 Outpatient THIERNO INTERIANO HOWARD [facility] [id number] General acute hospital 2019-10-14 11:00:00 2019-10-14 11:00:00 Outpatient FRANNIE JIMENEZ [facility] [id number] General acute hospital 2019-10-12 15:40:00 2019-10-12 15:40:00 Outpatient R CHEIKH BOYLE [facility] [id number] General acute hospital 2019-10-11 13:30:00 2019-10-11 13:30:00 Outpatient JAN IRIZARRY [facility] [id number] General acute hospital 2019-10-06 15:40:00 2019-10-06 15:40:00 Outpatient R CHEIKH BOYLE [facility] [id number] General acute hospital 2019-08-31 14:47:13 2019-09-06 18:06:25 Office Visit Cheikh Boyle [facility] 1.2.840.114 350.1.13.10 4.2.7.2.[id number] [facility] [id number] General acute hospital 2019-09-06 13:53:00 2019-09-06 14:53:00 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 Manager Visit Tech, Adc Cardio Fac 2, Adc Cardio Fac Room [facility]or [facility] nal Building 1.2.840.114 350.1.13.10 4.2.7.2.686 [id number] General acute hospital 2019-09-06 08:52:38 2019-09-06 09:16:32 Office Visit Frannie Smith [facility] 1.2.840.114 350.1.13.10 4.2.7.2.686 [id number] General acute hospital 2019-09-01 09:38:47 2019-09-01 16:33:00 Emergency AubertinerNii knight [facility] 1.2.840.114 350.1.13.10 4.2.7.2.686 [id number] General acute hospital 2019-08-25 13:03:52 2019-08-25 15:25:05 Ancillary Visit Melisa Perez Craig L [facility] Building 1.2.840.114 350.1.13.10 4.2.7.2.686 [id number] General acute hospital 2019-08-25 00:00:00 2019-08-25 00:00:00 Telephone Cheikh Boyle [facility] Building 1.2.840.114 350.1.13.10 4.2.7.2.686 [id number] General acute hospital 2019-08-23 00:00:00 2019-08-23 00:00:00 Telephone Nicanor Hall [facility] Building 1.2.840.114 350.1.13.10 4.2.7.2.686 [id number] General acute hospital 2019-08-16 06:57:53 2019-08-16 09:44:00 Emergency X MICHEAL MAYER [facility] ERT [id number] General acute hospital 2019-04-22 09:04:40 2019-04-22 09:52:08 Office Visit Gamaliel Johnson [facility] Office Building [facility] 1.2.840.114 350.1.13.10 4.2.7.2.686 [id number] General acute hospital 2019-04-22 00:00:00 2019-04-22 00:00:00 Orders Only Doctor Unassigned, [place] [facility] 1.2840.114 350.1.13.10 4.2.7.2.686 [id number] General acute hospital 2019-04-11 09:18:53 2019-04-11 09:57:00 Emergency Filomena Torres [facility] 1.2.840.114 350.1.13.10 4.2.7.2.686 [id number] General acute hospital 2019-04-11 00:00:00 2019-04-11 00:00:00 Orders Only Doctor Unassigned, [place] [facility] 1.2.840.114 350.1.13.10 4.2.7.2.686 [id number] General acute hospital Results Test Description Test Time Test Comments Results Result Co mments Source [facility] MOLECULAR [id number] 15:44:53* Test Item Value Reference Range Interpretation Comme nts POCT Molecular Strep (test c ode = 64283-1) Negative Negative Lab Interpretation (test cod e = 57395-1) Normal [facility] MOLECULAR [id number] 17:32:27* Test Item Value Reference Range Interpretation Comme nts POCT Molecular Strep (test c ode = 03069-5) Negative Negative Lab Interpretation (test cod e = 38524-4) Normal [facility] SARS-COV-2 ANTIGEN (BINAX NOW)2023-12-04 17:31:00* Test Item Value Reference Range Interpretation Comme nts POCT SARS-COV-2 ANTIGEN (test code = 50308-9) Not Detected Not Detected On board controls acceptable with C Line (test code = 3574) Yes TYRON (test code = TYRON) accurate developme nt and interpretation of all internal controls Lab Interpretation (test code = 84593-8) Normal [facility] SARS-COV-2 ANTIGEN (BINAX NOW)2023-09-15 18:43:00* Test Item Value Reference Range Interpretation Comme nts POCT SARS-COV-2 ANTIGEN (tavon t code = 92362-8) Not Detected Not Detected On board controls acceptable with C Line (test code = 3574) Yes Lab Interpretation (test cod e = 16431-4) Normal [facility] SARS-COV-2 ANTIGEN (BINAX NOW)2023-09-15 18:43:00* Test Item Value Reference Range Interpretation Comme nts POCT SARS-COV-2 ANTIGEN (tavon t code = 21280-3) Not Detected Not Detected On board controls acceptable with C Line (test code = 3574) Yes Lab Interpretation (test cod e = 44626-2) Normal [facility] SARS-COV-2 ANTIGEN (BINAX NOW)2023-09-15 18:43:00* Test Item Value Reference Range Interpretation Comme nts POCT SARS-COV-2 ANTIGEN (tavon t code = 77462-3) Not Detected Not Detected On board controls acceptable with C Line (test code = 3574) Yes Lab Interpretation (test cod e = 78607-0) Normal [facility] Metabolic Panel (NA, K, CL, CO2, GLUCOSE, BUN, CREATININE, CA) - On Postoperative Day # 59541-00-50 11:17:22* Test Item Value Reference Range Interpretation Comme nts NA (test code = 5587380614) 138 mmol/L 135-145 K (test code = 3362377084) 4.2 mmol/L 3.5-5.0 CL (test code = 7683426182) 107 mmol/L 98-108 CO2 TOTAL (test code = 6146107999) 20 mmol/L 23-31 L AGAP (test code = 0460622513) 11 2-16 BUN (test code = 1514858004) 7 mg/dL 7-23 GLUCOSE (test code = 4272468283) 110 mg/dL 70-110 CREATININE (test code = 5986863987) 0.62 mg/dL 0.50-1.04 CALCIUM (test code = 7668981268) 9.0 mg/dL 8.6-10.6 eGFR (test code = 23246-0) 117.8 mL/min/1.73m2 CKD-EPI eGFR (2020). Assuming creatinine has been stable day-to-day for at least three months, the eGFR indicates Category G1 (>= 90 mL/min/1.73 m2) Lab Interpretation (test code = 42824-8) Abnormal [facility] Metabolic Panel (NA, K, CL, CO2, GLUCOSE, BUN, CREATININE, CA) - On Postoperative Day # 11:17:22* Test Item Value Reference Range Interpretation Comme nts NA (test code = 8632874277) 138 mmol/L 135-145 K (test code = 1267344200) 4.2 mmol/L 3.5-5.0 CL (test code = 1772009457) 107 mmol/L 98-108 CO2 TOTAL (test code = 0956633885) 20 mmol/L 23-31 L AGAP (test code = 0549910015) 11 2-16 BUN (test code = 8161185760) 7 mg/dL 7-23 GLUCOSE (test code = 9644964050) 110 mg/dL 70-110 CREATININE (test code = 4787729464) 0.62 mg/dL 0.50-1.04 CALCIUM (test code = 8000380757) 9.0 mg/dL 8.6-10.6 eGFR (test code = 94817-2) 117.8 mL/min/1.73m2 CKD-EPI eGFR (2020). Assuming creatinine has been stable day-to-day for at least three months, the eGFR indicates Category G1 (>= 90 mL/min/1.73 m2) Lab Interpretation (test code = 96453-0) Abnormal [facility] with Differential - On Postoperative Day # [...] 34.0 g/dL 31.6-35.1 RDW-SD (test code = 84821-5) 38.8 fL 39.0-49.9 L RDW-CV (test code = 788-0) 12.0 % 12.0-15.5 PLT (test code = 777-3) 339 See_Comment [Automated messa ge] The system which generated this result transmitted reference range: 166 - 358 10*3/?L. The reference range was not used to interpret this result as normal/abnormal. MPV (test code = 70451-0) 9.0 fL 9.5-12.9 L NRBC/100 WBC (test code = 1620539368) 0.0 See_Comment [Automated [employer] ssage] The system which generated this result transmitted reference range: 0.0 - 10.0 /100 WBCs. The reference range was not used to interpret this result as normal/abnormal. NRBC x10^3 (test code = 5235538218) See_Comment [Automated messa ge] The system which generated this result transmitted reference range: 10*3/?L. The reference range was not used to interpret this result as normal/abnormal. GRAN MAT (NEUT) % (test code = 770-8) 82.7 % IMM GRAN % (test code = 6889094263) 0.30 % LYMPH % (test code = 736-9) 11.4 % MONO % (test code = 5905-5) 5.4 % EOS % (test code = 713-8) 0.0 % BASO % (test code = 706-2) 0.2 % GRAN MAT x10^3(ANC) (test code = 8841251910) 9.84 10*3/uL 1.88-7.09 H IMM GRAN x10^3 (test code = 6244883361) 0.04 10*3/uL 0.00-0.06 LYMPH x10^3 (test code = 731-0) 1.36 10*3/uL 1.32-3.29 MONO x10^3 (test code = 742-7) 0.64 10*3/uL 0.33-0.92 EOS x10^3 (test code = 711-2) 0.03-0.39 L BASO x10^3 (test code = 704-7) 0.01-0.07 Lab Interpretation (test code = 56920-8) Abnormal [facility] with Differential - On Postoperative Day # 72910-87-12 10:49:19* Test Item Value Reference Range Interpretation [...] 34.0 g/dL 31.6-35.1 RDW-SD (test code = 64621-7) 38.8 fL 39.0-49.9 L RDW-CV (test code = 788-0) 12.0 % 12.0-15.5 PLT (test code = 777-3) 339 See_Comment [Automated [employer] ge] The system which generated this result transmitted reference range: 166 - 358 10*3/?L. The reference range was not used to interpret this result as normal/abnormal. MPV (test code = 08310-0) 9.0 fL 9.5-12.9 L NRBC/100 WBC (test code = 3826576578) 0.0 See_Comment [Automated [employer] ssage] The system which generated this result transmitted reference range: 0.0 - 10.0 /100 WBCs. The reference range was not used to interpret this result as normal/abnormal. NRBC x10^3 (test code = 3966352282) See_Comment [Automated [employer] ge] The system which generated this result transmitted reference range: 10*3/?L. The reference range was not used to interpret this result as normal/abnormal. GRAN MAT (NEUT) % (test code = 770-8) 82.7 % IMM GRAN % (test code = 9667861780) 0.30 % LYMPH % (test code = 736-9) 11.4 % MONO % (test code = 5905-5) 5.4 % EOS % (test code = 713-8) 0.0 % BASO % (test code = 706-2) 0.2 % GRAN MAT x10^3(ANC) (test code = 8379494385) 9.84 10*3/uL 1.88-7.09 H IMM GRAN x10^3 (test code = 0832631763) 0.04 10*3/uL 0.00-0.06 LYMPH x10^3 (test code = 731-0) 1.36 10*3/uL 1.32-3.29 MONO x10^3 (test code = 742-7) 0.64 10*3/uL 0.33-0.92 EOS x10^3 (test code = 711-2) 0.03-0.39 L BASO x10^3 (test code = 704-7) 0.01-0.07 Lab Interpretation (test code = 00879-8) [facility] [id number] 16:26:01BETA HCG<2.39Non- female and male patients: <5 mIU/mL09/01/2023 10:26 AM [facility] Gestational Age ?Range (mIU/mL) 1-10 ?Weeks ?42-68860572-61 Weeks ?10838-47641981-23 Weeks ?8461-50729744-27 Weeks ?1531-116215 Biotin has been reported to cause a negative bias, interpret resultsrelative to patient's use of biotin.[facility] HCG, QUANTITATIVE, [id number] 16:26:01BETA HCG<2.39Non- female and male patients: <5 mIU/mL09/01/2023 10:26 AM [facility] Gestational Age ?Range (mIU/mL) 1-10 ?Weeks ?94-48084542-01 Weeks ?28394-66822269-87 Weeks ?8207-95132424-56 Weeks ?1531-076354 Biotin has been reported to cause a negative bias, interpret resultsrelative to patient's use of biotin. [facility] with [id number] 23:24:46* Test Item Value Reference Range Interpretation Comme nts WBC (test code = 6690-2) 7.16 See_Comment [Automated [employer] ge] The system which generated this result transmitted reference range: 4.30 - 11.10 10*3/?L. The reference range was not used to interpret this result as normal/abnormal. RBC (test code = 789-8) 4.43 See_Comment [Automated [employer] ge] The system which generated this result [...] 34.3 g/dL 31.6-35.1 RDW-SD (test code = 83432-2) 38.7 fL 39.0-49.9 L RDW-CV (test code = 788-0) 12.0 % 12.0-15.5 PLT (test code = 777-3) 343 See_Comment [Automated messa ge] The system which generated this result transmitted reference range: 166 - 358 10*3/?L. The reference range was not used to interpret this result as normal/abnormal. MPV (test code = 03662-3) 8.8 fL 9.5-12.9 L NRBC/100 WBC (test code = 6861346338) 0.0 See_Comment [Automated [employer] ssage] The system which generated this result transmitted reference range: 0.0 - 10.0 /100 WBCs. The reference range was not used to interpret this result as normal/abnormal. NRBC x10^3 (test code = 3121381507) See_Comment [Automated [employer] ge] The system which generated this result transmitted reference range: 10*3/?L. The reference range was not used to interpret this result as normal/abnormal. GRAN MAT (NEUT) % (test code = 770-8) 43.2 % IMM GRAN % (test code = 1317507552) 0.00 % LYMPH % (test code = 736-9) 47.6 % MONO % (test code = 5905-5) 6.8 % EOS % (test code = 713-8) 2.0 % BASO % (test code = 706-2) 0.4 % GRAN MAT x10^3(ANC) (test code = 9646236706) 3.09 10*3/uL 1.88-7.09 IMM GRAN x10^3 (test code = 5320587668) 0.00-0.06 LYMPH x10^3 (test code = 731-0) 3.41 10*3/uL 1.32-3.29 H MONO x10^3 (test code = 742-7) 0.49 10*3/uL 0.33-0.92 EOS x10^3 (test code = 711-2) 0.14 10*3/uL 0.03-0.39 BASO x10^3 (test code = 704-7) 0.03 10*3/uL 0.01-0.07 Lab Interpretation (test code = 81092-9) Abnormal [facility] [id number] 21:21:00* Test Item Value Reference Range Interpretation Comme nts POCT PREG (test code = 1605) Negative On board controls acceptable with C Line (test code = 3574) Yes POCT PREG LOT # (test code = 3575) POCT PREG TEST DATE ( test code = 3576) [facility] [id number] 21:21:00* Test Item Value Reference Range Interpretation Comme nts POCT PREG (test code = 1605) Negative On board controls acceptable with C Line (test code = 3574) Yes POCT PREG LOT # (test code = 3575) POCT PREG TEST DATE ( test code = 3576) [facility] PELVIS COMPLETE WITH [id number] 17:16:52EXAM: US PELVIS COMPLETE WITH TRANSVAGINAL HISTORY: 38 years-old Female presenting for AUB LMP = 06/08/2023 TECHNIQUE: Transabdominal and transvaginal ultrasound imaging and colorDoppler evaluation of the pelvis was performed. [place] Picker images wereobtained for the record. COMPARISON: Ultrasound [...] Cul-de-sac: Small amount of free fluid is present.[facility] Test 2023-07-23 14:27:00* Test Item Value Reference Range Interpretation Comme [facility] POCT PREG (test code = 1605) Negative On board controls acceptable with C Line (test code = 3574) Yes POCT PREG LOT # (test code = 3575) POCT PREG TEST DATE ( test code = 3576) [facility] [id number] 14:27:00* Test Item Value Reference Range Interpretation Comme [facility] POCT PREG (test code = 1605) Negative On board controls acceptable with C Line (test code = 3574) Yes POCT PREG LOT # (test code = 3575) POCT PREG TEST DATE ( test code = 3576) [facility] MOLECULAR [id number] 22:04:53* Test Item Value Reference Range Interpretation Comme [facility] POCT Molecular Strep (test c ode = 31939-5) Negative Negative Lab Interpretation (test cod e = 03460-6) [facility][id number] 06:58:09* Test Item Value Reference Range Interpretation Comments D-DIMER (test code = 8919548809) See_Comment [Automated message] The system which generated [...] a diagnosis. Lab Interpretation (test code = 31502-8) Normal [facility] CenterTR[facility] [id number] 06:32:18* Test Item Value Reference Range Interpretation Comme nts TROPONIN I (test code = 7785188725) 0.004 ng/mL <=0.034 TYRON (test code = [...] of biotin. Lab Interpretation (test code = 08608-9) Normal [facility] Center[facility]IPASE2023-[facility]-20 06:22:17* Test Item Value Reference Range Interpretation Comme nts LIPASE (test code = 4132381140) 105 U/L 0-220 Lab Interpretation (test cod e = 37546-8) Normal [facility] CenterCOMP. METABOLIC PANEL (43201)2023-06-29 06:22:12* Test Item Value Reference Range Interpretation Comme nts NA (test code = 6349455770) 140 mmol/L 135-145 K (test code = 7332360366) 4.1 mmol/L 3.5-5.0 CL (test code = 5805179474) 104 mmol/L 98-108 CO2 TOTAL (test code = 2673729194) 29 mmol/L 23-31 AGAP (test code = 5077213696) 7 2-16 BUN (test code = 0823397092) 10 mg/dL 7-23 GLUCOSE (test code = 1300805781) 102 mg/dL 70-110 CREATININE (test code = 2055580714) 0.70 mg/dL 0.50-1.04 TOTAL BILI (test code = 9314903713) 0.4 mg/dL 0.1-1.1 CALCIUM (test code = 6257897481) 9.3 mg/dL 8.6-10.6 T PROTEIN (test code = 5982729799) 8.4 g/dL 6.3-8.2 H ALBUMIN (test code = 0643988731) 4.3 g/dL 3.5-5.0 ALK PHOS (test code = 4689374824) 82 U/L 34-122 ALTv (test code = 1742-6) 26 U/L 5-35 AST(SGOT) (test code = 6896395434) 27 U/L 13-40 eGFR (test code = 39152-7) 114.4 mL/min/1.73m2 CKD-EPI eGFR (2020). Assuming creatinine has been stable day-to-day for at least three months, the eGFR indicates Category G1 (>= 90 mL/min/1.73 m2) Lab Interpretation (test code = 51399-7) Abnormal [facility] WITH [id number] 06:07:18* Test Item Value Reference Range Interpretation Comme nts WBC (test code = 6690-2) 6.82 See_Comment [[employer]] The system which generated this result transmitted reference range: 4.30 - 11.10 10*3/?L. The reference range was not used to interpret this result as normal/abnormal. RBC (test code = 789-8) 4.39 See_Comment [[employer]] The system which generated this result transmitted [...] 34.8 g/dL 31.6-35.1 RDW-SD (test code = 67609-9) 38.2 fL 39.0-49.9 L RDW-CV (test code = 788-0) 11.8 % 12.0-15.5 L PLT (test code = 777-3) 353 See_Comment [Automated messa ge] The system which generated this result transmitted reference range: 166 - 358 10*3/?L. The reference range was not used to interpret this result as normal/abnormal. MPV (test code = 48230-5) 9.0 fL 9.5-12.9 L NRBC/100 WBC (test code = 3073477843) 0.0 See_Comment [Automated me ssage] The system which generated this result transmitted reference range: 0.0 - 10.0 /100 WBCs. The reference range was not used to interpret this result as normal/abnormal. NRBC x10^3 (test code = 4703115420) See_Comment [Automated messa ge] The system which generated this result transmitted reference range: 10*3/?L. The reference range was not used to interpret this result as normal/abnormal. GRAN MAT (NEUT) % (test code = 770-8) 35.0 % IMM GRAN % (test code = 7056181391) 0.30 % LYMPH % (test code = 736-9) 53.8 % MONO % (test code = 5905-5) 7.6 % EOS % (test code = 713-8) 2.9 % BASO % (test code = 706-2) 0.4 % GRAN MAT x10^3(ANC) (test code = 5129198396) 2.38 10*3/uL 1.88-7.09 IMM GRAN x10^3 (test code = 7407235055) 0.00-0.06 LYMPH x10^3 (test code = 731-0) 3.67 10*3/uL 1.32-3.29 H MONO x10^3 (test code = 742-7) 0.52 10*3/uL 0.33-0.92 EOS x10^3 (test code = 711-2) 0.20 10*3/uL 0.03-0.39 BASO x10^3 (test code = 704-7) 0.03 10*3/uL 0.01-0.07 Lab Interpretation (test code = 69544-6) Abnormal [facility] MOLECULAR [id number] 21:21:49* Test Item Value Reference Range Interpretation Comme nts POCT Molecular FluA (test co de = 64043-3) Negative Negative POCT Molecular FluB (test co de = 30340-5) Negative Negative Lab Interpretation (test cod e = 77806-5) Normal [facility] SARS-COV-2 ANTIGEN (BINAX NOW)2023-05-22 21:02:00* Test Item Value Reference Range Interpretation Comme nts POCT SARS-COV-2 ANTIGEN (test code = 96872-0) Not Detected Not Detected On board controls acceptable with C Line (test code = 3574) Yes TYRON (test code = TYRON) accurate developme nt and interpretation of all internal controls Lab Interpretation (test code = 05272-5) [facility] 01:27:12* Test Item Value Reference Range Interpretation Comme nts Height (test code = 7442074351) 66 in Weight (test code = 0574476105) 255 lbs Systolic BP (test code = 9780138249) 117 mmHg Diastolic BP (test code = 9255135028) 71 mmHg Heart Rate (test code = 6239602599) 93 bpm Ao root diam (test code = 4662619643) 2.80 cm Aortic root (test code = 0851221436) 2.8 cm Ao root annulus (test code = 8161926344) 2.8 cm BSA (test code = 3883452940) 2.22 m2 LVOT diameter (test code = 8710120739) 2.23 cm LVOT area (test code = 2902675040) 3.90 cm2 LA size (test code = 5936578989) 3.1 cm ACS (test code = 2983219400) 2.25 cm LVIDD (test code = 0145775336) 4.20 cm Left Ventricular End Diastolic Volume by Teichholz Method (test code = 2927918) 78.5 mL IVS (test code = 2642072049) 0.86 cm Interventricular Septum Diastolic Thickness by 2D (test code = 7717226) 0.86 cm LVPWD (test code = 2023394994) 0.77 cm PW (test code = 5578131746) 0.77 cm 0.6-1.1 EF(Teich) (test code = 4898820109) 60.00 % LVIDS (test code = 2996542919) 2.90 cm Left Ventricular End Systolic Volume by Teichholz Method (test code = 9049443) 31.4 mL FS (test code = 8374277835) 32 % EF - 2D (test code = 28564119) 60.00 % TR Peak Darek (test code = 1082426033) 275.9 cm/s Triscuspid Valve Regurgitation Peak Gradient (test code = 5408118418) 30.5 mmHg PV PEAK VELOCITY (test code = 7945466249) 104.3 cm/s PV peak gradient (test code = 2249267283) 4.4 mmHg LAV(MOD-sp4) (test code = 7020124777) 28.30 mL MV E-F slope (test code = 9929164571) 47.10 cm/s MV Peak E Darek (test code = 5296047578) 59.7 cm/s MV Peak A Darek (test code = 6787886552) 65.0 cm/s E/A ratio (test code = 1380835003) 0.92 ratio MV valve area p 1/2 method (test code = 0718242000) 4.20 cm2 MV dec slope (test code = 7323149695) 338.50 cm/s2 MV P1/2t max darek (test code = 4124222176) 60.30 cm/s MR max PG (test code = 4844389435) 58.70 mm[Hg] MR max darek (test code = 7712782417) 383.00 cm/s Mr max darek (test code = 7738887024) 383.0 m/s LVOT stroke volume (test code = 9824091404) 79.00 cm3 LVOT peak darek (test code = 4781572727) 128.4 cm/s LVOT mn grad (test code = 3034198147) 2.8 mmHg AV LVOT peak gradient (test code = 5534085729) 6.6 mmHg LVOT peak VTI (test code = 8234126800) 20.2 cm LV V1 mean (test code = 6504753703) 75.70 cm/s Aortic valve mean velocity (test code = 0670224453) 94.9 cm/s Ao peak darek (test code = 2233883517) 158.0 cm/s Ao VTI (test code = 1592405976) 25.8 cm AV area by cont VTI (test code = 3888030109) 3.1 cm2 AV area peak darek (test code = 9112468137) 3.2 cm2 Ao max PG (test code = 6265221455) 10.00 mm[Hg] AV peak gradient (test code = 6626537751) 10.0 mmHg AV valve area (test code = 8257235173) 3.10 cm2 AV mean gradient (test code = 7653179016) 4.3 mmHg LA Volume Index (BP) (test code = 8289276103) 15.3 mL/m2 LA volume (BP) (test code = 0886030694) 33.9 mL LAV(MOD-sp2) (test code = 6495532664) 39.70 mL Radiology Study observation (narrative) (test code = 28215-8) TYRON (test code = TYRON) ?Left?Ventricle: Left [...] 2D, color flow Doppler and spectral Doppler. [facility] SARS-COV-2 ANTIGEN (BINAX NOW)2023-04-03 20:55:00* Test Item Value Reference Range Interpretation Comme [facility] POCT SARS-COV-2 ANTIGEN (test code = 24617-4) Not Detected Not Detected On board controls acceptable with C Line (test code = 3574) Yes TYRON (test code = TYRON) accurate developme nt and interpretation of all internal controls Lab Interpretation (test code = 94004-4) Normal [facility] SARS-COV-2 ANTIGEN (BINAX NOW)2023-03-20 21:30:00* Test Item Value Reference Range Interpretation Comme [facility] POCT SARS-COV-2 ANTIGEN (tavon t code = 75965-7) Not Detected Not Detected On board controls acceptable with C Line (test code = 3574) Yes Lab Interpretation (test cod e = 65708-6) Normal [facility] [id number] 20:54:00* Test Item Value Reference Range Interpretation Comme [facility] POCT PREG (test code = 1605) Negative On board controls acceptable with C Line (test code = 3574) Yes POCT PREG LOT # (test code = 3575) POCT PREG TEST DATE ( test code = 3576) [facility], [id number] 01:04:20* Test Item Value Reference Range Interpretation Comme nts PREG SERUM (test code = 3690389415) Negative TYRON (test code = TYRON) Less than 10 IU/L. ?If low titer or ectopic is suspected, resubmit specimen in 48-72 hours. [facility]. METABOLIC PANEL (53048)2022-02-18 00:59:51* Test Item Value Reference Range Interpretation Comme nts NA (test code = 4987663629) 139 mmol/L 135-145 K (test code = 8314755392) 4.2 mmol/L 3.5-5 CL (test code = 1154272263) 104 mmol/L 98-108 CO2 TOTAL (test code = 8906881953) 27 mmol/L 23-31 AGAP (test code = 5007174857) 2-16 BUN (test code = 4523484425) 9 mg/dL 7-23 GLUCOSE (test code = 4236072530) 95 mg/dL 70-110 CREATININE (test code = 2834532895) 0.78 mg/dL 0.5-1.04 TOTAL BILI (test code = 0219722952) 0.5 mg/dL 0.1-1.1 CALCIUM (test code = 2904132237) 9.2 mg/dL 8.6-10.6 T PROTEIN (test code = 6474916613) 7.6 g/dL 6.3-8.2 ALBUMIN (test code = 6081705385) 4.5 g/dL 3.5-5 ALK PHOS (test code = 6326651066) 65 U/L 34-122 ALTv (test code = 1742-6) 22 U/L 5-35 AST(SGOT) (test code = 3217947079) 23 U/L 13-40 eGFR (test code = 0462958214) mL/min/1.73m2 TYRON (test code = TYRON) Association [...] or urine or abnormalities in imaging tests). [facility] WITH [id number] 00:41:49* Test Item Value Reference Range Interpretation Comme nts WBC (test code = 6690-2) See_Comment [Automated [employer] ge] The system which generated this result transmitted reference range: 4.30 - 11.10 10*3/?L. The reference range was not used to interpret this result as normal/abnormal. RBC (test code = 789-8) See_Comment [Automated [employer] ge] The system which generated this result [...] 33.6 g/dL 31.6-35.1 RDW-SD (test code = 89986-3) 40.7 fL 39-49.9 RDW-CV (test code = 788-0) 12.2 % 12-15.5 PLT (test code = 777-3) See_Comment [Automated [employer] ge] The system which generated this result transmitted reference range: 166 - 358 10*3/?L. The reference range was not used to interpret this result as normal/abnormal. MPV (test code = 55100-9) 9.6 fL 9.5-12.9 NRBC/100 WBC (test code = 6134148352) See_Comment [Automated [employer] ssage] The system which generated this result transmitted reference range: 0.0 - 10.0 /100 WBCs. The reference range was not used to interpret this result as normal/abnormal. NRBC x10^3 (test code = 7885132544) See_Comment [Automated me ssage] The system which generated this result transmitted reference range: 10*3/?L. The reference range was not used to interpret this result as normal/abnormal. GRAN MAT (NEUT) % (test code = 770-8) 37.5 % IMM GRAN % (test code = 9798012910) 0.20 % LYMPH % (test code = 736-9) 50.8 % MONO % (test code = 5905-5) 8.7 % EOS % (test code = 713-8) 2.1 % BASO % (test code = 706-2) 0.7 % GRAN MAT x10^3(ANC) (test code = 9762367796) 2.10 10*3/uL 1.88-7.09 IMM GRAN x10^3 (test code = 5208889153) 0-0.06 LYMPH x10^3 (test code = 731-0) 2.85 10*3/uL 1.32-3.29 MONO x10^3 (test code = 742-7) 0.49 10*3/uL 0.33-0.92 EOS x10^3 (test code = 711-2) 0.12 10*3/uL 0.03-0.39 BASO x10^3 (test code = 704-7) 0.04 10*3/uL 0.01-0.07 [facility]PO[facility] [id number] 00:22:00* Test Item Value Reference Range Interpretation Comme nts POCT PREG (test code = 1605) negative Lab Interpretation (test cod e = 11790-9) Normal [facility] Center[facility] Metabolic [id number] 03:45:37* Test Item Value Reference Range Interpretation Comme nts NA (test code = 2660724125) 140 mmol/L 135-145 K (test code = 0457963402) 3.8 mmol/L 3.5-5.0 CL (test code = 7326331629) 104 mmol/L 98-108 CO2 TOTAL (test code = 3648056856) 24 mmol/L 23-31 AGAP (test code = 0919520224) 2-16 BUN (test code = 9039718666) 12 mg/dL 7-23 GLUCOSE (test code = 5357910237) 94 mg/dL 70-110 CREATININE (test code = 3353485771) 0.92 mg/dL 0.50-1.04 TOTAL BILI (test code = 7247172240) 1.0 mg/dL 0.1-1.1 CALCIUM (test code = 5977788606) 8.9 mg/dL 8.6-10.6 T PROTEIN (test code = 5927999588) 8.1 g/dL 6.3-8.2 ALBUMIN (test code = 4841849411) 4.8 g/dL 3.5-5.0 ALK PHOS (test code = 9469964673) 68 U/L 34-122 ALTv (test code = 1742-6) 19 U/L 5-35 AST(SGOT) (test code = 9553462420) 32 U/L 13-40 eGFR (test code = 4892328086) mL/min/1.73m2 TYRON (test code = TYRON) Association [...] or urine or abnormalities in imaging tests). [facility] CenterLip[facility], [id number] 03:44:57* Test Item Value Reference Range Interpretation Comme nts LIPASE (test code = 0237359156) 64 U/L 0-220 Lab Interpretation (test cod e = 91919-4) Normal [facility] CenterCB with [id number] 03:36:15* Test Item Value Reference Range Interpretation Comme nts WBC (test code = 6690-2) See_Comment [Automated [employer] ge] The system which generated this result transmitted reference range: 4.30 - 11.10 10*3/?L. The reference range was not used to interpret this result as normal/abnormal. RBC (test code = 789-8) See_Comment [Automated [employer] ge] The system which generated this result [...] 33.9 g/dL 31.6-35.1 RDW-SD (test code = 73382-0) 39.5 fL 39.0-49.9 RDW-CV (test code = 788-0) 11.7 % 12.0-15.5 L PLT (test code = 777-3) See_Comment [Automated [employer] ge] The system which generated this result transmitted reference range: 166 - 358 10*3/?L. The reference range was not used to interpret this result as normal/abnormal. MPV (test code = 81339-3) 9.2 fL 9.5-12.9 L NRBC/100 WBC (test code = 0699849067) See_Comment [Automated me ssage] The system which generated this result transmitted reference range: 0.0 - 10.0 /100 WBCs. The reference range was not used to interpret this result as normal/abnormal. NRBC x10^3 (test code = 9257978925) <0.01 See_Comment [Automated messa ge] The system which generated this result transmitted reference range: 10*3/?L. The reference range was not used to interpret this result as normal/abnormal. GRAN MAT (NEUT) % (test code = 770-8) 42.4 % IMM GRAN % (test code = 3764965814) 0.80 % LYMPH % (test code = 736-9) 45.8 % MONO % (test code = 5905-5) 9.7 % EOS % (test code = 713-8) 0.5 % BASO % (test code = 706-2) 0.8 % GRAN MAT x10^3(ANC) (test code = 0494181149) 2.62 10*3/uL 1.88-7.09 IMM GRAN x10^3 (test code = 9038647489) 0.05 10*3/uL 0.00-0.06 LYMPH x10^3 (test code = 731-0) 2.83 10*3/uL 1.32-3.29 MONO x10^3 (test code = 742-7) 0.60 10*3/uL 0.33-0.92 EOS x10^3 (test code = 711-2) 0.03 10*3/uL 0.03-0.39 BASO x10^3 (test code = 704-7) 0.05 10*3/uL 0.01-0.07 Lab Interpretation (test code = 48270-2) Abnormal [facility]PO[facility] [id number] 03:18:00* Test Item Value Reference Range Interpretation Comme nts POCT PREG (test code = 1605) negative On board controls acceptable with C Line (test code = 3574) positive POCT PREG LOT # (test code = 3575) [id number] POCT PREG TEST DATE ( test code = 3576) 05-09-2023 Lab Interpretation (test cod e = 51042-8) Normal [facility] History and Physical Notes Date/Time [...] TLH/BS/Cysto as planned. Accompanied by her Andrew cruz. All questions answered. 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 Tobacco Use Smoking status: Every Day [...] op Jarrod Mercado MD 08/13/2023 2:37 PM [place] Procedure Notes Date/Time Note Provider Source 2023-09-02 18:30:29 Procedure(s): LAPAROSCOPIC TOTAL ABDOMINAL HYSTERECTOMY; LAPAROSCOPIC SALPINGECTOMY; CYSTOSCOPY Pre-Procedure Diagnose(s): Abnormal uterine bleeding Post-Procedure Diagnose(s): Abnormal uterine bleeding; Status post hysterectomy; Status post bilateral salpingectomy; Status post cystoscopy TOTAL LAPAROSCOPIC HYSTERECTOMY Procedure: Total Laparoscopic Hysterectomy, bilateral salpingectomy, and cystoscopy Date of Service: 09/02/2023 Faculty Surgeon: Jarrod Mercado MD Supervisor Pyrotechnic Loading Surgeon: Jonathon Braun MD (no qualified resident [...] condition. Jarrod Mercado MD 09/02/2023 6:32 PM [place] Notes Date/Time Note Provider Source 2024-03-10 09:51:06 [...] by Cheikh Boyle MD Provider Review Required Wvhxxk6603/09/2024 07:44 PM Protocol Details This refill cannot be delegated Valid encounter within last 12 months To be filled at: [facility] - [address], [place] Last Refilled: 08/17/2020 Recent Visits Date Type Provider Dept 08/19/23 Office Visit Cheikh Boyle MD [facility] 05/13/23 Office Visit Cheikh Boyle MD [facility] 04/01/23 Office Visit Cheikh Boyle MD [facility] Showing recent visits within past 540 days with a meds authorizing provider and meeting all other requirements Future Appointments No visits were found meeting these conditions. Showing future appointments within next 150 days with a meds authorizing provider and meeting all other requirements Camelia Franks MA [facility] 2023-12-28 14:01:43 Addended by: PROMISE MULLEN RPH on: 12/28/2023 02:01 PM Modules accepted: Orders [facility] 2023-12-22 09:14:54 12/21: First attempt to contact Virgie Fruasto to remind to complete SVR12 labs. No answer. Left voicemail asking patient to return call to clinical pharmacist at [phone]. If no return call from patient, will attempt again at a later date. 12/27: Second attempt to contact Virgie Frausto to remind to complete SVR12 labs. No answer. Left voicemail asking patient to return call to clinical pharmacist at [phone]. If no return call from patient, will attempt again at a later date. Additionally, sent [employer] message. 01/05: Third attempt to contact Virgie Frausto to remind to complete SVR12 labs. No answer. Left voicemail asking patient to return call to clinical pharmacist at [phone]. If no return call from patient, will attempt again at a later date. [employer] message read, but no response. Promise Mullen PharmD Clinical Pharmacist - GI/Hepatology [phone] Promise Mullen RPH [facility] 2023-12-03 23:30:37 53 dB. Hearing loss is not measured in percentages. If there are any questions pt. Should schedule an appt. To discuss. BRIDGET-OTOLARYNGOLOGY STAFF [facility] 2023-10-19 14:22:30 Virgie Frausto is a 38 year old female Pt called requesting to discuss with clinic and have forms of hospital uploaded to [employer] from hospital visit on 09/02/23. Stated that she was not able to find any documentation on chart. Please advise. Jaspreet I Bret [facility] 2023-09-24 11:18:02 Patient Reassessment: Hepatitis C Therapy [...] SARS-COV-2 COVID 19 ALLY SUCROSE VACCINE 12+, 2597-6896, 0.3 ML (30 MCG), IM PFIZER (TRAN [...] calcium containing agents before consulting with the artificial leather calender operator or hepatology clinical pharmacist. Drug Interactions: There [...] deemed appropriate. Patient receives their medication from [facility]. Safety Precautions: status: female - of [...] encouraged to call the hepatology pharmacist at [phone] with questions. The patient will be contacted to complete another reassessment in 1 month. Promise Mullen PharmD Clinical Pharmacist - GI/Hepatology [phone] [place] 2023-09-16 13:37:55 Notified patient of covid test results. Pt voiced understanding with no further concerns at this time O SURVEILLANCE TECHNICIAN Gabbi Rubi RN [facility] 2023-09-08 11:05:[address] Mercado: [10:48 AM] [...] Also talk to her about Medicaid transportation. [employer] message sent. CARLOTTA ROSADO RN 09/08/2023 11:05 AM CARLOTTA ROSADO RN 09/08/2023 11:05 AM O SURVEILLANCE TECHNICIAN Carlotta Rosado RN [facility] 2023-09-08 10:17:17 Pt stated that her pain goes down to a 4 and when it Tylenol/Ibuprofen wears off- it goes to a 7. Explained to pt that she will have some pain after procedure. I will let Dr. Mercado know and will call her back. No drainage or redness at incision sites. Verbalized understanding. CARLOTTA ROSADO RN 09/08/2023 10:24 AM [place] 2023-09-07 15:16:29 [employer] message sent. CARLOTTA ROSADO RN 09/07/2023 3:16 PM O SURVEILLANCE TECHNICIAN Carlotta Rosado RN [facility] 2023-09-04 17:15:39 @226[facility] on for pt to return call. CARLOTTA RSOADO RN 09/04/2023 5:16 PM [place] 2023-09-04 16:23:18 Patient states she is taking the tylenol and ibuprofen and it is not helping. She was told by the nurse to call back today for a follow up. [facility]/pharmacy #[id number] AT [facility] FINA Merritt [facility] 2023-09-03 16:23:50 Name and verified. Per Dr. Belcher: reassured her that her surgery was uncomplicated. Make sure she ambulated so she can minimized gas pain. Take her gas-X BID. Take Ibuprofen with Tylenol 500 mg Q 6 hrs if needed. Take Osyka only PRN Verbalized understanding. CARLOTTA ROSADO RN 09/03/2023 4:24 PM O SURVEILLANCE TECHNICIAN Carlotta Rosado RN [facility] 2023-09-03 16:12:05 Name and verified. pt called stating that she is in a lot of pain and feels that Osyka # 4 is not enough. Pt last [...] advised. CARLOTTA ROSADO RN 09/03/2023 4:12 PM [place] 2023-09-03 15:02:51 Pt is calling back says she in pain and want to make sure she has enough pain meds so want to discuss, had hysterectomy yesterday. [facility] Nata Perdomo [facility] 2023-09-03 13:00:35 Pt want to discuss pain meds that were prescribed says it will not be enough to get her through her pain. Had surgery yesterday. [place] 2023-09-03 08:00:00 Incision sites x [address] Mercado; pt instructed to sponge bathe for the next few days and remove drsgs once she showers and drsgs get wet; Understanding verbalized [facility] Kaley Alonzo RN [facility] 2023-09-03 08:00:[address] Mercado; Instructed by Dr Mercado NO tampons, douching, sex, tub baths, swimming, or lifting more than 10lbs; Understanding Verbalized [place] 2023-09-02 17:00:02 CALLED AND UPDATED PT'S WILBERT BHARAT, AT 1701. - TOLU GONZALES. O SURVEILLANCE TECHNICIAN Sean Maurice RN [facility] 2023-09-01 16:11:36 Patient dropped of pre op clearance form from PCP. Clearance form given to Dr. eMrcado. Dr. Mercado states she will perform the scheduled surgery tomorrow 09/02/2023. Camelia Lew with surgery scheduling advised. Patient given number to contact pre op nurse for pre op instructions. Ulices Adler RN 09/01/2023 4:12 PM [place] 2023-09-01 12:52:20 Pt called. She will berry picker last OV with Dr. Mercado and Dr. Hall with lab results to take with her PCP appt today at 3pm. Advised pt to fill out a KULDIP and when her appt is done, she must come by office to either drop off clearance or cancel her procedure. Verbalize understanding. CARLOTTA ROSADO RN 09/01/2023 12:54 PM O SURVEILLANCE TECHNICIAN Carlotta Rosado RN [facility] 2023-09-01 11:39:17 Pt called. [facility] [phone]. They need to know what exactly needs to be done. If we have a form. Called office. Explained to them that we do not have a form. That she must be cleared by today to have surgery tomorrow. Office stated that they will call pt. CARLOTTA ROSADO RN 09/01/2023 11:42 AM [place] 2023-09-01 09:59:32 Pt called office. Pt stated that she fired Dr. Hernandez has her PCP. Advised pt that she must be cleared by a PCP before surgery to be done. Explained the importance of having clearance and her recovery. Pt stated that she will find a PCP and get cleared today and will call us back. Dr. Mercado advised. Quality Control/Data Warehousing Specialist also advised. [place] 2023-09-01 09:15:00 Images from the original note [...] [place] [facility] per lab order on 09/01/2023 : LT BLUE SST 1 RED LAV 3 PPT DK GREEN (LiHep) DK GREEN (SodH) TRAN DK BLUE (K2) DK BLUE (S) ACD Blood Culture NIPT/NTD [place] 2023-09-01 09:15:00 Addended by: WILLIAMS NEGRO on: 09/01/2023 01:19 PM Modules accepted: Orders [facility] Williams Negro [facility] 2023-09-01 08:59:[address] Mercado- Unfortunately, she [...] advised. CARLOTTA ROSADO RN 09/01/2023 9:04 AM [place] 2023-09-01 07:52:08 Pt want to make sure clinic received her clearance for surgery from her other physicians. FINA Perdomo [facility] 2023-08-31 13:11:37 Patient Reassessment: Hepatitis C Therapy [...] SARS-COV-2 COVID 19 ALLY SUCROSE VACCINE 12+, 7549-7398, 0.3 ML (30 MCG), IM PFIZER (TRAN [...] calcium containing agents before consulting with the artificial leather calender operator or hepatology clinical pharmacist. Drug Interactions: There [...] deemed appropriate. Patient receives their medication from [facility] Pharmacy. Safety Precautions: status: female - of [...] encouraged to call the hepatology pharmacist at [phone] with questions. The patient will be contacted to complete another reassessment in 1 month. Promise Mullen PharmD Clinical Pharmacist - GI/Hepatology [phone] [facility] Promise Mullen [facility] 2023-08-31 09:53:47 Images from the original note were not included. Your procedure is at [facility] on 09/02/23. The address is [address] [place] [address], [id number]. [facility] nursing staff will call you the workday [...] voiced no further questions at this time. [place] 2023-08-28 08:43:12 First attempt to contact Virgie Frausto to verify compliance and assess tolerance of her specialty medication, Mavyret. No answer. Left voicemail asking patient to return call to clinical pharmacist at [phone]. If no return call from patient, will attempt again at a later date. Promise Mullen PharmD Clinical Pharmacist - GI/Hepatology [phone] O SURVEILLANCE TECHNICIAN Promise Mullen [facility] 2023-08-27 14:50:08 Would recommend to await Dr. Boyle's return Please let patient know O SURVEILLANCE TECHNICIAN [employer]CREW[employer] OPERATOR-FAMILY MIDLEVEL PROVIDER [facility] 2023-08-27 14:10:41 Per patient, During OV with Dr. Boyle informed her if she can't get seen for psychiatrist she'll be cleared based on lab results come back normal. Patient is needing a clearance for surgery for Dr. Mercado. O SURVEILLANCE TECHNICIAN Malena Rey MA [facility] 2023-08-27 13:42:59 Pcp sent referral for psychiatry and psychological eval . Pending that. Noted in chart for its for Hysterectomy. To follow up on that ER [facility]-FAMILY MEDICINE STAFF [facility] 2023-08-27 11:01:07 Patient is needing clearance for surgery. FINA Rey MA [facility] 2023-08-27 10:25:21 CBC which looks at blood count looks relatively stable. No concern Cmp which looks at kidney, liver and electrolytes looks okay. [facility] 2023-08-26 13:21:11 Please view labs for patient, patient is wanting lab results due to having procedure on 09-02-2023 O SURVEILLANCE TECHNICIAN Malena Rey MA [facility] 2023-08-21 07:43:25 Spoke with patient and informed her labs have not been reviewed yet by Dr. Boyle. Once they have been reviewed we will give her a call with results. Patient understood and has no further questions. O SURVEILLANCE TECHNICIAN Malena Rey MA [facility] 2023-08-20 11:17:34 Virgie Frausto is a 38 year old female Patient called stating that she had labs done on 08/19 and would like someone to give her a call to explain those results and to make sure there is not going to be any affect for her surgery that is coming up on 09/02 Please advise O SURVEILLANCE TECHNICIAN Harsh Garcia [facility] 2023-08-19 16:30:00 Images from the original note [...] [place] [facility] per lab order on 08/19/2023 : LT BLUE 1 SST RED 1 LAV 1 PPT DK GREEN (LiHep) DK GREEN (SodH) TRAN DK BLUE (K2) DK BLUE (S) ACD Blood Culture NIPT/NTD [place] 2023-08-12 13:13:38 Patient Reassessment: Hepatitis C Therapy [...] tablets by mouth in the morning. 07/24/23 AkikoTaiwo gonzalez, FERN dicyclomine 20 mg tablet Take 1 tablet [...] calcium containing agents before consulting with the artificial leather calender operator or hepatology clinical pharmacist. Drug Interactions: There [...] deemed appropriate. Patient receives their medication from [facility] Pharm[facility]. Safety Precautions: status: female - of [...] encouraged to call the hepatology pharmacist at [phone] with questions. The patient will be contacted to complete another reassessment in 1 month. Promise Mullen PharmD Clinical Pharmacist - GI/Hepatology [phone] FINA Mullen [facility] 2023-08-12 10:42:47 First attempt to contact Virgie Frausto to verify compliance and assess tolerance of her specialty medication, Mavyret. No answer. Left voicemail asking patient to return call to clinical pharmacist at [phone]. If no return call from patient, will attempt again at a later date. Promise Mullen PharmD Clinical Pharmacist - GI/Hepatology [phone] FINA Mullen [facility] 2023-07-24 13:49:19 Initial Assessment: Hepatitis C [...] interaction identified. Patient will receive treatment from [facility] Pharmacy. Start date: 08/03/23 Anticipated end date: [...] Promise Mullen PharmD Clinical Pharmacist - GI/Hepatology [phone] FINA Mullen [facility] 2023-07-24 13:45:19 Patient Education: Hepatitis C Therapy [...] and calcium containing agents before consulting with artificial leather calender operator or hepatology clinical pharmacist. Drug-drug and drug-food interactions with the new therapy were assessed and reviewed with the patient. Appropriate recommended vaccinations were reviewed and discussed with the patient. Pharmacy Information: The patient was notified that their medication will be filled at [facility]. The patient was instructed to notify their clinic nurse coordinator by phone at [phone] when they receive their medication to coordinate [...] encouraged to call the hepatology pharmacist at [phone] with any questions. The patient will be contacted within 21 days after initiation of therapy for a complete medication assessment. Promise Mullen PharmD Clinical Pharmacist - GI/Hepatology [phone] O SURVEILLANCE TECHNICIAN [facility] 2023-04-28 15:51:58 Formatting of this n ote might be different from the original. Pt requesting refill. Varsha Garcia RN [facility] 2023-04-22 08:25:36 Formatting of this n ote might be different from the original. No further action needed. Malena Rey MA [facility] 2023-04-22 08:24:57 Formatting of this n ote might be different from the original. No further action needed. Malena Rey MA [facility] 2023-04-21 17:57:48 Formatting of this n ote might be different from the original. Referral/Consult Hep C w/o coma, chronic - Alternative therapy sent to [facility] pharmacy - Consult/Referral Clinical Cotton Grader [facility] 2023-04-21 17:15:42 Formatting of this n ote is different from the original. Alternative Medication Hep C w/o coma, chronic - Alternative Rx sent, let patient know, and to follow-up as scheduled. - sofosbuvir-velpatasvir (EPCLUSA) 400-100 mg; Take 1 tablet by mouth in the morning. Dispense: 84 tablet; Refill: 0 Cheikh Boyle MD, MPH Supervisor [employer], Department of Family Medicine [facility] 04/21/2023 5:16 PM Future Appointments In 1 week Nurse, [facility] In 2 weeks Cheikh Boyle MD [facility], [facility] 2023-04-21 16:06:22 Summary: PA denial Images from [...] to me. Thank you. Juan M Faria [facility] 2023-04-21 11:23:27 Formatting of this n ote might be different from the original. Pt is calling wanting update on med alternative. Nata Perdomo [facility] 2023-04-20 15:26:40 Formatting of this n ote might be different from the original. Spoke with [facility] pharmacy. PA denied for Mavyret, Epclusa is preferred alternative. Can you please change rx to Epclusa? Thank You! Sonal Espinoza RN [facility] 2023-04-14 11:17:57 Formatting of this n ote might be different from the original. Pt called and states that medication is needing a prior authorization. Please advise. glecaprevir-pibrentasvir (MAVYRET) 100-40 mg Steph Pollard [facility] 2023-03-30 17:06:36 Formatting of this n ote [...] Refusal: Patient needs appointment Blanka Moss LVN [facility] 2023-03-30 16:59:54 Message from [employer] : Refills have been requested for the following medications: topiramate 50 mg tablet [Thierno Bueno] Preferred pharmacy: [id number] Delivery method: Pickup Medication renewals requested in this message routed separately: carBAMazepine 400 mg 12 hr tablet [Cheikh Boyle] doxepin 50 m g capsule [Cheikh Boyle] buPROPion SR (WELLBUTRIN SR) 150 mg SR tablet [Cheikh Boyle] [facility] 2023-03-27 14:08:05 Formatting of this n ote [...] er warnings given. ER visit at [facility] on 03/25- pt reports that [...] Thursday. Pt verbalizes understanding. Sonal Espinoza RN [facility] 2023-03-26 20:13:24 Formatting of this n ote might be different from the original. Informed pt per provider she needs to go to the er. Mary Ellen Molina MA [facility] 2023-03-26 19:54:03 Formatting of this n ote might be different from the original. Please advise [facility] 2023-03-26 16:52:04 Formatting of this n ote might be different from the original. Patient would like a nurse to call her. She is in a lot of pain. Candace Last [facility] 2023-03-26 12:14:32 Formatting of this n ote might be different from the original. Mchart message sent. CARLOTTA ROSADO RN 03/26/2023 12:14 PM Carlotta Rosado RN [facility] 2023-03-26 11:05:17 Formatting of this n ote might be different from the original. Pt called and states that she is taking Naproxen and Tylenol. She states that medication isn't working and is requesting to speak with a nurse to possibly get something called in. She tried getting sooner appointment, but there were no sooner available times. Please advise. Call back number: [phone] Steph Pollard [facility] 2023-03-25 16:09:03 Formatting of this n ote might be different from the original. Contacted patient. Patient states she is currently at ER. Patient advised to contact us for any f/u needed after visit. Ulices Adler RN 03/25/2023 4:09 PM Ulices Adler RN [facility] 2023-03-25 09:58:02 Formatting of this n ote might be different from the original. Attempted to contact patient. No answer, unable to leave VM. VM is full. Ulices Adler RN 03/25/2023 9:58 AM [facility] 2023-03-24 16:34:23 Formatting of this n ote might be different from the original. Attempted to contact patient. No answer, VM left. Ulices Adler RN 03/24/2023 4:34 PM [facility] 2023-03-24 16:16:03 Formatting of this n ote [...] a nurse. Please advise. Call back number: [phone] Steph Pollard [facility] 2020-04-10 13:49:46 Received erx refill request for: Requested Prescriptions Pending Prescriptions Disp Refills topiramate 25 mg tablet 120 tablet 2 Sig: Take 1 tablet by mouth 2 (two) times daily. For 5 days, then 2 PO BID. Last filled: topiramate 25 mg tablet 120 tablet 2 10/25/2019 Follow up scheduled for : Not scheduled yet Last office visit: 10-25-19-Topiramate 25 mg bid for 5 days followed by 50 mg bid Refilled approval sent to: [id number] - [place], [place] - [address] [facility] [address] [facility] [id number] Refilled per Guidelines T [facility]
[2024-12-07 16:34] LABS: Specific Gravity 1.013 (1.005-1.030); Urine Bacteria None Seen /HPF (<20); Urine Bilirubin NEGATIVE (Negative); Urine Blood Trace (Negative); Urine Clarity Turbid (Clear); Urine Color Light-Yellow (Yellow); Urine Culture Reflex Order NOT NEEDED; Urine Glucose NEGATIVE (Negative); Urine Ketones NEGATIVE (Negative); Urine Microscopic Reflex YN ORDER UMIC; Urine Nitrite NEGATIVE (Negative); Urine Protein NEGATIVE (Negative); Urine Urobilinogen 1+ (Normal); Urine WBC <5 /HPF (<5); Urine pH 6.5 (5.0-7.0)
[2024-12-07 16:37] LABS: Specific Gravity 1.013 (1.005-1.030)
[2024-12-07 16:51] LABS: Absolute Basophils 0.1 K/uL (0-0.5); Absolute Eosinophils 0.1 K/uL (0-0.5); Absolute Lymphocytes (CBC) 3.8 K/uL (0.7-4.9); Absolute Monocytes 0.5 K/uL (0.1-1.3); Absolute Neutrophil 2.6 K/uL (1.8-8.0); Eosinophils % 1.6 % (0-4.4); Hematocrit 38.4 % (36.0-45.0); Hemoglobin 13.3 g/dL (12.0-15.0); Lymphocytes % 53.7 % (15.3-44.8); MCH 30.6 pg (27.0-35.0); MCHC 34.5 g/dL (32.0-36.0); MCV 88.5 fL (80-100); MPV 7.7 fL (7.6-11.3); Monocytes % 6.6 % (3.3-12.3); Neutrophils % 37.1 % (41.7-73.7); Nucleated Red Blood Cells % 0.1 % (0-0); Platelets 313 thou/uL (152-406); RBC Red Blood Cell Count 4.34 M/uL (3.86-4.86); Red Cell Distribution Width 12.6 % (12.1-15.2)
[2024-12-07] MEDS ORDERED: KETOROLAC 30 MG/ML INJ ONE (17:48)
--- NOTE | 2024-12-07 18:53 | RAD REPORT ---
EXAMINATION: CT ABDOMEN AND PELVIS WITH CONTRAST CLINICAL INDICATION: ABD PAIN TECHNIQUE: CT abdomen and pelvis was performed, after the administration of IV contrast, as per [facility] protocol. Axial, sagittal and coronal reconstructions were obtained. One or more of the following dose reduction techniques were used: Automated exposure control, adjustment of the mA and k V according to patient size, and iterative reconstruction. Unless otherwise specified, incidental findings do not require dedicated imaging follow-up. COMPARISON: 03/25/2023 FINDINGS: LOWER CHEST: The visualized lung bases are clear. LIVER: Normal in size and contour. No focal lesion. Grossly unremarkable gallbladder. SPLEEN: Normal size. No focal lesion. PANCREAS: No mass, ductal dilation, or argenis-pancreatic fluid. ADRENALS: Normal; no mass. KIDNEYS: Normal size and contour. No hydronephrosis. GASTROINTESTINAL TRACT: No evidence of free air, significant intra-abdominal free fluid, bowel obstru ction or abscess. APPENDIX: Normal appendix. LYMPH NODES: No lymphadenopathy. MUSCULOSKELETAL: No acute or suspicious osseous abnormality. ADDITIONAL FINDINGS: None. IMPRESSION: No acute or concerning abnormalities seen in the abdomen or pelvis.
[2024-12-07 19:00] LABS: Albumin 3.5 g/dL (3.4-5.0); Albumin/Globulin Ratio 0.8 (1.1-1.8); Anion Gap 7.6 mEq/L (5.0-15.0); Bilirubin Total 0.3 mg/dL (0.2-1.0); Globulin 4.4 g/dL (2.3-3.5); Potassium 3.6 mEq/L (3.5-5.1); Protein, Total 7.9 g/dL (6.4-8.2)
--- NOTE | 2024-12-07 19:05 | ER ---
Nurse's Notes [facility] Name: Alie Gee Age: 39 yrs Sex: Female : 1985 Arrival Date: 12/07/2024 Time: 14:24 Bed 11 Private MD: Diagnosis: Abdominal pain, Generalized Presentation: 12/07 14:53 Chief complaint: Patient states: i came here a month ago , started having lower abd iw pain , last time they said there was blood in her urine, she denies any pain or burning with urination , the pain radiates from right and left side. Coronavirus screen: At this time, the client does not indicate any symptoms associated with coronavirus-19. Ebola Screen: No symptoms or risks identified at this time. Initial Sepsis Screen: Does the patient meet any 2 criteria? No. Patient's initial sepsis screen is negative. Does the patient have a suspected source of infection? No. Patient's initial sepsis screen is negative. Risk Assessment: Do you want to hurt yourself or someone else? Patient reports no desire to harm self or others. Onset of symptoms was December 07, 2024. 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 - Infectious Disease History:: Denies. - Social history:: Smoking status: Patient reports the use of cigarette tobacco products, Reported history of juuling and/or vaping. Screenin:48 [facility] ED Fall Risk Assessment (Adult) History of falling in the last 3 months, ph including since admission No falls in past 3 months (0 pts) Confusion or Disorientation No (0 pts) Intoxicated or Sedated No (0 pts) Impaired Gait No (0 pts) Mobility Assist Device Used No (0 pt) Altered Elimination No (0 pt) Score/Fall Risk Level 0 - 2 = Low Risk Oriented to surroundings, Maintained a safe environment, Hourly rounding (assess needs \T\ fall precautionary measures) done. Abuse screen: Denies threats or abuse. Denies injuries from another. Nutritional screening: No deficits noted. Tuberculosis screening: No symptoms or risk factors identified. Assessment: 11:00 General: Appears in no apparent distress. comfortable, Behavior is calm, cooperative, ph appropriate for age. Pain: Complains of pain in suprapubic area, right lower quadrant and left lower quadrant. Neuro: Level of Consciousness is awake, alert, obeys commands, Oriented to person, place, time, situation. Cardiovascular: Capillary refill < 3 seconds in bilateral fingers Patient's skin is warm and dry. Respiratory: Airway is patent Respiratory effort is even, unlabored, Respiratory pattern is regular, symmetrical. GI: Abdomen is non-distended, Bowel sounds present X 4 quads. Abd is soft X 4 quads Reports lower abdominal pain, Patient currently denies nausea, vomiting. : Reports pain in suprapubic area Denies burning with urination, urinary frequency. Derm: Skin is pink, warm \T\ dry. 16:29 Reassessment: No changes from previously documented assessment. Patient and/or family ll1 updated on plan of care and expected duration. Pain level reassessed. 19:45 General: Appears in no apparent distress. comfortable, Behavior is calm, cooperative. kb3 Pain: Complains of pain in suprapubic area. : Reports Blood in urine Denies burning with urination, urinary frequency, urgency. Vital Signs: 14:53 BP 128 / 88; Pulse 78; Resp 16; Temp 98.4; Pulse Ox 100% on R/A; Weight 108.86 kg; iw Height 5 ft. 6 in. ; Pain 8/10; 17:30 BP 127 / 86; Pulse 71; Resp 18; Pulse Ox 100% on R/A; ph 19:45 BP 125 / 85; Pulse 75; Resp 18; Pulse Ox 100% ; kb3 14:53 Body Mass Index 38.74 (108.86 kg, 167.64 cm) iw 14:53 Pain Scale: Adult iw ED Course: 14:28 Patient arrived in ED. im 14:38 Kassi Mcdonnell MD is Attending Physician. gb1 14:56 Triage completed. iw 14:56 Arm band placed on. iw 16:29 Patient placed in an exam room, on a stretcher. ll1 16:29 CBC with Diff Sent. bc6 16:29 CMP Sent. bc6 16:29 Lipase Sent. bc6 16:29 Test, Urine Sent. bc6 16:29 Urinalysis w/ reflexes Sent. bc6 16:29 Initial lab(s) drawn, by me, sent to lab. Urine collected: clean catch specimen, bc6 cloudy. Inserted saline lock: 20 gauge in right antecubital area, using aseptic technique. Blood collected. Flushed with 10 mL NS. 16:32 Shayy Baires, RN is Primary Nurse. ph 18:47 CT Abd/Pelvis - IV Contrast Only In Process Unspecified. EDMS 18:48 No provider procedures requiring assistance completed. Repeat lab(s) drawn. by me, sent ph to lab. Inserted saline lock: 22 gauge in left antecubital area, using aseptic technique. Blood collected. Flushed with 10 mL NS. 18:49 Patient has correct armband on for positive identification. Bed in low position. Call ph light in reach. Side rails up X 1. Pulse ox on. NIBP on. Door closed. Noise minimized. Warm blanket given. Pillow given. 19:45 Provided Education on: Follow up with PCP, GI, assembler final as needed. . kb3 19:45 IV discontinued, intact, bleeding controlled, No redness/swelling at site. kb3 Administered Medications: 18:01 Drug: Ketorolac IVP 30 mg IVP once Route: IVP; Site: right antecubital; ph 18:46 Follow up: Response: No adverse reaction ph Medication: 18:49 VIS not applicable for this client. ph Outcome: 19:04 Discharge ordered by . alonso 20:00 Discharged to home ambulatory, with family, michael 20:00 Condition: stable kb3 20:00 Discharge instructions given to patient, Instructed on discharge instructions, follow up and referral plans. medication usage, Demonstrated understanding of instructions, follow-up care, medications, Prescriptions given X 1, 20:11 Patient left the ED. kb3 Signatures: Dispatcher [employer] EDMS Eligio Verma MD MD cha Williams, Irene, RN TOLU Shayy Baires RN RN ph Good Shi RN RN ll1 Charla Romero RN RN 3 Shruti [facility] Charis Vasquez Gina, MD MD gb1
--- NOTE | 2024-12-07 19:05 | EDPHYS ---
Physician Documentation [facility] Name: Alie Gee Age: 39 yrs Sex: Female : 1985 Arrival Date: 12/07/2024 Time: 14:24 Bed 11 Private MD: ED Physician Kassi Mcdonnell HPI: 12/07 17:19 This 39 yrs old Black Female presents to ER via Ambulatory with complaints of Urinary gb1 Problem, Abdominal Pain. 17:19 39-year-old female -E[place] with generalized abdominal pain. She has a history gb1 of bipolar disorder, schizophrenia and last year had a partial hysterectomy. Patient also has a history of Barber cirrhosis. She denies nausea vomiting or diarrhea she denies any fever, chest pain shortness of breath or chills. She denies any cough. She denies any vaginal bleeding or discharge. She states that her urine has a foul smell to it.. [employer]: 14:56 LMP N/A - Hysterectomy, Not iw Historical: - Allergies: 14:56 NKA; iw - PMHx: 14:56 Bipolar disorder; Heart Murmur; Schizophrenia; iw - PSHx: 14:56 section; x3; Ligation of fallopian tube; Total abdominal hysterectomy; iw - Immunization history:: Adult Immunizations not up to date. - Infectious Disease History:: Denies. - Social history:: Smoking status: Patient reports the use of cigarette tobacco products, Reported history of juuling and/or vaping. Exam: 17:19 Constitutional: This is a well developed, well nourished patient who is awake, alert, gb1 and in no acute distress. Head/Face: Normocephalic, atraumatic. Eyes: Pupils equal round and reactive to light, extra-ocular motions intact. Lids and lashes normal. Conjunctiva and sclera are non-icteric and not injected. Cornea within normal limits. Periorbital areas with no swelling, redness, or edema. ENT: Nares patent. No nasal discharge, no septal abnormalities noted. Tympanic membranes are normal and external auditory canals are clear. Oropharynx with no redness, swelling, or masses, exudates, or evidence of obstruction, uvula midline. Mucous membranes moist. Neck: Trachea midline, no thyromegaly or masses palpated, and no cervical lymphadenopathy. Supple, full range of motion without nuchal rigidity, or vertebral point tenderness. No Meningismus. Chest/axilla: Normal chest wall appearance and motion. Nontender with no deformity. No lesions are appreciated. Cardiovascular: Regular rate and rhythm with a normal S1 and S2. No gallops, murmurs, or rubs. Normal PMI, no JVD. No pulse deficits. Respiratory: Lungs have equal breath sounds bilaterally, clear to auscultation and percussion. No rales, rhonchi or wheezes noted. No increased work of breathing, no retractions or nasal flaring. Abdomen/GI: Soft, non-tender, with normal bowel sounds. No distension or tympany. No guarding or rebound. No evidence of tenderness throughout. Back: No spinal tenderness. No costovertebral tenderness. Full range of motion. Skin: Warm, dry with normal turgor. Normal color with no rashes, no lesions, and no evidence of cellulitis. MS/ Extremity: Pulses equal, no cyanosis. Neurovascular intact. Full, normal range of motion. Neuro: Awake and alert, GCS 15, oriented to person, place, time, and situation. Cranial nerves II-XII grossly intact. Motor strength 5/5 in all extremities. Sensory grossly intact. Cerebellar exam normal. Normal gait. Vital Signs: 14:53 BP 128 / 88; Pulse 78; Resp 16; Temp 98.4; Pulse Ox 100% on R/A; Weight 108.86 kg; iw Height 5 ft. 6 in. ; Pain 8/10; 17:30 BP 127 / 86; Pulse 71; Resp 18; Pulse Ox 100% on R/A; ph 19:45 BP 125 / 85; Pulse 75; Resp 18; Pulse Ox 100% ; kb3 14:53 Body Mass Index 38.74 (108.86 kg, 167.64 cm) iw 14:53 Pain Scale: Adult iw MDM: 15:04 Medical Screening Exam initiated gb1 17:19 Data reviewed: vital signs, nurses notes, lab test result(s). ED course: 39-year-old gb1 female with frequency of urination and abdominal tenderness for the last 2 weeks. No focal signs of peritonitis I doubt acute appendicitis or diverticulitis. I doubt at this time cholecystitis. Patient does have a history of Barber cirrhosis so I will evaluate her biliary tree and duct system with a CT of the abdomen and pelvis.. 12/07 14:38 Order name: CBC with Diff; Complete Time: 17:14 gb1 12/07 14:38 Order name: CMP; Complete Time: 19:03 gb1 12/07 14:38 Order name: Lipase; Complete Time: 19:03 gb1 12/07 14:38 Order name: Test, Urine; Complete Time: 17:14 gb1 12/07 14:38 Order name: Urinalysis w/ reflexes; Complete Time: 17:14 gb1 12/07 17:15 Order name: CT Abd/Pelvis - IV Contrast Only; Complete Time: 19:03 gb1 12/07 14:38 Order name: IV Saline Lock; Complete Time: 16:28 gb1 12/07 14:38 Order name: Labs collected and sent; Complete Time: 16:28 gb1 12/07 16:43 Order name: Labs - recollect needed: recollect green top; Complete Time: 18:01 1 12/07 17:41 Order name: Labs - recollect needed: recollect green top again; Complete Time: 18:46 bd Administered Medications: 18:01 Drug: Ketorolac IVP 30 mg IVP once Route: IVP; Site: right antecubital; ph 18:46 Follow up: Response: No adverse reaction ph Disposition Summary: 12/07/24 19:04 Discharge Ordered Notes: Location: Home alonso Problem: chronic alonso Symptoms: are unchanged alonso Condition: Stable alonso Diagnosis - Abdominal pain, Generalized alonso Followup: gb1 - With: Private Physician - When: - Reason: Recheck today's complaints, Re-evaluation by your physician Discharge Instructions: - Discharge Summary Sheet gb1 - Abdominal Pain, Adult, [id number] gb1 - Abdominal Bloating gb1 Forms: - Medication Reconciliation Form alonso - Antibiotic Education alonso - Prescription Opioid Use alonso - Patient Portal Instructions [facility] - Leadership Thank You Letter [facility] Prescriptions: - dicyclomine 10 mg Oral capsule - take 1 capsule ORAL route 3 times per day; 30 capsule; Refills: 0, Product gb1 Selection Permitted Signatures: Dispatcher [employer] EDAdriana Resendiz Corey, MD MD cha Williams, Irene, RN RN Shayy Baires RN RN ph Good Shi RN RN [facility] Kassi Mcdonnell MD MD gb1 Corrections: (The following items were deleted from the chart) 14:39 14:39 CBC+H.LAB.BRZ ordered. EDMS EDMS 14:39 14:39 COMPREHENSIVE METABOLIC PANEL+C.LAB.BRZ ordered. EDMS EDMS 14:39 14:39 LIPASE+C.LAB.BRZ ordered. EDMS EDMS 14:39 14:39 Test, Urine+UC.LAB.BRZ ordered. EDMS EDMS 14:39 14:39 Urinalysis+U.LAB.BRZ ordered. EDMS EDMS
[2024-12-07 20:36] VITALS: TEMP 98.4; O2SAT 100
[2024-12-07 20:39] VITALS: BP 125/85
== END 2024-12-07 20:11 | disposition home or self-care (01) ==
LOC: ER 14:24
DX: R10.84 Generalized abdominal pain (principal); Z72.0 Tobacco use
CPT/HCPCS: 36415; 74177; 80053; 81001; 81025; 83690; 85025; Q9967